=== PATIENT | female | born 1960 | race Caucasian/White ===

== ENCOUNTER 2022-10-11 15:02 | Outpatient (OUT) | payer MEDICARE, MEDICAID, SELFPAY | END 2022-10-11 15:03 | LOC: WC 15:02 | PROVIDERS: PCP Physician Assistant; Visit Provider Physician Assistant | DX: L97.812 Non-pressure chronic ulcer of other part of right lower leg with fat layer exposed (principal); L97.822 Non-pressure chronic ulcer of other part of left lower leg with fat layer exposed | CPT/HCPCS: 99213; A6213; G0463 ==

== ENCOUNTER 2022-11-08 14:41 | Outpatient (OUT) | payer MEDICARE, MEDICAID, SELFPAY | END 2022-11-08 14:42 | disposition home or self-care (01) | LOC: WC 14:41 | PROVIDERS: PCP Physician Assistant; Visit Provider Physician Assistant | DX: L97.822 Non-pressure chronic ulcer of other part of left lower leg with fat layer exposed (principal) | CPT/HCPCS: A6213; G0463 ==

== ENCOUNTER 2022-11-30 15:06 | Outpatient (OUT) | payer MEDICARE, MEDICAID, SELFPAY | END 2022-11-30 15:07 | disposition home or self-care (01) | LOC: WC 15:06 | PROVIDERS: PCP Physician Assistant; Visit Provider Podiatrist Foot & Ankle Surgery | DX: R60.0 Localized edema (principal); L97.822 Non-pressure chronic ulcer of other part of left lower leg with fat layer exposed | CPT/HCPCS: A6213; G0463 ==

== ENCOUNTER 2023-01-17 14:56 | Outpatient (OUT) | payer MEDICARE, MEDICAID, SELFPAY | END 2023-01-17 14:57 | disposition home or self-care (01) | LOC: WC 14:56 | PROVIDERS: PCP Physician Assistant; Visit Provider Physician Assistant | DX: R60.0 Localized edema (principal) | CPT/HCPCS: G0463 ==

== ENCOUNTER 2023-02-24 15:21 | Outpatient (OUT) | payer MEDICARE, MEDICAID, SELFPAY | END 2023-02-24 15:22 | disposition home or self-care (01) | LOC: WC 15:21 | PROVIDERS: PCP Physician Assistant; Visit Provider Physician Assistant | DX: E11.621 Type 2 diabetes mellitus with foot ulcer (principal); L97.522 Non-pressure chronic ulcer of other part of left foot with fat layer exposed | CPT/HCPCS: G0463 ==

== ENCOUNTER 2023-03-04 13:34 | Outpatient (REF) | payer MEDICARE, MEDICAID, SELFPAY ==
[2023-03-04 14:03] LABS: Bilirubin Urine NEGATIVE (NEGATIVE); Blood Urine TRACE-I (NEGATIVE); Clarity Urine SLIGHTLY CLOUDY (CLEAR); Color Urine LT. YELLOW (YELLOW); Glucose Urine UA 500 mg/dL (NEGATIVE); Ketones Urine NEGATIVE (NEGATIVE); Leukocyte Esterase Urine MODERATE (NEGATIVE); Nitrite Urine NEGATIVE (NEGATIVE); Protein Urine 30 mg/dL (NEG/TRACE); Urobilinogen Urine 0.2 EU/dL (0.2-1.0)
[2023-03-04 14:04] LABS: Urine Microscopic Indicated YES
[2023-03-04 14:12] LABS: Bacteria Urine SMALL #/HPF (NONE SEEN); Cast Seen? NONE SEEN #/LPF (NONE SEEN); Crystals Seen? None Seen #/HPF (None Seen); Mucus Urine NONE SEEN (NONE SEEN); RBC Urine 0-2 #/HPF (0-2); Squamous Epithelial Cell Urine RARE #/LPF (NONE/RARE); Urine Culture Indicated YES
== END 2023-03-04 13:35 | disposition home or self-care (01) ==
LOC: LAB 13:34
PROVIDERS: PCP Physician Assistant
DX: R82.998 Other abnormal findings in urine (principal)
CPT/HCPCS: 81001; 87086

== ENCOUNTER 2023-04-04 15:04 | Outpatient (OUT) | payer MEDICARE, MEDICAID, SELFPAY | END 2023-04-04 15:05 | disposition home or self-care (01) | LOC: WC 15:05 | PROVIDERS: PCP Physician Assistant; Visit Provider Physician Assistant | DX: R60.0 Localized edema (principal) | CPT/HCPCS: G0463 ==

== ENCOUNTER 2023-06-28 13:50 | Outpatient (OUT) | payer MEDICARE, MEDICAID, SELFPAY ==
[2023-06-30 14:09] LABS: QuantiFERON-TB Gold Plus Negative (Negative)
== END 2023-06-28 13:51 | disposition home or self-care (01) ==
LOC: LAB 13:50
DX: Z79.899 Other long term (current) drug therapy (principal)
CPT/HCPCS: 36415; 86480

== ENCOUNTER 2023-06-28 13:56 | Outpatient (OUT) | payer MEDICARE, MEDICAID, SELFPAY ==
[2023-06-28 14:25] LABS: Hematocrit 48.2 % (36.0-48.0); Hemoglobin 15.1 g/dL (12.0-16.0); Mean Corpuscular HGB Conc 31.3 g/dL (29.9-35.2); Mean Corpuscular Hemoglobin 32.2 pg (26.7-34.0); Mean Corpuscular Volume 102.8 fL (81.0-99.0); Mean Platelet Volume 8.4 fL (9.5-13.5); Platelet Count 202 10^3/uL (150-450); Red Blood Count 4.69 10^6/uL (4.20-5.40); Red Cell Distribution Width 13.5 % (11.0-15.0); White Blood Count 7.2 10^3/uL (4.0-11.0)
[2023-06-28 14:26] LABS: Bilirubin Urine NEGATIVE (NEGATIVE); Blood Urine NEGATIVE (NEGATIVE); Clarity Urine SL CLOUDY (CLEAR); Color Urine YELLOW (YELLOW); Glucose Urine UA 250 mg/dL (NEGATIVE); Ketones Urine NEGATIVE (NEGATIVE); Leukocyte Esterase Urine TRACE (NEGATIVE); Nitrite Urine NEGATIVE (NEGATIVE); Protein Urine 30 mg/dL (NEG/TRACE); Specific Gravity Urine >=1.030 (1.005-1.025); Urobilinogen Urine 0.2 EU/dL (0.2-1.0); pH Urine 5.5 (5.0-9.0)
[2023-06-28 14:33] LABS: Creatinine Urine Random 166.12 mg/dL (20.00-300.00); Protein Creatinine Ratio Urine 0.36
[2023-06-28 14:37] LABS: Bacteria Urine MODERATE #/HPF (NONE SEEN); Calcium Oxalate Crystals Urine RARE; Crystals Seen? Seen #/HPF (None Seen); Mucus Urine NONE SEEN (NONE SEEN); RBC Urine 0-2 #/HPF (0-2); Squamous Epithelial Cell Urine FEW #/LPF (NONE/RARE)
[2023-06-28 14:38] LABS: Cast Seen? NONE SEEN #/LPF (NONE SEEN)
[2023-06-28 14:51] LABS: Albumin Level 3.1 g/dL (3.4-5.0); Anion Gap 11.5; Calcium 8.8 mg/dL (8.5-10.1); Carbon Dioxide 30.2 mmol/L (21.0-32.0); Chloride 103 mmol/L (98-107); Estimated GFR (African America 59 (>=60); Estimated GFR (Non-African Ame 49 (>=60); Glucose 173 mg/dL (74-106); Magnesium 1.8 mg/dL (1.8-2.4); Phosphorus 4.4 mg/dL (2.6-4.7); Potassium 3.7 mmol/L (3.5-5.1); Sodium 141 mmol/L (136-145); Uric Acid 5.3 mg/dL (2.6-6.0)
[2023-06-29 12:10] LABS: PTH, Intact 31 pg/mL (15-65)
== END 2023-06-28 13:57 | disposition home or self-care (01) ==
LOC: LAB 13:57
PROVIDERS: Visit Provider Internal Medicine
DX: Z79.899 Other long term (current) drug therapy (principal); N18.30 Chronic kidney disease, stage 3 unspecified; E11.22 Type 2 diabetes mellitus with diabetic chronic kidney disease; I12.9 Hypertensive chronic kidney disease with stage 1 through stage 4 chronic kidney disease, or unspecified chronic kidney disease; N25.81 Secondary hyperparathyroidism of renal origin; E78.5 Hyperlipidemia, unspecified; R80.9 Proteinuria, unspecified
CPT/HCPCS: 36415; 80069; 81001; 82306; 82570; 83735; 83970; 84156; 84550; 85027; 86480

== ENCOUNTER 2023-10-27 05:37 | Emergency (ER) | payer MEDICARE, MEDICAID, SELFPAY ==
[2023-10-27] VITALS (45 sets, daily range): BP systolic 71–116; BP diastolic 45–97; PULSE 83–114; TEMP 37.2–37.4; O2SAT 76–94; BMI 53.7
--- NOTE | 2023-10-27 05:46 | ECG_ITS ---
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
--- NOTE | 2023-10-27 06:32 | US_ITS ---
[place] [id number] Patient Name: FELISHA DIALLO MRN: [id number] date: 1960 Sex: F Assigned Patient Location: ED.MAIN Current Patient Location: ER Accession/Order Number: [id number] Exam Date: 10/27/2023 07:00 Report Date: 10/27/2023 08:23 At the request of: KUNAL MOSLEY Procedure: US venous doppler LE RT EXAM: US venous doppler LE RT HISTORY: RLE swelling, pain COMPARISON: None. TECHNIQUE: Grayscale, color and Doppler FINDINGS: Region: Right leg Thrombus: None Flow: Normal Compressibility: Normal Augmentation: Normal Other: Extensive subcutaneous edema US/US venous doppler LE RT IMPRESSION: No deep or superficial vein thrombus in the right leg Electronically authenticated by: ALTAGRACIA ANN Date: 10/27/2023 08:23
--- NOTE | 2023-10-27 06:32 | US_ITS ---
The [place] [id number] Patient Name: FELISHA DIALLO MRN: [id number] date: 1960 Sex: F Assigned Patient Location: ED.MAIN Current Patient Location: ER Accession/Order Number: [id number] Exam Date: 10/27/2023 07:00 Report Date: 10/27/2023 08:24 At the request of: KUNAL MOSLEY Procedure: US arterial duplex LE LT EXAMINATION: US arterial duplex LE LT HISTORY: LLE pain, decreased pulse COMPARISON: No relevant comparison available. TECHNIQUE: Color duplex Doppler ultrasound evaluation analysis was performed in the usual manner. FINDINGS: Limited by patient body habitus Normal triphasic waveform throughout the right leg with no delayed systolic upstroke and no spectral broadening. Flow velocities range from 129 cm/s peak systolic in the common femoral artery to 31 cm/s in the distal posterior tibial artery No flow significant stenosis occlusion or aneurysm US/US arterial duplex LE LT IMPRESSION: No arterial abnormality observed Electronically authenticated by: ALTAGRACIA ANN Date: 10/27/2023 08:24
--- NOTE | 2023-10-27 06:33 | ED.FALL1 ---
HPI HPI - Fall General Chief Complaint: Fall Stated Complaint: fall Time Seen by Provider: 10/27/23 05:40 Source: patient Mode of arrival: ambulance Limitations: physical limitation History of Present Illness HPI Narrative: This 63-year-old female who is morbidly obese and a diabetic and lives alone who gets help from her neighbors is brought to the emergency department by EMS from home. The patient had 3 falls over the course of the evening. She states that the first time she fell she called EMS and they were able to get her back into her chair and she declined coming to the emergency department. The second time she fell she was able to get herself back up and the third time she fell she was again unable to get herself up and EMS was called again and she was brought to the emergency department. She states that she slid out of her chair because it was positioned wrong in the living room and it was unable to recline. She slipped down onto the stool of the chair and then fell off of the chair striking her head. She states that she gets around her house with a motorized wheelchair. She has recently been incontinent of urine. She is diabetic. Her neighbor comes and wraps her legs because she helps her at home and is a nurse. The patient states that during the course of the night she was having shaking chills and unable to get warm. She was trying to get to a thermometer when she fell. She denies any headache or neck pain. She is thirsty. She has had extensive abdominal surgery in the past with an abdominoplasty with complication and additional surgery. She has no nausea or vomiting at this time but occasionally has diarrhea. The patient's right lower extremity is markedly warm to the touch, erythematous and much larger than the left lower extremity. She states that she does have hidradenitis of the inguinal area and is on antibiotics for that. She also has neuropathy and has difficult time feeling her feet. She has a callus with an open area on the base of the right fifth metatarsal, plantar aspect. Her left lower extremity is markedly smaller than the right lower extremity and the foot is poorly sensate and cool to the touch. The patient also had vulvar cancer and has had radiation therapy to this area. Related Data Home Medications ?Medication ?Instructions ?Recorded ?Confirmed adalimumab 40 mg/0.4 mL 80 mg subcut Q12D 10/27/23 10/27/23 subcutaneous pen kit (Humira(CF) Pen) albuterol sulfate 90 mcg/actuation inhalation 10/27/23 aerosol inhaler alprazolam 0.5 mg tablet 0.5 mg PO BID 10/27/23 10/27/23 dapagliflozin propanediol 5 mg 5 mg PO .once daily 10/27/23 10/27/23 tablet (Farxiga) famotidine 20 mg tablet 20 mg PO Q12H 10/27/23 10/27/23 fluconazole 150 mg tablet 150 mg PO 10/27/23 fluticasone 500 mcg-salmeterol 50 1 inh inhalation Q12H 10/27/23 10/27/23 mcg/dose blistr powdr for inhalation fluticasone propionate 50 1 spray intranasal Q12H 10/27/23 10/27/23 mcg/actuation nasal spray,suspension gabapentin 300 mg capsule 300 mg PO TID 10/27/23 10/27/23 glipizide 10 mg tablet, extended 10 mg PO BID 10/27/23 10/27/23 release 24 hr insulin glargine 100 unit/mL (3 65 unit subcut 10/27/23 mL) subcutaneous pen (Lantus Solostar U-100 Insulin) lamotrigine 100 mg tablet 100 mg PO Q12H 10/27/23 10/27/23 montelukast 10 mg tablet 10 mg PO .once a day 10/27/23 10/27/23 rosuvastatin 10 mg tablet 10 mg PO .once daily 10/27/23 10/27/23 sulfamethoxazole 400 1 tab PO BID 10/27/23 10/27/23 mg-trimethoprim 80 mg tablet tirzepatide 10 mg/0.5 mL 10 mg subcut 10/27/23 subcutaneous pen injector (Senthil) tolterodine 4 mg capsule,extended 4 mg PO .once dailly 10/27/23 10/27/23 release 24 hr topiramate 200 mg tablet 100 mg PO BID 10/27/23 10/27/23 triamcinolone acetonide 0.1 % applic topical 10/27/23 topical cream venlafaxine 150 mg 150 mg PO BID 10/27/23 10/27/23 capsule,extended release 24 hr Allergies Allergy/AdvReac Type Severity Reaction Status Date / Time erythromycin base Allergy Intermediate swelling Verified 10/27/23 05:43 Opioid HPI Opioid Management Most Recent Pain and Opioid Data: No Data to Display Review of Systems ROS Status of ROS 10 or more systems reviewed and unremarkable except as noted in history and below Exam Narrative Exam Narrative: Vital signs and Nursing Notes reviewed: She is febrile, tachycardic, blood pressure is normal with a high diastolic blood pressure of 97 and pulse ox is moderately low at 92% on room air General: Awake, alert, oriented, morbidly obese female, GCS 15, no respiratory distress HEENT: Normocephalic atraumatic, mucous membranes are moist and dry, posterior pharynx is normal in appearance. Neck: Supple, no meningeal signs, no anterior or posterior cervical lymphadenopathy Chest: Lungs are clear to auscultation with good air entry, there is no wheezing rhonchi or rales appreciated no accessory muscle use, patient is speaking in complete sentences-no chest wall tenderness to palpation CVS: Regular rate and rhythm, tachycardic at 111 upon arrival, pulses are brisk and equal in the upper extremities ABD: Obese, soft, nondistended, there is a large pendulous pannus in the perineal area which is warm but nontender. I do not appreciate any necrotizing fasciitis in this area or in the labia or surrounding urethra- houser catheter was placed by the nursing staff with my assistance Extremities: The right lower extremity is tender from the thigh to the lower leg with marked erythema, no crepitus appreciated, there is swelling of the foot which is red, the toes are red and nontender. There is a callus on the plantar aspect of the right foot at the base of the fifth metatarsal that is open but not draining. The left lower extremity has diminished sensation and is cool to the touch. Patient is able to wiggle her toes. Posterior tibialis pulses were able to be doppled. Skin: Redness of the right lower extremity as described above, no petechia or purpura noted Neuro: No focal deficits Constitutional Vital Signs, click to edit/add: Last Vital Signs Temp 99.3 F 10/27/23 05:39 Pulse 111 H 10/27/23 05:39 Resp 20 10/27/23 05:39 BP 114/97 H 10/27/23 05:39 Pulse Ox 92 L 10/27/23 05:39 O2 Del Method Room Air 10/27/23 05:39 Course Vital Signs Vital signs: Vital Signs Temperature 99.3 F 10/27/23 05:39 Pulse Rate 111 H 10/27/23 05:39 Respiratory Rate 20 10/27/23 05:39 Blood Pressure 114/97 H 10/27/23 05:39 Pulse Oximetry 92 L 10/27/23 05:39 Oxygen Delivery Method Room Air 10/27/23 05:39 Temperature 99.3 F 10/27/23 05:39 Pulse Rate 111 H 10/27/23 05:39 Respiratory Rate 20 10/27/23 05:39 Blood Pressure 114/97 H 10/27/23 05:39 Pulse Oximetry 92 L 10/27/23 05:39 Oxygen Delivery Method Room Air 10/27/23 05:39 MDM - Fall ECG Data Attestation: I personally reviewed and interpreted this ECG as follows: (Atrial rhythm at 107 bpm, left axis deviation, nonspecific ST changes, no acute ST segment elevation or T wave inversion) Discharge Plan Discharge Chief Complaint: Fall Clinical Impression: Accidental fall from chair, Cellulitis of left leg Patient Disposition: Still a Patient Prescriptions / Home Meds: No Action dapagliflozin propanediol [Farxiga] 5 mg tablet 5 mg PO .once daily famotidine 20 mg tablet 20 mg PO Q12H fluconazole 150 mg tablet 150 mg PO fluticasone propion-salmeterol 500-50 mcg/dose blister with device 1 inh INHALATION Q12H fluticasone propionate 50 mcg/actuation spray,suspension 1 spray INTRANASAL Q12H gabapentin 300 mg capsule 300 mg PO TID glipizide 10 mg tablet extended release 24hr 10 mg PO BID insulin glargine [Lantus Solostar U-100 Insulin] 100 unit/mL (3 mL) insulin pen 65 unit SUBCUT lamotrigine 100 mg tablet 100 mg PO Q12H montelukast 10 mg tablet 10 mg PO .once a day rosuvastatin 10 mg tablet 10 mg PO .once daily sulfamethoxazole-trimethoprim 400-80 mg tablet 1 tab PO BID Mounjaro 10 mg/0.5 mL pen injector 10 mg SUBCUT tolterodine 4 mg capsule,extended release 24hr 4 mg PO .once dailly topiramate 200 mg tablet 100 mg PO BID venlafaxine 150 mg capsule,extended release 24hr 150 mg PO BID triamcinolone acetonide 0.1 % cream TOPICAL Humira(CF) Pen 40 mg/0.4 mL pen injector kit 80 mg SUBCUT Q12D alprazolam 0.5 mg tablet 0.5 mg PO BID albuterol sulfate 90 mcg/actuation HFA aerosol inhaler INHALATION Print Language: Bol[place]ian Referrals: SARA VALENTINO [Primary Care Provider] - 1 week
--- OUTSIDE RECORDS SUMMARY | 2023-10-27 06:34 | XMS_ITS | CCD ---
Author Organization [facility] Care Team Providers Care Fishing Tool Operator Name Role Phone LAURO BRODIE Sonu Unavailable Unavailable ELI HUNTER Unavailable Unavailable KAMIREDDY, ADIREDDY Unavailable Unavailable AHMAIndu SHOWKAT Unavailable Unavailable LISA TRAN K Unavailable Unavailable KAMIREDDY, ADIREDDY Unavailable Unavailable AVASTHI DESTINEE Unavailable Unavailable DABOUL, ISAM Unavailable Unavailable Sarah Valentino Primary Care Provider Jarret Peterson Admit Provider Jarret Peterson Attending Provider [phone] Nellie Gilbert Unavailable Elissa, Hetal Unavailable MD Sarah Valentino Primary Care Provider [phone] MD Julián Ortiz Attending Provider Unavailable Primary Care Provider UnavailSarah Adair MD Primary Care Provider Baldemar Lu III Unavailable [phone] Elissa, Hetal Unavailable George CASTRO, Tamie A Unavailable Sarah Valentino MD Primary Care Provider [phone] Baldemar Lu III Unavailable Elissa, Hetal Unavailable George CASTRO, Tamie A Unavailable Unavailable Primary Care Provider UnavailGracia METCALF, Lesia Unavailable Unavailable PROVIDER, UNKNOWN Attending Unavailable PROVIDER, UNKNOWN Admitting Unavailable Sarah Valentino Primary Care Unavailable Julián Ortiz Admitting Unavailable Julián Ortiz Attending Unavailable Julián Ortiz Attending Unavailable Ortiz, Julián Admitting Unavailable Valentino, Sarah Primary Care Unavailable Julián Ortiz Attending Unavailable Ortiz, Julián Admitting Unavailable Valentino, Sarah Primary Care Unavailable GRETCHEN CURRY Attending Unavailable ANTOINETTE, GRETCHEN Admitting Unavailable VALENTINO, SARAH Primary Care Unavailable HIGHLANDER, PETER D Attending Unavailable HIGHLANDER, PETER D Admitting Unavailable VALENTINO, SARAH Primary Care Unavailable VALENTINO, SARAH Primary Care Unavailable VALENTINO, SARAH Consulting Unavailable VALENTINO, SARAH Attending Unavailable VALENTINO, SARAH Admitting Unavailable ELISSA, HETAL Admitting Unavailable ELISSA, HETAL Consulting Unavailable ELISSA, HETAL Attending Unavailable VALENTINO, SARAH Primary Care Unavailable VALENTINO, SARAH Primary Care Unavailable ELISSA, HETAL Consulting Unavailable ELISSA, HETAL Attending Unavailable ELISSA, HETAL Admitting Unavailable HIGHLANDER, PETER D Attending Unavailable VALENTINO, SARAH Primary Care Unavailable HIGHLANDER, PETER D Admitting Unavailable VALENTINO, SARAH Primary Care Unavailable HIGHLANDER, PETER D Attending Unavailable HIGHLANDER, PETER D Admitting Unavailable VALENTINO, SARAH Primary Care Unavailable HIGHLANDER, PETER D Attending Unavailable HIGHLANDER, PETER D Admitting Unavailable HIGHLANDER, PETER D Attending Unavailable HIGHLANDER, PETER D Admitting Unavailable VALENTINO, SARAH Primary Care Unavailable HIGHLANDER, PETER D Attending Unavailable HIGHLANDER, PETER D Admitting Unavailable VALENTINO, SARAH Primary Care Unavailable VALENTINO, SARAH Primary Care Unavailable KIMBERLI CURRYLY Admitting Unavailable ANTOINETTE, GRETCHEN Attending Unavailable VALENTINO, SARAH Primary Care Unavailable HIGHLANDER, PETER D Attending Unavailable HIGHLANDER, PETER D Admitting Unavailable HIGHLANDER, PETER D Admitting Unavailable HIGHLANDER, PETER D Attending Unavailable VALENTINO, SARAH Primary Care Unavailable VALENTINO, SARAH Primary Care Unavailable LIAT Taveras, DR HIDALGO Consulting Unavailable LIAT ., DR HIDALGO Attending Unavailable LIAT ., DR HIDALGO Admitting Unavailable HEMANT MADRID Admitting Unavailable HEMANT MADRID Attending Unavailable VALENTINO, SARAH Primary Care Unavailable BEVERLEY, DR ERNIE Fontaine Consulting Unavailable PAM .HEMANT Consulting Unavailable VALENTINO, SARAH Primary Care Unavailable HIGHLANDER, PETER D Attending Unavailable HIGHLANDER, PETER D Admitting Unavailable PAM ., HEMANT Attending Unavailable VALENTINO, SARAH Primary Care Unavailable PAM ., HEMANT Admitting Unavailable ROYCE ROSENTHAL Consulting Unavailable VALENTINO, SARAH Primary Care Unavailable EVEN[place]ILLE, DR ALTAGRACIA Car Consulting Unavailable WEST, DR ALTAGRACIA Car Attending Unavailable WEST, DR ALTAGRACIA Car Admitting Unavailable DAVION MAURICE Consulting Unavailable MARIANA ZAMORA Attending Unavailab le MARIANA ZAMORA Referring Unavailab le VALENTINO, SARAH Primary Care Unavailable MARIANA ZAMORA Referring Unavailab le VALENTINO, [facility] Primary Care Unavailable MARIANA ZAMORA Attending Unavailab le MARIANA ZAMORA Attending Unavailab le MARIANA ZAMORA Referring Unavailab saloni VALENTINO, [facility] Primary Care Unavailable Chelsy CANALES, Sarah Primary Care Provider HETAL BOWERS Attending Unavailable HETAL BOWERS Admitting Unavailable ELI HUNTER Referring Unavailable Chelsy CANALES [facility] Provider [phone] Hetal Bowers MD Unavailable Sarah Valentino MD Unavailable Sarah Valentino MD Primary Care Provider SARAH VALENTINO Attending Unavailable SARAH VALENTINO Attending Unavailable MAURO BATES Attending Unavailable MAURO BATES Attending Unavailable SARAH VALENTINO Attending Unavailable Chelsy CANALES Sarah Primary [facility] Provider MARIANA ZAMORA Attending Unavailab saloni VALENTINO SARAH Primary Care Unavailable MARIANA ZAMORA Attending Unavailab saloni VALENTINO, SARAH Primary Care Unavailable BENNIE PAYNE Attending Unavailable CHELSY SARAH Primary Care Unavailable MARIANA ZAMORA Attending Unavailab saloni VALENTINO SARAH Primary Care Unavailable MARIANA ZAMORA Attending Unavailab saloni VALENTINO [facility] Primary Care Unavailable Allergies Allergy Classification Reported Allergen(s) Allergy Type Date of Onset Reaction(s) Facility Doxycycline (1 source) Doxycycline Drug Allergy 10-20-19 21 Unknown Reaction [facility] Unclassified (5 sources) erythromycin base; Translations: [erythromycin base] Allergy to substance 10-20-19 Unknown Reaction [facility] (7 sources) Corticosteroids Propensity to adverse reactions Hallucinations , heart race [facility] Other (20 sources) Doxycycline; Translations: [DOXYCYCLINE] Drug Allergy 10-20-19 Other: See Comments, Swelling [facility] (9 sources) Erythromycin; Translations: [erythromycin] Drug Allergy 05-13-19 18 Swelling [facility] Repository (20 sources) Azithromycin; Translations: [AZITHROMYCIN] Drug Allergy 07-19-19 21 Unknown [facility] (20 sources) Glucocorticoid preparation; Translations: [CORTICOSTEROIDS (GLUCOCORTICOIDS)] Drug Allergy 03-10-20 22 Unknown, Swelling [facility] (1 source) Doxycycline Drug Allergy 10-20-19 21 [facility] (1 source) Azithromycin Drug Allergy 07-19-19 [facility] (1 source) Corticosteroids Drug allergy (disorder) [facility] (1 source) Corticosteroids and derivatives Drug Intolerance 02-26-20 [facility] (1 source) House dust mite Allergy to substance 02-26-20 21 Unknown [facility] (1 source) Mold Extract Drug Allergy 02-26-20 Unknown [facility] (1 source) Prednisone Propensity to adverse reactions 09-22-19 23 [facility] (1 source) Erythorbic Acid Propensity to adverse reactions 05-27-19 15 Swelling [facility] Medications Current Medications Medication Drug Class(es) Dates Sig (Normalized) Sig (Original) acetaminophen 500 mg oral tablet (20 sources) Start: 02-02-2022 acetaminophen (TYLENOL) 500 mg tablet Acetaminophen Active 1500 MG PO Daily February 02, 2022 12:00am 0 02/02/2022 Active Start: 02-02-2022 take 1500 mg by mout h once daily Acetaminophen Active 1500 MG PO Daily February 02, 2022 12:00am acetaminophen (T ylenol) 325 MG tablet every 4 (four) hours. 0 Active take 3 tablets by mo uth twice daily as needed Acetaminophen 500 MG 3 tablet as needed Orally TWICE A DAY Active take 1 tablet by radha th every six hours as needed Acetaminophen 500 MG 1 tablet as needed Orally every 6 hrs Active Comment on above: Acetaminophen Active 1500 MG PO Daily February 02, 2022 12:00am acetaminophen 500 mg / diphenhydrAMINE hydrochloride 25 mg oral tablet (9 sources) Histamine-1 Receptor Antagonist Start: 2 take 2 tablets by mouth once daily at bedtime Diphenhydramine -Acetaminophen (Acetaminophen Pm) 25-500 mg Tablet Active 2 TAB PO Daily at bedtime February 02, 2022 12:00am Comment on above: 1 (one) time each da y at the same time. 0.4 ml adalimumab 100 mg/ml auto-injector (20 sources) Tumor Necrosis Factor Ezequiel Start: End: HUMIRA,CF, PEN 40 mg/0.4 mL pen kit Start: 10-19-2020 End: 02-02-2022 Adalimumab (Humira(Cf) Pen) 40 mg/0.4 mL pen injector kit Active 40 MG SUBCUT every week February 02, 2022 12:00am Takes on Tuesdays Humira Pen 40 MG /0.8ML as directed Subcutaneous ONCE A WEEK Active Humira Pen 40 MG /0.8ML as directed Subcutaneous Active Advair Diskus 100-50 MCG/DOSE (1 source) Advair Diskus 100-50 MCG/DOSE 1 Inhalation every 12 hrs Active Advair Diskus 500-50 MCG/DOSE (5 sources) take 1 puff(s) by inhalation twice daily Advair Diskus 500-50 MCG/DOSE 1 puff Inhalation Twice a day Active [id number] 200 actuat albuterol 0.09 mg/actuat metered dose inhaler (20 sources) beta2-Adrenergic Agonist Start: 02-02-2022 Albuterol Sulfate Active 1 INH INHALATION Q4H February 02, 2022 12:00am Start: 01-11-2022 albuterol HFA (PROVENTIL HFA, VENTOLIN HFA) 90 mcg/actuation inhaler albuterol (5 MG/ ML) 0.5% nebulizer solution as directed Inhalation 0 Active take 2 puff(s) by mo uth every four hours as needed albuterol HFA 90 mcg/act inhaler Inhale 2 puffs by mouth every 4 hours as needed. for 16 0 Active Ventolin HFA 108 (90 Base) MCG/ACT 1 puff Inhalation prn Active albuterol 0.833 mg/ml / ipratropium bromide 0.167 mg/ml inhalation solution (4 sources) Anticholinergic, beta2-Adrenergic Agonist Start: 05-17-2016 ipratropium-albuterol (DUONEB) 0.5 mg-3 mg(2.5 mg base)/3 mL nebu q 6 HR. 0 05/17/2016 Active Comment on above: q 6 HR. Albuterol 90 MCG/ACT (7 sources) take 1 puff(s) by inhalation every four hours Albuterol 90 MCG/ACT 1 puff Inhalation every 4 hrs Active ALPRAZolam 0.5 mg oral tablet (20 sources) Benzodiazepine Start: 01-09-2013 ALPRAZolam (XANAX) 0.5 mg tablet chlorhexidine gluconate 40 mg/ml medicated liquid soap (4 sources) Start: 12-07-2022 chlorhexidine (HIBICLENS) 4 % external liquid Lather onto affected areas on the body and rinse, avoid face, once a week in the shower 0 12/07/2022 Active Start: 12-07-2022 chlorhexidine (Hibiclens) 4 % external liquid Indications: Hidradenitis suppurativa Lather onto affected areas on the body and rinse, avoid face, once a week in the shower 473 mL 11 12/07/2022 Active Comment on above: Lather onto affected areas on the body and rinse, avoid face, once a week in the shower dapagliflozin 5 mg oral tablet (10 sources) Sodium-Glucose Cotransporter 2 Inhibitor Start: 04-29-20 End: 04-23-20 take 1 tablet by mouth in the morning dapagliflozin (Farxiga) 5 MG Indications: Type 2 diabetes mellitus with diabetic neuropathic arthropathy, with long-term current use of insulin (CMS/HCC) Take 1 tablet (5 mg) by mouth in the morning. 90 tablet 3 04/29/2023 04/23/2024 Active Start: 02-02-2022 End: 03-18-2022 FARXIGA 5 mg tablet docusate sodium 100 mg oral capsule (4 sources) Start: 09-22-2022 take 1 capsule by mouth once daily as needed docusate sodium (COLACE) 100 mg capsule Take 1 capsule by mouth once daily as needed. 0 09/22/2022 Active Comment on above: Take 1 capsule by mo uth once daily as needed. ergocalciferol 1.25 mg oral capsule (7 sources) Provitamin D2 Compound Start: 01-25-2022 take 1 capsule by mouth every week Ergocalciferol 1.25 MG (82004 UT) 1 capsule Orally Q week for 90 day(s) Dec, Active famotidine 20 mg oral tablet (20 sources) Histamine-2 Receptor Antagonist Start: 02-25-2022 famotidine (PEPCID) 20 mg tablet Start: 10-30-2020 take 20 mg by mouth twice fercho y Famotidine Active 20 MG PO Twice daily 60 October 30, 2020 12:00am take 1 tablet by radha th every twenty-four hours Famotidine 20 MG 1 tablet at bedtime as needed Orally Once a day Active fluconazole 150 mg oral tablet (20 sources) Azole Antifungal Start: 04-07-2023 End: 10-20-2023 take 1 tablet by mouth every week fluconazole (Diflucan) 150 MG tablet Indications: Hidradenitis suppurativa Take 1 tablet (150 mg) by mouth 1 (one) time per week 4 tablet 6 04/07/2023 10/20/2023 Active Start: 02-25-2022 fluconazole (D IFLUCAN) 100 mg tablet one time a week. 0 02/25/2022 Active Start: 02-02-2022 take 1 tablet by radha th twice daily Fluconazole (Diflucan) 100 mg tablet Active 100 MG PO 2 times daily February 02, 2022 11:46am takes on Sundays Start: 10-30-2020 End: 02-02-2022 Fluconazole (Diflucan) 100 m g Tablet Discontinued 100 MG PO As Directed October 30, 2020 1:21pm February 02, 2022 11:46am take once daily for two weeks then go back to once a week until your aerologist change it Start: 01-14-2017 End: 10-30-2020 take 1 tablet by mouth every week Fluconazole (Diflucan) 100 mg Tablet Discontinued 100 MG PO every week January 14, 2017 12:00am October 30, 2020 1:21pm take 1 tablet by radha th every week Diflucan 150 MG 1 tablet Orally ONCE A WEEK Active take 1 tablet by radha th once daily as needed Diflucan 150 MG 1 tablet Orally ONCE A DAY X 7 DAY NEEDED Active Comment on above: one time a week. fluticasone propionate 0.05 mg/actuat metered dose nasal spray (20 sources) Corticosteroid Start: 01-20-2023 take 2 spray(s) nasal route once daily fluticasone (Flonase) 50 MCG/ACT nasal spray Indications: Seasonal allergic rhinitis, unspecified trigger Instill 2 sprays in each nostril once daily. 15.8 mL 11 01/20/2023 Active Start: 02-16-2022 fluticasone (F LONASE) 50 mcg/actuation nasal spray Start: 12-01-2012 take 2 spray(s) nasa l route once daily Flonase 50 MCG/ACT 2 sprays Nasally Once a day for 30 day(s) Nov, Active 60 actuat fluticasone propionate 0.5 mg/actuat / salmeterol 0.05 mg/actuat dry powder inhaler (20 sources) Corticosteroid, beta2-Adrenergic Agonist Start: 06-02-2023 End: 07-02-2023 take 1 puff(s) by inhalation once Fluticasone-Salmeterol (Advair Diskus) 500-50 MCG/ACT aerosol powder Indications: Asthma Inhale 1 puff every 12 (twelve) hours 1 each 06/02/2023 07/02/2023 Active Start: 02-16-2022 fluticasone-sa lmeterol (ADVAIR) 500-50 mcg/dose dsdv Start: 02-02-2022 Fluticasone Pr opion-Salmeterol (Advair Diskus) 500-50 mcg/dose Blister With Device Active 1 INH INHALATION Twice daily February 02, 2022 12:00am take 1 puff(s) by in halation twice daily Advair Diskus 500-50 MCG/DOSE 1 puff Inhalation Twice a day Active 30 actuat fluticasone furoate 0.1 mg/actuat / vilanterol 0.025 mg/actuat dry powder inhaler (2 sources) Corticosteroid, beta2-Adrenergic Agonist take 1 puff(s) by inhalation once daily Breo Ellipta 100-25 MCG/INH 1 puff Inhalation Once a day Active gabapentin 300 mg oral capsule (14 sources) Anti-epileptic Agent Start: 06-14-19 24 gabapentin (NEURONTIN) 300 mg capsule Start: 12-21-2022 take 1 capsule by mo [facility] three times daily gabapentin (Neurontin) 300 MG capsule Indications: Type 2 diabetes mellitus with neurological manifestation (CMS/HCC) Take 1 capsule by mouth three times daily. 90 capsule 10 12/21/2022 Active Start: 01-14-2017 take 300 mg by mouth every eight hours Gabapentin Active 300 MG PO Q8H January 14, 2017 12:00am glipiZIDE er 10 mg 24 hr extended release oral tablet (20 sources) Sulfonylurea Start: 05-24-2023 take 2 tablets by mouth once daily at breakfast glipiZIDE XL (Glucotrol XL) 10 MG 24 hr tablet Indications: Type 2 diabetes mellitus with neurological manifestation (CMS/HCC) Take 2 tablets by mouth once daily with breakfast. 180 tablet 2 05/24/2023 Active Start: 02-25-2022 glipiZIDE (GLU COTROL XL) 10mg 24 hr tablet Start: 02-02-2022 take 10 mg by mouth once daily Glipizide Active 10 MG PO Daily February 02, 2022 12:00am take 1 tablet by radha th twice daily 30 minutes before breakfast glipiZIDE 10 MG 1 tablet 30 minutes before breakfast Orally TWICE A DAY Active take 1 tablet by radha th once daily 30 minutes before breakfast glipiZIDE 5 MG 1 tablet 30 minutes before breakfast Orally Once a day Active 3 ml insulin glargine 100 unt/ml pen injector (20 sources) Insulin Analog Start: 05-23-2023 End: 08-21-2023 insulin glargine (Lantus SoloStar) 100 UNIT/ML pen Indications: Type 2 Diabetes Mellitus Inject 65 Units under the skin at bedtime 58.5 mL 0 05/23/2023 08/21/2023 Active Start: 03-05-2022 LANTUS SOLOSTA R U-100 INSULIN 100 unit/mL (3 mL) 65 Units. 0 03/05/2022 Active Start: 03-05-2022 LANTUS SOLOSTA R U-100 INSULIN 100 unit/mL (3 mL) 25 Units. 0 03/05/2022 Active Start: 03-05-2022 LANTUS SOLOSTA R U-100 INSULIN 100 unit/mL (3 mL) Lantus SoloStar 100 UNIT/ML as directed Subcutaneous 65 UNITS ONCE A DAY Active Lantus SoloStar 100 UNIT/ML as directed Subcutaneous 55 UNITS ONCE A DAY Active Comment on above: 25 Units. 65 Units. ipratropium bromide 0.2 mg/ml inhalation solution (3 sources) Anticholinergic Ipratropium Brom gabriella 0.02 % as directed Inhalation prn Active lamoTRIgine 25 mg oral tablet (20 sources) Mood Stabilizer, Anti-epileptic Agent Start: 02-16-2022 lamoTRIgine (LAMICTAL) 25 mg tablet Start: 01-14-2017 take 50-200 mg by mo ut twice daily Lamotrigine (Lamictal) 100 mg Tablet Active 50 - 200 MG PO Twice daily January 14, 2017 12:00am LaMICtal 100 MG tablet every 12 (twelve) hours. 0 Active 3 ml liraglutide 6 mg/ml pen injector (20 sources) GLP-1 Receptor Agonist Start: 02-22-2023 inject 1.8 mg by subcutaneous injection at bedtime Victoza 18 MG/3ML injection Indications: Type 2 diabetes mellitus with diabetic neuropathic arthropathy, with long-term current use of insulin (CMS/HCC) Inject 1.8 mg under the skin at bedtime. 27 mL 2 02/22/2023 Active Start: 10-19-2020 End: 07-08-2023 VICTOZA 3-NINFA 0.6 mg/0.1 mL (18 mg/3 mL) Start: 10-19-2020 Liraglutide (V ictoza 3-Ninfa) 0.6 mg/0.1 mL (18 mg/3 mL) pen injector Active 0.8 MG SUBCUT Daily October 19, 2020 12:00am meloxicam 15 mg oral tablet (15 sources) Nonsteroidal Anti-inflammatory Drug Start: 01-14-2017 End: 03-18-2022 take 15 mg by mouth once daily Meloxicam Active 15 MG PO Daily February 02, 2022 12:00am Comment on above: Take 15 mg by mouth. montelukast 10 mg oral tablet (20 sources) Leukotriene Receptor Antagonist Start: 01-14-2017 End: 05-27-2024 montelukast (SINGULAIR) 10 mg tablet polyethylene glycol 3350 10680 mg powder for oral solution (20 sources) Osmotic Laxative Start: 05-12-2022 polyethylene glycol 3350 (MIRALAX) 17 gram/dose powder Take 17 g by mouth once daily. Dissolve dose in 4 - 8 ounces of liquid and take as directed. 235 g 2 05/12/2022 Active Comment on above: Take 17 g by mouth o nce daily. Dissolve dose in 4 - 8 ounces of liquid and take as directed. rosuvastatin calcium 10 mg oral tablet (20 sources) HMG-CoA Reductase Inhibitor Start: 01-14-2017 End: 05-27-2024 rosuvastatin (CRESTOR) 10 mg tablet sodium bicarbonate 650 mg oral tablet (1 source) Start: 12-18-2020 take 1 tablet by mouth every eight hours Sodium Bicarbonate 650 MG 1 tab(s) Orally tid for 90 day(s) Nov, Active 24 hr tolterodine tartrate 4 mg extended release oral capsule (20 sources) Cholinergic Muscarinic Antagonist Start: 02-22-2023 take 1 capsule by mouth once daily tolterodine LA (Detrol LA) 4 MG 24 hr capsule Indications: Overactive bladder Take 1 capsule by mouth once daily. 30 capsule 10 02/22/2023 Active Start: 02-25-2022 tolterodine ER (DETROL LA) 4 mg 24 hr capsule Start: 10-19-2020 End: 10-30-2020 take 4 mg by mouth once daily Tolterodine Discontinued 4 MG PO Daily October 19, 2020 12:00am October 30, 2020 1:04pm topiramate 200 mg oral table t (20 sources) Start: 02-25-2022 topiramate (TO PAMAX) 200 mg tablet Start: 02-02-2022 take 100 mg by mouth twice daily Topiramate Active 100 MG PO Twice daily February 02, 2022 12:00am Start: 10-30-2020 End: 02-02-2022 take 1 tablet by mouth once daily Topiramate (Topamax) 200 mg Tablet Discontinued 200 MG PO Daily 0 October 30, 2020 12:19pm February 02, 2022 11:55am Start: 01-14-2017 End: 10-30-2020 take 1 tablet by mouth twice daily Topiramate (Topamax) 200 mg Tablet Discontinued 200 MG PO Twice daily January 14, 2017 12:00am October 30, 2020 1:04pm take 2 tablets by mo uth twice daily Topamax 50 mg 2 tabs orally Twice a day Active take 4 tablets by mo uth twice daily Topamax 50 mg 4 tabs orally Twice a day Active Tylenol PM Extra Strength 500-25 MG (4 sources) take 2 tablets by mouth once daily at bedtime as needed Tylenol PM Extra Strength 500-25 MG 2 tablet at bedtime as needed Orally Once a day for 30 day(s) Active 7 actuat umeclidinium 0.0625 mg/actuat dry powder inhaler (11 sources) Anticholinergic Start: 05-24-2023 take 1 puff(s) by mouth once daily Umeclidinium [place] (Incruse Ellipta) 62.5 MCG/ACT aerosol powder Indications: Chronic obstructive pulmonary disease, unspecified COPD type (CMS/[facility]) Inhale 1 puff by mouth once daily. 30 each 3 05/24/2023 Active Start: 01-14-2017 take 62.5 ug by inha lation every twenty-four hours Umeclidinium (Incruse Ellipta) 62.5 mcg/actuation Blister With Device Active 1 INH INHALATION Q24H January 14, 2017 3:33pm Start: 01-14-2017 take 1 puff(s) by in halation once daily umeclidinium (INCRUSE ELLIPTA) 62.5 mcg/actuation inhaler Inhale 1 Puff as instructed once daily. 0 01/14/2017 Active Start: 01-14-2017 take 62.5 ug by inha lation every twenty-four hours Umeclidinium (Incruse Ellipta) 62.5 mcg/actuation Blister With Device Active 1 INH INHALATION Q24H January 14, 2017 12:00am take 1 puff(s) by in halation once daily Incruse Ellipta 62.5 MCG/ACT 1 puff Inhalation Once a day Active Comment on above: Inhale 1 Puff as ins tructed once daily. 24 hr venlafaxine 150 mg extended release oral capsule (20 sources) Serotonin and Norepinephrine Reuptake Inhibitor Start: 02-25-2022 venlafaxine ER (EFFEXOR XR) 150 mg 24 hr capsule Start: 10-30-2020 End: 02-02-2022 take 1 capsule by mouth once daily Venlafaxine (Effexor Xr) 75 mg capsule,extended release 24hr Discontinued 75 MG PO Daily October 30, 2020 12:00am February 02, 2022 11:39am Start: 01-14-2017 End: 10-30-2020 take 1 capsule by mouth once daily Venlafaxine (Effexor Xr) 150 mg Capsule,Extended Release 24hr Discontinued 150 MG PO Daily January 14, 2017 12:00am October 30, 2020 1:04pm Start: 11-07-2007 take 1 capsule by mo [facility] twice daily Venlafaxine (Effexor Xr) 150 mg Capsule,Extended Release 24hr Active 150 MG PO Twice daily February 02, 2022 12:00am Completed/Discontinued Medications Medication Drug Class(es) Dates Sig (Normalized) Sig (Original) cephalexin 500 mg oral capsule (13 sources) Cephalosporin Antibacterial Start: 08-31-2022 End: 07-08-2023 cephALEXin (KEFLEX) 500 mg capsule Start: 03-04-2022 End: 03-18-2022 cephALEXin (KEFLEX) 500 mg c apsule clotrimazole 10 mg/ml topical cream (10 sources) Azole Antifungal Start: 04-26-2023 End: 07-08-2023 clotrimazole (LOTRIMIN) 1 % cream Apply topically to affected area three times daily as needed. 45 g 3 04/26/2023 07/08/2023 Discontinued Start: 04-26-2023 clotrimazole ( Lotrimin) 1 % cream Apply topically to affected area three times daily as needed. 0 04/26/2023 Active Start: 03-21-2023 End: 07-01-2023 clotrimazole 1 % oint Indica tions: Vulvar candidiasis Apply to affected area three times a day as needed. 56.7 g 3 06/24/2023 07/01/2023 Discontinued Comment on above: Apply to affected ar ea three times a day as needed. Apply topically to a ffected area three times daily as needed. furosemide 40 mg oral tablet (20 sources) Loop Diuretic Start: 02-25-2022 End: 07-08-2023 furosemide (LASIX) 40 mg tablet take 1 tablet by [facility] once daily as needed Furosemide 20 MG 1 tablet Orally Once a day PRN for 90 days Not-Taking take 1 tablet by mouth once fercho y Furosemide 40 MG Take 1 tablet by mouth daily. for 90 Active lidocaine vaginal cream 5% (CPD) (20 sources) Start: 05-25-2022 End: 07-08-2023 lidocaine vaginal cream 5% ( CPD) Use vaginally as directed. 20 g 0 05/25/2022 07/08/2023 Discontinued Start: 05-25-2022 lidocaine vagi nal cream 5% (CPD) Use vaginally as directed. 20 g 0 05/25/2022 Active Start: 05-24-2022 End: 05-24-2022 lidocaine vaginal cream 5% ( CPD) Use vaginally as directed. 20 g 0 05/24/2022 05/24/2022 Discontinued Comment on above: Use vaginally as dir ected. lisinopril 10 mg oral tablet (3 sources) Angiotensin Converting Enzyme Inhibitor Start: 7 End: 1 take 2.5 mg by mouth once daily Lisinopril Discontinued 2.5 MG PO Daily January 14, 2017 12:00am October 30, 2020 1:04pm melatonin 5 mg oral tablet (20 sources) Start: 2 End: 4 melatonin 5 mg tablet Melatonin Active 5 MG PO Daily at bedtime February 02, 2022 12:00am 0 02/02/2022 07/08/2023 Discontinued take 1 tablet by [facility] every twenty-four hours Melatonin 3 MG 1 tablet at bedtime as needed Orally Once a day Active Comment on above: Melatonin Active 5 M G PO Daily at bedtime February 02, 2022 12:00am metFORMIN hydrochloride 1000 mg / SITagliptin 50 mg oral tablet (3 sources) Biguanide, Dipeptidyl Peptidase 4 Inhibitor Start: 7 End: 1 take 1 tablet by mouth twice daily Sitagliptin-Metformi n (Janumet) 50-1,000 mg Tablet Discontinued 1 TAB PO Twice daily January 14, 2017 12:00am October 30, 2020 1:04pm minocycline 50 mg oral capsule (4 sources) Tetracycline-class Drug Start: 4 End: 4 minocycline (MINOCIN, DYNACIN) 50 mg capsule Start: 06-01-2023 take 1 capsule by mo [facility] twice daily minocycline 50 MG capsule Indications: Hidradenitis suppurativa Take 1 capsule, by mouth, bid, 30 days 60 capsule 11 06/01/2023 Active nystatin 100 unt/mg topical powder (6 sources) Polyene Antifungal Start: 03-30-2023 End: 10-25-2023 nystatin (MYCOSTATIN) powder Start: 03-16-2023 nystatin (MYCO STATIN) powder Apply 1 application to affected area four times daily. 60 g 1 03/16/2023 Active Comment on above: Apply 1 application to affected area four times daily. silver sulfADIAZINE 10 mg/ml topical cream (20 sources) Sulfonamide Antibacterial Start: 05-24-19 End: 07-08-19 24 silver sulfADIAZINE (SILVADENE) 1 % cream Apply to area of skin breakdown twice daily and use moisturizer everywhere else. Test on small unaffected area first for reaction. 400 g 0 06/14/2022 07/08/2023 Discontinued Comment on above: Apply to area of ski n breakdown twice daily and use moisturizer everywhere else. Test on small unaffected area first for reaction. SITagliptin 25 mg oral tablet (3 sources) Dipeptidyl Peptidase 4 Inhibitor Start: 10-31-19 End: 02-03-20 take 25 mg by mouth once daily Sitagliptin Discontinued 25 MG PO Daily October 30, 2020 12:00am February 02, 2022 11:56am sulfamethoxazole 800 mg / trimethoprim 160 mg oral tablet (20 sources) Dihydrofolate Reductase Inhibitor Antibacterial, Sulfonamide Antimicrobial Start: 02-26-20 End: 07-08-19 24 sulfamethoxazole-tr imethoprim (BACTRIM DS,SEPTRA DS) 800-160 mg per tablet Start: 02-02-2022 take 1 tablet by radha once daily Sulfamethoxazole-Trimethoprim Active 160 TAB PO Twice daily February 02, 2022 11:59am administered after hemodialysis in dialysis days Start: 10-30-2020 End: 02-02-2022 take 1 tablet by mouth once Sulfamethoxazole-Trimethoprim Discontinu ed 160 TAB PO .PM 0 October 30, 2020 12:19pm February 02, 2022 11:59am administered after hemodialysis in dialysis days Start: 10-19-2020 End: 10-30-2020 take 1 tablet by mouth twice daily Sulfamethoxazole-Trimethoprim Discontinu ed 160 TAB PO Twice daily October 19, 2020 12:00am October 30, 2020 1:04pm tirzepatide (MOUNJARO) 7.5 mg/0.5 mL pen injector (3 sources) Start: 07-05-2023 End: 10-25-2023 tirzepatide (MOUNJARO) 7.5 m g/0.5 mL pen injector Inject 7.5 mg subcutaneously. 0 07/05/2023 10/25/2023 Discontinued Start: 07-05-2023 tirzepatide (M OUNJARO) 7.5 mg/0.5 mL pen injector Inject 7.5 mg subcutaneously. 0 07/05/2023 Active Comment on above: Inject 7.5 mg subcut aneously. traMADol hydrochloride 50 mg oral tablet (8 sources) Opioid Agonist Start: End: take 1 tablet by mouth every six hours as needed for pain traMADol (ULTRAM) 50 mg tablet Indications: Vulvar cancer (HCC) Take 1 tablet by mouth every 6 hours as needed for pain for up to 7 days. 30 tablet 0 06/14/2022 06/23/2022 Start: 05-24-2022 End: 06-01-2022 take 1 tablet by mouth every six hours as needed for pain traMADol (ULTRAM) 50 mg tablet Indications: Vulvar cancer (HCC) Take 1 tablet by mouth every 6 hours as needed for pain for up to 7 days. 30 tablet 0 05/24/2022 06/01/2022 Comment on above: Take 1 tablet by radha th every 6 hours as needed for pain for up to 7 days. Vitamin D (Cholecalciferol) 25 MCG (1000 UT) (3 sources) take 1 tablet by mouth once daily Vitamin D (Cholecalciferol) 25 MCG (1000 UT) 1 tablet Orally Once a day Not-Taking take 1 tablet by mouth once fercho y Vitamin D (Cholecalciferol) 25 MCG (1000 UT) 1 tablet Orally Once a day Active Problems Active Problems Problem Classification Problem Date Documented Date Episodic/Chronic Acquired foot deformities (1 source) Acquired hammer toe of left foot; Translations: [Other hammer toe(s) (acquired), left foot] Onset: 3 09-21-2022 Chronic Acquired foot deformities (1 source) Acquired hammer toe of right foot; Translations: [Other hammer toe(s) (acquired), right foot] Onset: 3 09-21-2022 Chronic Acute and unspecified renal failure (2 sources) Injury of kidney; Translations: [Acute kidney failure, unspecified] 10-20-2020 Episodic Administrative/social admission (2 sources) Other reduced mobility; Translations: [Impaired mobility and activities of daily living] 10-30-2020 Episodic Asthma (7 sources) Acute severe exacerbation of asthma; Translations: [Bronchial asthma with status asthmaticus] Chronic Cancer of other female genital organs (20 sources) Malignant tumor of vulva; Translations: [Malignant neoplasm of vulva, unspecified] Onset: 2 Chronic Cancer; other and unspecified primary (1 source) Personal history of malignant neoplasm of other organs and systems; Translations: [PERS HX MALIG NEOPLASM OTH ORGN AND SYS] Onset: 3 Episodic Chronic kidney disease (20 sources) Chronic kidney disease stage 1; Translations: [CKD Stage I (GFR>90)] Onset: 1 Resolved: 3 09-21-2022 Chronic Chronic obstructive pulmonary disease and bronchiectasis (9 sources) Chronic obstructive lung disease; Translations: [Chronic obstructive pulmonary disease, unspecified] Onset: 7 Chronic Chronic ulcer of skin (20 sources) Ulcer; Translations: [Ulcerative lesion] Onset: 2 01-17-2017 Chronic Deficiency and other anemia (7 sources) Anemia of renal disease; Translations: [Anemia in chronic kidney disease] Chronic Diabetes mellitus with complications (20 sources) Diabetic peripheral neuropathy; Translations: [Diabetic peripheral neuropathy] Onset: 5 Resolved: 2 Chronic Diabetes mellitus without complication (11 sources) Diabetes mellitus; Translations: [Type 2 diabetes mellitus without complications] Onset: 5 01-17-2017 Chronic Diseases of white blood cells (2 sources) Elevated white blood cell count, unspecified; Translations: [Leukocytosis] Onset: 8 11-05-2022 Chronic Disorders of lipid metabolism (15 sources) Hyperlipidemia; Translations: [Hyperlipidemia NOS] Onset: 3 Chronic Essential hypertension (6 sources) Essential (primary) hypertension; Translations: [Benign essential hypertension] Onset: 8 09-21-2022 Chronic Genitourinary symptoms and ill-defined conditions (1 source) Urge incontinence of urine; Translations: [Urge incontinence] Onset: 3 09-21-2022 Chronic Genitourinary symptoms and ill-defined conditions (2 sources) Dysuria; Translations: [Dysuria] Episodic Hemorrhoids (2 sources) Hemorrhoids; Translations: [Unspecified hemorrhoids] 10-30-2020 Episodic Hypertension with complications and secondary hypertension (16 sources) Chronic kidney disease due to hypertension; Translations: [Hypertensive chronic kidney disease with stage 1 through stage 4 chronic kidney disease, or unspecified chronic kidney disease] Onset: 2 Resolved: 2 Chronic Menopausal disorders (1 source) Menopausal symptom; Translations: [Menopausal and female climacteric states] Onset: 3 09-21-2022 Chronic Miscellaneous mental health disorders (4 sources) Primary insomnia; Translations: [Primary insomnia] Onset: 3 09-21-2022 Chronic Mood disorders (17 sources) Recurrent major depression; Translations: [Major depressive disorder, recurrent episode, unspecified] Onset: 8 09-21-2022 Chronic Mycoses (5 sources) Candidiasis of the esophagus; Translations: [Candidal esophagitis] 10-21-2020 Episodic Nutritional deficiencies (3 sources) Iron deficiency; Translations: [IRON DEFICIENCY] Onset: 2 Resolved: 2 Episodic Other aftercare (5 sources) History of malignant neoplasm of vulva; Translations: [Encounter for follow-up examination after completed treatment for malignant neoplasm] Episodic Other aftercare (1 source) Other halfway (current) drug therapy; Translations: [OTH CORD MAKER CURRENT DRUG THERAPY] Onset: 3 Episodic Other circulatory disease (2 sources) Low blood pressure; Translations: [Hypotension, unspecified] 10-20-2020 Episodic Other diseases of kidney and ureters (10 sources) Secondary hyperparathyroidism; Translations: [Secondary hyperparathyroidism of renal origin] Onset: 4 07-08-2023 Chronic Other diseases of kidney and ureters (6 sources) Secondary hyperparathyroidism of renal origin; Translations: [SEC HYPERPARATHYROIDISM RENAL ORIGN] Onset: 2 Resolved: 2 Chronic Other diseases of veins and lymphatics (4 sources) Chronic venous hypertension (idiopathic) with ulcer of right lower extremity; Translations: [CHRON VENOUS HTN W/ULCER RT LW EXT] Onset: 2 Chronic Other diseases of veins and lymphatics (5 sources) Chronic venous hypertension (idiopathic) with ulcer of bilateral lower extremity; Translations: [CHRON VENOUS HTN W/ULCER [place] LW EXT] Onset: 2 Chronic Other ear and sense organ disorders (1 source) Chronic eczema of external auditory canal; Translations: [Other otitis externa, bilateral] Onset: 3 09-21-2022 Chronic Other gastrointestinal disorders (1 source) Constipation; Translations: [Constipation, unspecified] Episodic Other injuries and conditions due to external causes (1 source) Open wound; Translations: [Other injury of unspecified body region, initial encounter] Episodic Other lower respiratory disease (1 source) Wheezing; Translations: [Wheezing] Episodic Other nervous system disorders (1 source) Disorder of the peripheral nervous system; Translations: [Hereditary and idiopathic neuropathy, unspecified] Onset: 3 09-21-2022 Chronic Other nervous system disorders (4 sources) Chronic pain syndrome; Translations: [Chronic pain syndrome] Onset: 3 09-21-2022 Chronic Other nervous system disorders (1 source) Chronic pain; Translations: [Other chronic pain] Onset: 3 09-21-2022 Chronic Other nervous system disorders (4 sources) Polyneuropathy; Translations: [Polyneuropathy, unspecified] Onset: 3 09-21-2022 Chronic Other non-traumatic joint disorders (1 source) Other specified arthritis, unspecified site; Translations: [OTHER SPECIFIED ARTHRITIS UNS SITE] Onset: 3 Chronic Other non-traumatic joint disorders (2 sources) Pain in unspecified knee; Translations: [Acute knee pain] 11-11-2020 Episodic Other nutritional; endocrine; and metabolic disorders (3 sources) Obesity; Translations: [Obesity, unspecified] 01-17-2017 Chronic Other nutritional; endocrine; and metabolic disorders (10 sources) Morbid obesity; Translations: [Morbid obesity] Onset: 8 07-08-2023 Chronic Other nutritional; endocrine; and metabolic disorders (2 sources) Severe obesity; Translations: [Morbid (severe) obesity due to excess calories] Chronic Other nutritional; endocrine; and metabolic disorders (1 source) Obesity caused by energy imbalance; Translations: [Morbid (severe) obesity due to excess calories] Onset: 3 09-21-2022 Chronic Other nutritional; endocrine; and metabolic disorders (1 source) Body mass index 40+ - severely obese; Translations: [Morbid (severe) obesity due to excess calories] Onset: 6 12-30-2022 Chronic Other nutritional; endocrine; and metabolic disorders (3 sources) Excess panniculus of abdomen; Translations: [Localized adiposity] 06-22-2023 Chronic Other upper respiratory disease (1 source) Seasonal allergic rhinitis; Translations: [Other seasonal allergic rhinitis] Onset: 3 09-21-2022 Chronic Residual codes; unclassified (10 sources) Sleep apnea; Translations: [Sleep apnea] Onset: 4 07-08-2023 Chronic Residual codes; unclassified (1 source) Dependence on enabling machine or device; Translations: [Dependence on other enabling machines and devices] Onset: 3 09-21-2022 Chronic Residual codes; unclassified (1 source) Hypersomnia; Translations: [Hypersomnia, unspecified] Onset: 3 09-21-2022 Chronic Residual codes; unclassified (1 source) Hypoxia; Translations: [Idiopathic sleep related nonobstructive alveolar hypoventilation] Onset: 3 09-21-2022 Chronic Residual codes; unclassified (1 source) Obstructive sleep apnea syndrome; Translations: [Obstructive sleep apnea (adult) (pediatric)] Onset: 3 09-21-2022 Chronic Residual codes; unclassified (1 source) Idiopathic sleep related non-obstructive alveolar hypoventilation; Translations: [Idiopathic sleep related nonobstructive alveolar hypoventilation] Onset: 1 11-05-2022 Chronic Residual codes; unclassified (1 source) Localized edema; Translations: [LOCALIZED EDEMA] Onset: Episodic Respiratory failure; insufficiency; arrest (adult) (1 source) Acute on chronic hypoxemic and hypercapnic respiratory failure; Translations: [Acute and chronic respiratory failure with hypoxia] Onset: 8 11-05-2022 Chronic Skin and subcutaneous tissue infections (3 sources) Cutaneous abscess of abdominal wall; Translations: [Cellulitis of abdominal wall] Onset: 2 Episodic Substance-related disorders (5 sources) Moderate smoker (20 or less per day) ; Translations: [Nicotine dependence, cigarettes, uncomplicated] Onset: 5 Chronic Unclassified (1 source) Unspecified intestinal obstruction, unspecified as to partial versus complete obstruction; Translations: [Unspecified intestinal obstruction, unspecified as to partial versus complete obstruction] Onset: 8 Unclassified (1 source) Encounter for preprocedural laboratory examination; Translations: [Encounter for preprocedural laboratory examination] Onset: 2 Unclassified (1 source) CHRN KIDNEY DISEASE STG 3 UNSP; Translations: [CHRN KIDNEY DISEASE STG 3 UNSP] Onset: 3 Urinary tract infections (4 sources) Urinary tract infection, site not specified; Translations: [Acute urinary tract infection] Onset: 8 05-12-2017 Episodic Past or Other Problems Problem Classification Problem Date Documented Da te Episodic/Chronic Abdominal hernia (1 source) Obstructed hernia of anterior abdominal wall; Translations: [Other and unspecified ventral hernia with obstruction, without gangrene] Onset: 8 11-05-2022 Episodic Abdominal pain (1 source) Vulval pain; Translations: [Pelvic and perineal pain] Onset: 4 11-05-2022 Episodic Calculus of urinary tract (4 sources) Calculus of kidney; Translations: [Kidney stone] Onset: 8 10-30-2020 Episodic Cancer of other female genital organs (2 sources) Personal history of malignant neoplasm of other female genital organs; Translations: [Encounter for follow-up surveillance of vulvar cancer] Onset: 3 Episodic Cardiac dysrhythmias (1 source) Tachycardia, unspecified; Translations: [Tachycardia, unspecified] Onset: 8 Episodic Chronic kidney disease (9 sources) Chronic kidney disease; Translations: [Chronic kidney disease, stage III (moderate)] Onset: 2 Resolved: 2 Complications of surgical procedures or medical care (4 sources) Postprocedural respiratory failure; Translations: [Acute postprocedural respiratory failure] Onset: 8 11-05-2022 Episodic E Codes: Fall (3 sources) Unspecified fall, initial encounter; Translations: [Accident due to mechanical fall without injury] Onset: 2 11-11-2020 Episodic Fluid and electrolyte disorders (10 sources) Acidosis; Translations: [Metabolic acidosis] Onset: 2 Resolved: 2 Episodic Gastrointestinal hemorrhage (13 sources) Acute gastrointestinal hemorrhage; Translations: [Gastrointestinal hemorrhage, unspecified] Onset: 8 Episodic Inflammatory diseases of female pelvic organs (7 sources) Abscess of vulva; Translations: [Abscess of vulva] Onset: 2 Episodic Intestinal obstruction without hernia (4 sources) Small bowel obstruction; Translations: [Unspecified intestinal obstruction, unspecified as to partial versus complete obstruction] Onset: 8 05-12-2017 Episodic Nausea and vomiting (1 source) Nausea; Translations: [Nausea] Onset: 8 Episodic Other aftercare (2 sources) Encounter for follow-up examination after completed treatment for malignant neoplasm; Translations: [Encounter for follow-up surveillance of vulvar cancer] Onset: 3 Episodic Other aftercare (1 source) terminal clerk (current) use of insulin; Translations: [Type 2 diabetes mellitus with diabetic dermatitis, with long-term current use of insulin (HCC)] Onset: 2 Episodic Other aftercare (4 sources) Long-term current use of insulin; Translations: [senior living (current) use of insulin] Onset: 1 11-05-2022 Episodic Other circulatory disease (1 source) Erythromelalgia; Translations: [Erythromelalgia] Onset: 3 Resolved: 3 01-21-2023 Chronic Other circulatory disease (1 source) Peripheral vascular complication; Translations: [Unspecified disorder of circulatory system] Onset: 3 09-21-2022 Episodic Other connective tissue disease (1 source) Recurrent falls ; Translations: [Repeated falls] Onset: 3 09-21-2022 Episodic Other diseases of veins and lymphatics (1 source) Peripheral venous insufficiency; Translations: [Venous insufficiency (chronic) (peripheral)] Onset: 3 09-21-2022 Episodic Other inflammatory condition of skin (1 source) Erythema; Translations: [Erythematous condition, unspecified] Onset: 3 09-21-2022 Episodic Other skin disorders (1 source) Acne keloid; Translations: [Other acne] Onset: 3 09-21-2022 Episodic Other skin disorders (4 sources) Hidradenitis suppurativa; Translations: [Hidradenitis suppurativa] Onset: 3 09-21-2022 Episodic Other skin disorders (1 source) Acne conglobata; Translations: [Acne conglobata] Onset: 8 11-05-2022 Episodic Irasema-; endo-; and myocarditis; cardiomyopathy (except that caused by tuberculosis or sexually transmitted disease) (5 sources) Pericardial effusion; Translations: [Pericardial effusion] Onset: 4 10-20-2020 Episodic Residual codes; unclassified (6 sources) Edema of lower extremity; Translations: [Localized edema] Onset: 3 01-17-2017 Episodic Spondylosis; intervertebral disc disorders; other back problems (1 source) Low back pain; Translations: [Low back pain] Onset: 3 09-21-2022 Episodic Superficial injury; contusion (5 sources) Abrasion of left elbow, initial encounter; Translations: [Abrasion, left lesser toe(s), initial encounter] Onset: 2 Episodic Unclassified (2 sources) Other specified abnormal findings of blood chemistry; Translations: [Increased lactic acid level] Onset: 8 11-05-2022 Episodic Varicose veins of lower extremity (4 sources) Varicose veins of bilateral lower extremities with pain; Translations: [VARICOSE VNS [place] LOW EXTREM W/PAIN] Onset: 2 Episodic Results Test Name Value Interpretation Reference Range Facility [facility] 10-19-2023 [facility] Visit (SP) Office (Abena KHANNA) -- FELISHA DIALLO ([id number]) 1960 F Date Time Provider Department 10/19/23 2:15 PM MARIANA ZAMORA GYNOSA During your visit today, we recorded the following information about you: Temperature Pulse Respiration Blood pressure 97.6 degrees 96/minute 18/minute 88/58 Mariana Zamora MD 10/25/2023 1:40 PM Signed DATE OF SERVICE: 10/19/2023 REASON FOR VISIT: Surveillance follow up DIAGNOSIS: Vulvar Cancer HPI: 1.Felisha Diallo is a 62 year old female with pmh significant for chronic migraine, COPD, poorly controlled Type 2 DM, hydradenitis, largely wheelchair dependent and a former smoker. Presents today for follow up for her recently diagnosed squamous cell carcinoma. Patient underwent a biopsy of a right vulvar mass on 02/11/22. Initially she presented to the ER with complaints of a right labial abscess or cyst that was present for months until it had opened when wiping and observed a large amount of blood from the area. She saw bacon skinner who referred her to general surgery for a biopsy. Biopsy confirmed invasive SCC. 2. 03/16/22 PET scan with no evidence of metastasis. 3. 04/02/20[address] consult with Dr. Garcia. 4. 05/03/2022: start of EBRT - COURSE: definitive AREA TREATED: vulva CURRENT DOSE: 5085 cGy in 29 fx PLANNED DOSE: 5085 cGy in 29 fx Date of last visit: 03/16/23 [facility] Outside path review : 02/12/2022 FINAL DIAGNOSIS Vaginal mass, right, biopsy ([id number], 02/11/2022, A1-A2): -Invasive squamous cell carcinoma, HPV-associated. OBSTETRIC/ GYNECOLOGY HISTORY: Last Pap: 06/2021 NILM and HPV negative Last HPV: 06/2021 PAST MEDICAL HISTORY Diagnosis Date Asthma Bipolar depression (HCC) Chronic kidney disease, stage III (moderate) (HCC) COPD (chronic obstructive pulmonary disease) (HCC) DM (diabetes mellitus), type 2 (HCC) High blood cholesterol Migraines Sleep disorder Recent blood sugars : 190-220 07/2020 - severe bacterial pneumonia resulting in sepsis hospitalized [facility] Renal failure following this admission PAST SURGICAL HISTORY Procedure Laterality Date BOWEL RESECTION HX 2017 Family History Problem Relation Age of Onset Diabetes Mother Heart Failure Mother Emphysema Father Obstructive Sleep Apnea Father Cancer Maternal Grandmother Parkinson?s Disease Paternal Grandmother Heart Attack Paternal Grandfather RECENT IMAGIN08/18/2021 Pelvic US Impression: Exam slightly limited by patient body habitus Mildly thickened endometrium for patient's age (7mm) 03/16/2022 PET IMPRESSION: 1. NECK: No FDG avid neoplastic process. No mass, adenopathy, or fluid collection. 2. CHEST: No FDG avid neoplastic process. No mass, adenopathy, or fluid collection. 3. ABDOMEN/PELVIS: No definite abnormal uptake is identified in the vulvar region, likely related to the configuration and size of the patient's known malignancy/lesion. No hypermetabolic lymphadenopathy. 4. EXTREMITIES/SKELETON: No FDG avid osseous process. No destructive/traumatic bony abnormality. 09/24/2022 PET IMPRESSION: 1. HEAD and NECK: No evidence of focal uptake to suggest FDG avid neoplastic process.. 2. CHEST: No evidence of focal uptake to suggest FDG avid neoplastic process.. 3. ABDOMEN/PELVIS: No evidence of focal uptake to suggest FDG avid neoplastic process.. 4. EXTREMITIES/SKELETON: No evidence of focal uptake to suggest FDG avid neoplastic process.. HEALTH MAINTENANCE: Last mammogram: not discussed at this visit Last colonoscopy: not discussed at this visit ECOG performance status ECOG PERFORMANCE STATUS: 4- Completely disabled. Cannot carry on any selfcare. Totally confined to bed/chair. SUBJECTIVE/INTERVAL HISTORY: Reports continued dermatologic problems of the vulva and groin, recently oral abx were decreased by her aerologist. Denies any bleeding. Patient states she has a boil near her tailbone. She is having urine incontinence. Bowel movements are getting better. No shortness of breath except when outside. Recently saw plastic surgery who would like to see her after some weight loss anticipated from starting mounjaro. Her ECOG performance status is 3 (capable of only limited selfcare, confined to bed or chair more than 50% of waking hours). OBJECTIVE: VITALS: BP 88/58 Pulse 96 Temp (Src) 97.6 (Temporal) Resp 18 SpO2 94% PELVIC: Very large pannus with lymphedema. Vulva normal appearing s/p external radiation. No new lesions identified. ASSESSMENT: 63 year old female with pmh significant for chronic migraine, COPD, poorly controlled Type 2 DM, hydradenitis, obesity, chronic venous stasis lower extremities, largely wheelchair dependent and a former smoker. Presents today for follow up if radiologic stage IB squamous cell carcinoma of the vulva. Due to location of (more content not included)... Normal [facility] 07[facility]08-2023 [facility] Office Visit ([facility] ) -- FELISHA DIALLO ([id number]) 1960 F Date Time Provider Department 07/08/23 4:00 PM BENNIE PAYNE PLASMN During your visit today, we recorded the following information about you: Pulse Blood pressure Weight Height 92/minute 119/76 160.6 kg 1.651 m Bennie Payne MD 07/13/2023 9:01 AM Signed CC: Consult for PANNICULECTOMY Referred by Mariana Zamora MD, Gynecology HPI: Felisha Diallo is a 63 year old female presenting today for surgical evaluation for removal of excess skin of the abdomen. Diagnosis with vulvar cancer Patient had biopsy of a right vulvar mass on 02/11/22, biopsy confirmed invasive SCC [facility] Outside path review : 02/12/2022 FINAL DIAGNOSIS Vaginal mass, right, biopsy ([id number], 02/11/2022, A1-A2): -Invasive squamous cell carcinoma, HPV-associated. Received external radiation 05/03/2022 06/16/2022: start of EBRT Dr. Garcia - COURSE: definitive AREA TREATED: vulva CURRENT DOSE: 5085 cGy in 29 fx Stopped after 5085Gy d/t skin toxicity Reports ledbetter from radiation that have not healed Patient is largely wheelchair dependent. States she can't walk because her abdominal skin catches on the sides and trips her She sees dermatology for management of hidradenitis Reports cellulitis on legs and also neuropathy She has received dialysis for kidney failure Hx of Bariatric Surgery: denies Abdominal surgeries: yes, panniculectomy in 1999 (reports 25 lbs off abdomen) Medical history includes: Chronic migraine, COPD, type 2 DM (recent A1C 6.3), hidradenitis, morbid obesity Patient was recently started on Ozempic Personal or family hx of DVT/PE or clotting disorder: denies DM: yes type 2, last A1C 6.3 per patient Hx of smoking: yes, stopped smoking 7 years ago Patient has COPD Problems related to skin excess: Takes fluconazole daily at baseline for vulvar candidiasis and is using nystatin powder Intertrigo: yes The excess skin interferes with: Bathing: yes, reports she has a hard time cleansing this area as she is unable to fully reach Dressing yes has to wear underwear and pants backwards Daily routines: yes, she cannot walk and is wheelchair dependent Reports excess skin of abdomen limits her daily function and quality of life TREATMENTS: Has tried the following without significant improvement in her symptoms: Skin ulceration/Intertrigo: yes Topical or oral antifungal agents: Type: nystatin Participation in medically supervised weight loss program: Yes: states she is beginning Ozempic PAIN: yes OB HISTORY: PARA:1 Lives in: [facility] RECENT IMAGIN08/18/2021 Pelvic US Impression: Exam slightly limited by patient body habitus Mildly thickened endometrium for patient's age (7mm) 03/16/2022 PET IMPRESSION: 1. NECK: No FDG avid neoplastic process. No mass, adenopathy, or fluid collection. 2. CHEST: No FDG avid neoplastic process. No mass, adenopathy, or fluid collection. 3. ABDOMEN/PELVIS: No definite abnormal uptake is identified in the vulvar region, likely related to the configuration and size of the patient's known malignancy/lesion. No hypermetabolic lymphadenopathy. 4. EXTREMITIES/SKELETON: No FDG avid osseous process. No destructive/traumatic bony abnormality. 09/24/2022 PET IMPRESSION: 1. HEAD and NECK: No evidence of focal uptake to suggest FDG avid neoplastic process.. 2. CHEST: No evidence of focal uptake to suggest FDG avid neoplastic process.. 3. ABDOMEN/PELVIS: No evidence of focal uptake to suggest FDG avid neoplastic process.. 4. EXTREMITIES/SKELETON: No evidence of focal uptake to suggest FDG avid neoplastic process. ALLERGIES Allergen Reactions Azithromycin Unknown Corticosteroids (Gl* Swelling Doxycycline Other: See Comments, Swelling PAST MEDICAL HISTORY Diagnosis Date Asthma Bipolar depression (HCC) Chronic kidney disease, stage III (moderate) (HCC) COPD (chronic obstructive pulmonary disease) (HCC) DM (diabetes mellitus), type 2 (HCC) High blood cholesterol Migraines Sleep disorder PAST SURGICAL HISTORY Procedure Laterality Date BOWEL RESECTION 2016 chlorhexidine (HIBICLENS) 4 % external liquid Lather onto affected areas on the body and rinse, avoid face, once a week in the shower docusate sodium (COLACE) 100 mg capsule Take 1 capsule by mouth once daily as needed. ipratropium-albuterol (DUONEB) 0.5 mg-3 mg(2.5 mg base)/3 mL nebu q 6 HR. nystatin (MYCOSTATIN) powder tirzepatide (MOUNJARO) 7.5 mg/0.5 mL pen injector Inject 7.5 mg subcutaneously. umeclidinium (INCRUSE ELLIPTA) 62.5 mcg/actuation inhaler Inhale 1 Puff as instructed once daily. polyethylene glycol 3350 (MIRALAX) 17 gram/dose powder Take 17 g by mouth once daily. Dissolve dose in 4 - 8 ounces of liquid and take as directed. LANTUS SOLOSTAR U-100 INSULIN 100 unit/mL (3 mL) 65 Units. (more content not included)... Normal [facility] CNOVSPon 06-22-2023 OVS Visit (SP) Office (Abena KHANNA) -- FELISHA DIALLO ([id number]) 1960 F Date Time Provider Department 06/22/23 2:15 PM MARIANA ZAMORA During your visit today, we recorded the following information about you: Temperature Pulse Respiration Blood pressure 97.8 degrees 91/minute 18/minute 110/72 Mariana Zamora MD 06/28/2023 12:05 PM Signed DATE OF SERVICE: 06/22/2023 REASON FOR VISIT: Surveillance follow up DIAGNOSIS: Vulvar Cancer HPI: 1Juliann Diallo is a 62 year old female with pmh significant for chronic migraine, COPD, poorly controlled Type 2 DM, hydradenitis, largely wheelchair dependent and a former smoker. Presents today for follow up for her recently diagnosed squamous cell carcinoma. Patient underwent a biopsy of a right vulvar mass on 02/11/22. Initially she presented to the ER with complaints of a right labial abscess or cyst that was present for months until it had opened when wiping and observed a large amount of blood from the area. She saw bacon skinner who referred her to general surgery for a biopsy. Biopsy confirmed invasive SCC. 2. 03/16/22 PET scan with no evidence of metastasis. 3. 04/02/[address] consult with Dr. Garcia. 4. 05/03/2022: start of EBRT - COURSE: definitive AREA TREATED: vulva CURRENT DOSE: 5085 cGy in 29 fx PLANNED DOSE: 5085 cGy in 29 fx Date of last visit: 03/16/23 [facility] Outside path review : 02/12/2022 FINAL DIAGNOSIS Vaginal mass, right, biopsy (S [id number], 02/11/2022, A1-A2): -Invasive squamous cell carcinoma, HPV-associated. OBSTETRIC/ GYNECOLOGY HISTORY: Last Pap: 06/2021 NILM and HPV negative Last HPV: 06/2021 PAST MEDICAL HISTORY Diagnosis Date Asthma Bipolar depression (HCC) Chronic kidney disease, stage III (moderate) (HCC) COPD (chronic obstructive pulmonary disease) (HCC) DM (diabetes mellitus), type 2 (HCC) High blood cholesterol Migraines Sleep disorder Recent blood sugars : 190-220 07/2020 - severe bacterial pneumonia resulting in sepsis hospitalized [facility] Renal failure following this admission PAST SURGICAL HISTORY Procedure Laterality Date BOWEL RESECTION HX 2017 Family History Problem Relation Age of Onset Diabetes Mother Heart Failure Mother Emphysema Father Obstructive Sleep Apnea Father Cancer Maternal Grandmother Parkinson?s Disease Paternal Grandmother Heart Attack Paternal Grandfather RECENT IMAGIN08/18/2021 Pelvic US Impression: Exam slightly limited by patient body habitus Mildly thickened endometrium for patient's age (7mm) 03/16/2022 PET IMPRESSION: 1. NECK: No FDG avid neoplastic process. No mass, adenopathy, or fluid collection. 2. CHEST: No FDG avid neoplastic process. No mass, adenopathy, or fluid collection. 3. ABDOMEN/PELVIS: No definite abnormal uptake is identified in the vulvar region, likely related to the configuration and size of the patient's known malignancy/lesion. No hypermetabolic lymphadenopathy. 4. EXTREMITIES/SKELETON: No FDG avid osseous process. No destructive/traumatic bony abnormality. 09/24/2022 PET IMPRESSION: 1. HEAD and NECK: No evidence of focal uptake to suggest FDG avid neoplastic process.. 2. CHEST: No evidence of focal uptake to suggest FDG avid neoplastic process.. 3. ABDOMEN/PELVIS: No evidence of focal uptake to suggest FDG avid neoplastic process.. 4. EXTREMITIES/SKELETON: No evidence of focal uptake to suggest FDG avid neoplastic process.. HEALTH MAINTENANCE: Last mammogram: not discussed at this visit Last colonoscopy: not discussed at this visit ECOG performance status ECOG PERFORMANCE STATUS: 4- Completely disabled. Cannot carry on any selfcare. Totally confined to bed/chair. SUBJECTIVE/INTERVAL HISTORY: Reports continued dermatologic problems of the vulva and groin, was recommended soap from aerologist that she was unable to obtain through insurance. Also has been unable to get an aid to help wash her vulvar area and groin as there are none available. States she was discharged from wound clinic and is having neighbor change dressings on her legs as she is unable to do so. Being followed for depression which she states she has been struggling with recently. States she had previous referral to Plastic Surgery to discuss panniculectomy but her insurance would not cover it. Will be starting Ozempic soon to help with glucose control. Her ECOG performance status is 3 (capable of only limited selfcare, confined to bed or chair more than 50% of waking hours). OBJECTIVE: VITALS: BP 110/72 Pulse 91 Temp (Src) 97.8 (Temporal) Resp 18 SpO2 99% PELVIC: Very large pannus with lymphedema. Vulva normal appearing s/p external radiation. No new lesions identified. ASSESSMENT: 63 year old female with pmh significant for chronic migraine, COPD, poorly controlled Type 2 DM, (more content not included)... Normal [facility] CNOVSPon 03-16-2023 CNOVSP Visit (SP) Office (Abena YDEEPASA) -- FELISHA DIALLO ([id number]) 1960 F Date Time Provider Department 03/16/23 2:15 PM MARIANA ZAMORA During your visit today, we recorded the following information about you: Temperature Pulse Respiration Blood pressure 97.4 degrees 104/minute 20/minute 90/64 Mariana Zamora MD 03/16/2023 4:39 PM Signed DATE OF SERVICE: 03/16/2023 REASON FOR VISIT: Surveillance follow up DIAGNOSIS: Vulvar Cancer HPI: 1.Felisha Diallo is a 62 year old female with pmh significant for chronic migraine, COPD, poorly controlled Type 2 DM, hydradenitis, largely wheelchair dependent and a former smoker. Presents today for follow up for her recently diagnosed squamous cell carcinoma. Patient underwent a biopsy of a right vulvar mass on 02/11/22. Initially she presented to the ER with complaints of a right labial abscess or cyst that was present for months until it had opened when wiping and observed a large amount of blood from the area. She saw bacon skinner who referred her to general surgery for a biopsy. Biopsy confirmed invasive SCC. 2. 03/16/22 PET scan with no evidence of metastasis. 3. 04/02/[address] onc[address] consult with Dr. Garcia. 4. 05/03/2022: start of EBRT - COURSE: definitive AREA TREATED: vulva CURRENT DOSE: 5085 cGy in 29 fx PLANNED DOSE: 5085 cGy in 29 fx Date of last visit: 12/15/22 [facility] Outside path review : 02/12/2022 FINAL DIAGNOSIS Vaginal mass, right, biopsy (S [id number], 02/11/2022, A1-A2): -Invasive squamous cell carcinoma, HPV-associated. OBSTETRIC/ GYNECOLOGY HISTORY: Last Pap: 06/2021 NILM and HPV negative Last HPV: 06/2021 PAST MEDICAL HISTORY Diagnosis Date Asthma Bipolar depression (HCC) Chronic kidney disease, stage III (moderate) (HCC) COPD (chronic obstructive pulmonary disease) (HCC) DM (diabetes mellitus), type 2 (HCC) High blood cholesterol Migraines Sleep disorder Recent blood sugars : 190-220 07/2020 - severe bacterial pneumonia resulting in sepsis hospitalized [facility] Renal failure following this admission PAST SURGICAL HISTORY Procedure Laterality Date BOWEL RESECTION HX 2017 Family History Problem Relation Age of Onset Diabetes Mother Heart Failure Mother Emphysema Father Obstructive Sleep Apnea Father Cancer Maternal Grandmother Parkinson?s Disease Paternal Grandmother Heart Attack Paternal Grandfather RECENT IMAGIN08/18/2021 Pelvic US Impression: Exam slightly limited by patient body habitus Mildly thickened endometrium for patient's age (7mm) 03/16/2022 PET IMPRESSION: 1. NECK: No FDG avid neoplastic process. No mass, adenopathy, or fluid collection. 2. CHEST: No FDG avid neoplastic process. No mass, adenopathy, or fluid collection. 3. ABDOMEN/PELVIS: No definite abnormal uptake is identified in the vulvar region, likely related to the configuration and size of the patient's known malignancy/lesion. No hypermetabolic lymphadenopathy. 4. EXTREMITIES/SKELETON: No FDG avid osseous process. No destructive/traumatic bony abnormality. 09/24/2022 PET IMPRESSION: 1. HEAD and NECK: No evidence of focal uptake to suggest FDG avid neoplastic process.. 2. CHEST: No evidence of focal uptake to suggest FDG avid neoplastic process.. 3. ABDOMEN/PELVIS: No evidence of focal uptake to suggest FDG avid neoplastic process.. 4. EXTREMITIES/SKELETON: No evidence of focal uptake to suggest FDG avid neoplastic process.. HEALTH MAINTENANCE: Last mammogram: not discussed at this visit Last colonoscopy: not discussed at this visit ECOG performance status ECOG PERFORMANCE STATUS: 4- Completely disabled. Cannot carry on any selfcare. Totally confined to bed/chair. SUBJECTIVE/INTERVAL HISTORY: Patient complains of itching on her vulva. Also stated that there is a foul odor. Sores are present. No bleeding but discharge. No problems with urination or bowel movements . Denies issues with appetite. Has found a new aerologist that she is happy with. Her ECOG performance status is 3 (capable of only limited selfcare, confined to bed or chair more than 50% of waking hours). OBJECTIVE: VITALS: BP 90/64 Pulse 104 Temp (Src) 97.4 (Temporal) Resp 20 SpO2 92% GENERAL: alert, oriented, pleasant, and cooperative. HEENT: Normocephalic, atraumatic, and no lesions. NECK: Supple, no adenopathy; ABDOMEN: Abdomen soft, non-tender, lympadematous panus PELVIC: External vulvar exam reveals erythematous satellite appearing lesions on the right inner thigh and right side of pannus. Vulvar is erythematous, no visible plaques or significant discharge. Vagina normal appearing with thin normal appearing vaginal discharge. LOWER EXTREMITIES: No pitting edema and no skin changes ASSESSMENT: 62 year old female with pmh significant for chronic migraine, COPD, poorly con (more content not included)... Normal [facility] Free K+L Lt Chains,Qn,Son Immunoglobulin light chains.kappa.free (S) [Mass/Vol] 58.1 mg/L High 3.3-19.4 [facility] Comment on above: Performed By: #### 2 119389, [id number], 81861884, 811389890, 32904804, 1841856, 08550933, 4782814 #### [facility] [address] [place] [address] Immunoglobulin light chains.kappa.free/Immu noglobulin light chains.lambda.free (S) [Mass ratio] 1.63 Invalid Interpretation Code 0.26-1.65 [facility] Comment on above: Result Comment: Perf ormed at: [facility] [address] [id number] PhD Arik Wright Performed By: #### 2 672343, 302123052, 43458309, 676602698, 56592863, 2522610, 78756602, 4782483 #### [facility] [address] [place] [address] Immunoglobulin light chains.lambda.free [Mass/Vol] 35.7 mg/L High 5.7-26.3 [facility] Comment on above: Performed By: #### 2 524294, 990851133, 11776219, 717118660, 25313142, 5750617, 53960704, 9371808 #### [facility] [address] [place] [address] DIPIKA & UPE, Ary Uron 29- 023 Albumin Elph (24H U) [Mass fraction] 32.1 % Invalid Interpretation Code [facility] Comment on above: Performed By: #### 2 714708, 170100976, 75955960, 454435615, 37413400, 0588432, 98249165, 7533955 #### [facility] [address] [place] [address] Alpha 1 globulin Elph (24H U) [Mass fraction] 4.6 % Invalid Interpretation Code [facility] Comment on above: Performed By: #### 2 942197, 240660103, 24043582, 410236885, 61046427, 2263576, 10502670, 2582777 #### [facility] [address] [place] [address] Alpha 2 globulin Elph (24H U) [Mass fraction] 13.6 % Invalid Interpretation Code [facility] Comment on above: Performed By: #### 2 576414, 923415973, 13779538, 234877310, 24865166, 8808460, 44196163, 5773166 #### [facility] [address] [place] [address] Beta globulin Elph (U) [Mass fraction] 27.7 % Invalid Interpretation Code [facility] Comment on above: Performed By: #### 2 126291, 254307474, 46837457, 355576386, 03030300, 7348731, 20063554, 2630680 #### [facility] [address] [place] [address] Gamma globulin Elph (24H U) [Mass fraction] 22.0 % Invalid Interpretation Code [facility] Comment on above: Performed By: #### 2 197979, 158155369, 63454588, 440462581, 81161955, 6017225, 71663359, 0939261 #### [facility] [address] [place] [address] Interpretation Immunofixation (U) [Interp] Comment: Invalid Interpretation Code [facility] Comment on above: Result Comment: Pres ence of monoclonal protein is unclear at this time. Suggest repeat in 3 to 6 months if clinically indicated. Performed By: #### 2 523726, 246243149, 43588405, 553763629, 74586577, 8884643, 35120805, 4930156 #### [facility] [address] [place] [address] Note Comment Invalid Interpretation Code [facility] Comment on above: Result Comment: Prot ein electrophoresis scan will follow via computer, mail, or tile edger delivery. Performed at: [address] [id number] PhD Arik Wright Performed By: #### 2 078629, 739705439, 53576242, 839780427, 61698212, 8870301, 75483068, 9734006 #### [facility] [address] [place] [address] Protein (U) [Mass/Vol] 23.2 mg/dL Invalid Interpretation Code Not Estab. [facility] Comment on above: Performed By: #### 2 059317, 771957300, 30036822, 715629377, 06733115, 4482756, 53475121, 2670755 #### [facility] [address] [place] [address] Protein.monoclonal Elph (24H U) [Mass fraction] Not Observed Invalid Interpretation Code Not Observed [facility] Comment on above: Performed By: #### 2 695268, 743569726, 68423511, 563793418, 28977160, 8730387, 80830790, 7965171 #### [facility] [address] [place] [address] DIPIKA and PE, Serumon 09-29-20 23 Albumin [Mass/Vol] 3.9 g/dL Invalid Interpretation Code 2.9-4.4 [facility] Comment on above: Performed By: #### 2 962192, 558868891, 11282554, 565317484, 17202230, 7233152, 80906731, 0680907 #### [facility] [address] [place] [address] Albumin/Globulin [Mass ratio] 1.1 {ratio} Invalid Interpretation Code 0.7-1.7 [facility] Comment on above: Performed By: #### 2 774479, 625976173, 97634468, 097051580, 51202751, 6600500, 73375832, 7371833 #### [facility] [address] [place] [address] Alpha 1 globulin Elph [Mass/Vol] 0.2 g/dL Invalid Interpretation Code 0.0-0.4 [facility] Comment on above: Performed By: #### 2 361373, 885301843, 29291156, 057153144, 94328904, 0078830, 67295996, 3804506 #### [facility] [address] [place] [address] Alpha 2 globulin Elph [Mass/Vol] 0.8 g/dL Invalid Interpretation Code 0.4-1.0 [facility] Comment on above: Performed By: #### 2 546550, 478909714, 81031704, 891215018, 60059324, 7070803, 93260987, 9564527 #### [facility] [address] [place] [address] Beta globulin Elph [Mass/Vol] 1.2 g/dL Invalid Interpretation Code 0.7-1.3 [facility] Comment on above: Performed By: #### 2 932231, 803876186, 57768787, 532889661, 17762931, 9026732, 87517541, 5720127 #### [facility] [address] [place] [address] Gamma globulin Elph [Mass/Vol] 1.6 g/dL Invalid Interpretation Code 0.4-1.8 [facility] Comment on above: Performed By: #### 2 268604, 263838972, 18607585, 109259407, 69447081, 5122697, 38929110, 7258427 #### [facility] [address] [place] [address] Globulin (S) [Mass/Vol] 3.8 g/dL Invalid Interpretation Code 2.2-3.9 [facility] Comment on above: Performed By: #### 2 326161, 562154226, 16656056, 596230301, 05148441, 6348085, 69396236, 1367018 #### [facility] [address] [place] [address] IgA [Mass/Vol] 327 mg/dL Invalid Interpretation Code 87-352 [facility] Comment on above: Performed By: #### 2 033630, 440843594, 39309582, 261740269, 34422592, 8921502, 40512391, 3279708 #### [facility] [address] [place] [address] IgG [Mass/Vol] 1588 mg/dL Invalid Interpretation Code [id number] [facility] Comment on above: Performed By: #### 2 881419, 693635984, 94637633, 841965523, 41572707, 0225458, 63670649, 4750091 #### [facility] [address] [place] [address] IgM [Mass/Vol] 179 mg/dL Invalid Interpretation Code 26-217 [facility] Comment on above: Performed By: #### 2 941349, 373746609, 75252522, 822454092, 16059022, 1747212, 19676389, 9784685 #### [facility] [address] [place] [address] Interpretation IEP [Interp] Comment Invalid Interpretation Code [facility] Comment on above: Result Comment: No m onoclonality detected. Performed By: #### 2 887789, 769245974, 27590725, 424474825, 44116756, 9577271, 39225444, 9023390 #### [facility] [address] [place] [address] Laboratory comment Andi (Report) Comment Invalid Interpretation Code [facility] Comment on above: Result Comment: Prot ein electrophoresis scan will follow via computer, mail, or tile edger delivery. Performed at: [facility] [address] [id number] PhD Arik Wright Performed By: #### 2 676560, 679451075, 82379110, 892057522, 46311191, 7065751, 13268946, 5241849 #### [facility] [address] [place] [address] Protein [Mass/Vol] 7.7 g/dL Invalid Interpretation Code 6.0-8.5 [facility] Comment on above: Performed By: #### 2 614226, 434661640, 40024464, 713333274, 75873313, 0825254, 56568750, 5346557 #### [facility] [address] [place] [address] Protein.monoclonal Elph [Mass/Vol] Not Observed Invalid Interpretation Code Not Observed [facility] Comment on above: Performed By: #### 2 761629, 382135639, 41477487, 469196592, 09095258, 1088554, 73973118, 7481831 #### [facility] [address] [place] [address] PTH [place] 01-27-2023 Parathyrin.intact [Mass/Vol] 18 pg/mL Invalid Interpretation Code [facility] Comment on above: Result Comment: [facility] at: [facility] [address] [place], [place] [id number] PhD Arik Wright Performed By: #### 2 247773, 274825260, 50193627, 377043734, 77965079, 5745168, 04012847, 6857661 #### [facility] [address] [place] [address] CBC w/Indiceson 01-26-2023 Erythrocyte distribution width (RBC) [Ratio] 15.4 % High 10.9-14.2 [facility] Comment on above: Performed By: #### 2 775041, 150290157, 31515448, 349532495, 21011124, 5411064, 89269840, 5522780 #### [facility] [address] [place] [address] Hematocrit (Bld) [Volume fraction] 45.2 % Normal 34.0-46.0 [facility] Comment on above: Performed By: #### 2 242046, 030755812, 57906540, 967142851, 60468556, 4451439, 33842809, 1637137 #### [facility] [address] [place] [address] Hemoglobin (Bld) [Mass/Vol] 14.8 g/dL Normal 12.0-16.0 [facility] Comment on above: Performed By: #### 2 739105, 594358480, 31026023, 143239300, 85903776, 6143084, 28399664, 2002175 #### [facility] [address] [place] [address] MCH (RBC) [Entitic mass] 33.0 pg Normal 27.0-34.0 [facility] Comment on above: Performed By: #### 2 309211, 845595848, 41244676, 646223745, 45218077, 7702320, 44048532, 0896641 #### [facility] [address] [place] [address] MCHC (RBC) [Mass/Vol] 32.8 g/dL Normal 31.4-36.0 [facility] Comment on above: Performed By: #### 2 626475, 499742776, 88169146, 910138266, 25768777, 3177954, 91109042, 1041006 #### [facility] [address] [place] [address] MCV (RBC) [Entitic vol] 100.4 fL High 80.0-100.0 [facility] Comment on above: Performed By: #### 2 850953, 693819384, 62799827, 968612340, 73300142, 7858830, 47630019, 1008244 #### [facility] [address] [place] [address] Platelet mean volume (Bld) [Entitic vol] 6.8 fL Normal 6.4-10.8 [facility] Comment on above: Performed By: #### 2 921293, 000755455, 79328481, 586662921, 85879488, 9399528, 61268353, 5895605 #### [facility] [address] [place] [address] Platelets (Bld) [#/Vol] 218.0 E9/L Normal 150.0-500. 0 [facility] Comment on above: Performed By: #### 2 931179, 519447521, 52769342, 444453404, 28224744, 5535490, 00152175, 5621465 #### [facility] [address] [place] [address] RBC (Bld) [#/Vol] 4.5 E12/L Normal 4.3-5.9 [facility] Comment on above: Performed By: #### 2 276036, 680511830, 40563738, 078292587, 25332455, 3751098, 50593810, 8561502 #### [facility] [address] [place] [address] WBC corrected for nucl RBC Auto (Bld) [#/Vol] 6.7 E9/L Normal 4.0-11.0 [facility] Comment on above: Performed By: #### 2 920409, 788079771, 31167372, 778793740, 23039535, 5577638, 63365707, 0249318 #### [facility] [address] [place] [address] Magnesiumon 01-26-2023 Magnesium [Mass/Vol] 1.8 mg/dL Normal 1.3-2.4 [facility] Comment on above: Performed By: #### 2 473153, 058170673, 83382139, 871478711, 72816253, 3400049, 50261257, 4937396 #### [facility] [address] [place] [address] Physician Orderon 01-26-2023 Physician Order [id number] Normal [facility] Renal Panelon 01-26-2023 Albumin [Mass/Vol] 4.0 g/dL Normal 3.3-5.0 [facility] Comment on above: Performed By: #### 2 390412, 854293368, 65229346, 033926765, 41819226, 0216433, 39837599, 0081538 #### [facility] [address] [place] [address] Anion gap [Moles/Vol] 11 mmol/L Normal 6-16 [facility] Comment on above: Performed By: #### 2 935397, 687734966, 85258437, 767422833, 44544936, 6578381, 68399555, 2033013 #### [facility] [address] [place] [address] Calcium [Mass/Vol] 9.5 mg/dL Normal 8.9-11.1 [facility] Comment on above: Performed By: #### 2 357573, 389753345, 66781574, 472475153, 10608393, 0994565, 50808887, 8996413 #### [facility] [address] [place] [address] Chloride [Moles/Vol] 108 mmol/L Normal 101-111 [facility] Comment on above: Performed By: #### 2 387120, 521493726, 66845386, 267511303, 38538134, 2808365, 85459910, 1571035 #### [facility] [address] [place] [address] CO2 [Moles/Vol] 25 mmol/L Normal 21-31 [facility] Comment on above: Performed By: #### 2 899030, 325801616, 86520166, 010809093, 94347897, 5510325, 85009345, 4256087 #### [facility] [address] [place] [address] Creatinine [Mass/Vol] 1.0 mg/dL Normal 0.5-1.3 [facility] Comment on above: Performed By: #### 2 739234, 315700828, 31553108, 874668546, 58477176, 5083000, 78859413, 0846019 #### [facility] [address] [place] [address] Glucose [Mass/Vol] 143 mg/dL Normal 55-199 [facility] Comment on above: Result Comment: If t his glucose result represents a fasting glucose, interpretation should refer to the following reference range: 55-99 mg/dL Performed By: #### 2 544799, 083380536, 21361488, 101698794, 42909762, 9012586, 99875819, 4660037 #### [facility] [address] [place] [address] Phosphate [Mass/Vol] 3.5 mg/dL Normal 1.9-4.6 [facility] Comment on above: Performed By: #### 2 206118, 268530852, 61534221, 786936092, 51617759, 6310349, 26372610, 8150812 #### [facility] [address] [place] [address] Potassium [Moles/Vol] 4.0 mmol/L Normal 3.5-5.3 [facility] Comment on above: Performed By: #### 2 412977, 990806361, 87623589, 055634890, 46953300, 1051668, 23555131, 9842912 #### [facility] [address] [place] [address] Sodium [Moles/Vol] 140 mmol/L Normal 135-145 [facility] Comment on above: Performed By: #### 2 681859, 629959473, 10513150, 512816380, 06114610, 9409722, 37626048, 0750409 #### [facility] [address] [place] [address] Urea nitrogen [Mass/Vol] 19 mg/dL Normal 5-21 [facility] Comment on above: Performed By: #### 2 342234, 142940355, 76973415, 141644354, 13036795, 9113018, 11096819, 2903546 #### [facility] [address] [place] [address] Urea nitrogen/Creatinine [Mass ratio] 19 No Units Normal 10-20 [facility] Comment on above: Performed By: #### 2 219067, 511354856, 88350196, 363053694, 11671755, 6955804, 91659977, 4419266 #### [facility] [address] [place] [address] U Protein/Creat Ratioon 01-01 Albumin Elph (U) [Mass fraction] 24.9 mg/dL Invalid Interpretation Code [facility] Comment on above: Result Comment: The reference range and other method performance specifications have not been established for this test; results should be integrated into the clinical context for interpretation. Performed By: #### 2 766491, 766053287, 00956079, 731980984, 85043773, 5923462, 55090818, 3191411 #### [facility] [address] [place] [address] Creatinine (U) [Mass/Vol] 118.9 mg/dL Invalid Interpretation Code [facility] Comment on above: Result Comment: The reference range and other method performance specifications have not been established for this test; results should be integrated into the clinical context for interpretation. Performed By: #### 2 161982, 139186356, 50369799, 266539476, 80665937, 4683425, 34395684, 1238088 #### [facility] [address] [place] [address] U Prot/Creat Ratio 209.40 mg/gm Cr High .00-200.00 [facility] Comment on above: Performed By: #### 2 364062, 860979400, 60227585, 754479195, 71990090, 9075699, 58346284, 4182635 #### [facility] [address] [place] [address] Uric Acidon 01-26-2023 Urate [Mass/Vol] 5.6 mg/dL Normal 2.2-7.4 [facility] Comment on above: Performed By: #### 2 693447, 845084550, 60125835, 303704042, 78992417, 6352724, 20050293, 2952660 #### [facility] [address] [place] [address] Urinalysison 01-26-2023 Bacteria LM Ql (Urine sed) 1+ /HPF Abnormal Trace [facility] Comment on above: Performed By: #### 1 2207761, 98855889, 9329802933 #### [facility] [address] [place] [address] Bilirubin Ql (U) Negative Normal Negative [facility] Comment on above: Performed By: #### 1 9561461, 07475080, 3188450707 #### [facility] [address] [place] [address] Clarity (U) CLEAR Normal Clear [facility] Comment on above: Performed By: #### 1 5482392, 99459758, 3381256319 #### [facility] [address] [place] [address] Color (U) YELLOW Normal Yellow [facility] Comment on above: Performed By: #### 1 6857646, 56951044, 2557035191 #### [facility] [address] [place] [address] Epithelial cells.squamous LM.HPF (Urine sed) [#/Area] 3-4 Normal 0-2 [facility] Comment on above: Performed By: #### 1 6541313, 03055080, 8088086368 #### [facility] [address] [place] [address] Glucose Test strip (U) [Mass/Vol] Negative Normal Negative [facility] Comment on above: Performed By: #### 1 6471777, 06310456, 0425535707 #### [facility] [address] [place] [address] Hemoglobin Ql (U) Negative Normal Negative [facility] Comment on above: Performed By: #### 1 4218705, 02257027, 1467467358 #### [facility] [address] [place] [address] Ketones (U) [Mass/Vol] Negative Normal Negative [facility] Comment on above: Performed By: #### 1 2198210, 73677288, 4385101312 #### [facility] [address] [place] [address] [place].plasma/[place] .RBC (Bld) [Mass ratio] 0-3 Normal 0-3 [facility] Comment on above: Performed By: #### 1 3323071, 84929406, 8302276042 #### [facility] [address] [place] [address] Nitrite Ql (U) Negative Normal Negative [facility] Comment on above: Performed By: #### 1 3227988, 66410795, [id number] #### [facility] [address] [place] [address] pH (U) 6.5 [pH] Invalid Interpretation Code 5.0-9.0 [facility] Comment on above: Performed By: #### 1 0170354, 95867899, 7934744190 #### [facility] [address] [place] [address] Protein (U) [Mass/Vol] Negative Normal Negative [facility] Comment on above: Performed By: #### 1 2561151, 01245262, 9539944830 #### [facility] [address] [place] [address] Specific gravity (U) [Rel density] 1.020 Invalid Interpretation Code 1.005-1.03 0 [facility] Comment on above: Performed By: #### 1 8561167, 11716561, 9934785757 #### [facility] [address] [place] [address] Type of Urine collection method Clean Catch Normal [facility] Comment on above: Performed By: #### 1 1934885, 10555760, 8352342546 #### [facility] [address] [place] [address] Urobilinogen Qn (U) 1.0 {Bob'U}/dL Normal 0.0-1.0 [facility] Comment on above: Performed By: #### 1 0938374, 75271136, 0959324754 #### [facility] [address] [place] [address] WBC Auto Ql (U) 2+ Abnormal Negative [facility] Comment on above: Performed By: #### 1 3703091, 66047323, 9046405475 #### [facility] [address] [place] [address] WBC LM.HPF (Urine sed) [#/Area] 16-25 Abnormal 0-5 [facility] Comment on above: Performed By: #### 1 0639587, 80373047, 9128737084 #### [facility] [address] [place] [address] Vitamin D 25 Hydroxyon 01-26 25-hydroxyvitamin D3 [Mass/Vol] 57.9 ng/mL Normal 30.0-100.0 [facility] Comment on above: Result Comment: Vit machuca D deficiency has been defined as a level of serum 25-OH vitamin D less than 20 ng/mL (1,2) by the Geff of Medicine and an Endocrine Society practice guideline. The Endocrine Society further defined vitamin D insufficiency as a level between 21 and 29 ng/mL (2). 1. IOM (Geff of Medicine). 2010. Dietary reference intakes for calcium and D. [place]: The National Academies Press. 2. Rafal MF, Jose David NC, Sue JAMA, et al. Evaluation, treatment, and prevention of vitamin D deficiency: an Endocrine Society clinical practice guideline. JCEM. 2010; 96 (7):1911-30. Performed By: #### 2 319395, 212202443, 95255150, 823291969, 98231079, 1145629, 66333076, 0119894 #### [facility] [address] [place] [address] eGFRon 01-26-2023 GFR/1.73 sq M.predicted among non-blacks MDRD (S/P/Bld) [Vol rate/Area] 64 mL/min/1.73 m2 Normal >=59 [facility] Comment on above: Order Comment: Order added by Discern Expert. Result Comment: Assembler Tester rocael kidney disease could be indicated at eGFR's of less than 60 mL/min/1.73m2. Kidney failure is indicated at less than 15 mL/min/1.73m2. Performed By: #### 2 472998, 644742924, 66770678, 510580701, 15876481, 1201887, 72830816, 4105561 #### [facility] [address] [place] [address] CNOVSPon 12-15-2022 CNOVSP Visit (SP) Office (Abena KHANNA) -- FELISHA DIALLO ([id number]) 1960 F Date Time Provider Department 12/15/22 2:15 PM MARIANA ZAMORA During your visit today, we recorded the following information about you: Temperature Pulse Respiration Blood pressure 97.7 degrees 93/minute 18/minute 110/74 Mariana Zamroa MD 12/15/2022 3:46 PM Signed DATE OF SERVICE: 12/15/2022 REASON FOR VISIT: Surveillance follow up DIAGNOSIS: Vulvar Cancer HPI: 1.Felisha Diallo is a 62 year old female with pmh significant for chronic migraine, COPD, poorly controlled Type 2 DM, hydradenitis, largely wheelchair dependent and a former smoker. Presents today for follow up for her recently diagnosed squamous cell carcinoma. Patient underwent a biopsy of a right vulvar mass on 02/11/22. Initially she presented to the ER with complaints of a right labial abscess or cyst that was present for months until it had opened when wiping and observed a large amount of blood from the area. She saw bacon skinner who referred her to general surgery for a biopsy. Biopsy confirmed invasive SCC. 2. 03/16/22 PET scan with no evidence of metastasis. 3. 04/02/20[address] consult with Dr. Garcia. 4. 05/03/2022: start of EBRT - COURSE: definitive AREA TREATED: vulva CURRENT DOSE: 5085 cGy in 29 fx PLANNED DOSE: 5085 cGy in 29 fx Date of last visit: 09/30/22 distance health visit [facility] Outside path review : 02/12/2022 FINAL DIAGNOSIS Vaginal mass, right, biopsy (S [id number], 02/11/2022, A1-A2): -Invasive squamous cell carcinoma, HPV-associated. OBSTETRIC/ GYNECOLOGY HISTORY: Last Pap: 06/2021 NILM and HPV negative Last HPV: 06/2021 PAST MEDICAL HISTORY Diagnosis Date Asthma Bipolar depression (HCC) Chronic kidney disease, stage III (moderate) (HCC) COPD (chronic obstructive pulmonary disease) (HCC) DM (diabetes mellitus), type 2 (HCC) High blood cholesterol Migraines Sleep disorder Recent blood sugars : 190-220 07/2020 - severe bacterial pneumonia resulting in sepsis hospitalized [facility] Renal failure following this admission PAST SURGICAL HISTORY Procedure Laterality Date BOWEL RESECTION HX 2017 Family History Problem Relation Age of Onset Diabetes Mother Heart Failure Mother Emphysema Father Obstructive Sleep Apnea Father Cancer Maternal Grandmother Parkinson?s Disease Paternal Grandmother Heart Attack Paternal Grandfather RECENT IMAGIN08/18/2021 Pelvic US Impression: Exam slightly limited by patient body habitus Mildly thickened endometrium for patient's age (7mm) 03/16/2022 PET IMPRESSION: 1. NECK: No FDG avid neoplastic process. No mass, adenopathy, or fluid collection. 2. CHEST: No FDG avid neoplastic process. No mass, adenopathy, or fluid collection. 3. ABDOMEN/PELVIS: No definite abnormal uptake is identified in the vulvar region, likely related to the configuration and size of the patient's known malignancy/lesion. No hypermetabolic lymphadenopathy. 4. EXTREMITIES/SKELETON: No FDG avid osseous process. No destructive/traumatic bony abnormality. 09/24/2022 PET IMPRESSION: 1. HEAD and NECK: No evidence of focal uptake to suggest FDG avid neoplastic process.. 2. CHEST: No evidence of focal uptake to suggest FDG avid neoplastic process.. 3. ABDOMEN/PELVIS: No evidence of focal uptake to suggest FDG avid neoplastic process.. 4. EXTREMITIES/SKELETON: No evidence of focal uptake to suggest FDG avid neoplastic process.. HEALTH MAINTENANCE: Last mammogram: not discussed at this visit Last colonoscopy: not discussed at this visit ECOG performance status ECOG PERFORMANCE STATUS: 4- Completely disabled. Cannot carry on any selfcare. Totally confined to bed/chair. SUBJECTIVE/INTERVAL HISTORY: Felisha Diallo has been doing well without complaints. Has seen a new aerologist and [facility]. Denies vulvar burning, irritation or bleeding. No new complaints today. OBJECTIVE: VITALS: BP 110/74 Pulse 93 Temp (Src) 97.7 (Temporal) Resp 18 SpO2 94% GENERAL: alert, oriented, pleasant, and cooperative. HEENT: Normocephalic, atraumatic, and no lesions. ABDOMEN: Abdomen soft, non-tender, PELVIC: no palpable inguinal adenopathy, External genitalia, anus and urethral meatus are normal in appearance and without lesions. Hydradenitis present. ASSESSMENT: 62 year old female with pmh significant for chronic migraine, COPD, poorly controlled Type 2 DM, hydradenitis, obesity, chronic venous stasis lower extremities, largely wheelchair dependent and a former smoker. 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 Due to location of lesion she agreed to pursue primary radiation therapy. Declined concurrent chemo. - S/p EBRT 06/16/[address] Garcia - stopped after 5085Gy due to sk (more content not included)... Normal [facility] CBC AUTO DIFFon 08-31-2022 BASO # 0.1 103/ul Normal 0.0-0.1 [facility] Comment on above: Performed By: #### B MP #### [facility] [address] [place] [address] Dr. Adrianne Johnson Basophils/100 WBC (Bld) 1.0 % Normal 0.2-2.0 [facility] Comment on above: Performed By: #### B MP #### [facility] [address] [place] [address] Dr. Adrianne Johnson EO # 0.3 103/ul Normal 0.0-0.7 [facility] Comment on above: Performed By: #### B MP #### [facility] [address] [place] [address] Dr. Adrianne Johnson Eosinophils/100 WBC (Bld) 3.5 % Normal 0.9-7.0 [facility] Comment on above: Performed By: #### B MP #### [facility] [address] [place] [address] [address] Adrianne Johnson Erythrocyte distribution width (RBC) [Ratio] 14.2 % Normal 11.0-15.0 [facility] Comment on above: Performed By: #### B MP #### [facility] [address] [place] [address] Dr. Adrianne Johnson Hematocrit (Bld) [Volume fraction] 41.6 % Normal 36.0-48.0 [facility] Comment on above: Performed By: #### B MP #### [facility] [address] [place] [address] Dr. Adrianne Johnson Hemoglobin (Bld) [Mass/Vol] 13.4 g/dL Normal 12.0-16.0 [facility] Comment on above: Performed By: #### B MP #### [facility] [address] [place] [address] Dr. Adrianne Johnson IG # 0.05 10e3/ul Critically high 0.00-0.03 [facility] Comment on above: Performed By: #### B MP #### [facility] [address] [place] [address] Dr. Adrianne Johnson IG % 0.5 % Normal 0.0-0.5 [facility] Comment on above: Performed By: #### B MP #### [facility] [address] [place] [address] Dr. Adrianne Johnson LYMPH # 3.3 103/ul Normal 1.2-3.8 [facility] Comment on above: Performed By: #### B MP #### [facility] [address] [place] [address] Dr. Adrianne Johnson Lymphocytes/100 WBC (Bld) 36.5 % Normal 20.5-60.0 [facility] Comment on above: Performed By: #### B MP #### [facility] [address] [place] [address] Dr. Adrianne Johnson MANUAL DIFF REQ NO Normal [facility] Comment on above: Performed By: #### B MP #### [facility] [address] [place] [address] Dr. Adrianne Johnson MCH (RBC) [Entitic mass] 33.0 pg Normal 26.7-34.0 [facility] Comment on above: Performed By: #### B MP #### [facility] [address] [place] [address] Dr. Adrianne Johnson MCHC (RBC) [Mass/Vol] 32.2 g/dL Normal 29.9-35.2 [facility] Comment on above: Performed By: #### B MP #### [facility] [address] [place] [address] Dr. Adrianne Johnson MCV (RBC) [Entitic vol] 102.5 fL Critically high 81.0-99.0 [facility] Comment on above: Performed By: #### B MP #### [facility] [address] [place] [address] Dr. Adrianne Johnson MONO # 0.8 103/ul Normal 0.3-0.8 [facility] Comment on above: Performed By: #### B MP #### [facility] [address] [place] [address] Dr. Adrianne Johnson Monocytes/100 WBC (Bld) 9.2 % Normal 1.7-12.0 [facility] Comment on above: Performed By: #### B MP #### [facility] [address] [place] [address] Dr. Adrianne Johnson NEUT # 4.5 103/ul Normal 1.4-6.5 [facility] Comment on above: Performed By: #### B MP #### [facility] [address] [place] [address] Dr. Adrianne Johnson Neutrophils/100 WBC (Bld) 49.3 % Normal 43.0-75.0 [facility] Comment on above: Performed By: #### B MP #### [facility] [address] [place] [address] Dr. Adrianne Johnson Platelet mean volume (Bld) [Entitic vol] 9.2 fL Critically low 9.5-13.5 [facility] Comment on above: Performed By: #### B MP #### [facility] [address] [place] [address] Dr. Adrianne Johnson PLT 228 103/ul Normal 150-450 [facility] Comment on above: Performed By: #### B MP #### [facility] [address] [place] [address] Dr. Adrianne Johnson RBC 4.06 106/ul Critically low 4.20-5.40 [facility] Comment on above: Performed By: #### B MP #### [facility] [address] [place] [address] Dr. Adrianne Johnson WBC 9.1 103/ul Normal 4.0-11.0 [facility] Comment on above: Performed By: #### B MP #### [facility] [address] [address] [address] Adrianne Johnson CULTURE ABSCESSon 08-31-2022 CULTURE ABSCESS Culture Observations : NORMAL SKIN GABE. Normal [facility] Comment on above: Performed By: #### F ERR, FETIBC #### [facility] [address] [address] [address] Adrianne Johnson PROF CHEM 8 (BAS METB)on Anion gap [Moles/Vol] 13.2 mmol/L Normal [facility] Comment on above: Performed By: #### B MP #### [facility] [address] [address] [address] Adrianne Johnson Calcium [Mass/Vol] 8.8 mg/dL Normal 8.5-10.[address] [facility] Comment on above: Performed By: #### B MP #### [facility] [address] [address] [address] Adrianne Johnson Chloride [Moles/Vol] 104 mmol/L Normal 98-107 [facility] Comment on above: Performed By: #### B MP #### [facility] [address] [address] [address] Adrianne Johnson CO2 [Moles/Vol] 24.6 mmol/L Normal 21.0-32.0 [facility] Comment on above: Performed By: #### B MP #### [facility] [address] [address] [address] Adrianne Johnson Creatinine [Mass/Vol] 1.22 mg/dL Critically high 0.55-1.02 [facility] Comment on above: Performed By: #### B MP #### [facility] [address] [address] [address] Adrianne Johnson EGFR-AF DJIBOUTIAN 54 mL/min/1.73m2 Critically low >=60 [facility] Comment on above: Performed By: #### B MP #### [facility] [address] [address] [address] Adrianne Johnson EGFR-NON AF DJIBOUTIAN 45 mL/min/1.73m2 Critically low >=60 [facility] Comment on above: Performed By: #### B MP #### [facility] [address] [address] [address] Adrianne Johnson Glucose [Mass/Vol] 215 mg/dL Critically high 74-106 [facility] Comment on above: Performed By: #### B MP #### [facility] [address] [address] [address] Adrianne Johnson Potassium [Moles/Vol] 3.8 mmol/L Normal 3.5-5.1 [facility] Comment on above: Performed By: #### B MP #### [facility] [address] [address] [address] Adrianne Johnson Sodium [Moles/Vol] 138 mmol/L Normal 136-[address] [facility] Comment on above: Performed By: #### B MP #### [facility] [address] [address] [address] Adrianne Johnson Urea nitrogen [Mass/Vol] 18.0 mg/dL Normal 7.0-18.0 [facility] Comment on above: Performed By: #### B MP #### [facility] [address] [place] [address] Dr. Adrianne Johnson Urea nitrogen/Creatinine [Mass ratio] 14.8 mg/mg Normal [facility] Comment on above: Performed By: #### B MP #### [facility] [address] [address] [address] Adrianne Johnson US SINGLE QUAD LT LOWERon US SINGLE QUAD LT LOWER EXAMINATION: US SINGLE QUAD LT LOWER HISTORY: Swelling COMPARISON: No relevant comparison available. TECHNIQUE: Transabdominal evaluation of the right upper quadrant. FINDINGS: No appreciable mass or fluid collection along the undersurface of patient's pannus in area of concern. IMPRESSION: No identifiable abscess or mass within the patient's pannus. Electronically authenticated by: ERNIE LOWERY Date: 2022-08-31 16:02 Normal [facility] PTH INTACTon 07-15-2022 PTH, Intact 25 pg/mL Normal 15-65 [facility] Comment on above: Performed By: #### B MP #### [facility] [address] [address] [address] Adiranne Johnson FERRITINon 07-14-2022 Ferritin [Mass/Vol] 76.0 ng/mL Normal 8.0-252.0 [facility] Comment on above: Performed By: #### F ETIBC, VITAD, FERR #### [facility] [address] [address] [address] Adrianne Johnson GLYCOHEMOGLOBIN A1Con 2022 ADA RECOMMENDATION SEE BELOW Normal [facility] Comment on above: Result Comment: ADA RECOMMENDED LIMIT 4.0 - 6.0 ADA THERAPEUTIC TARGET < 7.0 ACTION SUGGESTED > 7.0 Performed By: #### F ERR, FETIBC #### [facility] [address] [place] [address] Dr. Adrianne Johnson Glucose [Mass/Vol] 189 mg/dL Normal [facility] Comment on above: Performed By: #### F ERR, FETIBC #### [facility] [address] [place] [address] Dr. Adrianne Johnson HbA1c (Bld) [Mass fraction] 8.2 % Critically high 4.5-6.2 [facility] Comment on above: Performed By: #### F ERR, FETIBC #### [facility] [address] [place] [address] Dr. Adrianne Johnson HEMOGRAM AND PLATELon 2022 Hematocrit (Bld) [Volume fraction] 45.5 % Normal 36.0-48.0 [facility] Comment on above: Performed By: #### H H #### [facility] [address] [place] [address] Dr. Adrianne Johnson Hemoglobin (Bld) [Mass/Vol] 14.5 g/dL Normal 12.0-16.0 [facility] Comment on above: Performed By: #### H H #### [facility] [address] [place] [address] Dr. Adrianne Johnson MCH (RBC) [Entitic mass] 32.1 pg Normal 26.7-34.0 [facility] Comment on above: Performed By: #### H H #### [facility] [address] [address] [address] Adrianne Johnson MCHC (RBC) [Mass/Vol] 31.9 g/dL Normal 29.9-35.2 [facility] Comment on above: Performed By: #### H H #### [facility] [address] [address] [address] Adrianne Johnson MCV (RBC) [Entitic vol] 100.7 fL Critically high 81.0-99.0 [facility] Comment on above: Performed By: #### H H #### [facility] [address] [address] [address] Adrianne Johnson PLT 230 103/ul Normal 150-450 [facility] Comment on above: Performed By: #### H H #### [facility] [address] [place] [address] Dr. Adrianne Johnson RBC 4.52 106/ul Normal 4.20-5.40 [facility] Comment on above: Performed By: #### H H #### [facility] [address] [place] [address] Dr. Adrianne Johnson WBC 7.0 103/ul Normal 4.0-11.0 [facility] Comment on above: Performed By: #### H H #### [facility] [address] [place] [address] Dr. Adrianne Johnson IRON AND TIBCon 07-14-2022 % SATURATION 28.8 % Normal [facility] Comment on above: Performed By: #### F ETIBC, VITAD, FERR #### [facility] [address] [place] [address] Dr. Adrianne Johnson Iron [Mass/Vol] 96.0 ug/dL Normal 50.0-170.0 [facility] Comment on above: Performed By: #### F ETIBC, VITAD, FERR #### [facility] [address] [place] [address] Dr. Adrianne Johnson TIBC DIRECT 333.0 ug/dL Normal 250.0-450. 0 [facility] Comment on above: Performed By: #### F ETIBC, VITAD, FERR #### [facility] [address] [address] [address] Adrianne Johnson MAGNESIUMon 07-14-2022 Magnesium [Mass/Vol] 2.0 mg/dL Normal 1.8-2.4 [facility] Comment on above: Performed By: #### B MP #### [facility] [address] [address] [address] Adrianne Johnson RENAL FUNCTION PANELon 07-14 Albumin [Mass/Vol] 3.6 g/dL Normal 3.4-5.[address] [facility] Comment on above: Performed By: #### B MP #### [facility] [address] [address] [address] Adrianne Johnson Calcium [Mass/Vol] 9.3 mg/dL Normal 8.5-10.1 [facility] Comment on above: Performed By: #### B MP #### [facility] [address] [address] [address] Adrianne Johnson Chloride [Moles/Vol] 104 mmol/L Normal 98-107 [facility] Comment on above: Performed By: #### B MP #### [facility] [address] [address] [address] Adrianne Johnson CO2 [Moles/Vol] 24.3 mmol/L Normal 21.0-32.0 [facility] Comment on above: Performed By: #### B MP #### [facility] [address] [address] [address] Adrianne Johnson Creatinine [Mass/Vol] 1.06 mg/dL Critically high 0.55-1.02 [facility] Comment on above: Performed By: #### B MP #### [facility] [address] [place] [address] Dr. Adrianne Johnson EGFR-AF DJIBOUTIAN >60 Normal >=60 [facility] Comment on above: Performed By: #### B MP #### [facility] [address] [address] [address] Adrianne Johnson EGFR-NON AF DJIBOUTIAN 53 mL/min/1.73m2 Critically low >=60 [facility] Comment on above: Performed By: #### B MP #### [facility] [address] [address] [address] Adrianne Johnson Glucose [Mass/Vol] 276 mg/dL Critically high 74-106 [facility] Comment on above: Performed By: #### B MP #### [facility] [address] [address] [address] Adrianne Johnson Phosphate [Mass/Vol] 4.2 mg/dL Normal 2.6-4.7 [facility] Comment on above: Performed By: #### B MP #### [facility] [address] [address] [address] Adrianne Johnson Potassium [Moles/Vol] 3.8 mmol/L Normal 3.5-5.1 [facility] Comment on above: Performed By: #### B MP #### [facility] [address] [address] [address] Adrianne Johnson Sodium [Moles/Vol] 136 mmol/L Normal 136-[address] [facility] Comment on above: Performed By: #### B MP #### [facility] [address] [address] [address] Adrianne Johnson Urea nitrogen [Mass/Vol] 15.0 mg/dL Normal 7.0-18.0 [facility] Comment on above: Performed By: #### B MP #### [facility] [address] [address] [address] Adrianne Johnson UA RANDOM W/MICROSCOPICon BACTERIA TRACE Abnormal NONE SEEN [facility] Comment on above: Performed By: #### F ERR, FETIBC #### [facility] [address] [address] [address] Adrianne Johnson Bilirubin Ql (U) Negative Normal NEGATIVE [facility] Comment on above: Performed By: #### F ERR, FETIBC #### [facility] [address] [place] [address] Dr. Adrianne Johnson CA OX CRYSTALS RARE Normal [facility] Comment on above: Performed By: #### F ERR, FETIBC #### [facility] [address] [address] [address] Adrianne Johnson CAST NONE SEEN Normal NONE SEEN [facility] Comment on above: Performed By: #### F ERR, FETIBC #### [facility] [address] [address] [address] Adrianne Johnson Clarity (U) CLEAR Normal CLEAR [facility] Comment on above: Performed By: #### F ERR, FETIBC #### [facility] [address] [address] [address] Adrianne Johnson Color (U) YELLOW Normal YELLOW [facility] Comment on above: Performed By: #### F ERR, FETIBC #### [facility] [address] [address] [address] Adrianne Johnson Crystals LM Nom (Urine sed) SEEN Abnormal NONE SEEN [facility] Comment on above: Performed By: #### F ERR, FETIBC #### [facility] [address] [address] [address] Adrianne Johnson Epithelial cells LM Ql (Urine sed) FEW Abnormal NONE SEEN /RARE [facility] Comment on above: Performed By: #### F ERR, FETIBC #### [facility] [address] [address] [address] Adrianne Johnson Glucose Ql (U) 500 mg/dl Abnormal NEGATIVE [facility] Comment on above: Performed By: #### F ERR, FETIBC #### [facility] [address] [address] [address] Adrianne Johnson Hemoglobin Ql (U) SMALL Abnormal NEGATIVE [facility] Comment on above: Performed By: #### F ERR, FETIBC #### [facility] [address] [address] [address] Adrianne Johnson Ketones Ql (U) TRACE Abnormal NEGATIVE [facility] Comment on above: Performed By: #### F ERR, FETIBC #### [facility] [address] [place] [address] Dr. Adrianne Johnson LEUKOCYTES SMALL Abnormal NEGATIVE [facility] Comment on above: Performed By: #### F ERR, FETIBC #### [facility] [address] [address] [address] Adrianne Johnson MUCOUS NONE SEEN Normal NONE SEEN [facility] Comment on above: Performed By: #### F ERR, FETIBC #### [facility] [address] [address] [address] Adrianne Johnson Nitrite Ql (U) Negative Normal NEGATIVE [facility] Comment on above: Performed By: #### F ERR, FETIBC #### [facility] [address] [place] [address] Dr. Adrianne Johnson pH (U) 5.5 [pH] Normal 5-9 [facility] Comment on above: Performed By: #### F ERR, FETIBC #### [facility] [address] [place] [address] Dr. Adrianne Johnson RBC 5-10 Abnormal 0-2 [facility] Comment on above: Performed By: #### F ERR, FETIBC #### [facility] [address] [place] [address] Dr. Adrianne Johnson SPEC GRAVITY >=1.030 Abnormal 1.005-<=1. 025 [facility] Comment on above: Performed By: #### F ERR, FETIBC #### [facility] [address] [place] [address] Dr. Adrianne Johnson UA PROTEIN 30 mg/dl Abnormal NEGATIVE/ TRACE [facility] Comment on above: Performed By: #### F ERR, FETIBC #### [facility] [address] [address] [address] Adrianne Johnson Urobilinogen Qn (U) 0.2 {Bob'U}/dL Normal 0.2 - 1. 0 [facility] Comment on above: Performed By: #### F ERR, FETIBC #### [facility] [address] [place] [address] Dr. Adrianne Johnson WBC 20-50 Abnormal NONE SEEN [facility] Comment on above: Performed By: #### F ERR, FETIBC #### [facility] [address] [place] [address] Dr. Adrianne Johnson URIC ACID SERUMon 07-14-2022 Urate [Mass/Vol] 4.2 mg/dL Normal 2.6-6.0 [facility] Comment on above: Performed By: #### B MP #### [facility] [address] [place] [address] Dr. Adrianne Johnson URINE T PROTEIN CREAT RATIOo n 07-14-2022 Protein (U) [Mass/Vol] 112.3 mg/dL Critically high <=12.0 [facility] Comment on above: Performed By: #### U RTPCR #### [facility] [address] [place] [address] Dr. Adrianne Johnson UR PROT CREAT RAT 0.75 Normal [facility] Comment on above: Performed By: #### U RTPCR #### [facility] [address] [place] [address] Dr. Adrianne Johnson URINE CREAT 149.88 mg/dL Normal 20.00-300. 00 [facility] Comment on above: Performed By: #### U RTPCR #### [facility] [address] [place] [address] Dr. Adrianne Johnson VITAMIN D 25 OHon 07-14-2022 VIT D 25-OH 39.2 ng/mL Normal [facility] Comment on above: Performed By: #### F ETIBC, VITAD, FERR #### [facility] [address] [place] [address] Dr. Adrianne Johnson VIT D RANGES SEE BELOW Normal [facility] Comment on above: Result Comment: <20 ng/mL Vit D deficient 20 - <30 ng/mL Vit D insufficient 30 - 100 ng/mL Vit D sufficient >100 ng/mL Potential Toxicity Performed By: #### F ETIBC, VITAD, FERR #### [facility] [address] [place] [address] Dr. Adrianne Johnson Progress Noteson 03-31-2022 [employer] Authentication Interface Message Text EMERGENCY TRIAGE, TREAT AND TRANSPORT (ET3) DOCUMENTATION OF TELEHEALTH VISIT Date / Time: 03/31/2022 / 1345 Name: Felisha Diallo : 1960 SSN: [id number] EMS Agency: [facility] [x] Verbal consent obtained [] Implied consent - patient with potential emergency medical condition requiring assessment of capacity to refuse treatment and/or transport VITAL SIGNS: see flowsheet documentation Reason for Telehealth Visit: Chief Complaint Patient presents with Wheezing History of Present Ilness: 61 yo female PMH COPD, CHF and morbid obesity was at home when home health aid noted lung base crackles. Required EMS call or home health aid wouldn't wash the patients hair. Pt reports she has recently been off her diuretics as she was out of house and couldn't be close to bathroom to urinate frequently. Also reports she ahs recently had rhinorrhea and cough. Denies SOb, CP, abd pain, fever or chills. Pt is ambulatory at her baseline and able to complete ADL's she reports. EMS ok w/ transport refusal. Additional pertinent PMHx, SocHx, FamHx: PMH as above Social lives alone w/ home health aid services. Review of Systems: Denies the following: CP, abd pain, SOB Exam: General: Awake, no distress ENT: normocephalic, atraumatic Pulmonary: No respiratory distress, mild bilateral exp wheezing per EMS Cardiovascular: Well perfused Neurologic: Oriented to person, place, time and events. Moving all extremities equally. Psychiatric: Appropriate. Good insight and judgement. Medical Decision Makin yo female w/ change in ausculated lung sounds per home health aid. Pt without complaint. Notes she has been off her diuretics recently as she was out of house. Has restarted them. Not hypoxic and without respiratory distress. Ok for refusal. No indication for intervention or transport. Disposition Supported by Telehealth Assessment: ET3 transport decisions: Refused transport EMS Disposition Reported: Same ET3 Encounter Completed by: Robbie Gallardo DO Normal [facility] VC COMP CONSULTATIONon 03-17 VC COMP CONSULTATION Patient: Saran DIALLO Exam Date: 03/17/2022 : 1960 Gender:F Ordering : DR. DAVION SmithPVentura Admission #: [id number] Family : Order #: [id number] CLICK HERE TO VIEW EXAM RADIOLOGY REPORT PROCEDURE: VC VEIN CENTER CONSULTATION VEIN CENTER - OFFICE VISIT INITIAL COMPARISON: None. PROGRESS NOTES: 61-year-old female who presents with a 3 year history of lower extremity pain swelling and varicose veins with extensive subcutaneous edema. This culminated in an episode bilateral cellulitis with nonhealing venous stasis ulcerations in July of 2021 which have not healed despite being treated in the wound clinic. In July the patient started on dialysis culminated in marked increase in swelling. The patient has since discontinued successfully dialysis but the wounds have not healed. The patient's pain and swelling is significantly increased when her legs day angle, the patient is no longer able to walk due to large weight gain, imbalance from neurologic conditions and her wounds. The patient has gained 40 pounds in the last 6 months. The patient has been on a diuretic with no significant improvement. The patient recently started insulin for her type 2 diabetes. 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 The patient has had a PET scan and the result is pending. The patient sees [facility] skinner Onc at the [facility] tomorrow. She has not started treatments at this time. The patient denies any signs and symptoms to suggest arterial ischemia. The patient describes a family history significant for stomach cancer, hypertension, IBD and osteoporosis. . Extensive past medical history including dysfunctional uterine bleeding, COPD, asthma, type 2 diabetes, peripheral neuropathy, arthritis, bipolar disorder, hypercholesterolemia, IBD, kidney disease and cancer. Extensive medication list, see separate report. Past surgical history significant for bowel reconstruction in 2018 and is well as abdominal plasty in 1999. No history of deep venous thrombus or pulmonary embolus. The patient has a 65 pack year history of smoking discontinuing 7 years ago. The patient continues to have a. She was counseled on baby cessation. The patient does not drink alcohol. The patient does use marijuana. See separate history and physical for medication list. Prior treatment for varicose or spider veins. The patient has been uniboots for many months for compression. Nursing notes were reviewed After history and physical exam I discussed at length the pathophysiology of venous hypertension and possible treatments, therapies and strategies available. We discussed at length the importance of elevating the lower extremities above the level of the heart, increased physical activity and compression stocking use. I did discuss at length with the patient that her lower extremity swelling and neuropathy was likely multifactorial and related to her inactivity, these and kidney disease. While I think there will be some improvement from treatments I do not think she will have resolution of the swelling. Ultrasound venous reflux study performed the same day was discussed at length with the patient. The report demonstrates moderate bilateral great saphenous, small saphenous and anterior accessory saphenous vein venous insufficiency. Large incompetent market director veins corresponding to the patient's wounds. Bilateral incompetent branch saphenous tributaries and varicose veins. PHYSICAL EXAM: The right leg demonstrates moderate diffuse varicose and reticular veins. Severe pitting edema below the knee with a purple discolored thickened skin throughout the lower leg foot and ankle in a circumferential pattern. There is a large area of active ulceration along the mid anterior and medial lower leg measuring 20 cm in diameter through the skin surface. The left leg demonstrates moderate diffuse varicose and reticular veins. Severe pitting edema below the knee with purple discolored thickened skin throughout the lower leg, foot and ankle in a circumferential pattern. Multiple areas of active ulceration are identified along the anterior and lateral mid to distal lower leg the largest area measuring 10 x 3 cm Both thighs, legs and feet were symmetrically warm to the touch. Posterior tibial and dorsalis pedis pulses not be felt on palpation IMPRESSION: 1. Moderate bilateral great saphenous small saphenous and anterior accessory saphenous vein insufficiency associated dilatation. Bilateral incompetent market director veins with associated active ulcerations 2. Bilateral lower extremity varicose veins 3. Severe below knee bilateral lower extremity subcutaneous edema 4. Indeterminate flow significant arterial disease 5. CEAP: C6, Ep, Asp, Pr PLAN: 1. The patient is to follow-up with bacon skinner Onc for the treatment bere (more content not included)... Normal [facility] VC VENOUS REFLUX NEWTON LMTon 1 05-17-2021 VC VENOUS REFLUX NEWTON LMT Patient: FELISHA DIALLO Exam Date: 03/17/2022 : 1960 Gender:F Ordering : DR. DAVION MAURICE DDarcyPVentura Admission #: [id number] Family : DR ALTAGRACIA FLORES M.D. Order #: [id number] CLICK HERE TO VIEW EXAM RADIOLOGY REPORT PROCEDURE: VEIN CENTER ULTRASOUND VENOUS REFLUX BILATERAL LIMTED COMPARISON: None. INDICATIONS: Pain co-occurrent and due to varicose veins of bilateral legs I83.813 TECHNIQUE: Duplex imaging of the lower extremity to assess the deep and superficial venous system for the presence of deep or superficial venous incompetence and to document the location and severity of disease. The study includes evaluation of the great saphenous vein (GSV), anterior accessory saphenous vein (AASV) and small saphenous vein (SSV). Patient scanned in reverse Trendelenburg and standing. FINDINGS: RIGHT LOWER EXTREMITY: Saphenofemoral Junction Reflux: Yes 10.2mm 2.9 sec GSV: Diam (mm) Reflux/ Time (sec) Proximal Thigh 8.3 Yes 1.5 Mid Thigh 6.6 Yes 0.3 Distal Thigh 5.5 Yes 0.3 Prox Calf 5.4 Yes 3.8 Mid Calf 3.6 Yes 0.6 Saphenopopliteal Junction Reflux: 7.2mm Yes 1.5 SSV: Proximal Calf 7.8 Yes 1.1 Mid Calf 4.8 Yes 0.4 AASV: Proximal Thigh 8.1 Yes 3.8 Mid Thigh 7.5 Yes 0.4 Distal Thigh Thrombi: No acute or chronic thrombus. Compressibility: Normal. Flow: Normal. Preforator: Mid/med lower leg near wound 5.1 mm with 2.3s reflux. Prox med calf 3.6 mm, 2.0s reflux. Post/mid calf 3.9 mm, 1.7s reflux. Tech Note: Incompetent GSV, AASV, and SSV. Varicose vein mid medial calf measures 4.0 mm with 1.5s reflux. Prox/medial calf varicosity measures 4.2 mm with 2.3s reflux. Dist/medial thigh varicosity measures 4.1 mm with 1.1s reflux. LEFT LOWER EXTREMITY: Saphenofemoral Junction Reflux: Yes 13.7 mm 1.4 sec GSV: Diam (mm) Reflux/Time (sec) Proximal Thigh 9.6 Yes 0.8 Mid Thigh 6.2 Yes 1.2 Distal Thigh 5.7 No Prox Calf 7.0 Yes 1.7 Mid Calf 4.5 Yes 0.6 Saphenopopliteal Junction Relux: 5.5 mm Yes 1.8 SSV: Proximal Calf 6.1 Yes 2.8 Mid Calf 4.2 Yes 0.6 AASV: Proximal Thigh 6.1 Yes 0.6 Mid Thigh 4.2 Yes 1.2 Distal Thigh Yes Thrombi: No acute or chronic thrombus. Compressibility: Normal. Flow: Deep venous reflux. Pleating Supervisor: Med/dist calf near wound 2.6 mm, 0.8s reflux. Med/prox calf 5.1 mm, 1.7s reflux. Lat/mid calf 3.2 mm, 0.9s reflux. Dist/med calf 5.7 mm, 0.9s reflux. Tech Note: Incompetent GSV, SSV, and AASV. Varicose vein mid medial calf measures 4.8 mm with 0.5s reflux. Mid/medial calf varicosity measures 5.9 mm with 0.5s reflux. Dist/med thigh varicose vein measures 4.3 mm with 0.5s reflux. Medial knee varicose vein measures 5.0 mm with 0.5s reflux. CONCLUSION: 1. Moderate bilateral great saphenous, small saphenous and anterior accessory saphenous vein venous insufficiency with associated dilatation 2. Left leg deep vein reflux 3. Bilateral incompetent market director veins in the region of the patient's wounds 4. Bilateral incompetent branch saphenous tributaries/varicose veins Dictated by: Altagracia Flores MD on 03/17/2022 at 14:26 Approved by: Altagracia Flores MD on 03/17/2022 at 14:[address] [facility] -- FELISHA DIALLO ([id number]) 1960 F Date Time Provider Department 03/11/22 MARIANA ZAMORA [facility] During your visit today, we recorded the following information about you: Zee Vail 03/11/2022 10:40 AM Signed I called and spoke with the pt letting her know of the televisit with Dr. Zamora. Pt is aware. Allergies As of Date: 03/11/2022 Noted Allergy Reaction AZITHROMYCIN 07/18/2020 16 - Unknown CORTICOSTEROIDS (GLUCOCORTICOIDS) 03/10/2022 16 - Unknown DOXYCYCLINE 10/19/2020 14 - Other: See Comments 7 - Swelling Date Reviewed: 03/10/2022 Reviewed by: Gerda Ba - Fully Assessed Reason for Visit: Televisit [Other] Prescriptions as of 03/11/2022 - LANTUS SOLOSTAR U-100 INSULIN 100 unit/mL (3 mL) - VICTOZA 3-NINFA 0.6 mg/0.1 mL (18 mg/3 mL) - montelukast (SINGULAIR) 10 mg tablet - rosuvastatin (CRESTOR) 10 mg tablet - fluticasone-salmeterol (ADVAIR) 500-50 mcg/dose dsdv - ALPRAZolam (XANAX) 0.5 mg tablet - cephALEXin (KEFLEX) 500 mg capsule - FARXIGA 5 mg tablet - glipiZIDE (GLUCOTROL XL) 10mg 24 hr tablet - lamoTRIgine (LAMICTAL) 25 mg tablet - melatonin 5 mg tablet Melatonin Active 5 MG PO Daily at bedtime February 02, 2022 12:00am - venlafaxine ER (EFFEXOR XR) 150 mg 24 hr capsule - sulfamethoxazole-trimethop rim (BACTRIM DS,SEPTRA DS) 800-160 mg per tablet - meloxicam (MOBIC) 15 mg tablet Take 15 mg by mouth. - furosemide (LASIX) 40 mg tablet - fluticasone (FLONASE) 50 mcg/actuation nasal spray - fluconazole (DIFLUCAN) 100 mg tablet - albuterol HFA (PROVENTIL HFA, VENTOLIN HFA) 90 mcg/actuation inhaler - topiramate (TOPAMAX) 200 mg tablet - acetaminophen (TYLENOL) 500 mg tablet Acetaminophen Active 1500 MG PO Daily February 02, 2022 12:00am - HUMMAURA,CF, PEN 40 mg/0.4 mL pen kit - famotidine (PEPCID) 20 mg tablet - tolterodine ER (DETROL LA) 4 mg 24 hr capsule Problem List As Of Date: 03/11/2022 (None) Encounter Status:Closed by ZEE VAIL on 03/11/22 [facility] CBC W Auto Differential pane l (Bld)on 03-10-2022 Basophils (Bld) [#/Vol] 0.10 10*3/uL <0.11 k/uL [facility] Basophils/100 WBC (Bld) 1.1 % [facility] Differential cell count method Nom (Bld) Auto [facility] Eosinophils (Bld) [#/Vol] 0.33 10*3/uL <0.46 k/uL [facility] Eosinophils/100 WBC (Bld) 3.6 % [facility] Erythrocyte distribution width (RBC) [Ratio] 14.5 % 11.5 - 15.0 % [facility] Hematocrit (Bld) [Volume fraction] 43.5 % 36.0 - 46.0 % [facility] Hemoglobin (Bld) [Mass/Vol] 13.6 g/dL 11.5 - 15.5 g/dL [facility] Immature granulocytes (Bld) [#/Vol] 0.07 10*3/uL <0.10 k/uL [facility] Immature granulocytes/100 WBC (Bld) 0.8 % [facility] Lymphocytes (Bld) [#/Vol] 2.17 10*3/uL 1.00 - 4.00 k/uL [facility] Lymphocytes/100 WBC (Bld) 24.0 % [facility] MCH (RBC) [Entitic mass] 30.6 pg 26.0 - 34.0 pg [facility] MCHC (RBC) [Mass/Vol] 31.3 g/dL 30.5 - 36.0 g/dL [facility] MCV (RBC) [Entitic vol] 98.0 fL 80.0 - 100.0 fL [facility] Monocytes (Bld) [#/Vol] 0.89 10*3/uL High <0.87 k/uL [facility] Monocytes/100 WBC (Bld) 9.8 % [facility] Neutrophils (Bld) [#/Vol] 5.49 10*3/uL 1.45 - 7.50 k/uL [facility] Neutrophils/100 WBC (Bld) 60.7 % [facility] Nucleated RBC (Bld) [#/Vol] <0.01 k/uL [facility] Nucleated RBC/100 WBC (Bld) [Ratio] 0.0 /100 WBC [facility] Platelet mean volume (Bld) [Entitic vol] 8.7 fL Low 9.0 - 12.7 fL [facility] Platelets (Bld) [#/Vol] 232 10*3/uL 150 - 400 k/uL [facility] RBC (Bld) [#/Vol] 4.44 10*6/uL 3.90 - 5.20 m/uL [facility] WBC (Bld) [#/Vol] 9.05 10*3/uL 3.70 - 11.00 k/uL [facility] Comprehensive metabolic 2000 panelon 03-10-2022 Albumin [Mass/Vol] 4.1 g/dL 3.9 - 4.9 g/dL [facility] ALP [Catalytic activity/Vol] 107 U/L 34 - 123 U/L [facility] ALT [Catalytic activity/Vol] 21 U/L 7 - 38 U/L [facility] Anion gap [Moles/Vol] 8 mmol/L Low 9 - 18 mmol/L [facility] AST [Catalytic activity/Vol] 24 U/L 13 - 35 U/L [facility] Bilirubin [Mass/Vol] 0.3 mg/dL 0.2 - 1 .3 mg/dL [facility] Calcium [Mass/Vol] 9.4 mg/dL 8.5 - 10. 2 mg/dL [facility] Chloride [Moles/Vol] 101 mmol/L 97 - 10 5 mmol/L [facility] CO2 [Moles/Vol] 25 mmol/L 22 - 30 mmol/L [facility] Creatinine [Mass/Vol] 0.95 mg/dL 0.58 - 0.96 mg/dL [facility] Estimated Glomerular Filtration Rate 68 mL/min/1.73m >=60 mL/min/1.7 3m [facility] Glucose [Mass/Vol] 270 mg/dL High 74 - 99 mg/dL [facility] Potassium [Moles/Vol] 4.0 mmol/L 3.7 - 5.1 mmol/L [facility] Protein [Mass/Vol] 6.9 g/dL 6.3 - 8.0 g/dL [facility] Sodium [Moles/Vol] 134 mmol/L Low 136 - 144 mmol/L [facility] Urea nitrogen [Mass/Vol] 17 mg/dL 7 - 21 mg/dL [facility] Glucose Poct Glucometerson Commemt1 Glu2: Cleaned Meter Normal [facility] Comment on above: Result Comment: PERF ORMED BY: [facility] Dolly [place] [address] PATHOLOGIST AURICULAR THERAPIST NORM PARMAR M.D. Performed By: #### G LULS #### Point of Care testing , Glucose [Mass/Vol] 189 mg/dL Normal [facility] Comment on above: Result Comment: [place] Glucose Reference Range is dependent on time and content of last meal. Glucose of more than 200 mg/dL in a nonstressed, ambulatory subject supports the diagnosis of Diabetes Mellitus. Performed By: #### G THUAN #### Point of Care testing , Fady 02-11-2022 L ------ Specimen: [id number] Received: 02/12/22 Status: MAC Aguayo Num: [id number] Spec Type: Surgical Subm Dr: Julián Ortiz MD Tissues: A Soft Tissue/Surgical Margin-Other than Tumor,Mass,Lip or Marina (RT VAGINAL MAS Procedures: HE/2, Gross/Micro L4, IHC First AB, IHC Add AB/4 Age/ Patient Sex Location Account Attending Physician Felisha Diallo 61/F [place] [id number] Julián Ortiz MD SPEC NUM: [id number] RECD: 02/12/22 STATUS: MAC AGUAYO NUM: [id number] BECKY: 02/11/22 DR: Julián Ortiz MD ENTERED: 02/12/[address] [facility]: TIFFANI TYPE: Surgical DEPT: S ORDERED: HE/2, Gross/Micro L4, IHC First AB, IHC Add AB/4 ORDERED: HE/2, Gross/Micro L4, IHC First AB, IHC Add AB/4 Supplemental Report Addendum 1 Entered: 03/05/22 This case was sent to [facility] with their interpretation as follows FINAL DIAGNOSIS Vaginal mass, right, biopsy ([id number], 02/11/2022, A1-A2) -Invasive squamous cell carcinoma, HPV-associated. Please see [facility] report ([id number]) for further details Addendum Signed (signature on file) Marce Stallworth MD 03/05/22 1256 Pathological Diagnosis Vaginal mass, right, biopsy: Squamous cell carcinoma. Note: Poorly differentiated neoplasm is noted. The neoplastic cells are positive for P40 and P16 and negative for synaptophysin and chromogranin. Controls are satisfactory. Specimen: [id number] Received: 02/12/22 Status: MAC Aguayo Num: [id number] Spec Type: Surgical Subm Dr: Julián Ortiz MD Tissues: A Soft Tissue/Surgical Margin-Other than Tumor,Mass,Lip or Marina (RT VAGINAL MAS Procedures: HE/2, Gross/Micro L4, IHC First AB, IHC Add AB/4 Patient: Felisha Diallo [id number] (Continued) Specimen: [id number] Received: 02/12/22 (Continued) Signed (signature on file) Marce Stallworth MD 02/18/22 1326 Specimen: [id number] Received: 02/12/22 Status: MAC Aguayo Num: [id number] Spec Type: Surgical Subm Dr: Julián Ortiz MD Tissues: A Soft Tissue/Surgical Margin-Other than Tumor,Mass,Lip or Marina (RT VAGINAL MAS Procedures: HE/2, Gross/Micro L4, IHC First AB, IHC Add AB/4 Patient: Felisha Diallo [id number] (Continued) Specimen: [id number] Received: 02/12/22 (Continued) Clinical Information Vaginal mass Gross Description Received in formalin in a container with the patient's name and labeled as right vaginal mass. It consists of multiple fragments of pink-fagan tissue measuring in 2 x 2 x 1 cm. The specimen is entirely subcu submitted in two cassettes. CPT Codes 02653, 80387, 84389o0 Specimen: [id number] Received: 02/12/22 Status: MAC Aguayo Num: [id number] Spec Type: Surgical Subm Dr: Julián Ortiz MD Tissues: A Soft Tissue/Surgical Margin-Other than Tumor,Mass,Lip or Marina (RT VAGINAL MAS Procedures: HE/2, Gross/Micro L4, IHC First AB, IHC Add AB/4 Patient: Felisha Diallo [id number] (Continued) Signed (signature on file) Marce Stallworth MD 02/18/22 1326 Normal [facility] [place] SARS-CoV-2 (COVID-19) RNA YOVANA+probe Ql (Unsp spec) Negative Normal Negative [facility] Comment on above: Order Comment: Healt hcare Worker?: N Result Comment: Testing for SARS-CoV-2 by RT-PCR This test was developed and its performance characteristics determined by [employer] ([employer]) and validated at the [facility]. This test has not been FDA cleared or approved. This test has been authorized by FDA under an Emergency Use Authorization (EUA). This test has been validated in accordance with the FDA's Guidance Document (Policy for Diagnostics Testing in Laboratories Certified to Perform High Complexity Testing under CLIA prior to Emergency Use Authorization for Coronavirus Disease-2019 during the Public Health Emergency) issued on August 02, 2019. This test is only authorized for the duration of time the declaration that circumstances exist justifying the authorization of the emergency use of in vitro diagnostic tests for detection of SARS-CoV-2 virus and/or diagnosis of COVID-19 infection under section 564(b)(1) of the Act, 21 U.S.C. 360bbb-3(b)(1), unless the authorization is terminated or revoked sooner. PERFORMED BY: [place] [address] PATHOLOGIST AURICULAR THERAPIST NORM PARMAR M.D. Performed By: #### C OVID 19 [facility] #### [address] COVID-19 Positive/NegativeOr dered By: Julián Ortiz on 02-09-2022 SARS-CoV-2 (COVID-19) N gene YOVANA+probe Ql (Resp) Negative Negative [facility] Comment on above: Testing for SARS-CoV -2 by RT-PCRThis test was developed and its performance characteristics determined by [employer] ([employer]) and validated at the [facility]. This test has not been FDA cleared or approved. This test has been authorized by FDA under an Emergency Use Authorization (EUA). This test has been validated in accordance with the FDA's Guidance Document (Policy for Diagnostics Testing in Laboratories Certified to Perform High Complexity Testing under CLIA prior to Emergency Use Authorization for Coronavirus Disease-2019 during the Public Health Emergency) issued on August 02, 2019. This test is only authorized for the duration of time the declaration that circumstances exist justifying the authorization of the emergency use of in vitro diagnostic tests for detection of SARS-CoV-2 virus and/or diagnosis of COVID-19 infection under section 564(b)(1) of the Act, 21 U.S.C. 360bbb-3(b)(1), unless the authorization is terminated or revoked sooner. Basic Metabolic Panelon 10-0 Anion gap [Moles/Vol] 16.9 mmol/L High 6.0-15.0 [facility] Comment on above: Order Comment: Reaso n for Exam Chronic kidney disease, stage III (moderate);Diabetes mellit Reason for Exam Chronic kidney disease, stage III (moderate);Diabetes mellit Reason for Exam Chronic kidney disease, stage III (moderate);Diabetes mellit Reason for Exam Chronic kidney disease, stage III (moderate);Diabetes mellit Reason for Exam Chronic kidney disease, stage III (moderate);Diabetes mellit Reason for Exam Chronic kidney disease, stage III (moderate);Diabetes mellit Performed By: #### C BC, BMP #### [facility] [address] Calcium [Mass/Vol] 9.3 mg/dL Normal 8.2-10.2 [facility] Comment on above: Order Comment: Reaso n for Exam Chronic kidney disease, stage III (moderate);Diabetes mellit Reason for Exam Chronic kidney disease, stage III (moderate);Diabetes mellit Reason for Exam Chronic kidney disease, stage III (moderate);Diabetes mellit Reason for Exam Chronic kidney disease, stage III (moderate);Diabetes mellit Reason for Exam Chronic kidney disease, stage III (moderate);Diabetes mellit Reason for Exam Chronic kidney disease, stage III (moderate);Diabetes mellit Result Comment: PERF ORMED BY: [place] [address] PATHOLOGIST AURICULAR THERAPIST NORM PARMAR M.D. Performed By: #### C BC, BMP #### [facility] [address] [place] [address] [place] Chloride [Moles/Vol] 102 mmol/L Normal 95-114 [facility] Comment on above: Order Comment: Reaso n for Exam Chronic kidney disease, stage III (moderate);Diabetes mellit Reason for Exam Chronic kidney disease, stage III (moderate);Diabetes mellit Reason for Exam Chronic kidney disease, stage III (moderate);Diabetes mellit Reason for Exam Chronic kidney disease, stage III (moderate);Diabetes mellit Reason for Exam Chronic kidney disease, stage III (moderate);Diabetes mellit Reason for Exam Chronic kidney disease, stage III (moderate);Diabetes mellit Performed By: #### C BC, BMP #### [facility] [address] [place] [id number] [facility] CO2 [Moles/Vol] 21.1 mmol/L Low 22.0-30.0 [facility] Comment on above: Order Comment: Reaso n for Exam Chronic kidney disease, stage III (moderate);Diabetes mellit Reason for Exam Chronic kidney disease, stage III (moderate);Diabetes mellit Reason for Exam Chronic kidney disease, stage III (moderate);Diabetes mellit Reason for Exam Chronic kidney disease, stage III (moderate);Diabetes mellit Reason for Exam Chronic kidney disease, stage III (moderate);Diabetes mellit Reason for Exam Chronic kidney disease, stage III (moderate);Diabetes mellit Performed By: #### C BC, BMP #### [facility] [address] Creatinine [Mass/Vol] 1.08 mg/dL High 0.44-1.03 [facility] Comment on above: Order Comment: Reaso n for Exam Chronic kidney disease, stage III (moderate);Diabetes mellit Reason for Exam Chronic kidney disease, stage III (moderate);Diabetes mellit Reason for Exam Chronic kidney disease, stage III (moderate);Diabetes mellit Reason for Exam Chronic kidney disease, stage III (moderate);Diabetes mellit Reason for Exam Chronic kidney disease, stage III (moderate);Diabetes mellit Reason for Exam Chronic kidney disease, stage III (moderate);Diabetes mellit Performed By: #### C BC, BMP #### [facility] [address] [place] [address] [place] Estimated GFR ( Beth > 60 [facility] Comment on above: Order Comment: Reaso n for Exam Chronic kidney disease, stage III (moderate);Diabetes mellit Reason for Exam Chronic kidney disease, stage III (moderate);Diabetes mellit Reason for Exam Chronic kidney disease, stage III (moderate);Diabetes mellit Reason for Exam Chronic kidney disease, stage III (moderate);Diabetes mellit Reason for Exam Chronic kidney disease, stage III (moderate);Diabetes mellit Reason for Exam Chronic kidney disease, stage III (moderate);Diabetes mellit Result Comment: GFR estimated reference range: According to KDOQI guidelines, <60 ml/min/1.73m2 is sufficient to diagnose a patient with chronic kidney disease. Performed By: #### C BC, BMP #### [facility] [address] Estimated GFR (Non- Am 52 Normal [facility] Comment on above: Order Comment: Reaso n for Exam Chronic kidney disease, stage III (moderate);Diabetes mellit Reason for Exam Chronic kidney disease, stage III (moderate);Diabetes mellit Reason for Exam Chronic kidney disease, stage III (moderate);Diabetes mellit Reason for Exam Chronic kidney disease, stage III (moderate);Diabetes mellit Reason for Exam Chronic kidney disease, stage III (moderate);Diabetes mellit Reason for Exam Chronic kidney disease, stage III (moderate);Diabetes mellit Performed By: #### C BC, BMP #### [facility] [address] [place] [id number] [facility] Glucose [Mass/Vol] 315 mg/dL High 70-100 [facility] Comment on above: Order Comment: Reaso n for Exam Chronic kidney disease, stage III (moderate);Diabetes mellit Reason for Exam Chronic kidney disease, stage III (moderate);Diabetes mellit Reason for Exam Chronic kidney disease, stage III (moderate);Diabetes mellit Reason for Exam Chronic kidney disease, stage III (moderate);Diabetes mellit Reason for Exam Chronic kidney disease, stage III (moderate);Diabetes mellit Reason for Exam Chronic kidney disease, stage III (moderate);Diabetes mellit Result Comment: [facility] Glucose Reference Range is dependent on time and content of last meal. Glucose of more than 200 mg/dL in a nonstressed, ambulatory subject supports the diagnosis of Diabetes Mellitus. ADA recommended reference range Performed By: #### C BC, BMP #### [facility] [address] [place] [id number] [facility] Potassium [Moles/Vol] 4.0 mmol/L Normal 3.5-5.1 [facility] Comment on above: Order Comment: Reaso n for Exam Chronic kidney disease, stage III (moderate);Diabetes mellit Reason for Exam Chronic kidney disease, stage III (moderate);Diabetes mellit Reason for Exam Chronic kidney disease, stage III (moderate);Diabetes mellit Reason for Exam Chronic kidney disease, stage III (moderate);Diabetes mellit Reason for Exam Chronic kidney disease, stage III (moderate);Diabetes mellit Reason for Exam Chronic kidney disease, stage III (moderate);Diabetes mellit Performed By: #### C BC, BMP #### [address] Sodium [Moles/Vol] 136 mmol/L Normal 136-146 [facility] Comment on above: Order Comment: Reaso n for Exam Chronic kidney disease, stage III (moderate);Diabetes mellit Reason for Exam Chronic kidney disease, stage III (moderate);Diabetes mellit Reason for Exam Chronic kidney disease, stage III (moderate);Diabetes mellit Reason for Exam Chronic kidney disease, stage III (moderate);Diabetes mellit Reason for Exam Chronic kidney disease, stage III (moderate);Diabetes mellit Reason for Exam Chronic kidney disease, stage III (moderate);Diabetes mellit Performed By: #### C BC, BMP #### [address] Urea nitrogen [Mass/Vol] 15 mg/dL Normal 9-23 [facility] Comment on above: Order Comment: Reaso n for Exam Chronic kidney disease, stage III (moderate);Diabetes mellit Reason for Exam Chronic kidney disease, stage III (moderate);Diabetes mellit Reason for Exam Chronic kidney disease, stage III (moderate);Diabetes mellit Reason for Exam Chronic kidney disease, stage III (moderate);Diabetes mellit Reason for Exam Chronic kidney disease, stage III (moderate);Diabetes mellit Reason for Exam Chronic kidney disease, stage III (moderate);Diabetes mellit Performed By: #### C BC, BMP #### [facility] [address] [place] [address] Basophils Auto (Bld) [#/Vol] Ordered By: Julián Ortiz on 02-02-2022 Basophils (Bld) [#/Vol] 0.0 10*3/uL 0.0-0.2 [facility] Basophils/100 WBC Auto (Bld) Ordered By: Julián Ortiz on 02-02-2022 Basophils/100 WBC (Bld) 0.2 % . [facility] Blood hemoglobin measurement (mass/volume)Ordered By: Julián Ortiz on 02-02-2022 Hemoglobin (Bld) [Mass/Vol] 13.7 g/dL 11.8-15.4 [facility] Blood leukocytes automated c ount (number/volume)Ordered By: Julián Ortiz on 02-02-2022 WBC (Bld) [#/Vol] 7.4 10*3/uL 4.5-11.0 [facility] Complete Blood Count Auto Di ffon 02-02-2022 Basophils (Bld) [#/Vol] 0.0 10*3/uL Normal 0.0-0.2 [facility] Comment on above: Result Comment: PERF ORMED BY: [place] [address] PATHOLOGIST AURICULAR THERAPIST NORM PARMAR M.D. Performed By: #### C BC, BMP #### [address] Basophils/100 WBC (Bld) 0.2 % Normal . [facility] Comment on above: Performed By: #### C BC, BMP #### [address] Eosinophils (Bld) [#/Vol] 0.3 10*3/uL Normal 0.0-0.45 [facility] Comment on above: Performed By: #### C BC, BMP #### [address] Eosinophils/100 WBC (Bld) 4.7 % Normal . [facility] Comment on above: Performed By: #### C BC, BMP #### [address] Erythrocyte distribution width (RBC) [Ratio] 14.8 % Normal 11.9-15.3 [facility] Comment on above: Performed By: #### C BC, BMP #### [address] Hematocrit (Bld) [Volume fraction] 41.9 % Normal 34.0-46.4 [facility] Comment on above: Performed By: #### C BC, BMP #### [address] Hemoglobin (Bld) [Mass/Vol] 13.7 g/dL Normal 11.8-15.4 [facility] Comment on above: Performed By: #### C BC, BMP #### [facility] [address] Lymphocytes (Bld) [#/Vol] 2.0 10*3/uL Normal 1.00-4.8 [facility] Comment on above: Performed By: #### C BC, BMP #### [facility] [address] Lymphocytes/100 WBC (Bld) 27.0 % Normal . [facility] Comment on above: Performed By: #### C BC, BMP #### [address] MCH (RBC) [Entitic mass] 31.8 pg Normal 24.7-34.3 [facility] Comment on above: Performed By: #### C BC, BMP #### [address] MCV (RBC) [Entitic vol] 97.1 fL Normal 80-100 [facility] Comment on above: Performed By: #### C BC, BMP #### [address] Mean Corpuscular HGB Conc 32.7 g/dL Normal 32.0-35.0 [facility] Comment on above: Performed By: #### C BC, BMP #### [facility] [address] Monocytes (Bld) [#/Vol] 0.7 10*3/uL Normal 0.0-0.8 [facility] Comment on above: Performed By: #### C BC, BMP #### [facility] [address] [place] [address] [place] Monocytes/100 WBC (Bld) 9.4 % Normal . [facility] Comment on above: Performed By: #### C BC, BMP #### [place] [address] [place] Neutrophils (Bld) [#/Vol] 4.3 10*3/uL Normal 1.8-7.7 [facility] Comment on above: Performed By: #### C MAIRA, BMP #### [facility] [address] [place] [address] [place] Neutrophils/100 WBC (Bld) 58.7 % Normal . [facility] Comment on above: Performed By: #### C MAIRA, BMP #### [facility] [address] [place] [address] [place] Nucleated RBC/100 WBC (Bld) [Ratio] 0.1 % Normal 0-0.5 [facility] Comment on above: Performed By: #### C MAIRA, BMP #### [address] Platelet mean volume (Bld) [Entitic vol] 6.7 fL Normal 6.3-10.7 [facility] Comment on above: Performed By: #### C MAIRA, BMP #### [address] Platelets (Bld) [#/Vol] 290 10*3/uL Normal 150-450 [facility] Comment on above: Performed By: #### C MAIRA, BMP #### [address] RBC (Bld) [#/Vol] 4.32 10*6/uL Normal 3.60-5.00 [facility] Comment on above: Performed By: #### C MAIRA, BMP #### [place] [address] [place] WBC (Bld) [#/Vol] 7.4 10*3/uL Normal 4.5-11.0 [facility] Comment on above: Performed By: #### Saran RAO, BMP #### [place] [address] [place] Creatinine and Glomerular fi ltration rate.predicted panel (S/P/Bld)Ordered By: Julián Ortiz on 02-02-2022 Creatinine [Mass/Vol] 1.08 mg/dL 0.44-1.03 [facility] ECG 12 lead ECGon 02-02-2022 ECG 12 lead ECG [facility] [place] [address] Electrocardiograph Report Signed Patient: Felisha Diallo MR#: [id number] : 1960 Acct:[id number] Age/Sex: 61 / F ADM Date: 02/02/22 Loc: Room: Type: [facility] Attending Dr: Julián Ortiz MD Ordering Provider: Julián Ortiz MD Date of Service: 02/02/2208/22/1107 ECG/ECG 12 lead ECG: pst Copies to: Test Reason : Blood Pressure : / mmHG Vent. Rate : 096 BPM Atrial Rate : 096 BPM P-R Int : 174 ms QRS Dur : 078 ms QT Int : 356 ms P-R-T Axes : 029 -18 056 degrees QTc Int : 449 ms Normal sinus rhythm Normal ECG When compared with ECG of 20-OCT-2020 03:02, No significant change was found Confirmed by BRIAN CUNNINGHAM DO ([id number]) on 02/02/2022 12:53:57 PM Referred By: CHELSY ORTIZ Electronically Signed By:BRIAN CUNNINGHAM DO Transcribed By: MUS Signed By Brian Cunningham DO 02/02 1254 Normal [facility] Eosinophils Auto (Bld) [#/Vo l]Ordered By: Julián Ortiz on 02-02-2022 Eosinophils (Bld) [#/Vol] 0.3 10*3/uL 0.0-0.45 [facility] Eosinophils/100 WBC Auto (Bl d)Ordered By: Julián Ortiz on 02-02-2022 Eosinophils/100 WBC (Bld) 4.7 % . [facility] Erythrocyte distribution wid th Auto (RBC) [Ratio]Ordered By: Julián Ortiz on 02-02-2022 Erythrocyte distribution width (RBC) [Ratio] 14.8 % 11.9-15.3 [facility] Estimated glomerular filtrat ion rate (GFR) non- AmericanOrdered By: Julián Ortiz on 02-02-2022 GFR/1.73 sq M.predicted among non-blacks MDRD (S/P/Bld) [Vol rate/Area] 52 mL/Min [facility] Hematocrit Auto (Bld) [Volum e fraction]Ordered By: Julián Ortiz on 02-02-2022 Hematocrit (Bld) [Volume fraction] 41.9 % 34.0-46.4 [facility] - Hematology and Cell countsOrdered By: Julián Ortiz on 02-02-2022 Nucleated RBC/100 WBC (Bld) [Ratio] 0.1 % 0-0.5 [facility] Lymphocytes Auto (Bld) [#/Vo l]Ordered By: Julián Ortiz on 02-02-2022 Lymphocytes (Bld) [#/Vol] 2.0 10*3/uL 1.00-4.8 [facility] Lymphocytes/100 WBC Auto (Bl d)Ordered By: Julián Ortiz on 02-02-2022 Lymphocytes/100 WBC (Bld) 27.0 % . [facility] MCH Auto (RBC) [Entitic mass ]Ordered By: Julián Ortiz on 02-02-2022 MCH (RBC) [Entitic mass] 31.8 pg 24.7-34.3 [facility] MCHC Auto (RBC) [Mass/Vol]Or dered By: Julián Ortiz on 02-02-2022 MCHC (RBC) [Mass/Vol] 32.7 g/dL 32.0-35.0 [facility] MCV Auto (RBC) [Entitic vol] Ordered By: Julián Ortiz on 02-02-2022 MCV (RBC) [Entitic vol] 97.1 fL 80-100 [facility] Monocytes Auto (Bld) [#/Vol] Ordered By: Julián Ortiz on 02-02-2022 Monocytes (Bld) [#/Vol] 0.7 10*3/uL 0.0-0.8 [facility] Monocytes/100 WBC Auto (Bld) Ordered By: Julián Ortiz on 02-02-2022 Monocytes/100 WBC (Bld) 9.4 % . [facility] Neutrophils Auto (Bld) [#/Vo l]Ordered By: Julián Ortiz on 02-02-2022 Neutrophils (Bld) [#/Vol] 4.3 10*3/uL 1.8-7.7 [facility] Neutrophils/100 WBC Auto (Bl d)Ordered By: Julián Ortiz on 02-02-2022 Neutrophils/100 WBC (Bld) 58.7 % . [facility] No Panel InformationOrdered By: Julián Ortiz on 02-02-2022 Estimated GFR () > 60 mL/Min [facility] Comment on above: GFR estimated refere nce range: According to KDOQI guidelines, <60 ml/min/1.73m2 is sufficient to diagnose a patient with chronic kidney disease. Pharmacy Creatinine Clearance (Chem N/A [facility] Platelet mean volume Auto (B ld) [Entitic vol]Ordered By: Julián Ortiz on 02-02-2022 Platelet mean volume (Bld) [Entitic vol] 6.7 fL 6.3-10.7 [facility] Platelets Auto (Bld) [#/Vol] Ordered By: Julián Ortiz on 02-02-2022 Platelets (Bld) [#/Vol] 290 10*3/uL 150-450 [facility] RBC Auto (Bld) [#/Vol]Ordere d By: Julián Ortiz on 02-02-2022 RBC (Bld) [#/Vol] 4.32 10*6/uL 3.60-5.00 [facility] Serum or plasma anion gap de terminationOrdered By: Julián Ortiz on 02-02-2022 Anion gap [Moles/Vol] 16.9 mmol/L 6.0-15.0 [facility] Serum or plasma calcium abdi urement (mass/volume)Ordered By: Julián Ortiz on 02-02-2022 Calcium [Mass/Vol] 9.3 mg/dL 8.2-10.2 [facility] Serum or plasma chloride maryjane surement (moles/volume)Ordered By: Julián Ortiz on 02-02-2022 Chloride [Moles/Vol] 102 mmol/L 95-114 [facility] Serum or plasma glucose abdi urement (mass/volume)Ordered By: Julián Ortiz on 02-02-2022 Glucose [Mass/Vol] 315 mg/dL 70-100 [facility] Comment on above: ADA recommended refe rence rangeRandom Glucose Reference Range is dependent on time and content of last meal. Glucose of more than 200 mg/dL in a nonstressed, ambulatory subject supports the diagnosis of Diabetes Mellitus. Serum or plasma potassium me asurement (moles/volume)Ordered By: Julián Ortiz on 02-02-2022 Potassium [Moles/Vol] 4.0 mmol/L 3.5-5.1 [facility] Serum or plasma sodium measu rement (moles/volume)Ordered By: Julián Ortiz on 02-02-2022 Sodium [Moles/Vol] 136 mmol/L 136-146 [facility] Serum or plasma total carbon dioxide measurement (moles/volume)Ordered By: Julián Ortiz on 02-02-2022 CO2 [Moles/Vol] 21.1 mmol/L 22.0-30.0 [facility] Serum or plasma urea nitroge n measurement (mass/volume)Ordered By: Julián Ortiz on 02-02-2022 Urea nitrogen [Mass/Vol] 15 mg/dL 9-23 [facility] PTH INTACTon 01-14-2022 PTH, Intact 25 pg/mL Normal 15-65 [facility] Comment on above: Performed By: #### F ERR, FETIBC #### [facility] [address] [address] [address] Adrianne Johnson VIT D 25-OH LABCORPon 2021 Vitamin D, 25-Hydroxy 29.4 ng/mL Critically low 30.0-100.0 [facility] Comment on above: Result Comment: Ale min D deficiency has been defined by the Geff of Medicine and an Endocrine Society practice guideline as a level of serum 25-OH vitamin D less than 20 ng/mL (1,2). The Endocrine Society went on to further define vitamin D insufficiency as a level between 21 and 29 ng/mL (2). 1. IOM (Geff of Medicine). 2010. Dietary reference intakes for calcium and D. [place]: The National Academies Press. 2. Rafal ANTON, Jose David ROSENBAUM, Sue JAMA, et al. Evaluation, treatment, and prevention of vitamin D deficiency: an Endocrine Society clinical practice guideline. JCEM. 2010; 96(7):1911-30. Performed By: #### V ITADLC #### [facility] [address] [place] [address] Dr. Adrianne Johnson FERRITINon 01-13-2022 Ferritin [Mass/Vol] 40.0 ng/mL Normal 8.0-252.0 [facility] Comment on above: Performed By: #### F ERR, FETIBC #### [facility] [address] [place] [address] Dr. Adrianne Johnson HEMOGRAM AND PLATELon 2021 Hematocrit (Bld) [Volume fraction] 42.3 % Normal 36.0-48.0 [facility] Comment on above: Performed By: #### B MP #### [facility] [address] [place] [address] Dr. Adrianne Johnson Hemoglobin (Bld) [Mass/Vol] 13.5 g/dL Normal 12.0-16.0 [facility] Comment on above: Performed By: #### B MP #### [facility] [address] [place] [address] Dr. Adrianne Johnson MCH (RBC) [Entitic mass] 32.1 pg Normal 26.7-34.0 [facility] Comment on above: Performed By: #### B MP #### [facility] [address] [place] [address] Dr. Adrianne Johnson MCHC (RBC) [Mass/Vol] 31.9 g/dL Normal 29.9-35.2 [facility] Comment on above: Performed By: #### B MP #### [facility] [address] [place] [address] Dr. Adrianne Johnson MCV (RBC) [Entitic vol] 100.5 fL Critically high 81.0-99.0 [facility] Comment on above: Performed By: #### B MP #### [facility] [address] [place] [address] Dr. Adrianne Johnson PLT 244 103/ul Normal 150-450 [facility] Comment on above: Performed By: #### B MP #### [facility] [address] [place] [address] Dr. Adrianne Johnson RBC 4.21 106/ul Normal 4.20-5.40 [facility] Comment on above: Performed By: #### B MP #### [facility] [address] [place] [address] Dr. Adrianne Johnson WBC 10.4 103/ul Normal 4.0-11.0 [facility] Comment on above: Performed By: #### B MP #### [facility] [address] [place] [address] Dr. Adrianne Johnson IRON AND TIBCon 01-13-2022 % SATURATION 16.3 % Normal [facility] Comment on above: Performed By: #### F ERR, FETIBC #### [facility] [address] [place] [address] Dr. Adrianne Johnson Iron [Mass/Vol] 60.0 ug/dL Normal 50.0-170.0 [facility] Comment on above: Performed By: #### F ERR, FETIBC #### [facility] [address] [place] [address] Dr. Adrianne Johnson TIBC DIRECT 369.0 ug/dL Normal 250.0-450. 0 [facility] Comment on above: Performed By: #### F ERR, FETIBC #### [facility] [address] [place] [address] Dr. Adrianne Johnson MAGNESIUMon 01-13-2022 Magnesium [Mass/Vol] 2.0 mg/dL Normal 1.8-2.4 [facility] Comment on above: Performed By: #### B MP #### [facility] [address] [place] [address] Dr. Adrianne Johnson RENAL FUNCTION PANELon 01-13 Albumin [Mass/Vol] 3.7 g/dL Normal 3.4-5.[address] [facility] Comment on above: Performed By: #### B MP #### [facility] [address] [place] [address] Dr. Adrianne Johnson Calcium [Mass/Vol] 8.8 mg/dL Normal 8.5-10.[address] [facility] Comment on above: Performed By: #### B MP #### [facility] [address] [address] [address] Adrianne Johnson Chloride [Moles/Vol] 103 mmol/L Normal 98-107 [facility] Comment on above: Performed By: #### B MP #### [facility] [address] [address] [address] Adrianne Johnson CO2 [Moles/Vol] 23.6 mmol/L Normal 21.0-32.0 [facility] Comment on above: Performed By: #### B MP #### [facility] [address] [place] [address] Dr. Adrianne Johnson Creatinine [Mass/Vol] 1.29 mg/dL Critically high 0.55-1.02 [facility] Comment on above: Performed By: #### B MP #### [facility] [address] [place] [address] Dr. Adrianne Johnson EGFR-AF DJIBOUTIAN 51 mL/min/1.73m2 Critically low >=60 [facility] Comment on above: Performed By: #### B MP #### [facility] [address] [place] [address] Dr. Adrianne Johnson EGFR-NON AF DJIBOUTIAN 42 mL/min/1.73m2 Critically low >=60 [facility] Comment on above: Performed By: #### B MP #### [facility] [address] [place] [address] Dr. Adrianne Johnson Glucose [Mass/Vol] 326 mg/dL Critically high 74-106 [facility] Comment on above: Performed By: #### B MP #### [facility] [address] [address] [address] Adrianne Johnson Phosphate [Mass/Vol] 3.3 mg/dL Normal 2.6-4.7 [facility] Comment on above: Performed By: #### B MP #### [facility] [address] [place] [address] Dr. Adrianne Johnson Potassium [Moles/Vol] 3.8 mmol/L Normal 3.5-5.1 [facility] Comment on above: Performed By: #### B MP #### [facility] [address] [place] [address] Dr. Adrianne Johnson Sodium [Moles/Vol] 137 mmol/L Normal 136-[address] [facility] Comment on above: Performed By: #### B MP #### [facility] [address] [place] [address] Dr. Adrianne Johnson Urea nitrogen [Mass/Vol] 19.0 mg/dL Critically high 7.0-18.0 [facility] Comment on above: Performed By: #### B MP #### [facility] [address] [place] [address] Dr. Adrianne Johnson UA RANDOM W/MICROSCOPICon BACTERIA NONE SEEN Normal NONE SEEN [facility] Comment on above: Performed By: #### B MP #### [facility] [address] [place] [address] Dr. Adrianne Johnson Bilirubin Ql (U) Negative Normal NEGATIVE [facility] Comment on above: Performed By: #### B MP #### [facility] [address] [place] [address] Dr. Adrianne Johnson CAST NONE SEEN Normal NONE SEEN [facility] Comment on above: Performed By: #### B MP #### [facility] [address] [place] [address] Dr. Adrianne Johnson Clarity (U) CLEAR Normal CLEAR [facility] Comment on above: Performed By: #### B MP #### [facility] [address] [place] [address] Dr. Adrianne Johnson Color (U) LT. YELLOW Normal YELLOW [facility] Comment on above: Performed By: #### B MP #### [facility] [address] [place] [address] Dr. Adrianne Johnson Crystals LM Nom (Urine sed) NONE SEEN Normal NONE SEEN [facility] Comment on above: Performed By: #### B MP #### [facility] [address] [place] [address] Dr. Adrianne Johnson Epithelial cells LM Ql (Urine sed) FEW Abnormal NONE SEEN /RARE [facility] Comment on above: Performed By: #### B MP #### [facility] [address] [place] [address] Dr. Adrianne Johnson Glucose Ql (U) >1000 Abnormal NEGATIVE [facility] Comment on above: Performed By: #### B MP #### [facility] [address] [place] [address] Dr. Adrianne Johnson Hemoglobin Ql (U) TRACE-INTACT Abnormal NEGATIVE [facility] Comment on above: Performed By: #### B MP #### [facility] [address] [place] [address] Dr. Adrianne Johnson Ketones Ql (U) Negative Normal NEGATIVE [facility] Comment on above: Performed By: #### B MP #### [facility] [address] [place] [address] Dr. Adrianne Johnson LEUKOCYTES Negative Normal NEGATIVE [facility] Comment on above: Performed By: #### B MP #### [facility] [address] [place] [address] Dr. Adrianne Johnson MUCOUS NONE SEEN Normal NONE SEEN [facility] Comment on above: Performed By: #### B MP #### [facility] [address] [place] [address] Dr. Adrianne Johnson Nitrite Ql (U) Negative Normal NEGATIVE [facility] Comment on above: Performed By: #### B MP #### [facility] [address] [place] [address] Dr. Adrianne Johnson pH (U) 6.0 [pH] Normal 5-9 [facility] Comment on above: Performed By: #### B MP #### [facility] [address] [place] [address] Dr. Adrianne Johnson RBC 2-5 Abnormal 0-2 [facility] Comment on above: Performed By: #### B MP #### [facility] [address] [place] [address] Dr. Adrianne Johnson SPEC GRAVITY <=1.005 Abnormal 1.005-<=1. 025 [facility] Comment on above: Performed By: #### B MP #### [facility] [address] [address] [address] Adrianne Johnson UA PROTEIN Negative Normal NEGATIVE/ TRACE [facility] Comment on above: Performed By: #### B MP #### [facility] [address] [address] [address] Adrianne Johnson Urobilinogen Qn (U) 0.2 {Bob'U}/dL Normal 0.2 - 1. 0 [facility] Comment on above: Performed By: #### B MP #### [facility] [address] [place] [address] Dr. Adrianne Johnson WBC 5-10 Abnormal NONE SEEN [facility] Comment on above: Performed By: #### B MP #### [facility] [address] [place] [address] Dr. Adrianne Johnson URIC ACID SERUMon 01-13-2022 Urate [Mass/Vol] 4.6 mg/dL Normal 2.6-6.0 [facility] Comment on above: Performed By: #### R ENAL, URIC, MG #### [facility] [address] [place] [address] Dr. Adrianne Johnson URINE T PROTEIN CREAT RATIOo n 01-13-2022 Protein (U) [Mass/Vol] 19.9 mg/dL Critically high <=12.0 [facility] Comment on above: Performed By: #### F ERR, FETIBC #### [facility] [address] [place] [address] Dr. Adrianne Johnson UR PROT CREAT RAT 0.57 Normal [facility] Comment on above: Performed By: #### F ERR, FETIBC #### [facility] [address] [place] [address] Dr. Adrianne Johnson URINE CREAT 35.05 mg/dL Normal 20.00-300. 00 [facility] Comment on above: Performed By: #### F ERR, FETIBC #### [facility] [address] [place] [address] Dr. Adrianne Johnson Activated partial thrombopla stin time (aPTT) in platelet poor plasma by coagulation aon 10-19-2020 aPTT Coag (PPP) [Time] 28.5 s 25.1-36.5 [facility] Albumin [Mass/volume] in Ser um or Plasmaon 10-19-2020 Albumin [Mass/Vol] 3.1 g/dL 3.2-5.5 [facility] Basophils Auto (Bld) [#/Vol] on 10-19-2020 Basophils (Bld) [#/Vol] 0.1 10*3/uL 0.0-0.2 [facility] Basophils/100 WBC Auto (Bld) on 10-19-2020 Basophils/100 WBC (Bld) 1.1 % [facility] Blood hemoglobin measurement (mass/volume)on 10-19-2020 Hemoglobin (Bld) [Mass/Vol] 13.7 g/dL 11.8-15.4 [facility] Blood leukocytes automated c ount (number/volume)on 10-19-2020 WBC (Bld) [#/Vol] 8.2 10*3/uL 4.5-11.0 [facility] Creatinine and Glomerular fi ltration rate.predicted panel (S/P/Bld)on 10-19-2020 Creatinine [Mass/Vol] 0.91 mg/dL 0.44-1.03 [facility] Eosinophils Auto (Bld) [#/Vo l]on 10-19-2020 Eosinophils (Bld) [#/Vol] 0.0 10*3/uL 0.0-0.45 [facility] Eosinophils/100 WBC Auto (Bl d)on 10-19-2020 Eosinophils/100 WBC (Bld) 0.2 % [facility] Erythrocyte distribution wid th Auto (RBC) [Ratio]on 10-19-2020 Erythrocyte distribution width (RBC) [Ratio] 14.0 % 11.9-15.3 [facility] Estimated glomerular filtrat ion rate (GFR) non- Americanon 10-19-2020 GFR/1.73 sq M.predicted among non-blacks MDRD (S/P/Bld) [Vol rate/Area] > 60 mL/Min [facility] Globulin Calc (S) [Mass/Vol] on 10-19-2020 Globulin (S) [Mass/Vol] 2.8 g/dL [facility] Hematocrit Auto (Bld) [Volum e fraction]on 10-19-2020 Hematocrit (Bld) [Volume fraction] 41.1 % 34.0-46.4 [facility] - Coagulationon 0 10-19-2020 PT Coag (PPP) [Time] 12.6 s 9.0-12.9 [facility] - Hematology and Cell countson 10-19-2020 Nucleated RBC/100 WBC (Bld) [Ratio] 0.1 % 0-0.5 [facility] Lymphocytes Auto (Bld) [#/Vo l]on 10-19-2020 Lymphocytes (Bld) [#/Vol] 1.9 10*3/uL 1.00-4.8 [facility] Lymphocytes/100 WBC Auto (Bl d)on 10-19-2020 Lymphocytes/100 WBC (Bld) 23.2 % [facility] MCH Auto (RBC) [Entitic mass ]on 10-19-2020 MCH (RBC) [Entitic mass] 32.5 pg 24.7-34.3 [facility] MCHC Auto (RBC) [Mass/Vol]on 10-19-2020 MCHC (RBC) [Mass/Vol] 33.3 g/dL 32.0-35.0 [facility] MCV Auto (RBC) [Entitic vol] on 10-19-2020 MCV (RBC) [Entitic vol] 97.4 fL 80-100 [facility] Monocytes Auto (Bld) [#/Vol] on 10-19-2020 Monocytes (Bld) [#/Vol] 1.1 10*3/uL 0.0-0.8 [facility] Monocytes/100 WBC Auto (Bld) on 10-19-2020 Monocytes/100 WBC (Bld) 13.7 % [facility] Neutrophils Auto (Bld) [#/Vo l]on 10-19-2020 Neutrophils (Bld) [#/Vol] 5.0 10*3/uL 1.8-7.7 [facility] Neutrophils/100 WBC Auto (Bl d)on 10-19-2020 Neutrophils/100 WBC (Bld) 61.8 % [facility] No Panel Informationon 10-19 Estimated GFR () > 60 mL/Min [facility] Comment on above: GFR estimated refere nce range: According to KDOQI guidelines, <60 ml/min/1.73m2 is sufficient to diagnose a patient with chronic kidney disease. Pharmacy Creatinine Clearance (Chem N/A [facility] Platelet mean volume Auto (B ld) [Entitic vol]on 10-19-2020 Platelet mean volume (Bld) [Entitic vol] 6.5 fL 6.3-10.7 [facility] Platelet poor plasma interna tional normalized ratio (INR) by coagulation assay (relaton 10-19-2020 INR Coag (PPP) [Relative time] 1.1 {INR} [facility] Comment on above: INR Therapeutic Rang e A) Pre- and Peroperative OAT started two weeks before surgery. NOT HIP SURGERY: 1.5 - 2.5 HIP SURGERY: 2 - 3B) Primary and secondary prevention of venous THROMBOSIS: 2 - 3C) Active venous thrombosis, pulmonary embolismand prevention of recurrent venous thrombosis: 2 - 3D) Prevention of arterial thromboembolismincluding patients with mechanical heart valves: 3 - 4.5 Platelets Auto (Bld) [#/Vol] on 10-19-2020 Platelets (Bld) [#/Vol] 290 10*3/uL 150-450 [facility] Protein [Mass/volume] in Ser um or Plasmaon 10-19-2020 Protein [Mass/Vol] 5.9 g/dL 6.1-7.9 [facility] RBC Auto (Bld) [#/Vol]on RBC (Bld) [#/Vol] 4.22 10*6/uL 3.60-5.00 [facility] Serum or plasma alanine machuca otransferase measurement without P-5'-P (enzymatic activion 10-19-2020 ALT No additional P-5'-P [Catalytic activity/Vol] 22 U/L 10-60 [facility] Serum or plasma albumin/glob ulin mass ratioon 10-19-2020 Albumin/Globulin [Mass ratio] 1.1 {ratio} [facility] Serum or plasma alkaline garima sphatase measurement (enzymatic activity/volume)on 10-19-2020 ALP [Catalytic activity/Vol] 53 U/L 32-92 [facility] Serum or plasma aspartate am inotransferase measurement (enzymatic activity/volume)on 10-19-2020 AST [Catalytic activity/Vol] 38 U/L 10-42 [facility] Serum or plasma calcium abdi urement (mass/volume)on 10-19-2020 Calcium [Mass/Vol] 8.8 mg/dL 8.2-10.2 [facility] Serum or plasma chloride maryjane surement (moles/volume)on 10-19-2020 Chloride [Moles/Vol] 104 mmol/L 95-114 [facility] Serum or plasma glucose abdi urement (mass/volume)on 10-19-2020 Glucose [Mass/Vol] 226 mg/dL 70-100 [facility] Comment on above: ADA recommended refe rence rangeRandom Glucose Reference Range is dependent on time and content of last meal. Glucose of more than 200 mg/dL in a nonstressed, ambulatory subject supports the diagnosis of Diabetes Mellitus. Serum or plasma potassium me asurement (moles/volume)on 10-19-2020 Potassium [Moles/Vol] 4.2 mmol/L 3.5-5.1 [facility] Serum or plasma sodium measu rement (moles/volume)on 10-19-2020 Sodium [Moles/Vol] 137 mmol/L 136-146 [facility] Serum or plasma total biliru bin measurement (mass/volume)on 10-19-2020 Bilirubin [Mass/Vol] 0.7 mg/dL 0.3-1.2 [facility] Serum or plasma total carbon dioxide measurement (moles/volume)on 10-19-2020 CO2 [Moles/Vol] 20.1 mmol/L 22.0-30.0 [facility] Serum or plasma urea nitroge n measurement (mass/volume)on 10-19-2020 Urea nitrogen [Mass/Vol] 18 mg/dL 9-23 [facility] Progress Noteon 05-24-2017 HIM IP Note OR Dehairer Normal [facility] Cult,Bloodon 05-19-2017 Cult,Blood Specimen Description .BLOOD Special Requests LAC 10ML Culture NO GROWTH 6 DAYS Report Status FINAL 05/19/2017 Normal [facility] Comment on above: Performed By: #### B MP, CDP, LIVP, PT, PTT ####[id number] [place] [address] Discharge Summaryon 05-18-19 18 HIM IP Note OR Dehairer Normal [facility] Plan of Careon 05-18-2017 HIM IP Note OR Dehairer Normal [facility] Progress Noteon 05-18-2017 HIM IP Note OR Dehairer Normal [facility] HIM IP Note OR Dehairer Normal [facility] HIM IP Note OR Dehairer Normal [facility] HIM IP Note OR Dehairer Normal [facility] Hemoglobin A1Con 05-17-2017 Glucose mass conc 146 mg/dL Normal [facility] Comment on above: Result Comment: The ADA and AACC recommend providing the estimated average glucose result to permit better patient understanding of their HBA1c result.[id number] [place] [address] Performed By: #### C DP, GLYHGB ####[facility] [place] [address] Hemoglobin A1c/Hemoglobin.total mass fraction (Bld) 6.7 % High 4.0-6.0 [facility] Comment on above: Performed By: #### C DP, GLYHGB ####[facility] [id number] [place] [address] Plan of Careon 05-17-2017 HIM IP Note OR Dehairer Normal [facility] HIM IP Note OR Dehairer Normal [facility] HIM IP Note OR Dehairer Normal [facility] Progress Noteon 05-17-2017 HIM IP Note OR Dehairer Normal [facility] HIM IP Note OR Dehairer Normal [facility] HIM IP Note OR Dehairer Normal [facility] HIM IP Note OR Dehairer Normal [facility] HIM IP Note OR Dehairer Normal [facility] HIM IP Note OR Dehairer Normal [facility] HIM IP Note OR Dehairer Normal [facility] CBC with Diffon 05-16-2017 Abs. Basophil 0.07 k/uL Normal 0.00-0.20 [facility] Comment on above: Performed By: #### C DP, GLYHGB ####[address] [address] Abs.Neutrophil (Seg) 9.04 k/uL High 1.50-8.10 [facility] Comment on above: Performed By: #### C DP, GLYHGB ####[address] [address] Basophils/100 WBC Auto (Bld) 1 % Normal 0-2 [facility] Comment on above: Performed By: #### C DP, GLYHGB ####[address] [place] [address] Eosinophils 0.21 10*3/uL Normal 0.00-0.44 [facility] Comment on above: Performed By: #### C DP, GLYHGB ####[address] [place] [address] Eosinophils/100 leukocytes 2 % Normal 1-4 [facility] Comment on above: Performed By: #### C DP, GLYHGB ####[address] [place] [address] Erythrocyte distribution width Auto Ratio (RBC) 12.7 % Normal 11.8-14.4 [facility] Comment on above: Performed By: #### C DP, GLYHGB ####[facility] [place] [address] Erythrocytes (RBC) 4.23 10*6/uL Normal 3.95-5.11 [facility] Comment on above: Performed By: #### C DP, GLYHGB ####[address] [address] Granulocytes/100 WBC (Bld) 0.08 k/uL Normal 0.00-0.30 [facility] Comment on above: Result Comment: [id number] [place] [address] Performed By: #### C DP, GLYHGB ####[address] [address] Hematocrit (HCT) 41.6 % Normal 36.3-47.1 [facility] Comment on above: Performed By: #### C DP, GLYHGB ####[address] [address] Hemoglobin mass conc (Bld) 13.1 g/dL Normal 11.9-15.1 [facility] Comment on above: Performed By: #### C DP, GLYHGB ####[address] [address] Immature granulocytes #/vol (Bld) 1 % High 0 [facility] Comment on above: Performed By: #### C DP, GLYHGB ####[address] [address] Lymphocytes 2.31 10*3/uL Normal 1.10-3.70 [facility] Comment on above: Performed By: #### C DP, GLYHGB ####[address] [address] Lymphocytes/100 leukocytes 18 % Low 24-43 [facility] Comment on above: Performed By: #### C DP, GLYHGB ####[address] [address] MCH 31.0 pg Normal 25.2-33.5 [facility] Comment on above: Performed By: #### C DP, GLYHGB ####[address] [address] MCHC mass conc (RBC) 31.5 g/dL Normal 28.4-34.8 [facility] Comment on above: Performed By: #### C DP, GLYHGB ####[address] [address] MCV 98.3 fL Normal 82.6-102.9 [facility] Comment on above: Performed By: #### C DP, GLYHGB ####[address] [address] Monocytes 1.20 10*3/uL Normal 0.10-1.20 [facility] Comment on above: Performed By: #### C DP, GLYHGB ####[address] [address] Monocytes/100 leukocytes 9 % Normal 3-12 [facility] Comment on above: Performed By: #### C DP, GLYHGB ####[address] [address] Neutrophil (Seg) 69 % High 36-65 [facility] Comment on above: Performed By: #### C DP, GLYHGB ####[address] [address] Platelet mean volume (PMV) 9.3 fL Normal 8.1-13.5 [facility] Comment on above: Performed By: #### C DP, GLYHGB ####[address] [address] Platelets 276 10*3/uL Normal 138-453 [facility] Comment on above: Performed By: #### C DP, GLYHGB ####[address] [place] [address] WBC (Leukocytes) 12.9 10*3/uL High 3.5-11.3 [facility] Comment on above: Performed By: #### C DP, GLYHGB ####[address] [place] [address] Auto Diff Performed NOT REPORTED Normal [facility] Comment on above: Performed By: #### C DP, GLYHGB ####[facility] [address] [place] [address] Erythrocyte morphology NOT REPORTED Normal [facility] Comment on above: Performed By: #### C DP, GLYHGB ####[address] [address] Platelets NOT REPORTED Normal [facility] Comment on above: Performed By: #### C DP, GLYHGB ####[facility] [address] [place] [address] WBC Morphology NOT REPORTED Normal [facility] Comment on above: Performed By: #### C DP, GLYHGB ####[address] [address] Plan of Careon 05-16-2017 HIM IP Note OR Dehairer Normal [facility] HIM IP Note OR Dehairer Normal [facility] HIM IP Note OR Dehairer Normal [facility] HIM IP Note OR Dehairer Normal [facility] Progress Noteon 05-16-2017 HIM IP Note OR Dehairer Normal [facility] HIM IP Note OR Dehairer Normal [facility] HIM IP Note OR Dehairer Normal [facility] HIM IP Note OR Dehairer Normal [facility] HIM IP Note OR Dehairer Normal [facility] HIM IP Note OR Dehairer Normal [facility] Basic Metabolic Profon 05-15 (cont.) Normal [facility] Comment on above: Result Comment: Aver age GFR for 50-59 years old: 93 mL/min/1.73sq mChronic Kidney Disease: <60 mL/min/1.73sq mKidney failure: <15 mL/min/1.73sq meGFR calculated using average adult body mass. Additional eGFR calculator available at:[email or web address] [address] [place] [address] Performed By: #### L ACWB ####[facility] [address] [place] [address] Anion gap 14 mmol/L Normal 9-17 [facility] Comment on above: Performed By: #### L ACWB ####[address] [address] Calcium 8.3 mg/dL Low 8.6-10.4 [facility] Comment on above: Performed By: #### L ACWB ####[address] [address] Chloride 100 mmol/L Normal 98-107 [facility] Comment on above: Performed By: #### L ACWB ####[address] [address] CO2 25 mmol/L Normal 20-31 [facility] Comment on above: Performed By: #### L ACWB ####[facility] [address] [place] [address] Creatinine 0.39 mg/dL Low 0.50-0.90 [facility] Comment on above: Performed By: #### L ACWB ####[facility] [address] [place] [address] eGFR (non-black) mL/min/{1.73_m2} Normal >60 [facility] Comment on above: Performed By: #### L ACWB ####[facility] [place] [address] Glucose mass conc 165 mg/dL High 70-99 [facility] Comment on above: Performed By: #### L ACWB ####[address] [place] [address] Potassium molar conc 3.6 mmol/L Low 3.7-5.3 [facility] Comment on above: Performed By: #### L ACWB ####[address] [address] Sodium 139 mmol/L Normal 135-144 [facility] Comment on above: Performed By: #### L ACWB ####[address] [address] Urea nitrogen 15 mg/dL Normal 6-20 [facility] Comment on above: Performed By: #### L ACWB ####[address] [address] BUN/CRE Ratio NOT REPORTED Normal - [facility] Comment on above: Performed By: #### L ACWB ####[address] [address] Staging: NOT REPORTED Normal [facility] Comment on above: Performed By: #### L ACWB ####[address] [address] CBC with Diffon 05-15-2017 Abs. Basophil 0.07 k/uL Normal 0.00-0.20 [facility] Comment on above: Performed By: #### L ACWB ####[address] [address] Abs.Neutrophil (Seg) 9.54 k/uL High 1.50-8.10 [facility] Comment on above: Performed By: #### L ACWB ####[facility] [place] [address] Basophils/100 WBC Auto (Bld) 1 % Normal 0-2 [facility] Comment on above: Performed By: #### L ACWB ####[facility] [place] [address] Eosinophils 0.14 10*3/uL Normal 0.00-0.44 [facility] Comment on above: Performed By: #### L ACWB ####[address] [address] Eosinophils/100 leukocytes 1 % Normal 1-4 [facility] Comment on above: Performed By: #### L ACWB ####[address] [address] Erythrocyte distribution width Auto Ratio (RBC) 12.9 % Normal 11.8-14.4 [facility] Comment on above: Performed By: #### L ACWB ####[facility] [place] [address] Erythrocytes (RBC) 4.04 10*6/uL Normal 3.95-5.11 [facility] Comment on above: Performed By: #### L ACWB ####[address] [address] Granulocytes/100 WBC (Bld) 0.09 k/uL Normal 0.00-0.30 [facility] Comment on above: Result Comment: [facility] [address] [place] [address] Performed By: #### L ACWB ####[facility] [place] [address] Hematocrit (HCT) 39.4 % Normal 36.3-47.1 [facility] Comment on above: Performed By: #### L ACWB ####[facility] [place] [address] Hemoglobin mass conc (Bld) 12.4 g/dL Normal 11.9-15.1 [facility] Comment on above: Performed By: #### L ACWB ####[facility] [place] [address] Immature granulocytes #/vol (Bld) 1 % High 0 [facility] Comment on above: Performed By: #### L ACWB ####[address] [address] Lymphocytes 1.89 10*3/uL Normal 1.10-3.70 [facility] Comment on above: Performed By: #### L ACWB ####[address] [address] Lymphocytes/100 leukocytes 14 % Low 24-43 [facility] Comment on above: Performed By: #### L ACWB ####[address] [address] MCH 30.7 pg Normal 25.2-33.5 [facility] Comment on above: Performed By: #### L ACWB ####[address] [address] MCHC mass conc (RBC) 31.5 g/dL Normal 28.4-34.8 [facility] Comment on above: Performed By: #### L ACWB ####[address] [address] MCV 97.5 fL Normal 82.6-102.9 [facility] Comment on above: Performed By: #### L ACWB ####[facility] [place] [address] Monocytes 1.45 10*3/uL High 0.10-1.20 [facility] Comment on above: Performed By: #### L ACWB ####[address] [address] Monocytes/100 leukocytes 11 % Normal 3-12 [facility] Comment on above: Performed By: #### L ACWB ####[address] [address] Neutrophil (Seg) 72 % High 36-65 [facility] Comment on above: Performed By: #### L ACWB ####[address] [address] Platelet mean volume (PMV) 9.1 fL Normal 8.1-13.5 [facility] Comment on above: Performed By: #### L ACWB ####[address] [address] Platelets 218 10*3/uL Normal 138-453 [facility] Comment on above: Performed By: #### L ACWB ####[address] [address] WBC (Leukocytes) 13.2 10*3/uL High 3.5-11.3 [facility] Comment on above: Performed By: #### L ACWB ####[address] [address] Auto Diff Performed NOT REPORTED Normal [facility] Comment on above: Performed By: #### L ACWB ####[address] [address] Erythrocyte morphology NOT REPORTED Normal [facility] Comment on above: Performed By: #### L ACWB ####[facility] [place] [address] Platelets NOT REPORTED Normal [facility] Comment on above: Performed By: #### L ACWB ####[facility] [address] [place] [address] WBC Morphology NOT REPORTED Normal [facility] Comment on above: Performed By: #### L ACWB ####[facility] [address] [place] [address] CTA CHEST WITH CONTRASTon CTA CHEST WITH CONTRAST ADDENDUM:3 dimensional images were subsequently provided. No additional acutefindings are present on these images.Electronically Signed by: JAYDEN JARVIS on Sun May 15, 2017 9:37:30 AM ESTEXAMINATION:CTA OF THE CHEST 05/14/2017 10:43 amTECHNIQUE:CTA of the chest was performed after the administration of intravenouscontrast. Multiplanar reformatted images are provided for review. MIPimages are provided for review. Dose modulation, iterative reconstruction,and/or weight based adjustment of the mA/kV was utilized to reduce theradiation dose to as low as reasonably achievable.COMPARISON:None .HISTORY:ORDERING SYSTEM PROVIDED HISTORY: r/o aortic dissectionFINDINGS:Pulmona ry Arteries: Detail of the pulmonary arteries is limited due to timingof the bolus. Main pulmonary arteries are patent.Mediastinum: Vascular calcifications are noted. No abnormal density is notedin the aorta on the noncontrast portion of the examination. There is noaneurysm. There is no dissection of the aorta. ETT terminates at the aorticarch level. No pathologically enlarged lymph nodes are noted. Small pleuraleffusion on the right is noted. There is no pericardial effusion.Lungs/pleura: Dependent atelectasis is noted bilaterally. Findings aregreatest in the right posterior lung base adjacent pleural fluid.Upper Abdomen: Detail in the upper abdomen is significantly limited.Low-density throughout the visualized portions of the liver suggests fattyinfiltration. Left adrenal gland is larger than the right. Small renalcalcification on the left is noted. Tiny low-density right renal lesion isnoted. Multifocal linear and nodular densities are noted interposed betweenbowel loops in the anterior rightward aspect of the abdomen. This notentirely included. Dedicated imaging of the abdomen would be more helpfulwith oral and IV contrast.Soft Tissues/Bones: Degenerative changes are noted in the thoracic spine.Multiple vacuum discs are noted. No soft tissue mass or fluid collection isnotedIMPRESSION: There is no finding to suggest aortic dissection.Small pleural effusion on the right with associated atelectasisImaging findings in the abdomen as describedInterpreted by:SUMAN Velázquezigned by:Jayden Jarvis MD05/15/17Edited Result - FINAL Normal [facility] Consulton 05-15-2017 HIM IP Note OR Dehairer Normal [facility] Cult,Bloodon 05-15-2017 Cult,Blood Specimen Description .BLOOD Special Requests NOT REPORTED Culture NO SPECIMEN RECEIVED ERICK GALE NOTIFIED 05/14/16 [id number] Report Status FINAL 05/15/2017 Normal [facility] Comment on above: Performed By: #### L ACWB ####[facility] [place] [address] Hgb/Hcton 05-15-2017 Hematocrit (HCT) 40.5 % Normal 36.3-47.1 [facility] Comment on above: Result Comment: [facility] [address] [place] [address] Performed By: #### L ACWB ####[facility] [place] [address] Hemoglobin mass conc (Bld) 12.8 g/dL Normal 11.9-15.1 [facility] Comment on above: Performed By: #### L ACWB ####[facility] [place] [address] Plan of Careon 05-15-2017 HIM IP Note OR Dehairer Normal [facility] HIM IP Note OR Dehairer Normal [facility] HIM IP Note OR Dehairer Normal [facility] Progress Noteon 05-15-2017 HIM IP Note OR Dehairer Normal [facility] HIM IP Note OR Dehairer Normal [facility] HIM IP Note OR Dehairer Normal [facility] HIM IP Note OR Dehairer Normal [facility] Basic Metabolic Profon 05-14 Anion gap 14 mmol/L Normal 9-17 [facility] Comment on above: Performed By: #### B MP, CDP, LIVP, PT, PTT ####[address] [place] [address] Calcium 8.2 mg/dL Low 8.6-10.4 [facility] Comment on above: Performed By: #### B MP, CDP, LIVP, PT, PTT ####[address] [address] Chloride 100 mmol/L Normal 98-107 [facility] Comment on above: Performed By: #### B MP, CDP, LIVP, PT, PTT ####[address] [address] CO2 23 mmol/L Normal 20-31 [facility] Comment on above: Performed By: #### B MP, CDP, LIVP, PT, PTT ####[address] [place] [address] Creatinine 0.62 mg/dL Normal 0.50-0.90 [facility] Comment on above: Performed By: #### B MP, CDP, LIVP, PT, PTT ####[facility] [place] [address] eGFR (non-black) mL/min/{1.73_m2} Normal >60 [facility] Comment on above: Performed By: #### B MP, CDP, LIVP, PT, PTT ####[address] [place] [address] Glucose mass conc 189 mg/dL High 70-99 [facility] Comment on above: Performed By: #### B MP, CDP, LIVP, PT, PTT ####[address] [place] [address] Potassium molar conc 4.2 mmol/L Normal 3.7-5.3 [facility] Comment on above: Performed By: #### B MP, CDP, LIVP, PT, PTT ####[address] [address] Sodium 137 mmol/L Normal 135-144 [facility] Comment on above: Performed By: #### B MP, CDP, LIVP, PT, PTT ####[address] [address] Urea nitrogen 17 mg/dL Normal 6-20 [facility] Comment on above: Performed By: #### B MP, CDP, LIVP, PT, PTT ####[address] [address] (cont.) Normal [facility] Comment on above: Result Comment: Aver age GFR for 50-59 years old: 93 mL/min/1.73sq mChronic Kidney Disease: <60 mL/min/1.73sq mKidney failure: <15 mL/min/1.73sq meGFR calculated using average adult body mass. Additional eGFR calculator available at:[email or web address]_[email or web address].htm[address] [place] [address] Performed By: #### B MP, CDP, LIVP, PT, PTT ####[address] [address] BUN/CRE Ratio NOT REPORTED Normal 9-20 [facility] Comment on above: Performed By: #### B MP, CDP, LIVP, PT, PTT ####[address] [address] Staging: NOT REPORTED Normal [facility] Comment on above: Performed By: #### B MP, CDP, LIVP, PT, PTT ####[address] [address] Anion gap 15 mmol/L Normal 9-17 [facility] Comment on above: Performed By: #### B MP, CDP, LIVP, PT, PTT ####[facility] [place] [address] Calcium 8.1 mg/dL Low 8.6-10.4 [facility] Comment on above: Performed By: #### B MP, CDP, LIVP, PT, PTT ####[address] [address] Chloride 99 mmol/L Normal 98-107 [facility] Comment on above: Performed By: #### B MP, CDP, LIVP, PT, PTT ####[address] [address] CO2 22 mmol/L Normal 20-31 [facility] Comment on above: Performed By: #### B MP, CDP, LIVP, PT, PTT ####[address] [place] [address] Creatinine 0.67 mg/dL Normal 0.50-0.90 [facility] Comment on above: Performed By: #### B MP, CDP, LIVP, PT, PTT ####[facility] [place] [address] eGFR (non-black) mL/min/{1.73_m2} Normal >60 [facility] Comment on above: Performed By: #### B MP, CDP, LIVP, PT, PTT ####[facility] [place] [address] Glucose mass conc 202 mg/dL High 70-99 [facility] Comment on above: Performed By: #### B MP, CDP, LIVP, PT, PTT ####[address] [address] Potassium molar conc 4.6 mmol/L Normal 3.7-5.3 [facility] Comment on above: Performed By: #### B MP, CDP, LIVP, PT, PTT ####[address] [address] Sodium 136 mmol/L Normal 135-144 [facility] Comment on above: Performed By: #### B MP, CDP, LIVP, PT, PTT ####[address] [address] Urea nitrogen 17 mg/dL Normal 6-20 [facility] Comment on above: Performed By: #### B MP, CDP, LIVP, PT, PTT ####[address] [address] (cont.) Normal [facility] Comment on above: Result Comment: Aver age GFR for 50-59 years old: 93 mL/min/1.73sq mChronic Kidney Disease: <60 mL/min/1.73sq mKidney failure: <15 mL/min/1.73sq meGFR calculated using average adult body mass. Additional eGFR calculator available at:http://[email or web address]_[email or web address] [address] [place] [address] Performed By: #### B MP, CDP, LIVP, PT, PTT ####[address] [address] BUN/CRE Ratio NOT REPORTED Normal -20 [facility] Comment on above: Performed By: #### B MP, CDP, LIVP, PT, PTT ####[address] [address] Staging: NOT REPORTED Normal [facility] Comment on above: Performed By: #### B MP, CDP, LIVP, PT, PTT ####[address] [place] [address] CBC with Diffon 05-14-2017 Abs. Basophil 0.00 k/uL Normal 0.0-0.2 [facility] Comment on above: Performed By: #### B MP, CDP, LIVP, PT, PTT ####[address] [address] Abs.Neutrophil (Seg) 10.52 k/uL High 1.8-7.7 [facility] Comment on above: Performed By: #### B MP, CDP, LIVP, PT, PTT ####[address] [address] Basophils/100 WBC Auto (Bld) 0 % Normal 0-2 [facility] Comment on above: Performed By: #### B MP, CDP, LIVP, PT, PTT ####[address] [address] Blood morphology Normal Normal [facility] Comment on above: Result Comment: [address] [address] Performed By: #### B MP, CDP, LIVP, PT, PTT ####[address] [address] Eosinophils 0.27 10*3/uL Normal 0.0-0.4 [facility] Comment on above: Performed By: #### B MP, CDP, LIVP, PT, PTT ####[address] [address] Eosinophils/100 leukocytes 2 % Normal 1-4 [facility] Comment on above: Performed By: #### B MP, CDP, LIVP, PT, PTT ####[address] [address] Granulocytes/100 WBC (Bld) 0.00 k/uL Normal 0.00-0.30 [facility] Comment on above: Performed By: #### B MP, CDP, LIVP, PT, PTT ####[address] [address] Immature granulocytes #/vol (Bld) 0 % Normal 0 [facility] Comment on above: Performed By: #### B MP, CDP, LIVP, PT, PTT ####[address] [address] Lymphocytes 1.49 10*3/uL Normal 1.0-4.8 [facility] Comment on above: Performed By: #### B MP, CDP, LIVP, PT, PTT ####[address] [address] Lymphocytes/100 leukocytes 11 % Low 24-44 [facility] Comment on above: Performed By: #### B MP, CDP, LIVP, PT, PTT ####[address] [address] Monocytes 1.22 10*3/uL High 0.1-0.8 [facility] Comment on above: Performed By: #### B MP, CDP, LIVP, PT, PTT ####[address] [address] Monocytes/100 leukocytes 9 % High 1-7 [facility] Comment on above: Performed By: #### B MP, CDP, LIVP, PT, PTT ####[address] [address] Neutrophil (Seg) 78 % High 36-66 [facility] Comment on above: Performed By: #### B MP, CDP, LIVP, PT, PTT ####[address] [address] Erythrocyte distribution width Auto Ratio (RBC) 13.0 % Normal 11.8-14.4 [facility] Comment on above: Performed By: #### B MP, CDP, LIVP, PT, PTT ####[address] [address] Erythrocytes (RBC) 4.32 10*6/uL Normal 3.95-5.11 [facility] Comment on above: Performed By: #### B MP, CDP, LIVP, PT, PTT ####[address] [address] Hematocrit (HCT) 41.8 % Normal 36.3-47.1 [facility] Comment on above: Performed By: #### B MP, CDP, LIVP, PT, PTT ####[address] [address] Hemoglobin mass conc (Bld) 13.4 g/dL Normal 11.9-15.1 [facility] Comment on above: Performed By: #### B MP, CDP, LIVP, PT, PTT ####[address] [address] MCH 31.0 pg Normal 25.2-33.5 [facility] Comment on above: Performed By: #### B MP, CDP, LIVP, PT, PTT ####[address] [address] MCHC mass conc (RBC) 32.1 g/dL Normal 28.4-34.8 [facility] Comment on above: Performed By: #### B MP, CDP, LIVP, PT, PTT ####[address] [address] MCV 96.8 fL Normal 82.6-102.9 [facility] Comment on above: Performed By: #### B MP, CDP, LIVP, PT, PTT ####[address] [address] Platelet mean volume (PMV) 10.1 fL Normal 8.1-13.5 [facility] Comment on above: Performed By: #### B MP, CDP, LIVP, PT, PTT ####[address] [address] Platelets 194 10*3/uL Normal 138-453 [facility] Comment on above: Performed By: #### B MP, CDP, LIVP, PT, PTT ####[address] [address] WBC (Leukocytes) 13.5 10*3/uL High 3.5-11.3 [facility] Comment on above: Performed By: #### B MP, CDP, LIVP, PT, PTT ####[address] [address] Auto Diff Performed NOT REPORTED Normal [facility] Comment on above: Performed By: #### B MP, CDP, LIVP, PT, PTT ####[address] [address] Erythrocyte morphology NOT REPORTED Normal [facility] Comment on above: Performed By: #### B MP, CDP, LIVP, PT, PTT ####[address] [address] Platelets NOT REPORTED Normal [facility] Comment on above: Performed By: #### B MP, CDP, LIVP, PT, PTT ####[address] [address] WBC Morphology NOT REPORTED Normal [facility] Comment on above: Performed By: #### B MP, CDP, LIVP, PT, PTT ####[address] [address] Abs. Basophil 0.00 k/uL Normal 0.0-0.2 [facility] Comment on above: Performed By: #### B MP, CDP, LIVP, PT, PTT ####[address] [address] Abs.Neutrophil (Seg) 14.18 k/uL High 1.8-7.7 [facility] Comment on above: Performed By: #### B MP, CDP, LIVP, PT, PTT ####[address] [address] Basophils/100 WBC Auto (Bld) 0 % Normal 0-2 [facility] Comment on above: Performed By: #### B MP, CDP, LIVP, PT, PTT ####[address] [address] Blood morphology Normal Normal [facility] Comment on above: Result Comment: [address] [address] Performed By: #### B MP, CDP, LIVP, PT, PTT ####[address] [address] Eosinophils 0.00 10*3/uL Normal 0.0-0.4 [facility] Comment on above: Performed By: #### B MP, CDP, LIVP, PT, PTT ####[address] [address] Eosinophils/100 leukocytes 0 % Low 1-4 [facility] Comment on above: Performed By: #### B MP, CDP, LIVP, PT, PTT ####[address] [address] Granulocytes/100 WBC (Bld) 0.00 k/uL Normal 0.00-0.30 [facility] Comment on above: Performed By: #### B MP, CDP, LIVP, PT, PTT ####[address] [address] Immature granulocytes #/vol (Bld) 0 % Normal 0 [facility] Comment on above: Performed By: #### B MP, CDP, LIVP, PT, PTT ####[address] [address] Lymphocytes 0.98 10*3/uL Low 1.0-4.8 [facility] Comment on above: Performed By: #### B MP, CDP, LIVP, PT, PTT ####[address] [address] Lymphocytes/100 leukocytes 6 % Low 24-44 [facility] Comment on above: Performed By: #### B MP, CDP, LIVP, PT, PTT ####[address] [address] Monocytes 1.14 10*3/uL High 0.1-0.8 [facility] Comment on above: Performed By: #### B MP, CDP, LIVP, PT, PTT ####[address] [address] Monocytes/100 leukocytes 7 % Normal 1-7 [facility] Comment on above: Performed By: #### B MP, CDP, LIVP, PT, PTT ####[address] [address] Neutrophil (Seg) 87 % High 36-66 [facility] Comment on above: Performed By: #### B MP, CDP, LIVP, PT, PTT ####[address] [address] Erythrocyte distribution width Auto Ratio (RBC) 13.0 % Normal 11.8-14.4 [facility] Comment on above: Performed By: #### B MP, CDP, LIVP, PT, PTT ####[address] [address] Erythrocytes (RBC) 4.54 10*6/uL Normal 3.95-5.11 [facility] Comment on above: Performed By: #### B MP, CDP, LIVP, PT, PTT ####[address] [address] Hematocrit (HCT) 43.8 % Normal 36.3-47.1 [facility] Comment on above: Performed By: #### B MP, CDP, LIVP, PT, PTT ####[address] [address] Hemoglobin mass conc (Bld) 14.1 g/dL Normal 11.9-15.1 [facility] Comment on above: Performed By: #### B MP, CDP, LIVP, PT, PTT ####[address] [address] MCH 31.1 pg Normal 25.2-33.5 [facility] Comment on above: Performed By: #### B MP, CDP, LIVP, PT, PTT ####[address] [address] MCHC mass conc (RBC) 32.2 g/dL Normal 28.4-34.8 [facility] Comment on above: Performed By: #### B MP, CDP, LIVP, PT, PTT ####[address] [address] MCV 96.5 fL Normal 82.6-102.9 [facility] Comment on above: Performed By: #### B MP, CDP, LIVP, PT, PTT ####[address] [address] Platelet mean volume (PMV) 10.7 fL Normal 8.1-13.5 [facility] Comment on above: Performed By: #### B MP, CDP, LIVP, PT, PTT ####[address] [address] Platelets 192 10*3/uL Normal 138-453 [facility] Comment on above: Performed By: #### B MP, CDP, LIVP, PT, PTT ####[address] [address] WBC (Leukocytes) 16.3 10*3/uL High 3.5-11.3 [facility] Comment on above: Performed By: #### B MP, CDP, LIVP, PT, PTT ####[address] [address] Auto Diff Performed NOT REPORTED Normal [facility] Comment on above: Performed By: #### B MP, CDP, LIVP, PT, PTT ####[address] [address] Erythrocyte morphology NOT REPORTED Normal [facility] Comment on above: Performed By: #### B MP, CDP, LIVP, PT, PTT ####[address] [address] Platelets NOT REPORTED Normal [facility] Comment on above: Performed By: #### B MP, CDP, LIVP, PT, PTT ####[address] [address] WBC Morphology NOT REPORTED Normal [facility] Comment on above: Performed By: #### B MP, CDP, LIVP, PT, PTT ####[address] [address] Cult,Urineon 05-14-2017 Cult,Urine Specimen Description .CATHETERIZED URINE THOMSON SPECIMEN 1ST INSERTION Special Requests NOT REPORTED Culture NO GROWTH Report Status FINAL 05/14/2017 Normal [facility] Comment on above: Performed By: #### B MP, CDP, LIVP, PT, PTT ####[address] [address] Cult,Urine Specimen Description .BLADDER Special Requests NOT REPORTED Culture DUPLICATE ORDER Report Status FINAL 05/14/2017 Normal [facility] Comment on above: Performed By: #### B MP, CDP, LIVP, PT, PTT ####[address] [address] Lactic Acid,Whole Blon 05-14 Lactic Acid,Whole Bl 1.0 mmol/L Normal 0.7-2.1 [facility] Comment on above: Result Comment: [facility] [employer] [address] [place] [id number] Performed By: #### B MP, CDP, LIVP, PT, PTT ####[address] [address] MRSA, DNA, Nasalon 8 MRSA, DNA, Nasal NEGATIVE: MRSA DNA n ot detected by nucleic acid amplification. Normal NM[facility]AA [facility] Comment on above: Result Comment: Resu lts should be used as an adjunct to nosocomial control efforts to identify patients needing enhanced precautions.The test is not intended to identify patients with staphylococcal infections. Results should not be used to guide or monitor treatment for MRSA infections.[facility] [employer] [address] [place] [address] Performed By: #### B MP, CDP, LIVP, PT, PTT ####[address] [address] Magnesiumon 05-14-2017 Magnesium 2.1 mg/dL Normal 1.6-2.6 [facility] Comment on above: Result Comment: [facility] [employer] [address] [place] [address] Performed By: #### B MP, CDP, LIVP, PT, PTT ####[address] [address] Magnesium 1.6 mg/dL Normal 1.6-2.6 [facility] Comment on above: Result Comment: [employer] [address] [place] [address] Performed By: #### B MP, CDP, LIVP, PT, PTT ####[facility] [address] [place] [address] Phosphorus, Inorg.on 018 Phosphorus, Inorg. 3.7 mg/dL Normal 2.6-4.5 [facility] Comment on above: Result Comment: [employer] [address] [place] [address] Performed By: #### B MP, CDP, LIVP, PT, PTT ####[facility] [address] [place] [address] Plan of Careon 05-14-2017 HIM IP Note OR Dehairer Normal [facility] HIM IP Note OR Dehairer Normal [facility] HIM IP Note OR Dehairer Normal [facility] Progress Noteon 05-14-2017 HIM IP Note OR Dehairer Normal [facility] HIM IP Note OR Dehairer Normal [facility] HIM IP Note OR Dehairer Normal [facility] HIM IP Note OR Dehairer Normal [facility] HIM IP Note OR Dehairer Normal [facility] HIM IP Note OR Dehairer Normal [facility] HIM IP Note OR Dehairer Normal [facility] Troponinon 05-14-2017 Troponin I.cardiac mass conc Normal [facility] Comment on above: Result Comment: Refe rence Range: <0.03 Within reference range. 0.03-0.09 Possible myocardial damage.Repeat at appropriate intervals to rule out chronic elevation. >= 0.10 Indicative of myocardial damage.Patients with high levels of Biotin oral intake (i.e >5mg/day) may have falsely decreased Troponin T levels. Samples collected within 8 hours of biotin intake may require additional information for diagnosis.[employer] [address] [place] [address] Performed By: #### B MP, CDP, LIVP, PT, PTT ####[employer] [place] [address] Troponin T.cardiac mass conc ug/L Normal <0.03 [facility] Comment on above: Result Comment: Trop onin T results cannot be compared to Troponin-I results. Performed By: #### B MP, CDP, LIVP, PT, PTT ####[address] [address] Troponin I.cardiac mass conc Normal [facility] Comment on above: Result Comment: Refe rence Range: <0.03 Within reference range. 0.03-0.09 Possible myocardial damage.Repeat at appropriate intervals to rule out chronic elevation. >= 0.10 Indicative of myocardial damage.Patients with high levels of Biotin oral intake (i.e >5mg/day) may have falsely decreased Troponin T levels. Samples collected within 8 hours of biotin intake may require additional information for diagnosis.[id number] [place] [address] Performed By: #### B MP, CDP, LIVP, PT, PTT ####[address] [address] Troponin T.cardiac mass conc ug/L Normal <0.03 [facility] Comment on above: Result Comment: Trop onin T results cannot be compared to Troponin-I results. Performed By: #### B MP, CDP, LIVP, PT, PTT ####[address] [address] XR CHEST PORTABLEon 05-14-19 18 XR CHEST PORTABLE EXAMINATION:SINGLE V IEW OF THE CHEST05/14/2017 5:46 amCOMPARISON:05/13/2017HIS TORY:ORDERING SYSTEM PROVIDED HISTORY: intubated postopTECHNOLOGIST PROVIDED HISTORY:Reason for exam:->intubated postopFINDINGS:Endotrachea l tube is located 4.2 cm above the slick. Nasogastric tubetraverses the diaphragm.The lungs and pleural spaces are without acute focal process.The cardiomediastinal silhouette is without acute process.There is no evidence of pneumothorax.The osseous structures are without acute process.IMPRESSION: Endotracheal tube located 4.2 cm above the slick.Interpreted by:SUMAN Wickigned by:Arash Cheng MD05/14/18Final result Normal [facility] APTTon 05-13-2017 aPTT 24.7 s Normal 21.3-31.3 [facility] Comment on above: Result Comment: [address] [address] Performed By: #### B MP, CDP, LIVP, PT, PTT ####[address] [address] Basic Metabolic Profon 05-13 (cont.) Normal [facility] Comment on above: Result Comment: Aver age GFR for 50-59 years old: 93 mL/min/1.73sq mChronic Kidney Disease: <60 mL/min/1.73sq mKidney failure: <15 mL/min/1.73sq meGFR calculated using average adult body mass. Additional eGFR calculator available at:[email or web address]_crcl_2012.htm[address]ison [address] [place] [address] Performed By: #### B MP, CDP, LIVP, PT, PTT ####[address] [address] Anion gap 14 mmol/L Normal 9-17 [facility] Comment on above: Performed By: #### B MP, CDP, LIVP, PT, PTT ####[address] [address] Calcium 8.9 mg/dL Normal 8.6-10.4 [facility] Comment on above: Performed By: #### B MP, CDP, LIVP, PT, PTT ####[address] [address] Chloride 94 mmol/L Low 98-107 [facility] Comment on above: Performed By: #### B MP, CDP, LIVP, PT, PTT ####[facility] [address] [place] [address] CO2 22 mmol/L Normal 20-31 [facility] Comment on above: Performed By: #### B MP, CDP, LIVP, PT, PTT ####[facility] [place] [address] Creatinine 0.72 mg/dL Normal 0.50-0.90 [facility] Comment on above: Performed By: #### B MP, CDP, LIVP, PT, PTT ####[address] [place] [address] eGFR (non-black) mL/min/{1.73_m2} Normal >60 Me [facility] Comment on above: Performed By: #### B MP, CDP, LIVP, PT, PTT ####[facility] [address] [place] [address] Glucose mass conc 163 mg/dL High 70-99 [facility] Comment on above: Performed By: #### B MP, CDP, LIVP, PT, PTT ####[facility] [place] [address] Potassium molar conc 4.3 mmol/L Normal 3.7-5.3 [facility] Comment on above: Performed By: #### B MP, CDP, LIVP, PT, PTT ####[facility] [address] [place] [address] Sodium 130 mmol/L Low 135-144 [facility] Comment on above: Performed By: #### B MP, CDP, LIVP, PT, PTT ####[facility] [address] [place] [address] Urea nitrogen 18 mg/dL Normal 6-20 [facility] Comment on above: Performed By: #### B MP, CDP, LIVP, PT, PTT ####[address] [address] BUN/CRE Ratio NOT REPORTED Normal 01-19 [facility] Comment on above: Performed By: #### B MP, CDP, LIVP, PT, PTT ####[address] [address] Staging: NOT REPORTED Normal [facility] Comment on above: Performed By: #### B MP, CDP, LIVP, PT, PTT ####[address] [address] CBC with Diffon 05-13-2017 Abs. Basophil 0.00 k/uL Normal 0.0-0.2 [facility] Comment on above: Performed By: #### B MP, CDP, LIVP, PT, PTT ####[address] [address] Abs.Neutrophil (Seg) 12.71 k/uL High 1.8-7.7 [facility] Comment on above: Performed By: #### B MP, CDP, LIVP, PT, PTT ####[address] [address] Basophils/100 WBC Auto (Bld) 0 % Normal 0-2 [facility] Comment on above: Performed By: #### B MP, CDP, LIVP, PT, PTT ####[address] [address] Blood morphology Normal Normal [facility] Comment on above: Result Comment: [address] [address] Performed By: #### B MP, CDP, LIVP, PT, PTT ####[address] [address] Eosinophils 0.15 10*3/uL Normal 0.0-0.4 [facility] Comment on above: Performed By: #### B MP, CDP, LIVP, PT, PTT ####[address] [address] Eosinophils/100 leukocytes 1 % Normal 1-4 [facility] Comment on above: Performed By: #### B MP, CDP, LIVP, PT, PTT ####[address] [address] Granulocytes/100 WBC (Bld) 0.00 k/uL Normal 0.00-0.30 [facility] Comment on above: Performed By: #### B MP, CDP, LIVP, PT, PTT ####[address] [address] Immature granulocytes #/vol (Bld) 0 % Normal 0 [facility] Comment on above: Performed By: #### B MP, CDP, LIVP, PT, PTT ####[address] [address] Lymphocytes 1.22 10*3/uL Normal 1.0-4.8 [facility] Comment on above: Performed By: #### B MP, CDP, LIVP, PT, PTT ####[address] [address] Lymphocytes/100 leukocytes 8 % Low 24-44 [facility] Comment on above: Performed By: #### B MP, CDP, LIVP, PT, PTT ####[address] [address] Monocytes 1.22 10*3/uL High 0.1-0.8 [facility] Comment on above: Performed By: #### B MP, CDP, LIVP, PT, PTT ####[address] [address] Monocytes/100 leukocytes 8 % High 1-7 [facility] Comment on above: Performed By: #### B MP, CDP, LIVP, PT, PTT ####[address] [address] Neutrophil (Seg) 83 % High 36-66 [facility] Comment on above: Performed By: #### B MP, CDP, LIVP, PT, PTT ####[address] [address] Erythrocyte distribution width Auto Ratio (RBC) 13.2 % Normal 11.8-14.4 [facility] Comment on above: Performed By: #### B MP, CDP, LIVP, PT, PTT ####[address] [address] Erythrocytes (RBC) 4.61 10*6/uL Normal 3.95-5.11 [facility] Comment on above: Performed By: #### B MP, CDP, LIVP, PT, PTT ####[address] [address] Hematocrit (HCT) 44.4 % Normal 36.3-47.1 [facility] Comment on above: Performed By: #### B MP, CDP, LIVP, PT, PTT ####[address] [address] Hemoglobin mass conc (Bld) 14.3 g/dL Normal 11.9-15.1 [facility] Comment on above: Performed By: #### B MP, CDP, LIVP, PT, PTT ####[address] [address] MCH 31.0 pg Normal 25.2-33.5 [facility] Comment on above: Performed By: #### B MP, CDP, LIVP, PT, PTT ####[address] [address] MCHC mass conc (RBC) 32.2 g/dL Normal 28.4-34.8 [facility] Comment on above: Performed By: #### B MP, CDP, LIVP, PT, PTT ####[address] [address] MCV 96.3 fL Normal 82.6-102.9 [facility] Comment on above: Performed By: #### B MP, CDP, LIVP, PT, PTT ####[address] [address] Platelet mean volume (PMV) 10.1 fL Normal 8.1-13.5 [facility] Comment on above: Performed By: #### B MP, CDP, LIVP, PT, PTT ####[address] [address] Platelets 195 10*3/uL Normal 138-453 [facility] Comment on above: Performed By: #### B MP, CDP, LIVP, PT, PTT ####[address] [address] WBC (Leukocytes) 15.3 10*3/uL High 3.5-11.3 [facility] Comment on above: Performed By: #### B MP, CDP, LIVP, PT, PTT ####[address] [address] Auto Diff Performed NOT REPORTED Normal [facility] Comment on above: Performed By: #### B MP, CDP, LIVP, PT, PTT ####[address] [address] Erythrocyte morphology NOT REPORTED Normal [facility] Comment on above: Performed By: #### B MP, CDP, LIVP, PT, PTT ####[address] [address] Platelets NOT REPORTED Normal [facility] Comment on above: Performed By: #### B MP, CDP, LIVP, PT, PTT ####[facility] [address] [place] [id number] WBC Morphology NOT REPORTED Normal [facility] Comment on above: Performed By: #### B MP, CDP, LIVP, PT, PTT ####[facility] [address] [place] [address] [phone] Consulton 05-13-2017 HIM IP Note OR Dehairer Normal [facility] ED Noteon 05-13-2017 HIM IP Note OR Dehairer Normal [facility] HIM IP Note OR Dehairer Normal [facility] HIM IP Note OR Dehairer Normal [facility] HIM IP Note OR Dehairer Normal [facility] HIM IP Note OR Dehairer Normal [facility] HIM IP Note OR Dehairer Normal [facility] HIM IP Note OR Dehairer Normal [facility] HIM IP Note OR Dehairer Normal [facility] HIM IP Note OR Dehairer Normal [facility] HIM IP Note OR Dehairer Normal [facility] History and Physicalon 05-13 HIM IP Note OR Dehairer Normal [facility] HIM IP Note OR Dehairer Normal [facility] Lactic Acid,Whole Blon 05-13 Lactic Acid,Whole Bl 1.6 mmol/L Normal 0.7-2.1 [facility] Comment on above: Result Comment: [facility] [place], [place] [id number] ([phone] Performed By: #### L ACWB ####[address] [address] Liver Profileon 05-13-2017 Alanine aminotransferase (ALT) 20 U/L Normal 5-33 [facility] Comment on above: Performed By: #### B MP, CDP, LIVP, PT, PTT ####[facility] [address] [place] [address], [place] [address] Albumin 3.5 g/dL Normal 3.5-5.2 [facility] Comment on above: Performed By: #### B MP, CDP, LIVP, PT, PTT ####[address] [address] Albumin/Globulin Ratio 1.1 {ratio} Normal 1.0-2.[address] [facility] Comment on above: Result Comment: [address] [address] Performed By: #### B MP, CDP, LIVP, PT, PTT ####[address] [address] Alkaline Phos 80 U/L Normal 35-104 [facility] Comment on above: Performed By: #### B MP, CDP, LIVP, PT, PTT ####[address] [address] Aspartate aminotransferase (AST) 18 U/L Normal <32 [facility] Comment on above: Performed By: #### B MP, CDP, LIVP, PT, PTT ####[address] [address] Bilirubin (direct) 0.33 mg/dL High <0.31 [facility] Comment on above: Performed By: #### B MP, CDP, LIVP, PT, PTT ####[address] [address] Bilirubin Ql (U) 0.87 mg/dL Normal 0.3-1.2 [facility] Comment on above: Performed By: #### B MP, CDP, LIVP, PT, PTT ####[address] [address] Bilirubin, Indirect 0.54 mg/dL Normal 0.00-1.00 [facility] Comment on above: Performed By: #### B MP, CDP, LIVP, PT, PTT ####[facility] [address] [place] [address] Protein 6.7 g/dL Normal 6.4-8.3 [facility] Comment on above: Performed By: #### B MP, CDP, LIVP, PT, PTT ####[facility] [address] [place] [address] Globulin NOT REPORTED Normal 1.5-3.8 [facility] Comment on above: Performed By: #### B MP, CDP, LIVP, PT, PTT ####[facility] [address] [place] [address] MRSA, DNA, Nasalon 8 Specimen Description .NASAL SWAB Normal [facility] Comment on above: Performed By: #### B MP, CDP, LIVP, PT, PTT ####[facility] [address] [place] [address] OPERATIVE REPORTon 8 OPERATIVE REPORT [address] [address] OPERATIVE REPORTPATIENT NAME: FELISHA DIALLO : 1960MED REC NO: [id number] ROOM: [address] [place] [address] NO: [id number] ADMIT DATE: 05/13/2017PROVIDER: Kiara Jerez OF PROCEDURE: 05/13/2017PREOPERATIVE DIAGNOSIS: Incarcerated ventral hernia.POSTOPERATIVE DIAGNOSIS: Incarcerated ventral hernia with necrotic omentumand distal ileum 15 cm proximal to the TI, a 2 x 2 cm defect.PROCEDURE: Exploratory laparotomy, reduction of ventral hernia, excisionof necrotic omentum, placement of Ventrio ST hernia patch measuring 19.6 cmx 24.6 cm in underlay fashion intraperitoneally, and removal of umbilicalpedicle.ANESTHESI A: General.SURGEON: Brodie Restrepo, MDASSISTANTS: Kiara Walls, PGY-4, and Aimee Christopher, PGY-2EBL: 200 mL.IV FLUIDS: 2500 mL of crystalloid.URINE OUTPUT: 240 mL.COMPLICATIONS: None.SPECIMENS: Necrotic intra-hernia omentum and umbilicus including herniasac.DRAIN: Flat MILI drain.FINDINGS: A 2 x 2 cm defect periumbilically with incarcerated distal ileum15 cm proximal to the TI. Antimesenteric portion of the bowel was dusky atfirst, but color improved at the end of the case. The entire small bowelwas ran through that was dilated proximally. Color of distal bowel becamemore pink as well.INDICATIONS FOR PROCEDURE: This is a 57-year-old female who our serviceconsulted for CT abdomen and pelvis finding of incarcerated small bowelwith possible bowel obstruction. [facility]-day history of abdominal pain locatedperiumbilically. The patient stated not having bowel movements or passingflatus for three days. Due to continuation of periumbilical pain and theCT abdomen and pelvis finding, indication for exploratory laparotomy,possible bowel resection, and possible stoma created was explained. Thepatient agreed to have the procedure done. Consent was obtained. Pleasenote, attempt at reduction was done at bedside prior to OR; however, due toa BMI of 34.9 and large extraperitoneal fat, the ventral hernia was notable to be palpated well for a manual reduction.DESCRIPTION OF PROCEDURE: The patient was wheeled to the OR suite and waspositioned on the OR table in supine position. General anesthesia wasstarted per Anesthesia. A timeout was called. Ancef 3 gm was given perAnesthesia. EPC cuffs were applied. Abdomen was prepped and draped insterile fashion. An incision was made supraumbilically, at first using a#10 blade and then electrocautery was used to get all the way down to thefascial level. Once the fascial level was reached, the peritoneum wasentered in a safe manner without injuring any bowel. Once the peritoneumwas entered, the defect was palpable periumbilically. The defect measuredto be 2 x 2 cm and there was noted to be small bowel that was stuck, whichwas removed in a careful fashion. Once the small bowel was removed, thissmall bowel was removed out of the abdomen through the midline incision. There was antimesenteric portion of bowel that was incarcerated and lookedslightly dusky, but it did not look and there was a chance forviability, so at this time, the decision was made to leave it alone and seeif the color becomes better. The area was the antimesenteric borderportion of the bowel and 15 cm proximal to the TI. The entire small bowelwas ran through. The distal ileum was slightly dusky, but there was nodead bowel that was noted or any other abnormalities. Proximal toincarcerated portion of bowel was dilated, and NG tube was already placedby Anesthesia, which was on low intermittent suction.Once the ligament of Treitz was reached, the small bowel was left outsideof the peritoneum to proceed with ventral hernia repair. It was coveredwith warm surgical towel that was wet. The decision was made to proceedwith removal of umbilical pedicle as the patient had previousabdominoplasty and the defect was basically at the base of the umbilicalpedicle. Due to questionable survival of this umbilical pedicle, thedecision was made to remove the umbilical pedicle along with the herniasac. The hernia sac at the base was identified. This was cleaned at thebase of the fascia using electrocautery and LigaSure. The fascial levelwas cleaned around the area intra-abdominally and extra-abdominally, belowand above the fascia. There was about a 2 cm bridge in between the herniadefect in between the ventral defect that was just located inferiorly andabove midline incision.Decision was made to proceed with placement of Ventrio ST hernia patch. The size of the patch was 19.6 cm x 24.6 cm mesh. This was adjusted to24.6 cm x 10 cm by cutting it. Then, the mesh was positioned in underlayfashion beneath the peritoneum and then three interrupted sutures were doneat the superior edge of the mesh and it was tacked underneath theperitoneum. For sutures, 0 Prolene was used. Once this was done, the samething was done at the inferior edge of the mesh. The inferior edge of themesh was well beyond the inferior ventral hernia defect, at least a 4 cmoverlap was noted. Three sutures were thrown at the inferior portion using0 Prolene. Once this was done, the right and left sides of the mesh weretacked against the fascia and peritoneum, 0 Prolene was used, and when themesh was placed, fascia was incorporated with the suturing. Once this wasdone, 0 double-loop PDS was used to close the fascia over the mesh and thenet of the mesh was also incorporated in between as we were closing thefascia. Then, the subcutaneous tissue was irrigated using normal saline. Then, a flat MILI drain was placed above the fascial level. Then,subcutaneous tissue was approximated using 0 Vicryl, 2-0 Vicryl, and thendermal layers were approximated using 2-0 Vicryl as well. The MILI drain wassecured with 4-0 nylon and then naveed were used to close the superficialskin, followed by 4 x 4's, sponges, fluffs, ABD, and tape. ABD abdominalbinder was applied. The patient is to be extubated per Anesthesia in theOR prior to transfer to PACU. The patient tolerated the procedure wellwithout any complication. All sponge, needle, and instrument counts werecorrect prior to closure of the abdomen.Dr. Restrepo was present for the entire case.KIARA HINESKD: 05/13/2017 14:44:18 [id number]#: [id number] Doc#: [id number]: Normal [facility] Op Noteon 05-13-2017 HIM IP Note OR Dehairer Normal [facility] PTon 05-13-2017 INR Coag RelTime (PPP) 1.0 {INR} Normal [facility] Comment on above: Result Comment: Ther apeutic Range: Moderate Anticoagulant Intensity: INR = 2.0-3.0 High Anticoagulant Intensity: INR = 2.5-3.5[facility] [employer] [facility] [place], [place] [id number] [phone] Performed By: #### B MP, CDP, LIVP, PT, PTT ####[facility] [id number] [place] [address] [id number] Prothrombin time (PT) Coag time (PPP) 10.9 s Normal 9.4-12.6 [facility] Comment on above: Performed By: #### B MP, CDP, LIVP, PT, PTT ####[facility] [address] [place] [id number] Plan of Careon 05-13-2017 HIM IP Note OR Dehairer Normal [facility] HIM IP Note OR Dehairer Normal [facility] HIM IP Note OR Dehairer Normal [facility] Progress Noteon 05-13-2017 HIM IP Note OR Dehairer Normal [facility] HIM IP Note OR Dehairer Normal [facility] HIM IP Note OR Dehairer Normal [facility] HIM IP Note OR Dehairer Normal [facility] HIM IP Note OR Dehairer Normal [facility] HIM IP Note OR Dehairer Normal [facility] HIM IP Note OR Dehairer Normal [facility] HIM IP Note OR Dehairer Normal [facility] Surgical Pathologyon 018 Surgical Pathology (NOTE)[id number]. BERNARDINE MEDICAL CENTERCONSULTING PATHOLOGISTS [facility] [id number] [place], [place] [id number] Fax: SURGICAL PATHOLOGY CONSULTATIONPatient Name: Bridget DIALLO Rec: [id number] Number: [id number]: 05/13/2017Received: 05/13/2017Reported: 05/16/2017 12:55-- Diagnosis --1. OMENTUM (INTRAHERNIAL), EXCISION:- HEMO-CONGESTION WITH EARLY ISCHEMIC NECROSIS.- FIBROUS ADHESIONS.2. UMBILICUS AND HERNIA SAC, EXCISION:- BENIGN SKIN WITH DERMAL FIBROSIS AND MILD CHRONIC INFLAMMATION.- SUBCUTANEOUS FIBROADIPOSE TISSUE WITH HERNIA SAC DEMONSTRATINGSEVERE ACUTE INFLAMMATION/EXUDATE AND FOCAL EROSION.Fran Trammell,Electronically Signed [facility]05/16/2017Clinical InformationOperative Findings: NECROTIC INTRAHERNIA OMENTUM; UMBILICUS ANDHERNIA SACOperation Performed: LAPAROTOMY EXPLORATORY REDUCTION OF VENTRALHERNIA, EXCISION OF NECROTIC OMENTUM, PLACEMENT OF VENTRIO ST HERNIAPATCH, REMOVAL OF UMBILICAL PEDICLESource of Specimen1: NECROTIC INTRAHERNIA OMENTUM2: UMBILICUS AND HERNIA SACGross Description1. FELISHA DIALLO, NECROTIC INTRAHERNIA OMENTUM Fragments of duskypink-fagan omentum with fibrous adhesions, 14.5 x 12.0 x 5.0 cm inaggregate. No discrete masses are seen. Latin Teacher sections 1cs. 2. FELISHA DIALLO, UMBILICUS AND HERNIA SAC 6.5 x 3.5 cm umbilicatedtan skin ellipse excised to a depth of 7.0 cm. At the deep marginthere is fibromembranous tissue consistent with hernia sac. Sectioning reveals fibrofatty cut surfaces with no discrete masses. Latin Teacher sections 1cs. tmMicroscopic Description1, 2. Microscopic examination performed. Normal [facility] XR CHEST LIMITEDon 8 XR CHEST LIMITED EXAMINATION:SINGLE V IEW OF THE CHEST05/13/2017 5:19 pmCOMPARISON:None.HISTORY: ORDERING SYSTEM PROVIDED HISTORY: intubated postopTECHNOLOGIST PROVIDED HISTORY:Reason for exam:->intubated postopAcute symptoms. Initial exam. Respiratory failure.FINDINGS:Endotrach eal tube tip 3 cm above the slick. Nasogastric tube tip is notwell visualized. Low lung volumes with mild bibasilar atelectasis. Nopleural effusion or pneumothorax. Heart size is accentuated by portabletechnique.IMPRESSI ON: Endotracheal tube tip 3 cm above the slick.Low lung volumes with mild bibasilar atelectasis.Interpreted by:SUMAN Tuckerigned by:Jl Diaz MD05/13/17inal result Normal [facility] Vital Signs Date Time Vital Sign Value Performing Clinician Facility 10-19-2023 14:26-0400 Body temperature 97.59 [degF] Mariana Zamora MD Work Phone: [facility] 10-19-2023 14:26-0400 Diastolic blood pressure 58 mm[Hg] Mariana Zamora MD Work Phone: [facility] 10-19-2023 14:26-0400 Heart rate 96 /min Mariana Zamora MD Work Phone: [facility] 10-19-2023 14:26-0400 Respiratory rate 18 /min Mariana Zamora MD Work Phone: [facility] 10-19-2023 14:26-0400 SaO2% (BldA) [Mass fraction] 94 % Mariana Zamora MD Work Phone: [facility] 10-19-2023 14:26-0400 Systolic blood pressure 88 mm[Hg] Mariana Zamora MD Work Phone: [facility] 07-08-2023 15:55-0500 Body height 165.1 cm Bennie Payne MD Work Phone: [facility] 07-08-2023 15:55-0500 Body weight 160.57 kg Bennie Payne MD Work Phone: [facility] 07-08-2023 15:55-0500 Diastolic blood pressure 76 mm[Hg] Bennie Payne MD Work Phone: [facility] 07-08-2023 15:55-0500 Heart rate 92 /min Bennie Payne MD Work Phone: [facility] 07-08-2023 15:55-0500 Systolic blood pressure 119 mm[Hg] Bennie Payne MD Work Phone: [facility] 06-22-2023 14:32-0500 Body temperature 97.81 [degF] Mariana Zamora MD Work Phone: [facility] 06-22-2023 14:32-0500 Diastolic blood pressure 72 mm[Hg] Mariana Zamora MD Work Phone: [facility] 06-22-2023 14:32-0500 Heart rate 91 /min Mariana Zamora MD Work Phone: [facility] 06-22-2023 14:32-0500 Respiratory rate 18 /min Mariana Zamora MD Work Phone: [facility] 06-22-2023 14:32-0500 SaO2% (BldA) [Mass fraction] 99 % Mariana Zamora MD Work Phone: [facility] 06-22-2023 14:32-0500 Systolic blood pressure 110 mm[Hg] Mariana Zamora MD Work Phone: [facility] 03-16-2023 14:07-0500 Body temperature 97.39 [degF] Mariana Zamora MD Work Phone: [facility] 03-16-2023 14:07-0500 Diastolic blood pressure 64 mm[Hg] Mariana Zamora MD Work Phone: [facility] 03-16-2023 14:07-0500 Heart rate 104 /min Mariana Zamora MD Work Phone: [facility] 03-16-2023 14:07-0500 Respiratory rate 20 /min Mariana Zamora MD Work Phone: [facility] 03-16-2023 14:07-0500 SaO2% (BldA) [Mass fraction] 92 % Mariana Zamora MD Work Phone: [facility] 03-16-2023 14:07-0500 Systolic blood pressure 90 mm[Hg] Mariana Zamora MD Work Phone: [facility] 01-20-2023 15:00-0400 Body height 172.72 cm Hetal Elissa Other [employer] Other 01-20-2023 15:00-0400 Body temperature 98.7 [degF] Hetal Elissa Other [employer] Other 01-20-2023 15:00-0400 Diastolic blood pressure 70 mm[Hg] Hetal Elissa Other [employer] Other 01-20-2023 15:00-0400 Respiratory rate 20 /min Hetal Elissa Other [employer] Other 01-20-2023 15:00-0400 SaO2% (BldA) [Mass fraction] 92 % Hetal Elissa Other [employer] Other 01-20-2023 15:00-0400 Systolic blood pressure 125 mm[Hg] Hetal Bowers Other [facility] [employer] Other 12-15-2022 14:27-0400 Body temperature 97.7 [degF] Mariana Zamora MD Work Phone: [facility] 12-15-2022 14:27-0400 Diastolic blood pressure 74 mm[Hg] Mariana Zamora MD Work Phone: [facility] 12-15-2022 14:27-0400 Heart rate 93 /min Mariana Zamora MD Work Phone: [facility] 12-15-2022 14:27-0400 Respiratory rate 18 /min Mariana Zamora MD Work Phone: [facility] 12-15-2022 14:27-0400 SaO2% (BldA) [Mass fraction] 94 % Mariana Zamora MD Work Phone: [facility] 12-15-2022 14:27-0400 Systolic blood pressure 110 mm[Hg] Mariana Zamora MD Work Phone: [facility] 09-08-2022 14:54-0400 Body height 165.6 cm Mariana Zamora MD Work Phone: [facility] 09-08-2022 14:54-0400 Body temperature 97.9 [degF] Mariana Zamora MD Work Phone: [facility] 09-08-2022 14:54-0400 Body weight 154.22 kg Mariana Zamora MD Work Phone: [facility] 09-08-2022 14:54-0400 Diastolic blood pressure 54 mm[Hg] Mariana Zamora MD Work Phone: [facility] 09-08-2022 14:54-0400 Heart rate 100 /min Mariana Zamora MD Work Phone: [facility] 09-08-2022 14:54-0400 Respiratory rate 20 /min Mariana Zamora MD Work Phone: [facility] 09-08-2022 14:54-0400 SaO2% (BldA) [Mass fraction] 96 % Mariana Zamora MD Work Phone: [facility] 09-08-2022 14:54-0400 Systolic blood pressure 110 mm[Hg] Mariana Zamora MD Work Phone: [facility] 07-20-2022 16:00-0400 Body height 172.72 cm Hetal Elissa Other [employer] Other 07-20-2022 16:00-0400 Body temperature 98.6 [degF] Hetal Elissa Other [employer] Other 07-20-2022 16:00-0400 Diastolic blood pressure 87 mm[Hg] Hetal Elissa Other [employer] Other 07-20-2022 16:00-0400 Respiratory rate 20 /min Hetal Elissa Other [employer] Other 07-20-2022 16:00-0400 SaO2% (BldA) [Mass fraction] 93 % Hetal Elissa Other [employer] Other 07-20-2022 16:00-0400 Systolic blood pressure 129 mm[Hg] Hetal Elissa Other [employer] Other 07-07-2022 13:17-0500 Body height 165.6 cm Mariana Zamora MD Work Phone: [facility] 07-07-2022 13:17-0500 Body temperature 97.11 [degF] Mariana Zamora MD Work Phone: [facility] 07-07-2022 13:17-0500 Body weight 159.76 kg Mariana Zamora MD Work Phone: [facility] 07-07-2022 13:17-0500 Diastolic blood pressure 67 mm[Hg] Mariana Zamora MD Work Phone: [facility] 07-07-2022 13:17-0500 Heart rate 103 /min Mariana Zamora MD Work Phone: [facility] 07-07-2022 13:17-0500 Respiratory rate 18 /min Mariana Zamora MD Work Phone: [facility] 07-07-2022 13:17-0500 SaO2% (BldA) [Mass fraction] 93 % Mariana Zamora MD Work Phone: [facility] 07-07-2022 13:17-0500 Systolic blood pressure 132 mm[Hg] Mariana Zamora MD Work Phone: [facility] 06-16-2022 12:32-0500 Body temperature 97.3 [degF] Kennedy Garcia MD Work Phone: [facility] 06-16-2022 12:32-0500 Diastolic blood pressure 78 mm[Hg] Kennedy Garcia MD Work Phone: [facility] 06-16-2022 12:32-0500 Heart rate 97 /min Kennedy Garcia MD Work Phone: [facility] 06-16-2022 12:32-0500 Respiratory rate 16 /min Kennedy Garcia MD Work Phone: [facility] 06-16-2022 12:32-0500 SaO2% (BldA) [Mass fraction] 96 % Kennedy Garcia MD Work Phone: [facility] 06-16-2022 12:32-0500 Systolic blood pressure 135 mm[Hg] Kennedy Garcia MD Work Phone: [facility] 06-09-2022 12:28-0500 Body temperature 97.39 [degF] Kennedy Garcia MD Work Phone: [facility] 06-09-2022 12:28-0500 Diastolic blood pressure 69 mm[Hg] Kennedy Garcia MD Work Phone: [facility] 06-09-2022 12:28-0500 Heart rate 113 /min Kennedy Garcia MD Work Phone: [facility] 06-09-2022 12:28-0500 Respiratory rate 16 /min Kennedy Garcia MD Work Phone: [facility] 06-09-2022 12:28-0500 SaO2% (BldA) [Mass fraction] 95 % Kennedy Garcia MD Work Phone: [facility] 06-09-2022 12:28-0500 Systolic blood pressure 150 mm[Hg] Kennedy Garcia MD Work Phone: [facility] 05-31-2022 13:02-0500 Body temperature 97.39 [degF] Kennedy Garcia MD Work Phone: [facility] 05-31-2022 13:02-0500 Diastolic blood pressure 72 mm[Hg] Kennedy Garcia MD Work Phone: [facility] 05-31-2022 13:02-0500 Heart rate 93 /min Kennedy Garcia MD Work Phone: [facility] 05-31-2022 13:02-0500 Respiratory rate 16 /min Kennedy Garcia MD Work Phone: [facility] 05-31-2022 13:02-0500 SaO2% (BldA) [Mass fraction] 94 % Kennedy Garcia MD Work Phone: [facility] 05-31-2022 13:02-0500 Systolic blood pressure 148 mm[Hg] Kennedy Garcia MD Work Phone: [facility] 05-18-2022 12:28-0500 Body temperature 97.39 [degF] Kennedy Garcia MD Work Phone: [facility] 05-18-2022 12:28-0500 Diastolic blood pressure 77 mm[Hg] Kennedy Garcia MD Work Phone: [facility] 05-18-2022 12:28-0500 Heart rate 96 /min Kennedy Garcia MD Work Phone: [facility] 05-18-2022 12:28-0500 Respiratory rate 18 /min Kennedy Garcia MD Work Phone: [facility] 05-18-2022 12:28-0500 SaO2% (BldA) [Mass fraction] 95 % Kennedy Garcia MD Work Phone: [facility] 05-18-2022 12:28-0500 Systolic blood pressure 129 mm[Hg] Kennedy Garcia MD Work Phone: [facility] 05-12-2022 13:52-0500 Body height 165.6 cm Mariana Zamora MD Work Phone: [facility] 05-12-2022 13:52-0500 Body temperature 97.5 [degF] Mariana Zamora MD Work Phone: [facility] 05-12-2022 13:52-0500 Body weight 162.84 kg Mariana Zamora MD Work Phone: [facility] 05-12-2022 13:52-0500 Diastolic blood pressure 83 mm[Hg] Mariana Zamora MD Work Phone: [facility] 05-12-2022 13:52-0500 Heart rate 114 /min Mariana Zamora MD Work Phone: [facility] 05-12-2022 13:52-0500 Respiratory rate 18 /min Mariana Zamora MD Work Phone: [facility] 05-12-2022 13:52-0500 SaO2% (BldA) [Mass fraction] 91 % Mariana Zamora MD Work Phone: [facility] 05-12-2022 13:52-0500 Systolic blood pressure 150 mm[Hg] Mariana Zamora MD Work Phone: [facility] 05-06-2022 13:26-0500 Body temperature 97.39 [degF] Kennedy Garcia MD Work Phone: [facility] 05-06-2022 13:26-0500 Diastolic blood pressure 73 mm[Hg] Kennedy Garcia MD Work Phone: [facility] 05-06-2022 13:26-0500 Heart rate 97 /min Kennedy Garcia MD Work Phone: [facility] 05-06-2022 13:26-0500 Respiratory rate 18 /min Kennedy Garcia MD Work Phone: [facility] 05-06-2022 13:26-0500 SaO2% (BldA) [Mass fraction] 96 % Kennedy Garcia MD Work Phone: [facility] 05-06-2022 13:26-0500 Systolic blood pressure 163 mm[Hg] Kennedy Garcia MD Work Phone: [facility] 04-02-2022 09:17-0500 Body temperature 97.39 [degF] Kennedy Garcia MD Work Phone: [facility] 04-02-2022 09:17-0500 Body weight 164.66 kg Kennedy Garcia MD Work Phone: [facility] 04-02-2022 09:17-0500 Diastolic blood pressure 83 mm[Hg] Kennedy Garcia MD Work Phone: [facility] 04-02-2022 09:17-0500 Heart rate 95 /min Kennedy Garcia MD Work Phone: [facility] 04-02-2022 09:17-0500 Respiratory rate 18 /min Kennedy Garcia MD Work Phone: [facility] 04-02-2022 09:17-0500 SaO2% (BldA) [Mass fraction] 89 % Kennedy Garcia MD Work Phone: [facility] 04-02-2022 09:17-0500 Systolic blood pressure 143 mm[Hg] Kennedy Garcia MD Work Phone: [facility] 03-31-2022 13:51-0500 Diastolic blood pressure 81 mm[Hg] [facility] 03-31-2022 13:51-0500 Heart rate 98 /min [facility] 03-31-2022 13:51-0500 Respiratory rate 18 /min [facility] 03-31-2022 13:51-0500 SaO2% (BldA) [Mass fraction] 96 % [facility] Comment on above: 03-31-2022 13:51-0500 Systolic blood pressure 138 mm[Hg] [facility] 03-10-2022 12:46-0500 Body temperature 97.9 [degF] Mariana Zamora MD Work Phone: [facility] 03-10-2022 12:46-0500 Body weight 163.29 kg Mariana Zamora MD Work Phone: [facility] 03-10-2022 12:46-0500 Diastolic blood pressure 64 mm[Hg] Mariana Zamora MD Work Phone: [facility] 03-10-2022 12:46-0500 Heart rate 98 /min Mariana Zamora MD Work Phone: [facility] 03-10-2022 12:46-0500 Respiratory rate 20 /min Mariana Zamora MD Work Phone: [facility] 03-10-2022 12:46-0500 SaO2% (BldA) [Mass fraction] 96 % Mariana Zamora MD Work Phone: [facility] 03-10-2022 12:46-0500 Systolic blood pressure 130 mm[Hg] Mariana Zamora MD Work Phone: [facility] 09-26-2022 16:00-0400 Body height 172.72 cm Hetal Elissa Other [employer] Other 01-25-2022 16:00-0400 Body temperature 96.6 [degF] Hetal Elissa Other [employer] Other 01-25-2022 16:00-0400 Diastolic blood pressure 70 mm[Hg] Hetal Elissa Other [employer] Other 01-25-2022 16:00-0400 Respiratory rate 18 /min Hetal Elissa Other [employer] Other 01-25-2022 16:00-0400 SaO2% (BldA) [Mass fraction] 94 % Hetal Elissa Other [employer] Other 01-25-2022 16:00-0400 Systolic blood pressure 124 mm[Hg] Hetal Elissa Other [employer] Other 07-08-2021 14:40-0500 Body height 172.72 cm Hetal Elissa Other [employer] Other 07-08-2021 14:40-0500 Body temperature 98 [degF] Hetal Elissa Other [employer] Other 07-08-2021 14:40-0500 Diastolic blood pressure 65 mm[Hg] Hetal Elissa Other [employer] Other 07-08-2021 14:40-0500 Respiratory rate 20 /min Hetal Elissa Other [employer] Other 07-08-2021 14:40-0500 SaO2% (BldA) [Mass fraction] 94 % Hetal Elissa Other [employer] Other 07-08-2021 14:40-0500 Systolic blood pressure 122 mm[Hg] Hetal Elissa Other [employer] Other 10-19-2020 18:12-0400 Body height 175.26 cm Sarah Valentino Work Phone: [facility] 10-19-2020 18:12-0400 Body mass index (BMI) [Ratio] 47.2 kg/m2 Sarah Valentino Work Phone: [facility] 10-19-2020 18:12-0400 Body temperature 98.1 [degF] Sarah Valentino Work Phone: [facility] 10-19-2020 18:12-0400 Body weight 145.14 kg Sarah Valentino Work Phone: [facility] 10-19-2020 18:12-0400 Diastolic blood pressure 55 mm[Hg] Sarah Valentino Work Phone: [facility] 10-19-2020 18:12-0400 Heart rate 114 /min Sarah Valentino Work Phone: [facility] 10-19-2020 18:12-0400 Respiratory rate 16 /min Sarah Valentino Work Phone: [facility] 10-19-2020 18:12-0400 SaO2% (BldA) [Mass fraction] 94 % Sarah Valentino Work Phone: [facility] 10-19-2020 18:12-0400 Systolic blood pressure 109 mm[Hg] Sarah Valentino Work Phone: [facility] Encounters Encounter Date Encounter Type Care Provider Facility Start: 10-19-2023 End: 10-19-2023 ambulatory MARIANA ZAMORA Facility:[facility] Start: 10-19-2023 End: 10-19-2023 Follow-up encounter Mariana Zamora MD Work Phone: Gynecology Oncology Comment on above: Abdominal pannus (Pr imary Dx); Encounter for follow-up surveillance of vulvar cancer [Z08, Z85.44] Start: 10-19-2023 End: 10-19-2023 Patient encounter procedure Mariana Zamora MD Work Phone: Gynecology Oncology Start: 09-27-2023 End: 09-27-2023 ambulatory SARAH VALENTINO Not Available Start: 09-20-2023 End: 09-20-2023 ambulatory MAURO A PETITTI Not Available Start: 07-19-2023 End: 07-19-2023 ambulatory MAURO A PETITTI Not Available Start: 07-08-2023 End: 07-08-2023 ambulatory BENNIE PAYNE Facility:[facility] Start: 07-08-2023 End: 07-08-2023 Office outpatient new 20 minutes Bennie Payne MD Work Phone: Plastic Surgery Comment on above: Abdominal panniculus (Primary Dx) Start: 07-08-2023 Chart abstracting Bennie hadley MD Work Phone: Plastic Surgery Comment on above: PHOTOS TAKEN Start: 07-05-2023 End: 07-05-2023 ambulatory SARAH VALENTINO Not Available Start: 07-01-2023 ambulatory Rebecca Vivien Venesile TIRE INSTALLER.INTERNET MANAGER Work Phone: Gynecology Oncology Start: 06-24-2023 Orders Only Rebecca Vivien Venesile TIRE INSTALLER.INTERNET MANAGER Work Phone: Gynecology Oncology Comment on above: Vulvar candidiasis ( Primary Dx) Start: 06-22-2023 End: 06-22-2023 ambulatory MARIANA ZAMORA Facility:[facility] Start: 06-22-2023 End: 06-22-2023 Follow-up encounter Mariana Zamora MD Work Phone: Gynecology Oncology Comment on above: Encounter for follow -up surveillance of vulvar cancer (Primary Dx); Abdominal pannus Start: 06-22-2023 End: 06-22-2023 Patient encounter procedure Mariana Zamora MD Work Phone: [facility] Start: 06-03-2023 End: 06-03-2023 ambulatory SARAH VALENTINO Not Available Start: 06-03-2023 Chart abstracting Sarah ramachandran MD Work Phone: [facility] Start: 03-21-2023 Orders Only Elidia Kebedemathew TIRE INSTALLER.INTERNET MANAGER Work Phone: Gynecology Oncology Start: 03-19-2023 ambulatory Mariana patel MD Work Phone: Gynecology Oncology Comment on above: The antifungal hieu r Start: 03-16-2023 End: 03-16-2023 ambulatory MARIANA ZAMORA Facility:[facility] Start: 03-16-2023 End: 03-16-2023 Follow-up encounter Mariana Zamora MD Work Phone: Gynecology Oncology Comment on above: Encounter for follow -up surveillance of vulvar cancer [Z08, Z85.44 (ICD-10-CM)] (Primary Dx); Vulvar candidiasis [B37.31] Start: 03-16-2023 End: 03-16-2023 Patient encounter procedure Mariana Zamora MD Work Phone: [facility] Start: 02-04-2023 End: 02-04-2023 ambulatory Hetal Elissa Other [employer] Other Start: 02-04-2023 Telephone encounter Hetal Elissa [facility] Start: 01-26-2023 End: 01-27-2023 ambulatory HETAL ELISSA Facility:[facility] Start: 01-20-2023 End: 01-20-2023 ambulatory Hetal Elissa Other [employer] Other Start: 01-20-2023 Office outpatient vi sit 15 minutes Hetal Elissa [facility] Start: 12-15-2022 End: 12-15-2022 ambulatory MARIANA ZAMORA Facility:[facility] Start: 12-15-2022 End: 12-15-2022 Follow-up encounter Mariana Zamora MD Work Phone: Gynecology Oncology Comment on above: Encounter for follow -up surveillance of vulvar cancer [Z08, Z85.44 (ICD-10-CM)] (Primary Dx) Start: 12-15-2022 End: 12-15-2022 Patient encounter procedure Mariana Zamora MD Work Phone: [facility] Start: 12-02-2022 End: 12-02-2022 ambulatory Hetal Elissa Other [employer] Other Start: 12-02-2022 Telephone encounter Hetal Elissa [facility] Start: 09-30-2022 End: 10-01-2022 ambulatory MARIANA ZAMORA Facility:[facility] Start: 09-30-2022 End: 09-30-2022 Follow-up encounter Mariana Zamora MD Work Phone: Gynecology Comment on above: Encounter for follow -up surveillance of vulvar cancer [Z08, Z85.44 (ICD-10-CM)] (Primary Dx) Start: 09-30-2022 End: 09-30-2022 Telemedicine consultation with patient Mariana Zamora MD Work Phone: [facility] Start: 09-20-2022 End: 09-21-2022 ambulatory SARAH RAMIREZMAN Facility: Start: 09-08-2022 End: 09-09-2022 ambulatory Mariana Zamora MD Work Phone: Gynecology Oncology Comment on above: Vulvar cancer (HCC) (Primary Dx); Open wound [T14.8XXA (ICD-10-CM)] Start: 09-08-2022 End: 09-09-2022 Patient encounter procedure Mariana Zamora MD Work Phone: [facility] Start: 08-31-2022 End: 08-31-2022 ambulatory HEMANT OROZCO Darcy Facility:[facility] Start: 08-26-2022 End: 08-27-2022 ambulatory DAVION MAURICE Facility:[facility] Start: 07-26-2022 End: 07-27-2022 ambulatory GRETCHEN CURRY Facility:[facility] Start: 07-20-2022 End: 07-20-2022 ambulatory Hetal Elissa Other [employer] Other Start: 07-20-2022 Office outpatient vi sit 25 minutes Hetal Elissa [facility] Start: 07-14-2022 End: 07-15-2022 ambulatory HETAL ELISSA Facility:[facility] Start: 07-07-2022 End: 07-07-2022 ambulatory Mariana Zamora MD Work Phone: Gynecology Oncology Comment on above: Vulvar cancer (HCC) [C51.9 (ICD-10-CM)] (Primary Dx); Moderate smoker (20 or less per day) [F17.210 (ICD-10-CM)]; Class 3 severe obesity due to excess calories with serious comorbidity and body mass index (BMI) of 50.0 to 59.9 in adult (HCC) [E66.01, Z68.43 (ICD-10-CM)]; Chronic obstructive pulmonary disease, unspecified COPD type (HCC) [J44.9 (ICD-10-CM)]; Type 2 diabetes mellitus with diabetic chronic kidney disease, unspecified CKD stage, unspecified whether medical terminologist insulin use (HCC) [E11.22 (ICD-10-CM)] Start: 07-07-2022 End: 07-07-2022 Patient encounter procedure Mariana Zamora MD Work Phone: [facility] Start: 07-06-2022 End: 07-07-2022 ambulatory SARAH CHELSY Facility:[facility] Start: 06-25-2022 Telephone encounter Kennedy Garcia MD Work Phone: Radiation Oncology Comment on above: Patient Update (Nurs e call post radiaiton) Start: 06-16-2022 End: 06-16-2022 Patient encounter procedure Kennedy Garcia MD Work Phone: Radiation Oncology Comment on above: Vulvar cancer (HCC) (Primary Dx) Start: 06-16-2022 Radiation Oncology Note Kennedy martinez MD Work Phone: Radiation Oncology Comment on above: Completion Note Start: 06-14-2022 Refill Kennedy Garcia MD Work Phone: Radiation Oncology Comment on above: Refill Request Start: 06-09-2022 Telephone encounter Lesia METCALF H ematology/Oncology Comment on above: Social Work Services (Transportation. Cancel all scheduled rides after 06/16/22.) home health Start: 06-09-2022 End: 06-09-2022 Patient encounter procedure Kennedy Garcia MD Work Phone: Radiation Oncology Comment on above: Vulvar cancer (HCC) (Primary Dx) Start: 06-04-2022 Telephone encounter Lesia METCALF H ematology/Oncology Comment on above: Social Work Services (Transportation) Start: 06-01-2022 End: 06-02-2022 ambulatory SARAH VALENTINO Facility: Start: 05-31-2022 End: 05-31-2022 Social Work Lesia METCALF Hematology/Oncology Comment on above: Vulvar cancer (HCC) (Primary Dx) Start: 05-27-2022 End: 05-28-2022 ambulatory MARIANA NATALIIA [facility] Facility:[facility] Start: 05-26-2022 Telephone encounter Kennedy Garcia MD Work Phone: Radiation Oncology Comment on above: Appointment Cancelle d Start: 05-25-2022 Telephone encounter Lesia METCALF H ematology/Oncology Comment on above: Social Work Services (Transportation for 06/17, 06/22 and 06/23.) Start: 05-24-2022 Refill Lilly green [facility] Work Phone: [facility] Comment on above: Refill Request Start: 05-18-2022 End: 05-18-2022 Patient encounter procedure Kennedy Garcia MD Work Phone: Radiation Oncology Comment on above: Vulvar cancer (HCC) (Primary Dx) Start: 05-12-2022 End: 05-12-2022 ambulatory Mariana Zamora MD Work Phone: Gynecology Oncology Comment on above: Vulvar cancer (HCC) [C51.9 (ICD-10-CM)] (Primary Dx); Constipation, unspecified constipation type [K59.00 (ICD-10-CM)] Start: 05-12-2022 End: 05-12-2022 Patient encounter procedure Mariana Zamora MD Work Phone: [place] Comment on above: Vulvar cancer (HCC) (Primary Dx) Start: 05-07-2022 Telephone encounter Lesia Jett CLIENT EXPERIENCE MANAGER H ematology/Oncology Comment on above: Social Work Services Start: 05-06-2022 End: 05-06-2022 Patient encounter procedure Kennedy Garcia MD Work Phone: Radiation Oncology Comment on above: Vulvar cancer (HCC) (Primary Dx) Start: 04-29-2022 Telephone encounter Lesia Jett CLIENT EXPERIENCE MANAGER H ematology/Oncology Comment on above: Social Work Services Start: 04-22-2022 Telephone encounter Lesia Jett CLIENT EXPERIENCE MANAGER H ematology/Oncology Comment on above: Returning Patient's Call Start: 04-21-2022 Telephone encounter Lesia Jett CLIENT EXPERIENCE MANAGER H ematology/Oncology Comment on above: Social Work Services (transportation) Start: 04-20-2022 Telephone encounter Lesia Jett CLIENT EXPERIENCE MANAGER H ematology/Oncology Comment on above: Social Work Services Start: 04-19-2022 ambulatory [facility] Facility: Start: 04-19-2022 Telephone encounter Lesia Jett CLIENT EXPERIENCE MANAGER H ematology/Oncology Comment on above: Social Work Services Start: 04-16-2022 Telephone encounter Lesia Jett CLIENT EXPERIENCE MANAGER H ematology/Oncology Comment on above: Social Work Services (Transportation) Start: 04-15-2022 Telephone encounter Lesia Jett CLIENT EXPERIENCE MANAGER H ematology/Oncology Comment on above: Social Work Services (Transportation) Start: 04-14-2022 Patient encounter procedure Kennedy Garcia MD Work Phone: [facility] Start: 04-14-2022 Radiation Oncology Note Kennedy martinez MD Work Phone: Radiation Oncology Comment on above: Treatment Planning Start: 04-14-2022 End: 04-14-2022 Social Work Lesia METCALF Hematology/Oncology Comment on above: Vulvar cancer (HCC) (Primary Dx) Start: 04-09-2022 Telephone encounter Lesia METCALF H ematology/Oncology Comment on above: Social Work Services Start: 04-02-2022 ambulatory Sanjana Graves DATA BASE DESIGN ANALYST Radia tion Oncology Comment on above: Patient Education Start: 04-02-2022 End: 04-02-2022 Patient encounter procedure Kennedy Garcia MD Work Phone: Radiation Oncology Comment on above: Vulvar cancer (HCC) Start: 03-31-2022 End: 04-18-2022 ambulatory UNKNOWN PROVIDER Facility:[facility] Start: 03-31-2022 End: 03-31-2022 ambulatory [facility] Emergenc y Triage, Treat and Transport Start: 03-31-2022 End: 03-31-2022 Emergency department patient visit [facility] Emergency Triage, Treat and Transport Comment on above: Arrived Start: 03-29-2022 End: 03-30-2022 ambulatory SARAH CHESTER Facility: Start: 03-29-2022 Telephone encounter Lesia METCALF H ematology/Oncology Comment on above: Social Work Services Start: 03-26-2022 Telephone encounter Lesia METCALF H ematology/Oncology Comment on above: Social Work Services (Transportation for appt with Dr. Garcia on 04/02/22) Start: 03-18-2022 End: 03-18-2022 ambulatory Mariana Zamora MD Work Phone: Gynecology Comment on above: Vulvar cancer (HCC) (Primary Dx); Type 2 diabetes mellitus with diabetic dermatitis, with long-term current use of insulin (HCC) [E11.620, Z79.4 (ICD-10-CM)] Start: 03-18-2022 End: 03-18-2022 Telemedicine consultation with patient Mariana Zamora MD Work Phone: [facility] Start: 03-18-2022 End: 03-19-2022 ambulatory MARIANA ZAMORA Facility:[facility] Start: 03-17-2022 End: 03-18-2022 ambulatory SARAH VALENTINO Facility:[facility] Start: 03-11-2022 End: 03-12-2022 ambulatory DAVION SALINASBANNER Facility:[facility] Start: 03-11-2022 Telephone encounter Mariana Zamora MD Work Phone: Gynecology Comment on above: Televisit Start: 03-10-2022 End: 03-10-2022 ambulatory Mariana Zamora MD Work Phone: Gynecology Oncology Comment on above: Vulvar cancer (HCC) (Primary Dx); Class 3 severe obesity due to excess calories with serious comorbidity in adult, unspecified BMI (HCC) [E66.01 (ICD-10-CM)]; Chronic obstructive pulmonary disease, unspecified COPD type (HCC) [J44.9 (ICD-10-CM)]; Type 2 diabetes mellitus with hyperglycemia, without long-term current use of insulin (HCC) [E11.65 (ICD-10-CM)] Start: 03-10-2022 End: 03-10-2022 Patient encounter procedure Mariana Zamora MD Work Phone: [facility] Start: 03-02-2022 Orders Only Jada lyons APRN.CNP Work Phone: Gynecology Comment on above: Vulvar cancer (HCC) (Primary Dx) Start: 02-25-2022 Orders Only Mariana patel MD Work Phone: Gynecology Comment on above: Vulvar cancer (HCC) (Primary Dx) Start: 02-15-2022 End: 02-16-2022 ambulatory DAVION MAURICE Facility:[facility] Start: 02-11-2022 End: 02-11-2022 ambulatory Sarah Valentino Facility:[facility] Start: 02-09-2022 End: 02-09-2022 ambulatory Julián Ortiz Facility:[facility] Start: 02-09-2022 End: 02-09-2022 ambulatory MD Sarah Valentino Work Phone: [facility] Work Phone: Start: 02-09-2022 End: 02-09-2022 Patient encounter procedure MD Sarah Valentino Work Phone: [id number] Testing Start: 02-08-2022 ambulatory DAVION MAURICE Faci lity:[facility] Start: 02-02-2022 End: 02-02-2022 ambulatory Julián Ortiz Facility:[facility] Start: 02-02-2022 End: 02-02-2022 ambulatory MD Sarah Valentino Work Phone: [facility] Work Phone: Start: 02-02-2022 End: 02-02-2022 Patient encounter procedure MD Sarah Valentino Work Phone: [facility] Testing Start: 01-25-2022 End: 01-25-2022 ambulatory Hetal Elissa Other [employer] Other Start: 01-25-2022 Office outpatient vi sit 15 minutes Hetal Elissa [facility] Start: 01-22-2022 End: 01-23-2022 ambulatory DAVION MAURICE Facility:[facility] Start: 01-13-2022 End: 01-14-2022 ambulatory SARAH VALENTINO Facility:[facility] Start: 01-13-2022 End: 01-13-2022 ambulatory SARAH VALENTINO Facility:[facility] Start: 12-22-2021 End: 12-22-2021 ambulatory HEMANT OROZCO . Facility:[facility] Start: 07-08-2021 End: 07-08-2021 ambulatory Hetal Elissa Other [employer] Other Start: 07-08-2021 Office outpatient vi sit 25 minutes Hetal Elissa [facility] Start: 04-29-2021 End: 04-29-2021 ambulatory Nellie Gilbert Other [employer] Other Start: 04-29-2021 Telephone encounter Nellie Gilbert [facility] Start: 10-19-2020 Evaluation and management of inpatient Sarah Chelsy Work Phone: [phone] Start: 05-13-2017 End: 05-18-2017 Evaluation and management of inpatient BRODIE Ascencio IRAIDASTEPHANIE [facility] Procedures Date Procedure Procedure Detail Performing Clinician Start: 10-19-2020 Diagnostic radiograp hy of abdomen Sarah Valentino Work Phone: Start: 06-16-2017 Mammography Sarah ramachandran MD Work Phone: Start: 05-18-2017 POCT GLUCOSE BRODIE NOV KWAKU Start: 05-18-2017 BIPAP BRODIE NOV AKOVIC Start: 05-18-2017 PULSE OXIMETRY, CONTINUOUS BRODIE NOVAKOVIC Start: 05-18-2017 POC GLUCOSE FINGERSTICK BRODIE NOVMIRNAVIC Start: 05-18-2017 IP CONSULT TO HOME C ARE NEEDS BRODIE NOVAKOSTEPHANIE Start: 05-18-2017 DISCHARGE PATIENT RACHE L NOVAKOVIC Start: 05-18-2017 POCT GLUCOSE BRODIE NOV AKOVIC Start: 05-18-2017 BIPAP BRODIE NOV AKOVIC Start: 05-18-2017 MDI TREATMENT BRODIE MARTINEZ Start: 05-18-2017 NEBULIZER TX INTERMITTENT BRODIE NOVAKOVIC Start: 05-18-2017 PULSE OXIMETRY, CONTINUOUS BRODIE NOVAKOVIC Start: 05-18-2017 POC GLUCOSE FINGERSTICK BRODIE NOVMIRNAVIC Start: 05-18-2017 POCT GLUCOSE BRODIE NOV AKMICHEAL Start: 05-18-2017 BIPAP BRODIE NOV AKOVIC Start: 05-18-2017 PULSE OXIMETRY, CONTINUOUS BRODIE NOVAKOVIC Start: 05-18-2017 NEBULIZER TX INTERMITTENT BRODIE NOVAKOVIC Start: 05-18-2017 INTAKE AND OUTPUT RACHE L NOVAKOVIC Start: 05-18-2017 BIPAP BRODIE NOV AKOVIC Start: 05-18-2017 PULSE OXIMETRY, CONTINUOUS BRODIE NOVAKOVIC Start: 05-17-2017 POC GLUCOSE FINGERSTICK BRODIE NOVKWAKU Start: 05-17-2017 POCT GLUCOSE BRODIE NOV KWAKU Start: 05-17-2017 BIPAP BRODIE NOV AKOVIC Start: 05-17-2017 MDI TREATMENT BRODIE NO AYDEIC Start: 05-17-2017 NEBULIZER TX INTERMITTENT BRODIE NOVAKOVIC Start: 05-17-2017 PULSE OXIMETRY, CONTINUOUS BRODIE NOVAKOVIC Start: 05-17-2017 POC GLUCOSE FINGERSTICK BRODIE NOVAKOVIC Start: 05-17-2017 BIPAP BRODIE NOV AKOVIC Start: 05-17-2017 PULSE OXIMETRY, CONTINUOUS BRODIE NOVAKOVIC Start: 05-17-2017 NEBULIZER TX INTERMITTENT BRODIE NOVAKOVIC Start: 05-17-2017 POCT GLUCOSE BRODIE NOV AKOVIC Start: 05-17-2017 BIPAP BRODIE NOV AKOVIC Start: 05-17-2017 PULSE OXIMETRY, CONTINUOUS BRODIE NOVAKOVIC Start: 05-17-2017 POC GLUCOSE FINGERSTICK BRODIE NOVAKOVIC Start: 05-17-2017 TRANSFER PATIENT BRODIE NOVAKOVIC Start: 05-17-2017 POCT GLUCOSE BRODEI NOV AKOVIC Start: 05-17-2017 BIPAP BRODIE NOV AKOVIC Start: 05-17-2017 MDI TREATMENT BRODIE NO LINNEAKOVIC Start: 05-17-2017 NEBULIZER TX INTERMITTENT BRODIE NOVAKOVIC Start: 05-17-2017 PULSE OXIMETRY, CONTINUOUS BRODIE NOVAKOVIC Start: 05-17-2017 POC GLUCOSE FINGERSTICK BRODIE NOVAKOVIC Start: 05-17-2017 POCT GLUCOSE BRODIE NOV AKOVIC Start: 05-17-2017 BIPAP BRODIE NOV AKOVIC Start: 05-17-2017 PULSE OXIMETRY, CONTINUOUS BRODIE NOVAKOVIC Start: 05-17-2017 NEBULIZER TX INTERMITTENT BRODIE NOVAKOVIC Start: 05-17-2017 INTAKE AND OUTPUT RACHE L NOVAKOVIC Start: 05-17-2017 BIPAP BRODIE NOV AKOVIC Start: 05-17-2017 PULSE OXIMETRY, CONTINUOUS BRODIE NOVAKOVIC Start: 05-16-2017 POC GLUCOSE FINGERSTICK BRODIE NOVAKOVIC Start: 05-16-2017 POCT GLUCOSE BRODIE NOV AKOVIC Start: 05-16-2017 BIPAP BRODIE NOV AKOVIC Start: 05-16-2017 MDI TREATMENT BRODIE NO AYDEIC Start: 05-16-2017 NEBULIZER TX INTERMITTENT BRODIE NOVAKOVIC Start: 05-16-2017 PULSE OXIMETRY, CONTINUOUS BRODIE NOVAKOVIC Start: 05-16-2017 POC GLUCOSE FINGERSTICK BRODIE NOVAKOVIC Start: 05-16-2017 BIPAP BRODIE JANETT AMES Start: 05-16-2017 PULSE OXIMETRY, CONTINUOUS BRODIEAYDE KHOURYVIC Start: 05-16-2017 NEBULIZER TX INTERMITTENT BRODIE NOVMIRNAVIC Start: 05-16-2017 TRANSFER PATIENT BRODIE KHOURYSTEPHANIE Start: 05-16-2017 POCT GLUCOSE BRODIE JANETT AMES Start: 05-16-2017 BIPAP BRODIE JANETT AMES Start: 05-16-2017 PULSE OXIMETRY, CONTINUOUS BRODIE KHOURYSTEPHANIE Start: 05-16-2017 POC GLUCOSE FINGERSTICK BRODIE KHOURYSTEPHANIE Start: 05-16-2017 NASOGASTRIC TUBE MAINTENANCE BRODIE KHOURYVIC Start: 05-16-2017 MISCELLANEOUS NURSIN G CARE ORDER (SPECIFY) BRODIE LAURO Start: 05-16-2017 DIET CARB CONTROL RACHE L IRAIDAVIC Start: 05-16-2017 POC GLUCOSE FINGERSTICK BRODIE LAURO Start: 05-16-2017 POCT GLUCOSE BRODIE JANETT AMES Start: 05-16-2017 BIPAP BRODIEAYDE AMES Start: 05-16-2017 MDI TREATMENT BRODIE NO JUAN Start: 05-16-2017 NEBULIZER TX INTERMITTENT BRODIE ROWLANDKWAKU Start: 05-16-2017 PULSE OXIMETRY, CONTINUOUS BRODIE KHOURYSTEPHANIE Start: 05-16-2017 CBC WITH AUTO DIFFERENTIAL BRODIE LAURO Start: 05-16-2017 HEMOGLOBIN A1C BRODIE Radhames DO Start: 05-16-2017 POCT GLUCOSE BRODIE JANETT AMES Start: 05-16-2017 BIPAP BRODIE JANETT AMES Start: 05-16-2017 PULSE OXIMETRY, CONTINUOUS BRODIE KHOURYSTEPHANIE Start: 05-16-2017 NEBULIZER TX INTERMITTENT BRODIE JANETTMIRNAVIC Start: 05-16-2017 INTAKE AND OUTPUT RACHE L JANETTMIRNAVIC Start: 05-16-2017 BIPAP BRODIE JANETT AMES Start: 05-16-2017 PULSE OXIMETRY, CONTINUOUS BRODIE NOVMIRNAVIC Start: 05-15-2017 POC GLUCOSE FINGERSTICK BRODIE LAURO Start: 05-15-2017 POCT GLUCOSE BRODIE JANETT AMES Start: 05-15-2017 BIPAP BRODIE JANETT AMES Start: 05-15-2017 MDI TREATMENT BRODIE NO LINNEAROSAIC Start: 05-15-2017 NEBULIZER TX INTERMITTENT BRODIE JANETTAKOVIC Start: 05-15-2017 PULSE OXIMETRY, CONTINUOUS BRODIE NOVAKOSTEPHANIE Start: 05-15-2017 PT EVAL AND TREAT RACHE L LAURO Start: 05-15-2017 POC GLUCOSE FINGERSTICK BRODIE JANETTMIRNASTEPHANIE Start: 05-15-2017 MISCELLANEOUS NURSIN G CARE ORDER (SPECIFY) BRODIE LAURO Start: 05-15-2017 BIPAP BRODIE JANETT AMES Start: 05-15-2017 PULSE OXIMETRY, CONTINUOUS BRODIE LAURO Start: 05-15-2017 MDI TREATMENT BRODIE ARENAS JUAN Start: 05-15-2017 BASIC METABOLIC PANEL R ACHEL LAURO Start: 05-15-2017 HEMOGLOBIN AND HEMAT OCRIT, BLOOD BRODIE LAURO Start: 05-15-2017 NEBULIZER TX INTERMITTENT BRODIE LAURO Start: 05-15-2017 POC GLUCOSE FINGERSTICK BRODIE LAURO Start: 05-15-2017 POCT GLUCOSE BRODIE JANETT AMES Start: 05-15-2017 BIPAP BRODEIAYDE AMES Start: 05-15-2017 PULSE OXIMETRY, CONTINUOUS BRODIE LAURO Start: 05-15-2017 NEBULIZER TX INTERMITTENT BRODIE JANETTMIRNASTEPHANIE Start: 05-15-2017 IP CONSULT TO GI BRODIE LAURO Start: 05-15-2017 POC GLUCOSE FINGERSTICK BRODIE LAURO Start: 05-15-2017 POCT GLUCOSE BRODIE JANETT AMES Start: 05-15-2017 BIPAP BRODIE JANETT AMES Start: 05-15-2017 PULSE OXIMETRY, CONTINUOUS BRODIE JANETTMIRNASTEPHANIE Start: 05-15-2017 CBC WITH AUTO DIFFERENTIAL BRODIE LAURO Start: 05-15-2017 POCT GLUCOSE BRODIEAYDE AMES Start: 05-15-2017 BIPAP BRODIE JANETT AMES Start: 05-15-2017 PULSE OXIMETRY, CONTINUOUS BRODIE NOVMIRNASTEPHANIE Start: 05-15-2017 INTAKE AND OUTPUT RACHE L LAURO Start: 05-15-2017 BIPAP BRODIE NOV KWAKU Start: 05-15-2017 PULSE OXIMETRY, CONTINUOUS BRODIE NOVAKOVIC Start: 05-14-2017 POCT GLUCOSE BRODIE JANETT AMES Start: 05-14-2017 BIPAP BRODIE JANETT AMES Start: 05-14-2017 PULSE OXIMETRY, CONTINUOUS BRODIE LAURO Start: 05-14-2017 POC GLUCOSE FINGERSTICK BRODIE JANETTMIRNASTEPHANIE Start: 05-14-2017 BIPAP BRODIE AMES Start: 05-14-2017 PULSE OXIMETRY, CONTINUOUS BRODIE NOVAKOVIC Start: 05-14-2017 WOUND OSTOMY EVAL AND TREAT BRODIE JANETTMIRNAVIC Start: 05-14-2017 POC GLUCOSE FINGERSTICK BRODIE NOVMIRNAVIC Start: 05-14-2017 POCT GLUCOSE BRODIE MARROQUINOVIC Start: 05-14-2017 EXTUBATION BRODIE AMES Start: 05-14-2017 PULSE OXIMETRY, CONTINUOUS BRODIE NOVAKOVIC Start: 05-14-2017 BIPAP BRODIE AMES Start: 05-14-2017 Ct angiography chest w/contrast/noncontrast BRODIE KHOURYVIC Start: 05-14-2017 POC GLUCOSE FINGERSTICK BRODIE NOVMIRNAVIC Start: 05-14-2017 POCT GLUCOSE BRODIE AMES Start: 05-14-2017 PULSE OXIMETRY, CONTINUOUS BRODIE NOVAKOVIC Start: 05-14-2017 BASIC METABOLIC PANEL R EVI RESTREPO Start: 05-14-2017 CBC WITH AUTO DIFFERENTIAL BRODIE IRAIDAVIC Start: 05-14-2017 LACTIC ACID, WHOLE BLOOD BRODIE JANETTMIRNAVIC Start: 05-14-2017 MAGNESIUM BRODIE MARROQUINOVIC Start: 05-14-2017 TROPONIN BRODEI AMES Start: 05-14-2017 Radiologic exam ches t single view BRODIE JANETTMIRNAVIC Start: 05-14-2017 ARTERIAL BLOOD GAS, POC BRODIE NOVAKOVIC Start: 05-14-2017 POCT GLUCOSE BRODIE AMES Start: 05-14-2017 PULSE OXIMETRY, CONTINUOUS BORDIE NOVAKOVIC Start: 05-14-2017 DAILY WEIGHTS BRODIE DEEPA MARTINEZ Start: 05-14-2017 INTAKE AND OUTPUT RACHE L JANETTMIRNAVIC Start: 05-14-2017 PULSE OXIMETRY, CONTINUOUS BRODIE NOVMIRNAVIC Start: 05-14-2017 ARTERIAL BLOOD GAS, POC BRODIE NOVAKOVIC Start: 05-14-2017 HEAD OF BED 60 DEGRE ES OR LESS BRODIE IRAIDAVIC Start: 05-14-2017 NURSING COMMUNICATION R EVI RESTREPO Start: 05-14-2017 ELEVATE HEELS OFF OF BED BRODIE ROWLANDAKOVIC Start: 05-14-2017 TURN PATIENT BRODIE MARROQUINMICHEAL Start: 05-13-2017 BASIC METABOLIC PANEL R NAFISAL LAURO Start: 05-13-2017 CBC WITH AUTO DIFFERENTIAL BRODIE NOVAKOVIC Start: 05-13-2017 MAGNESIUM BRODIE AMES Start: 05-13-2017 PHOSPHORUS BRODIE AMES Start: 05-13-2017 TROPONIN BRODIE AMES Start: 05-13-2017 BLOOD GAS, ARTERIAL BENEDICT RESTREPO Start: 05-13-2017 PULSE OXIMETRY, CONTINUOUS BRODIE RESTREPO Start: 05-13-2017 POCT GLUCOSE BRODIE AMES Start: 05-13-2017 POC GLUCOSE FINGERSTICK BRODIE RESTREPO Start: 05-13-2017 EKG 12-LEAD BRODIE AMES Start: 05-13-2017 ARTERIAL BLOOD GAS, POC BRODIE RESTREPO Start: 05-13-2017 THOMSON/UROLOGY CARE INDIRA EL IRAIDASTEPHANIE Start: 05-13-2017 INTAKE AND OUTPUT BRAXTON RESTREPO Start: 05-13-2017 IP CONSULT TO GENERA L SURGERY BRODIE KHOURYSTEPHANIE Start: 05-13-2017 MISCELLANEOUS NURSIN G CARE ORDER (SPECIFY) BRODIE KHOURYSTEPHANIE Start: 05-13-2017 NOTIFY PHYSICIAN (SPECIFY) BRODIE KHOURYSTEPHANIE Start: 05-13-2017 PLACE INTERMITTENT PNEUMATIC COMPRESSION DEVICE BRODIE RESTREPO Start: 05-13-2017 TELEMETRY MONITORING RA LIBIA RESTREPO Start: 05-13-2017 TOBACCO CESSATION EDUCATION BRODIE RESTREPO Start: 05-13-2017 FULL CODE BRODIE AMES Start: 05-13-2017 VITAL SIGNS BRODIE AMES Start: 05-13-2017 Radiologic exam ches t single view BRODIE RESTREPO Start: 05-13-2017 ABDOMINAL BINDER BRODIE KHUORYSTEPHANIE Start: 05-13-2017 IP CONSULT TO CRITICAL CARE BRODIE RESTREPO Start: 05-13-2017 RESTRAINTS NON-VIOLE NT OR [id number] BRODIE KHOURYSTEPHANIE Start: 05-13-2017 SURGICAL PATHOLOGY INDIRA EL IRAIDASTEPHANIE Start: 05-13-2017 POC GLUCOSE FINGERSTICK BRODIE KHOURYSTEPHANIE Start: 05-13-2017 TRANSFER PATIENT BRODIE RESTREPO Start: 05-13-2017 TRANSFER PATIENT BRODIE KHOURYSTEPHANIE Start: 05-13-2017 SURGICAL PATHOLOGY INDIRA EL JANETTKWAKU Start: 05-13-2017 URINE CULTURE BRODIE NO JUAN Start: 05-13-2017 POC GLUCOSE FINGERSTICK BRODIE KHOURYSTEPHANIE Start: 05-13-2017 URINE CULTURE BRODIE MARTINEZ Start: 05-13-2017 CULTURE BLOOD #1 BRODIE RESTREPO Start: 05-13-2017 BIPAP BRODIE AMES Start: 05-13-2017 PATIENT STATUS (FROM ED OR OR/PROCEDURAL) BRODIE RESTREPO Start: 05-13-2017 LACTIC ACID, WHOLE BLOOD BRODIE RESTREPO Start: 05-13-2017 APTT BRODIE AMES Start: 05-13-2017 BASIC METABOLIC PANEL R NAFISAL LAURO Start: 05-13-2017 CBC WITH AUTO DIFFERENTIAL BRODIE RESTREPO Start: 05-13-2017 HEPATIC FUNCTION PANEL BRODIE RESTREPO Start: 05-13-2017 PROTIME-INR BRODIE AMES Start: 05-13-2017 IP CONSULT TO HOSPITALIST BRODIE JANETTMIRNASTEPHANIE Start: 05-13-2017 IP CONSULT TO [facility] L SURGERY BRODIE RESTREPO Start: 05-13-2017 MRSA DNA PROBE, NASAL R EVI LAURO Plan of Treatment Date Care Activity Detail Author Start: 06-03-2026 [facility]26 [facility] Start: 10-19-2025 DIABETES SCREEN DIABETES SCREEN [facility] Start: 08-26-2025 Cholesterol [Mass/volume] in Serum or Plasma Cholesterol [facility] Start: 07-14-2025 DIABET[facility]CREEN [facility] [facility] Start: 03-10-2025 DIABETES SCREEN DIABETES SCREEN [facility] Start: 10-18-2024 BP Controlled (<130/80) BP Controlle d (<130/80) [facility] Start: 07-07-2024 BP Controlled (<130/80) BP Controlle d (<130/80) [facility] Start: 03-29-2024 Hemoglobin A1c measurement HbA1C [facility] Start: 02-22-2024 End: 02-22-2024 Follow-up encounter 02/22/2024 2:15 PM EDT Visit (SP) Office Gynecology Oncology [address] [place] [address] [place] [address] Mariana Zamora MD [address] [place] [address] 4 MONTH FOLLOW UP Gynecology Oncology Comment on above: 4 MONTH FOLLOW UP Start: 01-13-2024 End: 01-13-2024 Patient encounter procedure 01/13/2024 2:30 PM EDT Office Visit Plastic Surgery [address] [address] Bennie Payne MD [address] [place] [address] 6 month follow up Plastic Surgery Comment on above: 6 month follow up Start: 01-01-2024 Influenza vaccination Influenz a Vaccine (Season Ended) [facility] Start: 12-08-2023 End: 12-08-2023 Patient encounter procedure 12/08/2023 3:30 PM EDT Office Visit [facility] [address] [place] [address] Mauro Bates MD [address] [place] [address] [facility] Start: 12-02-2023 Hemoglobin A1c measurement HbA1C [facility] Start: 10-30-2023 Influenza vaccination Influenza Vacc ine (#1) [facility] Comment on above: Postponed from 12/31 (Insurance / Financial) Start: 09-16-2023 Medicare Annual Wellness (AWV) Medicare Annual Wellness (AWV) [facility] Start: 08-02-2023 End: 08-02-2023 Patient encounter procedure 08/02/2023 3:45 PM EDT Office Visit [facility] [address] [place] [address] Mauro Bates MD [address] [place] [address] [facility] Start: 06-03-2023 End: 06-03-2023 Patient encounter procedure 06/03/2023 2:20 PM EST Office Visit [facility] [address] [place] [id number] Sarah Valentino MD [address] [place] [address] [facility] Start: 05-02-2023 Behavioral Health Screening Behavioral Health Screening [facility] Start: 05-02-2023 Depression Assessment [facility] Start: 04-22-2023 Hemoglobin A1c measurement Diabetes: Hemoglobin A1C [facility] Start: 03-10-2023 Creatinine measurement Serum Creatin ine [facility] Start: 12-31-2022 Covid-19 Vaccine () Covid-19 Vaccine () [facility] Start: 12-31-2022 Influenza vaccination [facility] Start: 05-02-2022 [facility] Start: 03-10-2022 End: 2022 PT panel - Platelet poor plasma by Coagulation assay [facility] Work Phone: Comment on above: Expected: 03/10/2022 , Expires: 2022 Start: 03-10-2022 End: 2022 TYPE + SCREEN [facility] Work Phone: Comment on above: Expected: 03/10/2022 , Expires: 2022 Start: 01-30-2022 Influenza vaccination Influenza Vacc ine (#1) [facility] Start: 12-31-2021 Influenza vaccination INFLUENZA (#1) [facility] Start: 08-27-2021 COVID-19 VACCINE (4 - Booster for Pfizer series) COVID-19 VACCINE (4 - Booster for Pfizer series) [facility] Start: 08-27-2021 COVID-19 VACCINE (4 - Pfizer risk series) COVID-19 VACCINE (4 - Pfizer risk series) [facility] Start: 05-02-2021 DEPRESSION ASSESSMENT [facility] Start: 2020 RSV Vaccine (1 - 1-d ose 60+ series) RSV Vaccine (1 - 1-dose 60+ series) [facility] Start: 05-03-2020 Glaucoma screening Diabetes: R etinopathy Screening [facility] Start: 06-16-2018 Screening for malign ant neoplasm of breast [facility] Start: 11-03-2015 Shingles (RZV) Vacci ne (2 of 3) Shingles (RZV) Vaccine (2 of 3) [facility] Start: 11-03-2015 SHINGRIX VACCINE (1 of 2) SHINGRIX VACCINE (1 of 2) [facility] Start: 01-09-2014 PNEUMOCOCCAL (2 - PCV) PNEUMOCOCCAL (2 - PCV) [facility] Start: 01-09-2014 Pneumococcal vaccination [facility] Start: 2010 Influenza vaccination LUNG CANCER SC REENING [facility] Start: 2010 Measurement of occul t blood in single stool specimen FIT [facility] Start: 2010 Screening for malign ant neoplasm of colon CRC Screening [facility] Start: 2010 Screening for malign ant neoplasm of lung Lung Cancer Screening [facility] Start: 2010 SHINGRIX VACCINE (1 of 2) SHINGRIX VACCINE (1 of 2) [facility] Start: 2005 COLOGUARD (FIT-DNA) COLOGUARD (FIT-D NA) [facility] Start: 2005 Colonoscopy COLONOSCOPY [facility] Start: 2005 COLORECTAL CANCER SCREENING COLORECTAL CANCER SCREENING [facility] Start: [address] COLONOGRAPHY [facility] Start: 2005 DIABETES SCREEN DIABETES SCREEN [facility] Start: 2005 FECAL OCCULT BLOOD FECAL OCCULT BLOO D [facility] Start: 2005 Lipid 1996 panel - Serum or Plasma Lipid Screening [facility] Start: 2005 Lipid panel Lipid Screening [facility] Start: 2005 LIPID SCREEN LIPID SCREEN [facility] Start: 2005 Screening for malign ant neoplasm of colon [facility] Start: 2005 SIGMOIDOSCOPY SIGMOIDOSCOPY [facility] Start: 2000 Mammography [facility] Start: 2000 Screening for malign ant neoplasm of breast Mammography [facility] Start: 02-12-1998 Urine microalbumin profile [facility] Start: 1990 HPV TESTING HPV TESTING [facility] Start: 1990 Screening for malign ant neoplasm of cervix [facility] Start: 1990 Zoledronic acid therapy Alpha- 1 Antitrypsin Deficiency Screening [facility] Start: 1981 PAP TESTING PAP TESTING [facility] Start: 1981 Screening for malign ant neoplasm of cervix [facility] Start: 1979 SHINGRIX VACCINE (1 of 2) SHINGRIX VACCINE (1 of 2) [facility] Start: 1979 Urine microalbumin profile DTAP,TDAP,TD (1 - Tdap) [facility] Start: 1978 Annual PCP Team Assembler Tester rocael Disease Visit Annual PCP Team Chronic Disease Visit [facility] Start: 1978 Hepatitis B surface antibody level LDL Cholesterol [facility] Start: 1978 HEPATITIS C SCREENING HEPATITIS C SC REENING [facility] Start: 1978 [facility]: 1978 HIV SCREENING HIV SCREENING [facility] Start: 1978 HIV screening HIV Screening [facility] Start: 1978 Spirometry Spirometry [facility] Start: 1978 Tetanus + diphtheria + acellular pertussis vaccine (product) Tdap Booster [facility] Start: 1975 HIV screening HIV Test [facility] Start: 1971 Screening for malign ant neoplasm of cervix Cervical Cancer Screening [facility] Start: 1970 Diabetic foot examination Diabetic Foot Exam [facility] Start: 1970 Glaucoma screening Dilated Retinal E xam [facility] Start: 1970 Hepatitis B screening Urine Albumin:Creatinine Ratio [facility] Start: 1966 PNEUMOCOCCAL (1 - PCV) PNEUMOCOCCAL (1 - PCV) [facility] Start: 1960 COVID-19 VACCINE (#1) COVID-19 VACCI NE (#1) [facility] Start: 1960 Screening for malign ant neoplasm of colon Colonoscopy [facility] Bacteria identified in Urine by Culture URINE CULTURE Microbiology Routine Dysuria Ordered: 06/25/2022 [facility] Work Phone: Comment on above: Ordered: 06/25/2022 CT SIM PLANNING RADIATION ONCOLOGY CT SIM PLANNING RADIATION ONCOLOGY Radiology Routine Vulvar cancer (HCC) Ordered: 04/14/2022 [facility] Work Phone: Comment on above: Ordered: 04/14/2022 End: 09-30-2023 NM PET/CT SKULL-THIGH SUBSEQUENT NM PET/CT SKULL-THIGH SUBSEQUENT Radiology Routine Vulvar cancer (HCC) 1 Occurrences starting 09/08/2022 until 09/30/2023 [facility] Work Phone: Comment on above: 1 Occurrences starti ng 09/08/2022 until 09/30/2023 OUTSIDE SURG PATH SL GABRIELLA REVIEW OUTSIDE SURG PATH SLIDE REVIEW Lab Routine Vulvar cancer (HCC) Ordered: 03/02/2022 [facility] Work Phone: Comment on above: Ordered: 03/02/2022 End: 03-27-[address] attenuation skull base mid-thigh NM PET/CT SKULL-THIGH INITIAL Radiology Routine Vulvar cancer (HCC) 1 Occurrences starting 02/25/2022 until 03/27/2023 [facility] Work Phone: Comment on above: 1 Occurrences starti ng 02/25/2022 until 03/27/2023 End: 04-09-[address] attenuation skull base mid-thigh NM PET/CT SKULL-THIGH INITIAL Radiology Routine Vulvar cancer (HCC) 1 Occurrences starting 03/10/2022 until 04/09/2023 [facility] Work Phone: Comment on above: 1 Occurrences starti ng 03/10/2022 until 04/09/2023 Urinalysis complete panel - Urine URINALYSIS, WITH MICROSCOPIC Lab Routine Dysuria Ordered: 06/25/2022 [facility] Work Phone: Comment on above: Ordered: 06/25/2022 [facility] Immunizations Immunization Date Immunization Notes Care Provider [facility] 03-16-2022 seasonal influenza, intradermal, preservative free Kennedy Garcia MD Work Phone: [facility] 03-16-2022 influenza virus vacc ine, unspecified formulation Mariana Zamora MD Work Phone: [facility] 07-02-2021 COVID-19 mRNA, Susi head (Pfizer) MD Sarah Valentino Work Phone: [facility] 08-12-2020 COVID-19 mRNA,[id number] (Pfizer) Sarah Valentino Work Phone: [facility] 08-11-2020 Pfizer Purple Cap SARS-CoV-2 Vaccination Sarah Valentino MD Work Phone: [facility] 07-21-2020 COVID-19 mRNA,[id number] (Pfizer) Sarah Valentino Work Phone: [facility] 07-20-2020 Pfizer Purple Cap SARS-CoV-2 Vaccination Sarah Valentino MD Work Phone: [facility] 01-11-2020 influenza, high dose seasonal, preservative-free Et3 [facility] 01-11-2020 Influenza, High-dose Seasonal, Quadrivalent, Preservative Free Sarah Valentino MD Work Phone: [facility] 01-11-2020 influenza virus vacc ine, unspecified formulation [facility] 05-03-2018 seasonal influenza, intradermal, preservative free [facility]3 [facility] 03-18-2017 influenza nasal, unspecified formulation Kennedy Garcia MD Work Phone: [facility] 03-18-2017 influenza virus vacc ine, unspecified formulation [facility] 03-18-2017 influenza, seasonal, injectable Sarah Valentino MD Work Phone: [facility] 03-10-2017 seasonal influenza, intradermal, preservative free [facility] 03-18-2016 influenza, injectabl e, quadrivalent, preservative free Kennedy Garcia MD Work Phone: [facility] 09-08-2015 zoster vaccine, live Et3 [facility] 02-06-2015 influenza, seasonal, injectable, preservative free Kennedy Garcia MD Work Phone: [facility] 01-16-2014 influenza, injectabl e, quadrivalent, preservative free Kennedy Garcia MD Work Phone: [facility] 01-09-2013 pneumococcal polysaccharide vaccine, 23 valent Kennedy Garcia MD Work Phone: [facility] 07-04-2008 influenza, seasonal, injectable, preservative free Kennedy Garcia MD Work Phone: [facility] 07-04-2008 seasonal influenza, intradermal, preservative free Sarah Valentino MD Work Phone: [facility] 02-11-1998 poliovirus vaccine, inactivated Et3 [facility] 02-11-1998 TD(adult) unspecifie d formulation Et3 [facility] 02-10-1998 poliovirus vaccine, inactivated Sarah Valentino MD Work Phone: [facility] 02-10-1998 TD(adult) unspecifie d formulation Sarah Valentino MD Work Phone: [facility] 02-16-1996 hepatitis B vaccine, adult dosage Et3 [facility] 02-15-1996 hepatitis B vaccine, adult dosage Sarah Valentino MD Work Phone: [facility] Payers Date Payer Category Payer Self-pay [id number] 2020 Medicaid [id number] 2020 Medicare [id number] 2014 Medicare [id number] 2009 Private Health Insurance [id number] [id number] 1960 Unknown [id number] 2.16. [id number] 1960 Unknown [id number] 2.16.84 0.1.830848.3.579.2.593 1960 Unknown [id number] 2.16.84 0.1.368894.3.579.2.593 1960 Unknown [id number] 2.16.84 0.1.347770.3.579.2.593 1960 Unknown [id number] 2.16.84 0.1.130501.3.579.2.593 1960 Unknown [id number] 2.16.84 0.1.780288.3.579.2.593 1960 Unknown [id number] 2.16.84 0.1.518403.3.579.2.593 1960 Unknown [id number] 2.16.84 0.1.634977.3.579.2.593 1960 Unknown [id number] 2.16.84 0.1.784035.3.579.2.593 1960 Unknown [id number] 2.16.84 0.1.215953.3.579.2.593 1960 Unknown [id number] 2.16.84 0.1.092023.3.579.2.593 1960 Unknown [id number] 2.16.84 0.1.272645.3.579.2.593 1960 Unknown [id number] 2.16.84 0.1.923907.3.579.2.593 1960 Unknown [id number] 2.16.84 0.1.432164.3.579.2.593 1960 Unknown [id number] 2.16.84 0.1.387013.3.579.2.593 1960 Unknown [id number] 2.16.84 0.1.150378.3.579.2.593 1960 Unknown [id number] 2.16.84 0.1.264775.3.579.2.593 1960 Unknown [id number] 2.16.84 0.1.581632.3.579.2.593 1960 Unknown [id number] 2.16.84 0.1.412111.3.579.2.593 1960 Unknown [id number] 2.16.8 40.1.386894.3.579.2.727 1960 Unknown [id number] 2.16.84 0.1.857626.3.579.2.1259 1960 Unknown [id number] 2.16.84 0.1.767702.3.579.2.1259 1960 Unknown [id number] 2.16.84 0.1.509547.3.579.2.1259 1960 Unknown [id number] 2.16.84 0.1.276303.3.579.2.1259 1960 Unknown [id number] 2.16.84 0.1.384433.3.579.2.1259 1959 Medicaid [id number] 1959 Medicare [id number] 2.16. 840.1.284075.19 Unknown [id number] 2.16.8 40.1.026586.3.579.2.531 Unknown [id number] 2.16.8 40.1.785364.3.579.2.531 Unknown [id number] 2.16.8 40.1.013745.3.579.2.531 Social History Date Type Detail Facility Start: 10-19-2020 End: 04-02-2022 Tobacco smoking status MSIS Ex-smoker (finding) [facility] Start: 1960 Sex Assigned At [facility] Start: 09-08-2022 End: 12-15-2022 Sex Assigned At [facility] [employer] Other Start: 02-02-2022 End: 05-12-2016 Tobacco smoking status NHIS Smoker (finding) [facility] Tobacco smoking stat us [facility] Tobacco smoking consumption unknown [facility] Work Phone: Start: 1960 Sex Assigned At Not on file [facility] End: 05-12-2016 History of tobacco use Cigarette Smoker [facility] Start: 03-10-2022 End: 09-08-2022 Cigarettes smoked current (pack per day) - Reported 2 [facility] Start: 03-10-2022 End: 04-02-2022 Tobacco use and exposure Smokeless tobacco non-user [facility] Start: 03-10-2022 End: 10-19-2023 Alcohol intake Ex-drinker (finding) [facility] Start: 02-28-2022 End: 04-02-2022 Exposure to SARS-CoV-2 (event) Not sure [facility] National Score (1-100), lower number is lower risk 79 [facility] Start: 02-24-2022 Gender identity Identifies as female gender (finding) [facility] Start: 10-28-2022 Tobacco smoking status MSIS Occasional tobacco smoker [facility] Start: 10-28-2022 Alcohol Comment Caffeine intake: coffee, soda/pop [facility] Medical Equipment Procedure Code Equipment Code Equipment Origin al Text Equipment Identifier Dates Insertion, catheter, dialysis, tunneled, with imaging guidance [id number] FDA Start: 10-29-2020 Insertion, catheter, dialysis, tunneled, with imaging guidance [id number] [facility] Start: 10-29-2020 [id number] Start: 05-07-2023 End: 08-31-2023 True Metrix Bloo d Glucose Test test strip [id number] Start: 12-16-2022 EASY TOUCH 32 gauge x 3/16 ndle [id number] Start: 05-07-2023 Functional Status Date Assessment Result Facility 10-19-2020 Functional status Patient Not at Baseline [facility] Mental Status Date Assessment Result Facility 10-19-2020 Cognitive function Cognitive Sta tus Patient Not at Baseline [facility] Clinical Notes 07-08-2021 to 10-19-2023 Mariana Zamora MD - 10/19/2023 2:[address] - 07/08/2023 5:00 PM Bennie Rodriguez MD - 07/08/2023 7:29 AM Mariana Adams MD - 06/22/2023 2:15 PM EST Note Date & Type Note Facility 10-19-2023 History of Presen t illness Narrative DATE OF SERVICE: 10/19/2023 REASON FOR VISIT: Surveillance follow up DIAGNOSIS: Vulvar Cancer HPI: 1Juliann Diallo is a 62 year old female with pmh significant for chronic migraine, COPD, poorly controlled Type 2 DM, hydradenitis, largely wheelchair dependent and a former smoker. Presents today for follow up for her recently diagnosed squamous cell carcinoma. Patient underwent a biopsy of a right vulvar mass on 02/11/22. Initially she presented to the ER with complaints of a right labial abscess or cyst that was present for months until it had opened when wiping and observed a large amount of blood from the area. She saw bacon skinner who referred her to general surgery for a biopsy. Biopsy confirmed invasive SCC. 2. 03/16/22 PET scan with no evidence of metastasis. 3. 04/02/[address] consult with Dr. Garcia. 4. 05/03/2022: start of EBRT - COURSE: definitive AREA TREATED: vulva CURRENT DOSE: 5085 cGy in 29 fx PLANNED DOSE: 5085 cGy in 29 fx Date of last visit: 03/16/23 [facility] Outside path review : 02/12/2022 FINAL DIAGNOSIS Vaginal mass, right, biopsy (S [id number], 02/11/2022, A1-A2): -Invasive squamous cell carcinoma, HPV-associated. OBSTETRIC/ GYNECOLOGY HISTORY: Last Pap: 06/2021 NILM and HPV negative Last HPV: 06/2021 PAST MEDICAL HISTORY Diagnosis Date Asthma Bipolar depression (HCC) Chronic kidney disease, stage III (moderate) (HCC) COPD (chronic obstructive pulmonary disease) (HCC) DM (diabetes mellitus), type 2 (HCC) High blood cholesterol Migraines Sleep disorder Recent blood sugars : 190-220 07/2020 - severe bacterial pneumonia resulting in sepsis hospitalized [facility] Renal failure following this admission PAST SURGICAL HISTORY Procedure Laterality Date BOWEL RESECTION HX 2017 Family History Problem Relation Age of Onset Diabetes Mother Heart Failure Mother Emphysema Father Obstructive Sleep Apnea Father Cancer Maternal Grandmother Parkinson s Disease Paternal Grandmother Heart Attack Paternal Grandfather RECENT IMAGIN08/18/2021 Pelvic US Impression: Exam slightly limited by patient body habitus Mildly thickened endometrium for patient's age (7mm) 03/16/2022 PET IMPRESSION: 1. NECK: No FDG avid neoplastic process. No mass, adenopathy, or fluid collection. 2. CHEST: No FDG avid neoplastic process. No mass, adenopathy, or fluid collection. 3. ABDOMEN/PELVIS: No definite abnormal uptake is identified in the vulvar region, likely related to the configuration and size of the patient's known malignancy/lesion. No hypermetabolic lymphadenopathy. 4. EXTREMITIES/SKELETON: No FDG avid osseous process. No destructive/traumatic bony abnormality. 09/24/2022 PET IMPRESSION: 1. HEAD and NECK: No evidence of focal uptake to suggest FDG avid neoplastic process.. 2. CHEST: No evidence of focal uptake to suggest FDG avid neoplastic process.. 3. ABDOMEN/PELVIS: No evidence of focal uptake to suggest FDG avid neoplastic process.. 4. EXTREMITIES/SKELETON: No evidence of focal uptake to suggest FDG avid neoplastic process.. HEALTH MAINTENANCE: Last mammogram: not discussed at this visit Last colonoscopy: not discussed at this visit ECOG performance status ECOG PERFORMANCE STATUS: 4- Completely disabled. Cannot carry on any selfcare. Totally confined to bed/chair. SUBJECTIVE/INTERVAL HISTORY: Reports continued dermatologic problems of the vulva and groin, recently oral abx were decreased by her aerologist. Denies any bleeding. Patient states she has a boil near her tailbone. She is having urine incontinence. Bowel movements are getting better. No shortness of breath except when outside. Recently saw plastic surgery who would like to see her after some weight loss anticipated from starting mounjaro. Her ECOG performance status is 3 (capable of only limited selfcare, confined to bed or chair more than 50% of waking hours). OBJECTIVE: VITALS: BP 88/58 Pulse 96 Temp (Src) 97.6 (Temporal) Resp 18 SpO2 94% PELVIC: Very large pannus with lymphedema. Vulva normal appearing s/p external radiation. No new lesions identified. ASSESSMENT: 63 year old female with pmh significant for chronic migraine, COPD, poorly controlled Type 2 DM, hydradenitis, obesity, chronic venous stasis lower extremities, largely wheelchair dependent and a former smoker. Presents today for follow up if radiologic stage IB squamous cell carcinoma of the vulva. Due to location of lesion she agreed to pursue primary radiation therapy. Presents for surveillance visit. Hx vulvar cancer: - S/p EBRT 06/16/[address] Garcia - stopped after 5085Gy due to skin toxicity. - DIANE on exam today 2. Vulvar candidasis: - Patient takes fluconazole daily at baseline and is using nystatin powder to assist. Recommend continued follow up with dermatology for HS follow up. 3. Abdominal pannus - Significantly limits daily function and quality of life. S/p plastic surgery consultation and awaiting weight loss. - Recent A1c 6.3 - Recently started on mounjaro PLAN: Follow up in 3-4 months for surveillance visit or sooner with new or worsening symptoms Mariana Zamora MD The previous note from myself on 03/16/2023 was copied forward and the necessary changes were made above. Medical Decision Making: Problems: Moderate: 2+ stable chronic illnesses Risk: Low: Low risk from testing/treatment Medical Decision Making Level: 3 - Low documented in this encounter [facility] 10-19-2023 Note HNO ID: [id number] Author: MARIANA ZAMORA MD Service: ? Author Type: Physician Type: Progress Notes Filed: 10/25/2023 13:40 Note Text: DATE OF SERVICE: 10/19/2023 REASON FOR VISIT: Surveillance follow up DIAGNOSIS: Vulvar Cancer HPI: 1Juliann Diallo is a 62 year old female with pmh significant for chronic migraine, COPD, poorly controlled Type 2 DM, hydradenitis, largely wheelchair dependent and a former smoker. Presents today for follow up for her recently diagnosed squamous cell carcinoma. Patient underwent a biopsy of a right vulvar mass on 02/11/22. Initially she presented to the ER with complaints of a right labial abscess or cyst that was present for months until it had opened when wiping and observed a large amount of blood from the area. She saw bacon skinner who referred her to general surgery for a biopsy. Biopsy confirmed invasive SCC. 2. 03/16/22 PET scan with no evidence of metastasis. 3. 04/02/[address] consult with Dr. Garcia. 4. 05/03/2022: start of EBRT - COURSE: definitive AREA TREATED: vulva CURRENT DOSE: 5085 cGy in 29 fx PLANNED DOSE: 5085 cGy in 29 fx Date of last visit: 03/16/23 [facility] Outside path review : 02/12/2022 FINAL DIAGNOSIS Vaginal mass, right, biopsy ([id number], 02/11/2022, A1-A2): -Invasive squamous cell carcinoma, HPV-associated. OBSTETRIC/ GYNECOLOGY HISTORY: Last Pap: 06/2021 NILM and HPV negative Last HPV: 06/2021 PAST MEDICAL HISTORY Diagnosis Date Asthma Bipolar depression (HCC) Chronic kidney disease, stage III (moderate) (HCC) COPD (chronic obstructive pulmonary disease) (HCC) DM (diabetes mellitus), type 2 (HCC) High blood cholesterol Migraines Sleep disorder Recent blood sugars : 190-220 07/2020 - severe bacterial pneumonia resulting in sepsis hospitalized [facility] Renal failure following this admission PAST SURGICAL HISTORY Procedure Laterality Date BOWEL RESECTION HX 2017 Family History Problem Relation Age of Onset Diabetes Mother Heart Failure Mother Emphysema Father Obstructive Sleep Apnea Father Cancer Maternal Grandmother Parkinson?s Disease Paternal Grandmother Heart Attack Paternal Grandfather RECENT IMAGIN08/18/2021 Pelvic US Impression: Exam slightly limited by patient body habitus Mildly thickened endometrium for patient's age (7mm) 03/16/2022 PET IMPRESSION: 1. NECK: No FDG avid neoplastic process. No mass, adenopathy, or fluid collection. 2. CHEST: No FDG avid neoplastic process. No mass, adenopathy, or fluid collection. 3. ABDOMEN/PELVIS: No definite abnormal uptake is identified in the vulvar region, likely related to the configuration and size of the patient's known malignancy/lesion. No hypermetabolic lymphadenopathy. 4. EXTREMITIES/SKELETON: No FDG avid osseous process. No destructive/traumatic bony abnormality. 09/24/2022 PET IMPRESSION: 1. HEAD and NECK: No evidence of focal uptake to suggest FDG avid neoplastic process.. 2. CHEST: No evidence of focal uptake to suggest FDG avid neoplastic process.. 3. ABDOMEN/PELVIS: No evidence of focal uptake to suggest FDG avid neoplastic process.. 4. EXTREMITIES/SKELETON: No evidence of focal uptake to suggest FDG avid neoplastic process.. HEALTH MAINTENANCE: Last mammogram: not discussed at this visit Last colonoscopy: not discussed at this visit ECOG performance status ECOG PERFORMANCE STATUS: 4- Completely disabled. Cannot carry on any selfcare. Totally confined to bed/chair. SUBJECTIVE/INTERVAL HISTORY: Reports continued dermatologic problems of the vulva and groin, recently oral abx were decreased by her aerologist. Denies any bleeding. Patient states she has a boil near her tailbone. She is having urine incontinence. Bowel movements are getting better. No shortness of breath except when outside. Recently saw plastic surgery who would like to see her after some weight loss anticipated from starting mounjaro. Her ECOG performance status is 3 (capable of only limited selfcare, confined to bed or chair more than 50% of waking hours). OBJECTIVE: VITALS: BP 88/58 Pulse 96 Temp (Src) 97.6 (Temporal) Resp 18 SpO2 94% PELVIC: Very large pannus with lymphedema. Vulva normal appearing s/p external radiation. No new lesions identified. ASSESSMENT: 63 year old female with pmh significant for chronic migraine, COPD, poorly controlled Type 2 DM, hydradenitis, obesity, chronic venous stasis lower extremities, largely wheelchair dependent and a former smoker. Presents today for follow up if radiologic stage IB squamous cell carcinoma of the vulva. Due to location of lesion she agreed to pursue primary radiation therapy. Presents for surveillance visit. Hx vulvar cancer: - S/p EBRT 06/16/[address] Garcia - stopped after 5085Gy due to skin toxicity. - DIANE on exam today 2. Vulvar candidasis: - Patient takes fluconazole daily at baseline and is us (more content not included)... [facility] 07-08-2023 Note HNO ID: [id number] Author: BEN BALDWIN ST Service: ? Author Type: Milk Deliverer Type: Progress Notes Filed: 07/08/2023 17:00 Note Text: DATE OF PHOTOS: 07/08/2023 Body Part: Abdomen ST Efra July 08, 2023 5:00 PM [facility] 07-08-2023 History of Presen t illness Narrative DATE OF PHOTOS: 07/08/2023 Body Part: Abdomen ST Efra July 08, 2023 5:00 PM documented in this encounter [facility] 07-08-2023 Note HNO ID: [id number] Author: BENNIE PAYNE MD Service: ? Author Type: Physician Type: Progress Notes Filed: 07/13/2023 09:01 Note Text: CC: Consult for PANNICULECTOMY Referred by Mariana Zamora MD, Gynecology HPI: Felisha Diallo is a 63 year old female presenting today for surgical evaluation for removal of excess skin of the abdomen. Diagnosis with vulvar cancer Patient had biopsy of a right vulvar mass on 02/11/22, biopsy confirmed invasive SCC [facility] Outside path review : 02/12/2022 FINAL DIAGNOSIS Vaginal mass, right, biopsy ([id number], 02/11/2022, A1-A2): -Invasive squamous cell carcinoma, HPV-associated. Received external radiation 05/03/2022 06/16/2022: start of EBRT Dr. Garcia - COURSE: definitive AREA TREATED: vulva CURRENT DOSE: 5085 cGy in 29 fx Stopped after 5085Gy d/t skin toxicity Reports ledbetter from radiation that have not healed Patient is largely wheelchair dependent. States she can't walk because her abdominal skin catches on the sides and trips her She sees dermatology for management of hidradenitis Reports cellulitis on legs and also neuropathy She has received dialysis for kidney failure Hx of Bariatric Surgery: denies Abdominal surgeries: yes, panniculectomy in 1999 (reports 25 lbs off abdomen) Medical history includes: Chronic migraine, COPD, type 2 DM (recent A1C 6.3), hidradenitis, morbid obesity Patient was recently started on Ozempic Personal or family hx of DVT/PE or clotting disorder: denies DM: yes type 2, last A1C 6.3 per patient Hx of smoking: yes, stopped smoking 7 years ago Patient has COPD Problems related to skin excess: Takes fluconazole daily at baseline for vulvar candidiasis and is using nystatin powder Intertrigo: yes The excess skin interferes with: Bathing: yes, reports she has a hard time cleansing this area as she is unable to fully reach Dressing yes has to wear underwear and pants backwards Daily routines: yes, she cannot walk and is wheelchair dependent Reports excess skin of abdomen limits her daily function and quality of life TREATMENTS: Has tried the following without significant improvement in her symptoms: Skin ulceration/Intertrigo: yes Topical or oral antifungal agents: Type: nystatin Participation in medically supervised weight loss program: Yes: states she is beginning Ozempic PAIN: yes OB HISTORY: PARA:1 Lives in: [facility] RECENT IMAGIN08/18/2021 Pelvic US Impression: Exam slightly limited by patient body habitus Mildly thickened endometrium for patient's age (7mm) 03/16/2022 PET IMPRESSION: 1. NECK: No FDG avid neoplastic process. No mass, adenopathy, or fluid collection. 2. CHEST: No FDG avid neoplastic process. No mass, adenopathy, or fluid collection. 3. ABDOMEN/PELVIS: No definite abnormal uptake is identified in the vulvar region, likely related to the configuration and size of the patient's known malignancy/lesion. No hypermetabolic lymphadenopathy. 4. EXTREMITIES/SKELETON: No FDG avid osseous process. No destructive/traumatic bony abnormality. 09/24/2022 PET IMPRESSION: 1. HEAD and NECK: No evidence of focal uptake to suggest FDG avid neoplastic process.. 2. CHEST: No evidence of focal uptake to suggest FDG avid neoplastic process.. 3. ABDOMEN/PELVIS: No evidence of focal uptake to suggest FDG avid neoplastic process.. 4. EXTREMITIES/SKELETON: No evidence of focal uptake to suggest FDG avid neoplastic process. ALLERGIES Allergen Reactions Azithromycin Unknown Corticosteroids (Gl* Swelling Doxycycline Other: See Comments, Swelling PAST MEDICAL HISTORY Diagnosis Date Asthma Bipolar depression (HCC) Chronic kidney disease, stage III (moderate) (HCC) COPD (chronic obstructive pulmonary disease) (HCC) DM (diabetes mellitus), type 2 (HCC) High blood cholesterol Migraines Sleep disorder PAST SURGICAL HISTORY Procedure Laterality Date BOWEL RESECTION HX 2016 chlorhexidine (HIBICLENS) 4 % external liquid Lather onto affected areas on the body and rinse, avoid face, once a week in the shower docusate sodium (COLACE) 100 mg capsule Take 1 capsule by mouth once daily as needed. ipratropium-albuterol (DUONEB) 0.5 mg-3 mg(2.5 mg base)/3 mL nebu q 6 HR. nystatin (MYCOSTATIN) powder tirzepatide (MOUNJARO) 7.5 mg/0.5 mL pen injector Inject 7.5 mg subcutaneously. umeclidinium (INCRUSE ELLIPTA) 62.5 mcg/actuation inhaler Inhale 1 Puff as instructed once daily. polyethylene glycol 3350 (MIRALAX) 17 gram/dose powder Take 17 g by mouth once daily. Dissolve dose in 4 - 8 ounces of liquid and take as directed. LANTUS SOLOSTAR U-100 INSULIN 100 unit/mL (3 mL) 65 Units. montelukast (SINGULAIR) 10 mg tablet rosuvastatin (CRESTOR) 10 mg tablet fluticasone-salmeterol (ADVAIR) 500-50 mcg/dose dsdv ALPRAZolam (XANAX) 0.5 mg tablet glipiZIDE (GLUCOTROL XL) 10mg 24 hr tablet lamoTRIgine (LAMICTAL) 25 mg tablet venlafaxine ER (EFFEX (more content not included)... [facility] 07-08-2023 History of Presen t illness Narrative Images from the original note were not included. CC: Consult for PANNICULECTOMY Referred by Mariana Zamora MD, Gynecology HPI: Felisha Diallo is a 63 year old female presenting today for surgical evaluation for removal of excess skin of the abdomen. Diagnosis with vulvar cancer Patient had biopsy of a right vulvar mass on 02/11/22, biopsy confirmed invasive SCC [facility] Outside path review : 02/12/2022 FINAL DIAGNOSIS Vaginal mass, right, biopsy ([id number], 02/11/2022, A1-A2): -Invasive squamous cell carcinoma, HPV-associated. Received external radiation 05/03/2022 06/16/2022: start of EBRT Dr. Garcia - COURSE: definitive AREA TREATED: vulva CURRENT DOSE: 5085 cGy in 29 fx Stopped after 5085Gy d/t skin toxicity Reports ledbetter from radiation that have not healed Patient is largely wheelchair dependent. States she can't walk because her abdominal skin catches on the sides and trips her She sees dermatology for management of hidradenitis Reports cellulitis on legs and also neuropathy She has received dialysis for kidney failure Hx of Bariatric Surgery: denies Abdominal surgeries: yes, panniculectomy in 1999 (reports 25 lbs off abdomen) Medical history includes: Chronic migraine, COPD, type 2 DM (recent A1C 6.3), hidradenitis, morbid obesity Patient was recently started on Ozempic Personal or family hx of DVT/PE or clotting disorder: denies DM: yes type 2, last A1C 6.3 per patient Hx of smoking: yes, stopped smoking 7 years ago Patient has COPD Problems related to skin excess: Takes fluconazole daily at baseline for vulvar candidiasis and is using nystatin powder Intertrigo: yes The excess skin interferes with: Bathing: yes, reports she has a hard time cleansing this area as she is unable to fully reach Dressing yes has to wear underwear and pants backwards Daily routines: yes, she cannot walk and is wheelchair dependent Reports excess skin of abdomen limits her daily function and quality of life TREATMENTS: Has tried the following without significant improvement in her symptoms: Skin ulceration/Intertrigo: yes Topical or oral antifungal agents: Type: nystatin Participation in medically supervised weight loss program: Yes: states she is beginning Ozempic PAIN: yes OB HISTORY: PARA:1 Lives in: [facility] RECENT IMAGIN08/18/2021 Pelvic US Impression: Exam slightly limited by patient body habitus Mildly thickened endometrium for patient's age (7mm) 03/16/2022 PET IMPRESSION: 1. NECK: No FDG avid neoplastic process. No mass, adenopathy, or fluid collection. 2. CHEST: No FDG avid neoplastic process. No mass, adenopathy, or fluid collection. 3. ABDOMEN/PELVIS: No definite abnormal uptake is identified in the vulvar region, likely related to the configuration and size of the patient's known malignancy/lesion. No hypermetabolic lymphadenopathy. 4. EXTREMITIES/SKELETON: No FDG avid osseous process. No destructive/traumatic bony abnormality. 09/24/2022 PET IMPRESSION: 1. HEAD and NECK: No evidence of focal uptake to suggest FDG avid neoplastic process.. 2. CHEST: No evidence of focal uptake to suggest FDG avid neoplastic process.. 3. ABDOMEN/PELVIS: No evidence of focal uptake to suggest FDG avid neoplastic process.. 4. EXTREMITIES/SKELETON: No evidence of focal uptake to suggest FDG avid neoplastic process. ALLERGIES Allergen Reactions Azithromycin Unknown Corticosteroids (Gl* Swelling Doxycycline Other: See Comments, Swelling PAST MEDICAL HISTORY Diagnosis Date Asthma Bipolar depression (HCC) Chronic kidney disease, stage III (moderate) (HCC) COPD (chronic obstructive pulmonary disease) (HCC) DM (diabetes mellitus), type 2 (HCC) High blood cholesterol Migraines Sleep disorder PAST SURGICAL HISTORY Procedure Laterality Date BOWEL RESECTION HX 2016 chlorhexidine (HIBICLENS) 4 % external liquid Lather onto affected areas on the body and rinse, avoid face, once a week in the shower docusate sodium (COLACE) 100 mg capsule Take 1 capsule by mouth once daily as needed. ipratropium-albuterol (DUONEB) 0.5 mg-3 mg(2.5 mg base)/3 mL nebu q 6 HR. nystatin (MYCOSTATIN) powder tirzepatide (MOUNJARO) 7.5 mg/0.5 mL pen injector Inject 7.5 mg subcutaneously. umeclidinium (INCRUSE ELLIPTA) 62.5 mcg/actuation inhaler Inhale 1 Puff as instructed once daily. polyethylene glycol 3350 (MIRALAX) 17 gram/dose powder Take 17 g by mouth once daily. Dissolve dose in 4 - 8 ounces of liquid and take as directed. LANTUS SOLOSTAR U-100 INSULIN 100 unit/mL (3 mL) 65 Units. montelukast (SINGULAIR) 10 mg tablet rosuvastatin (CRESTOR) 10 mg tablet fluticasone-salmeterol (ADVAIR) 500-50 mcg/dose dsdv ALPRAZolam (XANAX) 0.5 mg tablet glipiZIDE (GLUCOTROL XL) 10mg 24 hr tablet lamoTRIgine (LAMICTAL) 25 mg tablet venlafaxine ER (EFFEXOR XR) 150 mg 24 hr capsule fluticasone (FLONASE) 50 mcg/actuation nasal spray fluconazole (DIFLUCAN) 100 mg tablet one time a week. albuterol HFA (PROVENTIL HFA, VENTOLIN HFA) 90 mcg/actuation inhaler topiramate (TOPAMAX) 200 mg tablet acetaminophen (TYLENOL) 500 mg tablet Acetaminophen Active 1500 MG PO Daily February 02, 2022 12:00am HUMIRA,CF, PEN 40 mg/0.4 mL pen kit famotidine (PEPCID) 20 mg tablet tolterodine ER (DETROL LA) 4 mg 24 hr capsule diphenhydrAMINE-Acetaminophen (TYLENOL PM EXTRA STRENGTH) 25-500 mg tab 1 (one) time each day at the same time. gabapentin (NEURONTIN) 300 mg capsule minocycline (MINOCIN, DYNACIN) 50 mg capsule EASY TOUCH 32 gauge x 3/16 ndle Social History Tobacco Use Smoking status: Former Packs/day: 2.00 Years: 45.00 Additional pack years: 0.00 Total pack years: 90.00 Types: Cigarettes Quit date: 05/12/2016 Years since quittin.1 Smokeless tobacco: Never Vaping Use Vaping Use: current everyday user Substances: Nicotine, Flavoring Devices: Block[employer]venueble tank Substance Use Topics Alcohol use: Not Currently Drug use: Not Currently OBJECTIVE: Last 6 Encounter Wt Readings: Date: Wt: 09/08/2022 154.2 kg (340 lb) 07/07/2022 159.8 kg (352 lb 3.2 oz) 05/12/2022 162.8 kg (359 lb) 04/02/2022 164.7 kg (363 lb) 03/10/2022 163.3 kg (360 lb) EXAM: NAD; A&O x 3 BP 119/76 Pulse 92 Ht 5' 5 (1.65m) Wt 354 lb (160.6kg) BMI 58.91 kg/(m^2). Body surface area is 2.71 meters squared. Healed midline and transverse scars Surgical lack of umbilicus Hanging panniculus with significant lymphedema and puruple discoloration hanging approx 25cm No open wounds ASSESSMENT/PLAN: 47 year old female with symptomatic abdominal panniculus Advised weight loss prior to surgery to achieve best surgical outcome and safety. Continue taking Mounjaro, follow with Dr. Valentino (PCP). Continue management of diabetes. Continue wound care. Procedure, risks and benefits discussed including but not limited to risks for infection, blood clots bleeding, pain, bad scars, asymmetries, potential use of drains, need for re-operation, poor aesthetic results, skin necrosis and anesthetic/perioperative complications. Patient verbalizes understanding. Patient is not an optimal surgical candidate at this time. Photos today. Follow up in 6 months The patient is seen and examined by Dr. Payne and the following reflects his service. Scribed by Estefani Mark RN documented in this encounter [facility] 07-01-2023 Miscellaneous Notes Formattin g of this note might be different from the original. Received call from pharmacy, stated ointment was prescribed, however cream is generic, but ointment is brand name. Advised switch to cream would be acceptable. MAR updated. Rebecca Jeffers APRN.INTERNET MANAGER documented in this encounter [facility] 06-22-2023 History of Presen t illness Narrative DATE OF SERVICE: 06/22/2023 REASON FOR VISIT: Surveillance follow up DIAGNOSIS: Vulvar Cancer HPI: 1Juliann Diallo is a 62 year old female with pmh significant for chronic migraine, COPD, poorly controlled Type 2 DM, hydradenitis, largely wheelchair dependent and a former smoker. Presents today for follow up for her recently diagnosed squamous cell carcinoma. Patient underwent a biopsy of a right vulvar mass on 02/11/22. Initially she presented to the ER with complaints of a right labial abscess or cyst that was present for months until it had opened when wiping and observed a large amount of blood from the area. She saw bacon skinner who referred her to general surgery for a biopsy. Biopsy confirmed invasive SCC. 2. 03/16/22 PET scan with no evidence of metastasis. 3. 04/02/20[address] consult with Dr. Garcia. 4. 05/03/2022: start of EBRT - COURSE: definitive AREA TREATED: vulva CURRENT DOSE: 5085 cGy in 29 fx PLANNED DOSE: 5085 cGy in 29 fx Date of last visit: 03/16/23 [facility] Outside path review : 02/12/2022 FINAL DIAGNOSIS Vaginal mass, right, biopsy ([id number], 02/11/2022, A1-A2): -Invasive squamous cell carcinoma, HPV-associated. OBSTETRIC/ GYNECOLOGY HISTORY: Last Pap: 06/2021 NILM and HPV negative Last HPV: 06/2021 PAST MEDICAL HISTORY Diagnosis Date Asthma Bipolar depression (HCC) Chronic kidney disease, stage III (moderate) (HCC) COPD (chronic obstructive pulmonary disease) (HCC) DM (diabetes mellitus), type 2 (HCC) High blood cholesterol Migraines Sleep disorder Recent blood sugars : 190-220 07/2020 - severe bacterial pneumonia resulting in sepsis hospitalized [facility] Renal failure following this admission PAST SURGICAL HISTORY Procedure Laterality Date BOWEL RESECTION HX 2017 Family History Problem Relation Age of Onset Diabetes Mother Heart Failure Mother Emphysema Father Obstructive Sleep Apnea Father Cancer Maternal Grandmother Parkinson s Disease Paternal Grandmother Heart Attack Paternal Grandfather RECENT IMAGIN08/18/2021 Pelvic US Impression: Exam slightly limited by patient body habitus Mildly thickened endometrium for patient's age (7mm) 03/16/2022 PET IMPRESSION: 1. NECK: No FDG avid neoplastic process. No mass, adenopathy, or fluid collection. 2. CHEST: No FDG avid neoplastic process. No mass, adenopathy, or fluid collection. 3. ABDOMEN/PELVIS: No definite abnormal uptake is identified in the vulvar region, likely related to the configuration and size of the patient's known malignancy/lesion. No hypermetabolic lymphadenopathy. 4. EXTREMITIES/SKELETON: No FDG avid osseous process. No destructive/traumatic bony abnormality. 09/24/2022 PET IMPRESSION: 1. HEAD and NECK: No evidence of focal uptake to suggest FDG avid neoplastic process.. 2. CHEST: No evidence of focal uptake to suggest FDG avid neoplastic process.. 3. ABDOMEN/PELVIS: No evidence of focal uptake to suggest FDG avid neoplastic process.. 4. EXTREMITIES/SKELETON: No evidence of focal uptake to suggest FDG avid neoplastic process.. HEALTH MAINTENANCE: Last mammogram: not discussed at this visit Last colonoscopy: not discussed at this visit ECOG performance status ECOG PERFORMANCE STATUS: 4- Completely disabled. Cannot carry on any selfcare. Totally confined to bed/chair. SUBJECTIVE/INTERVAL HISTORY: Reports continued dermatologic problems of the vulva and groin, was recommended soap from aerologist that she was unable to obtain through insurance. Also has been unable to get an aid to help wash her vulvar area and groin as there are none available. States she was discharged from wound clinic and is having neighbor change dressings on her legs as she is unable to do so. Being followed for depression which she states she has been struggling with recently. States she had previous referral to Plastic Surgery to discuss panniculectomy but her insurance would not cover it. Will be starting Ozempic soon to help with glucose control. Her ECOG performance status is 3 (capable of only limited selfcare, confined to bed or chair more than 50% of waking hours). OBJECTIVE: VITALS: BP 110/72 Pulse 91 Temp (Src) 97.8 (Temporal) Resp 18 SpO2 99% PELVIC: Very large pannus with lymphedema. Vulva normal appearing s/p external radiation. No new lesions identified. ASSESSMENT: 63 year old female with pmh significant for chronic migraine, COPD, poorly controlled Type 2 DM, hydradenitis, obesity, chronic venous stasis lower extremities, largely wheelchair dependent and a former smoker. Presents today for follow up if radiologic stage IB squamous cell carcinoma of the vulva. Due to location of lesion she agreed to pursue primary radiation therapy. Presents for surveillance visit. Hx vulvar cancer: - S/p EBRT 06/16/[address] Garcia - stopped after 5085Gy due to skin toxicity. - DIANE on exam today 2. Vulvar candidasis: - Patient takes fluconazole daily at baseline and is using nystatin powder to assist. Recommend continued follow up with dermatology for HS follow up. 3. Abdominal pannus - Significantly limits daily function and quality of life. Requested plastic surgery consultation to discuss surgical excision. - Recent A1c 6.3 - Recently started on Ozempic PLAN: Follow up in 4 months for surveillance visit or sooner with new or worsening symptoms Consult to Plastic Surgery Mariana Zamora MD The previous note from myself on 03/16/2023 was copied forward and the necessary changes were made above. Scribe Attestation: By signing my name below, IMariana Scribe, attest that this documentation has been prepared under the direction and in the presence of Mariana Zamora MD. Electronically Signed: Urbano Patricia. June 22, 2023 3:12 PM. Medical Decision Making: Problems: Moderate: 2+ stable chronic illnesses Risk: Low: Low risk from testing/treatment Medical Decision Making Level: 3 - Low documented in this encounter [facility] 06-22-2023 Note HNO ID: [id number] Author: MARIANA ZAMORA MD Service: ? Author Type: Physician Type: Progress Notes Filed: 06/28/2023 12:05 Note Text: DATE OF SERVICE: 06/22/2023 REASON FOR VISIT: Surveillance follow up DIAGNOSIS: Vulvar Cancer HPI: 1Juliann Diallo is a 62 year old female with pmh significant for chronic migraine, COPD, poorly controlled Type 2 DM, hydradenitis, largely wheelchair dependent and a former smoker. Presents today for follow up for her recently diagnosed squamous cell carcinoma. Patient underwent a biopsy of a right vulvar mass on 02/11/22. Initially she presented to the ER with complaints of a right labial abscess or cyst that was present for months until it had opened when wiping and observed a large amount of blood from the area. She saw bacon skinner who referred her to general surgery for a biopsy. Biopsy confirmed invasive SCC. 2. 03/16/22 PET scan with no evidence of metastasis. 3. 04/02/20[address] consult with Dr. Garcia. 4. 05/03/2022: start of EBRT - COURSE: definitive AREA TREATED: vulva CURRENT DOSE: 5085 cGy in 29 fx PLANNED DOSE: 5085 cGy in 29 fx Date of last visit: 03/16/23 [facility] Outside path review : 02/12/2022 FINAL DIAGNOSIS Vaginal mass, right, biopsy ([id number], 02/11/2022, A1-A2): -Invasive squamous cell carcinoma, HPV-associated. OBSTETRIC/ GYNECOLOGY HISTORY: Last Pap: 06/2021 NILM and HPV negative Last HPV: 06/2021 PAST MEDICAL HISTORY Diagnosis Date Asthma Bipolar depression (HCC) Chronic kidney disease, stage III (moderate) (HCC) COPD (chronic obstructive pulmonary disease) (HCC) DM (diabetes mellitus), type 2 (HCC) High blood cholesterol Migraines Sleep disorder Recent blood sugars : 190-220 07/2020 - severe bacterial pneumonia resulting in sepsis hospitalized [facility] Renal failure following this admission PAST SURGICAL HISTORY Procedure Laterality Date BOWEL RESECTION HX 2017 Family History Problem Relation Age of Onset Diabetes Mother Heart Failure Mother Emphysema Father Obstructive Sleep Apnea Father Cancer Maternal Grandmother Parkinson?s Disease Paternal Grandmother Heart Attack Paternal Grandfather RECENT IMAGIN08/18/2021 Pelvic US Impression: Exam slightly limited by patient body habitus Mildly thickened endometrium for patient's age (7mm) 03/16/2022 PET IMPRESSION: 1. NECK: No FDG avid neoplastic process. No mass, adenopathy, or fluid collection. 2. CHEST: No FDG avid neoplastic process. No mass, adenopathy, or fluid collection. 3. ABDOMEN/PELVIS: No definite abnormal uptake is identified in the vulvar region, likely related to the configuration and size of the patient's known malignancy/lesion. No hypermetabolic lymphadenopathy. 4. EXTREMITIES/SKELETON: No FDG avid osseous process. No destructive/traumatic bony abnormality. 09/24/2022 PET IMPRESSION: 1. HEAD and NECK: No evidence of focal uptake to suggest FDG avid neoplastic process.. 2. CHEST: No evidence of focal uptake to suggest FDG avid neoplastic process.. 3. ABDOMEN/PELVIS: No evidence of focal uptake to suggest FDG avid neoplastic process.. 4. EXTREMITIES/SKELETON: No evidence of focal uptake to suggest FDG avid neoplastic process.. HEALTH MAINTENANCE: Last mammogram: not discussed at this visit Last colonoscopy: not discussed at this visit ECOG performance status ECOG PERFORMANCE STATUS: 4- Completely disabled. Cannot carry on any selfcare. Totally confined to bed/chair. SUBJECTIVE/INTERVAL HISTORY: Reports continued dermatologic problems of the vulva and groin, was recommended soap from aerologist that she was unable to obtain through insurance. Also has been unable to get an aid to help wash her vulvar area and groin as there are none available. States she was discharged from wound clinic and is having neighbor change dressings on her legs as she is unable to do so. Being followed for depression which she states she has been struggling with recently. States she had previous referral to Plastic Surgery to discuss panniculectomy but her insurance would not cover it. Will be starting Ozempic soon to help with glucose control. Her ECOG performance status is 3 (capable of only limited selfcare, confined to bed or chair more than 50% of waking hours). OBJECTIVE: VITALS: BP 110/72 Pulse 91 Temp (Src) 97.8 (Temporal) Resp 18 SpO2 99% PELVIC: Very large pannus with lymphedema. Vulva normal appearing s/p external radiation. No new lesions identified. ASSESSMENT: 63 year old female with pmh significant for chronic migraine, COPD, poorly controlled Type 2 DM, hydradenitis, obesity, chronic venous stasis lower extremities, largely wheelchair dependent and a former smoker. Presents today for follow up if radiologic stage IB squamous cell carcinoma of the vulva. Due to location of lesion she agreed to pursue primary radiation therapy. Presents f (more content not included)... [facility] 03-16-2023 History of Presen t illness Narrative DATE OF SERVICE: 03/16/2023 REASON FOR VISIT: Surveillance follow up DIAGNOSIS: Vulvar Cancer HPI: 1.Felisha Diallo is a 62 year old female with pmh significant for chronic migraine, COPD, poorly controlled Type 2 DM, hydradenitis, largely wheelchair dependent and a former smoker. Presents today for follow up for her recently diagnosed squamous cell carcinoma. Patient underwent a biopsy of a right vulvar mass on 02/11/22. Initially she presented to the ER with complaints of a right labial abscess or cyst that was present for months until it had opened when wiping and observed a large amount of blood from the area. She saw bacon skinner who referred her to general surgery for a biopsy. Biopsy confirmed invasive SCC. 2. 03/16/22 PET scan with no evidence of metastasis. 3. 04/02/20[address] Rad[address] onc[address] consult with Dr. Garcia. 4. 05/03/2022: start of EBRT - COURSE: definitive AREA TREATED: vulva CURRENT DOSE: 5085 cGy in 29 fx PLANNED DOSE: 5085 cGy in 29 fx Date of last visit: 12/15/22 [facility] Outside path review : 02/12/2022 FINAL DIAGNOSIS Vaginal mass, right, biopsy ([id number], 02/11/2022, A1-A2): -Invasive squamous cell carcinoma, HPV-associated. OBSTETRIC/ GYNECOLOGY HISTORY: Last Pap: 06/2021 NILM and HPV negative Last HPV: 06/2021 PAST MEDICAL HISTORY Diagnosis Date Asthma Bipolar depression (HCC) Chronic kidney disease, stage III (moderate) (HCC) COPD (chronic obstructive pulmonary disease) (HCC) DM (diabetes mellitus), type 2 (HCC) High blood cholesterol Migraines Sleep disorder Recent blood sugars : 190-220 07/2020 - severe bacterial pneumonia resulting in sepsis hospitalized [facility] Renal failure following this admission PAST SURGICAL HISTORY Procedure Laterality Date BOWEL RESECTION HX 2017 Family History Problem Relation Age of Onset Diabetes Mother Heart Failure Mother Emphysema Father Obstructive Sleep Apnea Father Cancer Maternal Grandmother Parkinson s Disease Paternal Grandmother Heart Attack Paternal Grandfather RECENT IMAGIN08/18/2021 Pelvic US Impression: Exam slightly limited by patient body habitus Mildly thickened endometrium for patient's age (7mm) 03/16/2022 PET IMPRESSION: 1. NECK: No FDG avid neoplastic process. No mass, adenopathy, or fluid collection. 2. CHEST: No FDG avid neoplastic process. No mass, adenopathy, or fluid collection. 3. ABDOMEN/PELVIS: No definite abnormal uptake is identified in the vulvar region, likely related to the configuration and size of the patient's known malignancy/lesion. No hypermetabolic lymphadenopathy. 4. EXTREMITIES/SKELETON: No FDG avid osseous process. No destructive/traumatic bony abnormality. 09/24/2022 PET IMPRESSION: 1. HEAD and NECK: No evidence of focal uptake to suggest FDG avid neoplastic process.. 2. CHEST: No evidence of focal uptake to suggest FDG avid neoplastic process.. 3. ABDOMEN/PELVIS: No evidence of focal uptake to suggest FDG avid neoplastic process.. 4. EXTREMITIES/SKELETON: No evidence of focal uptake to suggest FDG avid neoplastic process.. HEALTH MAINTENANCE: Last mammogram: not discussed at this visit Last colonoscopy: not discussed at this visit ECOG performance status ECOG PERFORMANCE STATUS: 4- Completely disabled. Cannot carry on any selfcare. Totally confined to bed/chair. SUBJECTIVE/INTERVAL HISTORY: Patient complains of itching on her vulva. Also stated that there is a foul odor. Sores are present. No bleeding but discharge. No problems with urination or bowel movements . Denies issues with appetite. Has found a new aerologist that she is happy with. Her ECOG performance status is 3 (capable of only limited selfcare, confined to bed or chair more than 50% of waking hours). OBJECTIVE: VITALS: BP 90/64 Pulse 104 Temp (Src) 97.4 (Temporal) Resp 20 SpO2 92% GENERAL: alert, oriented, pleasant, and cooperative. HEENT: Normocephalic, atraumatic, and no lesions. NECK: Supple, no adenopathy; ABDOMEN: Abdomen soft, non-tender, lympadematous panus PELVIC: External vulvar exam reveals erythematous satellite appearing lesions on the right inner thigh and right side of pannus. Vulvar is erythematous, no visible plaques or significant discharge. Vagina normal appearing with thin normal appearing vaginal discharge. LOWER EXTREMITIES: No pitting edema and no skin changes ASSESSMENT: 62 year old female with pmh significant for chronic migraine, COPD, poorly controlled Type 2 DM, hydradenitis, obesity, chronic venous stasis lower extremities, largely wheelchair dependent and a former smoker. 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 Due to location of lesion she agreed to pursue primary radiation therapy. Declined concurrent chemo. Hx vulvar cancer: - S/p EBRT 06/16/[address] Garcia - stopped after 5085Gy due to skin toxicity. - DIANE on exam today 2. Vulvar candidasis: - patient takes fluconazole daily at baseline, I recommended using nystatin powder to assist and if no improvement consider follow up with dermatology as this is mostly involving the skin of her right thigh and pannus. PLAN: follow up in 3 months for surveillance visit or sooner with new or worsening symptoms Mariana Zamora MD Medical Decision Making: Problems: Low: Acute, uncomplicated illness or injury and Stable chronic illness Risk: Moderate: Drug management Medical Decision Making Level: 3 - Low documented in this encounter [facility] 03-16-2023 Note HNO ID: [id number] Author: Mariana Zamora MD Service: ? Author Type: Physician Type: Progress Notes Filed: 03/16/2023 4:39 PM Note Text: DATE OF SERVICE: 03/16/2023 REASON FOR VISIT: Surveillance follow up DIAGNOSIS: Vulvar Cancer HPI: 1Juliann Diallo is a 62 year old female with pmh significant for chronic migraine, COPD, poorly controlled Type 2 DM, hydradenitis, largely wheelchair dependent and a former smoker. Presents today for follow up for her recently diagnosed squamous cell carcinoma. Patient underwent a biopsy of a right vulvar mass on 02/11/22. Initially she presented to the ER with complaints of a right labial abscess or cyst that was present for months until it had opened when wiping and observed a large amount of blood from the area. She saw bacon skinner who referred her to general surgery for a biopsy. Biopsy confirmed invasive SCC. 2. 03/16/22 PET scan with no evidence of metastasis. 3. 04/02/20[address] onc[address] consult with Dr. Garcia. 4. 05/03/2022: start of EBRT - COURSE: definitive AREA TREATED: vulva CURRENT DOSE: 5085 cGy in 29 fx PLANNED DOSE: 5085 cGy in 29 fx Date of last visit: 12/15/22 [facility] Outside path review : 02/12/2022 FINAL DIAGNOSIS Vaginal mass, right, biopsy ([id number], 02/11/2022, A1-A2): -Invasive squamous cell carcinoma, HPV-associated. OBSTETRIC/ GYNECOLOGY HISTORY: Last Pap: 06/2021 NILM and HPV negative Last HPV: 06/2021 PAST MEDICAL HISTORY Diagnosis Date Asthma Bipolar depression (HCC) Chronic kidney disease, stage III (moderate) (HCC) COPD (chronic obstructive pulmonary disease) (HCC) DM (diabetes mellitus), type 2 (HCC) High blood cholesterol Migraines Sleep disorder Recent blood sugars : 190-220 07/2020 - severe bacterial pneumonia resulting in sepsis hospitalized [facility] Renal failure following this admission PAST SURGICAL HISTORY Procedure Laterality Date BOWEL RESECTION HX 2017 Family History Problem Relation Age of Onset Diabetes Mother Heart Failure Mother Emphysema Father Obstructive Sleep Apnea Father Cancer Maternal Grandmother Parkinson?s Disease Paternal Grandmother Heart Attack Paternal Grandfather RECENT IMAGIN08/18/2021 Pelvic US Impression: Exam slightly limited by patient body habitus Mildly thickened endometrium for patient's age (7mm) 03/16/2022 PET IMPRESSION: 1. NECK: No FDG avid neoplastic process. No mass, adenopathy, or fluid collection. 2. CHEST: No FDG avid neoplastic process. No mass, adenopathy, or fluid collection. 3. ABDOMEN/PELVIS: No definite abnormal uptake is identified in the vulvar region, likely related to the configuration and size of the patient's known malignancy/lesion. No hypermetabolic lymphadenopathy. 4. EXTREMITIES/SKELETON: No FDG avid osseous process. No destructive/traumatic bony abnormality. 09/24/2022 PET IMPRESSION: 1. HEAD and NECK: No evidence of focal uptake to suggest FDG avid neoplastic process.. 2. CHEST: No evidence of focal uptake to suggest FDG avid neoplastic process.. 3. ABDOMEN/PELVIS: No evidence of focal uptake to suggest FDG avid neoplastic process.. 4. EXTREMITIES/SKELETON: No evidence of focal uptake to suggest FDG avid neoplastic process.. HEALTH MAINTENANCE: Last mammogram: not discussed at this visit Last colonoscopy: not discussed at this visit ECOG performance status ECOG PERFORMANCE STATUS: 4- Completely disabled. Cannot carry on any selfcare. Totally confined to bed/chair. SUBJECTIVE/INTERVAL HISTORY: Patient complains of itching on her vulva. Also stated that there is a foul odor. Sores are present. No bleeding but discharge. No problems with urination or bowel movements . Denies issues with appetite. Has found a new aerologist that she is happy with. Her ECOG performance status is 3 (capable of only limited selfcare, confined to bed or chair more than 50% of waking hours). OBJECTIVE: VITALS: BP 90/64 Pulse 104 Temp (Src) 97.4 (Temporal) Resp 20 SpO2 92% GENERAL: alert, oriented, pleasant, and cooperative. HEENT: Normocephalic, atraumatic, and no lesions. NECK: Supple, no adenopathy; ABDOMEN: Abdomen soft, non-tender, lympadematous panus PELVIC: External vulvar exam reveals erythematous satellite appearing lesions on the right inner thigh and right side of pannus. Vulvar is erythematous, no visible plaques or significant discharge. Vagina normal appearing with thin normal appearing vaginal discharge. LOWER EXTREMITIES: No pitting edema and no skin changes ASSESSMENT: 62 year old female with pmh significant for chronic migraine, COPD, poorly controlled Type 2 DM, hydradenitis, obesity, chronic venous stasis lower extremities, largely wheelchair dependent and a former smoker. 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 Due to location of lesion she agreed to pursue primary rad (more content not included)... [facility] 01-20-2023 Evaluation note Encounter Date Diagnosis Assessment Notes Dec, Chronic kidney disease, stage III (moderate) (ICD-10 - N18.30) She has CKD due to the longstanding DM and HTN. Her baseline serum creatinine is 1.1-1.3 mg/dL. I discussed with the importance of good DM and HTN control to slow down the progression of CKD. I have advised her to avoid NSAIDs. Her CT scan in September 2020 showed Left nephrolithia sis. No ureteral calculus or obstructive uropathy. Dec, Diabetes mellitus with chronic kidney disease (ICD-10 - E11.22) Blood sugars are above the goal. Continue DM management as per PCP. I explained to her due to the high-dose Bactrim I will not prescribe her SHREYA inhibitor, ARB or Kerendia. 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 She has a lymphedema likely due to the venous stasis. I have advised her to comply with the Lasix due to the risk of recurrent cellulitis due to the blisters. Dec, Secondary hyperparathyroidism (ICD-10 - N25.81) Continue oral ergocalciferol 50,000 unit weekly.Will check PTH, vitamin D calcium and phosphorus. Dec, Dyslipidemia (ICD-10 - E78.5) Continue statins. Monitor lipid profile and LFTs. Dec, Proteinuria (ICD-10 - R80.9) She has a proteinuria likely due to diabetic kidney disease. Identifiable diagnosis is paraproteinemia . I have ordered the work-up to rule it out. [facility] Other 08-16-2023 History of Present illness Narrative* Mariana Zamora MD - 12/15/2022 2:15 PM EDT DATE OF SERVICE: 12/15/2022 REASON FOR VISIT: Surveillance follow up DIAGNOSIS: Vulvar Cancer HPI: 1.Felisha Diallo is a 62 year old female with pmh significant for chronic migraine, COPD, poorly controlled Type 2 DM, hydradenitis, largely wheelchair dependent and a former smoker. Presents today for follow up for her recently diagnosed squamous cell carcinoma. Patient underwent a biopsy of a right vulvar mass on 02/11/22. Initially she presented to the ER with complaints of a right labial abscess or cyst that was present for months until it had opened when wiping and observed a large amount of blood from the area. She saw bacon skinner who referred her to general surgery for a biopsy. Biopsy confirmed invasive SCC. 2. 03/16/22 PET scan with no evidence of metastasis. 3. 04/02/[address] consult with Dr. Garcia. 4. 05/03/2022: start of EBRT - COURSE: definitive AREA TREATED: vulva CURRENT DOSE: 5085 cGy in 29 fx PLANNED DOSE: 5085 cGy in 29 fx Date of last visit: 09/30/22 distance health visit [facility] Outside path review : 02/12/2022 FINAL DIAGNOSIS Vaginal mass, right, biopsy ([id number], 02/11/2022, A1-A2): -Invasive squamous cell carcinoma, HPV-associated. OBSTETRIC/ GYNECOLOGY HISTORY: Last Pap: 06/2021 NILM and HPV negative Last HPV: 06/2021 PAST MEDICAL HISTORY Diagnosis Date Asthma Bipolar depression (HCC) Chronic kidney disease, stage III (moderate) (HCC) COPD (chronic obstructive pulmonary disease) (HCC) DM (diabetes mellitus), type 2 (HCC) High blood cholesterol Migraines Sleep disorder Recent blood sugars : 190-220 07/2020 - severe bacterial pneumonia resulting in sepsis hospitalized [facility] Renal failure following this admission PAST SURGICAL HISTORY Procedure Laterality Date BOWEL RESECTION HX 2016 Family History Problem Relation Age of Onset Diabetes Mother Heart Failure Mother Emphysema Father Obstructive Sleep Apnea Father Cancer Maternal Grandmother Parkinson s Disease Paternal Grandmother Heart Attack Paternal Grandfather RECENT IMAGIN08/18/2021 Pelvic US Impression: Exam slightly limited by patient body habitus Mildly thickened endometrium for patient's age (7mm) 03/16/2022 PET IMPRESSION: 1. NECK: No FDG avid neoplastic process. No mass, adenopathy, or fluid collection. 2. CHEST: No FDG avid neoplastic process. No mass, adenopathy, or fluid collection. 3. ABDOMEN/PELVIS: No definite abnormal uptake is identified in the vulvar region, likely related to the configuration and size of the patient's known malignancy/lesion. No hypermetabolic lymphadenopathy. 4. EXTREMITIES/SKELETON: No FDG avid osseous process. No destructive/traumatic bony abnormality. 09/24/2022 PET IMPRESSION: 1. HEAD and NECK: No evidence of focal uptake to suggest FDG avid neoplastic process.. 2. CHEST: No evidence of focal uptake to suggest FDG avid neoplastic process.. 3. ABDOMEN/PELVIS: No evidence of focal uptake to suggest FDG avid neoplastic process.. 4. EXTREMITIES/SKELETON: No evidence of focal uptake to suggest FDG avid neoplastic process.. HEALTH MAINTENANCE: Last mammogram: not discussed at this visit Last colonoscopy: not discussed at this visit ECOG performance status ECOG PERFORMANCE STATUS: 4- Completely disabled. Cannot carry on any selfcare. Totally confined to bed/chair. SUBJECTIVE/INTERVAL HISTORY: Felisha Diallo has been doing well without complaints. Has seen a new aerologist and coming off of bactrim for HS treatment. Denies vulvar burning, irritation or bleeding. No new complaints today. OBJECTIVE: VITALS: BP 110/74 Pulse 93 Temp (Src) 97.7 (Temporal) Resp 18 SpO2 94% GENERAL: alert, oriented, pleasant, and cooperative. HEENT: Normocephalic, atraumatic, and no lesions. ABDOMEN: Abdomen soft, non-tender, PELVIC: no palpable inguinal adenopathy, External genitalia, anus and urethral meatus are normal inappearance and without lesions. Hydradenitis present. ASSESSMENT: 62 year old female with pmh significant for chronic migraine, COPD, poorly controlled Type 2 DM, hydradenitis, obesity, chronic venous stasis lower extremities, largely wheelchair dependent and a former smoker. Presents today for follow up if suspected stage IB squamous cell carcinoma of the vulva.Due to location of lesion she agreed to pursue primary radiation therapy. Declined concurrent chemo. - S/p EBRT 06/16/[address] Garcia - stopped after 5085Gy due to skin toxicity. Patient DIANE on exam today. No evidence of radiation toxicity. PLAN: DIANE today - follow up in 3 months for surveillance visit Mariana Zamora MD Medical Decision Making: Problems: Low: Stable chronic illness Risk: Minimal: Minimal risk from testing/treatment Medical Decision Making Level: 2 - Straightforward [facility] NoteHNO ID: [id number] Author: Mariana Zamora MD Service: ? Author Type: Physician Type: Progress Notes Filed: 12/15/2022 3:46 PM Note Text: DATE OF SERVICE: 12/15/2022 REASON FOR VISIT: Surveillance follow up DIAGNOSIS: Vulvar Cancer HPI: 1.Felisha Diallo is a 62 year old female with pmh significant for chronic migraine, COPD, poorly controlled Type 2 DM, hydradenitis, largely wheelchair dependent and a former smoker. Presents today for follow up for her recently diagnosed squamous cell carcinoma. Patient underwent a biopsy of a right vulvar mass on 02/11/22. Initially she presented to the ER with complaints of a right labial abscess or cyst that was present for months until it had opened when wiping and observed a large amount of blood from the area. She saw bacon skinner who referred her to general surgery for a biopsy. Biopsy confirmed invasive SCC. 2. 03/16/22 PET scan with no evidence of metastasis. 3. 04/02/2022 Radiation onc[address] consult with Dr. Garcia. 4. 05/03/2022: start of EBRT - COURSE: definitive AREA TREATED: vulva CURRENT DOSE: 5085 cGy in 29 fx PLANNED DOSE: 5085 cGy in 29 fx Date of last visit: 09/30/22 distance health visit [facility] Outside path review : 02/12/2022 FINAL DIAGNOSIS Vaginal mass, right, biopsy ([id number], 02/11/2022, A1-A2): -Invasive squamous cell carcinoma, HPV-associated. OBSTETRIC/ GYNECOLOGY HISTORY: Last Pap: 06/2021 NILM and HPV negative Last HPV: 06/2021 PAST MEDICAL HISTORY Diagnosis Date Asthma Bipolar depression (HCC) Chronic kidney disease, stage III (moderate) (HCC) COPD (chronic obstructive pulmonary disease) (HCC) DM (diabetes mellitus), type 2 (HCC) High blood cholesterol Migraines Sleep disorder Recent blood sugars : 190-220 07/2020 - severe bacterial pneumonia resulting in sepsis hospitalized [facility] Renal failure following this admission PAST SURGICAL HISTORY Procedure Laterality Date BOWEL RESECTION HX 2017 Family History Problem Relation Age of Onset Diabetes Mother Heart Failure Mother Emphysema Father Obstructive Sleep Apnea Father Cancer Maternal Grandmother Parkinson?s Disease Paternal Grandmother Heart Attack Paternal Grandfather RECENT IMAGIN08/18/2021 Pelvic US Impression: Exam slightly limited by patient body habitus Mildly thickened endometrium for patient's age (7mm) 03/16/2022 PET IMPRESSION: 1. NECK: No FDG avid neoplastic process. No mass, adenopathy, or fluid collection. 2. CHEST: No FDG avid neoplastic process. No mass, adenopathy, or fluid collection. 3. ABDOMEN/PELVIS: No definite abnormal uptake is identified in the vulvar region, likely related to the configuration and size of the patient's known malignancy/lesion. No hypermetabolic lymphadenopathy. 4. EXTREMITIES/SKELETON: No FDG avid osseous process. No destructive/traumatic bony abnormality. 09/24/2022 PET IMPRESSION: 1. HEAD and NECK: No evidence of focal uptake to suggest FDG avid neoplastic process.. 2. CHEST: No evidence of focal uptake to suggest FDG avid neoplastic process.. 3. ABDOMEN/PELVIS: No evidence of focal uptake to suggest FDG avid neoplastic process.. 4. EXTREMITIES/SKELETON: No evidence of focal uptake to suggest FDG avid neoplastic process.. HEALTH MAINTENANCE: Last mammogram: not discussed at this visit Last colonoscopy: not discussed at this visit ECOG performance status ECOG PERFORMANCE STATUS: 4- Completely disabled. Cannot carry on any selfcare. Totally confined to bed/chair. SUBJECTIVE/INTERVAL HISTORY: Felisha Diallo has been doing well without complaints. Has seen a new aerologist [facility]. Denies vulvar burning, irritation or bleeding. No new complaints today. OBJECTIVE: VITALS: BP 110/74 Pulse 93 Temp (Src) 97.7 (Temporal) Resp 18 SpO2 94% GENERAL: alert, oriented, pleasant, and cooperative. HEENT: Normocephalic, atraumatic, and no lesions. ABDOMEN: Abdomen soft, non-tender, PELVIC: no palpable inguinal adenopathy, External genitalia, anus and urethral meatus are normal in appearance and without lesions. Hydradenitis present. ASSESSMENT: 62 year old female with pmh significant for chronic migraine, COPD, poorly controlled Type 2 DM, hydradenitis, obesity, chronic venous stasis lower extremities, largely wheelchair dependent and a former smoker. 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 Due to location of lesion she agreed to pursue primary radiation therapy. Declined concurrent chemo. - S/p EBRT 06/16/[address] Garcia - stopped after 5085Gy due to skin toxicity. Patient DIANE on exam today. No evidence of radiation toxicity. PLAN: DIANE today - follow up in 3 months for surveillance visit Mariana Zamora MD Medical Decision Making: Problems: Low: Stable chronic illness Risk: Minimal: Minimal risk from testing/t (more content not included)...[facility]08-03-2023 Evaluation note* Encounter Date Diagnosis Assessment Notes Treatment Notes Treatment Clinical Notes Nov, Secondary hyperparathyroidism (ICD-10 - N25.81) [facility] Other 05-30-2023 NoteHNO ID: [id number] Author: Mariana Zamora MD Service: ? Author Type: Physician Type: Progress Notes Filed: 09/30/2022 8:21 AM Note Text: TELEVISIT PROGRESS NOTE I have communicated my name and active licensure. The patient's identity and physical location were verified at the time of this visit. Either the patient or their legal sales representative aircraft has been informed of the risks and benefits of -- and alternatives to -- treatment through a remote evaluation and consents to proceed with the evaluation remotely. This is a telephone encounter initiated for an established patient, parent or guardian not originating from a related Evaluation AND Management service provided within the previous 7 days nor leading to an Evaluation AND Management service or procedure within the next 24 hours or soonest available appointment. Patient name and birthday verified: Yes Location of patient: Home Duration: 5 min Persons Present: patient DATE OF SERVICE: 09/30/2022 REASON FOR VISIT: Follow up, review PET scan DIAGNOSIS: Vulvar Cancer HPI: 1Juliann Diallo is a 62 year old female with pmh significant for chronic migraine, COPD, poorly controlled Type 2 DM, hydradenitis, largely wheelchair dependent and a former smoker. Presents today for follow up for her recently diagnosed squamous cell carcinoma. Patient underwent a biopsy of a right vulvar mass on 02/11/22. Initially she presented to the ER with complaints of a right labial abscess or cyst that was present for months until it had opened when wiping and observed a large amount of blood from the area. She saw bacon skinner who referred her to general surgery for a biopsy. Biopsy confirmed invasive SCC. 2. 03/16/22 PET scan with no evidence of metastasis. 3. 04/02/20[address] Rad[address] consult with Dr. Garcia. 4. 05/03/2022: start of EBRT - COURSE: definitive AREA TREATED: vulva CURRENT DOSE: 5085 cGy in 29 fx PLANNED DOSE: 5085 cGy in 29 fx Date of last visit: 09/08/2022 [facility] Outside path review : 02/12/2022 FINAL DIAGNOSIS Vaginal mass, right, biopsy ([id number], 02/11/2022, A1-A2): -Invasive squamous cell carcinoma, HPV-associated. OBSTETRIC/ GYNECOLOGY HISTORY: Last Pap: 06/2021 NILM and HPV negative Last HPV: 06/2021 PAST MEDICAL HISTORY Diagnosis Date Asthma Bipolar depression (HCC) Chronic kidney disease, stage III (moderate) (HCC) COPD (chronic obstructive pulmonary disease) (HCC) DM (diabetes mellitus), type 2 (HCC) High blood cholesterol Migraines Sleep disorder Recent blood sugars : 190-220 07/2020 - severe bacterial pneumonia resulting in sepsis hospitalized [facility] Renal failure following this admission PAST SURGICAL HISTORY Procedure Laterality Date BOWEL RESECTION HX 2017 Family History Problem Relation Age of Onset Diabetes Mother Heart Failure Mother Emphysema Father Obstructive Sleep Apnea Father Cancer Maternal Grandmother Parkinson?s Disease Paternal Grandmother Heart Attack Paternal Grandfather RECENT IMAGIN08/18/2021 Pelvic US Impression: Exam slightly limited by patient body habitus Mildly thickened endometrium for patient's age (7mm) 03/16/2022 PET IMPRESSION: 1. NECK: No FDG avid neoplastic process. No mass, adenopathy, or fluid collection. 2. CHEST: No FDG avid neoplastic process. No mass, adenopathy, or fluid collection. 3. ABDOMEN/PELVIS: No definite abnormal uptake is identified in the vulvar region, likely related to the configuration and size of the patient's known malignancy/lesion. No hypermetabolic lymphadenopathy. 4. EXTREMITIES/SKELETON: No FDG avid osseous process. No destructive/traumatic bony abnormality. 09/24/2022 PET IMPRESSION: 1. HEAD and NECK: No evidence of focal uptake to suggest FDG avid neoplastic process.. 2. CHEST: No evidence of focal uptake to suggest FDG avid neoplastic process.. 3. ABDOMEN/PELVIS: No evidence of focal uptake to suggest FDG avid neoplastic process.. 4. EXTREMITIES/SKELETON: No evidence of focal uptake to suggest FDG avid neoplastic process.. HEALTH MAINTENANCE: Last mammogram: not discussed at this visit Last colonoscopy: not discussed at this visit ECOG performance status ECOG PERFORMANCE STATUS: 4- Completely disabled. Cannot carry on any selfcare. Totally confined to bed/chair. SUBJECTIVE HISTORY: Felisha Diallo reports that she feels well. No acute complaints presents today to discuss PET results. OBJECTIVE: Deferred 06/03 telemedicine visit ASSESSMENT: 62 year old female with pmh significant for chronic migraine, COPD, poorly controlled Type 2 DM, hydradenitis, obesity, chronic venous stasis lower extremities, largely wheelchair dependent and a former smoker. 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 Due to location of lesion she agreed to pursue primary radiation therapy in order to avoid clitorectomy. Decline (more content not included)...[id number] History of Present illness Narrative* Mariana Zamora MD - 09/28/2022 3:47 PM EDT TELEVISIT PROGRESS NOTE I have communicated my name and active licensure. The patient's identity and physical location wereverified at the time of this visit. Either the patient or their legal sales representative aircraft has been informed of the risks and benefits of -- and alternatives to -- treatment through a remote evaluation andconsents to proceed with the evaluation remotely. This is a telephone encounter initiated for an established patient, parent or guardian not originating from a related Evaluation & Management service provided within the previous 7 days nor leading to an Evaluation & Management service or procedure within the next 24 hours or soonest available appointment. Patient name and birthday verified: Yes Location of patient: Home Duration: 5 min Persons Present: patient DATE OF SERVICE: 09/30/2022 REASON FOR VISIT: Follow up, review PET scan DIAGNOSIS: Vulvar Cancer HPI: 1Juliann Diallo is a 62 year old female with pmh significant for chronic migraine, COPD, poorly controlled Type 2 DM, hydradenitis, largely wheelchair dependent and a former smoker. Presents today for follow up for her recently diagnosed squamous cell carcinoma. Patient underwent a biopsy of a right vulvar mass on 02/11/22. Initially she presented to the ER with complaints of a right labial abscess or cyst that was present for months until it had opened when wiping and observed a large amount of blood from the area. She saw bacon skinner who referred her to general surgery for a biopsy. Biopsy confirmed invasive SCC. 2. 03/16/22 PET scan with no evidence of metastasis. 3. 04/02/2022 Rad[address] consult with Dr. Garcia. 4. 05/03/2022: start of EBRT - COURSE: definitive AREA TREATED: vulva CURRENT DOSE: 5085 cGy in 29 fx PLANNED DOSE: 5085 cGy in 29 fx Date of last visit: 09/08/2022 [facility] Outside path review : 02/12/2022 FINAL DIAGNOSIS Vaginal mass, right, biopsy ([id number], 02/11/2022, A1-A2): -Invasive squamous cell carcinoma, HPV-associated. OBSTETRIC/ GYNECOLOGY HISTORY: Last Pap: 06/2021 NILM and HPV negative Last HPV: 06/2021 PAST MEDICAL HISTORY Diagnosis Date Asthma Bipolar depression (HCC) Chronic kidney disease, stage III (moderate) (HCC) COPD (chronic obstructive pulmonary disease) (HCC) DM (diabetes mellitus), type 2 (HCC) High blood cholesterol Migraines Sleep disorder Recent blood sugars : 190-220 07/2020 - severe bacterial pneumonia resulting in sepsis hospitalized [facility] Renal failure following this admission PAST SURGICAL HISTORY Procedure Laterality Date BOWEL RESECTION HX 2017 Family History Problem Relation Age of Onset Diabetes Mother Heart Failure Mother Emphysema Father Obstructive Sleep Apnea Father Cancer Maternal Grandmother Parkinson s Disease Paternal Grandmother Heart Attack Paternal Grandfather RECENT IMAGIN08/18/2021 Pelvic US Impression: Exam slightly limited by patient body habitus Mildly thickened endometrium for patient's age (7mm) 03/16/2022 PET IMPRESSION: 1. NECK: No FDG avid neoplastic process. No mass, adenopathy, or fluid collection. 2. CHEST: No FDG avid neoplastic process. No mass, adenopathy, or fluid collection. 3. ABDOMEN/PELVIS: No definite abnormal uptake is identified in the vulvar region, likely related to the configuration and size of the patient's known malignancy/lesion. No hypermetabolic lymphadenopathy. 4. EXTREMITIES/SKELETON: No FDG avid osseous process. No destructive/traumatic bony abnormality. 09/24/2022 PET IMPRESSION: 1. HEAD and NECK: No evidence of focal uptake to suggest FDG avid neoplastic process.. 2. CHEST: No evidence of focal uptake to suggest FDG avid neoplastic process.. 3. ABDOMEN/PELVIS: No evidence of focal uptake to suggest FDG avid neoplastic process.. 4. EXTREMITIES/SKELETON: No evidence of focal uptake to suggest FDG avid neoplastic process.. HEALTH MAINTENANCE: Last mammogram: not discussed at this visit Last colonoscopy: not discussed at this visit ECOG performance status ECOG PERFORMANCE STATUS: 4- Completely disabled. Cannot carry on any selfcare. Totally confined to bed/chair. SUBJECTIVE HISTORY: Felisha Diallo reports that she feels well. No acute complaints presents today to discuss PET results. OBJECTIVE: Deferred 06/03 telemedicine visit ASSESSMENT: 62 year old female with pmh significant for chronic migraine, COPD, poorly controlled Type 2 DM, hydradenitis, obesity, chronic venous stasis lower extremities, largely wheelchair dependent and a former smoker. Presents today for follow up if suspected stage IB squamous cell carcinoma of the vulva.Due to location of lesion she agreed to pursue primary radiation therapy in order to avoid clitorectomy. Declined concurrent chemo. Now S/p EBRT 06/16/[address] Garcia - stopped after 5085Gy due to skin toxicity. At last visit Patient DIANE on exam today with apparent complete response to radiation. PET reviewed today with no evidence of disease. Discussed plan to continue with q3m surveillance visits. PLAN: Follow up as scheduled for surveillance visit Mariana Zamora MD documented [facility] encounterOhio[facility] History of Present illness Narrative* Mariana Zamora MD - 09/08/2022 3:00 PM EDT DATE OF SERVICE: 09/08/2022 REASON FOR VISIT: Vulvar Cancer 2 month follow up, follow up RT DIAGNOSIS: Vulvar Cancer HPI: 1.Felisha Diallo is a 61 year old female with pmh significant for chronic migraine, COPD, poorly controlled Type 2 DM, hydradenitis, largely wheelchair dependent and a former smoker. Presents today for follow up for her recently diagnosed squamous cell carcinoma. Patient underwent a biopsy of a right vulvar mass on 02/11/22. Initially she presented to the ER with complaints of a right labial abscess or cyst that was present for months until it had opened when wiping and observed a large amount of blood from the area. She saw bacon skinner who referred her to general surgery for a biopsy. Biopsy confirmed invasive SCC. 2. 03/16/22 PET scan with no evidence of metastasis. 3. 04/02/2022 Rad[address] onc[address] consult with Dr. Garcia. 4. 05/03/2022: start of EBRT - COURSE: definitive AREA TREATED: vulva CURRENT DOSE: 5085 cGy in 29 fx PLANNED DOSE: 5085 cGy in 29 fx Date of last visit: 05/12/2022- - return to care following RT to evaluate need for salvage resectionof residual disease in the early post-RT period. [facility] Outside path review : 02/12/2022 FINAL DIAGNOSIS Vaginal mass, right, biopsy ([id number], 02/11/2022, A1-A2): -Invasive squamous cell carcinoma, HPV-associated. OBSTETRIC/ GYNECOLOGY HISTORY: Last Pap: 06/2021 NILM and HPV negative Last HPV: 06/2021 PAST MEDICAL HISTORY Diagnosis Date Asthma Bipolar depression (HCC) Chronic kidney disease, stage III (moderate) (HCC) COPD (chronic obstructive pulmonary disease) (HCC) DM (diabetes mellitus), type 2 (HCC) High blood cholesterol Migraines Sleep disorder Recent blood sugars : 190-220 07/2020 - severe bacterial pneumonia resulting in sepsis hospitalized [facility] Renal failure following this admission PAST SURGICAL HISTORY Procedure Laterality Date BOWEL RESECTION HX 2016 Family History Problem Relation Age of Onset Diabetes Mother Heart Failure Mother Emphysema Father Obstructive Sleep Apnea Father Cancer Maternal Grandmother Parkinson s Disease Paternal Grandmother Heart Attack Paternal Grandfather RECENT IMAGIN08/18/2021 Pelvic US Impression: Exam slightly limited by patient body habitus Mildly thickened endometrium for patient's age (7mm) 03/16/2022 PET IMPRESSION: 1. NECK: No FDG avid neoplastic process. No mass, adenopathy, or fluid collection. 2. CHEST: No FDG avid neoplastic process. No mass, adenopathy, or fluid collection. 3. ABDOMEN/PELVIS: No definite abnormal uptake is identified in the vulvar region, likely related to the configuration and size of the patient's known malignancy/lesion. No hypermetabolic lymphadenopathy. 4. EXTREMITIES/SKELETON: No FDG avid osseous process. No destructive/traumatic bony abnormality. HEALTH MAINTENANCE: Last mammogram: not discussed at this visit Last colonoscopy: not discussed at this visit ECOG performance status ECOG PERFORMANCE STATUS: 4- Completely disabled. Cannot carry on any selfcare. Totally confined to bed/chair. SUBJECTIVE/INTERVAL HISTORY: Felisha Diallo reports that she has been having issues with vulvar boils related to her hydradenitis. She is having pain in this area and is currently on antibiotics from recent ED visit where this boil opened up. She denies fevers. OBJECTIVE: VITALS: BP 110/54 Pulse 100 Temp (Src) 97.9 (Temporal) Resp 20 Ht 5' 5.197 (1.66m) Wt 340 lb (154.2kg) SpO2 96% BMI 56.24 kg/(m^2). GENERAL: alert, oriented, pleasant, and cooperative. HEENT: Normocephalic, atraumatic, and no lesions. ABDOMEN: Abdomen soft, non-tender, obese PELVIC: Mons with significant lymphedema similar to baseline however more erythemic. A ~2cm area superficially open but no longer draining at site where patient reports her boil opened. Right vulvar area at site of prior tumor is smooth and normal appearing without signs if persistent cancer. Skin is otherwise without evidence of sloughing or residual short term radiation toxicity. LOWER EXTREMITIES: No pitting edema and no skin changes ASSESSMENT: 62 year old female with pmh significant for chronic migraine, COPD, poorly controlled Type 2 DM, hydradenitis, Body mass index is 56.24 kg/m .,chronic venous stasis lower extremities, largely wheelchair dependent and a former smoker. Presents today for follow up if suspected stage IB squamous cell c arcinoma of the vulva. Due to location of lesion she agreed to pursue primary radiation therapy in order to avoid clitorectomy. Declined concurrent chemo. Now S/p EBRT 06/16/[address] Garcia - stopped after 5085Gy due to skin toxicity. Patient DIANE on exam today with apparent complete response to radiation. Discussed recommendation for repeat PET scan given groins were negative on pre treatment PET and left untreated w/RT melissa. She has what appears to be cellulitis related to hydradenitis and is currently on oral antibiotic regimen. I encouraged follow up with her PCP and dermatology who she follows for management of hydradenitis. I also instructed her to return to the ED for worsening symptoms or increased pain in this area - no signs of deep or soft tissue infection on exam today. PLAN: PET ordered Follow up after PET to review results Continue 3 month surveillance visits Mariana Zamora MD Medical Decision Making: Problems: Moderate: 1+ chronic illnesses with change Data: Unique test(s) ordered: 1 Risk: Low: Low risk from testing/treatment Medical Decision Making Level: 3 - Low documented in this encounterOhiohealth [facility]03-21-2023 Evaluation note* Encounter Date Diagnosis Assessment Notes Treatment Notes Treatment Clinical Notes Jun, Chronic kidney disea se, stage III (moderate) (ICD-10 - N18.30) She has CKD due to the longstanding DM and HTN. Her baseline serum creatinine is 1.1-1.3 mg/dL. I discussed with the importance of good DM and HTN control to slow down the progression of CKD. I have advised her to avoid NSAIDs. Jun, Diabetes mellitus wi th chronic kidney disease (ICD-10 - E11.22) Blood sugars are above the goal. Continue DM management as per PCP. I explained to her due to the high-dose Bactrim I will not prescribe her SHREYA inhibitor, ARB or Kerendia. 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 She has a lymphedema likely due to the venous stasis. I have advised her to comply with the Lasix due to the risk of recurrent cellulitis due to the blisters. Jun, Secondary hyperparathyroidism (ICD-10 - N25.81) She has a low vitamin D but her calcium phosphorus PTH are within the goal. Continue oral ergocalciferol 50,000 unit weekly. [facility] Other [id number] History of Present illness Narrative* Mariana Zamora MD - 07/07/2022 1:00 PM EST DATE OF SERVICE: 07/07/2022 REASON FOR VISIT: Vulvar Cancer follow up, follow up RT DIAGNOSIS: Vulvar Cancer HPI: 1.Felisha Diallo is a 61 year old female with pmh significant for chronic migraine, COPD, poorly controlled Type 2 DM, hydradenitis, largely wheelchair dependent and a former smoker. Presents today for follow up for her recently diagnosed squamous cell carcinoma. Patient underwent a biopsy of a right vulvar mass on 02/11/22. Initially she presented to the ER with complaints of a right labial abscess or cyst that was present for months until it had opened when wiping and observed a large amount of blood from the area. She saw bacon skinner who referred her to general surgery for a biopsy. Biopsy confirmed invasive SCC. 2. 03/16/22 PET scan with no evidence of metastasis. 3. 04/02/[address] consult with Dr. Garcia. 4. 05/03/2022: start of EBRT - COURSE: definitive AREA TREATED: vulva CURRENT DOSE: 5085 cGy in 29 fx PLANNED DOSE: 5085 cGy in 29 fx Date of last visit: 05/12/2022- - return to care following RT to evaluate need for salvage resectionof residual disease in the early post-RT period. [facility] Outside path review : 02/12/2022 FINAL DIAGNOSIS Vaginal mass, right, biopsy (S [id number], 02/11/2022, A1-A2): -Invasive squamous cell carcinoma, HPV-associated. OBSTETRIC/ GYNECOLOGY HISTORY: Last Pap: 06/2021 NILM and HPV negative Last HPV: 06/2021 PAST MEDICAL HISTORY Diagnosis Date Asthma Bipolar depression (HCC) Chronic kidney disease, stage III (moderate) (HCC) COPD (chronic obstructive pulmonary disease) (HCC) DM (diabetes mellitus), type 2 (HCC) High blood cholesterol Migraines Sleep disorder Recent blood sugars : 190-220 07/2020 - severe bacterial pneumonia resulting in sepsis hospitalized [facility] Renal failure following this admission PAST SURGICAL HISTORY Procedure Laterality Date BOWEL RESECTION HX 2017 Family History Problem Relation Age of Onset Diabetes Mother Heart Failure Mother Emphysema Father Obstructive Sleep Apnea Father Cancer Maternal Grandmother Parkinson s Disease Paternal Grandmother Heart Attack Paternal Grandfather RECENT IMAGIN08/18/2021 Pelvic US Impression: Exam slightly limited by patient body habitus Mildly thickened endometrium for patient's age (7mm) 03/16/2022 PET IMPRESSION: 1. NECK: No FDG avid neoplastic process. No mass, adenopathy, or fluid collection. 2. CHEST: No FDG avid neoplastic process. No mass, adenopathy, or fluid collection. 3. ABDOMEN/PELVIS: No definite abnormal uptake is identified in the vulvar region, likely related to the configuration and size of the patient's known malignancy/lesion. No hypermetabolic lymphadenopathy. 4. EXTREMITIES/SKELETON: No FDG avid osseous process. No destructive/traumatic bony abnormality. HEALTH MAINTENANCE: Last mammogram: not discussed at this visit Last colonoscopy: not discussed at this visit ECOG performance status ECOG PERFORMANCE STATUS: 4- Completely disabled. Cannot carry on any selfcare. Totally confined to bed/chair. SUBJECTIVE/INTERVAL HISTORY: Felisha Diallo has been doing well since completion of radiation on 06/16. She states that she had a lot of skin breakdown after radiation but this is impoving a lot over the past two weeks. Pain is well controlled, notes some intermittent bleeding of the area that was treated. Using lidocaine spray and antifungal cream to manage symptoms. Overall doing well. OBJECTIVE: VITALS: BP 132/67 Pulse 103 Temp (Src) 97.1 (Temporal) Resp 18 Ht 5' 5.197 (1.66m) Wt 352 lb 3.2 oz (159.8kg) SpO2 93% BMI 58.26 kg/(m^2). PELVIC: Prior tumor area on right medial vulva has had a good treatment response s/p RT, small firmarea at the center of the treated leasion ~1cm in size. LOWER EXTREMITIES: + edema, leg wraps in place ASSESSMENT: 62 year old female with pmh significant for chronic migraine, COPD, poorly controlled Type 2 DM, hydradenitis, Body mass index is 58.26 kg/m .,chronic venous stasis lower extremities, largely wheelchair dependent and a former smoker. Presents today for follow up if suspected stage IB squamous cell c arcinoma of the vulva. Due to location of lesion she agreed to pursue primary radiation therapy in order to avoid clitorectomy. Declined concurrent chemo. Now S/p EBRT 06/16/[address] Garcia - stopped after 5085Gy due to skin toxicity. Presents today for post treatment visit. Examined and discussed patient today with Dr. Garcia. Exam today showing great treatment response, will await for full treatment effects from RT to determine if there is any additional salvage surgical resection needed. PLAN: Follow up 2 months for exam to confirm complete response to treatment Discuss PET scan at next visit which will be planned 3 months from completion of RT Mariana Zamora MD Medical Decision Making: Problems: High: Illness/injury w/ threat to life/body function Data: Discussed management or test w/ external physician/QHCP/source Risk: Minimal: Minimal risk from testing/treatment Medical Decision Making Level: 4 - Moderate documented in this encounterOhiohealth [facility]02-24-2023 Miscellaneous Notes* Telephone Encounter - Sanjana Olivas LPN - 06/25/2022 12:11 PM EST Orders faxed to [facility] at [phone]. Sanjana Olivas LPN * Telephone Encounter - Sanjana Olivas LPN - 06/25/2022 12:02 PM EST I notified Felisha that Dr. Garcia is ordering a UA, C+S. She doesn't want to give a sample at this time stating she's pretty sure it's not a UTI. I will fax the order to [facility] so they have the order should she change her mind and/or symptoms worsen or don't improve. Sanjana Olivas LPN * Telephone Encounter - Sanjana Olivas LPN - 06/25/2022 11:38 AM EST I called to get an update regarding radiation therapy related symptoms since completing treatment. She denies diarrhea. She states her skin irritation/reaction in the vaginal is improving. She continues to use witch pillo and silvadene cream in the vaginal area. Her home health nurse was there and said the vaginal area is healing well. Felisha states she has occasional burning with urination but feels that it is urine hitting the irritated vaginal skin. She said the burning sensation is intermittent. She states her urine is cloudy at times but is wondering if it due to the Silvadene cream. She said she drinks about 2-16 oz bottles of water daily and then will drink 1-2-16 oz bottles of juice.We discussed increasing her fluids and she was in agreement. She states I'm better everyday . She denies questions or concerns at this time. I reminded her of the appt with Dr. Zamora on 07/07/22 at1:00. She will call the office with questions or concerns. Dr. Garcia do you want to order a UA, C+S at this time? Sanjana Olivas LPN documented in this encounterOhiohealth [facility]02-15-2023 History of Present illness Narrative* Kennedy Garcia MD - 06/16/2022 11:20 PM EST Radiation Oncology - On Treatment Review (OTR) Note PATIENT NAME: Felisha Diallo PATIENT Kennedy Garcia MD documented in this encounterOhiohealth Pickering[facility]02-15-2023 Nurse Note* Sanjana Olivas LPN - 06/16/2022 12:33 PM EST Status: Post-menopausal. documented in this encounterOhiohealth Pickering[facility]02-15-2023 History of Present illness Narrative* Kennedy Garcia MD - 06/16/2022 12:00 AM EST [facility] Radiation Oncology Department RADIATION ONCOLOGY - COMPLETION NOTE PATIENT: ILDEFONSO DIALLO: 1960 DATES OF TREATMENT: 05/04/22 - 06/16/22 DIAGNOSIS: Ms. 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 Ortiz and staging work-up with PET/CT on 03/16/[address] Zamora showing no evidence of regional or distant metastatic disease. Lesion was described by Dr. Zamora as '4 cm raised lesion on right labia majora within 2cm ofmidline. No involvement of vagina, urethra or anus'. Based on her medical comorbidities and body habitus, she is considered moderate/high risk for surgical resection and referred for radiation therapy. AREA TREATED: Vulva DELIVERED DOSE: Area: Vulva 5085 cGy in 29 fractions, 4 Arcs/VMAT, 10MV with daily CBCT guidance TOTAL: 5,085 cGy in 29 fractions of a planned 6,480 cGy in 36 fractions ELAPSED TIME: 43 days. CLINICAL SUMMARY: The patient began experiencing dermatitis in the radiated area early in the course of treatment with subsequent moist desquamation and pain managed with topical agents including barrier creams and silvadene as well as tramadol. Skin toxicity was further compounded by limited ability to care for herself in the affected area. Reviewed the treatment course with Dr. Zamora and agreed to hold treatment after 5,085 cGy with consideration of local excision afterwards given the response to therapy. Treatment response will be further assessed by Sera in clinic in approximately 2-3 weeks and will evaluated for post-radiation follow-up in approximately 1-2 weeks. Staff Physician Kennedy Garcia M.D. / KISHA 34:06 AM Electronically Signed cc: Mariana Zamora MD ([facility]) Sarah Valentino MD [address] [place] [address] Via documented in this encounterOhiohealth Pickering[facility]02-09-2023 Miscellaneous Notes* Telephone Encounter - Inga Dalton RN - 06/10/2022 8:53 AM EST Call placed to Riya at [facility]. Orders given for vaginal wound care as directed per order. Inga Dalton RN * Telephone Encounter - Inga Dalton RN - 06/09/2022 1:[address] Garcia- please sign pended orders and we will contact [facility] to arrange for them toadd this to her wound care once she completes radiation. Thank you Inga Dalton RN documented in this encounterOhiohealth Pickering[facility]02-08-2023 History of Present illness Narrative* Kennedy Garcia MD - 06/09/2022 11:31 PM EST Radiation Oncology - On Treatment Review (OTR) Note PATIENT NAME: Felisha Diallo PATIENT Kennedy Garcia MD documented in this encounterOhiohealth [facility]ering[facility]02-08-2023 Miscellaneous Notes* Telephone Encounter - TEA Barrett - 06/09/2022 2:32 PM EST [facility] Date of service:06/09/22 TOPICS ADDRESSED: transportation. PLAN: Continue follow up as needed Assigned SW listed in Care Team tab: Yes SW received a call from [facility] stating that this Patient will be ending her radiation treatments on 06/16/22 barring that she does not miss any appointment in between and the , ONEIDA called Amirah at [facility] regarding the above Amirah will contact [employer] to cancel all rides after 06/26/22. SW also notified [facility] that there services are no longer needed. SW will remain available and will follow up as appropriate. CADY Barrett documented in this encounterOhiohealth Pickering[facility]02-08-2023 Nurse Note* Inga Dalton RN - 06/09/2022 12:28 PM EST Status: Post-menopausal. Inga Dalton RN documented in this encounterOhiohealth [facility]02-03-2023 Miscellaneous Notes* Telephone Encounter - TEA Barrett - 06/04/2022 1:10 PM EST [facility] Date of service:06/04/22 Felisha Diallo is being seen for a follow up social work visit. Today's visit includes: patient TOPICS ADDRESSED: community resources and transportation PLAN: Continue follow up as needed Assigned SW listed in Care Team tab: Yes SW received a call from Amirah at [facility] stating that they will pay for the Patient's transportation on 06/17/22 since there was date in May that the Patient did not take a ride. SW called Patient to review her updated radiation treatment schedule. Patient's last day of treatment is 06/28/22. Patient is not having treatments on 06/04 and 06/11 in effort to allow her body/skin to heal. [facility] will not cover the rides on 06/22, 06/23 and 06/24. Patient will have her son bringher in on her Tuesday treatments and Patient will call her insurance provider to cover the Tuesday treatment days. Patient is agreeable to this plan. SW will remain available and will follow up as appropriate. CADY Barrett documented in this encounterOhiohealth [facility]01-30-2023 History of Present illness Narrative* Kennedy Garcia MD - 05/31/2022 11:44 PM EST Radiation Oncology - On Treatment Review (OTR) Note PATIENT NAME: Felisha Diallo PATIENT Kennedy Garcia MD documented in this encounterOhiohealth [facility]ering[facility]01-30-2023 Nurse Note* Inga Dalton RN - 05/31/2022 1:04 PM EST Status: Post-menopausal. Inga Dalton RN documented in this encounterOhiohealth [facility]ering[facility]01-30-2023 History of Present illness Narrative* TEA Barrett - 05/31/2022 10:47 AM EST SOCIAL WORK FOLLOW UP NOTE: [facility] Date of service:05/31/22 TOPICS ADDRESSED: finances, community resources, and transportation PLAN: Assist with financial support applications, Continue follow up as needed , and Referral to community resource Assigned SW listed in Care Team tab: Yes [facility] agreed to cover the cost of the 4 remaining rides to complete the Patient's radiation treatments (06/17, 06/22, 06/23 and 2/23). SW emailed [employer] who has providing rides for this Patient on Tuesdays, Wednesdays and and they will book the above listed dates for rides. [employer] is charging $90 round trip. [facility] is aware and agreeable. [employer] willbill [facility] directly at the end of the month. SW submitted a letter to [facility] with the above request. SW will remain available and will follow up as appropriate. CADY Barrett documented in this encounterOhiohealth [facility]01-25-2023 Miscellaneous Notes* Telephone Encounter - Inga Dalton RN - 05/26/2022 9:20 AM EST Patient called and cancelled XRT today. She states she is just in too much pain and wants to take atramadol and rest today. She is unable to take the tramadol and also come in as she feels it makes her more unsteady. She is using tylenol as well as silver sulfadene and waiting on the lidocaine cream from [facility]. She will plan to be in for treatment tomorrow. Inga Dalton RN documented in this encounterOhiohealth [facility]01-24-2023 Miscellaneous Notes* Telephone Encounter - TEA Barrett - 05/25/2022 10:43 AM EST SOCIAL WORK FOLLOW UP NOTE: [facility] Date of service:05/25/22 TOPICS ADDRESSED: community resources and transportation PLAN: Continue follow up as needed and Referral to community resource Assigned SW listed in Care Team tab: Yes SW called [employer] and left a VM. Patient has 3 upcoming radiation treatments that a ride is not secured nor paid for (06/17, 06/22 and 06/23). SW called [employer] who is currently providing this Patient with rides on Tuesdays, Wednesdays and . ONEIDA is going to see ifD & D can cover the 3 dates listed above and will ask for an estimated charge. SW will talk with [facility] about financial assistance once the amount for the 3 rides is known. Awaiting acall back from [employer]. CADY Barrett documented in this encounterOhiohealth [facility]01-23-2023 Miscellaneous Notes* Telephone Encounter - Lilly Warner RPh - 05/24/2022 12:51 PM EST Have to send to a compounding pharmacy.m Spoke to Felisha already about sending to [facility]. Neil Warner rPh documented in this encounterOhiohealth [facility]01-17-2023 History of Present illness Narrative* Kennedy Garcia MD - 05/18/2022 11:57 PM EST Radiation Oncology - On Treatment Review (OTR) Note PATIENT NAME: Felisha Diallo PATIENT DIAGNOSIS: Ms. 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 Ortiz and staging work-up with PET/CT on 03/16/[address] Zamora showing no evidence of regional or distant metastatic disease. Lesion was described by Dr. Zamora as '4cm raised lesion on right labia majora within 2cm of midline. No involvement of vagina, urethra or anus'. Based on her medical comorbidities and body habitus, she is considered high risk for surgical resection and poor recovery/wound healing and proceeds to radiation therapy. COURSE: definitive AREA TREATED: vulva CURRENT DOSE: 1980 cGy in 11 fx PLANNED DOSE: 6480 cGy in 36 fx SUBJECTIVE: Notes continuing irritation in the vulvar area. She denies nausea or issues with urination and reports improvement in her constipation with stool softeners. She notes difficulty with regular skin care due to inability to access the area well. PHYSICAL EXAM: KPS: 70 General Appearance: Alert and oriented. No acute distress. Radiation dermatitis: Mild Abdomen: Soft. Pelvic exam: Erythema and skin breakdown in the vulva. IMAGING/LAB RESULTS: None TOXICITY ASSESSMENT (CTC v4.0): Fatigue: grade 1 - Fatigue relieved by rest Nausea: Grade 0 - No Symptoms Diarrhea: grade 0 - No symptoms Urinary frequency: grade 0 - No symptoms Dysuria: grade 0 - No symptoms Radiation Dermatitis: grade 1 - Faint erythema or dry desquamation Treatment chart checked: Yes Patient treatment site reviewed and verified:Yes Port films reviewed and current:Yes Medications started: None ASSESSMENT/PLAN: Clinically stable. Toxicity within expected parameters. Continue radiation treatment as planned. Kennedy Garcia MD documented in this encounterOhiohealth [facility]01-17-2023 Nurse Note* Sanjana Olivas LPN - 05/18/2022 12:29 PM EST Status: Post-menopausal. documented in this encounterOhiohealth [facility]01-11-2023 History of Present illness Narrative* Kennedy Garcia MD - 05/12/2022 11:21 PM EST Radiation Oncology - On Treatment Review (OTR) Note PATIENT NAME: Felisha Diallo PATIENT DIAGNOSIS: Ms. 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 Ortiz and staging work-up with PET/CT on 03/16/[address] Zamora showing no evidence of regional or distant metastatic disease. Lesion was described by Dr. Zamora as '4cm raised lesion on right labia majora within 2cm of midline. No involvement of vagina, urethra or anus'. Based on her medical comorbidities and body habitus, she is considered high risk for surgical resection and poor recovery/wound healing and proceeds to radiation therapy. COURSE: definitive AREA TREATED: vulva CURRENT DOSE: 1260 cGy in 7 fx PLANNED DOSE: 6480 cGy in 36 fx SUBJECTIVE: Tolerating XRT well but does note pain/discomfort in the vulvar and perianal area with irritation of her hemorrhoids aggravated by constipation. She is applying moisturizer as well as witch pillo to the area and notes mild bleeding. She denies any issues with urination and does note fatigue. PHYSICAL EXAM: KPS: 70 General Appearance: Alert and oriented. No acute distress. Radiation dermatitis: Mild Abdomen: Soft. Pelvic exam: Erythema and skin irritation in the bilateral vulva. IMAGING/LAB RESULTS: None TOXICITY ASSESSMENT (CTC v4.0): Fatigue: grade 1 - Fatigue relieved by rest Nausea: Grade 0 - No Symptoms Diarrhea: grade 0 - No symptoms Urinary frequency: grade 0 - No symptoms Dysuria: grade 0 - No symptoms Radiation Dermatitis: grade 1 - Faint erythema or dry desquamation Treatment chart checked: Yes Patient treatment site reviewed and verified:Yes Port films reviewed and current:Yes Medications started: None ASSESSMENT/PLAN: Clinically stable. Toxicity within expected parameters. Continue radiation treatment as planned. Kennedy Garcia MD documented in this encounterOhiohealth [facility]ering[facility]01-11-2023 History of Present illness Narrative* Mariana Zamora MD - 05/12/2022 2:00 PM EST DATE OF SERVICE: 05/12/2022 REASON FOR VISIT: Vulvar Cancer follow up DIAGNOSIS: Vulvar Cancer HPI: 1.Felisha Diallo is a 61 year old female with pmh significant for chronic migraine, COPD, poorly controlled Type 2 DM, hydradenitis, largely wheelchair dependent and a former smoker. Presents today for follow up for her recently diagnosed squamous cell carcinoma. Patient underwent a biopsy of a right vulvar mass on 02/11/22. Initially she presented to the ER with complaints of a right labial abscess or cyst that was present for months until it had opened when wiping and observed a large amount of blood from the area. She saw [facility] skin[facility] who referred her to general surgery for a biopsy. Biopsy confirmed invasive SCC. 2. 03/16/22 PET scan with no evidence of metastasis. 3. 04/02/[address] Dr. Garcia. 4. 05/03/2022 : start of EBRT - Date of last visit: 04/14/2022 [facility] Outside path review : 02/12/2022 FINAL DIAGNOSIS Vaginal mass, right, biopsy ([id number], 02/11/2022, A1-A2): -Invasive squamous cell carcinoma, HPV-associated. OBSTETRIC/ GYNECOLOGY HISTORY: Last Pap: 06/2021 NILM and HPV negative Last HPV: 06/2021 PAST MEDICAL HISTORY Diagnosis Date Asthma Bipolar depression (HCC) Chronic kidney disease, stage III (moderate) (HCC) COPD (chronic obstructive pulmonary disease) (HCC) DM (diabetes mellitus), type 2 (HCC) High blood cholesterol Migraines Sleep disorder Recent blood sugars : 190-220 07/2020 - severe bacterial pneumonia resulting in sepsis hospitalized [facility] Renal failure following this admission PAST SURGICAL HISTORY Procedure Laterality Date BOWEL RESECTION HX 2017 Family History Problem Relation Age of Onset Diabetes Mother Heart Failure Mother Emphysema Father Obstructive Sleep Apnea Father Cancer Maternal Grandmother Parkinson s Disease Paternal Grandmother Heart Attack Paternal Grandfather RECENT IMAGIN08/18/2021 Pelvic US Impression: Exam slightly limited by patient body habitus Mildly thickened endometrium for patient's age (7mm) 03/16/2022 PET IMPRESSION: 1. NECK: No FDG avid neoplastic process. No mass, adenopathy, or fluid collection. 2. CHEST: No FDG avid neoplastic process. No mass, adenopathy, or fluid collection. 3. ABDOMEN/PELVIS: No definite abnormal uptake is identified in the vulvar region, likely related to the configuration and size of the patient's known malignancy/lesion. No hypermetabolic lymphadenopathy. 4. EXTREMITIES/SKELETON: No FDG avid osseous process. No destructive/traumatic bony abnormality. HEALTH MAINTENANCE: Last mammogram: not discussed at this visit Last colonoscopy: not discussed at this visit ECOG performance status ECOG PERFORMANCE STATUS: 4- Completely disabled. Cannot carry on any selfcare. Totally confined to bed/chair. SUBJECTIVE/INTERVAL HISTORY: Felisha Diallo is about 1.5 weeks into radiation and doing well. Reports using aquaphor to prevent skin changes. States she has been constipated. Has worked out transportation to visits between assistance and family. Her ECOG performance status is 3 (capable of only limited selfcare, confined to bed or chair more than 50% of waking hours). OBJECTIVE: VITALS: BP 150/83 Pulse 114 Temp (Src) 97.5 (Temporal) Resp 18 Ht 5' 5.197 (1.66m) Wt 359 lb (162.8kg) SpO2 91% BMI 59.38 kg/(m^2). GENERAL: alert, oriented, pleasant, and cooperative. HEENT: Normocephalic, atraumatic, and no lesions. ASSESSMENT: 61 year old female with pmh significant for chronic migraine, COPD, poorly controlled Type 2 DM, hydradenitis, chronic venous stasis lower extremities, largely wheelchair dependent and a former smoker. 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 Due to location of lesion she agreed to pursue primary radiation therapy in order to avoid clitorectomy. PETwas negative for justice spread. After discussion of risks and benefits - given her multiple comorbidities, poor functional status and poorly controlled diabetes we elected to forgo inguinal lymph nodesampling. Dr. Garcia is managing EBRT. We discussed concurrent cisplatin and patient declined. Presents today for follow up while undergoing EBRT. Tolerating well without issues at this time. Wediscussed some social issues that she is dealing with but overall she is doing well. She has obtained reliable transportation to her RT visits. Miralax sent to pharmacy for constipation. PLAN: - return to care following completion of RT to evaluate need for salvage resection of residual disease in the early post-RT period. Mariana Zamora MD Medical Decision Making: Problems: High: Illness/injury w/ threat to life/body function Risk: Moderate: Drug management Medical Decision Making Level: 4 - Moderate documented in this encounterOhiohealth [facility]ering[facility]01-06-2023 Miscellaneous Notes* Telephone Encounter - TEA Barrett - 05/07/2022 10:23 AM EST SOCIAL WORK FOLLOW UP NOTE: [facility] Date of service:05/07/22 Felisha Diallo is being seen for a follow up social work visit. Today's visit includes: patient TOPICS ADDRESSED: community resources and transportation PLAN: Continue follow up as needed Assigned ONEIDA listed in Care Team tab: Yes ONEIDA heard back from Amirah at [facility]. [employer] will extend their wait time for this Patient to 60 minutes and they will accommodate the new arrival time 05/12/22 of 2pm. SW will contact Patient confirm that she is aware of the above. ONEIDA called and confirmed with this Patient that she is aware of her appointment time on 05/12/22. Patient was appreciative of the call. SW will remain available and will follow up as appropriate. CADY Barrett documented in this encounterOhiohealth Pickering[facility]01-05-2023 History of Present illness Narrative* Kennedy Garcia MD - 05/06/2022 6:40 PM EST Radiation Oncology - On Treatment Review (OTR) Note PATIENT NAME: Felisha Diallo PATIENT DIAGNOSIS: Ms. 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 Ortiz and staging work-up with PET/CT on 03/16/[address] Zamora showing no evidence of regional or distant metastatic disease. Lesion was described by Dr. Zamora as '4cm raised lesion on right labia majora within 2cm of midline. No involvement of vagina, urethra or anus'. Based on her medical comorbidities and body habitus, she is considered high risk for surgical resection and poor recovery/wound healing and proceeds to radiation therapy. COURSE: definitive AREA TREATED: vulva CURRENT DOSE: 540 cGy in 3 fx PLANNED DOSE: 6480 cGy in 36 fx SUBJECTIVE: Tolerating first week of XRT well and notes some stinging in the treatment area but denies any vaginal bleeding or discharge. She does note constipation and irritation of her hemorrhoids. EXAM: KPS: 70 General Appearance: Alert and oriented. No acute distress. Radiation dermatitis: No IMAGING/LAB RESULTS: None Treatment chart checked: Yes Patient treatment site reviewed and verified:Yes Port films reviewed and current:Yes Medications started: None ASSESSMENT/PLAN: Clinically stable. No signs of toxicity. Continue radiation treatment as planned. Kennedy Garcia MD documented in this encounterOhiohealth Pickering[facility]12-29-2022 Miscellaneous Notes* Telephone Encounter - TEA Barertt - 04/29/2022 4:21 PM EST SOCIAL WORK FOLLOW UP NOTE: [facility] Date of service:04/29/22 Felisha Diallo is being seen for a follow up social work visit. Today's visit includes: patient TOPICS ADDRESSED: transportation PLAN: Continue follow up as needed Assigned ONEIDA listed in Care Team tab: Yes Patient called in to review her upcoming appointment dates/times and to confirm her transportation arrangements. SW will email this Patient her radiation schedule. SW will remain available and will follow up as appropriate. CADY Barrett documented in this encounterOhiohealth Pickering[facility]12-22-2022 Miscellaneous Notes* Telephone Encounter - TEA Barrett - 04/22/2022 4:01 PM EST [facility] Date of service:04/22/22 Felisha Diallo is being seen for a follow up social work visit. Today's visit includes: patient TOPICS ADDRESSED: community resources and transportation PLAN: Continue follow up as needed Assigned ONEIDA listed in Care Team tab: Yes Patient called to review her upcoming transportation schedule.Please refer to ONEIDA note from 04/21/22for the transportation plan for when radiation treatments start on 05/04/22. Patient was appreciativeof the call. SW will remain available and will follow up as appropriate. CADY Barrett documented in this encounterOhiohealth Pickering[facility]12-21-2022 Miscellaneous Notes* Telephone Encounter - TEA Barrett - 04/21/2022 9:52 AM EST [facility] Date of service:04/21/22 Felisha Diallo is being seen for a follow up social work visit. Today's visit includes: patient TOPICS ADDRESSED: community resources and transportation PLAN: Communicate pertinent medical/psychosocial information to Cancer Center team and Continue follow up as needed Assigned ONEIDA listed in Care Team tab: Yes ONEIDA called Patient and discussed her transportation plan for her upcoming radiation treatments. [facility] has agreed to pay for 20 round trip rides through [employer] . Patient will contact her health insurance provider and schedule a ride through them for every Tuesday. Diaan have her son provide her with a ride every Tuesday. [employer] will transport the Patient , Wednesdays and . There are 2 days (06/17/22 and 06/22/22) [facility]. ONEIDA will continue to work with the Patient on possible solutions for those 2 dates. SW will remain available and will follow up as appropriate. CADY Barrett documented in this encounterOhiohealth Pickering[facility]12-20-2022 Miscellaneous Notes* Telephone Encounter - TEA Barrett - 04/20/2022 4:13 PM EST [facility]IAL [facility]LLOW [facility] Date of service:04/20/22 TOPICS ADDRESSED: community resources and transportation PLAN: Continue follow up as needed Assigned SW listed in Care Team tab: Yes ONEIDA spoke with Kevin at [facility]. They are able to pay for 20 round trip rides through D&D Rides. SW called Patient x 2 to provide an update and was unable to reach her. ONEIDA will try again tomorrow. CADY Barrett documented in this encounterOhiohealth [facility]ering[facility]12-19-2022 Miscellaneous Notes* Telephone Encounter - TEA Barrett - 04/19/2022 3:11 PM EST [facility] Date of service:04/19/22 TOPICS ADDRESSED: transportation PLAN: Continue follow up as needed Assigned SW listed in Care Team tab: Yes SW received a call from ONEIDA Menezes at [facility] ext [phone]. Riri reports that the Patient called her regarding transportation for her upcoming radiation treatments. Riri learned that this SW was involved and and wanted to make sure that there was not a duplication of SW services. ONEIDA updatedLaura that this SW is waiting to hear from [facility] regarding transportation before other lisa ls will be made. Riri mentioned that this Patient has a [employer] Member Chasity and she may need to call if to see what transportation options [facility] offer this Patient. SW will remain available and will follow up as appropriate. CADY Barrett documented in this encounterOhiohealth Pickerington [facility]12-16-2022 Miscellaneous Notes* Telephone Encounter - TEA Barrett - 04/16/2022 2:41 PM EST [facility] Date of service:04/16/22 Felisha Diallo is being seen for a follow up social work visit. Today's visit includes: patient TOPICS ADDRESSED: community resources and transportation PLAN: Continue follow up as needed Assigned SW listed in Care Team tab: Yes Patient called in to ask for an update on her request for transportation. SW shared that a call wasplaced to [facility]. Once this SW hears back from [facility] then the Patient will be updated. Patient called the [employer] for transportation assistance was given 3 resources ([employer], [employer], and [employer]). SW visited all 3 websites and learned that there are no transportation resources for the area where this Patient lives. Jean-Paulll remain available and will follow up as appropriate. CADY Barrett documented in this encounterOhiohealth Pickerington [facility]12-15-2022 Miscellaneous Notes* Telephone Encounter - TEA Barrett - 04/15/2022 9:32 AM EST [facility] Date of service:04/15/22 TOPICS ADDRESSED: community resources and transportation PLAN: Continue follow up as needed and Referral to community resource F/U APPOINTMENT: 05/04/22 12:15pm (1st radiation treatment) Assigned SW listed in Care Team tab: Yes SW called Nora at [facility] to share an update on the Patient's transportation needs. Patient is starting her radiation treatments (36 in total) on 05/04/22. Patient needs a wheelchair van ridefor every treatment. [facility] Services is going to see what they are able to do to help with this meza sportation need. [facility] does not feel that they can cover the entire cost of 36 round tripwheelchair van rides. Nora suggested that [employer] may need to be approached and the Patient may need to use some of the rides allowed per year under her insurance. Nora will call this SW back. CADY Barrett documented in this encounterOhiohealth Pickerington [facility]12-14-2022 History of Present illness Narrative* Kennedy Garcia MD - 04/14/2022 11:32 PM EST Radiation Oncology - Follow Up Note PATIENT NAME: Felisha Diallo PATIENT DIAGNOSIS/PATIENT IDENTIFICATION: Ms. 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 Ortiz and staging work-up with PET/CT on 03/16/[address] Zamora showing no evidence of regional or distant metastatic disease. Lesion was described by Dr. Zamora as '4cm raised lesion on right labia majora within 2cm of midline. No involvement of vagina, urethra or anus'. Based on her medical comorbidities and body habitus, she is considered high risk for surgical resection and poor recovery/wound healing and was referred to the radiation medicine clinic to have a discussion regarding the role of radiation therapy in the definitive/nonoperative management of her vulvar cancer.. Ms. Diallo returns to clinic today for simulation as previously discussed during consultation on 04/02/2022. We again briefly reviewed the rationale, logistics, and toxicity of radiation therapy in this definitive setting. After all of her questions were answered, informed consent was obtained. She will proceed to CT simulation following this visit to begin treatment planning and I anticipate starting radiation shortly. Thank you for allowing us to participate in the care of this patient. Signed by: Kennedy Garcia MD I spent a total of 10 minutes on the date of the service which included preparing to see the patient, [id number] patient care, and counseling and educating the patient/family/caregiver. This document has been created with the use of voice recognition technology. It may contain inaccuracies, misspellings, inaccurate syntax or inappropriate word context that are a result of the inadequacies/shortcomings of said technology/software. documented in this encounterOhiohealth Pickerington [facility]12-14-2022 History of Present illness Narrative* TEA Barrett - 04/14/2022 4:35 PM EST SOCIAL WORK FOLLOW UP NOTE: [facility] Date of service:04/14/22 TOPICS ADDRESSED: community resources and transportation PLAN: Continue follow up as needed and Referral to community resource Assigned SW listed in Care Team tab: Yes SW received an email from [facility] Therap[facility] that the Patient has a sim today and will start daily radiation treatments on 05/04/22 12:15pm. Patient will be set up for 36 treatments. SW will coordinate specific dates/times with the Radiation Therapists then will reach out to [facility] for to help secure transportation for this Patient. CADY Barrett documented in this encounterOhiohealth Pickerington [facility]12-14-2022 History of Present illness Narrative* Kennedy Garcia MD - 04/14/2022 12:00 AM EST FELISHA DIALLO [id number] 04/14/2022 [facility] Department of Radiation Oncology Treatment Planning Note For reasons stated in the consult note, Felisha Diallo is a candidate for radiation therapy. Based on review and interpretation of the relevant diagnostic studies together with the exam findings, Felisha Diallo was simulated on 04/14/2022 at which time the target volume and/or requisite melissa were de lineated, as indicated in the simulation note, to be treated according to the prescription. The treatment target and organs at risk were contoured on the simulation scan /. Special consideration to these and other structures was given in light of the potential for increased toxicities. After reviewing multiple treatment plans with dosimetry, the best plan was approved to deliver the prescribed course of radiation to the target area using inverse planning to allow for the best isodose distribution, treating to the 97.9% isodose line with 10MV and 2 melissa. Custom MLC asym jaws forIMRT were the treatment devices used to shape/modify the beams. Limiting dose to normal tissue was confirmed upon review of the calculated dose volume histogram. IMRT planning was used because it best met the dose/volume constraints for the organs at risk for this patient, better than what could be achieved using conventional or 3D planning. The specific doserequirements for the PTV, organs at risk and dose-volume histograms are contained in this treatmentplan and/or elsewhere in the medical record. A completed summary of this plan dated 04/30/22 incorporated herein by reference includes dose, beam arrangements, energy, blocking, isodose distribution, and/or ports and DVH. Electronically Signed Kennedy Garcia M.D. 35:40 AM documented in this encounterOhiohealth Pickering[facility]12-09-2022 Miscellaneous Notes* Telephone Encounter - TEA Barrett - 04/09/2022 4:19 PM EST SOCIAL WORK FOLLOW UP NOTE: [facility] Date of service:04/09/22 Felisha Diallo is being seen for a follow up social work visit. Today's visit includes: patient TOPICS ADDRESSED: community resources and transportation PLAN: Continue follow up as needed Assigned SW listed in Care Team tab: Yes Patient called in to ask about transportation options. SW updated her that [facility] Services is willing to work with D&D rides for her transportation needs. D&D does have wheelchair vans, but on a first come, first serve basis. SW explained that once there is a start date for her radiation treatments then a call can be made to D&D rides. Patient mentioned that after 04/14/22 she has exhausted her transportation benefit through her insurance provider. Patient called to ask for more ride and was denied additional rides. SW will remain available and will follow up as appropriate. CADY Barrett documented in this encounterOhiohealth Pickering[facility]12-02-2022 History of Present illness Narrative* Kennedy Garcia MD - 04/02/2022 11:35 PM EST Images from the original note were not included. Radiation Oncology - New Patient/Consult Note PATIENT NAME: Felisha Diallo PATIENT Signed: Kennedy Garcia MD I spent a total of 60 minutes on the date of the service which included preparing to see the patient, [id number] patient care, and counseling and educating the patient/family/caregiver. This document has been created with the use of voice recognition technology. It may contain inaccuracies, misspellings, inaccurate syntax or inappropriate word context that are a result of the inadequacies/shortcomings of said technology/software. documented in this encounterOhiohealth Pickering[facility]12-02-2022 History of Present illness Narrative* TEA Barrett - 04/02/2022 12:20 PM EST SOCIAL WORK FOLLOW UP NOTE: [facility] Date of service:04/22/22 Felisha Diallo is being seen for a follow up social work visit. Today's visit includes: patient TOPICS ADDRESSED: coping/support and community resources PLAN: Continue follow up as needed Assigned SW listed in Care Team tab: Yes Patient requested to meet this SW in person. Patient is in today for a New Patient Consult appointment Dr. Garcia. Patient was able to secure transportation for today's appointment and she will work on a ride for her next appointment on 04/14. Patient asked for any updates from [facility] Services involvement. SW called [facility] Services and Amirah who handles transportation is out of the office and will return on Tuesday. SW will follow up next with [facility]. CADY Barrett documented in this encounterOhiohealth Pickering[facility]12-02-2022 Nurse Note* Sanjana Olivas LPN - 04/02/2022 11:34 AM EST Radiation Therapy - Patient Education Note PATIENT NAME: Felisha Diallo PATIENT April 02, 2022 [facility] FACILITY/LOCATION: [facility] READINESS TO LEARN Cognitive Ability: Alert and oriented Motivation to learn: Interested Family Support: Unable to assess - Family not present Instruction provide to: Patient Patient learns best by: Multiple Methods Factors effecting learning: None Physical limitations effecting learning: None LEARNING RESPONSE Diagnosis: Pt simulated today for radiation therapy to pelvis. Education Topic/Teaching Points: Radiation therapy, Side effects, OTV, and Transportation: Method of instruction: Written instruction - handouts Verbal instruction Patient /Family response: Patient verbalized understanding of radiation treatments, side effects, OTV, and transportation. Follow-up plan: Recommend - Recommend continued instruction and follow up as directed Supplemental material: Informational handouts on Bladder function, Diarrhea, Fatigue, Hair loss, Skin changes, and patient education binder. Referral (recommendation): Social Work Was approved? No Signed by: Sanjana Olivas LPN documented in this encounterOhiohealth Pickering[facility]11-30-2022 History of Present illness Narrative* Robbie Gallardo DO - 03/31/2022 1:51 PM EST Images from the original note were not included. EMERGENCY TRIAGE, TREAT AND TRANSPORT (ET3) DOCUMENTATION OF TELEHEALTH VISIT Date / Time: 03/31/2022 / 1345 Name: Felisha Diallo : 1960 SSN: [id number] EMS Agency: [facility] [x] Verbal consent obtained [] Implied consent - patient with potential emergency medical condition requiring assessment of capacity to refuse treatment and/or transport VITAL SIGNS: see flowsheet documentation Reason for Telehealth Visit: Chief Complaint Patient presents with Wheezing History of Present Ilness: 61 yo female PMH COPD, CHF and morbid obesity was at home when home health aid noted lung base crackles. Required EMS call or home health aid wouldn't wash the patients hair. Pt reports she has recently been off her diuretics as she was out of house and couldn't be close tobathroom to urinate frequently. Also reports she ahs recently had rhinorrhea and cough. Denies SOb, CP, abd pain, fever or chills. Pt is ambulatory at her baseline and able to complete ADL's she reports. EMS ok w/ transport refusal. Additional pertinent PMHx, SocHx, FamHx: PMH as above Social lives alone w/ home health aid services. Review of Systems: Denies the following: CP, abd pain, SOB Exam: General: Awake, no distress ENT: normocephalic, atraumatic Pulmonary: No respiratory distress, mild bilateral exp wheezing per EMS Cardiovascular: Well perfused Neurologic: Oriented to person, place, time and events. Moving all extremities equally. Psychiatric: Appropriate. Good insight and judgement. Medical Decision Makin yo female w/ change in ausculated lung sounds per home health aid. Pt without complaint. Notes she has been off her diuretics recently as she was out of house. Has restarted them. Not hypoxic and without respiratory distress. Ok for refusal. No indication for intervention or transport. Disposition Supported by Telehealth Assessment: ET3 transport decisions: Refused transport EMS Disposition Reported: Same ET3 Encounter Completed by: Robbie Gallardo DO documented in this [id number] Miscellaneous Notes* Telephone Encounter - TEA Barrett - 03/29/2022 4:19 PM EST [facility] Date of service:03/29/22 Felisha Diallo is being seen for a follow up social work visit. Today's visit includes: patient TOPICS ADDRESSED: community resources and transportation PLAN: Continue follow up as needed and Referral to community resource Assigned SW listed in Care Team tab: Yes SW received an email from Amirah at [facility] that this Patient called her for transportation assistance. SW called and spoke with Patient about transportation. Patient states that she has 5 round trip rides remaining for 2021 through [employer]. SW encouraged Patient to secure a ride for her upcoming appointments on 04/02 and 04/14 through [employer]. Patient was agreeable. ONEIDA faxed Cancer Services an Intake Form for this Patient so they can begin to explore if there is transportation available for this Patient. SW will remain available and will follow up as appropriate. CADY Barrett documented in this encounterOhiohealth [facility]ering[facility]11-25-2022 Miscellaneous Notes* Telephone Encounter - TEA Barrett - 03/26/2022 10:15 AM EST [facility]IAL WORK [facility] Date of service:03/26/22 Felisha Diallo is being seen for a follow up social work visit. Today's visit includes: patient TOPICS ADDRESSED: transportation PLAN: Continue follow up as needed Assigned SW listed in Care Team tab: Yes SW called Patient to check in and follow up on her transportation needs. Patient has a appointment on 04/02/[address] Garcia. Patient reports that she was sleeping when this SW called. Patient sharedthat she has been working on securing transportation for her appt. Patient states that she would prefer to have this conversation another time because she is quite tired and had a fall last evening that required a call to the EMS for assistance. Patient requested that this SW call back on 03/29/22 after 3pm because she has an appt with [facility] earlier in the day. SW set a reminder notice to call this Patient back. CADY Barrett documented in this encounterOhiohealth Pickering[facility]11-14-2022 NoteHNO ID: [id number] Author: Mariana Zamora MD Service: ? Author Type: Physician Type: Progress Notes Filed: 03/18/2022 5:45 PM Note Text: [id number] PROGRESS NOTE This is a telephone encounter initiated for an established patient, parent or guardian not originating from a related Evaluation AND Management service provided within the previous 7 days nor leading to an Evaluation AND Management service or procedure within the next 24 hours or soonest available appointment. Patient name and birthday verified: Yes Location of patient: Home Persons Present: patient DATE OF SERVICE: 03/18/2022 REASON FOR VISIT: Vulvar Cancer Consultation requested by Dr. Ortiz. My final recommendations will be communicated back to the requesting physician by way of shared Medical record or letter to requesting physician via [place] mail. DIAGNOSIS: Vulvar Cancer HPI: Felisha Diallo is a 61 year old female with pmh significant for chronic migraine, COPD, poorly controlled Type 2 DM, hydradenitis, largely wheelchair dependent and a former smoker. Presents today for follow up for her recently diagnosed squamous cell carcinoma. Patient underwent a biopsy of a right vulvar mass on 02/11/22. Initially she presented to the ER with complaints of a right labial abscess or cyst that was present for months until it had opened when wiping and observed a large amount of blood from the area. She saw bacon skinner who referred her to general surgery for a biopsy. Biopsy confirmed invasive SCC. Patient now presents for further evaluation. She states that she continues to have intermittent bleeding from this area. Denies any additional symptoms. [facility] Outside path review : 02/12/2022 FINAL DIAGNOSIS Vaginal mass, right, biopsy ([id number], 02/11/2022, A1-A2): -Invasive squamous cell carcinoma, HPV-associated. OBSTETRIC/ GYNECOLOGY HISTORY: Last Pap: 06/2021 NILM and HPV negative Last HPV: 06/2021 PAST MEDICAL HISTORY Diagnosis Date Asthma Bipolar depression (HCC) Chronic kidney disease, stage III (moderate) (HCC) COPD (chronic obstructive pulmonary disease) (HCC) DM (diabetes mellitus), type 2 (HCC) High blood cholesterol Migraines Sleep disorder Recent blood sugars : 190-220 07/2020 - severe bacterial pneumonia resulting in sepsis hospitalized [facility] Renal failure following this admission PAST SURGICAL HISTORY Procedure Laterality Date BOWEL RESECTION HX 2017 Family History Problem Relation Age of Onset Diabetes Mother Heart Failure Mother Emphysema Father Obstructive Sleep Apnea Father Cancer Maternal Grandmother Parkinson?s Disease Paternal Grandmother Heart Attack Paternal Grandfather RECENT IMAGIN08/18/2021 Pelvic US Impression: Exam slightly limited by patient body habitus Mildly thickened endometrium for patient's age (7mm) 03/16/2022 PET IMPRESSION: 1. NECK: No FDG avid neoplastic process. No mass, adenopathy, or fluid collection. 2. CHEST: No FDG avid neoplastic process. No mass, adenopathy, or fluid collection. 3. ABDOMEN/PELVIS: No definite abnormal uptake is identified in the vulvar region, likely related to the configuration and size of the patient's known malignancy/lesion. No hypermetabolic lymphadenopathy. 4. EXTREMITIES/SKELETON: No FDG avid osseous process. No destructive/traumatic bony abnormality. HEALTH MAINTENANCE: Last mammogram: not discussed at this visit Last colonoscopy: not discussed at this visit ECOG performance status ECOG PERFORMANCE STATUS: 4- Completely disabled. Cannot carry on any selfcare. Totally confined to bed/chair. SUBJECTIVE/INTERVAL HISTORY: Felisha Diallo has had worsening problems with her lower extremities with chronic venous issues. Had an ultrasound yesterday on her lower leg and she states there was a lot of pressure in her vulvar area when the relays draftsperson was checking her groin vasculature and she notes increased bleeding today. Regarding her blood sugar she states that her PCP recently increased her insulin so they are monitoring closely. Otherwise no new complaints today. OBJECTIVE: Deferred due to televisit ASSESSMENT: 61 year old female with pmh significant for chronic migraine, COPD, poorly controlled Type 2 DM, hydradenitis, chronic venous stasis lower extremities, largely wheelchair dependent and a former smoker. 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 On prior exam 4cm slightly raised lesion on the right labia majora within 2cm of midline. PET scan reviewed today with no evidence of metastasis. I discussed with patient risks and benefits of surgery vs primary radiation. I have concerns regarding her surgical candidacy particularly with her obesity, limited mobility and poor glucose control. She is at high risk for wound breakdown and infection both in the vulvar and inguinal areas. Additionally this lesion (more content not included)...[facility] 03-15-2022 History of Present illness Narrative* Mariana Zamora MD - 03/15/2022 2:38 PM EST [id number] PROGRESS NOTE This is a telephone encounter initiated for an established patient, parent or guardian not originating from a related Evaluation & Management service provided within the previous 7 days nor leading to an Evaluation & Management service or procedure within the next 24 hours or soonest available appointment. Patient name and birthday verified: Yes Location of patient: Home Persons Present: patient DATE OF SERVICE: 03/18/2022 REASON FOR VISIT: Vulvar Cancer Consultation requested by Dr. Ortiz. My final recommendations will be communicated back to the requesting physician by way of shared Medical record or letter to requesting physician via [place] mail. DIAGNOSIS: Vulvar Cancer HPI: Felisha Diallo is a 61 year old female with pmh significant for chronic migraine, COPD, poorly controlled Type 2 DM, hydradenitis, largely wheelchair dependent and a former smoker. Presents todayfor follow up for her recently diagnosed squamous cell carcinoma. Patient underwent a biopsy of a right vulvar mass on 02/11/22. Initially she presented to the ER with complaints of a right labial abscess or cyst that was present for months until it had opened when wiping and observed a large amount of blood from the area. She saw bacon skinner who referred her to general surgery for a biopsy. Biopsy confirmed invasive SCC. Patient now presents for further evaluation. She states that she continues to have intermittent bleeding from this area. Denies any additional symptoms. [facility] Outside path review : 02/12/2022 FINAL DIAGNOSIS Vaginal mass, right, biopsy ([id number], 02/11/2022, A1-A2): -Invasive squamous cell carcinoma, HPV-associated. OBSTETRIC/ GYNECOLOGY HISTORY: Last Pap: 06/2021 NILM and HPV negative Last HPV: 06/2021 PAST MEDICAL HISTORY Diagnosis Date Asthma Bipolar depression (HCC) Chronic kidney disease, stage III (moderate) (HCC) COPD (chronic obstructive pulmonary disease) (HCC) DM (diabetes mellitus), type 2 (HCC) High blood cholesterol Migraines Sleep disorder Recent blood sugars : 190-220 07/2020 - severe bacterial pneumonia resulting in sepsis hospitalized [facility] Renal failure following this admission PAST SURGICAL HISTORY Procedure Laterality Date BOWEL RESECTION HX 2017 Family History Problem Relation Age of Onset Diabetes Mother Heart Failure Mother Emphysema Father Obstructive Sleep Apnea Father Cancer Maternal Grandmother Parkinson s Disease Paternal Grandmother Heart Attack Paternal Grandfather RECENT IMAGIN08/18/2021 Pelvic US Impression: Exam slightly limited by patient body habitus Mildly thickened endometrium for patient's age (7mm) 03/16/2022 PET IMPRESSION: 1. NECK: No FDG avid neoplastic process. No mass, adenopathy, or fluid collection. 2. CHEST: No FDG avid neoplastic process. No mass, adenopathy, or fluid collection. 3. ABDOMEN/PELVIS: No definite abnormal uptake is identified in the vulvar region, likely related to the configuration and size of the patient's known malignancy/lesion. No hypermetabolic lymphadenopathy. 4. EXTREMITIES/SKELETON: No FDG avid osseous process. No destructive/traumatic bony abnormality. HEALTH MAINTENANCE: Last mammogram: not discussed at this visit Last colonoscopy: not discussed at this visit ECOG performance status ECOG PERFORMANCE STATUS: 4- Completely disabled. Cannot carry on any selfcare. Totally confined to bed/chair. SUBJECTIVE/INTERVAL HISTORY: Felisha Diallo has had worsening problems with her lower extremities with chronic venous issues. Had an ultrasound yesterday on her lower leg and she states there was a lot of pressure in her vulvar area when the relays draftsperson was checking her groin vasculature and she notes increased bleeding today. Regarding her blood sugar she states that her PCP recently increased her insulin so they are monitoring closely. Otherwise no new complaints today. OBJECTIVE: Deferred due to televisit ASSESSMENT: 61 year old female with pmh significant for chronic migraine, COPD, poorly controlled Type 2 DM, hydradenitis, chronic venous stasis lower extremities, largely wheelchair dependent and a former smoker. 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 On prior exam 4cm slightly raised lesion on the right labia majora within 2cm of midline. PET scan reviewed today with no evidence of metastasis. I discussed with patient risks and benefitsof surgery vs primary radiation. I have concerns regarding her surgical candidacy particularly withher obesity, limited mobility and poor glucose control. She is at high risk for wound breakdown andinfection both in the vulvar and inguinal areas. Additionally this lesion is within 2cm of clitoralregion and surgical resection may involve clitorectomy which patient is adamantly against. For these reasons I am recommending primary radiation to the vulva. Given the relatively small primary lesion and negative PET it would be reasonable to omit groin radiation to reduce toxicity and can monitorclosely post treatment. If patient has a complete local response then we may be able to avoid surgery all together vs smaller salvage resection.Will place radiation oncology consultation for further review and recommendations. Patient reports transportation may be a barrier to completing radiation therapy. I explained radiation oncology team will have more information as to whether transportation assistance in [place] is available. If patient completely unable to attend daily RT appointments then may have to re-considerrisks/benefits of surgery. We reviewed the importance of better glucose control while undergoing treatment - patient is following with PCP and recently had increase in insulin regimen. PLAN: Vulvar cancer - radiation oncology referral placed, follow up with me 04/14 to review plan of care Poorly controlled diabetes- continue management with PCP Mariana Zamora MD TIME INCREMENT: 15 minutes spent discussing results and plan of care on the phone today. [facility] Miscellaneous Notes* Telephone Encounter - Zee Vail - 03/11/2022 10:38 AM EST I called and spoke with the pt letting her know of the televisit with Dr. Zamora. Pt is aware. documented in this encounter[facility] History of Present illness Narrative* Mariana Zamora MD - 03/10/2022 1:30 PM EST DATE OF SERVICE: 03/10/2022 REASON FOR VISIT: Vulvar Cancer Consultation requested by Dr. Ortiz. My final recommendations will be communicated back to the requesting physician by way of shared Medical record or letter to requesting physician via US mail. DIAGNOSIS: Vulvar Cancer HPI: Felisha Diallo is a 61 year old female with pmh significant for chronic migraine, COPD, poorly controlled Type 2 DM, hydradenitis, largely wheelchair dependent and a former smoker. Presents todayfor follow up for her recently diagnosed squamous cell carcinoma. Patient underwent a biopsy of a right vulvar mass on 02/11/22. Initially she presented to the ER with complaints of a right labial abscess or cyst that was present for months until it had opened when wiping and observed a large amount of blood from the area. She saw bacon skinner who referred her to general surgery for a biopsy. Biopsy confirmed invasive SCC. Patient now presents for further evaluation. She states that she continues to have intermittent bleeding from this area. Denies any additional symptoms. [facility] Outside path review : 02/12/2022 FINAL DIAGNOSIS Vaginal mass, right, biopsy ([id number], 02/11/2022, A1-A2): -Invasive squamous cell carcinoma, HPV-associated. OBSTETRIC/ GYNECOLOGY HISTORY: Last Pap: 06/2021 NILM and HPV negative Last HPV: 06/2021 PAST MEDICAL HISTORY Diagnosis Date Asthma Bipolar depression (HCC) Chronic kidney disease, stage III (moderate) (HCC) COPD (chronic obstructive pulmonary disease) (HCC) DM (diabetes mellitus), type 2 (HCC) High blood cholesterol Migraines Sleep disorder Recent blood sugars : 190-220 07/2020 - severe bacterial pneumonia resulting in sepsis hospitalized [facility] Renal failure following this admission PAST SURGICAL HISTORY Procedure Laterality Date BOWEL RESECTION HX 2017 Family History Problem Relation Age of Onset Diabetes Mother Heart Failure Mother Emphysema Father Obstructive Sleep Apnea Father Cancer Maternal Grandmother Parkinson s Disease Paternal Grandmother Heart Attack Paternal Grandfather RECENT IMAGING: Ultrasound pelvis Date:08/18/2021 Impression: Exam slightly limited by patient body habitus Mildly thickened endometrium for patient's age (7mm) HEALTH MAINTENANCE: Last mammogram: not discussed at this visit Last colonoscopy: not discussed at this visit ECOG performance status ECOG PERFORMANCE STATUS: 4- Completely disabled. Cannot carry on any selfcare. Totally confined to bed/chair. OBJECTIVE: VITALS: BP 130/64 Pulse 98 Temp 97.9 Resp 20 Wt 360 lb (163.3kg) SpO2 96% GENERAL: oriented, pleasant, cooperative, and Alert. HEENT: Normocephalic, atraumatic, and no lesions. NECK: Supple, no adenopathy HEART: Regular rate LUNGS: normal work of breathing ABDOMEN: Abdomen soft, non-tender, no palpable adenopathy PELVIC: 4cm raised lesion on right labia majora within 2cm of midline. No involvement of vagina, urethra or anus. LOWER EXTREMITIES: No pitting edema and no skin changes ASSESSMENT: 61 year old female with pmh significant for chronic migraine, COPD, poorly controlled Type 2 DM, hydradenitis, largely wheelchair dependent and a former smoker. Presents today for follow up for her recently diagnosed squamous cell carcinoma. On exam today there is a 4cm slightly raised lesion on the right labia majora within 2cm of midline. Discussed management of SCC vulvar with primary surgery with radical vulvectomy and sentinel inguinal lymph node biopsy vs radiation therapy. Patient prefers a surgical approach if possible. Anatomically her tumor is amenable to surgical resection with primary closure however given patient's medical comorbidities, she is at risk for poor wound healing which we discussed in detail. Plan for PET scan to further assist with treatment planning. Will follow up with televisit thereafter to discuss plan of care. Risks of surgery discussed in detail including infection, bleeding, post operative pain, wound infection or separation, anesthesia complications including respiratory complications. Patient expressedunderstanding and informed consent was obtained. PLAN: - PET/CT - pre op labs ordered and drawn today - televisit to further discuss surgery vs RT Mariana Zamora MD Medical Decision Making: Problems: High: Illness/injury w/ threat to life/body function Data: Unique test result(s) reviewed: 1 Unique test(s) ordered: 3+ Risk: Moderate: Decision on minor surgery w/ risk factors Medical Decision Making Level: 4 - Moderate documented in this encounterOhio[facility]26-[facility] Evaluation note* Encounter Date Diagnosis Assessment Notes Treatment Notes Treatment Clinical Notes Dec, Chronic kidney disea se, stage III (moderate) (ICD-10 - N18.30) She has CKD due to the longstanding DM and HTN. Her baseline serum creatinine 1.3 mg/dL. I discussed with the importance of good DM and HTN control to slow down the progression of CKD. I have advised her to avoid NSAIDs. Dec, Diabetes mellitus wi th chronic kidney disease (ICD-10 - E11.22) Blood sugars are above the goal. Continue DM management as per PCP. She is not on SHREYA or ARB due to the recent SOPHIA. 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 She has a lymphedema likely due to the venous stasis. I have advised her to comply with the Lasix due to the risk of recurrent cellulitis due to the blisters. Dec, Secondary hyperparathyroidism (ICD-10 - N25.81) She has a low vitamin D but her calcium phosphorus PTH are within the goal. I have prescribed oral ergocalciferol 50,000 unit weekly. Dec, Iron deficiency (ICD -10 - E61.1) Hemoglobin is within the goal and low iron. She didnot tolerate oral Iron [facility] Other 03-09-2022 Evaluation note* Encounter Date Diagnosis Assessment Notes Treatment Notes Treatment Clinical Notes Jun, Chronic kidney disea se, stage III (moderate) (ICD-10 - N18.30) She has CKD due to the longstanding DM and HTN. Her baseline serum creatinine 1.3 mg/dL. I discussed with the importance of good DM and HTN control to slow down the progression of CKD. I have advised her to avoid NSAIDs. Jun, Diabetes mellitus wi th chronic kidney disease (ICD-10 - E11.22) Blood sugars are within the acceptable range. Continue DM management as per PCP. She is not on SHREYA or ARB due to the recent SOPHIA. 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 She has a lymphedema likely due to the venous stasis. Will monitor without diuretics. Jun, Secondary hyperparathyroidism (ICD-10 - N25.81) MBD parameters calcium, PTH and vitamin D are within the goal. She has a low phosphorus so I have stopped the sevelamer. Continue Vit D 2000 units daily Jun, Metabolic acidosis (ICD-10 - E87.2) Her serum bicarbonate is above the goal. Stop sodium bicarbonate. Jun, Iron deficiency (ICD -10 - E61.1) Hemoglobin is within the goal and low iron. She didnot tolerate oral Iron [facility] Other Evaluation note* Diagnosis Onset Date Resolution Status Acute GI bleeding acute [facility] noteNo InformationNortL[facility] Other Evaluation noteNo assessment information available [facility] Work Phone: Evaluation note* Diagnosis Vulvar cancer (HCC)- Primary Malignant neoplasm of vulva, unspecified site documented [facility] encounter [facility]* Diagnosis Vulvar cancer (HCC)- Primary Malignant neoplasm of vulva, unspecified site [facility]* Diagnosis Vulvar cancer (HCC)- Primary Malignant neoplasm of vulva, unspecified site Class 3 severe obesity due to excess calories with serious comorbidity in adult, unspecified BMI (HCC) [E66.01 (ICD-10-CM)] Chronic obstructive pulmonary disease, unspecified COPD type (HCC) [J44.9 (ICD-10-CM)] Type 2 diabetes mellitus with hyperglycemia, without long-term current use of insulin (HCC) [E11.65 (ICD-10-CM)] documented [facility] this encounter [facility]* Diagnosis Vulvar cancer (HCC)- Primary Malignant neoplasm of vulva, unspecified site Type 2 diabetes mellitus with diabetic dermatitis, with long-term current use of insulin (HCC) [E11.620, Z79.4 (ICD-10-CM)] documented in this encounter [facility]* Diagnosis [facility]ezing- Primary [facility] Diagnosis Vulvar cancer (HCC) Malignant neoplasm of vulva, unspecified site [facility] encounter [facility]* Diagnosis Vulvar cancer (HCC)- Primary Malignant neoplasm of vulva, unspecified site documented in this encounter [facility] note* Diagnosis Vulvar cancer (HCC) [C51.9 (ICD-10-CM)]- Primary Malignant neoplasm of vulva, unspecified site Constipation, unspecified constipation type [K59.00 (ICD-10-CM)] documented in this encounter [facility] note* Diagnosis Vulvar cancer (HCC)- Primary Malignant neoplasm of vulva, unspecified site documented in this encounter [facility] note* Diagnosis Vulvar cancer (HCC)- Primary Malignant neoplasm of vulva, unspecified site documented in this encounter [facility] note* Diagnosis Vulvar cancer (HCC)- Primary Malignant neoplasm of vulva, unspecified site documented in this encounter [facility] note* Diagnosis Vulvar cancer (HCC)- Primary Malignant neoplasm of vulva, unspecified site documented in this encounter [facility] note* Diagnosis Vulvar cancer (HCC) Malignant neoplasm of vulva, unspecified site documented in this encounter [facility] note* Diagnosis Vulvar cancer (HCC)- Primary Malignant neoplasm of vulva, unspecified site documented in this encounter [facility] note* Diagnosis Dysuria- Primary documented in this encounter [facility] note* Diagnosis Vulvar cancer (HCC)- Primary Malignant neoplasm of vulva, unspecified site documented in this encounter [facility] note* Diagnosis Vulvar cancer (HCC) [C51.9 (ICD-10-CM)]- Primary Malignant neoplasm of vulva, unspecified site Moderate smoker (20 or less per day) [F17.210 (ICD-10-CM)] Tobacco use disorder Class 3 severe obesity due to excess calories with serious comorbidity and body mass index (BMI) of 50.0 to 59.9 in adult (HCC) [E66.01, Z68.43 (ICD-10-CM)] Chronic obstructive pulmonary disease, unspecified COPD type (HCC) [J44.9 (ICD-10-CM)] Type 2 diabetes mellitus with diabetic chronic kidney disease, unspecified CKD stage, unspecified whether halfway insulin use (HCC) [E11.22 (ICD-10-CM)] documented in this encounter [facility] note* Diagnosis Vulvar cancer (HCC)- Primary Malignant neoplasm of vulva, unspecified site Open wound [T14.8XXA (ICD-10-CM)] Open wound(s) (multiple) of unspecified site(s), without mention of complication documented in this encounter [facility] note* Diagnosis Encounter for follow-up surveillance of vulvar cancer [Z08, Z85.44 (ICD-10-CM)]- Primary documented in this encounter [facility] note* Diagnosis Encounter for follow-up surveillance of vulvar cancer [Z08, Z85.44 (ICD-10-CM)]- Primary documented in this encounter [facility] note* Diagnosis Encounter for follow-up surveillance of vulvar cancer [Z08, Z85.44 (ICD-10-CM)]- Primary Vulvar candidiasis [B37.31] Candidiasis of vulva and vagina documented in this encounter [facility] note* Diagnosis Vulvar candidiasis- Primary Candidiasis of vulva and vagina documented in this encounter [facility] note* Diagnosis Encounter for follow-up surveillance of vulvar cancer- Primary Abdominal pannus Localized adiposity documented in this encounter [facility] note* Diagnosis Vulvar candidiasis [B37.31]- Primary Candidiasis of vulva and vagina documented in this encounter [facility] note* Diagnosis Vulvar cancer (HCC)- Primary Malignant neoplasm of vulva, unspecified site documented in this encounter [facility] note* Diagnosis Abdominal panniculus- Primary Localized adiposity documented in this encounter [facility] note* Diagnosis Abdominal pannus- Primary Localized adiposity Encounter for follow-up surveillance of vulvar cancer [Z08, Z85.44] documented in this encounter [facility] general Narrative - Reported* Type Description Date Medical History COPD Medical History Bipolar Medical History major depression Medical History kidney disease Medical History peripheral neuropathy Medical History osteoarthritis Medical History sleep apnea Medical History chronic yeast infection Medical History DM Medical History HTN Medical History Obesity Medical History Chronic skin infections Medical History Endometrial hyperplasia w/ out a typia Medical History DIALYSIS UNTIL 12/19/2020 Medical History VAGINAL BLEEDING 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 R 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 Medical History INCONTINENCE Surgical History abdominal plasty Surgical History ureter stent Surgical History HD Catheter Surgical History BOWEL SURGERY 2017 Hospitalization History see surgical hx [facility] Other History general Narrative - Reported* Type Description Date Medical History COPD Medical History Bipolar Medical History major depression Medical History kidney disease Medical History peripheral neuropathy Medical History osteoarthritis Medical History sleep apnea Medical History chronic yeast infection Medical History DM Medical History HTN Medical History Obesity Medical History Chronic skin infections Medical History Endometrial hyperplasia w/ out a typia Medical History DIALYSIS UNTIL 12/19/2020 Medical History VAGINAL BLEEDING 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 LATE R THIS WEEK Medical History INCONTINENCE Medical History SQUAMOUS CELL CANCER OF VULVA RADIATION TREATMENT 6 WEEKS Surgical History abdominal plasty Surgical History ureter stent Surgical History HD Catheter Surgical History BOWEL SURGERY 2017 Hospitalization History see surgical hx [facility] Other Reason for referral (narrative)* Diagnostic Procedure Only (Routine) - Pending Review Specialty Diagnoses / Procedures Referred By Keya cazares Referred To Contact MOLECULAR & FUNCTIONAL IMAGING Diagnoses Vulvar cancer (HCC) Procedures NM PET/CT SKULL-THIGH INITIAL PET IMAGING CT ATTENUATION SKULL BASE MID-THIGH Mariana Zamora MD [address] [place] [address] Molecular & Functional Imaging [address] [place] [address] Referral ID Status Reason Start Date Expiration Date Visits Requested Visits Authorized [id number] Pending Review Auto-Generat ed Referral 03/27/2023 1 1 [facility] for referral (narrative)* Diagnostic Procedure Only (Routine) - Pending Review Specialty Diagnoses / Procedures Referred By Keya cazares Referred To Contact MOLECULAR & FUNCTIONAL IMAGING Diagnoses Vulvar cancer (HCC) Procedures NM PET/CT SKULL-THIGH INITIAL PET IMAGING CT ATTENUATION SKULL BASE MID-THIGH Mariana Zamora MD [address] [place] [address] Molecular & Functional Imaging [address] [place] [id number] Referral ID Status Reason Start Date Expiration Date Visits Requested Visits Authorized [id number] Pending Review Auto-Generat ed Referral 03/10/2022 04/09/2023 1 1 [facility] Diagnostic Procedure Only (Routine) - Pending Review Specialty Diagnoses / Procedures Referred By Keya cazares Referred To Contact MOLECULAR & FUNCTIONAL IMAGING Diagnoses Vulvar cancer (HCC) Procedures NM PET/CT SKULL-THIGH SUBSEQUENT PET IMAGING CT ATTENUATION SKULL BASE MID-THIGH Mariana Zamora MD [address] [place] [address] Molecular & Functional Imaging [address] [place] [address] Referral ID Status Reason Start Date Expiration Date Visits Requested Visits Authorized [id number] Pending Review Auto-Generat ed Referral 09/08/2022 09/30/2023 1 1 [facility] Summary Purpose Family History No Family History Records Found Relationship Condition Age at Onset Recorded Date/T mary grace Not Specified Congestive heart failure Unknown Advance Directives No Advanced Directives Records Found Advance Directive Response Recorded Date/ Time Advance Directives Yes June 07, 2017 3:50pm Chief Complaint and Reason for Visit Chief Complaint gi bleed Reason for Visit Acute GI bleeding Chief Complaint Vaginal Mass Chief Complaint Vaginal Mass Vaginal Mass Reason for Referral Specialty Diagnoses / Procedures Referred By Keya cazares Referred To Contact Plastic Surgery Diagnoses Abdominal pannus Procedures CONSULT TO PLASTIC SURGERY OFFICE/OUTPATIENT [facility] 60 MINUTES Mariana Zamora MD [address] [place] [address] Referral ID Status Reason Start Date Expiration Date Visits Requested Visits Authorized [id number] Authorized PCP Requested Referral 06/22/2023 06/21/2024 1 1 Specialty Diagnoses / Procedures Referred By Keya cazares Referred To Contact Diagnoses Vulvar cancer (HCC) Procedures CT SIM PLANNING RADIATION ONCOLOGY THER RAD SIMULAJ-AIDED FIELD SETTING COMPLEX Kennedy Garcia MD [address] [place] [address] [place] [address] [facility] Radiation Oncology Referral ID Status Reason Start Date Expiration Date V isits Requested Visits Authorized [id number] Closed PCP Requested Referral 04/14/2022 07/13/2022 1 1 Specialty Diagnoses / Procedures Referred By Contac t Referred To Contact Radiation Oncology Diagnoses Vulvar cancer (HCC) Procedures RAD/ONC CONSULT OFFICE/OUTPATIENT [facility] 60-74 MINUTES Mariana Zamora MD [address] [id number] Referral ID Status Reason Start Date Expiration Date Visits Requested Visits Authorized [id number] Authorized PCP Requested Referral 2 03/18/2023 1 1 Additional Source Comments INFORMATION SOURCE (unrecogn ized section and content) DATE CREATED AUTHOR 10/21/2017 [facility] DATE CREATED AUTHOR AUTHOR'S ORGANIZ ATION 05/12/2022 [facility] DATE CREATED AUTHOR AUTHOR'S ORGANIZ ATION 06/05/2022 [facility] DATE CREATED AUTHOR AUTHOR'S ORGANIZ ATION 10/09/2022 [facility] DATE CREATED AUTHOR AUTHOR'S ORGANIZ ATION 10/09/2022 [facility] DATE CREATED AUTHOR AUTHOR'S ORGANIZ ATION 02/03/2023 [facility] DATE CREATED AUTHOR AUTHOR'S ORGANIZ ATION 09/28/2023 [facility] DATE CREATED AUTHOR AUTHOR'S ORGANIZ ATION 10/27/2023 [facility] Goals (unrecognized section and content) Goals may be documented in a n alternate sectionNo InformationNo InformationNo InformationGoals may be documented in an alternate sectionGoals may be documented in an alternate sectionNo InformationNo InformationNo InformationNo Information REASON FOR VISIT (unrecogniz ed section and content) Reason Comments Consult Reason Comments Televisit Reason Comments Results Reason Comments Social Work Services Transportation for appt with Dr. Garcia on 04/02/22 Reason Comments Social Work Services Reason Comments Wheezing Reason Comments Patient Education Reason Comments Consult Specialty Diagnoses / Procedures Referred By Contac t Referred To Contact Radiation Oncology Diagnoses Vulvar cancer (HCC) Procedures RAD/ONC CONSULT OFFICE/OUTPATIENT [facility] 60-74 MINUTES Mariana Zamora MD [address] [place] [address] Referral ID Status Reason Start Date Expiration Date V isits Requested Visits Authorized [id number] Closed PCP Requested Referral 03/18/2022 03/18/2023 1 1 Reason Comments Social Work Services Transportation Reason Comments Social Work Services transportation Reason Comments Returning Patient's Call Reason Onset Date Comments Simulation Request Form 04/14/2022 Reason Comments Vulvar cancer (HCC) Reason Comments vulvar cancer Weekly check Reason Comments Radiotherapy On-treatment Visit Reason Comments Social Work Services Transportation for 06/17, 06/22 and 06/23. Reason Onset Date Comments Refill Request 05/24/2022 Reason Comments Appointment Cancelled Reason Comments Social Work Services Transportation. Can robin all scheduled rides after 06/16/22. Reason Comments home health Reason Onset Date Comments Refill Request 06/14/2022 Reason Comments Patient Update Nurse call post radi aiton Reason Comments vulvar cancer Reason Comments Vulvar cancer Reason Comments Results Reason Comments Encounter for follow-up surveillance of vulvar cancer Reason Comments Encounter for follow-up surveillance of vulvar cancer Reason Comments PHOTOS TAKEN Care Teams (unrecognized sec tion and content) Team Status: Inactive Member Role Status Dates Sarah Valentino MD Primary Care Provider Active Julián Ortiz MD Attending Provider Active Team Status: Active Member Role Status Dates Sarah Valentino MD Primary Care Provider Active Fishing Tool Operator Relationship Specialty Start Date End Date Sarah Valentino MD [address] [place] [address] PCP - General Family Medicine 03/10/22 Baldemar Lu III [address] [place] [address] Psychiatry 03/10/22 Hetal Bowers [address] [place] [address] Nephrology 03/10/22 Tamie Vazquez, INTERNET MANAGER [address] [address] Dermatology 03/10/22 Fishing Tool Operator Relationship Specialty Start Date End Date Sarah Valentino MD [address] [place] [address] PCP - General Family Medicine 03/10/22 [facility] III [address] [place] [address] Psychiatry 03/10/22 Elissa, Hetal [address] [address] Nephrology 03/10/22 Tamie Vazquez, INTERNET MANAGER [address] [place] [address] Dermatology 03/10/22 Fishing Tool Operator Relationship Specialty Start Date End Date Sarah Valentino MD [address] [place] [address] PCP - General Family Medicine 03/10/22 [facility] III [address] [place] [address] Psychiatry 03/10/22 Elissa, Hetal [address] [facility] [place] [address] Nephrology 03/10/22 Tamie Vazquez, INTERNET MANAGER [address] [place] [address] Dermatology 03/10/22 Fishing Tool Operator Relationship Specialty Start Date End Date Sarah Valentino MD [address] [place] [address] PCP - General Family Medicine 03/10/22 [facility] III [address] [place] [address] Psychiatry 03/10/22 Elissa, Hetal [address] [place] [address] Nephrology 03/10/22 Tamie Vazquez, INTERNET MANAGER [address] [place] [address] Dermatology 03/10/22 Fishing Tool Operator Relationship Specialty Start Date End Date Sarah Valentino MD [address] [place] [address] PCP - General Family Medicine 03/10/22 [facility] [address] [facility] [place] [address] Psychiatry 03/10/22 Elissa, Hteal [address] [facility] [address] Nephrology 03/10/22 Tamie Vazquez, INTERNET MANAGER [address] [place] [address] Dermatology 03/10/22 Fishing Tool Operator Relationship Specialty Start Date End Date Sarah Valentino MD [address] [place] [address] PCP - General Family Medicine 03/10/22 [place] III [address] [facility] [place] [address] Psychiatry 03/10/22 Elissa, Hetal [address] [facility] [place] [address] Nephrology 03/10/22 Tamie Vazquez, INTERNET MANAGER [address] [place] [address] Dermatology 03/10/22 Lesia Frausto LSW Real Estate Firm Manager 04/09/22 Fishing Tool Operator Relationship Specialty Start Date End Date Sarah Valentino MD [address] [place] [address] PCP - General Family Medicine 03/10/22 [facility] III [address] [place] [address] Psychiatry 03/10/22 Elissa, Hetal [address] [place] [address] Nephrology 03/10/22 Tamie Vazquez, INTERNET MANAGER [address] [place] [address] Dermatology 03/10/22 Fishing Tool Operator Relationship Specialty Start Date End Date Sarah Valentino MD [address] [place] [address] PCP - General Family Medicine 03/10/22 [facility] III [address] [place] [address] Psychiatry 03/10/22 Elissa, Hetal [address] [facility] [place] [address] Nephrology 03/10/22 Tamie Vazquez, INTERNET MANAGER [address] [place] [address] Dermatology 03/10/22 Lesia Frausto LSW Real Estate Firm Manager 04/09/22 Fishing Tool Operator Relationship Specialty Start Date End Date Sarah Valentino MD [address] [place] [address] PCP - General Family Medicine 03/10/22 [facility] III [address] [place] [address] Psychiatry 03/10/22 Elissa, Hetal [address] [place] [address] Nephrology 03/10/22 Tamie Vazquez, INTERNET MANAGER [address] [place] [address] Dermatology 03/10/22 Lesia Frausto LSW Real Estate Firm Manager 04/09/22 Fishing Tool Operator Relationship Specialty Start Date End Date Sarah Valentino MD [address] [place] [address] PCP - General Family Medicine 03/10/22 [facility] [address] [facility] [place] [address] Psychiatry 03/10/22 Elissa, Hetal [address] [facility] [place] [address] Nephrology 03/10/22 Tamie Vazquez INTERNET MANAGER [address] [place] [address] Dermatology 03/10/22 Lesia Frausto LSW Real Estate Firm Manager 04/09/22 Fishing Tool Operator Relationship Specialty Start Date End Date Sarah Valentino MD [address] [place] [address] PCP - General [facility] Medicine 03/10/22 [facility] [address] [facility] [place] [address] Psychiatry 03/10/22 Elissa, Hetal [address] [facility] [place] [address] Nephrology 03/10/22 Tamie Vazquez INTERNET MANAGER [address] [place] [address] Dermatology 03/10/22 Lesia Frausto LSW Real Estate Firm Manager 04/09/22 Fishing Tool Operator Relationship Specialty Start Date End Date Sarah Valentino MD [address] [place] [address] PCP - General Family Medicine 03/10/22 [facility] [address] [place] [address] Psychiatry 03/10/22 Elissa, Hetal [address] [place] [address] Nephrology 03/10/22 Tamie Vazquez, INTERNET MANAGER [address] [place] [address] Dermatology 03/10/22 Lesia Frausto LSW Real Estate Firm Manager 04/09/22 Fishing Tool Operator Relationship Specialty Start Date End Date Sarah Valentino MD [address] [place] [address] PCP - General Family Medicine 03/10/22 [facility] [address] [place] [address] Psychiatry 03/10/22 Elissa, Hetal [address] [place] [address] Nephrology 03/10/22 Tamie Vazquez, INTERNET MANAGER [address] [place] [address] Dermatology 03/10/22 Lesia Frausto LSW Real Estate Firm Manager 04/09/22 Fishing Tool Operator Relationship Specialty Start Date End Date Sarah Valentino MD [address] [place] [address] PCP - General Family Medicine 03/10/22 [facility] III [address] [place] [address] Psychiatry 03/10/22 Elissa, Hetal [address] [place] [address] Nephrology 03/10/22 Tamie Vazquez, INTERNET MANAGER [address] [place] [address] Dermatology 03/10/22 Lesia Frausto LSW Real Estate Firm Manager 04/09/22 Fishing Tool Operator Relationship Specialty Start Date End Date Sarah Valentino MD [address] [place] [address] PCP - General Family Medicine 03/10/22 [facility] III [address] [facility] [place] [address] Psychiatry 03/10/22 Elissa, Hetal [address] [facility] [place] [address] Nephrology 03/10/22 Tamie Vazquez, INTERNET MANAGER [address] [place] [address] Dermatology 03/10/22 Lseia Frausto LSW Real Estate Firm Manager 04/09/22 Fishing Tool Operator Relationship Specialty Start Date End Date Sarah Valentino MD [address] [place] [address] PCP - General Family Medicine 03/10/22 [facility] III [address] [place] [address] Psychiatry 03/10/22 Elissa, Hetal [address] [facility] [place] [address] Nephrology 03/10/22 Tamie Vazquez, INTERNET MANAGER [address] [place] [address] Dermatology 03/10/22 Lesia Frausto LSW Real Estate Firm Manager 04/09/22 Fishing Tool Operator Relationship Specialty Start Date End Date Sarah Valentino MD [address] [place] [address] PCP - General Family Medicine 03/10/22 [facility] III [address] [facility] [place] [address] Psychiatry 03/10/22 Elissa, Hetal [address] [facility] [place] [address] Nephrology 03/10/22 Tamie Vazquez, INTERNET MANAGER [address] [place] [address] Dermatology 03/10/22 Lesia Frausto LSW Real Estate Firm Manager 04/09/22 Fishing Tool Operator Relationship Specialty Start Date End Date Sarah Valentino MD [address] [place] [address] PCP - General Family Medicine 03/10/22 [facility] III [address] [facility] [place] [address] Psychiatry 03/10/22 Elissa, Hetal [address] [facility] [place] [address] Nephrology 03/10/22 Tamie Vazquez, INTERNET MANAGER [address] [place] [address] Dermatology 03/10/22 Lesia Frausto LSW Real Estate Firm Manager 04/09/22 Fishing Tool Operator Relationship Specialty Start Date End Date Sarah Valentino MD [address] [place] [address] PCP - General Family Medicine 03/10/22 [facility] III [address] [facility] [place] [address] Psychiatry 03/10/22 Elissa, Hetal [address] [place] [address] Nephrology 03/10/22 Tamie Vazquez, INTERNET MANAGER [address] [place] [address] Dermatology 03/10/22 Lesia Frausto [facility] Real Estate Firm Manager 04/09/22 Fishing Tool Operator Relationship Specialty Start Date End Date Sarah Valentino MD [address] [place] [address] PCP - General Family Medicine 03/10/22 [facility] III [address] [place] [address] Psychiatry 03/10/22 Elissa, Hetal [address] [place] [address] Nephrology 03/10/22 Tamie Vazquez INTERNET MANAGER [address] [place] [address] Dermatology 03/10/22 Lesia Frausto [facility] Real Estate Firm Manager 04/09/22 Fishing Tool Operator Relationship Specialty Start Date End Date Sarah Valentino MD [address] [place] [address] PCP - General Family Medicine 03/10/22 [facility] III [address] [place] [address] Psychiatry 03/10/22 Elissa, Hetal [address] [place] [address] Nephrology 03/10/22 Tamie Vazquez, INTERNET MANAGER [address] [place] [address] Dermatology 03/10/22 Lesia Frausto LSW Real Estate Firm Manager 04/09/22 Fishing Tool Operator Relationship Specialty Start Date End Date Sarah Valentino MD [address] [place] [address] PCP - General Family Medicine 03/10/22 [facility] [address] [facility] [place] [address] Psychiatry 03/10/22 Elissa, Hetal [address] [place] [address] Nephrology 03/10/22 Tamie Vazquez, INTERNET MANAGER [address] [place] [address] Dermatology 03/10/22 Lesia Frausto LSW Real Estate Firm Manager 04/09/22 Fishing Tool Operator Relationship Specialty Start Date End Date Sarah Valentino MD [address] [place] [address] PCP - General [facility] Medicine 03/10/22 [facility] [address] [facility] [place] [address] Psychiatry 03/10/22 Elissa, Hetal [address] [facility] [place] [address] Nephrology 03/10/22 Tamie Vazquez, INTERNET MANAGER [address] [place] [address] Dermatology 03/10/22 Lesia Frausto LSW Real Estate Firm Manager 04/09/22 Fishing Tool Operator Relationship Specialty Start Date End Date Sarah Valentino MD [address] [place] [address] PCP - General Family Medicine 03/10/22 [place] [facility] [address] [place] [address] Psychiatry 03/10/22 Elissa, Hetal [address] [place] [address] Nephrology 03/10/22 Tamie Vazquez, INTERNET MANAGER [address] [place] [address] Dermatology 03/10/22 Lesia Frausto LSW Real Estate Firm Manager 04/09/22 Fishing Tool Operator Relationship Specialty Start Date End Date Sarah Valentino MD [address] [place] [address] PCP - General Family Medicine 03/10/22 [facility] Baldemar Last III [address] [place] [address] Psychiatry 03/10/22 Elissa, Hetal [address] [place] [address] Nephrology 03/10/22 Tamie Vazquez, INTERNET MANAGER [address] [place] [address] Dermatology 03/10/22 Lesia Frausto LSW Real Estate Firm Manager 04/09/22 Fishing Tool Operator Relationship Specialty Start Date End Date Sarah Valentino MD [address] [place] [address] PCP - General Family Medicine 03/10/22 [place] Baldemar Last III [address] [place] [address] Psychiatry 03/10/22 Elissa, Hetal [address] [place] [address] Nephrology 03/10/22 Tamie Vazquez INTERNET MANAGER [address] [place] [address] Dermatology 03/10/22 Lesia Frausto, CLIENT EXPERIENCE MANAGER Real Estate Firm Manager 04/09/22 Fishing Tool Operator Relationship Specialty Start Date End Date Sarah Valentino MD [address] [place] [address] PCP - General Family Medicine 03/10/22 Baldemar Lu III [address] [place] [address] Psychiatry 03/10/22 Hetal Bowers [address] [facility] [place] [address] Nephrology 03/10/22 Tamie Vazquez INTERNET MANAGER [address] [place] [address] Dermatology 03/10/22 Lesia Frausto, CLIENT EXPERIENCE MANAGER Real Estate Firm Manager 04/09/22 Fishing Tool Operator Relationship Specialty Start Date End Date Sarah Valentino MD [address] [place] [address] PCP - General Family Medicine 03/10/22 Baldemar Lu III [address] [place] [address] Psychiatry 03/10/22 Hetal Bowers MD [address] [facility] [place] [address] Nephrology 03/10/22 Tamie Vazquez CNP [address] [place] [address] Dermatology 03/10/22 Lesia Frausto LSW Real Estate Firm Manager 04/09/22 Fishing Tool Operator Relationship Specialty Start Date End Date Sarah Valentino MD [address] [facility] [place] [address] PCP - General Family Medicine 03/10/22 Baldemar Lu III [address] [place] [address] Psychiatry 03/10/22 Hetal Bowers MD [address] [place] [address] Nephrology 03/10/22 Tamie Vazquez CNP [address] [place] [address] Dermatology 03/10/22 Lesia Frausto LSW Real Estate Firm Manager 04/09/22 Fishing Tool Operator Relationship Specialty Start Date End Date Sarah Valentino MD [address] [place] [address] PCP - [employer] 05/02/20 Sarah Valentino MD [address] [place] [address] PCP - General Family Medicine 09/29/22 Fishing Tool Operator Relationship Specialty Start Date End Date Sarah Valentino MD [address] [place] [address] PCP - General Family Medicine 03/10/22 [facility] Lu III [address] [place] [address] Psychiatry 03/10/22 Hetal Bowers MD [address] [facility] [place] [address] Nephrology 03/10/22 Tamie Vazquez INTERNET MANAGER [address] [place] [address] Dermatology 03/10/22 Lesia Frausto LSW Real Estate Firm Manager 04/09/22 Fishing Tool Operator Relationship Specialty Start Date End Date Sarah Valentino MD [address] [place] [address] PCP - General Family Medicine 03/10/22 [facility]em[facility] Lu III [address] [place] [address] Psychiatry 03/10/22 Hetal Bowers MD [address] [facility] [place] [address] Nephrology 03/10/22 Tamie Vazquez CNP [address] [place] [address] Dermatology 03/10/22 Lesia Frausto LSW Real Estate Firm Manager 04/09/22 Fishing Tool Operator Relationship Specialty Start Date End Date Sarah Valentino MD [address] [place] [address] PCP - General Family Medicine 03/10/22 Baldem[facility] Lu III [address] [facility] [address] Psychiatry 03/10/22 Hetal Bowers MD [address] [facility] [place] [address] Nephrology 03/10/22 Tamie Vazquez INTERNET MANAGER [address] [place] [address] Dermatology 03/10/22 Lesia Frausto, CLIENT EXPERIENCE MANAGER Real Estate Firm Manager 04/09/22 Fishing Tool Operator Relationship Specialty Start Date End Date Sarah Valentino MD [address] [place] [address] PCP - General Family Medicine 03/10/22 Baldemar Lu III [address] [place] [address] Psychiatry 03/10/22 Hetal Bowers MD [address] [facility] [place] [address] Nephrology 03/10/22 Tamie Vazquez, INTERNET MANAGER [address] [facility] [address] [place] [address] Dermatology 03/10/22 Lesia Frausto, CLIENT EXPERIENCE MANAGER Real Estate Firm Manager 04/09/22 Fishing Tool Operator Relationship Specialty Start Date End Date Sarah Valentino MD [address] [place] [address] PCP - General Family Medicine 03/10/22 Baldemar Lu III [address] [place] [address] Psychiatry 03/10/22 Hetal Bowers MD [address] [place] [facility] [address] Nephrology 03/10/22 Tamie Vazquez CNP [address] [place] [address] Dermatology 03/10/22 Lesia Frausto LSW Real Estate Firm Manager 04/09/22 Fishing Tool Operator Relationship Specialty Start Date End Date Sarah Valentino MD [address] [place] [address] PCP - General Family Medicine 03/10/22 Baldemar Lu III [address] [place] [address] Psychiatry 03/10/22 Hetal Bowers MD [address] [place] [facility] [place] [address] Nephrology 03/10/22 Tamie Vazquez CNP [address] [place] [address] Dermatology 03/10/22 Lesia Frausto LSW Real Estate Firm Manager 04/09/22 Fishing Tool Operator Relationship Specialty Start Date End Date Sarah Valentino MD [address] [place] [address] PCP - General Family Medicine 03/10/22 Baldemar Lu III [address] [place] [facility] [address] Psychiatry 03/10/22 Hetal Bowers MD [address] [facility] [place] [address] Nephrology 03/10/22 Tamie Vazquez CNP [address] [place] [address] Dermatology 03/10/22 Lesia Frausto LSW Real Estate Firm Manager 04/09/22 Source Comments (unrecognize d section and content) In the event this informatio n is protected by the Federal Confidentiality of Alcohol and Drug Abuse Patient Records regulations: The Federal rules restrict any use of the information to criminally investigate or prosecute any alcohol or drug abuse patient.[facility] the event this information is protected by the Federal Confidentiality of Alcohol and Drug Abuse Patient Records regulations: The Federal rules restrict any use of the information to criminally investigate or prosecute any alcohol or drug abuse patient.[facility] the event this information is protected by the Federal Confidentiality of Alcohol and Drug Abuse Patient Records regulations: The Federal rules restrict any use of the information to criminally investigate or prosecute any alcohol or drug abuse patient.[facility] the event this information is protected by the Federal Confidentiality of Alcohol and Drug Abuse Patient Records regulations: The Federal rules restrict any use of the information to criminally investigate or prosecute any alcohol or drug abuse patient.[facility] the event this information is protected by the Federal Confidentiality of Alcohol and Drug Abuse Patient Records regulations: The Federal rules restrict any use of the information to criminally investigate or prosecute any alcohol or drug abuse patient.[facility] HospitalIn the event this information is protected by the Federal Confidentiality of Alcohol and Drug Abuse Patient Records regulations: The Federal rules restrict any use of the information to criminally investigate or prosecute any alcohol or drug abuse patient.[facility] the event this information is protected by the Federal Confidentiality of Alcohol and Drug Abuse Patient Records regulations: The Federal rules restrict any use of the information to criminally investigate or prosecute any alcohol or drug abuse patient.[facility] the event this information is protected by the Federal Confidentiality of Alcohol and Drug Abuse Patient Records regulations: The Federal rules restrict any use of the information to criminally investigate or prosecute any alcohol or drug abuse patient.[facility] the event this information is protected by the Federal Confidentiality of Alcohol and Drug Abuse Patient Records regulations: The Federal rules restrict any use of the information to criminally investigate or prosecute any alcohol or drug abuse patient.[facility] HospitalIn the event this information is protected by the Federal Confidentiality of Alcohol and Drug Abuse Patient Records regulations: The Federal rules restrict any use of the information to criminally investigate or prosecute any alcohol or drug abuse patient.[facility] HospitalIn the event this information is protected by the Federal Confidentiality of Alcohol and Drug Abuse Patient Records regulations: The Federal rules restrict any use of the information to criminally investigate or prosecute any alcohol or drug abuse patient.[facility] HospitalIn the event this information is protected by the Federal Confidentiality of Alcohol and Drug Abuse Patient Records regulations: The Federal rules restrict any use of the information to criminally investigate or prosecute any alcohol or drug abuse patient.[facility] HospitalIn the event this information is protected by the Federal Confidentiality of Alcohol and Drug Abuse Patient Records regulations: The Federal rules restrict any use of the information to criminally investigate or prosecute any alcohol or drug abuse patient.[facility] HospitalIn the event this information is protected by the Federal Confidentiality of Alcohol and Drug Abuse Patient Records regulations: The Federal rules restrict any use of the information to criminally investigate or prosecute any alcohol or drug abuse patient.[facility] HospitalIn the event this information is protected by the Federal Confidentiality of Alcohol and Drug Abuse Patient Records regulations: The Federal rules restrict any use of the information to criminally investigate or prosecute any alcohol or drug abuse patient.[facility] HospitalIn the event this information is protected by the Federal Confidentiality of Alcohol and Drug Abuse Patient Records regulations: The Federal rules restrict any use of the information to criminally investigate or prosecute any alcohol or drug abuse patient.[facility] HospitalIn the event this information is protected by the Federal Confidentiality of Alcohol and Drug Abuse Patient Records regulations: The Federal rules restrict any use of the information to criminally investigate or prosecute any alcohol or drug abuse patient.[facility] HospitalIn the event this information is protected by the Federal Confidentiality of Alcohol and Drug Abuse Patient Records regulations: The Federal rules restrict any use of the information to criminally investigate or prosecute any alcohol or drug abuse patient.[facility] HospitalIn the event this information is protected by the Federal Confidentiality of Alcohol and Drug Abuse Patient Records regulations: The Federal rules restrict any use of the information to criminally investigate or prosecute any alcohol or drug abuse patient.[facility] HospitalIn the event this information is protected by the Federal Confidentiality of Alcohol and Drug Abuse Patient Records regulations: The Federal rules restrict any use of the information to criminally investigate or prosecute any alcohol or drug abuse patient.[facility] HospitalIn the event this information is protected by the Federal Confidentiality of Alcohol and Drug Abuse Patient Records regulations: The Federal rules restrict any use of the information to criminally investigate or prosecute any alcohol or drug abuse patient.[facility] HospitalIn the event this information is protected by the Federal Confidentiality of Alcohol and Drug Abuse Patient Records regulations: The Federal rules restrict any use of the information to criminally investigate or prosecute any alcohol or drug abuse patient.[facility] HospitalIn the event this information is protected by the Federal Confidentiality of Alcohol and Drug Abuse Patient Records regulations: The Federal rules restrict any use of the information to criminally investigate or prosecute any alcohol or drug abuse patient.[facility] HospitalIn the event this information is protected by the Federal Confidentiality of Alcohol and Drug Abuse Patient Records regulations: The Federal rules restrict any use of the information to criminally investigate or prosecute any alcohol or drug abuse patient.[facility] HospitalIn the event this information is protected by the Federal Confidentiality of Alcohol and Drug Abuse Patient Records regulations: The Federal rules restrict any use of the information to criminally investigate or prosecute any alcohol or drug abuse patient.[facility] HospitalIn the event this information is protected by the Federal Confidentiality of Alcohol and Drug Abuse Patient Records regulations: The Federal rules restrict any use of the information to criminally investigate or prosecute any alcohol or drug abuse patient.[facility] HospitalIn the event this information is protected by the Federal Confidentiality of Alcohol and Drug Abuse Patient Records regulations: The Federal rules restrict any use of the information to criminally investigate or prosecute any alcohol or drug abuse patient.[facility] HospitalIn the event this information is protected by the Federal Confidentiality of Alcohol and Drug Abuse Patient Records regulations: The Federal rules restrict any use of the information to criminally investigate or prosecute any alcohol or drug abuse patient.[facility] HospitalIn the event this information is protected by the Federal Confidentiality of Alcohol and Drug Abuse Patient Records regulations: The Federal rules restrict any use of the information to criminally investigate or prosecute any alcohol or drug abuse patient.[facility] HospitalIn the event this information is protected by the Federal Confidentiality of Alcohol and Drug Abuse Patient Records regulations: The Federal rules restrict any use of the information to criminally investigate or prosecute any alcohol or drug abuse patient.[facility] HospitalIn the event this information is protected by the Federal Confidentiality of Alcohol and Drug Abuse Patient Records regulations: The Federal rules restrict any use of the information to criminally investigate or prosecute any alcohol or drug abuse patient.[facility] HospitalIn the event this information is protected by the Federal Confidentiality of Alcohol and Drug Abuse Patient Records regulations: The Federal rules restrict any use of the information to criminally investigate or prosecute any alcohol or drug abuse patient.[facility] HospitalIn the event this information is protected by the Federal Confidentiality of Alcohol and Drug Abuse Patient Records regulations: The Federal rules restrict any use of the information to criminally investigate or prosecute any alcohol or drug abuse patient.[facility] HospitalIn the event this information is protected by the Federal Confidentiality of Alcohol and Drug Abuse Patient Records regulations: The Federal rules restrict any use of the information to criminally investigate or prosecute any alcohol or drug abuse patient.[facility] HospitalIn the event this information is protected by the Federal Confidentiality of Alcohol and Drug Abuse Patient Records regulations: The Federal rules restrict any use of the information to criminally investigate or prosecute any alcohol or drug abuse patient.[facility] HospitalIn the event this information is protected by the Federal Confidentiality of Alcohol and Drug Abuse Patient Records regulations: The Federal rules restrict any use of the information to criminally investigate or prosecute any alcohol or drug abuse patient.[facility] HospitalIn the event this information is protected by the Federal Confidentiality of Alcohol and Drug Abuse Patient Records regulations: The Federal rules restrict any use of the information to criminally investigate or prosecute any alcohol or drug abuse patient.[facility] HospitalIn the event this information is protected by the Federal Confidentiality of Alcohol and Drug Abuse Patient Records regulations: The Federal rules restrict any use of the information to criminally investigate or prosecute any alcohol or drug abuse patient.[facility] HospitalIn the event this information is protected by the Federal Confidentiality of Alcohol and Drug Abuse Patient Records regulations: The Federal rules restrict any use of the information to criminally investigate or prosecute any alcohol or drug abuse patient.[facility] HospitalIn the event this information is protected by the Federal Confidentiality of Alcohol and Drug Abuse Patient Records regulations: The Federal rules restrict any use of the information to criminally investigate or prosecute any alcohol or drug abuse patient.[facility] HospitalIn the event this information is protected by the Federal Confidentiality of Alcohol and Drug Abuse Patient Records regulations: The Federal rules restrict any use of the information to criminally investigate or prosecute any alcohol or drug abuse patient.[facility] HospitalIn the event this information is protected by the Federal Confidentiality of Alcohol and Drug Abuse Patient Records regulations: The Federal rules restrict any use of the information to criminally investigate or prosecute any alcohol or drug abuse patient.[facility] HospitalIn the event this information is protected by the Federal Confidentiality of Alcohol and Drug Abuse Patient Records regulations: The Federal rules restrict any use of the information to criminally investigate or prosecute any alcohol or drug abuse patient.[facility] HospitalIn the event this information is protected by the Federal Confidentiality of Alcohol and Drug Abuse Patient Records regulations: The Federal rules restrict any use of the information to criminally investigate or prosecute any alcohol or drug abuse patient.[facility] HospitalIn the event this information is protected by the Federal Confidentiality of Alcohol and Drug Abuse Patient Records regulations: The Federal rules restrict any use of the information to criminally investigate or prosecute any alcohol or drug abuse patient.[facility] HospitalIn the event this information is protected by the Federal Confidentiality of Alcohol and Drug Abuse Patient Records regulations: The Federal rules restrict any use of the information to criminally investigate or prosecute any alcohol or drug abuse patient.[facility] HospitalIn the event this information is protected by the Federal Confidentiality of Alcohol and Drug Abuse Patient Records regulations: The Federal rules restrict any use of the information to criminally investigate or prosecute any alcohol or drug abuse patient.[facility] HospitalIn the event this information is protected by the Federal Confidentiality of Alcohol and Drug Abuse Patient Records regulations: The Federal rules restrict any use of the information to criminally investigate or prosecute any alcohol or drug abuse patient.[facility] HospitalIn the event this information is protected by the Federal Confidentiality of Alcohol and Drug Abuse Patient Records regulations: The Federal rules restrict any use of the information to criminally investigate or prosecute any alcohol or drug abuse patient.[facility] HospitalIn the event this information is protected by the Federal Confidentiality of Alcohol and Drug Abuse Patient Records regulations: The Federal rules restrict any use of the information to criminally investigate or prosecute any alcohol or drug abuse patient.[facility] HospitalIn the event this information is protected by the Federal Confidentiality of Alcohol and Drug Abuse Patient Records regulations: The Federal rules restrict any use of the information to criminally investigate or prosecute any alcohol or drug abuse patient.[facility] HospitalIn the event this information is protected by the Federal Confidentiality of Alcohol and Drug Abuse Patient Records regulations: The Federal rules restrict any use of the information to criminally investigate or prosecute any alcohol or drug abuse patient.[facility] FOR RECORDS PERTAINING TO PATIENTS WHO ARE OR HAVE BEEN ENROLLED IN A CHEMICAL DEPENDENCY/SUBSTANCEABUSE PROGRAM, SOME INFORMATION MAY BE OMITTED. This clinical summary was aggregated from multiple sources. Caution should be exercised in using it in the provision of clinical care. This summary normalizes information from multiple sources, and as a consequence, information in this document may materially change the coding, format and clinical context of patient data. In addition, data may be omitted in some cases. CLINICAL DECISIONS SHOULD BE BASED ON THE PRIMARY CLINICAL RECORDS. [employer] [facility]. provides no warranty or guarantee of the accuracy or completeness of information in this document.
[2023-10-27 06:51] LABS: Basophils Absolute Auto 0.1 10^3/uL (0.0-0.1); Basophils Percent Auto 0.5 % (0.2-2.0); Hematocrit 41.6 % (36.0-48.0); Hemoglobin 13.4 g/dL (12.0-16.0); Immature Granulocytes Abs Auto 0.12 10^3/uL (0.00-0.03); Immature Granulocytes Pct Auto 0.7 % (0.0-0.5); Lymphocytes Absolute Auto 1.5 10^3/uL (1.2-3.8); Lymphocytes Percent Auto 8.6 % (20.5-60.0); Mean Corpuscular HGB Conc 32.2 g/dL (29.9-35.2); Mean Corpuscular Hemoglobin 32.7 pg (26.7-34.0); Mean Corpuscular Volume 101.5 fL (81.0-99.0); Mean Platelet Volume 8.8 fL (9.5-13.5); Monocytes Absolute Auto 1.2 10^3/uL (0.3-0.8); Monocytes Percent Auto 6.8 % (1.7-12.0); Neutrophils Absolute Auto 14.8 10^3/uL (1.4-6.5); Neutrophils Percent Auto 83.4 % (43.0-75.0); Platelet Count 211 10^3/uL (150-450); Red Cell Distribution Width 13.8 % (11.0-15.0); White Blood Count 17.8 10^3/uL (4.0-11.0)
[2023-10-27 07:07] LABS: INR 1.14; Partial Thromboplastin Time 32.6 sec (22.3-36.2); Prothrombin Time 11.9 sec (9.0-11.6)
--- NOTE | 2023-10-27 07:08 | XR_ITS ---
The [address] [address] Patient Name: FELISAH DIALLO MRN: [id number] date: 1960 Sex: F Assigned Patient Location: ER Current Patient Location: ER Accession/Order Number: [id number] Exam Date: 10/27/2023 06:57 Report Date: 10/27/2023 07:26 At the request of: UKNAL MARKER Procedure: XR chest 1V EXAMINATION: XR chest 1V HISTORY: fever, cough COMPARISON: No relevant comparison available. TECHNIQUE: AP portable FINDINGS: LUNGS: Very low lung volumes. The lungs are grossly clear. VASCULATURE: No increased pulmonary vasculature. PLEURA: No pneumothorax, effusion, or pleural thickening. CARDIAC: Moderate cardiomegaly likely exacerbated by low lung volumes and rotation MEDIASTINUM: No visible mass or adenopathy. BONES: No fracture or visible bone lesion. OTHER: Negative. XR/XR chest 1V IMPRESSION: Low volume exam, grossly clear lungs Electronically authenticated by: ALTAGRACIA ANN Date: 10/27/2023 07:26
--- NOTE | 2023-10-27 07:08 | CT_ITS ---
The [address] [address] Patient Name: FELISHA DIALLO MRN: [id number] date: 1960 Sex: F Assigned Patient Location: ER Current Patient Location: ER Accession/Order Number: [id number] Exam Date: 10/27/2023 06:57 Report Date: 10/27/2023 07:30 At the request of: KUNAL MARKER Procedure: CT cervical spine wo con PROCEDURE: CT cervical spine wo con COMPARISON: None. HISTORY: fall, head inju TECHNIQUE: Axial, Coronal, and Sagittal CT images obtained without IV contrast. Dose reduction techniques were achieved by using automated exposure control and/or adjustment of mA and/or kV according to patient size and/or use of iterative reconstruction technique. FINDINGS: PARASPINAL AREA: Normal with no visible mass. DISCS: Upper to severe multilevel disc space narrowing most significant C5-C6 and C6-C7 BONES: Reversal of normal cervical lordosis. 4 mm anterolisthesis of C3 in relation to C4 related to facet osteoarthropathy. Moderate to severe degenerative spondylosis and facet osteoarthropathy throughout. OTHER: Negative. CT/CT cervical spine wo con IMPRESSION: Moderate to severe degenerative changes with reversal of cervical lordosis Electronically authenticated by: ALTAGRACIA ANN Date: 10/27/2023 07:30
--- NOTE | 2023-10-27 07:08 | CT_ITS ---
The [address] [address] Patient Name: FELISHA DIALLO MRN: [id number] date: 1960 Sex: F Assigned Patient Location: ER Current Patient Location: ER Accession/Order Number: [id number] Exam Date: 10/27/2023 06:57 Report Date: 10/27/2023 07:34 At the request of: KUNAL MARKER Procedure: CT head/brain wo con EXAMINATION: CT head/brain wo con, 10/27/2023 6:57 AM EDT HISTORY: fall, head injury COMPARISON: None. TECHNIQUE: CT scan of the head was performed without IV contrast. CT dose reduction technique was used, including Automated Exposure Control. FINDINGS: BRAIN: No acute hemorrhage or mass. Mild to moderate white matter hypoattenuation, chronic small vessel ischemic changes are favored CSF SPACES: No hydrocephalus, subarachnoid hemorrhage, or mass. Appropriate for age. SKULL: No fracture, mass, or other significant visible lesion. SINUSES: No significant mucosal thickening or fluid on the limited views. ORBITS: No appreciable abnormality on the limited views. OTHER: Negative CT/CT head/brain wo con IMPRESSION: Mild to moderate chronic white matter disease No acute abnormality Electronically authenticated by: ALTAGRACIA ANN Date: 10/27/2023 07:34
[2023-10-27 07:09] LABS: Alanine Aminotransferase 15 U/L (14-59); Albumin Globulin Ratio 0.8; Albumin Level 3.2 g/dL (3.4-5.0); Alkaline Phosphatase 74 U/L (46-116); Anion Gap 15.8; Aspartate Amino Transferase 16 U/L (15-37); BUN Creatinine Ratio 13.3; Bilirubin Total 1.5 mg/dL (0.2-1.0); Calcium 8.8 mg/dL (8.5-10.1); Chloride 102 mmol/L (98-107); Estimated GFR (African America 48 (>=60); Estimated GFR (Non-African Ame 40 (>=60); Globulin 3.8 g/dL; Glucose 156 mg/dL (74-106); Potassium 3.8 mmol/L (3.5-5.1); Sodium 138 mmol/L (136-145)
[2023-10-27 07:14] LABS: Lactate/Lactic Acid 2.5 mmol/L (0.4-2.0)
[2023-10-27] MEDS: ACETAMINOPHEN 325 MG TABLET 650 MG PO (07:15)
[2023-10-27] MEDS: 0.9 % SODIUM CHLORIDE 1,000 ML 999 ML IV (07:15)
[2023-10-27] MEDS: PIPERACILLIN SODIUM/TAZOBACTAM 3.375 GM in 0.9 % SODIUM CHLORIDE 50 ML IV (07:15)
[2023-10-27 07:21] LABS: Bilirubin Urine NEGATIVE (NEGATIVE); Blood Urine NEGATIVE (NEGATIVE); Clarity Urine CLEAR (CLEAR); Color Urine YELLOW (YELLOW); Glucose Urine UA >=1000 mg/dL (NEGATIVE); Ketones Urine TRACE mg/dL (NEGATIVE); Leukocyte Esterase Urine NEGATIVE (NEGATIVE); Nitrite Urine NEGATIVE (NEGATIVE); Protein Urine 100 mg/dL (NEG/TRACE); pH Urine 6.5 (5.0-9.0)
[2023-10-27 07:26] LABS: Urine Microscopic Indicated YES
[2023-10-27 07:28] LABS: Bacteria Urine MODERATE #/HPF (NONE SEEN); Crystals Seen? None Seen #/HPF (None Seen); Mucus Urine SMALL (NONE SEEN); RBC Urine NONE SEEN #/HPF (0-2); Squamous Epithelial Cell Urine FEW #/LPF (NONE/RARE); WBC Urine 0-2 #/HPF (NONE SEEN)
[2023-10-27 07:29] LABS: Cast Seen? SEEN #/LPF (NONE SEEN); Hyaline Casts Urine FEW; Urine Culture Indicated YES
[2023-10-27 08:08] LABS: PROCALCITONIN 4.23 ng/mL (0.00-0.50)
[2023-10-27] MEDS: VANCOMYCIN HCL 2,000 MG in 0.9 % SODIUM CHLORIDE 500 ML 250 MG IV (08:34)
[2023-10-27] MEDS: 0.9 % SODIUM CHLORIDE 1,000 ML 1000 ML IV (09:06)
--- NOTE | 2023-10-27 10:09 | CT_ITS ---
[address] [address] Patient Name: FELISHA DIALLO MRN: [id number] date: 1960 Sex: F Assigned Patient Location: ER Current Patient Location: ER Accession/Order Number: [id number] Exam Date: 10/27/2023 10:00 Report Date: 10/27/2023 10:34 At the request of: RAFAL TORRES Procedure: CT angio chest EXAMINATION: CT angio chest HISTORY: Shortness of breath COMPARISON: No relevant comparison available. TECHNIQUE: Multi-planar CT images were created with IV contrast. Axial, Coronal, and Sagittal images. Dose reduction techniques were achieved by using automated exposure control and/or adjustment of mA and/or kV according to patient size and/or use of iterative reconstruction technique. FINDINGS: LUNGS: Basilar opacities, atelectasis is favored PLEURA: No mass, effusion, or pneumothorax. VASCULATURE: Suboptimal opacification of the central pulmonary arterial tree. No filling defect to suggest a pulmonary embolus JULITO: No mass or adenopathy. MEDIASTINUM: No mass or adenopathy. CARDIAC: Global cardiomegaly. Pericardial effusion Coronary arteries: Moderate calcifications AORTA: Aneurysm of the ascending thoracic aorta measuring 7.2 x 8.3 cm at the aortic root, posterior contour deformity with contained contrast. Dissection of the aorta involving the entire ascending aorta, aortic arch, thoracic aorta and visualized abdominal aorta CHEST WALL: No mass or axillary adenopathy. BONES: No bone lesion or fracture. LIMITED ABDOMEN: Diffuse hypoattenuation the liver, hepatic steatosis OTHER: Findings discussed with emergency room physician Dr. Torres by telephone 10:[address]/CT angio chest IMPRESSION: 7.2 x 8.3 cm aneurysm of the ascending thoracic aorta Aortic dissection involving the entire visualized aorta, [place] A, [place] 1 Electronically authenticated by: ALTAGRACIA ANN Date: 10/27/2023 10:34
[2023-10-27] MEDS: 0.9 % SODIUM CHLORIDE 500 ML IV ×2 (10:20→11:00)
[2023-10-27] MEDS: METOPROLOL TARTRATE 5 MG/5 ML VIAL IVP ×3 (11:15→11:25)
== END 2023-10-27 11:35 | disposition short-term general hospital (02) ==
PROVIDERS: Emergency Medicine; Emergency Provider Emergency Medicine Emergency Medical Services
DX: L03.116 Cellulitis of left lower limb (principal); E66.01 Morbid (severe) obesity due to excess calories; Z85.89 Personal history of malignant neoplasm of other organs and systems; E11.40 Type 2 diabetes mellitus with diabetic neuropathy, unspecified; R29.6 Repeated falls; Z68.43 Body mass index [BMI] 50.0-59.9, adult; R82.90 Unspecified abnormal findings in urine; M79.605 Pain in left leg; M79.89 Other specified soft tissue disorders; R09.89 Other specified symptoms and signs involving the circulatory and respiratory systems; Z79.4 Long term (current) use of insulin
CPT/HCPCS: 36415; 51702; 70450; 71045; 71275; 72125; 80053; 81001; 83605; 84145; 85025; 85610; 85730; 87040; 87086; 93005; 93926; 93971; 96365; 96366; 96367; 96375; 99285; J2543; J3370; Q9967

== ENCOUNTER 2023-12-22 05:26 | Inpatient (IN) | payer MEDICARE, MEDICAID, SELFPAY ==
[2023-12-22] VITALS (37 sets, daily range): BP systolic 130–157; BP diastolic 58–88; PULSE 75–103; TEMP 36.4–36.9; O2SAT 91–100; BMI 50.1
--- NOTE | 2023-12-22 06:37 | ED_ITS ---
HPI HPI - Fall General Chief Complaint: Fall Stated Complaint: other Time Seen by Provider: 12/22/23 05:59 Source: patient and EMR Mode of arrival: ambulance Limitations: physical limitation History of Present Illness HPI Narrative: patient resides at home alone. Wheelchair dependent. Performs ADLs and sleeps in the wheel chair. Fell out of the chair this AM and not able to get up. Brought to the ER via Squad. On stretcher is difficult to arouse and belly breathing. Once she wakes up she is able to verbally communicate but is unaware of where she is and denies she is having any problems. Reportedly on the floor for a couple of hours Related Data Home Medications ?Medication ?Instructions ?Recorded ?Confirmed adalimumab 40 mg/0.4 mL 80 mg subcut Q14D 10/27/23 10/27/23 subcutaneous pen kit (Humira(CF) Pen) albuterol sulfate 90 mcg/actuation 2 puff inhalation Q4H PRN 10/27/23 10/27/23 aerosol inhaler shortness of breath or wheezing alprazolam 0.5 mg tablet 0.5 mg PO BID 10/27/23 10/27/23 dapagliflozin propanediol 5 mg 5 mg PO .once daily 10/27/23 10/27/23 tablet (Farxiga) famotidine 20 mg tablet 20 mg PO Q12H 10/27/23 10/27/23 fluconazole 150 mg tablet 150 mg PO 10/27/23 fluticasone 500 mcg-salmeterol 50 1 inh inhalation Q12H 10/27/23 10/27/23 mcg/dose blistr powdr for inhalation fluticasone propionate 50 1 spray intranasal Q12H 10/27/23 10/27/23 mcg/actuation nasal spray,suspension gabapentin 300 mg capsule 300 mg PO TID 10/27/23 10/27/23 glipizide 10 mg tablet, extended 10 mg PO BID 10/27/23 10/27/23 release 24 hr insulin glargine 100 unit/mL (3 65 unit subcut 10/27/23 mL) subcutaneous pen (Lantus Solostar U-100 Insulin) lamotrigine 100 mg tablet 100 mg PO Q12H 10/27/23 10/27/23 montelukast 10 mg tablet 10 mg PO .once a day 10/27/23 10/27/23 rosuvastatin 10 mg tablet 10 mg PO .once daily 10/27/23 10/27/23 sulfamethoxazole 400 1 tab PO BID 10/27/23 10/27/23 mg-trimethoprim 80 mg tablet tirzepatide 10 mg/0.5 mL 10 mg subcut 10/27/23 subcutaneous pen injector (Senthil) tolterodine 4 mg capsule,extended 4 mg PO .once dailly 10/27/23 10/27/23 release 24 hr topiramate 200 mg tablet 100 mg PO BID 10/27/23 umeclidinium 62.5 mcg/actuation 1 inh inhalation Q24H 10/27/23 10/27/23 blister powder for inhalation (Incruse Ellipta) venlafaxine 150 mg 150 mg PO BID 10/27/23 10/27/23 capsule,extended release 24 hr Allergies Allergy/AdvReac Type Severity Reaction Status Date / Time erythromycin base Allergy Intermediate swelling Verified 12/22/23 06:11 Opioid HPI Opioid Management Most Recent Pain and Opioid Data: 2 Last Pain Scale 5 10/27/23 08:15 Review of Systems 2 ROS0 Status of ROS unobtainable due to mental status [facility] Medical History (Updated 12/22/23 @ 06:53 by Sergio Sotelo MD) Diabetes ?E11.9 - Type 2 diabetes mellitus without complications (ICD-10) High cholesterol ?E78.00 - Pure hypercholesterolemia, unspecified (ICD-10) Urinary incontinence ?R32 - Unspecified urinary incontinence (ICD-10) Hidradenitis suppurativa ?L73.2 - Hidradenitis suppurativa (ICD-10) Bipolar 1 disorder, depressed, severe ?F31.4 - Bipolar disorder, current episode depressed, severe, without psychotic features (ICD-10) Asthma ?J45.909 - Unspecified asthma, uncomplicated (ICD-10) Sleep apnea ?G47.30 - Sleep apnea, unspecified (ICD-10) COPD (chronic obstructive pulmonary disease) ?J44.9 - Chronic obstructive pulmonary disease, unspecified (ICD-10) Kidney disease ?N28.9 - Disorder of kidney and ureter, unspecified (ICD-10) Exam Constitutional Vital Signs, click to edit/add: Last Vital Signs Temp 97.5 F L 12/22/23 06:00 Pulse 80 12/22/23 06:00 Resp 22 H 12/22/23 06:00 BP 143/65 H 12/22/23 06:00 Pulse Ox 98 12/22/23 06:30 O2 Del Method Nasal Cannula 12/22/23 06:30 O2 Flow Rate 3 12/22/23 06:30 Other: semi lethargic HENMT Common normals: normocephalic and head/scalp atraumatic Eye Common normals: EOMs intact bilaterally and conjunctivae normal Respiratory Effort & inspection: tachypneic Cardio Common normals: regular rate, regular rhythm, S1 normal heart sound and S2 normal heart sound GI Common normals: soft to palpation Other: old ecchymosis on her abdominal wall. gen. nonspecific tenderness Extremity Extremity image (front): 2 1. large paper tear 2. old lac with stitches in place Neuro Common normals: moves all extremities Sensorium/orientation: other (semi lethargic but will wake up with loud calling of her name) Course Vital Signs Vital signs: Vital Signs Temperature 97.5 F L 12/22/23 06:00 Pulse Rate 80 12/22/23 06:00 Respiratory Rate 22 H 12/22/23 06:00 Blood Pressure 143/65 H 12/22/23 06:00 Pulse Oximetry 98 12/22/23 06:00 Oxygen Delivery Method Nasal Cannula 12/22/23 06:00 Oxygen Delivery Flow Rate 4 12/22/23 06:00 Temperature 97.5 F L 12/22/23 06:00 Pulse Rate 80 12/22/23 06:00 Respiratory Rate 22 H 12/22/23 06:00 Blood Pressure 143/65 H 12/22/23 06:00 Pulse Oximetry 98 12/22/23 06:30 Oxygen Delivery Method Nasal Cannula 12/22/23 06:30 Oxygen Delivery Flow Rate 3 12/22/23 06:30 MDM - Fall MDM Narrative Medical decision making narrative: patient arrives from home after falling out of the wheelchair. She is wheelchair dependent. Reportedly on the floor for a couple of hours before Squad arrived. Has large paper cut left lala and blood in her hair but no obvious scalp lac. She has nonspecific tenderness of T-L spine and complains of lower back spasm(states this is not new). She is semi lethargic and hard to arouse but will wake up when her name is called with loud voice. POC BS 30. D50 and D10 ordered along with labs and Serra Scan CTs . will transfer care to [facility] physician Lab Data Labs: Lab Results 12/22/23 12/22/23 Range/Units 06:00 06:40 WBC 8.6 (4.0-11.0) 10^3/uL RBC 3.29 L (4.20-5.40) 10^6/uL Hgb 10.3 L (12.0-16.0) g/dL Hct 33.7 L (36.0-48.0) % MCV 102.4 H (81.0-99.0) fL MCH 31.3 (26.7-34.0) pg MCHC 30.6 (29.9-35.2) g/dL RDW 14.6 (11.0-15.0) % Plt Count 303 (150-450) 10^3/uL MPV 8.1 L (9.5-13.5) fL Neut % (Auto) 76.2 H (43.0-75.0) % Lymph % (Auto) 12.8 L (20.5-60.0) % [place] % (Auto) 9.0 (1.7-12.0) % Eos % (Auto) 0.2 L (0.9-7.0) % Baso % (Auto) 1.0 (0.2-2.0) % Neut # (Auto) 6.5 (1.4-6.5) 10^3/uL Lymph # (Auto) 1.1 L (1.2-3.8) 10^3/uL [place] # (Auto) 0.8 (0.3-0.8) 10^3/uL Eos # (Auto) 0.0 (0.0-0.7) 10^3/uL Baso # (Auto) 0.1 (0.0-0.1) 10^3/uL Abs Immat Gran (auto) 0.07 H (0.00-0.03) 10^3/uL Imm/Tot Granulo (auto) 0.8 H (0.0-0.5) % POC Glucose 30 L* (74-106) mg/dL Discharge Plan Discharge Chief Complaint: Fall Clinical Impression: Altered consciousness, Laceration of left leg, Accidental fall from chair Patient Disposition: Still a Patient Prescriptions / Home Meds: No Action dapagliflozin propanediol [Farxiga] 5 mg tablet 5 mg PO .once daily famotidine 20 mg tablet 20 mg PO Q12H fluconazole 150 mg tablet 150 mg PO fluticasone propion-salmeterol 500-50 mcg/dose blister with device 1 inh INHALATION Q12H fluticasone propionate 50 mcg/actuation spray,suspension 1 spray INTRANASAL Q12H gabapentin 300 mg capsule 300 mg PO TID glipizide 10 mg tablet extended release 24hr 10 mg PO BID insulin glargine [Lantus Solostar U-100 Insulin] 100 unit/mL (3 mL) insulin pen 65 unit SUBCUT lamotrigine 100 mg tablet 100 mg PO Q12H montelukast 10 mg tablet 10 mg PO .once a day rosuvastatin 10 mg tablet 10 mg PO .once daily sulfamethoxazole-trimethoprim 400-80 mg tablet 1 tab PO BID Mounjaro 10 mg/0.5 mL pen injector 10 mg SUBCUT tolterodine 4 mg capsule,extended release 24hr 4 mg PO .once dailly topiramate 200 mg tablet 100 mg PO BID venlafaxine 150 mg capsule,extended release 24hr 150 mg PO BID Humira(CF) Pen 40 mg/0.4 mL pen injector kit 80 mg SUBCUT Q14D alprazolam 0.5 mg tablet 0.5 mg PO BID albuterol sulfate 90 mcg/actuation HFA aerosol inhaler 2 puff INHALATION Q4H PRN (Reason: shortness of breath or wheezing) Incruse Ellipta 62.5 mcg/actuation blister with device 1 inh INHALATION Q24H Print Language: Samoan Referrals: SARA VALENTINO [Primary Care Provider] - 1 week
[2023-12-22 06:40] LABS: Basophils Absolute Auto 0.1 10^3/uL (0.0-0.1); Eosinophils Percent Auto 0.2 % (0.9-7.0); Hematocrit 33.7 % (36.0-48.0); Hemoglobin 10.3 g/dL (12.0-16.0); Immature Granulocytes Abs Auto 0.07 10^3/uL (0.00-0.03); Immature Granulocytes Pct Auto 0.8 % (0.0-0.5); Lymphocytes Absolute Auto 1.1 10^3/uL (1.2-3.8); Lymphocytes Percent Auto 12.8 % (20.5-60.0); Mean Corpuscular HGB Conc 30.6 g/dL (29.9-35.2); Mean Corpuscular Hemoglobin 31.3 pg (26.7-34.0); Mean Corpuscular Volume 102.4 fL (81.0-99.0); Mean Platelet Volume 8.1 fL (9.5-13.5); Monocytes Absolute Auto 0.8 10^3/uL (0.3-0.8); Neutrophils Absolute Auto 6.5 10^3/uL (1.4-6.5); Neutrophils Percent Auto 76.2 % (43.0-75.0); Platelet Count 303 10^3/uL (150-450); Red Blood Count 3.29 10^6/uL (4.20-5.40); Red Cell Distribution Width 14.6 % (11.0-15.0); White Blood Count 8.6 10^3/uL (4.0-11.0)
[2023-12-22 06:42] LABS: Glucometer 30 mg/dL (74-106)
--- OUTSIDE RECORDS SUMMARY | 2023-12-22 06:44 | XMS_ITS | CCD ---
Author Organization [facility] Care Team Providers Care Stockkeeper Name Role Phone BRODIE RESTREPO Sonu Unavailable Unavailable ELI HUNTER Unavailable Unavailable KAMIREDDY, ADIREDDY Unavailable Unavailable AHMAIndu SHOWKAT Unavailable Unavailable LISA TRAN K Unavailable Unavailable KAMIREDDY, ADIREDDY Unavailable Unavailable AVASTHI, DESTINEE Unavailable Unavailable DABOUL, ISAM Unavailable Unavailable Sarah Valentino Primary Care Provider [phone] Jarret Peterson Admit Provider Jarret Peterson Attending Provider [phone] Nellie Gilbert Unavailable Elissa, Hetal Unavailable MD Sarah Valentino Primary Care Provider MD Julián Ortiz Attending Provider Unavailable Primary Care Provider UnavailSarah Adair MD Primary Care Provider [phone] Baldemar Lu III Unavailable [phone] Elissa, Hetal Unavailable George CASTRO, Tamie A Unavailable Sarah Valentino MD Primary Care Provider [phone] Baldemar Lu III Unavailable Elissa, Hetal Unavailable George CASTRO, Tamie A Unavailable Unavailable Primary Care Provider UnavailLesia Hernandez Unavailable Unavailable PROVIDER, UNKNOWN Attending Unavailable PROVIDER, UNKNOWN Admitting Unavailable GRETCHEN CURRY Attending Unavailable GRETCHEN CURRY Admitting Unavailable VALENTINO, SARAH Primary Care Unavailable [...] Unavailable VALENTINO, SARAH Primary Care Unavailable HIGHLANDER, DAVION D Attending Unavailable HIGHLANDER, PETER D Admitting Unavailable VALENTINO, SARAH Primary Care Unavailable HIGHLANDER, PETER D Attending Unavailable HIGHLANDER, PETER D Admitting Unavailable HIGHLANDER, PETER D Attending Unavailable HIGHLANDER, PETER D Admitting Unavailable VALENTINO, SARAH Primary Care Unavailable HIGHLANDER, PETER D Attending Unavailable HIGHLANDER, PETER D Admitting Unavailable VALENTINO, SARAH Primary Care Unavailable VALENTINO, SARAH Primary Care Unavailable ANTOINETTE GRETCHEN Admitting Unavailable ANTOINETTE GRETCHEN Attending Unavailable VALENTINO, SARAH Primary Care Unavailable HIGHLANDER, PETER D Attending Unavailable HIGHLANDER, PETER D Admitting Unavailable HIGHLANDER, PETER D Admitting Unavailable HIGHLANDER, PETER D Attending Unavailable VALENTINO, SARAH Primary Care Unavailable VALENTINO, SARAH Primary Care Unavailable LIAT Taveras, DR HIDALGO Consulting Unavailable HAY ., DR HIDALGO Attending Unavailable LIAT Taveras, DR HIDALGO Admitting Unavailable PAM ., HEMANT Admitting Unavailable PAM Taveras, HEMANT Attending Unavailable VALENTINO, SARAH Primary Care Unavailable BEVERLEY, DR ERNIE Fontaine Consulting Unavailable PAM ., HEMANT Consulting Unavailable VALENTINO, SARAH Primary Care Unavailable HIGHLANDER, PETER D Attending Unavailable HIGHLANDER, PETER D Admitting Unavailable PAM HEMANT Taveras Attending Unavailable VALENTINO, SARAH Primary Care Unavailable PAM ., HEMANT Admitting Unavailable ROYCE ROSENTHAL Consulting Unavailable VALENTINO, SARAH Primary Care Unavailable WEST, DR ALTAGRACIA Car Consulting Unavailable WEST, DR ALTAGRACIA Car Attending Unavailable WEST, DR ALTAGRACIA Car Admitting Unavailable HIGHLANDER, PETER Indu Consulting Unavailable MARIANA ZAMORA Attending Unavailab le MARIANA ZAMORA Referring Unavailab le VALENTINO, SARAH Primary Care Unavailable MARIANA ZAMORA Referring Unavailab le VALENTINO, SARAH Primary Care Unavailable MARIANA ZAMORA Attending Unavailab MARIANA Potts Attending Unavailab le MARIANA ZAMORA Referring Unavailab le VALENTINO, SARAH Primary Care Unavailable Sarah Valentino MD Primary Care Provider HETAL BOWERS Attending Unavailable HETAL BOWERS Admitting Unavailable ELI HUNTER Referring Unavailable Sarah Valentino MD Primary Care Provider Hetal Bowers MD Unavailable Sarah Valentino MD Unavailable [phone] Sarah Valentino MD Primary Care Provider SARAH VALENTINO Attending Unavailable SARAH VALENTINO Attending Unavailable MAURO BATES Attending Unavailable MAURO BATES Attending Unavailable SARAH VALENTINO Attending Unavailable Chelsy CANALES Sarah Primary Care Provider [phone] DO Amrit Isaac Emergency Provider [phone] MD Chelsy Sarah Primary Care Provider Chelsy Sarah Primary Care Unavailable Amrit Isaac Attending Unavailable Amrit Isaac Admitting Unavailable PHYLLIS, XIAOYING Referring Unavailable BATH, SARAH Primary Care Unavailable SAMAME, SHIV Referring Unavailable VALENTINO, SARAH Primary Care Unavailable SHAREE SHIV Referring Unavailable AMIRAH LIPSCOMB Attending Unavailable VALENTINO, SARAH Primary Care Unavailable BATH, SARAH Primary Care Unavailable MARIANA ZAMORA Attending Unavailab le VALENTINO, SARAH Primary Care Unavailable MARIANA ZAMORA Attending Unavailab le VALENTINO, SARAH Primary Care Unavailable BENNIE PAYNE Attending Unavailable PHYLLIS, XIAOYING Referring Unavailable VALENTINO, SARAH Primary Care Unavailable MARIANA ZAMORA Attending Unavailab le VALENTINO, SARAH Primary Care Unavailable VALENTINO, SARAH Primary Care Unavailable PHYLLIS, XIAOYING Referring Unavailable PHYLLIS, XIAOYING Referring Unavailable VALENTINO, SARAH Primary Care Unavailable PHYLLIS, XIAOYING Attending Unavailable PHYLLIS, XIAOYING Admitting Unavailable VALENTINO, SARAH Primary Care Unavailable FRAN ESTEVES Referring Unavail able Allergies Allergy Classification Reported Allergen(s) Allergy Type Date of Onset Reaction(s) Facility Doxycycline (2 sources) Doxycycline Drug Allergy 10-20-19 Other: See Comments, [facility] Macrolides (antibiotic) (1 source) Azithromycin Drug Allergy 07-19-19 21 [facility] Unclassified (5 sources) erythromycin base Allergy to substance 10-20-19 Unknown Reaction, Unknown Reaction, Blurred vision [facility] (8 sources) Corticosteroids Propensity to adverse reactions 02-12-20 22 [facility] (20 sources) Doxycycline; Translations: [DOXYCYCLINE] Drug Allergy 10-20-19 Other: See Comments, [facility] (9 sources) Erythromycin; Translations: [erythromycin] Drug Allergy 05-13-19 18 [facility] Repository (20 sources) Azithromycin; Translations: [AZITHROMYCIN] Drug Allergy 07-19-19 21 [facility] (20 sources) Glucocorticoid preparation; Translations: [CORTICOSTEROIDS (GLUCOCORTICOIDS)] Drug Allergy 03-10-20 Unknown, [facility] (1 source) Azithromycin Drug Allergy 07-19-19 [facility] Repository (1 source) Corticosteroids Drug allergy (disorder) [facility] Repository (1 source) Corticosteroids and derivatives Drug Intolerance 02-26-[address] [facility] (1 source) House dust mite Allergy to substance 02-26-[address] [facility] (1 source) Mold Extract Drug Allergy 02-26-[address] [facility] (1 source) Prednisone Propensity to adverse reactions 09-22-[address] [facility] (1 source) Erythorbic Acid Propensity to adverse reactions 05-27-19 15 [facility] Medications Current Medications Medication Drug Class(es) Dates Sig (Normalized) Sig (Original) acetaminophen 325 mg oral tablet (20 sources) Start: 11-22-2023 take 2 tablets by mouth every six hours as needed acetaminophen (TYLENOL) 325 mg tablet Take 2 tablets by mouth every 6 hours as needed for pain. 11/22/2023 Active Start: 02-02-2022 End: 11-22-2023 acetaminophen (TYLENOL) 500 mg tablet Acetaminophen Active 1500 MG PO Daily February 02, 2022 12:00am 0 02/02/2022 11/22/2023 Discontinued Start: 02-02-2022 take 1500 mg by mout [...] / diphenhydrAMINE hydrochloride 25 mg oral tablet (13 sources) Histamine-1 Receptor Antagonist Start: End: take 2 tablets by mouth once daily at bedtime Diphenhydramine-Acet aminophen (Acetaminophen Pm) 25-500 mg Tablet Active 2 TAB PO Daily at bedtime February 02, 2022 12:00am Comment on above: 1 (one) time each da y at the same time. acetylcysteine 200 mg/ml inhalation solution (7 sources) Antidote, Mucolytic, Antidote for Acetaminophen Overdose Start: take 2 mL by inhalation twice daily acetylcysteine (MUCOMYST) 200 mg/mL (20 %) solution Inhale 2 mL as instructed two times a day. 11/22/2023 Active 0.4 ml adalimumab 100 mg/ml auto-injector (20 sources) Tumor Necrosis Factor Ezequiel Start: End: HUMIRA,CF, PEN 40 mg/0.4 mL pen kit 02/20/2022 Active Humira Pen 40 MG /0.8ML as directed Subcutaneous ONCE A WEEK Active Humira Pen 40 MG /0.8ML as directed Subcutaneous Active Advair Diskus 100-50 MCG/DOSE (1 source) Advair Diskus 100-50 MCG/DOSE 1 Inhalation every 12 hrs Active Advair Diskus 500-50 MCG/DOSE (5 sources) take 1 puff(s) by inhalation twice daily Advair Diskus 500-50 MCG/DOSE 1 puff Inhalation Twice a day Active [id number] 200 actuat albuterol 0.09 mg/actuat metered dose inhaler (20 sources) beta2-Adrenergic Agonist Start: 02-02-2022 Albuterol Sulfate Active 1 INH INHALATION Q4H February 02, 2022 12:00am Start: 01-11-2022 albuterol HFA (PROVENTIL HFA, VENTOLIN HFA) 90 mcg/actuation inhaler 01/11/2022 Active albuterol (5 MG/ ML) 0.5% nebulizer solution as directed Inhalation 0 Active take 2 puff(s) by mo uth every four hours as needed albuterol HFA 90 mcg/act inhaler Inhale 2 puffs by mouth every 4 hours as needed. for 16 0 Active Ventolin HFA 108 (90 Base) MCG/ACT 1 puff Inhalation prn Active albuterol 0.833 mg/ml / ipratropium bromide 0.167 mg/ml inhalation solution (14 sources) Anticholinergic, beta2-Adrenergic Agonist Start: 05-17-2016 ipratropium-albuterol (DUONEB) 0.5 mg-3 mg(2.5 mg base)/3 mL nebu q 6 HR. 05/17/2016 Active Comment on above: q 6 HR. Albuterol 90 MCG/ACT (7 sources) take 1 puff(s) by inhalation every four hours Albuterol 90 MCG/ACT 1 puff Inhalation every 4 hrs Active ALPRAZolam 0.25 mg oral tablet (20 sources) Benzodiazepine Start: 11-22-2023 End: 12-22-2023 take 0.5 tablet by mouth once daily as needed for anxiety ALPRAZolam (XANAX) 0.25 mg tablet Take 0.5 tablets by mouth once daily as needed for anxiety for up to 30 days. 11/22/2023 12/22/2023 Active Start: 01-09-2013 End: 11-22-2023 take 1 tablet by mouth twice daily Alprazolam (Xanax) 0.5 mg Tablet Active 0.5 MG PO Twice daily January 14, 2017 12:00am take 0.25 mg by mout h every twelve hours as needed ALPRAZolam (XANAX) 0.5 mg tablet Take 0.25 mg by mouth two times a day as needed. Active aluminum hydroxide 40 mg/ml / magnesium hydroxide 40 mg/ml / simethicone 4 mg/ml oral suspension (7 sources) Start: 11-22-2023 take 30 mL by mouth every four hours as needed aluminum-magnesium hydroxide-simethicone 200-200-20 mg/5 mL suspension Take 30 mL by mouth every 4 hours as needed (Second Line Therapy). 11/22/2023 Active aspirin 81 mg chewable tablet (7 sources) Platelet Aggregation Inhibitor, Nonsteroidal Anti-inflammatory Drug Start: 11-22-2023 take 1 tablet by mouth once daily aspirin 81 mg chewable tablet 1 tablet by ORAL/FEEDING TUBE route once daily. 11/22/2023 Active budesonide 0.25 mg/ml inhalation suspension (7 sources) Corticosteroid Start: 11-22-2023 budesonide (PULMICORT) 0.5 mg/2 mL nebulizer solution Use 4 mL via nebulizer two times a day. 11/22/2023 Active calcium carbonate 500 mg chewable tablet (7 sources) Start: 11-22-2023 take 500-1000 mg by mouth every eight hours as needed calcium carbonate (TUMS) 500 mg chew Take 1-2 tablets by mouth three times a day as needed (First Line Therapy). 11/22/2023 Active cephalexin 500 mg oral capsule (14 sources) Cephalosporin Antibacterial Start: 12-16-2023 take 500 mg by mouth twice daily Cephalexin Active 500 MG PO Twice daily 02 03December 16, 2023 12:00am Start: 08-31-2022 End: 07-08-2023 cephALEXin (KEFLEX) 500 mg c apsule Start: 03-04-2022 End: 03-18-2022 cephALEXin (KEFLEX) 500 mg c apsule chlorhexidine gluconate 40 m g/ml medicated liquid soap (14 sources) Start: 12-07-2022 chlorhexidine (HIBICLENS) 4 % external liquid Lather onto affected areas on the body and rinse, avoid face, once a week in the shower 12/07/2022 Active Start: 12-07-2022 chlorhexidine (Hibiclens) 4 % external liquid Indications: Hidradenitis suppurativa Lather onto affected areas on the body and rinse, avoid face, once a week in the shower 473 mL 11 12/07/2022 Active Comment on above: Lather onto affected areas on the body and rinse, avoid face, once a week in the shower cloNIDine hydrochloride 0.3 mg oral tablet (7 sources) Central alpha-2 Adrenergic Agonist Start: take 1 tablet by mouth every eight hours cloNIDine HCl (CATAPRES) 0.3 mg tablet Take 1 tablet by mouth every 8 hours. 11/22/2023 Active dapagliflozin 5 mg oral tablet (18 sources) Sodium-Glucose Cotransporter 2 Inhibitor Start: End: take 1 tablet by mouth once daily at breakfast dapagliflozin propanediol (FARXIGA) 5 mg tablet Take 1 tablet by mouth daily with breakfast. 11/22/2023 Active docusate sodium 100 mg oral capsule (14 sources) Start: take 1 capsule by mouth once daily as needed docusate sodium (COLACE) 100 mg capsule Take 1 capsule by mouth once daily as needed. 09/22/2022 Active Comment on above: Take 1 capsule by mo [facility] once daily as needed. docusate sodium 50 mg / sennosides, [facility] 8.6 mg oral tablet (7 sources) Start: take 2 tablets by mouth twice daily senna-docusate (SENNA-S) 8.6-50 mg per tablet Take 2 tablets by mouth two times a day. 11/22/2023 Active ergocalciferol 1.25 mg oral capsule (7 sources) Provitamin D2 Compound Start: take 1 capsule by mouth every week Ergocalciferol 1.25 MG (98954 UT) 1 capsule Orally Q week for 90 day(s) Dec, Active famotidine 20 mg oral tablet (20 sources) Histamine-2 Receptor Antagonist Start: famotidine (PEPCID) 20 mg tablet 02/25/2022 Active [facility]four [facility] Famotidine 20 MG 1 tablet at bedtime as needed Orally Once a day Active fluconazole 100 mg oral tablet (20 sources) Azole Antifungal Start: 04-07-2023 End: 10-20-2023 take 1 tablet by mouth every week fluconazole (Diflucan) 150 MG tablet Indications: Hidradenitis suppurativa Take 1 tablet (150 mg) by mouth 1 (one) time per week 4 tablet 6 04/07/2023 10/20/2023 Active Start: 02-25-2022 fluconazole (D IFLUCAN) 100 mg tablet one time a week. 02/25/2022 Active Start: 02-02-2022 End: 09-14-2023 take 1 tablet by mouth twice daily Fluconazole (Diflucan) 100 mg tablet Discontinued 100 MG PO 2 times daily February 02, 2022 11:46am September 14, 2023 3:47pm takes on Sundays Start: 10-30-2020 End: 02-02-2022 Fluconazole (Diflucan) 100 m g Tablet Discontinued 100 MG PO As Directed October 30, 2020 1:21pm February 02, 2022 11:46am take once daily for two weeks then go back to once a week until your circuit designer change it Start: 01-14-2017 End: 10-30-2020 take [...] fluticasone (F LONASE) 50 mcg/actuation nasal spray 02/16/2022 Active Start: 12-01-2012 take 2 spray(s) nasa l [...] puff every 12 (twelve) hours 1 each 11 06/02/2023 07/02/2023 Active Start: 02-16-2022 fluticasone-sa lmeterol (ADVAIR) 500-50 mcg/dose dsdv 02/16/2022 Active Start: 02-16-2022 fluticasone-sa lmeterol (ADVAIR) 500-50 [...] 1 puff Inhalation Once a day Active glipiZIDE 10 mg oral tablet (20 sources) Sulfonylurea Start: 11-22-19 take 2 tablets by mouth once daily before breakfast glipiZIDE (GLUCOTROL) 10 mg tablet Take 2 tablets (20 mg) by mouth daily before breakfast. 11/22/2023 Active Start: 05-24-2023 take 2 tablets by mo [facility] once daily at breakfast glipiZIDE XL (Glucotrol XL) 10 MG 24 hr tablet Indications: Type 2 diabetes mellitus with neurological manifestation (CMS/HCC) Take 2 tablets by mouth once daily with breakfast. 180 tablet 2 05/24/2023 Active Start: 02-25-2022 End: 11-22-2023 glipiZIDE (GLUCOTROL XL) 10m g 24 hr tablet Start: 02-02-2022 take 10 mg by mouth once daily Glipizide Active 10 MG PO Daily February 02, 2022 12:00am take 1 tablet by radha twice daily 30 minutes before breakfast glipiZIDE 10 MG 1 tablet 30 minutes before breakfast Orally TWICE A DAY Active take 1 tablet by radha once daily 30 minutes before breakfast glipiZIDE 5 MG 1 tablet 30 minutes before breakfast Orally Once a day Active 3 ml insulin glargine 100 unt/ml pen injector (20 sources) Insulin Analog Start: 09-14-2023 Insulin Glargi ne (Lantus Solostar U-100 Insulin) 100 unit/mL (3 mL) insulin pen Active UNIT SUBCUT September 14, 2023 12:00am FreeTextSig: as directed Subcutaneous 65 UNITS ONCE A DAY; Note: Source Status: Taking; Provider: Elissa Fong ( ) Start: 05-23-2023 End: 08-21-2023 insulin glargine (Lantus Merna oStar) 100 UNIT/ML pen Indications: Type 2 Diabetes Mellitus Inject 65 Units under the skin at bedtime 58.5 mL 0 05/23/2023 08/21/2023 Active Start: 03-05-2022 LANTUS SOLOSTA R U-100 INSULIN 100 unit/mL (3 mL) 65 Units. 03/05/2022 Active Start: 03-05-2022 LANTUS SOLOSTA R [...] % as directed Inhalation prn Active lamoTRIgine 100 mg oral tablet (20 sources) Mood Stabilizer, Anti-epileptic Agent Start: 02-16-2022 End: 11-22-2023 lamoTRIgine (LAMICTAL) 25 mg tablet Start: 01-14-2017 take 1 tablet by radha th twice daily lamoTRIgine (LAMICTAL) 100 mg tablet Take 1 tablet by mouth two times a day. 11/22/2023 Active LaMICtal 100 MG tablet every 12 (twelve) hours. 0 Active 3 ml liraglutide 6 mg/ml pen injector (20 sources) GLP-1 Receptor Agonist Start: 02-22-2023 inject 1.8 mg by subcutaneous injection at bedtime Victoza 18 MG/3ML injection Indications: Type 2 diabetes mellitus with diabetic neuropathic arthropathy, with long-term current use of insulin ([facility]) Inject 1.8 mg under the skin at bedtime. 27 mL 2 02/22/2023 Active Start: 10-19-2020 End: 07-08-2023 VICTOZA 3-NINFA 0.6 mg/0.1 mL (18 mg/3 mL) Start: 10-19-2020 End: 09-14-2023 Liraglutide (Victoza 3-Ninfa) 0.6 mg/0.1 mL (18 mg/3 mL) pen injector Discontinued 0.8 MG SUBCUT Daily October 19, 2020 12:00am September 14, 2023 3:43pm magnesium hydroxide 80 mg/ml oral suspension (5 sources) Start: 12-13-2023 take 30 mL by mouth once daily magnesium hydroxide (MOM) 400 mg/5 mL suspension Take 30 mL by mouth once daily. 12/13/2023 Active meloxicam 15 mg oral tablet (18 sources) Nonsteroidal Anti-inflammatory Drug Start: 01-14-2017 End: 09-14-2023 take 15 mg by mouth once daily Meloxicam Active 15 MG PO Daily September 14, 2023 12:00am Comment on above: Take 15 mg by mouth. miconazole nitrate 0.02 mg/mg topical powder (7 sources) Azole Antifungal Start: 11-22-2023 miconazole 2 % powder Apply 1 application to affected area two times a day. 11/22/2023 Active montelukast 10 mg oral tablet (20 sources) Leukotriene Receptor Antagonist Start: 01-14-2017 End: 05-27-2024 take 1 tablet by mouth once daily at bedtime montelukast (SINGULAIR) 10 mg tablet Take 1 tablet by mouth daily at bedtime. 11/22/2023 Active MULTIVITAMIN-ANTON US FUMARATE-FOLIC ACID 18 MG-400 MCG TABLET (7 sources) Start: 11-22-2023 take 1 tablet by mouth once daily at breakfast MULTIVITAMIN-FERR OUS FUMARATE-FOLIC ACID 18 MG-400 MCG TABLET Take 1 tablet by mouth daily with breakfast. 11/22/2023 Active Start: 11-22-2023 take 1 tablet by radha th once daily at breakfast MULTIVITAMIN-FERROUS FUMARATE-FOLIC ACID 18 MG-400 MCG TABLET Take 1 tablet by mouth daily with breakfast. 0 11/22/2023 Active pantoprazole 20 mg delayed release oral tablet (7 sources) Proton Pump Inhibitor Start: 11-22-2023 take 1 tablet by mouth once daily in the morning pantoprazole DR (PROTONIX) 20 mg tablet Take 1 tablet by mouth daily at 6 am. 11/22/2023 Active polyethylene glycol 3350 11442 mg powder for oral solution (20 sources) Osmotic Laxative Start: 11-22-2023 polyethylene glycol 3350 17 gram packet 1 Packet by ORAL/FEEDING TUBE route two times a day. Dissolve dose in 4 - 8 ounces of liquid and take as directed. 11/22/2023 Active Start: 05-12-2022 End: 11-22-2023 polyethylene glycol 3350 (ID RALAX) 17 gram/dose powder Take 17 g by mouth once daily. Dissolve dose in 4 - 8 ounces of liquid and take as directed. 235 g 2 05/12/2022 11/22/2023 Discontinued Comment on above: Take 17 g by mouth o nce daily. Dissolve dose in 4 - 8 ounces of liquid and take as directed. potassium chloride 20 meq powder for oral solution (5 sources) Start: 12-15-2023 End: 12-17-2023 take 40 mEq by mouth twice daily potassium chloride (KLOR-CON) 20 mEq packet Take 40 mEq by mouth two times a day for 2 days. 8 Packet 12/15/2023 12/17/2023 Active Start: 11-22-2023 End: 12-13-2023 take 1 tablet by mouth twice daily potassium chloride ER (KLOR-CON) 20 mEq tablet Take 1 tablet by mouth two times a day. 0 11/22/2023 12/13/2023 Discontinued (Course of therapy completed) rosuvastatin calcium 10 mg oral tablet (20 sources) HMG-CoA Reductase Inhibitor Start: 01-14-2017 End: 05-27-2024 rosuvastatin (CRESTOR) 10 mg tablet 02/25/2022 Active sodium bicarbonate 650 mg oral tablet (1 source) Start: 12-18-2020 take 1 tablet by mouth every eight hours Sodium Bicarbonate 650 MG 1 tab(s) Orally tid for 90 day(s) Nov, Active sulfamethoxazole 400 mg / trimethoprim 80 mg oral tablet (20 sources) Dihydrofolate Reductase Inhibitor Antibacterial, Sulfonamide Antimicrobial Start: 11-22-2023 take 1 tablet by mouth every twelve hours sulfamethoxazole- trimethoprim (BACTRIM) 400-80 mg per tablet Take 1 tablet by mouth every 12 hours. 11/22/2023 Active Start: 02-25-2022 End: 07-08-2023 sulfamethoxazole-trimethopri m (BACTRIM DS,SEPTRA DS) 800-160 mg per tablet Start: 02-02-2022 take 1 tablet by radha th once daily Sulfamethoxazole-Trimethoprim Active 160 TAB PO [...] 19, 2020 12:00am October 30, 2020 1:04pm Tirzepatide (2 sources) Start: 09-14-2023 Tirzepatide (M ounjaro) 7.5 mg/0.5 mL pen injector Active 7.5 MG SUBCUT every week September 14, 2023 12:00am tirzepatide (MOUNJARO) 10 mg/0.5 mL pen injector (7 sources) Start: 11-22-2023 inject 10 mg by subcutaneous injection every week tirzepatide (MOUNJARO) 10 mg/0.5 mL pen injector Inject 10 mg subcutaneously one time a week. 11/22/2023 Active Start: 11-22-2023 inject 10 mg by subc utaneous injection every week tirzepatide (MOUNJARO) 10 mg/0.5 mL pen injector Inject 10 mg subcutaneously one time a week. 0 11/22/2023 Active 24 hr tolterodine tartrate 4 mg extended release oral capsule (20 sources) Cholinergic Muscarinic Antagonist Start: 02-22-2023 take 1 capsule by mouth once daily tolterodine LA (Detrol LA) 4 MG 24 hr capsule Indications: Overactive bladder Take 1 capsule by mouth once daily. 30 capsule 10 02/22/2023 Active Start: 02-25-2022 tolterodine ER (DETROL LA) 4 mg 24 hr capsule 02/25/2022 Active Start: 10-19-2020 End: 10-30-2020 take 4 mg by mouth once daily Tolterodine Discontinued 4 MG PO Daily October 19, 2020 12:00am October 30, 2020 1:04pm topiramate 200 mg oral tablet (20 sources) Start: 02-25-2022 End: 11-22-2023 take 1 tablet by mouth twice daily topiramate (TOPAMAX) 200 mg tablet Take 1 tablet by mouth two times a day. 11/22/2023 Active Start: 02-02-2022 take 100 mg by mouth [...] 2020 1:04pm take 2 tablets by mo ut twice daily Topamax 50 mg 2 tabs orally Twice a day Active take 4 tablets by mo uth twice daily Topamax 50 mg 4 tabs orally Twice a day Active torsemide 20 mg oral tablet (7 sources) Loop Diuretic Start: 11-22-2023 take 2 tablets by mouth once daily torsemide (DEMADEX) 20 mg tablet Take 2 tablets by mouth once daily. 11/22/2023 Active Tylenol PM Extra Strength 500-25 MG (4 sources) take 2 tablets by mouth once daily at bedtime as needed Tylenol PM Extra Strength 500-25 MG 2 tablet at bedtime as needed Orally Once a day for 30 day(s) Active 7 actuat umeclidinium 0.0625 mg/actuat dry powder inhaler (20 sources) Anticholinergic Start: 05-24-2023 take 1 puff(s) by mouth once daily Umeclidinium [place] (Incruse Ellipta) 62.5 MCG/ACT aerosol powder Indications: Chronic obstructive pulmonary disease, unspecified COPD type (CMS/HCC) Inhale 1 puff by mouth once daily. 30 each 3 05/24/2023 Active Start: 01-14-2017 take 62.5 ug by inha lation every twenty-four hours Umeclidinium (Incruse Ellipta) 62.5 mcg/actuation Blister With Device Active 1 INH INHALATION Q24H January 14, 2017 3:33pm Start: 01-14-2017 take 1 puff(s) by in halation once daily umeclidinium (INCRUSE ELLIPTA) 62.5 mcg/actuation inhaler Inhale 1 Puff as instructed once daily. 01/14/2017 Active Start: 01-14-2017 take 62.5 ug [...] (EFFEXOR XR) 150 mg 24 hr capsule 02/25/2022 Active Start: 10-30-2020 End: 02-02-2022 take 1 capsule [...] Start: 11-07-2007 take 1 capsule by mo uth twice daily Venlafaxine (Effexor Xr) 150 mg Capsule,Extended Release 24hr Active 150 MG PO Twice daily February 02, 2022 12:00am Completed/Discontinued Medications Medication Drug Class(es) Dates Sig (Normalized) Sig (Original) amiodarone hydrochloride 200 mg oral tablet (3 sources) Antiarrhythmic Start: 11-23-2023 End: 12-13-2023 take 1 tablet by mouth once daily amiodarone (PACERONE) 200 mg tablet Take 1 tablet by mouth once daily for 13 doses. 13 tablet 0 11/23/2023 12/13/2023 Discontinued (Course of therapy completed) benzocaine 6 mg / menthol 10 mg oral lozenge (3 sources) Standardized Chemical Allergen Start: 11-22-2023 End: 12-13-2023 benzocaine-mentho l (CHLORASEPTIC) 6-10 mg lozenges Take 1 Lozenge by mouth every 2 hours as needed. 0 11/22/2023 12/13/2023 Discontinued (Course of therapy completed) bisacodyl 10 mg rectal suppository (8 sources) Stimulant Laxative Start: 11-22-2023 End: 12-13-2023 bisacodyl (DULCOLAX) 10 mg supp 1 Suppository by RECTAL route once daily as needed. 0 11/22/2023 12/13/2023 Discontinued (Course of therapy completed) Bisacodyl (DULCO LAX) 5 mg tab Take 5 mg by mouth as needed for constipation. Active carboxymethylcellulose 0.01 mg/mg ophthalmic gel (3 sources) Start: 11-22-2023 End: 12-13-2023 carboxymethylcellulose sodium (CELLUVISC) 1 % dlgl Use 1-2 Drops in both eyes as needed. 0 11/22/2023 12/13/2023 Discontinued (Course of therapy completed) clotrimazole 10 mg/ml topical cream (10 sources) [...] 40 mg tablet take 1 tablet by radha once daily as needed Furosemide 20 MG 1 tablet Orally Once a day PRN for 90 days Not-Taking take 1 tablet by mouth once fercho y Furosemide 40 MG Take 1 tablet by mouth daily. for 90 Active gabapentin 300 mg oral capsule (18 sources) Anti-epileptic Agent Start: 06-14-2023 End: 11-22-2023 gabapentin (NEURONTIN) 300 mg capsule Start: 12-21-2022 take 1 capsule by mo [facility] three times daily gabapentin (Neurontin) 300 MG capsule Indications: Type 2 diabetes mellitus with neurological manifestation (CMS/HCC) Take 1 capsule by mouth three times daily. 90 capsule 10 12/21/2022 Active Start: 01-14-2017 take 300 mg by mouth every eight hours Gabapentin Active 300 MG PO Q8H January 14, 2017 12:00am 12 hr guaiFENesin 600 mg extended release oral tablet (3 sources) Start: 11-22-2023 End: 12-13-2023 take 1 tablet by mouth every twelve hours as needed for cough guaiFENesin (MUCINEX) 600 mg 12 hr tablet Take 1 tablet by mouth every 12 hours as needed (cough). 0 11/22/2023 12/13/2023 Discontinued (Course of therapy completed) 1 ml heparin sodium, porcine 5000 unt/ml injection (3 sources) Unfractionated Heparin, Anti-coagulant Start: 11-22-2023 End: 12-13-2023 inject 1.5 mL by subcutaneous injection every eight hours heparin 5,000 unit/mL injection Inject 1.5 mL subcutaneously every 8 hours. 0 11/22/2023 12/13/2023 Discontinued (Course of therapy completed) lidocaine vaginal cream 5% (CPD) (20 sources) Start: 05-25-2022 End: 07-08-2023 lidocaine vaginal cream 5% (CPD) Use vaginally as directed. 20 g 0 05/25/2022 07/08/2023 Discontinued Start: 05-25-2022 lidocaine vagi nal cream 5% (CPD) Use vaginally as directed. 20 g 0 05/25/2022 Active Start: 05-24-2022 End: 05-24-2022 lidocaine vaginal cream 5% ( CPD) Use vaginally as directed. 20 g 0 05/24/2022 05/24/2022 Discontinued Comment on above: Use vaginally as dir ected. lisinopril 10 mg oral tablet (4 sources) Angiotensin Converting Enzyme Inhibitor Start: 7 End: 1 take 2.5 mg by mouth once daily Lisinopril Discontinued 2.5 MG PO Daily January 14, 2017 12:00am October 30, 2020 1:04pm melatonin 3 mg oral tablet (20 sources) Start: 4 End: 4 take 2 tablets by mouth once daily at bedtime melatonin 3 mg tablet Take 2 tablets by mouth daily at bedtime. 0 11/22/2023 12/13/2023 Discontinued (Course of therapy completed) Start: 02-02-2022 End: 09-14-2023 take 5 mg by mouth once daily at bedtime Melatonin Discontinued 5 MG PO Daily at bedtime February 02, 2022 12:00am September 14, 2023 3:43pm take 1 tablet by radha every twenty-four hours Melatonin 3 MG 1 tablet at bedtime as needed Orally Once a day Active Comment on above: Melatonin Active 5 M G PO Daily at bedtime February 02, 2022 12:00am metFORMIN hydrochloride 1000 mg / SITagliptin 50 mg oral tablet (4 sources) Biguanide, Dipeptidyl Peptidase 4 Inhibitor Start: 7 End: 1 take 1 tablet by mouth twice daily Sitagliptin Phos-Metformin (Janumet) 50-1,000 mg Tablet Discontinued 1 TAB PO Twice daily January 14, 2017 12:00am October 30, 2020 1:04pm minocycline 50 mg oral capsule (4 sources) Tetracycline-class Drug Start: 4 End: 4 minocycline (MINOCIN, DYNACIN) 50 mg capsule Start: 06-01-2023 take 1 capsule by [facility] twice daily minocycline 50 MG capsule Indications: [...] topical cream (20 sources) Sulfonamide Antibacterial Start: 3 End: silver sulfADIAZINE (SILVADENE) 1 % cream Apply to area of skin breakdown twice daily and use moisturizer everywhere else. Test on small unaffected area first for reaction. 400 g 0 06/14/2022 07/08/2023 Discontinued Comment on above: Apply to area of ski n breakdown twice daily and use moisturizer everywhere else. Test on small unaffected area first for reaction. SITagliptin 25 mg oral tablet (4 sources) Dipeptidyl Peptidase 4 Inhibitor Start: 1 End: 2 take 25 mg by mouth once daily Sitagliptin Phosphate Discontinued 25 MG PO Daily October 30, 2020 12:00am February 02, 2022 11:56am tirzepatide (MOUNJARO) 7.5 mg/0.5 mL pen injector (3 sources) Start: 4 End: 4 tirzepatide (MOUNJARO) 7.5 mg/0.5 mL pen injector Inject 7.5 mg subcutaneously. 0 07/05/2023 10/25/2023 Discontinued Start: 07-05-2023 tirzepatide (M OUNJARO) 7.5 mg/0.5 mL pen injector Inject 7.5 mg subcutaneously. 0 07/05/2023 Active Comment on above: Inject 7.5 mg subcut aneously. traMADol hydrochloride 50 mg oral tablet (8 sources) Opioid Agonist Start: 3 End: 3 take 1 tablet by mouth every six [...] 09-21-2022 Chronic Acute and unspecified renal failure (14 sources) Injury of kidney; Translations: [Acute kidney failure, unspecified] Onset: 4 10-20-2020 Episodic Acute posthemorrhagic anemia (9 sources) Acute posthemorrhagic anemia; Translations: [Acute posthemorrhagic anemia] Onset: 4 10-27-2023 Episodic Administrative/social admission (12 sources) Other reduced mobility; Translations: [Impaired mobility and activities of daily living] Onset: 4 10-30-2020 Episodic Aortic; peripheral; and visceral artery aneurysms (20 sources) Type I dissection of thoracic aorta; Translations: [Type 1 dissection of ascending aorta] Onset: 4 10-27-2023 Chronic Asthma (17 sources) Acute severe exacerbation of asthma; Translations: [Bronchial asthma with status asthmaticus] Onset: 4 10-27-2023 Chronic Calculus of urinary tract (5 sources) Calculus of kidney; Translations: [Kidney stone] Onset: 8 10-30-2020 Episodic Cancer of other female genital organs (20 sources) Malignant tumor of vulva; Translations: [Malignant neoplasm of vulva, unspecified] Onset: 2 Chronic Cancer; other and unspecified primary (1 source) Personal history of malignant neoplasm of other organs and systems; Translations: [PERS HX MALIG NEOPLASM OTH ORGN AND SYS] Onset: 3 Episodic Cardiac dysrhythmias (11 sources) Atrial fibrillation; Translations: [Unspecified atrial fibrillation] Onset: 4 11-03-2023 Chronic Chronic kidney disease (20 sources) Chronic kidney disease stage 1; Translations: [CKD Stage I (GFR>90)] Onset: 1 Resolved: 3 09-21-2022 Chronic Chronic kidney disease (10 sources) Chronic kidney disease; Translations: [Chronic kidney disease, stage III (moderate)] Onset: 2 Resolved: 2 Chronic obstructive pulmonary disease and bronchiectasis (20 sources) Chronic obstructive lung disease; Translations: [Chronic obstructive pulmonary disease, unspecified] Onset: 7 Chronic Chronic obstructive pulmonary disease and bronchiectasis (1 source) Chronic obstructive pulmonary disease and bronchiectasis; Translations: [COPD with asthma (HCC)] Onset: 4 Chronic ulcer of skin (20 sources) Ulcer; Translations: [Ulcerative lesion] Onset: 2 01-17-2017 Chronic Coagulation and hemorrhagic disorders (18 sources) Blood coagulation disorder; Translations: [Coagulation defect, unspecified] Onset: 4 10-27-2023 Chronic Complications of surgical procedures or medical care (16 sources) Postprocedural respiratory failure; Translations: [Acute postprocedural respiratory failure] Onset: 8 11-05-2022 Episodic Deficiency and other anemia (7 sources) Anemia of renal disease; Translations: [Anemia in chronic kidney disease] Chronic Diabetes mellitus with complications (20 sources) Diabetic peripheral neuropathy; Translations: [Diabetic peripheral neuropathy] Onset: 5 Resolved: 2 Chronic Diabetes mellitus without complication (13 sources) Diabetes mellitus; Translations: [Type 2 diabetes mellitus without complications] Onset: 5 01-17-2017 Chronic Disorders of lipid metabolism (20 sources) Hyperlipidemia; Translations: [Hyperlipidemia NOS] Onset: 3 Chronic E Codes: Fall (4 sources) Unspecified fall, initial encounter; Translations: [Accident due to mechanical fall without injury] Onset: 2 11-11-2020 Episodic Essential hypertension (16 sources) Essential (primary) hypertension; Translations: [Benign essential hypertension] Onset: 8 09-21-2022 Chronic Fluid and electrolyte disorders (20 sources) Acidosis; Translations: [Metabolic acidosis] Onset: 2 Resolved: 2 Episodic Gastrointestinal hemorrhage (14 sources) Acute gastrointestinal hemorrhage; Translations: [Gastrointestinal hemorrhage, unspecified] Onset: 8 Episodic Genitourinary symptoms and ill-defined conditions (1 source) Urge incontinence of urine; Translations: [Urge incontinence] Onset: 3 09-21-2022 Chronic Genitourinary symptoms and ill-defined conditions (3 sources) Dysuria; Translations: [Dysuria] Episodic Headache; including migraine (10 sources) Migraine; Translations: [Migraine, unspecified, not intractable, without status migrainosus] Onset: 4 10-27-2023 Chronic Hemorrhoids (3 sources) Hemorrhoids; Translations: [Unspecified hemorrhoids] 10-30-2020 Episodic Hypertension with complications and secondary hypertension (17 sources) Chronic kidney disease due to hypertension; Translations: [Hypertensive chronic kidney disease with stage 1 through stage 4 chronic kidney disease, or unspecified chronic kidney disease] Onset: 2 Resolved: 2 Chronic Intestinal obstruction without hernia (5 sources) Small bowel obstruction; Translations: [Unspecified intestinal obstruction, unspecified as to partial versus complete obstruction] Onset: 8 05-12-2017 Episodic Menopausal disorders (1 source) Menopausal symptom; Translations: [Menopausal and female climacteric states] Onset: 3 09-21-2022 Chronic Miscellaneous mental health disorders (14 sources) Primary insomnia; Translations: [Primary insomnia] Onset: 3 09-21-2022 Chronic Mood disorders (20 sources) Recurrent major depression; Translations: [Major depressive disorder, recurrent episode, unspecified] Onset: 8 09-21-2022 Chronic Mycoses (6 sources) Candidiasis of the esophagus; Translations: [Candidal esophagitis] 10-21-2020 Episodic Nutritional deficiencies (9 sources) Undernutrition; Translations: [Mild protein-calorie malnutrition] Onset: 4 11-02-2023 Chronic Nutritional deficiencies (3 sources) Iron deficiency; Translations: [IRON DEFICIENCY] Onset: 2 Resolved: 2 Episodic Open wounds of extremities (1 source) Laceration of lower limb; Translations: [Laceration without foreign body, left lower leg, initial encounter] 12-16-2023 Episodic Other aftercare (5 sources) History of malignant neoplasm of vulva; Translations: [Encounter for follow-up examination after completed treatment for malignant neoplasm] Episodic Other aftercare (1 source) Other long-term (current) drug therapy; Translations: [OTH SNF CURRENT DRUG THERAPY] Onset: 3 Episodic Other aftercare (1 source) Surgical follow-up; Translations: [Encounter for follow-up examination after completed treatment for conditions other than malignant neoplasm] 12-13-2023 Episodic Other aftercare (1 source) Encounter for follow-up examination after completed treatment for conditions other than malignant neoplasm; Translations: [Surgery follow-up] Onset: 4 Episodic Other and ill-defined heart disease (1 source) Heart disease, unspecified; Translations: [Heart disease] Onset: 4 Chronic Other circulatory disease (1 source) Disorder of arteries and arterioles, unspecified; Translations: [Disorder of artery or arteriole (HCC)] Onset: 4 Chronic Other circulatory disease (12 sources) Low blood pressure; Translations: [Hypotension, unspecified] Onset: 4 10-20-2020 Episodic Other diseases of kidney and ureters (20 sources) Secondary hyperparathyroidism; Translations: [Secondary hyperparathyroidism of [...] lower extremity; Translations: [CHRON VENOUS HTN W/ULCER JACK LW EXT] Onset: 2 Chronic Other diseases of veins and lymphatics (9 sources) Venous insufficiency of leg; Translations: [Other specified disorders of veins] Onset: 4 10-27-2023 Episodic Other ear and sense organ disorders (1 [...] 3 09-21-2022 Chronic Other nervous system disorders (14 sources) Chronic pain syndrome; Translations: [Chronic pain syndrome] Onset: 3 09-21-2022 Chronic Other nervous system disorders (1 source) Chronic pain; Translations: [Other chronic pain] Onset: 3 09-21-2022 Chronic Other nervous system disorders (14 sources) Polyneuropathy; Translations: [Polyneuropathy, unspecified] Onset: 3 09-21-2022 Chronic Other nervous system disorders (9 sources) Postoperative pain ; Translations: [Other acute postprocedural pain] Onset: 4 10-27-2023 Episodic Other nervous system disorders (1 source) Other acute postprocedural pain; Translations: [Postoperative pain] Onset: 4 Episodic Other non-traumatic joint disorders (1 source) Other specified arthritis, unspecified site; Translations: [OTHER SPECIFIED ARTHRITIS UNS SITE] Onset: 3 Chronic Other non-traumatic joint disorders (3 sources) Pain in unspecified knee; Translations: [Acute knee pain] 11-11-2020 Episodic Other nutritional; endocrine; and metabolic disorders (4 sources) Obesity; Translations: [Obesity, unspecified] 01-17-2017 Chronic Other nutritional; endocrine; and metabolic disorders (11 sources) Morbid obesity; Translations: [Morbid obesity] Onset: 8 07-08-2023 Chronic Other nutritional; endocrine; and metabolic disorders (2 sources) Severe obesity; Translations: [Morbid (severe) obesity due to excess calories] Chronic Other nutritional; endocrine; and metabolic disorders (1 source) Obesity caused by energy imbalance; Translations: [Morbid (severe) obesity due to excess calories] Onset: 3 09-21-2022 Chronic Other nutritional; endocrine; and metabolic disorders (10 sources) Body mass index 40+ - severely obese; Translations: [Morbid (severe) obesity due to excess calories] Onset: 6 12-30-2022 Chronic Other nutritional; endocrine; and metabolic disorders (3 sources) Excess panniculus of abdomen; Translations: [Localized adiposity] 06-22-2023 Chronic Other skin disorders (10 sources) Hidradenitis; Translations: [Hidradenitis suppurativa] Onset: 4 10-27-2023 Episodic Other upper respiratory disease (1 source) Seasonal allergic rhinitis; Translations: [Other seasonal allergic rhinitis] Onset: 3 09-21-2022 Chronic Pleurisy; pneumothorax; pulmonary collapse (10 sources) Atelectasis; Translations: [Atelectasis] Onset: 4 10-27-2023 Episodic Residual codes; unclassified (20 sources) Sleep apnea; Translations: [Sleep apnea] Onset: [...] Onset: 1 11-05-2022 Chronic Residual codes; unclassified (2 sources) Localized edema; Translations: [LOCALIZED EDEMA] Onset: 3 Episodic Residual codes; unclassified (10 sources) Sleep disorder; Translations: [Sleep disorder, unspecified] Onset: 4 10-27-2023 Episodic Residual codes; unclassified (9 sources) Difficult venous access; Translations: [Other specified health status] Onset: 4 11-03-2023 Episodic Residual codes; unclassified (1 source) Other specified health status; Translations: [Difficult intravenous access] Onset: 4 Episodic Respiratory failure; insufficiency; arrest (adult) (20 sources) Acute on chronic hypoxemic and hypercapnic respiratory failure; Translations: [Acute and chronic respiratory failure with hypoxia] Onset: 8 Resolved: 4 11-05-2022 Chronic Screening and history of mental health and substance abuse codes (11 sources) Ex-smoker; Translations: [Personal history of nicotine dependence] Onset: 4 10-27-2023 Episodic Skin and subcutaneous tissue infections (3 sources) Cutaneous abscess of abdominal wall; Translations: [Cellulitis of abdominal wall] Onset: 2 Episodic Substance-related disorders (13 sources) Moderate smoker (20 or less per day) ; Translations: [Nicotine dependence, cigarettes, uncomplicated] Onset: 5 Chronic Unclassified (1 source) Unspecified intestinal obstruction, unspecified as to partial versus complete obstruction; Translations: [Unspecified intestinal obstruction, unspecified as to partial versus complete obstruction] Onset: 8 Unclassified (1 source) CHRN KIDNEY DISEASE STG 3 UNSP; Translations: [CHRN KIDNEY DISEASE STG 3 UNSP] Onset: 3 Unclassified (1 source) Dissection of ascending aorta (HCC); Translations: [Dissection of ascending aorta (HCC)] Onset: 4 Unclassified (1 source) 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); Translations: [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)] Onset: 4 Unclassified (1 source) Dissection of thoracic aorta, unspecified part (HCC); Translations: [Dissection of thoracic aorta, unspecified part (HCC)] Onset: 4 Urinary tract infections (5 sources) Urinary tract infection, site not specified; Translations: [Acute urinary tract infection] Onset: 8 05-12-2017 Episodic Past or Other Problems Problem Classification Problem Date Documented Date Episodic/Chronic Abdominal hernia (1 source) Obstructed hernia of anterior abdominal wall; Translations: [Other and unspecified ventral hernia with obstruction, without gangrene] Onset: 05-13-2017 11-05-2022 Episodic Abdominal pain (1 source) Vulval pain; Translations: [Pelvic and perineal pain] Onset: 12-28-2013 11-05-2022 Episodic Cancer of other female genital organs (2 sources) Personal history of malignant neoplasm of other female genital organs; Translations: [Encounter for follow-up surveillance of vulvar cancer] Onset: 09-30-2022 Episodic Cardiac dysrhythmias (1 source) Tachycardia, unspecified; Translations: [Tachycardia, unspecified] Onset: 05-13-2017 Episodic Complications of surgical procedures or medical care (9 sources) Cardiac insufficiency following cardiac surgery; Translations: [Postprocedural cardiac insufficiency following cardiac surgery] Onset: 10-27-2023 Resolved: 10-30-2023 10-30-2023 Chronic Diseases of white blood cells (11 sources) Elevated white blood cell count, unspecified; Translations: [Leukocytosis] Onset: 05-16-2017 Resolved: 10-31-2023 11-05-2022 Chronic Inflammatory diseases of female pelvic organs (17 sources) Abscess of vulva; Translations: [Abscess of vulva] Onset: 12-23-2021 Episodic Nausea and vomiting (1 source) Nausea; Translations: [Nausea] Onset: 05-13-2017 Episodic Other aftercare (2 sources) Encounter for follow-up examination after completed treatment for malignant neoplasm; Translations: [Encounter for follow-up surveillance of vulvar cancer] Onset: 09-30-2022 Episodic Other aftercare (1 source) care home (current) use of insulin; Translations: [Type 2 diabetes mellitus with diabetic dermatitis, with long-term current use of insulin (HCC)] Onset: 03-18-2022 Episodic Other aftercare (14 sources) Long-term current use of insulin; 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] Onset: 01-14-2021 11-05-2022 Episodic Other circulatory disease (1 source) Erythromelalgia; Translations: [Erythromelalgia] Onset: 09-21-2022 Resolved: 01-21-2023 01-21-2023 Chronic Other circulatory disease (1 source) Peripheral vascular complication; Translations: [Unspecified disorder of circulatory system] Onset: 09-21-2022 09-21-2022 Episodic Other connective tissue disease (1 source) Recurrent falls ; Translations: [Repeated falls] Onset: 09-21-2022 09-21-2022 Episodic Other diseases of veins and lymphatics (1 source) Peripheral venous insufficiency; Translations: [Venous insufficiency (chronic) (peripheral)] Onset: 09-21-2022 09-21-2022 Episodic Other inflammatory condition of skin (1 source) Erythema; Translations: [Erythematous condition, unspecified] Onset: 09-21-2022 09-21-2022 Episodic Other skin disorders (1 source) Acne keloid; Translations: [Other acne] Onset: 09-21-2022 09-21-2022 Episodic Other skin disorders (14 sources) Hidradenitis suppurativa; Translations: [Hidradenitis suppurativa] Onset: 09-21-2022 09-21-2022 Episodic Other skin disorders (1 source) Acne conglobata; Translations: [Acne conglobata] Onset: 05-17-2017 11-05-2022 Episodic Irasema-; endo-; and myocarditis; cardiomyopathy (except that caused by tuberculosis or sexually transmitted disease) (16 sources) Pericardial effusion; Translations: [Pericardial effusion] Onset: 07-08-2023 10-20-2020 Episodic Residual codes; unclassified (17 sources) Edema of lower extremity; Translations: [Localized edema] Onset: 09-02-2022 01-17-2017 Episodic Spondylosis; intervertebral disc disorders; other back problems (1 source) Low back pain; Translations: [Low back pain] Onset: 09-21-2022 09-21-2022 Episodic Superficial injury; contusion (5 sources) Abrasion of left elbow, initial encounter; Translations: [Abrasion, left lesser toe(s), initial encounter] Onset: 01-13-2022 Episodic Unclassified (2 sources) Other specified abnormal findings of blood chemistry; Translations: [Increased lactic acid level] Onset: 05-16-2017 11-05-2022 Episodic Varicose veins of lower extremity (4 sources) Varicose veins of bilateral lower extremities with pain; Translations: [VARICOSE VNS JACK LOW EXTREM W/PAIN] Onset: 03-17-2022 Episodic Results Test Name Value Interpretation Reference Range Facility [facility] 12-19-2023 CNPN Normal [facility] 12-17-2023 CNPN Normal [facility] Bacteria Wnd Culton 12-13-19 24 Bacteria identified Cx Nom (Wound) Abnormal [facility] Comment on above: Performed By: #### 6 462-6 ####[facility] [id number] [place] [address] [place] CBC panel Auto (Bld)on 12-12 Erythrocyte distribution width (RBC) [Ratio] 14.6 % Normal 11.5-15.0 [facility] Comment on above: Order Comment: Speci men Type: BLOOD SPECIMENOrdering Facility: [facility] Address: [address] [place] [address] Performed By: #### 5 8410-2 ####[facility] LABIA [id number] [place] [address] [place] Hematocrit (Bld) [Volume fraction] 35.6 % Low 36.0-46.0 [facility] Comment on above: Order Comment: Speci men Type: BLOOD SPECIMENOrdering Facility: [facility] Address: [address] [place] [address] Performed By: #### 5 8410-2 ####[facility] LABIA [id number] [place] [address] [place] Hemoglobin (Bld) [Mass/Vol] 11.1 g/dL Low 11.5-15.5 [facility] Comment on above: Order Comment: Speci men Type: BLOOD SPECIMENOrdering Facility: [facility] Address: [address] [place] [address] Performed By: #### 5 8410-2 ####[facility] [id number] [place] [address] [place] MCH (RBC) [Entitic mass] 31.5 pg Normal 26.0-34.0 [facility] Comment on above: Order Comment: Speci men Type: BLOOD SPECIMENOrdering Facility: [facility] Address: [address] [place] [address] Performed By: #### 5 8410-2 ####[facility] [id number] [place] [address] [place] MCHC (RBC) [Mass/Vol] 31.2 g/dL Normal 30.5-36.[address] [facility] Comment on above: Order Comment: Speci men Type: BLOOD SPECIMENOrdering Facility: [facility] Address: [address] [place] [address] Performed By: #### 5 8410-2 ####[facility]BR[facility] [id number] [address] [id number], [place] [address] [place] MCV (RBC) [Entitic vol] 101.1 fL High 80.0-100.0 [facility] Comment on above: Order Comment: Speci men Type: BLOOD SPECIMENOrdering Facility: [facility] Address: [address] [place] [address] Performed By: #### 5 8410-2 ####[facility] LABCLIA [id number] [place] [address] [place] Nucleated RBC (Bld) [#/Vol] 10*3/uL Normal <0.01 [facility] Comment on above: Order Comment: Speci men Type: BLOOD SPECIMENOrdering Facility: [facility] Address: [address] [place] [address] Performed By: #### 5 8410-2 ####[facility] LABCLIA [id number] [place] [address] [place] Platelet mean volume (Bld) [Entitic vol] 8.6 fL Low 9.0-12.7 [facility] Comment on above: Order Comment: Speci men Type: BLOOD SPECIMENOrdering Facility: [facility] Address: [address] [place] [address] Performed By: #### 5 8410-2 ####[facility] LABIA [id number] [place] [address] [place] Platelets (Bld) [#/Vol] 347 10*3/uL Normal 150-400 [facility] Comment on above: Order Comment: Speci men Type: BLOOD SPECIMENOrdering Facility: [facility] Address: [address] [place] [address] Performed By: #### 5 8410-2 ####[facility] LABCLIA [id number] [place] [address] [place] RBC (Bld) [#/Vol] 3.52 10*6/uL Low 3.90-5.20 [facility] Comment on above: Order Comment: Speci men Type: BLOOD SPECIMENOrdering Facility: [facility] Address: [address] [place] [address] Performed By: #### 5 8410-2 ####[facility] LABIA [id number] [place] [address] [place] WBC (Bld) [#/Vol] 9.27 10*3/uL Normal 3.70-11.00 [facility] Comment on above: Order Comment: Speci men Type: BLOOD SPECIMENOrdering Facility: [facility] Address: [address] [place] [address] Performed By: #### 5 8410-2 ####[facility] LABIA [id number] [place] [address] [place] CNOVon 12-13-2023 CNOV Normal [facility] metabolic 2000 panelon 12-13-2023 Albumin [Mass/Vol] 3.8 g/dL Low 3.9-4.9 [facility] Comment on above: Order Comment: Speci men Type: BLOOD SPECIMENOrdering Facility: [facility] Address: [address] [place] [address] Performed By: #### 2 4323-8 ####[facility] LABIA [id number] [place] [address] [place] ALP [Catalytic activity/Vol] 220 U/L High 34-123 [facility] Comment on above: Order Comment: Speci men Type: BLOOD SPECIMENOrdering Facility: [facility] Address: [address] [place] [address] Performed By: #### 2 4323-8 ####[facility] LABIA [id number] [place] [address] [place] ALT [Catalytic activity/Vol] 29 U/L Normal 7-38 [facility] Comment on above: Order Comment: Speci men Type: BLOOD SPECIMENOrdering Facility: [facility] Address: [address] [place] [address] Performed By: #### 2 4323-8 ####[facility] LABCLIA [id number] [place] [address] [place] Anion gap [Moles/Vol] 15 mmol/L Normal 8-[address] [facility] Comment on above: Order Comment: Speci men Type: BLOOD SPECIMENOrdering Facility: [facility] Address: [address] [place] [address] Performed By: #### 2 4323-8 ####[facility] LABCLIA [id number] [place] [address] [place] AST [Catalytic activity/Vol] 33 U/L Normal 13-35 [facility] Comment on above: Order Comment: Speci men Type: BLOOD SPECIMENOrdering Facility: [facility] Address: [address] [place] [address] Performed By: #### 2 4323-8 ####[facility] LABCLIA [id number] [place] [address] [place] Bilirubin [Mass/Vol] 0.5 mg/dL Normal 0.2-1.3 [facility] Comment on above: Order Comment: Speci men Type: BLOOD SPECIMENOrdering Facility: [facility] Address: [address] [place] [address] Performed By: #### 2 4323-8 ####[facility] LABCLIA [id number] [place] [address] [place] Calcium [Mass/Vol] 9.6 mg/dL Normal 8.5-10.2 [facility] Comment on above: Order Comment: Speci men Type: BLOOD SPECIMENOrdering Facility: [facility] Address: [address] [place] [address] Performed By: #### 2 4323-8 ####[facility] LABCLIA [id number] [place] [address] [place] Chloride [Moles/Vol] 94 mmol/L Low 98-107 [facility] Comment on above: Order Comment: Speci men Type: BLOOD SPECIMENOrdering Facility: [facility] Address: [address] [place] [address] Performed By: #### 2 4323-8 ####[facility] LABCLIA [id number] [place] [address] [place] CO2 [Moles/Vol] 26 mmol/L Normal 22-30 [facility] Comment on above: Order Comment: Speci men Type: BLOOD SPECIMENOrdering Facility: [facility] Address: [address] [place] [address] Performed By: #### 2 4323-8 ####[facility] LABCLIA [id number] [address] [place] Creatinine [Mass/Vol] 1.53 mg/dL High 0.58-0.[address] [facility] Comment on above: Order Comment: Speci men Type: BLOOD SPECIMENOrdering Facility: [facility] Address: [address] [place] [address] Performed By: #### 2 4323-8 ####[facility] LABCLIA [id number] [address] OF [facility] Creatinine and Glomerular filtration rate.predicted panel (S/P/Bld) 38 mL/min/1.73m??? Low >=60 [facility] Comment on above: Order Comment: Speci men Type: BLOOD SPECIMENOrdering Facility: [facility] Address: [address] [place] [address] Result Comment: Malorie mated Glomerular Filtration Rate (eGFR) is calculated using the 2020 CKD-EPI creatinine equation. This equation utilizes serum creatinine, sex, and age as parameters. The creatinine assay has traceable calibration to isotope dilution-mass spectrometry. Refer to KDIGO guidelines for clinical interpretation. In patients with unstable renal function, e.g. those with acute kidney injury, the eGFR may not accurately reflect actual GFR. Performed By: #### 2 4323-8 ####[facility] LABCLIA [id number] [place] [address] [place] Glucose [Mass/Vol] 167 mg/dL High 74-99 [facility] Comment on above: Order Comment: Speci men Type: BLOOD SPECIMENOrdering Facility: [facility] Address: [address] [place] [address] Result Comment: The [place] [employer] (ADA) provides guidance for cutoff values for fasting glucose and random glucose. The ADA defines fasting as no caloric intake for at least 8 hours. Fasting plasma glucose results between 100 to 125 mg/dL indicate increased risk for diabetes (prediabetes).Fasting plasma glucose results greater than or equal to 126 mg/dL meet the criteria for diagnosis of diabetes. In the absence of unequivocal hyperglycemia, results should be confirmed by repeat testing. In a patient with classic symptoms of hyperglycemia or hyperglycemic crisis, random plasma glucose results greater than or equal to 200 mg/dL meet the criteria for diagnosis of diabetes.Reference: Standards of Medical Care in Diabetes 2016, [place] [employer]. Diabetes Care. 2016.39(Suppl 1). Performed By: #### 2 4323-8 ####[facility] LABCLIA [id number] [place] [address] [place] Potassium [Moles/Vol] 3.1 mmol/L Low 3.7-5.[address] [facility] Comment on above: Order Comment: Speci men Type: BLOOD SPECIMENOrdering Facility: [facility] Address: [address] [place] [address] Performed By: #### 2 4323-8 ####[facility] LABCLIA [id number] [place] [address] [place] Protein [Mass/Vol] 7.2 g/dL Normal 6.3-8.0 [facility] Comment on above: Order Comment: Speci men Type: BLOOD SPECIMENOrdering Facility: [facility] Address: [address] [place] [address] Performed By: #### 2 4323-8 ####[facility] LABCLIA [id number] [place] [id number] [place] Sodium [Moles/Vol] 135 mmol/L Low 136-144 [facility] Comment on above: Order Comment: Speci men Type: BLOOD SPECIMENOrdering Facility: [facility] Address: [address] [place] [address] Performed By: #### 2 4323-8 ####[facility] LABCLIA [id number] [place] [address] [place] Urea nitrogen [Mass/Vol] 23 mg/dL High 7-21 [facility] Comment on above: Order Comment: Speci men Type: BLOOD SPECIMENOrdering Facility: [facility] Address: [address] [place] [address] Performed By: #### 2 4323-8 ####[facility] LABCLIA [id number] [place] [address] [place] XR CHEST 2V FRONTAL/LATon XR CHEST 2V FRONTAL/LAT Normal [facility] XR Chest PA and Lateralon IMPRESSION: See result. Inspector Insulation: PSCB Transcribe Date/Time: Dec 13 2023 7:06P Dictated by : KG BUSCH MD This examination was interpreted and the report reviewed and electronically signed by: KG BUSCH MD on Dec 13 2023 7:06PM [facility] DIVISION OF RADIOLOGY * * *Final Report* * * DATE OF EXAM: Dec 13 2023 1:17PM JIX [id number] - XR CHEST 2V FRONTAL/LAT / PROCEDURE REASON: Surgery follow-up * * * * Physician Interpretation * * * * EXAMINATION: CHEST RADIOGRAPH (2 VIEW FRONTAL & LATERAL) CLINICAL HISTORY: Surgery follow-up MQ: XC2_6 EXAM DATE/TIME: 12/13/2023 1:17 PM COMPARISON: 11/18/2023 RESULT: Lines, tubes, and devices: None. Lungs and pleura: Evaluation is compromised due to patient's body habitus. No consolidation. Stable elevation of the left hemidiaphragm with subsegmental atelectasis in the adjacent left lung base. The left costophrenic angle is minimally blunted, which could be due to smooth pleural thickening or trace effusion. No right pleural effusion. No pneumothorax. Cardiomediastinal silhouette: Normal cardiomediastinal silhouette. Bones and soft tissues: Status post median sternotomy with normally aligned sternal wires. Degenerative changes in the thoracic spine. DIVISION OF RADIOLOGY Provider, Ivette Nielsen - 12/13/2023 * * *Final Report* * * DATE OF EXAM: Dec 13 2023 1:17PM JIX [id number] - XR CHEST 2V FRONTAL/LAT / PROCEDURE REASON: Surgery follow-up * * * * Physician Interpretation * * * * EXAMINATION: CHEST RADIOGRAPH (2 VIEW FRONTAL & LATERAL) CLINICAL HISTORY: Surgery follow-up MQ: XC2_6 EXAM DATE/TIME: 12/13/2023 1:17 PM COMPARISON: 11/18/2023 RESULT: Lines, tubes, and devices: None. Lungs and pleura: Evaluation is compromised due to patient's body habitus. No consolidation. Stable elevation of the left hemidiaphragm with subsegmental atelectasis in the adjacent left lung base. The left costophrenic angle is minimally blunted, which could be due to smooth pleural thickening or trace effusion. No right pleural effusion. No pneumothorax. Cardiomediastinal silhouette: Normal cardiomediastinal silhouette. Bones and soft tissues: Status post median sternotomy with normally aligned sternal wires. Degenerative changes in the thoracic spine. IMPRESSION IMPRESSION: See result. Inspector Insulation: PSCB Transcribe Date/Time: Dec 13 2023 7:06P Dictated by : KG BUSCH MD This examination was interpreted and the report reviewed and electronically signed by: KG BUSCH MD on Dec 13 2023 7:06PM EST [facility] Radiology Study observation (narrative) [facility] XR Chest PA and LateralOrder ed By: Ccf Provider on 12-13-2023 [facility] CNPNon 11-23-2023 CNPN Normal [facility] CASE MANAGEMon 11-22-2023 CASE MANAGEM Normal [facility] CONSULT PROGon 11-22-2023 CONSULT PROG Normal [facility] CASE MANAGEMon 11-21-2023 CASE MANAGEM Normal [facility] CASE MANAGEM Normal [facility] CBC panel Auto (Bld)on 11-20 Erythrocyte distribution width (RBC) [Ratio] 14.7 % Normal 11.5-15.0 [facility] Comment on above: Order Comment: Speci men Type: BLOOD SPECIMENOrdering Facility: [facility] Address: [address] [place] [address] Performed By: #### 5 8410-2 ####[facility] LABCLIA [id number] [place] [address] [place] Hematocrit (Bld) [Volume fraction] 36.4 % Normal 36.0-46.0 [facility] Comment on above: Order Comment: Speci men Type: BLOOD SPECIMENOrdering Facility: [facility] Address: [address] [place] [address] Performed By: #### 5 8410-2 ####[facility] LABCLIA [id number] [place] [address] [place] Hemoglobin (Bld) [Mass/Vol] 11.2 g/dL Low 11.5-15.5 [facility] Comment on above: Order Comment: Speci men Type: BLOOD SPECIMENOrdering Facility: [facility] Address: [address] [place] [address] Performed By: #### 5 8410-2 ####[facility] LABCLIA [id number] [place] [address] [place] MCH (RBC) [Entitic mass] 31.2 pg Normal 26.0-34.0 [facility] Comment on above: Order Comment: Speci men Type: BLOOD SPECIMENOrdering Facility: [facility] Address: [address] [place] [address] Performed By: #### 5 8410-2 ####[facility] LABCLIA [id number] [place] [address] [place] MCHC (RBC) [Mass/Vol] 30.8 g/dL Normal 30.5-36.[address] [facility] Comment on above: Order Comment: Speci men Type: BLOOD SPECIMENOrdering Facility: [facility] Address: [address] [place] [address] Performed By: #### 5 8410-2 ####[facility] LABIA [id number] [place] [address] [place] MCV (RBC) [Entitic vol] 101.4 fL High 80.0-100.0 [facility] Comment on above: Order Comment: Speci men Type: BLOOD SPECIMENOrdering Facility: [facility] Address: [address] [place] [address] Performed By: #### 5 8410-2 ####[facility] [id number] [place] [address] [place] Nucleated RBC (Bld) [#/Vol] 10*3/uL Normal <0.01 [facility] Comment on above: Order Comment: Speci men Type: BLOOD SPECIMENOrdering Facility: [facility] Address: [address] [place] [address] Performed By: #### 5 8410-2 ####[facility] [id number] [place] [address] [place] Platelet mean volume (Bld) [Entitic vol] 8.4 fL Low 9.0-12.7 [facility] Comment on above: Order Comment: Speci men Type: BLOOD SPECIMENOrdering Facility: [facility] Address: [address] [place] [address] Performed By: #### 5 8410-2 ####[facility] LABIA [id number] [place] [address] [place] Platelets (Bld) [#/Vol] 278 10*3/uL Normal 150-400 [facility] Comment on above: Order Comment: Speci men Type: BLOOD SPECIMENOrdering Facility: [facility] Address: [address] [place] [address] Performed By: #### 5 8410-2 ####[facility] LABCLIA [id number] [address] [address] [place] RBC (Bld) [#/Vol] 3.59 10*6/uL Low 3.90-5.20 [facility] Comment on above: Order Comment: Speci men Type: BLOOD SPECIMENOrdering Facility: [facility] Address: [address] [place] [address] Performed By: #### 5 8410-2 ####[facility] LABIA [id number] [place] [address] [place] WBC (Bld) [#/Vol] 6.11 10*3/uL Normal 3.70-11.00 [facility] Comment on above: Order Comment: Speci men Type: BLOOD SPECIMENOrdering Facility: [facility] Address: [address] [place] [address] Performed By: #### 5 8410-2 ####[facility] LABIA [id number] [place] [address] [place] CONSULT PROGon 11-21-2023 CONSULT PROG Normal [facility] Comprehensive metabolic 2000 panelon 11-21-2023 Albumin [Mass/Vol] 3.7 g/dL Low 3.9-4.9 [facility] Comment on above: Order Comment: Speci men Type: BLOOD SPECIMENOrdering Facility: [facility] Address: [address] [place] [address] Performed By: #### 2 4323-8 ####[facility] LABIA [id number] [place] [address] [place] ALP [Catalytic activity/Vol] 135 U/L High 34-123 [facility] Comment on above: Order Comment: Speci men Type: BLOOD SPECIMENOrdering Facility: [facility] Address: [address] [place] [address] Performed By: #### 2 4323-8 ####[facility] LABCLIA [id number] [address] [address] [place] ALT [Catalytic activity/Vol] 12 U/L Normal 7-38 [facility] Comment on above: Order Comment: Speci men Type: BLOOD SPECIMENOrdering Facility: [facility] Address: [address] [place] [address] Performed By: #### 2 4323-8 ####[facility] LABCLIA [id number] [place] [id number] [place] Anion gap [Moles/Vol] 11 mmol/L Normal 8-[address] [facility] Comment on above: Order Comment: Speci men Type: BLOOD SPECIMENOrdering Facility: [facility] Address: [address] [place] [address] Performed By: #### 2 4323-8 ####[facility] LABCLIA [id number] [place] [address] [place] AST [Catalytic activity/Vol] 19 U/L Normal 13-35 [facility] Comment on above: Order Comment: Speci men Type: BLOOD SPECIMENOrdering Facility: [facility] Address: [address] [place], [place] [address] Performed By: #### 2 4323-8 ####[facility] LABCLIA [id number] [place] [address] [place] Bilirubin [Mass/Vol] 0.8 mg/dL Normal 0.2-1.3 [facility] Comment on above: Order Comment: Speci men Type: BLOOD SPECIMENOrdering Facility: [facility] Address: [address] [place], [place] [address] Performed By: #### 2 4323-8 ####[facility] LABCLIA [id number] [place] [id number] [place] Calcium [Mass/Vol] 9.1 mg/dL Normal 8.5-10.2 [facility] Comment on above: Order Comment: Speci men Type: BLOOD SPECIMENOrdering Facility: [facility] Address: [address] [place] [address] Performed By: #### 2 4323-8 ####[facility] LABCLIA [id number] [place] [address] [place] Chloride [Moles/Vol] 95 mmol/L Low 98-107 [facility] Comment on above: Order Comment: Speci men Type: BLOOD SPECIMENOrdering Facility: [facility] Address: [address] [place] [address] Performed By: #### 2 4323-8 ####[facility] LABCLIA [id number] [place] [address] [place] CO2 [Moles/Vol] 29 mmol/L Normal 22-30 [facility] Comment on above: Order Comment: Speci men Type: BLOOD SPECIMENOrdering Facility: [facility] Address: [address] [place] [address] Performed By: #### 2 4323-8 ####[facility] LABCLIA [id number] [place] [address] [place] Creatinine [Mass/Vol] 1.34 mg/dL High 0.58-0.[address] [facility] Comment on above: Order Comment: Speci men Type: BLOOD SPECIMENOrdering Facility: [facility] Address: [address] [place] [address] Performed By: #### 2 4323-8 ####[facility] LABCLIA [id number] [place] [address] [place] Creatinine and Glomerular filtration rate.predicted panel (S/P/Bld) 45 mL/min/1.73m??? Low >=60 [facility] Comment on above: Order Comment: Speci men Type: BLOOD SPECIMENOrdering Facility: [facility] Address: [address] [place] [address] Result Comment: Malorie mated Glomerular Filtration Rate (eGFR) is calculated using the 2020 CKD-EPI creatinine equation. This equation utilizes serum creatinine, sex, and age as parameters. The creatinine assay has traceable calibration to isotope dilution-mass spectrometry. Refer to KDIGO guidelines for clinical interpretation. In patients with unstable renal function, e.g. those with acute kidney injury, the eGFR may not accurately reflect actual GFR. Performed By: #### 2 4323-8 ####[facility] LABIA [id number] [place] [address] [place] Glucose [Mass/Vol] 186 mg/dL High 74-99 [facility] Comment on above: Order Comment: Ernie billy Type: BLOOD SPECIMENOrdering Facility: [facility] Address: [address] [place] [address] Result Comment: The [place] [employer] (ADA) provides guidance for cutoff values for fasting glucose and random glucose. The ADA defines fasting as no caloric intake for at least 8 hours. Fasting plasma glucose results between 100 to 125 mg/dL indicate increased risk for diabetes (prediabetes).Fasting plasma glucose results greater than or equal to 126 mg/dL meet the criteria for diagnosis of diabetes. In the absence of unequivocal hyperglycemia, results should be confirmed by repeat testing. In a patient with classic symptoms of hyperglycemia or hyperglycemic crisis, random plasma glucose results greater than or equal to 200 mg/dL meet the criteria for diagnosis of diabetes.Reference: Standards of Medical Care in Diabetes 2016, [place] [employer]. Diabetes Care. 2016.39(Suppl 1). Performed By: #### 2 4323-8 ####[facility] LABIA [id number] [place] [id number] [place] Potassium [Moles/Vol] 4.0 mmol/L Normal 3.7-5.[address] [facility] Comment on above: Order Comment: Ernie billy Type: BLOOD SPECIMENOrdering Facility: [facility] Address: [address] [place] [address] Performed By: #### 2 4323-8 ####[facility] LABIA [id number] [address] [address] [place] Protein [Mass/Vol] 6.7 g/dL Normal 6.3-8.0 [facility] Comment on above: Order Comment: Speci men Type: BLOOD SPECIMENOrdering Facility: [facility] Address: [address] [place] [address] Performed By: #### 2 4323-8 ####[facility] LABCLIA [id number] [place] [address] [place] Sodium [Moles/Vol] 135 mmol/L Low 136-144 [facility] Comment on above: Order Comment: Speci men Type: BLOOD SPECIMENOrdering Facility: [facility] Address: [address] [place] [address] Performed By: #### 2 4323-8 ####[facility] LABCLIA [id number] [place] [address] [place] Urea nitrogen [Mass/Vol] 17 mg/dL Normal 11-19 [facility] Comment on above: Order Comment: Speci men Type: BLOOD SPECIMENOrdering Facility: [facility] Address: [address] [place] [address] Performed By: #### 2 4323-8 ####[facility] LABCLIA [id number] [place] [address] [place] ECG COMPLETEon 11-21-2023 ECG COMPLETE Normal [facility] THERAPY NTon 11-21-2023 THERAPY NT Normal [facility] CBC panel Auto (Bld)on 11-19 Erythrocyte distribution width (RBC) [Ratio] 15.0 % Normal 11.5-15.0 [facility] Comment on above: Order Comment: Speci men Type: BLOOD SPECIMENOrdering Facility: [facility] Address: [address] [place] [address] Performed By: #### 5 8410-2 ####[facility] LABCLIA [id number] [place] [address] [place] Hematocrit (Bld) [Volume fraction] 35.1 % Low 36.0-46.0 [facility] Comment on above: Order Comment: Speci men Type: BLOOD SPECIMENOrdering Facility: [facility] Address: [address] [place] [address] Performed By: #### 5 8410-2 ####[facility] [id number] [place] [address] [place] Hemoglobin (Bld) [Mass/Vol] 10.8 g/dL Low 11.5-15.5 [facility] Comment on above: Order Comment: Speci men Type: BLOOD SPECIMENOrdering Facility: [facility] Address: [address] [place] [address] Performed By: #### 5 8410-2 ####[facility] [id number] [place] [address] [place] MCH (RBC) [Entitic mass] 31.3 pg Normal 26.0-34.0 [facility] Comment on above: Order Comment: Speci men Type: BLOOD SPECIMENOrdering Facility: [facility] Address: [address] [place] [address] Performed By: #### 5 8410-2 ####[facility] [id number] [place] [address] [place] MCHC (RBC) [Mass/Vol] 30.8 g/dL Normal 30.5-36.[address] [facility] Comment on above: Order Comment: Speci men Type: BLOOD SPECIMENOrdering Facility: [facility] Address: [address] [place] [address] Performed By: #### 5 8410-2 ####[facility] [id number] [place] [address] [place] MCV (RBC) [Entitic vol] 101.7 fL High 80.0-100.0 [facility] Comment on above: Order Comment: Speci men Type: BLOOD SPECIMENOrdering Facility: [facility] Address: [address] [place] [address] Performed By: #### 5 8410-2 ####[facility] LABCLIA [id number] [place] [address] [place] Nucleated RBC (Bld) [#/Vol] 10*3/uL Normal <0.01 [facility] Comment on above: Order Comment: Speci men Type: BLOOD SPECIMENOrdering Facility: [facility] Address: [address] [place] [address] Performed By: #### 5 8410-2 ####[facility] LABIA [id number] [place] [address] [place] Platelet mean volume (Bld) [Entitic vol] 8.7 fL Low 9.0-12.7 [facility] Comment on above: Order Comment: Speci men Type: BLOOD SPECIMENOrdering Facility: [facility] Address: [address] [place] [address] Performed By: #### 5 8410-2 ####[facility] LABIA [id number] [place] [address] [place] Platelets (Bld) [#/Vol] 298 10*3/uL Normal 150-400 [facility] Comment on above: Order Comment: Speci men Type: BLOOD SPECIMENOrdering Facility: [facility] Address: [address] [place] [address] Performed By: #### 5 8410-2 ####[facility] LABCLIA [id number] [place] [address] [place] RBC (Bld) [#/Vol] 3.45 10*6/uL Low 3.90-5.20 [facility] Comment on above: Order Comment: Speci men Type: BLOOD SPECIMENOrdering Facility: [facility] Address: [address] [place] [address] Performed By: #### 5 8410-2 ####[facility] LABCLIA [id number] [place] [address] [place] WBC (Bld) [#/Vol] 5.94 10*3/uL Normal 3.70-11.00 [facility] Comment on above: Order Comment: Speci men Type: BLOOD SPECIMENOrdering Facility: [facility] Address: [address] [place] [address] Performed By: #### 5 8410-2 ####[facility] LABCLIA [id number] [place] [address] [place] Comprehensive metabolic 2000 panelon 11-20-2023 Albumin [Mass/Vol] 3.6 g/dL Low 3.9-4.9 [facility] Comment on above: Order Comment: Speci men Type: BLOOD SPECIMENOrdering Facility: [facility] Address: [address] [place] [address] Performed By: #### 2 4323-8 ####[facility] LABCLIA [id number] [place] [address] [place] ALP [Catalytic activity/Vol] 124 U/L High 34-123 [facility] Comment on above: Order Comment: Speci men Type: BLOOD SPECIMENOrdering Facility: [facility] Address: [address] [place] [address] Performed By: #### 2 4323-8 ####[facility] LABCLIA [id number] [place] [address] [place] ALT [Catalytic activity/Vol] 9 U/L Normal 7-38 [facility] Comment on above: Order Comment: Speci men Type: BLOOD SPECIMENOrdering Facility: [facility] Address: [address] [place] [address] Performed By: #### 2 4323-8 ####[facility] LABCLIA [id number] [place] [address] [place] Anion gap [Moles/Vol] 13 mmol/L Normal 8-[address] [facility] Comment on above: Order Comment: Speci men Type: BLOOD SPECIMENOrdering Facility: [facility] Address: [address] [place], [place] [address] Performed By: #### 2 4323-8 ####[facility] LABCLIA [id number] [place] [id number] [place] AST [Catalytic activity/Vol] 16 U/L Normal 13-35 [facility] Comment on above: Order Comment: Speci men Type: BLOOD SPECIMENOrdering Facility: [facility] Address: [address] [place] [address] Performed By: #### 2 4323-8 ####[facility] LABCLIA [id number] [place] [address] [place] Bilirubin [Mass/Vol] 0.7 mg/dL Normal 0.2-1.3 [facility] Comment on above: Order Comment: Speci men Type: BLOOD SPECIMENOrdering Facility: [facility] Address: [address] [place] [address] Performed By: #### 2 4323-8 ####[facility] LABCLIA [id number] [place] [address] [place] Calcium [Mass/Vol] 9.0 mg/dL Normal 8.5-10.2 [facility] Comment on above: Order Comment: Speci men Type: BLOOD SPECIMENOrdering Facility: [facility] Address: [address] [place] [address] Performed By: #### 2 4323-8 ####[facility] LABCLIA [id number] [place] [id number] [place] Chloride [Moles/Vol] 93 mmol/L Low 98-107 [facility] Comment on above: Order Comment: Speci men Type: BLOOD SPECIMENOrdering Facility: [facility] Address: [address] [place], [place] [address] Performed By: #### 2 4323-8 ####[facility] LABCLIA [id number] [place] [address] [place] CO2 [Moles/Vol] 30 mmol/L Normal 22-30 [facility] Comment on above: Order Comment: Speci men Type: BLOOD SPECIMENOrdering Facility: [facility] Address: [address] [place] [address] Performed By: #### 2 4323-8 ####[facility] LABIA [id number] [place] [address] [place] Creatinine [Mass/Vol] 1.33 mg/dL High 0.58-0.[address] [facility] Comment on above: Order Comment: Speci men Type: BLOOD SPECIMENOrdering Facility: [facility] Address: [address] [place] [address] Performed By: #### 2 4323-8 ####[facility] LABIA [id number] [place] [address] [place] Creatinine and Glomerular filtration rate.predicted panel (S/P/Bld) 45 mL/min/1.73m??? Low >=60 [facility] Comment on above: Order Comment: Speci men Type: BLOOD SPECIMENOrdering Facility: [facility] Address: [address] [place] [address] Result Comment: Malorie mated Glomerular Filtration Rate (eGFR) is calculated using the 2020 CKD-EPI creatinine equation. This equation utilizes serum creatinine, sex, and age as parameters. The creatinine assay has traceable calibration to isotope dilution-mass spectrometry. Refer to KDIGO guidelines for clinical interpretation. In patients with unstable renal function, e.g. those with acute kidney injury, the eGFR may not accurately reflect actual GFR. Performed By: #### 2 4323-8 ####[facility] LABIA [id number] [place] [address] [place] Glucose [Mass/Vol] 166 mg/dL High 74-99 [facility] Comment on above: Order Comment: Speci men Type: BLOOD SPECIMENOrdering Facility: [facility] Address: [address] [place] [address] Result Comment: The [place] [employer] (ADA) provides guidance for cutoff values for fasting glucose and random glucose. The ADA defines fasting as no caloric intake for at least 8 hours. Fasting plasma glucose results between 100 to 125 mg/dL indicate increased risk for diabetes (prediabetes).Fasting plasma glucose results greater than or equal to 126 mg/dL meet the criteria for diagnosis of diabetes. In the absence of unequivocal hyperglycemia, results should be confirmed by repeat testing. In a patient with classic symptoms of hyperglycemia or hyperglycemic crisis, random plasma glucose results greater than or equal to 200 mg/dL meet the criteria for diagnosis of diabetes.Reference: Standards of Medical Care in Diabetes 2016, [place] [employer]. Diabetes Care. 2016.39(Suppl 1). Performed By: #### 2 4323-8 ####[facility] LABCLIA [id number] [place] [address] [place] Potassium [Moles/Vol] 3.6 mmol/L Low 3.7-5.[address] [facility] Comment on above: Order Comment: Speci men Type: BLOOD SPECIMENOrdering Facility: [facility] Address: [address] [place] [address] Performed By: #### 2 4323-8 ####[facility] LABIA [id number] [place] [address] [place] Protein [Mass/Vol] 6.8 g/dL Normal 6.3-8.0 [facility] Comment on above: Order Comment: Speci men Type: BLOOD SPECIMENOrdering Facility: [facility] Address: [address] [place] [address] Performed By: #### 2 4323-8 ####[facility] LABIA [id number] [place] [address] [place] Sodium [Moles/Vol] 136 mmol/L Normal 136-144 [facility] Comment on above: Order Comment: Speci men Type: BLOOD SPECIMENOrdering Facility: [facility] Address: [address] [place] [address] Performed By: #### 2 4323-8 ####[facility] LABCLIA [id number] [place] [address] [place] Urea nitrogen [Mass/Vol] 17 mg/dL Normal 7-21 [facility] Comment on above: Order Comment: Speci men Type: BLOOD SPECIMENOrdering Facility: [facility] Address: [address] [place] [address] Performed By: #### 2 4323-8 ####[facility] LABCLIA [id number] [place] [address] [place] POTASSIUMon 11-20-2023 Potassium [Moles/Vol] 4.2 mmol/L Normal 3.7-5.[address] [facility] Comment on above: Order Comment: Speci men Type: BLOOD SPECIMENOrdering Facility: [facility] Address: [address] [place] [address] Performed By: #### K 1 ####[facility] LABCLIA [id number] [place] [address] [place] CBC panel Auto (Bld)on 11-18 Erythrocyte distribution width (RBC) [Ratio] 15.3 % High 11.5-15.0 [facility] Comment on above: Order Comment: Speci men Type: BLOOD SPECIMENOrdering Facility: [facility] Address: [address] [place] [address] Performed By: #### 5 8410-2 ####[facility] LABCLIA [id number] [place] [address] [place] Hematocrit (Bld) [Volume fraction] 34.2 % Low 36.0-46.0 [facility] Comment on above: Order Comment: Speci men Type: BLOOD SPECIMENOrdering Facility: [facility] Address: [address] [place] [address] Performed By: #### 5 8410-2 ####[facility] LABCLIA [id number] [place] [address] [place] Hemoglobin (Bld) [Mass/Vol] 10.6 g/dL Low 11.5-15.5 [facility] Comment on above: Order Comment: Speci men Type: BLOOD SPECIMENOrdering Facility: [facility] Address: [address] [place] [address] Performed By: #### 5 8410-2 ####[facility] LABIA [id number] [place] [address] [place] MCH (RBC) [Entitic mass] 31.3 pg Normal 26.0-34.0 [facility] Comment on above: Order Comment: Speci men Type: BLOOD SPECIMENOrdering Facility: [facility] Address: [address] [place] [address] Performed By: #### 5 8410-2 ####[facility] LABIA [id number] [place] [address] [place] MCHC (RBC) [Mass/Vol] 31.0 g/dL Normal 30.5-36.[address] [facility] Comment on above: Order Comment: Speci men Type: BLOOD SPECIMENOrdering Facility: [facility] Address: [address] [place] [address] Performed By: #### 5 8410-2 ####[facility] LABIA [id number] [place] [address] [place] MCV (RBC) [Entitic vol] 100.9 fL High 80.0-100.0 [facility] Comment on above: Order Comment: Speci men Type: BLOOD SPECIMENOrdering Facility: [facility] Address: [address] [place] [address] Performed By: #### 5 8410-2 ####[facility] LABIA [id number] [place] [address] [place] Nucleated RBC (Bld) [#/Vol] 10*3/uL Normal <0.01 [facility] Comment on above: Order Comment: Speci men Type: BLOOD SPECIMENOrdering Facility: [facility] Address: [address] [place] [address] Performed By: #### 5 8410-2 ####[facility] LABCLIA [id number] [place] [address] [place] Platelet mean volume (Bld) [Entitic vol] 8.7 fL Low 9.0-12.7 [facility] Comment on above: Order Comment: Speci men Type: BLOOD SPECIMENOrdering Facility: [facility] Address: [address] [place] [address] Performed By: #### 5 8410-2 ####[facility] LABIA [id number] [place] [address] [place] Platelets (Bld) [#/Vol] 309 10*3/uL Normal 150-400 [facility] Comment on above: Order Comment: Speci men Type: BLOOD SPECIMENOrdering Facility: [facility] Address: [address] [place] [address] Performed By: #### 5 8410-2 ####[facility] LABIA [id number] [place] [address] [place] RBC (Bld) [#/Vol] 3.39 10*6/uL Low 3.90-5.20 [facility] Comment on above: Order Comment: Speci men Type: BLOOD SPECIMENOrdering Facility: [facility] Address: [address] [place] [address] Performed By: #### 5 8410-2 ####[facility] LABIA [id number] [place] [address] [place] WBC (Bld) [#/Vol] 6.40 10*3/uL Normal 3.70-11.00 [facility] Comment on above: Order Comment: Speci men Type: BLOOD SPECIMENOrdering Facility: [facility] Address: [address] [place] [id number] Performed By: #### 5 8410-2 ####[facility] LABCLIA [id number] [address] [address] [place] Comprehensive metabolic 2000 panelon 11-19-2023 Albumin [Mass/Vol] 3.7 g/dL Low 3.9-4.9 [facility] Comment on above: Order Comment: Speci men Type: BLOOD SPECIMENOrdering Facility: [facility] Address: [address] [place] [address] Performed By: #### 2 4323-8 ####[facility] LABCLIA [id number] [place] [address] [place] ALP [Catalytic activity/Vol] 126 U/L High 34-123 [facility] Comment on above: Order Comment: Speci men Type: BLOOD SPECIMENOrdering Facility: [facility] Address: [address] [place] [address] Performed By: #### 2 4323-8 ####[facility] LABCLIA [id number] [place] [address] [place] ALT [Catalytic activity/Vol] 12 U/L Normal 7-38 [facility] Comment on above: Order Comment: Speci men Type: BLOOD SPECIMENOrdering Facility: [facility] Address: [address] [place] [address] Performed By: #### 2 4323-8 ####[facility] LABCLIA [id number] [place] [id number] [place] Anion gap [Moles/Vol] 15 mmol/L Normal 8-[address] [facility] Comment on above: Order Comment: Speci men Type: BLOOD SPECIMENOrdering Facility: [facility] Address: [address] [place] [id number] Performed By: #### 2 4323-8 ####[facility] LABCLIA [id number] [place] [id number] [place] AST [Catalytic activity/Vol] 18 U/L Normal 13-35 [facility] Comment on above: Order Comment: Speci men Type: BLOOD SPECIMENOrdering Facility: [facility] Address: [address] [place] [address] Performed By: #### 2 4323-8 ####[facility] LABCLIA [id number] [place] [address] [place] Bilirubin [Mass/Vol] 0.7 mg/dL Normal 0.2-1.3 [facility] Comment on above: Order Comment: Speci men Type: BLOOD SPECIMENOrdering Facility: [facility] Address: [address] [place] [address] Performed By: #### 2 4323-8 ####[facility] LABCLIA [id number] [place] [address] [place] Calcium [Mass/Vol] 9.2 mg/dL Normal 8.5-10.2 [facility] Comment on above: Order Comment: Speci men Type: BLOOD SPECIMENOrdering Facility: [facility] Address: [address] [place] [address] Performed By: #### 2 4323-8 ####[facility] LABCLIA [id number] [place] [address] [place] Chloride [Moles/Vol] 93 mmol/L Low 98-107 [facility] Comment on above: Order Comment: Speci men Type: BLOOD SPECIMENOrdering Facility: [facility] Address: [address] [place] [address] Performed By: #### 2 4323-8 ####[facility] LABCLIA [id number] [place] [address] [place] CO2 [Moles/Vol] 28 mmol/L Normal 22-30 [facility] Comment on above: Order Comment: Speci men Type: BLOOD SPECIMENOrdering Facility: [facility] Address: [address] [place], [place] [address] Performed By: #### 2 4323-8 ####[facility] LABCLIA [id number] [place] [address] [place] Creatinine [Mass/Vol] 1.34 mg/dL High 0.58-0.[address] [facility] Comment on above: Order Comment: Speci men Type: BLOOD SPECIMENOrdering Facility: [facility] Address: [address] [place] [address] Performed By: #### 2 4323-8 ####[facility] LABIA [id number] [place] [address] [place] Creatinine and Glomerular filtration rate.predicted panel (S/P/Bld) 45 mL/min/1.73m??? Low >=60 [facility] Comment on above: Order Comment: Speci men Type: BLOOD SPECIMENOrdering Facility: [facility] Address: [address] [place] [address] Result Comment: Malorie mated Glomerular Filtration Rate (eGFR) is calculated using the 2020 CKD-EPI creatinine equation. This equation utilizes serum creatinine, sex, and age as parameters. The creatinine assay has traceable calibration to isotope dilution-mass spectrometry. Refer to KDIGO guidelines for clinical interpretation. In patients with unstable renal function, e.g. those with acute kidney injury, the eGFR may not accurately reflect actual GFR. Performed By: #### 2 4323-8 ####[facility] LABIA [id number] [place] [address] [place] Glucose [Mass/Vol] 184 mg/dL High 74-99 [facility] Comment on above: Order Comment: Speci men Type: BLOOD SPECIMENOrdering Facility: [facility] Address: [address] [place] [address] Result Comment: The [place] [employer] (ADA) provides guidance for cutoff values for fasting glucose and random glucose. The ADA defines fasting as no caloric intake for at least 8 hours. Fasting plasma glucose results between 100 to 125 mg/dL indicate increased risk for diabetes (prediabetes).Fasting plasma glucose results greater than or equal to 126 mg/dL meet the criteria for diagnosis of diabetes. In the absence of unequivocal hyperglycemia, results should be confirmed by repeat testing. In a patient with classic symptoms of hyperglycemia or hyperglycemic crisis, random plasma glucose results greater than or equal to 200 mg/dL meet the criteria for diagnosis of diabetes.Reference: Standards of Medical Care in Diabetes 2016, [place] [employer]. Diabetes Care. 2016.39(Suppl 1). Performed By: #### 2 4323-8 ####[facility] LABCLIA [id number] [place] [address] [place] Potassium [Moles/Vol] 3.7 mmol/L Normal 3.7-5.[address] [facility] Comment on above: Order Comment: Speci men Type: BLOOD SPECIMENOrdering Facility: [facility] Address: [address] [place] [address] Performed By: #### 2 4323-8 ####[facility] LABCLIA [id number] [place] [address] [place] Protein [Mass/Vol] 6.9 g/dL Normal 6.3-8.0 [facility] Comment on above: Order Comment: Speci men Type: BLOOD SPECIMENOrdering Facility: [facility] Address: [address] [place] [address] Performed By: #### 2 4323-8 ####[facility] LABCLIA [id number] [place] [address] [place] Sodium [Moles/Vol] 136 mmol/L Normal 136-144 [facility] Comment on above: Order Comment: Speci men Type: BLOOD SPECIMENOrdering Facility: [facility] Address: [address] [place] [address] Performed By: #### 2 4323-8 ####[facility] LABCLIA [id number] [place] [address] [place] Urea nitrogen [Mass/Vol] 16 mg/dL Normal 7-21 [facility] Comment on above: Order Comment: Speci men Type: BLOOD SPECIMENOrdering Facility: [facility] Address: [address] [place] [address] Performed By: #### 2 4323-8 ####[facility] LABCLIA [id number] [place] [address] [place] THERAPY NTon 11-19-2023 THERAPY NT Normal [facility] CASE MANAGEMon 11-18-2023 CASE MANAGEM Normal [facility] CBC panel Auto (Bld)on 11-17 Erythrocyte distribution width (RBC) [Ratio] 15.1 % High 11.5-15.0 [facility] Comment on above: Order Comment: Speci men Type: BLOOD SPECIMENOrdering Facility: [facility] Address: [address] [place] [address] Performed By: #### 5 8410-2 ####[facility] LABCLIA [id number] [place] [address] [place] Hematocrit (Bld) [Volume fraction] 34.4 % Low 36.0-46.0 [facility] Comment on above: Order Comment: Speci men Type: BLOOD SPECIMENOrdering Facility: [facility] Address: [address] [place] [address] Performed By: #### 5 8410-2 ####[facility] LABCLIA [id number] [place] [address] [place] Hemoglobin (Bld) [Mass/Vol] 10.6 g/dL Low 11.5-15.5 [facility] Comment on above: Order Comment: Speci men Type: BLOOD SPECIMENOrdering Facility: [facility] Address: [address] [place] [address] Performed By: #### 5 8410-2 ####[facility] LABCLIA [id number] [place] [address] [place] MCH (RBC) [Entitic mass] 31.8 pg Normal 26.0-34.0 [facility] Comment on above: Order Comment: Speci men Type: BLOOD SPECIMENOrdering Facility: [facility] Address: [address] [place] [address] Performed By: #### 5 8410-2 ####[facility] LABIA [id number] [place] [address] [place] MCHC (RBC) [Mass/Vol] 30.8 g/dL Normal 30.5-36.[address] [facility] Comment on above: Order Comment: Speci men Type: BLOOD SPECIMENOrdering Facility: [facility] Address: [address] [place] [address] Performed By: #### 5 8410-2 ####[facility] LABIA [id number] [place] [address] [place] MCV (RBC) [Entitic vol] 103.3 fL High 80.0-100.0 [facility] Comment on above: Order Comment: Speci men Type: BLOOD SPECIMENOrdering Facility: [facility] Address: [address] [place] [address] Performed By: #### 5 8410-2 ####[facility] LABIA [id number] [place] [address] [place] Nucleated RBC (Bld) [#/Vol] 10*3/uL Normal <0.01 [facility] Comment on above: Order Comment: Speci men Type: BLOOD SPECIMENOrdering Facility: [facility] Address: [address] [place] [address] Performed By: #### 5 8410-2 ####[facility] LABIA [id number] [place] [address] [place] Platelet mean volume (Bld) [Entitic vol] 8.5 fL Low 9.0-12.7 [facility] Comment on above: Order Comment: Speci men Type: BLOOD SPECIMENOrdering Facility: [facility] Address: [address] [place] [address] Performed By: #### 5 8410-2 ####[facility] LABIA [id number] [place] [address] [place] Platelets (Bld) [#/Vol] 315 10*3/uL Normal 150-400 [facility] Comment on above: Order Comment: Speci men Type: BLOOD SPECIMENOrdering Facility: [facility] Address: [address] [place] [address] Performed By: #### 5 8410-2 ####[facility] LABIA [id number] [place] [address] [place] RBC (Bld) [#/Vol] 3.33 10*6/uL Low 3.90-5.20 [facility] Comment on above: Order Comment: Speci men Type: BLOOD SPECIMENOrdering Facility: [facility] Address: [address] [place] [address] Performed By: #### 5 8410-2 ####[facility] [id number] [place] [address] [place] WBC (Bld) [#/Vol] 5.57 10*3/uL Normal 3.70-11.00 [facility] Comment on above: Order Comment: Speci men Type: BLOOD SPECIMENOrdering Facility: [facility] Address: [address] [place] [address] Performed By: #### 5 8410-2 ####[facility] [id number] [place] [id number] [place] CONSULT PROGon 11-18-2023 CONSULT PROG Normal [facility] Comprehensive metabolic 2000 panelon 11-18-2023 Albumin [Mass/Vol] 3.4 g/dL Low 3.9-4.9 [facility] Comment on above: Order Comment: Speci men Type: BLOOD SPECIMENOrdering Facility: [facility] Address: [address] [place] [address] Performed By: #### 2 4323-8 ####[facility] LABCLIA [id number] [place] [id number] [place] ALP [Catalytic activity/Vol] 124 U/L High 34-123 [facility] Comment on above: Order Comment: Speci men Type: BLOOD SPECIMENOrdering Facility: [facility] Address: [address] [place] [address] Performed By: #### 2 4323-8 ####[facility] LABCLIA [id number] [place] [address] [place] ALT [Catalytic activity/Vol] 11 U/L Normal 7-38 [facility] Comment on above: Order Comment: Speci men Type: BLOOD SPECIMENOrdering Facility: [facility] Address: [address] [place] [address] Performed By: #### 2 4323-8 ####[facility] LABCLIA [id number] [place] [address] [place] Anion gap [Moles/Vol] 12 mmol/L Normal 8-[address] [facility] Comment on above: Order Comment: Speci men Type: BLOOD SPECIMENOrdering Facility: [facility] Address: [address] [place] [address] Performed By: #### 2 4323-8 ####[facility] LABCLIA [id number] [place] [address] [place] AST [Catalytic activity/Vol] 16 U/L Normal 13-35 [facility] Comment on above: Order Comment: Speci men Type: BLOOD SPECIMENOrdering Facility: [facility] Address: [address] [place], [place] [address] Performed By: #### 2 4323-8 ####[facility] LABCLIA [id number] [place] [id number] [place] Bilirubin [Mass/Vol] 0.7 mg/dL Normal 0.2-1.3 [facility] Comment on above: Order Comment: Speci men Type: BLOOD SPECIMENOrdering Facility: [facility] Address: [address] [place], [place] [address] Performed By: #### 2 4323-8 ####[facility] LABCLIA [id number] [address] [address] [place] Calcium [Mass/Vol] 9.2 mg/dL Normal 8.5-10.2 [facility] Comment on above: Order Comment: Speci men Type: BLOOD SPECIMENOrdering Facility: [facility] Address: [address] [place] [address] Performed By: #### 2 4323-8 ####[facility] LABCLIA [id number] [place] [address] [place] Chloride [Moles/Vol] 94 mmol/L Low 98-107 [facility] Comment on above: Order Comment: Speci men Type: BLOOD SPECIMENOrdering Facility: [facility] Address: [address] [place] [address] Performed By: #### 2 4323-8 ####[facility] LABCLIA [id number] [place] [address] [place] CO2 [Moles/Vol] 31 mmol/L High 22-30 [facility] Comment on above: Order Comment: Speci men Type: BLOOD SPECIMENOrdering Facility: [facility] Address: [address] [place], [place] [address] Performed By: #### 2 4323-8 ####[facility] LABCLIA [id number] [place] [id number] [place] Creatinine [Mass/Vol] 1.34 mg/dL High 0.58-0.[address] [facility] Comment on above: Order Comment: Speci men Type: BLOOD SPECIMENOrdering Facility: [facility] Address: [address] [place], [place] [address] Performed By: #### 2 4323-8 ####[facility] LABCLIA [id number] [place] [address] [place] Creatinine and Glomerular filtration rate.predicted panel (S/P/Bld) 45 mL/min/1.73m??? Low >=60 [facility] Comment on above: Order Comment: Ernie billy Type: BLOOD SPECIMENOrdering Facility: [facility] Address: [address] [place] [address] Result Comment: Malorie mated Glomerular Filtration Rate (eGFR) is calculated using the 2020 CKD-EPI creatinine equation. This equation utilizes serum creatinine, sex, and age as parameters. The creatinine assay has traceable calibration to isotope dilution-mass spectrometry. Refer to KDIGO guidelines for clinical interpretation. In patients with unstable renal function, e.g. those with acute kidney injury, the eGFR may not accurately reflect actual GFR. Performed By: #### 2 4323-8 ####[facility] LABIA [id number] [place] [address] [place] Glucose [Mass/Vol] 178 mg/dL High 74-99 [facility] Comment on above: Order Comment: Ernie billy Type: BLOOD SPECIMENOrdering Facility: [facility] Address: [address] [place] [address] Result Comment: The [place] [employer] (ADA) provides guidance for cutoff values for fasting glucose and random glucose. The ADA defines fasting as no caloric intake for at least 8 hours. Fasting plasma glucose results between 100 to 125 mg/dL indicate increased risk for diabetes (prediabetes).Fasting plasma glucose results greater than or equal to 126 mg/dL meet the criteria for diagnosis of diabetes. In the absence of unequivocal hyperglycemia, results should be confirmed by repeat testing. In a patient with classic symptoms of hyperglycemia or hyperglycemic crisis, random plasma glucose results greater than or equal to 200 mg/dL meet the criteria for diagnosis of diabetes.Reference: Standards of Medical Care in Diabetes 2016, [place] [employer]. Diabetes Care. 2016.39(Suppl 1). Performed By: #### 2 4323-8 ####[facility] LABIA [id number] [place] [address] [place] Potassium [Moles/Vol] 3.8 mmol/L Normal 3.7-5.[address] [facility] Comment on above: Order Comment: Speci men Type: BLOOD SPECIMENOrdering Facility: [facility] Address: [address] [place] [address] Performed By: #### 2 4323-8 ####[facility] LABCLIA [id number] [place] [address] [place] Protein [Mass/Vol] 6.7 g/dL Normal 6.3-8.0 [facility] Comment on above: Order Comment: Speci men Type: BLOOD SPECIMENOrdering Facility: [facility] Address: [address] [place] [address] Performed By: #### 2 4323-8 ####[facility] LABCLIA [id number] [place] [address] [place] Sodium [Moles/Vol] 137 mmol/L Normal 136-144 [facility] Comment on above: Order Comment: Speci men Type: BLOOD SPECIMENOrdering Facility: [facility] Address: [address] [place] [address] Performed By: #### 2 4323-8 ####[facility] LABCLIA [id number] [place] [address] [place] Urea nitrogen [Mass/Vol] 16 mg/dL Normal 7-21 [facility] Comment on above: Order Comment: Speci men Type: BLOOD SPECIMENOrdering Facility: [facility] Address: [address] [place] [address] Performed By: #### 2 4323-8 ####[facility] LABCLIA [id number] [place] [id number] [place] ECG COMPLETEon 11-18-2023 ECG COMPLETE Normal [facility] XR CHEST 1V FRONTAL PORTon 0 11-18-2023 XR CHEST 1V FRONTAL PORT Normal [facility] CASE MANAGEMon 11-17-2023 CASE MANAGEM Normal [facility] CBC panel Auto (Bld)on 11-16 Erythrocyte distribution width (RBC) [Ratio] 14.9 % Normal 11.5-15.0 [facility] Comment on above: Order Comment: Speci men Type: BLOOD SPECIMENOrdering Facility: [facility] Address: [address] [place] [address] Performed By: #### 5 8410-2 ####[facility] LABCLIA [id number] [place] [address] [place] Hematocrit (Bld) [Volume fraction] 32.5 % Low 36.0-46.0 [facility] Comment on above: Order Comment: Speci men Type: BLOOD SPECIMENOrdering Facility: [facility] Address: [address] [place] [address] Performed By: #### 5 8410-2 ####[facility] LABIA [id number] [place] [address] [place] Hemoglobin (Bld) [Mass/Vol] 10.3 g/dL Low 11.5-15.5 [facility] Comment on above: Order Comment: Speci men Type: BLOOD SPECIMENOrdering Facility: [facility] Address: [address] [place] [address] Performed By: #### 5 8410-2 ####[facility] LABIA [id number] [place] [address] [place] MCH (RBC) [Entitic mass] 32.0 pg Normal 26.0-34.0 [facility] Comment on above: Order Comment: Speci men Type: BLOOD SPECIMENOrdering Facility: [facility] Address: [address] [place] [address] Performed By: #### 5 8410-2 ####[facility] LABCLIA [id number] [place] [address] [place] MCHC (RBC) [Mass/Vol] 31.7 g/dL Normal 30.5-36.[address] [facility] Comment on above: Order Comment: Speci men Type: BLOOD SPECIMENOrdering Facility: [facility] Address: [address] [place] [address] Performed By: #### 5 8410-2 ####[facility] [id number] [place] [address] [place] MCV (RBC) [Entitic vol] 100.9 fL High 80.0-100.0 [facility] Comment on above: Order Comment: Speci men Type: BLOOD SPECIMENOrdering Facility: [facility] Address: [address] [place] [address] Performed By: #### 5 8410-2 ####[facility] [id number] [place] [address] [place] Nucleated RBC (Bld) [#/Vol] 10*3/uL Normal <0.01 [facility] Comment on above: Order Comment: Speci men Type: BLOOD SPECIMENOrdering Facility: [facility] Address: [address] [place] [address] Performed By: #### 5 8410-2 ####[facility] [id number] [place] [address] [place] Platelet mean volume (Bld) [Entitic vol] 8.3 fL Low 9.0-12.7 [facility] Comment on above: Order Comment: Speci men Type: BLOOD SPECIMENOrdering Facility: [facility] Address: [address] [place] [address] Performed By: #### 5 8410-2 ####[facility] LABIA [id number] [place] [address] [place] Platelets (Bld) [#/Vol] 334 10*3/uL Normal 150-400 [facility] Comment on above: Order Comment: Speci men Type: BLOOD SPECIMENOrdering Facility: [facility] Address: [address] [place] [address] Performed By: #### 5 8410-2 ####[facility] LABCLIA [id number] [address] [address] [place] RBC (Bld) [#/Vol] 3.22 10*6/uL Low 3.90-5.20 [facility] Comment on above: Order Comment: Speci men Type: BLOOD SPECIMENOrdering Facility: [facility] Address: [address] [place] [address] Performed By: #### 5 8410-2 ####[facility] LABIA [id number] [place] [address] [place] WBC (Bld) [#/Vol] 6.26 10*3/uL Normal 3.70-11.00 [facility] Comment on above: Order Comment: Speci men Type: BLOOD SPECIMENOrdering Facility: [facility] Address: [address] [place] [address] Performed By: #### 5 8410-2 ####[facility] LABIA [id number] [place] [address] [place] CONSULT PROGon 11-17-2023 CONSULT PROG Normal [facility] Comprehensive metabolic 2000 panelon 11-17-2023 Albumin [Mass/Vol] 3.5 g/dL Low 3.9-4.9 [facility] Comment on above: Order Comment: Speci men Type: BLOOD SPECIMENOrdering Facility: [facility] Address: [address] [place] [address] Performed By: #### 2 4323-8 ####[facility] LABIA [id number] [place] [address] [place] ALP [Catalytic activity/Vol] 118 U/L Normal 34-123 [facility] Comment on above: Order Comment: Speci men Type: BLOOD SPECIMENOrdering Facility: [facility] Address: [address] [place] [address] Performed By: #### 2 4323-8 ####[facility] LABCLIA [id number] [place] [address] [place] ALT [Catalytic activity/Vol] 11 U/L Normal 7-38 [facility] Comment on above: Order Comment: Speci men Type: BLOOD SPECIMENOrdering Facility: [facility] Address: [address] [place] [address] Performed By: #### 2 4323-8 ####[facility] LABCLIA [id number] [place] [address] [place] Anion gap [Moles/Vol] 11 mmol/L Normal 8-[address] [facility] Comment on above: Order Comment: Speci men Type: BLOOD SPECIMENOrdering Facility: [facility] Address: [address] [place] [address] Performed By: #### 2 4323-8 ####[facility] LABCLIA [id number] [place] [address] [place] AST [Catalytic activity/Vol] 16 U/L Normal 13-35 [facility] Comment on above: Order Comment: Speci men Type: BLOOD SPECIMENOrdering Facility: [facility] Address: [address] [place] [address] Performed By: #### 2 4323-8 ####[facility] LABCLIA [id number] [place] [address] [place] Bilirubin [Mass/Vol] 0.6 mg/dL Normal 0.2-1.3 [facility] Comment on above: Order Comment: Speci men Type: BLOOD SPECIMENOrdering Facility: [facility] Address: [address] [place], [place] [address] Performed By: #### 2 4323-8 ####[facility] LABCLIA [id number] [place] [address] [place] Calcium [Mass/Vol] 9.6 mg/dL Normal 8.5-10.2 [facility] Comment on above: Order Comment: Speci men Type: BLOOD SPECIMENOrdering Facility: [facility] Address: [address] [place] [address] Performed By: #### 2 4323-8 ####[facility] LABCLIA [id number] [place] [address] [place] Chloride [Moles/Vol] 93 mmol/L Low 98-107 [facility] Comment on above: Order Comment: Speci men Type: BLOOD SPECIMENOrdering Facility: [facility] Address: [address] [place] [address] Performed By: #### 2 4323-8 ####[facility] LABCLIA [id number] [place] [address] [place] CO2 [Moles/Vol] 31 mmol/L High 22-30 [facility] Comment on above: Order Comment: Speci men Type: BLOOD SPECIMENOrdering Facility: [facility] Address: [address] [place] [address] Performed By: #### 2 4323-8 ####[facility] LABCLIA [id number] [place] [address] [place] Creatinine [Mass/Vol] 1.39 mg/dL High 0.58-0.[address] [facility] Comment on above: Order Comment: Speci men Type: BLOOD SPECIMENOrdering Facility: [facility] Address: [address] [place] [address] Performed By: #### 2 4323-8 ####[facility] LABCLIA [id number] [place] [address] [place] Creatinine and Glomerular filtration rate.predicted panel (S/P/Bld) 43 mL/min/1.73m??? Low >=60 [facility] Comment on above: Order Comment: Speci men Type: BLOOD SPECIMENOrdering Facility: [facility] Address: [address] [place] [address] Result Comment: Malorie mated Glomerular Filtration Rate (eGFR) is calculated using the 2020 CKD-EPI creatinine equation. This equation utilizes serum creatinine, sex, and age as parameters. The creatinine assay has traceable calibration to isotope dilution-mass spectrometry. Refer to KDIGO guidelines for clinical interpretation. In patients with unstable renal function, e.g. those with acute kidney injury, the eGFR may not accurately reflect actual GFR. Performed By: #### 2 4323-8 ####[facility] LABCLIA [id number] [place] [address] [place] Glucose [Mass/Vol] 167 mg/dL High 74-99 [facility] Comment on above: Order Comment: Ernie billy Type: BLOOD SPECIMENOrdering Facility: [facility] Address: [address] [place] [address] Result Comment: The [place] Diabetes [employer] (ADA) provides guidance for cutoff values for fasting glucose and random glucose. The ADA defines fasting as no caloric intake for at least 8 hours. Fasting plasma glucose results between 100 to 125 mg/dL indicate increased risk for diabetes (prediabetes).Fasting plasma glucose results greater than or equal to 126 mg/dL meet the criteria for diagnosis of diabetes. In the absence of unequivocal hyperglycemia, results should be confirmed by repeat testing. In a patient with classic symptoms of hyperglycemia or hyperglycemic crisis, random plasma glucose results greater than or equal to 200 mg/dL meet the criteria for diagnosis of diabetes.Reference: Standards of Medical Care in Diabetes 2016, [place] [employer]. Diabetes Care. 2016.39(Suppl 1). Performed By: #### 2 4323-8 ####[facility] LABCLIA [id number] [place] [id number] [place] Potassium [Moles/Vol] 3.8 mmol/L Normal 3.7-5.[address] [facility] Comment on above: Order Comment: Ernie billy Type: BLOOD SPECIMENOrdering Facility: [facility] Address: [address] [place] [address] Performed By: #### 2 4323-8 ####[facility] LABCLIA [id number] [address] [address] [place] Protein [Mass/Vol] 6.6 g/dL Normal 6.3-8.0 [facility] Comment on above: Order Comment: Speci men Type: BLOOD SPECIMENOrdering Facility: [facility] Address: [address] [place] [address] Performed By: #### 2 4323-8 ####[facility] LABCLIA [id number] [place] [address] [place] Sodium [Moles/Vol] 135 mmol/L Low 136-144 [facility] Comment on above: Order Comment: Speci men Type: BLOOD SPECIMENOrdering Facility: [facility] Address: [address] [place] [address] Performed By: #### 2 4323-8 ####[facility] LABCLIA [id number] [place] [address] [place] Urea nitrogen [Mass/Vol] 15 mg/dL Normal 7-21 [facility] Comment on above: Order Comment: Speci men Type: BLOOD SPECIMENOrdering Facility: [facility] Address: [address] [place] [address] Performed By: #### 2 4323-8 ####[facility] LABCLIA [id number] [place] [address] [place] NUTRITIONon 11-17-2023 NUTRITION Normal [facility] THERAPY NTon 11-17-2023 THERAPY NT Normal [facility] CBC panel Auto (Bld)on 11-15 Erythrocyte distribution width (RBC) [Ratio] 15.1 % High 11.5-15.0 [facility] Comment on above: Order Comment: Speci men Type: BLOOD SPECIMENOrdering Facility: [facility] Address: [address] [place] [address] Performed By: #### 5 8410-2 ####[facility] LABCLIA [id number] [place] [address] [place] Hematocrit (Bld) [Volume fraction] 33.9 % Low 36.0-46.0 [facility] Comment on above: Order Comment: Speci men Type: BLOOD SPECIMENOrdering Facility: [facility] Address: [address] [place] [address] Performed By: #### 5 8410-2 ####[facility] LABIA [id number] [place] [address] [place] Hemoglobin (Bld) [Mass/Vol] 10.4 g/dL Low 11.5-15.5 [facility] Comment on above: Order Comment: Speci men Type: BLOOD SPECIMENOrdering Facility: [facility] Address: [address] [place] [address] Performed By: #### 5 8410-2 ####[facility] LABIA [id number] [place] [address] [place] MCH (RBC) [Entitic mass] 31.9 pg Normal 26.0-34.0 [facility] Comment on above: Order Comment: Speci men Type: BLOOD SPECIMENOrdering Facility: [facility] Address: [address] [place] [address] Performed By: #### 5 8410-2 ####[facility] LABIA [id number] [place] [address] [place] MCHC (RBC) [Mass/Vol] 30.7 g/dL Normal 30.5-36.[address] [facility] Comment on above: Order Comment: Speci men Type: BLOOD SPECIMENOrdering Facility: [facility] Address: [address] [place] [address] Performed By: #### 5 8410-2 ####[facility] [id number] [place] [address] [place] MCV (RBC) [Entitic vol] 104.0 fL High 80.0-100.0 [facility] Comment on above: Order Comment: Speci men Type: BLOOD SPECIMENOrdering Facility: [facility] Address: [address] [place] [address] Performed By: #### 5 8410-2 ####[facility] LABCLIA [id number] [place] [address] [place] Nucleated RBC (Bld) [#/Vol] 10*3/uL Normal <0.01 [facility] Comment on above: Order Comment: Speci men Type: BLOOD SPECIMENOrdering Facility: [facility] Address: [address] [place] [address] Performed By: #### 5 8410-2 ####[facility] LABIA [id number] [place] [address] [place] Platelet mean volume (Bld) [Entitic vol] 8.5 fL Low 9.0-12.7 [facility] Comment on above: Order Comment: Speci men Type: BLOOD SPECIMENOrdering Facility: [facility] Address: [address] [place] [address] Performed By: #### 5 8410-2 ####[facility] LABIA [id number] [place] [address] [place] Platelets (Bld) [#/Vol] 341 10*3/uL Normal 150-400 [facility] Comment on above: Order Comment: Speci men Type: BLOOD SPECIMENOrdering Facility: [facility] Address: [address] [place] [address] Performed By: #### 5 8410-2 ####[facility] LABIA [id number] [place] [address] [place] RBC (Bld) [#/Vol] 3.26 10*6/uL Low 3.90-5.20 [facility] Comment on above: Order Comment: Speci men Type: BLOOD SPECIMENOrdering Facility: [facility] Address: [address] [place] [address] Performed By: #### 5 8410-2 ####[facility] LABIA [id number] [place] [address] [place] WBC (Bld) [#/Vol] 6.99 10*3/uL Normal 3.70-11.00 [facility] Comment on above: Order Comment: Speci men Type: BLOOD SPECIMENOrdering Facility: [facility] Address: [address] [place] [address] Performed By: #### 5 8410-2 ####[facility] LABCLIA [id number] [place] [address] [place] CNDSon 11-16-2023 CNDS Normal [facility] CONSULT PROGon 11-16-2023 CONSULT PROG Normal [facility] Comprehensive metabolic 2000 panelon 11-16-2023 Albumin [Mass/Vol] 3.4 g/dL Low 3.9-4.9 [facility] Comment on above: Order Comment: Speci men Type: BLOOD SPECIMENOrdering Facility: [facility] Address: [address] [place] [address] Performed By: #### 2 4323-8 ####[facility] LABCLIA [id number] [place] [address] [place] ALP [Catalytic activity/Vol] 120 U/L Normal 34-123 [facility] Comment on above: Order Comment: Speci men Type: BLOOD SPECIMENOrdering Facility: [facility] Address: [address] [place] [address] Performed By: #### 2 4323-8 ####[facility] LABCLIA [id number] [place] [address] [place] ALT [Catalytic activity/Vol] 11 U/L Normal 7-38 [facility] Comment on above: Order Comment: Speci men Type: BLOOD SPECIMENOrdering Facility: [facility] Address: [address] [place] [address] Performed By: #### 2 4323-8 ####[facility] LABCLIA [id number] [place] [address] [place] Anion gap [Moles/Vol] 11 mmol/L Normal 8-[address] [facility] Comment on above: Order Comment: Speci men Type: BLOOD SPECIMENOrdering Facility: [facility] Address: [address] [place] [address] Performed By: #### 2 4323-8 ####[facility] LABCLIA [id number] [place] [address] [place] AST [Catalytic activity/Vol] 17 U/L Normal 13-35 [facility] Comment on above: Order Comment: Speci men Type: BLOOD SPECIMENOrdering Facility: [facility] Address: [address] [place] [address] Performed By: #### 2 4323-8 ####[facility] LABCLIA [id number] [place] [address] [place] Bilirubin [Mass/Vol] 0.6 mg/dL Normal 0.2-1.3 [facility] Comment on above: Order Comment: Speci men Type: BLOOD SPECIMENOrdering Facility: [facility] Address: [address] [place] [address] Performed By: #### 2 4323-8 ####[facility] LABCLIA [id number] [place] [address] [place] Calcium [Mass/Vol] 9.3 mg/dL Normal 8.5-10.2 [facility] Comment on above: Order Comment: Speci men Type: BLOOD SPECIMENOrdering Facility: [facility] Address: [address] [place] [id number] Performed By: #### 2 4323-8 ####[facility] LABCLIA [id number] [place] [address] [place] Chloride [Moles/Vol] 94 mmol/L Low 98-107 [facility] Comment on above: Order Comment: Speci men Type: BLOOD SPECIMENOrdering Facility: [facility] Address: [address] [place] [address] Performed By: #### 2 4323-8 ####[facility] LABCLIA [id number] [place] [address] [place] CO2 [Moles/Vol] 31 mmol/L High 22-30 [facility] Comment on above: Order Comment: Speci men Type: BLOOD SPECIMENOrdering Facility: [facility] Address: [address] [place] [address] Performed By: #### 2 4323-8 ####[facility] LABCLIA [id number] [place] [address] [place] Creatinine [Mass/Vol] 1.25 mg/dL High 0.58-0.[address] [facility] Comment on above: Order Comment: Speci men Type: BLOOD SPECIMENOrdering Facility: [facility] Address: [address] [place] [address] Performed By: #### 2 4323-8 ####[facility] LABIA [id number] [place] [address] [place] Creatinine and Glomerular filtration rate.predicted panel (S/P/Bld) 49 mL/min/1.73m??? Low >=60 [facility] Comment on above: Order Comment: Speci men Type: BLOOD SPECIMENOrdering Facility: [facility] Address: [address] [place] [address] Result Comment: Malorie mated Glomerular Filtration Rate (eGFR) is calculated using the 2020 CKD-EPI creatinine equation. This equation utilizes serum creatinine, sex, and age as parameters. The creatinine assay has traceable calibration to isotope dilution-mass spectrometry. Refer to KDIGO guidelines for clinical interpretation. In patients with unstable renal function, e.g. those with acute kidney injury, the eGFR may not accurately reflect actual GFR. Performed By: #### 2 4323-8 ####[facility] LABCLIA [id number] [place] [id number] [place] Glucose [Mass/Vol] 165 mg/dL High 74-99 [facility] Comment on above: Order Comment: Speci men Type: BLOOD SPECIMENOrdering Facility: [facility] Address: [address] [place], [place] [id number] Result Comment: The [place] [employer] (ADA) provides guidance for cutoff values for fasting glucose and random glucose. The ADA defines fasting as no caloric intake for at least 8 hours. Fasting plasma glucose results between 100 to 125 mg/dL indicate increased risk for diabetes (prediabetes).Fasting plasma glucose results greater than or equal to 126 mg/dL meet the criteria for diagnosis of diabetes. In the absence of unequivocal hyperglycemia, results should be confirmed by repeat testing. In a patient with classic symptoms of hyperglycemia or hyperglycemic crisis, random plasma glucose results greater than or equal to 200 mg/dL meet the criteria for diagnosis of diabetes.Reference: Standards of Medical Care in Diabetes 2016, [place] [employer]. Diabetes Care. 2016.39(Suppl 1). Performed By: #### 2 4323-8 ####[facility] LABCLIA [id number] [place] [address] [place] Potassium [Moles/Vol] 3.7 mmol/L Normal 3.7-5.[address] [facility] Comment on above: Order Comment: Speci men Type: BLOOD SPECIMENOrdering Facility: [facility] Address: [address] [place] [address] Performed By: #### 2 4323-8 ####[facility] LABCLIA [id number] [place] [address] [place] Protein [Mass/Vol] 6.6 g/dL Normal 6.3-8.0 [facility] Comment on above: Order Comment: Speci men Type: BLOOD SPECIMENOrdering Facility: [facility] Address: [address] [place], [place] [address] Performed By: #### 2 4323-8 ####[facility] LABCLIA [id number] [place] [address] [place] Sodium [Moles/Vol] 136 mmol/L Normal 136-144 [facility] Comment on above: Order Comment: Speci men Type: BLOOD SPECIMENOrdering Facility: [facility] Address: [address] [place] [address] Performed By: #### 2 4323-8 ####[facility] LABCLIA [id number] [place] [address] [place] Urea nitrogen [Mass/Vol] 13 mg/dL Normal 7-21 [facility] Comment on above: Order Comment: Speci men Type: BLOOD SPECIMENOrdering Facility: [facility] Address: [address] [place] [address] Performed By: #### 2 4323-8 ####[facility] LABCLIA [id number] [place] [address] [place] XR CHEST 1V FRONTAL PORTon 0 11-16-2023 XR CHEST 1V FRONTAL PORT Normal [facility] CASE MANAGEMon 11-15-2023 CASE MANAGEM Normal [facility] CBC panel Auto (Bld)on 11-14 Erythrocyte distribution width (RBC) [Ratio] 15.1 % High 11.5-15.0 [facility] Comment on above: Order Comment: Speci men Type: BLOOD SPECIMENOrdering Facility: [facility] Address: [address] [place] [address] Performed By: #### 5 8410-2 ####[facility] LABCLIA [id number] [place] [address] [place] Hematocrit (Bld) [Volume fraction] 32.2 % Low 36.0-46.0 [facility] Comment on above: Order Comment: Speci men Type: BLOOD SPECIMENOrdering Facility: [facility] Address: [address] [place] [address] Performed By: #### 5 8410-2 ####[facility] LABCLIA [id number] [place] [address] [place] Hemoglobin (Bld) [Mass/Vol] 9.8 g/dL Low 11.5-15.5 [facility] Comment on above: Order Comment: Speci men Type: BLOOD SPECIMENOrdering Facility: [facility] Address: [address] [place] [address] Performed By: #### 5 8410-2 ####[facility] [id number] [place] [address] [place] MCH (RBC) [Entitic mass] 31.2 pg Normal 26.0-34.0 [facility] Comment on above: Order Comment: Speci men Type: BLOOD SPECIMENOrdering Facility: [facility] Address: [address] [place] [address] Performed By: #### 5 8410-2 ####[facility] LABIA [id number] [place] [address] [place] MCHC (RBC) [Mass/Vol] 30.4 g/dL Low 30.5-36.[address] [facility] Comment on above: Order Comment: Speci men Type: BLOOD SPECIMENOrdering Facility: [facility] Address: [address] [place] [address] Performed By: #### 5 8410-2 ####[facility] [id number] [place] [address] [place] MCV (RBC) [Entitic vol] 102.5 fL High 80.0-100.0 [facility] Comment on above: Order Comment: Speci men Type: BLOOD SPECIMENOrdering Facility: [facility] Address: [address] [place] [address] Performed By: #### 5 8410-2 ####[facility] LABIA [id number] [place] [address] [place] Nucleated RBC (Bld) [#/Vol] 10*3/uL Normal <0.01 [facility] Comment on above: Order Comment: Speci men Type: BLOOD SPECIMENOrdering Facility: [facility] Address: [address] [place] [address] Performed By: #### 5 8410-2 ####[facility] LABCLIA [id number] [address] [address] [place] Platelet mean volume (Bld) [Entitic vol] 8.5 fL Low 9.0-12.7 [facility] Comment on above: Order Comment: Speci men Type: BLOOD SPECIMENOrdering Facility: [facility] Address: [address] [place] [address] Performed By: #### 5 8410-2 ####[facility] LABCLIA [id number] [place] [address] [place] Platelets (Bld) [#/Vol] 369 10*3/uL Normal 150-400 [facility] Comment on above: Order Comment: Speci men Type: BLOOD SPECIMENOrdering Facility: [facility] Address: [address] [place] [address] Performed By: #### 5 8410-2 ####[facility] LABIA [id number] [place] [address] [place] RBC (Bld) [#/Vol] 3.14 10*6/uL Low 3.90-5.20 [facility] Comment on above: Order Comment: Speci men Type: BLOOD SPECIMENOrdering Facility: [facility] Address: [address] [place] [address] Performed By: #### 5 8410-2 ####[facility] LABIA [id number] [place] [address] [place] WBC (Bld) [#/Vol] 6.27 10*3/uL Normal 3.70-11.00 [facility] Comment on above: Order Comment: Speci men Type: BLOOD SPECIMENOrdering Facility: [facility] Address: [address] [place] [address] Performed By: #### 5 8410-2 ####[facility] LABIA [id number] [place] [address] [place] CONSULT PROGon 11-15-2023 CONSULT PROG Normal [facility] Comprehensive metabolic 2000 panelon 11-15-2023 Albumin [Mass/Vol] 3.3 g/dL Low 3.9-4.9 [facility] Comment on above: Order Comment: Speci men Type: BLOOD SPECIMENOrdering Facility: [facility] Address: [address] [place] [address] Result Comment: Abdullahi ected result: Previously reported as 4.0 g/dL on 11/15/2023 at 7:04 AM EDT. Performed By: #### 2 4323-8 ####[facility] LABCLIA [id number] [place] [address] [place] ALP [Catalytic activity/Vol] 109 U/L Normal 34-123 [facility] Comment on above: Order Comment: Speci men Type: BLOOD SPECIMENOrdering Facility: [facility] Address: [address] [place] [address] Performed By: #### 2 4323-8 ####[facility] LABCLIA [id number] [place] [address] [place] ALT [Catalytic activity/Vol] 12 U/L Normal 7-38 [facility] Comment on above: Order Comment: Speci men Type: BLOOD SPECIMENOrdering Facility: [facility] Address: [address] [place] [address] Performed By: #### 2 4323-8 ####[facility] LABCLIA [id number] [place] [address] [place] Anion gap [Moles/Vol] 13 mmol/L Normal 8-[address] [facility] Comment on above: Order Comment: Speci men Type: BLOOD SPECIMENOrdering Facility: [facility] Address: [address] [place] [address] Performed By: #### 2 4323-8 ####[facility] LABCLIA [id number] [address] [id number] [address] [place] AST [Catalytic activity/Vol] 19 U/L Normal 13-35 [facility] Comment on above: Order Comment: Speci men Type: BLOOD SPECIMENOrdering Facility: [facility] Address: [address] [place] [address] Performed By: #### 2 4323-8 ####[facility] LABCLIA [id number] [place] [address] [place] Bilirubin [Mass/Vol] 0.6 mg/dL Normal 0.2-1.3 [facility] Comment on above: Order Comment: Speci men Type: BLOOD SPECIMENOrdering Facility: [facility] Address: [address] [place] [address] Performed By: #### 2 4323-8 ####[facility] LABCLIA [id number] [place] [address] [place] Calcium [Mass/Vol] 9.5 mg/dL Normal 8.5-10.2 [facility] Comment on above: Order Comment: Speci men Type: BLOOD SPECIMENOrdering Facility: [facility] Address: [address] [place] [address] Performed By: #### 2 4323-8 ####[facility] LABCLIA [id number] [place] [address] [place] Chloride [Moles/Vol] 97 mmol/L Low 98-107 [facility] Comment on above: Order Comment: Speci men Type: BLOOD SPECIMENOrdering Facility: [facility] Address: [address] [place] [address] Performed By: #### 2 4323-8 ####[facility] LABCLIA [id number] [place] [address] [place] CO2 [Moles/Vol] 28 mmol/L Normal 22-30 [facility] Comment on above: Order Comment: Speci men Type: BLOOD SPECIMENOrdering Facility: [facility] Address: [address] [place] [address] Performed By: #### 2 4323-8 ####[facility] LABCLIA [id number] [place] [address] [place] Creatinine [Mass/Vol] 1.34 mg/dL High 0.58-0.[address] [facility] Comment on above: Order Comment: Speci men Type: BLOOD SPECIMENOrdering Facility: [facility] Address: [address] [place] [address] Performed By: #### 2 4323-8 ####[facility] LABCLIA [id number] [place] [address] [place] Creatinine and Glomerular filtration rate.predicted panel (S/P/Bld) 45 mL/min/1.73m??? Low >=60 [facility] Comment on above: Order Comment: Speci men Type: BLOOD SPECIMENOrdering Facility: [facility] Address: [address] [place] [address] Result Comment: Malorie mated Glomerular Filtration Rate (eGFR) is calculated using the 2020 CKD-EPI creatinine equation. This equation utilizes serum creatinine, sex, and age as parameters. The creatinine assay has traceable calibration to isotope dilution-mass spectrometry. Refer to KDIGO guidelines for clinical interpretation. In patients with unstable renal function, e.g. those with acute kidney injury, the eGFR may not accurately reflect actual GFR. Performed By: #### 2 4323-8 ####[facility] LABIA [id number] [place] [address] [place] Glucose [Mass/Vol] 169 mg/dL High 74-99 [facility] Comment on above: Order Comment: Speci men Type: BLOOD SPECIMENOrdering Facility: [facility] Address: [address] [place] [address] Result Comment: The [place] Diabetes [employer] (ADA) provides guidance for cutoff values for fasting glucose and random glucose. The ADA defines fasting as no caloric intake for at least 8 hours. Fasting plasma glucose results between 100 to 125 mg/dL indicate increased risk for diabetes (prediabetes).Fasting plasma glucose results greater than or equal to 126 mg/dL meet the criteria for diagnosis of diabetes. In the absence of unequivocal hyperglycemia, results should be confirmed by repeat testing. In a patient with classic symptoms of hyperglycemia or hyperglycemic crisis, random plasma glucose results greater than or equal to 200 mg/dL meet the criteria for diagnosis of diabetes.Reference: Standards of Medical Care in Diabetes 2016, [place] [employer]. Diabetes Care. 2016.39(Suppl 1). Performed By: #### 2 4323-8 ####[facility] LABCLIA [id number] [place] [address] [place] Potassium [Moles/Vol] 3.7 mmol/L Normal 3.7-5.[address] [facility] Comment on above: Order Comment: Speci men Type: BLOOD SPECIMENOrdering Facility: [facility] Address: [address] [place] [address] Performed By: #### 2 4323-8 ####[facility] LABCLIA [id number] [place] [address] [place] Protein [Mass/Vol] 6.5 g/dL Normal 6.3-8.0 [facility] Comment on above: Order Comment: Speci men Type: BLOOD SPECIMENOrdering Facility: [facility] Address: [address] [place] [address] Performed By: #### 2 4323-8 ####[facility] LABCLIA [id number] [place] [address] [place] Sodium [Moles/Vol] 138 mmol/L Normal 136-144 [facility] Comment on above: Order Comment: Speci men Type: BLOOD SPECIMENOrdering Facility: [facility] Address: [address] [place] [address] Performed By: #### 2 4323-8 ####[facility] LABCLIA [id number] [place] [address] [place] Urea nitrogen [Mass/Vol] 12 mg/dL Normal 7-21 [facility] Comment on above: Order Comment: Speci men Type: BLOOD SPECIMENOrdering Facility: [facility] Address: [address] [place] [address] Performed By: #### 2 4323-8 ####[facility] [id number] [place] [address] [place] THERAPY NTon 11-15-2023 THERAPY NT Normal [facility] CBC panel Auto (Bld)on 11-13 Erythrocyte distribution width (RBC) [Ratio] 15.5 % High 11.5-15.0 [facility] Comment on above: Order Comment: Speci men Type: BLOOD SPECIMENOrdering Facility: [facility] Address: [address] [place] [address] Performed By: #### 5 8410-2 ####[facility] [id number] [place] [address] [place] Hematocrit (Bld) [Volume fraction] 31.9 % Low 36.0-46.0 [facility] Comment on above: Order Comment: Speci men Type: BLOOD SPECIMENOrdering Facility: [facility] Address: [address] [place] [address] Performed By: #### 5 8410-2 ####[facility] LABIA [id number] [address] [place] Hemoglobin (Bld) [Mass/Vol] 9.7 g/dL Low 11.5-15.5 [facility] Comment on above: Order Comment: Speci men Type: BLOOD SPECIMENOrdering Facility: [facility] Address: [address] [place] [address] Performed By: #### 5 8410-2 ####[facility] LABIA [id number] [place] [address] [place] MCH (RBC) [Entitic mass] 31.2 pg Normal 26.0-34.0 [facility] Comment on above: Order Comment: Speci men Type: BLOOD SPECIMENOrdering Facility: [facility] Address: [address] [place] [address] Performed By: #### 5 8410-2 ####[facility] LABIA [id number] [place] [address] [place] MCHC (RBC) [Mass/Vol] 30.4 g/dL Low 30.5-36.[address] [facility] Comment on above: Order Comment: Speci men Type: BLOOD SPECIMENOrdering Facility: [facility] Address: [address] [place] [address] Performed By: #### 5 8410-2 ####[facility] LABIA [id number] [place] [address] [place] MCV (RBC) [Entitic vol] 102.6 fL High 80.0-100.0 [facility] Comment on above: Order Comment: Speci men Type: BLOOD SPECIMENOrdering Facility: [facility] Address: [address] [place] [address] Performed By: #### 5 8410-2 ####[facility] LABIA [id number] [place] [address] [place] Nucleated RBC (Bld) [#/Vol] 10*3/uL Normal <0.01 [facility] Comment on above: Order Comment: Speci men Type: BLOOD SPECIMENOrdering Facility: [facility] Address: [address] [place] [address] Performed By: #### 5 8410-2 ####[facility] LABCLIA [id number] [place] [address] [place] Platelet mean volume (Bld) [Entitic vol] 8.3 fL Low 9.0-12.7 [facility] Comment on above: Order Comment: Speci men Type: BLOOD SPECIMENOrdering Facility: [facility] Address: [address] [place] [address] Performed By: #### 5 8410-2 ####[facility] LABCLIA [id number] [place] [address] [place] Platelets (Bld) [#/Vol] 370 10*3/uL Normal 150-400 [facility] Comment on above: Order Comment: Speci men Type: BLOOD SPECIMENOrdering Facility: [facility] Address: [address] [place] [address] Performed By: #### 5 8410-2 ####[facility] LABCLIA [id number] [place] [address] [place] RBC (Bld) [#/Vol] 3.11 10*6/uL Low 3.90-5.20 [facility] Comment on above: Order Comment: Speci men Type: BLOOD SPECIMENOrdering Facility: [facility] Address: [address] [place] [address] Performed By: #### 5 8410-2 ####[facility] LABIA [id number] [place] [address] [place] WBC (Bld) [#/Vol] 6.68 10*3/uL Normal 3.70-11.00 [facility] Comment on above: Order Comment: Speci men Type: BLOOD SPECIMENOrdering Facility: [facility] Address: [address] [place] [address] Performed By: #### 5 8410-2 ####[facility] LABIA [id number] [place] [address] [place] CONSULT PROGon 11-14-2023 CONSULT PROG Normal [facility] Comprehensive metabolic 2000 panelon 11-14-2023 Albumin [Mass/Vol] 3.2 g/dL Low 3.9-4.9 [facility] Comment on above: Order Comment: Speci men Type: BLOOD SPECIMENOrdering Facility: [facility] Address: [address] [place] [address] Performed By: #### 2 4323-8 ####[facility] LABCLIA [id number] [place] [id number] [place] ALP [Catalytic activity/Vol] 112 U/L Normal 34-123 [facility] Comment on above: Order Comment: Speci men Type: BLOOD SPECIMENOrdering Facility: [facility] Address: [address] [place] [address] Performed By: #### 2 4323-8 ####[facility] LABCLIA [id number] [place] [address] [place] ALT [Catalytic activity/Vol] 12 U/L Normal 7-38 [facility] Comment on above: Order Comment: Speci men Type: BLOOD SPECIMENOrdering Facility: [facility] Address: [address] [place] [address] Performed By: #### 2 4323-8 ####[facility] LABCLIA [id number] [place] [address] [place] Anion gap [Moles/Vol] 13 mmol/L Normal 8-[address] [facility] Comment on above: Order Comment: Speci men Type: BLOOD SPECIMENOrdering Facility: [facility] Address: [address] [place] [address] Performed By: #### 2 4323-8 ####[facility] LABCLIA [id number] [place] [address] [place] AST [Catalytic activity/Vol] 17 U/L Normal 13-35 [facility] Comment on above: Order Comment: Speci men Type: BLOOD SPECIMENOrdering Facility: [facility] Address: [address] [place] [address] Performed By: #### 2 4323-8 ####[facility] LABCLIA [id number] [place] [address] [place] Bilirubin [Mass/Vol] 0.5 mg/dL Normal 0.2-1.3 [facility] Comment on above: Order Comment: Speci men Type: BLOOD SPECIMENOrdering Facility: [facility] Address: [address] [place] [address] Performed By: #### 2 4323-8 ####[facility] LABCLIA [id number] [place] [address] [place] Calcium [Mass/Vol] 9.0 mg/dL Normal 8.5-10.2 [facility] Comment on above: Order Comment: Speci men Type: BLOOD SPECIMENOrdering Facility: [facility] Address: [address] [place] [address] Performed By: #### 2 4323-8 ####[facility] LABCLIA [id number] [place] [address] [place] Chloride [Moles/Vol] 97 mmol/L Low 98-107 [facility] Comment on above: Order Comment: Speci men Type: BLOOD SPECIMENOrdering Facility: [facility] Address: [address] [place] [address] Performed By: #### 2 4323-8 ####[facility] LABCLIA [id number] [place] [address] [place] CO2 [Moles/Vol] 27 mmol/L Normal 22-30 [facility] Comment on above: Order Comment: Speci men Type: BLOOD SPECIMENOrdering Facility: [facility] Address: [address] [place] [address] Performed By: #### 2 4323-8 ####[facility] LABCLIA [id number] [place] [address] [place] Creatinine [Mass/Vol] 1.29 mg/dL High 0.58-0.[address] [facility] Comment on above: Order Comment: Speci men Type: BLOOD SPECIMENOrdering Facility: [facility] Address: [address] [place], [place] [address] Performed By: #### 2 4323-8 ####[facility] LABCLIA [id number] [place] [address] [place] Creatinine and Glomerular filtration rate.predicted panel (S/P/Bld) 47 mL/min/1.73m??? Low >=60 [facility] Comment on above: Order Comment: Ernie billy Type: BLOOD SPECIMENOrdering Facility: [facility] Address: [address] [place] [address] Result Comment: Malorie mated Glomerular Filtration Rate (eGFR) is calculated using the 2020 CKD-EPI creatinine equation. This equation utilizes serum creatinine, sex, and age as parameters. The creatinine assay has traceable calibration to isotope dilution-mass spectrometry. Refer to KDIGO guidelines for clinical interpretation. In patients with unstable renal function, e.g. those with acute kidney injury, the eGFR may not accurately reflect actual GFR. Performed By: #### 2 4323-8 ####[facility] LABCLIA [id number] [place] [address] [place] Glucose [Mass/Vol] 200 mg/dL High 74-99 [facility] Comment on above: Order Comment: Ernie billy Type: BLOOD SPECIMENOrdering Facility: [facility] Address: [address] [place] [address] Result Comment: The [place] [employer] (ADA) provides guidance for cutoff values for fasting glucose and random glucose. The ADA defines fasting as no caloric intake for at least 8 hours. Fasting plasma glucose results between 100 to 125 mg/dL indicate increased risk for diabetes (prediabetes).Fasting plasma glucose results greater than or equal to 126 mg/dL meet the criteria for diagnosis of diabetes. In the absence of unequivocal hyperglycemia, results should be confirmed by repeat testing. In a patient with classic symptoms of hyperglycemia or hyperglycemic crisis, random plasma glucose results greater than or equal to 200 mg/dL meet the criteria for diagnosis of diabetes.Reference: Standards of Medical Care in Diabetes 2016, [place] [employer]. Diabetes Care. 2016.39(Suppl 1). Performed By: #### 2 4323-8 ####[facility] LABCLIA [id number] [place] [address] [place] Potassium [Moles/Vol] 3.8 mmol/L Normal 3.7-5.[address] [facility] Comment on above: Order Comment: Speci men Type: BLOOD SPECIMENOrdering Facility: [facility] Address: [address] [place] [id number] Performed By: #### 2 4323-8 ####[facility] LABCLIA [id number] [address] [address] [place] Protein [Mass/Vol] 6.3 g/dL Normal 6.3-8.0 [facility] Comment on above: Order Comment: Speci men Type: BLOOD SPECIMENOrdering Facility: [facility] Address: [address] [place] [address] Performed By: #### 2 4323-8 ####[facility] LABCLIA [id number] [place] [address] [place] Sodium [Moles/Vol] 137 mmol/L Normal 136-144 [facility] Comment on above: Order Comment: Speci men Type: BLOOD SPECIMENOrdering Facility: [facility] Address: [address] [place] [address] Performed By: #### 2 4323-8 ####[facility] LABCLIA [id number] [place] [address] [place] Urea nitrogen [Mass/Vol] 12 mg/dL Normal 7-21 [facility] Comment on above: Order Comment: Speci men Type: BLOOD SPECIMENOrdering Facility: [facility] Address: [address] [place] [address] Performed By: #### 2 4323-8 ####[facility] LABCLIA [id number] [place] [id number] [place] CBC panel Auto (Bld)on 11-12 Erythrocyte distribution width (RBC) [Ratio] 15.5 % High 11.5-15.0 [facility] Comment on above: Order Comment: Speci men Type: BLOOD SPECIMENOrdering Facility: [facility] Address: [address] [place] [address] Performed By: #### 5 8410-2 ####[facility] LABIA [id number] [place] [address] [place] Hematocrit (Bld) [Volume fraction] 32.5 % Low 36.0-46.0 [facility] Comment on above: Order Comment: Speci men Type: BLOOD SPECIMENOrdering Facility: [facility] Address: [address] [place] [address] Performed By: #### 5 8410-2 ####[facility] LABIA [id number] [place] [address] [place] Hemoglobin (Bld) [Mass/Vol] 10.0 g/dL Low 11.5-15.5 [facility] Comment on above: Order Comment: Speci men Type: BLOOD SPECIMENOrdering Facility: [facility] Address: [address] [place] [address] Performed By: #### 5 8410-2 ####[facility] LABIA [id number] [place] [address] [place] MCH (RBC) [Entitic mass] 31.4 pg Normal 26.0-34.0 [facility] Comment on above: Order Comment: Speci men Type: BLOOD SPECIMENOrdering Facility: [facility] Address: [address] [place] [address] Performed By: #### 5 8410-2 ####[facility] LABIA [id number] [place] [address] [place] MCHC (RBC) [Mass/Vol] 30.8 g/dL Normal 30.5-36.[address] [facility] Comment on above: Order Comment: Speci men Type: BLOOD SPECIMENOrdering Facility: [facility] Address: [address] [place] [address] Performed By: #### 5 8410-2 ####[facility] LABIA [id number] [place] [address] [place] MCV (RBC) [Entitic vol] 102.2 fL High 80.0-100.0 [facility] Comment on above: Order Comment: Speci men Type: BLOOD SPECIMENOrdering Facility: [facility] Address: [address] [place] [address] Performed By: #### 5 8410-2 ####[facility] LABCLIA [id number] [place] [address] [place] Nucleated RBC (Bld) [#/Vol] 10*3/uL Normal <0.01 [facility] Comment on above: Order Comment: Speci men Type: BLOOD SPECIMENOrdering Facility: [facility] Address: [address] [place] [address] Performed By: #### 5 8410-2 ####[facility] LABCLIA [id number] [place] [address] [place] Platelet mean volume (Bld) [Entitic vol] 8.4 fL Low 9.0-12.7 [facility] Comment on above: Order Comment: Speci men Type: BLOOD SPECIMENOrdering Facility: [facility] Address: [address] [place] [address] Performed By: #### 5 8410-2 ####[facility] LABIA [id number] [place] [address] [place] Platelets (Bld) [#/Vol] 424 10*3/uL High 150-400 [facility] Comment on above: Order Comment: Speci men Type: BLOOD SPECIMENOrdering Facility: [facility] Address: [address] [place] [address] Performed By: #### 5 8410-2 ####[facility] LABCLIA [id number] [place] [address] [place] RBC (Bld) [#/Vol] 3.18 10*6/uL Low 3.90-5.20 [facility] Comment on above: Order Comment: Speci men Type: BLOOD SPECIMENOrdering Facility: [facility] Address: [address] [place] [address] Performed By: #### 5 8410-2 ####[facility] LABCLIA [id number] [place] [address] [place] WBC (Bld) [#/Vol] 7.34 10*3/uL Normal 3.70-11.00 [facility] Comment on above: Order Comment: Speci men Type: BLOOD SPECIMENOrdering Facility: [facility] Address: [address] [place] [address] Performed By: #### 5 8410-2 ####[facility] LABCLIA [id number] [place] [address] [place] CONSULT PROGon 11-13-2023 CONSULT PROG Normal [facility] Comprehensive metabolic 2000 panelon 11-13-2023 Albumin [Mass/Vol] 3.4 g/dL Low 3.9-4.9 [facility] Comment on above: Order Comment: Speci men Type: BLOOD SPECIMENOrdering Facility: [facility] Address: [address] [place] [address] Performed By: #### 2 4323-8 ####[facility] LABCLIA [id number] [place] [address] [place] ALP [Catalytic activity/Vol] 116 U/L Normal 34-123 [facility] Comment on above: Order Comment: Speci men Type: BLOOD SPECIMENOrdering Facility: [facility] Address: [address] [place] [address] Performed By: #### 2 4323-8 ####[facility] LABIA [id number] [place] [address] [place] ALT [Catalytic activity/Vol] 13 U/L Normal 7-38 [facility] Comment on above: Order Comment: Speci men Type: BLOOD SPECIMENOrdering Facility: [facility] Address: [address] [place] [address] Performed By: #### 2 4323-8 ####[facility] LABCLIA [id number] [place] [address] [place] Anion gap [Moles/Vol] 13 mmol/L Normal 8-[address] [facility] Comment on above: Order Comment: Speci men Type: BLOOD SPECIMENOrdering Facility: [facility] Address: [address] [place] [address] Performed By: #### 2 4323-8 ####[facility] LABCLIA [id number] [place] [address] [place] AST [Catalytic activity/Vol] 17 U/L Normal 13-35 [facility] Comment on above: Order Comment: Speci men Type: BLOOD SPECIMENOrdering Facility: [facility] Address: [address] [place] [address] Performed By: #### 2 4323-8 ####[facility] LABCLIA [id number] [place] [address] [place] Bilirubin [Mass/Vol] 0.7 mg/dL Normal 0.2-1.3 [facility] Comment on above: Order Comment: Speci men Type: BLOOD SPECIMENOrdering Facility: [facility] Address: [address] [place] [address] Performed By: #### 2 4323-8 ####[facility] LABCLIA [id number] [place] [address] [place] Calcium [Mass/Vol] 9.1 mg/dL Normal 8.5-10.2 [facility] Comment on above: Order Comment: Speci men Type: BLOOD SPECIMENOrdering Facility: [facility] Address: [address] [place] [address] Performed By: #### 2 4323-8 ####[facility] LABCLIA [id number] [place] [address] [place] Chloride [Moles/Vol] 97 mmol/L Low 98-107 [facility] Comment on above: Order Comment: Speci men Type: BLOOD SPECIMENOrdering Facility: [facility] Address: [address] [place] [address] Performed By: #### 2 4323-8 ####[facility] LABCLIA [id number] [place] [address] [place] CO2 [Moles/Vol] 26 mmol/L Normal 22-30 [facility] Comment on above: Order Comment: Speci men Type: BLOOD SPECIMENOrdering Facility: [facility] Address: [address] [place] [address] Performed By: #### 2 4323-8 ####[facility] LABCLIA [id number] [address] [place] Creatinine [Mass/Vol] 1.32 mg/dL High 0.58-0.[address] [facility] Comment on above: Order Comment: Speci men Type: BLOOD SPECIMENOrdering Facility: [facility] Address: [address] [place] [address] Performed By: #### 2 4323-8 ####[facility] LABCLIA [id number] [address] [facility] Creatinine and Glomerular filtration rate.predicted panel (S/P/Bld) 45 mL/min/1.73m??? Low >=60 [facility] Comment on above: Order Comment: Speci men Type: BLOOD SPECIMENOrdering Facility: [facility] Address: [address] [place] [address] Result Comment: Malorie mated Glomerular Filtration Rate (eGFR) is calculated using the 2020 CKD-EPI creatinine equation. This equation utilizes serum creatinine, sex, and age as parameters. The creatinine assay has traceable calibration to isotope dilution-mass spectrometry. Refer to KDIGO guidelines for clinical interpretation. In patients with unstable renal function, e.g. those with acute kidney injury, the eGFR may not accurately reflect actual GFR. Performed By: #### 2 4323-8 ####[facility] LABCLIA [id number] [place] [address] [place] Glucose [Mass/Vol] 197 mg/dL High 74-99 [facility] Comment on above: Order Comment: Speci men Type: BLOOD SPECIMENOrdering Facility: [facility] Address: [address] [place] [address] Result Comment: The [place] Diabetes [employer] (ADA) provides guidance for cutoff values for fasting glucose and random glucose. The ADA defines fasting as no caloric intake for at least 8 hours. Fasting plasma glucose results between 100 to 125 mg/dL indicate increased risk for diabetes (prediabetes).Fasting plasma glucose results greater than or equal to 126 mg/dL meet the criteria for diagnosis of diabetes. In the absence of unequivocal hyperglycemia, results should be confirmed by repeat testing. In a patient with classic symptoms of hyperglycemia or hyperglycemic crisis, random plasma glucose results greater than or equal to 200 mg/dL meet the criteria for diagnosis of diabetes.Reference: Standards of Medical Care in Diabetes 2016, [place] [employer]. Diabetes Care. 2016.39(Suppl 1). Performed By: #### 2 4323-8 ####[facility] LABCLIA [id number] [place] [address] [place] Potassium [Moles/Vol] 4.1 mmol/L Normal 3.7-5.[address] [facility] Comment on above: Order Comment: Speci men Type: BLOOD SPECIMENOrdering Facility: [facility] Address: [address] [place] [address] Performed By: #### 2 4323-8 ####[facility] LABCLIA [id number] [place] [id number] [place] Protein [Mass/Vol] 6.7 g/dL Normal 6.3-8.0 [facility] Comment on above: Order Comment: Speci men Type: BLOOD SPECIMENOrdering Facility: [facility] Address: [address] [place] [address] Performed By: #### 2 4323-8 ####[facility] LABCLIA [id number] [place] [address] [place] Sodium [Moles/Vol] 136 mmol/L Normal 136-144 [facility] Comment on above: Order Comment: Speci men Type: BLOOD SPECIMENOrdering Facility: [facility] Address: [address] [place] [address] Performed By: #### 2 4323-8 ####[facility] LABCLIA [id number] [place] [address] [place] Urea nitrogen [Mass/Vol] 12 mg/dL Normal 7-21 [facility] Comment on above: Order Comment: Speci men Type: BLOOD SPECIMENOrdering Facility: [facility] Address: [address] [place] [address] Performed By: #### 2 4323-8 ####[facility] LABCLIA [id number] [place] [address] [place] CBC panel Auto (Bld)on 11-11 Erythrocyte distribution width (RBC) [Ratio] 15.2 % High 11.5-15.0 [facility] Comment on above: Order Comment: Speci men Type: BLOOD SPECIMENOrdering Facility: [facility] Address: [address] [place] [address] Performed By: #### 5 8410-2 ####[facility] LABCLIA [id number] [place] [address] [place] Hematocrit (Bld) [Volume fraction] 33.0 % Low 36.0-46.0 [facility] Comment on above: Order Comment: Speci men Type: BLOOD SPECIMENOrdering Facility: [facility] Address: [address] [place] [address] Performed By: #### 5 8410-2 ####[facility] LABCLIA [id number] [place] [address] [place] Hemoglobin (Bld) [Mass/Vol] 10.2 g/dL Low 11.5-15.5 [facility] Comment on above: Order Comment: Speci men Type: BLOOD SPECIMENOrdering Facility: [facility] Address: [address] [place] [address] Performed By: #### 5 8410-2 ####[facility] LABIA [id number] [place] [address] [place] MCH (RBC) [Entitic mass] 32.3 pg Normal 26.0-34.0 [facility] Comment on above: Order Comment: Speci men Type: BLOOD SPECIMENOrdering Facility: [facility] Address: [address] [place] [address] Performed By: #### 5 8410-2 ####[facility] [id number] [place] [address] [place] MCHC (RBC) [Mass/Vol] 30.9 g/dL Normal 30.5-36.[address] [facility] Comment on above: Order Comment: Speci men Type: BLOOD SPECIMENOrdering Facility: [facility] Address: [address] [place] [address] Performed By: #### 5 8410-2 ####[facility] [id number] [place] [address] [place] MCV (RBC) [Entitic vol] 104.4 fL High 80.0-100.0 [facility] Comment on above: Order Comment: Speci men Type: BLOOD SPECIMENOrdering Facility: [facility] Address: [address] [place] [address] Performed By: #### 5 8410-2 ####[facility] [id number] [place] [address] [place] Nucleated RBC (Bld) [#/Vol] 10*3/uL Normal <0.01 [facility] Comment on above: Order Comment: Speci men Type: BLOOD SPECIMENOrdering Facility: [facility] Address: [address] [place] [address] Performed By: #### 5 8410-2 ####[facility] LABCLIA [id number] [place] [address] [place] Platelet mean volume (Bld) [Entitic vol] 9.0 fL Normal 9.0-12.7 [facility] Comment on above: Order Comment: Speci men Type: BLOOD SPECIMENOrdering Facility: [facility] Address: [address] [place] [address] Performed By: #### 5 8410-2 ####[facility] LABIA [id number] [place] [address] [place] Platelets (Bld) [#/Vol] 390 10*3/uL Normal 150-400 [facility] Comment on above: Order Comment: Speci men Type: BLOOD SPECIMENOrdering Facility: [facility] Address: [address] [place] [address] Performed By: #### 5 8410-2 ####[facility] LABIA [id number] [place] [address] [place] RBC (Bld) [#/Vol] 3.16 10*6/uL Low 3.90-5.20 [facility] Comment on above: Order Comment: Speci men Type: BLOOD SPECIMENOrdering Facility: [facility] Address: [address] [place] [address] Performed By: #### 5 8410-2 ####[facility] LABIA [id number] [place] [address] [place] WBC (Bld) [#/Vol] 8.38 10*3/uL Normal 3.70-11.00 [facility] Comment on above: Order Comment: Speci men Type: BLOOD SPECIMENOrdering Facility: [facility] Address: [address] [place] [address] Performed By: #### 5 8410-2 ####[facility] LABIA [id number] [place] [address] [place] CONSULT PROGon 11-12-2023 CONSULT PROG Normal [facility] Comprehensive metabolic 2000 panelon 11-12-2023 Albumin [Mass/Vol] 3.3 g/dL Low 3.9-4.9 [facility] Comment on above: Order Comment: Speci men Type: BLOOD SPECIMENOrdering Facility: [facility] Address: [address] [place] [address] Performed By: #### 2 4323-8 ####[facility] LABCLIA [id number] [place] [address] [place] ALP [Catalytic activity/Vol] 118 U/L Normal 34-123 [facility] Comment on above: Order Comment: Speci men Type: BLOOD SPECIMENOrdering Facility: [facility] Address: [address] [place] [address] Performed By: #### 2 4323-8 ####[facility] LABCLIA [id number] [place] [address] [place] ALT [Catalytic activity/Vol] 15 U/L Normal 7-38 [facility] Comment on above: Order Comment: Speci men Type: BLOOD SPECIMENOrdering Facility: [facility] Address: [address] [place] [address] Performed By: #### 2 4323-8 ####[facility] LABCLIA [id number] [place] [address] [place] Anion gap [Moles/Vol] 12 mmol/L Normal 8-[address] [facility] Comment on above: Order Comment: Speci men Type: BLOOD SPECIMENOrdering Facility: [facility] Address: [address] [place] [address] Performed By: #### 2 4323-8 ####[facility] LABCLIA [id number] [place] [id number] [place] AST [Catalytic activity/Vol] 25 U/L Normal 13-35 [facility] Comment on above: Order Comment: Speci men Type: BLOOD SPECIMENOrdering Facility: [facility] Address: [address] [place] [address] Result Comment: Resu lts may be falsely increased due to interference from hemolysis. Suggest reorder as clinically indicated. Performed By: #### 2 4323-8 ####[facility] LABCLIA [id number] [place] [address] [place] Bilirubin [Mass/Vol] 0.7 mg/dL Normal 0.2-1.3 [facility] Comment on above: Order Comment: Speci men Type: BLOOD SPECIMENOrdering Facility: [facility] Address: [address] [place] [address] Performed By: #### 2 4323-8 ####[facility] LABCLIA [id number] [place] [address] [place] Calcium [Mass/Vol] 9.1 mg/dL Normal 8.5-10.2 [facility] Comment on above: Order Comment: Speci men Type: BLOOD SPECIMENOrdering Facility: [facility] Address: [address] [place] [address] Performed By: #### 2 4323-8 ####[facility] LABCLIA [id number] [place] [address] [place] Chloride [Moles/Vol] 97 mmol/L Low 98-107 [facility] Comment on above: Order Comment: Speci men Type: BLOOD SPECIMENOrdering Facility: [facility] Address: [address] [place] [address] Performed By: #### 2 4323-8 ####[facility] LABCLIA [id number] [place] [address] [place] CO2 [Moles/Vol] 27 mmol/L Normal 22-30 [facility] Comment on above: Order Comment: Speci men Type: BLOOD SPECIMENOrdering Facility: [facility] Address: [address] [place] [address] Performed By: #### 2 4323-8 ####[facility] LABCLIA [id number] [place] [address] [place] Creatinine [Mass/Vol] 1.13 mg/dL High 0.58-0.[address] [facility] Comment on above: Order Comment: Speci men Type: BLOOD SPECIMENOrdering Facility: [facility] Address: [address] [place] [address] Performed By: #### 2 4323-8 ####[facility] LABCLIA [id number] [place] [address] [place] Creatinine and Glomerular filtration rate.predicted panel (S/P/Bld) 55 mL/min/1.73m??? Low >=60 [facility] Comment on above: Order Comment: Speci men Type: BLOOD SPECIMENOrdering Facility: [facility] Address: [address] [place] [address] Result Comment: Malorie mated Glomerular Filtration Rate (eGFR) is calculated using the 2020 CKD-EPI creatinine equation. This equation utilizes serum creatinine, sex, and age as parameters. The creatinine assay has traceable calibration to isotope dilution-mass spectrometry. Refer to KDIGO guidelines for clinical interpretation. In patients with unstable renal function, e.g. those with acute kidney injury, the eGFR may not accurately reflect actual GFR. Performed By: #### 2 4323-8 ####[facility] LABIA [id number] [place] [address] [place] Glucose [Mass/Vol] 191 mg/dL High 74-99 [facility] Comment on above: Order Comment: Speci men Type: BLOOD SPECIMENOrdering Facility: [facility] Address: [address] [place] [address] Result Comment: The [place] [employer] (ADA) provides guidance for cutoff values for fasting glucose and random glucose. The ADA defines fasting as no caloric intake for at least 8 hours. Fasting plasma glucose results between 100 to 125 mg/dL indicate increased risk for diabetes (prediabetes).Fasting plasma glucose results greater than or equal to 126 mg/dL meet the criteria for diagnosis of diabetes. In the absence of unequivocal hyperglycemia, results should be confirmed by repeat testing. In a patient with classic symptoms of hyperglycemia or hyperglycemic crisis, random plasma glucose results greater than or equal to 200 mg/dL meet the criteria for diagnosis of diabetes.Reference: Standards of Medical Care in Diabetes 2016, [place] [employer]. Diabetes Care. 2016.39(Suppl 1). Performed By: #### 2 4323-8 ####[facility] LABCLIA [id number] [place] [address] [place] Potassium [Moles/Vol] 4.4 mmol/L Normal 3.7-5.[address] [facility] Comment on above: Order Comment: Speci men Type: BLOOD SPECIMENOrdering Facility: [facility] Address: [address] [place] [address] Performed By: #### 2 4323-8 ####[facility] LABCLIA [id number] [place] [address] [place] Protein [Mass/Vol] 6.7 g/dL Normal 6.3-8.0 [facility] Comment on above: Order Comment: Speci men Type: BLOOD SPECIMENOrdering Facility: [facility] Address: [address] [place] [address] Performed By: #### 2 4323-8 ####[facility] LABCLIA [id number] [place] [address] [place] Sodium [Moles/Vol] 136 mmol/L Normal 136-144 [facility] Comment on above: Order Comment: Speci men Type: BLOOD SPECIMENOrdering Facility: [facility] Address: [address] [place] [address] Performed By: #### 2 4323-8 ####[facility] LABCLIA [id number] [place] [address] [place] Urea nitrogen [Mass/Vol] 10 mg/dL Normal 7-21 [facility] Comment on above: Order Comment: Speci men Type: BLOOD SPECIMENOrdering Facility: [facility] Address: [address] [place] [address] Performed By: #### 2 4323-8 ####[facility] LABCLIA [id number] [place] [address] [place] ECG COMPLETEon 11-12-2023 ECG COMPLETE Normal [facility] XR CHEST 1V FRONTALon 2023 XR CHEST 1V FRONTAL Normal [facility] CASE MANAGEMon 11-11-2023 CASE MANAGEM Normal [facility] CASE MANAGEM Normal [facility] CBC panel Auto (Bld)on 11-10 Erythrocyte distribution width (RBC) [Ratio] 15.1 % High 11.5-15.0 [facility] Comment on above: Order Comment: Speci men Type: BLOOD SPECIMENOrdering Facility: [facility] Address: [address] [place] [address] Performed By: #### 5 8410-2 ####[facility] LABCLIA [id number] [place] [address] [place] Hematocrit (Bld) [Volume fraction] 30.4 % Low 36.0-46.0 [facility] Comment on above: Order Comment: Speci men Type: BLOOD SPECIMENOrdering Facility: [facility] Address: [address] [place] [address] Performed By: #### 5 8410-2 ####[facility] LABCLIA [id number] [place] [address] [place] Hemoglobin (Bld) [Mass/Vol] 9.3 g/dL Low 11.5-15.5 [facility] Comment on above: Order Comment: Speci men Type: BLOOD SPECIMENOrdering Facility: [facility] Address: [address] [place] [address] Performed By: #### 5 8410-2 ####[facility] LABCLIA [id number] [place] [address] [place] MCH (RBC) [Entitic mass] 32.1 pg Normal 26.0-34.0 [facility] Comment on above: Order Comment: Speci men Type: BLOOD SPECIMENOrdering Facility: [facility] Address: [address] [place] [address] Performed By: #### 5 8410-2 ####[facility] LABCLIA [id number] [place] [address] [place] MCHC (RBC) [Mass/Vol] 30.6 g/dL Normal 30.5-36.[address] [facility] Comment on above: Order Comment: Speci men Type: BLOOD SPECIMENOrdering Facility: [facility] Address: [address] [place] [address] Performed By: #### 5 8410-2 ####[facility] LABIA [id number] [place] [address] [place] MCV (RBC) [Entitic vol] 104.8 fL High 80.0-100.0 [facility] Comment on above: Order Comment: Speci men Type: BLOOD SPECIMENOrdering Facility: [facility] Address: [address] [place] [address] Performed By: #### 5 8410-2 ####[facility] LABIA [id number] [place] [address] [place] Nucleated RBC (Bld) [#/Vol] 10*3/uL Normal <0.01 [facility] Comment on above: Order Comment: Speci men Type: BLOOD SPECIMENOrdering Facility: [facility] Address: [address] [place] [address] Performed By: #### 5 8410-2 ####[facility] LABCLIA [id number] [place] [address] [place] Platelet mean volume (Bld) [Entitic vol] 8.9 fL Low 9.0-12.7 [facility] Comment on above: Order Comment: Speci men Type: BLOOD SPECIMENOrdering Facility: [facility] Address: [address] [place] [address] Performed By: #### 5 8410-2 ####[facility] LABCLIA [id number] [place] [address] [place] Platelets (Bld) [#/Vol] 445 10*3/uL High 150-400 [facility] Comment on above: Order Comment: Speci men Type: BLOOD SPECIMENOrdering Facility: [facility] Address: [address] [place] [address] Performed By: #### 5 8410-2 ####[facility] LABIA [id number] [place] [address] [place] RBC (Bld) [#/Vol] 2.90 10*6/uL Low 3.90-5.20 [facility] Comment on above: Order Comment: Speci men Type: BLOOD SPECIMENOrdering Facility: [facility] Address: [address] [place] [address] Performed By: #### 5 8410-2 ####[facility] LABIA [id number] [place] [address] [place] WBC (Bld) [#/Vol] 8.65 10*3/uL Normal 3.70-11.00 [facility] Comment on above: Order Comment: Speci men Type: BLOOD SPECIMENOrdering Facility: [facility] Address: [address] [place] [address] Performed By: #### 5 8410-2 ####[facility] LABIA [id number] [place] [address] [place] CONSULT PROGon 11-11-2023 CONSULT PROG Normal [facility] Comprehensive metabolic 2000 panelon 11-11-2023 Albumin [Mass/Vol] 3.2 g/dL Low 3.9-4.9 [facility] Comment on above: Order Comment: Speci men Type: BLOOD SPECIMENOrdering Facility: [facility] Address: [address] [place] [address] Performed By: #### 2 4323-8 ####[facility] LABCLIA [id number] [place] [address] [place] ALP [Catalytic activity/Vol] 104 U/L Normal 34-123 [facility] Comment on above: Order Comment: Speci men Type: BLOOD SPECIMENOrdering Facility: [facility] Address: [address] [place] [address] Performed By: #### 2 4323-8 ####[facility] LABCLIA [id number] [place] [address] [place] ALT [Catalytic activity/Vol] 14 U/L Normal 7-38 [facility] Comment on above: Order Comment: Speci men Type: BLOOD SPECIMENOrdering Facility: [facility] Address: [address] [place] [address] Performed By: #### 2 4323-8 ####[facility] LABCLIA [id number] [place] [address] [place] Anion gap [Moles/Vol] 11 mmol/L Normal 8-[address] [facility] Comment on above: Order Comment: Speci men Type: BLOOD SPECIMENOrdering Facility: [facility] Address: [address] [place] [address] Performed By: #### 2 4323-8 ####[facility] LABCLIA [id number] [place] [address] [place] AST [Catalytic activity/Vol] 18 U/L Normal 13-35 [facility] Comment on above: Order Comment: Speci men Type: BLOOD SPECIMENOrdering Facility: [facility] Address: [address] [place] [address] Performed By: #### 2 4323-8 ####[facility] LABCLIA [id number] [place] [address] [place] Bilirubin [Mass/Vol] 0.7 mg/dL Normal 0.2-1.3 [facility] Comment on above: Order Comment: Speci men Type: BLOOD SPECIMENOrdering Facility: [facility] Address: [address] [place], [place] [address] Performed By: #### 2 4323-8 ####[facility] LABCLIA [id number] [facility] [place] [address] [place] Calcium [Mass/Vol] 9.0 mg/dL Normal 8.5-10.2 [facility] Comment on above: Order Comment: Speci men Type: BLOOD SPECIMENOrdering Facility: [facility] Address: [address] [place] [address] Performed By: #### 2 4323-8 ####[facility] LABCLIA [id number] [place] [address] [place] Chloride [Moles/Vol] 100 mmol/L Normal 98-107 [facility] Comment on above: Order Comment: Speci men Type: BLOOD SPECIMENOrdering Facility: [facility] Address: [address] [place], [place] [address] Performed By: #### 2 4323-8 ####[facility] LABCLIA [id number] [place] [address] [place] CO2 [Moles/Vol] 27 mmol/L Normal 22-30 [facility] Comment on above: Order Comment: Speci men Type: BLOOD SPECIMENOrdering Facility: [facility] Address: [address] [place] [address] Performed By: #### 2 4323-8 ####[facility] LABCLIA [id number] [place] [id number] [place] Creatinine [Mass/Vol] 1.17 mg/dL High 0.58-0.[address] [facility] Comment on above: Order Comment: Speci men Type: BLOOD SPECIMENOrdering Facility: [facility] Address: [address] [place] [address] Performed By: #### 2 4323-8 ####[facility] LABCLIA [id number] [place] [address] [place] Creatinine and Glomerular filtration rate.predicted panel (S/P/Bld) 53 mL/min/1.73m??? Low >=60 [facility] Comment on above: Order Comment: Ernie billy Type: BLOOD SPECIMENOrdering Facility: [facility] Address: [address] [place] [address] Result Comment: Malorie mated Glomerular Filtration Rate (eGFR) is calculated using the 2020 CKD-EPI creatinine equation. This equation utilizes serum creatinine, sex, and age as parameters. The creatinine assay has traceable calibration to isotope dilution-mass spectrometry. Refer to KDIGO guidelines for clinical interpretation. In patients with unstable renal function, e.g. those with acute kidney injury, the eGFR may not accurately reflect actual GFR. Performed By: #### 2 4323-8 ####[facility] LABCLIA [id number] [place] [address] [place] Glucose [Mass/Vol] 193 mg/dL High 74-99 [facility] Comment on above: Order Comment: Ernie billy Type: BLOOD SPECIMENOrdering Facility: [facility] Address: [address] [place] [address] Result Comment: The [place] Diabetes Association (ADA) provides guidance for cutoff values for fasting glucose and random glucose. The ADA defines fasting as no caloric intake for at least 8 hours. Fasting plasma glucose results between 100 to 125 mg/dL indicate increased risk for diabetes (prediabetes).Fasting plasma glucose results greater than or equal to 126 mg/dL meet the criteria for diagnosis of diabetes. In the absence of unequivocal hyperglycemia, results should be confirmed by repeat testing. In a patient with classic symptoms of hyperglycemia or hyperglycemic crisis, random plasma glucose results greater than or equal to 200 mg/dL meet the criteria for diagnosis of diabetes.Reference: Standards of Medical Care in Diabetes 2016, [place] [employer]. Diabetes Care. 2016.39(Suppl 1). Performed By: #### 2 4323-8 ####[facility] LABCLIA [id number] [place] [address] [place] Potassium [Moles/Vol] 4.4 mmol/L Normal 3.7-5.[address] [facility] Comment on above: Order Comment: Speci men Type: BLOOD SPECIMENOrdering Facility: [facility] Address: [address] [place] [address] Performed By: #### 2 4323-8 ####[facility] LABCLIA [id number] [place] [address] [place] Protein [Mass/Vol] 6.3 g/dL Normal 6.3-8.0 [facility] Comment on above: Order Comment: Speci men Type: BLOOD SPECIMENOrdering Facility: [facility] Address: [address] [place] [address] Performed By: #### 2 4323-8 ####[facility] LABIA [id number] [place] [address] [place] Sodium [Moles/Vol] 138 mmol/L Normal 136-144 [facility] Comment on above: Order Comment: Speci men Type: BLOOD SPECIMENOrdering Facility: [facility] Address: [address] [place] [address] Performed By: #### 2 4323-8 ####[facility] LABIA [id number] [place] [address] [place] Urea nitrogen [Mass/Vol] 10 mg/dL Normal 7-21 [facility] Comment on above: Order Comment: Speci men Type: BLOOD SPECIMENOrdering Facility: [facility] Address: [address] [place], [place] [address] Performed By: #### 2 4323-8 ####[facility] LABIA [id number] [place] [id number] [place] ECG COMPLETEon 11-11-2023 ECG COMPLETE Normal [facility] THERAPY NTon 11-11-2023 THERAPY NT Normal [facility] CBC panel Auto (Bld)on 11-09 Erythrocyte distribution width (RBC) [Ratio] 15.0 % Normal 11.5-15.0 [facility] Comment on above: Order Comment: Speci men Type: BLOOD SPECIMENOrdering Facility: [facility] Address: [address] [place] [address] Performed By: #### 5 8410-2 ####[facility] LABCLIA [id number] [place] [address] [place] Hematocrit (Bld) [Volume fraction] 32.7 % Low 36.0-46.0 [facility] Comment on above: Order Comment: Speci men Type: BLOOD SPECIMENOrdering Facility: [facility] Address: [address] [place] [address] Performed By: #### 5 8410-2 ####[facility] LABCLIA [id number] [place] [address] [place] Hemoglobin (Bld) [Mass/Vol] 9.9 g/dL Low 11.5-15.5 [facility] Comment on above: Order Comment: Speci men Type: BLOOD SPECIMENOrdering Facility: [facility] Address: [address] [place] [address] Performed By: #### 5 8410-2 ####[facility] LABIA [id number] [place] [address] [place] MCH (RBC) [Entitic mass] 31.9 pg Normal 26.0-34.0 [facility] Comment on above: Order Comment: Speci men Type: BLOOD SPECIMENOrdering Facility: [facility] Address: [address] [place] [address] Performed By: #### 5 8410-2 ####[facility] LABCLIA [id number] [place] [address] [place] MCHC (RBC) [Mass/Vol] 30.3 g/dL Low 30.5-36.[address] [facility] Comment on above: Order Comment: Speci men Type: BLOOD SPECIMENOrdering Facility: [facility] Address: [address] [place] [address] Performed By: #### 5 8410-2 ####[facility] LABIA [id number] [place] [address] [place] MCV (RBC) [Entitic vol] 105.5 fL High 80.0-100.0 [facility] Comment on above: Order Comment: Speci men Type: BLOOD SPECIMENOrdering Facility: [facility] Address: [address] [place] [address] Performed By: #### 5 8410-2 ####[facility] [id number] [place] [address] [place] Nucleated RBC (Bld) [#/Vol] 0.02 10*3/uL High <0.01 [facility] Comment on above: Order Comment: Speci men Type: BLOOD SPECIMENOrdering Facility: [facility] Address: [address] [place] [address] Performed By: #### 5 8410-2 ####[facility] [id number] [place] [address] [place] Platelet mean volume (Bld) [Entitic vol] 8.7 fL Low 9.0-12.7 [facility] Comment on above: Order Comment: Speci men Type: BLOOD SPECIMENOrdering Facility: [facility] Address: [address] [place] [address] Performed By: #### 5 8410-2 ####[facility] LABIA [id number] [place] [address] [place] Platelets (Bld) [#/Vol] 484 10*3/uL High 150-400 [facility] Comment on above: Order Comment: Speci men Type: BLOOD SPECIMENOrdering Facility: [facility] Address: [address] [place] [address] Performed By: #### 5 8410-2 ####[facility] LABIA [id number] [address] [address] [place] RBC (Bld) [#/Vol] 3.10 10*6/uL Low 3.90-5.20 [facility] Comment on above: Order Comment: Speci men Type: BLOOD SPECIMENOrdering Facility: [facility] Address: [address] [place] [address] Performed By: #### 5 8410-2 ####[facility] [id number] [place] [address] [place] WBC (Bld) [#/Vol] 11.01 10*3/uL High 3.70-11.00 [facility] Comment on above: Order Comment: Speci men Type: BLOOD SPECIMENOrdering Facility: [facility] Address: [address] [place] [address] Performed By: #### 5 8410-2 ####[facility] LABIA [id number] [place] [address] [place] CONSULT PROGon 11-10-2023 CONSULT PROG Normal [facility] CTA ABD/PELV W IVCONon 11-09 CTA ABD/PELV W IVCON Normal [facility] Comprehensive metabolic 2000 panelon 11-10-2023 Albumin [Mass/Vol] 3.6 g/dL Low 3.9-4.9 [facility] Comment on above: Order Comment: Speci men Type: BLOOD SPECIMENOrdering Facility: [facility] Address: [address] [place] [address] Performed By: #### 2 4323-8 ####[facility] [id number] [place] [address] [place] ALP [Catalytic activity/Vol] 105 U/L Normal 34-123 [facility] Comment on above: Order Comment: Speci men Type: BLOOD SPECIMENOrdering Facility: [facility] Address: [address] [place] [id number] Performed By: #### 2 4323-8 ####[facility] LABCLIA [id number] [place] [id number] [place] ALT [Catalytic activity/Vol] 16 U/L Normal 7-38 [facility] Comment on above: Order Comment: Speci men Type: BLOOD SPECIMENOrdering Facility: [facility] Address: [address] [place], [place] [id number] Performed By: #### 2 4323-8 ####[facility] LABCLIA [id number] [place] [address] [place] Anion gap [Moles/Vol] 12 mmol/L Normal 8-[address] [facility] Comment on above: Order Comment: Speci men Type: BLOOD SPECIMENOrdering Facility: [facility] Address: [address] [place] [address] Performed By: #### 2 4323-8 ####[facility] LABCLIA [id number] [place] [address] [place] AST [Catalytic activity/Vol] 21 U/L Normal 13-35 [facility] Comment on above: Order Comment: Speci men Type: BLOOD SPECIMENOrdering Facility: [facility] Address: [address] [place], [place] [address] Performed By: #### 2 4323-8 ####[facility] LABCLIA [id number] [place] [address] [place] Bilirubin [Mass/Vol] 0.7 mg/dL Normal 0.2-1.3 [facility] Comment on above: Order Comment: Speci men Type: BLOOD SPECIMENOrdering Facility: [facility] Address: [address] [place], [place] [address] Performed By: #### 2 4323-8 ####[facility] LABCLIA [id number] [place] [address] [place] Calcium [Mass/Vol] 9.4 mg/dL Normal 8.5-10.2 [facility] Comment on above: Order Comment: Speci men Type: BLOOD SPECIMENOrdering Facility: [facility] Address: [address] [place] [address] Performed By: #### 2 4323-8 ####[facility] LABCLIA [id number] [place] [address] [place] Chloride [Moles/Vol] 100 mmol/L Normal 98-107 [facility] Comment on above: Order Comment: Speci men Type: BLOOD SPECIMENOrdering Facility: [facility] Address: [address] [place] [address] Performed By: #### 2 4323-8 ####[facility] LABCLIA [id number] [place] [address] [place] CO2 [Moles/Vol] 27 mmol/L Normal 22-30 [facility] Comment on above: Order Comment: Speci men Type: BLOOD SPECIMENOrdering Facility: [facility] Address: [address] [place] [address] Performed By: #### 2 4323-8 ####[facility] LABCLIA [id number] [place] [address] [place] Creatinine [Mass/Vol] 1.24 mg/dL High 0.58-0.[address] [facility] Comment on above: Order Comment: Speci men Type: BLOOD SPECIMENOrdering Facility: [facility] Address: [address] [place] [address] Performed By: #### 2 4323-8 ####[facility] LABCLIA [id number] [place] [address] [place] Creatinine and Glomerular filtration rate.predicted panel (S/P/Bld) 49 mL/min/1.73m??? Low >=60 [facility] Comment on above: Order Comment: Speci men Type: BLOOD SPECIMENOrdering Facility: [facility] Address: [address] [place] [address] Result Comment: Malorie mated Glomerular Filtration Rate (eGFR) is calculated using the 2020 CKD-EPI creatinine equation. This equation utilizes serum creatinine, sex, and age as parameters. The creatinine assay has traceable calibration to isotope dilution-mass spectrometry. Refer to KDIGO guidelines for clinical interpretation. In patients with unstable renal function, e.g. those with acute kidney injury, the eGFR may not accurately reflect actual GFR. Performed By: #### 2 4323-8 ####[facility] LABCLIA [id number] [place] [address] [place] Glucose [Mass/Vol] 190 mg/dL High 74-99 [facility] Comment on above: Order Comment: Specjayda billy Type: BLOOD SPECIMENOrdering Facility: [facility] Address: [address] [place] [address] Result Comment: The [place] [employer] (ADA) provides guidance for cutoff values for fasting glucose and random glucose. The ADA defines fasting as no caloric intake for at least 8 hours. Fasting plasma glucose results between 100 to 125 mg/dL indicate increased risk for diabetes (prediabetes).Fasting plasma glucose results greater than or equal to 126 mg/dL meet the criteria for diagnosis of diabetes. In the absence of unequivocal hyperglycemia, results should be confirmed by repeat testing. In a patient with classic symptoms of hyperglycemia or hyperglycemic crisis, random plasma glucose results greater than or equal to 200 mg/dL meet the criteria for diagnosis of diabetes.Reference: Standards of Medical Care in Diabetes 2016, [place] [employer]. Diabetes Care. 2016.39(Suppl 1). Performed By: #### 2 4323-8 ####[facility] LABCLIA [id number] [place] [address] [place] Potassium [Moles/Vol] 4.4 mmol/L Normal 3.7-5.[address] [facility] Comment on above: Order Comment: Ernie billy Type: BLOOD SPECIMENOrdering Facility: [facility] Address: [address] [place] [address] Performed By: #### 2 4323-8 ####[facility] LABCLIA [id number] [place] [address] [place] Protein [Mass/Vol] 6.5 g/dL Normal 6.3-8.0 [facility] Comment on above: Order Comment: Speci men Type: BLOOD SPECIMENOrdering Facility: [facility] Address: [address] [place] [address] Performed By: #### 2 4323-8 ####[facility] LABCLIA [id number] [place] [address] [place] Sodium [Moles/Vol] 139 mmol/L Normal 136-144 [facility] Comment on above: Order Comment: Speci men Type: BLOOD SPECIMENOrdering Facility: [facility] Address: [address] [place] [address] Performed By: #### 2 4323-8 ####[facility] LABCLIA [id number] [place] [address] [place] Urea nitrogen [Mass/Vol] 10 mg/dL Normal 7-21 [facility] Comment on above: Order Comment: Speci men Type: BLOOD SPECIMENOrdering Facility: [facility] Address: [address] [place] [address] Performed By: #### 2 4323-8 ####[facility] LABIA [id number] [place] [address] [place] NUTRITIONon 11-10-2023 NUTRITION Normal [facility] THERAPY NTon 11-10-2023 THERAPY NT Normal [facility] CASE MANAGEMon 11-09-2023 CASE MANAGEM Normal [facility] CBC panel Auto (Bld)on 11-08 Erythrocyte distribution width (RBC) [Ratio] 14.8 % Normal 11.5-15.0 [facility] Comment on above: Order Comment: Speci men Type: BLOOD SPECIMENOrdering Facility: [facility] Address: [address] [place] [address] Performed By: #### 5 8410-2 ####[facility] LABCLIA [id number] [place] [address] [place] Hematocrit (Bld) [Volume fraction] 36.0 % Normal 36.0-46.0 [facility] Comment on above: Order Comment: Speci men Type: BLOOD SPECIMENOrdering Facility: [facility] Address: [address] [place] [address] Performed By: #### 5 8410-2 ####[facility] LABIA [id number] [place] [address] [place] Hemoglobin (Bld) [Mass/Vol] 10.8 g/dL Low 11.5-15.5 [facility] Comment on above: Order Comment: Speci men Type: BLOOD SPECIMENOrdering Facility: [facility] Address: [address] [place] [address] Performed By: #### 5 8410-2 ####[facility] [id number] [place] [address] [place] MCH (RBC) [Entitic mass] 31.2 pg Normal 26.0-34.0 [facility] Comment on above: Order Comment: Speci men Type: BLOOD SPECIMENOrdering Facility: [facility] Address: [address] [place] [address] Performed By: #### 5 8410-2 ####[facility] [id number] [place] [address] [place] MCHC (RBC) [Mass/Vol] 30.0 g/dL Low 30.5-36.[address] [facility] Comment on above: Order Comment: Speci men Type: BLOOD SPECIMENOrdering Facility: [facility] Address: [address] [place] [address] Performed By: #### 5 8410-2 ####[facility] [id number] [place] [address] [place] MCV (RBC) [Entitic vol] 104.0 fL High 80.0-100.0 [facility] Comment on above: Order Comment: Speci men Type: BLOOD SPECIMENOrdering Facility: [facility] Address: [address] [place] [address] Performed By: #### 5 8410-2 ####[facility] LABCLIA [id number] [place] [address] [place] Nucleated RBC (Bld) [#/Vol] 10*3/uL Normal <0.01 [facility] Comment on above: Order Comment: Speci men Type: BLOOD SPECIMENOrdering Facility: [facility] Address: [address] [place] [address] Performed By: #### 5 8410-2 ####[facility] LABIA [id number] [place] [address] [place] Platelet mean volume (Bld) [Entitic vol] 9.2 fL Normal 9.0-12.7 [facility] Comment on above: Order Comment: Speci men Type: BLOOD SPECIMENOrdering Facility: [facility] Address: [address] [place] [address] Performed By: #### 5 8410-2 ####[facility] LABIA [id number] [place] [address] [place] Platelets (Bld) [#/Vol] 474 10*3/uL High 150-400 [facility] Comment on above: Order Comment: Speci men Type: BLOOD SPECIMENOrdering Facility: [facility] Address: [address] [place] [address] Performed By: #### 5 8410-2 ####[facility] LABIA [id number] [place] [address] [place] RBC (Bld) [#/Vol] 3.46 10*6/uL Low 3.90-5.20 [facility] Comment on above: Order Comment: Speci men Type: BLOOD SPECIMENOrdering Facility: [facility] Address: [address] [place] [address] Performed By: #### 5 8410-2 ####[facility] LABCLIA [id number] [place] [address] [place] WBC (Bld) [#/Vol] 10.44 10*3/uL Normal 3.70-11.00 [facility] Comment on above: Order Comment: Speci men Type: BLOOD SPECIMENOrdering Facility: [facility] Address: [address] [place] [address] Performed By: #### 5 8410-2 ####[facility] LABCLIA [id number] [place] [address] [place] CONSULT PROGon 11-09-2023 CONSULT PROG Normal [facility] CTA CHEST (GATED) W IVCONon 11-09-2023 CTA CHEST (GATED) W IVCON Normal [facility] Comprehensive metabolic 2000 panelon 11-09-2023 Albumin [Mass/Vol] 3.6 g/dL Low 3.9-4.9 [facility] Comment on above: Order Comment: Speci men Type: BLOOD SPECIMENOrdering Facility: [facility] Address: [address] [place] [address] Performed By: #### 2 4323-8 ####[facility] LABIA [id number] [place] [address] [place] ALP [Catalytic activity/Vol] 100 U/L Normal 34-123 [facility] Comment on above: Order Comment: Speci men Type: BLOOD SPECIMENOrdering Facility: [facility] Address: [address] [place] [address] Performed By: #### 2 4323-8 ####[facility] LABIA [id number] [place] [address] [place] ALT [Catalytic activity/Vol] 16 U/L Normal 7-38 [facility] Comment on above: Order Comment: Speci men Type: BLOOD SPECIMENOrdering Facility: [facility] Address: [address] [place] [address] Performed By: #### 2 4323-8 ####[facility] LABCLIA [id number] [place] [address] [place] Anion gap [Moles/Vol] 13 mmol/L Normal 8-[address] [facility] Comment on above: Order Comment: Speci men Type: BLOOD SPECIMENOrdering Facility: [facility] Address: [address] [place] [address] Performed By: #### 2 4323-8 ####[facility] LABCLIA [id number] [place] [address] [place] AST [Catalytic activity/Vol] 19 U/L Normal 13-35 [facility] Comment on above: Order Comment: Speci men Type: BLOOD SPECIMENOrdering Facility: [facility] Address: [address] [place] [address] Performed By: #### 2 4323-8 ####[facility] LABCLIA [id number] [place] [address] [place] Bilirubin [Mass/Vol] 0.8 mg/dL Normal 0.2-1.3 [facility] Comment on above: Order Comment: Speci men Type: BLOOD SPECIMENOrdering Facility: [facility] Address: [address] [place] [address] Performed By: #### 2 4323-8 ####[facility] LABCLIA [id number] [place] [address] [place] Calcium [Mass/Vol] 9.4 mg/dL Normal 8.5-10.2 [facility] Comment on above: Order Comment: Speci men Type: BLOOD SPECIMENOrdering Facility: [facility] Address: [address] [place] [address] Performed By: #### 2 4323-8 ####[facility] LABCLIA [id number] [place] [address] [place] Chloride [Moles/Vol] 99 mmol/L Normal 98-107 [facility] Comment on above: Order Comment: Speci men Type: BLOOD SPECIMENOrdering Facility: [facility] Address: [address] [place] [address] Performed By: #### 2 4323-8 ####[facility] LABCLIA [id number] [place] [address] [place] CO2 [Moles/Vol] 29 mmol/L Normal 22-30 [facility] Comment on above: Order Comment: Speci men Type: BLOOD SPECIMENOrdering Facility: [facility] Address: [address] [place] [address] Performed By: #### 2 4323-8 ####[facility] LABCLIA [id number] [place] [address] [place] Creatinine [Mass/Vol] 1.19 mg/dL High 0.58-0.[address] [facility] Comment on above: Order Comment: Speci men Type: BLOOD SPECIMENOrdering Facility: [facility] Address: [address] [place] [address] Performed By: #### 2 4323-8 ####[facility] LABCLIA [id number] [address] [place] Creatinine and Glomerular filtration rate.predicted panel (S/P/Bld) 51 mL/min/1.73m??? Low >=60 [facility] Comment on above: Order Comment: Speci men Type: BLOOD SPECIMENOrdering Facility: [facility] Address: [address] [place] [address] Result Comment: Malorie mated Glomerular Filtration Rate (eGFR) is calculated using the 2020 CKD-EPI creatinine equation. This equation utilizes serum creatinine, sex, and age as parameters. The creatinine assay has traceable calibration to isotope dilution-mass spectrometry. Refer to KDIGO guidelines for clinical interpretation. In patients with unstable renal function, e.g. those with acute kidney injury, the eGFR may not accurately reflect actual GFR. Performed By: #### 2 4323-8 ####[facility] LABIA [id number] [place] [address] [place] Glucose [Mass/Vol] 121 mg/dL High 74-99 [facility] Comment on above: Order Comment: Speci men Type: BLOOD SPECIMENOrdering Facility: [facility] Address: [address] [place] [address] Result Comment: The [place] Diabetes [employer] (ADA) provides guidance for cutoff values for fasting glucose and random glucose. The ADA defines fasting as no caloric intake for at least 8 hours. Fasting plasma glucose results between 100 to 125 mg/dL indicate increased risk for diabetes (prediabetes).Fasting plasma glucose results greater than or equal to 126 mg/dL meet the criteria for diagnosis of diabetes. In the absence of unequivocal hyperglycemia, results should be confirmed by repeat testing. In a patient with classic symptoms of hyperglycemia or hyperglycemic crisis, random plasma glucose results greater than or equal to 200 mg/dL meet the criteria for diagnosis of diabetes.Reference: Standards of Medical Care in Diabetes 2016, [place] [employer]. Diabetes Care. 2016.39(Suppl 1). Performed By: #### 2 4323-8 ####[facility] LABIA [id number] [place] [address] [place] Potassium [Moles/Vol] 3.8 mmol/L Normal 3.7-5.[address] [facility] Comment on above: Order Comment: Speci men Type: BLOOD SPECIMENOrdering Facility: [facility] Address: [address] [place] [address] Performed By: #### 2 4323-8 ####[facility] LABIA [id number] [place] [address] [place] Protein [Mass/Vol] 6.8 g/dL Normal 6.3-8.0 [facility] Comment on above: Order Comment: Speci men Type: BLOOD SPECIMENOrdering Facility: [facility] Address: [address] [place] [address] Performed By: #### 2 4323-8 ####[facility] LABCLIA [id number] [place] [address] [place] Sodium [Moles/Vol] 141 mmol/L Normal 136-144 [facility] Comment on above: Order Comment: Speci men Type: BLOOD SPECIMENOrdering Facility: [facility] Address: [address] [place] [address] Performed By: #### 2 4323-8 ####[facility] LABCLIA [id number] [place] [address] [place] Urea nitrogen [Mass/Vol] 10 mg/dL Normal 7-21 [facility] Comment on above: Order Comment: Speci men Type: BLOOD SPECIMENOrdering Facility: [facility] Address: [address] [place] [address] Performed By: #### 2 4323-8 ####[facility] LABIA [id number] [place] [address] [place] ECG COMPLETEon 11-09-2023 ECG COMPLETE Normal [facility] NURSING PROGon 11-09-2023 NURSING PROG Normal [facility] ALLIED HEALTHon 11-08-2023 ALLIED HEALTH Normal [facility] CASE MANAGEMon 11-08-2023 CASE MANAGEM Normal [facility] CBC panel Auto (Bld)on 11-07 Erythrocyte distribution width (RBC) [Ratio] 14.7 % Normal 11.5-15.0 [facility] Comment on above: Order Comment: Speci men Type: BLOOD SPECIMENOrdering Facility: [facility] Address: [address] [place] [address] Performed By: #### 5 8410-2 ####[facility] LABIA [id number] [place] [address] [place] Hematocrit (Bld) [Volume fraction] 30.4 % Low 36.0-46.0 [facility] Comment on above: Order Comment: Speci men Type: BLOOD SPECIMENOrdering Facility: [facility] Address: [address] [place] [address] Performed By: #### 5 8410-2 ####[facility] LABCLIA [id number] [place] [address] [place] Hemoglobin (Bld) [Mass/Vol] 9.3 g/dL Low 11.5-15.5 [facility] Comment on above: Order Comment: Speci men Type: BLOOD SPECIMENOrdering Facility: [facility] Address: [address] [place] [address] Performed By: #### 5 8410-2 ####[facility] LABCLIA [id number] [place] [address] [place] MCH (RBC) [Entitic mass] 31.6 pg Normal 26.0-34.0 [facility] Comment on above: Order Comment: Speci men Type: BLOOD SPECIMENOrdering Facility: [facility] Address: [address] [place] [address] Performed By: #### 5 8410-2 ####[facility] LABIA [id number] [place] [address] [place] MCHC (RBC) [Mass/Vol] 30.6 g/dL Normal 30.5-36.[address] [facility] Comment on above: Order Comment: Speci men Type: BLOOD SPECIMENOrdering Facility: [facility] Address: [address] [place] [address] Performed By: #### 5 8410-2 ####[facility] LABCLIA [id number] [place] [address] [place] MCV (RBC) [Entitic vol] 103.4 fL High 80.0-100.0 [facility] Comment on above: Order Comment: Speci men Type: BLOOD SPECIMENOrdering Facility: [facility] Address: [address] [place] [address] Performed By: #### 5 8410-2 ####[facility] LABCLIA [id number] [place] [address] [place] Nucleated RBC (Bld) [#/Vol] 10*3/uL Normal <0.01 [facility] Comment on above: Order Comment: Speci men Type: BLOOD SPECIMENOrdering Facility: [facility] Address: [address] [place] [address] Performed By: #### 5 8410-2 ####[facility] LABIA [id number] [place] [address] [place] Platelet mean volume (Bld) [Entitic vol] 9.2 fL Normal 9.0-12.7 [facility] Comment on above: Order Comment: Speci men Type: BLOOD SPECIMENOrdering Facility: [facility] Address: [address] [place] [address] Performed By: #### 5 8410-2 ####[facility] LABIA [id number] [place] [address] [place] Platelets (Bld) [#/Vol] 377 10*3/uL Normal 150-400 [facility] Comment on above: Order Comment: Speci men Type: BLOOD SPECIMENOrdering Facility: [facility] Address: [address] [place] [address] Performed By: #### 5 8410-2 ####[facility] LABIA [id number] [place] [address] [place] RBC (Bld) [#/Vol] 2.94 10*6/uL Low 3.90-5.20 [facility] Comment on above: Order Comment: Speci men Type: BLOOD SPECIMENOrdering Facility: [facility] Address: [address] [place] [address] Performed By: #### 5 8410-2 ####[facility] LABCLIA [id number] [place] [address] [place] WBC (Bld) [#/Vol] 10.42 10*3/uL Normal 3.70-11.00 [facility] Comment on above: Order Comment: Speci men Type: BLOOD SPECIMENOrdering Facility: [facility] Address: [address] [place] [address] Performed By: #### 5 8410-2 ####[facility] LABCLIA [id number] [place] [address] [place] CONSULT PROGon 11-08-2023 CONSULT PROG Normal [facility] Comprehensive metabolic 2000 panelon 11-08-2023 Albumin [Mass/Vol] 3.0 g/dL Low 3.9-4.9 [facility] Comment on above: Order Comment: Speci men Type: BLOOD SPECIMENOrdering Facility: [facility] Address: [address] [place] [address] Performed By: #### 2 4323-8, 89289-9 ####[facility] LABCLIA [id number] [place] [address] [place] ALP [Catalytic activity/Vol] 75 U/L Normal 34-123 [facility] Comment on above: Order Comment: Speci men Type: BLOOD SPECIMENOrdering Facility: [facility] Address: [address] [place] [address] Performed By: #### 2 4323-8, 44062-7 ####[facility] LABCLIA [id number] [place] [address] [place] ALT [Catalytic activity/Vol] 16 U/L Normal 7-38 [facility] Comment on above: Order Comment: Speci men Type: BLOOD SPECIMENOrdering Facility: [facility] Address: [address] [place] [address] Performed By: #### 2 4323-8, 96818-3 ####[facility] LABCLIA [id number] [place] [address] [place] Anion gap [Moles/Vol] 10 mmol/L Normal 8-[address] [facility] Comment on above: Order Comment: Speci men Type: BLOOD SPECIMENOrdering Facility: [facility] Address: [address] [place] [place] [id number] Performed By: #### 2 4323-8, 77496-9 ####[facility] LABCLIA [id number] [place] [id number] [place] AST [Catalytic activity/Vol] 20 U/L Normal 13-35 [facility] Comment on above: Order Comment: Speci men Type: BLOOD SPECIMENOrdering Facility: [facility] Address: [address] [place] [address] Performed By: #### 2 4323-8, 22443-1 ####[facility] LABIA [id number] [place] [address] [place] Bilirubin [Mass/Vol] 0.7 mg/dL Normal 0.2-1.3 [facility] Comment on above: Order Comment: Speci men Type: BLOOD SPECIMENOrdering Facility: [facility] Address: [address] [place] [address] Performed By: #### 2 4323-8, 54457-3 ####[facility] LABIA [id number] [place] [address] [place] Calcium [Mass/Vol] 9.0 mg/dL Normal 8.5-10.2 [facility] Comment on above: Order Comment: Speci men Type: BLOOD SPECIMENOrdering Facility: [facility] Address: [address] [place], [place] [id number] Performed By: #### 2 4323-8, 69548-7 ####[facility] LABIA [id number] [place] [address] [place] Chloride [Moles/Vol] 99 mmol/L Normal 98-107 [facility] Comment on above: Order Comment: Speci men Type: BLOOD SPECIMENOrdering Facility: [facility] Address: [address] [place] [address] Performed By: #### 2 4323-8, 38718-7 ####[facility] LABIA [id number] [place] [address] [place] CO2 [Moles/Vol] 28 mmol/L Normal 22-30 [facility] Comment on above: Order Comment: Speci men Type: BLOOD SPECIMENOrdering Facility: [facility] Address: [address] [place] [address] Performed By: #### 2 4323-8, ####[facility] LABIA [id number] [place] [address] [place] Creatinine [Mass/Vol] 1.23 mg/dL High 0.58-0.[address] [facility] Comment on above: Order Comment: Speci men Type: BLOOD SPECIMENOrdering Facility: [facility] Address: [address] [place] [address] Performed By: #### 2 4323-8, ####[facility] LABIA [id number] [place] [address] [place] Creatinine and Glomerular filtration rate.predicted panel (S/P/Bld) 49 mL/min/1.73m??? Low >=60 [facility] Comment on above: Order Comment: Speci men Type: BLOOD SPECIMENOrdering Facility: [facility] Address: [address] [place] [address] Result Comment: Malorie mated Glomerular Filtration Rate (eGFR) is calculated using the 2020 CKD-EPI creatinine equation. This equation utilizes serum creatinine, sex, and age as parameters. The creatinine assay has traceable calibration to isotope dilution-mass spectrometry. Refer to KDIGO guidelines for clinical interpretation. In patients with unstable renal function, e.g. those with acute kidney injury, the eGFR may not accurately reflect actual GFR. Performed By: #### 2 4323-8, 09159-6 ####[facility] LABIA [id number] [place] [address] [place] Glucose [Mass/Vol] 184 mg/dL High 74-99 [facility] Comment on above: Order Comment: Speci men Type: BLOOD SPECIMENOrdering Facility: [facility] Address: [address] [place] [address] Result Comment: The [place] Diabetes Association (ADA) provides guidance for cutoff values for fasting glucose and random glucose. The ADA defines fasting as no caloric intake for at least 8 hours. Fasting plasma glucose results between 100 to 125 mg/dL indicate increased risk for diabetes (prediabetes).Fasting plasma glucose results greater than or equal to 126 mg/dL meet the criteria for diagnosis of diabetes. In the absence of unequivocal hyperglycemia, results should be confirmed by repeat testing. In a patient with classic symptoms of hyperglycemia or hyperglycemic crisis, random plasma glucose results greater than or equal to 200 mg/dL meet the criteria for diagnosis of diabetes.Reference: Standards of Medical Care in Diabetes 2016, [place] Diabetes Association. Diabetes Care. 2016.39(Suppl 1). Performed By: #### 2 4323-8, 46374-2 ####[facility] LABCLIA [id number] [place] [address] [place] Potassium [Moles/Vol] 3.8 mmol/L Normal 3.7-5.[address] [facility] Comment on above: Order Comment: Ernie billy Type: BLOOD SPECIMENOrdering Facility: [facility] Address: [address] [place] [address] Performed By: #### 2 4323-8, 10291-4 ####[facility] LABCLIA [id number] [place] [address] [place] Protein [Mass/Vol] 6.1 g/dL Low 6.3-8.0 [facility] Comment on above: Order Comment: Kennethi men Type: BLOOD SPECIMENOrdering Facility: [facility] Address: [address] [place] [address] Performed By: #### 2 4323-8, 41207-2 ####[facility] LABCLIA [id number] [place] [address] [place] Sodium [Moles/Vol] 137 mmol/L Normal 136-144 [facility] Comment on above: Order Comment: Speci men Type: BLOOD SPECIMENOrdering Facility: [facility] Address: [address] [place] [address] Performed By: #### 2 4323-8, 02951-4 ####[facility] LABCLIA [id number] [place] [address] [place] Urea nitrogen [Mass/Vol] 13 mg/dL Normal 7-21 [facility] Comment on above: Order Comment: Speci men Type: BLOOD SPECIMENOrdering Facility: [facility] Address: [address] [place] [address] Performed By: #### 2 4323-8, 49643-7 ####[facility] LABCLIA [id number] [place] [address] [place] ECG COMPLETEon 11-08-2023 ECG COMPLETE Normal [facility] Lipid 1996 panelon Cholesterol [Mass/Vol] 167 mg/dL Normal <200 [facility] Comment on above: Order Comment: Speci men Type: BLOOD SPECIMENOrdering Facility: [facility] Address: [address] [place] [address] Result Comment: <200 mg/dL, Desirable 200-239 mg/dL, Borderline high>239 mg/dL, High Performed By: #### 2 4323-8, 98925-0 ####[facility] LABCLIA [id number] [place] [address] [place] Cholesterol in HDL [Mass/Vol] 43 mg/dL Normal >39 [facility] Comment on above: Order Comment: Speci men Type: BLOOD SPECIMENOrdering Facility: [facility] Address: [address] [place] [address] Result Comment: 40-5 9 mg/dL, Acceptable>59 mg/dL, High: Negative risk factor for coronary heart disease<40 mg/dL, Low: Positive risk factor for coronary heart disease Performed By: #### 2 43207-07, 09876-7 ####[facility] LABCLIA [id number] [place] [address] [place] Cholesterol in LDL [Mass/Vol] 80 mg/dL Normal <100 [facility] Comment on above: Order Comment: Speci men Type: BLOOD SPECIMENOrdering Facility: [facility] Address: [address] [place] [address] Result Comment: <100 mg/dL, Optimal 100-129 mg/dL, Near optimal/above optimal 130-159 mg/dL, Borderline high 160-189 mg/dL, High>189 mg/dL, Very highSecondary prevention optimal LDL Cholesterol levels are recommended to be < 70 mg/dL Performed By: #### 2 4322-11, ####[facility] LABIA [id number] [place] [address] [place] Cholesterol in LDL/Cholesterol in HDL [Mass ratio] 1.86 {ratio} Normal <2.54 [facility] Comment on above: Order Comment: Speci men Type: BLOOD SPECIMENOrdering Facility: [facility] Address: [address] [place] [address] Result Comment: Lobito gunter:1. National Cholesterol Education Program ATP III Guideline At-A-Glance Quick Desk Reference: National Heart, Lung, and Blood Hixson. National Institutes of Health. 2001: NIH Publication No. 01-3305.2. An International Atherosclerosis Society position paper: global recommendations for the management of dyslipidemia: executive summary, Atherosclerosis. 2014: 232(2):410-413. Performed By: #### 2 4322-11, ####[facility] LABIA [id number] [place] [address] [place] Cholesterol in VLDL [Mass/Vol] 44 mg/dL High <30 [facility] Comment on above: Order Comment: Speci men Type: BLOOD SPECIMENOrdering Facility: [facility] Address: [address] [place] [address] Performed By: #### 2 4322-11, ####[facility] LABCLIA [id number] [place] [id number] [place] Cholesterol non HDL [Mass/Vol] 124 mg/dL Normal <130 [facility] Comment on above: Order Comment: Speci men Type: BLOOD SPECIMENOrdering Facility: [facility] Address: [address] [place] [address] Result Comment: <130 mg/dL, Optimal 130-159 mg/dL, Near optimal/above optimal 160-189 mg/dL, Borderline high 190-219 mg/dL, High>219 mg/dL, Very highSecondary prevention optimal non HDL Cholesterol levels are recommended to be <100 mg/dL Performed By: #### 2 4323-8, 28428-1 ####[facility] LABCLIA [id number] [place] [address] [place] Cholesterol.total/Chol esterol in HDL [Mass ratio] 3.88 {ratio} Normal <5.10 [facility] Comment on above: Order Comment: Speci men Type: BLOOD SPECIMENOrdering Facility: [facility] Address: [address] [place] [address] Performed By: #### 2 4323-8, 72980-1 ####[facility] LABCLIA [id number] [place] [address] [place] FASTING TIME Normal [facility] Comment on above: Order Comment: Speci men Type: BLOOD SPECIMENOrdering Facility: [facility] Address: [address] [place] [address] Result Comment: Unkn own Performed By: #### 2 4323-8, 29538-0 ####[facility] LABIA [id number] [place] [address] [place] Triglyceride [Mass/Vol] 220 mg/dL High <150 [facility] Comment on above: Order Comment: Speci men Type: BLOOD SPECIMENOrdering Facility: [facility] Address: [address], [place] [address] Result Comment: <150 mg/dL, Normal 150-199 mg/dL, Borderline high 200-499 mg/dL, High>499 mg/dL, Very high Performed By: #### 2 4323-8, 82443-6 ####[facility] LABCLIA [id number] [facility] THERAPY NTon 11-08-2023 THERAPY NT Normal [facility] THERAPY NT Normal [facility] XR CHEST 1V FRONTAL PORTon 0 11-08-2023 XR CHEST 1V FRONTAL PORT Normal [facility] CBC panel Auto (Bld)on 11-06 Erythrocyte distribution width (RBC) [Ratio] 14.8 % Normal 11.5-15.0 [facility] Comment on above: Order Comment: Speci men Type: BLOOD SPECIMENOrdering Facility: [facility] Address: [address] [place] [address] Performed By: #### 5 8410-2 ####[facility] LABCLIA [id number] [address] [place] Hematocrit (Bld) [Volume fraction] 30.9 % Low 36.0-46.0 [facility] Comment on above: Order Comment: Speci men Type: BLOOD SPECIMENOrdering Facility: [facility] Address: [address] [place] [address] Performed By: #### 5 8410-2 ####[facility] LABCLIA [id number] [place] [address] [place] Hemoglobin (Bld) [Mass/Vol] 9.4 g/dL Low 11.5-15.5 [facility] Comment on above: Order Comment: Speci men Type: BLOOD SPECIMENOrdering Facility: [facility] Address: [address] [place] [address] Performed By: #### 5 8410-2 ####[facility] LABCLIA [id number] [place] [address] [place] MCH (RBC) [Entitic mass] 30.9 pg Normal 26.0-34.0 [facility] Comment on above: Order Comment: Speci men Type: BLOOD SPECIMENOrdering Facility: [facility] Address: [address] [place] [address] Performed By: #### 5 8410-2 ####[facility] LABIA [id number] [place] [address] [place] MCHC (RBC) [Mass/Vol] 30.4 g/dL Low 30.5-36.[address] [facility] Comment on above: Order Comment: Speci men Type: BLOOD SPECIMENOrdering Facility: [facility] Address: [address] [place] [address] Performed By: #### 5 8410-2 ####[facility] LABIA [id number] [place] [address] [place] MCV (RBC) [Entitic vol] 101.6 fL High 80.0-100.0 [facility] Comment on above: Order Comment: Speci men Type: BLOOD SPECIMENOrdering Facility: [facility] Address: [address] [place] [address] Performed By: #### 5 8410-2 ####[facility] LABIA [id number] [place] [address] [place] Nucleated RBC (Bld) [#/Vol] 0.02 10*3/uL High <0.01 [facility] Comment on above: Order Comment: Speci men Type: BLOOD SPECIMENOrdering Facility: [facility] Address: [address] [place] [address] Performed By: #### 5 8410-2 ####[facility] LABIA [id number] [place] [address] [place] Platelet mean volume (Bld) [Entitic vol] 9.3 fL Normal 9.0-12.7 [facility] Comment on above: Order Comment: Speci men Type: BLOOD SPECIMENOrdering Facility: [facility] Address: [address] [place] [address] Performed By: #### 5 8410-2 ####[facility] LABIA [id number] [place] [address] [place] Platelets (Bld) [#/Vol] 375 10*3/uL Normal 150-400 [facility] Comment on above: Order Comment: Speci men Type: BLOOD SPECIMENOrdering Facility: [facility] Address: [address] [place] [address] Performed By: #### 5 8410-2 ####[facility] LABIA [id number] [place] [address] [place] RBC (Bld) [#/Vol] 3.04 10*6/uL Low 3.90-5.20 [facility] Comment on above: Order Comment: Speci men Type: BLOOD SPECIMENOrdering Facility: [facility] Address: [address] [place] [address] Performed By: #### 5 8410-2 ####[facility] LABIA [id number] [place] [address] [place] WBC (Bld) [#/Vol] 9.69 10*3/uL Normal 3.70-11.00 [facility] Comment on above: Order Comment: Speci men Type: BLOOD SPECIMENOrdering Facility: [facility] Address: [address] [place] [address] Performed By: #### 5 8410-2 ####[facility] LABIA [id number] [place] [address] [place] CONSULT PROGon 11-07-2023 CONSULT PROG Normal [facility] Comprehensive metabolic 2000 panelon 11-07-2023 Albumin [Mass/Vol] 3.3 g/dL Low 3.9-4.9 [facility] Comment on above: Order Comment: Speci men Type: BLOOD SPECIMENOrdering Facility: [facility] Address: [address] [place] [address] Performed By: #### 2 4323-8 ####[facility] LABCLIA [id number] [place] [address] [place] ALP [Catalytic activity/Vol] 72 U/L Normal 34-123 [facility] Comment on above: Order Comment: Speci men Type: BLOOD SPECIMENOrdering Facility: [facility] Address: [address] [place] [address] Performed By: #### 2 4323-8 ####[facility] LABCLIA [id number] [place] [address] [place] ALT [Catalytic activity/Vol] 16 U/L Normal 7-38 [facility] Comment on above: Order Comment: Speci men Type: BLOOD SPECIMENOrdering Facility: [facility] Address: [address] [place] [address] Performed By: #### 2 4323-8 ####[facility] LABCLIA [id number] [place] [address] [place] Anion gap [Moles/Vol] 11 mmol/L Normal 8-[address] [facility] Comment on above: Order Comment: Speci men Type: BLOOD SPECIMENOrdering Facility: [facility] Address: [address] [place] [address] Performed By: #### 2 4323-8 ####[facility] LABCLIA [id number] [place] [address] [place] AST [Catalytic activity/Vol] 16 U/L Normal 13-35 [facility] Comment on above: Order Comment: Speci men Type: BLOOD SPECIMENOrdering Facility: [facility] Address: [address] [place] [address] Performed By: #### 2 4323-8 ####[facility] LABCLIA [id number] [place] [address] [place] Bilirubin [Mass/Vol] 0.7 mg/dL Normal 0.2-1.3 [facility] Comment on above: Order Comment: Speci men Type: BLOOD SPECIMENOrdering Facility: [facility] Address: [address] [place] [address] Performed By: #### 2 4323-8 ####[facility] LABCLIA [id number] [place] [address] [place] Calcium [Mass/Vol] 9.0 mg/dL Normal 8.5-10.2 [facility] Comment on above: Order Comment: Speci men Type: BLOOD SPECIMENOrdering Facility: [facility] Address: [address] [place] [address] Performed By: #### 2 4323-8 ####[facility] LABCLIA [id number] [place] [address] [place] Chloride [Moles/Vol] 99 mmol/L Normal 98-107 [facility] Comment on above: Order Comment: Speci men Type: BLOOD SPECIMENOrdering Facility: [facility] Address: [address] [place] [address] Performed By: #### 2 4323-8 ####[facility] LABCLIA [id number] [place] [address] [place] CO2 [Moles/Vol] 29 mmol/L Normal 22-30 [facility] Comment on above: Order Comment: Speci men Type: BLOOD SPECIMENOrdering Facility: [facility] Address: [address] [place] [address] Performed By: #### 2 4323-8 ####[facility] LABCLIA [id number] [place] [address] [place] Creatinine [Mass/Vol] 1.21 mg/dL High 0.58-0.[address] [facility] Comment on above: Order Comment: Speci men Type: BLOOD SPECIMENOrdering Facility: [facility] Address: [address] [place] [address] Performed By: #### 2 4323-8 ####[facility] LABCLIA [id number] [place] [address] [place] Creatinine and Glomerular filtration rate.predicted panel (S/P/Bld) 50 mL/min/1.73m??? Low >=60 [facility] Comment on above: Order Comment: Ernie billy Type: BLOOD SPECIMENOrdering Facility: [facility] Address: [address] [place] [address] Result Comment: Malorie mated Glomerular Filtration Rate (eGFR) is calculated using the 2020 CKD-EPI creatinine equation. This equation utilizes serum creatinine, sex, and age as parameters. The creatinine assay has traceable calibration to isotope dilution-mass spectrometry. Refer to KDIGO guidelines for clinical interpretation. In patients with unstable renal function, e.g. those with acute kidney injury, the eGFR may not accurately reflect actual GFR. Performed By: #### 2 4323-8 ####[facility] LABCLIA [id number] [place] [address] [place] Glucose [Mass/Vol] 199 mg/dL High 74-99 [facility] Comment on above: Order Comment: Ernie billy Type: BLOOD SPECIMENOrdering Facility: [facility] Address: [address] [place] [address] Result Comment: The [place] Diabetes Association (ADA) provides guidance for cutoff values for fasting glucose and random glucose. The ADA defines fasting as no caloric intake for at least 8 hours. Fasting plasma glucose results between 100 to 125 mg/dL indicate increased risk for diabetes (prediabetes).Fasting plasma glucose results greater than or equal to 126 mg/dL meet the criteria for diagnosis of diabetes. In the absence of unequivocal hyperglycemia, results should be confirmed by repeat testing. In a patient with classic symptoms of hyperglycemia or hyperglycemic crisis, random plasma glucose results greater than or equal to 200 mg/dL meet the criteria for diagnosis of diabetes.Reference: Standards of Medical Care in Diabetes 2016, [place] [employer]. Diabetes Care. 2016.39(Suppl 1). Performed By: #### 2 4323-8 ####[facility] LABCLIA [id number] [place] [address] [place] Potassium [Moles/Vol] 3.9 mmol/L Normal 3.7-5.[address] [facility] Comment on above: Order Comment: Speci men Type: BLOOD SPECIMENOrdering Facility: [facility] Address: [address] [place] [address] Performed By: #### 2 4323-8 ####[facility] LABCLIA [id number] [place] [address] [place] Protein [Mass/Vol] 6.1 g/dL Low 6.3-8.0 [facility] Comment on above: Order Comment: Speci men Type: BLOOD SPECIMENOrdering Facility: [facility] Address: [address] [place] [address] Performed By: #### 2 4323-8 ####[facility] LABCLIA [id number] [place] [address] [place] Sodium [Moles/Vol] 139 mmol/L Normal 136-144 [facility] Comment on above: Order Comment: Speci men Type: BLOOD SPECIMENOrdering Facility: [facility] Address: [address] [place] [address] Performed By: #### 2 4323-8 ####[facility] LABCLIA [id number] [place] [address] [place] Urea nitrogen [Mass/Vol] 16 mg/dL Normal 7-21 [facility] Comment on above: Order Comment: Speci men Type: BLOOD SPECIMENOrdering Facility: [facility] Address: [address] [place] [address] Performed By: #### 2 4323-8 ####[facility] LABCLIA [id number] [place] [id number] [place] POTASSIUMon 11-07-2023 Potassium [Moles/Vol] 3.9 mmol/L Normal 3.7-5.[address] [facility] Comment on above: Order Comment: Speci men Type: BLOOD SPECIMENOrdering Facility: [facility] Address: [address] [place] [address] Performed By: #### K 1 ####[facility] LABCLIA [id number] [place] [address] [place] THERAPY NTon 11-07-2023 THERAPY NT Normal [facility] XR CHEST 1V FRONTAL PORTon 0 11-07-2023 XR CHEST 1V FRONTAL PORT Normal [facility] CBC panel Auto (Bld)on 11-05 Erythrocyte distribution width (RBC) [Ratio] 14.9 % Normal 11.5-15.0 [facility] Comment on above: Order Comment: Speci men Type: BLOOD SPECIMENOrdering Facility: [facility] Address: [address] [place] [address] Performed By: #### 5 8410-2 ####[facility] LABCLIA [id number] [place] [address] [place] Hematocrit (Bld) [Volume fraction] 29.7 % Low 36.0-46.0 [facility] Comment on above: Order Comment: Speci men Type: BLOOD SPECIMENOrdering Facility: [facility] Address: [address] [place] [address] Performed By: #### 5 8410-2 ####[facility] LABCLIA [id number] [place] [address] [place] Hemoglobin (Bld) [Mass/Vol] 9.0 g/dL Low 11.5-15.5 [facility] Comment on above: Order Comment: Speci men Type: BLOOD SPECIMENOrdering Facility: [facility] Address: [address] [place] [address] Performed By: #### 5 8410-2 ####[facility] LABCLIA [id number] [place] [address] [place] MCH (RBC) [Entitic mass] 31.1 pg Normal 26.0-34.0 [facility] Comment on above: Order Comment: Speci men Type: BLOOD SPECIMENOrdering Facility: [facility] Address: [address] [place] [address] Performed By: #### 5 8410-2 ####[facility] LABIA [id number] [place] [address] [place] MCHC (RBC) [Mass/Vol] 30.3 g/dL Low 30.5-36.[address] [facility] Comment on above: Order Comment: Speci men Type: BLOOD SPECIMENOrdering Facility: [facility] Address: [address] [place] [address] Performed By: #### 5 8410-2 ####[facility] LABIA [id number] [place] [address] [place] MCV (RBC) [Entitic vol] 102.8 fL High 80.0-100.0 [facility] Comment on above: Order Comment: Speci men Type: BLOOD SPECIMENOrdering Facility: [facility] Address: [address] [place] [address] Performed By: #### 5 8410-2 ####[facility] LABIA [id number] [place] [address] [place] Nucleated RBC (Bld) [#/Vol] 10*3/uL Normal <0.01 [facility] Comment on above: Order Comment: Speci men Type: BLOOD SPECIMENOrdering Facility: [facility] Address: [address] [place] [address] Performed By: #### 5 8410-2 ####[facility] LABIA [id number] [place] [address] [place] Platelet mean volume (Bld) [Entitic vol] 10.2 fL Normal 9.0-12.7 [facility] Comment on above: Order Comment: Speci men Type: BLOOD SPECIMENOrdering Facility: [facility] Address: [address] [place] [address] Performed By: #### 5 8410-2 ####[facility] LABIA [id number] [address] [address] [place] Platelets (Bld) [#/Vol] 253 10*3/uL Normal 150-400 [facility] Comment on above: Order Comment: Speci men Type: BLOOD SPECIMENOrdering Facility: [facility] Address: [address] [place] [address] Performed By: #### 5 8410-2 ####[facility] LABIA [id number] [place] [address] [place] RBC (Bld) [#/Vol] 2.89 10*6/uL Low 3.90-5.20 [facility] Comment on above: Order Comment: Speci men Type: BLOOD SPECIMENOrdering Facility: [facility] Address: [address] [place] [address] Performed By: #### 5 8410-2 ####[facility] [id number] [place] [address] [place] WBC (Bld) [#/Vol] 7.50 10*3/uL Normal 3.70-11.00 [facility] Comment on above: Order Comment: Speci men Type: BLOOD SPECIMENOrdering Facility: [facility] Address: [address] [place] [address] Performed By: #### 5 8410-2 ####[facility] [id number] [place] [id number] [place] CONSULT PROGon 11-06-2023 CONSULT PROG Normal [facility] Comprehensive metabolic 2000 panelon 11-06-2023 Albumin [Mass/Vol] 3.3 g/dL Low 3.9-4.9 [facility] Comment on above: Order Comment: Speci men Type: BLOOD SPECIMENOrdering Facility: [facility] Address: [address] [place] [address] Performed By: #### 2 4323-8 ####[facility] LABCLIA [id number] [place] [id number] [place] ALP [Catalytic activity/Vol] 60 U/L Normal 34-123 [facility] Comment on above: Order Comment: Speci men Type: BLOOD SPECIMENOrdering Facility: [facility] Address: [address] [place] [address] Performed By: #### 2 4323-8 ####[facility] LABCLIA [id number] [place] [address] [place] ALT [Catalytic activity/Vol] 18 U/L Normal 7-38 [facility] Comment on above: Order Comment: Speci men Type: BLOOD SPECIMENOrdering Facility: [facility] Address: [address] [place] [address] Performed By: #### 2 4323-8 ####[facility] LABCLIA [id number] [place] [address] [place] Anion gap [Moles/Vol] 14 mmol/L Normal 8-[address] [facility] Comment on above: Order Comment: Speci men Type: BLOOD SPECIMENOrdering Facility: [facility] Address: [address] [place] [address] Performed By: #### 2 4323-8 ####[facility] LABCLIA [id number] [place] [address] [place] AST [Catalytic activity/Vol] 15 U/L Normal 13-35 [facility] Comment on above: Order Comment: Speci men Type: BLOOD SPECIMENOrdering Facility: [facility] Address: [address] [place] [address] Performed By: #### 2 4323-8 ####[facility] LABCLIA [id number] [place] [address] [place] Bilirubin [Mass/Vol] 0.6 mg/dL Normal 0.2-1.3 [facility] Comment on above: Order Comment: Speci men Type: BLOOD SPECIMENOrdering Facility: [facility] Address: [address] [place] [address] Performed By: #### 2 4323-8 ####[facility] LABCLIA [id number] [address] [address] [place] Calcium [Mass/Vol] 9.0 mg/dL Normal 8.5-10.2 [facility] Comment on above: Order Comment: Speci men Type: BLOOD SPECIMENOrdering Facility: [facility] Address: [address] [place], [place] [address] Performed By: #### 2 4323-8 ####[facility] LABCLIA [id number] [address] [address] [place] Chloride [Moles/Vol] 102 mmol/L Normal 98-107 [facility] Comment on above: Order Comment: Speci men Type: BLOOD SPECIMENOrdering Facility: [facility] Address: [address] [place], [place] [address] Performed By: #### 2 4323-8 ####[facility] LABCLIA [id number] [place] [address] [place] CO2 [Moles/Vol] 28 mmol/L Normal 22-30 [facility] Comment on above: Order Comment: Speci men Type: BLOOD SPECIMENOrdering Facility: [facility] Address: [address] [place] [address] Performed By: #### 2 4323-8 ####[facility] LABCLIA [id number] [address] [address] [place] Creatinine [Mass/Vol] 1.22 mg/dL High 0.58-0.[address] [facility] Comment on above: Order Comment: Speci men Type: BLOOD SPECIMENOrdering Facility: [facility] Address: [address] [place] [address] Performed By: #### 2 4323-8 ####[facility] LABCLIA [id number] [place] [address] [place] Creatinine and Glomerular filtration rate.predicted panel (S/P/Bld) 50 mL/min/1.73m??? Low >=60 [facility] Comment on above: Order Comment: Ernie billy Type: BLOOD SPECIMENOrdering Facility: [facility] Address: [address] [place] [address] Result Comment: Malorie mated Glomerular Filtration Rate (eGFR) is calculated using the 2020 CKD-EPI creatinine equation. This equation utilizes serum creatinine, sex, and age as parameters. The creatinine assay has traceable calibration to isotope dilution-mass spectrometry. Refer to KDIGO guidelines for clinical interpretation. In patients with unstable renal function, e.g. those with acute kidney injury, the eGFR may not accurately reflect actual GFR. Performed By: #### 2 4323-8 ####[facility] LABIA [id number] [place] [address] [place] Glucose [Mass/Vol] 168 mg/dL High 74-99 [facility] Comment on above: Order Comment: Ernie billy Type: BLOOD SPECIMENOrdering Facility: [facility] Address: [address] [place] [address] Result Comment: The [place] [employer] (ADA) provides guidance for cutoff values for fasting glucose and random glucose. The ADA defines fasting as no caloric intake for at least 8 hours. Fasting plasma glucose results between 100 to 125 mg/dL indicate increased risk for diabetes (prediabetes).Fasting plasma glucose results greater than or equal to 126 mg/dL meet the criteria for diagnosis of diabetes. In the absence of unequivocal hyperglycemia, results should be confirmed by repeat testing. In a patient with classic symptoms of hyperglycemia or hyperglycemic crisis, random plasma glucose results greater than or equal to 200 mg/dL meet the criteria for diagnosis of diabetes.Reference: Standards of Medical Care in Diabetes 2016, [place] [employer]. Diabetes Care. 2016.39(Suppl 1). Performed By: #### 2 4323-8 ####[facility] LABCLIA [id number] [place] [address] [place] Potassium [Moles/Vol] 3.4 mmol/L Low 3.7-5.[address] [facility] Comment on above: Order Comment: Speci men Type: BLOOD SPECIMENOrdering Facility: [facility] Address: [address] [place] [address] Performed By: #### 2 4323-8 ####[facility] LABCLIA [id number] [place] [address] [place] Protein [Mass/Vol] 6.1 g/dL Low 6.3-8.0 [facility] Comment on above: Order Comment: Speci men Type: BLOOD SPECIMENOrdering Facility: [facility] Address: [address] [place] [address] Performed By: #### 2 4323-8 ####[facility] LABCLIA [id number] [place] [address] [place] Sodium [Moles/Vol] 144 mmol/L Normal 136-144 [facility] Comment on above: Order Comment: Speci men Type: BLOOD SPECIMENOrdering Facility: [facility] Address: [address] [place] [address] Performed By: #### 2 4323-8 ####[facility] LABCLIA [id number] [place] [address] [place] Urea nitrogen [Mass/Vol] 19 mg/dL Normal 7-21 [facility] Comment on above: Order Comment: Speci men Type: BLOOD SPECIMENOrdering Facility: [facility] Address: [address] [place] [address] Performed By: #### 2 4323-8 ####[facility] LABCLIA [id number] [place] [id number] [place] POTASSIUMon 11-06-2023 Potassium [Moles/Vol] 3.8 mmol/L Normal 3.7-5.[address] [facility] Comment on above: Order Comment: Speci men Type: BLOOD SPECIMENOrdering Facility: [facility] Address: [address] [place] [address] Performed By: #### K 1 ####[facility] LABCLIA [id number] [place] [address] [place] TYPE + SCREENon 11-06-2023 ABO O Normal [facility] Comment on above: Order Comment: Speci men Type: BLOOD SPECIMENOrdering Facility: [facility] Address: [address] [place] [address] Performed By: #### T SCR ####[facility] BLO[facility] BANKCLIA [id number] [place] [address] [place] HISTORICAL AB SCR STATUS Negative Normal [facility] Comment on above: Order Comment: Speci men Type: BLOOD SPECIMENOrdering Facility: [facility] Address: [address] [place] [address] Performed By: #### T SCR ####[facility] BLOOD BANKCLIA [id number] [place] [address] [place] Rh Nom (Bld) Positive Normal [facility] Comment on above: Order Comment: Speci men Type: BLOOD SPECIMENOrdering Facility: [facility] Address: [address] [place] [address] Performed By: #### T SCR ####[facility] BLOOD BANKCLIA [id number] [place] [address] [place] TYPE AND SCREEN EXPIRATION 11/09/2023 23:59 Normal [facility] Comment on above: Order Comment: Speci men Type: BLOOD SPECIMENOrdering Facility: [facility] Address: [address] [place], [place] [address] Performed By: #### T SCR ####[facility] B[facility] BANKCLIA [id number] [place] [id number] [place] US CHEST EFFUSION SURVEYon 0 11-06-2023 US CHEST EFFUSION SURVEY Normal [facility] XR CHEST 1V FRONTALon 2023 XR CHEST 1V FRONTAL Normal [facility] CBC panel Auto (Bld)on 11-04 Erythrocyte distribution width (RBC) [Ratio] 14.6 % Normal 11.5-15.0 [facility] Comment on above: Order Comment: Speci men Type: BLOOD SPECIMENOrdering Facility: [facility] Address: [address] [place] [address] Performed By: #### 5 8410-2 ####[facility] LABIA [id number] [place] [address] [place] Hematocrit (Bld) [Volume fraction] 28.6 % Low 36.0-46.0 [facility] Comment on above: Order Comment: Speci men Type: BLOOD SPECIMENOrdering Facility: [facility] Address: [address] [place] [address] Performed By: #### 5 8410-2 ####[facility] LABCLIA [id number] [place] [address] [place] Hemoglobin (Bld) [Mass/Vol] 8.7 g/dL Low 11.5-15.5 [facility] Comment on above: Order Comment: Speci men Type: BLOOD SPECIMENOrdering Facility: [facility] Address: [address] [place] [address] Performed By: #### 5 8410-2 ####[facility] LABIA [id number] [place] [address] [place] MCH (RBC) [Entitic mass] 31.6 pg Normal 26.0-34.0 [facility] Comment on above: Order Comment: Speci men Type: BLOOD SPECIMENOrdering Facility: [facility] Address: [address] [place] [address] Performed By: #### 5 8410-2 ####[facility] LABCLIA [id number] [place] [address] [place] MCHC (RBC) [Mass/Vol] 30.4 g/dL Low 30.5-36.[address] [facility] Comment on above: Order Comment: Speci men Type: BLOOD SPECIMENOrdering Facility: [facility] Address: [address] [place] [address] Performed By: #### 5 8410-2 ####[facility] [id number] [place] [address] [place] MCV (RBC) [Entitic vol] 104.0 fL High 80.0-100.0 [facility] Comment on above: Order Comment: Speci men Type: BLOOD SPECIMENOrdering Facility: [facility] Address: [address] [place] [address] Performed By: #### 5 8410-2 ####[facility] [id number] [place] [address] [place] Nucleated RBC (Bld) [#/Vol] 10*3/uL Normal <0.01 [facility] Comment on above: Order Comment: Speci men Type: BLOOD SPECIMENOrdering Facility: [facility] Address: [address] [place] [address] Performed By: #### 5 8410-2 ####[facility] [id number] [place] [address] [place] Platelet mean volume (Bld) [Entitic vol] 9.7 fL Normal 9.0-12.7 [facility] Comment on above: Order Comment: Speci men Type: BLOOD SPECIMENOrdering Facility: [facility] Address: [address] [place] [address] Performed By: #### 5 8410-2 ####[facility] [id number] [place] [address] [place] Platelets (Bld) [#/Vol] 295 10*3/uL Normal 150-400 [facility] Comment on above: Order Comment: Speci men Type: BLOOD SPECIMENOrdering Facility: [facility] Address: [address] [place] [address] Performed By: #### 5 8410-2 ####[facility] LABCLIA [id number] [address] [address] [place] RBC (Bld) [#/Vol] 2.75 10*6/uL Low 3.90-5.20 [facility] Comment on above: Order Comment: Speci men Type: BLOOD SPECIMENOrdering Facility: [facility] Address: [address] [place] [address] Performed By: #### 5 8410-2 ####[facility] LABCLIA [id number] [address] [address] [place] WBC (Bld) [#/Vol] 8.05 10*3/uL Normal 3.70-11.00 [facility] Comment on above: Order Comment: Speci men Type: BLOOD SPECIMENOrdering Facility: [facility] Address: [address] [place] [address] Performed By: #### 5 8410-2 ####[facility] LABCLIA [id number] [place] [address] [place] Comprehensive metabolic 2000 panelon 11-05-2023 Albumin [Mass/Vol] 3.2 g/dL Low 3.9-4.9 [facility] Comment on above: Order Comment: Speci men Type: BLOOD SPECIMENOrdering Facility: [facility] Address: [address] [place] [address] Performed By: #### 2 4323-8, 24751-0 ####[facility] LABCLIA [id number] [place] [id number] [place] ALP [Catalytic activity/Vol] 59 U/L Normal 34-123 [facility] Comment on above: Order Comment: Speci men Type: BLOOD SPECIMENOrdering Facility: [facility] Address: [address] [place] [address] Performed By: #### 2 4323-8, ####[facility] LABCLIA [id number] [place] [id number] [place] ALT [Catalytic activity/Vol] 20 U/L Normal 7-38 [facility] Comment on above: Order Comment: Speci men Type: BLOOD SPECIMENOrdering Facility: [facility] Address: [address] [place] [address] Performed By: #### 2 4323-8, ####[facility] LABCLIA [id number] [place] [address] [place] Anion gap [Moles/Vol] 15 mmol/L Normal 8-[address] [facility] Comment on above: Order Comment: Speci men Type: BLOOD SPECIMENOrdering Facility: [facility] Address: [address] [place] [address] Performed By: #### 2 4323-8, ####[facility] LABCLIA [id number] [place] [address] [place] AST [Catalytic activity/Vol] 16 U/L Normal 13-35 [facility] Comment on above: Order Comment: Speci men Type: BLOOD SPECIMENOrdering Facility: [facility] Address: [address] [place] [address] Performed By: #### 2 4323-8, ####[facility] LABCLIA [id number] [place] [address] [place] Bilirubin [Mass/Vol] 0.6 mg/dL Normal 0.2-1.3 [facility] Comment on above: Order Comment: Speci men Type: BLOOD SPECIMENOrdering Facility: [facility] Address: [address] [place], [place] [address] Performed By: #### 2 4323-8, ####[facility] LABCLIA [id number] [place] [id number] [place] Calcium [Mass/Vol] 8.9 mg/dL Normal 8.5-10.2 [facility] Comment on above: Order Comment: Speci men Type: BLOOD SPECIMENOrdering Facility: [facility] Address: [address] [place] [address] Performed By: #### 2 4323-8, ####[facility] LABCLIA [id number] [address] [address] [place] Chloride [Moles/Vol] 101 mmol/L Normal 98-107 [facility] Comment on above: Order Comment: Speci men Type: BLOOD SPECIMENOrdering Facility: [facility] Address: [address] [place] [address] Performed By: #### 2 4323-8, ####[facility] LABCLIA [id number] [place] [address] [place] CO2 [Moles/Vol] 26 mmol/L Normal 22-30 [facility] Comment on above: Order Comment: Speci men Type: BLOOD SPECIMENOrdering Facility: [facility] Address: [address] [place] [address] Performed By: #### 2 4323-8, ####[facility] LABCLIA [id number] [place] [address] [place] Creatinine [Mass/Vol] 1.23 mg/dL High 0.58-0.[address] [facility] Comment on above: Order Comment: Speci men Type: BLOOD SPECIMENOrdering Facility: [facility] Address: [address] [place] [address] Performed By: #### 2 4323-8, ####[facility] LABCLIA [id number] [place] [address] [place] Creatinine and Glomerular filtration rate.predicted panel (S/P/Bld) 49 mL/min/1.73m??? Low >=60 [facility] Comment on above: Order Comment: Speci men Type: BLOOD SPECIMENOrdering Facility: [facility] Address: [address] [place] [address] Result Comment: Malorie mated Glomerular Filtration Rate (eGFR) is calculated using the 2020 CKD-EPI creatinine equation. This equation utilizes serum creatinine, sex, and age as parameters. The creatinine assay has traceable calibration to isotope dilution-mass spectrometry. Refer to KDIGO guidelines for clinical interpretation. In patients with unstable renal function, e.g. those with acute kidney injury, the eGFR may not accurately reflect actual GFR. Performed By: #### 2 4322-8, ####[facility] [id number] [place] [address] [place] Glucose [Mass/Vol] 254 mg/dL High 74-99 [facility] Comment on above: Order Comment: Ernie billy Type: BLOOD SPECIMENOrdering Facility: [facility] Address: [address] [place] [address] Result Comment: The [place] [employer] (ADA) provides guidance for cutoff values for fasting glucose and random glucose. The ADA defines fasting as no caloric intake for at least 8 hours. Fasting plasma glucose results between 100 to 125 mg/dL indicate increased risk for diabetes (prediabetes).Fasting plasma glucose results greater than or equal to 126 mg/dL meet the criteria for diagnosis of diabetes. In the absence of unequivocal hyperglycemia, results should be confirmed by repeat testing. In a patient with classic symptoms of hyperglycemia or hyperglycemic crisis, random plasma glucose results greater than or equal to 200 mg/dL meet the criteria for diagnosis of diabetes.Reference: Standards of Medical Care in Diabetes 2016, [place] [employer]. Diabetes Care. 2016.39(Suppl 1). Performed By: #### 2 4322-11, ####[facility] [id number] [place] [id number] [place] Potassium [Moles/Vol] 3.5 mmol/L Low 3.7-5.[address] [facility] Comment on above: Order Comment: Ernie men Type: BLOOD SPECIMENOrdering Facility: [facility] Address: [address] [place] [address] Performed By: #### 2 4322, ####[facility] LABCLIA [id number] [place] [address] [place] Protein [Mass/Vol] 5.9 g/dL Low 6.3-8.0 [facility] Comment on above: Order Comment: Speci men Type: BLOOD SPECIMENOrdering Facility: [facility] Address: [address] [place] [address] Performed By: #### 2 4323-8, ####[facility] LABCLIA [id number] [place] [address] [place] Sodium [Moles/Vol] 142 mmol/L Normal 136-144 [facility] Comment on above: Order Comment: Speci men Type: BLOOD SPECIMENOrdering Facility: [facility] Address: [address] [place] [address] Performed By: #### 2 4328, ####[facility] LABIA [id number] [place] [address] [place] Urea nitrogen [Mass/Vol] 25 mg/dL High 7-21 [facility] Comment on above: Order Comment: Speci men Type: BLOOD SPECIMENOrdering Facility: [facility] Address: [address] [place] [address] Performed By: #### 2 4323-8, ####[facility] LABCLIA [id number] [place] [address] [place] Gas and Carbon monoxide pane l (BldV)on 11-05-2023 Base excess Calc (BldV) [Moles/Vol] 5 mmol/L High 0-2 [facility] Comment on above: Order Comment: Speci men Type: VENOUS BLOOD SPECIMENOrdering Facility: [facility] Address: [address] [place] [address] Performed By: #### 2 4344-4 ####[facility] LABCLIA [id number] [place] [address] [place] Body temperature 98.6 [degF] Normal [facility] Comment on above: Order Comment: Speci men Type: VENOUS BLOOD SPECIMENOrdering Facility: [facility] Address: [address] [place] [address] Performed By: #### 2 4344-4 ####[facility] LABCLIA [id number] [place] [address] [place] Calcium.ionized (Bld) [Mass/Vol] 1.18 mmol/L Normal 1.08-1.30 [facility] Comment on above: Order Comment: Speci men Type: VENOUS BLOOD SPECIMENOrdering Facility: [facility] Address: [address] [place] [address] Performed By: #### 2 4344-4 ####[facility] LABCLIA [id number] [place] [address] [place] Calcium.ionized adjusted to pH 7.4 (BldA) [Moles/Vol] 1.20 mmol/L Normal 1.08-1.30 [facility] [facility] Comment on above: Order Comment: Speci men Type: VENOUS BLOOD SPECIMENOrdering Facility: [facility] Address: [address] [place] [address] Performed By: #### 2 4344-4 ####[facility] LABCLIA [id number] [place] [address] [place] Carboxyhemoglobin (BldV) [Mass fraction] 1.2 % Normal 0.0-2.0 [facility] Comment on above: Order Comment: Speci men Type: VENOUS BLOOD SPECIMENOrdering Facility: [facility] Address: [address] [place] [address] Result Comment: Carb oxyhemoglobin Reference Range for Smokers: 2.0-8.0% Performed By: #### 2 4344-4 ####[facility] LABCLIA [id number] [id number], [place] [address] [place] CO2 (BldV) [Partial pressure] 45 mm[Hg] Normal 42-55 [facility] Comment on above: Order Comment: Speci men Type: VENOUS BLOOD SPECIMENOrdering Facility: [facility] Address: [address] [place] [address] Performed By: #### 2 4344-4 ####[facility] LABCLIA [id number] [place] [address] [place] Glucose [Mass/Vol] 110 mg/dL High 60-105 [facility] Comment on above: Order Comment: Speci men Type: VENOUS BLOOD SPECIMENOrdering Facility: [facility] Address: [address] [place] [address] Performed By: #### 2 4344-4 ####[facility] LABIA [id number] [place] [address] [place] HCO3 (Bld) [Moles/Vol] 30 mmol/L High 24-28 [facility] Comment on above: Order Comment: Speci men Type: VENOUS BLOOD SPECIMENOrdering Facility: [facility] Address: [address] [place] [address] Performed By: #### 2 4344-4 ####[facility] LABIA [id number] [place] [address] [place] Hematocrit (Bld) [Volume fraction] 30.5 % Low 36.0-46.0 [facility] Comment on above: Order Comment: Speci men Type: VENOUS BLOOD SPECIMENOrdering Facility: [facility] Address: [address] [place] [address] Performed By: #### 2 4344-4 ####[facility] LABCLIA [id number] [place] [address] [place] Hemoglobin (Bld) [Mass/Vol] 9.8 g/dL Low 11.5-15.5 [facility] Comment on above: Order Comment: Speci men Type: VENOUS BLOOD SPECIMENOrdering Facility: [facility] Address: [address] [place] [address] Performed By: #### 2 4344-4 ####[facility] LABIA [id number] [place] [address] [place] Lactate [Moles/Vol] 0.9 mmol/L Normal 0.5-2.2 [facility] Comment on above: Order Comment: Speci men Type: VENOUS BLOOD SPECIMENOrdering Facility: [facility] Address: [address] [place] [address] Performed By: #### 2 4344-4 ####[facility] LABIA [id number] [place] [address] [place] Methemoglobin (Bld) [Mass fraction] 0.5 % Normal 0.0-1.5 [facility] Comment on above: Order Comment: Speci men Type: VENOUS BLOOD SPECIMENOrdering Facility: [facility] Address: [address] [place] [address] Performed By: #### 2 4344-4 ####[facility] LABIA [id number] [place] [address] [place] O2 THERAPY RA=Room Air Normal [facility] Comment on above: Order Comment: Speci men Type: VENOUS BLOOD SPECIMENOrdering Facility: [facility] Address: [address] [place] [address] Performed By: #### 2 4344-4 ####[facility] LABIA [id number] [place] [address] [place] Oxygen (BldV) [Partial pressure] 31 mm[Hg] Low 35-45 [facility] Comment on above: Order Comment: Speci men Type: VENOUS BLOOD SPECIMENOrdering Facility: [facility] Address: [address] [place] [address] Performed By: #### 2 4344-4 ####[facility] LABIA [id number] [address] [id number], [place] [address] [place] Oxygen saturation in Venous blood 56 % Low 60-85 [facility] Comment on above: Order Comment: Speci men Type: VENOUS BLOOD SPECIMENOrdering Facility: [facility] Address: [address] [place] [address] Performed By: #### 2 4344-4 ####[facility] LABCLIA [id number] [address] [address] [place] Oxyhemoglobin (BldV) [Mass fraction] 55 % Low 60-85 [facility] Comment on above: Order Comment: Speci men Type: VENOUS BLOOD SPECIMENOrdering Facility: [facility] Address: [address] [place], [place] [address] Performed By: #### 2 4344-4 ####[facility] LABCLIA [id number] [address] [address] [place] pH (BldV) 7.43 [pH] High 7.32-7.42 [facility] Comment on above: Order Comment: Speci men Type: VENOUS BLOOD SPECIMENOrdering Facility: [facility] Address: [address] [place], [place] [address] Performed By: #### 2 4344-4 ####[facility] LABCLIA [id number] [place] [address] [place] Potassium [Moles/Vol] 5.1 mmol/L High 3.5-5.[address] [facility] Comment on above: Order Comment: Speci men Type: VENOUS BLOOD SPECIMENOrdering Facility: [facility] Address: [address] [place] [address] Performed By: #### 2 4344-4 ####[facility] LABCLIA [id number] [place] [id number] [place] Sodium [Moles/Vol] 136 mmol/L Normal 136-144 [facility] Comment on above: Order Comment: Speci men Type: VENOUS BLOOD SPECIMENOrdering Facility: [facility] Address: [address] [place], [place] [address] Performed By: #### 2 4344-4 ####[facility] LABCLIA [id number] [place] [address] [place] Base excess Calc (BldV) [Moles/Vol] 6 mmol/L High 0-2 [facility] Comment on above: Order Comment: Speci men Type: VENOUS BLOOD SPECIMENOrdering Facility: [facility] Address: [address] [place] [address] Performed By: #### 2 4344-4 ####[facility] LABIA [id number] [place] [address] [place] Body temperature 97.88 [degF] Normal [facility] Comment on above: Order Comment: Speci men Type: VENOUS BLOOD SPECIMENOrdering Facility: [facility] Address: [address] [place] [address] Performed By: #### 2 4344-4 ####[facility] LABIA [id number] [place] [address] [place] Calcium.ionized (Bld) [Mass/Vol] 1.18 mmol/L Normal 1.08-1.30 [facility] Comment on above: Order Comment: Speci men Type: VENOUS BLOOD SPECIMENOrdering Facility: [facility] Address: [address] [place] [address] Performed By: #### 2 4344-4 ####[facility] LABIA [id number] [place] [address] [place] Calcium.ionized adjusted to pH 7.4 (BldA) [Moles/Vol] 1.17 mmol/L Normal 1.08-1.30 [facility] Comment on above: Order Comment: Speci men Type: VENOUS BLOOD SPECIMENOrdering Facility: [facility] Address: [address] [place] [address] Performed By: #### 2 4344-4 ####[facility] LABCLIA [id number] [place] [address] [place] Carboxyhemoglobin (BldV) [Mass fraction] 1.6 % Normal 0.0-2.0 [facility] Comment on above: Order Comment: Speci men Type: VENOUS BLOOD SPECIMENOrdering Facility: [facility] Address: [address] [place] [address] Result Comment: Carb oxyhemoglobin Reference Range for Smokers: 2.0-8.0% Performed By: #### 2 4344-4 ####[facility] LABCLIA [id number] [place] [address] [place] CO2 (BldV) [Partial pressure] 54 mm[Hg] Normal 42-55 [facility] Comment on above: Order Comment: Speci men Type: VENOUS BLOOD SPECIMENOrdering Facility: [facility] Address: [address] [place] [address] Performed By: #### 2 4344-4 ####[facility] LABCLIA [id number] [place] [address] [place] CO2 adjusted to patient's actual temperature (BldV) [Partial pressure] 53 mmHg Normal 42-55 [facility] Comment on above: Order Comment: Speci men Type: VENOUS BLOOD SPECIMENOrdering Facility: [facility] Address: [address] [place] [address] Performed By: #### 2 4344-4 ####[facility] LABCLIA [id number] [place] [address] [place] Glucose [Mass/Vol] 215 mg/dL High 60-105 [facility] Comment on above: Order Comment: Speci men Type: VENOUS BLOOD SPECIMENOrdering Facility: [facility] Address: [address] [place] [address] Performed By: #### 2 4344-4 ####[facility] LABCLIA [id number] [place] [address] [place] HCO3 (Bld) [Moles/Vol] 32 mmol/L High 24-28 [facility] Comment on above: Order Comment: Speci men Type: VENOUS BLOOD SPECIMENOrdering Facility: [facility] Address: [address] [place] [address] Performed By: #### 2 4344-4 ####[facility] LABCLIA [id number] [place] [address] [place] Hematocrit (Bld) [Volume fraction] 28.6 % Low 36.0-46.0 [facility] Comment on above: Order Comment: Speci men Type: VENOUS BLOOD SPECIMENOrdering Facility: [facility] Address: [address] [place] [address] Performed By: #### 2 4344-4 ####[facility] LABCLIA [id number] [place] [address] [place] Hemoglobin (Bld) [Mass/Vol] 9.2 g/dL Low 11.5-15.5 [facility] Comment on above: Order Comment: Speci men Type: VENOUS BLOOD SPECIMENOrdering Facility: [facility] Address: [address] [place] [address] Performed By: #### 2 4344-4 ####[facility] LABCLIA [id number] [place] [address] [place] Lactate [Moles/Vol] 1.8 mmol/L Normal 0.5-2.2 [facility] Comment on above: Order Comment: Speci men Type: VENOUS BLOOD SPECIMENOrdering Facility: [facility] Address: [address] [place] [address] Performed By: #### 2 4344-4 ####[facility] LABCLIA [id number] [place] [address] [place] LITERS 3 Liters/min Normal [facility] Comment on above: Order Comment: Speci men Type: VENOUS BLOOD SPECIMENOrdering Facility: [facility] Address: [address] [place] [address] Performed By: #### 2 4344-4 ####[facility] LABCLIA [id number] [address] [address] [place] Methemoglobin (Bld) [Mass fraction] 1.5 % Normal 0.0-1.5 [facility] Comment on above: Order Comment: Speci men Type: VENOUS BLOOD SPECIMENOrdering Facility: [facility] Address: [address] [place], [place] [address] Performed By: #### 2 4344-4 ####[facility] LABCLIA [id number] [place] [address] [place] O2 THERAPY NC = Nasal Cannula Normal [facility] Comment on above: Order Comment: Speci men Type: VENOUS BLOOD SPECIMENOrdering Facility: [facility] Address: [address] [place], [place] [address] Performed By: #### 2 4344-4 ####[facility] LABCLIA [id number] [place] [address] [place] Oxygen (BldV) [Partial pressure] 38 mm[Hg] Normal 35-45 [facility] Comment on above: Order Comment: Speci men Type: VENOUS BLOOD SPECIMENOrdering Facility: [facility] Address: [address] [place], [place] [address] Performed By: #### 2 4344-4 ####[facility] LABCLIA [id number] [place] [address] [place] Oxygen adjusted to patient's actual temperature (BldV) [Partial pressure] 37 mmHg Normal 35-45 [facility] Comment on above: Order Comment: Speci men Type: VENOUS BLOOD SPECIMENOrdering Facility: [facility] Address: [address] [place], [place] [address] Performed By: #### 2 4344-4 ####[facility] LABCLIA [id number] [place] [id number] [place] Oxygen saturation in Venous blood 69 % Normal 60-85 [facility] Comment on above: Order Comment: Speci men Type: VENOUS BLOOD SPECIMENOrdering Facility: [facility] Address: [address] [place] [address] Performed By: #### 2 4344-4 ####[facility] LABCLIA [id number] [address] [address] [place] Oxyhemoglobin (BldV) [Mass fraction] 67 % Normal 60-85 [facility] Comment on above: Order Comment: Speci men Type: VENOUS BLOOD SPECIMENOrdering Facility: [facility] Address: [address] [place], [place] [address] Performed By: #### 2 4344-4 ####[facility] LABCLIA [id number] [address] [address] [place] pH (BldV) 7.38 [pH] Normal 7.32-7.42 [facility] Comment on above: Order Comment: Speci men Type: VENOUS BLOOD SPECIMENOrdering Facility: [facility] Address: [address] [place] [address] Performed By: #### 2 4344-4 ####[facility] LABCLIA [id number] [place] [address] [place] pH adjusted to patient's actual temperature (BldV) 7.39 Normal 7.32-7.42 [facility] Comment on above: Order Comment: Speci men Type: VENOUS BLOOD SPECIMENOrdering Facility: [facility] Address: [address] [place] [address] Performed By: #### 2 4344-4 ####[facility] LABCLIA [id number] [place] [address] [place] Potassium [Moles/Vol] 3.8 mmol/L Normal 3.5-5.[address] [facility] Comment on above: Order Comment: Speci men Type: VENOUS BLOOD SPECIMENOrdering Facility: [facility] Address: [address] [place] [address] Performed By: #### 2 4344-4 ####[facility] LABCLIA [id number] [place] [address] [place] Sodium [Moles/Vol] 142 mmol/L Normal 136-144 [facility] Comment on above: Order Comment: Speci men Type: VENOUS BLOOD SPECIMENOrdering Facility: [facility] Address: [address] [place] [address] Performed By: #### 2 4344-4 ####[facility] LABCLIA [id number] [place] [address] [place] Base excess Calc (BldV) [Moles/Vol] 6 mmol/L High 0-2 [facility] Comment on above: Order Comment: Speci men Type: VENOUS BLOOD SPECIMENOrdering Facility: [facility] Address: [address] [place] [address] Performed By: #### 2 4344-4 ####[facility] LABIA [id number] [place] [address] [place] Body temperature 98.24 [degF] Normal [facility] Comment on above: Order Comment: Speci men Type: VENOUS BLOOD SPECIMENOrdering Facility: [facility] Address: [address] [place] [address] Performed By: #### 2 4344-4 ####[facility] LABIA [id number] [place] [address] [place] Calcium.ionized (Bld) [Mass/Vol] 1.20 mmol/L Normal 1.08-1.30 [facility] Comment on above: Order Comment: Speci men Type: VENOUS BLOOD SPECIMENOrdering Facility: [facility] Address: [address] [place] [address] Performed By: #### 2 4344-4 ####[facility] LABIA [id number] [place] [address] [place] Calcium.ionized adjusted to pH 7.4 (BldA) [Moles/Vol] 1.21 mmol/L Normal 1.08-1.30 [facility] Comment on above: Order Comment: Speci men Type: VENOUS BLOOD SPECIMENOrdering Facility: [facility] Address: [address] [place] [address] Performed By: #### 2 4344-4 ####[facility] LABCLIA [id number] [place] [address] [place] Carboxyhemoglobin (BldV) [Mass fraction] 1.5 % Normal 0.0-2.0 [facility] Comment on above: Order Comment: Speci men Type: VENOUS BLOOD SPECIMENOrdering Facility: [facility] Address: [address] [place] [address] Result Comment: Carb oxyhemoglobin Reference Range for Smokers: 2.0-8.0% Performed By: #### 2 4344-4 ####[facility] LABCLIA [id number] [place] [address] [place] CO2 (BldV) [Partial pressure] 48 mm[Hg] Normal 42-55 [facility] Comment on above: Order Comment: Speci men Type: VENOUS BLOOD SPECIMENOrdering Facility: [facility] Address: [address] [place] [address] Performed By: #### 2 4344-4 ####[facility] LABCLIA [id number] [place] [address] [place] CO2 adjusted to patient's actual temperature (BldV) [Partial pressure] 47 mmHg Normal 42-55 [facility] Comment on above: Order Comment: Speci men Type: VENOUS BLOOD SPECIMENOrdering Facility: [facility] Address: [address] [place] [address] Performed By: #### 2 4344-4 ####[facility] LABCLIA [id number] [place] [address] [place] Glucose [Mass/Vol] 198 mg/dL High 60-105 [facility] Comment on above: Order Comment: Speci men Type: VENOUS BLOOD SPECIMENOrdering Facility: [facility] Address: [address] [place] [address] Performed By: #### 2 4344-4 ####[facility] LABCLIA [id number] [place] [address] [place] HCO3 (Bld) [Moles/Vol] 30 mmol/L High 24-28 [facility] Comment on above: Order Comment: Speci men Type: VENOUS BLOOD SPECIMENOrdering Facility: [facility] Address: [address] [place] [address] Performed By: #### 2 4344-4 ####[facility] LABCLIA [id number] [place] [address] [place] Hematocrit (Bld) [Volume fraction] 30.4 % Low 36.0-46.0 [facility] Comment on above: Order Comment: Speci men Type: VENOUS BLOOD SPECIMENOrdering Facility: [facility] Address: [address] [place] [address] Performed By: #### 2 4344-4 ####[facility] LABIA [id number] [place] [address] [place] Hemoglobin (Bld) [Mass/Vol] 9.8 g/dL Low 11.5-15.5 [facility] Comment on above: Order Comment: Speci men Type: VENOUS BLOOD SPECIMENOrdering Facility: [facility] Address: [address] [place] [address] Performed By: #### 2 4344-4 ####[facility] LABIA [id number] [place] [address] [place] Lactate [Moles/Vol] 1.9 mmol/L Normal 0.5-2.2 [facility] Comment on above: Order Comment: Speci men Type: VENOUS BLOOD SPECIMENOrdering Facility: [facility] Address: [address] [place] [address] Performed By: #### 2 4344-4 ####[facility] LABCLIA [id number] [address] [address] [place] LITERS 3 Liters/min Normal [facility] Comment on above: Order Comment: Speci men Type: VENOUS BLOOD SPECIMENOrdering Facility: [facility] Address: [address] [place] [address] Performed By: #### 2 4344-4 ####[facility] LABCLIA [id number] [address] [address] [place] Methemoglobin (Bld) [Mass fraction] 1.6 % High 0.0-1.5 [facility] Comment on above: Order Comment: Speci men Type: VENOUS BLOOD SPECIMENOrdering Facility: [facility] Address: [address] [place], [place] [address] Performed By: #### 2 4344-4 ####[facility] LABCLIA [id number] [address] [address] [place] O2 THERAPY NC = Nasal Cannula Normal [facility] Comment on above: Order Comment: Speci men Type: VENOUS BLOOD SPECIMENOrdering Facility: [facility] Address: [address] [place] [address] Performed By: #### 2 4344-4 ####[facility] LABCLIA [id number] [address] [address] [place] Oxygen (BldV) [Partial pressure] 49 mm[Hg] High 35-45 [facility] Comment on above: Order Comment: Speci men Type: VENOUS BLOOD SPECIMENOrdering Facility: [facility] Address: [address] [place] [address] Performed By: #### 2 4344-4 ####[facility] LABCLIA [id number] [address] [address] [place] Oxygen adjusted to patient's actual temperature (BldV) [Partial pressure] 48 mmHg High 35-45 [facility] Comment on above: Order Comment: Speci men Type: VENOUS BLOOD SPECIMENOrdering Facility: [facility] Address: [address] [place], [place] [address] Performed By: #### 2 4344-4 ####[facility] LABCLIA [id number] [address] [address] [place] Oxygen saturation in Venous blood 82 % Normal 60-85 [facility] Comment on above: Order Comment: Speci men Type: VENOUS BLOOD SPECIMENOrdering Facility: [facility] Address: [address] [place], [place] [address] Performed By: #### 2 4344-4 ####[facility] LABCLIA [id number] [place] [address] [place] Oxyhemoglobin (BldV) [Mass fraction] 80 % Normal 60-85 [facility] Comment on above: Order Comment: Speci men Type: VENOUS BLOOD SPECIMENOrdering Facility: [facility] Address: [address] [place] [address] Performed By: #### 2 4344-4 ####[facility] LABCLIA [id number] [place] [address] [place] pH (BldV) 7.42 [pH] Normal 7.32-7.42 [facility] Comment on above: Order Comment: Speci men Type: VENOUS BLOOD SPECIMENOrdering Facility: [facility] Address: [address] [place], [place] [address] Performed By: #### 2 4344-4 ####[facility] LABCLIA [id number] [place] [id number] [place] pH adjusted to patient's actual temperature (BldV) 7.42 Normal 7.32-7.42 [facility] Comment on above: Order Comment: Speci men Type: VENOUS BLOOD SPECIMENOrdering Facility: [facility] Address: [address] [place], [place] [address] Performed By: #### 2 4344-4 ####[facility] LABCLIA [id number] [place] [address] [place] Potassium [Moles/Vol] 3.5 mmol/L Normal 3.5-5.[address] [facility] Comment on above: Order Comment: Speci men Type: VENOUS BLOOD SPECIMENOrdering Facility: [facility] Address: [address] [place] [address] Performed By: #### 2 4344-4 ####[facility] LABIA [id number] [place] [address] [place] Sodium [Moles/Vol] 142 mmol/L Normal 136-144 [facility] Comment on above: Order Comment: Speci men Type: VENOUS BLOOD SPECIMENOrdering Facility: [facility] Address: [address] [place] [address] Performed By: #### 2 4344-4 ####[facility] [id number] [place] [address] [place] Base excess Calc (BldV) [Moles/Vol] 4 mmol/L High 0-2 [facility] Comment on above: Order Comment: Speci men Type: VENOUS BLOOD SPECIMENOrdering Facility: [facility] Address: [address] [place] [address] Performed By: #### 2 4344-4 ####[facility] [id number] [place] [address] [place] Body temperature 99.5 [degF] Normal [facility] Comment on above: Order Comment: Speci men Type: VENOUS BLOOD SPECIMENOrdering Facility: [facility] Address: [address] [place] [address] Performed By: #### 2 4344-4 ####[facility] LABIA [id number] [place] [address] [place] Calcium.ionized (Bld) [Mass/Vol] 1.10 mmol/L Normal 1.08-1.30 [facility] Comment on above: Order Comment: Speci men Type: VENOUS BLOOD SPECIMENOrdering Facility: [facility] Address: [address] [place] [address] Performed By: #### 2 4344-4 ####[facility] LABCLIA [id number] [place] [address] [place] Calcium.ionized adjusted to pH 7.4 (BldA) [Moles/Vol] 1.05 mmol/L Low 1.08-1.30 [facility] Comment on above: Order Comment: Speci men Type: VENOUS BLOOD SPECIMENOrdering Facility: [facility] Address: [address] [place] [address] Performed By: #### 2 4344-4 ####[facility] LABCLIA [id number] [place] [address] [place] Carboxyhemoglobin (BldV) [Mass fraction] 1.3 % Normal 0.0-2.0 [facility] Comment on above: Order Comment: Speci men Type: VENOUS BLOOD SPECIMENOrdering Facility: [facility] Address: [address] [place] [address] Result Comment: Carb oxyhemoglobin Reference Range for Smokers: 2.0-8.0% Performed By: #### 2 4344-4 ####[facility] LABCLIA [id number] [place] [address] [place] CO2 (BldV) [Partial pressure] 60 mm[Hg] High 42-55 [facility] Comment on above: Order Comment: Speci men Type: VENOUS BLOOD SPECIMENOrdering Facility: [facility] Address: [address] [place] [address] Performed By: #### 2 4344-4 ####[facility] LABCLIA [id number] [place] [address] [place] CO2 adjusted to patient's actual temperature (BldV) [Partial pressure] 61 mmHg High 42-55 [facility] Comment on above: Order Comment: Speci men Type: VENOUS BLOOD SPECIMENOrdering Facility: [facility] Address: [address] [place] [address] Performed By: #### 2 4344-4 ####[facility] LABCLIA [id number] [place] [address] [place] Glucose [Mass/Vol] 386 mg/dL High 60-105 [facility] Comment on above: Order Comment: Speci men Type: VENOUS BLOOD SPECIMENOrdering Facility: [facility] Address: [address] [place] [address] Performed By: #### 2 4344-4 ####[facility] LABCLIA [id number] [place] [address] [place] HCO3 (Bld) [Moles/Vol] 30 mmol/L High 24-28 [facility] Comment on above: Order Comment: Speci men Type: VENOUS BLOOD SPECIMENOrdering Facility: [facility] Address: [address] [place] [address] Performed By: #### 2 4344-4 ####[facility] LABCLIA [id number] [place] [address] [place] Hematocrit (Bld) [Volume fraction] 26.7 % Low 36.0-46.0 [facility] Comment on above: Order Comment: Speci men Type: VENOUS BLOOD SPECIMENOrdering Facility: [facility] Address: [address] [place] [address] Performed By: #### 2 4344-4 ####[facility] LABCLIA [id number] [place] [id number] [place] Hemoglobin (Bld) [Mass/Vol] 8.6 g/dL Low 11.5-15.5 [facility] Comment on above: Order Comment: Speci men Type: VENOUS BLOOD SPECIMENOrdering Facility: [facility] Address: [address] [place] [address] Performed By: #### 2 4344-4 ####[facility] LABCLIA [id number] [address] [address] [place] Lactate [Moles/Vol] 1.1 mmol/L Normal 0.5-2.2 [facility] Comment on above: Order Comment: Speci men Type: VENOUS BLOOD SPECIMENOrdering Facility: [facility] Address: [address] [place] [address] Performed By: #### 2 4344-4 ####[facility] LABCLIA [id number] [place] [address] [place] LITERS 4 Liters/min Normal [facility] Comment on above: Order Comment: Speci men Type: VENOUS BLOOD SPECIMENOrdering Facility: [facility] Address: [address] [place] [address] Performed By: #### 2 4344-4 ####[facility] LABCLIA [id number] [place] [address] [place] Methemoglobin (Bld) [Mass fraction] 1.8 % High 0.0-1.5 [facility] Comment on above: Order Comment: Speci men Type: VENOUS BLOOD SPECIMENOrdering Facility: [facility] Address: [address] [place], [place] [address] Performed By: #### 2 4344-4 ####[facility] LABIA [id number] [place] [address] [place] O2 THERAPY NC = Nasal Cannula Normal [facility] Comment on above: Order Comment: Speci men Type: VENOUS BLOOD SPECIMENOrdering Facility: [facility] Address: [address] [place], [place] [address] Performed By: #### 2 4344-4 ####[facility] LABCLIA [id number] [place] [address] [place] Oxygen (BldV) [Partial pressure] 40 mm[Hg] Normal 35-45 [facility] Comment on above: Order Comment: Speci men Type: VENOUS BLOOD SPECIMENOrdering Facility: [facility] Address: [address] [place] [id number] Performed By: #### 2 4344-4 ####[facility] LABCLIA [id number] [address] [address] [place] Oxygen adjusted to patient's actual temperature (BldV) [Partial pressure] 41 mmHg Normal 35-45 [facility] Comment on above: Order Comment: Speci men Type: VENOUS BLOOD SPECIMENOrdering Facility: [facility] Address: [address] [place], [place] [address] Performed By: #### 2 4344-4 ####[facility] LABCLIA [id number] [place] [address] [place] Oxygen saturation in Venous blood 69 % Normal 60-85 [facility] Comment on above: Order Comment: Speci men Type: VENOUS BLOOD SPECIMENOrdering Facility: [facility] Address: [address] [place] [address] Performed By: #### 2 4344-4 ####[facility] LABCLIA [id number] [place] [address] [place] Oxyhemoglobin (BldV) [Mass fraction] 67 % Normal 60-85 [facility] Comment on above: Order Comment: Speci men Type: VENOUS BLOOD SPECIMENOrdering Facility: [facility] Address: [address] [place] [id number] Performed By: #### 2 4344-4 ####[facility] LABCLIA [id number] [address] [address] [place] pH (BldV) 7.32 [pH] Normal 7.32-7.42 [facility] Comment on above: Order Comment: Speci men Type: VENOUS BLOOD SPECIMENOrdering Facility: [facility] Address: [address] [place], [place] [address] Performed By: #### 2 4344-4 ####[facility] LABCLIA [id number] [place] [address] [place] pH adjusted to patient's actual temperature (BldV) 7.31 Low 7.32-7.42 [facility] Comment on above: Order Comment: Speci men Type: VENOUS BLOOD SPECIMENOrdering Facility: [facility] Address: [address] [place] [address] Performed By: #### 2 4344-4 ####[facility] LABCLIA [id number] [place] [address] [place] Potassium [Moles/Vol] 3.4 mmol/L Low 3.5-5.[address] [facility] Comment on above: Order Comment: Speci men Type: VENOUS BLOOD SPECIMENOrdering Facility: [facility] Address: [address] [place] [address] Performed By: #### 2 4344-4 ####[facility] LABIA [id number] [place] [address] [place] Sodium [Moles/Vol] 139 mmol/L Normal 136-144 [facility] Comment on above: Order Comment: Speci men Type: VENOUS BLOOD SPECIMENOrdering Facility: [facility] Address: [address] [place] [address] Performed By: #### 2 4344-4 ####[facility] LABCLIA [id number] [place] [address] [place] Magnesium SerPl-mCncon 11-04 Magnesium [Mass/Vol] 2.2 mg/dL Normal 1.7-2.3 [facility] Comment on above: Order Comment: Speci men Type: BLOOD SPECIMENOrdering Facility: [facility] Address: [address] [place] [address] Performed By: #### 2 4323-8, 93177-9 ####[facility] LABCLIA [id number] [place] [address] [place] NUTRITIONon 11-05-2023 NUTRITION Normal [facility] XR CHEST 1V FRONTALon 2023 XR CHEST 1V FRONTAL Normal [facility] ARTERIAL BLOOD GASESon 11-03 Base excess Calc (Bld) [Moles/Vol] 4 mmol/L High 0-2 [facility] Comment on above: Order Comment: Speci men Type: ARTERIAL BLOOD SPECIMENOrdering Facility: [facility] Address: [address] [place] [address] Performed By: #### A LLBG ####[facility] LABIA [id number] [place] [address] [place] Body temperature 98.6 [degF] Normal [facility] Comment on above: Order Comment: Speci men Type: ARTERIAL BLOOD SPECIMENOrdering Facility: [facility] Address: [address] [place] [address] Performed By: #### A LLBG ####[facility] LABIA [id number] [place] [address] [place] Calcium.ionized (Bld) [Mass/Vol] 1.23 mmol/L Normal 1.08-1.30 [facility] Comment on above: Order Comment: Speci men Type: ARTERIAL BLOOD SPECIMENOrdering Facility: [facility] Address: [address] [place] [address] Performed By: #### A LLBG ####[facility] LABIA [id number] [place] [address] [place] Calcium.ionized adjusted to pH 7.4 (BldA) [Moles/Vol] 1.23 mmol/L Normal 1.08-1.30 [facility] Comment on above: Order Comment: Speci men Type: ARTERIAL BLOOD SPECIMENOrdering Facility: [facility] Address: [address] [place] [address] Performed By: #### A LLBG ####[facility] LABIA [id number] [place] [address] [place] Carboxyhemoglobin (BldA) [Mass fraction] 1.4 % Normal 0.0-2.0 [facility] Comment on above: Order Comment: Speci men Type: ARTERIAL BLOOD SPECIMENOrdering Facility: [facility] Address: [address] [place] [address] Result Comment: Carb oxyhemoglobin Reference Range for Smokers: 2.0-8.0% Performed By: #### A LLBG ####[facility] LABCLIA [id number] [place] [address] [place] CO2 (Bld) [Partial pressure] 48 mm Hg High 36-46 [facility] Comment on above: Order Comment: Speci men Type: ARTERIAL BLOOD SPECIMENOrdering Facility: [facility] Address: [address] [place] [address] Performed By: #### A LLBG ####[facility] LABCLIA [id number] [place] [address] [place] Glucose [Mass/Vol] 183 mg/dL High 60-105 [facility] Comment on above: Order Comment: Speci men Type: ARTERIAL BLOOD SPECIMENOrdering Facility: [facility] Address: [address] [place] [address] Performed By: #### A LLBG ####[facility] LABCLIA [id number] [place] [address] [place] HCO3 (Bld) [Moles/Vol] 28 mmol/L High 22-26 [facility] Comment on above: Order Comment: Speci men Type: ARTERIAL BLOOD SPECIMENOrdering Facility: [facility] Address: [address] [place] [address] Performed By: #### A LLBG ####[facility] LABCLIA [id number] [place] [address] [place] Hematocrit (Bld) [Volume fraction] 28.1 % Low 36.0-46.0 [facility] Comment on above: Order Comment: Speci men Type: ARTERIAL BLOOD SPECIMENOrdering Facility: [facility] Address: [address] [place] [address] Performed By: #### A LLBG ####[facility] LABCLIA [id number] [place] [address] [place] Hemoglobin (Bld) [Mass/Vol] 9.0 g/dL Low 11.5-15.5 [facility] Comment on above: Order Comment: Speci men Type: ARTERIAL BLOOD SPECIMENOrdering Facility: [facility] Address: [address] [place] [address] Performed By: #### A LLBG ####[facility] LABCLIA [id number] [place] [address] [place] Lactate [Moles/Vol] 1.1 mmol/L Normal 0.5-2.2 [facility] Comment on above: Order Comment: Speci men Type: ARTERIAL BLOOD SPECIMENOrdering Facility: [facility] Address: [address] [place] [address] Performed By: #### A LLBG ####[facility] LABCLIA [id number] [place] [address] [place] LITERS 5 Liters/min Normal [facility] Comment on above: Order Comment: Speci men Type: ARTERIAL BLOOD SPECIMENOrdering Facility: [facility] Address: [address] [place] [address] Performed By: #### A LLBG ####[facility] LABCLIA [id number] [place] [address] [place] Methemoglobin (Bld) [Mass fraction] 1.6 % High 0.0-1.5 [facility] Comment on above: Order Comment: Speci men Type: ARTERIAL BLOOD SPECIMENOrdering Facility: [facility] Address: [address] [place] [address] Performed By: #### A LLBG ####[facility] LABCLIA [id number] [place] [id number] [place] O2 THERAPY NC = Nasal Cannula Normal [facility] Comment on above: Order Comment: Speci men Type: ARTERIAL BLOOD SPECIMENOrdering Facility: [facility] Address: [address] [place] [address] Performed By: #### A LLBG ####[facility] LABCLIA [id number] [place] [address] [place] Oxygen (Bld) [Partial pressure] 114 mm Hg High 85-95 [facility] Comment on above: Order Comment: Speci men Type: ARTERIAL BLOOD SPECIMENOrdering Facility: [facility] Address: [address] [place] [address] Performed By: #### A LLBG ####[facility] LABCLIA [id number] [place] [address] [place] Oxyhemoglobin (BldA) [Mass fraction] 95 % Normal 95-98 [facility] Comment on above: Order Comment: Speci men Type: ARTERIAL BLOOD SPECIMENOrdering Facility: [facility] Address: [address] [place] [address] Performed By: #### A LLBG ####[facility] LABCLIA [id number] [place] [address] [place] pH (Bld) 7.39 [pH] Normal 7.35-7.45 [facility] Comment on above: Order Comment: Speci men Type: ARTERIAL BLOOD SPECIMENOrdering Facility: [facility] Address: [address] [place] [address] Performed By: #### A LLBG ####[facility] LABIA [id number] [place] [address] [place] Potassium [Moles/Vol] 3.8 mmol/L Normal 3.5-5.[address] [facility] Comment on above: Order Comment: Speci men Type: ARTERIAL BLOOD SPECIMENOrdering Facility: [facility] Address: [address] [place] [address] Performed By: #### A LLBG ####[facility] LABCLIA [id number] [place] [address] [place] Sodium [Moles/Vol] 143 mmol/L Normal 136-144 [facility] Comment on above: Order Comment: Speci men Type: ARTERIAL BLOOD SPECIMENOrdering Facility: [facility] Address: [address] [place] [address] Performed By: #### A LLBG ####[facility] LABCLIA [id number] [place] [address] [place] Base excess Calc (Bld) [Moles/Vol] 3 mmol/L High 0-2 [facility] Comment on above: Order Comment: Speci men Type: ARTERIAL BLOOD SPECIMENOrdering Facility: [facility] Address: [address] [place] [address] Performed By: #### A LLBG ####[facility] LABIA [id number] [place] [address] [place] Body temperature 98.6 [degF] Normal [facility] Comment on above: Order Comment: Speci men Type: ARTERIAL BLOOD SPECIMENOrdering Facility: [facility] Address: [address] [place] [address] Performed By: #### A LLBG ####[facility] LABIA [id number] [place] [address] [place] Calcium.ionized (Bld) [Mass/Vol] 1.23 mmol/L Normal 1.08-1.30 [facility] Comment on above: Order Comment: Speci men Type: ARTERIAL BLOOD SPECIMENOrdering Facility: [facility] Address: [address] [place] [address] Performed By: #### A LLBG ####[facility] LABCLIA [id number] [place] [address] [place] Calcium.ionized adjusted to pH 7.4 (BldA) [Moles/Vol] 1.23 mmol/L Normal 1.08-1.30 [facility] Comment on above: Order Comment: Speci men Type: ARTERIAL BLOOD SPECIMENOrdering Facility: [facility] Address: [address] [place] [address] Performed By: #### A LLBG ####[facility] LABCLIA [id number] [place] [address] [place] Carboxyhemoglobin (BldA) [Mass fraction] 1.7 % Normal 0.0-2.0 [facility] Comment on above: Order Comment: Speci men Type: ARTERIAL BLOOD SPECIMENOrdering Facility: [facility] Address: [address] [place] [address] Result Comment: Carb oxyhemoglobin Reference Range for Smokers: 2.0-8.0% Performed By: #### A LLBG ####[facility] LABCLIA [id number] [place] [address] [place] CO2 (Bld) [Partial pressure] 45 mm Hg Normal 36-46 [facility] Comment on above: Order Comment: Speci men Type: ARTERIAL BLOOD SPECIMENOrdering Facility: [facility] Address: [address] [place] [address] Performed By: #### A LLBG ####[facility] LABCLIA [id number] [place] [address] [place] Glucose [Mass/Vol] 214 mg/dL High 60-105 [facility] Comment on above: Order Comment: Speci men Type: ARTERIAL BLOOD SPECIMENOrdering Facility: [facility] Address: [address] [place] [address] Performed By: #### A LLBG ####[facility] LABCLIA [id number] [place] [address] [place] HCO3 (Bld) [Moles/Vol] 27 mmol/L High 22-26 [facility] Comment on above: Order Comment: Speci men Type: ARTERIAL BLOOD SPECIMENOrdering Facility: [facility] Address: [address] [place] [address] Performed By: #### A LLBG ####[facility] LABCLIA [id number] [place] [address] [place] Hematocrit (Bld) [Volume fraction] 33.7 % Low 36.0-46.0 [facility] Comment on above: Order Comment: Speci men Type: ARTERIAL BLOOD SPECIMENOrdering Facility: [facility] Address: [address] [place] [address] Performed By: #### A LLBG ####[facility] LABCLIA [id number] [place] [address] [place] Hemoglobin (Bld) [Mass/Vol] 10.9 g/dL Low 11.5-15.5 [facility] Comment on above: Order Comment: Speci men Type: ARTERIAL BLOOD SPECIMENOrdering Facility: [facility] Address: [address] [place] [address] Performed By: #### A LLBG ####[facility] LABCLIA [id number] [place] [address] [place] Lactate [Moles/Vol] 1.3 mmol/L Normal 0.5-2.2 [facility] Comment on above: Order Comment: Speci men Type: ARTERIAL BLOOD SPECIMENOrdering Facility: [facility] Address: [address] [place] [address] Performed By: #### A LLBG ####[facility] LABCLIA [id number] [place] [address] [place] Methemoglobin (Bld) [Mass fraction] 1.3 % Normal 0.0-1.5 [facility] Comment on above: Order Comment: Speci men Type: ARTERIAL BLOOD SPECIMENOrdering Facility: [facility] Address: [address] [place] [address] Performed By: #### A LLBG ####[facility] LABCLIA [id number] [place] [id number] [place] O2 THERAPY Positive Normal [facility] Comment on above: Order Comment: Speci men Type: ARTERIAL BLOOD SPECIMENOrdering Facility: [facility] Address: [address] [place], [place] [id number] Performed By: #### A LLBG ####[facility] LABCLIA [id number] [place] [address] [place] Oxygen (Bld) [Partial pressure] 103 mm Hg High 85-95 [facility] Comment on above: Order Comment: Speci men Type: ARTERIAL BLOOD SPECIMENOrdering Facility: [facility] Address: [address] [place] [address] Performed By: #### A LLBG ####[facility] LABCLIA [id number] [place] [address] [place] Oxyhemoglobin (BldA) [Mass fraction] 95 % Normal 95-98 [facility] Comment on above: Order Comment: Speci men Type: ARTERIAL BLOOD SPECIMENOrdering Facility: [facility] Address: [address] [place] [address] Performed By: #### A LLBG ####[facility] LABCLIA [id number] [place] [address] [place] pH (Bld) 7.40 [pH] Normal 7.35-7.45 [facility] Comment on above: Order Comment: Speci men Type: ARTERIAL BLOOD SPECIMENOrdering Facility: [facility] Address: [address] [place] [address] Performed By: #### A LLBG ####[facility] LABCLIA [id number] [place] [address] [place] Potassium [Moles/Vol] 3.9 mmol/L Normal 3.5-5.[address] [facility] Comment on above: Order Comment: Speci men Type: ARTERIAL BLOOD SPECIMENOrdering Facility: [facility] Address: [address] [place] [address] Performed By: #### A LLBG ####[facility] LABCLIA [id number] [place] [address] [place] Sodium [Moles/Vol] 141 mmol/L Normal 136-144 [facility] Comment on above: Order Comment: Speci men Type: ARTERIAL BLOOD SPECIMENOrdering Facility: [facility] Address: [address] [place] [address] Performed By: #### A LLBG ####[facility] LABCLIA [id number] [place] [address] [place] Base excess Calc (Bld) [Moles/Vol] 2 mmol/L Normal 0-2 [facility] Comment on above: Order Comment: Speci men Type: ARTERIAL BLOOD SPECIMENOrdering Facility: [facility] Address: [address] [place] [address] Performed By: #### A LLBG ####[facility] LABCLIA [id number] [place] [address] [place] Body temperature 98.6 [degF] Normal [facility] Comment on above: Order Comment: Speci men Type: ARTERIAL BLOOD SPECIMENOrdering Facility: [facility] Address: [address] [place] [address] Performed By: #### A LLBG ####[facility] LABIA [id number] [place] [address] [place] Calcium.ionized (Bld) [Mass/Vol] 1.20 mmol/L Normal 1.08-1.30 [facility] Comment on above: Order Comment: Speci men Type: ARTERIAL BLOOD SPECIMENOrdering Facility: [facility] Address: [address] [place] [address] Performed By: #### A LLBG ####[facility]IA [id number] [place] [address] [place] Calcium.ionized adjusted to pH 7.4 (BldA) [Moles/Vol] 1.19 mmol/L Normal 1.08-1.30 [facility] Comment on above: Order Comment: Speci men Type: ARTERIAL BLOOD SPECIMENOrdering Facility: [facility] Address: [address] [place] [address] Performed By: #### A LLBG ####[facility] LABCLIA [id number] [place] [address] [place] Carboxyhemoglobin (BldA) [Mass fraction] 1.7 % Normal 0.0-2.0 [facility] Comment on above: Order Comment: Speci men Type: ARTERIAL BLOOD SPECIMENOrdering Facility: [facility] Address: [address] [place] [address] Result Comment: Carb oxyhemoglobin Reference Range for Smokers: 2.0-8.0% Performed By: #### A LLBG ####[facility] LABCLIA [id number] [place] [address] [place] CO2 (Bld) [Partial pressure] 45 mm Hg Normal 36-46 [facility] Comment on above: Order Comment: Speci men Type: ARTERIAL BLOOD SPECIMENOrdering Facility: [facility] Address: [address] [place] [address] Performed By: #### A LLBG ####[facility] LABCLIA [id number] [place] [address] [place] Glucose [Mass/Vol] 227 mg/dL High 60-105 [facility] Comment on above: Order Comment: Speci men Type: ARTERIAL BLOOD SPECIMENOrdering Facility: [facility] Address: [address] [place] [address] Performed By: #### A LLBG ####[facility] LABCLIA [id number] [place] [address] [place] HCO3 (Bld) [Moles/Vol] 26 mmol/L Normal 22-26 [facility] Comment on above: Order Comment: Speci men Type: ARTERIAL BLOOD SPECIMENOrdering Facility: [facility] Address: [address] [place] [address] Performed By: #### A LLBG ####[facility] LABCLIA [id number] [place] [address] [place] Hematocrit (Bld) [Volume fraction] 28.0 % Low 36.0-46.0 [facility] Comment on above: Order Comment: Speci men Type: ARTERIAL BLOOD SPECIMENOrdering Facility: [facility] Address: [address] [place] [address] Performed By: #### A LLBG ####[facility] LABCLIA [id number] [place] [address] [place] Hemoglobin (Bld) [Mass/Vol] 9.0 g/dL Low 11.5-15.5 [facility] Comment on above: Order Comment: Speci men Type: ARTERIAL BLOOD SPECIMENOrdering Facility: [facility] Address: [address] [place] [address] Performed By: #### A LLBG ####[facility] LABCLIA [id number] [place] [address] [place] Lactate [Moles/Vol] 1.4 mmol/L Normal 0.5-2.2 [facility] Comment on above: Order Comment: Speci men Type: ARTERIAL BLOOD SPECIMENOrdering Facility: [facility] Address: [address] [place] [address] Performed By: #### A LLBG ####[facility] LABCLIA [id number] [place] [address] [place] Methemoglobin (Bld) [Mass fraction] 0.6 % Normal 0.0-1.5 [facility] Comment on above: Order Comment: Speci men Type: ARTERIAL BLOOD SPECIMENOrdering Facility: [facility] Address: [address] [place] [address] Performed By: #### A LLBG ####[facility] LABCLIA [id number] [place] [id number] [place] O2 THERAPY Positive Normal [facility] Comment on above: Order Comment: Speci men Type: ARTERIAL BLOOD SPECIMENOrdering Facility: [facility] Address: [address] [place], [place] [address] Performed By: #### A LLBG ####[facility] LABCLIA [id number] [place] [address] [place] Oxygen (Bld) [Partial pressure] 91 mm Hg Normal 85-95 [facility] Comment on above: Order Comment: Speci men Type: ARTERIAL BLOOD SPECIMENOrdering Facility: [facility] Address: [address] [place], [place] [address] Performed By: #### A LLBG ####[facility] LABCLIA [id number] [place] [address] [place] Oxyhemoglobin (BldA) [Mass fraction] 95 % Normal 95-98 [facility] Comment on above: Order Comment: Speci men Type: ARTERIAL BLOOD SPECIMENOrdering Facility: [facility] Address: [address] [place] [address] Performed By: #### A LLBG ####[facility] LABCLIA [id number] [place] [id number] [place] pH (Bld) 7.39 [pH] Normal 7.35-7.45 [facility] Comment on above: Order Comment: Speci men Type: ARTERIAL BLOOD SPECIMENOrdering Facility: [facility] Address: [address] [place] [address] Performed By: #### A LLBG ####[facility] LABCLIA [id number] [place] [id number] [place] Potassium [Moles/Vol] 4.0 mmol/L Normal 3.5-5.[address] [facility] Comment on above: Order Comment: Speci men Type: ARTERIAL BLOOD SPECIMENOrdering Facility: [facility] Address: [address] [place] [address] Performed By: #### A LLBG ####[facility] LABCLIA [id number] [place] [address] [place] Sodium [Moles/Vol] 142 mmol/L Normal 136-144 [facility] Comment on above: Order Comment: Speci men Type: ARTERIAL BLOOD SPECIMENOrdering Facility: [facility] Address: [address] [place] [address] Performed By: #### A LLBG ####[facility] LABCLIA [id number] [place] [address] [place] CBC panel Auto (Bld)on 11-03 Erythrocyte distribution width (RBC) [Ratio] 14.6 % Normal 11.5-15.0 [facility] Comment on above: Order Comment: Speci men Type: BLOOD SPECIMENOrdering Facility: [facility] Address: [address] [place] [address] Performed By: #### 5 8410-2 ####[facility] LABIA [id number] [place] [address] [place] Hematocrit (Bld) [Volume fraction] 28.9 % Low 36.0-46.0 [facility] Comment on above: Order Comment: Speci men Type: BLOOD SPECIMENOrdering Facility: [facility] Address: [address] [place] [address] Performed By: #### 5 8410-2 ####[facility] LABIA [id number] [place] [address] [place] Hemoglobin (Bld) [Mass/Vol] 8.9 g/dL Low 11.5-15.5 [facility] Comment on above: Order Comment: Speci men Type: BLOOD SPECIMENOrdering Facility: [facility] Address: [address] [place] [address] Performed By: #### 5 8410-2 ####[facility] LABCLIA [id number] [place] [address] [place] MCH (RBC) [Entitic mass] 31.9 pg Normal 26.0-34.0 [facility] Comment on above: Order Comment: Speci men Type: BLOOD SPECIMENOrdering Facility: [facility] Address: [address] [place] [address] Performed By: #### 5 8410-2 ####[facility] [id number] [place] [address] [place] MCHC (RBC) [Mass/Vol] 30.8 g/dL Normal 30.5-36.[address] [facility] Comment on above: Order Comment: Speci men Type: BLOOD SPECIMENOrdering Facility: [facility] Address: [address] [place] [address] Performed By: #### 5 8410-2 ####[facility] [id number] [place] [address] [place] MCV (RBC) [Entitic vol] 103.6 fL High 80.0-100.0 [facility] Comment on above: Order Comment: Speci men Type: BLOOD SPECIMENOrdering Facility: [facility] Address: [address] [place] [address] Performed By: #### 5 8410-2 ####[facility] [id number] [place] [address] [place] Nucleated RBC (Bld) [#/Vol] 10*3/uL Normal <0.01 [facility] Comment on above: Order Comment: Speci men Type: BLOOD SPECIMENOrdering Facility: [facility] Address: [address] [place] [address] Performed By: #### 5 8410-2 ####[facility] [id number] [place] [address] [place] Platelet mean volume (Bld) [Entitic vol] 9.5 fL Normal 9.0-12.7 [facility] Comment on above: Order Comment: Speci men Type: BLOOD SPECIMENOrdering Facility: [facility] Address: [address] [place] [address] Performed By: #### 5 8410-2 ####[facility] LABCLIA [id number] [place] [address] [place] Platelets (Bld) [#/Vol] 303 10*3/uL Normal 150-400 [facility] Comment on above: Order Comment: Speci men Type: BLOOD SPECIMENOrdering Facility: [facility] Address: [address] [place] [address] Performed By: #### 5 8410-2 ####[facility] LABCLIA [id number] [place] [address] [place] RBC (Bld) [#/Vol] 2.79 10*6/uL Low 3.90-5.20 [facility] Comment on above: Order Comment: Speci men Type: BLOOD SPECIMENOrdering Facility: [facility] Address: [address] [place] [address] Performed By: #### 5 8410-2 ####[facility] LABIA [id number] [place] [address] [place] WBC (Bld) [#/Vol] 8.27 10*3/uL Normal 3.70-11.00 [facility] Comment on above: Order Comment: Speci men Type: BLOOD SPECIMENOrdering Facility: [facility] Address: [address] [place] [address] Performed By: #### 5 8410-2 ####[facility] LABIA [id number] [place] [address] [place] CNPNon 11-04-2023 CNPN Normal [facility] CONSULT PROGon 11-04-2023 CONSULT PROG Normal [facility] Comprehensive metabolic 2000 panelon 11-04-2023 Albumin [Mass/Vol] 3.4 g/dL Low 3.9-4.9 [facility] Comment on above: Order Comment: Speci men Type: BLOOD SPECIMENOrdering Facility: [facility] Address: [address] [place] [id number] Performed By: #### 2 4323-8, ####[facility] LABCLIA [id number] [facility] [place] [address] [place] ALP [Catalytic activity/Vol] 60 U/L Normal 34-123 [facility] Comment on above: Order Comment: Speci men Type: BLOOD SPECIMENOrdering Facility: [facility] Address: [address] [place] [address] Performed By: #### 2 4323-8, ####[facility] LABCLIA [id number] [place] [address] [place] ALT [Catalytic activity/Vol] 23 U/L Normal 7-38 [facility] Comment on above: Order Comment: Speci men Type: BLOOD SPECIMENOrdering Facility: [facility] Address: [address] [place] [address] Performed By: #### 2 4323-8, ####[facility] LABCLIA [id number] [place] [address] [place] Anion gap [Moles/Vol] 15 mmol/L Normal 8-[address] [facility] Comment on above: Order Comment: Speci men Type: BLOOD SPECIMENOrdering Facility: [facility] Address: [address] [place] [address] Performed By: #### 2 4323-8, ####[facility] LABCLIA [id number] [place] [address] [place] AST [Catalytic activity/Vol] 18 U/L Normal 13-35 [facility] Comment on above: Order Comment: Speci men Type: BLOOD SPECIMENOrdering Facility: [facility] Address: [address] [place] [address] Performed By: #### 2 4323-8, ####[facility] LABCLIA [id number] [address] [address] [place] Bilirubin [Mass/Vol] 0.6 mg/dL Normal 0.2-1.3 [facility] Comment on above: Order Comment: Speci men Type: BLOOD SPECIMENOrdering Facility: [facility] Address: [address] [place] [address] Performed By: #### 2 432-8, ####[facility] LABCLIA [id number] [place] [address] [place] Calcium [Mass/Vol] 9.2 mg/dL Normal 8.5-10.2 [facility] Comment on above: Order Comment: Speci men Type: BLOOD SPECIMENOrdering Facility: [facility] Address: [address] [place] [address] Performed By: #### 2 4328, ####[facility] LABCLIA [id number] [place] [address] [place] Chloride [Moles/Vol] 103 mmol/L Normal 98-107 [facility] Comment on above: Order Comment: Speci men Type: BLOOD SPECIMENOrdering Facility: [facility] Address: [address] [place], [place] [address] Performed By: #### 2 4328, ####[facility] LABCLIA [id number] [address] [address] [place] CO2 [Moles/Vol] 25 mmol/L Normal 22-30 [facility] Comment on above: Order Comment: Speci men Type: BLOOD SPECIMENOrdering Facility: [facility] Address: [address] [place], [place] [address] Performed By: #### 2 4323-8, ####[facility] LABCLIA [id number] [place] [address] [place] Creatinine [Mass/Vol] 1.14 mg/dL High 0.58-0.[address] [facility] Comment on above: Order Comment: Ernie billy Type: BLOOD SPECIMENOrdering Facility: [facility] Address: [address] [place] [address] Performed By: #### 2 4323-8, ####[facility] [id number] [place] [address] [place] Creatinine and Glomerular filtration rate.predicted panel (S/P/Bld) 54 mL/min/1.73m??? Low >=60 [facility] Comment on above: Order Comment: Ernie billy Type: BLOOD SPECIMENOrdering Facility: [facility] Address: [address] [place] [address] Result Comment: Malorie mated Glomerular Filtration Rate (eGFR) is calculated using the 2020 CKD-EPI creatinine equation. This equation utilizes serum creatinine, sex, and age as parameters. The creatinine assay has traceable calibration to isotope dilution-mass spectrometry. Refer to KDIGO guidelines for clinical interpretation. In patients with unstable renal function, e.g. those with acute kidney injury, the eGFR may not accurately reflect actual GFR. Performed By: #### 2 4323-8, ####[facility] [id number] [place] [address] [place] Glucose [Mass/Vol] 199 mg/dL High 74-99 [facility] Comment on above: Order Comment: Ernie wenceslao Type: BLOOD SPECIMENOrdering Facility: [facility] Address: [address] [place] [address] Result Comment: The [place] [employer] (ADA) provides guidance for cutoff values for fasting glucose and random glucose. The ADA defines fasting as no caloric intake for at least 8 hours. Fasting plasma glucose results between 100 to 125 mg/dL indicate increased risk for diabetes (prediabetes).Fasting plasma glucose results greater than or equal to 126 mg/dL meet the criteria for diagnosis of diabetes. In the absence of unequivocal hyperglycemia, results should be confirmed by repeat testing. In a patient with classic symptoms of hyperglycemia or hyperglycemic crisis, random plasma glucose results greater than or equal to 200 mg/dL meet the criteria for diagnosis of diabetes.Reference: Standards of Medical Care in Diabetes 2016, [place] [employer]. Diabetes Care. 2016.39(Suppl 1). Performed By: #### 2 4328, ####[facility] LABCLIA [id number] [place] [address] [place] Potassium [Moles/Vol] 4.1 mmol/L Normal 3.7-5.[address] [facility] Comment on above: Order Comment: Speci men Type: BLOOD SPECIMENOrdering Facility: [facility] Address: [address] [place] [address] Performed By: #### 2 43207-07, ####[facility] LABCLIA [id number] [place] [address] [place] Protein [Mass/Vol] 6.2 g/dL Low 6.3-8.0 [facility] Comment on above: Order Comment: Speci men Type: BLOOD SPECIMENOrdering Facility: [facility] Address: [address] [place] [address] Performed By: #### 2 4322-11, ####[facility] LABCLIA [id number] [place] [address] [place] Sodium [Moles/Vol] 143 mmol/L Normal 136-144 [facility] Comment on above: Order Comment: Speci men Type: BLOOD SPECIMENOrdering Facility: [facility] Address: [address] [place] [address] Performed By: #### 2 4322-11, ####[facility] LABCLIA [id number] [address] [address] [place] Urea nitrogen [Mass/Vol] 34 mg/dL High 7-21 [facility] Comment on above: Order Comment: Speci men Type: BLOOD SPECIMENOrdering Facility: [facility] Address: [address] [place] [address] Performed By: #### 2 4323-8, 54551-6 ####[facility] LABCLIA [id number] [place] [address] [place] Magnesium SerPl-mCncon 11-03 Magnesium [Mass/Vol] 2.5 mg/dL High 1.7-2.3 [facility] Comment on above: Order Comment: Speci men Type: BLOOD SPECIMENOrdering Facility: [facility] Address: [address] [place] [address] Performed By: #### 2 4323-8, 69144-6 ####[facility] LABIA [id number] [place] [address] [place] POTASSIUMon 11-04-2023 Potassium [Moles/Vol] 3.6 mmol/L Low 3.7-5.[address] [facility] Comment on above: Order Comment: Speci men Type: BLOOD SPECIMENOrdering Facility: [facility] Address: [address] [place] [address] Performed By: #### K 1 ####[facility] LABIA [id number] [place] [address] [place] XR CHEST 1V FRONTALon 2023 XR CHEST 1V FRONTAL Normal [facility] ARTERIAL BLOOD GASESon 11-02 Base excess Calc (Bld) [Moles/Vol] 1 mmol/L Normal 0-2 [facility] Comment on above: Order Comment: Speci men Type: ARTERIAL BLOOD SPECIMENOrdering Facility: [facility] Address: [address] [place] [address] Performed By: #### A LLBG ####[facility] LABCLIA [id number] [place] [address] [place] Body temperature 98.6 [degF] Normal [facility] Comment on above: Order Comment: Speci men Type: ARTERIAL BLOOD SPECIMENOrdering Facility: [facility] Address: [address] [place] [address] Performed By: #### A LLBG ####[facility] LABCLIA [id number] [place] [address] [place] Calcium.ionized (Bld) [Mass/Vol] 1.22 mmol/L Normal 1.08-1.30 [facility] Comment on above: Order Comment: Speci men Type: ARTERIAL BLOOD SPECIMENOrdering Facility: [facility] Address: [address] [place] [address] Performed By: #### A LLBG ####[facility] LABIA [id number] [place] [address] [place] Calcium.ionized adjusted to pH 7.4 (BldA) [Moles/Vol] 1.21 mmol/L Normal 1.08-1.30 [facility] Comment on above: Order Comment: Speci men Type: ARTERIAL BLOOD SPECIMENOrdering Facility: [facility] Address: [address] [place] [address] Performed By: #### A LLBG ####[facility] LABIA [id number] [place] [address] [place] Carboxyhemoglobin (BldA) [Mass fraction] 1.8 % Normal 0.0-2.0 [facility] Comment on above: Order Comment: Speci men Type: ARTERIAL BLOOD SPECIMENOrdering Facility: [facility] Address: [address] [place] [address] Result Comment: Carb oxyhemoglobin Reference Range for Smokers: 2.0-8.0% Performed By: #### A LLBG ####[facility] LABIA [id number] [place] [address] [place] CO2 (Bld) [Partial pressure] 45 mm Hg Normal 36-46 [facility] Comment on above: Order Comment: Speci men Type: ARTERIAL BLOOD SPECIMENOrdering Facility: [facility] Address: [address] [place] [address] Performed By: #### A LLBG ####[facility] LABCLIA [id number] [place] [address] [place] Glucose [Mass/Vol] 204 mg/dL High 60-105 [facility] Comment on above: Order Comment: Speci men Type: ARTERIAL BLOOD SPECIMENOrdering Facility: [facility] Address: [address] [place] [address] Performed By: #### A LLBG ####[facility] LABCLIA [id number] [place] [address] [place] HCO3 (Bld) [Moles/Vol] 26 mmol/L Normal 22-26 [facility] Comment on above: Order Comment: Speci men Type: ARTERIAL BLOOD SPECIMENOrdering Facility: [facility] Address: [address] [place] [address] Performed By: #### A LLBG ####[facility] LABCLIA [id number] [place] [address] [place] Hematocrit (Bld) [Volume fraction] 27.5 % Low 36.0-46.0 [facility] Comment on above: Order Comment: Speci men Type: ARTERIAL BLOOD SPECIMENOrdering Facility: [facility] Address: [address] [place] [address] Performed By: #### A LLBG ####[facility] LABCLIA [id number] [place] [address] [place] Hemoglobin (Bld) [Mass/Vol] 8.9 g/dL Low 11.5-15.5 [facility] Comment on above: Order Comment: Speci men Type: ARTERIAL BLOOD SPECIMENOrdering Facility: [facility] Address: [address] [place] [address] Performed By: #### A LLBG ####[facility] LABCLIA [id number] [place] [address] [place] Lactate [Moles/Vol] 1.5 mmol/L Normal 0.5-2.2 [facility] Comment on above: Order Comment: Speci men Type: ARTERIAL BLOOD SPECIMENOrdering Facility: [facility] Address: [address] [place] [address] Performed By: #### A LLBG ####[facility] LABCLIA [id number] [place] [address] [place] LITERS 6 Liters/min Normal [facility] Comment on above: Order Comment: Speci men Type: ARTERIAL BLOOD SPECIMENOrdering Facility: [facility] Address: [address] [place] [address] Performed By: #### A LLBG ####[facility] LABCLIA [id number] [place] [address] [place] Methemoglobin (Bld) [Mass fraction] 0.8 % Normal 0.0-1.5 [facility] Comment on above: Order Comment: Speci men Type: ARTERIAL BLOOD SPECIMENOrdering Facility: [facility] Address: [address] [place] [address] Performed By: #### A LLBG ####[facility] LABCLIA [id number] [place] [address] [place] O2 THERAPY NC = Nasal Cannula Normal [facility] Comment on above: Order Comment: Speci men Type: ARTERIAL BLOOD SPECIMENOrdering Facility: [facility] Address: [address] [place] [address] Performed By: #### A LLBG ####[facility] LABCLIA [id number] [place] [address] [place] Oxygen (Bld) [Partial pressure] 102 mm Hg High 85-95 [facility] Comment on above: Order Comment: Speci men Type: ARTERIAL BLOOD SPECIMENOrdering Facility: [facility] Address: [address], [place] [address] Performed By: #### A LLBG ####[facility] LABCLIA [id number] [place] [address] [place] Oxyhemoglobin (BldA) [Mass fraction] 96 % Normal 95-98 [facility] Comment on above: Order Comment: Speci men Type: ARTERIAL BLOOD SPECIMENOrdering Facility: [facility] Address: [address] [place] [address] Performed By: #### A LLBG ####[facility] LABIA [id number] [place] [address] [place] pH (Bld) 7.38 [pH] Normal 7.35-7.45 [facility] Comment on above: Order Comment: Speci men Type: ARTERIAL BLOOD SPECIMENOrdering Facility: [facility] Address: [address] [place] [address] Performed By: #### A LLBG ####[facility] [facility] [id number] [place] [address] [place] Potassium [Moles/Vol] 3.9 mmol/L Normal 3.5-5.[address] [facility] Comment on above: Order Comment: Speci men Type: ARTERIAL BLOOD SPECIMENOrdering Facility: [facility] Address: [address] [place] [address] Performed By: #### A LLBG ####[facility] [id number] [place] [address] [place] Sodium [Moles/Vol] 144 mmol/L Normal 136-144 [facility] Comment on above: Order Comment: Speci men Type: ARTERIAL BLOOD SPECIMENOrdering Facility: [facility] Address: [address] [place] [address] Performed By: #### A LLBG ####[facility] [id number] [place] [id number] [place] Base excess Calc (Bld) [Moles/Vol] 2 mmol/L Normal 0-2 [facility] Comment on above: Order Comment: Speci men Type: ARTERIAL BLOOD SPECIMENOrdering Facility: [facility] Address: [address] [place] [address] Performed By: #### A LLBG ####[facility] [id number] [place] [address] [place] Body temperature 98.6 [degF] Normal [facility] Comment on above: Order Comment: Speci men Type: ARTERIAL BLOOD SPECIMENOrdering Facility: [facility] Address: [address] [place] [address] Performed By: #### A LLBG ####[facility] [id number] [place] [address] [place] Calcium.ionized (Bld) [Mass/Vol] 1.24 mmol/L Normal 1.08-1.30 [facility] Comment on above: Order Comment: Speci men Type: ARTERIAL BLOOD SPECIMENOrdering Facility: [facility] Address: [address] [place] [address] Performed By: #### A LLBG ####[facility] [id number] [place] [address] [place] Calcium.ionized adjusted to pH 7.4 (BldA) [Moles/Vol] 1.24 mmol/L Normal 1.08-1.30 [facility] Comment on above: Order Comment: Speci men Type: ARTERIAL BLOOD SPECIMENOrdering Facility: [facility] Address: [address] [place] [address] Performed By: #### A LLBG ####[facility] [id number] [place] [address] [place] Carboxyhemoglobin (BldA) [Mass fraction] 1.7 % Normal 0.0-2.0 [facility] Comment on above: Order Comment: Speci men Type: ARTERIAL BLOOD SPECIMENOrdering Facility: [facility] Address: [address] [place] [address] Result Comment: Carb oxyhemoglobin Reference Range for Smokers: 2.0-8.0% Performed By: #### A LLBG ####[facility] LABCLIA [id number] [place] [address] [place] CO2 (Bld) [Partial pressure] 42 mm Hg Normal 36-46 [facility] Comment on above: Order Comment: Speci men Type: ARTERIAL BLOOD SPECIMENOrdering Facility: [facility] Address: [address] [place] [address] Performed By: #### A LLBG ####[facility] LABCLIA [id number] [place] [address] [place] Glucose [Mass/Vol] 177 mg/dL High 60-105 [facility] Comment on above: Order Comment: Speci men Type: ARTERIAL BLOOD SPECIMENOrdering Facility: [facility] Address: [address] [place] [address] Performed By: #### A LLBG ####[facility] LABCLIA [id number] [place] [address] [place] HCO3 (Bld) [Moles/Vol] 26 mmol/L Normal 22-26 [facility] Comment on above: Order Comment: Speci men Type: ARTERIAL BLOOD SPECIMENOrdering Facility: [facility] Address: [address] [place] [address] Performed By: #### A LLBG ####[facility] LABCLIA [id number] [place] [address] [place] Hematocrit (Bld) [Volume fraction] 29.4 % Low 36.0-46.0 [facility] Comment on above: Order Comment: Speci men Type: ARTERIAL BLOOD SPECIMENOrdering Facility: [facility] Address: [address] [place] [address] Performed By: #### A LLBG ####[facility] LABCLIA [id number] [id number] [address] [place] Hemoglobin (Bld) [Mass/Vol] 9.5 g/dL Low 11.5-15.5 [facility] Comment on above: Order Comment: Speci men Type: ARTERIAL BLOOD SPECIMENOrdering Facility: [facility] Address: [address] [place] [address] Performed By: #### A LLBG ####[facility] LABCLIA [id number] [place] [address] [place] Lactate [Moles/Vol] 1.4 mmol/L Normal 0.5-2.2 [facility] Comment on above: Order Comment: Speci men Type: ARTERIAL BLOOD SPECIMENOrdering Facility: [facility] Address: [address] [place] [address] Performed By: #### A LLBG ####[facility] LABCLIA [id number] [place] [address] [place] Methemoglobin (Bld) [Mass fraction] 0.6 % Normal 0.0-1.5 [facility] Comment on above: Order Comment: Speci men Type: ARTERIAL BLOOD SPECIMENOrdering Facility: [facility] Address: [address] [place] [address] Performed By: #### A LLBG ####[facility] LABCLIA [id number] [place] [address] [place] O2 THERAPY NC = Nasal Cannula Normal [facility] Comment on above: Order Comment: Speci men Type: ARTERIAL BLOOD SPECIMENOrdering Facility: [facility] Address: [address] [place] [address] Performed By: #### A LLBG ####[facility] LABCLIA [id number] [place] [address] [place] Oxygen (Bld) [Partial pressure] 110 mm Hg High 85-95 [facility] Comment on above: Order Comment: Speci men Type: ARTERIAL BLOOD SPECIMENOrdering Facility: [facility] Address: [address] [place] [address] Performed By: #### A LLBG ####[facility] [id number] [place] [address] [place] Oxyhemoglobin (BldA) [Mass fraction] 96 % Normal 95-98 [facility] Comment on above: Order Comment: Speci men Type: ARTERIAL BLOOD SPECIMENOrdering Facility: [facility] Address: [address] [place] [address] Performed By: #### A LLBG ####[facility] [id number] [place] [address] [place] pH (Bld) 7.40 [pH] Normal 7.35-7.45 [facility] Comment on above: Order Comment: Speci men Type: ARTERIAL BLOOD SPECIMENOrdering Facility: [facility] Address: [address] [place] [address] Performed By: #### A LLBG ####[facility] [id number] [place] [address] [place] Potassium [Moles/Vol] 3.9 mmol/L Normal 3.5-5.[address] [facility] Comment on above: Order Comment: Speci men Type: ARTERIAL BLOOD SPECIMENOrdering Facility: [facility] Address: [address] [place] [address] Performed By: #### A LLBG ####[facility] [id number] [place] [address] [place] Sodium [Moles/Vol] 143 mmol/L Normal 136-144 [facility] Comment on above: Order Comment: Speci men Type: ARTERIAL BLOOD SPECIMENOrdering Facility: [facility] Address: [address] [place] [address] Performed By: #### A LLBG ####[facility] [id number] [place] [address] [place] Base excess Calc (Bld) [Moles/Vol] 3 mmol/L High 0-2 [facility] Comment on above: Order Comment: Speci men Type: ARTERIAL BLOOD SPECIMENOrdering Facility: [facility] Address: [address] [place] [address] Performed By: #### A LLBG ####[facility] [id number] [place] [address] [place] Body temperature 98.6 [degF] Normal [facility] Comment on above: Order Comment: Speci men Type: ARTERIAL BLOOD SPECIMENOrdering Facility: [facility] Address: [address] [place] [address] Performed By: #### A LLBG ####[facility] LABCLIA [id number] [place] [address] [place] Calcium.ionized (Bld) [Mass/Vol] 1.23 mmol/L Normal 1.08-1.30 [facility] Comment on above: Order Comment: Speci men Type: ARTERIAL BLOOD SPECIMENOrdering Facility: [facility] Address: [address] [place] [address] Performed By: #### A LLBG ####[facility] [id number] [place] [address] [place] Calcium.ionized adjusted to pH 7.4 (BldA) [Moles/Vol] 1.23 mmol/L Normal 1.08-1.30 [facility] Comment on above: Order Comment: Speci men Type: ARTERIAL BLOOD SPECIMENOrdering Facility: [facility] Address: [address] [place] [address] Performed By: #### A LLBG ####[facility] LABCLIA [id number] [place] [address] [place] Carboxyhemoglobin (BldA) [Mass fraction] 1.2 % Normal 0.0-2.0 [facility] Comment on above: Order Comment: Speci men Type: ARTERIAL BLOOD SPECIMENOrdering Facility: [facility] Address: [address] [place] [address] Result Comment: Carb oxyhemoglobin Reference Range for Smokers: 2.0-8.0% Performed By: #### A LLBG ####[facility]CLIA [id number] [place] [address] [place] CO2 (Bld) [Partial pressure] 45 mm Hg Normal 36-46 [facility] Comment on above: Order Comment: Speci men Type: ARTERIAL BLOOD SPECIMENOrdering Facility: [facility] Address: [address] [place] [address] Performed By: #### A LLBG ####[facility] LABCLIA [id number] [place] [address] [place] Glucose [Mass/Vol] 203 mg/dL High 60-105 [facility] Comment on above: Order Comment: Speci men Type: ARTERIAL BLOOD SPECIMENOrdering Facility: [facility] Address: [address] [place] [address] Performed By: #### A LLBG ####[facility]IA [id number] [place] [address] [place] HCO3 (Bld) [Moles/Vol] 27 mmol/L High 22-26 [facility] Comment on above: Order Comment: Speci men Type: ARTERIAL BLOOD SPECIMENOrdering Facility: [facility] Address: [address] [place] [address] Performed By: #### A LLBG ####[facility] LABCLIA [id number] [place] [address] [place] Hematocrit (Bld) [Volume fraction] 30.0 % Low 36.0-46.0 [facility] Comment on above: Order Comment: Speci men Type: ARTERIAL BLOOD SPECIMENOrdering Facility: [facility] Address: [address] [place] [address] Performed By: #### A LLBG ####[facility] LABCLIA [id number] [place] [address] [place] Hemoglobin (Bld) [Mass/Vol] 9.7 g/dL Low 11.5-15.5 [facility] Comment on above: Order Comment: Speci men Type: ARTERIAL BLOOD SPECIMENOrdering Facility: [facility] Address: [address] [place] [address] Performed By: #### A LLBG ####[facility]CLIA [id number] [place] [address] [place] Lactate [Moles/Vol] 1.4 mmol/L Normal 0.5-2.2 [facility] Comment on above: Order Comment: Speci men Type: ARTERIAL BLOOD SPECIMENOrdering Facility: [facility] Address: [address] [place] [address] Performed By: #### A LLBG ####[facility]CLIA [id number] [place] [address] [place] Methemoglobin (Bld) [Mass fraction] 1.4 % Normal 0.0-1.5 [facility] Comment on above: Order Comment: Speci men Type: ARTERIAL BLOOD SPECIMENOrdering Facility: [facility] Address: [address] [place] [address] Performed By: #### A LLBG ####[facility] LABCLIA [id number] [place] [address] [place] O2 THERAPY NC = Nasal Cannula Normal [facility] Comment on above: Order Comment: Speci men Type: ARTERIAL BLOOD SPECIMENOrdering Facility: [facility] Address: [address] [place], [place] [address] Performed By: #### A LLBG ####[facility]CLIA [id number] [place] [address] [place] Oxygen (Bld) [Partial pressure] 97 mm Hg High 85-95 [facility] Comment on above: Order Comment: Speci men Type: ARTERIAL BLOOD SPECIMENOrdering Facility: [facility] Address: [address] [place] [address] Performed By: #### A LLBG ####[facility] [id number] [place] [address] [place] Oxyhemoglobin (BldA) [Mass fraction] 95 % Normal 95-98 [facility] Comment on above: Order Comment: Speci men Type: ARTERIAL BLOOD SPECIMENOrdering Facility: [facility] Address: [address] [place] [address] Performed By: #### A LLBG ####[facility] [id number] [place] [address] [place] pH (Bld) 7.40 [pH] Normal 7.35-7.45 [facility] Comment on above: Order Comment: Speci men Type: ARTERIAL BLOOD SPECIMENOrdering Facility: [facility] Address: [address] [place] [address] Performed By: #### A LLBG ####[facility] [id number] [place] [address] [place] Potassium [Moles/Vol] 3.8 mmol/L Normal 3.5-5.[address] [facility] Comment on above: Order Comment: Speci men Type: ARTERIAL BLOOD SPECIMENOrdering Facility: [facility] Address: [address] [place] [address] Performed By: #### A LLBG ####[facility] [id number] [place] [address] [place] Sodium [Moles/Vol] 143 mmol/L Normal 136-144 [facility] Comment on above: Order Comment: Speci men Type: ARTERIAL BLOOD SPECIMENOrdering Facility: [facility] Address: [address] [place] [address] Performed By: #### A LLBG ####[facility] [id number] [place] [address] [place] Base excess Calc (Bld) [Moles/Vol] 3 mmol/L High 0-2 [facility] Comment on above: Order Comment: Speci men Type: ARTERIAL BLOOD SPECIMENOrdering Facility: [facility] Address: [address] [place] [address] Performed By: #### A LLBG ####[facility]CLIA [id number] [place] [address] [place] Body temperature 98.6 [degF] Normal [facility] Comment on above: Order Comment: Speci men Type: ARTERIAL BLOOD SPECIMENOrdering Facility: [facility] Address: [address] [place] [address] Performed By: #### A LLBG ####[facility]CLIA [id number] [place] [address] [place] Calcium.ionized (Bld) [Mass/Vol] 1.23 mmol/L Normal 1.08-1.30 [facility] Comment on above: Order Comment: Speci men Type: ARTERIAL BLOOD SPECIMENOrdering Facility: [facility] Address: [address] [place] [address] Performed By: #### A LLBG ####[facility] [id number] [place] [address] [place] Calcium.ionized adjusted to pH 7.4 (BldA) [Moles/Vol] 1.23 mmol/L Normal 1.08-1.30 [facility] Comment on above: Order Comment: Speci men Type: ARTERIAL BLOOD SPECIMENOrdering Facility: [facility] Address: [address] [place] [address] Performed By: #### A LLBG ####[facility] LABCLIA [id number] [place] [address] [place] Carboxyhemoglobin (BldA) [Mass fraction] 1.7 % Normal 0.0-2.0 [facility] Comment on above: Order Comment: Speci men Type: ARTERIAL BLOOD SPECIMENOrdering Facility: [facility] Address: [address] [place] [address] Result Comment: Carb oxyhemoglobin Reference Range for Smokers: 2.0-8.0% Performed By: #### A LLBG ####[facility]CLIA [id number] [place] [address] [place] CO2 (Bld) [Partial pressure] 45 mm Hg Normal 36-46 [facility] Comment on above: Order Comment: Speci men Type: ARTERIAL BLOOD SPECIMENOrdering Facility: [facility] Address: [address] [place] [address] Performed By: #### A LLBG ####[facility]CLIA [id number] [place] [address] [place] Glucose [Mass/Vol] 191 mg/dL High 60-105 [facility] Comment on above: Order Comment: Speci men Type: ARTERIAL BLOOD SPECIMENOrdering Facility: [facility] Address: [address] [place] [address] Performed By: #### A LLBG ####[facility] LABCLIA [id number] [place] [address] [place] HCO3 (Bld) [Moles/Vol] 27 mmol/L High 22-26 [facility] Comment on above: Order Comment: Speci men Type: ARTERIAL BLOOD SPECIMENOrdering Facility: [facility] Address: [address] [place] [address] Performed By: #### A LLBG ####[facility] LABCLIA [id number] [place] [address] [place] Hematocrit (Bld) [Volume fraction] 28.4 % Low 36.0-46.0 [facility] Comment on above: Order Comment: Speci men Type: ARTERIAL BLOOD SPECIMENOrdering Facility: [facility] Address: [address] [place] [address] Performed By: #### A LLBG ####[facility]CLIA [id number] [place] [address] [place] Hemoglobin (Bld) [Mass/Vol] 9.2 g/dL Low 11.5-15.5 [facility] Comment on above: Order Comment: Speci men Type: ARTERIAL BLOOD SPECIMENOrdering Facility: [facility] Address: [address] [place] [address] Performed By: #### A LLBG ####[facility] [id number] [place] [address] [place] Lactate [Moles/Vol] 1.3 mmol/L Normal 0.5-2.2 [facility] Comment on above: Order Comment: Speci men Type: ARTERIAL BLOOD SPECIMENOrdering Facility: [facility] Address: [address] [place] [address] Performed By: #### A LLBG ####[facility] [id number] [place] [address] [place] Methemoglobin (Bld) [Mass fraction] 1.3 % Normal 0.0-1.5 [facility] Comment on above: Order Comment: Speci men Type: ARTERIAL BLOOD SPECIMENOrdering Facility: [facility] Address: [address] [place] [address] Performed By: #### A LLBG ####[facility] [id number] [place] [address] [place] O2 THERAPY NC = Nasal Cannula Normal [facility] Comment on above: Order Comment: Speci men Type: ARTERIAL BLOOD SPECIMENOrdering Facility: [facility] Address: [address] [place] [address] Performed By: #### A LLBG ####[facility] [id number] [place] [address] [place] Oxygen (Bld) [Partial pressure] 111 mm Hg High 85-95 [facility] Comment on above: Order Comment: Speci men Type: ARTERIAL BLOOD SPECIMENOrdering Facility: [facility] Address: [address] [place] [address] Performed By: #### A LLBG ####[facility] LABCLIA [id number] [place] [address] [place] Oxyhemoglobin (BldA) [Mass fraction] 96 % Normal 95-98 [facility] Comment on above: Order Comment: Speci men Type: ARTERIAL BLOOD SPECIMENOrdering Facility: [facility] Address: [address] [place] [address] Performed By: #### A LLBG ####[facility] [id number] [place] [address] [place] pH (Bld) 7.40 [pH] Normal 7.35-7.45 [facility] Comment on above: Order Comment: Speci men Type: ARTERIAL BLOOD SPECIMENOrdering Facility: [facility] Address: [address] [place] [address] Performed By: #### A LLBG ####[facility] LABCLIA [id number] [place] [address] [place] Potassium [Moles/Vol] 4.0 mmol/L Normal 3.5-5.[address] [facility] Comment on above: Order Comment: Speci men Type: ARTERIAL BLOOD SPECIMENOrdering Facility: [facility] Address: [address] [place] [address] Performed By: #### A LLBG ####[facility] LABCLIA [id number] [place] [address] [place] Sodium [Moles/Vol] 142 mmol/L Normal 136-144 [facility] Comment on above: Order Comment: Speci men Type: ARTERIAL BLOOD SPECIMENOrdering Facility: [facility] Address: [address] [place] [address] Performed By: #### A LLBG ####[facility] LABCLIA [id number] [place] [address] [place] Base excess Calc (Bld) [Moles/Vol] 2 mmol/L Normal 0-2 [facility] Comment on above: Order Comment: Speci men Type: ARTERIAL BLOOD SPECIMENOrdering Facility: [facility] Address: [address] [place] [address] Performed By: #### A LLBG ####[facility] [id number] [place] [address] [place] Body temperature 98.6 [degF] Normal [facility] Comment on above: Order Comment: Speci men Type: ARTERIAL BLOOD SPECIMENOrdering Facility: [facility] Address: [address] [place] [address] Performed By: #### A LLBG ####[facility]IA [id number] [place] [address] [place] Calcium.ionized (Bld) [Mass/Vol] 1.26 mmol/L Normal 1.08-1.30 [facility] Comment on above: Order Comment: Speci men Type: ARTERIAL BLOOD SPECIMENOrdering Facility: [facility] Address: [address] [place] [address] Performed By: #### A LLBG ####[facility] [id number] [place] [address] [place] Calcium.ionized adjusted to pH 7.4 (BldA) [Moles/Vol] 1.23 mmol/L Normal 1.08-1.30 [facility] Comment on above: Order Comment: Speci men Type: ARTERIAL BLOOD SPECIMENOrdering Facility: [facility] Address: [address] [place] [address] Performed By: #### A LLBG ####[facility]IA [id number] [place] [address] [place] Carboxyhemoglobin (BldA) [Mass fraction] 2.0 % Normal 0.0-2.0 [facility] Comment on above: Order Comment: Speci men Type: ARTERIAL BLOOD SPECIMENOrdering Facility: [facility] Address: [address] [place] [address] Result Comment: Carb oxyhemoglobin Reference Range for Smokers: 2.0-8.0% Performed By: #### A LLBG ####[facility] LAB[facility]IA [id number] [place] [address] [place] CO2 (Bld) [Partial pressure] 51 mm Hg High 36-46 [facility] Comment on above: Order Comment: Speci men Type: ARTERIAL BLOOD SPECIMENOrdering Facility: [facility] Address: [address] [place] [address] Performed By: #### A LLBG ####[facility] LABCLIA [id number] [place] [address] [place] Glucose [Mass/Vol] 194 mg/dL High 60-105 [facility] Comment on above: Order Comment: Speci men Type: ARTERIAL BLOOD SPECIMENOrdering Facility: [facility] Address: [address] [place] [address] Performed By: #### A LLBG ####[facility] LABCLIA [id number] [place] [address] [place] HCO3 (Bld) [Moles/Vol] 28 mmol/L High 22-26 [facility] Comment on above: Order Comment: Speci men Type: ARTERIAL BLOOD SPECIMENOrdering Facility: [facility] Address: [address] [place] [address] Performed By: #### A LLBG ####[facility] LABCLIA [id number] [place] [address] [place] Hematocrit (Bld) [Volume fraction] 27.5 % Low 36.0-46.0 [facility] Comment on above: Order Comment: Speci men Type: ARTERIAL BLOOD SPECIMENOrdering Facility: [facility] Address: [address], [place] [address] Performed By: #### A LLBG ####[facility] LABIA [id number] [place] [address] [place] Hemoglobin (Bld) [Mass/Vol] 8.9 g/dL Low 11.5-15.5 [facility] Comment on above: Order Comment: Speci men Type: ARTERIAL BLOOD SPECIMENOrdering Facility: [facility] Address: [address] [place] [address] Performed By: #### A LLBG ####[facility] LABIA [id number] [place] [address] [place] Lactate [Moles/Vol] 1.1 mmol/L Normal 0.5-2.2 [facility] Comment on above: Order Comment: Speci men Type: ARTERIAL BLOOD SPECIMENOrdering Facility: [facility] Address: [address] [place] [address] Performed By: #### A LLBG ####[facility] LABIA [id number] [place] [address] [place] LITERS 6 Liters/min Normal [facility] Comment on above: Order Comment: Speci men Type: ARTERIAL BLOOD SPECIMENOrdering Facility: [facility] Address: [address] [place] [address] Performed By: #### A LLBG ####[facility] [id number] [place] [address] [place] Methemoglobin (Bld) [Mass fraction] 0.3 % Normal 0.0-1.5 [facility] Comment on above: Order Comment: Speci men Type: ARTERIAL BLOOD SPECIMENOrdering Facility: [facility] Address: [address] [place] [address] Performed By: #### A LLBG ####[facility] LABIA [id number] [place] [address] [place] O2 THERAPY NC = Nasal Cannula Normal [facility] Comment on above: Order Comment: Speci men Type: ARTERIAL BLOOD SPECIMENOrdering Facility: [facility] Address: [address] [place] [address] Performed By: #### A LLBG ####[facility] LABCLIA [id number] [place] [address] [place] Oxygen (Bld) [Partial pressure] 136 mm Hg High 85-95 [facility] Comment on above: Order Comment: Speci men Type: ARTERIAL BLOOD SPECIMENOrdering Facility: [facility] Address: [address] [place] [address] Performed By: #### A LLBG ####[facility] LABCLIA [id number] [place] [address] [place] Oxyhemoglobin (BldA) [Mass fraction] 97 % Normal 95-98 [facility] Comment on above: Order Comment: Speci men Type: ARTERIAL BLOOD SPECIMENOrdering Facility: [facility] Address: [address] [place] [address] Performed By: #### A LLBG ####[facility] LABCLIA [id number] [place] [address] [place] pH (Bld) 7.35 [pH] Normal 7.35-7.45 [facility] Comment on above: Order Comment: Speci men Type: ARTERIAL BLOOD SPECIMENOrdering Facility: [facility] Address: [address] [place] [address] Performed By: #### A LLBG ####[facility] LABCLIA [id number] [place] [address] [place] Potassium [Moles/Vol] 3.8 mmol/L Normal 3.5-5.[address] [facility] Comment on above: Order Comment: Speci men Type: ARTERIAL BLOOD SPECIMENOrdering Facility: [facility] Address: [address] [place] [address] Performed By: #### A LLBG ####[facility] LABCLIA [id number] [place] [address] [place] Sodium [Moles/Vol] 146 mmol/L High 136-144 [facility] Comment on above: Order Comment: Speci men Type: ARTERIAL BLOOD SPECIMENOrdering Facility: [facility] Address: [address] [place] [address] Performed By: #### A LLBG ####[facility] LABCLIA [id number] [place] [address] [place] Base excess Calc (Bld) [Moles/Vol] 1 mmol/L Normal 0-2 [facility] Comment on above: Order Comment: Speci men Type: ARTERIAL BLOOD SPECIMENOrdering Facility: [facility] Address: [address] [place] [address] Performed By: #### A LLBG ####[facility] LABCLIA [id number] [place] [address] [place] Body temperature 98.6 [degF] Normal [facility] Comment on above: Order Comment: Speci men Type: ARTERIAL BLOOD SPECIMENOrdering Facility: [facility] Address: [address] [place] [address] Performed By: #### A LLBG ####[facility] LABCLIA [id number] [place] [address] [place] Calcium.ionized (Bld) [Mass/Vol] 1.23 mmol/L Normal 1.08-1.30 [facility] Comment on above: Order Comment: Speci men Type: ARTERIAL BLOOD SPECIMENOrdering Facility: [facility] Address: [address] [place] [address] Performed By: #### A LLBG ####[facility] LABCLIA [id number] [place] [address] [place] Calcium.ionized adjusted to pH 7.4 (BldA) [Moles/Vol] 1.22 mmol/L Normal 1.08-1.30 [facility] Comment on above: Order Comment: Speci men Type: ARTERIAL BLOOD SPECIMENOrdering Facility: [facility] Address: [address] [place] [address] Performed By: #### A LLBG ####[facility] LABCLIA [id number] [place] [address] [place] Carboxyhemoglobin (BldA) [Mass fraction] 2.1 % High 0.0-2.0 [facility] Comment on above: Order Comment: Speci men Type: ARTERIAL BLOOD SPECIMENOrdering Facility: [facility] Address: [address] [place] [address] Result Comment: Carb oxyhemoglobin Reference Range for Smokers: 2.0-8.0% Performed By: #### A LLBG ####[facility] LABCLIA [id number] [place] [address] [place] CO2 (Bld) [Partial pressure] 45 mm Hg Normal 36-46 [facility] Comment on above: Order Comment: Speci men Type: ARTERIAL BLOOD SPECIMENOrdering Facility: [facility] Address: [address] [place] [address] Performed By: #### A LLBG ####[facility] LABCLIA [id number] [place] [address] [place] Glucose [Mass/Vol] 191 mg/dL High 60-105 [facility] Comment on above: Order Comment: Speci men Type: ARTERIAL BLOOD SPECIMENOrdering Facility: [facility] Address: [address] [place] [address] Performed By: #### A LLBG ####[facility] LABCLIA [id number] [place] [address] [place] HCO3 (Bld) [Moles/Vol] 26 mmol/L Normal 22-26 [facility] Comment on above: Order Comment: Speci men Type: ARTERIAL BLOOD SPECIMENOrdering Facility: [facility] Address: [address] [place] [address] Performed By: #### A LLBG ####[facility] LABCLIA [id number] [place] [address] [place] Hematocrit (Bld) [Volume fraction] 27.8 % Low 36.0-46.0 [facility] Comment on above: Order Comment: Speci men Type: ARTERIAL BLOOD SPECIMENOrdering Facility: [facility] Address: [address] [place] [address] Performed By: #### A LLBG ####[facility] LABCLIA [id number] [place] [address] [place] Hemoglobin (Bld) [Mass/Vol] 8.9 g/dL Low 11.5-15.5 [facility] Comment on above: Order Comment: Speci men Type: ARTERIAL BLOOD SPECIMENOrdering Facility: [facility] Address: [address] [place] [address] Performed By: #### A LLBG ####[facility] LABIA [id number] [place] [address] [place] Lactate [Moles/Vol] 1.1 mmol/L Normal 0.5-2.2 [facility] Comment on above: Order Comment: Speci men Type: ARTERIAL BLOOD SPECIMENOrdering Facility: [facility] Address: [address] [place] [address] Performed By: #### A LLBG ####[facility] LABIA [id number] [place] [address] [place] Methemoglobin (Bld) [Mass fraction] 0.6 % Normal 0.0-1.5 [facility] Comment on above: Order Comment: Speci men Type: ARTERIAL BLOOD SPECIMENOrdering Facility: [facility] Address: [address] [place] [address] Performed By: #### A LLBG ####[facility] LABIA [id number] [place] [address] [place] O2 THERAPY Positive Normal [facility] Comment on above: Order Comment: Speci men Type: ARTERIAL BLOOD SPECIMENOrdering Facility: [facility] Address: [address] [place] [address] Performed By: #### A LLBG ####[facility] LABCLIA [id number] [address] [address] [place] Oxygen (Bld) [Partial pressure] 89 mm Hg Normal 85-95 [facility] Comment on above: Order Comment: Speci men Type: ARTERIAL BLOOD SPECIMENOrdering Facility: [facility] Address: [address] [place] [address] Performed By: #### A LLBG ####[facility] LABCLIA [id number] [place] [address] [place] Oxyhemoglobin (BldA) [Mass fraction] 95 % Normal 95-98 [facility] Comment on above: Order Comment: Speci men Type: ARTERIAL BLOOD SPECIMENOrdering Facility: [facility] Address: [address] [place] [address] Performed By: #### A LLBG ####[facility] LABCLIA [id number] [place] [address] [place] pH (Bld) 7.38 [pH] Normal 7.35-7.45 [facility] Comment on above: Order Comment: Speci men Type: ARTERIAL BLOOD SPECIMENOrdering Facility: [facility] Address: [address] [place] [address] Performed By: #### A LLBG ####[facility] LABCLIA [id number] [place] [id number] [place] Potassium [Moles/Vol] 4.0 mmol/L Normal 3.5-5.[address] [facility] Comment on above: Order Comment: Speci men Type: ARTERIAL BLOOD SPECIMENOrdering Facility: [facility] Address: [address] [place], [place] [id number] Performed By: #### A LLBG ####[facility] LABCLIA [id number] [place] [address] [place] Sodium [Moles/Vol] 145 mmol/L High 136-144 [facility] Comment on above: Order Comment: Speci men Type: ARTERIAL BLOOD SPECIMENOrdering Facility: [facility] Address: [address] [place] [address] Performed By: #### A LLBG ####[facility] LABCLIA [id number] [place] [address] [place] Base excess Calc (Bld) [Moles/Vol] 1 mmol/L Normal 0-2 [facility] Comment on above: Order Comment: Speci men Type: ARTERIAL BLOOD SPECIMENOrdering Facility: [facility] Address: [address] [place] [address] Performed By: #### A LLBG ####[facility] LABCLIA [id number] [place] [address] [place] Body temperature 98.6 [degF] Normal [facility] Comment on above: Order Comment: Speci men Type: ARTERIAL BLOOD SPECIMENOrdering Facility: [facility] Address: [address] [place] [address] Performed By: #### A LLBG ####[facility] LABIA [id number] [place] [address] [place] Calcium.ionized (Bld) [Mass/Vol] 1.22 mmol/L Normal 1.08-1.30 [facility] Comment on above: Order Comment: Speci men Type: ARTERIAL BLOOD SPECIMENOrdering Facility: [facility] Address: [address] [place] [address] Performed By: #### A LLBG ####[facility] LABCLIA [id number] [place] [address] [place] Calcium.ionized adjusted to pH 7.4 (BldA) [Moles/Vol] 1.21 mmol/L Normal 1.08-1.30 [facility] Comment on above: Order Comment: Speci men Type: ARTERIAL BLOOD SPECIMENOrdering Facility: [facility] Address: [address] [place] [address] Performed By: #### A LLBG ####[facility] LABCLIA [id number] [place] [address] [place] Carboxyhemoglobin (BldA) [Mass fraction] 1.3 % Normal 0.0-2.0 [facility] Comment on above: Order Comment: Speci men Type: ARTERIAL BLOOD SPECIMENOrdering Facility: [facility] Address: [address] [place] [address] Result Comment: Carb oxyhemoglobin Reference Range for Smokers: 2.0-8.0% Performed By: #### A LLBG ####[facility] LABCLIA [id number] [place] [address] [place] CO2 (Bld) [Partial pressure] 44 mm Hg Normal 36-46 [facility] Comment on above: Order Comment: Speci men Type: ARTERIAL BLOOD SPECIMENOrdering Facility: [facility] Address: [address] [place] [address] Performed By: #### A LLBG ####[facility] LABCLIA [id number] [place] [address] [place] Glucose [Mass/Vol] 169 mg/dL High 60-105 [facility] Comment on above: Order Comment: Speci men Type: ARTERIAL BLOOD SPECIMENOrdering Facility: [facility] Address: [address] [place] [address] Performed By: #### A LLBG ####[facility] LABIA [id number] [place] [address] [place] HCO3 (Bld) [Moles/Vol] 26 mmol/L Normal 22-26 [facility] Comment on above: Order Comment: Speci men Type: ARTERIAL BLOOD SPECIMENOrdering Facility: [facility] Address: [address] [place] [address] Performed By: #### A LLBG ####[facility] LABCLIA [id number] [place] [address] [place] Hematocrit (Bld) [Volume fraction] 28.1 % Low 36.0-46.0 [facility] Comment on above: Order Comment: Speci men Type: ARTERIAL BLOOD SPECIMENOrdering Facility: [facility] Address: [address] [place] [address] Performed By: #### A LLBG ####[facility] LABCLIA [id number] [place] [address] [place] Lactate [Moles/Vol] 1.3 mmol/L Normal 0.5-2.2 [facility] Comment on above: Order Comment: Speci men Type: ARTERIAL BLOOD SPECIMENOrdering Facility: [facility] Address: [address] [place] [address] Performed By: #### A LLBG ####[facility] LABCLIA [id number] [place] [address] [place] Methemoglobin (Bld) [Mass fraction] 0.4 % Normal 0.0-1.5 [facility] Comment on above: Order Comment: Speci men Type: ARTERIAL BLOOD SPECIMENOrdering Facility: [facility] Address: [address] [place] [address] Performed By: #### A LLBG ####[facility] LABCLIA [id number] [place] [address] [place] O2 THERAPY Positive Normal [facility] Comment on above: Order Comment: Speci men Type: ARTERIAL BLOOD SPECIMENOrdering Facility: [facility] Address: [address] [place] [address] Performed By: #### A LLBG ####[facility] LABCLIA [id number] [place] [address] [place] Oxygen (Bld) [Partial pressure] 92 mm Hg Normal 85-95 [facility] Comment on above: Order Comment: Speci men Type: ARTERIAL BLOOD SPECIMENOrdering Facility: [facility] Address: [address] [place] [address] Performed By: #### A LLBG ####[facility] LABCLIA [id number] [place] [address] [place] Oxyhemoglobin (BldA) [Mass fraction] 95 % Normal 95-98 [facility] Comment on above: Order Comment: Speci men Type: ARTERIAL BLOOD SPECIMENOrdering Facility: [facility] Address: [address] [place] [address] Performed By: #### A LLBG ####[facility] LABIA [id number] [place] [address] [place] pH (Bld) 7.38 [pH] Normal 7.35-7.45 [facility] Comment on above: Order Comment: Speci men Type: ARTERIAL BLOOD SPECIMENOrdering Facility: [facility] Address: [address] [place] [address] Performed By: #### A LLBG ####[facility] LABIA [id number] [place] [address] [place] CBC Pnl Bld Autoon 4 Hemoglobin (Bld) [Mass/Vol] 9.1 g/dL Low 11.5-15.5 [facility] Comment on above: Order Comment: Speci men Type: BLOOD SPECIMENOrdering Facility: [facility] Address: [address] [place] [address] Performed By: #### 5 8410-2 ####[facility] LABIA [id number] [place] [address] [place] Order Comment: Speci men Type: ARTERIAL BLOOD SPECIMENOrdering Facility: [facility] Address: [address] [place] [address] Performed By: #### A LLBG ####[facility] LABCLIA [id number] [place] [address] [place] CBC panel Auto (Bld)on 11-02 Erythrocyte distribution width (RBC) [Ratio] 14.6 % Normal 11.5-15.0 [facility] Comment on above: Order Comment: Speci men Type: BLOOD SPECIMENOrdering Facility: [facility] Address: [address] [place] [address] Performed By: #### 5 8410-2 ####[facility] LABIA [id number] [place] [address] [place] Hematocrit (Bld) [Volume fraction] 29.5 % Low 36.0-46.0 [facility] Comment on above: Order Comment: Speci men Type: BLOOD SPECIMENOrdering Facility: [facility] Address: [address] [place] [address] Performed By: #### 5 8410-2 ####[facility] LABIA [id number] [place] [address] [place] MCH (RBC) [Entitic mass] 32.0 pg Normal 26.0-34.0 [facility] Comment on above: Order Comment: Speci men Type: BLOOD SPECIMENOrdering Facility: [facility] Address: [address] [place] [address] Performed By: #### 5 8410-2 ####[facility] LABIA [id number] [place] [address] [place] MCHC (RBC) [Mass/Vol] 30.8 g/dL Normal 30.5-36.[address] [facility] Comment on above: Order Comment: Speci men Type: BLOOD SPECIMENOrdering Facility: [facility] Address: [address] [place] [address] Performed By: #### 5 8410-2 ####[facility] LABIA [id number] [place] [address] [place] MCV (RBC) [Entitic vol] 103.9 fL High 80.0-100.0 [facility] Comment on above: Order Comment: Speci men Type: BLOOD SPECIMENOrdering Facility: [facility] Address: [address] [place] [address] Performed By: #### 5 8410-2 ####[facility] LABIA [id number] [place] [address] [place] Nucleated RBC (Bld) [#/Vol] 10*3/uL Normal <0.01 [facility] Comment on above: Order Comment: Speci men Type: BLOOD SPECIMENOrdering Facility: [facility] Address: [address] [place] [address] Performed By: #### 5 8410-2 ####[facility] LABIA [id number] [place] [address] [place] Platelet mean volume (Bld) [Entitic vol] 9.2 fL Normal 9.0-12.7 [facility] Comment on above: Order Comment: Speci men Type: BLOOD SPECIMENOrdering Facility: [facility] Address: [address] [place] [address] Performed By: #### 5 8410-2 ####[facility] LABIA [id number] [place] [address] [place] Platelets (Bld) [#/Vol] 267 10*3/uL Normal 150-400 [facility] Comment on above: Order Comment: Speci men Type: BLOOD SPECIMENOrdering Facility: [facility] Address: [address] [place] [address] Performed By: #### 5 8410-2 ####[facility] LABIA [id number] [place] [address] [place] RBC (Bld) [#/Vol] 2.84 10*6/uL Low 3.90-5.20 [facility] Comment on above: Order Comment: Speci men Type: BLOOD SPECIMENOrdering Facility: [facility] Address: [address] [place] [address] Performed By: #### 5 8410-2 ####[facility] LABCLIA [id number] [place] [address] [place] WBC (Bld) [#/Vol] 8.79 10*3/uL Normal 3.70-11.00 [facility] Comment on above: Order Comment: Speci men Type: BLOOD SPECIMENOrdering Facility: [facility] Address: [address] [place] [address] Performed By: #### 5 8410-2 ####[facility] LABCLIA [id number] [place] [address] [place] CONSULT PROGon 11-03-2023 CONSULT PROG Normal [facility] Comp Metab 2000 Pnl SerPlon 11-03-2023 Potassium [Moles/Vol] 3.7 mmol/L Normal 3.5-5.[address] [facility] Comment on above: Order Comment: Speci men Type: BLOOD SPECIMENOrdering Facility: [facility] Address: [address] [place] [address] Performed By: #### 2 4323-8, ####[facility] LABCLIA [id number] [place] [address] [place] Order Comment: Speci men Type: ARTERIAL BLOOD SPECIMENOrdering Facility: [facility] Address: [address] [place] [address] Performed By: #### A LLBG ####[facility] LABCLIA [id number] [place] [address] [place] Sodium [Moles/Vol] 146 mmol/L High 136-144 [facility] Comment on above: Order Comment: Speci men Type: BLOOD SPECIMENOrdering Facility: [facility] Address: [address] [place] [address] Performed By: #### 2 4323-8, ####[facility] LABCLIA [id number] [place] [address] [place] Order Comment: Speci men Type: ARTERIAL BLOOD SPECIMENOrdering Facility: [facility] Address: [address] [place] [address] Performed By: #### A LLBG ####[facility] LABCLIA [id number] [place] [address] [place] Comprehensive metabolic 2000 panelon 11-03-2023 Albumin [Mass/Vol] 3.3 g/dL Low 3.9-4.9 [facility] Comment on above: Order Comment: Speci men Type: BLOOD SPECIMENOrdering Facility: [facility] Address: [address] [place] [address] Performed By: #### 2 4323-8, ####[facility] LABCLIA [id number] [place] [address] [place] ALP [Catalytic activity/Vol] 60 U/L Normal 34-123 [facility] Comment on above: Order Comment: Speci men Type: BLOOD SPECIMENOrdering Facility: [facility] Address: [address] [place] [address] Performed By: #### 2 4323-8, ####[facility] LABCLIA [id number] [place] [address] [place] ALT [Catalytic activity/Vol] 27 U/L Normal 7-38 [facility] Comment on above: Order Comment: Speci men Type: BLOOD SPECIMENOrdering Facility: [facility] Address: [address] [place] [address] Performed By: #### 2 4323-8, ####[facility] LABCLIA [id number] [place] [id number] [place] Anion gap [Moles/Vol] 16 mmol/L High 8-[address] [facility] Comment on above: Order Comment: Speci men Type: BLOOD SPECIMENOrdering Facility: [facility] Address: [address] [place], [place] [id number] Performed By: #### 2 4323-8, ####[facility] LABCLIA [id number] [place] [id number] [place] AST [Catalytic activity/Vol] 20 U/L Normal 13-35 [facility] Comment on above: Order Comment: Speci men Type: BLOOD SPECIMENOrdering Facility: [facility] Address: [address] [place] [address] Performed By: #### 2 4323-8, ####[facility] LABIA [id number] [place] [address] [place] Bilirubin [Mass/Vol] 0.7 mg/dL Normal 0.2-1.3 [facility] Comment on above: Order Comment: Speci men Type: BLOOD SPECIMENOrdering Facility: [facility] Address: [address] [place] [address] Performed By: #### 2 4323-8, ####[facility] LABIA [id number] [place] [address] [place] Calcium [Mass/Vol] 9.1 mg/dL Normal 8.5-10.2 [facility] Comment on above: Order Comment: Speci men Type: BLOOD SPECIMENOrdering Facility: [facility] Address: [address] [place] [address] Performed By: #### 2 4323-8, ####[facility] LABIA [id number] [place] [id number] [place] Chloride [Moles/Vol] 106 mmol/L Normal 98-107 [facility] Comment on above: Order Comment: Speci men Type: BLOOD SPECIMENOrdering Facility: [facility] Address: [address] [place], [place] [address] Performed By: #### 2 4328 ####[facility] LABCLIA [id number] [place] [id number] [place] CO2 [Moles/Vol] 24 mmol/L Normal 22-30 [facility] Comment on above: Order Comment: Speci men Type: BLOOD SPECIMENOrdering Facility: [facility] Address: [address] [place] [address] Performed By: #### 2 4322-11, ####[facility] LABIA [id number] [place] [address] [place] Creatinine [Mass/Vol] 1.08 mg/dL High 0.58-0.[address] [facility] Comment on above: Order Comment: Speci men Type: BLOOD SPECIMENOrdering Facility: [facility] Address: [address] [place] [address] Performed By: #### 2 4322-11, ####[facility] LABIA [id number] [place] [address] [place] Creatinine and Glomerular filtration rate.predicted panel (S/P/Bld) 58 mL/min/1.73m??? Low >=60 [facility] Comment on above: Order Comment: Speci men Type: BLOOD SPECIMENOrdering Facility: [facility] Address: [address] [place] [address] Result Comment: Malorie mated Glomerular Filtration Rate (eGFR) is calculated using the 2020 CKD-EPI creatinine equation. This equation utilizes serum creatinine, sex, and age as parameters. The creatinine assay has traceable calibration to isotope dilution-mass spectrometry. Refer to KDIGO guidelines for clinical interpretation. In patients with unstable renal function, e.g. those with acute kidney injury, the eGFR may not accurately reflect actual GFR. Performed By: #### 2 4323-8, ####[facility] LABIA [id number] [place] [id number] [place] Glucose [Mass/Vol] 164 mg/dL High 74-99 [facility] Comment on above: Order Comment: Ernie billy Type: BLOOD SPECIMENOrdering Facility: [facility] Address: [address] [place] [address] Result Comment: The [place] [employer] (ADA) provides guidance for cutoff values for fasting glucose and random glucose. The ADA defines fasting as no caloric intake for at least 8 hours. Fasting plasma glucose results between 100 to 125 mg/dL indicate increased risk for diabetes (prediabetes).Fasting plasma glucose results greater than or equal to 126 mg/dL meet the criteria for diagnosis of diabetes. In the absence of unequivocal hyperglycemia, results should be confirmed by repeat testing. In a patient with classic symptoms of hyperglycemia or hyperglycemic crisis, random plasma glucose results greater than or equal to 200 mg/dL meet the criteria for diagnosis of diabetes.Reference: Standards of Medical Care in Diabetes 2016, [place] [employer]. Diabetes Care. 2016.39(Suppl 1). Performed By: #### 2 4323-8, ####[facility] LABCLIA [id number] [place] [address] [place] Protein [Mass/Vol] 6.2 g/dL Low 6.3-8.0 [facility] Comment on above: Order Comment: Ernie billy Type: BLOOD SPECIMENOrdering Facility: [facility] Address: [address] [place] [address] Performed By: #### 2 4323-8, ####[facility] LABCLIA [id number] [place] [address] [place] Urea nitrogen [Mass/Vol] 41 mg/dL High 7-21 [facility] Comment on above: Order Comment: Ernie billy Type: BLOOD SPECIMENOrdering Facility: [facility] Address: [address] [place], [place] [address] Performed By: #### 2 4323-8, ####[facility] LABCLIA [id number] [address] [address] [place] Magnesium SerPl-mCncon 11-02 Magnesium [Mass/Vol] 2.6 mg/dL High 1.7-2.3 [facility] Comment on above: Order Comment: Speci men Type: BLOOD SPECIMENOrdering Facility: [facility] Address: [address] [place] [address] Performed By: #### 2 4323-8, 57498-1 ####[facility] LABCLIA [id number] [place] [address] [place] TYPE + SCREENon 11-03-2023 ABO O Normal [facility] Comment on above: Order Comment: Speci men Type: BLOOD SPECIMENOrdering Facility: [facility] Address: [address] [place] [address] Performed By: #### T SCR ####[facility] BLOOD BANKCLIA [id number] [place] [address] [place] HISTORICAL AB SCR STATUS Negative Normal [facility] Comment on above: Order Comment: Speci men Type: BLOOD SPECIMENOrdering Facility: [facility] Address: [address] [place] [address] Performed By: #### T SCR ####[facility] BLOOD BANKCLIA [id number] [place] [address] [place] Rh Nom (Bld) Positive Normal [facility] Comment on above: Order Comment: Speci men Type: BLOOD SPECIMENOrdering Facility: [facility] Address: [address] [place] [address] Performed By: #### T SCR ####[facility] BLOOD BANKCLIA [id number] [place] [id number] [place] TYPE AND SCREEN EXPIRATION 11/06/2023 23:59 Normal [facility] Comment on above: Order Comment: Speci men Type: BLOOD SPECIMENOrdering Facility: [facility] Address: [address] [place] [address] Performed By: #### T SCR ####[facility] BLOOD BANKCLIA [id number] [place] [address] [place] XR CHEST 1V FRONTALon 2023 XR CHEST 1V FRONTAL Normal [facility] ARTERIAL BLOOD GASESon 11-01 Base excess Calc (Bld) [Moles/Vol] 4 mmol/L High 0-2 [facility] Comment on above: Order Comment: Speci men Type: ARTERIAL BLOOD SPECIMENOrdering Facility: [facility] Address: [address] [place] [address] Performed By: #### A LLBG ####[facility] LABIA [id number] [place] [address] [place] Body temperature 98.6 [degF] Normal [facility] Comment on above: Order Comment: Speci men Type: ARTERIAL BLOOD SPECIMENOrdering Facility: [facility] Address: [address] [place] [address] Performed By: #### A LLBG ####[facility] LABIA [id number] [place] [address] [place] Calcium.ionized (Bld) [Mass/Vol] 1.24 mmol/L Normal 1.08-1.30 [facility] Comment on above: Order Comment: Speci men Type: ARTERIAL BLOOD SPECIMENOrdering Facility: [facility] Address: [address] [place] [address] Performed By: #### A LLBG ####[facility] LABIA [id number] [place] [address] [place] Calcium.ionized adjusted to pH 7.4 (BldA) [Moles/Vol] 1.22 mmol/L Normal 1.08-1.30 [facility] Comment on above: Order Comment: Speci men Type: ARTERIAL BLOOD SPECIMENOrdering Facility: [facility] Address: [address] [place] [address] Performed By: #### A LLBG ####[facility] LABIA [id number] [place] [address] [place] Carboxyhemoglobin (BldA) [Mass fraction] 1.3 % Normal 0.0-2.0 [facility] Comment on above: Order Comment: Speci men Type: ARTERIAL BLOOD SPECIMENOrdering Facility: [facility] Address: [address] [place] [address] Result Comment: Carb oxyhemoglobin Reference Range for Smokers: 2.0-8.0% Performed By: #### A LLBG ####[facility] LABCLIA [id number] [place] [address] [place] CO2 (Bld) [Partial pressure] 54 mm Hg High 36-46 [facility] Comment on above: Order Comment: Speci men Type: ARTERIAL BLOOD SPECIMENOrdering Facility: [facility] Address: [address] [place] [address] Performed By: #### A LLBG ####[facility] LABCLIA [id number] [place] [address] [place] Glucose [Mass/Vol] 145 mg/dL High 60-105 [facility] Comment on above: Order Comment: Speci men Type: ARTERIAL BLOOD SPECIMENOrdering Facility: [facility] Address: [address] [place] [address] Performed By: #### A LLBG ####[facility] LABCLIA [id number] [place] [address] [place] HCO3 (Bld) [Moles/Vol] 29 mmol/L High 22-26 [facility] Comment on above: Order Comment: Speci men Type: ARTERIAL BLOOD SPECIMENOrdering Facility: [facility] Address: [address] [place] [address] Performed By: #### A LLBG ####[facility] LABCLIA [id number] [place] [address] [place] Hematocrit (Bld) [Volume fraction] 27.1 % Low 36.0-46.0 [facility] Comment on above: Order Comment: Speci men Type: ARTERIAL BLOOD SPECIMENOrdering Facility: [facility] Address: [address] [place] [address] Performed By: #### A LLBG ####[facility] LABCLIA [id number] [place] [address] [place] Hemoglobin (Bld) [Mass/Vol] 8.7 g/dL Low 11.5-15.5 [facility] Comment on above: Order Comment: Speci men Type: ARTERIAL BLOOD SPECIMENOrdering Facility: [facility] Address: [address] [place] [address] Performed By: #### A LLBG ####[facility] LABCLIA [id number] [place] [address] [place] Lactate [Moles/Vol] 1.0 mmol/L Normal 0.5-2.2 [facility] Comment on above: Order Comment: Speci men Type: ARTERIAL BLOOD SPECIMENOrdering Facility: [facility] Address: [address] [place] [address] Performed By: #### A LLBG ####[facility] LABCLIA [id number] [place] [address] [place] LITERS 6 Liters/min Normal [facility] Comment on above: Order Comment: Speci men Type: ARTERIAL BLOOD SPECIMENOrdering Facility: [facility] Address: [address] [place] [address] Performed By: #### A LLBG ####[facility] LABCLIA [id number] [place] [address] [place] Methemoglobin (Bld) [Mass fraction] 0.4 % Normal 0.0-1.5 [facility] Comment on above: Order Comment: Speci men Type: ARTERIAL BLOOD SPECIMENOrdering Facility: [facility] Address: [address] [place] [address] Performed By: #### A LLBG ####[facility] LABCLIA [id number] [place] [address] [place] O2 THERAPY NC = Nasal Cannula Normal [facility] Comment on above: Order Comment: Speci men Type: ARTERIAL BLOOD SPECIMENOrdering Facility: [facility] Address: [address] [place] [address] Performed By: #### A LLBG ####[facility] LABCLIA [id number] [place] [address] [place] Oxygen (Bld) [Partial pressure] 126 mm Hg High 85-95 [facility] Comment on above: Order Comment: Speci men Type: ARTERIAL BLOOD SPECIMENOrdering Facility: [facility] Address: [address] [place] [address] Performed By: #### A LLBG ####[facility] LABCLIA [id number] [place] [address] [place] Oxyhemoglobin (BldA) [Mass fraction] 97 % Normal 95-98 [facility] Comment on above: Order Comment: Speci men Type: ARTERIAL BLOOD SPECIMENOrdering Facility: [facility] Address: [address] [place] [address] Performed By: #### A LLBG ####[facility] LABCLIA [id number] [place] [address] [place] pH (Bld) 7.36 [pH] Normal 7.35-7.45 [facility] Comment on above: Order Comment: Speci men Type: ARTERIAL BLOOD SPECIMENOrdering Facility: [facility] Address: [address] [place] [address] Performed By: #### A LLBG ####[facility] LABIA [id number] [place] [address] [place] Potassium [Moles/Vol] 3.4 mmol/L Low 3.5-5.[address] [facility] Comment on above: Order Comment: Speci men Type: ARTERIAL BLOOD SPECIMENOrdering Facility: [facility] Address: [address] [place] [address] Performed By: #### A LLBG ####[facility] LABCLIA [id number] [place] [address] [place] Sodium [Moles/Vol] 148 mmol/L High 136-144 [facility] Comment on above: Order Comment: Speci men Type: ARTERIAL BLOOD SPECIMENOrdering Facility: [facility] Address: [address] [place] [address] Performed By: #### A LLBG ####[facility] LABCLIA [id number] [place] [address] [place] Base excess Calc (Bld) [Moles/Vol] 3 mmol/L High 0-2 [facility] Comment on above: Order Comment: Speci men Type: ARTERIAL BLOOD SPECIMENOrdering Facility: [facility] Address: [address] [place] [address] Performed By: #### A LLBG ####[facility] LABIA [id number] [place] [address] [place] Body temperature 98.6 [degF] Normal [facility] Comment on above: Order Comment: Speci men Type: ARTERIAL BLOOD SPECIMENOrdering Facility: [facility] Address: [address] [place] [address] Performed By: #### A LLBG ####[facility] LABIA [id number] [place] [address] [place] Calcium.ionized (Bld) [Mass/Vol] 1.24 mmol/L Normal 1.08-1.30 [facility] Comment on above: Order Comment: Speci men Type: ARTERIAL BLOOD SPECIMENOrdering Facility: [facility] Address: [address] [place] [address] Performed By: #### A LLBG ####[facility] LABIA [id number] [place] [address] [place] Calcium.ionized adjusted to pH 7.4 (BldA) [Moles/Vol] 1.22 mmol/L Normal 1.08-1.30 [facility] Comment on above: Order Comment: Speci men Type: ARTERIAL BLOOD SPECIMENOrdering Facility: [facility] Address: [address] [place] [address] Performed By: #### A LLBG ####[facility] LABCLIA [id number] [place] [address] [place] Carboxyhemoglobin (BldA) [Mass fraction] 1.1 % Normal 0.0-2.0 [facility] Comment on above: Order Comment: Speci men Type: ARTERIAL BLOOD SPECIMENOrdering Facility: [facility] Address: [address] [place] [address] Result Comment: Carb oxyhemoglobin Reference Range for Smokers: 2.0-8.0% Performed By: #### A LLBG ####[facility] LABCLIA [id number] [place] [address] [place] CO2 (Bld) [Partial pressure] 51 mm Hg High 36-46 [facility] Comment on above: Order Comment: Speci men Type: ARTERIAL BLOOD SPECIMENOrdering Facility: [facility] Address: [address] [place] [address] Performed By: #### A LLBG ####[facility] LABCLIA [id number] [place] [address] [place] FIO2 44 % Normal [facility] Comment on above: Order Comment: Speci men Type: ARTERIAL BLOOD SPECIMENOrdering Facility: [facility] Address: [address] [place] [address] Performed By: #### A LLBG ####[facility] LABCLIA [id number] [place] [address] [place] Glucose [Mass/Vol] 221 mg/dL High 60-105 [facility] Comment on above: Order Comment: Speci men Type: ARTERIAL BLOOD SPECIMENOrdering Facility: [facility] Address: [address] [place] [address] Performed By: #### A LLBG ####[facility] LABCLIA [id number] [place] [address] [place] HCO3 (Bld) [Moles/Vol] 29 mmol/L High 22-26 [facility] Comment on above: Order Comment: Speci men Type: ARTERIAL BLOOD SPECIMENOrdering Facility: [facility] Address: [address] [place] [address] Performed By: #### A LLBG ####[facility] LABCLIA [id number] [place] [address] [place] Hematocrit (Bld) [Volume fraction] 27.5 % Low 36.0-46.0 [facility] Comment on above: Order Comment: Speci men Type: ARTERIAL BLOOD SPECIMENOrdering Facility: [facility] Address: [address] [place] [address] Performed By: #### A LLBG ####[facility] LABCLIA [id number] [place] [address] [place] Hemoglobin (Bld) [Mass/Vol] 8.9 g/dL Low 11.5-15.5 [facility] Comment on above: Order Comment: Speci men Type: ARTERIAL BLOOD SPECIMENOrdering Facility: [facility] Address: [address] [place] [address] Performed By: #### A LLBG ####[facility] LABCLIA [id number] [place] [address] [place] Lactate [Moles/Vol] 0.9 mmol/L Normal 0.5-2.2 [facility] Comment on above: Order Comment: Speci men Type: ARTERIAL BLOOD SPECIMENOrdering Facility: [facility] Address: [address] [place] [address] Performed By: #### A LLBG ####[facility] LABCLIA [id number] [place] [address] [place] LITERS 25 Liters/min Normal [facility] Comment on above: Order Comment: Speci men Type: ARTERIAL BLOOD SPECIMENOrdering Facility: [facility] Address: [address] [place] [address] Performed By: #### A LLBG ####[facility] LABCLIA [id number] [place] [address] [place] Methemoglobin (Bld) [Mass fraction] 1.1 % Normal 0.0-1.5 [facility] Comment on above: Order Comment: Speci men Type: ARTERIAL BLOOD SPECIMENOrdering Facility: [facility] Address: [address] [place] [address] Performed By: #### A LLBG ####[facility] LABCLIA [id number] [place] [address] [place] O2 THERAPY Hi-Flow Nasal Cannula-Heated Normal [facility] Comment on above: Order Comment: Speci men Type: ARTERIAL BLOOD SPECIMENOrdering Facility: [facility] Address: [address] [place] [address] Performed By: #### A LLBG ####[facility] LABCLIA [id number] [place] [address] [place] Oxygen (Bld) [Partial pressure] 115 mm Hg High 85-95 [facility] Comment on above: Order Comment: Speci men Type: ARTERIAL BLOOD SPECIMENOrdering Facility: [facility] Address: [address] [place] [address] Performed By: #### A LLBG ####[facility] LABCLIA [id number] [place] [address] [place] Oxyhemoglobin (BldA) [Mass fraction] 96 % Normal 95-98 [facility] Comment on above: Order Comment: Speci men Type: ARTERIAL BLOOD SPECIMENOrdering Facility: [facility] Address: [address] [place] [address] Performed By: #### A LLBG ####[facility] LABCLIA [id number] [place] [address] [place] pH (Bld) 7.37 [pH] Normal 7.35-7.45 [facility] Comment on above: Order Comment: Speci men Type: ARTERIAL BLOOD SPECIMENOrdering Facility: [facility] Address: [address] [place] [address] Performed By: #### A LLBG ####[facility] LABCLIA [id number] [place] [address] [place] PO2 / FIO2 RATIO 261 mmHg Low >[address] [facility] [place] [facility] Comment on above: Order Comment: Speci men Type: ARTERIAL BLOOD SPECIMENOrdering Facility: [facility] Address: [address] [place] [address] Performed By: #### A LLBG ####[facility] LABCLIA [id number] [place] [address] [place] Potassium [Moles/Vol] 3.6 mmol/L Normal 3.5-5.[address] [facility] Comment on above: Order Comment: Speci men Type: ARTERIAL BLOOD SPECIMENOrdering Facility: [facility] Address: [address] [place] [address] Performed By: #### A LLBG ####[facility] LABCLIA [id number] [place] [address] [place] Sodium [Moles/Vol] 147 mmol/L High 136-144 [facility] Comment on above: Order Comment: Speci men Type: ARTERIAL BLOOD SPECIMENOrdering Facility: [facility] Address: [address] [place] [address] Performed By: #### A LLBG ####[facility] LABCLIA [id number] [place] [address] [place] Base excess Calc (Bld) [Moles/Vol] 1 mmol/L Normal 0-2 [facility] Comment on above: Order Comment: Speci men Type: ARTERIAL BLOOD SPECIMENOrdering Facility: [facility] Address: [address] [place] [address] Performed By: #### A LLBG ####[facility] LABIA [id number] [place] [address] [place] Body temperature 98.6 [degF] Normal [facility] Comment on above: Order Comment: Speci men Type: ARTERIAL BLOOD SPECIMENOrdering Facility: [facility] Address: [address] [place] [address] Performed By: #### A LLBG ####[facility] LABIA [id number] [place] [address] [place] Calcium.ionized (Bld) [Mass/Vol] 1.13 mmol/L Normal 1.08-1.30 [facility] Comment on above: Order Comment: Speci men Type: ARTERIAL BLOOD SPECIMENOrdering Facility: [facility] Address: [address] [place] [address] Performed By: #### A LLBG ####[facility] LABIA [id number] [place] [address] [place] Calcium.ionized adjusted to pH 7.4 (BldA) [Moles/Vol] 1.14 mmol/L Normal 1.08-1.30 [facility] Comment on above: Order Comment: Speci men Type: ARTERIAL BLOOD SPECIMENOrdering Facility: [facility] Address: [address] [place] [address] Performed By: #### A LLBG ####[facility] LABIA [id number] [place] [address] [place] Carboxyhemoglobin (BldA) [Mass fraction] 1.7 % Normal 0.0-2.0 [facility] Comment on above: Order Comment: Speci men Type: ARTERIAL BLOOD SPECIMENOrdering Facility: [facility] Address: [address] [place] [address] Result Comment: Carb oxyhemoglobin Reference Range for Smokers: 2.0-8.0% Performed By: #### A LLBG ####[facility] LABCLIA [id number] [place] [address] [place] CO2 (Bld) [Partial pressure] 40 mm Hg Normal 36-46 [facility] [facility] Comment on above: Order Comment: Speci men Type: ARTERIAL BLOOD SPECIMENOrdering Facility: [facility] Address: [address] [place] [address] Performed By: #### A LLBG ####[facility] LABCLIA [id number] [place] [address] [place] Glucose [Mass/Vol] 183 mg/dL High 60-105 [facility] Comment on above: Order Comment: Speci men Type: ARTERIAL BLOOD SPECIMENOrdering Facility: [facility] Address: [address] [place] [address] Performed By: #### A LLBG ####[facility] LABCLIA [id number] [place] [address] [place] HCO3 (Bld) [Moles/Vol] 25 mmol/L Normal 22-26 [facility] Comment on above: Order Comment: Speci men Type: ARTERIAL BLOOD SPECIMENOrdering Facility: [facility] Address: [address] [place] [address] Performed By: #### A LLBG ####[facility] LABCLIA [id number] [place] [address] [place] Hematocrit (Bld) [Volume fraction] 25.6 % Low 36.0-46.0 [facility] Comment on above: Order Comment: Speci men Type: ARTERIAL BLOOD SPECIMENOrdering Facility: [facility] Address: [address] [place] [address] Performed By: #### A LLBG ####[facility] LABCLIA [id number] [place] [address] [place] Hemoglobin (Bld) [Mass/Vol] 8.2 g/dL Low 11.5-15.5 [facility] Comment on above: Order Comment: Speci men Type: ARTERIAL BLOOD SPECIMENOrdering Facility: [facility] Address: [address] [place] [address] Performed By: #### A LLBG ####[facility] LABIA [id number] [place] [address] [place] Lactate [Moles/Vol] 1.0 mmol/L Normal 0.5-2.2 [facility] Comment on above: Order Comment: Speci men Type: ARTERIAL BLOOD SPECIMENOrdering Facility: [facility] Address: [address] [place] [address] Performed By: #### A LLBG ####[facility] LABIA [id number] [place] [address] [place] Methemoglobin (Bld) [Mass fraction] 0.7 % Normal 0.0-1.5 [facility] Comment on above: Order Comment: Speci men Type: ARTERIAL BLOOD SPECIMENOrdering Facility: [facility] Address: [address] [place] [address] Performed By: #### A LLBG ####[facility] LABIA [id number] [place] [address] [place] O2 THERAPY Hi-Flow Nasal Cannula-Heated Normal [facility] Comment on above: Order Comment: Speci men Type: ARTERIAL BLOOD SPECIMENOrdering Facility: [facility] Address: [address] [place] [address] Performed By: #### A LLBG ####[facility] LABIA [id number] [place] [address] [place] Oxygen (Bld) [Partial pressure] 98 mm Hg High 85-95 [facility] Comment on above: Order Comment: Speci men Type: ARTERIAL BLOOD SPECIMENOrdering Facility: [facility] Address: [address] [place] [address] Performed By: #### A LLBG ####[facility] LABCLIA [id number] [place] [address] [place] Oxyhemoglobin (BldA) [Mass fraction] 96 % Normal 95-98 [facility] Comment on above: Order Comment: Speci men Type: ARTERIAL BLOOD SPECIMENOrdering Facility: [facility] Address: [address] [place] [address] Performed By: #### A LLBG ####[facility] LABIA [id number] [place] [address] [place] pH (Bld) 7.42 [pH] Normal 7.35-7.45 [facility] Comment on above: Order Comment: Speci men Type: ARTERIAL BLOOD SPECIMENOrdering Facility: [facility] Address: [address] [place] [address] Performed By: #### A LLBG ####[facility] LABIA [id number] [place] [address] [place] Potassium [Moles/Vol] 3.3 mmol/L Low 3.5-5.[address] [facility] Comment on above: Order Comment: Speci men Type: ARTERIAL BLOOD SPECIMENOrdering Facility: [facility] Address: [address] [place] [address] Performed By: #### A LLBG ####[facility] LABIA [id number] [place] [address] [place] Sodium [Moles/Vol] 146 mmol/L High 136-144 [facility] Comment on above: Order Comment: Speci men Type: ARTERIAL BLOOD SPECIMENOrdering Facility: [facility] Address: [address] [place] [address] Performed By: #### A LLBG ####[facility] LABIA [id number] [place] [address] [place] Base excess Calc (Bld) [Moles/Vol] 1 mmol/L Normal 0-2 [facility] Comment on above: Order Comment: Speci men Type: ARTERIAL BLOOD SPECIMENOrdering Facility: [facility] Address: [address] [place] [address] Performed By: #### A LLBG ####[facility] LABIA [id number] [place] [address] [place] Body temperature 98.6 [degF] Normal [facility] Comment on above: Order Comment: Speci men Type: ARTERIAL BLOOD SPECIMENOrdering Facility: [facility] Address: [address] [place] [address] Performed By: #### A LLBG ####[facility] LABIA [id number] [place] [address] [place] Calcium.ionized (Bld) [Mass/Vol] 1.23 mmol/L Normal 1.08-1.30 [facility] Comment on above: Order Comment: Speci men Type: ARTERIAL BLOOD SPECIMENOrdering Facility: [facility] Address: [address] [place] [address] Performed By: #### A LLBG ####[facility] [id number] [place] [address] [place] Calcium.ionized adjusted to pH 7.4 (BldA) [Moles/Vol] 1.24 mmol/L Normal 1.08-1.30 [facility] Comment on above: Order Comment: Speci men Type: ARTERIAL BLOOD SPECIMENOrdering Facility: [facility] Address: [address] [place] [address] Performed By: #### A LLBG ####[facility] LABIA [id number] [place] [address] [place] Carboxyhemoglobin (BldA) [Mass fraction] 1.9 % Normal 0.0-2.0 [facility] Comment on above: Order Comment: Speci men Type: ARTERIAL BLOOD SPECIMENOrdering Facility: [facility] Address: [address] [place] [address] Result Comment: Carb oxyhemoglobin Reference Range for Smokers: 2.0-8.0% Performed By: #### A LLBG ####[facility] LABCLIA [id number] [place] [address] [place] CO2 (Bld) [Partial pressure] 41 mm Hg Normal 36-46 [facility] Comment on above: Order Comment: Speci men Type: ARTERIAL BLOOD SPECIMENOrdering Facility: [facility] Address: [address] [place] [address] Performed By: #### A LLBG ####[facility] LABCLIA [id number] [place] [address] [place] FIO2 30 % Normal [facility] Comment on above: Order Comment: Speci men Type: ARTERIAL BLOOD SPECIMENOrdering Facility: [facility] Address: [address] [place] [address] Performed By: #### A LLBG ####[facility] LABCLIA [id number] [place] [address] [place] Glucose [Mass/Vol] 211 mg/dL High 60-105 [facility] Comment on above: Order Comment: Speci men Type: ARTERIAL BLOOD SPECIMENOrdering Facility: [facility] Address: [address] [place] [address] Performed By: #### A LLBG ####[facility] LABCLIA [id number] [place] [address] [place] HCO3 (Bld) [Moles/Vol] 26 mmol/L Normal 22-26 [facility] Comment on above: Order Comment: Speci men Type: ARTERIAL BLOOD SPECIMENOrdering Facility: [facility] Address: [address] [place] [address] Performed By: #### A LLBG ####[facility] LABCLIA [id number] [place] [address] [place] Hematocrit (Bld) [Volume fraction] 27.2 % Low 36.0-46.0 [facility] Comment on above: Order Comment: Speci men Type: ARTERIAL BLOOD SPECIMENOrdering Facility: [facility] Address: [address] [place] [address] Performed By: #### A LLBG ####[facility] LABCLIA [id number] [place] [address] [place] Hemoglobin (Bld) [Mass/Vol] 8.7 g/dL Low 11.5-15.5 [facility] Comment on above: Order Comment: Speci men Type: ARTERIAL BLOOD SPECIMENOrdering Facility: [facility] Address: [address] [place] [address] Performed By: #### A LLBG ####[facility] LABIA [id number] [place] [address] [place] Lactate [Moles/Vol] 1.1 mmol/L Normal 0.5-2.2 [facility] Comment on above: Order Comment: Speci men Type: ARTERIAL BLOOD SPECIMENOrdering Facility: [facility] Address: [address] [place] [address] Performed By: #### A LLBG ####[facility] LABIA [id number] [place] [address] [place] Methemoglobin (Bld) [Mass fraction] 1.1 % Normal 0.0-1.5 [facility] Comment on above: Order Comment: Speci men Type: ARTERIAL BLOOD SPECIMENOrdering Facility: [facility] Address: [address] [place] [address] Performed By: #### A LLBG ####[facility] LABIA [id number] [place] [address] [place] O2 THERAPY Positive Normal [facility] Comment on above: Order Comment: Speci men Type: ARTERIAL BLOOD SPECIMENOrdering Facility: [facility] Address: [address] [place] [address] Performed By: #### A LLBG ####[facility] LABCLIA [id number] [place] [address] [place] Oxygen (Bld) [Partial pressure] 93 mm Hg Normal 85-95 [facility] Comment on above: Order Comment: Speci men Type: ARTERIAL BLOOD SPECIMENOrdering Facility: [facility] Address: [address] [place] [address] Performed By: #### A LLBG ####[facility] LABCLIA [id number] [place] [address] [place] Oxyhemoglobin (BldA) [Mass fraction] 95 % Normal 95-98 [facility] Comment on above: Order Comment: Speci men Type: ARTERIAL BLOOD SPECIMENOrdering Facility: [facility] Address: [address] [place] [address] Performed By: #### A LLBG ####[facility] LABCLIA [id number] [place] [address] [place] pH (Bld) 7.41 [pH] Normal 7.35-7.45 [facility] Comment on above: Order Comment: Speci men Type: ARTERIAL BLOOD SPECIMENOrdering Facility: [facility] Address: [address] [place] [address] Performed By: #### A LLBG ####[facility] LABCLIA [id number] [place] [address] [place] PO2 / FIO2 RATIO 310 mmHg Normal >[address] [facility] [place] [facility] Comment on above: Order Comment: Speci men Type: ARTERIAL BLOOD SPECIMENOrdering Facility: [facility] Address: [address] [place], [place] [address] Performed By: #### A LLBG ####[facility] LABCLIA [id number] [place] [id number] [place] Potassium [Moles/Vol] 4.0 mmol/L Normal 3.5-5.[address] [facility] Comment on above: Order Comment: Speci men Type: ARTERIAL BLOOD SPECIMENOrdering Facility: [facility] Address: [address] [place] [address] Performed By: #### A LLBG ####[facility] LABCLIA [id number] [place] [address] [place] Sodium [Moles/Vol] 145 mmol/L High 136-144 [facility] Comment on above: Order Comment: Speci men Type: ARTERIAL BLOOD SPECIMENOrdering Facility: [facility] Address: [address] [place] [address] Performed By: #### A LLBG ####[facility] LABCLIA [id number] [place] [address] [place] Base excess Calc (Bld) [Moles/Vol] 1 mmol/L Normal 0-2 [facility] Comment on above: Order Comment: Speci men Type: ARTERIAL BLOOD SPECIMENOrdering Facility: [facility] Address: [address] [place] [address] Performed By: #### A LLBG ####[facility] LABCLIA [id number] [place] [address] [place] Body temperature 98.6 [degF] Normal [facility] Comment on above: Order Comment: Speci men Type: ARTERIAL BLOOD SPECIMENOrdering Facility: [facility] Address: [address] [place] [address] Performed By: #### A LLBG ####[facility] LABCLIA [id number] [place] [address] [place] Calcium.ionized (Bld) [Mass/Vol] 1.24 mmol/L Normal 1.08-1.30 [facility] Comment on above: Order Comment: Speci men Type: ARTERIAL BLOOD SPECIMENOrdering Facility: [facility] Address: [address] [place] [address] Performed By: #### A LLBG ####[facility] LABCLIA [id number] [place] [address] [place] Calcium.ionized adjusted to pH 7.4 (BldA) [Moles/Vol] 1.25 mmol/L Normal 1.08-1.30 [facility] Comment on above: Order Comment: Speci men Type: ARTERIAL BLOOD SPECIMENOrdering Facility: [facility] Address: [address] [place] [address] Performed By: #### A LLBG ####[facility] LABCLIA [id number] [place] [address] [place] Carboxyhemoglobin (BldA) [Mass fraction] 2.0 % Normal 0.0-2.0 [facility] Comment on above: Order Comment: Speci men Type: ARTERIAL BLOOD SPECIMENOrdering Facility: [facility] Address: [address] [place] [address] Result Comment: Carb oxyhemoglobin Reference Range for Smokers: 2.0-8.0% Performed By: #### A LLBG ####[facility] LABCLIA [id number] [place] [address] [place] CO2 (Bld) [Partial pressure] 39 mm Hg Normal 36-46 [facility] Comment on above: Order Comment: Speci men Type: ARTERIAL BLOOD SPECIMENOrdering Facility: [facility] Address: [address] [place] [address] Performed By: #### A LLBG ####[facility] LABCLIA [id number] [place] [address] [place] FIO2 30 % Normal [facility] Comment on above: Order Comment: Speci men Type: ARTERIAL BLOOD SPECIMENOrdering Facility: [facility] Address: [address] [place] [address] Performed By: #### A LLBG ####[facility] LABCLIA [id number] [place] [address] [place] Glucose [Mass/Vol] 209 mg/dL High 60-105 [facility] Comment on above: Order Comment: Speci men Type: ARTERIAL BLOOD SPECIMENOrdering Facility: [facility] Address: [address] [place] [address] Performed By: #### A LLBG ####[facility] LABCLIA [id number] [place] [address] [place] HCO3 (Bld) [Moles/Vol] 25 mmol/L Normal 22-26 [facility] Comment on above: Order Comment: Speci men Type: ARTERIAL BLOOD SPECIMENOrdering Facility: [facility] Address: [address] [place] [address] Performed By: #### A LLBG ####[facility] LABIA [id number] [place] [address] [place] Hematocrit (Bld) [Volume fraction] 26.9 % Low 36.0-46.0 [facility] Comment on above: Order Comment: Speci men Type: ARTERIAL BLOOD SPECIMENOrdering Facility: [facility] Address: [address] [place] [address] Performed By: #### A LLBG ####[facility] LABIA [id number] [place] [address] [place] Hemoglobin (Bld) [Mass/Vol] 8.7 g/dL Low 11.5-15.5 [facility] Comment on above: Order Comment: Speci men Type: ARTERIAL BLOOD SPECIMENOrdering Facility: [facility] Address: [address] [place] [address] Performed By: #### A LLBG ####[facility] LABIA [id number] [place] [address] [place] Lactate [Moles/Vol] 1.1 mmol/L Normal 0.5-2.2 [facility] Comment on above: Order Comment: Speci men Type: ARTERIAL BLOOD SPECIMENOrdering Facility: [facility] Address: [address] [place] [address] Performed By: #### A LLBG ####[facility] LABCLIA [id number] [place] [id number] [place] Methemoglobin (Bld) [Mass fraction] 0.8 % Normal 0.0-1.5 [facility] Comment on above: Order Comment: Speci men Type: ARTERIAL BLOOD SPECIMENOrdering Facility: [facility] Address: [address] [place] [address] Performed By: #### A LLBG ####[facility] LABCLIA [id number] [place] [address] [place] O2 THERAPY Positive Normal [facility] Comment on above: Order Comment: Speci men Type: ARTERIAL BLOOD SPECIMENOrdering Facility: [facility] Address: [address] [place] [address] Performed By: #### A LLBG ####[facility] LABIA [id number] [place] [address] [place] Oxygen (Bld) [Partial pressure] 113 mm Hg High 85-95 [facility] Comment on above: Order Comment: Speci men Type: ARTERIAL BLOOD SPECIMENOrdering Facility: [facility] Address: [address] [place], [place] [address] Performed By: #### A LLBG ####[facility] LABCLIA [id number] [place] [address] [place] Oxyhemoglobin (BldA) [Mass fraction] 96 % Normal 95-98 [facility] Comment on above: Order Comment: Speci men Type: ARTERIAL BLOOD SPECIMENOrdering Facility: [facility] Address: [address] [place], [place] [id number] Performed By: #### A LLBG ####[facility] LABCLIA [id number] [place] [id number] [place] pH (Bld) 7.41 [pH] Normal 7.35-7.45 [facility] Comment on above: Order Comment: Speci men Type: ARTERIAL BLOOD SPECIMENOrdering Facility: [facility] Address: [address] [place] [address] Performed By: #### A LLBG ####[facility] LABCLIA [id number] [place] [address] [place] PO2 / FIO2 RATIO 377 mmHg Normal >[address] [facility] [place] [facility] Comment on above: Order Comment: Speci men Type: ARTERIAL BLOOD SPECIMENOrdering Facility: [facility] Address: [address] [place] [address] Performed By: #### A LLBG ####[facility] LABCLIA [id number] [place] [address] [place] Potassium [Moles/Vol] 4.1 mmol/L Normal 3.5-5.[address] [facility] Comment on above: Order Comment: Speci men Type: ARTERIAL BLOOD SPECIMENOrdering Facility: [facility] Address: [address] [place] [address] Performed By: #### A LLBG ####[facility] LABCLIA [id number] [place] [address] [place] Sodium [Moles/Vol] 147 mmol/L High 136-144 [facility] Comment on above: Order Comment: Speci men Type: ARTERIAL BLOOD SPECIMENOrdering Facility: [facility] Address: [address] [place] [address] Performed By: #### A LLBG ####[facility] LABCLIA [id number] [place] [address] [place] Base excess Calc (Bld) [Moles/Vol] 1 mmol/L Normal 0-2 [facility] Comment on above: Order Comment: Speci men Type: ARTERIAL BLOOD SPECIMENOrdering Facility: [facility] Address: [address] [place] [address] Performed By: #### A LLBG ####[facility] LABCLIA [id number] [place] [address] [place] Body temperature 98.6 [degF] Normal [facility] Comment on above: Order Comment: Speci men Type: ARTERIAL BLOOD SPECIMENOrdering Facility: [facility] Address: [address] [place] [address] Performed By: #### A LLBG ####[facility] LABCLIA [id number] [place] [address] [place] Calcium.ionized (Bld) [Mass/Vol] 1.21 mmol/L Normal 1.08-1.30 [facility] Comment on above: Order Comment: Speci men Type: ARTERIAL BLOOD SPECIMENOrdering Facility: [facility] Address: [address] [place] [address] Performed By: #### A LLBG ####[facility] LABCLIA [id number] [place] [address] [place] Calcium.ionized adjusted to pH 7.4 (BldA) [Moles/Vol] 1.21 mmol/L Normal 1.08-1.30 [facility] Comment on above: Order Comment: Speci men Type: ARTERIAL BLOOD SPECIMENOrdering Facility: [facility] Address: [address] [place] [address] Performed By: #### A LLBG ####[facility] LABCLIA [id number] [place] [address] [place] Carboxyhemoglobin (BldA) [Mass fraction] 2.1 % High 0.0-2.0 [facility] Comment on above: Order Comment: Speci men Type: ARTERIAL BLOOD SPECIMENOrdering Facility: [facility] Address: [address] [place] [address] Result Comment: Carb oxyhemoglobin Reference Range for Smokers: 2.0-8.0% Performed By: #### A LLBG ####[facility] LABCLIA [id number] [place] [address] [place] CO2 (Bld) [Partial pressure] 41 mm Hg Normal 36-46 [facility] Comment on above: Order Comment: Speci men Type: ARTERIAL BLOOD SPECIMENOrdering Facility: [facility] Address: [address] [place] [address] Performed By: #### A LLBG ####[facility] LABCLIA [id number] [place] [address] [place] FIO2 30 % Normal [facility] Comment on above: Order Comment: Speci men Type: ARTERIAL BLOOD SPECIMENOrdering Facility: [facility] Address: [address] [place] [address] Performed By: #### A LLBG ####[facility] LABCLIA [id number] [place] [address] [place] Glucose [Mass/Vol] 204 mg/dL High 60-105 [facility] Comment on above: Order Comment: Speci men Type: ARTERIAL BLOOD SPECIMENOrdering Facility: [facility] Address: [address] [place] [address] Performed By: #### A LLBG ####[facility] LABCLIA [id number] [place] [address] [place] HCO3 (Bld) [Moles/Vol] 25 mmol/L Normal 22-26 [facility] Comment on above: Order Comment: Speci men Type: ARTERIAL BLOOD SPECIMENOrdering Facility: [facility] Address: [address] [place] [address] Performed By: #### A LLBG ####[facility] LABCLIA [id number] [place] [address] [place] Hematocrit (Bld) [Volume fraction] 26.9 % Low 36.0-46.0 [facility] Comment on above: Order Comment: Speci men Type: ARTERIAL BLOOD SPECIMENOrdering Facility: [facility] Address: [address] [place] [address] Performed By: #### A LLBG ####[facility] LABCLIA [id number] [place] [address] [place] Hemoglobin (Bld) [Mass/Vol] 8.7 g/dL Low 11.5-15.5 [facility] Comment on above: Order Comment: Speci men Type: ARTERIAL BLOOD SPECIMENOrdering Facility: [facility] Address: [address] [place] [address] Performed By: #### A LLBG ####[facility] LABCLIA [id number] [place] [address] [place] Lactate [Moles/Vol] 1.1 mmol/L Normal 0.5-2.2 [facility] Comment on above: Order Comment: Speci men Type: ARTERIAL BLOOD SPECIMENOrdering Facility: [facility] Address: [address] [place] [address] Performed By: #### A LLBG ####[facility] LABCLIA [id number] [place] [address] [place] Methemoglobin (Bld) [Mass fraction] 0.8 % Normal 0.0-1.5 [facility] Comment on above: Order Comment: Speci men Type: ARTERIAL BLOOD SPECIMENOrdering Facility: [facility] Address: [address] [place] [address] Performed By: #### A LLBG ####[facility] LABIA [id number] [place] [address] [place] O2 THERAPY Positive Normal [facility] Comment on above: Order Comment: Speci men Type: ARTERIAL BLOOD SPECIMENOrdering Facility: [facility] Address: [address] [place] [address] Performed By: #### A LLBG ####[facility] LABCLIA [id number] [place] [address] [place] Oxygen (Bld) [Partial pressure] 91 mm Hg Normal 85-95 [facility] Comment on above: Order Comment: Speci men Type: ARTERIAL BLOOD SPECIMENOrdering Facility: [facility] Address: [address] [place] [address] Performed By: #### A LLBG ####[facility] LABCLIA [id number] [place] [address] [place] Oxyhemoglobin (BldA) [Mass fraction] 95 % Normal 95-98 [facility] Comment on above: Order Comment: Speci men Type: ARTERIAL BLOOD SPECIMENOrdering Facility: [facility] Address: [address] [place] [address] Performed By: #### A LLBG ####[facility] LABCLIA [id number] [place] [address] [place] pH (Bld) 7.40 [pH] Normal 7.35-7.45 [facility] Comment on above: Order Comment: Speci men Type: ARTERIAL BLOOD SPECIMENOrdering Facility: [facility] Address: [address] [place] [address] Performed By: #### A LLBG ####[facility] LABIA [id number] [place] [address] [place] PO2 / FIO2 RATIO 303 mmHg Normal >[address] [facility] [place] [facility] Comment on above: Order Comment: Speci men Type: ARTERIAL BLOOD SPECIMENOrdering Facility: [facility] Address: [address] [place] [address] Performed By: #### A LLBG ####[facility] LABIA [id number] [place] [address] [place] Potassium [Moles/Vol] 4.2 mmol/L Normal 3.5-5.[address] [facility] Comment on above: Order Comment: Speci men Type: ARTERIAL BLOOD SPECIMENOrdering Facility: [facility] Address: [address] [place] [address] Performed By: #### A LLBG ####[facility] LABIA [id number] [place] [address] [place] Sodium [Moles/Vol] 145 mmol/L High 136-144 [facility] Comment on above: Order Comment: Speci men Type: ARTERIAL BLOOD SPECIMENOrdering Facility: [facility] Address: [address] [place] [address] Performed By: #### A LLBG ####[facility] LABCLIA [id number] [place] [address] [place] Base excess Calc (Bld) [Moles/Vol] 1 mmol/L Normal 0-2 [facility] Comment on above: Order Comment: Speci men Type: ARTERIAL BLOOD SPECIMENOrdering Facility: [facility] Address: [address] [place] [address] Performed By: #### A LLBG ####[facility] LABIA [id number] [place] [address] [place] Body temperature 98.6 [degF] Normal [facility] Comment on above: Order Comment: Speci men Type: ARTERIAL BLOOD SPECIMENOrdering Facility: [facility] Address: [address] [place] [address] Performed By: #### A LLBG ####[facility] LABIA [id number] [place] [address] [place] Calcium.ionized (Bld) [Mass/Vol] 1.19 mmol/L Normal 1.08-1.30 [facility] Comment on above: Order Comment: Speci men Type: ARTERIAL BLOOD SPECIMENOrdering Facility: [facility] Address: [address] [place] [address] Performed By: #### A LLBG ####[facility] LABIA [id number] [place] [address] [place] Calcium.ionized adjusted to pH 7.4 (BldA) [Moles/Vol] 1.20 mmol/L Normal 1.08-1.30 [facility] Comment on above: Order Comment: Speci men Type: ARTERIAL BLOOD SPECIMENOrdering Facility: [facility] Address: [address] [place] [address] Performed By: #### A LLBG ####[facility] LABCLIA [id number] [place] [address] [place] Carboxyhemoglobin (BldA) [Mass fraction] 1.6 % Normal 0.0-2.0 [facility] Comment on above: Order Comment: Speci men Type: ARTERIAL BLOOD SPECIMENOrdering Facility: [facility] Address: [address] [place] [address] Result Comment: Carb oxyhemoglobin Reference Range for Smokers: 2.0-8.0% Performed By: #### A LLBG ####[facility] LABCLIA [id number] [place] [address] [place] CO2 (Bld) [Partial pressure] 40 mm Hg Normal 36-46 [facility] Comment on above: Order Comment: Speci men Type: ARTERIAL BLOOD SPECIMENOrdering Facility: [facility] Address: [address] [place] [address] Performed By: #### A LLBG ####[facility] LABIA [id number] [place] [address] [place] FIO2 30 % Normal [facility] Comment on above: Order Comment: Speci men Type: ARTERIAL BLOOD SPECIMENOrdering Facility: [facility] Address: [address] [place] [address] Performed By: #### A LLBG ####[facility] LABCLIA [id number] [place] [address] [place] Glucose [Mass/Vol] 213 mg/dL High 60-105 [facility] Comment on above: Order Comment: Speci men Type: ARTERIAL BLOOD SPECIMENOrdering Facility: [facility] Address: [address] [place] [address] Performed By: #### A LLBG ####[facility] LABCLIA [id number] [place] [address] [place] HCO3 (Bld) [Moles/Vol] 25 mmol/L Normal 22-26 [facility] Comment on above: Order Comment: Speci men Type: ARTERIAL BLOOD SPECIMENOrdering Facility: [facility] Address: [address] [place] [address] Performed By: #### A LLBG ####[facility] LABCLIA [id number] [place] [address] [place] Hematocrit (Bld) [Volume fraction] 26.8 % Low 36.0-46.0 [facility] Comment on above: Order Comment: Speci men Type: ARTERIAL BLOOD SPECIMENOrdering Facility: [facility] Address: [address] [place] [address] Performed By: #### A LLBG ####[facility] LABIA [id number] [place] [address] [place] Hemoglobin (Bld) [Mass/Vol] 8.6 g/dL Low 11.5-15.5 [facility] Comment on above: Order Comment: Speci men Type: ARTERIAL BLOOD SPECIMENOrdering Facility: [facility] Address: [address] [place] [address] Performed By: #### A LLBG ####[facility] LABIA [id number] [place] [address] [place] Lactate [Moles/Vol] 1.1 mmol/L Normal 0.5-2.2 [facility] Comment on above: Order Comment: Speci men Type: ARTERIAL BLOOD SPECIMENOrdering Facility: [facility] Address: [address] [place] [address] Performed By: #### A LLBG ####[facility] LABIA [id number] [place] [address] [place] Methemoglobin (Bld) [Mass fraction] 0.3 % Normal 0.0-1.5 [facility] Comment on above: Order Comment: Speci men Type: ARTERIAL BLOOD SPECIMENOrdering Facility: [facility] Address: [address] [place], [place] [id number] Performed By: #### A LLBG ####[facility] LABCLIA [id number] [place] [id number] [place] O2 THERAPY Positive Normal [facility] Comment on above: Order Comment: Speci men Type: ARTERIAL BLOOD SPECIMENOrdering Facility: [facility] Address: [address] [place] [address] Performed By: #### A LLBG ####[facility] LABCLIA [id number] [place] [id number] [place] Oxygen (Bld) [Partial pressure] 94 mm Hg Normal 85-95 [facility] Comment on above: Order Comment: Speci men Type: ARTERIAL BLOOD SPECIMENOrdering Facility: [facility] Address: [address] [place] [address] Performed By: #### A LLBG ####[facility] LABCLIA [id number] [place] [id number] [place] Oxyhemoglobin (BldA) [Mass fraction] 96 % Normal 95-98 [facility] Comment on above: Order Comment: Speci men Type: ARTERIAL BLOOD SPECIMENOrdering Facility: [facility] Address: [address] [place], [place] [address] Performed By: #### A LLBG ####[facility] LABIA [id number] [place] [id number] [place] pH (Bld) 7.41 [pH] Normal 7.35-7.45 [facility] Comment on above: Order Comment: Speci men Type: ARTERIAL BLOOD SPECIMENOrdering Facility: [facility] Address: [address] [place], [place] [address] Performed By: #### A LLBG ####[facility] LABCLIA [id number] [address] [address] [place] PO2 / FIO2 RATIO 313 mmHg Normal >[address] [facility] [place] Comment on above: Order Comment: Speci men Type: ARTERIAL BLOOD SPECIMENOrdering Facility: [facility] Address: [address] [place] [address] Performed By: #### A LLBG ####[facility] LABCLIA [id number] [place] [address] [place] Potassium [Moles/Vol] 3.9 mmol/L Normal 3.5-5.[address] [facility] Comment on above: Order Comment: Speci men Type: ARTERIAL BLOOD SPECIMENOrdering Facility: [facility] Address: [address] [place] [address] Performed By: #### A LLBG ####[facility] LABCLIA [id number] [place] [address] [place] Sodium [Moles/Vol] 144 mmol/L Normal 136-144 [facility] Comment on above: Order Comment: Speci men Type: ARTERIAL BLOOD SPECIMENOrdering Facility: [facility] Address: [address] [place] [address] Performed By: #### A LLBG ####[facility] LABCLIA [id number] [place] [address] [place] Order Comment: Speci men Type: BLOOD SPECIMENOrdering Facility: [facility] Address: [address] [place] [address] Performed By: #### 2 4323-8 ####[facility] LABCLIA [id number] [place] [address] [place] CASE MGT INIT ASSESon 2023 CASE MGT INIT ASSES Normal [facility] CBC panel Auto (Bld)on 11-01 Erythrocyte distribution width (RBC) [Ratio] 14.6 % Normal 11.5-15.0 [facility] Comment on above: Order Comment: Speci men Type: BLOOD SPECIMENOrdering Facility: [facility] Address: [address] [place] [address] Performed By: #### 5 8410-2 ####[facility] LABIA [id number] [place] [address] [place] Hematocrit (Bld) [Volume fraction] 26.2 % Low 36.0-46.0 [facility] Comment on above: Order Comment: Speci men Type: BLOOD SPECIMENOrdering Facility: [facility] Address: [address] [place] [address] Performed By: #### 5 8410-2 ####[facility] LABIA [id number] [place] [address] [place] Hemoglobin (Bld) [Mass/Vol] 8.5 g/dL Low 11.5-15.5 [facility] Comment on above: Order Comment: Speci men Type: BLOOD SPECIMENOrdering Facility: [facility] Address: [address] [place] [address] Performed By: #### 5 8410-2 ####[facility] LABIA [id number] [place] [address] [place] MCH (RBC) [Entitic mass] 32.6 pg Normal 26.0-34.0 [facility] Comment on above: Order Comment: Speci men Type: BLOOD SPECIMENOrdering Facility: [facility] Address: [address] [place] [address] Performed By: #### 5 8410-2 ####[facility] LABIA [id number] [place] [address] [place] MCHC (RBC) [Mass/Vol] 32.4 g/dL Normal 30.5-36.[address] [facility] Comment on above: Order Comment: Speci men Type: BLOOD SPECIMENOrdering Facility: [facility] Address: [address] [place] [address] Performed By: #### 5 8410-2 ####[facility] [id number] [place] [address] [place] MCV (RBC) [Entitic vol] 100.4 fL High 80.0-100.0 [facility] Comment on above: Order Comment: Speci men Type: BLOOD SPECIMENOrdering Facility: [facility] Address: [address] [place] [address] Performed By: #### 5 8410-2 ####[facility] LABIA [id number] [place] [address] [place] Nucleated RBC (Bld) [#/Vol] 10*3/uL Normal <0.01 [facility] Comment on above: Order Comment: Speci men Type: BLOOD SPECIMENOrdering Facility: [facility] Address: [address] [place] [address] Performed By: #### 5 8410-2 ####[facility] LABIA [id number] [place] [address] [place] Platelet mean volume (Bld) [Entitic vol] 9.1 fL Normal 9.0-12.7 [facility] Comment on above: Order Comment: Speci men Type: BLOOD SPECIMENOrdering Facility: [facility] Address: [address] [place] [address] Performed By: #### 5 8410-2 ####[facility] LABIA [id number] [place] [address] [place] Platelets (Bld) [#/Vol] 203 10*3/uL Normal 150-400 [facility] Comment on above: Order Comment: Speci men Type: BLOOD SPECIMENOrdering Facility: [facility] Address: [address] [place] [address] Performed By: #### 5 8410-2 ####[facility] LABCLIA [id number] [place] [address] [place] RBC (Bld) [#/Vol] 2.61 10*6/uL Low 3.90-5.20 [facility] Comment on above: Order Comment: Speci men Type: BLOOD SPECIMENOrdering Facility: [facility] Address: [address] [place] [address] Performed By: #### 5 8410-2 ####[facility] LABCLIA [id number] [place] [address] [place] WBC (Bld) [#/Vol] 6.26 10*3/uL Normal 3.70-11.00 [facility] Comment on above: Order Comment: Speci men Type: BLOOD SPECIMENOrdering Facility: [facility] Address: [address] [place] [address] Performed By: #### 5 8410-2 ####[facility] LABCLIA [id number] [place] [address] [place] CONSULTon 11-02-2023 CONSULT Normal [facility] metabolic 2000 panelon 11-02-2023 Albumin [Mass/Vol] 3.1 g/dL Low 3.9-4.9 [facility] Comment on above: Order Comment: Speci men Type: BLOOD SPECIMENOrdering Facility: [facility] Address: [address] [place] [address] Performed By: #### 2 4323-8 ####[facility] LABCLIA [id number] [place] [id number] [place] ALP [Catalytic activity/Vol] 56 U/L Normal 34-123 [facility] Comment on above: Order Comment: Speci men Type: BLOOD SPECIMENOrdering Facility: [facility] Address: [address] [place], [place] [address] Performed By: #### 2 4323-8 ####[facility] LABCLIA [id number] [place] [id number] [place] ALT [Catalytic activity/Vol] 26 U/L Normal 7-38 [facility] Comment on above: Order Comment: Speci men Type: BLOOD SPECIMENOrdering Facility: [facility] Address: [address] [place] [address] Performed By: #### 2 4323-8 ####[facility] LABCLIA [id number] [place] [address] [place] Anion gap [Moles/Vol] 16 mmol/L High 8-[address] [facility] Comment on above: Order Comment: Speci men Type: BLOOD SPECIMENOrdering Facility: [facility] Address: [address] [place] [address] Performed By: #### 2 4323-8 ####[facility] LABCLIA [id number] [place] [address] [place] AST [Catalytic activity/Vol] 25 U/L Normal 13-35 [facility] Comment on above: Order Comment: Speci men Type: BLOOD SPECIMENOrdering Facility: [facility] Address: [address] [place] [address] Performed By: #### 2 4323-8 ####[facility] LABCLIA [id number] [place] [address] [place] Bilirubin [Mass/Vol] 0.7 mg/dL Normal 0.2-1.3 [facility] Comment on above: Order Comment: Speci men Type: BLOOD SPECIMENOrdering Facility: [facility] Address: [address] [place] [address] Performed By: #### 2 4323-8 ####[facility] LABCLIA [id number] [place] [address] [place] Calcium [Mass/Vol] 8.9 mg/dL Normal 8.5-10.2 [facility] Comment on above: Order Comment: Speci men Type: BLOOD SPECIMENOrdering Facility: [facility] Address: [address] [place] [address] Performed By: #### 2 4323-8 ####[facility] LABCLIA [id number] [place] [address] [place] Chloride [Moles/Vol] 105 mmol/L Normal 98-107 [facility] Comment on above: Order Comment: Speci men Type: BLOOD SPECIMENOrdering Facility: [facility] Address: [address] [place] [address] Performed By: #### 2 4323-8 ####[facility] LABCLIA [id number] [place] [address] [place] CO2 [Moles/Vol] 23 mmol/L Normal 22-30 [facility] Comment on above: Order Comment: Speci men Type: BLOOD SPECIMENOrdering Facility: [facility] Address: [address] [place] [address] Performed By: #### 2 4323-8 ####[facility] LABIA [id number] [address] [place] OF [facility] Creatinine [Mass/Vol] 1.36 mg/dL High 0.58-0.[address] [facility] Comment on above: Order Comment: Speci men Type: BLOOD SPECIMENOrdering Facility: [facility] Address: [address] [place] [address] Performed By: #### 2 4323-8 ####[facility] LABIA [id number] [address] Creatinine and Glomerular filtration rate.predicted panel (S/P/Bld) 44 mL/min/1.73m??? Low >=60 [facility] Comment on above: Order Comment: Speci men Type: BLOOD SPECIMENOrdering Facility: [facility] Address: [address] [place] [address] Result Comment: Malorie mated Glomerular Filtration Rate (eGFR) is calculated using the 2020 CKD-EPI creatinine equation. This equation utilizes serum creatinine, sex, and age as parameters. The creatinine assay has traceable calibration to isotope dilution-mass spectrometry. Refer to KDIGO guidelines for clinical interpretation. In patients with unstable renal function, e.g. those with acute kidney injury, the eGFR may not accurately reflect actual GFR. Performed By: #### 2 4323-8 ####[facility] LABCLIA [id number] [place] [address] [place] Glucose [Mass/Vol] 204 mg/dL High 74-99 [facility] Comment on above: Order Comment: Speci men Type: BLOOD SPECIMENOrdering Facility: [facility] Address: [address] [place] [address] Result Comment: The [place] [employer] (ADA) provides guidance for cutoff values for fasting glucose and random glucose. The ADA defines fasting as no caloric intake for at least 8 hours. Fasting plasma glucose results between 100 to 125 mg/dL indicate increased risk for diabetes (prediabetes).Fasting plasma glucose results greater than or equal to 126 mg/dL meet the criteria for diagnosis of diabetes. In the absence of unequivocal hyperglycemia, results should be confirmed by repeat testing. In a patient with classic symptoms of hyperglycemia or hyperglycemic crisis, random plasma glucose results greater than or equal to 200 mg/dL meet the criteria for diagnosis of diabetes.Reference: Standards of Medical Care in Diabetes 2016, [place] [employer]. Diabetes Care. 2016.39(Suppl 1). Performed By: #### 2 4323-8 ####[facility] LABIA [id number] [place] [address] [place] Potassium [Moles/Vol] 4.0 mmol/L Normal 3.7-5.[address] [facility] Comment on above: Order Comment: Speci men Type: BLOOD SPECIMENOrdering Facility: [facility] Address: [address] [place] [address] Performed By: #### 2 4323-8 ####[facility] LABIA [id number] [place] [address] [place] Protein [Mass/Vol] 5.9 g/dL Low 6.3-8.0 [facility] Comment on above: Order Comment: Speci men Type: BLOOD SPECIMENOrdering Facility: [facility] Address: [address] [place] [address] Performed By: #### 2 4323-8 ####[facility] LABIA [id number] [place] [address] [place] Urea nitrogen [Mass/Vol] 52 mg/dL High 7-21 [facility] Comment on above: Order Comment: Speci men Type: BLOOD SPECIMENOrdering Facility: [facility] Address: [address] [place] [address] Performed By: #### 2 4323-8 ####[facility] LABCLIA [id number] [place] [address] [place] [id number] 11-02-2023 ECG01 Normal [facility] NUTRITIONon 11-02-2023 NUTRITION Normal [facility] THERAPY NTon 11-02-2023 THERAPY NT Normal [facility] THERAPY NT Normal [facility] NT Normal [facility] XR CHEST 1V FRONTALon 2023 XR CHEST 1V FRONTAL Normal [facility] XR CHEST 1V FRONTAL PORTon 0 11-02-2023 XR CHEST 1V FRONTAL PORT Normal [facility] ARTERIAL BLOOD GASESon 10-31 Base excess Calc (Bld) [Moles/Vol] 0 mmol/L Normal 0-2 [facility] Comment on above: Order Comment: Speci men Type: ARTERIAL BLOOD SPECIMENOrdering Facility: [facility] Address: [address] [place] [address] Performed By: #### A LLBG ####[facility] LABIA [id number] [place] [address] [place] Body temperature 98.6 [degF] Normal [facility] Comment on above: Order Comment: Speci men Type: ARTERIAL BLOOD SPECIMENOrdering Facility: [facility] Address: [address] [place] [address] Performed By: #### A LLBG ####[facility] LABCLIA [id number] [place] [address] [place] Calcium.ionized (Bld) [Mass/Vol] 1.20 mmol/L Normal 1.08-1.30 [facility] Comment on above: Order Comment: Speci men Type: ARTERIAL BLOOD SPECIMENOrdering Facility: [facility] Address: [address] [place] [address] Performed By: #### A LLBG ####[facility] LABIA [id number] [place] [address] [place] Calcium.ionized adjusted to pH 7.4 (BldA) [Moles/Vol] 1.20 mmol/L Normal 1.08-1.30 [facility] Comment on above: Order Comment: Speci men Type: ARTERIAL BLOOD SPECIMENOrdering Facility: [facility] Address: [address] [place] [address] Performed By: #### A LLBG ####[facility] LABIA [id number] [place] [address] [place] [place] Carboxyhemoglobin (BldA) [Mass fraction] 1.9 % Normal 0.0-2.0 [facility] Comment on above: Order Comment: Speci men Type: ARTERIAL BLOOD SPECIMENOrdering Facility: [facility] Address: [address] [place] [address] Result Comment: Carb oxyhemoglobin Reference Range for Smokers: 2.0-8.0% Performed By: #### A LLBG ####[facility] LABIA [id number] [place] [address] [place] CO2 (Bld) [Partial pressure] 39 mm Hg Normal 36-46 [facility] Comment on above: Order Comment: Speci men Type: ARTERIAL BLOOD SPECIMENOrdering Facility: [facility] Address: [address] [place] [address] Performed By: #### A LLBG ####[facility] LABIA [id number] [place] [address] [place] FIO2 30 % Normal [facility] Comment on above: Order Comment: Speci men Type: ARTERIAL BLOOD SPECIMENOrdering Facility: [facility] Address: [address] [place] [address] Performed By: #### A LLBG ####[facility] LABCLIA [id number] [place] [address] [place] Glucose [Mass/Vol] 211 mg/dL High 60-105 [facility] Comment on above: Order Comment: Speci men Type: ARTERIAL BLOOD SPECIMENOrdering Facility: [facility] Address: [address] [place] [address] Performed By: #### A LLBG ####[facility] LABCLIA [id number] [place] [address] [place] HCO3 (Bld) [Moles/Vol] 24 mmol/L Normal 22-26 [facility] Comment on above: Order Comment: Speci men Type: ARTERIAL BLOOD SPECIMENOrdering Facility: [facility] Address: [address] [place] [address] Performed By: #### A LLBG ####[facility] LABCLIA [id number] [place] [address] [place] Hematocrit (Bld) [Volume fraction] 27.0 % Low 36.0-46.0 [facility] Comment on above: Order Comment: Speci men Type: ARTERIAL BLOOD SPECIMENOrdering Facility: [facility] Address: [address] [place] [address] Performed By: #### A LLBG ####[facility] LABCLIA [id number] [place] [address] [place] Hemoglobin (Bld) [Mass/Vol] 8.7 g/dL Low 11.5-15.5 [facility] Comment on above: Order Comment: Speci men Type: ARTERIAL BLOOD SPECIMENOrdering Facility: [facility] Address: [address] [place] [address] Performed By: #### A LLBG ####[facility] LABCLIA [id number] [place] [address] [place] Lactate [Moles/Vol] 1.0 mmol/L Normal 0.5-2.2 [facility] Comment on above: Order Comment: Speci men Type: ARTERIAL BLOOD SPECIMENOrdering Facility: [facility] Address: [address] [id number] Performed By: #### A LLBG ####[facility] LABCLIA [id number] [address] [address] [place] Methemoglobin (Bld) [Mass fraction] 0.4 % Normal 0.0-1.5 [facility] Comment on above: Order Comment: Speci men Type: ARTERIAL BLOOD SPECIMENOrdering Facility: [facility] Address: [address] [id number] Performed By: #### A LLBG ####[facility] LABCLIA [id number] [place] [address] [place] O2 THERAPY Positive Normal [facility] Comment on above: Order Comment: Speci men Type: ARTERIAL BLOOD SPECIMENOrdering Facility: [facility] Address: [address] [place], [place] [id number] Performed By: #### A LLBG ####[facility] LABCLIA [id number] [place] [address] [place] Oxygen (Bld) [Partial pressure] 95 mm Hg Normal 85-95 [facility] Comment on above: Order Comment: Speci men Type: ARTERIAL BLOOD SPECIMENOrdering Facility: [facility] Address: [address] [id number] Performed By: #### A LLBG ####[facility] LABCLIA [id number] [address] [address] [place] Oxyhemoglobin (BldA) [Mass fraction] 96 % Normal 95-98 [facility] Comment on above: Order Comment: Speci men Type: ARTERIAL BLOOD SPECIMENOrdering Facility: [facility] Address: [address] [id number] Performed By: #### A LLBG ####[facility] LABCLIA [id number] [place] [address] [place] pH (Bld) 7.40 [pH] Normal 7.35-7.45 [facility] Comment on above: Order Comment: Speci men Type: ARTERIAL BLOOD SPECIMENOrdering Facility: [facility] Address: [address] [place] [address] Performed By: #### A LLBG ####[facility] LABCLIA [id number] [place] [address] [place] PO2 / FIO2 RATIO 317 mmHg Normal >[address] [facility] [place] [facility] Comment on above: Order Comment: Speci men Type: ARTERIAL BLOOD SPECIMENOrdering Facility: [facility] Address: [address] [place] [address] Performed By: #### A LLBG ####[facility] LABCLIA [id number] [place] [address] [place] Potassium [Moles/Vol] 3.9 mmol/L Normal 3.5-5.[address] [facility] Comment on above: Order Comment: Speci men Type: ARTERIAL BLOOD SPECIMENOrdering Facility: [facility] Address: [address] [place] [address] Performed By: #### A LLBG ####[facility] LABCLIA [id number] [place] [address] [place] Sodium [Moles/Vol] 144 mmol/L Normal 136-144 [facility] Comment on above: Order Comment: Speci men Type: ARTERIAL BLOOD SPECIMENOrdering Facility: [facility] Address: [address] [place] [address] Performed By: #### A LLBG ####[facility] LABCLIA [id number] [place] [address] [place] Base excess Calc (Bld) [Moles/Vol] 0 mmol/L Normal 0-2 [facility] Comment on above: Order Comment: Speci men Type: ARTERIAL BLOOD SPECIMENOrdering Facility: [facility] Address: [address] [place] [address] Performed By: #### A LLBG ####[facility] [id number] [place] [address] [place] Body temperature 98.6 [degF] Normal [facility] Comment on above: Order Comment: Speci men Type: ARTERIAL BLOOD SPECIMENOrdering Facility: [facility] Address: [address] [place] [address] Performed By: #### A LLBG ####[facility] [id number] [place] [address] [place] Calcium.ionized (Bld) [Mass/Vol] 1.18 mmol/L Normal 1.08-1.30 [facility] Comment on above: Order Comment: Speci men Type: ARTERIAL BLOOD SPECIMENOrdering Facility: [facility] Address: [address] [place] [address] Performed By: #### A LLBG ####[facility] [id number] [place] [address] [place] Calcium.ionized adjusted to pH 7.4 (BldA) [Moles/Vol] 1.17 mmol/L Normal 1.08-1.30 [facility] Comment on above: Order Comment: Speci men Type: ARTERIAL BLOOD SPECIMENOrdering Facility: [facility] Address: [address] [place] [address] Performed By: #### A LLBG ####[facility] [id number] [place] [address] [place] Carboxyhemoglobin (BldA) [Mass fraction] 1.6 % Normal 0.0-2.0 [facility] Comment on above: Order Comment: Speci men Type: ARTERIAL BLOOD SPECIMENOrdering Facility: [facility] Address: [address] [place] [address] Result Comment: Carb oxyhemoglobin Reference Range for Smokers: 2.0-8.0% Performed By: #### A LLBG ####[facility] LABCLIA [id number] [place] [address] [place] CO2 (Bld) [Partial pressure] 40 mm Hg Normal 36-46 [facility] Comment on above: Order Comment: Speci men Type: ARTERIAL BLOOD SPECIMENOrdering Facility: [facility] Address: [address] [place] [address] Performed By: #### A LLBG ####[facility] LABCLIA [id number] [place] [address] [place] FIO2 30 % Normal [facility] Comment on above: Order Comment: Speci men Type: ARTERIAL BLOOD SPECIMENOrdering Facility: [facility] Address: [address] [place] [address] Performed By: #### A LLBG ####[facility] LABCLIA [id number] [place] [address] [place] Glucose [Mass/Vol] 188 mg/dL High 60-105 [facility] Comment on above: Order Comment: Speci men Type: ARTERIAL BLOOD SPECIMENOrdering Facility: [facility] Address: [address] [place] [address] Performed By: #### A LLBG ####[facility] LABCLIA [id number] [place] [address] [place] HCO3 (Bld) [Moles/Vol] 24 mmol/L Normal 22-26 [facility] Comment on above: Order Comment: Speci men Type: ARTERIAL BLOOD SPECIMENOrdering Facility: [facility] Address: [address] [place] [address] Performed By: #### A LLBG ####[facility] LABCLIA [id number] [place] [address] [place] Hematocrit (Bld) [Volume fraction] 27.0 % Low 36.0-46.0 [facility] Comment on above: Order Comment: Speci men Type: ARTERIAL BLOOD SPECIMENOrdering Facility: [facility] Address: [address] [place] [address] Performed By: #### A LLBG ####[facility] LABCLIA [id number] [place] [address] [place] Hemoglobin (Bld) [Mass/Vol] 8.7 g/dL Low 11.5-15.5 [facility] Comment on above: Order Comment: Speci men Type: ARTERIAL BLOOD SPECIMENOrdering Facility: [facility] Address: [address] [place] [address] Performed By: #### A LLBG ####[facility] LABCLIA [id number] [place] [address] [place] Lactate [Moles/Vol] 1.1 mmol/L Normal 0.5-2.2 [facility] Comment on above: Order Comment: Speci men Type: ARTERIAL BLOOD SPECIMENOrdering Facility: [facility] Address: [address] [place] [address] Performed By: #### A LLBG ####[facility] LABCLIA [id number] [place] [address] [place] LITERS 60 Liters/min Normal [facility] Comment on above: Order Comment: Speci men Type: ARTERIAL BLOOD SPECIMENOrdering Facility: [facility] Address: [address] [place] [address] Performed By: #### A LLBG ####[facility] LABCLIA [id number] [place] [address] [place] Methemoglobin (Bld) [Mass fraction] 0.5 % Normal 0.0-1.5 [facility] Comment on above: Order Comment: Speci men Type: ARTERIAL BLOOD SPECIMENOrdering Facility: [facility] Address: [address] [place] [address] Performed By: #### A LLBG ####[facility] LABCLIA [id number] [place] [id number] [place] O2 THERAPY Hi-Flow Nasal Cannula-Heated Normal [facility] Comment on above: Order Comment: Speci men Type: ARTERIAL BLOOD SPECIMENOrdering Facility: [facility] Address: [address] [place] [address] Performed By: #### A LLBG ####[facility] LABCLIA [id number] [place] [address] [place] Oxygen (Bld) [Partial pressure] 83 mm Hg Low 85-95 [facility] Comment on above: Order Comment: Speci men Type: ARTERIAL BLOOD SPECIMENOrdering Facility: [facility] Address: [address] [place] [address] Performed By: #### A LLBG ####[facility] LABCLIA [id number] [place] [address] [place] Oxyhemoglobin (BldA) [Mass fraction] 94 % Low 95-98 [facility] Comment on above: Order Comment: Speci men Type: ARTERIAL BLOOD SPECIMENOrdering Facility: [facility] Address: [address] [place] [address] Performed By: #### A LLBG ####[facility] LABCLIA [id number] [place] [address] [place] pH (Bld) 7.39 [pH] Normal 7.35-7.45 [facility] Comment on above: Order Comment: Speci men Type: ARTERIAL BLOOD SPECIMENOrdering Facility: [facility] Address: [address] [place] [address] Performed By: #### A LLBG ####[facility] LABCLIA [id number] [place] [address] [place] PO2 / FIO2 RATIO 277 mmHg Low >[address] [facility] [place] [facility] Comment on above: Order Comment: Speci men Type: ARTERIAL BLOOD SPECIMENOrdering Facility: [facility] Address: [address] [place] [address] Performed By: #### A LLBG ####[facility] LABCLIA [id number] [place] [address] [place] Potassium [Moles/Vol] 3.7 mmol/L Normal 3.5-5.[address] [facility] Comment on above: Order Comment: Speci men Type: ARTERIAL BLOOD SPECIMENOrdering Facility: [facility] Address: [address] [place] [address] Performed By: #### A LLBG ####[facility] LABCLIA [id number] [place] [address] [place] Sodium [Moles/Vol] 144 mmol/L Normal 136-144 [facility] Comment on above: Order Comment: Speci men Type: ARTERIAL BLOOD SPECIMENOrdering Facility: [facility] Address: [address] [place] [address] Performed By: #### A LLBG ####[facility] LABCLIA [id number] [place] [address] [place] Base excess Calc (Bld) [Moles/Vol] 0 mmol/L Normal 0-2 [facility] Comment on above: Order Comment: Speci men Type: ARTERIAL BLOOD SPECIMENOrdering Facility: [facility] Address: [address] [place] [address] Performed By: #### A LLBG ####[facility] LABIA [id number] [place] [address] [place] Body temperature 98.6 [degF] Normal [facility] Comment on above: Order Comment: Speci men Type: ARTERIAL BLOOD SPECIMENOrdering Facility: [facility] Address: [address] [place] [address] Performed By: #### A LLBG ####[facility] LABIA [id number] [place] [address] [place] Calcium.ionized (Bld) [Mass/Vol] 1.20 mmol/L Normal 1.08-1.30 [facility] Comment on above: Order Comment: Speci men Type: ARTERIAL BLOOD SPECIMENOrdering Facility: [facility] Address: [address] [place] [address] Performed By: #### A LLBG ####[facility] LABCLIA [id number] [place] [address] [place] Calcium.ionized adjusted to pH 7.4 (BldA) [Moles/Vol] 1.19 mmol/L Normal 1.08-1.30 [facility] Comment on above: Order Comment: Speci men Type: ARTERIAL BLOOD SPECIMENOrdering Facility: [facility] Address: [address] [place] [address] Performed By: #### A LLBG ####[facility] LABIA [id number] [place] [address] [place] Carboxyhemoglobin (BldA) [Mass fraction] 1.9 % Normal 0.0-2.0 [facility] Comment on above: Order Comment: Speci men Type: ARTERIAL BLOOD SPECIMENOrdering Facility: [facility] Address: [address] [place] [address] Result Comment: Carb oxyhemoglobin Reference Range for Smokers: 2.0-8.0% Performed By: #### A LLBG ####[facility] LABIA [id number] [place] [address] [place] CO2 (Bld) [Partial pressure] 41 mm Hg Normal 36-46 [facility] Comment on above: Order Comment: Speci men Type: ARTERIAL BLOOD SPECIMENOrdering Facility: [facility] Address: [address] [place], [place] [id number] Performed By: #### A LLBG ####[facility] LABIA [id number] [place] [address] [place] Glucose [Mass/Vol] 190 mg/dL High 60-105 [facility] Comment on above: Order Comment: Speci men Type: ARTERIAL BLOOD SPECIMENOrdering Facility: [facility] Address: [address] [place] [address] Performed By: #### A LLBG ####[facility] LABCLIA [id number] [place] [address] [place] HCO3 (Bld) [Moles/Vol] 25 mmol/L Normal 22-26 [facility] Comment on above: Order Comment: Speci men Type: ARTERIAL BLOOD SPECIMENOrdering Facility: [facility] Address: [address] [place] [address] Performed By: #### A LLBG ####[facility] LABCLIA [id number] [place] [address] [place] Hematocrit (Bld) [Volume fraction] 28.6 % Low 36.0-46.0 [facility] Comment on above: Order Comment: Speci men Type: ARTERIAL BLOOD SPECIMENOrdering Facility: [facility] Address: [address] [place] [address] Performed By: #### A LLBG ####[facility] LABIA [id number] [place] [address] [place] Hemoglobin (Bld) [Mass/Vol] 9.2 g/dL Low 11.5-15.5 [facility] Comment on above: Order Comment: Speci men Type: ARTERIAL BLOOD SPECIMENOrdering Facility: [facility] Address: [address] [place] [address] Performed By: #### A LLBG ####[facility] LABCLIA [id number] [place] [address] [place] Lactate [Moles/Vol] 1.1 mmol/L Normal 0.5-2.2 [facility] Comment on above: Order Comment: Speci men Type: ARTERIAL BLOOD SPECIMENOrdering Facility: [facility] Address: [address] [place] [address] Performed By: #### A LLBG ####[facility] LABCLIA [id number] [place] [address] [place] Methemoglobin (Bld) [Mass fraction] 0.5 % Normal 0.0-1.5 [facility] Comment on above: Order Comment: Speci men Type: ARTERIAL BLOOD SPECIMENOrdering Facility: [facility] Address: [address] [place] [address] Performed By: #### A LLBG ####[facility] LABCLIA [id number] [place] [address] [place] O2 THERAPY Hi-Flow Nasal Cannula-Heated Normal [facility] Comment on above: Order Comment: Speci men Type: ARTERIAL BLOOD SPECIMENOrdering Facility: [facility] Address: [address] [place] [address] Performed By: #### A LLBG ####[facility] LABIA [id number] [place] [address] [place] Oxygen (Bld) [Partial pressure] 81 mm Hg Low 85-95 [facility] Comment on above: Order Comment: Speci men Type: ARTERIAL BLOOD SPECIMENOrdering Facility: [facility] Address: [address] [place] [address] Performed By: #### A LLBG ####[facility] LABCLIA [id number] [place] [address] [place] Oxyhemoglobin (BldA) [Mass fraction] 93 % Low 95-98 [facility] Comment on above: Order Comment: Speci men Type: ARTERIAL BLOOD SPECIMENOrdering Facility: [facility] Address: [address] [place] [address] Performed By: #### A LLBG ####[facility] LABIA [id number] [place] [address] [place] pH (Bld) 7.39 [pH] Normal 7.35-7.45 [facility] Comment on above: Order Comment: Speci men Type: ARTERIAL BLOOD SPECIMENOrdering Facility: [facility] Address: [address] [place], [place] [address] Performed By: #### A LLBG ####[facility] LABCLIA [id number] [place] [address] [place] Potassium [Moles/Vol] 3.7 mmol/L Normal 3.5-5.[address] [facility] Comment on above: Order Comment: Speci men Type: ARTERIAL BLOOD SPECIMENOrdering Facility: [facility] Address: [address] [place] [address] Performed By: #### A LLBG ####[facility] LABCLIA [id number] [place] [address] [place] Sodium [Moles/Vol] 144 mmol/L Normal 136-144 [facility] Comment on above: Order Comment: Speci men Type: ARTERIAL BLOOD SPECIMENOrdering Facility: [facility] Address: [address] [place] [address] Performed By: #### A LLBG ####[facility] LABCLIA [id number] [place] [address] [place] Base excess Calc (Bld) [Moles/Vol] 0 mmol/L Normal 0-2 [facility] Comment on above: Order Comment: Speci men Type: ARTERIAL BLOOD SPECIMENOrdering Facility: [facility] Address: [address] [place] [address] Performed By: #### A LLBG ####[facility] LABCLIA [id number] [place] [address] [place] Body temperature 98.6 [degF] Normal [facility] Comment on above: Order Comment: Speci men Type: ARTERIAL BLOOD SPECIMENOrdering Facility: [facility] Address: [address] [place] [address] Performed By: #### A LLBG ####[facility] LABCLIA [id number] [place] [address] [place] Calcium.ionized (Bld) [Mass/Vol] 1.16 mmol/L Normal 1.08-1.30 [facility] Comment on above: Order Comment: Speci men Type: ARTERIAL BLOOD SPECIMENOrdering Facility: [facility] Address: [address] [place] [address] Performed By: #### A LLBG ####[facility] LABCLIA [id number] [place] [address] [place] Calcium.ionized adjusted to pH 7.4 (BldA) [Moles/Vol] 1.15 mmol/L Normal 1.08-1.30 [facility] Comment on above: Order Comment: Speci men Type: ARTERIAL BLOOD SPECIMENOrdering Facility: [facility] Address: [address] [place] [address] Performed By: #### A LLBG ####[facility] LABIA [id number] [place] [address] [place] Carboxyhemoglobin (BldA) [Mass fraction] 1.7 % Normal 0.0-2.0 [facility] Comment on above: Order Comment: Speci men Type: ARTERIAL BLOOD SPECIMENOrdering Facility: [facility] Address: [address] [place] [address] Result Comment: Carb oxyhemoglobin Reference Range for Smokers: 2.0-8.0% Performed By: #### A LLBG ####[facility] LABCLIA [id number] [place] [address] [place] CO2 (Bld) [Partial pressure] 41 mm Hg Normal 36-46 [facility] Comment on above: Order Comment: Speci men Type: ARTERIAL BLOOD SPECIMENOrdering Facility: [facility] Address: [address] [place] [address] Performed By: #### A LLBG ####[facility] LABCLIA [id number] [place] [address] [place] Glucose [Mass/Vol] 181 mg/dL High 60-105 [facility] Comment on above: Order Comment: Speci men Type: ARTERIAL BLOOD SPECIMENOrdering Facility: [facility] Address: [address] [place] [address] Performed By: #### A LLBG ####[facility] LABCLIA [id number] [place] [address] [place] HCO3 (Bld) [Moles/Vol] 25 mmol/L Normal 22-26 [facility] Comment on above: Order Comment: Speci men Type: ARTERIAL BLOOD SPECIMENOrdering Facility: [facility] Address: [address] [place] [address] Performed By: #### A LLBG ####[facility] LABCLIA [id number] [place] [address] [place] Hematocrit (Bld) [Volume fraction] 29.0 % Low 36.0-46.0 [facility] Comment on above: Order Comment: Speci men Type: ARTERIAL BLOOD SPECIMENOrdering Facility: [facility] Address: [address] [place] [address] Performed By: #### A LLBG ####[facility] LABCLIA [id number] [place] [address] [place] Hemoglobin (Bld) [Mass/Vol] 9.4 g/dL Low 11.5-15.5 [facility] Comment on above: Order Comment: Speci men Type: ARTERIAL BLOOD SPECIMENOrdering Facility: [facility] Address: [address] [place] [address] Performed By: #### A LLBG ####[facility] LABCLIA [id number] [place] [address] [place] Lactate [Moles/Vol] 1.2 mmol/L Normal 0.5-2.2 [facility] Comment on above: Order Comment: Speci men Type: ARTERIAL BLOOD SPECIMENOrdering Facility: [facility] Address: [address] [place] [address] Performed By: #### A LLBG ####[facility] LABCLIA [id number] [place] [address] [place] Methemoglobin (Bld) [Mass fraction] 0.7 % Normal 0.0-1.5 [facility] Comment on above: Order Comment: Speci men Type: ARTERIAL BLOOD SPECIMENOrdering Facility: [facility] Address: [address] [place] [address] Performed By: #### A LLBG ####[facility] LABIA [id number] [place] [address] [place] O2 THERAPY Hi-Flow Nasal Cannula-Heated Normal [facility] Comment on above: Order Comment: Speci men Type: ARTERIAL BLOOD SPECIMENOrdering Facility: [facility] Address: [address] [place] [address] Performed By: #### A LLBG ####[facility] [id number] [place] [address] [place] Oxygen (Bld) [Partial pressure] 87 mm Hg Normal 85-95 [facility] Comment on above: Order Comment: Speci men Type: ARTERIAL BLOOD SPECIMENOrdering Facility: [facility] Address: [address] [place], [place] [address] Performed By: #### A LLBG ####[facility] LABIA [id number] [place] [address] [place] Oxyhemoglobin (BldA) [Mass fraction] 94 % Low 95-98 [facility] Comment on above: Order Comment: Speci men Type: ARTERIAL BLOOD SPECIMENOrdering Facility: [facility] Address: [address] [place] [address] Performed By: #### A LLBG ####[facility] LABIA [id number] [place] [id number] [place] pH (Bld) 7.39 [pH] Normal 7.35-7.45 [facility] Comment on above: Order Comment: Speci men Type: ARTERIAL BLOOD SPECIMENOrdering Facility: [facility] Address: [address] [place] [address] Performed By: #### A LLBG ####[facility] LABCLIA [id number] [place] [address] [place] Potassium [Moles/Vol] 3.8 mmol/L Normal 3.5-5.[address] [facility] Comment on above: Order Comment: Speci men Type: ARTERIAL BLOOD SPECIMENOrdering Facility: [facility] Address: [address] [place] [address] Performed By: #### A LLBG ####[facility] LABCLIA [id number] [place] [address] [place] Sodium [Moles/Vol] 141 mmol/L Normal 136-144 [facility] Comment on above: Order Comment: Speci men Type: ARTERIAL BLOOD SPECIMENOrdering Facility: [facility] Address: [address] [place] [address] Performed By: #### A LLBG ####[facility] LABCLIA [id number] [place] [address] [place] Base deficit (BldA) [Moles/Vol] -2 mmol/L Normal -2-0 [facility] Comment on above: Order Comment: Speci men Type: ARTERIAL BLOOD SPECIMENOrdering Facility: [facility] Address: [address] [place] [address] Performed By: #### A LLBG ####[facility] LABCLIA [id number] [place] [address] [place] Body temperature 98.6 [degF] Normal [facility] Comment on above: Order Comment: Speci men Type: ARTERIAL BLOOD SPECIMENOrdering Facility: [facility] Address: [address] [place] [address] Performed By: #### A LLBG ####[facility] LABCLIA [id number] [place] [address] [place] Calcium.ionized (Bld) [Mass/Vol] 1.16 mmol/L Normal 1.08-1.30 [facility] Comment on above: Order Comment: Speci men Type: ARTERIAL BLOOD SPECIMENOrdering Facility: [facility] Address: [address] [place] [address] Performed By: #### A LLBG ####[facility] LABCLIA [id number] [place] [address] [place] Calcium.ionized adjusted to pH 7.4 (BldA) [Moles/Vol] 1.15 mmol/L Normal 1.08-1.30 [facility] Comment on above: Order Comment: Speci men Type: ARTERIAL BLOOD SPECIMENOrdering Facility: [facility] Address: [address] [place] [address] Performed By: #### A LLBG ####[facility] LABCLIA [id number] [place] [address] [place] Carboxyhemoglobin (BldA) [Mass fraction] 1.3 % Normal 0.0-2.0 [facility] Comment on above: Order Comment: Speci men Type: ARTERIAL BLOOD SPECIMENOrdering Facility: [facility] Address: [address] [place] [address] Result Comment: Carb oxyhemoglobin Reference Range for Smokers: 2.0-8.0% Performed By: #### A LLBG ####[facility] LABCLIA [id number] [place] [address] [place] CO2 (Bld) [Partial pressure] 39 mm Hg Normal 36-46 [facility] Comment on above: Order Comment: Speci men Type: ARTERIAL BLOOD SPECIMENOrdering Facility: [facility] Address: [address] [place] [address] Performed By: #### A LLBG ####[facility] LABCLIA [id number] [place] [address] [place] Glucose [Mass/Vol] 177 mg/dL High 60-105 [facility] Comment on above: Order Comment: Speci men Type: ARTERIAL BLOOD SPECIMENOrdering Facility: [facility] Address: [address] [place] [address] Performed By: #### A LLBG ####[facility] LABCLIA [id number] [place] [address] [place] HCO3 (Bld) [Moles/Vol] 23 mmol/L Normal 22-26 [facility] Comment on above: Order Comment: Speci men Type: ARTERIAL BLOOD SPECIMENOrdering Facility: [facility] Address: [address] [place] [address] Performed By: #### A LLBG ####[facility] LABCLIA [id number] [place] [address] [place] Hematocrit (Bld) [Volume fraction] 26.8 % Low 36.0-46.0 [facility] Comment on above: Order Comment: Speci men Type: ARTERIAL BLOOD SPECIMENOrdering Facility: [facility] Address: [address] [place] [address] Performed By: #### A LLBG ####[facility] LABIA [id number] [place] [address] [place] Hemoglobin (Bld) [Mass/Vol] 8.6 g/dL Low 11.5-15.5 [facility] Comment on above: Order Comment: Speci men Type: ARTERIAL BLOOD SPECIMENOrdering Facility: [facility] Address: [address] [place] [address] Performed By: #### A LLBG ####[facility] LABIA [id number] [place] [address] [place] Lactate [Moles/Vol] 1.4 mmol/L Normal 0.5-2.2 [facility] Comment on above: Order Comment: Speci men Type: ARTERIAL BLOOD SPECIMENOrdering Facility: [facility] Address: [address] [place] [address] Performed By: #### A LLBG ####[facility] LABCLIA [id number] [place] [address] [place] Methemoglobin (Bld) [Mass fraction] 0.4 % Normal 0.0-1.5 [facility] Comment on above: Order Comment: Speci men Type: ARTERIAL BLOOD SPECIMENOrdering Facility: [facility] Address: [address] [place] [address] Performed By: #### A LLBG ####[facility] LABCLIA [id number] [place] [address] [place] O2 THERAPY Hi-Flow Nasal Cannula-Heated Normal [facility] Comment on above: Order Comment: Speci men Type: ARTERIAL BLOOD SPECIMENOrdering Facility: [facility] Address: [address] [place] [address] Performed By: #### A LLBG ####[facility] LABCLIA [id number] [place] [address] [place] Oxygen (Bld) [Partial pressure] 115 mm Hg High 85-95 [facility] Comment on above: Order Comment: Speci men Type: ARTERIAL BLOOD SPECIMENOrdering Facility: [facility] Address: [address] [place] [address] Performed By: #### A LLBG ####[facility] LABCLIA [id number] [place] [address] [place] Oxyhemoglobin (BldA) [Mass fraction] 97 % Normal 95-98 [facility] Comment on above: Order Comment: Speci men Type: ARTERIAL BLOOD SPECIMENOrdering Facility: [facility] Address: [address] [place] [address] Performed By: #### A LLBG ####[facility] LABCLIA [id number] [place] [id number] [place] pH (Bld) 7.38 [pH] Normal 7.35-7.45 [facility] Comment on above: Order Comment: Speci men Type: ARTERIAL BLOOD SPECIMENOrdering Facility: [facility] Address: [address] [place] [address] Performed By: #### A LLBG ####[facility] LABCLIA [id number] [place] [address] [place] Potassium [Moles/Vol] 3.8 mmol/L Normal 3.5-5.[address] [facility] Comment on above: Order Comment: Speci men Type: ARTERIAL BLOOD SPECIMENOrdering Facility: [facility] Address: [address] [place] [address] Performed By: #### A LLBG ####[facility] LABCLIA [id number] [place] [address] [place] Sodium [Moles/Vol] 143 mmol/L Normal 136-144 [facility] Comment on above: Order Comment: Speci men Type: ARTERIAL BLOOD SPECIMENOrdering Facility: [facility] Address: [address] [place] [address] Performed By: #### A LLBG ####[facility] LABCLIA [id number] [place] [address] [place] Base deficit (BldA) [Moles/Vol] -4 mmol/L Low -2-0 [facility] Comment on above: Order Comment: Speci men Type: ARTERIAL BLOOD SPECIMENOrdering Facility: [facility] Address: [address] [place] [address] Performed By: #### A LLBG ####[facility] LABCLIA [id number] [place] [address] [place] Body temperature 98.6 [degF] Normal [facility] Comment on above: Order Comment: Speci men Type: ARTERIAL BLOOD SPECIMENOrdering Facility: [facility] Address: [address] [place] [address] Performed By: #### A LLBG ####[facility] LABCLIA [id number] [place] [address] [place] Calcium.ionized (Bld) [Mass/Vol] 1.16 mmol/L Normal 1.08-1.30 [facility] Comment on above: Order Comment: Speci men Type: ARTERIAL BLOOD SPECIMENOrdering Facility: [facility] Address: [address] [place] [address] Performed By: #### A LLBG ####[facility] LABCLIA [id number] [place] [address] [place] Calcium.ionized adjusted to pH 7.4 (BldA) [Moles/Vol] 1.16 mmol/L Normal 1.08-1.30 [facility] Comment on above: Order Comment: Speci men Type: ARTERIAL BLOOD SPECIMENOrdering Facility: [facility] Address: [address] [place] [address] Performed By: #### A LLBG ####[facility] LABCLIA [id number] [place] [address] [place] Carboxyhemoglobin (BldA) [Mass fraction] 2.0 % Normal 0.0-2.0 [facility] Comment on above: Order Comment: Speci men Type: ARTERIAL BLOOD SPECIMENOrdering Facility: [facility] Address: [address] [place] [address] Result Comment: Carb oxyhemoglobin Reference Range for Smokers: 2.0-8.0% Performed By: #### A LLBG ####[facility] LABCLIA [id number] [place] [address] [place] CO2 (Bld) [Partial pressure] 33 mm Hg Low 36-46 [facility] Comment on above: Order Comment: Speci men Type: ARTERIAL BLOOD SPECIMENOrdering Facility: [facility] Address: [address] [place] [address] Performed By: #### A LLBG ####[facility] LABCLIA [id number] [place] [address] [place] Glucose [Mass/Vol] 226 mg/dL High 60-105 [facility] Comment on above: Order Comment: Speci men Type: ARTERIAL BLOOD SPECIMENOrdering Facility: [facility] Address: [address] [place] [address] Performed By: #### A LLBG ####[facility] LABCLIA [id number] [place] [address] [place] HCO3 (Bld) [Moles/Vol] 19 mmol/L Low 22-26 [facility] Comment on above: Order Comment: Speci men Type: ARTERIAL BLOOD SPECIMENOrdering Facility: [facility] Address: [address] [place] [address] Performed By: #### A LLBG ####[facility] LABCLIA [id number] [place] [address] [place] Hematocrit (Bld) [Volume fraction] 27.8 % Low 36.0-46.0 [facility] Comment on above: Order Comment: Speci men Type: ARTERIAL BLOOD SPECIMENOrdering Facility: [facility] Address: [address] [place] [address] Performed By: #### A LLBG ####[facility] LABCLIA [id number] [place] [address] [place] Hemoglobin (Bld) [Mass/Vol] 9.0 g/dL Low 11.5-15.5 [facility] Comment on above: Order Comment: Speci men Type: ARTERIAL BLOOD SPECIMENOrdering Facility: [facility] Address: [address] [place] [address] Performed By: #### A LLBG ####[facility] LABCLIA [id number] [place] [address] [place] Lactate [Moles/Vol] 1.4 mmol/L Normal 0.5-2.2 [facility] Comment on above: Order Comment: Speci men Type: ARTERIAL BLOOD SPECIMENOrdering Facility: [facility] Address: [address] [place] [id number] Performed By: #### A LLBG ####[facility] LABCLIA [id number] [place] [address] [place] Methemoglobin (Bld) [Mass fraction] 0.5 % Normal 0.0-1.5 [facility] Comment on above: Order Comment: Speci men Type: ARTERIAL BLOOD SPECIMENOrdering Facility: [facility] Address: [address] [place] [address] Performed By: #### A LLBG ####[facility] LABCLIA [id number] [place] [address] [place] O2 THERAPY Positive Normal [facility] Comment on above: Order Comment: Speci men Type: ARTERIAL BLOOD SPECIMENOrdering Facility: [facility] Address: [address] [place] [address] Performed By: #### A LLBG ####[facility] LABCLIA [id number] [place] [address] [place] Oxygen (Bld) [Partial pressure] 101 mm Hg High 85-95 [facility] Comment on above: Order Comment: Speci men Type: ARTERIAL BLOOD SPECIMENOrdering Facility: [facility] Address: [address] [place], [place] [id number] Performed By: #### A LLBG ####[facility] LABCLIA [id number] [place] [address] [place] Oxyhemoglobin (BldA) [Mass fraction] 96 % Normal 95-98 [facility] Comment on above: Order Comment: Speci men Type: ARTERIAL BLOOD SPECIMENOrdering Facility: [facility] Address: [address] [place] [id number] Performed By: #### A LLBG ####[facility] LABCLIA [id number] [place] [id number] [place] pH (Bld) 7.39 [pH] Normal 7.35-7.45 [facility] Comment on above: Order Comment: Speci men Type: ARTERIAL BLOOD SPECIMENOrdering Facility: [facility] Address: [address] [place] [address] Performed By: #### A LLBG ####[facility] LABCLIA [id number] [place] [address] [place] Potassium [Moles/Vol] 3.7 mmol/L Normal 3.5-5.[address] [facility] Comment on above: Order Comment: Speci men Type: ARTERIAL BLOOD SPECIMENOrdering Facility: [facility] Address: [address] [place] [address] Performed By: #### A LLBG ####[facility] LABCLIA [id number] [place] [address] [place] Sodium [Moles/Vol] 142 mmol/L Normal 136-144 [facility] Comment on above: Order Comment: Speci men Type: ARTERIAL BLOOD SPECIMENOrdering Facility: [facility] Address: [address] [place] [address] Performed By: #### A LLBG ####[facility] LABCLIA [id number] [place] [address] [place] Base deficit (BldA) [Moles/Vol] -4 mmol/L Low -2-0 [facility] Comment on above: Order Comment: Speci men Type: ARTERIAL BLOOD SPECIMENOrdering Facility: [facility] Address: [address] [place] [address] Performed By: #### A LLBG ####[facility] LABCLIA [id number] [place] [address] [place] Body temperature 98.6 [degF] Normal [facility] Comment on above: Order Comment: Speci men Type: ARTERIAL BLOOD SPECIMENOrdering Facility: [facility] Address: [address] [place] [address] Performed By: #### A LLBG ####[facility] LABCLIA [id number] [place] [address] [place] Calcium.ionized (Bld) [Mass/Vol] 1.18 mmol/L Normal 1.08-1.30 [facility] Comment on above: Order Comment: Speci men Type: ARTERIAL BLOOD SPECIMENOrdering Facility: [facility] Address: [address] [place] [address] Performed By: #### A LLBG ####[facility] [id number] [place] [address] [place] Calcium.ionized adjusted to pH 7.4 (BldA) [Moles/Vol] 1.17 mmol/L Normal 1.08-1.30 [facility] Comment on above: Order Comment: Speci men Type: ARTERIAL BLOOD SPECIMENOrdering Facility: [facility] Address: [address] [place] [address] Performed By: #### A LLBG ####[facility] [id number] [place] [address] [place] Carboxyhemoglobin (BldA) [Mass fraction] 1.6 % Normal 0.0-2.0 [facility] Comment on above: Order Comment: Speci men Type: ARTERIAL BLOOD SPECIMENOrdering Facility: [facility] Address: [address] [place] [address] Result Comment: Carb oxyhemoglobin Reference Range for Smokers: 2.0-8.0% Performed By: #### A LLBG ####[facility] LABIA [id number] [place] [address] [place] CO2 (Bld) [Partial pressure] 34 mm Hg Low 36-46 [facility] Comment on above: Order Comment: Speci men Type: ARTERIAL BLOOD SPECIMENOrdering Facility: [facility] Address: [address] [place] [address] Performed By: #### A LLBG ####[facility] LABIA [id number] [place] [address] [place] Glucose [Mass/Vol] 196 mg/dL High 60-105 [facility] Comment on above: Order Comment: Speci men Type: ARTERIAL BLOOD SPECIMENOrdering Facility: [facility] Address: [address] [place] [address] Performed By: #### A LLBG ####[facility] LABCLIA [id number] [place] [address] [place] HCO3 (Bld) [Moles/Vol] 20 mmol/L Low 22-26 [facility] Comment on above: Order Comment: Speci men Type: ARTERIAL BLOOD SPECIMENOrdering Facility: [facility] Address: [address] [place] [address] Performed By: #### A LLBG ####[facility] LABCLIA [id number] [place] [address] [place] Hematocrit (Bld) [Volume fraction] 27.9 % Low 36.0-46.0 [facility] Comment on above: Order Comment: Speci men Type: ARTERIAL BLOOD SPECIMENOrdering Facility: [facility] Address: [address] [place] [address] Performed By: #### A LLBG ####[facility] LABCLIA [id number] [place] [address] [place] Hemoglobin (Bld) [Mass/Vol] 9.0 g/dL Low 11.5-15.5 [facility] Comment on above: Order Comment: Speci men Type: ARTERIAL BLOOD SPECIMENOrdering Facility: [facility] Address: [address] [place] [address] Performed By: #### A LLBG ####[facility] LABCLIA [id number] [place] [address] [place] Lactate [Moles/Vol] 1.5 mmol/L Normal 0.5-2.2 [facility] Comment on above: Order Comment: Speci men Type: ARTERIAL BLOOD SPECIMENOrdering Facility: [facility] Address: [address] [place] [address] Performed By: #### A LLBG ####[facility] LABCLIA [id number] [place] [address] [place] Methemoglobin (Bld) [Mass fraction] 1.3 % Normal 0.0-1.5 [facility] Comment on above: Order Comment: Speci men Type: ARTERIAL BLOOD SPECIMENOrdering Facility: [facility] Address: [address] [place] [address] Performed By: #### A LLBG ####[facility] LABCLIA [id number] [place] [address] [place] O2 THERAPY Positive Normal [facility] Comment on above: Order Comment: Speci men Type: ARTERIAL BLOOD SPECIMENOrdering Facility: [facility] Address: [address] [place] [address] Performed By: #### A LLBG ####[facility] LABCLIA [id number] [place] [address] [place] Oxygen (Bld) [Partial pressure] 86 mm Hg Normal 85-95 [facility] Comment on above: Order Comment: Speci men Type: ARTERIAL BLOOD SPECIMENOrdering Facility: [facility] Address: [address] [place] [address] Performed By: #### A LLBG ####[facility] LABCLIA [id number] [place] [address] [place] Oxyhemoglobin (BldA) [Mass fraction] 94 % Low 95-98 [facility] Comment on above: Order Comment: Speci men Type: ARTERIAL BLOOD SPECIMENOrdering Facility: [facility] Address: [address] [place] [address] Performed By: #### A LLBG ####[facility] LABCLIA [id number] [place] [address] [place] pH (Bld) 7.39 [pH] Normal 7.35-7.45 [facility] Comment on above: Order Comment: Speci men Type: ARTERIAL BLOOD SPECIMENOrdering Facility: [facility] Address: [address] [place] [address] Performed By: #### A LLBG ####[facility] LABIA [id number] [place] [address] [place] Potassium [Moles/Vol] 3.9 mmol/L Normal 3.5-5.[address] [facility] Comment on above: Order Comment: Speci men Type: ARTERIAL BLOOD SPECIMENOrdering Facility: [facility] Address: [address] [place] [address] Performed By: #### A LLBG ####[facility] LABIA [id number] [place] [address] [place] Sodium [Moles/Vol] 140 mmol/L Normal 136-144 [facility] Comment on above: Order Comment: Speci men Type: ARTERIAL BLOOD SPECIMENOrdering Facility: [facility] Address: [address] [place] [address] Performed By: #### A LLBG ####[facility]IA [id number] [place] [address] [place] CBC panel Auto (Bld)on 10-31 Erythrocyte distribution width (RBC) [Ratio] 14.3 % Normal 11.5-15.0 [facility] Comment on above: Order Comment: Speci men Type: BLOOD SPECIMENOrdering Facility: [facility] Address: [address] [place] [address] Performed By: #### 5 8410-2 ####[facility] LABIA [id number] [place] [address] [place] Hematocrit (Bld) [Volume fraction] 27.5 % Low 36.0-46.0 [facility] Comment on above: Order Comment: Speci men Type: BLOOD SPECIMENOrdering Facility: [facility] Address: [address] [place] [address] Performed By: #### 5 8410-2 ####[facility] LABCLIA [id number] [place] [address] [place] Hemoglobin (Bld) [Mass/Vol] 9.0 g/dL Low 11.5-15.5 [facility] Comment on above: Order Comment: Speci men Type: BLOOD SPECIMENOrdering Facility: [facility] Address: [address] [place] [address] Performed By: #### 5 8410-2 ####[facility] LABIA [id number] [place] [address] [place] MCH (RBC) [Entitic mass] 32.8 pg Normal 26.0-34.0 [facility] Comment on above: Order Comment: Speci men Type: BLOOD SPECIMENOrdering Facility: [facility] Address: [address] [place] [address] Performed By: #### 5 8410-2 ####[facility] LABIA [id number] [place] [address] [place] MCHC (RBC) [Mass/Vol] 32.7 g/dL Normal 30.5-36.[address] [facility] Comment on above: Order Comment: Speci men Type: BLOOD SPECIMENOrdering Facility: [facility] Address: [address] [place] [address] Performed By: #### 5 8410-2 ####[facility] LABIA [id number] [place] [address] [place] MCV (RBC) [Entitic vol] 100.4 fL High 80.0-100.0 [facility] Comment on above: Order Comment: Speci men Type: BLOOD SPECIMENOrdering Facility: [facility] Address: [address] [place] [address] Performed By: #### 5 8410-2 ####[facility] LABCLIA [id number] [place] [address] [place] Nucleated RBC (Bld) [#/Vol] 0.02 10*3/uL High <0.01 [facility] Comment on above: Order Comment: Speci men Type: BLOOD SPECIMENOrdering Facility: [facility] Address: [address] [place] [address] Performed By: #### 5 8410-2 ####[facility] LABCLIA [id number] [place] [address] [place] Platelet mean volume (Bld) [Entitic vol] 9.5 fL Normal 9.0-12.7 [facility] Comment on above: Order Comment: Speci men Type: BLOOD SPECIMENOrdering Facility: [facility] Address: [address] [place] [address] Performed By: #### 5 8410-2 ####[facility] LABIA [id number] [place] [address] [place] Platelets (Bld) [#/Vol] 183 10*3/uL Normal 150-400 [facility] Comment on above: Order Comment: Speci men Type: BLOOD SPECIMENOrdering Facility: [facility] Address: [address] [place] [address] Performed By: #### 5 8410-2 ####[facility] LABIA [id number] [place] [address] [place] RBC (Bld) [#/Vol] 2.74 10*6/uL Low 3.90-5.20 [facility] Comment on above: Order Comment: Speci men Type: BLOOD SPECIMENOrdering Facility: [facility] Address: [address] [place] [address] Performed By: #### 5 8410-2 ####[facility] LABCLIA [id number] [place] [address] [place] WBC (Bld) [#/Vol] 5.90 10*3/uL Normal 3.70-11.00 [facility] Comment on above: Order Comment: Speci men Type: BLOOD SPECIMENOrdering Facility: [facility] Address: [address] [place] [address] Performed By: #### 5 8410-2 ####[facility] LABCLIA [id number] [address] [address] [place] Comprehensive metabolic 2000 panelon 11-01-2023 Albumin [Mass/Vol] 3.2 g/dL Low 3.9-4.9 [facility] Comment on above: Order Comment: Speci men Type: BLOOD SPECIMENOrdering Facility: [facility] Address: [address] [place] [address] Performed By: #### 2 4323-8 ####[facility] LABCLIA [id number] [place] [address] [place] ALP [Catalytic activity/Vol] 60 U/L Normal 34-123 [facility] Comment on above: Order Comment: Speci men Type: BLOOD SPECIMENOrdering Facility: [facility] Address: [address] [place] [address] Performed By: #### 2 4323-8 ####[facility] LABCLIA [id number] [place] [address] [place] ALT [Catalytic activity/Vol] 29 U/L Normal 7-38 [facility] Comment on above: Order Comment: Speci men Type: BLOOD SPECIMENOrdering Facility: [facility] Address: [address] [place] [address] Performed By: #### 2 4323-8 ####[facility] LABCLIA [id number] [place] [address] [place] Anion gap [Moles/Vol] 23 mmol/L High 8-[address] [facility] Comment on above: Order Comment: Speci men Type: BLOOD SPECIMENOrdering Facility: [facility] Address: [address] [place] [address] Performed By: #### 2 4323-8 ####[facility] LABCLIA [id number] [place] [address] [place] AST [Catalytic activity/Vol] 34 U/L Normal 13-35 [facility] Comment on above: Order Comment: Speci men Type: BLOOD SPECIMENOrdering Facility: [facility] Address: [address] [place] [address] Performed By: #### 2 4323-8 ####[facility] LABCLIA [id number] [place] [address] [place] Bilirubin [Mass/Vol] 0.6 mg/dL Normal 0.2-1.3 [facility] Comment on above: Order Comment: Speci men Type: BLOOD SPECIMENOrdering Facility: [facility] Address: [address] [place] [address] Performed By: #### 2 4323-8 ####[facility] LABCLIA [id number] [place] [address] [place] Calcium [Mass/Vol] 9.0 mg/dL Normal 8.5-10.2 [facility] Comment on above: Order Comment: Speci men Type: BLOOD SPECIMENOrdering Facility: [facility] Address: [address] [place] [address] Performed By: #### 2 4323-8 ####[facility] LABCLIA [id number] [place] [address] [place] Chloride [Moles/Vol] 100 mmol/L Normal 98-107 [facility] Comment on above: Order Comment: Speci men Type: BLOOD SPECIMENOrdering Facility: [facility] Address: [address] [place] [address] Performed By: #### 2 4323-8 ####[facility] LABCLIA [id number] [place] [address] [place] CO2 [Moles/Vol] 18 mmol/L Low 22-30 [facility] Comment on above: Order Comment: Speci men Type: BLOOD SPECIMENOrdering Facility: [facility] Address: [address] [place] [address] Performed By: #### 2 4323-8 ####[facility] LABCLIA [id number] [place] [address] [place] Creatinine [Mass/Vol] 1.38 mg/dL High 0.58-0.[address] [facility] Comment on above: Order Comment: Speci men Type: BLOOD SPECIMENOrdering Facility: [facility] Address: [address] [place] [address] Performed By: #### 2 4323-8 ####[facility] LABCLIA [id number] [place] [address] [place] Creatinine and Glomerular filtration rate.predicted panel (S/P/Bld) 43 mL/min/1.73m??? Low >=60 [facility] Comment on above: Order Comment: Speci men Type: BLOOD SPECIMENOrdering Facility: [facility] Address: [address] [place] [address] Result Comment: Malorie mated Glomerular Filtration Rate (eGFR) is calculated using the 2020 CKD-EPI creatinine equation. This equation utilizes serum creatinine, sex, and age as parameters. The creatinine assay has traceable calibration to isotope dilution-mass spectrometry. Refer to KDIGO guidelines for clinical interpretation. In patients with unstable renal function, e.g. those with acute kidney injury, the eGFR may not accurately reflect actual GFR. Performed By: #### 2 4323-8 ####[facility] LABIA [id number] [place] [address] [place] Glucose [Mass/Vol] 195 mg/dL High 74-99 [facility] Comment on above: Order Comment: Speci men Type: BLOOD SPECIMENOrdering Facility: [facility] Address: [address] [place] [address] Result Comment: The [place] [employer] (ADA) provides guidance for cutoff values for fasting glucose and random glucose. The ADA defines fasting as no caloric intake for at least 8 hours. Fasting plasma glucose results between 100 to 125 mg/dL indicate increased risk for diabetes (prediabetes).Fasting plasma glucose results greater than or equal to 126 mg/dL meet the criteria for diagnosis of diabetes. In the absence of unequivocal hyperglycemia, results should be confirmed by repeat testing. In a patient with classic symptoms of hyperglycemia or hyperglycemic crisis, random plasma glucose results greater than or equal to 200 mg/dL meet the criteria for diagnosis of diabetes.Reference: Standards of Medical Care in Diabetes 2016, [place] [employer]. Diabetes Care. 2016.39(Suppl 1). Performed By: #### 2 4323-8 ####[facility] LABCLIA [id number] [place] [address] [place] Potassium [Moles/Vol] 4.0 mmol/L Normal 3.7-5.[address] [facility] Comment on above: Order Comment: Speci men Type: BLOOD SPECIMENOrdering Facility: [facility] Address: [address] [place] [address] Performed By: #### 2 4323-8 ####[facility] LABCLIA [id number] [place] [address] [place] Protein [Mass/Vol] 6.2 g/dL Low 6.3-8.0 [facility] Comment on above: Order Comment: Speci men Type: BLOOD SPECIMENOrdering Facility: [facility] Address: [address] [place] [address] Performed By: #### 2 4323-8 ####[facility] LABCLIA [id number] [place] [address] [place] Sodium [Moles/Vol] 141 mmol/L Normal 136-144 [facility] Comment on above: Order Comment: Speci men Type: BLOOD SPECIMENOrdering Facility: [facility] Address: [address] [place] [address] Performed By: #### 2 4323-8 ####[facility] LABCLIA [id number] [place] [address] [place] Urea nitrogen [Mass/Vol] 49 mg/dL High 7-21 [facility] Comment on above: Order Comment: Speci men Type: BLOOD SPECIMENOrdering Facility: [facility] Address: [address] [place] [address] Performed By: #### 2 4323-8 ####[facility] LABCLIA [id number] [place] [address] [place] XR ABDOMEN 1V SUPINEon 10-31 XR ABDOMEN 1V SUPINE Normal [facility] XR CHEST 1V FRONTALon 2023 XR CHEST 1V FRONTAL Normal [facility] ARTERIAL BLOOD GASESon 10-30 Base deficit (BldA) [Moles/Vol] -2 mmol/L Normal -2-0 [facility] Comment on above: Order Comment: Speci men Type: ARTERIAL BLOOD SPECIMENOrdering Facility: [facility] Address: [address] [place] [address] Performed By: #### A LLBG ####[facility] LABCLIA [id number] [place] [address] [place] Body temperature 98.6 [degF] Normal [facility] Comment on above: Order Comment: Speci men Type: ARTERIAL BLOOD SPECIMENOrdering Facility: [facility] Address: [address] [place] [address] Performed By: #### A LLBG ####[facility] LABCLIA [id number] [place] [address] [place] Calcium.ionized (Bld) [Mass/Vol] 1.18 mmol/L Normal 1.08-1.30 [facility] Comment on above: Order Comment: Speci men Type: ARTERIAL BLOOD SPECIMENOrdering Facility: [facility] Address: [address] [place] [address] Performed By: #### A LLBG ####[facility] LABCLIA [id number] [place] [address] [place] Calcium.ionized adjusted to pH 7.4 (BldA) [Moles/Vol] 1.18 mmol/L Normal 1.08-1.30 [facility] Comment on above: Order Comment: Speci men Type: ARTERIAL BLOOD SPECIMENOrdering Facility: [facility] Address: [address] [place] [address] Performed By: #### A LLBG ####[facility] LABCLIA [id number] [place] [address] [place] Carboxyhemoglobin (BldA) [Mass fraction] 2.0 % Normal 0.0-2.0 [facility] Comment on above: Order Comment: Speci men Type: ARTERIAL BLOOD SPECIMENOrdering Facility: [facility] Address: [address] [place] [address] Result Comment: Carb oxyhemoglobin Reference Range for Smokers: 2.0-8.0% Performed By: #### A LLBG ####[facility] LABCLIA [id number] [place] [address] [place] CO2 (Bld) [Partial pressure] 35 mm Hg Low 36-46 [facility] Comment on above: Order Comment: Speci men Type: ARTERIAL BLOOD SPECIMENOrdering Facility: [facility] Address: [address] [place] [address] Performed By: #### A LLBG ####[facility] LABCLIA [id number] [place] [address] [place] Glucose [Mass/Vol] 168 mg/dL High 60-105 [facility] Comment on above: Order Comment: Speci men Type: ARTERIAL BLOOD SPECIMENOrdering Facility: [facility] Address: [address] [place] [address] Performed By: #### A LLBG ####[facility] LABCLIA [id number] [place] [address] [place] HCO3 (Bld) [Moles/Vol] 21 mmol/L Low 22-26 [facility] Comment on above: Order Comment: Speci men Type: ARTERIAL BLOOD SPECIMENOrdering Facility: [facility] Address: [address] [place] [address] Performed By: #### A LLBG ####[facility] LABIA [id number] [place] [address] [place] Hematocrit (Bld) [Volume fraction] 27.6 % Low 36.0-46.0 [facility] Comment on above: Order Comment: Speci men Type: ARTERIAL BLOOD SPECIMENOrdering Facility: [facility] Address: [address] [place] [address] Performed By: #### A LLBG ####[facility] LABIA [id number] [place] [address] [place] Hemoglobin (Bld) [Mass/Vol] 8.9 g/dL Low 11.5-15.5 [facility] Comment on above: Order Comment: Speci men Type: ARTERIAL BLOOD SPECIMENOrdering Facility: [facility] Address: [address] [place] [address] Performed By: #### A LLBG ####[facility] LABIA [id number] [place] [address] [place] Lactate [Moles/Vol] 1.2 mmol/L Normal 0.5-2.2 [facility] Comment on above: Order Comment: Speci men Type: ARTERIAL BLOOD SPECIMENOrdering Facility: [facility] Address: [address] [place] [address] Performed By: #### A LLBG ####[facility] LABIA [id number] [place] [address] [place] Methemoglobin (Bld) [Mass fraction] 0.9 % Normal 0.0-1.5 [facility] Comment on above: Order Comment: Speci men Type: ARTERIAL BLOOD SPECIMENOrdering Facility: [facility] Address: [address] [place] [address] Performed By: #### A LLBG ####[facility] LABCLIA [id number] [place] [address] [place] O2 THERAPY Positive Normal [facility] Comment on above: Order Comment: Speci men Type: ARTERIAL BLOOD SPECIMENOrdering Facility: [facility] Address: [address] [place] [address] Performed By: #### A LLBG ####[facility] LABCLIA [id number] [place] [address] [place] Oxygen (Bld) [Partial pressure] 125 mm Hg High 85-95 [facility] Comment on above: Order Comment: Speci men Type: ARTERIAL BLOOD SPECIMENOrdering Facility: [facility] Address: [address] [place] [address] Performed By: #### A LLBG ####[facility] LABCLIA [id number] [place] [address] [place] Oxyhemoglobin (BldA) [Mass fraction] 97 % Normal 95-98 [facility] Comment on above: Order Comment: Speci men Type: ARTERIAL BLOOD SPECIMENOrdering Facility: [facility] Address: [address] [place] [address] Performed By: #### A LLBG ####[facility] LABCLIA [id number] [place] [address] [place] pH (Bld) 7.40 [pH] Normal 7.35-7.45 [facility] Comment on above: Order Comment: Speci men Type: ARTERIAL BLOOD SPECIMENOrdering Facility: [facility] Address: [address] [place], [place] [id number] Performed By: #### A LLBG ####[facility] LABCLIA [id number] [place] [id number] [place] Potassium [Moles/Vol] 4.0 mmol/L Normal 3.5-5.[address] [facility] Comment on above: Order Comment: Speci men Type: ARTERIAL BLOOD SPECIMENOrdering Facility: [facility] Address: [address] [place] [address] Performed By: #### A LLBG ####[facility] LABCLIA [id number] [place] [address] [place] Sodium [Moles/Vol] 141 mmol/L Normal 136-144 [facility] Comment on above: Order Comment: Speci men Type: ARTERIAL BLOOD SPECIMENOrdering Facility: [facility] Address: [address] [place] [address] Performed By: #### A LLBG ####[facility] LABCLIA [id number] [place] [address] [place] Base deficit (BldA) [Moles/Vol] -2 mmol/L Normal -2-0 [facility] Comment on above: Order Comment: Speci men Type: ARTERIAL BLOOD SPECIMENOrdering Facility: [facility] Address: [address] [place] [address] Performed By: #### A LLBG ####[facility] LABCLIA [id number] [place] [address] [place] Body temperature 98.6 [degF] Normal [facility] Comment on above: Order Comment: Speci men Type: ARTERIAL BLOOD SPECIMENOrdering Facility: [facility] Address: [address] [place] [address] Performed By: #### A LLBG ####[facility] LABCLIA [id number] [place] [address] [place] Calcium.ionized (Bld) [Mass/Vol] 1.19 mmol/L Normal 1.08-1.30 [facility] Comment on above: Order Comment: Speci men Type: ARTERIAL BLOOD SPECIMENOrdering Facility: [facility] Address: [address] [place] [address] Performed By: #### A LLBG ####[facility] LABCLIA [id number] [place] [address] [place] Calcium.ionized adjusted to pH 7.4 (BldA) [Moles/Vol] 1.19 mmol/L Normal 1.08-1.30 [facility] Comment on above: Order Comment: Speci men Type: ARTERIAL BLOOD SPECIMENOrdering Facility: [facility] Address: [address] [place] [address] Performed By: #### A LLBG ####[facility] LABIA [id number] [place] [address] [place] Carboxyhemoglobin (BldA) [Mass fraction] 2.1 % High 0.0-2.0 [facility] Comment on above: Order Comment: Speci men Type: ARTERIAL BLOOD SPECIMENOrdering Facility: [facility] Address: [address] [place] [address] Result Comment: Carb oxyhemoglobin Reference Range for Smokers: 2.0-8.0% Performed By: #### A LLBG ####[facility] LABCLIA [id number] [place] [address] [place] CO2 (Bld) [Partial pressure] 36 mm Hg Normal 36-46 [facility] Comment on above: Order Comment: Speci men Type: ARTERIAL BLOOD SPECIMENOrdering Facility: [facility] Address: [address] [place] [address] Performed By: #### A LLBG ####[facility] LABCLIA [id number] [place] [address] [place] Glucose [Mass/Vol] 129 mg/dL High 60-105 [facility] Comment on above: Order Comment: Speci men Type: ARTERIAL BLOOD SPECIMENOrdering Facility: [facility] Address: [address] [place] [address] Performed By: #### A LLBG ####[facility] LABIA [id number] [place] [address] [place] HCO3 (Bld) [Moles/Vol] 22 mmol/L Normal 22-26 [facility] Comment on above: Order Comment: Speci men Type: ARTERIAL BLOOD SPECIMENOrdering Facility: [facility] Address: [address] [place] [address] Performed By: #### A LLBG ####[facility] LABIA [id number] [place] [address] [place] Hematocrit (Bld) [Volume fraction] 28.3 % Low 36.0-46.0 [facility] Comment on above: Order Comment: Speci men Type: ARTERIAL BLOOD SPECIMENOrdering Facility: [facility] Address: [address] [place] [address] Performed By: #### A LLBG ####[facility] LABIA [id number] [place] [address] [place] Hemoglobin (Bld) [Mass/Vol] 9.1 g/dL Low 11.5-15.5 [facility] Comment on above: Order Comment: Speci men Type: ARTERIAL BLOOD SPECIMENOrdering Facility: [facility] Address: [address] [place] [address] Performed By: #### A LLBG ####[facility] LABIA [id number] [place] [address] [place] Lactate [Moles/Vol] 1.1 mmol/L Normal 0.5-2.2 [facility] Comment on above: Order Comment: Speci men Type: ARTERIAL BLOOD SPECIMENOrdering Facility: [facility] Address: [address] [place] [address] Performed By: #### A LLBG ####[facility] LABIA [id number] [place] [address] [place] Methemoglobin (Bld) [Mass fraction] 0.7 % Normal 0.0-1.5 [facility] Comment on above: Order Comment: Speci men Type: ARTERIAL BLOOD SPECIMENOrdering Facility: [facility] Address: [address] [place] [address] Performed By: #### A LLBG ####[facility] LABCLIA [id number] [place] [address] [place] O2 THERAPY Positive Normal [facility] Comment on above: Order Comment: Speci men Type: ARTERIAL BLOOD SPECIMENOrdering Facility: [facility] Address: [address] [place] [address] Performed By: #### A LLBG ####[facility] LABCLIA [id number] [place] [address] [place] Oxygen (Bld) [Partial pressure] 106 mm Hg High 85-95 [facility] Comment on above: Order Comment: Speci men Type: ARTERIAL BLOOD SPECIMENOrdering Facility: [facility] Address: [address] [place] [address] Performed By: #### A LLBG ####[facility] LABIA [id number] [place] [address] [place] Oxyhemoglobin (BldA) [Mass fraction] 96 % Normal 95-98 [facility] Comment on above: Order Comment: Speci men Type: ARTERIAL BLOOD SPECIMENOrdering Facility: [facility] Address: [address] [place] [address] Performed By: #### A LLBG ####[facility] LABIA [id number] [place] [address] [place] pH (Bld) 7.40 [pH] Normal 7.35-7.45 [facility] Comment on above: Order Comment: Speci men Type: ARTERIAL BLOOD SPECIMENOrdering Facility: [facility] Address: [address] [place] [address] Performed By: #### A LLBG ####[facility] LABCLIA [id number] [place] [id number] [place] Potassium [Moles/Vol] 4.1 mmol/L Normal 3.5-5.[address] [facility] Comment on above: Order Comment: Speci men Type: ARTERIAL BLOOD SPECIMENOrdering Facility: [facility] Address: [address] [place] [address] Performed By: #### A LLBG ####[facility] LABCLIA [id number] [place] [address] [place] Sodium [Moles/Vol] 139 mmol/L Normal 136-144 [facility] Comment on above: Order Comment: Speci men Type: ARTERIAL BLOOD SPECIMENOrdering Facility: [facility] Address: [address] [place] [address] Performed By: #### A LLBG ####[facility] LABCLIA [id number] [place] [address] [place] Base deficit (BldA) [Moles/Vol] -1 mmol/L Normal -2-0 [facility] Comment on above: Order Comment: Speci men Type: ARTERIAL BLOOD SPECIMENOrdering Facility: [facility] Address: [address] [place] [address] Performed By: #### A LLBG ####[facility] LABCLIA [id number] [place] [address] [place] Body temperature 98.6 [degF] Normal [facility] Comment on above: Order Comment: Speci men Type: ARTERIAL BLOOD SPECIMENOrdering Facility: [facility] Address: [address] [place] [address] Performed By: #### A LLBG ####[facility] LABCLIA [id number] [place] [address] [place] Calcium.ionized (Bld) [Mass/Vol] 1.18 mmol/L Normal 1.08-1.30 [facility] Comment on above: Order Comment: Speci men Type: ARTERIAL BLOOD SPECIMENOrdering Facility: [facility] Address: [address] [place] [address] Performed By: #### A LLBG ####[facility] LABIA [id number] [place] [address] [place] Calcium.ionized adjusted to pH 7.4 (BldA) [Moles/Vol] 1.18 mmol/L Normal 1.08-1.30 [facility] Comment on above: Order Comment: Speci men Type: ARTERIAL BLOOD SPECIMENOrdering Facility: [facility] Address: [address] [place] [address] Performed By: #### A LLBG ####[facility] [id number] [place] [address] [place] Carboxyhemoglobin (BldA) [Mass fraction] 1.7 % Normal 0.0-2.0 [facility] Comment on above: Order Comment: Speci men Type: ARTERIAL BLOOD SPECIMENOrdering Facility: [facility] Address: [address] [place] [address] Result Comment: Carb oxyhemoglobin Reference Range for Smokers: 2.0-8.0% Performed By: #### A LLBG ####[facility] [id number] [place] [address] [place] CO2 (Bld) [Partial pressure] 37 mm Hg Normal 36-46 [facility] Comment on above: Order Comment: Speci men Type: ARTERIAL BLOOD SPECIMENOrdering Facility: [facility] Address: [address] [place] [address] Performed By: #### A LLBG ####[facility] LABIA [id number] [place] [address] [place] Glucose [Mass/Vol] 105 mg/dL Normal 60-105 [facility] Comment on above: Order Comment: Speci men Type: ARTERIAL BLOOD SPECIMENOrdering Facility: [facility] Address: [address] [place] [address] Performed By: #### A LLBG ####[facility] [id number] [place] [address] [place] HCO3 (Bld) [Moles/Vol] 23 mmol/L Normal 22-26 [facility] Comment on above: Order Comment: Speci men Type: ARTERIAL BLOOD SPECIMENOrdering Facility: [facility] Address: [address] [place] [address] Performed By: #### A LLBG ####[facility] LABCLIA [id number] [place] [address] [place] Hematocrit (Bld) [Volume fraction] 28.6 % Low 36.0-46.0 [facility] Comment on above: Order Comment: Speci men Type: ARTERIAL BLOOD SPECIMENOrdering Facility: [facility] Address: [address] [place] [address] Performed By: #### A LLBG ####[facility] LABCLIA [id number] [place] [address] [place] Hemoglobin (Bld) [Mass/Vol] 9.2 g/dL Low 11.5-15.5 [facility] Comment on above: Order Comment: Speci men Type: ARTERIAL BLOOD SPECIMENOrdering Facility: [facility] Address: [address] [place] [address] Performed By: #### A LLBG ####[facility] LABCLIA [id number] [place] [address] [place] Lactate [Moles/Vol] 1.2 mmol/L Normal 0.5-2.2 [facility] Comment on above: Order Comment: Speci men Type: ARTERIAL BLOOD SPECIMENOrdering Facility: [facility] Address: [address] [place] [address] Performed By: #### A LLBG ####[facility] LABCLIA [id number] [place] [address] [place] Methemoglobin (Bld) [Mass fraction] 0.3 % Normal 0.0-1.5 [facility] Comment on above: Order Comment: Speci men Type: ARTERIAL BLOOD SPECIMENOrdering Facility: [facility] Address: [address] [place] [address] Performed By: #### A LLBG ####[facility] LABIA [id number] [place] [address] [place] O2 THERAPY Hi-Flow Nasal Cannula-Heated Normal [facility] Comment on above: Order Comment: Speci men Type: ARTERIAL BLOOD SPECIMENOrdering Facility: [facility] Address: [address] [place] [address] Performed By: #### A LLBG ####[facility] LABIA [id number] [place] [address] [place] Oxygen (Bld) [Partial pressure] 78 mm Hg Low 85-95 [facility] Comment on above: Order Comment: Speci men Type: ARTERIAL BLOOD SPECIMENOrdering Facility: [facility] Address: [address] [place] [address] Performed By: #### A LLBG ####[facility] LABIA [id number] [place] [address] [place] Oxyhemoglobin (BldA) [Mass fraction] 94 % Low 95-98 [facility] Comment on above: Order Comment: Speci men Type: ARTERIAL BLOOD SPECIMENOrdering Facility: [facility] Address: [address] [place] [address] Performed By: #### A LLBG ####[facility] LABIA [id number] [place] [address] [place] pH (Bld) 7.41 [pH] Normal 7.35-7.45 [facility] Comment on above: Order Comment: Speci men Type: ARTERIAL BLOOD SPECIMENOrdering Facility: [facility] Address: [address] [place] [address] Performed By: #### A LLBG ####[facility] LABIA [id number] [place] [address] [place] Potassium [Moles/Vol] 3.7 mmol/L Normal 3.5-5.[address] [facility] Comment on above: Order Comment: Speci men Type: ARTERIAL BLOOD SPECIMENOrdering Facility: [facility] Address: [address] [place] [address] Performed By: #### A LLBG ####[facility] LABCLIA [id number] [place] [address] [place] Sodium [Moles/Vol] 140 mmol/L Normal 136-144 [facility] Comment on above: Order Comment: Speci men Type: ARTERIAL BLOOD SPECIMENOrdering Facility: [facility] Address: [address] [place] [address] Performed By: #### A LLBG ####[facility] LABCLIA [id number] [place] [address] [place] Base deficit (BldA) [Moles/Vol] -1 mmol/L Normal -2-0 [facility] Comment on above: Order Comment: Speci men Type: ARTERIAL BLOOD SPECIMENOrdering Facility: [facility] Address: [address] [place] [address] Performed By: #### A LLBG ####[facility] LABCLIA [id number] [place] [address] [place] Body temperature 98.6 [degF] Normal [facility] Comment on above: Order Comment: Speci men Type: ARTERIAL BLOOD SPECIMENOrdering Facility: [facility] Address: [address] [place] [address] Performed By: #### A LLBG ####[facility] LABCLIA [id number] [place] [address] [place] Calcium.ionized (Bld) [Mass/Vol] 1.18 mmol/L Normal 1.08-1.30 [facility] Comment on above: Order Comment: Speci men Type: ARTERIAL BLOOD SPECIMENOrdering Facility: [facility] Address: [address] [place] [address] Performed By: #### A LLBG ####[facility] LABIA [id number] [place] [address] [place] Calcium.ionized adjusted to pH 7.4 (BldA) [Moles/Vol] 1.18 mmol/L Normal 1.08-1.30 [facility] Comment on above: Order Comment: Speci men Type: ARTERIAL BLOOD SPECIMENOrdering Facility: [facility] Address: [address] [place] [address] Performed By: #### A LLBG ####[facility] LABIA [id number] [place] [address] [place] Carboxyhemoglobin (BldA) [Mass fraction] 1.8 % Normal 0.0-2.0 [facility] Comment on above: Order Comment: Speci men Type: ARTERIAL BLOOD SPECIMENOrdering Facility: [facility] Address: [address] [place] [address] Result Comment: Carb oxyhemoglobin Reference Range for Smokers: 2.0-8.0% Performed By: #### A LLBG ####[facility] LABIA [id number] [place] [address] [place] CO2 (Bld) [Partial pressure] 38 mm Hg Normal 36-46 [facility] Comment on above: Order Comment: Speci men Type: ARTERIAL BLOOD SPECIMENOrdering Facility: [facility] Address: [address] [place] [address] Performed By: #### A LLBG ####[facility] LABIA [id number] [place] [address] [place] Glucose [Mass/Vol] 97 mg/dL Normal 60-105 [facility] Comment on above: Order Comment: Speci men Type: ARTERIAL BLOOD SPECIMENOrdering Facility: [facility] Address: [address] [place] [address] Performed By: #### A LLBG ####[facility] LABIA [id number] [place] [address] [place] HCO3 (Bld) [Moles/Vol] 23 mmol/L Normal 22-26 [facility] Comment on above: Order Comment: Speci men Type: ARTERIAL BLOOD SPECIMENOrdering Facility: [facility] Address: [address] [place] [address] Performed By: #### A LLBG ####[facility] LABCLIA [id number] [place] [address] [place] Hematocrit (Bld) [Volume fraction] 28.2 % Low 36.0-46.0 [facility] Comment on above: Order Comment: Speci men Type: ARTERIAL BLOOD SPECIMENOrdering Facility: [facility] Address: [address] [place] [address] Performed By: #### A LLBG ####[facility] LABCLIA [id number] [place] [address] [place] Hemoglobin (Bld) [Mass/Vol] 9.1 g/dL Low 11.5-15.5 [facility] Comment on above: Order Comment: Speci men Type: ARTERIAL BLOOD SPECIMENOrdering Facility: [facility] Address: [address] [place] [address] Performed By: #### A LLBG ####[facility] LABIA [id number] [place] [address] [place] Lactate [Moles/Vol] 1.1 mmol/L Normal 0.5-2.2 [facility] Comment on above: Order Comment: Speci men Type: ARTERIAL BLOOD SPECIMENOrdering Facility: [facility] Address: [address] [place] [address] Performed By: #### A LLBG ####[facility] LABCLIA [id number] [place] [address] [place] Methemoglobin (Bld) [Mass fraction] 0.6 % Normal 0.0-1.5 [facility] Comment on above: Order Comment: Speci men Type: ARTERIAL BLOOD SPECIMENOrdering Facility: [facility] Address: [address] [place] [place] [id number] Performed By: #### A LLBG ####[facility] LABCLIA [id number] [place] [id number] [place] O2 THERAPY Positive Normal [facility] Comment on above: Order Comment: Speci men Type: ARTERIAL BLOOD SPECIMENOrdering Facility: [facility] Address: [address] [place] [address] Performed By: #### A LLBG ####[facility] LABCLIA [id number] [place] [address] [place] Oxygen (Bld) [Partial pressure] 127 mm Hg High 85-95 [facility] Comment on above: Order Comment: Speci men Type: ARTERIAL BLOOD SPECIMENOrdering Facility: [facility] Address: [address] [place] [address] Performed By: #### A LLBG ####[facility] LABCLIA [id number] [place] [address] [place] Oxyhemoglobin (BldA) [Mass fraction] 97 % Normal 95-98 [facility] Comment on above: Order Comment: Speci men Type: ARTERIAL BLOOD SPECIMENOrdering Facility: [facility] Address: [address] [place] [address] Performed By: #### A LLBG ####[facility] LABCLIA [id number] [place] [id number] [place] pH (Bld) 7.40 [pH] Normal 7.35-7.45 [facility] Comment on above: Order Comment: Speci men Type: ARTERIAL BLOOD SPECIMENOrdering Facility: [facility] Address: [address] [place], [place] [id number] Performed By: #### A LLBG ####[facility] LABCLIA [id number] [place] [id number] [place] Potassium [Moles/Vol] 3.7 mmol/L Normal 3.5-5.[address] [facility] Comment on above: Order Comment: Speci men Type: ARTERIAL BLOOD SPECIMENOrdering Facility: [facility] Address: [address] [place] [address] Performed By: #### A LLBG ####[facility] LABCLIA [id number] [place] [address] [place] Sodium [Moles/Vol] 140 mmol/L Normal 136-144 [facility] Comment on above: Order Comment: Speci men Type: ARTERIAL BLOOD SPECIMENOrdering Facility: [facility] Address: [address] [place] [address] Performed By: #### A LLBG ####[facility] LABCLIA [id number] [place] [address] [place] Base excess Calc (Bld) [Moles/Vol] 0 mmol/L Normal 0-2 [facility] Comment on above: Order Comment: Speci men Type: ARTERIAL BLOOD SPECIMENOrdering Facility: [facility] Address: [address] [place] [address] Performed By: #### A LLBG ####[facility] LABCLIA [id number] [place] [address] [place] Body temperature 98.6 [degF] Normal [facility] Comment on above: Order Comment: Speci men Type: ARTERIAL BLOOD SPECIMENOrdering Facility: [facility] Address: [address] [place] [address] Performed By: #### A LLBG ####[facility] LABCLIA [id number] [place] [address] [place] Calcium.ionized (Bld) [Mass/Vol] 1.18 mmol/L Normal 1.08-1.30 [facility] Comment on above: Order Comment: Speci men Type: ARTERIAL BLOOD SPECIMENOrdering Facility: [facility] Address: [address] [place] [address] Performed By: #### A LLBG ####[facility] LABIA [id number] [place] [address] [place] Calcium.ionized adjusted to pH 7.4 (BldA) [Moles/Vol] 1.16 mmol/L Normal 1.08-1.30 [facility] Comment on above: Order Comment: Speci men Type: ARTERIAL BLOOD SPECIMENOrdering Facility: [facility] Address: [address] [place] [address] Performed By: #### A LLBG ####[facility] LABIA [id number] [place] [address] [place] Carboxyhemoglobin (BldA) [Mass fraction] 1.5 % Normal 0.0-2.0 [facility] Comment on above: Order Comment: Speci men Type: ARTERIAL BLOOD SPECIMENOrdering Facility: [facility] Address: [address] [place] [address] Result Comment: Carb oxyhemoglobin Reference Range for Smokers: 2.0-8.0% Performed By: #### A LLBG ####[facility] LABIA [id number] [place] [address] [place] CO2 (Bld) [Partial pressure] 42 mm Hg Normal 36-46 [facility] Comment on above: Order Comment: Speci men Type: ARTERIAL BLOOD SPECIMENOrdering Facility: [facility] Address: [address] [place] [address] Performed By: #### A LLBG ####[facility] LABIA [id number] [place] [address] [place] Glucose [Mass/Vol] 86 mg/dL Normal 60-105 [facility] Comment on above: Order Comment: Speci men Type: ARTERIAL BLOOD SPECIMENOrdering Facility: [facility] Address: [address] [place] [address] Performed By: #### A LLBG ####[facility] LABCLIA [id number] [place] [address] [place] HCO3 (Bld) [Moles/Vol] 24 mmol/L Normal 22-26 [facility] Comment on above: Order Comment: Speci men Type: ARTERIAL BLOOD SPECIMENOrdering Facility: [facility] Address: [address] [place] [address] Performed By: #### A LLBG ####[facility] LABCLIA [id number] [place] [address] [place] Hematocrit (Bld) [Volume fraction] 28.6 % Low 36.0-46.0 [facility] Comment on above: Order Comment: Speci men Type: ARTERIAL BLOOD SPECIMENOrdering Facility: [facility] Address: [address] [place] [address] Performed By: #### A LLBG ####[facility] LABIA [id number] [place] [address] [place] Hemoglobin (Bld) [Mass/Vol] 9.2 g/dL Low 11.5-15.5 [facility] Comment on above: Order Comment: Speci men Type: ARTERIAL BLOOD SPECIMENOrdering Facility: [facility] Address: [address] [place] [address] Performed By: #### A LLBG ####[facility] LABCLIA [id number] [place] [address] [place] Lactate [Moles/Vol] 1.1 mmol/L Normal 0.5-2.2 [facility] Comment on above: Order Comment: Speci men Type: ARTERIAL BLOOD SPECIMENOrdering Facility: [facility] Address: [address] [place] [address] Performed By: #### A LLBG ####[facility] LABCLIA [id number] [place] [address] [place] Methemoglobin (Bld) [Mass fraction] 1.5 % Normal 0.0-1.5 [facility] Comment on above: Order Comment: Speci men Type: ARTERIAL BLOOD SPECIMENOrdering Facility: [facility] Address: [address] [place] [address] Performed By: #### A LLBG ####[facility] LABCLIA [id number] [place] [address] [place] O2 THERAPY Positive Normal [facility] Comment on above: Order Comment: Speci men Type: ARTERIAL BLOOD SPECIMENOrdering Facility: [facility] Address: [address] [place] [address] Performed By: #### A LLBG ####[facility] LABCLIA [id number] [place] [address] [place] Oxygen (Bld) [Partial pressure] 97 mm Hg High 85-95 [facility] Comment on above: Order Comment: Speci men Type: ARTERIAL BLOOD SPECIMENOrdering Facility: [facility] Address: [address] [place] [address] Performed By: #### A LLBG ####[facility] LABCLIA [id number] [place] [address] [place] Oxyhemoglobin (BldA) [Mass fraction] 95 % Normal 95-98 [facility] Comment on above: Order Comment: Speci men Type: ARTERIAL BLOOD SPECIMENOrdering Facility: [facility] Address: [address] [place] [address] Performed By: #### A LLBG ####[facility] LABCLIA [id number] [place] [address] [place] pH (Bld) 7.38 [pH] Normal 7.35-7.45 [facility] Comment on above: Order Comment: Speci men Type: ARTERIAL BLOOD SPECIMENOrdering Facility: [facility] Address: [address] [place] [address] Performed By: #### A LLBG ####[facility] LABCLIA [id number] [place] [address] [place] Potassium [Moles/Vol] 3.6 mmol/L Normal 3.5-5.[address] [facility] Comment on above: Order Comment: Speci men Type: ARTERIAL BLOOD SPECIMENOrdering Facility: [facility] Address: [address] [place] [address] Performed By: #### A LLBG ####[facility] LABCLIA [id number] [place] [address] [place] Sodium [Moles/Vol] 139 mmol/L Normal 136-144 [facility] Comment on above: Order Comment: Speci men Type: ARTERIAL BLOOD SPECIMENOrdering Facility: [facility] Address: [address] [place] [address] Performed By: #### A LLBG ####[facility] LABCLIA [id number] [place] [address] [place] Base excess Calc (Bld) [Moles/Vol] 0 mmol/L Normal 0-2 [facility] Comment on above: Order Comment: Speci men Type: ARTERIAL BLOOD SPECIMENOrdering Facility: [facility] Address: [address] [place] [address] Performed By: #### A LLBG ####[facility] LABCLIA [id number] [place] [address] [place] Body temperature 98.6 [degF] Normal [facility] Comment on above: Order Comment: Speci men Type: ARTERIAL BLOOD SPECIMENOrdering Facility: [facility] Address: [address] [place] [address] Performed By: #### A LLBG ####[facility] LABCLIA [id number] [place] [address] [place] Calcium.ionized (Bld) [Mass/Vol] 1.19 mmol/L Normal 1.08-1.30 [facility] Comment on above: Order Comment: Speci men Type: ARTERIAL BLOOD SPECIMENOrdering Facility: [facility] Address: [address] [place] [address] Performed By: #### A LLBG ####[facility] [id number] [place] [address] [place] Calcium.ionized adjusted to pH 7.4 (BldA) [Moles/Vol] 1.16 mmol/L Normal 1.08-1.30 [facility] Comment on above: Order Comment: Speci men Type: ARTERIAL BLOOD SPECIMENOrdering Facility: [facility] Address: [address] [place] [address] Performed By: #### A LLBG ####[facility] [id number] [place] [address] [place] Carboxyhemoglobin (BldA) [Mass fraction] 1.0 % Normal 0.0-2.0 [facility] Comment on above: Order Comment: Speci men Type: ARTERIAL BLOOD SPECIMENOrdering Facility: [facility] Address: [address] [place] [address] Result Comment: Carb oxyhemoglobin Reference Range for Smokers: 2.0-8.0% Performed By: #### A LLBG ####[facility] [id number] [place] [address] [place] CO2 (Bld) [Partial pressure] 45 mm Hg Normal 36-46 [facility] Comment on above: Order Comment: Speci men Type: ARTERIAL BLOOD SPECIMENOrdering Facility: [facility] Address: [address] [place] [address] Performed By: #### A LLBG ####[facility] [id number] [place] [address] [place] Glucose [Mass/Vol] 82 mg/dL Normal 60-105 [facility] Comment on above: Order Comment: Speci men Type: ARTERIAL BLOOD SPECIMENOrdering Facility: [facility] Address: [address] [place] [address] Performed By: #### A LLBG ####[facility] LABCLIA [id number] [place] [address] [place] HCO3 (Bld) [Moles/Vol] 25 mmol/L Normal 22-26 [facility] Comment on above: Order Comment: Speci men Type: ARTERIAL BLOOD SPECIMENOrdering Facility: [facility] Address: [address] [place] [address] Performed By: #### A LLBG ####[facility] LABCLIA [id number] [place] [address] [place] Hematocrit (Bld) [Volume fraction] 29.2 % Low 36.0-46.0 [facility] Comment on above: Order Comment: Speci men Type: ARTERIAL BLOOD SPECIMENOrdering Facility: [facility] Address: [address] [place] [address] Performed By: #### A LLBG ####[facility] LABIA [id number] [place] [address] [place] Hemoglobin (Bld) [Mass/Vol] 9.4 g/dL Low 11.5-15.5 [facility] Comment on above: Order Comment: Speci men Type: ARTERIAL BLOOD SPECIMENOrdering Facility: [facility] Address: [address] [place] [address] Performed By: #### A LLBG ####[facility] LABIA [id number] [place] [address] [place] Lactate [Moles/Vol] 0.9 mmol/L Normal 0.5-2.2 [facility] Comment on above: Order Comment: Speci men Type: ARTERIAL BLOOD SPECIMENOrdering Facility: [facility] Address: [address] [place] [address] Performed By: #### A LLBG ####[facility] LABCLIA [id number] [place] [address] [place] Methemoglobin (Bld) [Mass fraction] 1.0 % Normal 0.0-1.5 [facility] Comment on above: Order Comment: Speci men Type: ARTERIAL BLOOD SPECIMENOrdering Facility: [facility] Address: [address] [place] [address] Performed By: #### A LLBG ####[facility] LABCLIA [id number] [place] [address] [place] O2 THERAPY Hi-Flow Nasal Cannula-Heated Normal [facility] Comment on above: Order Comment: Speci men Type: ARTERIAL BLOOD SPECIMENOrdering Facility: [facility] Address: [address] [place] [address] Performed By: #### A LLBG ####[facility] LABCLIA [id number] [place] [address] [place] Oxygen (Bld) [Partial pressure] 165 mm Hg High 85-95 [facility] Comment on above: Order Comment: Speci men Type: ARTERIAL BLOOD SPECIMENOrdering Facility: [facility] Address: [address] [place] [address] Performed By: #### A LLBG ####[facility] LABCLIA [id number] [place] [address] [place] Oxyhemoglobin (BldA) [Mass fraction] 97 % Normal 95-98 [facility] Comment on above: Order Comment: Speci men Type: ARTERIAL BLOOD SPECIMENOrdering Facility: [facility] Address: [address] [place] [address] Performed By: #### A LLBG ####[facility] LABCLIA [id number] [place] [id number] [place] pH (Bld) 7.36 [pH] Normal 7.35-7.45 [facility] Comment on above: Order Comment: Speci men Type: ARTERIAL BLOOD SPECIMENOrdering Facility: [facility] Address: [address] [place] [address] Performed By: #### A LLBG ####[facility] LABCLIA [id number] [place] [address] [place] Potassium [Moles/Vol] 3.6 mmol/L Normal 3.5-5.[address] [facility] Comment on above: Order Comment: Speci men Type: ARTERIAL BLOOD SPECIMENOrdering Facility: [facility] Address: [address] [place] [address] Performed By: #### A LLBG ####[facility] LABCLIA [id number] [place] [address] [place] Sodium [Moles/Vol] 140 mmol/L Normal 136-144 [facility] Comment on above: Order Comment: Speci men Type: ARTERIAL BLOOD SPECIMENOrdering Facility: [facility] Address: [address] [place] [address] Performed By: #### A LLBG ####[facility] LABIA [id number] [place] [address] [place] Base excess Calc (Bld) [Moles/Vol] 1 mmol/L Normal 0-2 [facility] Comment on above: Order Comment: Speci men Type: ARTERIAL BLOOD SPECIMENOrdering Facility: [facility] Address: [address] [place] [address] Performed By: #### A LLBG ####[facility] LABIA [id number] [place] [address] [place] Body temperature 98.6 [degF] Normal [facility] Comment on above: Order Comment: Speci men Type: ARTERIAL BLOOD SPECIMENOrdering Facility: [facility] Address: [address] [place] [address] Performed By: #### A LLBG ####[facility] LABIA [id number] [place] [address] [place] Calcium.ionized (Bld) [Mass/Vol] 1.17 mmol/L Normal 1.08-1.30 [facility] Comment on above: Order Comment: Speci men Type: ARTERIAL BLOOD SPECIMENOrdering Facility: [facility] Address: [address] [place] [address] Performed By: #### A LLBG ####[facility] LABIA [id number] [place] [address] [place] Calcium.ionized adjusted to pH 7.4 (BldA) [Moles/Vol] 1.13 mmol/L Normal 1.08-1.30 [facility] Comment on above: Order Comment: Speci men Type: ARTERIAL BLOOD SPECIMENOrdering Facility: [facility] Address: [address] [place] [address] Performed By: #### A LLBG ####[facility] LABIA [id number] [place] [address] [place] Carboxyhemoglobin (BldA) [Mass fraction] 1.8 % Normal 0.0-2.0 [facility] Comment on above: Order Comment: Speci men Type: ARTERIAL BLOOD SPECIMENOrdering Facility: [facility] Address: [address] [place] [address] Result Comment: Carb oxyhemoglobin Reference Range for Smokers: 2.0-8.0% Performed By: #### A LLBG ####[facility] LABIA [id number] [place] [address] [place] CO2 (Bld) [Partial pressure] 50 mm Hg High 36-46 [facility] Comment on above: Order Comment: Speci men Type: ARTERIAL BLOOD SPECIMENOrdering Facility: [facility] Address: [address] [place] [address] Performed By: #### A LLBG ####[facility] LABIA [id number] [place] [address] [place] Glucose [Mass/Vol] 87 mg/dL Normal 60-105 [facility] Comment on above: Order Comment: Speci men Type: ARTERIAL BLOOD SPECIMENOrdering Facility: [facility] Address: [address] [place] [address] Performed By: #### A LLBG ####[facility] LABCLIA [id number] [place] [address] [place] HCO3 (Bld) [Moles/Vol] 26 mmol/L Normal 22-26 [facility] Comment on above: Order Comment: Speci men Type: ARTERIAL BLOOD SPECIMENOrdering Facility: [facility] Address: [address] [place] [address] Performed By: #### A LLBG ####[facility] LABCLIA [id number] [place] [address] [place] Hematocrit (Bld) [Volume fraction] 27.1 % Low 36.0-46.0 [facility] Comment on above: Order Comment: Speci men Type: ARTERIAL BLOOD SPECIMENOrdering Facility: [facility] Address: [address] [place] [address] Performed By: #### A LLBG ####[facility] LABCLIA [id number] [place] [address] [place] Hemoglobin (Bld) [Mass/Vol] 8.7 g/dL Low 11.5-15.5 [facility] Comment on above: Order Comment: Speci men Type: ARTERIAL BLOOD SPECIMENOrdering Facility: [facility] Address: [address] [place] [address] Performed By: #### A LLBG ####[facility] LABCLIA [id number] [place] [address] [place] Lactate [Moles/Vol] 0.7 mmol/L Normal 0.5-2.2 [facility] Comment on above: Order Comment: Speci men Type: ARTERIAL BLOOD SPECIMENOrdering Facility: [facility] Address: [address] [place] [address] Performed By: #### A LLBG ####[facility] LABCLIA [id number] [place] [address] [place] Methemoglobin (Bld) [Mass fraction] 0.5 % Normal 0.0-1.5 [facility] Comment on above: Order Comment: Speci men Type: ARTERIAL BLOOD SPECIMENOrdering Facility: [facility] Address: [address] [place] [address] Performed By: #### A LLBG ####[facility] LABCLIA [id number] [place] [address] [place] O2 THERAPY Hi-Flow Nasal Cannula-Heated Normal [facility] Comment on above: Order Comment: Speci men Type: ARTERIAL BLOOD SPECIMENOrdering Facility: [facility] Address: [address] [place] [address] Performed By: #### A LLBG ####[facility] LABCLIA [id number] [place] [address] [place] Oxygen (Bld) [Partial pressure] 124 mm Hg High 85-95 [facility] Comment on above: Order Comment: Speci men Type: ARTERIAL BLOOD SPECIMENOrdering Facility: [facility] Address: [address] [place] [address] Performed By: #### A LLBG ####[facility] LABCLIA [id number] [place] [address] [place] Oxyhemoglobin (BldA) [Mass fraction] 97 % Normal 95-98 [facility] Comment on above: Order Comment: Speci men Type: ARTERIAL BLOOD SPECIMENOrdering Facility: [facility] Address: [address] [place] [address] Performed By: #### A LLBG ####[facility] LABCLIA [id number] [place] [address] [place] pH (Bld) 7.34 [pH] Low 7.35-7.45 [facility] Comment on above: Order Comment: Speci men Type: ARTERIAL BLOOD SPECIMENOrdering Facility: [facility] Address: [address] [place] [address] Performed By: #### A LLBG ####[facility] LABCLIA [id number] [place] [address] [place] Potassium [Moles/Vol] 4.0 mmol/L Normal 3.5-5.[address] [facility] Comment on above: Order Comment: Speci men Type: ARTERIAL BLOOD SPECIMENOrdering Facility: [facility] Address: [address] [place] [address] Performed By: #### A LLBG ####[facility] LABCLIA [id number] [place] [address] [place] Sodium [Moles/Vol] 138 mmol/L Normal 136-144 [facility] Comment on above: Order Comment: Speci men Type: ARTERIAL BLOOD SPECIMENOrdering Facility: [facility] Address: [address] [place] [address] Performed By: #### A LLBG ####[facility] LABCLIA [id number] [place] [address] [place] Base excess Calc (Bld) [Moles/Vol] 0 mmol/L Normal 0-2 [facility] Comment on above: Order Comment: Speci men Type: ARTERIAL BLOOD SPECIMENOrdering Facility: [facility] Address: [address] [place] [address] Performed By: #### A LLBG ####[facility] LABIA [id number] [place] [address] [place] Body temperature 98.6 [degF] Normal [facility] Comment on above: Order Comment: Speci men Type: ARTERIAL BLOOD SPECIMENOrdering Facility: [facility] Address: [address] [place] [address] Performed By: #### A LLBG ####[facility] LABCLIA [id number] [place] [address] [place] Order Comment: Speci men Type: VENOUS BLOOD SPECIMENOrdering Facility: [facility] Address: [address] [place] [address] Performed By: #### 2 4344-4 ####[facility] [id number] [place] [address] [place] Calcium.ionized (Bld) [Mass/Vol] 1.21 mmol/L Normal 1.08-1.30 [facility] Comment on above: Order Comment: Speci men Type: ARTERIAL BLOOD SPECIMENOrdering Facility: [facility] Address: [address] [place] [address] Performed By: #### A LLBG ####[facility] [id number] [place] [address] [place] Calcium.ionized adjusted to pH 7.4 (BldA) [Moles/Vol] 1.17 mmol/L Normal 1.08-1.30 [facility] Comment on above: Order Comment: Speci men Type: ARTERIAL BLOOD SPECIMENOrdering Facility: [facility] Address: [address] [place] [address] Performed By: #### A LLBG ####[facility] [id number] [place] [address] [place] Carboxyhemoglobin (BldA) [Mass fraction] 0.9 % Normal 0.0-2.0 [facility] Comment on above: Order Comment: Speci men Type: ARTERIAL BLOOD SPECIMENOrdering Facility: [facility] Address: [address] [place] [address] Result Comment: Carb oxyhemoglobin Reference Range for Smokers: 2.0-8.0% Performed By: #### A LLBG ####[facility] [id number] [place] [address] [place] CO2 (Bld) [Partial pressure] 49 mm Hg High 36-46 [facility] Comment on above: Order Comment: Speci men Type: ARTERIAL BLOOD SPECIMENOrdering Facility: [facility] Address: [address] [place] [address] Performed By: #### A LLBG ####[facility] LABCLIA [id number] [place] [address] [place] Glucose [Mass/Vol] 93 mg/dL Normal 60-105 [facility] Comment on above: Order Comment: Speci men Type: ARTERIAL BLOOD SPECIMENOrdering Facility: [facility] Address: [address] [place] [address] Performed By: #### A LLBG ####[facility] LABCLIA [id number] [place] [address] [place] HCO3 (Bld) [Moles/Vol] 25 mmol/L Normal 22-26 [facility] Comment on above: Order Comment: Speci men Type: ARTERIAL BLOOD SPECIMENOrdering Facility: [facility] Address: [address] [place] [address] Performed By: #### A LLBG ####[facility] LABCLIA [id number] [place] [address] [place] Hematocrit (Bld) [Volume fraction] 27.7 % Low 36.0-46.0 [facility] Comment on above: Order Comment: Speci men Type: ARTERIAL BLOOD SPECIMENOrdering Facility: [facility] Address: [address] [place] [address] Performed By: #### A LLBG ####[facility] LABCLIA [id number] [place] [address] [place] Hemoglobin (Bld) [Mass/Vol] 8.9 g/dL Low 11.5-15.5 [facility] Comment on above: Order Comment: Speci men Type: ARTERIAL BLOOD SPECIMENOrdering Facility: [facility] Address: [address] [place] [address] Performed By: #### A LLBG ####[facility] LABCLIA [id number] [place] [address] [place] Lactate [Moles/Vol] 0.7 mmol/L Normal 0.5-2.2 [facility] Comment on above: Order Comment: Speci men Type: ARTERIAL BLOOD SPECIMENOrdering Facility: [facility] Address: [address] [place] [address] Performed By: #### A LLBG ####[facility] LABCLIA [id number] [place] [address] [place] Order Comment: Speci men Type: VENOUS BLOOD SPECIMENOrdering Facility: [facility] Address: [address] [place] [address] Performed By: #### 2 4344-4 ####[facility] LABCLIA [id number] [place] [address] [place] Methemoglobin (Bld) [Mass fraction] 1.1 % Normal 0.0-1.5 [facility] Comment on above: Order Comment: Speci men Type: ARTERIAL BLOOD SPECIMENOrdering Facility: [facility] Address: [address] [place] [address] Performed By: #### A LLBG ####[facility] LABCLIA [id number] [place] [address] [place] O2 THERAPY Hi-Flow Nasal Cannula-Heated Normal [facility] Comment on above: Order Comment: Speci men Type: ARTERIAL BLOOD SPECIMENOrdering Facility: [facility] Address: [address] [place] [address] Performed By: #### A LLBG ####[facility] LABCLIA [id number] [place] [address] [place] Order Comment: Speci men Type: VENOUS BLOOD SPECIMENOrdering Facility: [facility] Address: [address] [place] [address] Performed By: #### 2 4344-4 ####[facility] LABCLIA [id number] [place] [address] [place] Oxygen (Bld) [Partial pressure] 136 mm Hg High 85-95 [facility] Comment on above: Order Comment: Speci men Type: ARTERIAL BLOOD SPECIMENOrdering Facility: [facility] Address: [address] [place] [address] Performed By: #### A LLBG ####[facility] LABCLIA [id number] [place] [address] [place] Oxyhemoglobin (BldA) [Mass fraction] 97 % Normal 95-98 [facility] Comment on above: Order Comment: Speci men Type: ARTERIAL BLOOD SPECIMENOrdering Facility: [facility] Address: [address] [place] [address] Performed By: #### A LLBG ####[facility] LABCLIA [id number] [place] [address] [place] pH (Bld) 7.33 [pH] Low 7.35-7.45 [facility] Comment on above: Order Comment: Speci men Type: ARTERIAL BLOOD SPECIMENOrdering Facility: [facility] Address: [address] [place] [address] Performed By: #### A LLBG ####[facility] LABCLIA [id number] [place] [address] [place] Potassium [Moles/Vol] 3.7 mmol/L Normal 3.5-5.[address] [facility] Comment on above: Order Comment: Speci men Type: ARTERIAL BLOOD SPECIMENOrdering Facility: [facility] Address: [address] [place] [address] Performed By: #### A LLBG ####[facility] LABCLIA [id number] [place] [address] [place] Order Comment: Speci men Type: VENOUS BLOOD SPECIMENOrdering Facility: [facility] Address: [address] [place] [address] Performed By: #### 2 4344-4 ####[facility] LABCLIA [id number] [place] [address] [place] Sodium [Moles/Vol] 138 mmol/L Normal 136-144 [facility] Comment on above: Order Comment: Speci men Type: ARTERIAL BLOOD SPECIMENOrdering Facility: [facility] Address: [address] [place] [address] Performed By: #### A LLBG ####[facility] LABCLIA [id number] [place] [address] [place] Base excess Calc (Bld) [Moles/Vol] 0 mmol/L Normal 0-2 [facility] Comment on above: Order Comment: Speci men Type: ARTERIAL BLOOD SPECIMENOrdering Facility: [facility] Address: [address] [place] [address] Performed By: #### A LLBG ####[facility] LABCLIA [id number] [place] [address] [place] Body temperature 98.6 [degF] Normal [facility] Comment on above: Order Comment: Speci men Type: ARTERIAL BLOOD SPECIMENOrdering Facility: [facility] Address: [address] [place] [address] Performed By: #### A LLBG ####[facility] LABCLIA [id number] [place] [address] [place] Order Comment: Speci men Type: VENOUS BLOOD SPECIMENOrdering Facility: [facility] Address: [address] [place] [address] Performed By: #### 2 4344-4 ####[facility] LABCLIA [id number] [place] [address] [place] Calcium.ionized (Bld) [Mass/Vol] 1.19 mmol/L Normal 1.08-1.30 [facility] Comment on above: Order Comment: Speci men Type: ARTERIAL BLOOD SPECIMENOrdering Facility: [facility] Address: [address] [place] [address] Performed By: #### A LLBG ####[facility] LABCLIA [id number] [place] [address] [place] Order Comment: Speci men Type: VENOUS BLOOD SPECIMENOrdering Facility: [facility] Address: [address] [place] [address] Performed By: #### 2 4344-4 ####[facility] LABCLIA [id number] [place] [address] [place] Calcium.ionized adjusted to pH 7.4 (BldA) [Moles/Vol] 1.14 mmol/L Normal 1.08-1.30 [facility] Comment on above: Order Comment: Speci men Type: ARTERIAL BLOOD SPECIMENOrdering Facility: [facility] Address: [address] [place] [address] Performed By: #### A LLBG ####[facility] LABIA [id number] [place] [address] [place] Carboxyhemoglobin (BldA) [Mass fraction] 1.2 % Normal 0.0-2.0 [facility] Comment on above: Order Comment: Speci men Type: ARTERIAL BLOOD SPECIMENOrdering Facility: [facility] Address: [address] [place] [address] Result Comment: Carb oxyhemoglobin Reference Range for Smokers: 2.0-8.0% Performed By: #### A LLBG ####[facility] LABIA [id number] [place] [address] [place] CO2 (Bld) [Partial pressure] 49 mm Hg High 36-46 [facility] Comment on above: Order Comment: Speci men Type: ARTERIAL BLOOD SPECIMENOrdering Facility: [facility] Address: [address] [place] [address] Performed By: #### A LLBG ####[facility] LABCLIA [id number] [place] [address] [place] Glucose [Mass/Vol] 106 mg/dL High 60-105 [facility] Comment on above: Order Comment: Speci men Type: ARTERIAL BLOOD SPECIMENOrdering Facility: [facility] Address: [address] [place] [address] Performed By: #### A LLBG ####[facility] LABCLIA [id number] [place] [address] [place] HCO3 (Bld) [Moles/Vol] 25 mmol/L Normal 22-26 [facility] Comment on above: Order Comment: Speci men Type: ARTERIAL BLOOD SPECIMENOrdering Facility: [facility] Address: [address] [place] [address] Performed By: #### A LLBG ####[facility] LABCLIA [id number] [place] [address] [place] Hematocrit (Bld) [Volume fraction] 26.2 % Low 36.0-46.0 [facility] Comment on above: Order Comment: Speci men Type: ARTERIAL BLOOD SPECIMENOrdering Facility: [facility] Address: [address] [place] [address] Performed By: #### A LLBG ####[facility] LABCLIA [id number] [place] [address] [place] Hemoglobin (Bld) [Mass/Vol] 8.4 g/dL Low 11.5-15.5 [facility] Comment on above: Order Comment: Speci men Type: ARTERIAL BLOOD SPECIMENOrdering Facility: [facility] Address: [address] [place] [address] Performed By: #### A LLBG ####[facility] LABCLIA [id number] [place] [address] [place] Order Comment: Speci men Type: BLOOD SPECIMENOrdering Facility: [facility] Address: [address] [place] [address] Performed By: #### 5 8410-2 ####[facility] LABCLIA [id number] [place] [address] [place] Lactate [Moles/Vol] 0.8 mmol/L Normal 0.5-2.2 [facility] Comment on above: Order Comment: Speci men Type: ARTERIAL BLOOD SPECIMENOrdering Facility: [facility] Address: [address] [place] [address] Performed By: #### A LLBG ####[facility] LABCLIA [id number] [address] [place] Order Comment: Speci men Type: VENOUS BLOOD SPECIMENOrdering Facility: [facility] Address: [address] [place] [address] Performed By: #### 2 4344-4 ####[facility] LABCLIA [id number] [address] [address] Methemoglobin (Bld) [Mass fraction] 0.5 % Normal 0.0-1.5 [facility] Comment on above: Order Comment: Speci men Type: ARTERIAL BLOOD SPECIMENOrdering Facility: [facility] Address: [address] [place] [address] Performed By: #### A LLBG ####[facility] LABIA [id number] [place] [address] [place] O2 THERAPY Hi-Flow Nasal Cannula-Heated Normal [facility] Comment on above: Order Comment: Speci men Type: ARTERIAL BLOOD SPECIMENOrdering Facility: [facility] Address: [address] [place] [address] Performed By: #### A LLBG ####[facility] LABCLIA [id number] [place] [address] [place] Order Comment: Speci men Type: VENOUS BLOOD SPECIMENOrdering Facility: [facility] Address: [address] [place] [address] Performed By: #### 2 4344-4 ####[facility] LABCLIA [id number] [place] [address] [place] Oxygen (Bld) [Partial pressure] 114 mm Hg High 85-95 [facility] Comment on above: Order Comment: Speci men Type: ARTERIAL BLOOD SPECIMENOrdering Facility: [facility] Address: [address] [place] [address] Performed By: #### A LLBG ####[facility] LABCLIA [id number] [place] [address] [place] Oxyhemoglobin (BldA) [Mass fraction] 97 % Normal 95-98 [facility] Comment on above: Order Comment: Speci men Type: ARTERIAL BLOOD SPECIMENOrdering Facility: [facility] Address: [address] [place] [address] Performed By: #### A LLBG ####[facility] LABCLIA [id number] [place] [address] [place] pH (Bld) 7.33 [pH] Low 7.35-7.45 [facility] Comment on above: Order Comment: Speci men Type: ARTERIAL BLOOD SPECIMENOrdering Facility: [facility] Address: [address] [place] [address] Performed By: #### A LLBG ####[facility] LABCLIA [id number] [place] [address] [place] Potassium [Moles/Vol] 3.7 mmol/L Normal 3.5-5.[address] [facility] Comment on above: Order Comment: Speci men Type: ARTERIAL BLOOD SPECIMENOrdering Facility: [facility] Address: [address] [place] [address] Performed By: #### A LLBG ####[facility] LABCLIA [id number] [place] [address] [place] Order Comment: Speci men Type: BLOOD SPECIMENOrdering Facility: [facility] Address: [address] [place] [address] Performed By: #### 2 4323-8 ####[facility] LABCLIA [id number] [address] [place] Order Comment: Speci men Type: VENOUS BLOOD SPECIMENOrdering Facility: [facility] Address: [address] [place] [address] Performed By: #### 2 4344-4 ####[facility] LABCLIA [id number] [place] [address] [place] Sodium [Moles/Vol] 138 mmol/L Normal 136-144 [facility] Comment on above: Order Comment: Speci men Type: ARTERIAL BLOOD SPECIMENOrdering Facility: [facility] Address: [address] [place] [address] Performed By: #### A LLBG ####[facility] LABCLIA [id number] [address] [place] CBC panel Auto (Bld)on 10-30 Erythrocyte distribution width (RBC) [Ratio] 14.7 % Normal 11.5-15.0 [facility] Comment on above: Order Comment: Speci men Type: BLOOD SPECIMENOrdering Facility: [facility] Address: [address] [place] [address] Performed By: #### 5 8410-2 ####[facility] LABCLIA [id number] [address] [place] Hematocrit (Bld) [Volume fraction] 26.3 % Low 36.0-46.0 [facility] Comment on above: Order Comment: Speci men Type: BLOOD SPECIMENOrdering Facility: [facility] Address: [address] [place] [address] Performed By: #### 5 8410-2 ####[facility] LABCLIA [id number] [place] [address] [place] MCH (RBC) [Entitic mass] 31.9 pg Normal 26.0-34.0 [facility] Comment on above: Order Comment: Speci men Type: BLOOD SPECIMENOrdering Facility: [facility] Address: [address] [place] [address] Performed By: #### 5 8410-2 ####[facility] LABCLIA [id number] [place] [address] [place] MCHC (RBC) [Mass/Vol] 31.9 g/dL Normal 30.5-36.[address] [facility] Comment on above: Order Comment: Speci men Type: BLOOD SPECIMENOrdering Facility: [facility] Address: [address] [place] [address] Performed By: #### 5 8410-2 ####[facility] LABCLIA [id number] [place] [address] [place] MCV (RBC) [Entitic vol] 100.0 fL Normal 80.0-100.0 [facility] Comment on above: Order Comment: Speci men Type: BLOOD SPECIMENOrdering Facility: [facility] Address: [address] [place] [address] Performed By: #### 5 8410-2 ####[facility] LABIA [id number] [place] [address] [place] Nucleated RBC (Bld) [#/Vol] 10*3/uL Normal <0.01 [facility] Comment on above: Order Comment: Speci men Type: BLOOD SPECIMENOrdering Facility: [facility] Address: [address] [place] [address] Performed By: #### 5 8410-2 ####[facility] LABCLIA [id number] [place] [address] [place] Platelet mean volume (Bld) [Entitic vol] 9.3 fL Normal 9.0-12.7 [facility] Comment on above: Order Comment: Speci men Type: BLOOD SPECIMENOrdering Facility: [facility] Address: [address] [place] [address] Performed By: #### 5 8410-2 ####[facility] LABCLIA [id number] [place] [address] [place] Platelets (Bld) [#/Vol] 142 10*3/uL Low 150-400 [facility] Comment on above: Order Comment: Speci men Type: BLOOD SPECIMENOrdering Facility: [facility] Address: [address] [place] [address] Performed By: #### 5 8410-2 ####[facility] LABIA [id number] [place] [address] [place] RBC (Bld) [#/Vol] 2.63 10*6/uL Low 3.90-5.20 [facility] Comment on above: Order Comment: Speci men Type: BLOOD SPECIMENOrdering Facility: [facility] Address: [address] [place] [address] Performed By: #### 5 8410-2 ####[facility] [id number] [place] [address] [place] WBC (Bld) [#/Vol] 7.45 10*3/uL Normal 3.70-11.00 [facility] Comment on above: Order Comment: Speci men Type: BLOOD SPECIMENOrdering Facility: [facility] Address: [address] [place] [address] Performed By: #### 5 8410-2 ####[facility] LABIA [id number] [place] [address] [place] CONSULT PROGon 10-31-2023 CONSULT PROG Normal [facility] Comprehensive metabolic 2000 panelon 10-31-2023 Albumin [Mass/Vol] 3.2 g/dL Low 3.9-4.9 [facility] Comment on above: Order Comment: Speci men Type: BLOOD SPECIMENOrdering Facility: [facility] Address: [address] [place] [address] Performed By: #### 2 4323-8 ####[facility] LABCLIA [id number] [place] [address] [place] ALP [Catalytic activity/Vol] 53 U/L Normal 34-123 [facility] Comment on above: Order Comment: Speci men Type: BLOOD SPECIMENOrdering Facility: [facility] Address: [address] [place] [address] Performed By: #### 2 4323-8 ####[facility] LABCLIA [id number] [place] [address] [place] ALT [Catalytic activity/Vol] 31 U/L Normal 7-38 [facility] Comment on above: Order Comment: Speci men Type: BLOOD SPECIMENOrdering Facility: [facility] Address: [address] [place] [address] Performed By: #### 2 4323-8 ####[facility] LABCLIA [id number] [place] [address] [place] Anion gap [Moles/Vol] 12 mmol/L Normal 8-[address] [facility] Comment on above: Order Comment: Speci men Type: BLOOD SPECIMENOrdering Facility: [facility] Address: [address] [place] [address] Performed By: #### 2 4323-8 ####[facility] LABCLIA [id number] [place] [address] [place] AST [Catalytic activity/Vol] 45 U/L High 13-35 [facility] Comment on above: Order Comment: Speci men Type: BLOOD SPECIMENOrdering Facility: [facility] Address: [address] [place] [address] Performed By: #### 2 4323-8 ####[facility] LABCLIA [id number] [place] [address] [place] Bilirubin [Mass/Vol] 0.5 mg/dL Normal 0.2-1.3 [facility] Comment on above: Order Comment: Speci men Type: BLOOD SPECIMENOrdering Facility: [facility] Address: [address] [place] [place] [address], [place] [address] Performed By: #### 2 4323-8 ####[facility] LABCLIA [id number] [address] [address] [place] Calcium [Mass/Vol] 8.6 mg/dL Normal 8.5-10.2 [facility] Comment on above: Order Comment: Speci men Type: BLOOD SPECIMENOrdering Facility: [facility] Address: [address] [place], [place] [address] Performed By: #### 2 4323-8 ####[facility] LABCLIA [id number] [place] [address] [place] Chloride [Moles/Vol] 104 mmol/L Normal 98-107 [facility] Comment on above: Order Comment: Speci men Type: BLOOD SPECIMENOrdering Facility: [facility] Address: [address] [place] [address] Performed By: #### 2 4323-8 ####[facility] LABCLIA [id number] [place] [address] [place] CO2 [Moles/Vol] 23 mmol/L Normal 22-30 [facility] Comment on above: Order Comment: Speci men Type: BLOOD SPECIMENOrdering Facility: [facility] Address: [address] [place] [address] Performed By: #### 2 4323-8 ####[facility] LABCLIA [id number] [address] [address] [place] Creatinine [Mass/Vol] 1.57 mg/dL High 0.58-0.[address] [facility] Comment on above: Order Comment: Speci men Type: BLOOD SPECIMENOrdering Facility: [facility] Address: [address] [place], [place] [address] Performed By: #### 2 4323-8 ####[facility] LABCLIA [id number] [address] [address] [place] Creatinine and Glomerular filtration rate.predicted panel (S/P/Bld) 37 mL/min/1.73m??? Low >=60 [facility] Comment on above: Order Comment: Ernie billy Type: BLOOD SPECIMENOrdering Facility: [facility] Address: [address] [place] [address] Result Comment: Malorie mated Glomerular Filtration Rate (eGFR) is calculated using the 2020 CKD-EPI creatinine equation. This equation utilizes serum creatinine, sex, and age as parameters. The creatinine assay has traceable calibration to isotope dilution-mass spectrometry. Refer to KDIGO guidelines for clinical interpretation. In patients with unstable renal function, e.g. those with acute kidney injury, the eGFR may not accurately reflect actual GFR. Performed By: #### 2 4323-8 ####[facility] LABCLIA [id number] [place] [address] [place] Glucose [Mass/Vol] 104 mg/dL High 74-99 [facility] Comment on above: Order Comment: Ernie billy Type: BLOOD SPECIMENOrdering Facility: [facility] Address: [address] [place] [address] Result Comment: The [place] [employer] (ADA) provides guidance for cutoff values for fasting glucose and random glucose. The ADA defines fasting as no caloric intake for at least 8 hours. Fasting plasma glucose results between 100 to 125 mg/dL indicate increased risk for diabetes (prediabetes).Fasting plasma glucose results greater than or equal to 126 mg/dL meet the criteria for diagnosis of diabetes. In the absence of unequivocal hyperglycemia, results should be confirmed by repeat testing. In a patient with classic symptoms of hyperglycemia or hyperglycemic crisis, random plasma glucose results greater than or equal to 200 mg/dL meet the criteria for diagnosis of diabetes.Reference: Standards of Medical Care in Diabetes 2016, [place] [employer]. Diabetes Care. 2016.39(Suppl 1). Performed By: #### 2 4323-8 ####[facility] LABIA [id number] [place] [address] [place] Protein [Mass/Vol] 5.9 g/dL Low 6.3-8.0 [facility] Comment on above: Order Comment: Speci men Type: BLOOD SPECIMENOrdering Facility: [facility] Address: [address] [place] [address] Performed By: #### 2 4323-8 ####[facility] LABCLIA [id number] [place] [address] [place] Sodium [Moles/Vol] 139 mmol/L Normal 136-144 [facility] Comment on above: Order Comment: Speci men Type: BLOOD SPECIMENOrdering Facility: [facility] Address: [address] [place] [address] Performed By: #### 2 4323-8 ####[facility] LABIA [id number] [place] [address] [place] Urea nitrogen [Mass/Vol] 43 mg/dL High 7-21 [facility] Comment on above: Order Comment: Speci men Type: BLOOD SPECIMENOrdering Facility: [facility] Address: [address] [place] [address] Performed By: #### 2 4323-8 ####[facility] LABIA [id number] [place] [address] [place] Gas and Carbon monoxide pane l (BldV)on 10-31-2023 Base excess Calc (BldV) [Moles/Vol] 1 mmol/L Normal 0-2 [facility] Comment on above: Order Comment: Speci men Type: VENOUS BLOOD SPECIMENOrdering Facility: [facility] Address: [address] [place] [address] Performed By: #### 2 4344-4 ####[facility] LABIA [id number] [place] [address] [place] Calcium.ionized (Bld) [Mass/Vol] 1.20 mmol/L Normal 1.08-1.30 [facility] Comment on above: Order Comment: Speci men Type: VENOUS BLOOD SPECIMENOrdering Facility: [facility] Address: [address] [place] [address] Performed By: #### 2 4344-4 ####[facility] LABCLIA [id number] [place] [address] [place] Calcium.ionized adjusted to pH 7.4 (BldA) [Moles/Vol] 1.14 mmol/L Normal 1.08-1.30 [facility] Comment on above: Order Comment: Speci men Type: VENOUS BLOOD SPECIMENOrdering Facility: [facility] Address: [address] [place] [address] Performed By: #### 2 4344-4 ####[facility] LABIA [id number] [place] [address] [place] Carboxyhemoglobin (BldV) [Mass fraction] 1.2 % Normal 0.0-2.0 [facility] Comment on above: Order Comment: Speci men Type: VENOUS BLOOD SPECIMENOrdering Facility: [facility] Address: [address] [place] [address] Result Comment: Carb oxyhemoglobin Reference Range for Smokers: 2.0-8.0% Performed By: #### 2 4344-4 ####[facility] LABIA [id number] [place] [address] [place] CO2 (BldV) [Partial pressure] 57 mm[Hg] High 42-55 [facility] Comment on above: Order Comment: Speci men Type: VENOUS BLOOD SPECIMENOrdering Facility: [facility] Address: [address] [place] [address] Performed By: #### 2 4344-4 ####[facility] LABIA [id number] [place] [address] [place] Glucose [Mass/Vol] 91 mg/dL Normal 60-105 [facility] Comment on above: Order Comment: Speci men Type: VENOUS BLOOD SPECIMENOrdering Facility: [facility] Address: [address] [place] [address] Performed By: #### 2 4344-4 ####[facility] LABCLIA [id number] [place] [address] [place] HCO3 (Bld) [Moles/Vol] 28 mmol/L Normal 24-28 [facility] Comment on above: Order Comment: Speci men Type: VENOUS BLOOD SPECIMENOrdering Facility: [facility] Address: [address] [place] [address] Performed By: #### 2 4344-4 ####[facility] LABIA [id number] [place] [address] [place] Hematocrit (Bld) [Volume fraction] 27.2 % Low 36.0-46.0 [facility] Comment on above: Order Comment: Speci men Type: VENOUS BLOOD SPECIMENOrdering Facility: [facility] Address: [address] [place] [address] Performed By: #### 2 4344-4 ####[facility] LABIA [id number] [place] [address] [place] Hemoglobin (Bld) [Mass/Vol] 8.7 g/dL Low 11.5-15.5 [facility] Comment on above: Order Comment: Speci men Type: VENOUS BLOOD SPECIMENOrdering Facility: [facility] Address: [address] [place] [address] Performed By: #### 2 4344-4 ####[facility] LABIA [id number] [place] [address] [place] Methemoglobin (Bld) [Mass fraction] 2.0 % High 0.0-1.5 [facility] Comment on above: Order Comment: Speci men Type: VENOUS BLOOD SPECIMENOrdering Facility: [facility] Address: [address] [place] [address] Performed By: #### 2 4344-4 ####[facility] LABIA [id number] [place] [address] [place] Oxygen (BldV) [Partial pressure] 37 mm[Hg] Normal 35-45 [facility] Comment on above: Order Comment: Speci men Type: VENOUS BLOOD SPECIMENOrdering Facility: [facility] Address: [address] [place] [address] Performed By: #### 2 4344-4 ####[facility] LABCLIA [id number] [place] [address] [place] Oxygen saturation in Venous blood 59 % Low 60-85 [facility] Comment on above: Order Comment: Speci men Type: VENOUS BLOOD SPECIMENOrdering Facility: [facility] Address: [address] [place] [address] Performed By: #### 2 4344-4 ####[facility] LABCLIA [id number] [place] [address] [place] Oxyhemoglobin (BldV) [Mass fraction] 58 % Low 60-85 [facility] Comment on above: Order Comment: Speci men Type: VENOUS BLOOD SPECIMENOrdering Facility: [facility] Address: [address] [place] [address] Performed By: #### 2 4344-4 ####[facility] LABCLIA [id number] [place] [address] [place] pH (BldV) 7.30 [pH] Low 7.32-7.42 [facility] Comment on above: Order Comment: Speci men Type: VENOUS BLOOD SPECIMENOrdering Facility: [facility] Address: [address] [place] [address] Performed By: #### 2 4344-4 ####[facility] LABCLIA [id number] [place] [address] [place] Sodium [Moles/Vol] 140 mmol/L Normal 136-144 [facility] Comment on above: Order Comment: Speci men Type: VENOUS BLOOD SPECIMENOrdering Facility: [facility] Address: [address] [place] [address] Performed By: #### 2 4344-4 ####[facility] LABIA [id number] [place] [address] [place] Base excess Calc (BldV) [Moles/Vol] 0 mmol/L Normal 0-2 [facility] Comment on above: Order Comment: Speci men Type: VENOUS BLOOD SPECIMENOrdering Facility: [facility] Address: [address] [place] [address] Performed By: #### 2 4344-4 ####[facility] LABIA [id number] [place] [address] [place] Calcium.ionized adjusted to pH 7.4 (BldA) [Moles/Vol] 1.12 mmol/L Normal 1.08-1.30 [facility] Comment on above: Order Comment: Speci men Type: VENOUS BLOOD SPECIMENOrdering Facility: [facility] Address: [address] [place] [address] Performed By: #### 2 4344-4 ####[facility] LABIA [id number] [place] [address] [place] Carboxyhemoglobin (BldV) [Mass fraction] 1.4 % Normal 0.0-2.0 [facility] Comment on above: Order Comment: Speci men Type: VENOUS BLOOD SPECIMENOrdering Facility: [facility] Address: [address] [place] [address] Result Comment: Carb oxyhemoglobin Reference Range for Smokers: 2.0-8.0% Performed By: #### 2 4344-4 ####[facility]IA [id number] [place] [address] [place] CO2 (BldV) [Partial pressure] 57 mm[Hg] High 42-55 [facility] Comment on above: Order Comment: Speci men Type: VENOUS BLOOD SPECIMENOrdering Facility: [facility] Address: [address] [place] [address] Performed By: #### 2 4344-4 ####[facility] LABCLIA [id number] [place] [address] [place] Glucose [Mass/Vol] 107 mg/dL High 60-105 [facility] Comment on above: Order Comment: Speci men Type: VENOUS BLOOD SPECIMENOrdering Facility: [facility] Address: [address] [place] [address] Performed By: #### 2 4344-4 ####[facility] LABCLIA [id number] [place] [address] [place] HCO3 (Bld) [Moles/Vol] 27 mmol/L Normal 24-28 [facility] Comment on above: Order Comment: Speci men Type: VENOUS BLOOD SPECIMENOrdering Facility: [facility] Address: [address] [place] [address] Performed By: #### 2 4344-4 ####[facility]CLIA [id number] [place] [address] [place] Hematocrit (Bld) [Volume fraction] 27.1 % Low 36.0-46.0 [facility] Comment on above: Order Comment: Speci men Type: VENOUS BLOOD SPECIMENOrdering Facility: [facility] Address: [address] [place] [address] Performed By: #### 2 4344-4 ####[facility]CLIA [id number] [place] [address] [place] Hemoglobin (Bld) [Mass/Vol] 8.7 g/dL Low 11.5-15.5 [facility] Comment on above: Order Comment: Speci men Type: VENOUS BLOOD SPECIMENOrdering Facility: [facility] Address: [address] [place] [address] Performed By: #### 2 4344-4 ####[facility]CLIA [id number] [place] [address] [place] Methemoglobin (Bld) [Mass fraction] 0.8 % Normal 0.0-1.5 [facility] Comment on above: Order Comment: Speci men Type: VENOUS BLOOD SPECIMENOrdering Facility: [facility] Address: [address] [place] [id number] Performed By: #### 2 4344-4 ####[facility]CLIA [id number] [address] [address] [place] Oxygen (BldV) [Partial pressure] 40 mm[Hg] Normal 35-45 [facility] Comment on above: Order Comment: Speci men Type: VENOUS BLOOD SPECIMENOrdering Facility: [facility] Address: [address] [place], [place] [address] Performed By: #### 2 4344-4 ####[facility]CLIA [id number] [address] [address] [place] Oxygen saturation in Venous blood 63 % Normal 60-85 [facility] Comment on above: Order Comment: Speci men Type: VENOUS BLOOD SPECIMENOrdering Facility: [facility] Address: [address] [place], [place] [address] Performed By: #### 2 4344-4 ####[facility] LABCLIA [id number] [place] [address] [place] Oxyhemoglobin (BldV) [Mass fraction] 62 % Normal 60-85 [facility] [facility] Comment on above: Order Comment: Speci men Type: VENOUS BLOOD SPECIMENOrdering Facility: [facility] Address: [address] [place] [address] Performed By: #### 2 4344-4 ####[facility] LABCLIA [id number] [address] [address] [place] pH (BldV) 7.30 [pH] Low 7.32-7.42 [facility] Comment on above: Order Comment: Speci men Type: VENOUS BLOOD SPECIMENOrdering Facility: [facility] Address: [address] [place] [address] Performed By: #### 2 4344-4 ####[facility] LABCLIA [id number] [place] [address] [place] Sodium [Moles/Vol] 137 mmol/L Normal 136-144 [facility] Comment on above: Order Comment: Speci men Type: VENOUS BLOOD SPECIMENOrdering Facility: [facility] Address: [address] [place] [address] Performed By: #### 2 4344-4 ####[facility] LABCLIA [id number] [place] [address] [place] THERAPY NTon 10-31-2023 THERAPY NT Normal [facility] THERAPY NT Normal [facility] XR CHEST 1V FRONTALon 2023 XR CHEST 1V FRONTAL Normal [facility] ARTERIAL BLOOD GASESon 10-29 Base deficit (BldA) [Moles/Vol] -1 mmol/L Normal -2-0 [facility] Comment on above: Order Comment: Speci men Type: ARTERIAL BLOOD SPECIMENOrdering Facility: [facility] Address: [address] [place] [address] Performed By: #### A LLBG ####[facility] LABIA [id number] [place] [address] [place] Body temperature 98.6 [degF] Normal [facility] Comment on above: Order Comment: Speci men Type: ARTERIAL BLOOD SPECIMENOrdering Facility: [facility] Address: [address] [place] [address] Performed By: #### A LLBG ####[facility] LABCLIA [id number] [place] [address] [place] Calcium.ionized (Bld) [Mass/Vol] 1.19 mmol/L Normal 1.08-1.30 [facility] Comment on above: Order Comment: Speci men Type: ARTERIAL BLOOD SPECIMENOrdering Facility: [facility] Address: [address] [place] [address] Performed By: #### A LLBG ####[facility] LABCLIA [id number] [place] [address] [place] Calcium.ionized adjusted to pH 7.4 (BldA) [Moles/Vol] 1.17 mmol/L Normal 1.08-1.30 [facility] Comment on above: Order Comment: Speci men Type: ARTERIAL BLOOD SPECIMENOrdering Facility: [facility] Address: [address] [place] [address] Performed By: #### A LLBG ####[facility] LABIA [id number] [place] [address] [place] Carboxyhemoglobin (BldA) [Mass fraction] 1.6 % Normal 0.0-2.0 [facility] Comment on above: Order Comment: Speci men Type: ARTERIAL BLOOD SPECIMENOrdering Facility: [facility] Address: [address] [place] [address] Result Comment: Carb oxyhemoglobin Reference Range for Smokers: 2.0-8.0% Performed By: #### A LLBG ####[facility] [id number] [place] [address] [place] CO2 (Bld) [Partial pressure] 44 mm Hg Normal 36-46 [facility] Comment on above: Order Comment: Speci men Type: ARTERIAL BLOOD SPECIMENOrdering Facility: [facility] Address: [address] [place] [address] Performed By: #### A LLBG ####[facility] LABIA [id number] [place] [address] [place] Glucose [Mass/Vol] 77 mg/dL Normal 60-105 [facility] Comment on above: Order Comment: Speci men Type: ARTERIAL BLOOD SPECIMENOrdering Facility: [facility] Address: [address] [place] [address] Performed By: #### A LLBG ####[facility] LABBRIGHT[facility] [id number] [id number] [address] [place] HCO3 (Bld) [Moles/Vol] 24 mmol/L Normal 22-26 [facility] Comment on above: Order Comment: Speci men Type: ARTERIAL BLOOD SPECIMENOrdering Facility: [facility] Address: [address] [place] [address] Performed By: #### A LLBG ####[facility] LABCLIA [id number] [place] [address] [place] Hematocrit (Bld) [Volume fraction] 27.0 % Low 36.0-46.0 [facility] Comment on above: Order Comment: Speci men Type: ARTERIAL BLOOD SPECIMENOrdering Facility: [facility] Address: [address] [place] [address] Performed By: #### A LLBG ####[facility] LABIA [id number] [place] [address] [place] Hemoglobin (Bld) [Mass/Vol] 8.7 g/dL Low 11.5-15.5 [facility] Comment on above: Order Comment: Speci men Type: ARTERIAL BLOOD SPECIMENOrdering Facility: [facility] Address: [address] [place] [address] Performed By: #### A LLBG ####[facility] LABIA [id number] [place] [address] [place] Lactate [Moles/Vol] 0.7 mmol/L Normal 0.5-2.2 [facility] Comment on above: Order Comment: Speci men Type: ARTERIAL BLOOD SPECIMENOrdering Facility: [facility] Address: [address] [place] [address] Performed By: #### A LLBG ####[facility] LABCLIA [id number] [place] [address] [place] Methemoglobin (Bld) [Mass fraction] 0.8 % Normal 0.0-1.5 [facility] Comment on above: Order Comment: Speci men Type: ARTERIAL BLOOD SPECIMENOrdering Facility: [facility] Address: [address] [place] [address] Performed By: #### A LLBG ####[facility] LABIA [id number] [place] [address] [place] O2 THERAPY Hi-Flow Nasal Cannula-Heated Normal [facility] Comment on above: Order Comment: Speci men Type: ARTERIAL BLOOD SPECIMENOrdering Facility: [facility] Address: [address] [place] [address] Performed By: #### A LLBG ####[facility] LABIA [id number] [place] [address] [place] Oxygen (Bld) [Partial pressure] 173 mm Hg High 85-95 [facility] Comment on above: Order Comment: Speci men Type: ARTERIAL BLOOD SPECIMENOrdering Facility: [facility] Address: [address] [place] [address] Performed By: #### A LLBG ####[facility] LABIA [id number] [place] [address] [place] Oxyhemoglobin (BldA) [Mass fraction] 97 % Normal 95-98 [facility] Comment on above: Order Comment: Speci men Type: ARTERIAL BLOOD SPECIMENOrdering Facility: [facility] Address: [address] [place] [address] Performed By: #### A LLBG ####[facility] LABIA [id number] [place] [address] [place] pH (Bld) 7.36 [pH] Normal 7.35-7.45 [facility] Comment on above: Order Comment: Speci men Type: ARTERIAL BLOOD SPECIMENOrdering Facility: [facility] Address: [address] [place] [address] Performed By: #### A LLBG ####[facility] LABIA [id number] [place] [address] [place] Potassium [Moles/Vol] 4.1 mmol/L Normal 3.5-5.[address] [facility] Comment on above: Order Comment: Speci men Type: ARTERIAL BLOOD SPECIMENOrdering Facility: [facility] Address: [address] [place] [address] Performed By: #### A LLBG ####[facility] LABCLIA [id number] [place] [address] [place] Sodium [Moles/Vol] 138 mmol/L Normal 136-144 [facility] Comment on above: Order Comment: Speci men Type: ARTERIAL BLOOD SPECIMENOrdering Facility: [facility] Address: [address] [place] [address] Performed By: #### A LLBG ####[facility] LABCLIA [id number] [place] [address] [place] Base excess Calc (Bld) [Moles/Vol] 0 mmol/L Normal 0-2 [facility] Comment on above: Order Comment: Speci men Type: ARTERIAL BLOOD SPECIMENOrdering Facility: [facility] Address: [address] [place] [address] Performed By: #### A LLBG ####[facility] LABCLIA [id number] [place] [address] [place] Body temperature 98.6 [degF] Normal [facility] Comment on above: Order Comment: Speci men Type: ARTERIAL BLOOD SPECIMENOrdering Facility: [facility] Address: [address] [place] [address] Performed By: #### A LLBG ####[facility] LABCLIA [id number] [place] [address] [place] Calcium.ionized (Bld) [Mass/Vol] 1.19 mmol/L Normal 1.08-1.30 [facility] Comment on above: Order Comment: Speci men Type: ARTERIAL BLOOD SPECIMENOrdering Facility: [facility] Address: [address], [place] [address] Performed By: #### A LLBG ####[facility] LABIA [id number] [place] [address] [place] Calcium.ionized adjusted to pH 7.4 (BldA) [Moles/Vol] 1.17 mmol/L Normal 1.08-1.30 [facility] Comment on above: Order Comment: Speci men Type: ARTERIAL BLOOD SPECIMENOrdering Facility: [facility] Address: [address] [place] [address] Performed By: #### A LLBG ####[facility] [id number] [place] [address] [place] Carboxyhemoglobin (BldA) [Mass fraction] 1.5 % Normal 0.0-2.0 [facility] Comment on above: Order Comment: Speci men Type: ARTERIAL BLOOD SPECIMENOrdering Facility: [facility] Address: [address] [place] [address] Result Comment: Carb oxyhemoglobin Reference Range for Smokers: 2.0-8.0% Performed By: #### A LLBG ####[facility] LABIA [id number] [place] [address] [place] CO2 (Bld) [Partial pressure] 43 mm Hg Normal 36-46 [facility] Comment on above: Order Comment: Speci men Type: ARTERIAL BLOOD SPECIMENOrdering Facility: [facility] Address: [address] [place] [address] Performed By: #### A LLBG ####[facility] LABIA [id number] [place] [address] [place] Glucose [Mass/Vol] 69 mg/dL Normal 60-105 [facility] Comment on above: Order Comment: Speci men Type: ARTERIAL BLOOD SPECIMENOrdering Facility: [facility] Address: [address] [place] [address] Performed By: #### A LLBG ####[facility] LABIA [id number] [place] [address] [place] HCO3 (Bld) [Moles/Vol] 25 mmol/L Normal 22-26 [facility] Comment on above: Order Comment: Speci men Type: ARTERIAL BLOOD SPECIMENOrdering Facility: [facility] Address: [address] [place] [address] Performed By: #### A LLBG ####[facility] LABCLIA [id number] [place] [address] [place] Hematocrit (Bld) [Volume fraction] 26.1 % Low 36.0-46.0 [facility] Comment on above: Order Comment: Speci men Type: ARTERIAL BLOOD SPECIMENOrdering Facility: [facility] Address: [address] [place] [address] Performed By: #### A LLBG ####[facility] LABCLIA [id number] [place] [address] [place] Hemoglobin (Bld) [Mass/Vol] 8.4 g/dL Low 11.5-15.5 [facility] Comment on above: Order Comment: Speci men Type: ARTERIAL BLOOD SPECIMENOrdering Facility: [facility] Address: [address] [place] [address] Performed By: #### A LLBG ####[facility] LABIA [id number] [place] [address] [place] Lactate [Moles/Vol] 0.7 mmol/L Normal 0.5-2.2 [facility] Comment on above: Order Comment: Speci men Type: ARTERIAL BLOOD SPECIMENOrdering Facility: [facility] Address: [address] [place] [address] Performed By: #### A LLBG ####[facility] LABCLIA [id number] [place] [address] [place] Methemoglobin (Bld) [Mass fraction] 0.7 % Normal 0.0-1.5 [facility] Comment on above: Order Comment: Speci men Type: ARTERIAL BLOOD SPECIMENOrdering Facility: [facility] Address: [address] [place] [address] Performed By: #### A LLBG ####[facility] LABCLIA [id number] [place] [address] [place] O2 THERAPY Hi-Flow Nasal Cannula-Heated Normal [facility] Comment on above: Order Comment: Speci men Type: ARTERIAL BLOOD SPECIMENOrdering Facility: [facility] Address: [address] [place] [address] Performed By: #### A LLBG ####[facility] LABCLIA [id number] [place] [address] [place] Oxygen (Bld) [Partial pressure] 131 mm Hg High 85-95 [facility] Comment on above: Order Comment: Speci men Type: ARTERIAL BLOOD SPECIMENOrdering Facility: [facility] Address: [address] [place] [address] Performed By: #### A LLBG ####[facility] LABCLIA [id number] [place] [address] [place] Oxyhemoglobin (BldA) [Mass fraction] 97 % Normal 95-98 [facility] Comment on above: Order Comment: Speci men Type: ARTERIAL BLOOD SPECIMENOrdering Facility: [facility] Address: [address] [place] [address] Performed By: #### A LLBG ####[facility] LABCLIA [id number] [place] [id number] [place] pH (Bld) 7.37 [pH] Normal 7.35-7.45 [facility] Comment on above: Order Comment: Speci men Type: ARTERIAL BLOOD SPECIMENOrdering Facility: [facility] Address: [address] [place] [address] Performed By: #### A LLBG ####[facility] LABCLIA [id number] [place] [address] [place] Potassium [Moles/Vol] 3.6 mmol/L Normal 3.5-5.[address] [facility] Comment on above: Order Comment: Speci men Type: ARTERIAL BLOOD SPECIMENOrdering Facility: [facility] Address: [address] [place] [address] Performed By: #### A LLBG ####[facility] LABCLIA [id number] [place] [address] [place] Sodium [Moles/Vol] 139 mmol/L Normal 136-144 [facility] Comment on above: Order Comment: Speci men Type: ARTERIAL BLOOD SPECIMENOrdering Facility: [facility] Address: [address] [place] [address] Performed By: #### A LLBG ####[facility] LABCLIA [id number] [place] [address] [place] Base excess Calc (Bld) [Moles/Vol] 0 mmol/L Normal 0-2 [facility] Comment on above: Order Comment: Speci men Type: ARTERIAL BLOOD SPECIMENOrdering Facility: [facility] Address: [address] [place] [address] Performed By: #### A LLBG ####[facility] LABCLIA [id number] [place] [address] [place] Body temperature 98.6 [degF] Normal [facility] Comment on above: Order Comment: Speci men Type: ARTERIAL BLOOD SPECIMENOrdering Facility: [facility] Address: [address] [place] [address] Performed By: #### A LLBG ####[facility] LABCLIA [id number] [place] [address] [place] Calcium.ionized (Bld) [Mass/Vol] 1.20 mmol/L Normal 1.08-1.30 [facility] Comment on above: Order Comment: Speci men Type: ARTERIAL BLOOD SPECIMENOrdering Facility: [facility] Address: [facility] [place] [address] Performed By: #### A LLBG ####[facility] LABCLIA [id number] [place] [address] [place] Calcium.ionized adjusted to pH 7.4 (BldA) [Moles/Vol] 1.18 mmol/L Normal 1.08-1.30 [facility] Comment on above: Order Comment: Speci men Type: ARTERIAL BLOOD SPECIMENOrdering Facility: [facility] Address: [address] [place] [address] Performed By: #### A LLBG ####[facility] LABIA [id number] [place] [address] [place] Carboxyhemoglobin (BldA) [Mass fraction] 1.8 % Normal 0.0-2.0 [facility] Comment on above: Order Comment: Speci men Type: ARTERIAL BLOOD SPECIMENOrdering Facility: [facility] Address: [address] [place] [address] Result Comment: Carb oxyhemoglobin Reference Range for Smokers: 2.0-8.0% Performed By: #### A LLBG ####[facility] LABIA [id number] [place] [address] [place] CO2 (Bld) [Partial pressure] 45 mm Hg Normal 36-46 [facility] Comment on above: Order Comment: Speci men Type: ARTERIAL BLOOD SPECIMENOrdering Facility: [facility] Address: [address] [place] [address] Performed By: #### A LLBG ####[facility] LABIA [id number] [place] [address] [place] FIO2 40 % Normal [facility] Comment on above: Order Comment: Speci men Type: ARTERIAL BLOOD SPECIMENOrdering Facility: [facility] Address: [address] [place] [address] Performed By: #### A LLBG ####[facility] LABCLIA [id number] [place] [address] [place] Glucose [Mass/Vol] 54 mg/dL Low 60-105 [facility] Comment on above: Order Comment: Speci men Type: ARTERIAL BLOOD SPECIMENOrdering Facility: [facility] Address: [address] [place] [address] Performed By: #### A LLBG ####[facility] LABCLIA [id number] [place] [address] [place] HCO3 (Bld) [Moles/Vol] 25 mmol/L Normal 22-26 [facility] Comment on above: Order Comment: Speci men Type: ARTERIAL BLOOD SPECIMENOrdering Facility: [facility] Address: [address] [place] [address] Performed By: #### A LLBG ####[facility] LABCLIA [id number] [place] [address] [place] Hematocrit (Bld) [Volume fraction] 26.2 % Low 36.0-46.0 [facility] Comment on above: Order Comment: Speci men Type: ARTERIAL BLOOD SPECIMENOrdering Facility: [facility] Address: [address] [place] [address] Performed By: #### A LLBG ####[facility] LABCLIA [id number] [place] [address] [place] Hemoglobin (Bld) [Mass/Vol] 8.4 g/dL Low 11.5-15.5 [facility] Comment on above: Order Comment: Speci men Type: ARTERIAL BLOOD SPECIMENOrdering Facility: [facility] Address: [address] [place] [address] Performed By: #### A LLBG ####[facility] LABCLIA [id number] [place] [address] [place] Lactate [Moles/Vol] 0.8 mmol/L Normal 0.5-2.2 [facility] Comment on above: Order Comment: Speci men Type: ARTERIAL BLOOD SPECIMENOrdering Facility: [facility] Address: [address] [place] [address] Performed By: #### A LLBG ####[facility] LABCLIA [id number] [place] [address] [place] LITERS 60 Liters/min Normal [facility] Comment on above: Order Comment: Speci men Type: ARTERIAL BLOOD SPECIMENOrdering Facility: [facility] Address: [address] [place] [address] Performed By: #### A LLBG ####[facility] LABCLIA [id number] [place] [address] [place] Methemoglobin (Bld) [Mass fraction] 0.7 % Normal 0.0-1.5 [facility] Comment on above: Order Comment: Speci men Type: ARTERIAL BLOOD SPECIMENOrdering Facility: [facility] Address: [address] [place] [address] Performed By: #### A LLBG ####[facility] LABIA [id number] [place] [address] [place] O2 THERAPY Hi-Flow Nasal Cannula-Heated Normal [facility] Comment on above: Order Comment: Speci men Type: ARTERIAL BLOOD SPECIMENOrdering Facility: [facility] Address: [address] [place] [address] Performed By: #### A LLBG ####[facility] LABCLIA [id number] [place] [address] [place] Oxygen (Bld) [Partial pressure] 109 mm Hg High 85-95 [facility] Comment on above: Order Comment: Speci men Type: ARTERIAL BLOOD SPECIMENOrdering Facility: [facility] Address: [address] [place] [address] Performed By: #### A LLBG ####[facility] LABCLIA [id number] [place] [address] [place] Oxyhemoglobin (BldA) [Mass fraction] 96 % Normal 95-98 [facility] Comment on above: Order Comment: Speci men Type: ARTERIAL BLOOD SPECIMENOrdering Facility: [facility] Address: [address] [place] [address] Performed By: #### A LLBG ####[facility] LABCLIA [id number] [place] [address] [place] pH (Bld) 7.37 [pH] Normal 7.35-7.45 [facility] Comment on above: Order Comment: Speci men Type: ARTERIAL BLOOD SPECIMENOrdering Facility: [facility] Address: [address] [place] [address] Performed By: #### A LLBG ####[facility] LABCLIA [id number] [place] [address] [place] PO2 / FIO2 RATIO 273 mmHg Low >[address] [facility] Comment on above: Order Comment: Speci men Type: ARTERIAL BLOOD SPECIMENOrdering Facility: [facility] Address: [address] [place] [address] Performed By: #### A LLBG ####[facility] LABCLIA [id number] [place] [address] [place] Potassium [Moles/Vol] 3.8 mmol/L Normal 3.5-5.[address] [facility] Comment on above: Order Comment: Speci men Type: ARTERIAL BLOOD SPECIMENOrdering Facility: [facility] Address: [address] [place] [address] Performed By: #### A LLBG ####[facility] LABCLIA [id number] [place] [address] [place] Sodium [Moles/Vol] 141 mmol/L Normal 136-144 [facility] Comment on above: Order Comment: Speci men Type: ARTERIAL BLOOD SPECIMENOrdering Facility: [facility] Address: [address] [place] [address] Performed By: #### A LLBG ####[facility] LABCLIA [id number] [place] [address] [place] Base excess Calc (Bld) [Moles/Vol] 1 mmol/L Normal 0-2 [facility] Comment on above: Order Comment: Speci men Type: ARTERIAL BLOOD SPECIMENOrdering Facility: [facility] Address: [address] [place] [address] Performed By: #### A LLBG ####[facility] LABIA [id number] [place] [address] [place] Body temperature 98.6 [degF] Normal [facility] Comment on above: Order Comment: Speci men Type: ARTERIAL BLOOD SPECIMENOrdering Facility: [facility] Address: [address] [place] [address] Performed By: #### A LLBG ####[facility] [id number] [place] [address] [place] Calcium.ionized (Bld) [Mass/Vol] 1.17 mmol/L Normal 1.08-1.30 [facility] Comment on above: Order Comment: Speci men Type: ARTERIAL BLOOD SPECIMENOrdering Facility: [facility] Address: [address] [place] [address] Performed By: #### A LLBG ####[facility] [id number] [place] [address] [place] Calcium.ionized adjusted to pH 7.4 (BldA) [Moles/Vol] 1.15 mmol/L Normal 1.08-1.30 [facility] Comment on above: Order Comment: Speci men Type: ARTERIAL BLOOD SPECIMENOrdering Facility: [facility] Address: [address] [place] [address] Performed By: #### A LLBG ####[facility] LABIA [id number] [place] [address] [place] Carboxyhemoglobin (BldA) [Mass fraction] 1.2 % Normal 0.0-2.0 [facility] Comment on above: Order Comment: Speci men Type: ARTERIAL BLOOD SPECIMENOrdering Facility: [facility] Address: [address] [place] [address] Result Comment: Carb oxyhemoglobin Reference Range for Smokers: 2.0-8.0% Performed By: #### A LLBG ####[facility] LABCLIA [id number] [place] [address] [place] CO2 (Bld) [Partial pressure] 46 mm Hg Normal 36-46 [facility] Comment on above: Order Comment: Speci men Type: ARTERIAL BLOOD SPECIMENOrdering Facility: [facility] Address: [address] [place] [address] Performed By: #### A LLBG ####[facility] LABCLIA [id number] [place] [address] [place] FIO2 40 % Normal [facility] Comment on above: Order Comment: Speci men Type: ARTERIAL BLOOD SPECIMENOrdering Facility: [facility] Address: [address] [place] [address] Performed By: #### A LLBG ####[facility] LABCLIA [id number] [place] [address] [place] Glucose [Mass/Vol] 104 mg/dL Normal 60-105 [facility] Comment on above: Order Comment: Speci men Type: ARTERIAL BLOOD SPECIMENOrdering Facility: [facility] Address: [address] [place] [address] Performed By: #### A LLBG ####[facility] LABCLIA [id number] [place] [address] [place] HCO3 (Bld) [Moles/Vol] 26 mmol/L Normal 22-26 [facility] Comment on above: Order Comment: Speci men Type: ARTERIAL BLOOD SPECIMENOrdering Facility: [facility] Address: [address] [place] [address] Performed By: #### A LLBG ####[facility] LABCLIA [id number] [place] [address] [place] Hematocrit (Bld) [Volume fraction] 27.1 % Low 36.0-46.0 [facility] Comment on above: Order Comment: Speci men Type: ARTERIAL BLOOD SPECIMENOrdering Facility: [facility] Address: [address] [place] [address] Performed By: #### A LLBG ####[facility] LABCLIA [id number] [place] [address] [place] Hemoglobin (Bld) [Mass/Vol] 8.7 g/dL Low 11.5-15.5 [facility] Comment on above: Order Comment: Speci men Type: ARTERIAL BLOOD SPECIMENOrdering Facility: [facility] Address: [address] [place] [address] Performed By: #### A LLBG ####[facility] LABIA [id number] [place] [address] [place] Lactate [Moles/Vol] 1.0 mmol/L Normal 0.5-2.2 [facility] Comment on above: Order Comment: Speci men Type: ARTERIAL BLOOD SPECIMENOrdering Facility: [facility] Address: [address] [place] [address] Performed By: #### A LLBG ####[facility] LABIA [id number] [place] [address] [place] LITERS 60 Liters/min Normal [facility] Comment on above: Order Comment: Speci men Type: ARTERIAL BLOOD SPECIMENOrdering Facility: [facility] Address: [address] [place] [address] Performed By: #### A LLBG ####[facility] LABCLIA [id number] [place] [address] [place] Methemoglobin (Bld) [Mass fraction] 1.4 % Normal 0.0-1.5 [facility] Comment on above: Order Comment: Speci men Type: ARTERIAL BLOOD SPECIMENOrdering Facility: [facility] Address: [address] [place] [address] Performed By: #### A LLBG ####[facility] LABCLIA [id number] [place] [address] [place] O2 THERAPY Hi-Flow Nasal Cannula-Heated Normal [facility] Comment on above: Order Comment: Speci men Type: ARTERIAL BLOOD SPECIMENOrdering Facility: [facility] Address: [address] [place] [address] Performed By: #### A LLBG ####[facility] LABCLIA [id number] [place] [address] [place] Oxygen (Bld) [Partial pressure] 123 mm Hg High 85-95 [facility] Comment on above: Order Comment: Speci men Type: ARTERIAL BLOOD SPECIMENOrdering Facility: [facility] Address: [address] [place] [address] Performed By: #### A LLBG ####[facility] LABCLIA [id number] [place] [address] [place] Oxyhemoglobin (BldA) [Mass fraction] 96 % Normal 95-98 [facility] Comment on above: Order Comment: Speci men Type: ARTERIAL BLOOD SPECIMENOrdering Facility: [facility] Address: [address] [place] [address] Performed By: #### A LLBG ####[facility] LABCLIA [id number] [place] [id number] [place] pH (Bld) 7.37 [pH] Normal 7.35-7.45 [facility] Comment on above: Order Comment: Speci men Type: ARTERIAL BLOOD SPECIMENOrdering Facility: [facility] Address: [address] [place] [address] Performed By: #### A LLBG ####[facility] LABCLIA [id number] [place] [address] [place] PO2 / FIO2 RATIO 308 mmHg Normal >[address] [facility] [place] [facility] Comment on above: Order Comment: Speci men Type: ARTERIAL BLOOD SPECIMENOrdering Facility: [facility] Address: [address] [place], [place] [address] Performed By: #### A LLBG ####[facility] LABCLIA [id number] [place] [address] [place] Potassium [Moles/Vol] 3.5 mmol/L Normal 3.5-5.[address] [facility] Comment on above: Order Comment: Speci men Type: ARTERIAL BLOOD SPECIMENOrdering Facility: [facility] Address: [address] [place] [address] Performed By: #### A LLBG ####[facility] LABCLIA [id number] [place] [address] [place] Sodium [Moles/Vol] 138 mmol/L Normal 136-144 [facility] Comment on above: Order Comment: Speci men Type: ARTERIAL BLOOD SPECIMENOrdering Facility: [facility] Address: [address] [place], [place] [address] Performed By: #### A LLBG ####[facility] LABCLIA [id number] [place] [address] [place] Base excess Calc (Bld) [Moles/Vol] 0 mmol/L Normal 0-2 [facility] Comment on above: Order Comment: Speci men Type: ARTERIAL BLOOD SPECIMENOrdering Facility: [facility] Address: [address] [place] [address] Performed By: #### A LLBG ####[facility] LABCLIA [id number] [place] [address] [place] Body temperature 98.6 [degF] Normal [facility] Comment on above: Order Comment: Speci men Type: ARTERIAL BLOOD SPECIMENOrdering Facility: [facility] Address: [address] [place] [address] Performed By: #### A LLBG ####[facility] LABIA [id number] [place] [address] [place] Calcium.ionized (Bld) [Mass/Vol] 1.16 mmol/L Normal 1.08-1.30 [facility] Comment on above: Order Comment: Speci men Type: ARTERIAL BLOOD SPECIMENOrdering Facility: [facility] Address: [address] [place] [address] Performed By: #### A LLBG ####[facility] [id number] [place] [address] [place] Calcium.ionized adjusted to pH 7.4 (BldA) [Moles/Vol] 1.16 mmol/L Normal 1.08-1.30 [facility] Comment on above: Order Comment: Speci men Type: ARTERIAL BLOOD SPECIMENOrdering Facility: [facility] Address: [address] [place] [address] Performed By: #### A LLBG ####[facility] [id number] [place] [address] [place] Carboxyhemoglobin (BldA) [Mass fraction] 0.9 % Normal 0.0-2.0 [facility] Comment on above: Order Comment: Speci men Type: ARTERIAL BLOOD SPECIMENOrdering Facility: [facility] Address: [address] [place] [address] Result Comment: Carb oxyhemoglobin Reference Range for Smokers: 2.0-8.0% Performed By: #### A LLBG ####[facility] [id number] [place] [address] [place] CO2 (Bld) [Partial pressure] 42 mm Hg Normal 36-46 [facility] Comment on above: Order Comment: Speci men Type: ARTERIAL BLOOD SPECIMENOrdering Facility: [facility] Address: [address] [place] [address] Performed By: #### A LLBG ####[facility] LABCLIA [id number] [place] [address] [place] FIO2 48 % Normal [facility] Comment on above: Order Comment: Speci men Type: ARTERIAL BLOOD SPECIMENOrdering Facility: [facility] Address: [address] [place] [address] Performed By: #### A LLBG ####[facility] LABCLIA [id number] [place] [address] [place] Glucose [Mass/Vol] 134 mg/dL High 60-105 [facility] Comment on above: Order Comment: Speci men Type: ARTERIAL BLOOD SPECIMENOrdering Facility: [facility] Address: [address] [place] [address] Performed By: #### A LLBG ####[facility] LABCLIA [id number] [place] [address] [place] HCO3 (Bld) [Moles/Vol] 25 mmol/L Normal 22-26 [facility] Comment on above: Order Comment: Speci men Type: ARTERIAL BLOOD SPECIMENOrdering Facility: [facility] Address: [address] [place] [address] Performed By: #### A LLBG ####[facility] LABCLIA [id number] [place] [address] [place] Hematocrit (Bld) [Volume fraction] 27.7 % Low 36.0-46.0 [facility] Comment on above: Order Comment: Speci men Type: ARTERIAL BLOOD SPECIMENOrdering Facility: [facility] Address: [address] [place], [place] [address] Performed By: #### A LLBG ####[facility] LABCLIA [id number] [place] [address] [place] Hemoglobin (Bld) [Mass/Vol] 8.9 g/dL Low 11.5-15.5 [facility] Comment on above: Order Comment: Speci men Type: ARTERIAL BLOOD SPECIMENOrdering Facility: [facility] Address: [address] [place] [address] Performed By: #### A LLBG ####[facility] LABCLIA [id number] [place] [address] [place] Lactate [Moles/Vol] 1.1 mmol/L Normal 0.5-2.2 [facility] Comment on above: Order Comment: Speci men Type: ARTERIAL BLOOD SPECIMENOrdering Facility: [facility] Address: [address] [place] [address] Performed By: #### A LLBG ####[facility] LABCLIA [id number] [place] [address] [place] LITERS 60 Liters/min Normal [facility] Comment on above: Order Comment: Speci men Type: ARTERIAL BLOOD SPECIMENOrdering Facility: [facility] Address: [address] [place] [address] Performed By: #### A LLBG ####[facility] LABCLIA [id number] [place] [address] [place] Methemoglobin (Bld) [Mass fraction] 1.1 % Normal 0.0-1.5 [facility] Comment on above: Order Comment: Speci men Type: ARTERIAL BLOOD SPECIMENOrdering Facility: [facility] Address: [address] [place] [address] Performed By: #### A LLBG ####[facility] LABCLIA [id number] [place] [address] [place] O2 THERAPY Hi-Flow Nasal Cannula-Heated Normal [facility] Comment on above: Order Comment: Speci men Type: ARTERIAL BLOOD SPECIMENOrdering Facility: [facility] Address: [address] [place] [address] Performed By: #### A LLBG ####[facility] LABCLIA [id number] [id number] [address] [place] Oxygen (Bld) [Partial pressure] 168 mm Hg High 85-95 [facility] Comment on above: Order Comment: Speci men Type: ARTERIAL BLOOD SPECIMENOrdering Facility: [facility] Address: [address] [place] [address] Performed By: #### A LLBG ####[facility] LABCLIA [id number] [place] [address] [place] Oxyhemoglobin (BldA) [Mass fraction] 97 % Normal 95-98 [facility] Comment on above: Order Comment: Speci men Type: ARTERIAL BLOOD SPECIMENOrdering Facility: [facility] Address: [address] [place] [address] Performed By: #### A LLBG ####[facility] LABCLIA [id number] [place] [address] [place] pH (Bld) 7.39 [pH] Normal 7.35-7.45 [facility] Comment on above: Order Comment: Speci men Type: ARTERIAL BLOOD SPECIMENOrdering Facility: [facility] Address: [address] [place] [address] Performed By: #### A LLBG ####[facility] LABCLIA [id number] [place] [address] [place] PO2 / FIO2 RATIO 350 mmHg Normal >[address] [facility] [place] [facility] Comment on above: Order Comment: Speci men Type: ARTERIAL BLOOD SPECIMENOrdering Facility: [facility] Address: [address] [place] [address] Performed By: #### A LLBG ####[facility] LABCLIA [id number] [place] [address] [place] Potassium [Moles/Vol] 3.4 mmol/L Low 3.5-5.[address] [facility] Comment on above: Order Comment: Speci men Type: ARTERIAL BLOOD SPECIMENOrdering Facility: [facility] Address: [address] [place] [address] Performed By: #### A LLBG ####[facility] LABCLIA [id number] [place] [address] [place] Sodium [Moles/Vol] 139 mmol/L Normal 136-144 [facility] Comment on above: Order Comment: Speci men Type: ARTERIAL BLOOD SPECIMENOrdering Facility: [facility] Address: [address] [place] [address] Performed By: #### A LLBG ####[facility] LABCLIA [id number] [place] [address] [place] Carboxyhemoglobin (BldA) [Mass fraction] 1.1 % Normal 0.0-2.0 [facility] Comment on above: Order Comment: Speci men Type: ARTERIAL BLOOD SPECIMENOrdering Facility: [facility] Address: [address] [place] [address] Result Comment: Carb oxyhemoglobin Reference Range for Smokers: 2.0-8.0% Performed By: #### A LLBG ####[facility] LABIA [id number] [place] [address] [place] CO2 (Bld) [Partial pressure] 41 mm Hg Normal 36-46 [facility] Comment on above: Order Comment: Speci men Type: ARTERIAL BLOOD SPECIMENOrdering Facility: [facility] Address: [address] [place] [address] Performed By: #### A LLBG ####[facility] LABCLIA [id number] [place] [address] [place] Hematocrit (Bld) [Volume fraction] 28.3 % Low 36.0-46.0 [facility] Comment on above: Order Comment: Speci men Type: ARTERIAL BLOOD SPECIMENOrdering Facility: [facility] Address: [address] [place] [address] Performed By: #### A LLBG ####[facility] LABIA [id number] [place] [address] [place] Hemoglobin (Bld) [Mass/Vol] 9.1 g/dL Low 11.5-15.5 [facility] Comment on above: Order Comment: Speci men Type: ARTERIAL BLOOD SPECIMENOrdering Facility: [facility] Address: [address] [place] [address] Performed By: #### A LLBG ####[facility] LABCLIA [id number] [place] [address] [place] Lactate [Moles/Vol] 1.3 mmol/L Normal 0.5-2.2 [facility] Comment on above: Order Comment: Speci men Type: ARTERIAL BLOOD SPECIMENOrdering Facility: [facility] Address: [address] [place] [address] Performed By: #### A LLBG ####[facility] LABCLIA [id number] [place] [address] [place] Methemoglobin (Bld) [Mass fraction] 0.9 % Normal 0.0-1.5 [facility] Comment on above: Order Comment: Speci men Type: ARTERIAL BLOOD SPECIMENOrdering Facility: [facility] Address: [address] [place] [address] Performed By: #### A LLBG ####[facility] LABCLIA [id number] [place] [address] [place] pH (Bld) 7.40 [pH] Normal 7.35-7.45 [facility] Comment on above: Order Comment: Speci men Type: ARTERIAL BLOOD SPECIMENOrdering Facility: [facility] Address: [address] [place] [address] Performed By: #### A LLBG ####[facility] LABCLIA [id number] [place] [address] [place] PO2 / FIO2 RATIO 227 mmHg Low >[address] [facility] [place] [facility] Comment on above: Order Comment: Speci men Type: ARTERIAL BLOOD SPECIMENOrdering Facility: [facility] Address: [address] [place] [address] Performed By: #### A LLBG ####[facility] [id number] [place] [address] [place] Base deficit (BldA) [Moles/Vol] -1 mmol/L Normal -2-0 [facility] Comment on above: Order Comment: Speci men Type: ARTERIAL BLOOD SPECIMENOrdering Facility: [facility] Address: [address] [place] [address] Performed By: #### A LLBG ####[facility] [id number] [place] [address] [place] Calcium.ionized (Bld) [Mass/Vol] 1.16 mmol/L Normal 1.08-1.30 [facility] Comment on above: Order Comment: Speci men Type: ARTERIAL BLOOD SPECIMENOrdering Facility: [facility] Address: [address] [place] [address] Performed By: #### A LLBG ####[facility] [id number] [place] [address] [place] Calcium.ionized adjusted to pH 7.4 (BldA) [Moles/Vol] 1.17 mmol/L Normal 1.08-1.30 [facility] Comment on above: Order Comment: Speci men Type: ARTERIAL BLOOD SPECIMENOrdering Facility: [facility] Address: [address] [place] [address] Performed By: #### A LLBG ####[facility] [id number] [place] [address] [place] Carboxyhemoglobin (BldA) [Mass fraction] 1.8 % Normal 0.0-2.0 [facility] Comment on above: Order Comment: Speci men Type: ARTERIAL BLOOD SPECIMENOrdering Facility: [facility] Address: [address] [place] [address] Result Comment: Carb oxyhemoglobin Reference Range for Smokers: 2.0-8.0% Performed By: #### A LLBG ####[facility] LABCLIA [id number] [place] [address] [place] CO2 (Bld) [Partial pressure] 37 mm Hg Normal 36-46 [facility] Comment on above: Order Comment: Speci men Type: ARTERIAL BLOOD SPECIMENOrdering Facility: [facility] Address: [address] [place] [address] Performed By: #### A LLBG ####[facility] LABCLIA [id number] [place] [address] [place] CO2 adjusted to patient's actual temperature (Bld) [Partial pressure] 38 mmHg Normal 36-46 [facility] Comment on above: Order Comment: Speci men Type: ARTERIAL BLOOD SPECIMENOrdering Facility: [facility] Address: [address] [place] [address] Performed By: #### A LLBG ####[facility] LABCLIA [id number] [place] [address] [place] Glucose [Mass/Vol] 185 mg/dL High 60-105 [facility] Comment on above: Order Comment: Speci men Type: ARTERIAL BLOOD SPECIMENOrdering Facility: [facility] Address: [address] [place] [address] Performed By: #### A LLBG ####[facility] LABCLIA [id number] [place] [address] [place] HCO3 (Bld) [Moles/Vol] 23 mmol/L Normal 22-26 [facility] Comment on above: Order Comment: Speci men Type: ARTERIAL BLOOD SPECIMENOrdering Facility: [facility] Address: [address] [place] [address] Performed By: #### A LLBG ####[facility] LABCLIA [id number] [place] [address] [place] Hematocrit (Bld) [Volume fraction] 30.6 % Low 36.0-46.0 [facility] Comment on above: Order Comment: Speci men Type: ARTERIAL BLOOD SPECIMENOrdering Facility: [facility] Address: [address] [place] [address] Performed By: #### A LLBG ####[facility] LABIA [id number] [place] [address] [place] Hemoglobin (Bld) [Mass/Vol] 9.9 g/dL Low 11.5-15.5 [facility] Comment on above: Order Comment: Speci men Type: ARTERIAL BLOOD SPECIMENOrdering Facility: [facility] Address: [address] [place] [address] Performed By: #### A LLBG ####[facility] [id number] [place] [address] [place] Lactate [Moles/Vol] 1.2 mmol/L Normal 0.5-2.2 [facility] Comment on above: Order Comment: Speci men Type: ARTERIAL BLOOD SPECIMENOrdering Facility: [facility] Address: [address] [place] [address] Performed By: #### A LLBG ####[facility] LABIA [id number] [place] [address] [place] Methemoglobin (Bld) [Mass fraction] 0.6 % Normal 0.0-1.5 [facility] Comment on above: Order Comment: Speci men Type: ARTERIAL BLOOD SPECIMENOrdering Facility: [facility] Address: [address] [place] [address] Performed By: #### A LLBG ####[facility] [id number] [place] [address] [place] Oxygen (Bld) [Partial pressure] 94 mm Hg Normal 85-95 [facility] Comment on above: Order Comment: Speci men Type: ARTERIAL BLOOD SPECIMENOrdering Facility: [facility] Address: [address] [place] [address] Performed By: #### A LLBG ####[facility] LABCLIA [id number] [place] [address] [place] Oxygen adjusted to patient's actual temperature (Bld) [Partial pressure] 96 mmHg High 85-95 [facility] Comment on above: Order Comment: Speci men Type: ARTERIAL BLOOD SPECIMENOrdering Facility: [facility] Address: [address] [place] [address] Performed By: #### A LLBG ####[facility] LABCLIA [id number] [place] [address] [place] Oxyhemoglobin (BldA) [Mass fraction] 96 % Normal 95-98 [facility] Comment on above: Order Comment: Speci men Type: ARTERIAL BLOOD SPECIMENOrdering Facility: [facility] Address: [address] [place] [address] Performed By: #### A LLBG ####[facility] LABCLIA [id number] [place] [address] [place] pH (Bld) 7.41 [pH] Normal 7.35-7.45 [facility] Comment on above: Order Comment: Speci men Type: ARTERIAL BLOOD SPECIMENOrdering Facility: [facility] Address: [address] [place] [address] Performed By: #### A LLBG ####[facility] LABCLIA [id number] [place] [address] [place] pH adjusted to patient's actual temperature (Bld) 7.40 Normal 7.35-7.45 [facility] Comment on above: Order Comment: Speci men Type: ARTERIAL BLOOD SPECIMENOrdering Facility: [facility] Address: [address] [place] [address] Performed By: #### A LLBG ####[facility] LABCLIA [id number] [place] [address] [place] PO2 / FIO2 RATIO 269 mmHg Low >300 [facility] Comment on above: Order Comment: Speci men Type: ARTERIAL BLOOD SPECIMENOrdering Facility: [facility] Address: [address] [place] [address] Performed By: #### A LLBG ####[facility] LABIA [id number] [place] [address] [place] Sodium [Moles/Vol] 138 mmol/L Normal 136-144 [facility] Comment on above: Order Comment: Speci men Type: ARTERIAL BLOOD SPECIMENOrdering Facility: [facility] Address: [address] [place] [address] Performed By: #### A LLBG ####[facility] LABIA [id number] [place] [address] [place] Base deficit (BldA) [Moles/Vol] -1 mmol/L Normal -2-0 [facility] Comment on above: Order Comment: Speci men Type: ARTERIAL BLOOD SPECIMENOrdering Facility: [facility] Address: [address] [place] [address] Performed By: #### A LLBG ####[facility] LABIA [id number] [place] [address] [place] Calcium.ionized (Bld) [Mass/Vol] 1.14 mmol/L Normal 1.08-1.30 [facility] Comment on above: Order Comment: Speci men Type: ARTERIAL BLOOD SPECIMENOrdering Facility: [facility] Address: [address] [place] [address] Performed By: #### A LLBG ####[facility] LABIA [id number] [place] [address] [place] Calcium.ionized adjusted to pH 7.4 (BldA) [Moles/Vol] 1.13 mmol/L Normal 1.08-1.30 [facility] Comment on above: Order Comment: Speci men Type: ARTERIAL BLOOD SPECIMENOrdering Facility: [facility] Address: [address] [place] [address] Performed By: #### A LLBG ####[facility] LABCLIA [id number] [place] [address] [place] Carboxyhemoglobin (BldA) [Mass fraction] 1.9 % Normal 0.0-2.0 [facility] Comment on above: Order Comment: Speci men Type: ARTERIAL BLOOD SPECIMENOrdering Facility: [facility] Address: [address] [place] [address] Result Comment: Carb oxyhemoglobin Reference Range for Smokers: 2.0-8.0% Performed By: #### A LLBG ####[facility] LABCLIA [id number] [place] [address] [place] CO2 (Bld) [Partial pressure] 38 mm Hg Normal 36-46 [facility] Comment on above: Order Comment: Speci men Type: ARTERIAL BLOOD SPECIMENOrdering Facility: [facility] Address: [address] [place] [address] Performed By: #### A LLBG ####[facility] LABCLIA [id number] [place] [address] [place] CO2 adjusted to patient's actual temperature (Bld) [Partial pressure] 39 mmHg Normal 36-46 [facility] Comment on above: Order Comment: Speci men Type: ARTERIAL BLOOD SPECIMENOrdering Facility: [facility] Address: [address] [place] [address] Performed By: #### A LLBG ####[facility] LABCLIA [id number] [place] [address] [place] Glucose [Mass/Vol] 179 mg/dL High 60-105 [facility] Comment on above: Order Comment: Speci men Type: ARTERIAL BLOOD SPECIMENOrdering Facility: [facility] Address: [address] [place] [address] Performed By: #### A LLBG ####[facility] LABCLIA [id number] [place] [address] [place] HCO3 (Bld) [Moles/Vol] 23 mmol/L Normal 22-26 [facility] Comment on above: Order Comment: Speci men Type: ARTERIAL BLOOD SPECIMENOrdering Facility: [facility] Address: [address] [place] [address] Performed By: #### A LLBG ####[facility] LABCLIA [id number] [place] [address] [place] Hematocrit (Bld) [Volume fraction] 26.9 % Low 36.0-46.0 [facility] Comment on above: Order Comment: Speci men Type: ARTERIAL BLOOD SPECIMENOrdering Facility: [facility] Address: [address] [place] [address] Performed By: #### A LLBG ####[facility] LABCLIA [id number] [place] [address] [place] Hemoglobin (Bld) [Mass/Vol] 8.7 g/dL Low 11.5-15.5 [facility] Comment on above: Order Comment: Speci men Type: ARTERIAL BLOOD SPECIMENOrdering Facility: [facility] Address: [address] [place] [address] Performed By: #### A LLBG ####[facility] LABIA [id number] [place] [address] [place] Lactate [Moles/Vol] 1.0 mmol/L Normal 0.5-2.2 [facility] Comment on above: Order Comment: Speci men Type: ARTERIAL BLOOD SPECIMENOrdering Facility: [facility] Address: [address] [place] [address] Performed By: #### A LLBG ####[facility] LABCLIA [id number] [place] [address] [place] Methemoglobin (Bld) [Mass fraction] 0.4 % Normal 0.0-1.5 [facility] Comment on above: Order Comment: Speci men Type: ARTERIAL BLOOD SPECIMENOrdering Facility: [facility] Address: [address] [place] [id number] Performed By: #### A LLBG ####[facility] LABCLIA [id number] [place] [id number] [place] Oxygen (Bld) [Partial pressure] 118 mm Hg High 85-95 [facility] Comment on above: Order Comment: Speci men Type: ARTERIAL BLOOD SPECIMENOrdering Facility: [facility] Address: [address] [place] [address] Performed By: #### A LLBG ####[facility] LABCLIA [id number] [place] [address] [place] Oxygen adjusted to patient's actual temperature (Bld) [Partial pressure] 121 mmHg High 85-95 [facility] Comment on above: Order Comment: Speci men Type: ARTERIAL BLOOD SPECIMENOrdering Facility: [facility] Address: [address] [place] [address] Performed By: #### A LLBG ####[facility] LABCLIA [id number] [place] [address] [place] Oxyhemoglobin (BldA) [Mass fraction] 97 % Normal 95-98 [facility] Comment on above: Order Comment: Speci men Type: ARTERIAL BLOOD SPECIMENOrdering Facility: [facility] Address: [address] [place] [address] Performed By: #### A LLBG ####[facility] LABCLIA [id number] [place] [address] [place] pH (Bld) 7.39 [pH] Normal 7.35-7.45 [facility] Comment on above: Order Comment: Speci men Type: ARTERIAL BLOOD SPECIMENOrdering Facility: [facility] Address: [address] [place], [place] [address] Performed By: #### A LLBG ####[facility] LABCLIA [id number] [place] [address] [place] pH adjusted to patient's actual temperature (Bld) 7.39 Normal 7.35-7.45 [facility] Comment on above: Order Comment: Speci men Type: ARTERIAL BLOOD SPECIMENOrdering Facility: [facility] Address: [address] [place], [place] [address] Performed By: #### A LLBG ####[facility] LABCLIA [id number] [place] [address] [place] PO2 / FIO2 RATIO 337 mmHg Normal >[address] [facility] [place] [facility] Comment on above: Order Comment: Speci men Type: ARTERIAL BLOOD SPECIMENOrdering Facility: [facility] Address: [address] [place] [address] Performed By: #### A LLBG ####[facility] LABCLIA [id number] [place] [address] [place] Potassium [Moles/Vol] 3.5 mmol/L Normal 3.5-5.[address] [facility] Comment on above: Order Comment: Speci men Type: ARTERIAL BLOOD SPECIMENOrdering Facility: [facility] Address: [address] [place] [address] Performed By: #### A LLBG ####[facility] LABCLIA [id number] [place] [address] [place] Sodium [Moles/Vol] 137 mmol/L Normal 136-144 [facility] Comment on above: Order Comment: Speci men Type: ARTERIAL BLOOD SPECIMENOrdering Facility: [facility] Address: [address] [place] [address] Performed By: #### A LLBG ####[facility] LABCLIA [id number] [place] [address] [place] Base deficit (BldA) [Moles/Vol] -2 mmol/L Normal -2-0 [facility] Comment on above: Order Comment: Speci men Type: ARTERIAL BLOOD SPECIMENOrdering Facility: [facility] Address: [address] [place] [address] Performed By: #### A LLBG ####[facility] LABCLIA [id number] [place] [address] [place] Body temperature 99.68 [degF] Normal [facility] Comment on above: Order Comment: Speci men Type: ARTERIAL BLOOD SPECIMENOrdering Facility: [facility] Address: [address] [place] [address] Performed By: #### A LLBG ####[facility] LABCLIA [id number] [address] [place] Order Comment: Speci men Type: VENOUS BLOOD SPECIMENOrdering Facility: [facility] Address: [address] [place] [address] Performed By: #### 2 4344-4 ####[facility] LABCLIA [id number] [place] [address] [place] Calcium.ionized (Bld) [Mass/Vol] 1.18 mmol/L Normal 1.08-1.30 [facility] Comment on above: Order Comment: Speci men Type: ARTERIAL BLOOD SPECIMENOrdering Facility: [facility] Address: [address] [place] [address] Performed By: #### A LLBG ####[facility] LABCLIA [id number] [address] [place] Calcium.ionized adjusted to pH 7.4 (BldA) [Moles/Vol] 1.18 mmol/L Normal 1.08-1.30 [facility] Comment on above: Order Comment: Speci men Type: ARTERIAL BLOOD SPECIMENOrdering Facility: [facility] Address: [address] [place] [address] Performed By: #### A LLBG ####[facility] LABCLIA [id number] [address] [place] Order Comment: Speci men Type: VENOUS BLOOD SPECIMENOrdering Facility: [facility] Address: [address] [place] [id number] Performed By: #### 2 4344-4 ####[facility] LABCLIA [id number] [address] [address] [place] Carboxyhemoglobin (BldA) [Mass fraction] 1.1 % Normal 0.0-2.0 [facility] Comment on above: Order Comment: Speci men Type: ARTERIAL BLOOD SPECIMENOrdering Facility: [facility] Address: [address] [place], [place] [id number] Result Comment: Carb oxyhemoglobin Reference Range for Smokers: 2.0-8.0% Performed By: #### A LLBG ####[facility] LABCLIA [id number] [place] [id number] [place] CO2 (Bld) [Partial pressure] 37 mm Hg Normal 36-46 [facility] Comment on above: Order Comment: Speci men Type: ARTERIAL BLOOD SPECIMENOrdering Facility: [facility] Address: [address] [place], [place] [address] Performed By: #### A LLBG ####[facility] LABCLIA [id number] [place] [address] [place] CO2 adjusted to patient's actual temperature (Bld) [Partial pressure] 38 mmHg Normal 36-46 [facility] Comment on above: Order Comment: Speci men Type: ARTERIAL BLOOD SPECIMENOrdering Facility: [facility] Address: [address] [place], [place] [address] Performed By: #### A LLBG ####[facility] LABCLIA [id number] [place] [id number] [place] FIO2 35 % Normal [facility] Comment on above: Order Comment: Speci men Type: ARTERIAL BLOOD SPECIMENOrdering Facility: [facility] Address: [address] [place] [place] [id number] Performed By: #### A LLBG ####[facility] LABCLIA [id number] [place] [address] [place] Order Comment: Speci men Type: VENOUS BLOOD SPECIMENOrdering Facility: [facility] Address: [address] [place] [address] Performed By: #### 2 4344-4 ####[facility] LABCLIA [id number] [place] [address] [place] Glucose [Mass/Vol] 169 mg/dL High 60-105 [facility] Comment on above: Order Comment: Speci men Type: ARTERIAL BLOOD SPECIMENOrdering Facility: [facility] Address: [address] [place] [address] Performed By: #### A LLBG ####[facility] LABCLIA [id number] [place] [address] [place] HCO3 (Bld) [Moles/Vol] 22 mmol/L Normal 22-26 [facility] Comment on above: Order Comment: Speci men Type: ARTERIAL BLOOD SPECIMENOrdering Facility: [facility] Address: [address] [place] [address] Performed By: #### A LLBG ####[facility] LABCLIA [id number] [place] [address] [place] Hematocrit (Bld) [Volume fraction] 28.2 % Low 36.0-46.0 [facility] Comment on above: Order Comment: Speci men Type: ARTERIAL BLOOD SPECIMENOrdering Facility: [facility] Address: [address] [place] [address] Performed By: #### A LLBG ####[facility] LABCLIA [id number] [place] [address] [place] Hemoglobin (Bld) [Mass/Vol] 9.1 g/dL Low 11.5-15.5 [facility] Comment on above: Order Comment: Speci men Type: ARTERIAL BLOOD SPECIMENOrdering Facility: [facility] Address: [address] [place] [place] [id number] Performed By: #### A LLBG ####[facility] LABCLIA [id number] [place] [address] [place] Lactate [Moles/Vol] 1.1 mmol/L Normal 0.5-2.2 [facility] Comment on above: Order Comment: Speci men Type: ARTERIAL BLOOD SPECIMENOrdering Facility: [facility] Address: [address] [place] [address] Performed By: #### A LLBG ####[facility] LABCLIA [id number] [place] [address] [place] Methemoglobin (Bld) [Mass fraction] 0.9 % Normal 0.0-1.5 [facility] Comment on above: Order Comment: Speci men Type: ARTERIAL BLOOD SPECIMENOrdering Facility: [facility] Address: [address] [place] [address] Performed By: #### A LLBG ####[facility] LABCLIA [id number] [place] [address] [place] O2 THERAPY Positive Normal [facility] Comment on above: Order Comment: Speci men Type: ARTERIAL BLOOD SPECIMENOrdering Facility: [facility] Address: [address] [place], [place] [address] Performed By: #### A LLBG ####[facility] LABCLIA [id number] [place] [address] [place] Order Comment: Speci men Type: VENOUS BLOOD SPECIMENOrdering Facility: [facility] Address: [address] [place], [place] [address] Performed By: #### 2 4344-4 ####[facility] LABCLIA [id number] [place] [id number] [place] Oxygen (Bld) [Partial pressure] 92 mm Hg Normal 85-95 [facility] Comment on above: Order Comment: Speci men Type: ARTERIAL BLOOD SPECIMENOrdering Facility: [facility] Address: [address] [place] [address] Performed By: #### A LLBG ####[facility] LABCLIA [id number] [place] [address] [place] Oxygen adjusted to patient's actual temperature (Bld) [Partial pressure] 95 mmHg Normal 85-95 [facility] Comment on above: Order Comment: Speci men Type: ARTERIAL BLOOD SPECIMENOrdering Facility: [facility] Address: [address] [place] [address] Performed By: #### A LLBG ####[facility] LABCLIA [id number] [place] [address] [place] Oxyhemoglobin (BldA) [Mass fraction] 95 % Normal 95-98 [facility] Comment on above: Order Comment: Speci men Type: ARTERIAL BLOOD SPECIMENOrdering Facility: [facility] Address: [address] [place] [address] Performed By: #### A LLBG ####[facility] LABCLIA [id number] [place] [address] [place] pH (Bld) 7.40 [pH] Normal 7.35-7.45 [facility] Comment on above: Order Comment: Speci men Type: ARTERIAL BLOOD SPECIMENOrdering Facility: [facility] Address: [address] [place] [address] Performed By: #### A LLBG ####[facility] LABCLIA [id number] [place] [address] [place] pH adjusted to patient's actual temperature (Bld) 7.39 Normal 7.35-7.45 [facility] Comment on above: Order Comment: Speci men Type: ARTERIAL BLOOD SPECIMENOrdering Facility: [facility] Address: [address] [place] [address] Performed By: #### A LLBG ####[facility] LABCLIA [id number] [place] [address] [place] PO2 / FIO2 RATIO 263 mmHg Low >[address] [facility] [place] [facility] Comment on above: Order Comment: Speci men Type: ARTERIAL BLOOD SPECIMENOrdering Facility: [facility] Address: [address] [place] [address] Performed By: #### A LLBG ####[facility] LABCLIA [id number] [place] [address] [place] Potassium [Moles/Vol] 4.1 mmol/L Normal 3.5-5.[address] [facility] Comment on above: Order Comment: Speci men Type: ARTERIAL BLOOD SPECIMENOrdering Facility: [facility] Address: [address] [place] [address] Performed By: #### A LLBG ####[facility] LABCLIA [id number] [place] [address] [place] Sodium [Moles/Vol] 138 mmol/L Normal 136-144 [facility] Comment on above: Order Comment: Speci men Type: ARTERIAL BLOOD SPECIMENOrdering Facility: [facility] Address: [address] [place] [address] Performed By: #### A LLBG ####[facility] LABCLIA [id number] [place] [address] [place] Order Comment: Speci men Type: VENOUS BLOOD SPECIMENOrdering Facility: [facility] Address: [address] [place] [address] Performed By: #### 2 4344-4 ####[facility] LABCLIA [id number] [place] [address] [place] CBC panel Auto (Bld)on 10-29 Erythrocyte distribution width (RBC) [Ratio] 14.8 % Normal 11.5-15.0 [facility] Comment on above: Order Comment: Speci men Type: BLOOD SPECIMENOrdering Facility: [facility] Address: [address] [place] [address] Performed By: #### 5 8410-2 ####[facility] LABIA [id number] [place] [address] [place] Hematocrit (Bld) [Volume fraction] 27.6 % Low 36.0-46.0 [facility] Comment on above: Order Comment: Speci men Type: BLOOD SPECIMENOrdering Facility: [facility] Address: [address] [place] [address] Performed By: #### 5 8410-2 ####[facility] LABIA [id number] [place] [address] [place] Hemoglobin (Bld) [Mass/Vol] 8.9 g/dL Low 11.5-15.5 [facility] Comment on above: Order Comment: Speci men Type: BLOOD SPECIMENOrdering Facility: [facility] Address: [address] [place] [address] Performed By: #### 5 8410-2 ####[facility] LABIA [id number] [place] [address] [place] MCH (RBC) [Entitic mass] 31.9 pg Normal 26.0-34.0 [facility] Comment on above: Order Comment: Speci men Type: BLOOD SPECIMENOrdering Facility: [facility] Address: [address] [place] [address] Performed By: #### 5 8410-2 ####[facility] LABIA [id number] [place] [address] [place] MCHC (RBC) [Mass/Vol] 32.2 g/dL Normal 30.5-36.[address] [facility] Comment on above: Order Comment: Speci men Type: BLOOD SPECIMENOrdering Facility: [facility] Address: [address] [place] [address] Performed By: #### 5 8410-2 ####[facility] LABIA [id number] [id number] [address] [place] MCV (RBC) [Entitic vol] 98.9 fL Normal 80.0-100.0 [facility] Comment on above: Order Comment: Speci men Type: BLOOD SPECIMENOrdering Facility: [facility] Address: [address] [place] [address] Performed By: #### 5 8410-2 ####[facility] LABCLIA [id number] [place] [address] [place] Nucleated RBC (Bld) [#/Vol] 10*3/uL Normal <0.01 [facility] Comment on above: Order Comment: Speci men Type: BLOOD SPECIMENOrdering Facility: [facility] Address: [address] [place] [address] Performed By: #### 5 8410-2 ####[facility] LABIA [id number] [place] [address] [place] Platelet mean volume (Bld) [Entitic vol] 9.5 fL Normal 9.0-12.7 [facility] Comment on above: Order Comment: Speci men Type: BLOOD SPECIMENOrdering Facility: [facility] Address: [address] [place] [address] Performed By: #### 5 8410-2 ####[facility] LABIA [id number] [place] [address] [place] Platelets (Bld) [#/Vol] 141 10*3/uL Low 150-400 [facility] Comment on above: Order Comment: Speci men Type: BLOOD SPECIMENOrdering Facility: [facility] Address: [address] [place] [address] Performed By: #### 5 8410-2 ####[facility] LABCLIA [id number] [place] [address] [place] RBC (Bld) [#/Vol] 2.79 10*6/uL Low 3.90-5.20 [facility] Comment on above: Order Comment: Speci men Type: BLOOD SPECIMENOrdering Facility: [facility] Address: [address] [id number] Performed By: #### 5 8410-2 ####[facility] LABCLIA [id number] [address] [address] [place] WBC (Bld) [#/Vol] 9.16 10*3/uL Normal 3.70-11.00 [facility] Comment on above: Order Comment: Speci men Type: BLOOD SPECIMENOrdering Facility: [facility] Address: [address] [place] [address] Performed By: #### 5 8410-2 ####[facility] LABCLIA [id number] [place] [address] [place] Comprehensive metabolic 2000 panelon 10-30-2023 Albumin [Mass/Vol] 3.0 g/dL Low 3.9-4.9 [facility] Comment on above: Order Comment: Speci men Type: BLOOD SPECIMENOrdering Facility: [facility] Address: [address] [place] [address] Performed By: #### 2 4323-8 ####[facility] LABCLIA [id number] [place] [address] [place] ALP [Catalytic activity/Vol] 54 U/L Normal 34-123 [facility] Comment on above: Order Comment: Speci men Type: BLOOD SPECIMENOrdering Facility: [facility] Address: [address] [place] [address] Performed By: #### 2 4323-8 ####[facility] LABCLIA [id number] [place] [id number] [place] ALT [Catalytic activity/Vol] 30 U/L Normal 7-38 [facility] Comment on above: Order Comment: Speci men Type: BLOOD SPECIMENOrdering Facility: [facility] Address: [address] [place] [address] Performed By: #### 2 4323-8 ####[facility] LABCLIA [id number] [place] [id number] [place] Anion gap [Moles/Vol] 15 mmol/L Normal 8-[address] [facility] Comment on above: Order Comment: Speci men Type: BLOOD SPECIMENOrdering Facility: [facility] Address: [address] [place] [address] Performed By: #### 2 4323-8 ####[facility] LABCLIA [id number] [place] [address] [place] AST [Catalytic activity/Vol] 62 U/L High 13-35 [facility] Comment on above: Order Comment: Speci men Type: BLOOD SPECIMENOrdering Facility: [facility] Address: [address] [place] [address] Performed By: #### 2 4323-8 ####[facility] LABCLIA [id number] [place] [address] [place] Bilirubin [Mass/Vol] 0.6 mg/dL Normal 0.2-1.3 [facility] Comment on above: Order Comment: Speci men Type: BLOOD SPECIMENOrdering Facility: [facility] Address: [address] [place] [address] Performed By: #### 2 4323-8 ####[facility] LABCLIA [id number] [place] [address] [place] Calcium [Mass/Vol] 8.9 mg/dL Normal 8.5-10.2 [facility] Comment on above: Order Comment: Speci men Type: BLOOD SPECIMENOrdering Facility: [facility] Address: [address] [place] [address] Performed By: #### 2 4323-8 ####[facility] LABCLIA [id number] [place] [id number] [place] Chloride [Moles/Vol] 104 mmol/L Normal 98-107 [facility] Comment on above: Order Comment: Speci men Type: BLOOD SPECIMENOrdering Facility: [facility] Address: [address] [place] [address] Performed By: #### 2 4323-8 ####[facility] LABCLIA [id number] [place] [address] [place] CO2 [Moles/Vol] 20 mmol/L Low 22-30 [facility] Comment on above: Order Comment: Speci men Type: BLOOD SPECIMENOrdering Facility: [facility] Address: [address] [place] [address] Performed By: #### 2 4323-8 ####[facility] LABIA [id number] [address] [place] Creatinine [Mass/Vol] 1.77 mg/dL High 0.58-0.[address] [facility] Comment on above: Order Comment: Speci men Type: BLOOD SPECIMENOrdering Facility: [facility] Address: [address] [place] [address] Performed By: #### 2 4323-8 ####[facility] LABIA [id number] [address] STATES OF [facility] Creatinine and Glomerular filtration rate.predicted panel (S/P/Bld) 32 mL/min/1.73m??? Low >=60 [facility] Comment on above: Order Comment: Speci men Type: BLOOD SPECIMENOrdering Facility: [facility] Address: [address] [place] [address] Result Comment: Malorie mated Glomerular Filtration Rate (eGFR) is calculated using the 2020 CKD-EPI creatinine equation. This equation utilizes serum creatinine, sex, and age as parameters. The creatinine assay has traceable calibration to isotope dilution-mass spectrometry. Refer to KDIGO guidelines for clinical interpretation. In patients with unstable renal function, e.g. those with acute kidney injury, the eGFR may not accurately reflect actual GFR. Performed By: #### 2 4323-8 ####[facility] LABCLIA [id number] [place] [address] [place] Glucose [Mass/Vol] 151 mg/dL High 74-99 [facility] Comment on above: Order Comment: Speci men Type: BLOOD SPECIMENOrdering Facility: [facility] Address: [address] [place] [address] Result Comment: The [place] [employer] (ADA) provides guidance for cutoff values for fasting glucose and random glucose. The ADA defines fasting as no caloric intake for at least 8 hours. Fasting plasma glucose results between 100 to 125 mg/dL indicate increased risk for diabetes (prediabetes).Fasting plasma glucose results greater than or equal to 126 mg/dL meet the criteria for diagnosis of diabetes. In the absence of unequivocal hyperglycemia, results should be confirmed by repeat testing. In a patient with classic symptoms of hyperglycemia or hyperglycemic crisis, random plasma glucose results greater than or equal to 200 mg/dL meet the criteria for diagnosis of diabetes.Reference: Standards of Medical Care in Diabetes 2016, [place] [employer]. Diabetes Care. 2016.39(Suppl 1). Performed By: #### 2 4323-8 ####[facility] LABCLIA [id number] [place] [address] [place] Potassium [Moles/Vol] 4.1 mmol/L Normal 3.7-5.[address] [facility] Comment on above: Order Comment: Speci men Type: BLOOD SPECIMENOrdering Facility: [facility] Address: [address] [place] [address] Performed By: #### 2 4323-8 ####[facility] LABCLIA [id number] [place] [address] [place] Protein [Mass/Vol] 5.7 g/dL Low 6.3-8.0 [facility] Comment on above: Order Comment: Speci men Type: BLOOD SPECIMENOrdering Facility: [facility] Address: [address] [place] [id number] Performed By: #### 2 4323-8 ####[facility] LABCLIA [id number] [place] [address] [place] Sodium [Moles/Vol] 139 mmol/L Normal 136-144 [facility] Comment on above: Order Comment: Speci men Type: BLOOD SPECIMENOrdering Facility: [facility] Address: [address] [place] [address] Performed By: #### 2 4323-8 ####[facility] LABCLIA [id number] [place] [address] [place] Urea nitrogen [Mass/Vol] 35 mg/dL High 7-21 [facility] Comment on above: Order Comment: Speci men Type: BLOOD SPECIMENOrdering Facility: [facility] Address: [address] [place] [address] Performed By: #### 2 4323-8 ####[facility] LABCLIA [id number] [place] [address] [place] Gas + CO Pnl BldVon 10-30-19 24 Calcium.ionized (Bld) [Mass/Vol] 1.18 mmol/L Normal 1.08-1.30 [facility] Comment on above: Order Comment: Speci men Type: VENOUS BLOOD SPECIMENOrdering Facility: [facility] Address: [address] [place] [address] Performed By: #### 2 4344-4 ####[facility] LABCLIA [id number] [place] [address] [place] Order Comment: Speci men Type: ARTERIAL BLOOD SPECIMENOrdering Facility: [facility] Address: [address] [place] [address] Performed By: #### A LLBG ####[facility] LABCLIA [id number] [place] [address] [place] Body temperature 98.6 [degF] Normal [facility] Comment on above: Order Comment: Speci men Type: VENOUS BLOOD SPECIMENOrdering Facility: [facility] Address: [address] [place] [address] Performed By: #### 2 4344-4 ####[facility] LABCLIA [id number] [address] [address] [place] Order Comment: Speci men Type: ARTERIAL BLOOD SPECIMENOrdering Facility: [facility] Address: [address] [place] [address] Performed By: #### A LLBG ####[facility] LABCLIA [id number] [place] [address] [place] FIO2 48 % Normal [facility] Comment on above: Order Comment: Speci men Type: VENOUS BLOOD SPECIMENOrdering Facility: [facility] Address: [address] [place] [address] Performed By: #### 2 4344-4 ####[facility] LABCLIA [id number] [place] [address] [place] Order Comment: Speci men Type: ARTERIAL BLOOD SPECIMENOrdering Facility: [facility] Address: [address] [place] [address] Performed By: #### A LLBG ####[facility] LABCLIA [id number] [place] [address] [place] Glucose [Mass/Vol] 178 mg/dL High 60-105 [facility] Comment on above: Order Comment: Speci men Type: VENOUS BLOOD SPECIMENOrdering Facility: [facility] Address: [address] [place] [address] Performed By: #### 2 4344-4 ####[facility] LABCLIA [id number] [place] [id number] [place] Order Comment: Speci men Type: ARTERIAL BLOOD SPECIMENOrdering Facility: [facility] Address: [address] [place] [address] Performed By: #### A LLBG ####[facility] LABCLIA [id number] [place] [address] [place] LITERS 60 Liters/min Normal [facility] Comment on above: Order Comment: Speci men Type: VENOUS BLOOD SPECIMENOrdering Facility: [facility] Address: [address] [place] [address] Performed By: #### 2 4344-4 ####[facility] LABCLIA [id number] [place] [address] [place] Order Comment: Speci men Type: ARTERIAL BLOOD SPECIMENOrdering Facility: [facility] Address: [address] [place] [address] Performed By: #### A LLBG ####[facility] LABCLIA [id number] [place] [address] [place] O2 THERAPY Hi-Flow Nasal Cannula-Heated Normal [facility] Comment on above: Order Comment: Speci men Type: VENOUS BLOOD SPECIMENOrdering Facility: [facility] Address: [address] [place] [address] Performed By: #### 2 4344-4 ####[facility] LABCLIA [id number] [place] [address] [place] Order Comment: Speci men Type: ARTERIAL BLOOD SPECIMENOrdering Facility: [facility] Address: [address] [place] [address] Performed By: #### A LLBG ####[facility] LABCLIA [id number] [place] [address] [place] Potassium [Moles/Vol] 3.5 mmol/L Normal 3.5-5.[address] [facility] Comment on above: Order Comment: Speci men Type: VENOUS BLOOD SPECIMENOrdering Facility: [facility] Address: [address] [place] [address] Performed By: #### 2 4344-4 ####[facility] LABCLIA [id number] [place] [address] [place] Order Comment: Speci men Type: ARTERIAL BLOOD SPECIMENOrdering Facility: [facility] Address: [address] [place] [place] [id number] Performed By: #### A LLBG ####[facility] LABCLIA [id number] [place] [address] [place] Body temperature 99.5 [degF] Normal [facility] Comment on above: Order Comment: Speci men Type: VENOUS BLOOD SPECIMENOrdering Facility: [facility] Address: [address] [place] [place] [id number] Performed By: #### 2 4344-4 ####[facility] LABCLIA [id number] [place] [id number] [place] Order Comment: Speci men Type: ARTERIAL BLOOD SPECIMENOrdering Facility: [facility] Address: [address] [place] [address] Performed By: #### A LLBG ####[facility] LABCLIA [id number] [place] [address] [place] FIO2 35 % Normal [facility] Comment on above: Order Comment: Speci men Type: VENOUS BLOOD SPECIMENOrdering Facility: [facility] Address: [address] [place], [place] [address] Performed By: #### 2 4344-4 ####[facility] LABCLIA [id number] [place] [address] [place] Order Comment: Speci men Type: ARTERIAL BLOOD SPECIMENOrdering Facility: [facility] Address: [address] [place] [id number] Performed By: #### A LLBG ####[facility] LABCLIA [id number] [place] [id number] [place] O2 THERAPY Positive Normal [facility] Comment on above: Order Comment: Speci men Type: VENOUS BLOOD SPECIMENOrdering Facility: [facility] Address: [address] [place] [id number] Performed By: #### 2 4344-4 ####[facility] LABCLIA [id number] [place] [id number] [place] Order Comment: Speci men Type: ARTERIAL BLOOD SPECIMENOrdering Facility: [facility] Address: [address] [place] [address] Performed By: #### A LLBG ####[facility] LABCLIA [id number] [place] [address] [place] Potassium [Moles/Vol] 3.5 mmol/L Normal 3.5-5.[address] [facility] Comment on above: Order Comment: Speci men Type: VENOUS BLOOD SPECIMENOrdering Facility: [facility] Address: [address] [place] [address] Performed By: #### 2 4344-4 ####[facility] LABCLIA [id number] [address] [place] Order Comment: Speci men Type: ARTERIAL BLOOD SPECIMENOrdering Facility: [facility] Address: [address] [place] [address] Performed By: #### A LLBG ####[facility] LABCLIA [id number] [place] [address] [place] Body temperature 99.32 [degF] Normal [facility] Comment on above: Order Comment: Speci men Type: VENOUS BLOOD SPECIMENOrdering Facility: [facility] Address: [address] [place] [address] Performed By: #### 2 4344-4 ####[facility] LABCLIA [id number] [place] [address] [place] Order Comment: Speci men Type: ARTERIAL BLOOD SPECIMENOrdering Facility: [facility] Address: [address] [place] [address] Performed By: #### A LLBG ####[facility] LABCLIA [id number] [place] [address] [place] FIO2 35 % Normal [facility] Comment on above: Order Comment: Speci men Type: VENOUS BLOOD SPECIMENOrdering Facility: [facility] Address: [address] [place], [place] [address] Performed By: #### 2 4344-4 ####[facility] LABCLIA [id number] [address] [address] [place] Order Comment: Speci men Type: ARTERIAL BLOOD SPECIMENOrdering Facility: [facility] Address: [address] [place] [address] Performed By: #### A LLBG ####[facility] LABCLIA [id number] [place] [address] [place] O2 THERAPY Positive Normal [facility] Comment on above: Order Comment: Speci men Type: VENOUS BLOOD SPECIMENOrdering Facility: [facility] Address: [address] [place] [address] Performed By: #### 2 4344-4 ####[facility] LABCLIA [id number] [place] [address] [place] Order Comment: Speci men Type: ARTERIAL BLOOD SPECIMENOrdering Facility: [facility] Address: [address] [place] [address] Performed By: #### A LLBG ####[facility] LABCLIA [id number] [place] [address] [place] Gas and Carbon monoxide pane l (BldV)on 10-30-2023 Base excess Calc (BldV) [Moles/Vol] 1 mmol/L Normal 0-2 [facility] Comment on above: Order Comment: Speci men Type: VENOUS BLOOD SPECIMENOrdering Facility: [facility] Address: [address] [place] [address] Performed By: #### 2 4344-4 ####[facility] LABCLIA [id number] [place] [id number] [place] Body temperature 98.6 [degF] Normal [facility] Comment on above: Order Comment: Speci men Type: VENOUS BLOOD SPECIMENOrdering Facility: [facility] Address: [address] [place] [address] Performed By: #### 2 4344-4 ####[facility] LABIA [id number] [place] [address] [place] Calcium.ionized adjusted to pH 7.4 (BldA) [Moles/Vol] 1.14 mmol/L Normal 1.08-1.30 [facility] Comment on above: Order Comment: Speci men Type: VENOUS BLOOD SPECIMENOrdering Facility: [facility] Address: [address] [place] [address] Performed By: #### 2 4344-4 ####[facility] LABIA [id number] [place] [address] [place] Carboxyhemoglobin (BldV) [Mass fraction] 1.3 % Normal 0.0-2.0 [facility] Comment on above: Order Comment: Speci men Type: VENOUS BLOOD SPECIMENOrdering Facility: [facility] Address: [address] [place] [address] Result Comment: Carb oxyhemoglobin Reference Range for Smokers: 2.0-8.0% Performed By: #### 2 4344-4 ####[facility] LABIA [id number] [place] [address] [place] CO2 (BldV) [Partial pressure] 52 mm[Hg] Normal 42-55 [facility] Comment on above: Order Comment: Speci men Type: VENOUS BLOOD SPECIMENOrdering Facility: [facility] Address: [address] [id number] Performed By: #### 2 4344-4 ####[facility] LABCLIA [id number] [place] [address] [place] Glucose [Mass/Vol] 68 mg/dL Normal 60-105 [facility] Comment on above: Order Comment: Speci men Type: VENOUS BLOOD SPECIMENOrdering Facility: [facility] Address: [address] [place] [address] Performed By: #### 2 4344-4 ####[facility] LABCLIA [id number] [place] [address] [place] HCO3 (Bld) [Moles/Vol] 27 mmol/L Normal 24-28 [facility] Comment on above: Order Comment: Speci men Type: VENOUS BLOOD SPECIMENOrdering Facility: [facility] Address: [address] [place] [address] Performed By: #### 2 4344-4 ####[facility] LABCLIA [id number] [place] [address] [place] Hematocrit (Bld) [Volume fraction] 26.2 % Low 36.0-46.0 [facility] Comment on above: Order Comment: Speci men Type: VENOUS BLOOD SPECIMENOrdering Facility: [facility] Address: [address] [place] [address] Performed By: #### 2 4344-4 ####[facility] LABIA [id number] [place] [address] [place] Hemoglobin (Bld) [Mass/Vol] 8.4 g/dL Low 11.5-15.5 [facility] Comment on above: Order Comment: Speci men Type: VENOUS BLOOD SPECIMENOrdering Facility: [facility] Address: [address] [place] [address] Performed By: #### 2 4344-4 ####[facility] LABCLIA [id number] [place] [address] [place] Lactate [Moles/Vol] 0.7 mmol/L Normal 0.5-2.2 [facility] Comment on above: Order Comment: Speci men Type: VENOUS BLOOD SPECIMENOrdering Facility: [facility] Address: [address] [place] [address] Performed By: #### 2 4344-4 ####[facility] LABCLIA [id number] [address] [address] [place] Methemoglobin (Bld) [Mass fraction] 1.0 % Normal 0.0-1.5 [facility] Comment on above: Order Comment: Speci men Type: VENOUS BLOOD SPECIMENOrdering Facility: [facility] Address: [address] [place], [place] [address] Performed By: #### 2 4344-4 ####[facility] LABCLIA [id number] [address] [address] [place] O2 THERAPY Hi-Flow Nasal Cannula-Heated Normal [facility] Comment on above: Order Comment: Speci men Type: VENOUS BLOOD SPECIMENOrdering Facility: [facility] Address: [address] [place] [address] Performed By: #### 2 4344-4 ####[facility] LABCLIA [id number] [place] [address] [place] Oxygen (BldV) [Partial pressure] 37 mm[Hg] Normal 35-45 [facility] Comment on above: Order Comment: Speci men Type: VENOUS BLOOD SPECIMENOrdering Facility: [facility] Address: [address] [place], [place] [address] Performed By: #### 2 4344-4 ####[facility] LABCLIA [id number] [address] [address] [place] Oxygen saturation in Venous blood 62 % Normal 60-85 [facility] Comment on above: Order Comment: Speci men Type: VENOUS BLOOD SPECIMENOrdering Facility: [facility] Address: [address] [place] [address] Performed By: #### 2 4344-4 ####[facility] LABCLIA [id number] [address] [address] [place] Oxyhemoglobin (BldV) [Mass fraction] 60 % Normal 60-85 [facility] Comment on above: Order Comment: Speci men Type: VENOUS BLOOD SPECIMENOrdering Facility: [facility] Address: [address] [place] [address] Performed By: #### 2 4344-4 ####[facility] LABCLIA [id number] [place] [address] [place] pH (BldV) 7.34 [pH] Normal 7.32-7.42 [facility] Comment on above: Order Comment: Speci men Type: VENOUS BLOOD SPECIMENOrdering Facility: [facility] Address: [address] [place] [address] Performed By: #### 2 4344-4 ####[facility] LABIA [id number] [place] [address] [place] Potassium [Moles/Vol] 3.4 mmol/L Low 3.5-5.[address] [facility] Comment on above: Order Comment: Speci men Type: VENOUS BLOOD SPECIMENOrdering Facility: [facility] Address: [address] [place] [address] Performed By: #### 2 4344-4 ####[facility] LABIA [id number] [place] [address] [place] Sodium [Moles/Vol] 139 mmol/L Normal 136-144 [facility] Comment on above: Order Comment: Speci men Type: VENOUS BLOOD SPECIMENOrdering Facility: [facility] Address: [address] [place] [address] Performed By: #### 2 4344-4 ####[facility] LABCLIA [id number] [place] [address] [place] Base excess Calc (BldV) [Moles/Vol] 1 mmol/L Normal 0-2 [facility] Comment on above: Order Comment: Speci men Type: VENOUS BLOOD SPECIMENOrdering Facility: [facility] Address: [address] [place] [address] Performed By: #### 2 4344-4 ####[facility] LABCLIA [id number] [place] [address] [place] Body temperature 98.6 [degF] Normal [facility] Comment on above: Order Comment: Speci men Type: VENOUS BLOOD SPECIMENOrdering Facility: [facility] Address: [address] [place] [address] Performed By: #### 2 4344-4 ####[facility] LABCLIA [id number] [place] [address] [place] Calcium.ionized (Bld) [Mass/Vol] 1.20 mmol/L Normal 1.08-1.30 [facility] Comment on above: Order Comment: Speci men Type: VENOUS BLOOD SPECIMENOrdering Facility: [facility] Address: [address] [place] [address] Performed By: #### 2 4344-4 ####[facility] LABCLIA [id number] [place] [address] [place] Calcium.ionized adjusted to pH 7.4 (BldA) [Moles/Vol] 1.15 mmol/L Normal 1.08-1.30 [facility] Comment on above: Order Comment: Speci men Type: VENOUS BLOOD SPECIMENOrdering Facility: [facility] Address: [address] [place] [address] Performed By: #### 2 4344-4 ####[facility] LABCLIA [id number] [place] [address] [place] Carboxyhemoglobin (BldV) [Mass fraction] 0.9 % Normal 0.0-2.0 [facility] Comment on above: Order Comment: Speci men Type: VENOUS BLOOD SPECIMENOrdering Facility: [facility] Address: [address] [place] [address] Result Comment: Carb oxyhemoglobin Reference Range for Smokers: 2.0-8.0% Performed By: #### 2 4344-4 ####[facility] LABCLIA [id number] [place] [address] [place] CO2 (BldV) [Partial pressure] 53 mm[Hg] Normal 42-55 [facility] Comment on above: Order Comment: Speci men Type: VENOUS BLOOD SPECIMENOrdering Facility: [facility] Address: [address] [place] [address] Performed By: #### 2 4344-4 ####[facility] LABCLIA [id number] [place] [address] [place] FIO2 40 % Normal [facility] Comment on above: Order Comment: Speci men Type: VENOUS BLOOD SPECIMENOrdering Facility: [facility] Address: [address] [place] [address] Performed By: #### 2 4344-4 ####[facility] LABCLIA [id number] [place] [address] [place] Glucose [Mass/Vol] 54 mg/dL Low 60-105 [facility] Comment on above: Order Comment: Speci men Type: VENOUS BLOOD SPECIMENOrdering Facility: [facility] Address: [address] [place] [address] Performed By: #### 2 4344-4 ####[facility] LABCLIA [id number] [place] [address] [place] HCO3 (Bld) [Moles/Vol] 27 mmol/L Normal 24-28 [facility] Comment on above: Order Comment: Speci men Type: VENOUS BLOOD SPECIMENOrdering Facility: [facility] Address: [address] [place] [address] Performed By: #### 2 4344-4 ####[facility] LABCLIA [id number] [place] [address] [place] Hematocrit (Bld) [Volume fraction] 25.5 % Low 36.0-46.0 [facility] Comment on above: Order Comment: Speci men Type: VENOUS BLOOD SPECIMENOrdering Facility: [facility] Address: [address] [place] [address] Performed By: #### 2 4344-4 ####[facility] LABIA [id number] [place] [address] [place] Hemoglobin (Bld) [Mass/Vol] 8.2 g/dL Low 11.5-15.5 [facility] Comment on above: Order Comment: Speci men Type: VENOUS BLOOD SPECIMENOrdering Facility: [facility] Address: [address] [place] [address] Performed By: #### 2 4344-4 ####[facility] LABIA [id number] [place] [address] [place] Lactate [Moles/Vol] 0.7 mmol/L Normal 0.5-2.2 [facility] Comment on above: Order Comment: Speci men Type: VENOUS BLOOD SPECIMENOrdering Facility: [facility] Address: [address] [place] [address] Performed By: #### 2 4344-4 ####[facility] LABIA [id number] [place] [address] [place] LITERS 60 Liters/min Normal [facility] Comment on above: Order Comment: Speci men Type: VENOUS BLOOD SPECIMENOrdering Facility: [facility] Address: [address] [place] [address] Performed By: #### 2 4344-4 ####[facility] LABIA [id number] [place] [address] [place] Methemoglobin (Bld) [Mass fraction] 1.0 % Normal 0.0-1.5 [facility] Comment on above: Order Comment: Speci men Type: VENOUS BLOOD SPECIMENOrdering Facility: [facility] Address: [address] [place] [address] Performed By: #### 2 4344-4 ####[facility] LABIA [id number] [place] [address] [place] O2 THERAPY Hi-Flow Nasal Cannula-Heated Normal [facility] Comment on above: Order Comment: Speci men Type: VENOUS BLOOD SPECIMENOrdering Facility: [facility] Address: [address] [place], [place] [address] Performed By: #### 2 4344-4 ####[facility] LABCLIA [id number] [address] [address] [place] Oxygen (BldV) [Partial pressure] 34 mm[Hg] Low 35-45 [facility] Comment on above: Order Comment: Speci men Type: VENOUS BLOOD SPECIMENOrdering Facility: [facility] Address: [address] [place], [place] [address] Performed By: #### 2 4344-4 ####[facility] LABCLIA [id number] [place] [address] [place] Oxygen saturation in Venous blood 56 % Low 60-85 [facility] Comment on above: Order Comment: Speci men Type: VENOUS BLOOD SPECIMENOrdering Facility: [facility] Address: [address] [place] [address] Performed By: #### 2 4344-4 ####[facility] LABCLIA [id number] [place] [address] [place] Oxyhemoglobin (BldV) [Mass fraction] 55 % Low 60-85 [facility] Comment on above: Order Comment: Speci men Type: VENOUS BLOOD SPECIMENOrdering Facility: [facility] Address: [address] [place], [place] [address] Performed By: #### 2 4344-4 ####[facility] LABCLIA [id number] [address] [address] [place] pH (BldV) 7.32 [pH] Normal 7.32-7.42 [facility] Comment on above: Order Comment: Speci men Type: VENOUS BLOOD SPECIMENOrdering Facility: [facility] Address: [address] [place], [place] [address] Performed By: #### 2 4344-4 ####[facility] LABCLIA [id number] [place] [address] [place] Potassium [Moles/Vol] 3.8 mmol/L Normal 3.5-5.[address] [facility] Comment on above: Order Comment: Speci men Type: VENOUS BLOOD SPECIMENOrdering Facility: [facility] Address: [address] [place] [address] Performed By: #### 2 4344-4 ####[facility] LABCLIA [id number] [place] [address] [place] Sodium [Moles/Vol] 141 mmol/L Normal 136-144 [facility] Comment on above: Order Comment: Speci men Type: VENOUS BLOOD SPECIMENOrdering Facility: [facility] Address: [address] [place] [address] Performed By: #### 2 4344-4 ####[facility] LABCLIA [id number] [place] [address] [place] Base excess Calc (BldV) [Moles/Vol] 1 mmol/L Normal 0-2 [facility] Comment on above: Order Comment: Speci men Type: VENOUS BLOOD SPECIMENOrdering Facility: [facility] Address: [address] [place] [address] Performed By: #### 2 4344-4 ####[facility] LABIA [id number] [place] [address] [place] Body temperature 98.6 [degF] Normal [facility] Comment on above: Order Comment: Speci men Type: VENOUS BLOOD SPECIMENOrdering Facility: [facility] Address: [address] [place] [address] Performed By: #### 2 4344-4 ####[facility] LABCLIA [id number] [place] [address] [place] Calcium.ionized (Bld) [Mass/Vol] 1.19 mmol/L Normal 1.08-1.30 [facility] Comment on above: Order Comment: Speci men Type: VENOUS BLOOD SPECIMENOrdering Facility: [facility] Address: [address] [place] [address] Performed By: #### 2 4344-4 ####[facility] LABIA [id number] [place] [address] [place] Calcium.ionized adjusted to pH 7.4 (BldA) [Moles/Vol] 1.16 mmol/L Normal 1.08-1.30 [facility] Comment on above: Order Comment: Speci men Type: VENOUS BLOOD SPECIMENOrdering Facility: [facility] Address: [address] [place] [address] Performed By: #### 2 4344-4 ####[facility] LABIA [id number] [place] [address] [place] Carboxyhemoglobin (BldV) [Mass fraction] 1.2 % Normal 0.0-2.0 [facility] Comment on above: Order Comment: Speci men Type: VENOUS BLOOD SPECIMENOrdering Facility: [facility] Address: [address] [place] [address] Result Comment: Carb oxyhemoglobin Reference Range for Smokers: 2.0-8.0% Performed By: #### 2 4344-4 ####[facility] LABIA [id number] [place] [address] [place] CO2 (BldV) [Partial pressure] 50 mm[Hg] Normal 42-55 [facility] Comment on above: Order Comment: Speci men Type: VENOUS BLOOD SPECIMENOrdering Facility: [facility] Address: [address] [place] [address] Performed By: #### 2 4344-4 ####[facility] LABIA [id number] [place] [address] [place] FIO2 48 % Normal [facility] Comment on above: Order Comment: Speci men Type: VENOUS BLOOD SPECIMENOrdering Facility: [facility] Address: [address] [place] [address] Performed By: #### 2 4344-4 ####[facility] LABCLIA [id number] [place] [address] [place] Glucose [Mass/Vol] 126 mg/dL High 60-105 [facility] Comment on above: Order Comment: Speci men Type: VENOUS BLOOD SPECIMENOrdering Facility: [facility] Address: [address] [place] [address] Performed By: #### 2 4344-4 ####[facility] LABCLIA [id number] [place] [address] [place] HCO3 (Bld) [Moles/Vol] 27 mmol/L Normal 24-28 [facility] Comment on above: Order Comment: Speci men Type: VENOUS BLOOD SPECIMENOrdering Facility: [facility] Address: [address] [place] [address] Performed By: #### 2 4344-4 ####[facility] LABCLIA [id number] [place] [address] [place] Hematocrit (Bld) [Volume fraction] 27.2 % Low 36.0-46.0 [facility] Comment on above: Order Comment: Speci men Type: VENOUS BLOOD SPECIMENOrdering Facility: [facility] Address: [address] [place], [place] [address] Performed By: #### 2 4344-4 ####[facility] LABCLIA [id number] [place] [address] [place] Hemoglobin (Bld) [Mass/Vol] 8.8 g/dL Low 11.5-15.5 [facility] Comment on above: Order Comment: Speci men Type: VENOUS BLOOD SPECIMENOrdering Facility: [facility] Address: [address] [place] [address] Performed By: #### 2 4344-4 ####[facility] LABCLIA [id number] [place] [address] [place] Lactate [Moles/Vol] 1.0 mmol/L Normal 0.5-2.2 [facility] Comment on above: Order Comment: Speci men Type: VENOUS BLOOD SPECIMENOrdering Facility: [facility] Address: [address] [place] [address] Performed By: #### 2 4344-4 ####[facility] LABCLIA [id number] [place] [address] [place] LITERS 60 Liters/min Normal [facility] Comment on above: Order Comment: Speci men Type: VENOUS BLOOD SPECIMENOrdering Facility: [facility] Address: [address] [place] [address] Performed By: #### 2 4344-4 ####[facility] LABCLIA [id number] [place] [address] [place] Methemoglobin (Bld) [Mass fraction] 1.8 % High 0.0-1.5 [facility] Comment on above: Order Comment: Speci men Type: VENOUS BLOOD SPECIMENOrdering Facility: [facility] Address: [address] [place] [address] Performed By: #### 2 4344-4 ####[facility] LABCLIA [id number] [place] [address] [place] O2 THERAPY Hi-Flow Nasal Cannula-Heated Normal [facility] Comment on above: Order Comment: Speci men Type: VENOUS BLOOD SPECIMENOrdering Facility: [facility] Address: [address] [place] [address] Performed By: #### 2 4344-4 ####[facility] LABCLIA [id number] [place] [address] [place] Oxygen (BldV) [Partial pressure] 36 mm[Hg] Normal 35-45 [facility] Comment on above: Order Comment: Speci men Type: VENOUS BLOOD SPECIMENOrdering Facility: [facility] Address: [address] [place] [address] Performed By: #### 2 4344-4 ####[facility] LABCLIA [id number] [place] [address] [place] Oxygen saturation in Venous blood 57 % Low 60-85 [facility] Comment on above: Order Comment: Speci men Type: VENOUS BLOOD SPECIMENOrdering Facility: [facility] Address: [address] [place] [address] Performed By: #### 2 4344-4 ####[facility] LABCLIA [id number] [place] [address] [place] Oxyhemoglobin (BldV) [Mass fraction] 55 % Low 60-85 [facility] Comment on above: Order Comment: Speci men Type: VENOUS BLOOD SPECIMENOrdering Facility: [facility] Address: [address] [place] [address] Performed By: #### 2 4344-4 ####[facility] LABIA [id number] [place] [address] [place] pH (BldV) 7.34 [pH] Normal 7.32-7.42 [facility] Comment on above: Order Comment: Speci men Type: VENOUS BLOOD SPECIMENOrdering Facility: [facility] Address: [address] [place] [address] Performed By: #### 2 4344-4 ####[facility] LABCLIA [id number] [place] [address] [place] Potassium [Moles/Vol] 3.4 mmol/L Low 3.5-5.[address] [facility] Comment on above: Order Comment: Speci men Type: VENOUS BLOOD SPECIMENOrdering Facility: [facility] Address: [address] [place] [address] Performed By: #### 2 4344-4 ####[facility] LABIA [id number] [place] [address] [place] Sodium [Moles/Vol] 139 mmol/L Normal 136-144 [facility] Comment on above: Order Comment: Speci men Type: VENOUS BLOOD SPECIMENOrdering Facility: [facility] Address: [address] [place] [address] Performed By: #### 2 4344-4 ####[facility] LABIA [id number] [place] [address] [place] Base excess Calc (BldV) [Moles/Vol] 1 mmol/L Normal 0-2 [facility] Comment on above: Order Comment: Speci men Type: VENOUS BLOOD SPECIMENOrdering Facility: [facility] Address: [address] [place] [address] Performed By: #### 2 4344-4 ####[facility] LABIA [id number] [place] [address] [place] Calcium.ionized (Bld) [Mass/Vol] 1.19 mmol/L Normal 1.08-1.30 [facility] Comment on above: Order Comment: Speci men Type: VENOUS BLOOD SPECIMENOrdering Facility: [facility] Address: [address] [place] [address] Performed By: #### 2 4344-4 ####[facility] LABIA [id number] [place] [address] [place] Calcium.ionized adjusted to pH 7.4 (BldA) [Moles/Vol] 1.17 mmol/L Normal 1.08-1.30 [facility] Comment on above: Order Comment: Speci men Type: VENOUS BLOOD SPECIMENOrdering Facility: [facility] Address: [address] [place] [address] Performed By: #### 2 4344-4 ####[facility] LABIA [id number] [place] [address] [place] Carboxyhemoglobin (BldV) [Mass fraction] 1.3 % Normal 0.0-2.0 [facility] Comment on above: Order Comment: Speci men Type: VENOUS BLOOD SPECIMENOrdering Facility: [facility] Address: [address] [place] [address] Result Comment: Carb oxyhemoglobin Reference Range for Smokers: 2.0-8.0% Performed By: #### 2 4344-4 ####[facility] LABCLIA [id number] [place] [address] [place] CO2 (BldV) [Partial pressure] 46 mm[Hg] Normal 42-55 [facility] Comment on above: Order Comment: Speci men Type: VENOUS BLOOD SPECIMENOrdering Facility: [facility] Address: [address] [place] [address] Performed By: #### 2 4344-4 ####[facility] LABIA [id number] [place] [address] [place] HCO3 (Bld) [Moles/Vol] 26 mmol/L Normal 24-28 [facility] Comment on above: Order Comment: Speci men Type: VENOUS BLOOD SPECIMENOrdering Facility: [facility] Address: [address] [place] [address] Performed By: #### 2 4344-4 ####[facility] LABIA [id number] [place] [address] [place] Hematocrit (Bld) [Volume fraction] 27.4 % Low 36.0-46.0 [facility] Comment on above: Order Comment: Speci men Type: VENOUS BLOOD SPECIMENOrdering Facility: [facility] Address: [address] [place] [address] Performed By: #### 2 4344-4 ####[facility] LABIA [id number] [place] [address] [place] Hemoglobin (Bld) [Mass/Vol] 8.8 g/dL Low 11.5-15.5 [facility] Comment on above: Order Comment: Speci men Type: VENOUS BLOOD SPECIMENOrdering Facility: [facility] Address: [address] [place] [address] Performed By: #### 2 4344-4 ####[facility] LABCLIA [id number] [place] [address] [place] Lactate [Moles/Vol] 1.2 mmol/L Normal 0.5-2.2 [facility] Comment on above: Order Comment: Speci men Type: VENOUS BLOOD SPECIMENOrdering Facility: [facility] Address: [address] [place] [address] Performed By: #### 2 4344-4 ####[facility] LABCLIA [id number] [place] [address] [place] Methemoglobin (Bld) [Mass fraction] 0.4 % Normal 0.0-1.5 [facility] Comment on above: Order Comment: Speci men Type: VENOUS BLOOD SPECIMENOrdering Facility: [facility] Address: [address] [place] [address] Performed By: #### 2 4344-4 ####[facility] LABCLIA [id number] [place] [address] [place] Oxygen (BldV) [Partial pressure] 37 mm[Hg] Normal 35-45 [facility] Comment on above: Order Comment: Speci men Type: VENOUS BLOOD SPECIMENOrdering Facility: [facility] Address: [address] [place] [address] Performed By: #### 2 4344-4 ####[facility] LABCLIA [id number] [place] [address] [place] Oxygen saturation in Venous blood 61 % Normal 60-85 [facility] Comment on above: Order Comment: Speci men Type: VENOUS BLOOD SPECIMENOrdering Facility: [facility] Address: [address] [place], [place] [address] Performed By: #### 2 4344-4 ####[facility] LABCLIA [id number] [place] [address] [place] Oxyhemoglobin (BldV) [Mass fraction] 60 % Normal 60-85 [facility] Comment on above: Order Comment: Speci men Type: VENOUS BLOOD SPECIMENOrdering Facility: [facility] Address: [address] [place] [address] Performed By: #### 2 4344-4 ####[facility] LABCLIA [id number] [place] [address] [place] pH (BldV) 7.37 [pH] Normal 7.32-7.42 [facility] Comment on above: Order Comment: Speci men Type: VENOUS BLOOD SPECIMENOrdering Facility: [facility] Address: [address] [place] [address] Performed By: #### 2 4344-4 ####[facility] LABCLIA [id number] [place] [address] [place] Sodium [Moles/Vol] 140 mmol/L Normal 136-144 [facility] Comment on above: Order Comment: Speci men Type: VENOUS BLOOD SPECIMENOrdering Facility: [facility] Address: [address] [place] [address] Performed By: #### 2 4344-4 ####[facility] LABCLIA [id number] [place] [address] [place] Base excess Calc (BldV) [Moles/Vol] 0 mmol/L Normal 0-2 [facility] Comment on above: Order Comment: Speci men Type: VENOUS BLOOD SPECIMENOrdering Facility: [facility] Address: [address] [place] [address] Performed By: #### 2 4344-4 ####[facility] LABCLIA [id number] [place] [address] [place] Calcium.ionized (Bld) [Mass/Vol] 1.19 mmol/L Normal 1.08-1.30 [facility] Comment on above: Order Comment: Speci men Type: VENOUS BLOOD SPECIMENOrdering Facility: [facility] Address: [address] [place] [address] Performed By: #### 2 4344-4 ####[facility] LABCLIA [id number] [place] [address] [place] Calcium.ionized adjusted to pH 7.4 (BldA) [Moles/Vol] 1.18 mmol/L Normal 1.08-1.30 [facility] Comment on above: Order Comment: Speci men Type: VENOUS BLOOD SPECIMENOrdering Facility: [facility] Address: [address] [place] [address] Performed By: #### 2 4344-4 ####[facility] LABIA [id number] [place] [address] [place] Carboxyhemoglobin (BldV) [Mass fraction] 1.1 % Normal 0.0-2.0 [facility] Comment on above: Order Comment: Speci men Type: VENOUS BLOOD SPECIMENOrdering Facility: [facility] Address: [address] [place] [address] Result Comment: Carb oxyhemoglobin Reference Range for Smokers: 2.0-8.0% Performed By: #### 2 4344-4 ####[facility] LABCLIA [id number] [place] [address] [place] CO2 (BldV) [Partial pressure] 43 mm[Hg] Normal 42-55 [facility] Comment on above: Order Comment: Speci men Type: VENOUS BLOOD SPECIMENOrdering Facility: [facility] Address: [address] [place] [address] Performed By: #### 2 4344-4 ####[facility] LABCLIA [id number] [place] [address] [place] CO2 adjusted to patient's actual temperature (BldV) [Partial pressure] 44 mmHg Normal 42-55 [facility] Comment on above: Order Comment: Speci men Type: VENOUS BLOOD SPECIMENOrdering Facility: [facility] Address: [address] [place] [place] [id number] Performed By: #### 2 4344-4 ####[facility] LABCLIA [id number] [place] [address] [place] Glucose [Mass/Vol] 189 mg/dL High 60-105 [facility] Comment on above: Order Comment: Speci men Type: VENOUS BLOOD SPECIMENOrdering Facility: [facility] Address: [address] [place] [address] Performed By: #### 2 4344-4 ####[facility] LABCLIA [id number] [place] [address] [place] HCO3 (Bld) [Moles/Vol] 25 mmol/L Normal 24-28 [facility] Comment on above: Order Comment: Speci men Type: VENOUS BLOOD SPECIMENOrdering Facility: [facility] Address: [address] [place] [address] Performed By: #### 2 4344-4 ####[facility] LABIA [id number] [place] [address] [place] Hematocrit (Bld) [Volume fraction] 31.4 % Low 36.0-46.0 [facility] Comment on above: Order Comment: Speci men Type: VENOUS BLOOD SPECIMENOrdering Facility: [facility] Address: [address] [place], [place] [address] Performed By: #### 2 4344-4 ####[facility] LABCLIA [id number] [place] [address] [place] Hemoglobin (Bld) [Mass/Vol] 10.2 g/dL Low 11.5-15.5 [facility] Comment on above: Order Comment: Speci men Type: VENOUS BLOOD SPECIMENOrdering Facility: [facility] Address: [address] [place] [address] Performed By: #### 2 4344-4 ####[facility] LABCLIA [id number] [place] [address] [place] Lactate [Moles/Vol] 1.1 mmol/L Normal 0.5-2.2 [facility] Comment on above: Order Comment: Speci men Type: VENOUS BLOOD SPECIMENOrdering Facility: [facility] Address: [address] [place] [address] Performed By: #### 2 4344-4 ####[facility] LABCLIA [id number] [place] [address] [place] Methemoglobin (Bld) [Mass fraction] 0.4 % Normal 0.0-1.5 [facility] Comment on above: Order Comment: Speci men Type: VENOUS BLOOD SPECIMENOrdering Facility: [facility] Address: [address] [place] [address] Performed By: #### 2 4344-4 ####[facility] LABCLIA [id number] [place] [address] [place] Oxygen (BldV) [Partial pressure] 36 mm[Hg] Normal 35-45 [facility] Comment on above: Order Comment: Speci men Type: VENOUS BLOOD SPECIMENOrdering Facility: [facility] Address: [address] [place] [address] Performed By: #### 2 4344-4 ####[facility] LABCLIA [id number] [place] [address] [place] Oxygen adjusted to patient's actual temperature (BldV) [Partial pressure] 37 mmHg Normal 35-45 [facility] Comment on above: Order Comment: Speci men Type: VENOUS BLOOD SPECIMENOrdering Facility: [facility] Address: [address] [place] [address] Performed By: #### 2 4344-4 ####[facility] LABCLIA [id number] [place] [address] [place] Oxygen saturation in Venous blood 60 % Normal 60-85 [facility] Comment on above: Order Comment: Speci men Type: VENOUS BLOOD SPECIMENOrdering Facility: [facility] Address: [address] [place] [address] Performed By: #### 2 4344-4 ####[facility] LABCLIA [id number] [place] [address] [place] Oxyhemoglobin (BldV) [Mass fraction] 59 % Low 60-85 [facility] Comment on above: Order Comment: Speci men Type: VENOUS BLOOD SPECIMENOrdering Facility: [facility] Address: [address] [place] [address] Performed By: #### 2 4344-4 ####[facility] LABCLIA [id number] [place] [address] [place] pH (BldV) 7.38 [pH] Normal 7.32-7.42 [facility] Comment on above: Order Comment: Speci men Type: VENOUS BLOOD SPECIMENOrdering Facility: [facility] Address: [address] [place] [address] Performed By: #### 2 4344-4 ####[facility] LABCLIA [id number] [place] [address] [place] pH adjusted to patient's actual temperature (BldV) 7.37 Normal 7.32-7.42 [facility] Comment on above: Order Comment: Speci men Type: VENOUS BLOOD SPECIMENOrdering Facility: [facility] Address: [address] [place] [address] Performed By: #### 2 4344-4 ####[facility] LABCLIA [id number] [place] [address] [place] Sodium [Moles/Vol] 139 mmol/L Normal 136-144 [facility] Comment on above: Order Comment: Speci men Type: VENOUS BLOOD SPECIMENOrdering Facility: [facility] Address: [address] [place] [address] Performed By: #### 2 4344-4 ####[facility] LABCLIA [id number] [place] [address] [place] BASE DEFICIT, VENOUS -1 mmol/L Normal -2-0 [facility] Comment on above: Order Comment: Speci men Type: VENOUS BLOOD SPECIMENOrdering Facility: [facility] Address: [address] [place] [address] Performed By: #### 2 4344-4 ####[facility] LABCLIA [id number] [place] [address] [place] Calcium.ionized (Bld) [Mass/Vol] 1.20 mmol/L Normal 1.08-1.30 [facility] Comment on above: Order Comment: Speci men Type: VENOUS BLOOD SPECIMENOrdering Facility: [facility] Address: [address] [place] [address] Performed By: #### 2 4344-4 ####[facility] LABCLIA [id number] [place] [address] [place] Calcium.ionized adjusted to pH 7.4 (BldA) [Moles/Vol] 1.18 mmol/L Normal 1.08-1.30 [facility] Comment on above: Order Comment: Speci men Type: VENOUS BLOOD SPECIMENOrdering Facility: [facility] Address: [address] [place] [address] Performed By: #### 2 4344-4 ####[facility] LABIA [id number] [place] [address] [place] Carboxyhemoglobin (BldV) [Mass fraction] 1.2 % Normal 0.0-2.0 [facility] Comment on above: Order Comment: Speci men Type: VENOUS BLOOD SPECIMENOrdering Facility: [facility] Address: [address] [place] [address] Result Comment: Carb oxyhemoglobin Reference Range for Smokers: 2.0-8.0% Performed By: #### 2 4344-4 ####[facility] LABCLIA [id number] [place] [address] [place] CO2 (BldV) [Partial pressure] 43 mm[Hg] Normal 42-55 [facility] Comment on above: Order Comment: Speci men Type: VENOUS BLOOD SPECIMENOrdering Facility: [facility] Address: [address] [place] [address] Performed By: #### 2 4344-4 ####[facility] LABCLIA [id number] [place] [address] [place] CO2 adjusted to patient's actual temperature (BldV) [Partial pressure] 44 mmHg Normal 42-55 [facility] Comment on above: Order Comment: Speci men Type: VENOUS BLOOD SPECIMENOrdering Facility: [facility] Address: [address] [place] [address] Performed By: #### 2 4344-4 ####[facility] LABCLIA [id number] [place] [address] [place] Glucose [Mass/Vol] 180 mg/dL High 60-105 [facility] Comment on above: Order Comment: Speci men Type: VENOUS BLOOD SPECIMENOrdering Facility: [facility] Address: [address] [place] [address] Performed By: #### 2 4344-4 ####[facility] LABCLIA [id number] [place] [address] [place] HCO3 (Bld) [Moles/Vol] 24 mmol/L Normal 24-28 [facility] Comment on above: Order Comment: Speci men Type: VENOUS BLOOD SPECIMENOrdering Facility: [facility] Address: [address] [place] [address] Performed By: #### 2 4344-4 ####[facility] LABCLIA [id number] [place] [address] [place] Hematocrit (Bld) [Volume fraction] 28.4 % Low 36.0-46.0 [facility] Comment on above: Order Comment: Speci men Type: VENOUS BLOOD SPECIMENOrdering Facility: [facility] Address: [address] [place] [address] Performed By: #### 2 4344-4 ####[facility] LABCLIA [id number] [place] [address] [place] Hemoglobin (Bld) [Mass/Vol] 9.2 g/dL Low 11.5-15.5 [facility] Comment on above: Order Comment: Speci men Type: VENOUS BLOOD SPECIMENOrdering Facility: [facility] Address: [address] [place] [address] Performed By: #### 2 4344-4 ####[facility] LABCLIA [id number] [place] [address] [place] Lactate [Moles/Vol] 1.1 mmol/L Normal 0.5-2.2 [facility] Comment on above: Order Comment: Speci men Type: VENOUS BLOOD SPECIMENOrdering Facility: [facility] Address: [address] [place] [address] Performed By: #### 2 4344-4 ####[facility] LABCLIA [id number] [place] [address] [place] Methemoglobin (Bld) [Mass fraction] 1.3 % Normal 0.0-1.5 [facility] Comment on above: Order Comment: Speci men Type: VENOUS BLOOD SPECIMENOrdering Facility: [facility] Address: [address] [place] [address] Performed By: #### 2 4344-4 ####[facility] LABCLIA [id number] [place] [address] [place] Oxygen (BldV) [Partial pressure] 39 mm[Hg] Normal 35-45 [facility] Comment on above: Order Comment: Speci men Type: VENOUS BLOOD SPECIMENOrdering Facility: [facility] Address: [address] [place] [address] Performed By: #### 2 4344-4 ####[facility] LABCLIA [id number] [address] [address] [place] Oxygen adjusted to patient's actual temperature (BldV) [Partial pressure] 40 mmHg Normal 35-45 [facility] Comment on above: Order Comment: Speci men Type: VENOUS BLOOD SPECIMENOrdering Facility: [facility] Address: [address] [place], [place] [address] Performed By: #### 2 4344-4 ####[facility] LABCLIA [id number] [address] [address] [place] Oxygen saturation in Venous blood 65 % Normal 60-85 [facility] Comment on above: Order Comment: Speci men Type: VENOUS BLOOD SPECIMENOrdering Facility: [facility] Address: [address] [place], [place] [address] Performed By: #### 2 4344-4 ####[facility] LABCLIA [id number] [place] [address] [place] Oxyhemoglobin (BldV) [Mass fraction] 63 % Normal 60-85 [facility] Comment on above: Order Comment: Speci men Type: VENOUS BLOOD SPECIMENOrdering Facility: [facility] Address: [address] [place] [address] Performed By: #### 2 4344-4 ####[facility] LABCLIA [id number] [place] [id number] [place] pH (BldV) 7.36 [pH] Normal 7.32-7.42 [facility] Comment on above: Order Comment: Speci men Type: VENOUS BLOOD SPECIMENOrdering Facility: [facility] Address: [address] [place], [place] [address] Performed By: #### 2 4344-4 ####[facility] LABCLIA [id number] [address] [address] [place] pH adjusted to patient's actual temperature (BldV) 7.35 Normal 7.32-7.42 [facility] Comment on above: Order Comment: Speci men Type: VENOUS BLOOD SPECIMENOrdering Facility: [facility] Address: [address] [place] [id number] Performed By: #### 2 4344-4 ####[facility] LABCLIA [id number] [address] [address] [place] Potassium [Moles/Vol] 3.7 mmol/L Normal 3.5-5.[address] [facility] Comment on above: Order Comment: Speci men Type: VENOUS BLOOD SPECIMENOrdering Facility: [facility] Address: [address] [place], [place] [address] Performed By: #### 2 4344-4 ####[facility] LABCLIA [id number] [place] [address] [place] Sodium [Moles/Vol] 139 mmol/L Normal 136-144 [facility] Comment on above: Order Comment: Speci men Type: VENOUS BLOOD SPECIMENOrdering Facility: [facility] Address: [address] [place], [place] [address] Performed By: #### 2 4344-4 ####[facility] LABCLIA [id number] [place] [address] [place] BASE DEFICIT, VENOUS -2 mmol/L Normal -2-0 [facility] Comment on above: Order Comment: Speci men Type: VENOUS BLOOD SPECIMENOrdering Facility: [facility] Address: [address] [place], [place] [address] Performed By: #### 2 4344-4 ####[facility] LABIA [id number] [place] [id number] [place] Calcium.ionized (Bld) [Mass/Vol] 1.21 mmol/L Normal 1.08-1.30 [facility] Comment on above: Order Comment: Speci men Type: VENOUS BLOOD SPECIMENOrdering Facility: [facility] Address: [address] [place], [place] [address] Performed By: #### 2 4344-4 ####[facility] LABCLIA [id number] [place] [address] [place] Carboxyhemoglobin (BldV) [Mass fraction] 1.3 % Normal 0.0-2.0 [facility] Comment on above: Order Comment: Speci men Type: VENOUS BLOOD SPECIMENOrdering Facility: [facility] Address: [address] [place] [address] Result Comment: Carb oxyhemoglobin Reference Range for Smokers: 2.0-8.0% Performed By: #### 2 4344-4 ####[facility] LABCLIA [id number] [place] [address] [place] CO2 (BldV) [Partial pressure] 44 mm[Hg] Normal 42-55 [facility] Comment on above: Order Comment: Speci men Type: VENOUS BLOOD SPECIMENOrdering Facility: [facility] Address: [address] [place] [address] Performed By: #### 2 4344-4 ####[facility] LABCLIA [id number] [place] [address] [place] CO2 adjusted to patient's actual temperature (BldV) [Partial pressure] 45 mmHg Normal 42-55 [facility] Comment on above: Order Comment: Speci men Type: VENOUS BLOOD SPECIMENOrdering Facility: [facility] Address: [address] [place] [address] Performed By: #### 2 4344-4 ####[facility] LABCLIA [id number] [place] [address] [place] Glucose [Mass/Vol] 166 mg/dL High 60-105 [facility] Comment on above: Order Comment: Speci men Type: VENOUS BLOOD SPECIMENOrdering Facility: [facility] Address: [address] [place] [address] Performed By: #### 2 4344-4 ####[facility] LABCLIA [id number] [id number] [address] [place] HCO3 (Bld) [Moles/Vol] 23 mmol/L Low 24-28 [facility] Comment on above: Order Comment: Speci men Type: VENOUS BLOOD SPECIMENOrdering Facility: [facility] Address: [address] [place] [address] Performed By: #### 2 4344-4 ####[facility] LABCLIA [id number] [place] [address] [place] Hematocrit (Bld) [Volume fraction] 28.4 % Low 36.0-46.0 [facility] Comment on above: Order Comment: Speci men Type: VENOUS BLOOD SPECIMENOrdering Facility: [facility] Address: [address] [place] [address] Performed By: #### 2 4344-4 ####[facility] LABIA [id number] [place] [address] [place] Hemoglobin (Bld) [Mass/Vol] 9.2 g/dL Low 11.5-15.5 [facility] Comment on above: Order Comment: Speci men Type: VENOUS BLOOD SPECIMENOrdering Facility: [facility] Address: [address] [place] [address] Performed By: #### 2 4344-4 ####[facility] LABIA [id number] [place] [address] [place] Lactate [Moles/Vol] 1.0 mmol/L Normal 0.5-2.2 [facility] Comment on above: Order Comment: Speci men Type: VENOUS BLOOD SPECIMENOrdering Facility: [facility] Address: [address] [place] [address] Performed By: #### 2 4344-4 ####[facility] LABCLIA [id number] [place] [address] [place] Methemoglobin (Bld) [Mass fraction] 1.5 % Normal 0.0-1.5 [facility] Comment on above: Order Comment: Speci men Type: VENOUS BLOOD SPECIMENOrdering Facility: [facility] Address: [address] [place] [address] Performed By: #### 2 4344-4 ####[facility] LABCLIA [id number] [address] [address] [place] Oxygen (BldV) [Partial pressure] 35 mm[Hg] Normal 35-45 [facility] Comment on above: Order Comment: Speci men Type: VENOUS BLOOD SPECIMENOrdering Facility: [facility] Address: [address] [place] [address] Performed By: #### 2 4344-4 ####[facility] LABCLIA [id number] [address] [address] [place] Oxygen adjusted to patient's actual temperature (BldV) [Partial pressure] 36 mmHg Normal 35-45 [facility] Comment on above: Order Comment: Speci men Type: VENOUS BLOOD SPECIMENOrdering Facility: [facility] Address: [address] [place] [address] Performed By: #### 2 4344-4 ####[facility] LABCLIA [id number] [address] [address] [place] Oxygen saturation in Venous blood 55 % Low 60-85 [facility] Comment on above: Order Comment: Speci men Type: VENOUS BLOOD SPECIMENOrdering Facility: [facility] Address: [address] [place] [address] Performed By: #### 2 4344-4 ####[facility] LABCLIA [id number] [address] [address] [place] Oxyhemoglobin (BldV) [Mass fraction] 54 % Low 60-85 [facility] Comment on above: Order Comment: Speci men Type: VENOUS BLOOD SPECIMENOrdering Facility: [facility] Address: [address] [place] [address] Performed By: #### 2 4344-4 ####[facility] LABCLIA [id number] [place] [address] [place] pH (BldV) 7.35 [pH] Normal 7.32-7.42 [facility] Comment on above: Order Comment: Speci men Type: VENOUS BLOOD SPECIMENOrdering Facility: [facility] Address: [address] [place] [address] Performed By: #### 2 4344-4 ####[facility] LABCLIA [id number] [place] [address] [place] pH adjusted to patient's actual temperature (BldV) 7.34 Normal 7.32-7.42 [facility] Comment on above: Order Comment: Speci men Type: VENOUS BLOOD SPECIMENOrdering Facility: [facility] Address: [address] [place] [address] Performed By: #### 2 4344-4 ####[facility] LABIA [id number] [place] [address] [place] Potassium [Moles/Vol] 4.0 mmol/L Normal 3.5-5.[address] [facility] Comment on above: Order Comment: Speci men Type: VENOUS BLOOD SPECIMENOrdering Facility: [facility] Address: [address] [place] [address] Performed By: #### 2 4344-4 ####[facility] LABIA [id number] [place] [address] [place] THERAPY NTon 10-30-2023 THERAPY NT Normal [facility] XR CHEST 1V FRONTALon 2023 XR CHEST 1V FRONTAL Normal [facility] ARTERIAL BLOOD GASESon 10-28 Base deficit (BldA) [Moles/Vol] -2 mmol/L Normal -2-0 [facility] Comment on above: Order Comment: Speci men Type: ARTERIAL BLOOD SPECIMENOrdering Facility: [facility] Address: [address] [place] [address] Performed By: #### A LLBG ####[facility] LABCLIA [id number] [place] [address] [place] Body temperature 100.04 [degF] Normal [facility] Comment on above: Order Comment: Speci men Type: ARTERIAL BLOOD SPECIMENOrdering Facility: [facility] Address: [address] [place] [address] Performed By: #### A LLBG ####[facility] LABCLIA [id number] [address] [place] Order Comment: Speci men Type: VENOUS BLOOD SPECIMENOrdering Facility: [facility] Address: [address] [place] [address] Performed By: #### 2 4344-4 ####[facility] LABCLIA [id number] [place] [address] [place] Calcium.ionized (Bld) [Mass/Vol] 1.17 mmol/L Normal 1.08-1.30 [facility] Comment on above: Order Comment: Speci men Type: ARTERIAL BLOOD SPECIMENOrdering Facility: [facility] Address: [address] [place] [address] Performed By: #### A LLBG ####[facility] LABCLIA [id number] [address] [place] Order Comment: Speci men Type: VENOUS BLOOD SPECIMENOrdering Facility: [facility] Address: [address] [place] [address] Performed By: #### 2 4344-4 ####[facility] LABCLIA [id number] [place] [address] [place] Calcium.ionized adjusted to pH 7.4 (BldA) [Moles/Vol] 1.17 mmol/L Normal 1.08-1.30 [facility] Comment on above: Order Comment: Speci men Type: ARTERIAL BLOOD SPECIMENOrdering Facility: [facility] Address: [address] [place] [address] Performed By: #### A LLBG ####[facility] LABCLIA [id number] [place] [address] [place] Carboxyhemoglobin (BldA) [Mass fraction] 1.4 % Normal 0.0-2.0 [facility] Comment on above: Order Comment: Speci men Type: ARTERIAL BLOOD SPECIMENOrdering Facility: [facility] Address: [address] [place] [address] Result Comment: Carb oxyhemoglobin Reference Range for Smokers: 2.0-8.0% Performed By: #### A LLBG ####[facility] LABCLIA [id number] [place] [address] [place] CO2 (Bld) [Partial pressure] 38 mm Hg Normal 36-46 [facility] Comment on above: Order Comment: Speci men Type: ARTERIAL BLOOD SPECIMENOrdering Facility: [facility] Address: [address] [place] [address] Performed By: #### A LLBG ####[facility] LABCLIA [id number] [place] [address] [place] CO2 adjusted to patient's actual temperature (Bld) [Partial pressure] 40 mmHg Normal 36-46 [facility] Comment on above: Order Comment: Speci men Type: ARTERIAL BLOOD SPECIMENOrdering Facility: [facility] Address: [address] [place] [address] Performed By: #### A LLBG ####[facility] LABCLIA [id number] [place] [address] [place] FIO2 35 % Normal [facility] Comment on above: Order Comment: Speci men Type: ARTERIAL BLOOD SPECIMENOrdering Facility: [facility] Address: [address] [place] [address] Performed By: #### A LLBG ####[facility] LABCLIA [id number] [place] [address] [place] Order Comment: Speci men Type: VENOUS BLOOD SPECIMENOrdering Facility: [facility] Address: [address] [place] [address] Performed By: #### 2 4344-4 ####[facility] LABCLIA [id number] [place] [address] [place] Glucose [Mass/Vol] 129 mg/dL High 60-105 [facility] Comment on above: Order Comment: Speci men Type: ARTERIAL BLOOD SPECIMENOrdering Facility: [facility] Address: [address] [place] [address] Performed By: #### A LLBG ####[facility] LABCLIA [id number] [place] [address] [place] HCO3 (Bld) [Moles/Vol] 22 mmol/L Normal 22-26 [facility] Comment on above: Order Comment: Speci men Type: ARTERIAL BLOOD SPECIMENOrdering Facility: [facility] Address: [address] [place] [address] Performed By: #### A LLBG ####[facility] LABCLIA [id number] [place] [address] [place] Hematocrit (Bld) [Volume fraction] 27.1 % Low 36.0-46.0 [facility] Comment on above: Order Comment: Speci men Type: ARTERIAL BLOOD SPECIMENOrdering Facility: [facility] Address: [address] [place] [address] Performed By: #### A LLBG ####[facility] LABCLIA [id number] [place] [address] [place] Hemoglobin (Bld) [Mass/Vol] 8.7 g/dL Low 11.5-15.5 [facility] Comment on above: Order Comment: Speci men Type: ARTERIAL BLOOD SPECIMENOrdering Facility: [facility] Address: [address] [place] [address] Performed By: #### A LLBG ####[facility] LABCLIA [id number] [place] [address] [place] Lactate [Moles/Vol] 1.2 mmol/L Normal 0.5-2.2 [facility] Comment on above: Order Comment: Speci men Type: ARTERIAL BLOOD SPECIMENOrdering Facility: [facility] Address: [address] [place] [address] Performed By: #### A LLBG ####[facility] LABCLIA [id number] [place] [address] [place] LITERS 50 Liters/min Normal [facility] Comment on above: Order Comment: Speci men Type: ARTERIAL BLOOD SPECIMENOrdering Facility: [facility] Address: [address] [place] [address] Performed By: #### A LLBG ####[facility] LABCLIA [id number] [place] [address] [place] Order Comment: Speci men Type: VENOUS BLOOD SPECIMENOrdering Facility: [facility] Address: [address] [place] [address] Performed By: #### 2 4344-4 ####[facility] LABCLIA [id number] [place] [address] [place] Methemoglobin (Bld) [Mass fraction] 0.4 % Normal 0.0-1.5 [facility] Comment on above: Order Comment: Speci men Type: ARTERIAL BLOOD SPECIMENOrdering Facility: [facility] Address: [address] [place] [address] Performed By: #### A LLBG ####[facility] LABCLIA [id number] [place] [address] [place] O2 THERAPY Hi-Flow Nasal Cannula-Heated Normal Fort [facility] Comment on above: Order Comment: Speci men Type: ARTERIAL BLOOD SPECIMENOrdering Facility: [facility] Address: [address] [place] [address] Performed By: #### A LLBG ####[facility] LABCLIA [id number] [place] [address] [place] Order Comment: Speci men Type: VENOUS BLOOD SPECIMENOrdering Facility: [facility] Address: [address] [place] [address] Performed By: #### 2 4344-4 ####[facility] LABCLIA [id number] [place] [address] [place] Oxygen (Bld) [Partial pressure] 73 mm Hg Low 85-95 [facility] Comment on above: Order Comment: Speci men Type: ARTERIAL BLOOD SPECIMENOrdering Facility: [facility] Address: [address] [place] [address] Performed By: #### A LLBG ####[facility] LABCLIA [id number] [place] [address] [place] Oxygen adjusted to patient's actual temperature (Bld) [Partial pressure] 77 mmHg Low 85-95 [facility] Comment on above: Order Comment: Speci men Type: ARTERIAL BLOOD SPECIMENOrdering Facility: [facility] Address: [address] [place] [address] Performed By: #### A LLBG ####[facility] LABCLIA [id number] [place] [address] [place] Oxyhemoglobin (BldA) [Mass fraction] 93 % Low 95-98 [facility] Comment on above: Order Comment: Speci men Type: ARTERIAL BLOOD SPECIMENOrdering Facility: [facility] Address: [address] [place] [id number] Performed By: #### A LLBG ####[facility] LABCLIA [id number] [place] [address] [place] pH (Bld) 7.39 [pH] Normal 7.35-7.45 [facility] Comment on above: Order Comment: Speci men Type: ARTERIAL BLOOD SPECIMENOrdering Facility: [facility] Address: [address] [place] [address] Performed By: #### A LLBG ####[facility] LABCLIA [id number] [place] [address] [place] pH adjusted to patient's actual temperature (Bld) 7.38 Normal 7.35-7.45 [facility] Comment on above: Order Comment: Speci men Type: ARTERIAL BLOOD SPECIMENOrdering Facility: [facility] Address: [address] [place] [address] Performed By: #### A LLBG ####[facility] LABCLIA [id number] [place] [address] [place] PO2 / FIO2 RATIO 209 mmHg Low >[address] [facility] [place] [facility] Comment on above: Order Comment: Speci men Type: ARTERIAL BLOOD SPECIMENOrdering Facility: [facility] Address: [address] [place] [address] Performed By: #### A LLBG ####[facility] LABCLIA [id number] [place] [address] [place] Potassium [Moles/Vol] 4.1 mmol/L Normal 3.5-5.[address] [facility] Comment on above: Order Comment: Speci men Type: ARTERIAL BLOOD SPECIMENOrdering Facility: [facility] Address: [address] [place] [address] Performed By: #### A LLBG ####[facility] LABCLIA [id number] [place] [address] [place] Order Comment: Speci men Type: VENOUS BLOOD SPECIMENOrdering Facility: [facility] Address: [address] [place], [place] [address] Performed By: #### 2 4344-4 ####[facility] LABCLIA [id number] [place] [id number] [place] Sodium [Moles/Vol] 139 mmol/L Normal 136-144 [facility] Comment on above: Order Comment: Speci men Type: ARTERIAL BLOOD SPECIMENOrdering Facility: [facility] Address: [address] [place] [address] Performed By: #### A LLBG ####[facility] LABCLIA [id number] [place] [address] [place] Order Comment: Speci men Type: VENOUS BLOOD SPECIMENOrdering Facility: [facility] Address: [address] [place] [address] Performed By: #### 2 4344-4 ####[facility] LABCLIA [id number] [place] [address] [place] Base deficit (BldA) [Moles/Vol] -1 mmol/L Normal -2-0 [facility] Comment on above: Order Comment: Speci men Type: ARTERIAL BLOOD SPECIMENOrdering Facility: [facility] Address: [address] [place] [address] Performed By: #### A LLBG ####[facility] LABCLIA [id number] [place] [address] [place] Body temperature 99.68 [degF] Normal [facility] Comment on above: Order Comment: Speci men Type: ARTERIAL BLOOD SPECIMENOrdering Facility: [facility] Address: [address] [place] [address] Performed By: #### A LLBG ####[facility] LABCLIA [id number] [place] [address] [place] Calcium.ionized (Bld) [Mass/Vol] 1.21 mmol/L Normal 1.08-1.30 [facility] Comment on above: Order Comment: Speci men Type: ARTERIAL BLOOD SPECIMENOrdering Facility: [facility] Address: [address] [place] [address] Performed By: #### A LLBG ####[facility] LABCLIA [id number] [place] [address] [place] Order Comment: Speci men Type: VENOUS BLOOD SPECIMENOrdering Facility: [facility] Address: [address] [place] [address] Performed By: #### 2 4344-4 ####[facility] LABCLIA [id number] [place] [address] [place] Calcium.ionized adjusted to pH 7.4 (BldA) [Moles/Vol] 1.20 mmol/L Normal 1.08-1.30 [facility] Comment on above: Order Comment: Speci men Type: ARTERIAL BLOOD SPECIMENOrdering Facility: [facility] Address: [address] [place] [address] Performed By: #### A LLBG ####[facility] LABCLIA [id number] [place] [address] [place] Carboxyhemoglobin (BldA) [Mass fraction] 1.4 % Normal 0.0-2.0 [facility] Comment on above: Order Comment: Speci men Type: ARTERIAL BLOOD SPECIMENOrdering Facility: [facility] Address: [address] [place] [address] Result Comment: Carb oxyhemoglobin Reference Range for Smokers: 2.0-8.0% Performed By: #### A LLBG ####[facility] LABCLIA [id number] [place] [address] [place] CO2 (Bld) [Partial pressure] 38 mm Hg Normal 36-46 [facility] Comment on above: Order Comment: Speci men Type: ARTERIAL BLOOD SPECIMENOrdering Facility: [facility] Address: [address] [place] [address] Performed By: #### A LLBG ####[facility] LABCLIA [id number] [place] [address] [place] CO2 adjusted to patient's actual temperature (Bld) [Partial pressure] 39 mmHg Normal 36-46 [facility] Comment on above: Order Comment: Speci men Type: ARTERIAL BLOOD SPECIMENOrdering Facility: [facility] Address: [address] [place] [address] Performed By: #### A LLBG ####[facility] LABCLIA [id number] [place] [address] [place] FIO2 40 % Normal [facility] Comment on above: Order Comment: Speci men Type: ARTERIAL BLOOD SPECIMENOrdering Facility: [facility] Address: [address] [place] [address] Performed By: #### A LLBG ####[facility] LABCLIA [id number] [place] [address] [place] Order Comment: Speci men Type: VENOUS BLOOD SPECIMENOrdering Facility: [facility] Address: [address] [place] [address] Performed By: #### 2 4344-4 ####[facility] LABCLIA [id number] [place] [address] [place] Glucose [Mass/Vol] 123 mg/dL High 60-105 [facility] Comment on above: Order Comment: Speci men Type: ARTERIAL BLOOD SPECIMENOrdering Facility: [facility] Address: [address] [place] [address] Performed By: #### A LLBG ####[facility] LABCLIA [id number] [place] [address] [place] HCO3 (Bld) [Moles/Vol] 23 mmol/L Normal 22-26 [facility] Comment on above: Order Comment: Speci men Type: ARTERIAL BLOOD SPECIMENOrdering Facility: [facility] Address: [address] [place] [address] Performed By: #### A LLBG ####[facility] LABCLIA [id number] [place] [address] [place] Hematocrit (Bld) [Volume fraction] 27.8 % Low 36.0-46.0 [facility] Comment on above: Order Comment: Speci men Type: ARTERIAL BLOOD SPECIMENOrdering Facility: [facility] Address: [address] [place] [address] Performed By: #### A LLBG ####[facility] LABCLIA [id number] [place] [address] [place] Hemoglobin (Bld) [Mass/Vol] 9.0 g/dL Low 11.5-15.5 [facility] Comment on above: Order Comment: Speci men Type: ARTERIAL BLOOD SPECIMENOrdering Facility: [facility] Address: [address] [place] [address] Performed By: #### A LLBG ####[facility] LABCLIA [id number] [place] [address] [place] Lactate [Moles/Vol] 1.1 mmol/L Normal 0.5-2.2 [facility] Comment on above: Order Comment: Speci men Type: ARTERIAL BLOOD SPECIMENOrdering Facility: [facility] Address: [address] [place] [address] Performed By: #### A LLBG ####[facility] LABCLIA [id number] [place] [address] [place] Order Comment: Speci men Type: VENOUS BLOOD SPECIMENOrdering Facility: [facility] Address: [address] [place] [address] Performed By: #### 2 4344-4 ####[facility] LABCLIA [id number] [place] [address] [place] LITERS 50 Liters/min Normal [facility] Comment on above: Order Comment: Speci men Type: ARTERIAL BLOOD SPECIMENOrdering Facility: [facility] Address: [address] [place] [address] Performed By: #### A LLBG ####[facility] LABCLIA [id number] [place] [address] [place] Order Comment: Speci men Type: VENOUS BLOOD SPECIMENOrdering Facility: [facility] Address: [address] [place] [address] Performed By: #### 2 4344-4 ####[facility] LABCLIA [id number] [place] [address] [place] Methemoglobin (Bld) [Mass fraction] 0.6 % Normal 0.0-1.5 [facility] Comment on above: Order Comment: Speci men Type: ARTERIAL BLOOD SPECIMENOrdering Facility: [facility] Address: [address] [place] [place] [id number] Performed By: #### A LLBG ####[facility] LABCLIA [id number] [place] [address] [place] O2 THERAPY Hi-Flow Nasal Cannula-Heated Normal [facility] Comment on above: Order Comment: Speci men Type: ARTERIAL BLOOD SPECIMENOrdering Facility: [facility] Address: [address] [place], [place] [address] Performed By: #### A LLBG ####[facility] LABCLIA [id number] [place] [address] [place] Order Comment: Speci men Type: VENOUS BLOOD SPECIMENOrdering Facility: [facility] Address: [address] [place], [place] [address] Performed By: #### 2 4344-4 ####[facility] LABCLIA [id number] [place] [address] [place] Oxygen (Bld) [Partial pressure] 94 mm Hg Normal 85-95 [facility] Comment on above: Order Comment: Speci men Type: ARTERIAL BLOOD SPECIMENOrdering Facility: [facility] Address: [address] [place] [place] [id number] Performed By: #### A LLBG ####[facility] LABCLIA [id number] [place] [id number] [place] Oxygen adjusted to patient's actual temperature (Bld) [Partial pressure] 97 mmHg High 85-95 [facility] Comment on above: Order Comment: Speci men Type: ARTERIAL BLOOD SPECIMENOrdering Facility: [facility] Address: [address] [place] [address] Performed By: #### A LLBG ####[facility] LABCLIA [id number] [place] [address] [place] Oxyhemoglobin (BldA) [Mass fraction] 96 % Normal 95-98 [facility] Comment on above: Order Comment: Speci men Type: ARTERIAL BLOOD SPECIMENOrdering Facility: [facility] Address: [address] [place] [address] Performed By: #### A LLBG ####[facility] LABCLIA [id number] [place] [address] [place] pH (Bld) 7.40 [pH] Normal 7.35-7.45 [facility] Comment on above: Order Comment: Speci men Type: ARTERIAL BLOOD SPECIMENOrdering Facility: [facility] Address: [address] [place] [address] Performed By: #### A LLBG ####[facility] LABCLIA [id number] [address] [place] pH adjusted to patient's actual temperature (Bld) 7.39 Normal 7.35-7.45 [facility] Comment on above: Order Comment: Speci men Type: ARTERIAL BLOOD SPECIMENOrdering Facility: [facility] Address: [address] [place] [address] Performed By: #### A LLBG ####[facility] LABCLIA [id number] [place] [address] [place] PO2 / FIO2 RATIO 235 mmHg Low >[address] [facility] Comment on above: Order Comment: Speci men Type: ARTERIAL BLOOD SPECIMENOrdering Facility: [facility] Address: [address] [place] [address] Performed By: #### A LLBG ####[facility] LABCLIA [id number] [place] [address] [place] Potassium [Moles/Vol] 4.1 mmol/L Normal 3.5-5.[address] [facility] Comment on above: Order Comment: Speci men Type: ARTERIAL BLOOD SPECIMENOrdering Facility: [facility] Address: [address] [place], [place] [address] Performed By: #### A LLBG ####[facility] LABCLIA [id number] [address] [place] Order Comment: Speci men Type: VENOUS BLOOD SPECIMENOrdering Facility: [facility] Address: [address] [place] [address] Performed By: #### 2 4344-4 ####[facility] LABCLIA [id number] [place] [address] [place] Sodium [Moles/Vol] 138 mmol/L Normal 136-144 [facility] Comment on above: Order Comment: Speci men Type: ARTERIAL BLOOD SPECIMENOrdering Facility: [facility] Address: [address] [place] [address] Performed By: #### A LLBG ####[facility] LABCLIA [id number] [address] [place] Order Comment: Speci men Type: VENOUS BLOOD SPECIMENOrdering Facility: [facility] Address: [address] [place], [place] [address] Performed By: #### 2 4344-4 ####[facility] LABCLIA [id number] [place] [address] [place] Base deficit (BldA) [Moles/Vol] -1 mmol/L Normal -2-0 [facility] Comment on above: Order Comment: Speci men Type: ARTERIAL BLOOD SPECIMENOrdering Facility: [facility] Address: [address] [place], [place] [address] Performed By: #### A LLBG ####[facility] LABCLIA [id number] [address] [place] Calcium.ionized (Bld) [Mass/Vol] 1.20 mmol/L Normal 1.08-1.30 [facility] Comment on above: Order Comment: Speci men Type: ARTERIAL BLOOD SPECIMENOrdering Facility: [facility] Address: [address] [place] [address] Performed By: #### A LLBG ####[facility] LABCLIA [id number] [place] [address] [place] Calcium.ionized adjusted to pH 7.4 (BldA) [Moles/Vol] 1.20 mmol/L Normal 1.08-1.30 [facility] Comment on above: Order Comment: Speci men Type: ARTERIAL BLOOD SPECIMENOrdering Facility: [facility] Address: [address] [place] [address] Performed By: #### A LLBG ####[facility] LABCLIA [id number] [address] [place] Carboxyhemoglobin (BldA) [Mass fraction] 1.2 % Normal 0.0-2.0 [facility] Comment on above: Order Comment: Speci men Type: ARTERIAL BLOOD SPECIMENOrdering Facility: [facility] Address: [address] [place] [address] Result Comment: Carb oxyhemoglobin Reference Range for Smokers: 2.0-8.0% Performed By: #### A LLBG ####[facility] LABCLIA [id number] [place] [address] [place] CO2 (Bld) [Partial pressure] 39 mm Hg Normal 36-46 [facility] Comment on above: Order Comment: Speci men Type: ARTERIAL BLOOD SPECIMENOrdering Facility: [facility] Address: [address] [place] [address] Performed By: #### A LLBG ####[facility] LABCLIA [id number] [place] [address] [place] CO2 adjusted to patient's actual temperature (Bld) [Partial pressure] 39 mmHg Normal 36-46 [facility] Comment on above: Order Comment: Speci men Type: ARTERIAL BLOOD SPECIMENOrdering Facility: [facility] Address: [address] [place] [address] Performed By: #### A LLBG ####[facility] LABCLIA [id number] [place] [address] [place] Glucose [Mass/Vol] 155 mg/dL High 60-105 [facility] Comment on above: Order Comment: Speci men Type: ARTERIAL BLOOD SPECIMENOrdering Facility: [facility] Address: [address] [place] [address] Performed By: #### A LLBG ####[facility] LABCLIA [id number] [place] [address] [place] HCO3 (Bld) [Moles/Vol] 24 mmol/L Normal 22-26 [facility] Comment on above: Order Comment: Speci men Type: ARTERIAL BLOOD SPECIMENOrdering Facility: [facility] Address: [address] [place] [address] Performed By: #### A LLBG ####[facility] LABCLIA [id number] [place] [address] [place] Hematocrit (Bld) [Volume fraction] 28.4 % Low 36.0-46.0 [facility] Comment on above: Order Comment: Speci men Type: ARTERIAL BLOOD SPECIMENOrdering Facility: [facility] Address: [address] [place] [address] Performed By: #### A LLBG ####[facility] LABCLIA [id number] [place] [address] [place] Hemoglobin (Bld) [Mass/Vol] 9.1 g/dL Low 11.5-15.5 [facility] Comment on above: Order Comment: Speci men Type: ARTERIAL BLOOD SPECIMENOrdering Facility: [facility] Address: [address], [place] [address] Performed By: #### A LLBG ####[facility] LABCLIA [id number] [place] [address] [place] Methemoglobin (Bld) [Mass fraction] 1.2 % Normal 0.0-1.5 [facility] Comment on above: Order Comment: Speci men Type: ARTERIAL BLOOD SPECIMENOrdering Facility: [facility] Address: [address] [place] [address] Performed By: #### A LLBG ####[facility] LABCLIA [id number] [place] [address] [place] Oxygen (Bld) [Partial pressure] 79 mm Hg Low 85-95 [facility] Comment on above: Order Comment: Speci men Type: ARTERIAL BLOOD SPECIMENOrdering Facility: [facility] Address: [address] [place] [address] Performed By: #### A LLBG ####[facility] LABCLIA [id number] [place] [address] [place] Oxygen adjusted to patient's actual temperature (Bld) [Partial pressure] 79 mmHg Low 85-95 [facility] Comment on above: Order Comment: Speci men Type: ARTERIAL BLOOD SPECIMENOrdering Facility: [facility] Address: [address] [place] [address] Performed By: #### A LLBG ####[facility] LABCLIA [id number] [place] [address] [place] Oxyhemoglobin (BldA) [Mass fraction] 93 % Low 95-98 [facility] Comment on above: Order Comment: Speci men Type: ARTERIAL BLOOD SPECIMENOrdering Facility: [facility] Address: [address] [place] [address] Performed By: #### A LLBG ####[facility] LABCLIA [id number] [place] [id number] [place] pH (Bld) 7.40 [pH] Normal 7.35-7.45 [facility] Comment on above: Order Comment: Speci men Type: ARTERIAL BLOOD SPECIMENOrdering Facility: [facility] Address: [address] [place] [address] Performed By: #### A LLBG ####[facility] LABCLIA [id number] [place] [address] [place] pH adjusted to patient's actual temperature (Bld) 7.39 Normal 7.35-7.45 [facility] Comment on above: Order Comment: Speci men Type: ARTERIAL BLOOD SPECIMENOrdering Facility: [facility] Address: [address] [place] [address] Performed By: #### A LLBG ####[facility] LABCLIA [id number] [place] [address] [place] PO2 / FIO2 RATIO 226 mmHg Low >[address] [facility] Comment on above: Order Comment: Speci men Type: ARTERIAL BLOOD SPECIMENOrdering Facility: [facility] Address: [address] [place] [address] Performed By: #### A LLBG ####[facility] LABCLIA [id number] [place] [address] [place] Base deficit (BldA) [Moles/Vol] -3 mmol/L Low -2-0 [facility] Comment on above: Order Comment: Speci men Type: ARTERIAL BLOOD SPECIMENOrdering Facility: [facility] Address: [address] [place] [address] Performed By: #### A LLBG ####[facility] LABCLIA [id number] [place] [address] [place] Calcium.ionized (Bld) [Mass/Vol] 1.21 mmol/L Normal 1.08-1.30 [facility] Comment on above: Order Comment: Speci men Type: ARTERIAL BLOOD SPECIMENOrdering Facility: [facility] Address: [address] [place] [address] Performed By: #### A LLBG ####[facility] LABCLIA [id number] [place] [address] [place] Calcium.ionized adjusted to pH 7.4 (BldA) [Moles/Vol] 1.20 mmol/L Normal 1.08-1.30 [facility] Comment on above: Order Comment: Speci men Type: ARTERIAL BLOOD SPECIMENOrdering Facility: [facility] Address: [address] [place] [address] Performed By: #### A LLBG ####[facility] LABIA [id number] [place] [address] [place] Carboxyhemoglobin (BldA) [Mass fraction] 1.2 % Normal 0.0-2.0 [facility] Comment on above: Order Comment: Speci men Type: ARTERIAL BLOOD SPECIMENOrdering Facility: [facility] Address: [address] [place] [address] Result Comment: Carb oxyhemoglobin Reference Range for Smokers: 2.0-8.0% Performed By: #### A LLBG ####[facility] LABIA [id number] [place] [address] [place] CO2 (Bld) [Partial pressure] 38 mm Hg Normal 36-46 [facility] Comment on above: Order Comment: Speci men Type: ARTERIAL BLOOD SPECIMENOrdering Facility: [facility] Address: [address] [place] [address] Performed By: #### A LLBG ####[facility] LABCLIA [id number] [place] [address] [place] CO2 adjusted to patient's actual temperature (Bld) [Partial pressure] 38 mmHg Normal 36-46 [facility] Comment on above: Order Comment: Speci men Type: ARTERIAL BLOOD SPECIMENOrdering Facility: [facility] Address: [address] [place] [address] Performed By: #### A LLBG ####[facility] [facility] LABCLIA [id number] [place] [address] [place] Glucose [Mass/Vol] 172 mg/dL High 60-105 [facility] Comment on above: Order Comment: Speci men Type: ARTERIAL BLOOD SPECIMENOrdering Facility: [facility] Address: [address] [place] [address] Performed By: #### A LLBG ####[facility] LABCLIA [id number] [place] [address] [place] HCO3 (Bld) [Moles/Vol] 22 mmol/L Normal 22-26 [facility] Comment on above: Order Comment: Speci men Type: ARTERIAL BLOOD SPECIMENOrdering Facility: [facility] Address: [address] [place] [address] Performed By: #### A LLBG ####[facility] LABCLIA [id number] [place] [address] [place] Hematocrit (Bld) [Volume fraction] 27.7 % Low 36.0-46.0 [facility] Comment on above: Order Comment: Speci men Type: ARTERIAL BLOOD SPECIMENOrdering Facility: [facility] Address: [address] [place] [address] Performed By: #### A LLBG ####[facility] LABCLIA [id number] [place] [address] [place] Hemoglobin (Bld) [Mass/Vol] 8.9 g/dL Low 11.5-15.5 [facility] Comment on above: Order Comment: Speci men Type: ARTERIAL BLOOD SPECIMENOrdering Facility: [facility] Address: [address] [place] [address] Performed By: #### A LLBG ####[facility] LABCLIA [id number] [place] [address] [place] Lactate [Moles/Vol] 1.0 mmol/L Normal 0.5-2.2 [facility] Comment on above: Order Comment: Speci men Type: ARTERIAL BLOOD SPECIMENOrdering Facility: [facility] Address: [address] [place] [address] Performed By: #### A LLBG ####[facility] LABCLIA [id number] [address] [address] [place] Methemoglobin (Bld) [Mass fraction] 0.4 % Normal 0.0-1.5 [facility] Comment on above: Order Comment: Speci men Type: ARTERIAL BLOOD SPECIMENOrdering Facility: [facility] Address: [address] [place] [id number] Performed By: #### A LLBG ####[facility] LABCLIA [id number] [place] [address] [place] Oxygen (Bld) [Partial pressure] 130 mm Hg High 85-95 [facility] Comment on above: Order Comment: Speci men Type: ARTERIAL BLOOD SPECIMENOrdering Facility: [facility] Address: [address] [place] [address] Performed By: #### A LLBG ####[facility] LABCLIA [id number] [place] [address] [place] Oxygen adjusted to patient's actual temperature (Bld) [Partial pressure] 131 mmHg High 85-95 [facility] Comment on above: Order Comment: Speci men Type: ARTERIAL BLOOD SPECIMENOrdering Facility: [facility] Address: [address] [place] [id number] Performed By: #### A LLBG ####[facility] LABCLIA [id number] [address] [address] [place] Oxyhemoglobin (BldA) [Mass fraction] 97 % Normal 95-98 [facility] Comment on above: Order Comment: Speci men Type: ARTERIAL BLOOD SPECIMENOrdering Facility: [facility] Address: [address] [place] [id number] Performed By: #### A LLBG ####[facility] LABCLIA [id number] [place] [address] [place] pH (Bld) 7.38 [pH] Normal 7.35-7.45 [facility] Comment on above: Order Comment: Speci men Type: ARTERIAL BLOOD SPECIMENOrdering Facility: [facility] Address: [address] [place] [address] Performed By: #### A LLBG ####[facility] LABCLIA [id number] [place] [address] [place] pH adjusted to patient's actual temperature (Bld) 7.37 Normal 7.35-7.45 [facility] Comment on above: Order Comment: Speci men Type: ARTERIAL BLOOD SPECIMENOrdering Facility: [facility] Address: [address] [place] [address] Performed By: #### A LLBG ####[facility] LABCLIA [id number] [place] [address] [place] PO2 / FIO2 RATIO 371 mmHg Normal >[address] [facility] [place] [facility] Comment on above: Order Comment: Speci men Type: ARTERIAL BLOOD SPECIMENOrdering Facility: [facility] Address: [address] [place] [address] Performed By: #### A LLBG ####[facility] LABCLIA [id number] [place] [address] [place] Potassium [Moles/Vol] 4.0 mmol/L Normal 3.5-5.[address] [facility] Comment on above: Order Comment: Speci men Type: ARTERIAL BLOOD SPECIMENOrdering Facility: [facility] Address: [address] [place] [address] Performed By: #### A LLBG ####[facility] LABCLIA [id number] [place] [address] [place] Sodium [Moles/Vol] 136 mmol/L Normal 136-144 [facility] Comment on above: Order Comment: Speci men Type: ARTERIAL BLOOD SPECIMENOrdering Facility: [facility] Address: [address] [place] [address] Performed By: #### A LLBG ####[facility] [id number] [place] [address] [place] Base deficit (BldA) [Moles/Vol] -3 mmol/L Low -2-0 [facility] Comment on above: Order Comment: Speci men Type: ARTERIAL BLOOD SPECIMENOrdering Facility: [facility] Address: [address] [place] [address] Performed By: #### A LLBG ####[facility] [id number] [place] [address] [place] Calcium.ionized (Bld) [Mass/Vol] 1.24 mmol/L Normal 1.08-1.30 [facility] Comment on above: Order Comment: Speci men Type: ARTERIAL BLOOD SPECIMENOrdering Facility: [facility] Address: [address] [place] [address] Performed By: #### A LLBG ####[facility] [id number] [place] [address] [place] Calcium.ionized adjusted to pH 7.4 (BldA) [Moles/Vol] 1.22 mmol/L Normal 1.08-1.30 [facility] Comment on above: Order Comment: Speci men Type: ARTERIAL BLOOD SPECIMENOrdering Facility: [facility] Address: [address] [place] [address] Performed By: #### A LLBG ####[facility] [id number] [place] [address] [place] Carboxyhemoglobin (BldA) [Mass fraction] 1.8 % Normal 0.0-2.0 [facility] Comment on above: Order Comment: Speci men Type: ARTERIAL BLOOD SPECIMENOrdering Facility: [facility] Address: [address] [place] [address] Result Comment: Carb oxyhemoglobin Reference Range for Smokers: 2.0-8.0% Performed By: #### A LLBG ####[facility] LABCLIA [id number] [place] [address] [place] CO2 (Bld) [Partial pressure] 38 mm Hg Normal 36-46 [facility] Comment on above: Order Comment: Speci men Type: ARTERIAL BLOOD SPECIMENOrdering Facility: [facility] Address: [address] [place] [address] Performed By: #### A LLBG ####[facility] LABCLIA [id number] [place] [address] [place] CO2 adjusted to patient's actual temperature (Bld) [Partial pressure] 38 mmHg Normal 36-46 [facility] Comment on above: Order Comment: Speci men Type: ARTERIAL BLOOD SPECIMENOrdering Facility: [facility] Address: [address] [place] [address] Performed By: #### A LLBG ####[facility] LABCLIA [id number] [place] [address] [place] Glucose [Mass/Vol] 169 mg/dL High 60-105 [facility] Comment on above: Order Comment: Speci men Type: ARTERIAL BLOOD SPECIMENOrdering Facility: [facility] Address: [address] [place] [address] Performed By: #### A LLBG ####[facility] LABCLIA [id number] [place] [address] [place] HCO3 (Bld) [Moles/Vol] 21 mmol/L Low 22-26 [facility] Comment on above: Order Comment: Speci men Type: ARTERIAL BLOOD SPECIMENOrdering Facility: [facility] Address: [address] [place] [address] Performed By: #### A LLBG ####[facility] LABCLIA [id number] [place] [address] [place] Hematocrit (Bld) [Volume fraction] 27.8 % Low 36.0-46.0 [facility] Comment on above: Order Comment: Speci men Type: ARTERIAL BLOOD SPECIMENOrdering Facility: [facility] Address: [address] [place] [address] Performed By: #### A LLBG ####[facility] LABIA [id number] [place] [address] [place] Hemoglobin (Bld) [Mass/Vol] 9.0 g/dL Low 11.5-15.5 [facility] Comment on above: Order Comment: Speci men Type: ARTERIAL BLOOD SPECIMENOrdering Facility: [facility] Address: [address] [place] [address] Performed By: #### A LLBG ####[facility] LABIA [id number] [place] [address] [place] Lactate [Moles/Vol] 1.0 mmol/L Normal 0.5-2.2 [facility] Comment on above: Order Comment: Speci men Type: ARTERIAL BLOOD SPECIMENOrdering Facility: [facility] Address: [address] [place] [address] Performed By: #### A LLBG ####[facility] LABIA [id number] [place] [address] [place] Methemoglobin (Bld) [Mass fraction] 0.6 % Normal 0.0-1.5 [facility] Comment on above: Order Comment: Speci men Type: ARTERIAL BLOOD SPECIMENOrdering Facility: [facility] Address: [address] [place] [address] Performed By: #### A LLBG ####[facility] LABIA [id number] [place] [address] [place] Oxygen (Bld) [Partial pressure] 115 mm Hg High 85-95 [facility] Comment on above: Order Comment: Speci men Type: ARTERIAL BLOOD SPECIMENOrdering Facility: [facility] Address: [address] [place] [address] Performed By: #### A LLBG ####[facility] LABCLIA [id number] [place] [address] [place] Oxygen adjusted to patient's actual temperature (Bld) [Partial pressure] 117 mmHg High 85-95 [facility] Comment on above: Order Comment: Speci men Type: ARTERIAL BLOOD SPECIMENOrdering Facility: [facility] Address: [address] [place] [address] Performed By: #### A LLBG ####[facility] LABCLIA [id number] [place] [address] [place] Oxyhemoglobin (BldA) [Mass fraction] 97 % Normal 95-98 [facility] Comment on above: Order Comment: Speci men Type: ARTERIAL BLOOD SPECIMENOrdering Facility: [facility] Address: [address] [place] [address] Performed By: #### A LLBG ####[facility] LABCLIA [id number] [place] [address] [place] pH (Bld) 7.37 [pH] Normal 7.35-7.45 [facility] Comment on above: Order Comment: Speci men Type: ARTERIAL BLOOD SPECIMENOrdering Facility: [facility] Address: [address] [place] [address] Performed By: #### A LLBG ####[facility] LABCLIA [id number] [place] [address] [place] pH adjusted to patient's actual temperature (Bld) 7.36 Normal 7.35-7.45 [facility] Comment on above: Order Comment: Speci men Type: ARTERIAL BLOOD SPECIMENOrdering Facility: [facility] Address: [address] [place] [address] Performed By: #### A LLBG ####[facility] LABCLIA [id number] [place] [address] [place] PO2 / FIO2 RATIO 288 mmHg Low >[address] [facility] [place] Comment on above: Order Comment: Speci men Type: ARTERIAL BLOOD SPECIMENOrdering Facility: [facility] Address: [address] [place] [address] Performed By: #### A LLBG ####[facility] LABCLIA [id number] [place] [address] [place] Potassium [Moles/Vol] 4.6 mmol/L Normal 3.5-5.[address] [facility] Comment on above: Order Comment: Speci men Type: ARTERIAL BLOOD SPECIMENOrdering Facility: [facility] Address: [address] [place] [address] Performed By: #### A LLBG ####[facility] LABCLIA [id number] [place] [address] [place] Sodium [Moles/Vol] 135 mmol/L Low 136-144 [facility] Comment on above: Order Comment: Speci men Type: ARTERIAL BLOOD SPECIMENOrdering Facility: [facility] Address: [address] [place] [address] Performed By: #### A LLBG ####[facility] LABCLIA [id number] [place] [address] [place] Base deficit (BldA) [Moles/Vol] -4 mmol/L Low -2-0 [facility] Comment on above: Order Comment: Speci men Type: ARTERIAL BLOOD SPECIMENOrdering Facility: [facility] Address: [address] [place] [address] Performed By: #### A LLBG ####[facility] LABIA [id number] [place] [address] [place] Calcium.ionized (Bld) [Mass/Vol] 1.10 mmol/L Normal 1.08-1.30 [facility] Comment on above: Order Comment: Speci men Type: ARTERIAL BLOOD SPECIMENOrdering Facility: [facility] Address: [address] [place] [address] Performed By: #### A LLBG ####[facility] LABCLIA [id number] [place] [address] [place] Calcium.ionized adjusted to pH 7.4 (BldA) [Moles/Vol] 1.08 mmol/L Normal 1.08-1.30 [facility] Comment on above: Order Comment: Speci men Type: ARTERIAL BLOOD SPECIMENOrdering Facility: [facility] Address: [address] [place] [address] Performed By: #### A LLBG ####[facility] LABCLIA [id number] [place] [address] [place] Carboxyhemoglobin (BldA) [Mass fraction] 1.7 % Normal 0.0-2.0 [facility] Comment on above: Order Comment: Speci men Type: ARTERIAL BLOOD SPECIMENOrdering Facility: [facility] Address: [address] [place] [address] Result Comment: Carb oxyhemoglobin Reference Range for Smokers: 2.0-8.0% Performed By: #### A LLBG ####[facility] LABCLIA [id number] [place] [address] [place] CO2 (Bld) [Partial pressure] 37 mm Hg Normal 36-46 [facility] Comment on above: Order Comment: Speci men Type: ARTERIAL BLOOD SPECIMENOrdering Facility: [facility] Address: [address] [place] [address] Performed By: #### A LLBG ####[facility] LABCLIA [id number] [place] [address] [place] CO2 adjusted to patient's actual temperature (Bld) [Partial pressure] 38 mmHg Normal 36-46 [facility] Comment on above: Order Comment: Speci men Type: ARTERIAL BLOOD SPECIMENOrdering Facility: [facility] Address: [address] [place] [address] Performed By: #### A LLBG ####[facility] LABCLIA [id number] [place] [address] [place] Glucose [Mass/Vol] 119 mg/dL High 60-105 [facility] Comment on above: Order Comment: Speci men Type: ARTERIAL BLOOD SPECIMENOrdering Facility: [facility] Address: [address] [place] [address] Performed By: #### A LLBG ####[facility] LABCLIA [id number] [place] [address] [place] HCO3 (Bld) [Moles/Vol] 20 mmol/L Low 22-26 [facility] Comment on above: Order Comment: Speci men Type: ARTERIAL BLOOD SPECIMENOrdering Facility: [facility] Address: [address] [place] [address] Performed By: #### A LLBG ####[facility] LABCLIA [id number] [place] [address] [place] Hematocrit (Bld) [Volume fraction] 25.4 % Low 36.0-46.0 [facility] Comment on above: Order Comment: Speci men Type: ARTERIAL BLOOD SPECIMENOrdering Facility: [facility] Address: [address] [place] [address] Performed By: #### A LLBG ####[facility] LABCLIA [id number] [place] [address] [place] Hemoglobin (Bld) [Mass/Vol] 8.2 g/dL Low 11.5-15.5 [facility] Comment on above: Order Comment: Speci men Type: ARTERIAL BLOOD SPECIMENOrdering Facility: [facility] Address: [address] [place] [address] Performed By: #### A LLBG ####[facility] LABCLIA [id number] [place] [address] [place] Lactate [Moles/Vol] 1.0 mmol/L Normal 0.5-2.2 [facility] Comment on above: Order Comment: Speci men Type: ARTERIAL BLOOD SPECIMENOrdering Facility: [facility] Address: [address] [place] [address] Performed By: #### A LLBG ####[facility] LABCLIA [id number] [address] [address] [place] Methemoglobin (Bld) [Mass fraction] 0.6 % Normal 0.0-1.5 [facility] Comment on above: Order Comment: Speci men Type: ARTERIAL BLOOD SPECIMENOrdering Facility: [facility] Address: [address] [place] [id number] Performed By: #### A LLBG ####[facility] LABCLIA [id number] [place] [id number] [place] O2 THERAPY Positive Normal [facility] Comment on above: Order Comment: Speci men Type: ARTERIAL BLOOD SPECIMENOrdering Facility: [facility] Address: [address] [place] [id number] Performed By: #### A LLBG ####[facility] LABCLIA [id number] [place] [id number] [place] Oxygen (Bld) [Partial pressure] 101 mm Hg High 85-95 [facility] Comment on above: Order Comment: Speci men Type: ARTERIAL BLOOD SPECIMENOrdering Facility: [facility] Address: [address] [place] [address] Performed By: #### A LLBG ####[facility] LABCLIA [id number] [address] [address] [place] Oxygen adjusted to patient's actual temperature (Bld) [Partial pressure] 105 mmHg High 85-95 [facility] Comment on above: Order Comment: Speci men Type: ARTERIAL BLOOD SPECIMENOrdering Facility: [facility] Address: [address] [place] [address] Performed By: #### A LLBG ####[facility] LABCLIA [id number] [place] [address] [place] Oxyhemoglobin (BldA) [Mass fraction] 96 % Normal 95-98 [facility] Comment on above: Order Comment: Speci men Type: ARTERIAL BLOOD SPECIMENOrdering Facility: [facility] Address: [address] [place], [place] [address] Performed By: #### A LLBG ####[facility] LABCLIA [id number] [place] [address] [place] pH (Bld) 7.36 [pH] Normal 7.35-7.45 [facility] Comment on above: Order Comment: Speci men Type: ARTERIAL BLOOD SPECIMENOrdering Facility: [facility] Address: [address] [place] [address] Performed By: #### A LLBG ####[facility] LABCLIA [id number] [place] [address] [place] pH adjusted to patient's actual temperature (Bld) 7.35 Normal 7.35-7.45 [facility] Comment on above: Order Comment: Speci men Type: ARTERIAL BLOOD SPECIMENOrdering Facility: [facility] Address: [address] [place] [address] Performed By: #### A LLBG ####[facility] LABCLIA [id number] [place] [address] [place] PO2 / FIO2 RATIO 253 mmHg Low >[address] [facility] Comment on above: Order Comment: Speci men Type: ARTERIAL BLOOD SPECIMENOrdering Facility: [facility] Address: [address] [place] [address] Performed By: #### A LLBG ####[facility] LABCLIA [id number] [place] [address] [place] Potassium [Moles/Vol] 3.7 mmol/L Normal 3.5-5.[address] [facility] Comment on above: Order Comment: Speci men Type: ARTERIAL BLOOD SPECIMENOrdering Facility: [facility] Address: [address] [place] [address] Performed By: #### A LLBG ####[facility] LABCLIA [id number] [place] [address] [place] Sodium [Moles/Vol] 137 mmol/L Normal 136-144 [facility] Comment on above: Order Comment: Speci men Type: ARTERIAL BLOOD SPECIMENOrdering Facility: [facility] Address: [address] [place] [address] Performed By: #### A LLBG ####[facility] LABIA [id number] [place] [address] [place] Base deficit (BldA) [Moles/Vol] -1 mmol/L Normal -2-0 [facility] Comment on above: Order Comment: Speci men Type: ARTERIAL BLOOD SPECIMENOrdering Facility: [facility] Address: [address] [place] [address] Performed By: #### A LLBG ####[facility] LABIA [id number] [place] [address] [place] Calcium.ionized (Bld) [Mass/Vol] 1.18 mmol/L Normal 1.08-1.30 [facility] Comment on above: Order Comment: Speci men Type: ARTERIAL BLOOD SPECIMENOrdering Facility: [facility] Address: [address] [place] [address] Performed By: #### A LLBG ####[facility] LABIA [id number] [place] [address] [place] Calcium.ionized adjusted to pH 7.4 (BldA) [Moles/Vol] 1.18 mmol/L Normal 1.08-1.30 [facility] Comment on above: Order Comment: Speci men Type: ARTERIAL BLOOD SPECIMENOrdering Facility: [facility] Address: [address] [place] [address] Performed By: #### A LLBG ####[facility] LABCLIA [id number] [place] [address] [place] Carboxyhemoglobin (BldA) [Mass fraction] 1.2 % Normal 0.0-2.0 [facility] Comment on above: Order Comment: Speci men Type: ARTERIAL BLOOD SPECIMENOrdering Facility: [facility] Address: [address] [place] [address] Result Comment: Carb oxyhemoglobin Reference Range for Smokers: 2.0-8.0% Performed By: #### A LLBG ####[facility] LABCLIA [id number] [address] [place] CO2 (Bld) [Partial pressure] 37 mm Hg Normal 36-46 [facility] Comment on above: Order Comment: Speci men Type: ARTERIAL BLOOD SPECIMENOrdering Facility: [facility] Address: [address] [place] [address] Performed By: #### A LLBG ####[facility] LABCLIA [id number] [address] [place] CO2 adjusted to patient's actual temperature (Bld) [Partial pressure] 39 mmHg Normal 36-46 [facility] Comment on above: Order Comment: Speci men Type: ARTERIAL BLOOD SPECIMENOrdering Facility: [facility] Address: [address] [place] [address] Performed By: #### A LLBG ####[facility] LABCLIA [id number] [place] [address] [place] Glucose [Mass/Vol] 77 mg/dL Normal 60-105 [facility] Comment on above: Order Comment: Speci men Type: ARTERIAL BLOOD SPECIMENOrdering Facility: [facility] Address: [address] [place] [address] Performed By: #### A LLBG ####[facility] LABCLIA [id number] [place] [address] [place] Hematocrit (Bld) [Volume fraction] 27.7 % Low 36.0-46.0 [facility] Comment on above: Order Comment: Speci men Type: ARTERIAL BLOOD SPECIMENOrdering Facility: [facility] Address: [address] [place] [address] Performed By: #### A LLBG ####[facility] LABIA [id number] [place] [address] [place] Hemoglobin (Bld) [Mass/Vol] 8.9 g/dL Low 11.5-15.5 [facility] Comment on above: Order Comment: Speci men Type: ARTERIAL BLOOD SPECIMENOrdering Facility: [facility] Address: [address] [place] [address] Performed By: #### A LLBG ####[facility] LABIA [id number] [place] [address] [place] Lactate [Moles/Vol] 1.2 mmol/L Normal 0.5-2.2 [facility] Comment on above: Order Comment: Speci men Type: ARTERIAL BLOOD SPECIMENOrdering Facility: [facility] Address: [address] [place] [address] Performed By: #### A LLBG ####[facility] LABIA [id number] [place] [address] [place] Methemoglobin (Bld) [Mass fraction] 0.9 % Normal 0.0-1.5 [facility] Comment on above: Order Comment: Speci men Type: ARTERIAL BLOOD SPECIMENOrdering Facility: [facility] Address: [address] [place] [address] Performed By: #### A LLBG ####[facility] LABIA [id number] [place] [address] [place] Oxygen (Bld) [Partial pressure] 131 mm Hg High 85-95 [facility] Comment on above: Order Comment: Speci men Type: ARTERIAL BLOOD SPECIMENOrdering Facility: [facility] Address: [address] [place] [address] Performed By: #### A LLBG ####[facility] LABCLIA [id number] [place] [address] [place] Oxygen adjusted to patient's actual temperature (Bld) [Partial pressure] 135 mmHg High 85-95 [facility] Comment on above: Order Comment: Speci men Type: ARTERIAL BLOOD SPECIMENOrdering Facility: [facility] Address: [address] [place] [address] Performed By: #### A LLBG ####[facility] LABCLIA [id number] [place] [address] [place] Oxyhemoglobin (BldA) [Mass fraction] 97 % Normal 95-98 [facility] Comment on above: Order Comment: Speci men Type: ARTERIAL BLOOD SPECIMENOrdering Facility: [facility] Address: [address] [place] [address] Performed By: #### A LLBG ####[facility] LABCLIA [id number] [place] [address] [place] pH (Bld) 7.40 [pH] Normal 7.35-7.45 [facility] Comment on above: Order Comment: Speci men Type: ARTERIAL BLOOD SPECIMENOrdering Facility: [facility] Address: [address] [place] [address] Performed By: #### A LLBG ####[facility] LABCLIA [id number] [place] [address] [place] pH adjusted to patient's actual temperature (Bld) 7.39 Normal 7.35-7.45 [facility] Comment on above: Order Comment: Speci men Type: ARTERIAL BLOOD SPECIMENOrdering Facility: [facility] Address: [address] [place] [address] Performed By: #### A LLBG ####[facility] LABCLIA [id number] [place] [id number] [place] PO2 / FIO2 RATIO 328 mmHg Normal >[address] [facility] [place] [facility] Comment on above: Order Comment: Speci men Type: ARTERIAL BLOOD SPECIMENOrdering Facility: [facility] Address: [address] [place] [address] Performed By: #### A LLBG ####[facility] LABCLIA [id number] [place] [address] [place] Potassium [Moles/Vol] 3.8 mmol/L Normal 3.5-5.[address] [facility] Comment on above: Order Comment: Speci men Type: ARTERIAL BLOOD SPECIMENOrdering Facility: [facility] Address: [address] [place] [address] Performed By: #### A LLBG ####[facility] LABCLIA [id number] [place] [address] [place] Sodium [Moles/Vol] 136 mmol/L Normal 136-144 [facility] Comment on above: Order Comment: Speci men Type: ARTERIAL BLOOD SPECIMENOrdering Facility: [facility] Address: [address] [place] [address] Performed By: #### A LLBG ####[facility] LABCLIA [id number] [place] [address] [place] Base deficit (BldA) [Moles/Vol] -3 mmol/L Low -2-0 [facility] Comment on above: Order Comment: Speci men Type: ARTERIAL BLOOD SPECIMENOrdering Facility: [facility] Address: [address] [place] [address] Performed By: #### A LLBG ####[facility] LABCLIA [id number] [place] [address] [place] Body temperature 99.68 [degF] Normal [facility] Comment on above: Order Comment: Speci men Type: ARTERIAL BLOOD SPECIMENOrdering Facility: [facility] Address: [address] [place] [address] Performed By: #### A LLBG ####[facility] LABCLIA [id number] [place] [address] [place] Order Comment: Speci men Type: VENOUS BLOOD SPECIMENOrdering Facility: [facility] Address: [address] [place] [address] Performed By: #### 2 4344-4 ####[facility] [id number] [place] [address] [place] Calcium.ionized (Bld) [Mass/Vol] 1.22 mmol/L Normal 1.08-1.30 [facility] Comment on above: Order Comment: Speci men Type: ARTERIAL BLOOD SPECIMENOrdering Facility: [facility] Address: [address] [place] [address] Performed By: #### A LLBG ####[facility] [id number] [place] [address] [place] Calcium.ionized adjusted to pH 7.4 (BldA) [Moles/Vol] 1.19 mmol/L Normal 1.08-1.30 [facility] Comment on above: Order Comment: Speci men Type: ARTERIAL BLOOD SPECIMENOrdering Facility: [facility] Address: [address] [place] [address] Performed By: #### A LLBG ####[facility] [id number] [place] [address] [place] Carboxyhemoglobin (BldA) [Mass fraction] 1.8 % Normal 0.0-2.0 [facility] Comment on above: Order Comment: Speci men Type: ARTERIAL BLOOD SPECIMENOrdering Facility: [facility] Address: [address] [place] [address] Result Comment: Carb oxyhemoglobin Reference Range for Smokers: 2.0-8.0% Performed By: #### A LLBG ####[facility] [id number] [place] [address] [place] CO2 (Bld) [Partial pressure] 39 mm Hg Normal 36-46 [facility] Comment on above: Order Comment: Speci men Type: ARTERIAL BLOOD SPECIMENOrdering Facility: [facility] Address: [address] [place] [address] Performed By: #### A LLBG ####[facility] LABCLIA [id number] [place] [address] [place] CO2 adjusted to patient's actual temperature (Bld) [Partial pressure] 40 mmHg Normal 36-46 [facility] Comment on above: Order Comment: Speci men Type: ARTERIAL BLOOD SPECIMENOrdering Facility: [facility] Address: [address] [place] [address] Performed By: #### A LLBG ####[facility] LABCLIA [id number] [place] [address] [place] FIO2 40 % Normal [facility] Comment on above: Order Comment: Speci men Type: ARTERIAL BLOOD SPECIMENOrdering Facility: [facility] Address: [address] [place] [address] Performed By: #### A LLBG ####[facility] LABCLIA [id number] [place] [address] [place] Order Comment: Speci men Type: VENOUS BLOOD SPECIMENOrdering Facility: [facility] Address: [address] [place] [address] Performed By: #### 2 4344-4 ####[facility] LABCLIA [id number] [place] [address] [place] Glucose [Mass/Vol] 110 mg/dL High 60-105 [facility] Comment on above: Order Comment: Speci men Type: ARTERIAL BLOOD SPECIMENOrdering Facility: [facility] Address: [address] [place] [address] Performed By: #### A LLBG ####[facility] LABCLIA [id number] [place] [address] [place] HCO3 (Bld) [Moles/Vol] 21 mmol/L Low 22-26 [facility] Comment on above: Order Comment: Speci men Type: ARTERIAL BLOOD SPECIMENOrdering Facility: [facility] Address: [address] [place] [address] Performed By: #### A LLBG ####[facility] LABCLIA [id number] [place] [address] [place] Hematocrit (Bld) [Volume fraction] 27.4 % Low 36.0-46.0 [facility] Comment on above: Order Comment: Speci men Type: ARTERIAL BLOOD SPECIMENOrdering Facility: [facility] Address: [address] [place] [address] Performed By: #### A LLBG ####[facility] LABIA [id number] [place] [address] [place] Hemoglobin (Bld) [Mass/Vol] 8.8 g/dL Low 11.5-15.5 [facility] Comment on above: Order Comment: Speci men Type: ARTERIAL BLOOD SPECIMENOrdering Facility: [facility] Address: [address] [place] [address] Performed By: #### A LLBG ####[facility] LABIA [id number] [place] [address] [place] Lactate [Moles/Vol] 1.4 mmol/L Normal 0.5-2.2 [facility] Comment on above: Order Comment: Speci men Type: ARTERIAL BLOOD SPECIMENOrdering Facility: [facility] Address: [address] [place] [address] Performed By: #### A LLBG ####[facility] LABIA [id number] [place] [address] [place] LITERS 50 Liters/min Normal [facility] Comment on above: Order Comment: Speci men Type: ARTERIAL BLOOD SPECIMENOrdering Facility: [facility] Address: [address] [place] [address] Performed By: #### A LLBG ####[facility] LABCLIA [id number] [address] [place] Order Comment: Speci men Type: VENOUS BLOOD SPECIMENOrdering Facility: [facility] Address: [address] [place] [address] Performed By: #### 2 4344-4 ####[facility] LABCLIA [id number] [place] [address] [place] Methemoglobin (Bld) [Mass fraction] 0.7 % Normal 0.0-1.5 [facility] Comment on above: Order Comment: Speci men Type: ARTERIAL BLOOD SPECIMENOrdering Facility: [facility] Address: [address] [place] [address] Performed By: #### A LLBG ####[facility] LABIA [id number] [place] [address] [place] O2 THERAPY Hi-Flow Nasal Cannula-Heated Normal [facility] Comment on above: Order Comment: Speci men Type: ARTERIAL BLOOD SPECIMENOrdering Facility: [facility] Address: [address] [place] [address] Performed By: #### A LLBG ####[facility] LABCLIA [id number] [place] [address] [place] Order Comment: Speci men Type: VENOUS BLOOD SPECIMENOrdering Facility: [facility] Address: [address] [place] [address] Performed By: #### 2 4344-4 ####[facility] LABCLIA [id number] [place] [address] [place] Oxygen (Bld) [Partial pressure] 95 mm Hg Normal 85-95 [facility] Comment on above: Order Comment: Speci men Type: ARTERIAL BLOOD SPECIMENOrdering Facility: [facility] Address: [address] [place] [address] Performed By: #### A LLBG ####[facility] LABCLIA [id number] [place] [address] [place] Oxygen adjusted to patient's actual temperature (Bld) [Partial pressure] 98 mmHg High 85-95 [facility] Comment on above: Order Comment: Speci men Type: ARTERIAL BLOOD SPECIMENOrdering Facility: [facility] Address: [address] [place] [address] Performed By: #### A LLBG ####[facility] LABCLIA [id number] [place] [address] [place] Oxyhemoglobin (BldA) [Mass fraction] 95 % Normal 95-98 [facility] Comment on above: Order Comment: Speci men Type: ARTERIAL BLOOD SPECIMENOrdering Facility: [facility] Address: [address] [place] [address] Performed By: #### A LLBG ####[facility] LABCLIA [id number] [place] [address] [place] pH (Bld) 7.36 [pH] Normal 7.35-7.45 [facility] Comment on above: Order Comment: Speci men Type: ARTERIAL BLOOD SPECIMENOrdering Facility: [facility] Address: [address] [place] [address] Performed By: #### A LLBG ####[facility] LABCLIA [id number] [place] [address] [place] pH adjusted to patient's actual temperature (Bld) 7.35 Normal 7.35-7.45 [facility] Comment on above: Order Comment: Speci men Type: ARTERIAL BLOOD SPECIMENOrdering Facility: [facility] Address: [address] [place] [address] Performed By: #### A LLBG ####[facility] LABCLIA [id number] [place] [address] [place] PO2 / FIO2 RATIO 238 mmHg Low >[address] [facility] [place] Comment on above: Order Comment: Speci men Type: ARTERIAL BLOOD SPECIMENOrdering Facility: [facility] Address: [address] [place] [address] Performed By: #### A LLBG ####[facility] LABCLIA [id number] [place] [address] [place] Potassium [Moles/Vol] 3.8 mmol/L Normal 3.5-5.[address] [facility] Comment on above: Order Comment: Speci men Type: ARTERIAL BLOOD SPECIMENOrdering Facility: [facility] Address: [address] [place] [address] Performed By: #### A LLBG ####[facility] LABCLIA [id number] [place] [address] [place] Sodium [Moles/Vol] 138 mmol/L Normal 136-144 [facility] Comment on above: Order Comment: Speci men Type: ARTERIAL BLOOD SPECIMENOrdering Facility: [facility] Address: [address] [place] [address] Performed By: #### A LLBG ####[facility] LABCLIA [id number] [place] [address] [place] Base deficit (BldA) [Moles/Vol] -1 mmol/L Normal -2-0 [facility] Comment on above: Order Comment: Speci men Type: ARTERIAL BLOOD SPECIMENOrdering Facility: [facility] Address: [address] [place] [address] Performed By: #### A LLBG ####[facility] LABCLIA [id number] [place] [address] [place] Body temperature 99.68 [degF] Normal [facility] Comment on above: Order Comment: Speci men Type: ARTERIAL BLOOD SPECIMENOrdering Facility: [facility] Address: [address] [place] [address] Performed By: #### A LLBG ####[facility] LABCLIA [id number] [place] [id number] [place] Order Comment: Speci men Type: VENOUS BLOOD SPECIMENOrdering Facility: [facility] Address: [address] [place] [address] Performed By: #### 2 4344-4 ####[facility] LABCLIA [id number] [place] [address] [place] Calcium.ionized (Bld) [Mass/Vol] 1.16 mmol/L Normal 1.08-1.30 [facility] Comment on above: Order Comment: Speci men Type: ARTERIAL BLOOD SPECIMENOrdering Facility: [facility] Address: [address] [place] [address] Performed By: #### A LLBG ####[facility] LABCLIA [id number] [place] [address] [place] Calcium.ionized adjusted to pH 7.4 (BldA) [Moles/Vol] 1.15 mmol/L Normal 1.08-1.30 [facility] Comment on above: Order Comment: Speci men Type: ARTERIAL BLOOD SPECIMENOrdering Facility: [facility] Address: [address] [place] [address] Performed By: #### A LLBG ####[facility] LABCLIA [id number] [place] [address] [place] Carboxyhemoglobin (BldA) [Mass fraction] 1.8 % Normal 0.0-2.0 [facility] Comment on above: Order Comment: Speci men Type: ARTERIAL BLOOD SPECIMENOrdering Facility: [facility] Address: [address] [place] [address] Result Comment: Carb oxyhemoglobin Reference Range for Smokers: 2.0-8.0% Performed By: #### A LLBG ####[facility] LABCLIA [id number] [place] [address] [place] CO2 (Bld) [Partial pressure] 41 mm Hg Normal 36-46 [facility] Comment on above: Order Comment: Speci men Type: ARTERIAL BLOOD SPECIMENOrdering Facility: [facility] Address: [address] [place] [address] Performed By: #### A LLBG ####[facility] LABCLIA [id number] [place] [address] [place] CO2 adjusted to patient's actual temperature (Bld) [Partial pressure] 43 mmHg Normal 36-46 [facility] Comment on above: Order Comment: Speci men Type: ARTERIAL BLOOD SPECIMENOrdering Facility: [facility] Address: [address] [place] [address] Performed By: #### A LLBG ####[facility] LABCLIA [id number] [place] [address] [place] FIO2 40 % Normal [facility] Comment on above: Order Comment: Speci men Type: ARTERIAL BLOOD SPECIMENOrdering Facility: [facility] Address: [address] [place] [address] Performed By: #### A LLBG ####[facility] LABCLIA [id number] [place] [address] [place] Order Comment: Speci men Type: VENOUS BLOOD SPECIMENOrdering Facility: [facility] Address: [address] [place] [address] Performed By: #### 2 4344-4 ####[facility] LABCLIA [id number] [place] [address] [place] Glucose [Mass/Vol] 157 mg/dL High 60-105 [facility] Comment on above: Order Comment: Speci men Type: ARTERIAL BLOOD SPECIMENOrdering Facility: [facility] Address: [address] [place] [address] Performed By: #### A LLBG ####[facility] LABCLIA [id number] [place] [id number] [place] HCO3 (Bld) [Moles/Vol] 24 mmol/L Normal 22-26 [facility] Comment on above: Order Comment: Speci men Type: ARTERIAL BLOOD SPECIMENOrdering Facility: [facility] Address: [address] [place] [address] Performed By: #### A LLBG ####[facility] LABIA [id number] [place] [address] [place] Hematocrit (Bld) [Volume fraction] 27.5 % Low 36.0-46.0 [facility] Comment on above: Order Comment: Speci men Type: ARTERIAL BLOOD SPECIMENOrdering Facility: [facility] Address: [address] [place] [address] Performed By: #### A LLBG ####[facility] LABIA [id number] [place] [address] [place] Hemoglobin (Bld) [Mass/Vol] 8.8 g/dL Low 11.5-15.5 [facility] Comment on above: Order Comment: Speci men Type: ARTERIAL BLOOD SPECIMENOrdering Facility: [facility] Address: [address] [place] [address] Performed By: #### A LLBG ####[facility] LABIA [id number] [place] [address] [place] Lactate [Moles/Vol] 1.3 mmol/L Normal 0.5-2.2 [facility] Comment on above: Order Comment: Speci men Type: ARTERIAL BLOOD SPECIMENOrdering Facility: [facility] Address: [address] [place] [address] Performed By: #### A LLBG ####[facility] LABIA [id number] [place] [address] [place] Methemoglobin (Bld) [Mass fraction] 0.7 % Normal 0.0-1.5 [facility] Comment on above: Order Comment: Speci men Type: ARTERIAL BLOOD SPECIMENOrdering Facility: [facility] Address: [address] [place] [address] Performed By: #### A LLBG ####[facility] LABCLIA [id number] [address] [address] [place] O2 THERAPY Positive Normal [facility] Comment on above: Order Comment: Speci men Type: ARTERIAL BLOOD SPECIMENOrdering Facility: [facility] Address: [address] [place] [address] Performed By: #### A LLBG ####[facility] LABCLIA [id number] [address] [address] [place] Order Comment: Speci men Type: VENOUS BLOOD SPECIMENOrdering Facility: [facility] Address: [address] [place] [id number] Performed By: #### 2 4344-4 ####[facility] LABCLIA [id number] [address] [address] [place] Oxygen (Bld) [Partial pressure] 114 mm Hg High 85-95 [facility] Comment on above: Order Comment: Speci men Type: ARTERIAL BLOOD SPECIMENOrdering Facility: [facility] Address: [address] [place] [address] Performed By: #### A LLBG ####[facility] LABCLIA [id number] [address] [address] [place] Oxygen adjusted to patient's actual temperature (Bld) [Partial pressure] 117 mmHg High 85-95 [facility] Comment on above: Order Comment: Speci men Type: ARTERIAL BLOOD SPECIMENOrdering Facility: [facility] Address: [address] [place] [address] Performed By: #### A LLBG ####[facility] LABCLIA [id number] [address] [address] [place] Oxyhemoglobin (BldA) [Mass fraction] 96 % Normal 95-98 [facility] Comment on above: Order Comment: Speci men Type: ARTERIAL BLOOD SPECIMENOrdering Facility: [facility] Address: [address] [place] [address] Performed By: #### A LLBG ####[facility] LABCLIA [id number] [place] [address] [place] pH (Bld) 7.37 [pH] Normal 7.35-7.45 [facility] Comment on above: Order Comment: Speci men Type: ARTERIAL BLOOD SPECIMENOrdering Facility: [facility] Address: [address] [place] [address] Performed By: #### A LLBG ####[facility] LABCLIA [id number] [place] [address] [place] pH adjusted to patient's actual temperature (Bld) 7.36 Normal 7.35-7.45 [facility] Comment on above: Order Comment: Speci men Type: ARTERIAL BLOOD SPECIMENOrdering Facility: [facility] Address: [address] [place] [address] Performed By: #### A LLBG ####[facility] LABCLIA [id number] [place] [address] [place] PO2 / FIO2 RATIO 285 mmHg Low >[address] [facility] Comment on above: Order Comment: Speci men Type: ARTERIAL BLOOD SPECIMENOrdering Facility: [facility] Address: [address] [place] [address] Performed By: #### A LLBG ####[facility] LABIA [id number] [place] [address] [place] Potassium [Moles/Vol] 3.6 mmol/L Normal 3.5-5.[address] [facility] Comment on above: Order Comment: Speci men Type: ARTERIAL BLOOD SPECIMENOrdering Facility: [facility] Address: [address] [place] [address] Performed By: #### A LLBG ####[facility] LABCLIA [id number] [place] [address] [place] Sodium [Moles/Vol] 137 mmol/L Normal 136-144 [facility] Comment on above: Order Comment: Speci men Type: ARTERIAL BLOOD SPECIMENOrdering Facility: [facility] Address: [address] [place] [address] Performed By: #### A LLBG ####[facility] LABCLIA [id number] [place] [address] [place] Base deficit (BldA) [Moles/Vol] -2 mmol/L Normal -2-0 [facility] Comment on above: Order Comment: Speci men Type: ARTERIAL BLOOD SPECIMENOrdering Facility: [facility] Address: [address] [place] [address] Performed By: #### A LLBG ####[facility] LABCLIA [id number] [place] [address] [place] Body temperature 99.86 [degF] Normal [facility] Comment on above: Order Comment: Speci men Type: ARTERIAL BLOOD SPECIMENOrdering Facility: [facility] Address: [address] [place] [address] Performed By: #### A LLBG ####[facility] LABCLIA [id number] [place] [address] [place] Calcium.ionized (Bld) [Mass/Vol] 1.16 mmol/L Normal 1.08-1.30 [facility] Comment on above: Order Comment: Speci men Type: ARTERIAL BLOOD SPECIMENOrdering Facility: [facility] Address: [address] [place] [address] Performed By: #### A LLBG ####[facility] LABCLIA [id number] [place] [address] [place] Calcium.ionized adjusted to pH 7.4 (BldA) [Moles/Vol] 1.14 mmol/L Normal 1.08-1.30 [facility] Comment on above: Order Comment: Speci men Type: ARTERIAL BLOOD SPECIMENOrdering Facility: [facility] Address: [address] [place] [address] Performed By: #### A LLBG ####[facility] LABCLIA [id number] [place] [address] [place] Carboxyhemoglobin (BldA) [Mass fraction] 1.7 % Normal 0.0-2.0 [facility] Comment on above: Order Comment: Speci men Type: ARTERIAL BLOOD SPECIMENOrdering Facility: [facility] Address: [address] [place] [address] Result Comment: Carb oxyhemoglobin Reference Range for Smokers: 2.0-8.0% Performed By: #### A LLBG ####[facility] LABCLIA [id number] [place] [address] [place] CO2 (Bld) [Partial pressure] 40 mm Hg Normal 36-46 [facility] Comment on above: Order Comment: Speci men Type: ARTERIAL BLOOD SPECIMENOrdering Facility: [facility] Address: [address] [place] [address] Performed By: #### A LLBG ####[facility] LABCLIA [id number] [place] [address] [place] CO2 adjusted to patient's actual temperature (Bld) [Partial pressure] 42 mmHg Normal 36-46 [facility] Comment on above: Order Comment: Speci men Type: ARTERIAL BLOOD SPECIMENOrdering Facility: [facility] Address: [address] [place] [address] Performed By: #### A LLBG ####[facility] LABCLIA [id number] [place] [address] [place] Glucose [Mass/Vol] 203 mg/dL High 60-105 [facility] Comment on above: Order Comment: Speci men Type: ARTERIAL BLOOD SPECIMENOrdering Facility: [facility] Address: [address] [place] [address] Performed By: #### A LLBG ####[facility] LABCLIA [id number] [place] [address] [place] HCO3 (Bld) [Moles/Vol] 22 mmol/L Normal 22-26 [facility] Comment on above: Order Comment: Speci men Type: ARTERIAL BLOOD SPECIMENOrdering Facility: [facility] Address: [address] [place] [address] Performed By: #### A LLBG ####[facility] LABCLIA [id number] [place] [address] [place] Hematocrit (Bld) [Volume fraction] 27.8 % Low 36.0-46.0 [facility] Comment on above: Order Comment: Speci men Type: ARTERIAL BLOOD SPECIMENOrdering Facility: [facility] Address: [address] [place] [address] Performed By: #### A LLBG ####[facility] LABIA [id number] [place] [address] [place] Hemoglobin (Bld) [Mass/Vol] 9.0 g/dL Low 11.5-15.5 [facility] Comment on above: Order Comment: Speci men Type: ARTERIAL BLOOD SPECIMENOrdering Facility: [facility] Address: [address] [place] [address] Performed By: #### A LLBG ####[facility] LABCLIA [id number] [place] [address] [place] Lactate [Moles/Vol] 1.2 mmol/L Normal 0.5-2.2 [facility] Comment on above: Order Comment: Speci men Type: ARTERIAL BLOOD SPECIMENOrdering Facility: [facility] Address: [address] [place] [address] Performed By: #### A LLBG ####[facility] LABCLIA [id number] [place] [address] [place] Methemoglobin (Bld) [Mass fraction] 0.6 % Normal 0.0-1.5 [facility] Comment on above: Order Comment: Speci men Type: ARTERIAL BLOOD SPECIMENOrdering Facility: [facility] Address: [address] [place] [id number] Performed By: #### A LLBG ####[facility] LABCLIA [id number] [place] [id number] [place] O2 THERAPY Positive Normal [facility] Comment on above: Order Comment: Speci men Type: ARTERIAL BLOOD SPECIMENOrdering Facility: [facility] Address: [address] [place], [place] [id number] Performed By: #### A LLBG ####[facility] LABCLIA [id number] [place] [id number] [place] Oxygen (Bld) [Partial pressure] 98 mm Hg High 85-95 [facility] Comment on above: Order Comment: Speci men Type: ARTERIAL BLOOD SPECIMENOrdering Facility: [facility] Address: [address] [place] [address] Performed By: #### A LLBG ####[facility] LABCLIA [id number] [place] [address] [place] Oxygen adjusted to patient's actual temperature (Bld) [Partial pressure] 102 mmHg High 85-95 [facility] Comment on above: Order Comment: Speci men Type: ARTERIAL BLOOD SPECIMENOrdering Facility: [facility] Address: [address] [place], [place] [id number] Performed By: #### A LLBG ####[facility] LABCLIA [id number] [place] [id number] [place] Oxyhemoglobin (BldA) [Mass fraction] 96 % Normal 95-98 [facility] Comment on above: Order Comment: Speci men Type: ARTERIAL BLOOD SPECIMENOrdering Facility: [facility] Address: [address] [place], [place] [address] Performed By: #### A LLBG ####[facility] LABCLIA [id number] [place] [id number] [place] pH (Bld) 7.37 [pH] Normal 7.35-7.45 [facility] Comment on above: Order Comment: Speci men Type: ARTERIAL BLOOD SPECIMENOrdering Facility: [facility] Address: [address] [place] [address] Performed By: #### A LLBG ####[facility] LABIA [id number] [place] [address] [place] pH adjusted to patient's actual temperature (Bld) 7.36 Normal 7.35-7.45 [facility] Comment on above: Order Comment: Speci men Type: ARTERIAL BLOOD SPECIMENOrdering Facility: [facility] Address: [address] [place] [address] Performed By: #### A LLBG ####[facility] LABIA [id number] [place] [address] [place] Potassium [Moles/Vol] 3.8 mmol/L Normal 3.5-5.[address] [facility] Comment on above: Order Comment: Speci men Type: ARTERIAL BLOOD SPECIMENOrdering Facility: [facility] Address: [address] [place] [address] Performed By: #### A LLBG ####[facility] LABIA [id number] [place] [address] [place] Sodium [Moles/Vol] 137 mmol/L Normal 136-144 [facility] Comment on above: Order Comment: Speci men Type: ARTERIAL BLOOD SPECIMENOrdering Facility: [facility] Address: [address] [place] [address] Performed By: #### A LLBG ####[facility] LABIA [id number] [place] [address] [place] Base deficit (BldA) [Moles/Vol] -4 mmol/L Low -2-0 [facility] Comment on above: Order Comment: Speci men Type: ARTERIAL BLOOD SPECIMENOrdering Facility: [facility] Address: [address] [place], [place] [address] Performed By: #### A LLBG ####[facility] [id number] [place] [address] [place] Calcium.ionized (Bld) [Mass/Vol] 1.17 mmol/L Normal 1.08-1.30 [facility] Comment on above: Order Comment: Speci men Type: ARTERIAL BLOOD SPECIMENOrdering Facility: [facility] Address: [address] [place] [address] Performed By: #### A LLBG ####[facility] [id number] [place] [address] [place] Calcium.ionized adjusted to pH 7.4 (BldA) [Moles/Vol] 1.13 mmol/L Normal 1.08-1.30 [facility] Comment on above: Order Comment: Speci men Type: ARTERIAL BLOOD SPECIMENOrdering Facility: [facility] Address: [address] [place] [address] Performed By: #### A LLBG ####[facility] [id number] [place] [address] [place] Carboxyhemoglobin (BldA) [Mass fraction] 1.5 % Normal 0.0-2.0 [facility] Comment on above: Order Comment: Speci men Type: ARTERIAL BLOOD SPECIMENOrdering Facility: [facility] Address: [address] [place] [address] Result Comment: Carb oxyhemoglobin Reference Range for Smokers: 2.0-8.0% Performed By: #### A LLBG ####[facility] [id number] [place] [address] [place] CO2 (Bld) [Partial pressure] 41 mm Hg Normal 36-46 [facility] Comment on above: Order Comment: Speci men Type: ARTERIAL BLOOD SPECIMENOrdering Facility: [facility] Address: [address] [place] [address] Performed By: #### A LLBG ####[facility] LABCLIA [id number] [place] [address] [place] CO2 adjusted to patient's actual temperature (Bld) [Partial pressure] 42 mmHg Normal 36-46 [facility] Comment on above: Order Comment: Speci men Type: ARTERIAL BLOOD SPECIMENOrdering Facility: [facility] Address: [address] [place] [address] Performed By: #### A LLBG ####[facility] LABCLIA [id number] [place] [address] [place] Glucose [Mass/Vol] 221 mg/dL High 60-105 [facility] Comment on above: Order Comment: Speci men Type: ARTERIAL BLOOD SPECIMENOrdering Facility: [facility] Address: [address] [place] [address] Performed By: #### A LLBG ####[facility] LABCLIA [id number] [place] [address] [place] HCO3 (Bld) [Moles/Vol] 21 mmol/L Low 22-26 [facility] Comment on above: Order Comment: Speci men Type: ARTERIAL BLOOD SPECIMENOrdering Facility: [facility] Address: [address] [place] [address] Performed By: #### A LLBG ####[facility] LABCLIA [id number] [place] [address] [place] Hematocrit (Bld) [Volume fraction] 27.0 % Low 36.0-46.0 [facility] Comment on above: Order Comment: Speci men Type: ARTERIAL BLOOD SPECIMENOrdering Facility: [facility] Address: [address] [place] [address] Performed By: #### A LLBG ####[facility] LABCLIA [id number] [place] [address] [place] Lactate [Moles/Vol] 1.2 mmol/L Normal 0.5-2.2 [facility] Comment on above: Order Comment: Speci men Type: ARTERIAL BLOOD SPECIMENOrdering Facility: [facility] Address: [address] [place] [address] Performed By: #### A LLBG ####[facility] LABCLIA [id number] [address] [address] [place] Methemoglobin (Bld) [Mass fraction] 0.6 % Normal 0.0-1.5 [facility] Comment on above: Order Comment: Speci men Type: ARTERIAL BLOOD SPECIMENOrdering Facility: [facility] Address: [address] [place] [address] Performed By: #### A LLBG ####[facility] LABCLIA [id number] [place] [address] [place] Oxygen (Bld) [Partial pressure] 126 mm Hg High 85-95 [facility] Comment on above: Order Comment: Speci men Type: ARTERIAL BLOOD SPECIMENOrdering Facility: [facility] Address: [address] [place] [address] Performed By: #### A LLBG ####[facility] LABCLIA [id number] [place] [address] [place] Oxygen adjusted to patient's actual temperature (Bld) [Partial pressure] 130 mmHg High 85-95 [facility] Comment on above: Order Comment: Speci men Type: ARTERIAL BLOOD SPECIMENOrdering Facility: [facility] Address: [address] [place] [address] Performed By: #### A LLBG ####[facility] LABCLIA [id number] [place] [id number] [place] Oxyhemoglobin (BldA) [Mass fraction] 97 % Normal 95-98 [facility] Comment on above: Order Comment: Speci men Type: ARTERIAL BLOOD SPECIMENOrdering Facility: [facility] Address: [address] [place] [id number] Performed By: #### A LLBG ####[facility] LABCLIA [id number] [place] [address] [place] pH (Bld) 7.33 [pH] Low 7.35-7.45 [facility] Comment on above: Order Comment: Speci men Type: ARTERIAL BLOOD SPECIMENOrdering Facility: [facility] Address: [address] [place] [address] Performed By: #### A LLBG ####[facility] LABCLIA [id number] [place] [address] [place] pH adjusted to patient's actual temperature (Bld) 7.32 Low 7.35-7.45 [facility] Comment on above: Order Comment: Speci men Type: ARTERIAL BLOOD SPECIMENOrdering Facility: [facility] Address: [address] [place] [address] Performed By: #### A LLBG ####[facility] LABIA [id number] [place] [address] [place] Potassium [Moles/Vol] 4.1 mmol/L Normal 3.5-5.[address] [facility] Comment on above: Order Comment: Speci men Type: ARTERIAL BLOOD SPECIMENOrdering Facility: [facility] Address: [address] [place] [address] Performed By: #### A LLBG ####[facility] LABIA [id number] [place] [address] [place] Sodium [Moles/Vol] 138 mmol/L Normal 136-144 [facility] Comment on above: Order Comment: Speci men Type: ARTERIAL BLOOD SPECIMENOrdering Facility: [facility] Address: [address] [place] [address] Performed By: #### A LLBG ####[facility] LABCLIA [id number] [place] [address] [place] Base deficit (BldA) [Moles/Vol] -4 mmol/L Low -2-0 [facility] Comment on above: Order Comment: Speci men Type: ARTERIAL BLOOD SPECIMENOrdering Facility: [facility] Address: [address] [place] [address] Performed By: #### A LLBG ####[facility] [id number] [place] [address] [place] Body temperature 99.68 [degF] Normal [facility] Comment on above: Order Comment: Speci men Type: ARTERIAL BLOOD SPECIMENOrdering Facility: [facility] Address: [address] [place] [address] Performed By: #### A LLBG ####[facility] [id number] [place] [address] [place] Calcium.ionized (Bld) [Mass/Vol] 1.17 mmol/L Normal 1.08-1.30 [facility] Comment on above: Order Comment: Speci men Type: ARTERIAL BLOOD SPECIMENOrdering Facility: [facility] Address: [address] [place] [address] Performed By: #### A LLBG ####[facility] [id number] [place] [address] [place] Calcium.ionized adjusted to pH 7.4 (BldA) [Moles/Vol] 1.14 mmol/L Normal 1.08-1.30 [facility] Comment on above: Order Comment: Speci men Type: ARTERIAL BLOOD SPECIMENOrdering Facility: [facility] Address: [address] [place] [address] Performed By: #### A LLBG ####[facility] [id number] [place] [address] [place] Carboxyhemoglobin (BldA) [Mass fraction] 1.4 % Normal 0.0-2.0 [facility] Comment on above: Order Comment: Speci men Type: ARTERIAL BLOOD SPECIMENOrdering Facility: [facility] Address: [address] [place] [address] Result Comment: Carb oxyhemoglobin Reference Range for Smokers: 2.0-8.0% Performed By: #### A LLBG ####[facility] LABCLIA [id number] [place] [address] [place] CO2 (Bld) [Partial pressure] 40 mm Hg Normal 36-46 [facility] Comment on above: Order Comment: Speci men Type: ARTERIAL BLOOD SPECIMENOrdering Facility: [facility] Address: [address] [place] [address] Performed By: #### A LLBG ####[facility] LABCLIA [id number] [address] [place] CO2 adjusted to patient's actual temperature (Bld) [Partial pressure] 42 mmHg Normal 36-46 [facility] Comment on above: Order Comment: Speci men Type: ARTERIAL BLOOD SPECIMENOrdering Facility: [facility] Address: [address] [place] [address] Performed By: #### A LLBG ####[facility] LABCLIA [id number] [place] [address] [place] Glucose [Mass/Vol] 175 mg/dL High 60-105 [facility] Comment on above: Order Comment: Speci men Type: ARTERIAL BLOOD SPECIMENOrdering Facility: [facility] Address: [address] [place] [address] Performed By: #### A LLBG ####[facility] LABCLIA [id number] [place] [address] [place] HCO3 (Bld) [Moles/Vol] 21 mmol/L Low 22-26 [facility] Comment on above: Order Comment: Speci men Type: ARTERIAL BLOOD SPECIMENOrdering Facility: [facility] Address: [address] [place] [address] Performed By: #### A LLBG ####[facility] LABCLIA [id number] [place] [address] [place] Hematocrit (Bld) [Volume fraction] 28.2 % Low 36.0-46.0 [facility] Comment on above: Order Comment: Speci men Type: ARTERIAL BLOOD SPECIMENOrdering Facility: [facility] Address: [address] [place] [address] Performed By: #### A LLBG ####[facility] LABCLIA [id number] [place] [address] [place] Hemoglobin (Bld) [Mass/Vol] 9.1 g/dL Low 11.5-15.5 [facility] Comment on above: Order Comment: Speci men Type: ARTERIAL BLOOD SPECIMENOrdering Facility: [facility] Address: [address] [place] [address] Performed By: #### A LLBG ####[facility] LABCLIA [id number] [place] [address] [place] Lactate [Moles/Vol] 1.2 mmol/L Normal 0.5-2.2 [facility] Comment on above: Order Comment: Speci men Type: ARTERIAL BLOOD SPECIMENOrdering Facility: [facility] Address: [address] [place] [address] Performed By: #### A LLBG ####[facility] LABCLIA [id number] [place] [address] [place] Methemoglobin (Bld) [Mass fraction] 0.4 % Normal 0.0-1.5 [facility] Comment on above: Order Comment: Speci men Type: ARTERIAL BLOOD SPECIMENOrdering Facility: [facility] Address: [address] [place] [address] Performed By: #### A LLBG ####[facility] LABCLIA [id number] [place] [address] [place] O2 THERAPY Positive Normal [facility] Comment on above: Order Comment: Speci men Type: ARTERIAL BLOOD SPECIMENOrdering Facility: [facility] Address: [address] [place] [address] Performed By: #### A LLBG ####[facility] LABCLIA [id number] [place] [address] [place] Oxygen (Bld) [Partial pressure] 75 mm Hg Low 85-95 [facility] Comment on above: Order Comment: Speci men Type: ARTERIAL BLOOD SPECIMENOrdering Facility: [facility] Address: [address] [place] [address] Performed By: #### A LLBG ####[facility] LABCLIA [id number] [place] [address] [place] Oxygen adjusted to patient's actual temperature (Bld) [Partial pressure] 78 mmHg Low 85-95 [facility] Comment on above: Order Comment: Speci men Type: ARTERIAL BLOOD SPECIMENOrdering Facility: [facility] Address: [address] [place] [address] Performed By: #### A LLBG ####[facility] LABCLIA [id number] [place] [address] [place] Oxyhemoglobin (BldA) [Mass fraction] 93 % Low 95-98 [facility] Comment on above: Order Comment: Speci men Type: ARTERIAL BLOOD SPECIMENOrdering Facility: [facility] Address: [address] [place] [address] Performed By: #### A LLBG ####[facility] LABCLIA [id number] [place] [address] [place] pH (Bld) 7.34 [pH] Low 7.35-7.45 [facility] Comment on above: Order Comment: Speci men Type: ARTERIAL BLOOD SPECIMENOrdering Facility: [facility] Address: [address] [place] [address] Performed By: #### A LLBG ####[facility] LABCLIA [id number] [place] [address] [place] pH adjusted to patient's actual temperature (Bld) 7.33 Low 7.35-7.45 [facility] Comment on above: Order Comment: Speci men Type: ARTERIAL BLOOD SPECIMENOrdering Facility: [facility] Address: [address] [place] [address] Performed By: #### A LLBG ####[facility] LABCLIA [id number] [place] [address] [place] Potassium [Moles/Vol] 4.2 mmol/L Normal 3.5-5.[address] [facility] Comment on above: Order Comment: Speci men Type: ARTERIAL BLOOD SPECIMENOrdering Facility: [facility] Address: [address] [place] [address] Performed By: #### A LLBG ####[facility] LABCLIA [id number] [place] [address] [place] Sodium [Moles/Vol] 138 mmol/L Normal 136-144 [facility] Comment on above: Order Comment: Speci men Type: ARTERIAL BLOOD SPECIMENOrdering Facility: [facility] Address: [address] [place] [address] Performed By: #### A LLBG ####[facility] LABCLIA [id number] [place] [address] [place] CBC panel Auto (Bld)on 10-28 Erythrocyte distribution width (RBC) [Ratio] 14.1 % Normal 11.5-15.0 [facility] Comment on above: Order Comment: Speci men Type: BLOOD SPECIMENOrdering Facility: [facility] Address: [address] [place] [address] Performed By: #### 5 8410-2 ####[facility] LABCLIA [id number] [place] [address] [place] Hematocrit (Bld) [Volume fraction] 29.2 % Low 36.0-46.0 [facility] Comment on above: Order Comment: Speci men Type: BLOOD SPECIMENOrdering Facility: [facility] Address: [address] [place] [address] Performed By: #### 5 8410-2 ####[facility] LABCLIA [id number] [place] [address] [place] Hemoglobin (Bld) [Mass/Vol] 9.5 g/dL Low 11.5-15.5 [facility] Comment on above: Order Comment: Speci men Type: BLOOD SPECIMENOrdering Facility: [facility] Address: [address] [place] [address] Performed By: #### 5 8410-2 ####[facility] LABCLIA [id number] [place] [address] [place] MCH (RBC) [Entitic mass] 32.9 pg Normal 26.0-34.0 [facility] Comment on above: Order Comment: Speci men Type: BLOOD SPECIMENOrdering Facility: [facility] Address: [address] [place] [address] Performed By: #### 5 8410-2 ####[facility] LABIA [id number] [place] [address] [place] MCHC (RBC) [Mass/Vol] 32.5 g/dL Normal 30.5-36.[address] [facility] Comment on above: Order Comment: Speci men Type: BLOOD SPECIMENOrdering Facility: [facility] Address: [address] [place] [address] Performed By: #### 5 8410-2 ####[facility] LABCLIA [id number] [place] [address] [place] MCV (RBC) [Entitic vol] 101.0 fL High 80.0-100.0 [facility] Comment on above: Order Comment: Speci men Type: BLOOD SPECIMENOrdering Facility: [facility] Address: [address] [place] [address] Performed By: #### 5 8410-2 ####[facility] LABCLIA [id number] [place] [address] [place] Nucleated RBC (Bld) [#/Vol] 0.02 10*3/uL High <0.01 [facility] Comment on above: Order Comment: Speci men Type: BLOOD SPECIMENOrdering Facility: [facility] Address: [address] [place] [address] Performed By: #### 5 8410-2 ####[facility] LABIA [id number] [place] [address] [place] Platelet mean volume (Bld) [Entitic vol] 9.3 fL Normal 9.0-12.7 [facility] Comment on above: Order Comment: Speci men Type: BLOOD SPECIMENOrdering Facility: [facility] Address: [address] [place] [address] Performed By: #### 5 8410-2 ####[facility] LABIA [id number] [place] [address] [place] Platelets (Bld) [#/Vol] 179 10*3/uL Normal 150-400 [facility] Comment on above: Order Comment: Speci men Type: BLOOD SPECIMENOrdering Facility: [facility] Address: [address] [place] [address] Performed By: #### 5 8410-2 ####[facility] LABIA [id number] [place] [address] [place] RBC (Bld) [#/Vol] 2.89 10*6/uL Low 3.90-5.20 [facility] Comment on above: Order Comment: Speci men Type: BLOOD SPECIMENOrdering Facility: [facility] Address: [address] [place] [address] Performed By: #### 5 8410-2 ####[facility] LABCLIA [id number] [place] [address] [place] WBC (Bld) [#/Vol] 15.99 10*3/uL High 3.70-11.00 [facility] Comment on above: Order Comment: Speci men Type: BLOOD SPECIMENOrdering Facility: [facility] Address: [address] [place] [address] Performed By: #### 5 8410-2 ####[facility] LABCLIA [id number] [place] [address] [place] CONSULT PROGon 10-29-2023 CONSULT PROG Normal [facility] Comprehensive metabolic 2000 panelon 10-29-2023 Albumin [Mass/Vol] 3.3 g/dL Low 3.9-4.9 [facility] Comment on above: Order Comment: Speci men Type: BLOOD SPECIMENOrdering Facility: [facility] Address: [address] [place] [address] Performed By: #### 2 4323-8 ####[facility] LABCLIA [id number] [place] [address] [place] ALP [Catalytic activity/Vol] 58 U/L Normal 34-123 [facility] Comment on above: Order Comment: Speci men Type: BLOOD SPECIMENOrdering Facility: [facility] Address: [address] [place] [address] Performed By: #### 2 4323-8 ####[facility] LABCLIA [id number] [place] [address] [place] ALT [Catalytic activity/Vol] 30 U/L Normal 7-38 [facility] Comment on above: Order Comment: Speci men Type: BLOOD SPECIMENOrdering Facility: [facility] Address: [address] [place] [address] Performed By: #### 2 4323-8 ####[facility] LABCLIA [id number] [place] [address] [place] Anion gap [Moles/Vol] 17 mmol/L High 8-[address] [facility] Comment on above: Order Comment: Speci men Type: BLOOD SPECIMENOrdering Facility: [facility] Address: [address] [place] [address] Performed By: #### 2 4323-8 ####[facility] LABCLIA [id number] [place] [address] [place] AST [Catalytic activity/Vol] 108 U/L High 13-35 [facility] Comment on above: Order Comment: Speci men Type: BLOOD SPECIMENOrdering Facility: [facility] Address: [address] [place] [address] Performed By: #### 2 4323-8 ####[facility] LABCLIA [id number] [place] [address] [place] Bilirubin [Mass/Vol] 0.6 mg/dL Normal 0.2-1.3 [facility] Comment on above: Order Comment: Speci men Type: BLOOD SPECIMENOrdering Facility: [facility] Address: [address] [place] [address] Performed By: #### 2 4323-8 ####[facility] LABCLIA [id number] [place] [address] [place] Calcium [Mass/Vol] 9.0 mg/dL Normal 8.5-10.2 [facility] Comment on above: Order Comment: Speci men Type: BLOOD SPECIMENOrdering Facility: [facility] Address: [address] [place] [address] Performed By: #### 2 4323-8 ####[facility] LABCLIA [id number] [place] [address] [place] Chloride [Moles/Vol] 102 mmol/L Normal 98-107 [facility] Comment on above: Order Comment: Speci men Type: BLOOD SPECIMENOrdering Facility: [facility] Address: [address] [place] [address] Performed By: #### 2 4323-8 ####[facility] LABCLIA [id number] [place] [address] [place] CO2 [Moles/Vol] 19 mmol/L Low 22-30 [facility] Comment on above: Order Comment: Speci men Type: BLOOD SPECIMENOrdering Facility: [facility] Address: [address] [place] [address] Performed By: #### 2 4323-8 ####[facility] LABCLIA [id number] [place] [address] [place] Creatinine [Mass/Vol] 1.95 mg/dL High 0.58-0.[address] [facility] Comment on above: Order Comment: Speci men Type: BLOOD SPECIMENOrdering Facility: [facility] Address: [address] [place] [address] Performed By: #### 2 4323-8 ####[facility] LABCLIA [id number] [place] [address] [place] Creatinine and Glomerular filtration rate.predicted panel (S/P/Bld) 28 mL/min/1.73m??? Low >=60 [facility] Comment on above: Order Comment: Speci men Type: BLOOD SPECIMENOrdering Facility: [facility] Address: [address] [place] [address] Result Comment: Malorie mated Glomerular Filtration Rate (eGFR) is calculated using the 2020 CKD-EPI creatinine equation. This equation utilizes serum creatinine, sex, and age as parameters. The creatinine assay has traceable calibration to isotope dilution-mass spectrometry. Refer to KDIGO guidelines for clinical interpretation. In patients with unstable renal function, e.g. those with acute kidney injury, the eGFR may not accurately reflect actual GFR. Performed By: #### 2 4323-8 ####[facility] LABCLIA [id number] [place] [address] [place] Glucose [Mass/Vol] 162 mg/dL High 74-99 [facility] Comment on above: Order Comment: Speci men Type: BLOOD SPECIMENOrdering Facility: [facility] Address: [address] [place] [address] Result Comment: The [place] [employer] (ADA) provides guidance for cutoff values for fasting glucose and random glucose. The ADA defines fasting as no caloric intake for at least 8 hours. Fasting plasma glucose results between 100 to 125 mg/dL indicate increased risk for diabetes (prediabetes).Fasting plasma glucose results greater than or equal to 126 mg/dL meet the criteria for diagnosis of diabetes. In the absence of unequivocal hyperglycemia, results should be confirmed by repeat testing. In a patient with classic symptoms of hyperglycemia or hyperglycemic crisis, random plasma glucose results greater than or equal to 200 mg/dL meet the criteria for diagnosis of diabetes.Reference: Standards of Medical Care in Diabetes 2016, [place] [employer]. Diabetes Care. 2016.39(Suppl 1). Performed By: #### 2 4323-8 ####[facility] LABIA [id number] [place] [address] [place] Potassium [Moles/Vol] 4.2 mmol/L Normal 3.7-5.[address] [facility] Comment on above: Order Comment: Speci men Type: BLOOD SPECIMENOrdering Facility: [facility] Address: [address] [place] [address] Performed By: #### 2 4323-8 ####[facility] LABIA [id number] [place] [address] [place] Protein [Mass/Vol] 5.8 g/dL Low 6.3-8.0 [facility] Comment on above: Order Comment: Speci men Type: BLOOD SPECIMENOrdering Facility: [facility] Address: [address] [place] [address] Performed By: #### 2 4323-8 ####[facility] LABIA [id number] [place] [address] [place] Sodium [Moles/Vol] 138 mmol/L Normal 136-144 [facility] Comment on above: Order Comment: Speci men Type: BLOOD SPECIMENOrdering Facility: [facility] Address: [address] [place] [address] Performed By: #### 2 4323-8 ####[facility] LABCLIA [id number] [address] [address] [place] Urea nitrogen [Mass/Vol] 31 mg/dL High 7-21 [facility] Comment on above: Order Comment: Speci men Type: BLOOD SPECIMENOrdering Facility: [facility] Address: [address] [place], [place] [address] Performed By: #### 2 4323-8 ####[facility] LABCLIA [id number] [place] [id number] [place] Gas + CO Pnl BldVon 10-29-19 24 Body temperature 98.96 [degF] Normal [facility] Comment on above: Order Comment: Speci men Type: VENOUS BLOOD SPECIMENOrdering Facility: [facility] Address: [address] [place], [place] [address] Performed By: #### 2 4344-4 ####[facility] LABCLIA [id number] [place] [id number] [place] Order Comment: Speci men Type: ARTERIAL BLOOD SPECIMENOrdering Facility: [facility] Address: [address] [place], [place] [address] Performed By: #### A LLBG ####[facility] LABCLIA [id number] [place] [id number] [place] FIO2 35 % Normal [facility] Comment on above: Order Comment: Speci men Type: VENOUS BLOOD SPECIMENOrdering Facility: [facility] Address: [address] [place] [address] Performed By: #### 2 4344-4 ####[facility] LABCLIA [id number] [place] [id number] [place] Order Comment: Speci men Type: ARTERIAL BLOOD SPECIMENOrdering Facility: [facility] Address: [address] [place] [address] Performed By: #### A LLBG ####[facility] LABCLIA [id number] [place] [id number] [place] Lactate [Moles/Vol] 1.1 mmol/L Normal 0.5-2.2 [facility] Comment on above: Order Comment: Speci men Type: VENOUS BLOOD SPECIMENOrdering Facility: [facility] Address: [address] [place], [place] [address] Performed By: #### 2 4344-4 ####[facility] LABCLIA [id number] [place] [address] [place] Order Comment: Speci men Type: ARTERIAL BLOOD SPECIMENOrdering Facility: [facility] Address: [address] [place] [address] Performed By: #### A LLBG ####[facility] LABCLIA [id number] [place] [address] [place] O2 THERAPY Positive Normal [facility] Comment on above: Order Comment: Speci men Type: VENOUS BLOOD SPECIMENOrdering Facility: [facility] Address: [address] [place], [place] [address] Performed By: #### 2 4344-4 ####[facility] LABCLIA [id number] [place] [address] [place] Order Comment: Speci men Type: ARTERIAL BLOOD SPECIMENOrdering Facility: [facility] Address: [address] [place], [place] [address] Performed By: #### A LLBG ####[facility] LABCLIA [id number] [place] [id number] [place] Potassium [Moles/Vol] 3.9 mmol/L Normal 3.5-5.[address] [facility] Comment on above: Order Comment: Speci men Type: VENOUS BLOOD SPECIMENOrdering Facility: [facility] Address: [address] [place], [place] [address] Performed By: #### 2 4344-4 ####[facility] LABCLIA [id number] [place] [id number] [place] Order Comment: Speci men Type: ARTERIAL BLOOD SPECIMENOrdering Facility: [facility] Address: [address] [place] [address] Performed By: #### A LLBG ####[facility] LABCLIA [id number] [place] [address] [place] Sodium [Moles/Vol] 138 mmol/L Normal 136-144 [facility] Comment on above: Order Comment: Speci men Type: VENOUS BLOOD SPECIMENOrdering Facility: [facility] Address: [address] [place] [address] Performed By: #### 2 4344-4 ####[facility] LABCLIA [id number] [place] [address] [place] Order Comment: Speci men Type: ARTERIAL BLOOD SPECIMENOrdering Facility: [facility] Address: [address] [place] [address] Performed By: #### A LLBG ####[facility] LABCLIA [id number] [place] [address] [place] Body temperature 99.14 [degF] Normal [facility] Comment on above: Order Comment: Speci men Type: VENOUS BLOOD SPECIMENOrdering Facility: [facility] Address: [address] [place] [address] Performed By: #### 2 4344-4 ####[facility] LABCLIA [id number] [place] [id number] [place] Order Comment: Speci men Type: ARTERIAL BLOOD SPECIMENOrdering Facility: [facility] Address: [facility] [place] [address] Performed By: #### A LLBG ####[facility] LABCLIA [id number] [place] [address] [place] FIO2 35 % Normal [facility] Comment on above: Order Comment: Speci men Type: VENOUS BLOOD SPECIMENOrdering Facility: [facility] Address: [address] [place] [address] Performed By: #### 2 4344-4 ####[facility] LABCLIA [id number] [address] [address] [place] Order Comment: Speci men Type: ARTERIAL BLOOD SPECIMENOrdering Facility: [facility] Address: [address] [place] [id number] Performed By: #### A LLBG ####[facility] LABCLIA [id number] [address] [address] [place] O2 THERAPY Positive Normal [facility] Comment on above: Order Comment: Speci men Type: VENOUS BLOOD SPECIMENOrdering Facility: [facility] Address: [address] [place] [id number] Performed By: #### 2 4344-4 ####[facility] LABCLIA [id number] [place] [id number] [place] Order Comment: Speci men Type: ARTERIAL BLOOD SPECIMENOrdering Facility: [facility] Address: [address] [place] [id number] Performed By: #### A LLBG ####[facility] LABCLIA [id number] [place] [id number] [place] Body temperature 99.32 [degF] Normal [facility] Comment on above: Order Comment: Speci men Type: VENOUS BLOOD SPECIMENOrdering Facility: [facility] Address: [address] [place] [id number] Performed By: #### 2 4344-4 ####[facility] LABCLIA [id number] [place] [id number] [place] Order Comment: Speci men Type: ARTERIAL BLOOD SPECIMENOrdering Facility: [facility] Address: [address] [place] [id number] Performed By: #### A LLBG ####[facility] LABCLIA [id number] [address] [address] [place] FIO2 40 % Normal [facility] Comment on above: Order Comment: Speci men Type: VENOUS BLOOD SPECIMENOrdering Facility: [facility] Address: [address] [place], [place] [address] Performed By: #### 2 4344-4 ####[facility] LABCLIA [id number] [place] [id number] [place] Order Comment: Speci men Type: ARTERIAL BLOOD SPECIMENOrdering Facility: [facility] Address: [address] [place] [id number] Performed By: #### A LLBG ####[facility] LABCLIA [id number] [place] [id number] [place] O2 THERAPY Positive Normal [facility] Comment on above: Order Comment: Speci men Type: VENOUS BLOOD SPECIMENOrdering Facility: [facility] Address: [address] [place], [place] [address] Performed By: #### 2 4344-4 ####[facility] LABCLIA [id number] [place] [address] [place] Order Comment: Speci men Type: ARTERIAL BLOOD SPECIMENOrdering Facility: [facility] Address: [address] [place], [place] [address] Performed By: #### A LLBG ####[facility] LABCLIA [id number] [place] [id number] [place] Body temperature 99.86 [degF] Normal [facility] Comment on above: Order Comment: Speci men Type: VENOUS BLOOD SPECIMENOrdering Facility: [facility] Address: [address] [place] [id number] Performed By: #### 2 4344-4 ####[facility] LABCLIA [id number] [address] [address] [place] Order Comment: Speci men Type: ARTERIAL BLOOD SPECIMENOrdering Facility: [facility] Address: [address] [place] [id number] Performed By: #### A LLBG ####[facility] LABCLIA [id number] [place] [address] [place] FIO2 40 % Normal [facility] Comment on above: Order Comment: Speci men Type: VENOUS BLOOD SPECIMENOrdering Facility: [facility] Address: [address] [place] [address] Performed By: #### 2 4344-4 ####[facility] LABCLIA [id number] [place] [address] [place] Order Comment: Speci men Type: ARTERIAL BLOOD SPECIMENOrdering Facility: [facility] Address: [address] [place] [address] Performed By: #### A LLBG ####[facility] LABCLIA [id number] [place] [address] [place] LITERS 50 Liters/min Normal [facility] Comment on above: Order Comment: Speci men Type: VENOUS BLOOD SPECIMENOrdering Facility: [facility] Address: [address] [place], [place] [address] Performed By: #### 2 4344-4 ####[facility] LABCLIA [id number] [address] [place] Order Comment: Speci men Type: ARTERIAL BLOOD SPECIMENOrdering Facility: [facility] Address: [address] [place] [id number] Performed By: #### A LLBG ####[facility] LABCLIA [id number] [place] [address] [place] Body temperature 100.04 [degF] Normal [facility] Comment on above: Order Comment: Speci men Type: VENOUS BLOOD SPECIMENOrdering Facility: [facility] Address: [address] [place], [place] [address] Performed By: #### 2 4344-4 ####[facility] LABCLIA [id number] [place] [address] [place] Order Comment: Speci men Type: ARTERIAL BLOOD SPECIMENOrdering Facility: [facility] Address: [address] [place] [address] Performed By: #### A LLBG ####[facility] LABCLIA [id number] [place] [address] [place] FIO2 40 % Normal [facility] Comment on above: Order Comment: Speci men Type: VENOUS BLOOD SPECIMENOrdering Facility: [facility] Address: [address] [place] [address] Performed By: #### 2 4344-4 ####[facility] LABCLIA [id number] [place] [address] [place] Order Comment: Speci men Type: ARTERIAL BLOOD SPECIMENOrdering Facility: [facility] Address: [address] [place] [address] Performed By: #### A LLBG ####[facility] LABCLIA [id number] [place] [address] [place] HCO3 (Bld) [Moles/Vol] 23 mmol/L Normal 22-26 [facility] Comment on above: Order Comment: Speci men Type: VENOUS BLOOD SPECIMENOrdering Facility: [facility] Address: [address] [place] [address] Performed By: #### 2 4344-4 ####[facility] LABCLIA [id number] [place] [address] [place] Order Comment: Speci men Type: ARTERIAL BLOOD SPECIMENOrdering Facility: [facility] Address: [address] [place] [address] Performed By: #### A LLBG ####[facility] LABCLIA [id number] [place] [address] [place] O2 THERAPY Positive Normal [facility] Comment on above: Order Comment: Speci men Type: VENOUS BLOOD SPECIMENOrdering Facility: [facility] Address: [address] [place] [id number] Performed By: #### 2 4344-4 ####[facility] LABCLIA [id number] [address] [address] [place] Order Comment: Speci men Type: ARTERIAL BLOOD SPECIMENOrdering Facility: [facility] Address: [address] [place] [address] Performed By: #### A LLBG ####[facility] LABCLIA [id number] [place] [address] [place] Body temperature 99.68 [degF] Normal [facility] Comment on above: Order Comment: Speci men Type: VENOUS BLOOD SPECIMENOrdering Facility: [facility] Address: [address] [place] [address] Performed By: #### 2 4344-4 ####[facility] LABCLIA [id number] [place] [address] [place] Order Comment: Speci men Type: ARTERIAL BLOOD SPECIMENOrdering Facility: [facility] Address: [address] [place] [address] Performed By: #### A LLBG ####[facility] LABCLIA [id number] [place] [address] [place] Hemoglobin (Bld) [Mass/Vol] 8.7 g/dL Low 11.5-15.5 [facility] Comment on above: Order Comment: Speci men Type: VENOUS BLOOD SPECIMENOrdering Facility: [facility] Address: [address] [place] [id number] Performed By: #### 2 4344-4 ####[facility] LABCLIA [id number] [place] [id number] [place] Order Comment: Speci men Type: ARTERIAL BLOOD SPECIMENOrdering Facility: [facility] Address: [address] [place] [address] Performed By: #### A LLBG ####[facility] LABCLIA [id number] [place] [address] [place] O2 THERAPY Positive Normal [facility] Comment on above: Order Comment: Speci men Type: VENOUS BLOOD SPECIMENOrdering Facility: [facility] Address: [address] [place] [address] Performed By: #### 2 4344-4 ####[facility] LABCLIA [id number] [place] [address] [place] Order Comment: Speci men Type: ARTERIAL BLOOD SPECIMENOrdering Facility: [facility] Address: [address] [place] [address] Performed By: #### A LLBG ####[facility] LABCLIA [id number] [place] [address] [place] Gas and Carbon monoxide pane l (BldV)on 10-29-2023 BASE DEFICIT, VENOUS -1 mmol/L Normal -2-0 [facility] Comment on above: Order Comment: Speci men Type: VENOUS BLOOD SPECIMENOrdering Facility: [facility] Address: [address] [place] [address] Performed By: #### 2 4344-4 ####[facility] LABCLIA [id number] [place] [address] [place] Calcium.ionized adjusted to pH 7.4 (BldA) [Moles/Vol] 1.14 mmol/L Normal 1.08-1.30 [facility] Comment on above: Order Comment: Speci men Type: VENOUS BLOOD SPECIMENOrdering Facility: [facility] Address: [address] [place] [address] Performed By: #### 2 4344-4 ####[facility] LABCLIA [id number] [place] [address] [place] Carboxyhemoglobin (BldV) [Mass fraction] 1.4 % Normal 0.0-2.0 [facility] Comment on above: Order Comment: Speci men Type: VENOUS BLOOD SPECIMENOrdering Facility: [facility] Address: [address] [place] [address] Result Comment: Carb oxyhemoglobin Reference Range for Smokers: 2.0-8.0% Performed By: #### 2 4344-4 ####[facility] LABCLIA [id number] [place] [address] [place] CO2 (BldV) [Partial pressure] 45 mm[Hg] Normal 42-55 [facility] Comment on above: Order Comment: Speci men Type: VENOUS BLOOD SPECIMENOrdering Facility: [facility] Address: [address] [place] [address] Performed By: #### 2 4344-4 ####[facility] LABCLIA [id number] [place] [address] [place] CO2 adjusted to patient's actual temperature (BldV) [Partial pressure] 46 mmHg Normal 42-55 [facility] Comment on above: Order Comment: Speci men Type: VENOUS BLOOD SPECIMENOrdering Facility: [facility] Address: [address] [place] [address] Performed By: #### 2 4344-4 ####[facility] LABCLIA [id number] [place] [address] [place] Glucose [Mass/Vol] 130 mg/dL High 60-105 [facility] Comment on above: Order Comment: Speci men Type: VENOUS BLOOD SPECIMENOrdering Facility: [facility] Address: [address] [place] [address] Performed By: #### 2 4344-4 ####[facility] LABCLIA [id number] [place] [address] [place] HCO3 (Bld) [Moles/Vol] 24 mmol/L Normal 24-28 [facility] Comment on above: Order Comment: Speci men Type: VENOUS BLOOD SPECIMENOrdering Facility: [facility] Address: [address] [place] [address] Performed By: #### 2 4344-4 ####[facility] LABCLIA [id number] [place] [address] [place] Hematocrit (Bld) [Volume fraction] 27.4 % Low 36.0-46.0 [facility] Comment on above: Order Comment: Speci men Type: VENOUS BLOOD SPECIMENOrdering Facility: [facility] Address: [address] [place] [address] Performed By: #### 2 4344-4 ####[facility] LABCLIA [id number] [place] [address] [place] Hemoglobin (Bld) [Mass/Vol] 8.8 g/dL Low 11.5-15.5 [facility] Comment on above: Order Comment: Speci men Type: VENOUS BLOOD SPECIMENOrdering Facility: [facility] Address: [address] [place] [address] Performed By: #### 2 4344-4 ####[facility] LABCLIA [id number] [place] [address] [place] Lactate [Moles/Vol] 1.1 mmol/L Normal 0.5-2.2 [facility] Comment on above: Order Comment: Speci men Type: VENOUS BLOOD SPECIMENOrdering Facility: [facility] Address: [address] [place] [address] Performed By: #### 2 4344-4 ####[facility] LABCLIA [id number] [place] [address] [place] Methemoglobin (Bld) [Mass fraction] 0.8 % Normal 0.0-1.5 [facility] Comment on above: Order Comment: Speci men Type: VENOUS BLOOD SPECIMENOrdering Facility: [facility] Address: [address] [place] [address] Performed By: #### 2 4344-4 ####[facility] LABCLIA [id number] [place] [id number] [place] Oxygen (BldV) [Partial pressure] 34 mm[Hg] Low 35-45 [facility] Comment on above: Order Comment: Speci men Type: VENOUS BLOOD SPECIMENOrdering Facility: [facility] Address: [address] [place] [address] Performed By: #### 2 4344-4 ####[facility] LABCLIA [id number] [place] [address] [place] Oxygen adjusted to patient's actual temperature (BldV) [Partial pressure] 35 mmHg Normal 35-45 [facility] Comment on above: Order Comment: Speci men Type: VENOUS BLOOD SPECIMENOrdering Facility: [facility] Address: [address] [place] [address] Performed By: #### 2 4344-4 ####[facility] LABCLIA [id number] [place] [address] [place] Oxygen saturation in Venous blood 54 % Low 60-85 [facility] Comment on above: Order Comment: Speci men Type: VENOUS BLOOD SPECIMENOrdering Facility: [facility] Address: [address] [place] [address] Performed By: #### 2 4344-4 ####[facility] LABIA [id number] [place] [address] [place] Oxyhemoglobin (BldV) [Mass fraction] 53 % Low 60-85 [facility] Comment on above: Order Comment: Speci men Type: VENOUS BLOOD SPECIMENOrdering Facility: [facility] Address: [address] [place], [place] [address] Performed By: #### 2 4344-4 ####[facility] LABCLIA [id number] [place] [id number] [place] pH (BldV) 7.35 [pH] Normal 7.32-7.42 [facility] Comment on above: Order Comment: Speci men Type: VENOUS BLOOD SPECIMENOrdering Facility: [facility] Address: [address] [place] [address] Performed By: #### 2 4344-4 ####[facility] LABIA [id number] [place] [address] [place] pH adjusted to patient's actual temperature (BldV) 7.34 Normal 7.32-7.42 [facility] Comment on above: Order Comment: Speci men Type: VENOUS BLOOD SPECIMENOrdering Facility: [facility] Address: [address] [place] [address] Performed By: #### 2 4344-4 ####[facility] LABIA [id number] [place] [address] [place] Base excess Calc (BldV) [Moles/Vol] 1 mmol/L Normal 0-2 [facility] Comment on above: Order Comment: Speci men Type: VENOUS BLOOD SPECIMENOrdering Facility: [facility] Address: [address] [place] [address] Performed By: #### 2 4344-4 ####[facility] LABIA [id number] [place] [address] [place] Body temperature 98.6 [degF] Normal [facility] Comment on above: Order Comment: Speci men Type: VENOUS BLOOD SPECIMENOrdering Facility: [facility] Address: [address] [place] [address] Performed By: #### 2 4344-4 ####[facility] LABIA [id number] [place] [address] [place] Calcium.ionized adjusted to pH 7.4 (BldA) [Moles/Vol] 1.19 mmol/L Normal 1.08-1.30 [facility] Comment on above: Order Comment: Speci men Type: VENOUS BLOOD SPECIMENOrdering Facility: [facility] Address: [address] [place] [address] Performed By: #### 2 4344-4 ####[facility] LABCLIA [id number] [place] [address] [place] Carboxyhemoglobin (BldV) [Mass fraction] 1.3 % Normal 0.0-2.0 [facility] Comment on above: Order Comment: Speci men Type: VENOUS BLOOD SPECIMENOrdering Facility: [facility] Address: [address] [place] [address] Result Comment: Carb oxyhemoglobin Reference Range for Smokers: 2.0-8.0% Performed By: #### 2 4344-4 ####[facility] LABCLIA [id number] [place] [address] [place] CO2 (BldV) [Partial pressure] 46 mm[Hg] Normal 42-55 [facility] Comment on above: Order Comment: Speci men Type: VENOUS BLOOD SPECIMENOrdering Facility: [facility] Address: [address] [place] [address] Performed By: #### 2 4344-4 ####[facility] LABCLIA [id number] [place] [address] [place] Glucose [Mass/Vol] 129 mg/dL High 60-105 [facility] Comment on above: Order Comment: Speci men Type: VENOUS BLOOD SPECIMENOrdering Facility: [facility] Address: [address] [place] [address] Performed By: #### 2 4344-4 ####[facility] LABCLIA [id number] [place] [address] [place] HCO3 (Bld) [Moles/Vol] 26 mmol/L Normal 24-28 [facility] Comment on above: Order Comment: Speci men Type: VENOUS BLOOD SPECIMENOrdering Facility: [facility] Address: [address] [place] [address] Performed By: #### 2 4344-4 ####[facility] LABCLIA [id number] [place] [address] [place] Hematocrit (Bld) [Volume fraction] 28.1 % Low 36.0-46.0 [facility] Comment on above: Order Comment: Speci men Type: VENOUS BLOOD SPECIMENOrdering Facility: [facility] Address: [address] [place] [address] Performed By: #### 2 4344-4 ####[facility] LABCLIA [id number] [place] [address] [place] Hemoglobin (Bld) [Mass/Vol] 9.1 g/dL Low 11.5-15.5 [facility] Comment on above: Order Comment: Speci men Type: VENOUS BLOOD SPECIMENOrdering Facility: [facility] Address: [address] [place] [address] Performed By: #### 2 4344-4 ####[facility] LABCLIA [id number] [place] [address] [place] Methemoglobin (Bld) [Mass fraction] 1.0 % Normal 0.0-1.5 [facility] Comment on above: Order Comment: Speci men Type: VENOUS BLOOD SPECIMENOrdering Facility: [facility] Address: [address] [place] [address] Performed By: #### 2 4344-4 ####[facility] LABCLIA [id number] [place] [address] [place] Oxygen (BldV) [Partial pressure] 33 mm[Hg] Low 35-45 [facility] Comment on above: Order Comment: Speci men Type: VENOUS BLOOD SPECIMENOrdering Facility: [facility] Address: [address] [place] [address] Performed By: #### 2 4344-4 ####[facility] LABCLIA [id number] [place] [address] [place] Oxygen saturation in Venous blood 55 % Low 60-85 [facility] Comment on above: Order Comment: Speci men Type: VENOUS BLOOD SPECIMENOrdering Facility: [facility] Address: [address] [place] [address] Performed By: #### 2 4344-4 ####[facility] LABCLIA [id number] [place] [address] [place] Oxyhemoglobin (BldV) [Mass fraction] 53 % Low 60-85 [facility] Comment on above: Order Comment: Speci men Type: VENOUS BLOOD SPECIMENOrdering Facility: [facility] Address: [address] [place] [address] Performed By: #### 2 4344-4 ####[facility] LABCLIA [id number] [place] [address] [place] pH (BldV) 7.37 [pH] Normal 7.32-7.42 [facility] Comment on above: Order Comment: Speci men Type: VENOUS BLOOD SPECIMENOrdering Facility: [facility] Address: [address] [place] [address] Performed By: #### 2 4344-4 ####[facility] LABIA [id number] [place] [address] [place] Base excess Calc (BldV) [Moles/Vol] 0 mmol/L Normal 0-2 [facility] Comment on above: Order Comment: Speci men Type: VENOUS BLOOD SPECIMENOrdering Facility: [facility] Address: [address] [place] [address] Performed By: #### 2 4344-4 ####[facility] LABCLIA [id number] [place] [address] [place] Calcium.ionized (Bld) [Mass/Vol] 1.21 mmol/L Normal 1.08-1.30 [facility] Comment on above: Order Comment: Speci men Type: VENOUS BLOOD SPECIMENOrdering Facility: [facility] Address: [address] [place] [address] Performed By: #### 2 4344-4 ####[facility] LABCLIA [id number] [place] [address] [place] Calcium.ionized adjusted to pH 7.4 (BldA) [Moles/Vol] 1.19 mmol/L Normal 1.08-1.30 [facility] Comment on above: Order Comment: Speci men Type: VENOUS BLOOD SPECIMENOrdering Facility: [facility] Address: [address] [place] [address] Performed By: #### 2 4344-4 ####[facility] LABIA [id number] [place] [address] [place] Carboxyhemoglobin (BldV) [Mass fraction] 1.0 % Normal 0.0-2.0 [facility] Comment on above: Order Comment: Speci men Type: VENOUS BLOOD SPECIMENOrdering Facility: [facility] Address: [address] [place] [address] Result Comment: Carb oxyhemoglobin Reference Range for Smokers: 2.0-8.0% Performed By: #### 2 4344-4 ####[facility] [id number] [place] [address] [place] CO2 (BldV) [Partial pressure] 45 mm[Hg] Normal 42-55 [facility] Comment on above: Order Comment: Speci men Type: VENOUS BLOOD SPECIMENOrdering Facility: [facility] Address: [address] [place] [address] Performed By: #### 2 4344-4 ####[facility] LABIA [id number] [place] [address] [place] CO2 adjusted to patient's actual temperature (BldV) [Partial pressure] 45 mmHg Normal 42-55 [facility] Comment on above: Order Comment: Speci men Type: VENOUS BLOOD SPECIMENOrdering Facility: [facility] Address: [address] [place] [address] Performed By: #### 2 4344-4 ####[facility] LABIA [id number] [place] [address] [place] Glucose [Mass/Vol] 152 mg/dL High 60-105 [facility] Comment on above: Order Comment: Speci men Type: VENOUS BLOOD SPECIMENOrdering Facility: [facility] Address: [address] [place] [address] Performed By: #### 2 4344-4 ####[facility] LABCLIA [id number] [place] [address] [place] HCO3 (Bld) [Moles/Vol] 25 mmol/L Normal 24-28 [facility] Comment on above: Order Comment: Speci men Type: VENOUS BLOOD SPECIMENOrdering Facility: [facility] Address: [address] [place] [address] Performed By: #### 2 4344-4 ####[facility] LABCLIA [id number] [place] [address] [place] Hematocrit (Bld) [Volume fraction] 27.8 % Low 36.0-46.0 [facility] Comment on above: Order Comment: Speci men Type: VENOUS BLOOD SPECIMENOrdering Facility: [facility] Address: [address] [place] [address] Performed By: #### 2 4344-4 ####[facility] LABCLIA [id number] [place] [address] [place] Hemoglobin (Bld) [Mass/Vol] 9.0 g/dL Low 11.5-15.5 [facility] Comment on above: Order Comment: Speci men Type: VENOUS BLOOD SPECIMENOrdering Facility: [facility] Address: [address] [place] [address] Performed By: #### 2 4344-4 ####[facility] LABCLIA [id number] [place] [id number] [place] Methemoglobin (Bld) [Mass fraction] 0.8 % Normal 0.0-1.5 [facility] Comment on above: Order Comment: Speci men Type: VENOUS BLOOD SPECIMENOrdering Facility: [facility] Address: [address] [place] [address] Performed By: #### 2 4344-4 ####[facility] LABCLIA [id number] [address] [address] [place] Oxygen (BldV) [Partial pressure] 35 mm[Hg] Normal 35-45 [facility] Comment on above: Order Comment: Speci men Type: VENOUS BLOOD SPECIMENOrdering Facility: [facility] Address: [address] [place] [address] Performed By: #### 2 4344-4 ####[facility] LABCLIA [id number] [address] [address] [place] Oxygen adjusted to patient's actual temperature (BldV) [Partial pressure] 35 mmHg Normal 35-45 [facility] Comment on above: Order Comment: Speci men Type: VENOUS BLOOD SPECIMENOrdering Facility: [facility] Address: [address] [place] [address] Performed By: #### 2 4344-4 ####[facility] LABCLIA [id number] [address] [address] [place] Oxygen saturation in Venous blood 59 % Low 60-85 [facility] Comment on above: Order Comment: Speci men Type: VENOUS BLOOD SPECIMENOrdering Facility: [facility] Address: [address] [place] [address] Performed By: #### 2 4344-4 ####[facility] LABCLIA [id number] [address] [address] [place] Oxyhemoglobin (BldV) [Mass fraction] 58 % Low 60-85 [facility] Comment on above: Order Comment: Speci men Type: VENOUS BLOOD SPECIMENOrdering Facility: [facility] Address: [address] [place] [address] Performed By: #### 2 4344-4 ####[facility] LABCLIA [id number] [place] [address] [place] pH (BldV) 7.36 [pH] Normal 7.32-7.42 [facility] Comment on above: Order Comment: Speci men Type: VENOUS BLOOD SPECIMENOrdering Facility: [facility] Address: [address] [place] [address] Performed By: #### 2 4344-4 ####[facility] LABCLIA [id number] [place] [address] [place] pH adjusted to patient's actual temperature (BldV) 7.36 Normal 7.32-7.42 [facility] Comment on above: Order Comment: Speci men Type: VENOUS BLOOD SPECIMENOrdering Facility: [facility] Address: [address] [place] [address] Performed By: #### 2 4344-4 ####[facility] LABIA [id number] [place] [address] [place] BASE DEFICIT, VENOUS -4 mmol/L Low -2-0 [facility] Comment on above: Order Comment: Speci men Type: VENOUS BLOOD SPECIMENOrdering Facility: [facility] Address: [address] [place] [address] Performed By: #### 2 4344-4 ####[facility] LABIA [id number] [place] [address] [place] Calcium.ionized (Bld) [Mass/Vol] 1.19 mmol/L Normal 1.08-1.30 [facility] Comment on above: Order Comment: Speci men Type: VENOUS BLOOD SPECIMENOrdering Facility: [facility] Address: [address] [place] [address] Performed By: #### 2 4344-4 ####[facility] LABCLIA [id number] [place] [address] [place] Calcium.ionized adjusted to pH 7.4 (BldA) [Moles/Vol] 1.15 mmol/L Normal 1.08-1.30 [facility] Comment on above: Order Comment: Speci men Type: VENOUS BLOOD SPECIMENOrdering Facility: [facility] Address: [address] [place] [address] Performed By: #### 2 4344-4 ####[facility] LABCLIA [id number] [place] [address] [place] Carboxyhemoglobin (BldV) [Mass fraction] 1.6 % Normal 0.0-2.0 [facility] Comment on above: Order Comment: Speci men Type: VENOUS BLOOD SPECIMENOrdering Facility: [facility] Address: [address] [place] [address] Result Comment: Carb oxyhemoglobin Reference Range for Smokers: 2.0-8.0% Performed By: #### 2 4344-4 ####[facility] LABCLIA [id number] [place] [address] [place] CO2 (BldV) [Partial pressure] 40 mm[Hg] Low 42-55 [facility] Comment on above: Order Comment: Speci men Type: VENOUS BLOOD SPECIMENOrdering Facility: [facility] Address: [address] [place] [address] Performed By: #### 2 4344-4 ####[facility] LABCLIA [id number] [place] [address] [place] CO2 adjusted to patient's actual temperature (BldV) [Partial pressure] 41 mmHg Low 42-55 [facility] Comment on above: Order Comment: Speci men Type: VENOUS BLOOD SPECIMENOrdering Facility: [facility] Address: [address] [place] [address] Performed By: #### 2 4344-4 ####[facility] LABCLIA [id number] [place] [address] [place] Glucose [Mass/Vol] 161 mg/dL High 60-105 [facility] Comment on above: Order Comment: Speci men Type: VENOUS BLOOD SPECIMENOrdering Facility: [facility] Address: [address] [place] [address] Performed By: #### 2 4344-4 ####[facility] LABCLIA [id number] [place] [address] [place] HCO3 (Bld) [Moles/Vol] 21 mmol/L Low 24-28 [facility] Comment on above: Order Comment: Speci men Type: VENOUS BLOOD SPECIMENOrdering Facility: [facility] Address: [address] [place] [address] Performed By: #### 2 4344-4 ####[facility] LABCLIA [id number] [place] [address] [place] Hematocrit (Bld) [Volume fraction] 26.2 % Low 36.0-46.0 [facility] Comment on above: Order Comment: Speci men Type: VENOUS BLOOD SPECIMENOrdering Facility: [facility] Address: [address] [place] [address] Performed By: #### 2 4344-4 ####[facility] LABCLIA [id number] [place] [address] [place] Hemoglobin (Bld) [Mass/Vol] 8.4 g/dL Low 11.5-15.5 [facility] Comment on above: Order Comment: Speci men Type: VENOUS BLOOD SPECIMENOrdering Facility: [facility] Address: [address] [place] [address] Performed By: #### 2 4344-4 ####[facility] LABCLIA [id number] [place] [address] [place] Lactate [Moles/Vol] 0.9 mmol/L Normal 0.5-2.2 [facility] Comment on above: Order Comment: Speci men Type: VENOUS BLOOD SPECIMENOrdering Facility: [facility] Address: [address] [place] [address] Performed By: #### 2 4344-4 ####[facility] LABCLIA [id number] [address] [address] [place] Methemoglobin (Bld) [Mass fraction] 0.6 % Normal 0.0-1.5 [facility] Comment on above: Order Comment: Speci men Type: VENOUS BLOOD SPECIMENOrdering Facility: [facility] Address: [address] [place] [address] Performed By: #### 2 4344-4 ####[facility] LABCLIA [id number] [address] [address] [place] Oxygen (BldV) [Partial pressure] 45 mm[Hg] Normal 35-45 [facility] Comment on above: Order Comment: Speci men Type: VENOUS BLOOD SPECIMENOrdering Facility: [facility] Address: [address] [place], [place] [address] Performed By: #### 2 4344-4 ####[facility] LABCLIA [id number] [address] [address] [place] Oxygen adjusted to patient's actual temperature (BldV) [Partial pressure] 45 mmHg Normal 35-45 [facility] Comment on above: Order Comment: Speci men Type: VENOUS BLOOD SPECIMENOrdering Facility: [facility] Address: [address] [place] [id number] Performed By: #### 2 4344-4 ####[facility] LABCLIA [id number] [address] [address] [place] Oxygen saturation in Venous blood 74 % Normal 60-85 [facility] Comment on above: Order Comment: Speci men Type: VENOUS BLOOD SPECIMENOrdering Facility: [facility] Address: [address] [place] [address] Performed By: #### 2 4344-4 ####[facility] LABCLIA [id number] [address] [address] [place] Oxyhemoglobin (BldV) [Mass fraction] 73 % Normal 60-85 [facility] Comment on above: Order Comment: Speci men Type: VENOUS BLOOD SPECIMENOrdering Facility: [facility] Address: [address] [place] [address] Performed By: #### 2 4344-4 ####[facility] LABIA [id number] [place] [id number] [place] pH (BldV) 7.33 [pH] Normal 7.32-7.42 [facility] Comment on above: Order Comment: Speci men Type: VENOUS BLOOD SPECIMENOrdering Facility: [facility] Address: [address] [place] [address] Performed By: #### 2 4344-4 ####[facility] LABIA [id number] [place] [address] [place] pH adjusted to patient's actual temperature (BldV) 7.33 Normal 7.32-7.42 [facility] Comment on above: Order Comment: Speci men Type: VENOUS BLOOD SPECIMENOrdering Facility: [facility] Address: [address] [place] [address] Performed By: #### 2 4344-4 ####[facility] LABIA [id number] [place] [address] [place] Potassium [Moles/Vol] 3.7 mmol/L Normal 3.5-5.[address] [facility] Comment on above: Order Comment: Speci men Type: VENOUS BLOOD SPECIMENOrdering Facility: [facility] Address: [address] [place] [address] Performed By: #### 2 4344-4 ####[facility] LABIA [id number] [place] [address] [place] Sodium [Moles/Vol] 139 mmol/L Normal 136-144 [facility] Comment on above: Order Comment: Speci men Type: VENOUS BLOOD SPECIMENOrdering Facility: [facility] Address: [address] [place] [address] Performed By: #### 2 4344-4 ####[facility] LABCLIA [id number] [place] [address] [place] BASE DEFICIT, VENOUS -5 mmol/L Low -2-0 [facility] Comment on above: Order Comment: Speci men Type: VENOUS BLOOD SPECIMENOrdering Facility: [facility] Address: [address] [place] [address] Performed By: #### 2 4344-4 ####[facility] LABIA [id number] [place] [address] [place] Calcium.ionized (Bld) [Mass/Vol] 1.14 mmol/L Normal 1.08-1.30 [facility] Comment on above: Order Comment: Speci men Type: VENOUS BLOOD SPECIMENOrdering Facility: [facility] Address: [address] [place] [address] Performed By: #### 2 4344-4 ####[facility] LABIA [id number] [place] [address] [place] Calcium.ionized adjusted to pH 7.4 (BldA) [Moles/Vol] 1.10 mmol/L Normal 1.08-1.30 [facility] Comment on above: Order Comment: Speci men Type: VENOUS BLOOD SPECIMENOrdering Facility: [facility] Address: [address] [place] [address] Performed By: #### 2 4344-4 ####[facility] LABIA [id number] [place] [address] [place] Carboxyhemoglobin (BldV) [Mass fraction] 1.0 % Normal 0.0-2.0 [facility] Comment on above: Order Comment: Speci men Type: VENOUS BLOOD SPECIMENOrdering Facility: [facility] Address: [address] [place] [address] Result Comment: Carb oxyhemoglobin Reference Range for Smokers: 2.0-8.0% Performed By: #### 2 4344-4 ####[facility] LABCLIA [id number] [place] [address] [place] CO2 (BldV) [Partial pressure] 37 mm[Hg] Low 42-55 [facility] Comment on above: Order Comment: Speci men Type: VENOUS BLOOD SPECIMENOrdering Facility: [facility] Address: [address] [place] [address] Performed By: #### 2 4344-4 ####[facility] LABCLIA [id number] [place] [address] [place] CO2 adjusted to patient's actual temperature (BldV) [Partial pressure] 37 mmHg Low 42-55 [facility] Comment on above: Order Comment: Speci men Type: VENOUS BLOOD SPECIMENOrdering Facility: [facility] Address: [address] [place] [address] Performed By: #### 2 4344-4 ####[facility] LABCLIA [id number] [place] [address] [place] Glucose [Mass/Vol] 144 mg/dL High 60-105 [facility] Comment on above: Order Comment: Speci men Type: VENOUS BLOOD SPECIMENOrdering Facility: [facility] Address: [address] [place] [address] Performed By: #### 2 4344-4 ####[facility] LABCLIA [id number] [place] [address] [place] HCO3 (Bld) [Moles/Vol] 19 mmol/L Low 24-28 [facility] Comment on above: Order Comment: Speci men Type: VENOUS BLOOD SPECIMENOrdering Facility: [facility] Address: [address] [place] [address] Performed By: #### 2 4344-4 ####[facility] LABCLIA [id number] [place] [address] [place] Hematocrit (Bld) [Volume fraction] 24.7 % Low 36.0-46.0 [facility] Comment on above: Order Comment: Speci men Type: VENOUS BLOOD SPECIMENOrdering Facility: [facility] Address: [address] [place] [address] Performed By: #### 2 4344-4 ####[facility] LABCLIA [id number] [place] [address] [place] Hemoglobin (Bld) [Mass/Vol] 7.9 g/dL Low 11.5-15.5 [facility] Comment on above: Order Comment: Speci men Type: VENOUS BLOOD SPECIMENOrdering Facility: [facility] Address: [address] [place] [address] Performed By: #### 2 4344-4 ####[facility] LABCLIA [id number] [place] [address] [place] Lactate [Moles/Vol] 0.8 mmol/L Normal 0.5-2.2 [facility] Comment on above: Order Comment: Speci men Type: VENOUS BLOOD SPECIMENOrdering Facility: [facility] Address: [address] [place] [address] Performed By: #### 2 4344-4 ####[facility] LABIA [id number] [place] [address] [place] Methemoglobin (Bld) [Mass fraction] 0.8 % Normal 0.0-1.5 [facility] Comment on above: Order Comment: Speci men Type: VENOUS BLOOD SPECIMENOrdering Facility: [facility] Address: [address] [place] [address] Performed By: #### 2 4344-4 ####[facility] LABIA [id number] [place] [address] [place] Oxygen (BldV) [Partial pressure] 45 mm[Hg] Normal 35-45 [facility] Comment on above: Order Comment: Speci men Type: VENOUS BLOOD SPECIMENOrdering Facility: [facility] Address: [address] [place] [address] Performed By: #### 2 4344-4 ####[facility] LABCLIA [id number] [address] [address] [place] Oxygen adjusted to patient's actual temperature (BldV) [Partial pressure] 46 mmHg High 35-45 [facility] Comment on above: Order Comment: Speci men Type: VENOUS BLOOD SPECIMENOrdering Facility: [facility] Address: [address] [place] [address] Performed By: #### 2 4344-4 ####[facility] LABCLIA [id number] [place] [address] [place] Oxygen saturation in Venous blood 75 % Normal 60-85 [facility] Comment on above: Order Comment: Speci men Type: VENOUS BLOOD SPECIMENOrdering Facility: [facility] Address: [address] [place] [address] Performed By: #### 2 4344-4 ####[facility] LABCLIA [id number] [place] [address] [place] Oxyhemoglobin (BldV) [Mass fraction] 74 % Normal 60-85 [facility] Comment on above: Order Comment: Speci men Type: VENOUS BLOOD SPECIMENOrdering Facility: [facility] Address: [address] [place] [address] Performed By: #### 2 4344-4 ####[facility] LABCLIA [id number] [place] [address] [place] pH (BldV) 7.34 [pH] Normal 7.32-7.42 [facility] Comment on above: Order Comment: Speci men Type: VENOUS BLOOD SPECIMENOrdering Facility: [facility] Address: [address] [place], [place] [address] Performed By: #### 2 4344-4 ####[facility] LABCLIA [id number] [place] [address] [place] pH adjusted to patient's actual temperature (BldV) 7.33 Normal 7.32-7.42 [facility] Comment on above: Order Comment: Speci men Type: VENOUS BLOOD SPECIMENOrdering Facility: [facility] Address: [address] [place] [address] Performed By: #### 2 4344-4 ####[facility] LABCLIA [id number] [place] [address] [place] Potassium [Moles/Vol] 3.9 mmol/L Normal 3.5-5.[address] [facility] Comment on above: Order Comment: Speci men Type: VENOUS BLOOD SPECIMENOrdering Facility: [facility] Address: [address] [place] [address] Performed By: #### 2 4344-4 ####[facility] LABCLIA [id number] [place] [address] [place] Sodium [Moles/Vol] 138 mmol/L Normal 136-144 [facility] Comment on above: Order Comment: Speci men Type: VENOUS BLOOD SPECIMENOrdering Facility: [facility] Address: [address] [place] [address] Performed By: #### 2 4344-4 ####[facility] LABCLIA [id number] [place] [address] [place] BASE DEFICIT, VENOUS -3 mmol/L Low -2-0 [facility] Comment on above: Order Comment: Speci men Type: VENOUS BLOOD SPECIMENOrdering Facility: [facility] Address: [address] [place] [address] Performed By: #### 2 4344-4 ####[facility] LABCLIA [id number] [place] [address] [place] Calcium.ionized (Bld) [Mass/Vol] 1.11 mmol/L Normal 1.08-1.30 [facility] Comment on above: Order Comment: Speci men Type: VENOUS BLOOD SPECIMENOrdering Facility: [facility] Address: [address] [place] [address] Performed By: #### 2 4344-4 ####[facility] LABIA [id number] [place] [address] [place] Calcium.ionized adjusted to pH 7.4 (BldA) [Moles/Vol] 1.07 mmol/L Low 1.08-1.30 [facility] Comment on above: Order Comment: Speci men Type: VENOUS BLOOD SPECIMENOrdering Facility: [facility] Address: [address] [place] [address] Performed By: #### 2 4344-4 ####[facility] LABIA [id number] [place] [address] [place] Carboxyhemoglobin (BldV) [Mass fraction] 1.1 % Normal 0.0-2.0 [facility] Comment on above: Order Comment: Speci men Type: VENOUS BLOOD SPECIMENOrdering Facility: [facility] Address: [address] [place] [address] Result Comment: Carb oxyhemoglobin Reference Range for Smokers: 2.0-8.0% Performed By: #### 2 4344-4 ####[facility] LABIA [id number] [place] [address] [place] CO2 (BldV) [Partial pressure] 44 mm[Hg] Normal 42-55 [facility] Comment on above: Order Comment: Speci men Type: VENOUS BLOOD SPECIMENOrdering Facility: [facility] Address: [address] [place] [address] Performed By: #### 2 4344-4 ####[facility] LABIA [id number] [place] [address] [place] CO2 adjusted to patient's actual temperature (BldV) [Partial pressure] 45 mmHg Normal 42-55 [facility] Comment on above: Order Comment: Speci men Type: VENOUS BLOOD SPECIMENOrdering Facility: [facility] Address: [address] [place] [address] Performed By: #### 2 4344-4 ####[facility] LABCLIA [id number] [place] [address] [place] Glucose [Mass/Vol] 120 mg/dL High 60-105 [facility] Comment on above: Order Comment: Speci men Type: VENOUS BLOOD SPECIMENOrdering Facility: [facility] Address: [address] [place] [address] Performed By: #### 2 4344-4 ####[facility] LABCLIA [id number] [place] [address] [place] HCO3 (Bld) [Moles/Vol] 22 mmol/L Low 24-28 [facility] Comment on above: Order Comment: Speci men Type: VENOUS BLOOD SPECIMENOrdering Facility: [facility] Address: [address] [place] [address] Performed By: #### 2 4344-4 ####[facility] LABCLIA [id number] [place] [address] [place] Hematocrit (Bld) [Volume fraction] 24.5 % Low 36.0-46.0 [facility] Comment on above: Order Comment: Speci men Type: VENOUS BLOOD SPECIMENOrdering Facility: [facility] Address: [address] [place] [address] Performed By: #### 2 4344-4 ####[facility] LABCLIA [id number] [place] [address] [place] Hemoglobin (Bld) [Mass/Vol] 7.9 g/dL Low 11.5-15.5 [facility] Comment on above: Order Comment: Speci men Type: VENOUS BLOOD SPECIMENOrdering Facility: [facility] Address: [address] [place] [address] Performed By: #### 2 4344-4 ####[facility] LABCLIA [id number] [place] [address] [place] Lactate [Moles/Vol] 1.1 mmol/L Normal 0.5-2.2 [facility] Comment on above: Order Comment: Speci men Type: VENOUS BLOOD SPECIMENOrdering Facility: [facility] Address: [address] [place] [address] Performed By: #### 2 4344-4 ####[facility] LABCLIA [id number] [place] [address] [place] Methemoglobin (Bld) [Mass fraction] 0.5 % Normal 0.0-1.5 [facility] Comment on above: Order Comment: Speci men Type: VENOUS BLOOD SPECIMENOrdering Facility: [facility] Address: [address] [place] [address] Performed By: #### 2 4344-4 ####[facility] LABCLIA [id number] [address] [place] O2 THERAPY Hi-Flow Nasal Cannula-Heated Normal [facility] Comment on above: Order Comment: Speci men Type: VENOUS BLOOD SPECIMENOrdering Facility: [facility] Address: [address] [place] [address] Performed By: #### 2 4344-4 ####[facility] LABCLIA [id number] [place] [address] [place] Oxygen (BldV) [Partial pressure] 40 mm[Hg] Normal 35-45 [facility] Comment on above: Order Comment: Speci men Type: VENOUS BLOOD SPECIMENOrdering Facility: [facility] Address: [address] [place] [address] Performed By: #### 2 4344-4 ####[facility] LABCLIA [id number] [place] [address] [place] Oxygen adjusted to patient's actual temperature (BldV) [Partial pressure] 42 mmHg Normal 35-45 [facility] Comment on above: Order Comment: Speci men Type: VENOUS BLOOD SPECIMENOrdering Facility: [facility] Address: [address] [place] [address] Performed By: #### 2 4344-4 ####[facility] LABCLIA [id number] [address] [address] [place] Oxygen saturation in Venous blood 66 % Normal 60-85 [facility] Comment on above: Order Comment: Speci men Type: VENOUS BLOOD SPECIMENOrdering Facility: [facility] Address: [address] [place], [place] [address] Performed By: #### 2 4344-4 ####[facility] LABCLIA [id number] [address] [address] [place] Oxyhemoglobin (BldV) [Mass fraction] 65 % Normal 60-85 [facility] Comment on above: Order Comment: Speci men Type: VENOUS BLOOD SPECIMENOrdering Facility: [facility] Address: [address] [place] [address] Performed By: #### 2 4344-4 ####[facility] LABIA [id number] [place] [address] [place] pH (BldV) 7.33 [pH] Normal 7.32-7.42 [facility] Comment on above: Order Comment: Speci men Type: VENOUS BLOOD SPECIMENOrdering Facility: [facility] Address: [address] [place] [address] Performed By: #### 2 4344-4 ####[facility] LABCLIA [id number] [place] [address] [place] pH adjusted to patient's actual temperature (BldV) 7.32 Normal 7.32-7.42 [facility] Comment on above: Order Comment: Speci men Type: VENOUS BLOOD SPECIMENOrdering Facility: [facility] Address: [address] [place], [place] [address] Performed By: #### 2 4344-4 ####[facility] LABCLIA [id number] [place] [address] [place] Potassium [Moles/Vol] 3.8 mmol/L Normal 3.5-5.[address] [facility] Comment on above: Order Comment: Speci men Type: VENOUS BLOOD SPECIMENOrdering Facility: [facility] Address: [address] [place] [address] Performed By: #### 2 4344-4 ####[facility] LABCLIA [id number] [place] [address] [place] Sodium [Moles/Vol] 138 mmol/L Normal 136-144 [facility] Comment on above: Order Comment: Speci men Type: VENOUS BLOOD SPECIMENOrdering Facility: [facility] Address: [address] [place] [address] Performed By: #### 2 4344-4 ####[facility] LABCLIA [id number] [place] [address] [place] BASE DEFICIT, VENOUS -2 mmol/L Normal -2-0 [facility] Comment on above: Order Comment: Speci men Type: VENOUS BLOOD SPECIMENOrdering Facility: [facility] Address: [address] [place] [address] Performed By: #### 2 4344-4 ####[facility] LABCLIA [id number] [place] [address] [place] Calcium.ionized (Bld) [Mass/Vol] 1.16 mmol/L Normal 1.08-1.30 [facility] Comment on above: Order Comment: Speci men Type: VENOUS BLOOD SPECIMENOrdering Facility: [facility] Address: [address] [place] [address] Performed By: #### 2 4344-4 ####[facility] LABCLIA [id number] [place] [address] [place] Calcium.ionized adjusted to pH 7.4 (BldA) [Moles/Vol] 1.14 mmol/L Normal 1.08-1.30 [facility] Comment on above: Order Comment: Speci men Type: VENOUS BLOOD SPECIMENOrdering Facility: [facility] Address: [address] [place] [id number] Performed By: #### 2 4344-4 ####[facility] LABCLIA [id number] [address] [address] [place] Carboxyhemoglobin (BldV) [Mass fraction] 1.3 % Normal 0.0-2.0 [facility] Comment on above: Order Comment: Speci men Type: VENOUS BLOOD SPECIMENOrdering Facility: [facility] Address: [address] [place] [id number] Result Comment: Carb oxyhemoglobin Reference Range for Smokers: 2.0-8.0% Performed By: #### 2 4344-4 ####[facility] LABCLIA [id number] [place] [address] [place] CO2 (BldV) [Partial pressure] 42 mm[Hg] Normal 42-55 [facility] Comment on above: Order Comment: Speci men Type: VENOUS BLOOD SPECIMENOrdering Facility: [facility] Address: [address] [place], [place] [address] Performed By: #### 2 4344-4 ####[facility] LABCLIA [id number] [place] [address] [place] CO2 adjusted to patient's actual temperature (BldV) [Partial pressure] 44 mmHg Normal 42-55 [facility] Comment on above: Order Comment: Speci men Type: VENOUS BLOOD SPECIMENOrdering Facility: [facility] Address: [address] [place], [place] [address] Performed By: #### 2 4344-4 ####[facility] LABCLIA [id number] [place] [address] [place] Glucose [Mass/Vol] 75 mg/dL Normal 60-105 [facility] Comment on above: Order Comment: Speci men Type: VENOUS BLOOD SPECIMENOrdering Facility: [facility] Address: [address] [place] [address] Performed By: #### 2 4344-4 ####[facility] LABCLIA [id number] [place] [address] [place] Hematocrit (Bld) [Volume fraction] 26.6 % Low 36.0-46.0 [facility] Comment on above: Order Comment: Speci men Type: VENOUS BLOOD SPECIMENOrdering Facility: [facility] Address: [address] [place] [address] Performed By: #### 2 4344-4 ####[facility] LABIA [id number] [place] [address] [place] Hemoglobin (Bld) [Mass/Vol] 8.6 g/dL Low 11.5-15.5 [facility] Comment on above: Order Comment: Speci men Type: VENOUS BLOOD SPECIMENOrdering Facility: [facility] Address: [address] [place] [address] Performed By: #### 2 4344-4 ####[facility] LABIA [id number] [place] [address] [place] Lactate [Moles/Vol] 1.1 mmol/L Normal 0.5-2.2 [facility] Comment on above: Order Comment: Speci men Type: VENOUS BLOOD SPECIMENOrdering Facility: [facility] Address: [address] [place] [address] Performed By: #### 2 4344-4 ####[facility] LABIA [id number] [place] [address] [place] Methemoglobin (Bld) [Mass fraction] 1.3 % Normal 0.0-1.5 [facility] Comment on above: Order Comment: Speci men Type: VENOUS BLOOD SPECIMENOrdering Facility: [facility] Address: [address] [place] [address] Performed By: #### 2 4344-4 ####[facility] LABIA [id number] [place] [address] [place] Oxygen (BldV) [Partial pressure] 43 mm[Hg] Normal 35-45 [facility] Comment on above: Order Comment: Speci men Type: VENOUS BLOOD SPECIMENOrdering Facility: [facility] Address: [address] [place] [address] Performed By: #### 2 4344-4 ####[facility] LABCLIA [id number] [place] [address] [place] Oxygen adjusted to patient's actual temperature (BldV) [Partial pressure] 45 mmHg Normal 35-45 [facility] Comment on above: Order Comment: Speci men Type: VENOUS BLOOD SPECIMENOrdering Facility: [facility] Address: [address] [place] [address] Performed By: #### 2 4344-4 ####[facility] LABCLIA [id number] [place] [address] [place] Oxygen saturation in Venous blood 72 % Normal 60-85 [facility] Comment on above: Order Comment: Speci men Type: VENOUS BLOOD SPECIMENOrdering Facility: [facility] Address: [address] [place] [address] Performed By: #### 2 4344-4 ####[facility] LABCLIA [id number] [place] [address] [place] Oxyhemoglobin (BldV) [Mass fraction] 70 % Normal 60-85 [facility] Comment on above: Order Comment: Speci men Type: VENOUS BLOOD SPECIMENOrdering Facility: [facility] Address: [address] [place], [place] [id number] Performed By: #### 2 4344-4 ####[facility] LABCLIA [id number] [place] [address] [place] pH (BldV) 7.35 [pH] Normal 7.32-7.42 [facility] Comment on above: Order Comment: Speci men Type: VENOUS BLOOD SPECIMENOrdering Facility: [facility] Address: [address] [place] [address] Performed By: #### 2 4344-4 ####[facility] LABCLIA [id number] [place] [address] [place] pH adjusted to patient's actual temperature (BldV) 7.34 Normal 7.32-7.42 [facility] Comment on above: Order Comment: Speci men Type: VENOUS BLOOD SPECIMENOrdering Facility: [facility] Address: [address] [place] [address] Performed By: #### 2 4344-4 ####[facility] LABCLIA [id number] [place] [address] [place] Potassium [Moles/Vol] 3.6 mmol/L Normal 3.5-5.[address] [facility] Comment on above: Order Comment: Speci men Type: VENOUS BLOOD SPECIMENOrdering Facility: [facility] Address: [address] [place] [address] Performed By: #### 2 4344-4 ####[facility] LABIA [id number] [place] [address] [place] Sodium [Moles/Vol] 139 mmol/L Normal 136-144 [facility] Comment on above: Order Comment: Speci men Type: VENOUS BLOOD SPECIMENOrdering Facility: [facility] Address: [address] [place] [address] Performed By: #### 2 4344-4 ####[facility] LABCLIA [id number] [place] [address] [place] BASE DEFICIT, VENOUS -3 mmol/L Low -2-0 [facility] Comment on above: Order Comment: Speci men Type: VENOUS BLOOD SPECIMENOrdering Facility: [facility] Address: [address] [place] [address] Performed By: #### 2 4344-4 ####[facility] LABCLIA [id number] [place] [address] [place] Calcium.ionized (Bld) [Mass/Vol] 1.15 mmol/L Normal 1.08-1.30 [facility] Comment on above: Order Comment: Speci men Type: VENOUS BLOOD SPECIMENOrdering Facility: [facility] Address: [address] [place] [address] Performed By: #### 2 4344-4 ####[facility] LABIA [id number] [place] [address] [place] Calcium.ionized adjusted to pH 7.4 (BldA) [Moles/Vol] 1.10 mmol/L Normal 1.08-1.30 [facility] Comment on above: Order Comment: Speci men Type: VENOUS BLOOD SPECIMENOrdering Facility: [facility] Address: [address] [place] [address] Performed By: #### 2 4344-4 ####[facility] LABIA [id number] [place] [address] [place] Carboxyhemoglobin (BldV) [Mass fraction] 1.2 % Normal 0.0-2.0 [facility] Comment on above: Order Comment: Speci men Type: VENOUS BLOOD SPECIMENOrdering Facility: [facility] Address: [address] [place] [address] Result Comment: Carb oxyhemoglobin Reference Range for Smokers: 2.0-8.0% Performed By: #### 2 4344-4 ####[facility] LABIA [id number] [place] [address] [place] CO2 (BldV) [Partial pressure] 44 mm[Hg] Normal 42-55 [facility] Comment on above: Order Comment: Speci men Type: VENOUS BLOOD SPECIMENOrdering Facility: [facility] Address: [address] [place] [address] Performed By: #### 2 4344-4 ####[facility] LABIA [id number] [place] [address] [place] CO2 adjusted to patient's actual temperature (BldV) [Partial pressure] 45 mmHg Normal 42-55 [facility] Comment on above: Order Comment: Speci men Type: VENOUS BLOOD SPECIMENOrdering Facility: [facility] Address: [address] [place] [address] Performed By: #### 2 4344-4 ####[facility] LABCLIA [id number] [place] [address] [place] Glucose [Mass/Vol] 103 mg/dL Normal 60-105 [facility] Comment on above: Order Comment: Speci men Type: VENOUS BLOOD SPECIMENOrdering Facility: [facility] Address: [address] [place] [address] Performed By: #### 2 4344-4 ####[facility] LABCLIA [id number] [place] [address] [place] HCO3 (Bld) [Moles/Vol] 22 mmol/L Low 24-28 [facility] Comment on above: Order Comment: Speci men Type: VENOUS BLOOD SPECIMENOrdering Facility: [facility] Address: [address] [place] [address] Performed By: #### 2 4344-4 ####[facility] LABCLIA [id number] [place] [address] [place] Hematocrit (Bld) [Volume fraction] 26.1 % Low 36.0-46.0 [facility] Comment on above: Order Comment: Speci men Type: VENOUS BLOOD SPECIMENOrdering Facility: [facility] Address: [address] [place] [address] Performed By: #### 2 4344-4 ####[facility] LABCLIA [id number] [place] [address] [place] Hemoglobin (Bld) [Mass/Vol] 8.4 g/dL Low 11.5-15.5 [facility] Comment on above: Order Comment: Speci men Type: VENOUS BLOOD SPECIMENOrdering Facility: [facility] Address: [address] [id number] Performed By: #### 2 4344-4 ####[facility] LABCLIA [id number] [place] [address] [place] Lactate [Moles/Vol] 1.2 mmol/L Normal 0.5-2.2 [facility] Comment on above: Order Comment: Speci men Type: VENOUS BLOOD SPECIMENOrdering Facility: [facility] Address: [address] [place] [address] Performed By: #### 2 4344-4 ####[facility] LABCLIA [id number] [place] [address] [place] Methemoglobin (Bld) [Mass fraction] 1.2 % Normal 0.0-1.5 [facility] Comment on above: Order Comment: Speci men Type: VENOUS BLOOD SPECIMENOrdering Facility: [facility] Address: [address] [place] [address] Performed By: #### 2 4344-4 ####[facility] LABCLIA [id number] [place] [address] [place] Oxygen (BldV) [Partial pressure] 39 mm[Hg] Normal 35-45 [facility] Comment on above: Order Comment: Speci men Type: VENOUS BLOOD SPECIMENOrdering Facility: [facility] Address: [address] [place], [place] [address] Performed By: #### 2 4344-4 ####[facility] LABCLIA [id number] [place] [id number] [place] Oxygen adjusted to patient's actual temperature (BldV) [Partial pressure] 40 mmHg Normal 35-45 [facility] Comment on above: Order Comment: Speci men Type: VENOUS BLOOD SPECIMENOrdering Facility: [facility] Address: [address] [place], [place] [address] Performed By: #### 2 4344-4 ####[facility] LABCLIA [id number] [address] [address] [place] Oxygen saturation in Venous blood 64 % Normal 60-85 [facility] Comment on above: Order Comment: Speci men Type: VENOUS BLOOD SPECIMENOrdering Facility: [facility] Address: [address] [place], [place] [address] Performed By: #### 2 4344-4 ####[facility] LABCLIA [id number] [place] [address] [place] Oxyhemoglobin (BldV) [Mass fraction] 62 % Normal 60-85 [facility] Comment on above: Order Comment: Speci men Type: VENOUS BLOOD SPECIMENOrdering Facility: [facility] Address: [address] [place] [address] Performed By: #### 2 4344-4 ####[facility] LABCLIA [id number] [place] [address] [place] pH (BldV) 7.33 [pH] Normal 7.32-7.42 [facility] Comment on above: Order Comment: Speci men Type: VENOUS BLOOD SPECIMENOrdering Facility: [facility] Address: [address] [place] [address] Performed By: #### 2 4344-4 ####[facility] LABCLIA [id number] [place] [address] [place] pH adjusted to patient's actual temperature (BldV) 7.32 Normal 7.32-7.42 [facility] Comment on above: Order Comment: Speci men Type: VENOUS BLOOD SPECIMENOrdering Facility: [facility] Address: [address] [place] [address] Performed By: #### 2 4344-4 ####[facility] LABCLIA [id number] [place] [id number] [place] Potassium [Moles/Vol] 3.4 mmol/L Low 3.5-5.[address] [facility] Comment on above: Order Comment: Speci men Type: VENOUS BLOOD SPECIMENOrdering Facility: [facility] Address: [address] [place] [address] Performed By: #### 2 4344-4 ####[facility] LABCLIA [id number] [place] [address] [place] Sodium [Moles/Vol] 139 mmol/L Normal 136-144 [facility] Comment on above: Order Comment: Speci men Type: VENOUS BLOOD SPECIMENOrdering Facility: [facility] Address: [address] [place] [address] Performed By: #### 2 4344-4 ####[facility] LABCLIA [id number] [place] [address] [place] BASE DEFICIT, VENOUS -3 mmol/L Low -2-0 [facility] Comment on above: Order Comment: Speci men Type: VENOUS BLOOD SPECIMENOrdering Facility: [facility] Address: [address] [place] [address] Performed By: #### 2 4344-4 ####[facility] LABCLIA [id number] [place] [address] [place] Calcium.ionized (Bld) [Mass/Vol] 1.14 mmol/L Normal 1.08-1.30 [facility] Comment on above: Order Comment: Speci men Type: VENOUS BLOOD SPECIMENOrdering Facility: [facility] Address: [address] [place] [address] Performed By: #### 2 4344-4 ####[facility] LABIA [id number] [place] [address] [place] Calcium.ionized adjusted to pH 7.4 (BldA) [Moles/Vol] 1.11 mmol/L Normal 1.08-1.30 [facility] Comment on above: Order Comment: Speci men Type: VENOUS BLOOD SPECIMENOrdering Facility: [facility] Address: [address] [place] [address] Performed By: #### 2 4344-4 ####[facility] LABCLIA [id number] [place] [address] [place] Carboxyhemoglobin (BldV) [Mass fraction] 1.1 % Normal 0.0-2.0 [facility] Comment on above: Order Comment: Speci men Type: VENOUS BLOOD SPECIMENOrdering Facility: [facility] Address: [address] [place] [address] Result Comment: Carb oxyhemoglobin Reference Range for Smokers: 2.0-8.0% Performed By: #### 2 4344-4 ####[facility] LABCLIA [id number] [place] [address] [place] CO2 (BldV) [Partial pressure] 42 mm[Hg] Normal 42-55 [facility] Comment on above: Order Comment: Speci men Type: VENOUS BLOOD SPECIMENOrdering Facility: [facility] Address: [address] [place] [address] Performed By: #### 2 4344-4 ####[facility] LABCLIA [id number] [place] [address] [place] CO2 adjusted to patient's actual temperature (BldV) [Partial pressure] 43 mmHg Normal 42-55 [facility] Comment on above: Order Comment: Speci men Type: VENOUS BLOOD SPECIMENOrdering Facility: [facility] Address: [address] [place] [address] Performed By: #### 2 4344-4 ####[facility] LABCLIA [id number] [place] [address] [place] Glucose [Mass/Vol] 140 mg/dL High 60-105 [facility] Comment on above: Order Comment: Speci men Type: VENOUS BLOOD SPECIMENOrdering Facility: [facility] Address: [address] [place] [address] Performed By: #### 2 4344-4 ####[facility] LABCLIA [id number] [place] [address] [place] HCO3 (Bld) [Moles/Vol] 22 mmol/L Low 24-28 [facility] Comment on above: Order Comment: Speci men Type: VENOUS BLOOD SPECIMENOrdering Facility: [facility] Address: [address] [place] [address] Performed By: #### 2 4344-4 ####[facility] LABCLIA [id number] [place] [address] [place] Hematocrit (Bld) [Volume fraction] 25.4 % Low 36.0-46.0 [facility] Comment on above: Order Comment: Speci men Type: VENOUS BLOOD SPECIMENOrdering Facility: [facility] Address: [address] [place] [address] Performed By: #### 2 4344-4 ####[facility] LABIA [id number] [place] [address] [place] Hemoglobin (Bld) [Mass/Vol] 8.2 g/dL Low 11.5-15.5 [facility] Comment on above: Order Comment: Speci men Type: VENOUS BLOOD SPECIMENOrdering Facility: [facility] Address: [address] [place] [address] Performed By: #### 2 4344-4 ####[facility] LABIA [id number] [place] [address] [place] Lactate [Moles/Vol] 1.2 mmol/L Normal 0.5-2.2 [facility] Comment on above: Order Comment: Speci men Type: VENOUS BLOOD SPECIMENOrdering Facility: [facility] Address: [address] [place] [address] Performed By: #### 2 4344-4 ####[facility] LABCLIA [id number] [place] [address] [place] Methemoglobin (Bld) [Mass fraction] 1.0 % Normal 0.0-1.5 [facility] Comment on above: Order Comment: Speci men Type: VENOUS BLOOD SPECIMENOrdering Facility: [facility] Address: [address] [place] [address] Performed By: #### 2 4344-4 ####[facility] LABCLIA [id number] [address] [address] [place] Oxygen (BldV) [Partial pressure] 42 mm[Hg] Normal 35-45 [facility] Comment on above: Order Comment: Speci men Type: VENOUS BLOOD SPECIMENOrdering Facility: [facility] Address: [address] [place], [place] [address] Performed By: #### 2 4344-4 ####[facility] LABCLIA [id number] [address] [address] [place] Oxygen adjusted to patient's actual temperature (BldV) [Partial pressure] 43 mmHg Normal 35-45 [facility] Comment on above: Order Comment: Speci men Type: VENOUS BLOOD SPECIMENOrdering Facility: [facility] Address: [address] [place] [address] Performed By: #### 2 4344-4 ####[facility] LABCLIA [id number] [address] [address] [place] Oxygen saturation in Venous blood 70 % Normal 60-85 [facility] Comment on above: Order Comment: Speci men Type: VENOUS BLOOD SPECIMENOrdering Facility: [facility] Address: [address] [place] [address] Performed By: #### 2 4344-4 ####[facility] LABCLIA [id number] [address] [address] [place] Oxyhemoglobin (BldV) [Mass fraction] 69 % Normal 60-85 [facility] Comment on above: Order Comment: Speci men Type: VENOUS BLOOD SPECIMENOrdering Facility: [facility] Address: [address] [place] [address] Performed By: #### 2 4344-4 ####[facility] LABCLIA [id number] [place] [address] [place] pH (BldV) 7.34 [pH] Normal 7.32-7.42 [facility] Comment on above: Order Comment: Speci men Type: VENOUS BLOOD SPECIMENOrdering Facility: [facility] Address: [address] [place] [address] Performed By: #### 2 4344-4 ####[facility] LABCLIA [id number] [place] [address] [place] pH adjusted to patient's actual temperature (BldV) 7.33 Normal 7.32-7.42 [facility] Comment on above: Order Comment: Speci men Type: VENOUS BLOOD SPECIMENOrdering Facility: [facility] Address: [address] [place] [address] Performed By: #### 2 4344-4 ####[facility] LABIA [id number] [place] [address] [place] Potassium [Moles/Vol] 3.2 mmol/L Low 3.5-5.[address] [facility] Comment on above: Order Comment: Speci men Type: VENOUS BLOOD SPECIMENOrdering Facility: [facility] Address: [address] [place] [address] Performed By: #### 2 4344-4 ####[facility] LABIA [id number] [place] [address] [place] Sodium [Moles/Vol] 139 mmol/L Normal 136-144 [facility] Comment on above: Order Comment: Speci men Type: VENOUS BLOOD SPECIMENOrdering Facility: [facility] Address: [address] [place] [address] Performed By: #### 2 4344-4 ####[facility] LABCLIA [id number] [place] [address] [place] BASE DEFICIT, VENOUS -3 mmol/L Low -2-0 [facility] Comment on above: Order Comment: Speci men Type: VENOUS BLOOD SPECIMENOrdering Facility: [facility] Address: [address] [place] [address] Performed By: #### 2 4344-4 ####[facility] LABCLIA [id number] [place] [address] [place] Calcium.ionized (Bld) [Mass/Vol] 1.16 mmol/L Normal 1.08-1.30 [facility] Comment on above: Order Comment: Speci men Type: VENOUS BLOOD SPECIMENOrdering Facility: [facility] Address: [address] [place] [address] Performed By: #### 2 4344-4 ####[facility] LABCLIA [id number] [place] [address] [place] Calcium.ionized adjusted to pH 7.4 (BldA) [Moles/Vol] 1.10 mmol/L Normal 1.08-1.30 [facility] Comment on above: Order Comment: Speci men Type: VENOUS BLOOD SPECIMENOrdering Facility: [facility] Address: [address] [place] [address] Performed By: #### 2 4344-4 ####[facility] LABCLIA [id number] [place] [address] [place] Carboxyhemoglobin (BldV) [Mass fraction] 1.3 % Normal 0.0-2.0 [facility] Comment on above: Order Comment: Speci men Type: VENOUS BLOOD SPECIMENOrdering Facility: [facility] Address: [address] [place] [address] Result Comment: Carb oxyhemoglobin Reference Range for Smokers: 2.0-8.0% Performed By: #### 2 4344-4 ####[facility] LABCLIA [id number] [place] [address] [place] CO2 (BldV) [Partial pressure] 47 mm[Hg] Normal 42-55 [facility] Comment on above: Order Comment: Speci men Type: VENOUS BLOOD SPECIMENOrdering Facility: [facility] Address: [address] [place] [id number] Performed By: #### 2 4344-4 ####[facility] LABCLIA [id number] [address] [address] [place] CO2 adjusted to patient's actual temperature (BldV) [Partial pressure] 49 mmHg Normal 42-55 [facility] Comment on above: Order Comment: Speci men Type: VENOUS BLOOD SPECIMENOrdering Facility: [facility] Address: [address] [place] [address] Performed By: #### 2 4344-4 ####[facility] LABCLIA [id number] [place] [address] [place] Glucose [Mass/Vol] 212 mg/dL High 60-105 [facility] Comment on above: Order Comment: Speci men Type: VENOUS BLOOD SPECIMENOrdering Facility: [facility] Address: [address] [place] [address] Performed By: #### 2 4344-4 ####[facility] LABCLIA [id number] [place] [address] [place] HCO3 (Bld) [Moles/Vol] 23 mmol/L Low 24-28 [facility] Comment on above: Order Comment: Speci men Type: VENOUS BLOOD SPECIMENOrdering Facility: [facility] Address: [address] [place], [place] [address] Performed By: #### 2 4344-4 ####[facility] LABCLIA [id number] [place] [address] [place] Hematocrit (Bld) [Volume fraction] 27.1 % Low 36.0-46.0 [facility] Comment on above: Order Comment: Speci men Type: VENOUS BLOOD SPECIMENOrdering Facility: [facility] Address: [address] [place], [place] [address] Performed By: #### 2 4344-4 ####[facility] LABCLIA [id number] [place] [address] [place] Lactate [Moles/Vol] 1.1 mmol/L Normal 0.5-2.2 [facility] Comment on above: Order Comment: Speci men Type: VENOUS BLOOD SPECIMENOrdering Facility: [facility] Address: [address] [place] [address] Performed By: #### 2 4344-4 ####[facility] LABIA [id number] [place] [address] [place] Methemoglobin (Bld) [Mass fraction] 1.6 % High 0.0-1.5 [facility] Comment on above: Order Comment: Speci men Type: VENOUS BLOOD SPECIMENOrdering Facility: [facility] Address: [address] [place] [address] Performed By: #### 2 4344-4 ####[facility] LABIA [id number] [place] [address] [place] Oxygen (BldV) [Partial pressure] 40 mm[Hg] Normal 35-45 [facility] Comment on above: Order Comment: Speci men Type: VENOUS BLOOD SPECIMENOrdering Facility: [facility] Address: [address] [place] [address] Performed By: #### 2 4344-4 ####[facility] LABIA [id number] [place] [address] [place] Oxygen adjusted to patient's actual temperature (BldV) [Partial pressure] 41 mmHg Normal 35-45 [facility] Comment on above: Order Comment: Speci men Type: VENOUS BLOOD SPECIMENOrdering Facility: [facility] Address: [address] [place] [address] Performed By: #### 2 4344-4 ####[facility] LABIA [id number] [place] [address] [place] Oxygen saturation in Venous blood 64 % Normal 60-85 [facility] Comment on above: Order Comment: Speci men Type: VENOUS BLOOD SPECIMENOrdering Facility: [facility] Address: [address] [place] [address] Performed By: #### 2 4344-4 ####[facility] LABCLIA [id number] [address] [address] [place] Oxyhemoglobin (BldV) [Mass fraction] 62 % Normal 60-85 [facility] Comment on above: Order Comment: Speci men Type: VENOUS BLOOD SPECIMENOrdering Facility: [facility] Address: [address] [place] [address] Performed By: #### 2 4344-4 ####[facility] LABCLIA [id number] [address] [address] [place] pH (BldV) 7.30 [pH] Low 7.32-7.42 [facility] Comment on above: Order Comment: Speci men Type: VENOUS BLOOD SPECIMENOrdering Facility: [facility] Address: [address] [place] [address] Performed By: #### 2 4344-4 ####[facility] LABCLIA [id number] [place] [address] [place] pH adjusted to patient's actual temperature (BldV) 7.29 Low 7.32-7.42 [facility] Comment on above: Order Comment: Speci men Type: VENOUS BLOOD SPECIMENOrdering Facility: [facility] Address: [address] [place], [place] [address] Performed By: #### 2 4344-4 ####[facility] LABIA [id number] [place] [address] [place] Potassium [Moles/Vol] 3.9 mmol/L Normal 3.5-5.[address] [facility] Comment on above: Order Comment: Speci men Type: VENOUS BLOOD SPECIMENOrdering Facility: [facility] Address: [address] [place] [address] Performed By: #### 2 4344-4 ####[facility] LABIA [id number] [place] [address] [place] Sodium [Moles/Vol] 137 mmol/L Normal 136-144 [facility] Comment on above: Order Comment: Speci men Type: VENOUS BLOOD SPECIMENOrdering Facility: [facility] Address: [address] [place] [address] Performed By: #### 2 4344-4 ####[facility]IA [id number] [place] [address] [place] XR CHEST 1V FRONTALon 2023 XR CHEST 1V FRONTAL Normal [facility] ANES POSTPROC EVALon 024 ANES POSTPROC EVAL Normal [facility] ARTERIAL BLOOD GASESon 10-27 Base deficit (BldA) [Moles/Vol] -3 mmol/L Low -2-0 [facility] Comment on above: Order Comment: Speci men Type: ARTERIAL BLOOD SPECIMENOrdering Facility: [facility] Address: [address] [place] [address] Performed By: #### A LLBG ####[facility]IA [id number] [place] [address] [place] [place] Calcium.ionized (Bld) [Mass/Vol] 1.21 mmol/L Normal 1.08-1.30 [facility] Comment on above: Order Comment: Speci men Type: ARTERIAL BLOOD SPECIMENOrdering Facility: [facility] Address: [address] [place] [address] Performed By: #### A LLBG ####[facility] LABIA [id number] [place] [address] [place] Calcium.ionized adjusted to pH 7.4 (BldA) [Moles/Vol] 1.14 mmol/L Normal 1.08-1.30 [facility] Comment on above: Order Comment: Speci men Type: ARTERIAL BLOOD SPECIMENOrdering Facility: [facility] Address: [address] [place] [address] Performed By: #### A LLBG ####[facility] LABCLIA [id number] [place] [address] [place] Carboxyhemoglobin (BldA) [Mass fraction] 1.6 % Normal 0.0-2.0 [facility] Comment on above: Order Comment: Speci men Type: ARTERIAL BLOOD SPECIMENOrdering Facility: [facility] Address: [address] [place] [address] Result Comment: Carb oxyhemoglobin Reference Range for Smokers: 2.0-8.0% Performed By: #### A LLBG ####[facility] LABCLIA [id number] [place] [address] [place] CO2 (Bld) [Partial pressure] 48 mm Hg High 36-46 [facility] Comment on above: Order Comment: Speci men Type: ARTERIAL BLOOD SPECIMENOrdering Facility: [facility] Address: [address] [place] [address] Performed By: #### A LLBG ####[facility] LABCLIA [id number] [place] [address] [place] CO2 adjusted to patient's actual temperature (Bld) [Partial pressure] 49 mmHg High 36-46 [facility] Comment on above: Order Comment: Speci men Type: ARTERIAL BLOOD SPECIMENOrdering Facility: [facility] Address: [address] [place] [address] Performed By: #### A LLBG ####[facility] LABCLIA [id number] [place] [address] [place] Glucose [Mass/Vol] 153 mg/dL High 60-105 [facility] Comment on above: Order Comment: Speci men Type: ARTERIAL BLOOD SPECIMENOrdering Facility: [facility] Address: [address] [place] [address] Performed By: #### A LLBG ####[facility] LABCLIA [id number] [place] [address] [place] Hematocrit (Bld) [Volume fraction] 29.7 % Low 36.0-46.0 [facility] Comment on above: Order Comment: Speci men Type: ARTERIAL BLOOD SPECIMENOrdering Facility: [facility] Address: [address] [place] [address] Performed By: #### A LLBG ####[facility] LABCLIA [id number] [place] [address] [place] Hemoglobin (Bld) [Mass/Vol] 9.6 g/dL Low 11.5-15.5 [facility] Comment on above: Order Comment: Speci men Type: ARTERIAL BLOOD SPECIMENOrdering Facility: [facility] Address: [address] [place] [address] Performed By: #### A LLBG ####[facility] LABCLIA [id number] [place] [address] [place] Methemoglobin (Bld) [Mass fraction] 0.8 % Normal 0.0-1.5 [facility] Comment on above: Order Comment: Speci men Type: ARTERIAL BLOOD SPECIMENOrdering Facility: [facility] Address: [address] [place] [address] Performed By: #### A LLBG ####[facility] LABCLIA [id number] [place] [address] [place] Oxygen (Bld) [Partial pressure] 86 mm Hg Normal 85-95 [facility] Comment on above: Order Comment: Speci men Type: ARTERIAL BLOOD SPECIMENOrdering Facility: [facility] Address: [address] [place] [address] Performed By: #### A LLBG ####[facility] LABCLIA [id number] [place] [id number] [place] Oxygen adjusted to patient's actual temperature (Bld) [Partial pressure] 89 mmHg Normal 85-95 [facility] Comment on above: Order Comment: Speci men Type: ARTERIAL BLOOD SPECIMENOrdering Facility: [facility] Address: [address] [place] [address] Performed By: #### A LLBG ####[facility] LABCLIA [id number] [place] [address] [place] Oxyhemoglobin (BldA) [Mass fraction] 94 % Low 95-98 [facility] Comment on above: Order Comment: Speci men Type: ARTERIAL BLOOD SPECIMENOrdering Facility: [facility] Address: [address] [place] [address] Performed By: #### A LLBG ####[facility] LABIA [id number] [place] [address] [place] pH (Bld) 7.29 [pH] Low 7.35-7.45 [facility] Comment on above: Order Comment: Speci men Type: ARTERIAL BLOOD SPECIMENOrdering Facility: [facility] Address: [address] [place] [address] Performed By: #### A LLBG ####[facility] LABIA [id number] [place] [address] [place] pH adjusted to patient's actual temperature (Bld) 7.28 Low 7.35-7.45 [facility] Comment on above: Order Comment: Speci men Type: ARTERIAL BLOOD SPECIMENOrdering Facility: [facility] Address: [address] [place] [address] Performed By: #### A LLBG ####[facility] LABIA [id number] [place] [address] [place] Potassium [Moles/Vol] 4.2 mmol/L Normal 3.5-5.[address] [facility] Comment on above: Order Comment: Speci men Type: ARTERIAL BLOOD SPECIMENOrdering Facility: [facility] Address: [address] [place] [address] Performed By: #### A LLBG ####[facility] LABCLIA [id number] [place] [address] [place] Base deficit (BldA) [Moles/Vol] -2 mmol/L Normal -2-0 [facility] Comment on above: Order Comment: Speci men Type: ARTERIAL BLOOD SPECIMENOrdering Facility: [facility] Address: [address] [place] [address] Performed By: #### A LLBG ####[facility] LABCLIA [id number] [place] [address] [place] Body temperature 99.68 [degF] Normal [facility] Comment on above: Order Comment: Speci men Type: ARTERIAL BLOOD SPECIMENOrdering Facility: [facility] Address: [address] [place] [address] Performed By: #### A LLBG ####[facility] LABCLIA [id number] [place] [address] [place] Order Comment: Speci men Type: VENOUS BLOOD SPECIMENOrdering Facility: [facility] Address: [address] [place] [address] Performed By: #### 2 4344-4 ####[facility] LABIA [id number] [place] [address] [place] Calcium.ionized (Bld) [Mass/Vol] 1.21 mmol/L Normal 1.08-1.30 [facility] Comment on above: Order Comment: Speci men Type: ARTERIAL BLOOD SPECIMENOrdering Facility: [facility] Address: [address] [place] [address] Performed By: #### A LLBG ####[facility] LABIA [id number] [place] [address] [place] Calcium.ionized adjusted to pH 7.4 (BldA) [Moles/Vol] 1.16 mmol/L Normal 1.08-1.30 [facility] Comment on above: Order Comment: Speci men Type: ARTERIAL BLOOD SPECIMENOrdering Facility: [facility] Address: [address] [place] [address] Performed By: #### A LLBG ####[facility] LABCLIA [id number] [place] [address] [place] Carboxyhemoglobin (BldA) [Mass fraction] 1.1 % Normal 0.0-2.0 [facility] Comment on above: Order Comment: Speci men Type: ARTERIAL BLOOD SPECIMENOrdering Facility: [facility] Address: [address] [place] [address] Result Comment: Carb oxyhemoglobin Reference Range for Smokers: 2.0-8.0% Performed By: #### A LLBG ####[facility] LABCLIA [id number] [place] [address] [place] CO2 (Bld) [Partial pressure] 45 mm Hg Normal 36-46 [facility] Comment on above: Order Comment: Speci men Type: ARTERIAL BLOOD SPECIMENOrdering Facility: [facility] Address: [address] [place] [address] Performed By: #### A LLBG ####[facility] LABCLIA [id number] [place] [address] [place] CO2 adjusted to patient's actual temperature (Bld) [Partial pressure] 47 mmHg High 36-46 [facility] Comment on above: Order Comment: Speci men Type: ARTERIAL BLOOD SPECIMENOrdering Facility: [facility] Address: [address] [place] [address] Performed By: #### A LLBG ####[facility] LABCLIA [id number] [place] [address] [place] Glucose [Mass/Vol] 120 mg/dL High 60-105 [facility] Comment on above: Order Comment: Speci men Type: ARTERIAL BLOOD SPECIMENOrdering Facility: [facility] Address: [address] [place] [address] Performed By: #### A LLBG ####[facility] LABCLIA [id number] [place] [address] [place] HCO3 (Bld) [Moles/Vol] 23 mmol/L Low 24-28 [facility] Comment on above: Order Comment: Speci men Type: ARTERIAL BLOOD SPECIMENOrdering Facility: [facility] Address: [address] [place] [address] Performed By: #### A LLBG ####[facility] LABCLIA [id number] [place] [address] [place] Order Comment: Speci men Type: VENOUS BLOOD SPECIMENOrdering Facility: [facility] Address: [address] [place] [address] Performed By: #### 2 4344-4 ####[facility] LABCLIA [id number] [place] [address] [place] Hematocrit (Bld) [Volume fraction] 30.7 % Low 36.0-46.0 [facility] Comment on above: Order Comment: Speci men Type: ARTERIAL BLOOD SPECIMENOrdering Facility: [facility] Address: [address] [place] [address] Performed By: #### A LLBG ####[facility] LABCLIA [id number] [place] [address] [place] Hemoglobin (Bld) [Mass/Vol] 9.9 g/dL Low 11.5-15.5 [facility] Comment on above: Order Comment: Speci men Type: ARTERIAL BLOOD SPECIMENOrdering Facility: [facility] Address: [address] [place] [address] Performed By: #### A LLBG ####[facility] LABCLIA [id number] [place] [address] [place] Lactate [Moles/Vol] 1.2 mmol/L Normal 0.5-2.2 [facility] Comment on above: Order Comment: Speci men Type: ARTERIAL BLOOD SPECIMENOrdering Facility: [facility] Address: [address] [place] [address] Performed By: #### A LLBG ####[facility] LABCLIA [id number] [address] [address] [place] Methemoglobin (Bld) [Mass fraction] 1.1 % Normal 0.0-1.5 [facility] Comment on above: Order Comment: Speci men Type: ARTERIAL BLOOD SPECIMENOrdering Facility: [facility] Address: [address] [place] [id number] Performed By: #### A LLBG ####[facility] LABCLIA [id number] [place] [id number] [place] O2 THERAPY Hi-Flow Nasal Cannula-Heated Normal [facility] Comment on above: Order Comment: Speci men Type: ARTERIAL BLOOD SPECIMENOrdering Facility: [facility] Address: [address] [place] [id number] Performed By: #### A LLBG ####[facility] LABCLIA [id number] [place] [id number] [place] Oxygen (Bld) [Partial pressure] 84 mm Hg Low 85-95 [facility] Comment on above: Order Comment: Speci men Type: ARTERIAL BLOOD SPECIMENOrdering Facility: [facility] Address: [address] [place] [address] Performed By: #### A LLBG ####[facility] LABCLIA [id number] [address] [address] [place] Oxygen adjusted to patient's actual temperature (Bld) [Partial pressure] 87 mmHg Normal 85-95 [facility] Comment on above: Order Comment: Speci men Type: ARTERIAL BLOOD SPECIMENOrdering Facility: [facility] Address: [address] [place] [address] Performed By: #### A LLBG ####[facility] LABCLIA [id number] [address] [address] [place] Oxyhemoglobin (BldA) [Mass fraction] 94 % Low 95-98 [facility] Comment on above: Order Comment: Speci men Type: ARTERIAL BLOOD SPECIMENOrdering Facility: [facility] Address: [address] [place] [address] Performed By: #### A LLBG ####[facility] LABCLIA [id number] [place] [address] [place] pH (Bld) 7.33 [pH] Low 7.35-7.45 [facility] Comment on above: Order Comment: Speci men Type: ARTERIAL BLOOD SPECIMENOrdering Facility: [facility] Address: [address] [place] [address] Performed By: #### A LLBG ####[facility] LABCLIA [id number] [place] [address] [place] pH adjusted to patient's actual temperature (Bld) 7.32 Low 7.35-7.45 [facility] Comment on above: Order Comment: Speci men Type: ARTERIAL BLOOD SPECIMENOrdering Facility: [facility] Address: [address] [place], [place] [address] Performed By: #### A LLBG ####[facility] LABCLIA [id number] [place] [address] [place] Potassium [Moles/Vol] 3.9 mmol/L Normal 3.5-5.[address] [facility] Comment on above: Order Comment: Speci men Type: ARTERIAL BLOOD SPECIMENOrdering Facility: [facility] Address: [address] [place] [address] Performed By: #### A LLBG ####[facility] LABCLIA [id number] [place] [address] [place] Sodium [Moles/Vol] 139 mmol/L Normal 136-144 [facility] Comment on above: Order Comment: Speci men Type: ARTERIAL BLOOD SPECIMENOrdering Facility: [facility] Address: [address] [place] [address] Performed By: #### A LLBG ####[facility] LABCLIA [id number] [place] [address] [place] Order Comment: Speci men Type: VENOUS BLOOD SPECIMENOrdering Facility: [facility] Address: [address] [place] [address] Performed By: #### 2 4344-4 ####[facility] LABCLIA [id number] [place] [address] [place] Base deficit (BldA) [Moles/Vol] -2 mmol/L Normal -2-0 [facility] Comment on above: Order Comment: Speci men Type: ARTERIAL BLOOD SPECIMENOrdering Facility: [facility] Address: [address] [place] [address] Performed By: #### A LLBG ####[facility] LABCLIA [id number] [place] [address] [place] Body temperature 99.5 [degF] Normal [facility] Comment on above: Order Comment: Speci men Type: ARTERIAL BLOOD SPECIMENOrdering Facility: [facility] Address: [address] [place] [address] Performed By: #### A LLBG ####[facility] LABCLIA [id number] [place] [address] [place] Calcium.ionized (Bld) [Mass/Vol] 1.20 mmol/L Normal 1.08-1.30 [facility] Comment on above: Order Comment: Speci men Type: ARTERIAL BLOOD SPECIMENOrdering Facility: [facility] Address: [address] [place] [address] Performed By: #### A LLBG ####[facility] LABCLIA [id number] [place] [address] [place] Calcium.ionized adjusted to pH 7.4 (BldA) [Moles/Vol] 1.16 mmol/L Normal 1.08-1.30 [facility] Comment on above: Order Comment: Speci men Type: ARTERIAL BLOOD SPECIMENOrdering Facility: [facility] Address: [address] [place] [address] Performed By: #### A LLBG ####[facility] LABCLIA [id number] [place] [address] [place] Carboxyhemoglobin (BldA) [Mass fraction] 1.1 % Normal 0.0-2.0 [facility] Comment on above: Order Comment: Speci men Type: ARTERIAL BLOOD SPECIMENOrdering Facility: [facility] Address: [address] [place] [address] Result Comment: Carb oxyhemoglobin Reference Range for Smokers: 2.0-8.0% Performed By: #### A LLBG ####[facility] LABCLIA [id number] [place] [address] [place] CO2 (Bld) [Partial pressure] 44 mm Hg Normal 36-46 [facility] Comment on above: Order Comment: Speci men Type: ARTERIAL BLOOD SPECIMENOrdering Facility: [facility] Address: [address] [place] [address] Performed By: #### A LLBG ####[facility] LABCLIA [id number] [place] [address] [place] CO2 adjusted to patient's actual temperature (Bld) [Partial pressure] 45 mmHg Normal 36-46 [facility] Comment on above: Order Comment: Speci men Type: ARTERIAL BLOOD SPECIMENOrdering Facility: [facility] Address: [address] [place] [address] Performed By: #### A LLBG ####[facility] LABCLIA [id number] [place] [address] [place] Glucose [Mass/Vol] 134 mg/dL High 60-105 [facility] Comment on above: Order Comment: Speci men Type: ARTERIAL BLOOD SPECIMENOrdering Facility: [facility] Address: [address] [place] [address] Performed By: #### A LLBG ####[facility] LABCLIA [id number] [place] [address] [place] HCO3 (Bld) [Moles/Vol] 23 mmol/L Normal 22-26 [facility] Comment on above: Order Comment: Speci men Type: ARTERIAL BLOOD SPECIMENOrdering Facility: [facility] Address: [address] [place] [address] Performed By: #### A LLBG ####[facility] LABCLIA [id number] [place] [address] [place] Hematocrit (Bld) [Volume fraction] 30.9 % Low 36.0-46.0 [facility] Comment on above: Order Comment: Speci men Type: ARTERIAL BLOOD SPECIMENOrdering Facility: [facility] Address: [address] [place] [address] Performed By: #### A LLBG ####[facility] LABCLIA [id number] [place] [address] [place] Hemoglobin (Bld) [Mass/Vol] 10.0 g/dL Low 11.5-15.5 [facility] Comment on above: Order Comment: Speci men Type: ARTERIAL BLOOD SPECIMENOrdering Facility: [facility] Address: [address] [place] [address] Performed By: #### A LLBG ####[facility] LABCLIA [id number] [place] [address] [place] Lactate [Moles/Vol] 1.2 mmol/L Normal 0.5-2.2 [facility] Comment on above: Order Comment: Speci men Type: ARTERIAL BLOOD SPECIMENOrdering Facility: [facility] Address: [address] [place] [address] Performed By: #### A LLBG ####[facility] LABCLIA [id number] [address] [address] [place] Methemoglobin (Bld) [Mass fraction] 1.3 % Normal 0.0-1.5 [facility] Comment on above: Order Comment: Speci men Type: ARTERIAL BLOOD SPECIMENOrdering Facility: [facility] Address: [address] [place] [id number] Performed By: #### A LLBG ####[facility] LABCLIA [id number] [place] [id number] [place] O2 THERAPY Positive Normal [facility] Comment on above: Order Comment: Speci men Type: ARTERIAL BLOOD SPECIMENOrdering Facility: [facility] Address: [address] [place] [id number] Performed By: #### A LLBG ####[facility] LABCLIA [id number] [place] [id number] [place] Oxygen (Bld) [Partial pressure] 87 mm Hg Normal 85-95 [facility] Comment on above: Order Comment: Speci men Type: ARTERIAL BLOOD SPECIMENOrdering Facility: [facility] Address: [address] [place] [id number] Performed By: #### A LLBG ####[facility] LABCLIA [id number] [place] [id number] [place] Oxygen adjusted to patient's actual temperature (Bld) [Partial pressure] 89 mmHg Normal 85-95 [facility] Comment on above: Order Comment: Speci men Type: ARTERIAL BLOOD SPECIMENOrdering Facility: [facility] Address: [address] [place] [address] Performed By: #### A LLBG ####[facility] LABCLIA [id number] [place] [id number] [place] Oxyhemoglobin (BldA) [Mass fraction] 94 % Low 95-98 [facility] Comment on above: Order Comment: Speci men Type: ARTERIAL BLOOD SPECIMENOrdering Facility: [facility] Address: [address] [place] [address] Performed By: #### A LLBG ####[facility] LABCLIA [id number] [place] [address] [place] pH (Bld) 7.34 [pH] Low 7.35-7.45 [facility] Comment on above: Order Comment: Speci men Type: ARTERIAL BLOOD SPECIMENOrdering Facility: [facility] Address: [address] [place] [address] Performed By: #### A LLBG ####[facility] LABCLIA [id number] [place] [address] [place] pH adjusted to patient's actual temperature (Bld) 7.34 Low 7.35-7.45 [facility] Comment on above: Order Comment: Speci men Type: ARTERIAL BLOOD SPECIMENOrdering Facility: [facility] Address: [address] [place] [address] Performed By: #### A LLBG ####[facility] LABIA [id number] [place] [address] [place] Potassium [Moles/Vol] 4.0 mmol/L Normal 3.5-5.[address] [facility] Comment on above: Order Comment: Speci men Type: ARTERIAL BLOOD SPECIMENOrdering Facility: [facility] Address: [address] [place] [address] Performed By: #### A LLBG ####[facility] LABIA [id number] [place] [address] [place] Sodium [Moles/Vol] 139 mmol/L Normal 136-144 [facility] Comment on above: Order Comment: Speci men Type: ARTERIAL BLOOD SPECIMENOrdering Facility: [facility] Address: [address] [place] [address] Performed By: #### A LLBG ####[facility] LABIA [id number] [place] [address] [place] Base deficit (BldA) [Moles/Vol] -2 mmol/L Normal -2-0 [facility] Comment on above: Order Comment: Speci men Type: ARTERIAL BLOOD SPECIMENOrdering Facility: [facility] Address: [address] [place] [address] Performed By: #### A LLBG ####[facility] LABIA [id number] [place] [address] [place] Body temperature 99.68 [degF] Normal [facility] Comment on above: Order Comment: Speci men Type: ARTERIAL BLOOD SPECIMENOrdering Facility: [facility] Address: [address] [place] [address] Performed By: #### A LLBG ####[facility] LABCLIA [id number] [place] [address] [place] Calcium.ionized (Bld) [Mass/Vol] 1.17 mmol/L Normal 1.08-1.30 [facility] Comment on above: Order Comment: Speci men Type: ARTERIAL BLOOD SPECIMENOrdering Facility: [facility] Address: [address] [place] [address] Performed By: #### A LLBG ####[facility] LABIA [id number] [place] [address] [place] Calcium.ionized adjusted to pH 7.4 (BldA) [Moles/Vol] 1.14 mmol/L Normal 1.08-1.30 [facility] Comment on above: Order Comment: Speci men Type: ARTERIAL BLOOD SPECIMENOrdering Facility: [facility] Address: [address] [place] [address] Performed By: #### A LLBG ####[facility] [facility] [id number] [place] [address] [place] Carboxyhemoglobin (BldA) [Mass fraction] 1.8 % Normal 0.0-2.0 [facility] Comment on above: Order Comment: Speci men Type: ARTERIAL BLOOD SPECIMENOrdering Facility: [facility] Address: [address] [place] [address] Result Comment: Carb oxyhemoglobin Reference Range for Smokers: 2.0-8.0% Performed By: #### A LLBG ####[facility] LABCLIA [id number] [place] [address] [place] CO2 (Bld) [Partial pressure] 43 mm Hg Normal 36-46 [facility] Comment on above: Order Comment: Speci men Type: ARTERIAL BLOOD SPECIMENOrdering Facility: [facility] Address: [address] [place] [address] Performed By: #### A LLBG ####[facility] LABCLIA [id number] [place] [address] [place] CO2 adjusted to patient's actual temperature (Bld) [Partial pressure] 44 mmHg Normal 36-46 [facility] Comment on above: Order Comment: Speci men Type: ARTERIAL BLOOD SPECIMENOrdering Facility: [facility] Address: [address] [place] [address] Performed By: #### A LLBG ####[facility] LABCLIA [id number] [place] [address] [place] Glucose [Mass/Vol] 141 mg/dL High 60-105 [facility] Comment on above: Order Comment: Speci men Type: ARTERIAL BLOOD SPECIMENOrdering Facility: [facility] Address: [address] [place] [address] Performed By: #### A LLBG ####[facility] LABCLIA [id number] [place] [address] [place] HCO3 (Bld) [Moles/Vol] 23 mmol/L Normal 22-26 [facility] Comment on above: Order Comment: Speci men Type: ARTERIAL BLOOD SPECIMENOrdering Facility: [facility] Address: [address] [place] [address] Performed By: #### A LLBG ####[facility] LABCLIA [id number] [place] [address] [place] Hematocrit (Bld) [Volume fraction] 30.0 % Low 36.0-46.0 [facility] Comment on above: Order Comment: Speci men Type: ARTERIAL BLOOD SPECIMENOrdering Facility: [facility] Address: [address] [place] [address] Performed By: #### A LLBG ####[facility] LABCLIA [id number] [place] [address] [place] Hemoglobin (Bld) [Mass/Vol] 9.7 g/dL Low 11.5-15.5 [facility] Comment on above: Order Comment: Speci men Type: ARTERIAL BLOOD SPECIMENOrdering Facility: [facility] Address: [address] [place] [address] Performed By: #### A LLBG ####[facility] LABCLIA [id number] [place] [address] [place] Lactate [Moles/Vol] 1.2 mmol/L Normal 0.5-2.2 [facility] Comment on above: Order Comment: Speci men Type: ARTERIAL BLOOD SPECIMENOrdering Facility: [facility] Address: [address] [place] [address] Performed By: #### A LLBG ####[facility] LABCLIA [id number] [place] [address] [place] Methemoglobin (Bld) [Mass fraction] 0.8 % Normal 0.0-1.5 [facility] Comment on above: Order Comment: Speci men Type: ARTERIAL BLOOD SPECIMENOrdering Facility: [facility] Address: [address] [place] [address] Performed By: #### A LLBG ####[facility] LABCLIA [id number] [place] [address] [place] O2 THERAPY Positive Normal [facility] Comment on above: Order Comment: Speci men Type: ARTERIAL BLOOD SPECIMENOrdering Facility: [facility] Address: [address] [place] [address] Performed By: #### A LLBG ####[facility] LABCLIA [id number] [place] [address] [place] Oxygen (Bld) [Partial pressure] 122 mm Hg High 85-95 [facility] Comment on above: Order Comment: Speci men Type: ARTERIAL BLOOD SPECIMENOrdering Facility: [facility] Address: [address] [place] [address] Performed By: #### A LLBG ####[facility] LABCLIA [id number] [place] [address] [place] Oxygen adjusted to patient's actual temperature (Bld) [Partial pressure] 125 mmHg High 85-95 [facility] Comment on above: Order Comment: Speci men Type: ARTERIAL BLOOD SPECIMENOrdering Facility: [facility] Address: [address] [place] [address] Performed By: #### A LLBG ####[facility] LABCLIA [id number] [place] [address] [place] Oxyhemoglobin (BldA) [Mass fraction] 97 % Normal 95-98 [facility] Comment on above: Order Comment: Speci men Type: ARTERIAL BLOOD SPECIMENOrdering Facility: [facility] Address: [address] [place] [address] Performed By: #### A LLBG ####[facility] LABCLIA [id number] [place] [address] [place] pH (Bld) 7.34 [pH] Low 7.35-7.45 [facility] Comment on above: Order Comment: Speci men Type: ARTERIAL BLOOD SPECIMENOrdering Facility: [facility] Address: [address] [place] [address] Performed By: #### A LLBG ####[facility] LABCLIA [id number] [address] [id number] [address] [place] pH adjusted to patient's actual temperature (Bld) 7.34 Low 7.35-7.45 [facility] Comment on above: Order Comment: Speci men Type: ARTERIAL BLOOD SPECIMENOrdering Facility: [facility] Address: [address] [place] [address] Performed By: #### A LLBG ####[facility] LABCLIA [id number] [place] [address] [place] Potassium [Moles/Vol] 4.1 mmol/L Normal 3.5-5.[address] [facility] Comment on above: Order Comment: Speci men Type: ARTERIAL BLOOD SPECIMENOrdering Facility: [facility] Address: [address] [place] [address] Performed By: #### A LLBG ####[facility] LABCLIA [id number] [place] [address] [place] Sodium [Moles/Vol] 138 mmol/L Normal 136-144 [facility] Comment on above: Order Comment: Speci men Type: ARTERIAL BLOOD SPECIMENOrdering Facility: [facility] Address: [address] [place] [address] Performed By: #### A LLBG ####[facility] LABCLIA [id number] [place] [address] [place] Base deficit (BldA) [Moles/Vol] -3 mmol/L Low -2-0 [facility] Comment on above: Order Comment: Speci men Type: ARTERIAL BLOOD SPECIMENOrdering Facility: [facility] Address: [address] [place], [place] [address] Performed By: #### A LLBG ####[facility] LABCLIA [id number] [place] [address] [place] Body temperature 99.68 [degF] Normal [facility] Comment on above: Order Comment: Speci men Type: ARTERIAL BLOOD SPECIMENOrdering Facility: [facility] Address: [address] [place] [address] Performed By: #### A LLBG ####[facility] LABIA [id number] [place] [address] [place] Calcium.ionized (Bld) [Mass/Vol] 1.17 mmol/L Normal 1.08-1.30 [facility] Comment on above: Order Comment: Speci men Type: ARTERIAL BLOOD SPECIMENOrdering Facility: [facility] Address: [address] [place] [address] Performed By: #### A LLBG ####[facility] [id number] [place] [address] [place] Calcium.ionized adjusted to pH 7.4 (BldA) [Moles/Vol] 1.12 mmol/L Normal 1.08-1.30 [facility] Comment on above: Order Comment: Speci men Type: ARTERIAL BLOOD SPECIMENOrdering Facility: [facility] Address: [address] [place] [address] Performed By: #### A LLBG ####[facility] [id number] [place] [address] [place] Carboxyhemoglobin (BldA) [Mass fraction] 1.4 % Normal 0.0-2.0 [facility] Comment on above: Order Comment: Speci men Type: ARTERIAL BLOOD SPECIMENOrdering Facility: [facility] Address: [address] [place] [address] Result Comment: Carb oxyhemoglobin Reference Range for Smokers: 2.0-8.0% Performed By: #### A LLBG ####[facility] [id number] [place] [address] [place] CO2 (Bld) [Partial pressure] 45 mm Hg Normal 36-46 [facility] Comment on above: Order Comment: Speci men Type: ARTERIAL BLOOD SPECIMENOrdering Facility: [facility] Address: [address] [place] [address] Performed By: #### A LLBG ####[facility] LABCLIA [id number] [place] [address] [place] CO2 adjusted to patient's actual temperature (Bld) [Partial pressure] 46 mmHg Normal 36-46 [facility] Comment on above: Order Comment: Speci men Type: ARTERIAL BLOOD SPECIMENOrdering Facility: [facility] Address: [address] [place] [address] Performed By: #### A LLBG ####[facility] LABCLIA [id number] [place] [address] [place] FIO2 30 % Normal [facility] Comment on above: Order Comment: Speci men Type: ARTERIAL BLOOD SPECIMENOrdering Facility: [facility] Address: [address] [place] [address] Performed By: #### A LLBG ####[facility] LABCLIA [id number] [place] [address] [place] Glucose [Mass/Vol] 153 mg/dL High 60-105 [facility] Comment on above: Order Comment: Speci men Type: ARTERIAL BLOOD SPECIMENOrdering Facility: [facility] Address: [address] [place] [address] Performed By: #### A LLBG ####[facility] LABCLIA [id number] [place] [address] [place] HCO3 (Bld) [Moles/Vol] 22 mmol/L Normal 22-26 [facility] Comment on above: Order Comment: Speci men Type: ARTERIAL BLOOD SPECIMENOrdering Facility: [facility] Address: [address] [place] [address] Performed By: #### A LLBG ####[facility] LABCLIA [id number] [place] [address] [place] Hematocrit (Bld) [Volume fraction] 30.8 % Low 36.0-46.0 [facility] Comment on above: Order Comment: Speci men Type: ARTERIAL BLOOD SPECIMENOrdering Facility: [facility] Address: [address] [place] [address] Performed By: #### A LLBG ####[facility] LABCLIA [id number] [place] [address] [place] Hemoglobin (Bld) [Mass/Vol] 9.9 g/dL Low 11.5-15.5 [facility] Comment on above: Order Comment: Speci men Type: ARTERIAL BLOOD SPECIMENOrdering Facility: [facility] Address: [address] [place] [address] Performed By: #### A LLBG ####[facility] LABCLIA [id number] [place] [address] [place] Lactate [Moles/Vol] 1.3 mmol/L Normal 0.5-2.2 [facility] Comment on above: Order Comment: Speci men Type: ARTERIAL BLOOD SPECIMENOrdering Facility: [facility] Address: [address] [place] [address] Performed By: #### A LLBG ####[facility] LABCLIA [id number] [place] [address] [place] Methemoglobin (Bld) [Mass fraction] 1.6 % High 0.0-1.5 [facility] Comment on above: Order Comment: Speci men Type: ARTERIAL BLOOD SPECIMENOrdering Facility: [facility] Address: [address] [place] [address] Performed By: #### A LLBG ####[facility] LABCLIA [id number] [place] [address] [place] O2 THERAPY Positive Normal [facility] Comment on above: Order Comment: Speci men Type: ARTERIAL BLOOD SPECIMENOrdering Facility: [facility] Address: [address] [place] [address] Performed By: #### A LLBG ####[facility] LABCLIA [id number] [place] [address] [place] Oxygen (Bld) [Partial pressure] 85 mm Hg Normal 85-95 [facility] Comment on above: Order Comment: Speci men Type: ARTERIAL BLOOD SPECIMENOrdering Facility: [facility] Address: [address] [place] [address] Performed By: #### A LLBG ####[facility] LABCLIA [id number] [place] [address] [place] Oxygen adjusted to patient's actual temperature (Bld) [Partial pressure] 88 mmHg Normal 85-95 [facility] Comment on above: Order Comment: Speci men Type: ARTERIAL BLOOD SPECIMENOrdering Facility: [facility] Address: [address] [place], [place] [address] Performed By: #### A LLBG ####[facility] LABCLIA [id number] [place] [address] [place] Oxyhemoglobin (BldA) [Mass fraction] 93 % Low 95-98 [facility] Comment on above: Order Comment: Speci men Type: ARTERIAL BLOOD SPECIMENOrdering Facility: [facility] Address: [address] [place] [address] Performed By: #### A LLBG ####[facility] LABCLIA [id number] [place] [address] [place] pH (Bld) 7.32 [pH] Low 7.35-7.45 [facility] Comment on above: Order Comment: Speci men Type: ARTERIAL BLOOD SPECIMENOrdering Facility: [facility] Address: [address] [place] [address] Performed By: #### A LLBG ####[facility] LABCLIA [id number] [place] [address] [place] pH adjusted to patient's actual temperature (Bld) 7.31 Low 7.35-7.45 [facility] Comment on above: Order Comment: Speci men Type: ARTERIAL BLOOD SPECIMENOrdering Facility: [facility] Address: [address] [place] [address] Performed By: #### A LLBG ####[facility] LABCLIA [id number] [place] [address] [place] PO2 / FIO2 RATIO 283 mmHg Low >[address] [facility] [place] [facility] Comment on above: Order Comment: Speci men Type: ARTERIAL BLOOD SPECIMENOrdering Facility: [facility] Address: [address] [place] [address] Performed By: #### A LLBG ####[facility] LABCLIA [id number] [place] [address] [place] Potassium [Moles/Vol] 4.2 mmol/L Normal 3.5-5.[address] [facility] Comment on above: Order Comment: Speci men Type: ARTERIAL BLOOD SPECIMENOrdering Facility: [facility] Address: [address] [place] [address] Performed By: #### A LLBG ####[facility] LABCLIA [id number] [place] [address] [place] Sodium [Moles/Vol] 137 mmol/L Normal 136-144 [facility] Comment on above: Order Comment: Speci men Type: ARTERIAL BLOOD SPECIMENOrdering Facility: [facility] Address: [address] [place] [address] Performed By: #### A LLBG ####[facility] LABCLIA [id number] [place] [address] [place] Base deficit (BldA) [Moles/Vol] -4 mmol/L Low -2-0 [facility] Comment on above: Order Comment: Speci men Type: ARTERIAL BLOOD SPECIMENOrdering Facility: [facility] Address: [address] [place] [address] Performed By: #### A LLBG ####[facility] LABCLIA [id number] [address] [id number] [address] [place] Body temperature 99.68 [degF] Normal [facility] Comment on above: Order Comment: Speci men Type: ARTERIAL BLOOD SPECIMENOrdering Facility: [facility] Address: [address] [place] [address] Performed By: #### A LLBG ####[facility] LABCLIA [id number] [place] [address] [place] Calcium.ionized (Bld) [Mass/Vol] 1.18 mmol/L Normal 1.08-1.30 [facility] Comment on above: Order Comment: Speci men Type: ARTERIAL BLOOD SPECIMENOrdering Facility: [facility] Address: [address] [place] [address] Performed By: #### A LLBG ####[facility] LABCLIA [id number] [place] [address] [place] Calcium.ionized adjusted to pH 7.4 (BldA) [Moles/Vol] 1.12 mmol/L Normal 1.08-1.30 [facility] Comment on above: Order Comment: Speci men Type: ARTERIAL BLOOD SPECIMENOrdering Facility: [facility] Address: [address] [place] [address] Performed By: #### A LLBG ####[facility] LABCLIA [id number] [place] [address] [place] Carboxyhemoglobin (BldA) [Mass fraction] 1.5 % Normal 0.0-2.0 [facility] Comment on above: Order Comment: Speci men Type: ARTERIAL BLOOD SPECIMENOrdering Facility: [facility] Address: [address] [place] [address] Result Comment: Carb oxyhemoglobin Reference Range for Smokers: 2.0-8.0% Performed By: #### A LLBG ####[facility] LABCLIA [id number] [place] [address] [place] CO2 (Bld) [Partial pressure] 47 mm Hg High 36-46 [facility] Comment on above: Order Comment: Speci men Type: ARTERIAL BLOOD SPECIMENOrdering Facility: [facility] Address: [address] [place] [address] Performed By: #### A LLBG ####[facility] LABCLIA [id number] [place] [address] [place] CO2 adjusted to patient's actual temperature (Bld) [Partial pressure] 49 mmHg High 36-46 [facility] Comment on above: Order Comment: Speci men Type: ARTERIAL BLOOD SPECIMENOrdering Facility: [facility] Address: [address] [place] [address] Performed By: #### A LLBG ####[facility] LABCLIA [id number] [place] [address] [place] Glucose [Mass/Vol] 172 mg/dL High 60-105 [facility] Comment on above: Order Comment: Speci men Type: ARTERIAL BLOOD SPECIMENOrdering Facility: [facility] Address: [address] [place] [address] Performed By: #### A LLBG ####[facility] LABCLIA [id number] [place] [address] [place] HCO3 (Bld) [Moles/Vol] 22 mmol/L Normal 22-26 [facility] Comment on above: Order Comment: Speci men Type: ARTERIAL BLOOD SPECIMENOrdering Facility: [facility] Address: [address] [place] [address] Performed By: #### A LLBG ####[facility] LABCLIA [id number] [place] [address] [place] Hematocrit (Bld) [Volume fraction] 29.8 % Low 36.0-46.0 [facility] Comment on above: Order Comment: Speci men Type: ARTERIAL BLOOD SPECIMENOrdering Facility: [facility] Address: [address] [place], [place] [address] Performed By: #### A LLBG ####[facility] LABCLIA [id number] [place] [address] [place] Hemoglobin (Bld) [Mass/Vol] 9.6 g/dL Low 11.5-15.5 [facility] Comment on above: Order Comment: Speci men Type: ARTERIAL BLOOD SPECIMENOrdering Facility: [facility] Address: [address] [place] [address] Performed By: #### A LLBG ####[facility] LABIA [id number] [place] [address] [place] Lactate [Moles/Vol] 1.3 mmol/L Normal 0.5-2.2 [facility] Comment on above: Order Comment: Speci men Type: ARTERIAL BLOOD SPECIMENOrdering Facility: [facility] Address: [address] [place] [address] Performed By: #### A LLBG ####[facility] LABIA [id number] [place] [address] [place] Methemoglobin (Bld) [Mass fraction] 0.5 % Normal 0.0-1.5 [facility] Comment on above: Order Comment: Speci men Type: ARTERIAL BLOOD SPECIMENOrdering Facility: [facility] Address: [address] [place] [address] Performed By: #### A LLBG ####[facility] LABIA [id number] [place] [address] [place] O2 THERAPY Positive Normal [facility] Comment on above: Order Comment: Speci men Type: ARTERIAL BLOOD SPECIMENOrdering Facility: [facility] Address: [address] [place] [address] Performed By: #### A LLBG ####[facility] LABIA [id number] [place] [id number] [place] Oxygen (Bld) [Partial pressure] 126 mm Hg High 85-95 [facility] Comment on above: Order Comment: Speci men Type: ARTERIAL BLOOD SPECIMENOrdering Facility: [facility] Address: [address] [place] [address] Performed By: #### A LLBG ####[facility] LABCLIA [id number] [place] [address] [place] Oxygen adjusted to patient's actual temperature (Bld) [Partial pressure] 129 mmHg High 85-95 [facility] Comment on above: Order Comment: Speci men Type: ARTERIAL BLOOD SPECIMENOrdering Facility: [facility] Address: [address] [place] [address] Performed By: #### A LLBG ####[facility] LABCLIA [id number] [place] [address] [place] Oxyhemoglobin (BldA) [Mass fraction] 97 % Normal 95-98 [facility] Comment on above: Order Comment: Speci men Type: ARTERIAL BLOOD SPECIMENOrdering Facility: [facility] Address: [address] [place] [address] Performed By: #### A LLBG ####[facility] LABCLIA [id number] [place] [address] [place] pH (Bld) 7.29 [pH] Low 7.35-7.45 [facility] Comment on above: Order Comment: Speci men Type: ARTERIAL BLOOD SPECIMENOrdering Facility: [facility] Address: [address] [place] [address] Performed By: #### A LLBG ####[facility] LABCLIA [id number] [place] [address] [place] pH adjusted to patient's actual temperature (Bld) 7.28 Low 7.35-7.45 [facility] Comment on above: Order Comment: Speci men Type: ARTERIAL BLOOD SPECIMENOrdering Facility: [facility] Address: [address] [place] [address] Performed By: #### A LLBG ####[facility] LABCLIA [id number] [place] [address] [place] Potassium [Moles/Vol] 4.5 mmol/L Normal 3.5-5.[address] [facility] Comment on above: Order Comment: Speci men Type: ARTERIAL BLOOD SPECIMENOrdering Facility: [facility] Address: [address] [place] [address] Performed By: #### A LLBG ####[facility] LABCLIA [id number] [place] [address] [place] Sodium [Moles/Vol] 137 mmol/L Normal 136-144 [facility] Comment on above: Order Comment: Speci men Type: ARTERIAL BLOOD SPECIMENOrdering Facility: [facility] Address: [address] [place] [address] Performed By: #### A LLBG ####[facility] LABCLIA [id number] [place] [address] [place] Base deficit (BldA) [Moles/Vol] -4 mmol/L Low -2-0 [facility] Comment on above: Order Comment: Speci men Type: ARTERIAL BLOOD SPECIMENOrdering Facility: [facility] Address: [address] [place] [address] Performed By: #### A LLBG ####[facility] LABCLIA [id number] [place] [address] [place] Body temperature 99.86 [degF] Normal [facility] Comment on above: Order Comment: Speci men Type: ARTERIAL BLOOD SPECIMENOrdering Facility: [facility] Address: [address] [place] [address] Performed By: #### A LLBG ####[facility] LABCLIA [id number] [place] [address] [place] Calcium.ionized (Bld) [Mass/Vol] 1.18 mmol/L Normal 1.08-1.30 [facility] Comment on above: Order Comment: Speci men Type: ARTERIAL BLOOD SPECIMENOrdering Facility: [facility] Address: [address] [place] [address] Performed By: #### A LLBG ####[facility] LABIA [id number] [place] [address] [place] Calcium.ionized adjusted to pH 7.4 (BldA) [Moles/Vol] 1.12 mmol/L Normal 1.08-1.30 [facility] Comment on above: Order Comment: Speci men Type: ARTERIAL BLOOD SPECIMENOrdering Facility: [facility] Address: [address] [place] [address] Performed By: #### A LLBG ####[facility] LABIA [id number] [place] [address] [place] Carboxyhemoglobin (BldA) [Mass fraction] 1.2 % Normal 0.0-2.0 [facility] Comment on above: Order Comment: Speci men Type: ARTERIAL BLOOD SPECIMENOrdering Facility: [facility] Address: [address] [place] [address] Result Comment: Carb oxyhemoglobin Reference Range for Smokers: 2.0-8.0% Performed By: #### A LLBG ####[facility] LABIA [id number] [place] [address] [place] CO2 (Bld) [Partial pressure] 45 mm Hg Normal 36-46 [facility] Comment on above: Order Comment: Speci men Type: ARTERIAL BLOOD SPECIMENOrdering Facility: [facility] Address: [address] [place] [address] Performed By: #### A LLBG ####[facility] LABIA [id number] [place] [address] [place] CO2 adjusted to patient's actual temperature (Bld) [Partial pressure] 47 mmHg High 36-46 [facility] Comment on above: Order Comment: Speci men Type: ARTERIAL BLOOD SPECIMENOrdering Facility: [facility] Address: [address] [place] [address] Performed By: #### A LLBG ####[facility] LABCLIA [id number] [place] [address] [place] FIO2 40 % Normal [facility] Comment on above: Order Comment: Speci men Type: ARTERIAL BLOOD SPECIMENOrdering Facility: [facility] Address: [address] [place] [address] Performed By: #### A LLBG ####[facility] LABCLIA [id number] [place] [address] [place] Glucose [Mass/Vol] 136 mg/dL High 60-105 [facility] Comment on above: Order Comment: Speci men Type: ARTERIAL BLOOD SPECIMENOrdering Facility: [facility] Address: [address] [place] [address] Performed By: #### A LLBG ####[facility] LABCLIA [id number] [place] [address] [place] HCO3 (Bld) [Moles/Vol] 22 mmol/L Normal 22-26 [facility] Comment on above: Order Comment: Speci men Type: ARTERIAL BLOOD SPECIMENOrdering Facility: [facility] Address: [address] [place] [address] Performed By: #### A LLBG ####[facility] LABCLIA [id number] [place] [address] [place] Hematocrit (Bld) [Volume fraction] 30.9 % Low 36.0-46.0 [facility] Comment on above: Order Comment: Speci men Type: ARTERIAL BLOOD SPECIMENOrdering Facility: [facility] Address: [address] [place] [address] Performed By: #### A LLBG ####[facility] LABCLIA [id number] [place] [address] [place] Hemoglobin (Bld) [Mass/Vol] 10.0 g/dL Low 11.5-15.5 [facility] Comment on above: Order Comment: Speci men Type: ARTERIAL BLOOD SPECIMENOrdering Facility: [facility] Address: [address] [place] [address] Performed By: #### A LLBG ####[facility] LABCLIA [id number] [address] [address] [place] Lactate [Moles/Vol] 1.3 mmol/L Normal 0.5-2.2 [facility] Comment on above: Order Comment: Speci men Type: ARTERIAL BLOOD SPECIMENOrdering Facility: [facility] Address: [address] [place] [id number] Performed By: #### A LLBG ####[facility] LABCLIA [id number] [place] [address] [place] Methemoglobin (Bld) [Mass fraction] 1.2 % Normal 0.0-1.5 [facility] Comment on above: Order Comment: Speci men Type: ARTERIAL BLOOD SPECIMENOrdering Facility: [facility] Address: [address] [place], [place] [address] Performed By: #### A LLBG ####[facility] LABIA [id number] [place] [address] [place] O2 THERAPY Positive Normal [facility] Comment on above: Order Comment: Speci men Type: ARTERIAL BLOOD SPECIMENOrdering Facility: [facility] Address: [address] [place] [id number] Performed By: #### A LLBG ####[facility] LABCLIA [id number] [place] [id number] [place] Oxygen (Bld) [Partial pressure] 132 mm Hg High 85-95 [facility] Comment on above: Order Comment: Speci men Type: ARTERIAL BLOOD SPECIMENOrdering Facility: [facility] Address: [address] [place], [place] [id number] Performed By: #### A LLBG ####[facility] LABCLIA [id number] [place] [address] [place] Oxygen adjusted to patient's actual temperature (Bld) [Partial pressure] 136 mmHg High 85-95 [facility] Comment on above: Order Comment: Speci men Type: ARTERIAL BLOOD SPECIMENOrdering Facility: [facility] Address: [address] [place] [address] Performed By: #### A LLBG ####[facility] LABCLIA [id number] [place] [address] [place] Oxyhemoglobin (BldA) [Mass fraction] 96 % Normal 95-98 [facility] Comment on above: Order Comment: Speci men Type: ARTERIAL BLOOD SPECIMENOrdering Facility: [facility] Address: [address] [place] [address] Performed By: #### A LLBG ####[facility] LABCLIA [id number] [place] [address] [place] pH (Bld) 7.31 [pH] Low 7.35-7.45 [facility] Comment on above: Order Comment: Speci men Type: ARTERIAL BLOOD SPECIMENOrdering Facility: [facility] Address: [address] [place] [address] Performed By: #### A LLBG ####[facility] LABCLIA [id number] [place] [address] [place] pH adjusted to patient's actual temperature (Bld) 7.30 Low 7.35-7.45 [facility] Comment on above: Order Comment: Speci men Type: ARTERIAL BLOOD SPECIMENOrdering Facility: [facility] Address: [address] [place] [address] Performed By: #### A LLBG ####[facility] LABCLIA [id number] [place] [address] [place] PO2 / FIO2 RATIO 330 mmHg Normal >[address] [facility] [place] [facility] Comment on above: Order Comment: Speci men Type: ARTERIAL BLOOD SPECIMENOrdering Facility: [facility] Address: [address] [place] [address] Performed By: #### A LLBG ####[facility] LABCLIA [id number] [place] [address] [place] Potassium [Moles/Vol] 4.5 mmol/L Normal 3.5-5.[address] [facility] Comment on above: Order Comment: Speci men Type: ARTERIAL BLOOD SPECIMENOrdering Facility: [facility] Address: [address] [place] [address] Performed By: #### A LLBG ####[facility] LABCLIA [id number] [place] [address] [place] Sodium [Moles/Vol] 137 mmol/L Normal 136-144 [facility] Comment on above: Order Comment: Speci men Type: ARTERIAL BLOOD SPECIMENOrdering Facility: [facility] Address: [address] [place] [address] Performed By: #### A LLBG ####[facility] LABCLIA [id number] [place] [address] [place] Base deficit (BldA) [Moles/Vol] -3 mmol/L Low -2-0 [facility] Comment on above: Order Comment: Speci men Type: ARTERIAL BLOOD SPECIMENOrdering Facility: [facility] Address: [address] [place] [address] Performed By: #### A LLBG ####[facility] LABCLIA [id number] [place] [address] [place] Body temperature 100.04 [degF] Normal [facility] Comment on above: Order Comment: Speci men Type: ARTERIAL BLOOD SPECIMENOrdering Facility: [facility] Address: [address] [place] [address] Performed By: #### A LLBG ####[facility] LABCLIA [id number] [place] [address] [place] Calcium.ionized (Bld) [Mass/Vol] 1.21 mmol/L Normal 1.08-1.30 [facility] Comment on above: Order Comment: Speci men Type: ARTERIAL BLOOD SPECIMENOrdering Facility: [facility] Address: [address] [place] [address] Performed By: #### A LLBG ####[facility] LABCLIA [id number] [place] [address] [place] Calcium.ionized adjusted to pH 7.4 (BldA) [Moles/Vol] 1.16 mmol/L Normal 1.08-1.30 [facility] Comment on above: Order Comment: Speci men Type: ARTERIAL BLOOD SPECIMENOrdering Facility: [facility] Address: [address] [place] [address] Performed By: #### A LLBG ####[facility] LABCLIA [id number] [place] [address] [place] Carboxyhemoglobin (BldA) [Mass fraction] 1.1 % Normal 0.0-2.0 [facility] Comment on above: Order Comment: Speci men Type: ARTERIAL BLOOD SPECIMENOrdering Facility: [facility] Address: [address] [place] [address] Performed By: #### A LLBG ####[facility] LABCLIA [id number] [place] [address] [place] CO2 (Bld) [Partial pressure] 45 mm Hg Normal 36-46 [facility] Comment on above: Order Comment: Speci men Type: ARTERIAL BLOOD SPECIMENOrdering Facility: [facility] Address: [address] [place] [address] Performed By: #### A LLBG ####[facility] LABCLIA [id number] [place] [address] [place] CO2 adjusted to patient's actual temperature (Bld) [Partial pressure] 47 mmHg High 36-46 [facility] Comment on above: Order Comment: Speci men Type: ARTERIAL BLOOD SPECIMENOrdering Facility: [facility] Address: [address] [place] [address] Performed By: #### A LLBG ####[facility] LABCLIA [id number] [place] [address] [place] Glucose [Mass/Vol] 118 mg/dL High 60-105 [facility] Comment on above: Order Comment: Speci men Type: ARTERIAL BLOOD SPECIMENOrdering Facility: [facility] Address: [address] [place] [address] Performed By: #### A LLBG ####[facility] LABCLIA [id number] [place] [address] [place] HCO3 (Bld) [Moles/Vol] 23 mmol/L Normal 22-26 [facility] Comment on above: Order Comment: Speci men Type: ARTERIAL BLOOD SPECIMENOrdering Facility: [facility] Address: [address] [place] [address] Performed By: #### A LLBG ####[facility] LABCLIA [id number] [place] [address] [place] Hematocrit (Bld) [Volume fraction] 31.1 % Low 36.0-46.0 [facility] Comment on above: Order Comment: Speci men Type: ARTERIAL BLOOD SPECIMENOrdering Facility: [facility] Address: [address] [place] [address] Performed By: #### A LLBG ####[facility] LABCLIA [id number] [place] [address] [place] Hemoglobin (Bld) [Mass/Vol] 10.1 g/dL Low 11.5-15.5 [facility] Comment on above: Order Comment: Speci men Type: ARTERIAL BLOOD SPECIMENOrdering Facility: [facility] Address: [address] [place] [address] Performed By: #### A LLBG ####[facility] LABCLIA [id number] [place] [address] [place] Lactate [Moles/Vol] 1.4 mmol/L Normal 0.5-2.2 [facility] Comment on above: Order Comment: Speci men Type: ARTERIAL BLOOD SPECIMENOrdering Facility: [facility] Address: [address] [place], [place] [id number] Performed By: #### A LLBG ####[facility] LABCLIA [id number] [place] [address] [place] Methemoglobin (Bld) [Mass fraction] 0.8 % Normal 0.0-1.5 [facility] Comment on above: Order Comment: Speci men Type: ARTERIAL BLOOD SPECIMENOrdering Facility: [facility] Address: [address] [place] [address] Performed By: #### A LLBG ####[facility] LABCLIA [id number] [place] [address] [place] O2 THERAPY Hi-Flow Nasal Cannula-Heated Normal [facility] Comment on above: Order Comment: Speci men Type: ARTERIAL BLOOD SPECIMENOrdering Facility: [facility] Address: [address] [place] [address] Performed By: #### A LLBG ####[facility] LABCLIA [id number] [place] [address] [place] Oxygen (Bld) [Partial pressure] 92 mm Hg Normal 85-95 [facility] Comment on above: Order Comment: Speci men Type: ARTERIAL BLOOD SPECIMENOrdering Facility: [facility] Address: [address] [place] [address] Performed By: #### A LLBG ####[facility] LABCLIA [id number] [place] [address] [place] Oxygen adjusted to patient's actual temperature (Bld) [Partial pressure] 97 mmHg High 85-95 [facility] Comment on above: Order Comment: Speci men Type: ARTERIAL BLOOD SPECIMENOrdering Facility: [facility] Address: [address] [place] [address] Performed By: #### A LLBG ####[facility] LABCLIA [id number] [place] [address] [place] Oxyhemoglobin (BldA) [Mass fraction] 95 % Normal 95-98 [facility] Comment on above: Order Comment: Speci men Type: ARTERIAL BLOOD SPECIMENOrdering Facility: [facility] Address: [address] [place] [address] Performed By: #### A LLBG ####[facility] LABIA [id number] [place] [address] [place] pH (Bld) 7.32 [pH] Low 7.35-7.45 [facility] Comment on above: Order Comment: Speci men Type: ARTERIAL BLOOD SPECIMENOrdering Facility: [facility] Address: [address] [place] [address] Performed By: #### A LLBG ####[facility] LABIA [id number] [place] [address] [place] pH adjusted to patient's actual temperature (Bld) 7.31 Low 7.35-7.45 [facility] Comment on above: Order Comment: Speci men Type: ARTERIAL BLOOD SPECIMENOrdering Facility: [facility] Address: [address] [place] [address] Performed By: #### A LLBG ####[facility] LABIA [id number] [place] [address] [place] Potassium [Moles/Vol] 4.3 mmol/L Normal 3.5-5.[address] [facility] Comment on above: Order Comment: Speci men Type: ARTERIAL BLOOD SPECIMENOrdering Facility: [facility] Address: [address] [place] [address] Performed By: #### A LLBG ####[facility] LABIA [id number] [place] [address] [place] Sodium [Moles/Vol] 139 mmol/L Normal 136-144 [facility] Comment on above: Order Comment: Speci men Type: ARTERIAL BLOOD SPECIMENOrdering Facility: [facility] Address: [address] [place] [address] Performed By: #### A LLBG ####[facility] LABCLIA [id number] [place] [address] [place] Base deficit (BldA) [Moles/Vol] -2 mmol/L Normal -2-0 [facility] Comment on above: Order Comment: Speci men Type: ARTERIAL BLOOD SPECIMENOrdering Facility: [facility] Address: [address] [place] [address] Performed By: #### A LLBG ####[facility] LABCLIA [id number] [place] [address] [place] Body temperature 100.04 [degF] Normal [facility] Comment on above: Order Comment: Speci men Type: ARTERIAL BLOOD SPECIMENOrdering Facility: [facility] Address: [address] [place] [address] Performed By: #### A LLBG ####[facility] LABCLIA [id number] [place] [address] [place] Calcium.ionized (Bld) [Mass/Vol] 1.20 mmol/L Normal 1.08-1.30 [facility] Comment on above: Order Comment: Speci men Type: ARTERIAL BLOOD SPECIMENOrdering Facility: [facility] Address: [address] [place] [address] Performed By: #### A LLBG ####[facility] LABCLIA [id number] [place] [address] [place] Calcium.ionized adjusted to pH 7.4 (BldA) [Moles/Vol] 1.15 mmol/L Normal 1.08-1.30 [facility] Comment on above: Order Comment: Speci men Type: ARTERIAL BLOOD SPECIMENOrdering Facility: [facility] Address: [address] [place] [address] Performed By: #### A LLBG ####[facility] LABCLIA [id number] [place] [address] [place] Carboxyhemoglobin (BldA) [Mass fraction] 1.2 % Normal 0.0-2.0 [facility] Comment on above: Order Comment: Speci men Type: ARTERIAL BLOOD SPECIMENOrdering Facility: [facility] Address: [address] [place] [address] Result Comment: Carb oxyhemoglobin Reference Range for Smokers: 2.0-8.0% Performed By: #### A LLBG ####[facility] LABCLIA [id number] [place] [address] [place] CO2 (Bld) [Partial pressure] 45 mm Hg Normal 36-46 [facility] Comment on above: Order Comment: Speci men Type: ARTERIAL BLOOD SPECIMENOrdering Facility: [facility] Address: [address] [place] [address] Performed By: #### A LLBG ####[facility] LABCLIA [id number] [place] [address] [place] CO2 adjusted to patient's actual temperature (Bld) [Partial pressure] 47 mmHg High 36-46 [facility] Comment on above: Order Comment: Speci men Type: ARTERIAL BLOOD SPECIMENOrdering Facility: [facility] Address: [address] [place] [address] Performed By: #### A LLBG ####[facility] LABCLIA [id number] [place] [address] [place] FIO2 40 % Normal [facility] Comment on above: Order Comment: Speci men Type: ARTERIAL BLOOD SPECIMENOrdering Facility: [facility] Address: [address] [place] [address] Performed By: #### A LLBG ####[facility] LABCLIA [id number] [place] [address] [place] Glucose [Mass/Vol] 147 mg/dL High 60-105 [facility] Comment on above: Order Comment: Speci men Type: ARTERIAL BLOOD SPECIMENOrdering Facility: [facility] Address: [address] [place] [address] Performed By: #### A LLBG ####[facility] LABCLIA [id number] [place] [address] [place] HCO3 (Bld) [Moles/Vol] 23 mmol/L Normal 22-26 [facility] Comment on above: Order Comment: Speci men Type: ARTERIAL BLOOD SPECIMENOrdering Facility: [facility] Address: [address] [place] [address] Performed By: #### A LLBG ####[facility] LABCLIA [id number] [place] [address] [place] Hematocrit (Bld) [Volume fraction] 31.3 % Low 36.0-46.0 [facility] Comment on above: Order Comment: Speci men Type: ARTERIAL BLOOD SPECIMENOrdering Facility: [facility] Address: [address] [place] [address] Performed By: #### A LLBG ####[facility] LABCLIA [id number] [place] [address] [place] Hemoglobin (Bld) [Mass/Vol] 10.1 g/dL Low 11.5-15.5 [facility] Comment on above: Order Comment: Speci men Type: ARTERIAL BLOOD SPECIMENOrdering Facility: [facility] Address: [address] [place] [address] Performed By: #### A LLBG ####[facility] LABCLIA [id number] [place] [address] [place] INVASIVE VENTILATOR MODE Pressure Support, CPAP (PC-CSVs) Normal [facility] Comment on above: Order Comment: Speci men Type: ARTERIAL BLOOD SPECIMENOrdering Facility: [facility] Address: [address] [place] [address] Performed By: #### A LLBG ####[facility] LABCLIA [id number] [place] [address] [place] Lactate [Moles/Vol] 1.3 mmol/L Normal 0.5-2.2 [facility] Comment on above: Order Comment: Speci men Type: ARTERIAL BLOOD SPECIMENOrdering Facility: [facility] Address: [address] [place] [address] Performed By: #### A LLBG ####[facility] LABCLIA [id number] [place] [address] [place] Methemoglobin (Bld) [Mass fraction] 1.2 % Normal 0.0-1.5 [facility] Comment on above: Order Comment: Speci men Type: ARTERIAL BLOOD SPECIMENOrdering Facility: [facility] Address: [address] [place] [address] Performed By: #### A LLBG ####[facility] LABCLIA [id number] [place] [address] [place] O2 THERAPY Ventilator Normal [facility] Comment on above: Order Comment: Speci men Type: ARTERIAL BLOOD SPECIMENOrdering Facility: [facility] Address: [address] [place] [address] Performed By: #### A LLBG ####[facility] LABCLIA [id number] [place] [address] [place] Oxygen (Bld) [Partial pressure] 105 mm Hg High 85-95 [facility] Comment on above: Order Comment: Speci men Type: ARTERIAL BLOOD SPECIMENOrdering Facility: [facility] Address: [address] [place] [address] Performed By: #### A LLBG ####[facility] LABCLIA [id number] [place] [address] [place] Oxygen adjusted to patient's actual temperature (Bld) [Partial pressure] 110 mmHg High 85-95 [facility] Comment on above: Order Comment: Speci men Type: ARTERIAL BLOOD SPECIMENOrdering Facility: [facility] Address: [address] [place] [address] Performed By: #### A LLBG ####[facility] LABCLIA [id number] [place] [address] [place] Oxyhemoglobin (BldA) [Mass fraction] 96 % Normal 95-98 [facility] Comment on above: Order Comment: Speci men Type: ARTERIAL BLOOD SPECIMENOrdering Facility: [facility] Address: [address] [place] [address] Performed By: #### A LLBG ####[facility] LABCLIA [id number] [place] [address] [place] PEEP/CPAP 8 cmH2O Normal [facility] Comment on above: Order Comment: Speci men Type: ARTERIAL BLOOD SPECIMENOrdering Facility: [facility] Address: [address] [place] [address] Performed By: #### A LLBG ####[facility] LABCLIA [id number] [place] [address] [place] pH (Bld) 7.33 [pH] Low 7.35-7.45 [facility] Comment on above: Order Comment: Speci men Type: ARTERIAL BLOOD SPECIMENOrdering Facility: [facility] Address: [address] [place] [address] Performed By: #### A LLBG ####[facility] LABCLIA [id number] [place] [address] [place] pH adjusted to patient's actual temperature (Bld) 7.32 Low 7.35-7.45 [facility] Comment on above: Order Comment: Speci men Type: ARTERIAL BLOOD SPECIMENOrdering Facility: [facility] Address: [address] [place] [address] Performed By: #### A LLBG ####[facility] LABCLIA [id number] [place] [address] [place] PO2 / FIO2 RATIO 263 mmHg Low >[address] [facility] [place] [facility] Comment on above: Order Comment: Speci men Type: ARTERIAL BLOOD SPECIMENOrdering Facility: [facility] Address: [address] [place] [address] Performed By: #### A LLBG ####[facility] LABCLIA [id number] [place] [address] [place] Potassium [Moles/Vol] 4.3 mmol/L Normal 3.5-5.[address] [facility] Comment on above: Order Comment: Speci men Type: ARTERIAL BLOOD SPECIMENOrdering Facility: [facility] Address: [address] [place] [address] Performed By: #### A LLBG ####[facility] LABCLIA [id number] [place] [address] [place] Sodium [Moles/Vol] 138 mmol/L Normal 136-144 [facility] Comment on above: Order Comment: Speci men Type: ARTERIAL BLOOD SPECIMENOrdering Facility: [facility] Address: [address] [place] [address] Performed By: #### A LLBG ####[facility] LABCLIA [id number] [place] [address] [place] Base deficit (BldA) [Moles/Vol] -2 mmol/L Normal -2-0 [facility] Comment on above: Order Comment: Speci men Type: ARTERIAL BLOOD SPECIMENOrdering Facility: [facility] Address: [address] [place] [address] Performed By: #### A LLBG ####[facility] LABCLIA [id number] [place] [address] [place] Body temperature 99.86 [degF] Normal [facility] Comment on above: Order Comment: Speci men Type: ARTERIAL BLOOD SPECIMENOrdering Facility: [facility] Address: [address] [place] [address] Performed By: #### A LLBG ####[facility] [id number] [place] [address] [place] Calcium.ionized (Bld) [Mass/Vol] 1.17 mmol/L Normal 1.08-1.30 [facility] Comment on above: Order Comment: Speci men Type: ARTERIAL BLOOD SPECIMENOrdering Facility: [facility] Address: [address] [place] [address] Performed By: #### A LLBG ####[facility] [id number] [place] [address] [place] Calcium.ionized adjusted to pH 7.4 (BldA) [Moles/Vol] 1.13 mmol/L Normal 1.08-1.30 [facility] Comment on above: Order Comment: Speci men Type: ARTERIAL BLOOD SPECIMENOrdering Facility: [facility] Address: [address] [place] [address] Performed By: #### A LLBG ####[facility] [id number] [place] [address] [place] Carboxyhemoglobin (BldA) [Mass fraction] 2.1 % High 0.0-2.0 [facility] Comment on above: Order Comment: Speci men Type: ARTERIAL BLOOD SPECIMENOrdering Facility: [facility] Address: [address] [place] [address] Result Comment: Carb oxyhemoglobin Reference Range for Smokers: 2.0-8.0% Performed By: #### A LLBG ####[facility] [id number] [place] [address] [place] CO2 (Bld) [Partial pressure] 45 mm Hg Normal 36-46 [facility] Comment on above: Order Comment: Speci men Type: ARTERIAL BLOOD SPECIMENOrdering Facility: [facility] Address: [address] [place] [address] Performed By: #### A LLBG ####[facility] LABCLIA [id number] [place] [address] [place] CO2 adjusted to patient's actual temperature (Bld) [Partial pressure] 47 mmHg High 36-46 [facility] Comment on above: Order Comment: Speci men Type: ARTERIAL BLOOD SPECIMENOrdering Facility: [facility] Address: [address] [place] [address] Performed By: #### A LLBG ####[facility] LABCLIA [id number] [place] [address] [place] FIO2 40 % Normal [facility] Comment on above: Order Comment: Speci men Type: ARTERIAL BLOOD SPECIMENOrdering Facility: [facility] Address: [address] [place] [address] Performed By: #### A LLBG ####[facility] LABCLIA [id number] [place] [address] [place] Glucose [Mass/Vol] 160 mg/dL High 60-105 [facility] Comment on above: Order Comment: Speci men Type: ARTERIAL BLOOD SPECIMENOrdering Facility: [facility] Address: [address] [place] [address] Performed By: #### A LLBG ####[facility] LABCLIA [id number] [place] [address] [place] HCO3 (Bld) [Moles/Vol] 23 mmol/L Normal 22-26 [facility] Comment on above: Order Comment: Speci men Type: ARTERIAL BLOOD SPECIMENOrdering Facility: [facility] Address: [address] [place] [address] Performed By: #### A LLBG ####[facility] LABCLIA [id number] [place] [address] [place] Hematocrit (Bld) [Volume fraction] 30.8 % Low 36.0-46.0 [facility] Comment on above: Order Comment: Speci men Type: ARTERIAL BLOOD SPECIMENOrdering Facility: [facility] Address: [address] [place] [address] Performed By: #### A LLBG ####[facility] LABCLIA [id number] [place] [address] [place] Hemoglobin (Bld) [Mass/Vol] 10.0 g/dL Low 11.5-15.5 [facility] Comment on above: Order Comment: Speci men Type: ARTERIAL BLOOD SPECIMENOrdering Facility: [facility] Address: [address] [place] [address] Performed By: #### A LLBG ####[facility] LABCLIA [id number] [place] [address] [place] INVASIVE VENTILATOR MODE Pressure Support, CPAP (PC-CSVs) Normal [facility] Comment on above: Order Comment: Speci men Type: ARTERIAL BLOOD SPECIMENOrdering Facility: [facility] Address: [address] [place] [address] Performed By: #### A LLBG ####[facility] LABIA [id number] [place] [address] [place] Lactate [Moles/Vol] 1.3 mmol/L Normal 0.5-2.2 [facility] Comment on above: Order Comment: Speci men Type: ARTERIAL BLOOD SPECIMENOrdering Facility: [facility] Address: [address] [place] [address] Performed By: #### A LLBG ####[facility] LABCLIA [id number] [place] [address] [place] Methemoglobin (Bld) [Mass fraction] 0.4 % Normal 0.0-1.5 [facility] Comment on above: Order Comment: Speci men Type: ARTERIAL BLOOD SPECIMENOrdering Facility: [facility] Address: [address] [place] [address] Performed By: #### A LLBG ####[facility] LABCLIA [id number] [place] [id number] [place] O2 THERAPY RA=Room Air Normal [facility] Comment on above: Order Comment: Speci men Type: ARTERIAL BLOOD SPECIMENOrdering Facility: [facility] Address: [address] [place], [place] [id number] Performed By: #### A LLBG ####[facility] LABCLIA [id number] [place] [id number] [place] Oxygen (Bld) [Partial pressure] 131 mm Hg High 85-95 [facility] Comment on above: Order Comment: Speci men Type: ARTERIAL BLOOD SPECIMENOrdering Facility: [facility] Address: [address] [place], [place] [id number] Performed By: #### A LLBG ####[facility] LABCLIA [id number] [place] [address] [place] Oxygen adjusted to patient's actual temperature (Bld) [Partial pressure] 135 mmHg High 85-95 [facility] Comment on above: Order Comment: Speci men Type: ARTERIAL BLOOD SPECIMENOrdering Facility: [facility] Address: [address] [place], [place] [address] Performed By: #### A LLBG ####[facility] LABCLIA [id number] [place] [id number] [place] Oxyhemoglobin (BldA) [Mass fraction] 97 % Normal 95-98 [facility] Comment on above: Order Comment: Speci men Type: ARTERIAL BLOOD SPECIMENOrdering Facility: [facility] Address: [address] [place], [place] [address] Performed By: #### A LLBG ####[facility] LABCLIA [id number] [place] [id number] [place] PEEP/CPAP 8 cmH2O Normal [facility] Comment on above: Order Comment: Speci men Type: ARTERIAL BLOOD SPECIMENOrdering Facility: [facility] Address: [address] [place] [address] Performed By: #### A LLBG ####[facility] LABCLIA [id number] [place] [address] [place] pH (Bld) 7.33 [pH] Low 7.35-7.45 [facility] Comment on above: Order Comment: Speci men Type: ARTERIAL BLOOD SPECIMENOrdering Facility: [facility] Address: [address] [place] [address] Performed By: #### A LLBG ####[facility] LABIA [id number] [place] [address] [place] pH adjusted to patient's actual temperature (Bld) 7.32 Low 7.35-7.45 [facility] Comment on above: Order Comment: Speci men Type: ARTERIAL BLOOD SPECIMENOrdering Facility: [facility] Address: [address] [place] [address] Performed By: #### A LLBG ####[facility] LABIA [id number] [place] [address] [place] Potassium [Moles/Vol] 4.4 mmol/L Normal 3.5-5.[address] [facility] Comment on above: Order Comment: Speci men Type: ARTERIAL BLOOD SPECIMENOrdering Facility: [facility] Address: [address] [place] [address] Performed By: #### A LLBG ####[facility] LABCLIA [id number] [place] [address] [place] Sodium [Moles/Vol] 137 mmol/L Normal 136-144 [facility] Comment on above: Order Comment: Speci men Type: ARTERIAL BLOOD SPECIMENOrdering Facility: [facility] Address: [address] [place] [address] Performed By: #### A LLBG ####[facility] LABIA [id number] [place] [address] [place] Base deficit (BldA) [Moles/Vol] -3 mmol/L Low -2-0 [facility] Comment on above: Order Comment: Speci men Type: ARTERIAL BLOOD SPECIMENOrdering Facility: [facility] Address: [address] [place] [address] Performed By: #### A LLBG ####[facility] LABIA [id number] [place] [address] [place] Body temperature 98.6 [degF] Normal [facility] Comment on above: Order Comment: Speci men Type: ARTERIAL BLOOD SPECIMENOrdering Facility: [facility] Address: [address] [place] [address] Performed By: #### A LLBG ####[facility] LABIA [id number] [place] [address] [place] Calcium.ionized (Bld) [Mass/Vol] 1.18 mmol/L Normal 1.08-1.30 [facility] Comment on above: Order Comment: Speci men Type: ARTERIAL BLOOD SPECIMENOrdering Facility: [facility] Address: [address] [place] [address] Performed By: #### A LLBG ####[facility] LABIA [id number] [place] [address] [place] Calcium.ionized adjusted to pH 7.4 (BldA) [Moles/Vol] 1.11 mmol/L Normal 1.08-1.30 [facility] Comment on above: Order Comment: Speci men Type: ARTERIAL BLOOD SPECIMENOrdering Facility: [facility] Address: [address] [place] [address] Performed By: #### A LLBG ####[facility] LABIA [id number] [place] [address] [place] Carboxyhemoglobin (BldA) [Mass fraction] 2.2 % High 0.0-2.0 [facility] Comment on above: Order Comment: Speci men Type: ARTERIAL BLOOD SPECIMENOrdering Facility: [facility] Address: [address] [place] [address] Result Comment: Carb oxyhemoglobin Reference Range for Smokers: 2.0-8.0% Performed By: #### A LLBG ####[facility] LABCLIA [id number] [place] [address] [place] CO2 (Bld) [Partial pressure] 51 mm Hg High 36-46 [facility] Comment on above: Order Comment: Speci men Type: ARTERIAL BLOOD SPECIMENOrdering Facility: [facility] Address: [address] [place] [address] Performed By: #### A LLBG ####[facility] LABCLIA [id number] [place] [address] [place] Glucose [Mass/Vol] 174 mg/dL High 60-105 [facility] Comment on above: Order Comment: Speci men Type: ARTERIAL BLOOD SPECIMENOrdering Facility: [facility] Address: [address] [place] [address] Performed By: #### A LLBG ####[facility] LABCLIA [id number] [place] [address] [place] HCO3 (Bld) [Moles/Vol] 23 mmol/L Normal 22-26 [facility] Comment on above: Order Comment: Speci men Type: ARTERIAL BLOOD SPECIMENOrdering Facility: [facility] Address: [address] [place] [address] Performed By: #### A LLBG ####[facility] LABCLIA [id number] [place] [address] [place] Hematocrit (Bld) [Volume fraction] 31.8 % Low 36.0-46.0 [facility] Comment on above: Order Comment: Speci men Type: ARTERIAL BLOOD SPECIMENOrdering Facility: [facility] Address: [address] [place] [address] Performed By: #### A LLBG ####[facility] LABCLIA [id number] [place] [address] [place] Hemoglobin (Bld) [Mass/Vol] 10.3 g/dL Low 11.5-15.5 [facility] Comment on above: Order Comment: Speci men Type: ARTERIAL BLOOD SPECIMENOrdering Facility: [facility] Address: [address] [place] [address] Performed By: #### A LLBG ####[facility] LABCLIA [id number] [place] [address] [place] Lactate [Moles/Vol] 1.3 mmol/L Normal 0.5-2.2 [facility] Comment on above: Order Comment: Speci men Type: ARTERIAL BLOOD SPECIMENOrdering Facility: [facility] Address: [address] [place] [address] Performed By: #### A LLBG ####[facility] LABCLIA [id number] [place] [address] [place] Methemoglobin (Bld) [Mass fraction] 0.7 % Normal 0.0-1.5 [facility] Comment on above: Order Comment: Speci men Type: ARTERIAL BLOOD SPECIMENOrdering Facility: [facility] Address: [address] [place] [address] Performed By: #### A LLBG ####[facility] LABCLIA [id number] [place] [address] [place] O2 THERAPY Ventilator Normal [facility] Comment on above: Order Comment: Speci men Type: ARTERIAL BLOOD SPECIMENOrdering Facility: [facility] Address: [address] [place] [address] Performed By: #### A LLBG ####[facility] LABCLIA [id number] [place] [address] [place] Oxygen (Bld) [Partial pressure] 88 mm Hg Normal 85-95 [facility] Comment on above: Order Comment: Speci men Type: ARTERIAL BLOOD SPECIMENOrdering Facility: [facility] Address: [address] [place] [address] Performed By: #### A LLBG ####[facility] LABCLIA [id number] [place] [address] [place] Oxyhemoglobin (BldA) [Mass fraction] 93 % Low 95-98 [facility] Comment on above: Order Comment: Speci men Type: ARTERIAL BLOOD SPECIMENOrdering Facility: [facility] Address: [address] [place] [address] Performed By: #### A LLBG ####[facility] LABIA [id number] [place] [address] [place] pH (Bld) 7.28 [pH] Low 7.35-7.45 [facility] Comment on above: Order Comment: Speci men Type: ARTERIAL BLOOD SPECIMENOrdering Facility: [facility] Address: [address] [place] [address] Performed By: #### A LLBG ####[facility] LABCLIA [id number] [place] [address] [place] Potassium [Moles/Vol] 4.4 mmol/L Normal 3.5-5.[address] [facility] Comment on above: Order Comment: Speci men Type: ARTERIAL BLOOD SPECIMENOrdering Facility: [facility] Address: [address] [place] [address] Performed By: #### A LLBG ####[facility] LABCLIA [id number] [place] [address] [place] Sodium [Moles/Vol] 137 mmol/L Normal 136-144 [facility] Comment on above: Order Comment: Speci men Type: ARTERIAL BLOOD SPECIMENOrdering Facility: [facility] Address: [address] [place] [address] Performed By: #### A LLBG ####[facility] LABCLIA [id number] [place] [address] [place] Base deficit (BldA) [Moles/Vol] -3 mmol/L Low -2-0 [facility] Comment on above: Order Comment: Speci men Type: ARTERIAL BLOOD SPECIMENOrdering Facility: [facility] Address: [address] [place] [address] Performed By: #### A LLBG ####[facility] LABCLIA [id number] [place] [address] [place] Body temperature 98.6 [degF] Normal [facility] Comment on above: Order Comment: Speci men Type: ARTERIAL BLOOD SPECIMENOrdering Facility: [facility] Address: [address] [place] [address] Performed By: #### A LLBG ####[facility] LABCLIA [id number] [address] [place] Order Comment: Speci men Type: VENOUS BLOOD SPECIMENOrdering Facility: [facility] Address: [address] [place] [address] Performed By: #### 2 4344-4 ####[facility] LABCLIA [id number] [place] [address] [place] Calcium.ionized (Bld) [Mass/Vol] 1.18 mmol/L Normal 1.08-1.30 [facility] Comment on above: Order Comment: Speci men Type: ARTERIAL BLOOD SPECIMENOrdering Facility: [facility] Address: [address] [place] [address] Performed By: #### A LLBG ####[facility] LABCLIA [id number] [place] [address] [place] Calcium.ionized adjusted to pH 7.4 (BldA) [Moles/Vol] 1.15 mmol/L Normal 1.08-1.30 [facility] Comment on above: Order Comment: Speci men Type: ARTERIAL BLOOD SPECIMENOrdering Facility: [facility] Address: [address] [place] [address] Performed By: #### A LLBG ####[facility] LABCLIA [id number] [place] [address] [place] Carboxyhemoglobin (BldA) [Mass fraction] 2.2 % High 0.0-2.0 [facility] Comment on above: Order Comment: Speci men Type: ARTERIAL BLOOD SPECIMENOrdering Facility: [facility] Address: [address] [place] [address] Result Comment: Carb oxyhemoglobin Reference Range for Smokers: 2.0-8.0% Performed By: #### A LLBG ####[facility] LABCLIA [id number] [place] [address] [place] CO2 (Bld) [Partial pressure] 43 mm Hg Normal 36-46 [facility] Comment on above: Order Comment: Speci men Type: ARTERIAL BLOOD SPECIMENOrdering Facility: [facility] Address: [address] [place] [address] Performed By: #### A LLBG ####[facility] LABCLIA [id number] [place] [address] [place] Glucose [Mass/Vol] 189 mg/dL High 60-105 [facility] Comment on above: Order Comment: Speci men Type: ARTERIAL BLOOD SPECIMENOrdering Facility: [facility] Address: [address] [place] [address] Performed By: #### A LLBG ####[facility] LABCLIA [id number] [place] [address] [place] HCO3 (Bld) [Moles/Vol] 23 mmol/L Normal 22-26 [facility] Comment on above: Order Comment: Speci men Type: ARTERIAL BLOOD SPECIMENOrdering Facility: [facility] Address: [address] [place] [address] Performed By: #### A LLBG ####[facility] LABCLIA [id number] [place] [address] [place] Hematocrit (Bld) [Volume fraction] 31.6 % Low 36.0-46.0 [facility] Comment on above: Order Comment: Speci men Type: ARTERIAL BLOOD SPECIMENOrdering Facility: [facility] Address: [address] [place] [address] Performed By: #### A LLBG ####[facility] LABCLIA [id number] [place] [address] [place] Hemoglobin (Bld) [Mass/Vol] 10.2 g/dL Low 11.5-15.5 [facility] Comment on above: Order Comment: Speci men Type: ARTERIAL BLOOD SPECIMENOrdering Facility: [facility] Address: [address] [place] [address] Performed By: #### A LLBG ####[facility] LABCLIA [id number] [place] [address] [place] Lactate [Moles/Vol] 1.6 mmol/L Normal 0.5-2.2 [facility] Comment on above: Order Comment: Speci men Type: ARTERIAL BLOOD SPECIMENOrdering Facility: [facility] Address: [address] [place] [address] Performed By: #### A LLBG ####[facility] LABCLIA [id number] [place] [address] [place] Methemoglobin (Bld) [Mass fraction] 1.0 % Normal 0.0-1.5 [facility] Comment on above: Order Comment: Speci men Type: ARTERIAL BLOOD SPECIMENOrdering Facility: [facility] Address: [address] [place] [address] Performed By: #### A LLBG ####[facility] LABCLIA [id number] [place] [address] [place] Order Comment: Speci men Type: VENOUS BLOOD SPECIMENOrdering Facility: [facility] Address: [address] [place] [id number] Performed By: #### 2 4344-4 ####[facility] LABCLIA [id number] [address] [address] [place] O2 THERAPY Ventilator Normal [facility] Comment on above: Order Comment: Speci men Type: ARTERIAL BLOOD SPECIMENOrdering Facility: [facility] Address: [address] [place] [address] Performed By: #### A LLBG ####[facility] LABCLIA [id number] [address] [address] [place] Order Comment: Speci men Type: VENOUS BLOOD SPECIMENOrdering Facility: [facility] Address: [address] [place] [address] Performed By: #### 2 4344-4 ####[facility] LABCLIA [id number] [place] [address] [place] Oxygen (Bld) [Partial pressure] 124 mm Hg High 85-95 [facility] Comment on above: Order Comment: Speci men Type: ARTERIAL BLOOD SPECIMENOrdering Facility: [facility] Address: [address] [place] [address] Performed By: #### A LLBG ####[facility] LABCLIA [id number] [address] [address] [place] Oxyhemoglobin (BldA) [Mass fraction] 96 % Normal 95-98 [facility] Comment on above: Order Comment: Speci men Type: ARTERIAL BLOOD SPECIMENOrdering Facility: [facility] Address: [address] [place] [id number] Performed By: #### A LLBG ####[facility] LABCLIA [id number] [place] [id number] [place] pH (Bld) 7.34 [pH] Low 7.35-7.45 [facility] Comment on above: Order Comment: Speci men Type: ARTERIAL BLOOD SPECIMENOrdering Facility: [facility] Address: [address] [place] [address] Performed By: #### A LLBG ####[facility] LABCLIA [id number] [place] [address] [place] Potassium [Moles/Vol] 4.3 mmol/L Normal 3.5-5.[address] [facility] Comment on above: Order Comment: Speci men Type: ARTERIAL BLOOD SPECIMENOrdering Facility: [facility] Address: [address] [place] [address] Performed By: #### A LLBG ####[facility] LABCLIA [id number] [place] [address] [place] Order Comment: Speci men Type: VENOUS BLOOD SPECIMENOrdering Facility: [facility] Address: [address] [place] [address] Performed By: #### 2 4344-4 ####[facility] LABCLIA [id number] [place] [address] [place] Sodium [Moles/Vol] 137 mmol/L Normal 136-144 [facility] Comment on above: Order Comment: Speci men Type: ARTERIAL BLOOD SPECIMENOrdering Facility: [facility] Address: [address] [place] [address] Performed By: #### A LLBG ####[facility] LABCLIA [id number] [place] [address] [place] Base deficit (BldA) [Moles/Vol] -4 mmol/L Low -2-0 [facility] Comment on above: Order Comment: Speci men Type: ARTERIAL BLOOD SPECIMENOrdering Facility: [facility] Address: [address] [place] [address] Performed By: #### A LLBG ####[facility] LABCLIA [id number] [place] [address] [place] Calcium.ionized (Bld) [Mass/Vol] 1.19 mmol/L Normal 1.08-1.30 [facility] Comment on above: Order Comment: Speci men Type: ARTERIAL BLOOD SPECIMENOrdering Facility: [facility] Address: [address] [place] [address] Performed By: #### A LLBG ####[facility] LABCLIA [id number] [place] [address] [place] Calcium.ionized adjusted to pH 7.4 (BldA) [Moles/Vol] 1.11 mmol/L Normal 1.08-1.30 [facility] Comment on above: Order Comment: Speci men Type: ARTERIAL BLOOD SPECIMENOrdering Facility: [facility] Address: [address] [place] [address] Performed By: #### A LLBG ####[facility] LABCLIA [id number] [place] [address] [place] Carboxyhemoglobin (BldA) [Mass fraction] 2.1 % High 0.0-2.0 [facility] Comment on above: Order Comment: Speci men Type: ARTERIAL BLOOD SPECIMENOrdering Facility: [facility] Address: [address] [place] [address] Result Comment: Carb oxyhemoglobin Reference Range for Smokers: 2.0-8.0% Performed By: #### A LLBG ####[facility] LABIA [id number] [place] [address] [place] CO2 (Bld) [Partial pressure] 52 mm Hg High 36-46 [facility] Comment on above: Order Comment: Speci men Type: ARTERIAL BLOOD SPECIMENOrdering Facility: [facility] Address: [address] [place] [address] Performed By: #### A LLBG ####[facility] LABCLIA [id number] [place] [address] [place] Glucose [Mass/Vol] 219 mg/dL High 60-105 [facility] Comment on above: Order Comment: Speci men Type: ARTERIAL BLOOD SPECIMENOrdering Facility: [facility] Address: [address] [place] [address] Performed By: #### A LLBG ####[facility] LABCLIA [id number] [place] [address] [place] HCO3 (Bld) [Moles/Vol] 23 mmol/L Normal 22-26 [facility] Comment on above: Order Comment: Speci men Type: ARTERIAL BLOOD SPECIMENOrdering Facility: [facility] Address: [address] [place] [address] Performed By: #### A LLBG ####[facility] LABCLIA [id number] [place] [address] [place] Hematocrit (Bld) [Volume fraction] 31.9 % Low 36.0-46.0 [facility] Comment on above: Order Comment: Speci men Type: ARTERIAL BLOOD SPECIMENOrdering Facility: [facility] Address: [address] [place] [address] Performed By: #### A LLBG ####[facility] LABIA [id number] [place] [address] [place] Hemoglobin (Bld) [Mass/Vol] 10.3 g/dL Low 11.5-15.5 [facility] Comment on above: Order Comment: Speci men Type: ARTERIAL BLOOD SPECIMENOrdering Facility: [facility] Address: [address] [place] [address] Performed By: #### A LLBG ####[facility] LABCLIA [id number] [place] [address] [place] Lactate [Moles/Vol] 1.8 mmol/L Normal 0.5-2.2 [facility] Comment on above: Order Comment: Speci men Type: ARTERIAL BLOOD SPECIMENOrdering Facility: [facility] Address: [address] [place] [address] Performed By: #### A LLBG ####[facility] LABCLIA [id number] [place] [address] [place] Oxygen (Bld) [Partial pressure] 90 mm Hg Normal 85-95 [facility] Comment on above: Order Comment: Speci men Type: ARTERIAL BLOOD SPECIMENOrdering Facility: [facility] Address: [address] [place] [address] Performed By: #### A LLBG ####[facility] LABCLIA [id number] [place] [address] [place] Oxyhemoglobin (BldA) [Mass fraction] 93 % Low 95-98 [facility] Comment on above: Order Comment: Speci men Type: ARTERIAL BLOOD SPECIMENOrdering Facility: [facility] Address: [address] [place] [address] Performed By: #### A LLBG ####[facility] LABCLIA [id number] [place] [address] [place] pH (Bld) 7.26 [pH] Low 7.35-7.45 [facility] Comment on above: Order Comment: Speci men Type: ARTERIAL BLOOD SPECIMENOrdering Facility: [facility] Address: [address] [place] [address] Performed By: #### A LLBG ####[facility] LABCLIA [id number] [place] [address] [place] Potassium [Moles/Vol] 4.4 mmol/L Normal 3.5-5.[address] [facility] Comment on above: Order Comment: Speci men Type: ARTERIAL BLOOD SPECIMENOrdering Facility: [facility] Address: [address] [place] [address] Performed By: #### A LLBG ####[facility] LABIA [id number] [place] [address] [place] Sodium [Moles/Vol] 137 mmol/L Normal 136-144 [facility] Comment on above: Order Comment: Speci men Type: ARTERIAL BLOOD SPECIMENOrdering Facility: [facility] Address: [address] [place] [address] Performed By: #### A LLBG ####[facility] LABIA [id number] [place] [address] [place] Base deficit (BldA) [Moles/Vol] -4 mmol/L Low -2-0 [facility] Comment on above: Order Comment: Speci men Type: ARTERIAL BLOOD SPECIMENOrdering Facility: [facility] Address: [address] [place] [address] Performed By: #### A LLBG ####[facility] [id number] [place] [address] [place] Calcium.ionized adjusted to pH 7.4 (BldA) [Moles/Vol] 1.14 mmol/L Normal 1.08-1.30 [facility] Comment on above: Order Comment: Speci men Type: ARTERIAL BLOOD SPECIMENOrdering Facility: [facility] Address: [address] [place] [address] Performed By: #### A LLBG ####[facility] [id number] [place] [address] [place] Carboxyhemoglobin (BldA) [Mass fraction] 2.2 % High 0.0-2.0 [facility] Comment on above: Order Comment: Speci men Type: ARTERIAL BLOOD SPECIMENOrdering Facility: [facility] Address: [address] [place] [address] Result Comment: Carb oxyhemoglobin Reference Range for Smokers: 2.0-8.0% Performed By: #### A LLBG ####[facility] [id number] [place] [address] [place] CO2 (Bld) [Partial pressure] 42 mm Hg Normal 36-46 [facility] Comment on above: Order Comment: Speci men Type: ARTERIAL BLOOD SPECIMENOrdering Facility: [facility] Address: [address] [place] [address] Performed By: #### A LLBG ####[facility] LABCLIA [id number] [place] [address] [place] Glucose [Mass/Vol] 195 mg/dL High 60-105 [facility] Comment on above: Order Comment: Speci men Type: ARTERIAL BLOOD SPECIMENOrdering Facility: [facility] Address: [address] [place] [address] Performed By: #### A LLBG ####[facility] LABCLIA [id number] [place] [address] [place] HCO3 (Bld) [Moles/Vol] 21 mmol/L Low 22-26 [facility] Comment on above: Order Comment: Speci men Type: ARTERIAL BLOOD SPECIMENOrdering Facility: [facility] Address: [address] [place] [address] Performed By: #### A LLBG ####[facility] LABCLIA [id number] [place] [address] [place] Hematocrit (Bld) [Volume fraction] 32.6 % Low 36.0-46.0 [facility] Comment on above: Order Comment: Speci men Type: ARTERIAL BLOOD SPECIMENOrdering Facility: [facility] Address: [address] [place] [address] Performed By: #### A LLBG ####[facility] LABCLIA [id number] [place] [address] [place] Hemoglobin (Bld) [Mass/Vol] 10.5 g/dL Low 11.5-15.5 [facility] Comment on above: Order Comment: Speci men Type: ARTERIAL BLOOD SPECIMENOrdering Facility: [facility] Address: [address] [place] [address] Performed By: #### A LLBG ####[facility] LABCLIA [id number] [place] [address] [place] Lactate [Moles/Vol] 1.9 mmol/L Normal 0.5-2.2 [facility] Comment on above: Order Comment: Speci men Type: ARTERIAL BLOOD SPECIMENOrdering Facility: [facility] Address: [address] [place] [address] Performed By: #### A LLBG ####[facility] LABCLIA [id number] [place] [address] [place] Methemoglobin (Bld) [Mass fraction] 1.8 % High 0.0-1.5 [facility] Comment on above: Order Comment: Speci men Type: ARTERIAL BLOOD SPECIMENOrdering Facility: [facility] Address: [address] [place] [address] Performed By: #### A LLBG ####[facility] LABCLIA [id number] [place] [address] [place] Oxygen (Bld) [Partial pressure] 135 mm Hg High 85-95 [facility] Comment on above: Order Comment: Speci men Type: ARTERIAL BLOOD SPECIMENOrdering Facility: [facility] Address: [address] [place] [address] Performed By: #### A LLBG ####[facility] LABCLIA [id number] [place] [address] [place] Oxyhemoglobin (BldA) [Mass fraction] 95 % Normal 95-98 [facility] Comment on above: Order Comment: Speci men Type: ARTERIAL BLOOD SPECIMENOrdering Facility: [facility] Address: [address] [place] [address] Performed By: #### A LLBG ####[facility] LABCLIA [id number] [place] [address] [place] pH (Bld) 7.33 [pH] Low 7.35-7.45 [facility] Comment on above: Order Comment: Speci men Type: ARTERIAL BLOOD SPECIMENOrdering Facility: [facility] Address: [address] [place] [address] Performed By: #### A LLBG ####[facility] LABCLIA [id number] [place] [address] [place] Potassium [Moles/Vol] 4.2 mmol/L Normal 3.5-5.[address] [facility] Comment on above: Order Comment: Speci men Type: ARTERIAL BLOOD SPECIMENOrdering Facility: [facility] Address: [address] [place] [address] Performed By: #### A LLBG ####[facility] LABCLIA [id number] [place] [address] [place] Sodium [Moles/Vol] 137 mmol/L Normal 136-144 [facility] Comment on above: Order Comment: Speci men Type: ARTERIAL BLOOD SPECIMENOrdering Facility: [facility] Address: [address] [place] [address] Performed By: #### A LLBG ####[facility] LABCLIA [id number] [place] [address] [place] CBC panel Auto (Bld)on 10-27 Erythrocyte distribution width (RBC) [Ratio] 14.1 % Normal 11.5-15.0 [facility] Comment on above: Order Comment: Speci men Type: BLOOD SPECIMENOrdering Facility: [facility] Address: [address] [place] [address] Performed By: #### 5 8410-2 ####[facility] LABCLIA [id number] [place] [address] [place] Hematocrit (Bld) [Volume fraction] 34.1 % Low 36.0-46.0 [facility] Comment on above: Order Comment: Speci men Type: BLOOD SPECIMENOrdering Facility: [facility] Address: [address] [place] [address] Performed By: #### 5 8410-2 ####[facility] LABCLIA [id number] [place] [address] [place] Hemoglobin (Bld) [Mass/Vol] 11.2 g/dL Low 11.5-15.5 [facility] Comment on above: Order Comment: Speci men Type: BLOOD SPECIMENOrdering Facility: [facility] Address: [address] [place] [address] Performed By: #### 5 8410-2 ####[facility] LABCLIA [id number] [place] [address] [place] MCH (RBC) [Entitic mass] 33.3 pg Normal 26.0-34.0 [facility] Comment on above: Order Comment: Speci men Type: BLOOD SPECIMENOrdering Facility: [facility] Address: [address] [place] [address] Performed By: #### 5 8410-2 ####[facility] LABCLIA [id number] [place] [address] [place] MCHC (RBC) [Mass/Vol] 32.8 g/dL Normal 30.5-36.[address] [facility] Comment on above: Order Comment: Speci men Type: BLOOD SPECIMENOrdering Facility: [facility] Address: [address] [place] [address] Performed By: #### 5 8410-2 ####[facility] LABIA [id number] [place] [address] [place] MCV (RBC) [Entitic vol] 101.5 fL High 80.0-100.0 [facility] Comment on above: Order Comment: Speci men Type: BLOOD SPECIMENOrdering Facility: [facility] Address: [address] [place] [address] Performed By: #### 5 8410-2 ####[facility] LABIA [id number] [place] [address] [place] Nucleated RBC (Bld) [#/Vol] 10*3/uL Normal <0.01 [facility] Comment on above: Order Comment: Speci men Type: BLOOD SPECIMENOrdering Facility: [facility] Address: [address] [place] [address] Performed By: #### 5 8410-2 ####[facility] LABIA [id number] [place] [address] [place] Platelet mean volume (Bld) [Entitic vol] 9.5 fL Normal 9.0-12.7 [facility] Comment on above: Order Comment: Speci men Type: BLOOD SPECIMENOrdering Facility: [facility] Address: [address] [place] [address] Performed By: #### 5 8410-2 ####[facility] LABIA [id number] [place] [address] [place] Platelets (Bld) [#/Vol] 201 10*3/uL Normal 150-400 [facility] Comment on above: Order Comment: Speci men Type: BLOOD SPECIMENOrdering Facility: [facility] Address: [address] [place] [address] Performed By: #### 5 8410-2 ####[facility] LABIA [id number] [place] [address] [place] RBC (Bld) [#/Vol] 3.36 10*6/uL Low 3.90-5.20 [facility] Comment on above: Order Comment: Speci men Type: BLOOD SPECIMENOrdering Facility: [facility] Address: [address] [place] [address] Performed By: #### 5 8410-2 ####[facility] LABIA [id number] [place] [address] [place] WBC (Bld) [#/Vol] 17.76 10*3/uL High 3.70-11.00 [facility] Comment on above: Order Comment: Speci men Type: BLOOD SPECIMENOrdering Facility: [facility] Address: [address] [place] [address] Performed By: #### 5 8410-2 ####[facility] LABCLIA [id number] [place] [id number] [place] CONSULT PROGon 10-28-2023 CONSULT PROG Normal [facility] Comprehensive metabolic 2000 panelon 10-28-2023 Albumin [Mass/Vol] 3.3 g/dL Low 3.9-4.9 [facility] Comment on above: Order Comment: Speci men Type: BLOOD SPECIMENOrdering Facility: [facility] Address: [address] [place] [address] Performed By: #### 2 4323-8 ####[facility] LABCLIA [id number] [place] [address] [place] ALP [Catalytic activity/Vol] 56 U/L Normal 34-123 [facility] Comment on above: Order Comment: Speci men Type: BLOOD SPECIMENOrdering Facility: [facility] Address: [address] [place] [address] Performed By: #### 2 4323-8 ####[facility] LABCLIA [id number] [place] [address] [place] ALT [Catalytic activity/Vol] 26 U/L Normal 7-38 [facility] Comment on above: Order Comment: Speci men Type: BLOOD SPECIMENOrdering Facility: [facility] Address: [address] [place] [address] Performed By: #### 2 4323-8 ####[facility] LABCLIA [id number] [place] [id number] [place] Anion gap [Moles/Vol] 14 mmol/L Normal 8-[address] [facility] Comment on above: Order Comment: Speci men Type: BLOOD SPECIMENOrdering Facility: [facility] Address: [address] [place] [address] Performed By: #### 2 4323-8 ####[facility] LABCLIA [id number] [place] [address] [place] AST [Catalytic activity/Vol] 96 U/L High 13-35 [facility] Comment on above: Order Comment: Speci men Type: BLOOD SPECIMENOrdering Facility: [facility] Address: [address] [place] [address] Performed By: #### 2 4323-8 ####[facility] LABCLIA [id number] [place] [address] [place] Bilirubin [Mass/Vol] 0.6 mg/dL Normal 0.2-1.3 [facility] Comment on above: Order Comment: Speci men Type: BLOOD SPECIMENOrdering Facility: [facility] Address: [address] [place] [address] Performed By: #### 2 4323-8 ####[facility] LABCLIA [id number] [place] [address] [place] Calcium [Mass/Vol] 8.4 mg/dL Low 8.5-10.2 [facility] Comment on above: Order Comment: Speci men Type: BLOOD SPECIMENOrdering Facility: [facility] Address: [address] [place] [address] Performed By: #### 2 4323-8 ####[facility] LABCLIA [id number] [place] [address] [place] Chloride [Moles/Vol] 106 mmol/L Normal 98-107 [facility] Comment on above: Order Comment: Speci men Type: BLOOD SPECIMENOrdering Facility: [facility] Address: [address] [place] [address] Performed By: #### 2 4323-8 ####[facility] LABCLIA [id number] [place] [address] [place] CO2 [Moles/Vol] 20 mmol/L Low 22-30 [facility] Comment on above: Order Comment: Speci men Type: BLOOD SPECIMENOrdering Facility: [facility] Address: [address] [place] [address] Performed By: #### 2 4323-8 ####[facility] LABCLIA [id number] [place] [address] [place] Creatinine [Mass/Vol] 1.86 mg/dL High 0.58-0.[address] [facility] Comment on above: Order Comment: Speci men Type: BLOOD SPECIMENOrdering Facility: [facility] Address: [address] [place] [address] Performed By: #### 2 4323-8 ####[facility] LABCLIA [id number] [place] [address] [place] Creatinine and Glomerular filtration rate.predicted panel (S/P/Bld) 30 mL/min/1.73m??? Low >=60 [facility] Comment on above: Order Comment: Speci men Type: BLOOD SPECIMENOrdering Facility: [facility] Address: [address] [place] [address] Result Comment: Malorie mated Glomerular Filtration Rate (eGFR) is calculated using the 2020 CKD-EPI creatinine equation. This equation utilizes serum creatinine, sex, and age as parameters. The creatinine assay has traceable calibration to isotope dilution-mass spectrometry. Refer to KDIGO guidelines for clinical interpretation. In patients with unstable renal function, e.g. those with acute kidney injury, the eGFR may not accurately reflect actual GFR. Performed By: #### 2 4323-8 ####[facility] LABIA [id number] [place] [address] [place] Glucose [Mass/Vol] 145 mg/dL High 74-99 [facility] Comment on above: Order Comment: Speci men Type: BLOOD SPECIMENOrdering Facility: [facility] Address: [address] [place] [address] Result Comment: The [place] [employer] (ADA) provides guidance for cutoff values for fasting glucose and random glucose. The ADA defines fasting as no caloric intake for at least 8 hours. Fasting plasma glucose results between 100 to 125 mg/dL indicate increased risk for diabetes (prediabetes).Fasting plasma glucose results greater than or equal to 126 mg/dL meet the criteria for diagnosis of diabetes. In the absence of unequivocal hyperglycemia, results should be confirmed by repeat testing. In a patient with classic symptoms of hyperglycemia or hyperglycemic crisis, random plasma glucose results greater than or equal to 200 mg/dL meet the criteria for diagnosis of diabetes.Reference: Standards of Medical Care in Diabetes 2016, [place] [employer]. Diabetes Care. 2016.39(Suppl 1). Performed By: #### 2 4323-8 ####[facility] LABCLIA [id number] [place] [address] [place] Potassium [Moles/Vol] 4.7 mmol/L Normal 3.7-5.[address] [facility] Comment on above: Order Comment: Speci men Type: BLOOD SPECIMENOrdering Facility: [facility] Address: [address] [place] [address] Performed By: #### 2 4323-8 ####[facility] LABCLIA [id number] [place] [address] [place] Protein [Mass/Vol] 5.6 g/dL Low 6.3-8.0 [facility] Comment on above: Order Comment: Speci men Type: BLOOD SPECIMENOrdering Facility: [facility] Address: [address] [place] [address] Performed By: #### 2 4323-8 ####[facility] LABCLIA [id number] [place] [address] [place] Sodium [Moles/Vol] 140 mmol/L Normal 136-144 [facility] Comment on above: Order Comment: Speci men Type: BLOOD SPECIMENOrdering Facility: [facility] Address: [address] [place] [address] Performed By: #### 2 4323-8 ####[facility] LABCLIA [id number] [place] [address] [place] Urea nitrogen [Mass/Vol] 29 mg/dL High 7-21 [facility] Comment on above: Order Comment: Speci men Type: BLOOD SPECIMENOrdering Facility: [facility] Address: [address] [place] [address] Performed By: #### 2 4323-8 ####[facility] LABCLIA [id number] [place] [address] [place] Albumin [Mass/Vol] 3.0 g/dL Low 3.9-4.9 [facility] Comment on above: Order Comment: Speci men Type: BLOOD SPECIMENOrdering Facility: [facility] Address: [address] [place] [address] Performed By: #### H STNT, 11956-8 ####[facility] LABCLIA [id number] [place] [address] [place] ALP [Catalytic activity/Vol] 60 U/L Normal 34-123 [facility] Comment on above: Order Comment: Speci men Type: BLOOD SPECIMENOrdering Facility: [facility] Address: [address] [place] [address] Performed By: #### H STNT, 96899-8 ####[facility] LABCLIA [id number] [place] [address] [place] ALT [Catalytic activity/Vol] 20 U/L Normal 7-38 [facility] Comment on above: Order Comment: Speci men Type: BLOOD SPECIMENOrdering Facility: [facility] Address: [address] [place] [address] Performed By: #### H STNT, 77539-2 ####[facility] LABCLIA [id number] [place] [address] [place] Anion gap [Moles/Vol] 14 mmol/L Normal 8-[address] [facility] Comment on above: Order Comment: Speci men Type: BLOOD SPECIMENOrdering Facility: [facility] Address: [address] [place] [address] Performed By: #### H STNT, 40183-9 ####[facility] LABCLIA [id number] [place] [address] [place] AST [Catalytic activity/Vol] 76 U/L High 13-35 [facility] Comment on above: Order Comment: Speci men Type: BLOOD SPECIMENOrdering Facility: [facility] Address: [address] [place] [address] Performed By: #### H STNT, 99737-6 ####[facility] LABCLIA [id number] [place] [address] [place] Bilirubin [Mass/Vol] 1.3 mg/dL Normal 0.2-1.3 [facility] Comment on above: Order Comment: Speci men Type: BLOOD SPECIMENOrdering Facility: [facility] Address: [address] [place] [address] Performed By: #### H STNT, 82822-2 ####[facility] LABCLIA [id number] [place] [address] [place] Calcium [Mass/Vol] 8.5 mg/dL Normal 8.5-10.2 [facility] Comment on above: Order Comment: Speci men Type: BLOOD SPECIMENOrdering Facility: [facility] Address: [address] [place] [address] Performed By: #### H STNT, 53243-1 ####[facility] LABCLIA [id number] [place] [address] [place] Chloride [Moles/Vol] 107 mmol/L Normal 98-107 [facility] Comment on above: Order Comment: Speci men Type: BLOOD SPECIMENOrdering Facility: [facility] Address: [address] [place] [address] Performed By: #### H STNT, 67511-2 ####[facility] LABCLIA [id number] [place] [id number] [place] CO2 [Moles/Vol] 19 mmol/L Low 22-30 [facility] Comment on above: Order Comment: Speci men Type: BLOOD SPECIMENOrdering Facility: [facility] Address: [address] [place] [address] Performed By: #### H STNT, 38069-4 ####[facility] LABCLIA [id number] [address] [address] [place] Creatinine [Mass/Vol] 1.33 mg/dL High 0.58-0.[address] [facility] Comment on above: Order Comment: Speci men Type: BLOOD SPECIMENOrdering Facility: [facility] Address: [address] [place] [address] Performed By: #### H STNT, 15062-1 ####[facility] LABIA [id number] [place] [address] [place] Creatinine and Glomerular filtration rate.predicted panel (S/P/Bld) 45 mL/min/1.73m??? Low >=60 [facility] Comment on above: Order Comment: Speci men Type: BLOOD SPECIMENOrdering Facility: [facility] Address: [address] [place] [address] Result Comment: Malorie mated Glomerular Filtration Rate (eGFR) is calculated using the 2020 CKD-EPI creatinine equation. This equation utilizes serum creatinine, sex, and age as parameters. The creatinine assay has traceable calibration to isotope dilution-mass spectrometry. Refer to KDIGO guidelines for clinical interpretation. In patients with unstable renal function, e.g. those with acute kidney injury, the eGFR may not accurately reflect actual GFR. Performed By: #### H STNT, 71811-5 ####[facility] LABIA [id number] [place] [address] [place] Glucose [Mass/Vol] 201 mg/dL High 74-99 [facility] Comment on above: Order Comment: Speci men Type: BLOOD SPECIMENOrdering Facility: [facility] Address: [address] [place] [address] Result Comment: The [place] [employer] (ADA) provides guidance for cutoff values for fasting glucose and random glucose. The ADA defines fasting as no caloric intake for at least 8 hours. Fasting plasma glucose results between 100 to 125 mg/dL indicate increased risk for diabetes (prediabetes).Fasting plasma glucose results greater than or equal to 126 mg/dL meet the criteria for diagnosis of diabetes. In the absence of unequivocal hyperglycemia, results should be confirmed by repeat testing. In a patient with classic symptoms of hyperglycemia or hyperglycemic crisis, random plasma glucose results greater than or equal to 200 mg/dL meet the criteria for diagnosis of diabetes.Reference: Standards of Medical Care in Diabetes 2016, [place] [employer]. Diabetes Care. 2016.39(Suppl 1). Performed By: #### H STNT, 01607-2 ####[facility] LABCLIA [id number] [place] [address] [place] Potassium [Moles/Vol] 4.3 mmol/L Normal 3.7-5.[address] [facility] Comment on above: Order Comment: Speci men Type: BLOOD SPECIMENOrdering Facility: [facility] Address: [address] [place] [address] Performed By: #### H STNT, 19334-3 ####[facility] LABCLIA [id number] [place] [address] [place] Protein [Mass/Vol] 5.4 g/dL Low 6.3-8.0 [facility] Comment on above: Order Comment: Speci men Type: BLOOD SPECIMENOrdering Facility: [facility] Address: [address] [place] [address] Performed By: #### H STNT, 29243-5 ####[facility] LABCLIA [id number] [place] [address] [place] Sodium [Moles/Vol] 140 mmol/L Normal 136-144 [facility] Comment on above: Order Comment: Speci men Type: BLOOD SPECIMENOrdering Facility: [facility] Address: [address] [place] [address] Performed By: #### H STNT, 01679-6 ####[facility] LABCLIA [id number] [place] [address] [place] Urea nitrogen [Mass/Vol] 24 mg/dL High 7-21 [facility] Comment on above: Order Comment: Speci men Type: BLOOD SPECIMENOrdering Facility: [facility] Address: [address] [place] [address] Performed By: #### H STNT, 02711-6 ####[facility] LABCLIA [id number] [place] [address] [place] Gas + CO Pnl BldVon 10-28-19 24 Body temperature 99.86 [degF] Normal [facility] Comment on above: Order Comment: Speci men Type: VENOUS BLOOD SPECIMENOrdering Facility: [facility] Address: [address] [place] [address] Performed By: #### 2 4344-4 ####[facility] LABCLIA [id number] [address] [place] Order Comment: Speci men Type: ARTERIAL BLOOD SPECIMENOrdering Facility: [facility] Address: [address] [place] [address] Performed By: #### A LLBG ####[facility] LABCLIA [id number] [place] [address] [place] HCO3 (Bld) [Moles/Vol] 23 mmol/L Normal 22-26 [facility] Comment on above: Order Comment: Speci men Type: VENOUS BLOOD SPECIMENOrdering Facility: [facility] Address: [address] [place] [address] Performed By: #### 2 4344-4 ####[facility] LABCLIA [id number] [place] [address] [place] Order Comment: Speci men Type: ARTERIAL BLOOD SPECIMENOrdering Facility: [facility] Address: [address] [place] [address] Performed By: #### A LLBG ####[facility] LABCLIA [id number] [address] [address] [place] Lactate [Moles/Vol] 1.3 mmol/L Normal 0.5-2.2 [facility] Comment on above: Order Comment: Speci men Type: VENOUS BLOOD SPECIMENOrdering Facility: [facility] Address: [address] [place], [place] [address] Performed By: #### 2 4344-4 ####[facility] LABCLIA [id number] [place] [address] [place] Order Comment: Speci men Type: ARTERIAL BLOOD SPECIMENOrdering Facility: [facility] Address: [address] [place] [address] Performed By: #### A LLBG ####[facility] LABCLIA [id number] [place] [address] [place] O2 THERAPY Hi-Flow Nasal Cannula-Heated Normal [facility] Comment on above: Order Comment: Speci men Type: VENOUS BLOOD SPECIMENOrdering Facility: [facility] Address: [address] [place], [place] [address] Performed By: #### 2 4344-4 ####[facility] LABCLIA [id number] [place] [address] [place] Order Comment: Speci men Type: ARTERIAL BLOOD SPECIMENOrdering Facility: [facility] Address: [address] [place], [place] [address] Performed By: #### A LLBG ####[facility] LABCLIA [id number] [place] [address] [place] Sodium [Moles/Vol] 139 mmol/L Normal 136-144 [facility] Comment on above: Order Comment: Speci men Type: VENOUS BLOOD SPECIMENOrdering Facility: [facility] Address: [address] [place], [place] [address] Performed By: #### 2 4344-4 ####[facility] LABCLIA [id number] [place] [address] [place] Order Comment: Speci men Type: ARTERIAL BLOOD SPECIMENOrdering Facility: [facility] Address: [address] [place] [address] Performed By: #### A LLBG ####[facility] LABCLIA [id number] [place] [address] [place] Body temperature 98.6 [degF] Normal [facility] Comment on above: Order Comment: Speci men Type: VENOUS BLOOD SPECIMENOrdering Facility: [facility] Address: [address] [place] [address] Performed By: #### 2 4344-4 ####[facility] LABCLIA [id number] [place] [address] [place] Order Comment: Speci men Type: ARTERIAL BLOOD SPECIMENOrdering Facility: [facility] Address: [address] [place] [address] Performed By: #### A LLBG ####[facility] LABCLIA [id number] [place] [address] [place] Methemoglobin (Bld) [Mass fraction] 1.0 % Normal 0.0-1.5 [facility] Comment on above: Order Comment: Speci men Type: VENOUS BLOOD SPECIMENOrdering Facility: [facility] Address: [address] [place] [address] Performed By: #### 2 4344-4 ####[facility] LABCLIA [id number] [place] [address] [place] Order Comment: Speci men Type: ARTERIAL BLOOD SPECIMENOrdering Facility: [facility] Address: [address] [place] [address] Performed By: #### A LLBG ####[facility] LABCLIA [id number] [place] [address] [place] O2 THERAPY Ventilator Normal [facility] Comment on above: Order Comment: Speci men Type: VENOUS BLOOD SPECIMENOrdering Facility: [facility] Address: [address] [place] [address] Performed By: #### 2 4344-4 ####[facility] LABCLIA [id number] [place] [address] [place] Order Comment: Speci men Type: ARTERIAL BLOOD SPECIMENOrdering Facility: [facility] Address: [address] [place] [address] Performed By: #### A LLBG ####[facility] LABCLIA [id number] [place] [address] [place] Body temperature 98.6 [degF] Normal [facility] Comment on above: Order Comment: Speci men Type: VENOUS BLOOD SPECIMENOrdering Facility: [facility] Address: [address] [place] [address] Performed By: #### 2 4344-4 ####[facility] LABCLIA [id number] [address] [place] Order Comment: Speci men Type: ARTERIAL BLOOD SPECIMENOrdering Facility: [facility] Address: [address] [place] [address] Performed By: #### A LLBG ####[facility] LABCLIA [id number] [place] [address] [place] Calcium.ionized (Bld) [Mass/Vol] 1.18 mmol/L Normal 1.08-1.30 [facility] Comment on above: Order Comment: Speci men Type: VENOUS BLOOD SPECIMENOrdering Facility: [facility] Address: [address] [place] [address] Performed By: #### 2 4344-4 ####[facility] LABCLIA [id number] [address] [place] Order Comment: Speci men Type: ARTERIAL BLOOD SPECIMENOrdering Facility: [facility] Address: [address] [place] [address] Performed By: #### A LLBG ####[facility] LABCLIA [id number] [place] [address] [place] O2 THERAPY Ventilator Normal [facility] Comment on above: Order Comment: Speci men Type: VENOUS BLOOD SPECIMENOrdering Facility: [facility] Address: [address] [place] [address] Performed By: #### 2 4344-4 ####[facility] LABCLIA [id number] [place] [address] [place] Order Comment: Speci men Type: ARTERIAL BLOOD SPECIMENOrdering Facility: [facility] Address: [address] [place] [address] Performed By: #### A LLBG ####[facility] LABCLIA [id number] [place] [address] [place] Gas and Carbon monoxide pane l (BldV)on 10-28-2023 BASE DEFICIT, VENOUS -3 mmol/L Low -2-0 [facility] Comment on above: Order Comment: Speci men Type: VENOUS BLOOD SPECIMENOrdering Facility: [facility] Address: [address] [place] [address] Performed By: #### 2 4344-4 ####[facility] LABCLIA [id number] [place] [address] [place] Calcium.ionized (Bld) [Mass/Vol] 1.15 mmol/L Normal 1.08-1.30 [facility] Comment on above: Order Comment: Speci men Type: VENOUS BLOOD SPECIMENOrdering Facility: [facility] Address: [address] [place] [address] Performed By: #### 2 4344-4 ####[facility] LABCLIA [id number] [place] [address] [place] Calcium.ionized adjusted to pH 7.4 (BldA) [Moles/Vol] 1.08 mmol/L Normal 1.08-1.30 [facility] Comment on above: Order Comment: Speci men Type: VENOUS BLOOD SPECIMENOrdering Facility: [facility] Address: [address] [place] [address] Performed By: #### 2 4344-4 ####[facility] LABCLIA [id number] [place] [address] [place] Carboxyhemoglobin (BldV) [Mass fraction] 1.0 % Normal 0.0-2.0 [facility] Comment on above: Order Comment: Speci men Type: VENOUS BLOOD SPECIMENOrdering Facility: [facility] Address: [address] [place] [address] Result Comment: Carb oxyhemoglobin Reference Range for Smokers: 2.0-8.0% Performed By: #### 2 4344-4 ####[facility] LABCLIA [id number] [place] [address] [place] CO2 (BldV) [Partial pressure] 50 mm[Hg] Normal 42-55 [facility] Comment on above: Order Comment: Speci men Type: VENOUS BLOOD SPECIMENOrdering Facility: [facility] Address: [address] [place] [address] Performed By: #### 2 4344-4 ####[facility] LABCLIA [id number] [place] [address] [place] CO2 adjusted to patient's actual temperature (BldV) [Partial pressure] 52 mmHg Normal 42-55 [facility] Comment on above: Order Comment: Speci men Type: VENOUS BLOOD SPECIMENOrdering Facility: [facility] Address: [address] [place] [address] Performed By: #### 2 4344-4 ####[facility] LABCLIA [id number] [place] [address] [place] Glucose [Mass/Vol] 148 mg/dL High 60-105 [facility] Comment on above: Order Comment: Speci men Type: VENOUS BLOOD SPECIMENOrdering Facility: [facility] Address: [address] [place] [address] Performed By: #### 2 4344-4 ####[facility] [id number] [place] [address] [place] Hematocrit (Bld) [Volume fraction] 27.9 % Low 36.0-46.0 [facility] Comment on above: Order Comment: Speci men Type: VENOUS BLOOD SPECIMENOrdering Facility: [facility] Address: [address] [place] [address] Performed By: #### 2 4344-4 ####[facility] [id number] [place] [address] [place] Hemoglobin (Bld) [Mass/Vol] 9.0 g/dL Low 11.5-15.5 [facility] Comment on above: Order Comment: Speci men Type: VENOUS BLOOD SPECIMENOrdering Facility: [facility] Address: [address] [place] [address] Performed By: #### 2 4344-4 ####[facility] [id number] [place] [address] [place] Methemoglobin (Bld) [Mass fraction] 0.5 % Normal 0.0-1.5 [facility] Comment on above: Order Comment: Speci men Type: VENOUS BLOOD SPECIMENOrdering Facility: [facility] Address: [address] [place] [address] Performed By: #### 2 4344-4 ####[facility] [id number] [place] [address] [place] Oxygen (BldV) [Partial pressure] 37 mm[Hg] Normal 35-45 [facility] Comment on above: Order Comment: Speci men Type: VENOUS BLOOD SPECIMENOrdering Facility: [facility] Address: [address] [place] [address] Performed By: #### 2 4344-4 ####[facility] LABCLIA [id number] [address] [address] [place] Oxygen adjusted to patient's actual temperature (BldV) [Partial pressure] 39 mmHg Normal 35-45 [facility] Comment on above: Order Comment: Speci men Type: VENOUS BLOOD SPECIMENOrdering Facility: [facility] Address: [address] [place], [place] [address] Performed By: #### 2 4344-4 ####[facility] LABCLIA [id number] [address] [address] [place] Oxygen saturation in Venous blood 61 % Normal 60-85 [facility] Comment on above: Order Comment: Speci men Type: VENOUS BLOOD SPECIMENOrdering Facility: [facility] Address: [address] [place] [address] Performed By: #### 2 4344-4 ####[facility] LABCLIA [id number] [place] [address] [place] Oxyhemoglobin (BldV) [Mass fraction] 60 % Normal 60-85 [facility] Comment on above: Order Comment: Speci men Type: VENOUS BLOOD SPECIMENOrdering Facility: [facility] Address: [address] [place], [place] [address] Performed By: #### 2 4344-4 ####[facility] LABCLIA [id number] [address] [address] [place] pH (BldV) 7.28 [pH] Low 7.32-7.42 [facility] Comment on above: Order Comment: Speci men Type: VENOUS BLOOD SPECIMENOrdering Facility: [facility] Address: [address] [place], [place] [address] Performed By: #### 2 4344-4 ####[facility] LABCLIA [id number] [address] [address] [place] pH adjusted to patient's actual temperature (BldV) 7.27 Low 7.32-7.42 [facility] Comment on above: Order Comment: Speci men Type: VENOUS BLOOD SPECIMENOrdering Facility: [facility] Address: [address] [place] [address] Performed By: #### 2 4344-4 ####[facility] LABCLIA [id number] [place] [address] [place] Potassium [Moles/Vol] 3.9 mmol/L Normal 3.5-5.[address] [facility] Comment on above: Order Comment: Speci men Type: VENOUS BLOOD SPECIMENOrdering Facility: [facility] Address: [address] [place] [address] Performed By: #### 2 4344-4 ####[facility] LABIA [id number] [place] [address] [place] BASE DEFICIT, VENOUS -3 mmol/L Low -2-0 [facility] Comment on above: Order Comment: Speci men Type: VENOUS BLOOD SPECIMENOrdering Facility: [facility] Address: [address] [place] [address] Performed By: #### 2 4344-4 ####[facility] LABIA [id number] [place] [address] [place] Calcium.ionized (Bld) [Mass/Vol] 1.18 mmol/L Normal 1.08-1.30 [facility] Comment on above: Order Comment: Speci men Type: VENOUS BLOOD SPECIMENOrdering Facility: [facility] Address: [address] [place] [address] Performed By: #### 2 4344-4 ####[facility] LABIA [id number] [place] [address] [place] Calcium.ionized adjusted to pH 7.4 (BldA) [Moles/Vol] 1.12 mmol/L Normal 1.08-1.30 [facility] Comment on above: Order Comment: Speci men Type: VENOUS BLOOD SPECIMENOrdering Facility: [facility] Address: [address] [place] [address] Performed By: #### 2 4344-4 ####[facility] LABCLIA [id number] [place] [address] [place] Carboxyhemoglobin (BldV) [Mass fraction] 1.3 % Normal 0.0-2.0 [facility] Comment on above: Order Comment: Speci men Type: VENOUS BLOOD SPECIMENOrdering Facility: [facility] Address: [address] [place] [address] Result Comment: Carb oxyhemoglobin Reference Range for Smokers: 2.0-8.0% Performed By: #### 2 4344-4 ####[facility] LABIA [id number] [place] [address] [place] CO2 (BldV) [Partial pressure] 47 mm[Hg] Normal 42-55 [facility] Comment on above: Order Comment: Speci men Type: VENOUS BLOOD SPECIMENOrdering Facility: [facility] Address: [address] [place] [address] Performed By: #### 2 4344-4 ####[facility] LABCLIA [id number] [place] [address] [place] CO2 adjusted to patient's actual temperature (BldV) [Partial pressure] 49 mmHg Normal 42-55 [facility] Comment on above: Order Comment: Speci men Type: VENOUS BLOOD SPECIMENOrdering Facility: [facility] Address: [address] [place] [address] Performed By: #### 2 4344-4 ####[facility] LABIA [id number] [place] [address] [place] Glucose [Mass/Vol] 111 mg/dL High 60-105 [facility] Comment on above: Order Comment: Speci men Type: VENOUS BLOOD SPECIMENOrdering Facility: [facility] Address: [address] [place] [address] Performed By: #### 2 4344-4 ####[facility] LABCLIA [id number] [place] [address] [place] Hematocrit (Bld) [Volume fraction] 29.2 % Low 36.0-46.0 [facility] Comment on above: Order Comment: Speci men Type: VENOUS BLOOD SPECIMENOrdering Facility: [facility] Address: [address] [place] [address] Performed By: #### 2 4344-4 ####[facility] LABIA [id number] [place] [address] [place] Hemoglobin (Bld) [Mass/Vol] 9.4 g/dL Low 11.5-15.5 [facility] Comment on above: Order Comment: Speci men Type: VENOUS BLOOD SPECIMENOrdering Facility: [facility] Address: [address] [place] [address] Performed By: #### 2 4344-4 ####[facility] [id number] [place] [address] [place] Lactate [Moles/Vol] 1.1 mmol/L Normal 0.5-2.2 [facility] Comment on above: Order Comment: Speci men Type: VENOUS BLOOD SPECIMENOrdering Facility: [facility] Address: [address] [place] [address] Performed By: #### 2 4344-4 ####[facility] LABIA [id number] [place] [address] [place] Methemoglobin (Bld) [Mass fraction] 1.3 % Normal 0.0-1.5 [facility] Comment on above: Order Comment: Speci men Type: VENOUS BLOOD SPECIMENOrdering Facility: [facility] Address: [address] [place] [address] Performed By: #### 2 4344-4 ####[facility] LABIA [id number] [place] [address] [place] O2 THERAPY Hi-Flow Face Mask-Heated Normal [facility] Comment on above: Order Comment: Speci men Type: VENOUS BLOOD SPECIMENOrdering Facility: [facility] Address: [address] [place] [address] Performed By: #### 2 4344-4 ####[facility] LABCLIA [id number] [address] [address] [place] Oxygen (BldV) [Partial pressure] 39 mm[Hg] Normal 35-45 [facility] Comment on above: Order Comment: Speci men Type: VENOUS BLOOD SPECIMENOrdering Facility: [facility] Address: [address] [place] [id number] Performed By: #### 2 4344-4 ####[facility] LABCLIA [id number] [address] [address] [place] Oxygen adjusted to patient's actual temperature (BldV) [Partial pressure] 41 mmHg Normal 35-45 [facility] Comment on above: Order Comment: Speci men Type: VENOUS BLOOD SPECIMENOrdering Facility: [facility] Address: [address] [place] [address] Performed By: #### 2 4344-4 ####[facility] LABCLIA [id number] [address] [address] [place] Oxygen saturation in Venous blood 65 % Normal 60-85 [facility] Comment on above: Order Comment: Speci men Type: VENOUS BLOOD SPECIMENOrdering Facility: [facility] Address: [address] [place] [address] Performed By: #### 2 4344-4 ####[facility] LABCLIA [id number] [address] [address] [place] Oxyhemoglobin (BldV) [Mass fraction] 64 % Normal 60-85 [facility] Comment on above: Order Comment: Speci men Type: VENOUS BLOOD SPECIMENOrdering Facility: [facility] Address: [address] [place] [address] Performed By: #### 2 4344-4 ####[facility] LABCLIA [id number] [place] [address] [place] pH (BldV) 7.31 [pH] Low 7.32-7.42 [facility] Comment on above: Order Comment: Speci men Type: VENOUS BLOOD SPECIMENOrdering Facility: [facility] Address: [address] [place] [address] Performed By: #### 2 4344-4 ####[facility] LABIA [id number] [place] [address] [place] pH adjusted to patient's actual temperature (BldV) 7.30 Low 7.32-7.42 [facility] Comment on above: Order Comment: Speci men Type: VENOUS BLOOD SPECIMENOrdering Facility: [facility] Address: [address] [place] [address] Performed By: #### 2 4344-4 ####[facility] LABIA [id number] [place] [address] [place] Potassium [Moles/Vol] 3.7 mmol/L Normal 3.5-5.[address] [facility] Comment on above: Order Comment: Speci men Type: VENOUS BLOOD SPECIMENOrdering Facility: [facility] Address: [address] [place] [address] Performed By: #### 2 4344-4 ####[facility] LABIA [id number] [place] [address] [place] BASE DEFICIT, VENOUS -2 mmol/L Normal -2-0 [facility] Comment on above: Order Comment: Speci men Type: VENOUS BLOOD SPECIMENOrdering Facility: [facility] Address: [address] [place] [address] Performed By: #### 2 4344-4 ####[facility] LABIA [id number] [place] [address] [place] Calcium.ionized (Bld) [Mass/Vol] 1.19 mmol/L Normal 1.08-1.30 [facility] Comment on above: Order Comment: Speci men Type: VENOUS BLOOD SPECIMENOrdering Facility: [facility] Address: [address] [place] [address] Performed By: #### 2 4344-4 ####[facility] LABIA [id number] [place] [address] [place] Calcium.ionized adjusted to pH 7.4 (BldA) [Moles/Vol] 1.13 mmol/L Normal 1.08-1.30 [facility] Comment on above: Order Comment: Speci men Type: VENOUS BLOOD SPECIMENOrdering Facility: [facility] Address: [address] [place] [address] Performed By: #### 2 4344-4 ####[facility] [id number] [place] [address] [place] Carboxyhemoglobin (BldV) [Mass fraction] 1.7 % Normal 0.0-2.0 [facility] Comment on above: Order Comment: Speci men Type: VENOUS BLOOD SPECIMENOrdering Facility: [facility] Address: [address] [place] [address] Result Comment: Carb oxyhemoglobin Reference Range for Smokers: 2.0-8.0% Performed By: #### 2 4344-4 ####[facility] LABIA [id number] [place] [address] [place] CO2 (BldV) [Partial pressure] 50 mm[Hg] Normal 42-55 [facility] Comment on above: Order Comment: Speci men Type: VENOUS BLOOD SPECIMENOrdering Facility: [facility] Address: [address] [place] [address] Performed By: #### 2 4344-4 ####[facility] LABCLIA [id number] [place] [address] [place] Glucose [Mass/Vol] 181 mg/dL High 60-105 [facility] Comment on above: Order Comment: Speci men Type: VENOUS BLOOD SPECIMENOrdering Facility: [facility] Address: [address] [place] [address] Performed By: #### 2 4344-4 ####[facility] LABCLIA [id number] [place] [id number] [place] HCO3 (Bld) [Moles/Vol] 24 mmol/L Normal 24-28 [facility] Comment on above: Order Comment: Speci men Type: VENOUS BLOOD SPECIMENOrdering Facility: [facility] Address: [address] [place] [address] Performed By: #### 2 4344-4 ####[facility] LABCLIA [id number] [place] [address] [place] Hematocrit (Bld) [Volume fraction] 30.9 % Low 36.0-46.0 [facility] Comment on above: Order Comment: Speci men Type: VENOUS BLOOD SPECIMENOrdering Facility: [facility] Address: [address] [place] [address] Performed By: #### 2 4344-4 ####[facility] LABIA [id number] [place] [address] [place] Hemoglobin (Bld) [Mass/Vol] 10.0 g/dL Low 11.5-15.5 [facility] Comment on above: Order Comment: Speci men Type: VENOUS BLOOD SPECIMENOrdering Facility: [facility] Address: [address] [place] [address] Performed By: #### 2 4344-4 ####[facility] LABIA [id number] [place] [address] [place] Lactate [Moles/Vol] 1.4 mmol/L Normal 0.5-2.2 [facility] Comment on above: Order Comment: Speci men Type: VENOUS BLOOD SPECIMENOrdering Facility: [facility] Address: [address] [place] [address] Performed By: #### 2 4344-4 ####[facility] LABCLIA [id number] [address] [address] [place] Oxygen (BldV) [Partial pressure] 37 mm[Hg] Normal 35-45 [facility] Comment on above: Order Comment: Speci men Type: VENOUS BLOOD SPECIMENOrdering Facility: [facility] Address: [address] [place] [address] Performed By: #### 2 4344-4 ####[facility] LABCLIA [id number] [place] [address] [place] Oxygen saturation in Venous blood 64 % Normal 60-85 [facility] Comment on above: Order Comment: Speci men Type: VENOUS BLOOD SPECIMENOrdering Facility: [facility] Address: [address] [place] [address] Performed By: #### 2 4344-4 ####[facility] LABCLIA [id number] [place] [id number] [place] Oxyhemoglobin (BldV) [Mass fraction] 62 % Normal 60-85 [facility] Comment on above: Order Comment: Speci men Type: VENOUS BLOOD SPECIMENOrdering Facility: [facility] Address: [address] [place], [place] [address] Performed By: #### 2 4344-4 ####[facility] LABIA [id number] [place] [address] [place] pH (BldV) 7.30 [pH] Low 7.32-7.42 [facility] Comment on above: Order Comment: Speci men Type: VENOUS BLOOD SPECIMENOrdering Facility: [facility] Address: [address] [place] [address] Performed By: #### 2 4344-4 ####[facility] LABCLIA [id number] [address] [address] [place] Sodium [Moles/Vol] 138 mmol/L Normal 136-144 [facility] Comment on above: Order Comment: Speci men Type: VENOUS BLOOD SPECIMENOrdering Facility: [facility] Address: [address] [place] [address] Performed By: #### 2 4344-4 ####[facility] LABIA [id number] [place] [address] [place] BASE DEFICIT, VENOUS -3 mmol/L Low -2-0 [facility] Comment on above: Order Comment: Speci men Type: VENOUS BLOOD SPECIMENOrdering Facility: [facility] Address: [address] [place] [address] Performed By: #### 2 4344-4 ####[facility] [id number] [place] [address] [place] Calcium.ionized (Bld) [Mass/Vol] 1.17 mmol/L Normal 1.08-1.30 [facility] Comment on above: Order Comment: Speci men Type: VENOUS BLOOD SPECIMENOrdering Facility: [facility] Address: [address] [place] [address] Performed By: #### 2 4344-4 ####[facility] [id number] [place] [address] [place] Calcium.ionized adjusted to pH 7.4 (BldA) [Moles/Vol] 1.07 mmol/L Low 1.08-1.30 [facility] Comment on above: Order Comment: Speci men Type: VENOUS BLOOD SPECIMENOrdering Facility: [facility] Address: [address] [place] [address] Performed By: #### 2 4344-4 ####[facility] [id number] [place] [address] [place] Carboxyhemoglobin (BldV) [Mass fraction] 1.7 % Normal 0.0-2.0 [facility] Comment on above: Order Comment: Speci men Type: VENOUS BLOOD SPECIMENOrdering Facility: [facility] Address: [address] [place] [address] Result Comment: Carb oxyhemoglobin Reference Range for Smokers: 2.0-8.0% Performed By: #### 2 4344-4 ####[facility] LABCLIA [id number] [place] [address] [place] CO2 (BldV) [Partial pressure] 58 mm[Hg] High 42-55 [facility] Comment on above: Order Comment: Speci men Type: VENOUS BLOOD SPECIMENOrdering Facility: [facility] Address: [address] [place] [address] Performed By: #### 2 4344-4 ####[facility] LABCLIA [id number] [place] [address] [place] Glucose [Mass/Vol] 204 mg/dL High 60-105 [facility] Comment on above: Order Comment: Speci men Type: VENOUS BLOOD SPECIMENOrdering Facility: [facility] Address: [address] [place] [address] Performed By: #### 2 4344-4 ####[facility] LABCLIA [id number] [place] [address] [place] HCO3 (Bld) [Moles/Vol] 24 mmol/L Normal 24-28 [facility] Comment on above: Order Comment: Speci men Type: VENOUS BLOOD SPECIMENOrdering Facility: [facility] Address: [address] [place] [address] Performed By: #### 2 4344-4 ####[facility] LABCLIA [id number] [place] [address] [place] Hematocrit (Bld) [Volume fraction] 30.9 % Low 36.0-46.0 [facility] Comment on above: Order Comment: Speci men Type: VENOUS BLOOD SPECIMENOrdering Facility: [facility] Address: [address] [place] [address] Performed By: #### 2 4344-4 ####[facility] LABCLIA [id number] [address] [address] [place] Hemoglobin (Bld) [Mass/Vol] 10.0 g/dL Low 11.5-15.5 [facility] Comment on above: Order Comment: Speci men Type: VENOUS BLOOD SPECIMENOrdering Facility: [facility] Address: [address] [place], [place] [address] Performed By: #### 2 4344-4 ####[facility] LABCLIA [id number] [place] [address] [place] Lactate [Moles/Vol] 1.6 mmol/L Normal 0.5-2.2 [facility] Comment on above: Order Comment: Speci men Type: VENOUS BLOOD SPECIMENOrdering Facility: [facility] Address: [address] [place], [place] [address] Performed By: #### 2 4344-4 ####[facility] LABCLIA [id number] [place] [id number] [place] Oxygen (BldV) [Partial pressure] 42 mm[Hg] Normal 35-45 [facility] Comment on above: Order Comment: Speci men Type: VENOUS BLOOD SPECIMENOrdering Facility: [facility] Address: [address] [place], [place] [address] Performed By: #### 2 4344-4 ####[facility] LABCLIA [id number] [address] [address] [place] Oxygen saturation in Venous blood 66 % Normal 60-85 [facility] Comment on above: Order Comment: Speci men Type: VENOUS BLOOD SPECIMENOrdering Facility: [facility] Address: [address] [place] [address] Performed By: #### 2 4344-4 ####[facility] LABCLIA [id number] [address] [address] [place] Oxyhemoglobin (BldV) [Mass fraction] 64 % Normal 60-85 [facility] Comment on above: Order Comment: Speci men Type: VENOUS BLOOD SPECIMENOrdering Facility: [facility] Address: [address] [place] [id number] Performed By: #### 2 4344-4 ####[facility] LABCLIA [id number] [address] [address] [place] pH (BldV) 7.24 [pH] Low 7.32-7.42 [facility] Comment on above: Order Comment: Speci men Type: VENOUS BLOOD SPECIMENOrdering Facility: [facility] Address: [address] [place] [address] Performed By: #### 2 4344-4 ####[facility] LABCLIA [id number] [place] [address] [place] Potassium [Moles/Vol] 4.3 mmol/L Normal 3.5-5.[address] [facility] Comment on above: Order Comment: Speci men Type: VENOUS BLOOD SPECIMENOrdering Facility: [facility] Address: [address] [place] [address] Performed By: #### 2 4344-4 ####[facility] LABCLIA [id number] [place] [address] [place] Sodium [Moles/Vol] 138 mmol/L Normal 136-144 [facility] Comment on above: Order Comment: Speci men Type: VENOUS BLOOD SPECIMENOrdering Facility: [facility] Address: [address] [place] [address] Performed By: #### 2 4344-4 ####[facility] LABCLIA [id number] [place] [id number] [place] BASE DEFICIT, VENOUS -3 mmol/L Low -2-0 [facility] Comment on above: Order Comment: Speci men Type: VENOUS BLOOD SPECIMENOrdering Facility: [facility] Address: [address] [place], [place] [address] Performed By: #### 2 4344-4 ####[facility] LABCLIA [id number] [place] [address] [place] Calcium.ionized adjusted to pH 7.4 (BldA) [Moles/Vol] 1.11 mmol/L Normal 1.08-1.30 [facility] Comment on above: Order Comment: Speci men Type: VENOUS BLOOD SPECIMENOrdering Facility: [facility] Address: [address] [place] [address] Performed By: #### 2 4344-4 ####[facility] LABIA [id number] [place] [address] [place] Carboxyhemoglobin (BldV) [Mass fraction] 1.7 % Normal 0.0-2.0 [facility] Comment on above: Order Comment: Speci men Type: VENOUS BLOOD SPECIMENOrdering Facility: [facility] Address: [address] [place] [address] Result Comment: Carb oxyhemoglobin Reference Range for Smokers: 2.0-8.0% Performed By: #### 2 4344-4 ####[facility] [id number] [place] [address] [place] CO2 (BldV) [Partial pressure] 49 mm[Hg] Normal 42-55 [facility] Comment on above: Order Comment: Speci men Type: VENOUS BLOOD SPECIMENOrdering Facility: [facility] Address: [address] [place] [address] Performed By: #### 2 4344-4 ####[facility] LABIA [id number] [place] [address] [place] Glucose [Mass/Vol] 193 mg/dL High 60-105 [facility] Comment on above: Order Comment: Speci men Type: VENOUS BLOOD SPECIMENOrdering Facility: [facility] Address: [address] [place] [address] Performed By: #### 2 4344-4 ####[facility] [id number] [place] [address] [place] HCO3 (Bld) [Moles/Vol] 23 mmol/L Low 24-28 [facility] Comment on above: Order Comment: Speci men Type: VENOUS BLOOD SPECIMENOrdering Facility: [facility] Address: [address] [place] [address] Performed By: #### 2 4344-4 ####[facility] LABCLIA [id number] [place] [address] [place] Hematocrit (Bld) [Volume fraction] 31.8 % Low 36.0-46.0 [facility] Comment on above: Order Comment: Speci men Type: VENOUS BLOOD SPECIMENOrdering Facility: [facility] Address: [address] [place] [address] Performed By: #### 2 4344-4 ####[facility] LABCLIA [id number] [place] [address] [place] Hemoglobin (Bld) [Mass/Vol] 10.3 g/dL Low 11.5-15.5 [facility] Comment on above: Order Comment: Speci men Type: VENOUS BLOOD SPECIMENOrdering Facility: [facility] Address: [address] [place] [address] Performed By: #### 2 4344-4 ####[facility] LABIA [id number] [place] [address] [place] Lactate [Moles/Vol] 1.8 mmol/L Normal 0.5-2.2 [facility] Comment on above: Order Comment: Speci men Type: VENOUS BLOOD SPECIMENOrdering Facility: [facility] Address: [address] [place] [address] Performed By: #### 2 4344-4 ####[facility] LABCLIA [id number] [place] [address] [place] Methemoglobin (Bld) [Mass fraction] 1.4 % Normal 0.0-1.5 [facility] Comment on above: Order Comment: Speci men Type: VENOUS BLOOD SPECIMENOrdering Facility: [facility] Address: [address] [place] [address] Performed By: #### 2 4344-4 ####[facility] LABCLIA [id number] [address] [address] [place] Oxygen (BldV) [Partial pressure] 40 mm[Hg] Normal 35-45 [facility] Comment on above: Order Comment: Speci men Type: VENOUS BLOOD SPECIMENOrdering Facility: [facility] Address: [address] [place], [place] [address] Performed By: #### 2 4344-4 ####[facility] LABCLIA [id number] [address] [address] [place] Oxygen saturation in Venous blood 67 % Normal 60-85 [facility] Comment on above: Order Comment: Speci men Type: VENOUS BLOOD SPECIMENOrdering Facility: [facility] Address: [address] [place], [place] [address] Performed By: #### 2 4344-4 ####[facility] LABCLIA [id number] [place] [address] [place] Oxyhemoglobin (BldV) [Mass fraction] 64 % Normal 60-85 [facility] Comment on above: Order Comment: Speci men Type: VENOUS BLOOD SPECIMENOrdering Facility: [facility] Address: [address] [place], [place] [address] Performed By: #### 2 4344-4 ####[facility] LABCLIA [id number] [address] [address] [place] pH (BldV) 7.29 [pH] Low 7.32-7.42 [facility] Comment on above: Order Comment: Speci men Type: VENOUS BLOOD SPECIMENOrdering Facility: [facility] Address: [address] [place], [place] [address] Performed By: #### 2 4344-4 ####[facility] LABCLIA [id number] [place] [address] [place] Potassium [Moles/Vol] 4.1 mmol/L Normal 3.5-5.[address] [facility] Comment on above: Order Comment: Speci men Type: VENOUS BLOOD SPECIMENOrdering Facility: [facility] Address: [address] [place] [address] Performed By: #### 2 4344-4 ####[facility] LABCLIA [id number] [place] [address] [place] Sodium [Moles/Vol] 139 mmol/L Normal 136-144 [facility] Comment on above: Order Comment: Speci men Type: VENOUS BLOOD SPECIMENOrdering Facility: [facility] Address: [address] [place] [address] Performed By: #### 2 4344-4 ####[facility] LABCL[facility] [id number] [place] [address] [place] HIGH SENSITIVITY TROPONIN To n 10-28-2023 Troponin T.cardiac High sensitivity method [Mass/Vol] 708 ng/L High <12 [facility] Comment on above: Order Comment: Speci men Type: BLOOD SPECIMENOrdering Facility: [facility] Address: [address] [place] [address] Performed By: #### H STNT, 98656-8 ####[facility] LAB[facility] [id number] [place] [address] [place] XR CHEST 1V FRONTALon 2023 XR CHEST 1V FRONTAL Normal [facility] ANES PRE-OPon 10-27-2023 ANES PRE-OP Normal [facility] ARTERIAL BLOOD GASESon 10-26 Base deficit (BldA) [Moles/Vol] -4 mmol/L Low -2-0 [facility] Comment on above: Order Comment: Speci men Type: ARTERIAL BLOOD SPECIMENOrdering Facility: [facility] Address: [address] [place] [address] Performed By: #### A LLBG ####[facility] LABCLIA [id number] [place] [address] [place] Body temperature 98.6 [degF] Normal [facility] Comment on above: Order Comment: Speci men Type: ARTERIAL BLOOD SPECIMENOrdering Facility: [facility] Address: [address] [place] [address] Performed By: #### A LLBG ####[facility] LABCLIA [id number] [place] [address] [place] Order Comment: Speci men Type: VENOUS BLOOD SPECIMENOrdering Facility: [facility] Address: [address] [place] [address] Performed By: #### 2 [id number] ####[facility] LABCLIA [id number] [place] [address] [place] Calcium.ionized (Bld) [Mass/Vol] 1.17 mmol/L Normal 1.08-1.30 [facility] Comment on above: Order Comment: Speci men Type: ARTERIAL BLOOD SPECIMENOrdering Facility: [facility] Address: [address] [place] [address] Performed By: #### A LLBG ####[facility] LABIA [id number] [place] [address] [place] Calcium.ionized adjusted to pH 7.4 (BldA) [Moles/Vol] 1.13 mmol/L Normal 1.08-1.30 [facility] Comment on above: Order Comment: Speci men Type: ARTERIAL BLOOD SPECIMENOrdering Facility: [facility] Address: [address] [place] [address] Performed By: #### A LLBG ####[facility] LABCLIA [id number] [place] [address] [place] Carboxyhemoglobin (BldA) [Mass fraction] 2.1 % High 0.0-2.0 [facility] Comment on above: Order Comment: Speci men Type: ARTERIAL BLOOD SPECIMENOrdering Facility: [facility] Address: [address] [place] [address] Result Comment: Carb oxyhemoglobin Reference Range for Smokers: 2.0-8.0% Performed By: #### A LLBG ####[facility] LABCLIA [id number] [place] [address] [place] CO2 (Bld) [Partial pressure] 40 mm Hg Normal 36-46 [facility] Comment on above: Order Comment: Speci men Type: ARTERIAL BLOOD SPECIMENOrdering Facility: [facility] Address: [address] [place] [address] Performed By: #### A LLBG ####[facility] LABCLIA [id number] [place] [address] [place] Glucose [Mass/Vol] 210 mg/dL High 60-105 [facility] Comment on above: Order Comment: Speci men Type: ARTERIAL BLOOD SPECIMENOrdering Facility: [facility] Address: [address] [place] [address] Performed By: #### A LLBG ####[facility] LABCLIA [id number] [place] [address] [place] Order Comment: Speci men Type: VENOUS BLOOD SPECIMENOrdering Facility: [facility] Address: [address] [place] [address] Performed By: #### 2 4344-4 ####[facility] LABCLIA [id number] [place] [address] [place] HCO3 (Bld) [Moles/Vol] 21 mmol/L Low 22-26 [facility] Comment on above: Order Comment: Speci men Type: ARTERIAL BLOOD SPECIMENOrdering Facility: [facility] Address: [address] [place] [address] Performed By: #### A LLBG ####[facility] LABCLIA [id number] [place] [address] [place] Hematocrit (Bld) [Volume fraction] 33.9 % Low 36.0-46.0 [facility] Comment on above: Order Comment: Speci men Type: ARTERIAL BLOOD SPECIMENOrdering Facility: [facility] Address: [address] [place] [address] Performed By: #### A LLBG ####[facility] LABCLIA [id number] [place] [address] [place] Hemoglobin (Bld) [Mass/Vol] 11.0 g/dL Low 11.5-15.5 [facility] Comment on above: Order Comment: Speci men Type: ARTERIAL BLOOD SPECIMENOrdering Facility: [facility] Address: [address] [place] [address] Performed By: #### A LLBG ####[facility] LABCLIA [id number] [place] [address] [place] Lactate [Moles/Vol] 2.1 mmol/L Normal 0.5-2.2 [facility] Comment on above: Order Comment: Speci men Type: ARTERIAL BLOOD SPECIMENOrdering Facility: [facility] Address: [address] [place] [address] Performed By: #### A LLBG ####[facility] LABCLIA [id number] [place] [address] [place] Methemoglobin (Bld) [Mass fraction] 1.6 % High 0.0-1.5 [facility] Comment on above: Order Comment: Speci men Type: ARTERIAL BLOOD SPECIMENOrdering Facility: [facility] Address: [address] [place] [address] Performed By: #### A LLBG ####[facility] LABCLIA [id number] [place] [address] [place] O2 THERAPY Ventilator Normal [facility] Comment on above: Order Comment: Speci men Type: ARTERIAL BLOOD SPECIMENOrdering Facility: [facility] Address: [address] [place] [address] Performed By: #### A LLBG ####[facility] LABCLIA [id number] [place] [address] [place] Order Comment: Speci men Type: VENOUS BLOOD SPECIMENOrdering Facility: [facility] Address: [address] [place] [address] Performed By: #### 2 4344-4 ####[facility] LABCLIA [id number] [place] [address] [place] Oxygen (Bld) [Partial pressure] 129 mm Hg High 85-95 [facility] Comment on above: Order Comment: Speci men Type: ARTERIAL BLOOD SPECIMENOrdering Facility: [facility] Address: [address] [place] [address] Performed By: #### A LLBG ####[facility] LABIA [id number] [place] [address] [place] Oxyhemoglobin (BldA) [Mass fraction] 95 % Normal 95-98 [facility] Comment on above: Order Comment: Speci men Type: ARTERIAL BLOOD SPECIMENOrdering Facility: [facility] Address: [address] [place] [address] Performed By: #### A LLBG ####[facility] LABIA [id number] [place] [address] [place] pH (Bld) 7.33 [pH] Low 7.35-7.45 [facility] Comment on above: Order Comment: Speci men Type: ARTERIAL BLOOD SPECIMENOrdering Facility: [facility] Address: [address] [place] [address] Performed By: #### A LLBG ####[facility] LABCLIA [id number] [place] [id number] [place] Potassium [Moles/Vol] 4.3 mmol/L Normal 3.5-5.[address] [facility] Comment on above: Order Comment: Speci men Type: ARTERIAL BLOOD SPECIMENOrdering Facility: [facility] Address: [address] [place] [address] Performed By: #### A LLBG ####[facility] LABCLIA [id number] [place] [address] [place] Sodium [Moles/Vol] 136 mmol/L Normal 136-144 [facility] Comment on above: Order Comment: Speci men Type: ARTERIAL BLOOD SPECIMENOrdering Facility: [facility] Address: [address] [place] [address] Performed By: #### A LLBG ####[facility] LABCLIA [id number] [place] [address] [place] Base deficit (BldA) [Moles/Vol] -3 mmol/L Low -2-0 [facility] Comment on above: Order Comment: Speci men Type: ARTERIAL BLOOD SPECIMENOrdering Facility: [facility] Address: [address] [place] [address] Performed By: #### A LLBG ####[facility] LABCLIA [id number] [place] [address] [place] Body temperature 98.6 [degF] Normal [facility] Comment on above: Order Comment: Speci men Type: ARTERIAL BLOOD SPECIMENOrdering Facility: [facility] Address: [address] [place] [address] Performed By: #### A LLBG ####[facility] LABCLIA [id number] [place] [address] [place] Order Comment: Speci men Type: VENOUS BLOOD SPECIMENOrdering Facility: [facility] Address: [address] [place] [address] Performed By: #### 2 4344-4 ####[facility] LABCLIA [id number] [place] [address] [place] Calcium.ionized (Bld) [Mass/Vol] 1.18 mmol/L Normal 1.08-1.30 [facility] Comment on above: Order Comment: Speci men Type: ARTERIAL BLOOD SPECIMENOrdering Facility: [facility] Address: [address] [place] [address] Performed By: #### A LLBG ####[facility] LABCLIA [id number] [place] [address] [place] Calcium.ionized adjusted to pH 7.4 (BldA) [Moles/Vol] 1.12 mmol/L Normal 1.08-1.30 [facility] Comment on above: Order Comment: Speci men Type: ARTERIAL BLOOD SPECIMENOrdering Facility: [facility] Address: [address] [place] [address] Performed By: #### A LLBG ####[facility] LABCLIA [id number] [place] [address] [place] Carboxyhemoglobin (BldA) [Mass fraction] 2.2 % High 0.0-2.0 [facility] Comment on above: Order Comment: Speci men Type: ARTERIAL BLOOD SPECIMENOrdering Facility: [facility] Address: [address] [place] [address] Result Comment: Carb oxyhemoglobin Reference Range for Smokers: 2.0-8.0% Performed By: #### A LLBG ####[facility] LABCLIA [id number] [place] [address] [place] CO2 (Bld) [Partial pressure] 48 mm Hg High 36-46 [facility] Comment on above: Order Comment: Speci men Type: ARTERIAL BLOOD SPECIMENOrdering Facility: [facility] Address: [address] [place] [address] Performed By: #### A LLBG ####[facility] LABCLIA [id number] [place] [address] [place] Glucose [Mass/Vol] 201 mg/dL High 60-105 [facility] Comment on above: Order Comment: Speci men Type: ARTERIAL BLOOD SPECIMENOrdering Facility: [facility] Address: [address] [place] [address] Performed By: #### A LLBG ####[facility] LABCLIA [id number] [place] [address] [place] HCO3 (Bld) [Moles/Vol] 23 mmol/L Normal 22-26 [facility] Comment on above: Order Comment: Speci men Type: ARTERIAL BLOOD SPECIMENOrdering Facility: [facility] Address: [address] [place] [address] Performed By: #### A LLBG ####[facility] LABCLIA [id number] [place] [address] [place] Hematocrit (Bld) [Volume fraction] 32.6 % Low 36.0-46.0 [facility] Comment on above: Order Comment: Speci men Type: ARTERIAL BLOOD SPECIMENOrdering Facility: [facility] Address: [address] [place] [address] Performed By: #### A LLBG ####[facility] LABCLIA [id number] [place] [address] [place] Hemoglobin (Bld) [Mass/Vol] 10.6 g/dL Low 11.5-15.5 [facility] Comment on above: Order Comment: Speci men Type: ARTERIAL BLOOD SPECIMENOrdering Facility: [facility] Address: [address] [place] [address] Performed By: #### A LLBG ####[facility] LABCLIA [id number] [place] [address] [place] Lactate [Moles/Vol] 2.2 mmol/L Normal 0.5-2.2 [facility] Comment on above: Order Comment: Speci men Type: ARTERIAL BLOOD SPECIMENOrdering Facility: [facility] Address: [address] [place] [address] Performed By: #### A LLBG ####[facility] LABCLIA [id number] [address] [address] [place] Methemoglobin (Bld) [Mass fraction] 1.1 % Normal 0.0-1.5 [facility] Comment on above: Order Comment: Speci men Type: ARTERIAL BLOOD SPECIMENOrdering Facility: [facility] Address: [address] [place] [id number] Performed By: #### A LLBG ####[facility] LABCLIA [id number] [address] [address] [place] O2 THERAPY Ventilator Normal [facility] Comment on above: Order Comment: Speci men Type: ARTERIAL BLOOD SPECIMENOrdering Facility: [facility] Address: [address] [place], [place] [id number] Performed By: #### A LLBG ####[facility] LABIA [id number] [place] [address] [place] Order Comment: Speci men Type: VENOUS BLOOD SPECIMENOrdering Facility: [facility] Address: [address] [place] [id number] Performed By: #### 2 4344-4 ####[facility] LABCLIA [id number] [place] [id number] [place] Oxygen (Bld) [Partial pressure] 83 mm Hg Low 85-95 [facility] Comment on above: Order Comment: Speci men Type: ARTERIAL BLOOD SPECIMENOrdering Facility: [facility] Address: [address] [place] [address] Performed By: #### A LLBG ####[facility] LABCLIA [id number] [place] [id number] [place] Oxyhemoglobin (BldA) [Mass fraction] 92 % Low 95-98 [facility] Comment on above: Order Comment: Speci men Type: ARTERIAL BLOOD SPECIMENOrdering Facility: [facility] Address: [address] [place] [address] Performed By: #### A LLBG ####[facility] LABCLIA [id number] [place] [address] [place] pH (Bld) 7.30 [pH] Low 7.35-7.45 [facility] Comment on above: Order Comment: Speci men Type: ARTERIAL BLOOD SPECIMENOrdering Facility: [facility] Address: [address] [place] [address] Performed By: #### A LLBG ####[facility] LABIA [id number] [place] [address] [place] Potassium [Moles/Vol] 3.9 mmol/L Normal 3.5-5.[address] [facility] Comment on above: Order Comment: Speci men Type: ARTERIAL BLOOD SPECIMENOrdering Facility: [facility] Address: [address] [place] [address] Performed By: #### A LLBG ####[facility] LABIA [id number] [place] [address] [place] Sodium [Moles/Vol] 138 mmol/L Normal 136-144 [facility] Comment on above: Order Comment: Speci men Type: ARTERIAL BLOOD SPECIMENOrdering Facility: [facility] Address: [address] [place] [address] Performed By: #### A LLBG ####[facility] LABIA [id number] [place] [address] [place] Base deficit (BldA) [Moles/Vol] -3 mmol/L Low -2-0 [facility] Comment on above: Order Comment: Speci men Type: ARTERIAL BLOOD SPECIMENOrdering Facility: [facility] Address: [address] [place] [address] Performed By: #### A LLBG ####[facility] LABIA [id number] [place] [address] [place] Calcium.ionized (Bld) [Mass/Vol] 1.18 mmol/L Normal 1.08-1.30 [facility] Comment on above: Order Comment: Speci men Type: ARTERIAL BLOOD SPECIMENOrdering Facility: [facility] Address: [address] [place] [address] Performed By: #### A LLBG ####[facility] LABCLIA [id number] [place] [address] [place] Calcium.ionized adjusted to pH 7.4 (BldA) [Moles/Vol] 1.14 mmol/L Normal 1.08-1.30 [facility] Comment on above: Order Comment: Speci men Type: ARTERIAL BLOOD SPECIMENOrdering Facility: [facility] Address: [address] [place] [address] Performed By: #### A LLBG ####[facility] LABIA [id number] [place] [address] [place] Carboxyhemoglobin (BldA) [Mass fraction] 2.6 % High 0.0-2.0 [facility] Comment on above: Order Comment: Speci men Type: ARTERIAL BLOOD SPECIMENOrdering Facility: [facility] Address: [address] [place] [address] Result Comment: Carb oxyhemoglobin Reference Range for Smokers: 2.0-8.0% Performed By: #### A LLBG ####[facility] LABIA [id number] [place] [address] [place] CO2 (Bld) [Partial pressure] 42 mm Hg Normal 36-46 [facility] Comment on above: Order Comment: Speci men Type: ARTERIAL BLOOD SPECIMENOrdering Facility: [facility] Address: [address] [place] [address] Performed By: #### A LLBG ####[facility] LABCLIA [id number] [place] [address] [place] CO2 adjusted to patient's actual temperature (Bld) [Partial pressure] 42 mmHg Normal 36-46 [facility] Comment on above: Order Comment: Speci men Type: ARTERIAL BLOOD SPECIMENOrdering Facility: [facility] Address: [address] [place] [address] Performed By: #### A LLBG ####[facility] LABCLIA [id number] [place] [address] [place] Glucose [Mass/Vol] 175 mg/dL High 60-105 [facility] Comment on above: Order Comment: Speci men Type: ARTERIAL BLOOD SPECIMENOrdering Facility: [facility] Address: [address] [place] [address] Performed By: #### A LLBG ####[facility] LABCLIA [id number] [place] [address] [place] HCO3 (Bld) [Moles/Vol] 22 mmol/L Normal 22-26 [facility] Comment on above: Order Comment: Speci men Type: ARTERIAL BLOOD SPECIMENOrdering Facility: [facility] Address: [address] [place] [address] Performed By: #### A LLBG ####[facility] LABCLIA [id number] [place] [address] [place] Hematocrit (Bld) [Volume fraction] 33.5 % Low 36.0-46.0 [facility] Comment on above: Order Comment: Speci men Type: ARTERIAL BLOOD SPECIMENOrdering Facility: [facility] Address: [address] [place] [address] Performed By: #### A LLBG ####[facility] LABCLIA [id number] [place] [address] [place] Hemoglobin (Bld) [Mass/Vol] 10.9 g/dL Low 11.5-15.5 [facility] Comment on above: Order Comment: Speci men Type: ARTERIAL BLOOD SPECIMENOrdering Facility: [facility] Address: [address] [place] [address] Performed By: #### A LLBG ####[facility] LABCLIA [id number] [place] [address] [place] Lactate [Moles/Vol] 2.2 mmol/L Normal 0.5-2.2 [facility] Comment on above: Order Comment: Speci men Type: ARTERIAL BLOOD SPECIMENOrdering Facility: [facility] Address: [address] [place] [address] Performed By: #### A LLBG ####[facility] LABCLIA [id number] [place] [address] [place] Methemoglobin (Bld) [Mass fraction] 0.9 % Normal 0.0-1.5 [facility] Comment on above: Order Comment: Speci men Type: ARTERIAL BLOOD SPECIMENOrdering Facility: [facility] Address: [address] [place] [address] Performed By: #### A LLBG ####[facility] LABCLIA [id number] [place] [address] [place] Oxygen (Bld) [Partial pressure] 255 mm Hg High 85-95 [facility] Comment on above: Order Comment: Speci men Type: ARTERIAL BLOOD SPECIMENOrdering Facility: [facility] Address: [address] [place] [address] Performed By: #### A LLBG ####[facility] LABCLIA [id number] [place] [address] [place] Oxygen adjusted to patient's actual temperature (Bld) [Partial pressure] 255 mmHg High 85-95 [facility] Comment on above: Order Comment: Speci men Type: ARTERIAL BLOOD SPECIMENOrdering Facility: [facility] Address: [address] [place] [address] Performed By: #### A LLBG ####[facility] LABCLIA [id number] [place] [address] [place] Oxyhemoglobin (BldA) [Mass fraction] 97 % Normal 95-98 [facility] Comment on above: Order Comment: Speci men Type: ARTERIAL BLOOD SPECIMENOrdering Facility: [facility] Address: [address] [place] [address] Performed By: #### A LLBG ####[facility] LABCLIA [id number] [place] [address] [place] pH (Bld) 7.34 [pH] Low 7.35-7.45 [facility] Comment on above: Order Comment: Speci men Type: ARTERIAL BLOOD SPECIMENOrdering Facility: [facility] Address: [address] [place] [address] Performed By: #### A LLBG ####[facility] LABCLIA [id number] [place] [address] [place] pH adjusted to patient's actual temperature (Bld) 7.34 Low 7.35-7.45 [facility] Comment on above: Order Comment: Speci men Type: ARTERIAL BLOOD SPECIMENOrdering Facility: [facility] Address: [address] [place] [address] Performed By: #### A LLBG ####[facility] LABCLIA [id number] [place] [address] [place] Potassium [Moles/Vol] 3.8 mmol/L Normal 3.5-5.[address] [facility] Comment on above: Order Comment: Speci men Type: ARTERIAL BLOOD SPECIMENOrdering Facility: [facility] Address: [address] [place] [address] Performed By: #### A LLBG ####[facility] LABCLIA [id number] [place] [address] [place] Sodium [Moles/Vol] 139 mmol/L Normal 136-144 [facility] Comment on above: Order Comment: Speci men Type: ARTERIAL BLOOD SPECIMENOrdering Facility: [facility] Address: [address] [place] [address] Performed By: #### A LLBG ####[facility] LABCLIA [id number] [place] [address] [place] Base deficit (BldA) [Moles/Vol] -2 mmol/L Normal -2-0 [facility] Comment on above: Order Comment: Speci men Type: ARTERIAL BLOOD SPECIMENOrdering Facility: [facility] Address: [address] [place] [address] Performed By: #### A LLBG ####[facility] LABCLIA [id number] [place] [address] [place] Calcium.ionized (Bld) [Mass/Vol] 1.12 mmol/L Normal 1.08-1.30 [facility] Comment on above: Order Comment: Speci men Type: ARTERIAL BLOOD SPECIMENOrdering Facility: [facility] Address: [address] [place] [address] Performed By: #### A LLBG ####[facility] LABCLIA [id number] [place] [address] [place] Calcium.ionized adjusted to pH 7.4 (BldA) [Moles/Vol] 1.09 mmol/L Normal 1.08-1.30 [facility] Comment on above: Order Comment: Speci men Type: ARTERIAL BLOOD SPECIMENOrdering Facility: [facility] Address: [address] [place] [address] Performed By: #### A LLBG ####[facility] LABCLIA [id number] [place] [address] [place] Carboxyhemoglobin (BldA) [Mass fraction] 2.9 % High 0.0-2.0 [facility] Comment on above: Order Comment: Speci men Type: ARTERIAL BLOOD SPECIMENOrdering Facility: [facility] Address: [address] [place] [address] Result Comment: Carb oxyhemoglobin Reference Range for Smokers: 2.0-8.0% Performed By: #### A LLBG ####[facility] LABCLIA [id number] [place] [address] [place] CO2 (Bld) [Partial pressure] 41 mm Hg Normal 36-46 [facility] Comment on above: Order Comment: Speci men Type: ARTERIAL BLOOD SPECIMENOrdering Facility: [facility] Address: [address] [place] [address] Performed By: #### A LLBG ####[facility] LABCLIA [id number] [place] [address] [place] CO2 adjusted to patient's actual temperature (Bld) [Partial pressure] 41 mmHg Normal 36-46 [facility] Comment on above: Order Comment: Speci men Type: ARTERIAL BLOOD SPECIMENOrdering Facility: [facility] Address: [address] [place] [address] Performed By: #### A LLBG ####[facility] LABCLIA [id number] [place] [address] [place] Glucose [Mass/Vol] 132 mg/dL High 60-105 [facility] Comment on above: Order Comment: Speci men Type: ARTERIAL BLOOD SPECIMENOrdering Facility: [facility] Address: [address] [place] [address] Performed By: #### A LLBG ####[facility] LABCLIA [id number] [place] [address] [place] HCO3 (Bld) [Moles/Vol] 23 mmol/L Normal 22-26 [facility] Comment on above: Order Comment: Speci men Type: ARTERIAL BLOOD SPECIMENOrdering Facility: [facility] Address: [address] [place] [address] Performed By: #### A LLBG ####[facility] LABCLIA [id number] [place] [address] [place] Hematocrit (Bld) [Volume fraction] 31.0 % Low 36.0-46.0 [facility] Comment on above: Order Comment: Speci men Type: ARTERIAL BLOOD SPECIMENOrdering Facility: [facility] Address: [address] [place] [address] Performed By: #### A LLBG ####[facility] LABCLIA [id number] [place] [address] [place] Hemoglobin (Bld) [Mass/Vol] 10.0 g/dL Low 11.5-15.5 [facility] Comment on above: Order Comment: Speci men Type: ARTERIAL BLOOD SPECIMENOrdering Facility: [facility] Address: [address] [place] [address] Performed By: #### A LLBG ####[facility] LABIA [id number] [place] [address] [place] Lactate [Moles/Vol] 2.0 mmol/L Normal 0.5-2.2 [facility] Comment on above: Order Comment: Speci men Type: ARTERIAL BLOOD SPECIMENOrdering Facility: [facility] Address: [address] [place] [address] Performed By: #### A LLBG ####[facility] LABIA [id number] [place] [address] [place] Methemoglobin (Bld) [Mass fraction] 0.3 % Normal 0.0-1.5 [facility] Comment on above: Order Comment: Speci men Type: ARTERIAL BLOOD SPECIMENOrdering Facility: [facility] Address: [address] [place] [address] Performed By: #### A LLBG ####[facility] LABIA [id number] [place] [address] [place] Oxygen (Bld) [Partial pressure] 250 mm Hg High 85-95 [facility] Comment on above: Order Comment: Speci men Type: ARTERIAL BLOOD SPECIMENOrdering Facility: [facility] Address: [address] [place] [address] Performed By: #### A LLBG ####[facility] LABIA [id number] [place] [address] [place] Oxygen adjusted to patient's actual temperature (Bld) [Partial pressure] 250 mmHg High 85-95 [facility] Comment on above: Order Comment: Speci men Type: ARTERIAL BLOOD SPECIMENOrdering Facility: [facility] Address: [address] [place] [address] Performed By: #### A LLBG ####[facility] LABCLIA [id number] [place] [address] [place] Oxyhemoglobin (BldA) [Mass fraction] 97 % Normal 95-98 [facility] Comment on above: Order Comment: Speci men Type: ARTERIAL BLOOD SPECIMENOrdering Facility: [facility] Address: [address] [place] [address] Performed By: #### A LLBG ####[facility] LABCLIA [id number] [place] [address] [place] pH (Bld) 7.36 [pH] Normal 7.35-7.45 [facility] Comment on above: Order Comment: Speci men Type: ARTERIAL BLOOD SPECIMENOrdering Facility: [facility] Address: [address] [place] [address] Performed By: #### A LLBG ####[facility] LABCLIA [id number] [place] [address] [place] pH adjusted to patient's actual temperature (Bld) 7.36 Normal 7.35-7.45 [facility] Comment on above: Order Comment: Speci men Type: ARTERIAL BLOOD SPECIMENOrdering Facility: [facility] Address: [address] [place] [address] Performed By: #### A LLBG ####[facility] LABCLIA [id number] [place] [address] [place] Potassium [Moles/Vol] 4.4 mmol/L Normal 3.5-5.[address] [facility] Comment on above: Order Comment: Speci men Type: ARTERIAL BLOOD SPECIMENOrdering Facility: [facility] Address: [address] [place] [address] Performed By: #### A LLBG ####[facility] LABCLIA [id number] [place] [address] [place] Sodium [Moles/Vol] 138 mmol/L Normal 136-144 [facility] Comment on above: Order Comment: Speci men Type: ARTERIAL BLOOD SPECIMENOrdering Facility: [facility] Address: [address] [place] [address] Performed By: #### A LLBG ####[facility] LABIA [id number] [place] [address] [place] Base deficit (BldA) [Moles/Vol] -5 mmol/L Low -2-0 [facility] Comment on above: Order Comment: Speci men Type: ARTERIAL BLOOD SPECIMENOrdering Facility: [facility] Address: [address] [place] [address] Performed By: #### A LLBG ####[facility] LABIA [id number] [place] [address] [place] Calcium.ionized (Bld) [Mass/Vol] 1.13 mmol/L Normal 1.08-1.30 [facility] Comment on above: Order Comment: Speci men Type: ARTERIAL BLOOD SPECIMENOrdering Facility: [facility] Address: [address] [place] [address] Performed By: #### A LLBG ####[facility] LABIA [id number] [place] [address] [place] Calcium.ionized adjusted to pH 7.4 (BldA) [Moles/Vol] 1.06 mmol/L Low 1.08-1.30 [facility] Comment on above: Order Comment: Speci men Type: ARTERIAL BLOOD SPECIMENOrdering Facility: [facility] Address: [address] [place] [address] Performed By: #### A LLBG ####[facility] LABCLIA [id number] [place] [address] [place] Carboxyhemoglobin (BldA) [Mass fraction] 2.3 % High 0.0-2.0 [facility] Comment on above: Order Comment: Speci men Type: ARTERIAL BLOOD SPECIMENOrdering Facility: [facility] Address: [address] [place] [address] Result Comment: Carb oxyhemoglobin Reference Range for Smokers: 2.0-8.0% Performed By: #### A LLBG ####[facility] LABIA [id number] [place] [address] [place] CO2 (Bld) [Partial pressure] 46 mm Hg Normal 36-46 [facility] Comment on above: Order Comment: Speci men Type: ARTERIAL BLOOD SPECIMENOrdering Facility: [facility] Address: [address] [place] [address] Performed By: #### A LLBG ####[facility] LABIA [id number] [place] [address] [place] CO2 adjusted to patient's actual temperature (Bld) [Partial pressure] 46 mmHg Normal 36-46 [facility] Comment on above: Order Comment: Speci men Type: ARTERIAL BLOOD SPECIMENOrdering Facility: [facility] Address: [address] [place] [address] Performed By: #### A LLBG ####[facility] LABIA [id number] [place] [address] [place] Glucose [Mass/Vol] 134 mg/dL High 60-105 [facility] Comment on above: Order Comment: Speci men Type: ARTERIAL BLOOD SPECIMENOrdering Facility: [facility] Address: [address] [place] [address] Performed By: #### A LLBG ####[facility] LABIA [id number] [place] [address] [place] HCO3 (Bld) [Moles/Vol] 21 mmol/L Low 22-26 [facility] Comment on above: Order Comment: Speci men Type: ARTERIAL BLOOD SPECIMENOrdering Facility: [facility] Address: [address] [place] [address] Performed By: #### A LLBG ####[facility] LABIA [id number] [place] [address] [place] Hematocrit (Bld) [Volume fraction] 33.5 % Low 36.0-46.0 [facility] Comment on above: Order Comment: Speci men Type: ARTERIAL BLOOD SPECIMENOrdering Facility: [facility] Address: [address] [place] [address] Performed By: #### A LLBG ####[facility] LABIA [id number] [place] [address] [place] Hemoglobin (Bld) [Mass/Vol] 10.9 g/dL Low 11.5-15.5 [facility] Comment on above: Order Comment: Speci men Type: ARTERIAL BLOOD SPECIMENOrdering Facility: [facility] Address: [address] [place] [address] Performed By: #### A LLBG ####[facility] LABIA [id number] [place] [address] [place] Lactate [Moles/Vol] 1.0 mmol/L Normal 0.5-2.2 [facility] Comment on above: Order Comment: Speci men Type: ARTERIAL BLOOD SPECIMENOrdering Facility: [facility] Address: [address] [place] [address] Performed By: #### A LLBG ####[facility] LABIA [id number] [place] [address] [place] Methemoglobin (Bld) [Mass fraction] 0.8 % Normal 0.0-1.5 [facility] Comment on above: Order Comment: Speci men Type: ARTERIAL BLOOD SPECIMENOrdering Facility: [facility] Address: [address] [place] [address] Performed By: #### A LLBG ####[facility] LABCLIA [id number] [place] [address] [place] Oxygen (Bld) [Partial pressure] 470 mm Hg High 85-95 [facility] Comment on above: Order Comment: Speci men Type: ARTERIAL BLOOD SPECIMENOrdering Facility: [facility] Address: [address] [place] [address] Performed By: #### A LLBG ####[facility] LABCLIA [id number] [place] [address] [place] Oxygen adjusted to patient's actual temperature (Bld) [Partial pressure] 470 mmHg High 85-95 [facility] Comment on above: Order Comment: Speci men Type: ARTERIAL BLOOD SPECIMENOrdering Facility: [facility] Address: [address] [place] [address] Performed By: #### A LLBG ####[facility] LABCLIA [id number] [place] [address] [place] Oxyhemoglobin (BldA) [Mass fraction] 97 % Normal 95-98 [facility] Comment on above: Order Comment: Speci men Type: ARTERIAL BLOOD SPECIMENOrdering Facility: [facility] Address: [address] [place] [address] Performed By: #### A LLBG ####[facility] LABCLIA [id number] [place] [address] [place] pH (Bld) 7.28 [pH] Low 7.35-7.45 [facility] Comment on above: Order Comment: Speci men Type: ARTERIAL BLOOD SPECIMENOrdering Facility: [facility] Address: [address] [place] [address] Performed By: #### A LLBG ####[facility] LABCLIA [id number] [place] [address] [place] pH adjusted to patient's actual temperature (Bld) 7.28 Low 7.35-7.45 [facility] Comment on above: Order Comment: Speci men Type: ARTERIAL BLOOD SPECIMENOrdering Facility: [facility] Address: [address] [place] [address] Performed By: #### A LLBG ####[facility] LABCLIA [id number] [place] [address] [place] Potassium [Moles/Vol] 4.0 mmol/L Normal 3.5-5.[address] [facility] Comment on above: Order Comment: Speci men Type: ARTERIAL BLOOD SPECIMENOrdering Facility: [facility] Address: [address] [place] [address] Performed By: #### A LLBG ####[facility] LABCLIA [id number] [place] [address] [place] Sodium [Moles/Vol] 136 mmol/L Normal 136-144 [facility] Comment on above: Order Comment: Speci men Type: ARTERIAL BLOOD SPECIMENOrdering Facility: [facility] Address: [address] [place] [address] Performed By: #### A LLBG ####[facility] LABCLIA [id number] [place] [address] [place] Order Comment: Speci men Type: VENOUS BLOOD SPECIMENOrdering Facility: [facility] Address: [address] [place] [address] Performed By: #### 2 4344-4 ####[facility] LABCLIA [id number] [place] [address] [place] Base deficit (BldA) [Moles/Vol] -6 mmol/L Low -2-0 [facility] Comment on above: Order Comment: Speci men Type: ARTERIAL BLOOD SPECIMENOrdering Facility: [facility] Address: [address] [place] [address] Performed By: #### A LLBG ####[facility] LABCLIA [id number] [place] [address] [place] Calcium.ionized (Bld) [Mass/Vol] 1.24 mmol/L Normal 1.08-1.30 [facility] Comment on above: Order Comment: Speci men Type: ARTERIAL BLOOD SPECIMENOrdering Facility: [facility] Address: [address] [place] [address] Performed By: #### A LLBG ####[facility] LABCLIA [id number] [place] [address] [place] Calcium.ionized adjusted to pH 7.4 (BldA) [Moles/Vol] 1.12 mmol/L Normal 1.08-1.30 [facility] Comment on above: Order Comment: Speci men Type: ARTERIAL BLOOD SPECIMENOrdering Facility: [facility] Address: [address] [place] [address] Performed By: #### A LLBG ####[facility] LABCLIA [id number] [place] [address] [place] Carboxyhemoglobin (BldA) [Mass fraction] 2.1 % High 0.0-2.0 [facility] Comment on above: Order Comment: Speci men Type: ARTERIAL BLOOD SPECIMENOrdering Facility: [facility] Address: [address] [place] [address] Result Comment: Carb oxyhemoglobin Reference Range for Smokers: 2.0-8.0% Performed By: #### A LLBG ####[facility] LABCLIA [id number] [place] [address] [place] CO2 (Bld) [Partial pressure] 56 mm Hg High 36-46 [facility] Comment on above: Order Comment: Speci men Type: ARTERIAL BLOOD SPECIMENOrdering Facility: [facility] Address: [address] [place] [address] Performed By: #### A LLBG ####[facility] LABCLIA [id number] [id number] [address] [place] CO2 adjusted to patient's actual temperature (Bld) [Partial pressure] 56 mmHg High 36-46 [facility] Comment on above: Order Comment: Speci men Type: ARTERIAL BLOOD SPECIMENOrdering Facility: [facility] Address: [address] [place] [address] Performed By: #### A LLBG ####[facility] LABCLIA [id number] [place] [address] [place] Glucose [Mass/Vol] 102 mg/dL Normal 60-105 [facility] Comment on above: Order Comment: Speci men Type: ARTERIAL BLOOD SPECIMENOrdering Facility: [facility] Address: [address] [place] [address] Performed By: #### A LLBG ####[facility] LABCLIA [id number] [place] [address] [place] HCO3 (Bld) [Moles/Vol] 22 mmol/L Normal 22-26 [facility] Comment on above: Order Comment: Speci men Type: ARTERIAL BLOOD SPECIMENOrdering Facility: [facility] Address: [address] [place] [address] Performed By: #### A LLBG ####[facility] LABCLIA [id number] [place] [address] [place] Hematocrit (Bld) [Volume fraction] 38.9 % Normal 36.0-46.0 [facility] Comment on above: Order Comment: Speci men Type: ARTERIAL BLOOD SPECIMENOrdering Facility: [facility] Address: [address] [place] [address] Performed By: #### A LLBG ####[facility] LABCLIA [id number] [place] [address] [place] Hemoglobin (Bld) [Mass/Vol] 12.7 g/dL Normal 11.5-15.5 [facility] Comment on above: Order Comment: Speci men Type: ARTERIAL BLOOD SPECIMENOrdering Facility: [facility] Address: [address] [place] [id number] Performed By: #### A LLBG ####[facility] LABCLIA [id number] [place] [address] [place] Lactate [Moles/Vol] 1.6 mmol/L Normal 0.5-2.2 [facility] Comment on above: Order Comment: Speci men Type: ARTERIAL BLOOD SPECIMENOrdering Facility: [facility] Address: [address] [place], [place] [address] Performed By: #### A LLBG ####[facility] LABCLIA [id number] [place] [address] [place] Methemoglobin (Bld) [Mass fraction] 1.4 % Normal 0.0-1.5 [facility] Comment on above: Order Comment: Speci men Type: ARTERIAL BLOOD SPECIMENOrdering Facility: [facility] Address: [address] [place] [address] Performed By: #### A LLBG ####[facility] LABCLIA [id number] [place] [address] [place] Oxygen (Bld) [Partial pressure] 100 mm Hg High 85-95 [facility] Comment on above: Order Comment: Speci men Type: ARTERIAL BLOOD SPECIMENOrdering Facility: [facility] Address: [address] [place], [place] [id number] Performed By: #### A LLBG ####[facility] LABCLIA [id number] [place] [address] [place] Oxygen adjusted to patient's actual temperature (Bld) [Partial pressure] 100 mmHg High 85-95 [facility] Comment on above: Order Comment: Speci men Type: ARTERIAL BLOOD SPECIMENOrdering Facility: [facility] Address: [address] [place], [place] [address] Performed By: #### A LLBG ####[facility] LABCLIA [id number] [place] [address] [place] Oxyhemoglobin (BldA) [Mass fraction] 93 % Low 95-98 [facility] Comment on above: Order Comment: Speci men Type: ARTERIAL BLOOD SPECIMENOrdering Facility: [facility] Address: [address] [place] [address] Performed By: #### A LLBG ####[facility] LABCLIA [id number] [place] [address] [place] pH (Bld) 7.22 [pH] Low 7.35-7.45 [facility] Comment on above: Order Comment: Speci men Type: ARTERIAL BLOOD SPECIMENOrdering Facility: [facility] Address: [address] [place] [address] Performed By: #### A LLBG ####[facility] LABCLIA [id number] [place] [address] [place] pH adjusted to patient's actual temperature (Bld) 7.22 Low 7.35-7.45 [facility] Comment on above: Order Comment: Speci men Type: ARTERIAL BLOOD SPECIMENOrdering Facility: [facility] Address: [address] [place] [address] Performed By: #### A LLBG ####[facility] LABCLIA [id number] [place] [address] [place] Potassium [Moles/Vol] 4.0 mmol/L Normal 3.5-5.[address] [facility] Comment on above: Order Comment: Speci men Type: ARTERIAL BLOOD SPECIMENOrdering Facility: [facility] Address: [address] [place] [address] Performed By: #### A LLBG ####[facility] LABCLIA [id number] [place] [address] [place] Sodium [Moles/Vol] 137 mmol/L Normal 136-144 [facility] Comment on above: Order Comment: Speci men Type: ARTERIAL BLOOD SPECIMENOrdering Facility: [facility] Address: [address] [place] [address] Performed By: #### A LLBG ####[facility] LABIA [id number] [place] [address] [place] ARTERIAL BLOOD GASES WITH IO NIZED MAGNESIUMon 10-27-2023 Base deficit (BldA) [Moles/Vol] -3 mmol/L Low -2-0 [facility] Comment on above: Order Comment: Speci men Type: ARTERIAL BLOOD SPECIMENOrdering Facility: [facility] Address: [address] [place] [address] Performed By: #### A LLMG ####[facility] LABIA [id number] [place] [address] [place] Calcium.ionized (Bld) [Mass/Vol] 0.86 mmol/L Low 1.08-1.30 [facility] Comment on above: Order Comment: Speci men Type: ARTERIAL BLOOD SPECIMENOrdering Facility: [facility] Address: [address] [place] [address] Performed By: #### A LLMG ####[facility] LABIA [id number] [place] [address] [place] Calcium.ionized adjusted to pH 7.4 (BldA) [Moles/Vol] 0.84 mmol/L Low 1.08-1.30 [facility] Comment on above: Order Comment: Speci men Type: ARTERIAL BLOOD SPECIMENOrdering Facility: [facility] Address: [address] [place] [address] Performed By: #### A LLMG ####[facility] LABIA [id number] [place] [address] [place] Carboxyhemoglobin (BldA) [Mass fraction] 2.6 % High 0.0-2.0 [facility] Comment on above: Order Comment: Speci men Type: ARTERIAL BLOOD SPECIMENOrdering Facility: [facility] Address: [address] [place] [address] Result Comment: Carb oxyhemoglobin Reference Range for Smokers: 2.0-8.0% Performed By: #### A LLMG ####[facility] LABCLIA [id number] [place] [address] [place] CO2 (Bld) [Partial pressure] 38 mm Hg Normal 36-46 [facility] Comment on above: Order Comment: Speci men Type: ARTERIAL BLOOD SPECIMENOrdering Facility: [facility] Address: [address] [place] [address] Performed By: #### A LLMG ####[facility] LABCLIA [id number] [place] [address] [place] CO2 adjusted to patient's actual temperature (Bld) [Partial pressure] 38 mmHg Normal 36-46 [facility] Comment on above: Order Comment: Speci men Type: ARTERIAL BLOOD SPECIMENOrdering Facility: [facility] Address: [address] [place] [address] Performed By: #### A LLMG ####[facility] LABCLIA [id number] [place] [address] [place] COMMENTS Urgent Value: Ca++, Ca(7.4) Normal [facility] Comment on above: Order Comment: Speci men Type: ARTERIAL BLOOD SPECIMENOrdering Facility: [facility] Address: [address] [place] [address] Performed By: #### A LLMG ####[facility] LABCLIA [id number] [place] [address] [place] DATE/TIME NOTIFIED [id number] PM Normal [facility] Comment on above: Order Comment: Speci men Type: ARTERIAL BLOOD SPECIMENOrdering Facility: [facility] Address: [address] [place] [address] Performed By: #### A LLMG ####[facility] LABCLIA [id number] [place] [address] [place] Glucose [Mass/Vol] 181 mg/dL High 60-105 [facility] Comment on above: Order Comment: Speci men Type: ARTERIAL BLOOD SPECIMENOrdering Facility: [facility] Address: [address] [place] [address] Performed By: #### A LLMG ####[facility] LABCLIA [id number] [place] [address] [place] HCO3 (Bld) [Moles/Vol] 22 mmol/L Normal 22-26 [facility] Comment on above: Order Comment: Speci men Type: ARTERIAL BLOOD SPECIMENOrdering Facility: [facility] Address: [address] [place] [address] Performed By: #### A LLMG ####[facility] LABCLIA [id number] [place] [address] [place] Hematocrit (Bld) [Volume fraction] 28.4 % Low 36.0-46.0 [facility] Comment on above: Order Comment: Speci men Type: ARTERIAL BLOOD SPECIMENOrdering Facility: [facility] Address: [address] [place] [address] Performed By: #### A LLMG ####[facility] LABCLIA [id number] [place] [address] [place] Hemoglobin (Bld) [Mass/Vol] 9.2 g/dL Low 11.5-15.5 [facility] Comment on above: Order Comment: Speci men Type: ARTERIAL BLOOD SPECIMENOrdering Facility: [facility] Address: [address] [place] [address] Performed By: #### A LLMG ####[facility] LABCLIA [id number] [place] [address] [place] Lactate [Moles/Vol] 2.7 mmol/L High 0.5-2.2 [facility] Comment on above: Order Comment: Speci men Type: ARTERIAL BLOOD SPECIMENOrdering Facility: [facility] Address: [address] [place] [address] Performed By: #### A LLMG ####[facility] LABCLIA [id number] [place] [address] [place] Magnesium [Moles/Vol] 0.46 mmol/L Normal 0.45-0.60 [facility] Comment on above: Order Comment: Speci men Type: ARTERIAL BLOOD SPECIMENOrdering Facility: [facility] [facility] Address: [address] [place] [address] Performed By: #### A LLMG ####[facility] LABIA [id number] [place] [address] [place] Methemoglobin (Bld) [Mass fraction] 0.9 % Normal 0.0-1.5 [facility] Comment on above: Order Comment: Speci men Type: ARTERIAL BLOOD SPECIMENOrdering Facility: [facility] Address: [address] [place] [address] Performed By: #### A LLMG ####[facility] LABIA [id number] [place] [address] [place] NOTIFIED WHOM Teena SNYDER Normal [facility] Comment on above: Order Comment: Speci men Type: ARTERIAL BLOOD SPECIMENOrdering Facility: [facility] Address: [address] [place] [address] Performed By: #### A LLMG ####[facility] LABIA [id number] [place] [address] [place] Oxygen (Bld) [Partial pressure] 297 mm Hg High 85-95 [facility] Comment on above: Order Comment: Speci men Type: ARTERIAL BLOOD SPECIMENOrdering Facility: [facility] Address: [address] [place] [address] Performed By: #### A LLMG ####[facility] LABIA [id number] [place] [id number] [place] Oxygen adjusted to patient's actual temperature (Bld) [Partial pressure] 297 mmHg High 85-95 [facility] Comment on above: Order Comment: Speci men Type: ARTERIAL BLOOD SPECIMENOrdering Facility: [facility] Address: [address] [place] [address] Performed By: #### A LLMG ####[facility] LABIA [id number] [place] [address] [place] Oxyhemoglobin (BldA) [Mass fraction] 97 % Normal 95-98 [facility] Comment on above: Order Comment: Speci men Type: ARTERIAL BLOOD SPECIMENOrdering Facility: [facility] Address: [address] [place] [address] Performed By: #### A LLMG ####[facility] LABIA [id number] [place] [address] [place] pH (Bld) 7.37 [pH] Normal 7.35-7.45 [facility] Comment on above: Order Comment: Speci men Type: ARTERIAL BLOOD SPECIMENOrdering Facility: [facility] Address: [address] [place] [address] Performed By: #### A LLMG ####[facility] LABIA [id number] [place] [address] [place] pH adjusted to patient's actual temperature (Bld) 7.37 Normal 7.35-7.45 [facility] Comment on above: Order Comment: Speci men Type: ARTERIAL BLOOD SPECIMENOrdering Facility: [facility] Address: [address] [place] [address] Performed By: #### A LLMG ####[facility] LABIA [id number] [place] [address] [place] Potassium [Moles/Vol] 3.8 mmol/L Normal 3.5-5.[address] [facility] Comment on above: Order Comment: Speci men Type: ARTERIAL BLOOD SPECIMENOrdering Facility: [facility] Address: [address] [place] [address] Performed By: #### A LLMG ####[facility] LABCLIA [id number] [place] [address] [place] Sodium [Moles/Vol] 139 mmol/L Normal 136-144 [facility] Comment on above: Order Comment: Speci men Type: ARTERIAL BLOOD SPECIMENOrdering Facility: [facility] Address: [address] [place] [address] Performed By: #### A LLMG ####[facility] LABIA [id number] [place] [address] [place] Base deficit (BldA) [Moles/Vol] -4 mmol/L Low -2-0 [facility] Comment on above: Order Comment: Speci men Type: ARTERIAL BLOOD SPECIMENOrdering Facility: [facility] Address: [address] [place] [address] Performed By: #### A LLMG ####[facility] LABIA [id number] [place] [address] [place] Calcium.ionized (Bld) [Mass/Vol] 1.15 mmol/L Normal 1.08-1.30 [facility] Comment on above: Order Comment: Speci men Type: ARTERIAL BLOOD SPECIMENOrdering Facility: [facility] Address: [address] [place] [address] Performed By: #### A LLMG ####[facility] LABIA [id number] [place] [address] [place] Calcium.ionized adjusted to pH 7.4 (BldA) [Moles/Vol] 1.10 mmol/L Normal 1.08-1.30 [facility] Comment on above: Order Comment: Speci men Type: ARTERIAL BLOOD SPECIMENOrdering Facility: [facility] Address: [address] [place] [address] Performed By: #### A LLMG ####[facility] LABIA [id number] [place] [address] [place] Carboxyhemoglobin (BldA) [Mass fraction] 2.4 % High 0.0-2.0 [facility] Comment on above: Order Comment: Speci men Type: ARTERIAL BLOOD SPECIMENOrdering Facility: [facility] Address: [address] [place] [address] Result Comment: Carb oxyhemoglobin Reference Range for Smokers: 2.0-8.0% Performed By: #### A LLMG ####[facility] LABCLIA [id number] [place] [address] [place] CO2 (Bld) [Partial pressure] 43 mm Hg Normal 36-46 [facility] Comment on above: Order Comment: Speci men Type: ARTERIAL BLOOD SPECIMENOrdering Facility: [facility] Address: [address] [place] [address] Performed By: #### A LLMG ####[facility] LABCLIA [id number] [address] [place] CO2 adjusted to patient's actual temperature (Bld) [Partial pressure] 43 mmHg Normal 36-46 [facility] Comment on above: Order Comment: Speci men Type: ARTERIAL BLOOD SPECIMENOrdering Facility: [facility] Address: [address] [place] [address] Performed By: #### A LLMG ####[facility] LABCLIA [id number] [place] [address] [place] Glucose [Mass/Vol] 144 mg/dL High 60-105 [facility] Comment on above: Order Comment: Speci men Type: ARTERIAL BLOOD SPECIMENOrdering Facility: [facility] Address: [address] [place] [address] Performed By: #### A LLMG ####[facility] LABCLIA [id number] [place] [address] [place] HCO3 (Bld) [Moles/Vol] 21 mmol/L Low 22-26 [facility] Comment on above: Order Comment: Speci men Type: ARTERIAL BLOOD SPECIMENOrdering Facility: [facility] Address: [address] [place] [address] Performed By: #### A LLMG ####[facility] LABCLIA [id number] [place] [address] [place] Hematocrit (Bld) [Volume fraction] 31.7 % Low 36.0-46.0 [facility] Comment on above: Order Comment: Speci men Type: ARTERIAL BLOOD SPECIMENOrdering Facility: [facility] Address: [address] [place] [address] Performed By: #### A LLMG ####[facility] LABCLIA [id number] [place] [address] [place] Hemoglobin (Bld) [Mass/Vol] 10.2 g/dL Low 11.5-15.5 [facility] Comment on above: Order Comment: Speci men Type: ARTERIAL BLOOD SPECIMENOrdering Facility: [facility] Address: [address] [place] [address] Performed By: #### A LLMG ####[facility] LABCLIA [id number] [place] [address] [place] Lactate [Moles/Vol] 3.3 mmol/L High 0.5-2.2 [facility] Comment on above: Order Comment: Speci men Type: ARTERIAL BLOOD SPECIMENOrdering Facility: [facility] Address: [address] [place] [address] Performed By: #### A LLMG ####[facility] LABCLIA [id number] [place] [address] [place] Magnesium [Moles/Vol] 0.83 mmol/L High 0.45-0.60 [facility] Comment on above: Order Comment: Speci men Type: ARTERIAL BLOOD SPECIMENOrdering Facility: [facility] Address: [address] [place] [address] Performed By: #### A LLMG ####[facility] LABCLIA [id number] [place] [id number] [place] Methemoglobin (Bld) [Mass fraction] 0.9 % Normal 0.0-1.5 [facility] Comment on above: Order Comment: Speci men Type: ARTERIAL BLOOD SPECIMENOrdering Facility: [facility] Address: [address] [place] [address] Performed By: #### A LLMG ####[facility] LABIA [id number] [place] [address] [place] Oxygen (Bld) [Partial pressure] 307 mm Hg High 85-95 [facility] Comment on above: Order Comment: Speci men Type: ARTERIAL BLOOD SPECIMENOrdering Facility: [facility] Address: [address] [place] [address] Performed By: #### A LLMG ####[facility] LABIA [id number] [place] [address] [place] Oxygen adjusted to patient's actual temperature (Bld) [Partial pressure] 307 mmHg High 85-95 [facility] Comment on above: Order Comment: Speci men Type: ARTERIAL BLOOD SPECIMENOrdering Facility: [facility] Address: [address] [place] [address] Performed By: #### A LLMG ####[facility] LABIA [id number] [place] [address] [place] Oxyhemoglobin (BldA) [Mass fraction] 97 % Normal 95-98 [facility] Comment on above: Order Comment: Speci men Type: ARTERIAL BLOOD SPECIMENOrdering Facility: [facility] Address: [address] [place], [place] [address] Performed By: #### A LLMG ####[facility] LABIA [id number] [place] [id number] [place] pH (Bld) 7.32 [pH] Low 7.35-7.45 [facility] Comment on above: Order Comment: Speci men Type: ARTERIAL BLOOD SPECIMENOrdering Facility: [facility] Address: [address] [place] [address] Performed By: #### A LLMG ####[facility] LABCLIA [id number] [place] [address] [place] pH adjusted to patient's actual temperature (Bld) 7.32 Low 7.35-7.45 [facility] Comment on above: Order Comment: Speci men Type: ARTERIAL BLOOD SPECIMENOrdering Facility: [facility] Address: [address] [place] [address] Performed By: #### A LLMG ####[facility] LABIA [id number] [place] [address] [place] Potassium [Moles/Vol] 4.4 mmol/L Normal 3.5-5.[address] [facility] Comment on above: Order Comment: Speci men Type: ARTERIAL BLOOD SPECIMENOrdering Facility: [facility] Address: [address] [place] [address] Performed By: #### A LLMG ####[facility] LABIA [id number] [place] [address] [place] Sodium [Moles/Vol] 138 mmol/L Normal 136-144 [facility] Comment on above: Order Comment: Speci men Type: ARTERIAL BLOOD SPECIMENOrdering Facility: [facility] Address: [address] [place] [address] Performed By: #### A LLMG ####[facility] LABIA [id number] [place] [address] [place] CBC panel Auto (Bld)on 10-26 Erythrocyte distribution width (RBC) [Ratio] 14.1 % Normal 11.5-15.0 [facility] Comment on above: Order Comment: Speci men Type: BLOOD SPECIMENOrdering Facility: [facility] Address: [address] [place] [address] Performed By: #### 5 8410-2 ####[facility] LABIA [id number] [place] [address] [place] Hematocrit (Bld) [Volume fraction] 32.2 % Low 36.0-46.0 [facility] Comment on above: Order Comment: Speci men Type: BLOOD SPECIMENOrdering Facility: [facility] Address: [address] [place] [address] Performed By: #### 5 8410-2 ####[facility] LABIA [id number] [place] [address] [place] Hemoglobin (Bld) [Mass/Vol] 10.4 g/dL Low 11.5-15.5 [facility] Comment on above: Order Comment: Speci men Type: BLOOD SPECIMENOrdering Facility: [facility] Address: [address] [place] [address] Performed By: #### 5 8410-2 ####[facility] LABIA [id number] [place] [address] [place] MCH (RBC) [Entitic mass] 32.9 pg Normal 26.0-34.0 [facility] Comment on above: Order Comment: Speci men Type: BLOOD SPECIMENOrdering Facility: [facility] Address: [address] [place] [address] Performed By: #### 5 8410-2 ####[facility] LABIA [id number] [place] [address] [place] MCHC (RBC) [Mass/Vol] 32.3 g/dL Normal 30.5-36.[address] [facility] Comment on above: Order Comment: Speci men Type: BLOOD SPECIMENOrdering Facility: [facility] Address: [address] [place] [address] Performed By: #### 5 8410-2 ####[facility] [id number] [place] [address] [place] MCV (RBC) [Entitic vol] 101.9 fL High 80.0-100.0 [facility] Comment on above: Order Comment: Speci men Type: BLOOD SPECIMENOrdering Facility: [facility] Address: [address] [place] [address] Performed By: #### 5 8410-2 ####[facility] LABIA [id number] [place] [address] [place] Nucleated RBC (Bld) [#/Vol] 10*3/uL Normal <0.01 [facility] Comment on above: Order Comment: Speci men Type: BLOOD SPECIMENOrdering Facility: [facility] Address: [address] [place] [address] Performed By: #### 5 8410-2 ####[facility] LABIA [id number] [place] [address] [place] Platelet mean volume (Bld) [Entitic vol] 9.1 fL Normal 9.0-12.7 [facility] Comment on above: Order Comment: Speci men Type: BLOOD SPECIMENOrdering Facility: [facility] Address: [address] [place] [address] Performed By: #### 5 8410-2 ####[facility] LABIA [id number] [place] [address] [place] Platelets (Bld) [#/Vol] 175 10*3/uL Normal 150-400 [facility] Comment on above: Order Comment: Speci men Type: BLOOD SPECIMENOrdering Facility: [facility] Address: [address] [place] [address] Performed By: #### 5 8410-2 ####[facility] LABCLIA [id number] [place] [address] [place] RBC (Bld) [#/Vol] 3.16 10*6/uL Low 3.90-5.20 [facility] Comment on above: Order Comment: Speci men Type: BLOOD SPECIMENOrdering Facility: [facility] Address: [address] [place] [address] Performed By: #### 5 8410-2 ####[facility] LABCLIA [id number] [place] [address] [place] WBC (Bld) [#/Vol] 19.00 10*3/uL High 3.70-11.00 [facility] Comment on above: Order Comment: Speci men Type: BLOOD SPECIMENOrdering Facility: [facility] Address: [address] [place] [address] Performed By: #### 5 8410-2 ####[facility] LABCLIA [id number] [place] [address] [place] Erythrocyte distribution width (RBC) [Ratio] 14.0 % Normal 11.5-15.0 [facility] Comment on above: Order Comment: Speci men Type: BLOOD SPECIMENOrdering Facility: [facility] Address: [address] [place] [address] Performed By: #### 5 8410-2 ####[facility] LABCLIA [id number] [place] [address] [place] Hematocrit (Bld) [Volume fraction] 42.0 % Normal 36.0-46.0 [facility] Comment on above: Order Comment: Speci men Type: BLOOD SPECIMENOrdering Facility: [facility] Address: [address] [place] [address] Performed By: #### 5 8410-2 ####[facility] LABCLIA [id number] [place] [address] [place] MCH (RBC) [Entitic mass] 31.9 pg Normal 26.0-34.0 [facility] Comment on above: Order Comment: Speci men Type: BLOOD SPECIMENOrdering Facility: [facility] Address: [address] [place] [address] Performed By: #### 5 8410-2 ####[facility] LABCLIA [id number] [place] [address] [place] MCHC (RBC) [Mass/Vol] 31.7 g/dL Normal 30.5-36.[address] [facility] Comment on above: Order Comment: Speci men Type: BLOOD SPECIMENOrdering Facility: [facility] Address: [address] [place] [address] Performed By: #### 5 8410-2 ####[facility] LABIA [id number] [place] [address] [place] MCV (RBC) [Entitic vol] 100.7 fL High 80.0-100.0 [facility] Comment on above: Order Comment: Speci men Type: BLOOD SPECIMENOrdering Facility: [facility] Address: [address] [place] [address] Performed By: #### 5 8410-2 ####[facility] [id number] [place] [address] [place] Nucleated RBC (Bld) [#/Vol] 10*3/uL Normal <0.01 [facility] Comment on above: Order Comment: Speci men Type: BLOOD SPECIMENOrdering Facility: [facility] Address: [address] [place] [address] Performed By: #### 5 8410-2 ####[facility] LABIA [id number] [place] [address] [place] Platelet mean volume (Bld) [Entitic vol] 8.8 fL Low 9.0-12.7 [facility] Comment on above: Order Comment: Speci men Type: BLOOD SPECIMENOrdering Facility: [facility] Address: [address] [place] [address] Performed By: #### 5 8410-2 ####[facility] LABIA [id number] [place] [address] [place] Platelets (Bld) [#/Vol] 173 10*3/uL Normal 150-400 [facility] Comment on above: Order Comment: Speci men Type: BLOOD SPECIMENOrdering Facility: [facility] Address: [address] [place] [address] Performed By: #### 5 8410-2 ####[facility] LABCLIA [id number] [address] [address] [place] RBC (Bld) [#/Vol] 4.17 10*6/uL Normal 3.90-5.20 [facility] Comment on above: Order Comment: Speci men Type: BLOOD SPECIMENOrdering Facility: [facility] Address: [address] [place] [address] Performed By: #### 5 8410-2 ####[facility] LABCLIA [id number] [place] [address] [place] WBC (Bld) [#/Vol] 14.24 10*3/uL High 3.70-11.00 [facility] Comment on above: Order Comment: Speci men Type: BLOOD SPECIMENOrdering Facility: [facility] Address: [address] [place] [address] Performed By: #### 5 8410-2 ####[facility] LABCLIA [id number] [place] [address] [place] CNNURSEon 10-27-2023 CNNURSE Normal [facility] CONSULTon 10-27-2023 CONSULT Normal [facility] Comprehensive metabolic 2000 panelon 10-27-2023 Albumin [Mass/Vol] 3.4 g/dL Low 3.9-4.9 [facility] Comment on above: Order Comment: Speci men Type: BLOOD SPECIMENOrdering Facility: [facility] Address: [address] [place] [address] Performed By: #### 2 4323-8 ####[facility] LABCLIA [id number] [place] [address] [place] ALP [Catalytic activity/Vol] 63 U/L Normal 34-123 [facility] Comment on above: Order Comment: Speci men Type: BLOOD SPECIMENOrdering Facility: [facility] Address: [facility] [place] [address] Performed By: #### 2 4323-8 ####[facility] LABCLIA [id number] [place] [address] [place] ALT [Catalytic activity/Vol] 14 U/L Normal 7-38 [facility] Comment on above: Order Comment: Speci men Type: BLOOD SPECIMENOrdering Facility: [facility] Address: [address] [place] [address] Performed By: #### 2 4323-8 ####[facility] LABCLIA [id number] [place] [address] [place] Anion gap [Moles/Vol] 12 mmol/L Normal 8-[address] [facility] Comment on above: Order Comment: Speci men Type: BLOOD SPECIMENOrdering Facility: [facility] Address: [address] [place] [address] Performed By: #### 2 4323-8 ####[facility] LABCLIA [id number] [place] [address] [place] AST [Catalytic activity/Vol] 37 U/L High 13-35 [facility] Comment on above: Order Comment: Speci men Type: BLOOD SPECIMENOrdering Facility: [facility] Address: [address] [place] [address] Performed By: #### 2 4323-8 ####[facility] LABCLIA [id number] [place] [address] [place] Bilirubin [Mass/Vol] 0.9 mg/dL Normal 0.2-1.3 [facility] Comment on above: Order Comment: Speci men Type: BLOOD SPECIMENOrdering Facility: [facility] Address: [address] [place] [address] Performed By: #### 2 4323-8 ####[facility] LABCLIA [id number] [place] [address] [place] Calcium [Mass/Vol] 8.7 mg/dL Normal 8.5-10.2 [facility] Comment on above: Order Comment: Speci men Type: BLOOD SPECIMENOrdering Facility: [facility] Address: [address] [place] [address] Performed By: #### 2 4323-8 ####[facility] LABCLIA [id number] [place] [address] [place] Chloride [Moles/Vol] 107 mmol/L Normal 98-107 [facility] Comment on above: Order Comment: Speci men Type: BLOOD SPECIMENOrdering Facility: [facility] Address: [address] [place] [address] Performed By: #### 2 4323-8 ####[facility] LABCLIA [id number] [place] [address] [place] CO2 [Moles/Vol] 19 mmol/L Low 22-30 [facility] Comment on above: Order Comment: Speci men Type: BLOOD SPECIMENOrdering Facility: [facility] Address: [address] [place] [address] Performed By: #### 2 4323-8 ####[facility] LABCLIA [id number] [place] [address] [place] Creatinine [Mass/Vol] 1.21 mg/dL High 0.58-0.[address] [facility] Comment on above: Order Comment: Speci men Type: BLOOD SPECIMENOrdering Facility: [facility] Address: [address] [place] [address] Performed By: #### 2 4323-8 ####[facility] LABCLIA [id number] [place] [address] [place] Creatinine and Glomerular filtration rate.predicted panel (S/P/Bld) 50 mL/min/1.73m??? Low >=60 [facility] Comment on above: Order Comment: Ernie billy Type: BLOOD SPECIMENOrdering Facility: [facility] Address: [address] [place] [address] Result Comment: Malorie mated Glomerular Filtration Rate (eGFR) is calculated using the 2020 CKD-EPI creatinine equation. This equation utilizes serum creatinine, sex, and age as parameters. The creatinine assay has traceable calibration to isotope dilution-mass spectrometry. Refer to KDIGO guidelines for clinical interpretation. In patients with unstable renal function, e.g. those with acute kidney injury, the eGFR may not accurately reflect actual GFR. Performed By: #### 2 4323-8 ####[facility] [id number] [place] [address] [place] Glucose [Mass/Vol] 97 mg/dL Normal 74-99 [facility] Comment on above: Order Comment: Ernie billy Type: BLOOD SPECIMENOrdering Facility: [facility] Address: [address] [place] [address] Result Comment: The [place] [employer] (ADA) provides guidance for cutoff values for fasting glucose and random glucose. The ADA defines fasting as no caloric intake for at least 8 hours. Fasting plasma glucose results between 100 to 125 mg/dL indicate increased risk for diabetes (prediabetes).Fasting plasma glucose results greater than or equal to 126 mg/dL meet the criteria for diagnosis of diabetes. In the absence of unequivocal hyperglycemia, results should be confirmed by repeat testing. In a patient with classic symptoms of hyperglycemia or hyperglycemic crisis, random plasma glucose results greater than or equal to 200 mg/dL meet the criteria for diagnosis of diabetes.Reference: Standards of Medical Care in Diabetes 2016, [place] [employer]. Diabetes Care. 2016.39(Suppl 1). Performed By: #### 2 4323-8 ####[facility] [id number] [place] [address] [place] Potassium [Moles/Vol] 4.2 mmol/L Normal 3.7-5.[address] [facility] Comment on above: Order Comment: Ernie billy Type: BLOOD SPECIMENOrdering Facility: [facility] Address: [address] [place] [address] Performed By: #### 2 4323-8 ####[facility] [id number] [address] [address] [place] Protein [Mass/Vol] 6.4 g/dL Normal 6.3-8.0 [facility] Comment on above: Order Comment: Speci men Type: BLOOD SPECIMENOrdering Facility: [facility] Address: [address] [place] [address] Performed By: #### 2 4323-8 ####[facility] [id number] [place] [address] [place] Sodium [Moles/Vol] 138 mmol/L Normal 136-144 [facility] Comment on above: Order Comment: Speci men Type: BLOOD SPECIMENOrdering Facility: [facility] Address: [address] [place] [address] Performed By: #### 2 4323-8 ####[facility] [id number] [place] [address] [place] Urea nitrogen [Mass/Vol] 19 mg/dL Normal 7-21 [facility] Comment on above: Order Comment: Speci men Type: BLOOD SPECIMENOrdering Facility: [facility] Address: [address] [place] [address] Performed By: #### 2 4323-8 ####[facility] [id number] [place] [id number] [place] ECG COMPLETEon 10-27-2023 ECG COMPLETE Normal [facility] ECHO LIMITEDon 10-27-2023 ECHO LIMITED Normal [facility] Fibrinogen PPP-mCncon 2023 Fibrinogen Coag (PPP) [Mass/Vol] 429 mg/dL High 200-400 [facility] Comment on above: Order Comment: Speci men Type: BLOOD SPECIMENOrdering Facility: [facility] Address: [address] [place] [address] Performed By: #### 3 255-7, 38963-6, 63996-1 ####[facility] [id number] [place] [address] [place] Fibrinogen Coag (PPP) [Mass/Vol] 432 mg/dL High 200-400 [facility] Comment on above: Order Comment: Speci men Type: BLOOD SPECIMENOrdering Facility: [facility] Address: [address] [place] [address] Performed By: #### 3 255-7, 95550-7, 85251-3 ####[facility] LABIA [id number] [address] [place] Gas + CO Pnl BldVon 10-27-19 Hemoglobin (Bld) [Mass/Vol] 13.3 g/dL Normal 11.5-15.5 [facility] Comment on above: Order Comment: Speci men Type: VENOUS BLOOD SPECIMENOrdering Facility: [facility] Address: [address] [place] [address] Performed By: #### 2 4344-4 ####[facility] LABIA [id number] [address] STATES OF [facility] Order Comment: Speci men Type: BLOOD SPECIMENOrdering Facility: [facility] Address: [address] [place] [address] Performed By: #### 5 8410-2 ####[facility] LABIA [id number] [address] [place] Gas and Carbon monoxide pane l (BldV)on 10-27-2023 BASE DEFICIT, VENOUS -3 mmol/L Low -2-0 [facility] Comment on above: Order Comment: Speci men Type: VENOUS BLOOD SPECIMENOrdering Facility: [facility] Address: [address] [place] [address] Performed By: #### 2 4344-4 ####[facility] LABIA [id number] [place] [address] [place] Calcium.ionized (Bld) [Mass/Vol] 1.15 mmol/L Normal 1.08-1.30 [facility] Comment on above: Order Comment: Speci men Type: VENOUS BLOOD SPECIMENOrdering Facility: [facility] Address: [address] [place] [address] Performed By: #### 2 4344-4 ####[facility] LABIA [id number] [place] [address] [place] Calcium.ionized adjusted to pH 7.4 (BldA) [Moles/Vol] 1.09 mmol/L Normal 1.08-1.30 [facility] Comment on above: Order Comment: Speci men Type: VENOUS BLOOD SPECIMENOrdering Facility: [facility] Address: [address] [place] [address] Performed By: #### 2 4344-4 ####[facility] [id number] [place] [address] [place] Carboxyhemoglobin (BldV) [Mass fraction] 1.7 % Normal 0.0-2.0 [facility] Comment on above: Order Comment: Speci men Type: VENOUS BLOOD SPECIMENOrdering Facility: [facility] Address: [address] [place] [address] Result Comment: Carb oxyhemoglobin Reference Range for Smokers: 2.0-8.0% Performed By: #### 2 4344-4 ####[facility] LABIA [id number] [place] [address] [place] CO2 (BldV) [Partial pressure] 49 mm[Hg] Normal 42-55 [facility] Comment on above: Order Comment: Speci men Type: VENOUS BLOOD SPECIMENOrdering Facility: [facility] Address: [address] [place] [address] Performed By: #### 2 4344-4 ####[facility] LABIA [id number] [place] [address] [place] HCO3 (Bld) [Moles/Vol] 23 mmol/L Low 24-28 [facility] Comment on above: Order Comment: Speci men Type: VENOUS BLOOD SPECIMENOrdering Facility: [facility] Address: [address] [place] [address] Performed By: #### 2 4344-4 ####[facility] LABIA [id number] [place] [address] [place] Hematocrit (Bld) [Volume fraction] 33.2 % Low 36.0-46.0 [facility] Comment on above: Order Comment: Speci men Type: VENOUS BLOOD SPECIMENOrdering Facility: [facility] Address: [address] [place] [address] Performed By: #### 2 4344-4 ####[facility] LABCL[facility] [id number] [place] [address] [place] Hemoglobin (Bld) [Mass/Vol] 10.8 g/dL Low 11.5-15.5 [facility] Comment on above: Order Comment: Speci men Type: VENOUS BLOOD SPECIMENOrdering Facility: [facility] Address: [address] [place] [address] Performed By: #### 2 4344-4 ####[facility] LABIA [id number] [place] [address] [place] Lactate [Moles/Vol] 2.0 mmol/L Normal 0.5-2.2 [facility] Comment on above: Order Comment: Speci men Type: VENOUS BLOOD SPECIMENOrdering Facility: [facility] Address: [address] [place] [address] Performed By: #### 2 4344-4 ####[facility] LABCL[facility] [id number] [place] [address] [place] Methemoglobin (Bld) [Mass fraction] 1.5 % Normal 0.0-1.5 [facility] Comment on above: Order Comment: Speci men Type: VENOUS BLOOD SPECIMENOrdering Facility: [facility] Address: [address] [place] [address] Performed By: #### 2 4344-4 ####[facility] [id number] [address] [address] [place] Oxygen (BldV) [Partial pressure] 36 mm[Hg] Normal 35-45 [facility] Comment on above: Order Comment: Speci men Type: VENOUS BLOOD SPECIMENOrdering Facility: [facility] Address: [address] [place], [place] [address] Performed By: #### 2 4344-4 ####[facility] LABCL[facility] [id number] [place] [address] [place] Oxygen saturation in Venous blood 60 % Normal 60-85 [facility] Comment on above: Order Comment: Speci men Type: VENOUS BLOOD SPECIMENOrdering Facility: [facility] Address: [address] [place], [place] [address] Performed By: #### 2 4344-4 ####[facility] [id number] [place] [address] [place] Oxyhemoglobin (BldV) [Mass fraction] 58 % Low 60-85 [facility] Comment on above: Order Comment: Speci men Type: VENOUS BLOOD SPECIMENOrdering Facility: [facility] Address: [address] [place] [address] Performed By: #### 2 4344-4 ####[facility] LABCL[facility] [id number] [address] [address] [place] pH (BldV) 7.30 [pH] Low 7.32-7.42 [facility] Comment on above: Order Comment: Speci men Type: VENOUS BLOOD SPECIMENOrdering Facility: [facility] Address: [address] [place], [place] [address] Performed By: #### 2 4344-4 ####[facility] LABCL[facility] [id number] [place] [address] [place] Potassium [Moles/Vol] 4.2 mmol/L Normal 3.5-5.[address] [facility] Comment on above: Order Comment: Speci men Type: VENOUS BLOOD SPECIMENOrdering Facility: [facility] Address: [address] [place] [address] Performed By: #### 2 4344-4 ####[facility]CL[facility] [id number] [place] [address] [place] Sodium [Moles/Vol] 137 mmol/L Normal 136-144 [facility] Comment on above: Order Comment: Speci men Type: VENOUS BLOOD SPECIMENOrdering Facility: [facility] Address: [address] [place] [address] Performed By: #### 2 4344-4 ####[facility] LABIA [id number] [place] [address] [place] BASE DEFICIT, VENOUS -2 mmol/L Normal -2-0 [facility] Comment on above: Order Comment: Speci men Type: VENOUS BLOOD SPECIMENOrdering Facility: [facility] Address: [address] [place] [address] Performed By: #### 2 4344-4 ####[facility] LABIA [id number] [place] [address] [place] Calcium.ionized (Bld) [Mass/Vol] 1.17 mmol/L Normal 1.08-1.30 [facility] Comment on above: Order Comment: Speci men Type: VENOUS BLOOD SPECIMENOrdering Facility: [facility] Address: [address] [place] [address] Performed By: #### 2 4344-4 ####[facility]CL[facility] [id number] [place] [address] [place] Calcium.ionized adjusted to pH 7.4 (BldA) [Moles/Vol] 1.10 mmol/L Normal 1.08-1.30 [facility] Comment on above: Order Comment: Speci men Type: VENOUS BLOOD SPECIMENOrdering Facility: [facility] Address: [address] [place] [address] Performed By: #### 2 4344-4 ####[facility] [id number] [place] [address] [place] Carboxyhemoglobin (BldV) [Mass fraction] 1.9 % Normal 0.0-2.0 [facility] Comment on above: Order Comment: Speci men Type: VENOUS BLOOD SPECIMENOrdering Facility: [facility] Address: [address] [place] [address] Result Comment: Carb oxyhemoglobin Reference Range for Smokers: 2.0-8.0% Performed By: #### 2 4344-4 ####[facility] [id number] [place] [address] [place] CO2 (BldV) [Partial pressure] 54 mm[Hg] Normal 42-55 [facility] Comment on above: Order Comment: Speci men Type: VENOUS BLOOD SPECIMENOrdering Facility: [facility] Address: [address] [place] [address] Performed By: #### 2 4344-4 ####[facility] LABCL[facility] [id number] [place] [address] [place] Glucose [Mass/Vol] 192 mg/dL High 60-105 [facility] Comment on above: Order Comment: Speci men Type: VENOUS BLOOD SPECIMENOrdering Facility: [facility] Address: [address] [place] [address] Performed By: #### 2 4344-4 ####[facility] [id number] [place] [address] [place] HCO3 (Bld) [Moles/Vol] 24 mmol/L Normal 24-28 [facility] Comment on above: Order Comment: Speci men Type: VENOUS BLOOD SPECIMENOrdering Facility: [facility] Address: [address] [place] [address] Performed By: #### 2 4344-4 ####[facility] [id number] [place] [address] [place] Hematocrit (Bld) [Volume fraction] 32.4 % Low 36.0-46.0 [facility] Comment on above: Order Comment: Speci men Type: VENOUS BLOOD SPECIMENOrdering Facility: [facility] Address: [address] [place] [address] Performed By: #### 2 4344-4 ####[facility] [id number] [place] [address] [place] Hemoglobin (Bld) [Mass/Vol] 10.5 g/dL Low 11.5-15.5 [facility] Comment on above: Order Comment: Speci men Type: VENOUS BLOOD SPECIMENOrdering Facility: [facility] Address: [address] [place] [address] Performed By: #### 2 4344-4 ####[facility] [id number] [place] [address] [place] Lactate [Moles/Vol] 2.0 mmol/L Normal 0.5-2.2 [facility] Comment on above: Order Comment: Speci men Type: VENOUS BLOOD SPECIMENOrdering Facility: [facility] Address: [address] [place] [address] Performed By: #### 2 4344-4 ####[facility] [id number] [place] [address] [place] Methemoglobin (Bld) [Mass fraction] 1.6 % High 0.0-1.5 [facility] Comment on above: Order Comment: Speci men Type: VENOUS BLOOD SPECIMENOrdering Facility: [facility] Address: [address] [place] [address] Performed By: #### 2 4344-4 ####[facility] LABCLIA [id number] [address] [address] [place] Oxygen (BldV) [Partial pressure] 36 mm[Hg] Normal 35-45 [facility] Comment on above: Order Comment: Speci men Type: VENOUS BLOOD SPECIMENOrdering Facility: [facility] Address: [address] [place] [address] Performed By: #### 2 4344-4 ####[facility] LABCLIA [id number] [place] [address] [place] Oxygen saturation in Venous blood 57 % Low 60-85 [facility] Comment on above: Order Comment: Speci men Type: VENOUS BLOOD SPECIMENOrdering Facility: [facility] Address: [address] [place] [address] Performed By: #### 2 4344-4 ####[facility] LABIA [id number] [place] [address] [place] Oxyhemoglobin (BldV) [Mass fraction] 55 % Low 60-85 [facility] Comment on above: Order Comment: Speci men Type: VENOUS BLOOD SPECIMENOrdering Facility: [facility] Address: [address] [place] [address] Performed By: #### 2 4344-4 ####[facility] LABIA [id number] [place] [address] [place] pH (BldV) 7.28 [pH] Low 7.32-7.42 [facility] Comment on above: Order Comment: Speci men Type: VENOUS BLOOD SPECIMENOrdering Facility: [facility] Address: [address] [place], [place] [address] Performed By: #### 2 4344-4 ####[facility] LABIA [id number] [place] [id number] [place] Potassium [Moles/Vol] 3.8 mmol/L Normal 3.5-5.[address] [facility] Comment on above: Order Comment: Speci men Type: VENOUS BLOOD SPECIMENOrdering Facility: [facility] Address: [address] [place] [address] Performed By: #### 2 4344-4 ####[facility] [id number] [place] [address] [place] Sodium [Moles/Vol] 137 mmol/L Normal 136-144 [facility] Comment on above: Order Comment: Speci men Type: VENOUS BLOOD SPECIMENOrdering Facility: [facility] Address: [address] [place] [address] Performed By: #### 2 4344-4 ####[facility] LABCLIA [id number] [place] [address] [place] BASE DEFICIT, VENOUS -5 mmol/L Low -2-0 [facility] Comment on above: Order Comment: Speci men Type: VENOUS BLOOD SPECIMENOrdering Facility: [facility] Address: [address] [place] [address] Performed By: #### 2 4344-4 ####[facility] LABIA [id number] [place] [address] [place] Calcium.ionized (Bld) [Mass/Vol] 1.15 mmol/L Normal 1.08-1.30 [facility] Comment on above: Order Comment: Speci men Type: VENOUS BLOOD SPECIMENOrdering Facility: [facility] Address: [address] [place] [address] Performed By: #### 2 4344-4 ####[facility] LABIA [id number] [place] [address] [place] Calcium.ionized adjusted to pH 7.4 (BldA) [Moles/Vol] 1.08 mmol/L Normal 1.08-1.30 [facility] Comment on above: Order Comment: Speci men Type: VENOUS BLOOD SPECIMENOrdering Facility: [facility] Address: [address] [place] [address] Performed By: #### 2 4344-4 ####[facility] [id number] [address] [address] [place] Carboxyhemoglobin (BldV) [Mass fraction] 2.2 % High 0.0-2.0 [facility] Comment on above: Order Comment: Speci men Type: VENOUS BLOOD SPECIMENOrdering Facility: [facility] Address: [address] [place] [address] Result Comment: Carb oxyhemoglobin Reference Range for Smokers: 2.0-8.0% Performed By: #### 2 4344-4 ####[facility] [id number] [place] [address] [place] CO2 (BldV) [Partial pressure] 49 mm[Hg] Normal 42-55 [facility] Comment on above: Order Comment: Speci men Type: VENOUS BLOOD SPECIMENOrdering Facility: [facility] Address: [address] [place] [address] Performed By: #### 2 4344-4 ####[facility]CL[facility] [id number] [place] [address] [place] CO2 adjusted to patient's actual temperature (BldV) [Partial pressure] 49 mmHg Normal 42-55 [facility] Comment on above: Order Comment: Speci men Type: VENOUS BLOOD SPECIMENOrdering Facility: [facility] Address: [address] [place] [address] Performed By: #### 2 4344-4 ####[facility] LABCLIA [id number] [place] [address] [place] Glucose [Mass/Vol] 131 mg/dL High 60-105 [facility] Comment on above: Order Comment: Speci men Type: VENOUS BLOOD SPECIMENOrdering Facility: [facility] Address: [address] [place] [address] Performed By: #### 2 4344-4 ####[facility]CL[facility] [id number] [place] [address] [place] HCO3 (Bld) [Moles/Vol] 22 mmol/L Low 24-28 [facility] Comment on above: Order Comment: Speci men Type: VENOUS BLOOD SPECIMENOrdering Facility: [facility] Address: [address] [place] [address] Performed By: #### 2 4344-4 ####[facility] LABIA [id number] [place] [address] [place] Hematocrit (Bld) [Volume fraction] 34.1 % Low 36.0-46.0 [facility] Comment on above: Order Comment: Speci men Type: VENOUS BLOOD SPECIMENOrdering Facility: [facility] Address: [address] [place] [address] Performed By: #### 2 4344-4 ####[facility] LABIA [id number] [place] [address] [place] Hemoglobin (Bld) [Mass/Vol] 11.1 g/dL Low 11.5-15.5 [facility] Comment on above: Order Comment: Speci men Type: VENOUS BLOOD SPECIMENOrdering Facility: [facility] Address: [address] [place] [address] Performed By: #### 2 4344-4 ####[facility] LABIA [id number] [place] [address] [place] Lactate [Moles/Vol] 0.9 mmol/L Normal 0.5-2.2 [facility] Comment on above: Order Comment: Speci men Type: VENOUS BLOOD SPECIMENOrdering Facility: [facility] Address: [address] [place] [address] Performed By: #### 2 4344-4 ####[facility]CL[facility] [id number] [place] [address] [place] Methemoglobin (Bld) [Mass fraction] 1.3 % Normal 0.0-1.5 [facility] Comment on above: Order Comment: Speci men Type: VENOUS BLOOD SPECIMENOrdering Facility: [facility] Address: [address] [place] [address] Performed By: #### 2 4344-4 ####[facility] [id number] [address] [address] [place] Oxygen (BldV) [Partial pressure] 68 mm[Hg] High 35-45 [facility] Comment on above: Order Comment: Speci men Type: VENOUS BLOOD SPECIMENOrdering Facility: [facility] Address: [address] [place], [place] [address] Performed By: #### 2 4344-4 ####[facility] [id number] [address] [address] [place] Oxygen adjusted to patient's actual temperature (BldV) [Partial pressure] 68 mmHg High 35-45 [facility] Comment on above: Order Comment: Speci men Type: VENOUS BLOOD SPECIMENOrdering Facility: [facility] Address: [address] [place] [address] Performed By: #### 2 4344-4 ####[facility] [id number] [address] [address] [place] Oxygen saturation in Venous blood 91 % High 60-85 [facility] Comment on above: Order Comment: Speci men Type: VENOUS BLOOD SPECIMENOrdering Facility: [facility] Address: [address] [place] [address] Performed By: #### 2 4344-4 ####[facility] [id number] [address] [address] [place] Oxyhemoglobin (BldV) [Mass fraction] 88 % High 60-85 [facility] Comment on above: Order Comment: Speci men Type: VENOUS BLOOD SPECIMENOrdering Facility: [facility] Address: [address] [place] [address] Performed By: #### 2 4344-4 ####[facility] [id number] [place] [address] [place] pH (BldV) 7.27 [pH] Low 7.32-7.42 [facility] Comment on above: Order Comment: Speci men Type: VENOUS BLOOD SPECIMENOrdering Facility: [facility] Address: [address] [place] [address] Performed By: #### 2 4344-4 ####[facility] [id number] [place] [address] [place] pH adjusted to patient's actual temperature (BldV) 7.27 Low 7.32-7.42 [facility] Comment on above: Order Comment: Speci men Type: VENOUS BLOOD SPECIMENOrdering Facility: [facility] Address: [address] [place] [address] Performed By: #### 2 4344-4 ####[facility] LABIA [id number] [place] [address] [place] Potassium [Moles/Vol] 3.9 mmol/L Normal 3.5-5.[address] [facility] Comment on above: Order Comment: Speci men Type: VENOUS BLOOD SPECIMENOrdering Facility: [facility] Address: [address] [place] [address] Performed By: #### 2 4344-4 ####[facility] [id number] [place] [address] [place] BASE DEFICIT, VENOUS -5 mmol/L Low -2-0 [facility] Comment on above: Order Comment: Speci men Type: VENOUS BLOOD SPECIMENOrdering Facility: [facility] Address: [address] [place] [address] Performed By: #### 2 4344-4 ####[facility] LABCLIA [id number] [place] [address] [place] Body temperature 98.6 [degF] Normal [facility] Comment on above: Order Comment: Speci men Type: VENOUS BLOOD SPECIMENOrdering Facility: [facility] Address: [address] [place] [address] Performed By: #### 2 4344-4 ####[facility] LABCLIA [id number] [place] [address] [place] Calcium.ionized (Bld) [Mass/Vol] 1.23 mmol/L Normal 1.08-1.30 [facility] Comment on above: Order Comment: Speci men Type: VENOUS BLOOD SPECIMENOrdering Facility: [facility] Address: [address] [place] [address] Performed By: #### 2 4344-4 ####[facility] LABIA [id number] [place] [address] [place] Calcium.ionized adjusted to pH 7.4 (BldA) [Moles/Vol] 1.14 mmol/L Normal 1.08-1.30 [facility] Comment on above: Order Comment: Speci men Type: VENOUS BLOOD SPECIMENOrdering Facility: [facility] Address: [address] [place] [address] Performed By: #### 2 4344-4 ####[facility] LABIA [id number] [place] [address] [place] Carboxyhemoglobin (BldV) [Mass fraction] 2.2 % High 0.0-2.0 [facility] Comment on above: Order Comment: Speci men Type: VENOUS BLOOD SPECIMENOrdering Facility: [facility] Address: [address] [place] [address] Result Comment: Carb oxyhemoglobin Reference Range for Smokers: 2.0-8.0% Performed By: #### 2 4344-4 ####[facility] LABIA [id number] [place] [address] [place] CO2 (BldV) [Partial pressure] 53 mm[Hg] Normal 42-55 [facility] Comment on above: Order Comment: Speci men Type: VENOUS BLOOD SPECIMENOrdering Facility: [facility] Address: [address] [id number] Performed By: #### 2 4344-4 ####[facility] LABCLIA [id number] [place] [id number] [place] Glucose [Mass/Vol] 104 mg/dL Normal 60-105 [facility] Comment on above: Order Comment: Speci men Type: VENOUS BLOOD SPECIMENOrdering Facility: [facility] Address: [address] [place] [address] Performed By: #### 2 4344-4 ####[facility] LABCLIA [id number] [place] [address] [place] HCO3 (Bld) [Moles/Vol] 22 mmol/L Low 24-28 [facility] Comment on above: Order Comment: Speci men Type: VENOUS BLOOD SPECIMENOrdering Facility: [facility] Address: [address] [place] [address] Performed By: #### 2 4344-4 ####[facility] LABCLIA [id number] [place] [address] [place] Hematocrit (Bld) [Volume fraction] 40.8 % Normal 36.0-46.0 [facility] Comment on above: Order Comment: Speci men Type: VENOUS BLOOD SPECIMENOrdering Facility: [facility] Address: [address] [place], [place] [address] Performed By: #### 2 4344-4 ####[facility] LABCLIA [id number] [place] [address] [place] Lactate [Moles/Vol] 0.9 mmol/L Normal 0.5-2.2 [facility] Comment on above: Order Comment: Speci men Type: VENOUS BLOOD SPECIMENOrdering Facility: [facility] Address: [address] [place], [place] [address] Performed By: #### 2 4344-4 ####[facility] LABCLIA [id number] [address] [address] [place] Methemoglobin (Bld) [Mass fraction] 1.4 % Normal 0.0-1.5 [facility] Comment on above: Order Comment: Speci men Type: VENOUS BLOOD SPECIMENOrdering Facility: [facility] Address: [address] [place], [place] [address] Performed By: #### 2 4344-4 ####[facility] LABCLIA [id number] [place] [address] [place] O2 THERAPY NC = Nasal Cannula Normal [facility] Comment on above: Order Comment: Speci men Type: VENOUS BLOOD SPECIMENOrdering Facility: [facility] Address: [address] [place], [place] [address] Performed By: #### 2 4344-4 ####[facility] LABCLIA [id number] [address] [address] [place] Oxygen (BldV) [Partial pressure] 58 mm[Hg] High 35-45 [facility] Comment on above: Order Comment: Speci men Type: VENOUS BLOOD SPECIMENOrdering Facility: [facility] Address: [address] [place], [place] [address] Performed By: #### 2 4344-4 ####[facility] LABCLIA [id number] [address] [address] [place] Oxygen saturation in Venous blood 85 % Normal 60-85 [facility] Comment on above: Order Comment: Speci men Type: VENOUS BLOOD SPECIMENOrdering Facility: [facility] Address: [address] [place] [address] Performed By: #### 2 4344-4 ####[facility] LABCLIA [id number] [address] [address] [place] Oxyhemoglobin (BldV) [Mass fraction] 82 % Normal 60-85 [facility] Comment on above: Order Comment: Speci men Type: VENOUS BLOOD SPECIMENOrdering Facility: [facility] Address: [address] [place] [address] Performed By: #### 2 4344-4 ####[facility] LABCLIA [id number] [place] [address] [place] pH (BldV) 7.25 [pH] Low 7.32-7.42 [facility] Comment on above: Order Comment: Speci men Type: VENOUS BLOOD SPECIMENOrdering Facility: [facility] Address: [address] [place] [address] Performed By: #### 2 4344-4 ####[facility] LABCLIA [id number] [place] [address] [place] Potassium [Moles/Vol] 4.0 mmol/L Normal 3.5-5.[address] [facility] Comment on above: Order Comment: Speci men Type: VENOUS BLOOD SPECIMENOrdering Facility: [facility] Address: [address] [place] [address] Performed By: #### 2 4344-4 ####[facility] LABCLIA [id number] [place] [address] [place] Sodium [Moles/Vol] 137 mmol/L Normal 136-144 [facility] Comment on above: Order Comment: Speci men Type: VENOUS BLOOD SPECIMENOrdering Facility: [facility] Address: [address] [place] [address] Performed By: #### 2 4344-4 ####[facility] LABCLIA [id number] [place] [id number] [place] HISTORY PHYSICALon HISTORY PHYSICAL Normal [facility] [place] [facility] INTRAOPERATIVE ECHO PREon INTRAOPERATIVE ECHO PRE Normal [facility] NURSING PROGon 10-27-2023 NURSING PROG Normal [facility] OPERATIVE NOon 10-27-2023 OPERATIVE NO Normal [facility] PT panel Coag (PPP)on 2023 INR Coag (PPP) [Relative time] 1.3 {INR} Normal 0.9-1.3 [facility] Comment on above: Order Comment: Ernie billy Type: BLOOD SPECIMENOrdering Facility: [facility] Address: [address] [place] [address] Result Comment: Ale min K Antagonist (VKA) Therapeutic Range: INR 2 to 3 (Target INR of 2.5)Note: For patients treated with VKA drugs, such as warfarin, the [employer] 2012 Guideline recommends a therapeutic INR range of 2 to 3 (target INR of 2.5). This recommendation includes high-risk patients with antiphospholipid syndrome with previous arterial or venous thromboembolism, current-generation mechanical or bioprosthetic aortic heart valve replacement.Note: Patients with mechanical aortic valve replacement and additional risk factors for thromboembolic events (atrial fibrillation, previous thromboembolism, LV dysfunction, hypercoagulable conditions) or an older generation mechanical AVR (i.e., ball in-Cage) or any mechanical MVR should have a INR therapeutic range of 2.5 to 3.5 (target INR of 3).Shukri PHILLIPS, et al. Chest 2012, 141:7S-47SNishkain RA, et al. [facility] 2017, 70: 252-289 Performed By: #### 3 255-7, 37775-7, 85033-9 ####[facility] [id number] [place] [address] [place] PT Coag (PPP) [Time] 13.1 s High 9.7-13.0 [facility] Comment on above: Order Comment: Ernie billy Type: BLOOD SPECIMENOrdering Facility: [facility] Address: [address] [place] [address] Performed By: #### 3 255-7, 19150-8, 57083-5 ####[facility] [id number] [place] [address] [place] INR Coag (PPP) [Relative time] 1.6 {INR} High 0.9-1.3 [facility] Comment on above: Order Comment: Ernie billy Type: BLOOD SPECIMENOrdering Facility: [facility] Address: [address] [id number] Result Comment: Ale min K Antagonist (VKA) Therapeutic Range: INR 2 to 3 (Target INR of 2.5)Note: For patients treated with VKA drugs, such as warfarin, the [employer] 2012 Guideline recommends a therapeutic INR range of 2 to 3 (target INR of 2.5). This recommendation includes high-risk patients with antiphospholipid syndrome with previous arterial or venous thromboembolism, current-generation mechanical or bioprosthetic aortic heart valve replacement.Note: Patients with mechanical aortic valve replacement and additional risk factors for thromboembolic events (atrial fibrillation, previous thromboembolism, LV dysfunction, hypercoagulable conditions) or an older generation mechanical AVR (i.e., ball in-Cage) or any mechanical MVR should have a INR therapeutic range of 2.5 to 3.5 (target INR of 3).Shukri GH, et al. Chest 2012, 141:7S-47SNishkain RA, et al. [facility] 2017, 70: 252-289 Performed By: #### 3 255-7, 27133-4, 77073-6 ####[facility] [id number] [place] [address] [place] PT Coag (PPP) [Time] 16.3 s High 9.7-13.0 [facility] Comment on above: Order Comment: Speci men Type: BLOOD SPECIMENOrdering Facility: [facility] Address: [address] [place] [address] Performed By: #### 3 255-7, 61244-4, 52328-1 ####[facility] [id number] [place] [id number] [place] Platelets Auto (Bld) [#/Vol] on 10-27-2023 Platelets (Bld) [#/Vol] 142 10*3/uL Low 150-400 [facility] Comment on above: Order Comment: Speci men Type: BLOOD SPECIMENOrdering Facility: [facility] Address: [address] [place] [address] Performed By: #### 7 77-3 ####[facility] LABCLIA [id number] [place] [address] [place] SURGICAL PATHOLOGYon 024 CASE REPORT Normal [facility] Comment on above: Order Comment: Speci men Type: TISSUE SPECIMENOrdering Facility: [facility] Address: [address] [place] [address] Result Comment: Surg ical Pathology Report Case: [id number] Provider: Lynnette Figueroa MD Collected: 10/27/2023 04:11 PMOrdering Location: Admitting Received: 10/27/2023 05:40 PMPathologist: Martin Hoyt MD, PhDSpecimen: Aorta, ascending aorta Performed By: #### S ####[facility] LABCLIA [id number] [address] [place] DIAGNOSIS COMMENT A. 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 There is adventitial thickening adjacent to the old dissection plane. There is no evidence of inflammation. Normal [facility] Comment on above: Order Comment: Speci men Type: TISSUE SPECIMENOrdering Facility: [facility] Address: [address] [place] [address] Performed By: #### S ####[facility] LABCLIA [id number] [address] [place] FINAL DIAGNOSIS Normal [facility] Comment on above: Order Comment: Speci men Type: TISSUE SPECIMENOrdering Facility: [facility] Address: [address] [place] [address] Result Comment: A. A sejal, partial excision:- Chronic dissection. See comment. Performed By: #### S ####[facility] LABCLIA [id number] [place] [address] [place] FINAL PERFORMING LAB Normal [facility] Comment on above: Order Comment: Speci men Type: TISSUE SPECIMENOrdering Facility: [facility] Address: [address] [place] [address] Result Comment: Diag nostic interpretation performed at [facility], [address] [place] [address] CLIA# [id number] Director: William Clements M.D. Performed By: #### S ####[facility] LABCLIA [id number] [place] [address] [place] GROSS DESCRIPTION A. Aorta Normal [facility] Comment on above: Order Comment: Speci men Type: TISSUE SPECIMENOrdering Facility: [facility] Address: [address] [place] [address] Result Comment: Rece ived in formalin, labeled ascending aorta is an excision of aorta measuring 7.0 x 6.0 x 0.4 cm. 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 The adventitial surface is ecchymotic and glistening. The wall thickness measures 0.2 cm. The intimal surface is fagan and unremarkable. 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 sections are submitted in cassettes A1-A2.ROSA/mm/10/28/2023Gross examination performed at [facility], [address] [place] [address] CLIA# [id number] Performed By: #### S ####[facility] LABCLIA [id number] [place] [address] [place] TYPE + SCREENon 10-27-2023 ABO O Normal [facility] Comment on above: Order Comment: Speci men Type: BLOOD SPECIMENOrdering Facility: [facility] Address: [address] [place] [address] Performed By: #### T SCR ####[facility] [id number] [place] [address] [place] HISTORICAL AB SCR STATUS Negative Normal [facility] Comment on above: Order Comment: Speci men Type: BLOOD SPECIMENOrdering Facility: [facility] Address: [address] [place] [address] Performed By: #### T SCR ####[facility] BLO[facility] BANKCLIA [id number] [place] [address] [place] Rh Nom (Bld) Positive Normal [facility] Comment on above: Order Comment: Speci men Type: BLOOD SPECIMENOrdering Facility: [facility] Address: [address] [place] [address] Performed By: #### T SCR ####[facility] BLOOD BANKCLIA [id number] [address] [place] TYPE AND SCREEN EXPIRATION 10/30/2023 23:59 Normal [facility] Comment on above: Order Comment: Speci men Type: BLOOD SPECIMENOrdering Facility: [facility] Address: [address] [place] [address] Performed By: #### T SCR ####[facility] BLOOD BANKCLIA [id number] [place] [address] [place] XR CHEST 1V FRONTAL PORTon 0 10-27-2023 XR CHEST 1V FRONTAL PORT Normal [facility] aPTT PPPon 10-27-2023 aPTT Coag (PPP) [Time] 30.6 s Normal 23.0-32.4 [facility] Comment on above: Order Comment: Speci men Type: BLOOD SPECIMENOrdering Facility: [facility] Address: [address] [place] [address] Performed By: #### 3 255-7, 26190-1, 97790-4 ####[facility] LABCLIA [id number] [place] [address] [place] aPTT Coag (PPP) [Time] 31.8 s Normal 23.0-32.4 [facility] Comment on above: Order Comment: Speci men Type: BLOOD SPECIMENOrdering Facility: [facility] Address: [address] [place] [address] Performed By: #### 3 255-7, 00537-8, 91355-7 ####[facility] LABCLIA [id number] [address] [address] [place] aPTT Coag (PPP) [Time] 29.6 s Normal 23.0-32.4 [facility] Comment on above: Order Comment: Speci men Type: BLOOD SPECIMENOrdering Facility: [facility] Address: [address] [place] [address] Performed By: #### 1 4979-9 ####[facility] [id number] [place] [address] [place] CNOVSPon 10-19-2023 CNOVSP Normal [facility] CNOVon 07-08-2023 CNOV Normal [facility] CNOVSPon 06-22-2023 CNOVSP Normal [facility] CNOVSPon 03-16-2023 CNOVSP Normal [facility] Free K+L Lt Chains,Qn,Son Immunoglobulin light chains.kappa.free (S) [Mass/Vol] 58.1 mg/L High 3.3-19.4 [facility] Comment on above: Performed By: #### 2 189471, 231933659, 46726964, 505846821, 24722381, 9705042, 47090310, 7111106 #### [facility] [address] [place] [address] Immunoglobulin light chains.kappa.free/Immu noglobulin light chains.lambda.free (S) [Mass ratio] 1.63 Invalid Interpretation Code 0.26-1.65 [facility] Comment on above: Result Comment: Perf ormed at: [facility] [id number] [place], [place] [id number] PhD Arik Wright Performed By: #### 2 998522, 757708987, 64852416, 327165239, 23226853, 0405698, 81130563, 1592114 #### [facility] [address] [place] [address] Immunoglobulin light chains.lambda.free [Mass/Vol] 35.7 mg/L High 5.7-26.3 [facility] Comment on above: Performed By: #### 2 797752, 707891200, 97725210, 346489480, 85516866, 0203926, 13324791, 5079696 #### [facility] [address] [place] [address] DIPIKA & UPE, [place] Uron 023 Albumin Elph (24H U) [Mass fraction] 32.1 % Invalid Interpretation Code [facility] Comment on above: Performed By: #### 2 491436, 231982066, 88195629, 255407605, 17102091, 7793229, 50209716, 5203403 #### [facility] [address] [place] [address] Alpha 1 globulin Elph (24H U) [Mass fraction] 4.6 % Invalid Interpretation Code [facility] Comment on above: Performed By: #### 2 546654, 835981861, 05838267, 445039046, 60263505, 1987164, 54765942, 1530503 #### [facility] [address] [place] [address] Alpha 2 globulin Elph (24H U) [Mass fraction] 13.6 % Invalid Interpretation Code [facility] Comment on above: Performed By: #### 2 062132, 865144534, 71098017, 979408073, 44138010, 0605994, 01555276, 5828194 #### [facility] [address] [place] [address] Beta globulin Elph (U) [Mass fraction] 27.7 % Invalid Interpretation Code [facility] Comment on above: Performed By: #### 2 609080, 635583638, 07739601, 207345880, 45596502, 5384415, 42674359, 0319815 #### [facility] [address] [place] [address] Gamma globulin Elph (24H U) [Mass fraction] 22.0 % Invalid Interpretation Code [facility] Comment on above: Performed By: #### 2 976824, 933913725, 12645311, 031753131, 30601493, 8146703, 34742544, 9006368 #### [facility] [address] [place] [address] Interpretation Immunofixation (U) [Interp] Comment: Invalid Interpretation Code [facility] Comment on above: Result Comment: Pres ence of monoclonal protein is unclear at this time. Suggest repeat in 3 to 6 months if clinically indicated. Performed By: #### 2 282609, 979133488, 18454391, 602276873, 20598870, 1133109, 96019928, 6052292 #### [facility] [address] [place] [address] Note Comment Invalid Interpretation Code [facility] Comment on above: Result Comment: Prot ein electrophoresis scan will follow via computer, mail, or laundry attendant delivery. Performed at: [facility] [id number] PhD Arik Wright Performed By: #### 2 232930, 936899804, 64123358, 203926156, 73589610, 5433416, 88735996, 3803249 #### [facility] [address] [place] [address] Protein (U) [Mass/Vol] 23.2 mg/dL Invalid Interpretation Code Not Estab. [facility] Comment on above: Performed By: #### 2 849577, 088094337, 05406290, 852251645, 72073930, 9433504, 13039078, 5651161 #### [facility] [address] [place] [address] Protein.monoclonal Elph (24H U) [Mass fraction] Not Observed Invalid Interpretation Code Not Observed [facility] Comment on above: Performed By: #### 2 585805, 254089117, 54659818, 844095643, 00125946, 9438106, 62073963, 2653038 #### [facility] [address] [place] [address] DIPIKA and PE, Serumon 01-29-20 23 Albumin [Mass/Vol] 3.9 g/dL Invalid Interpretation Code 2.9-4.4 [facility] Comment on above: Performed By: #### 2 484676, 101198364, 34677670, 585376113, 32531716, 5676083, 93520012, 0164725 #### [facility] [address] [place] [address] Albumin/Globulin [Mass ratio] 1.1 {ratio} Invalid Interpretation Code 0.7-1.7 [facility] Comment on above: Performed By: #### 2 917929, 561768292, 23318704, 050744882, 84722157, 5207302, 07857334, 8779878 #### [facility] [address] [place] [address] Alpha 1 globulin Elph [Mass/Vol] 0.2 g/dL Invalid Interpretation Code 0.0-0.4 [facility] Comment on above: Performed By: #### 2 425510, 078738827, 62605030, 753210600, 39480814, 4539636, 99665610, 7308901 #### [facility] [address] [place] [address] Alpha 2 globulin Elph [Mass/Vol] 0.8 g/dL Invalid Interpretation Code 0.4-1.0 [facility] Comment on above: Performed By: #### 2 707694, 793728700, 34068404, 767773129, 94712852, 1190749, 67965528, 7130918 #### [facility] [address] [place] [address] Beta globulin Elph [Mass/Vol] 1.2 g/dL Invalid Interpretation Code 0.7-1.3 [facility] Comment on above: Performed By: #### 2 965403, 447049792, 07402852, 437925860, 74934923, 0420281, 97158816, 0818527 #### [facility] [address] [place] [address] Gamma globulin Elph [Mass/Vol] 1.6 g/dL Invalid Interpretation Code 0.4-1.8 [facility] Comment on above: Performed By: #### 2 579158, 327720785, 74656874, 019229954, 58963239, 5360565, 46926840, 5736285 #### [facility] [address] [place] [address] Globulin (S) [Mass/Vol] 3.8 g/dL Invalid Interpretation Code 2.2-3.9 [facility] Comment on above: Performed By: #### 2 631763, 849307586, 62575812, 546991635, 94663747, 0472455, 30172921, 5040515 #### [facility] [address] [place] [address] IgA [Mass/Vol] 327 mg/dL Invalid Interpretation Code 87-352 [facility] Comment on above: Performed By: #### 2 918036, 770020649, 37599976, 970987823, 30021272, 8906268, 91731621, 2981029 #### [facility] [address] [place] [address] IgG [Mass/Vol] 1588 mg/dL Invalid Interpretation Code 586-1602 [facility] Comment on above: Performed By: #### 2 154225, 805083187, 81050091, 183424188, 49646060, 4993691, 48805645, 7072947 #### [facility] [address] [place] [address] IgM [Mass/Vol] 179 mg/dL Invalid Interpretation Code 26-217 [facility] Comment on above: Performed By: #### 2 456764, 392908186, 33969269, 097798166, 87999621, 7463701, 52165472, 3700783 #### [facility] [address] [place] [address] Interpretation IEP [Interp] Comment Invalid Interpretation Code [facility] Comment on above: Result Comment: No m onoclonality detected. Performed By: #### 2 303595, 255812384, 61108408, 468595744, 14165515, 2163440, 90974289, 5276957 #### [facility] [address] [place] [address] Laboratory comment Andi (Report) Comment Invalid Interpretation Code [facility] Comment on above: Result Comment: Prot ein electrophoresis scan will follow via computer, mail, or laundry attendant delivery. Performed at: [email or web address] [address] [id number] PhD Arik Wright Performed By: #### 2 807471, [id number], 32551029, 510572564, 43875904, 0425132, 87369531, 5314023 #### [facility] [address] [place] [address] Protein [Mass/Vol] 7.7 g/dL Invalid Interpretation Code 6.0-8.5 [facility] Comment on above: Performed By: #### 2 888148, 347555765, 61380157, 158682613, 15823240, 6936870, 12966192, 3362774 #### [facility] [address] [place] [address] Protein.monoclonal Elph [Mass/Vol] Not Observed Invalid Interpretation Code Not Observed [facility] Comment on above: Performed By: #### 2 425250, 143049018, 12983790, 355731572, 99113988, 1224119, 85436304, 5723361 #### [facility] [address] [place] [address] PTH Intacton 01-27-2023 Parathyrin.intact [Mass/Vol] 18 pg/mL Invalid Interpretation Code [facility] Comment on above: Result Comment: Perf ormed at: [facility] [address] [place], [place] [id number] PhD Arik Wright Performed By: #### 2 976733, 033806803, 44455818, 288513529, 16321572, 0557164, 85486180, 9216556 #### [facility] [address] [place] [address] CBC w/Indiceson 01-26-2023 Erythrocyte distribution width (RBC) [Ratio] 15.4 % High 10.9-14.2 [facility] Comment on above: Performed By: #### 2 092456, 186776122, 42913308, 383081271, 39188868, 5264379, 97550101, 4495105 #### [facility] [address] [place] [address] Hematocrit (Bld) [Volume fraction] 45.2 % Normal 34.0-46.0 [facility] Comment on above: Performed By: #### 2 996170, 120304650, 82536253, 524799531, 79793420, 8713064, 13681881, 3445202 #### [facility] [address] [place] [address] Hemoglobin (Bld) [Mass/Vol] 14.8 g/dL Normal 12.0-16.0 [facility] Comment on above: Performed By: #### 2 847584, 972957514, 21992401, 351519666, 63021793, 9913193, 40487558, 0432976 #### [facility] [address] [place] [address] MCH (RBC) [Entitic mass] 33.0 pg Normal 27.0-34.0 [facility] Comment on above: Performed By: #### 2 888273, 594025481, 45059156, 884271218, 84740506, 6818318, 91981834, 1292215 #### [facility] [address] [place] [address] MCHC (RBC) [Mass/Vol] 32.8 g/dL Normal 31.4-36.0 [facility] Comment on above: Performed By: #### 2 641315, 258433362, 83317478, 777905716, 15320397, 1587566, 51305113, 4785106 #### [facility] [address] [address] MCV (RBC) [Entitic vol] 100.4 fL High 80.0-100.0 [facility] Comment on above: Performed By: #### 2 211093, 433026219, 29779588, 950530759, 76395848, 6237539, 12184307, 3817800 #### [facility] [address] [address] Platelet mean volume (Bld) [Entitic vol] 6.8 fL Normal 6.4-10.8 [facility] Comment on above: Performed By: #### 2 098499, 228268777, 62441403, 706915669, 68016423, 8124119, 83351611, 7669195 #### [facility] [address] [address] Platelets (Bld) [#/Vol] 218.0 E9/L Normal 150.0-500. 0 [facility] Comment on above: Performed By: #### 2 002148, 918637053, 31763849, 586662911, 24253047, 6817553, 49075975, 2440030 #### [facility] [address] [place] [address] RBC (Bld) [#/Vol] 4.5 E12/L Normal 4.3-5.9 [facility] Comment on above: Performed By: #### 2 966559, 971556769, 68611146, 150496822, 69291021, 0838711, 43173473, 4025886 #### [facility] [address] [address] WBC corrected for nucl RBC Auto (Bld) [#/Vol] 6.7 E9/L Normal 4.0-11.0 [facility] Comment on above: Performed By: #### 2 625823, 741889967, 85976720, 901853534, 43182661, 2587492, 83441625, 1367403 #### [facility] [address] [place] [address] Magnesiumon 01-26-2023 Magnesium [Mass/Vol] 1.8 mg/dL Normal 1.3-2.4 [facility] Comment on above: Performed By: #### 2 159008, 568631147, 14755010, 516079729, 02099079, 1247220, 94793615, 1515704 #### [facility] [address] [place] [address] Physician Orderon 01-26-2023 Physician Order [id number]:[id number] Normal [facility] Renal Panelon 01-26-2023 Albumin [Mass/Vol] 4.0 g/dL Normal 3.3-5.0 [facility] Comment on above: Performed By: #### 2 843365, 640160819, 34372152, 518869352, 66120706, 9140682, 62734649, 8123988 #### [facility] [address] [place] [address] Anion gap [Moles/Vol] 11 mmol/L Normal 6-16 [facility] Comment on above: Performed By: #### 2 177883, 702468274, 26449426, 365291313, 59384794, 4831261, 42613305, 5983799 #### [facility] [address] [place] [address] Calcium [Mass/Vol] 9.5 mg/dL Normal 8.9-11.1 [facility] Comment on above: Performed By: #### 2 282788, 732079310, 70123086, 485668565, 27005936, 5901116, 13367936, 7262502 #### [facility] [address] [place] [address] Chloride [Moles/Vol] 108 mmol/L Normal 101-111 [facility] Comment on above: Performed By: #### 2 144779, 344925973, 08554120, 644765974, 62895175, 7536878, 68657725, 5694424 #### [facility] [address] [place] [address] CO2 [Moles/Vol] 25 mmol/L Normal 21-31 [facility] Comment on above: Performed By: #### 2 684996, 152299706, 46814094, 657424736, 72319439, 2293634, 88433153, 0240960 #### [facility] [address] [place] [address] Creatinine [Mass/Vol] 1.0 mg/dL Normal 0.5-1.3 [facility] Comment on above: Performed By: #### 2 741475, 026588995, 61964293, 589986913, 64337424, 0485015, 31250828, 3217658 #### [facility] [address] [place] [address] Glucose [Mass/Vol] 143 mg/dL Normal 55-199 [facility] Comment on above: Result Comment: If t his glucose result represents a fasting glucose, interpretation should refer to the following reference range: 55-99 mg/dL Performed By: #### 2 849244, 563486186, 24792205, 259551907, 12168011, 1369543, 49049634, 7114511 #### [facility] [address] [place] [address] Phosphate [Mass/Vol] 3.5 mg/dL Normal 1.9-4.6 [facility] Comment on above: Performed By: #### 2 925125, 865752403, 88628417, 440718282, 80550584, 6845674, 93185428, 5446385 #### [facility] [address] [place] [address] Potassium [Moles/Vol] 4.0 mmol/L Normal 3.5-5.3 [facility] Comment on above: Performed By: #### 2 473436, 163763202, 82433167, 717207319, 67138535, 1861063, 65284359, 4235264 #### [facility] [address] [place] [address] Sodium [Moles/Vol] 140 mmol/L Normal 135-145 [facility] Comment on above: Performed By: #### 2 873702, 713932149, 91865318, 709585627, 20347215, 2460367, 98547717, 4377993 #### [facility] [address] [place] [address] Urea nitrogen [Mass/Vol] 19 mg/dL Normal 5-21 [facility] Comment on above: Performed By: #### 2 312616, 635165996, 71838626, 393657096, 03165005, 2931009, 79699014, 7983302 #### [facility] [address] [place] [address] Urea nitrogen/Creatinine [Mass ratio] 19 No Units Normal 10-20 [facility] Comment on above: Performed By: #### 2 613873, 860744305, 86301362, 460287557, 00239107, 6588101, 55603452, 2969497 #### [facility] [address] [place] [address] U Protein/Creat Ratioon 01-01 Albumin Elph (U) [Mass fraction] 24.9 mg/dL Invalid Interpretation Code [facility] Comment on above: Result Comment: The reference range and other method performance specifications have not been established for this test; results should be integrated into the clinical context for interpretation. Performed By: #### 2 949581, 710487570, 11032944, 519160542, 35585960, 5388193, 79755914, 3981174 #### [facility] [address] [place] [address] Creatinine (U) [Mass/Vol] 118.9 mg/dL Invalid Interpretation Code [facility] Comment on above: Result Comment: The reference range and other method performance specifications have not been established for this test; results should be integrated into the clinical context for interpretation. Performed By: #### 2 505982, 165638668, 26758480, 760788922, 31709206, 9056287, 14261036, 5747797 #### [facility] [address] [place] [address] U Prot/Creat Ratio 209.40 mg/gm Cr High .00-200.00 [facility] Comment on above: Performed By: #### 2 857403, 306467811, 62372667, 156240433, 79351353, 7919501, 44807216, 1465855 #### [facility] [address] [place] [address] Uric Acidon 01-26-2023 Urate [Mass/Vol] 5.6 mg/dL Normal 2.2-7.4 [facility] Comment on above: Performed By: #### 2 557462, 046697136, 72438371, 127020104, 27648469, 9830520, 26660976, 5704675 #### [facility] [address] [place] [address] Urinalysison 01-26-2023 Bacteria LM Ql (Urine sed) 1+ /HPF Abnormal Trace [facility] Comment on above: Performed By: #### 1 7165427, 59090118, 8948265571 #### [facility] [address] [place] [address] Bilirubin Ql (U) Negative Normal Negative [facility] Comment on above: Performed By: #### 1 4579415, 22755396, 4239792001 #### [facility] [address] [place] [address] Clarity (U) CLEAR Normal Clear [facility] Comment on above: Performed By: #### 1 5602311, 63765766, 7022165361 #### [facility] [address] [place] [address] Color (U) YELLOW Normal Yellow [facility] Comment on above: Performed By: #### 1 4158420, 24295784, 1032210207 #### [facility] [address] [place] [address] Epithelial cells.squamous LM.HPF (Urine sed) [#/Area] 3-4 Normal 0-2 [facility] Comment on above: Performed By: #### 1 0675225, 79339011, 7995320863 #### [facility] [address] [place] [address] Glucose Test strip (U) [Mass/Vol] Negative Normal Negative [facility] Comment on above: Performed By: #### 1 1940018, 69691504, 7843630587 #### [facility] [address] [place] [address] Hemoglobin Ql (U) Negative Normal Negative [facility] Comment on above: Performed By: #### 1 9910909, 48375229, 4131830209 #### [facility] [address] [place] [address] Ketones (U) [Mass/Vol] Negative Normal Negative [facility] Comment on above: Performed By: #### 1 6262196, 57349028, 8919972853 #### [facility] [address] [place] [address] Waimalu.plasma/[place]aim[place]u .RBC (Bld) [Mass ratio] 0-3 Normal 0-3 [facility] Comment on above: Performed By: #### 1 8393730, 59901614, 1381456602 #### [facility] [address] [place] [address] Nitrite Ql (U) Negative Normal Negative [facility] Comment on above: Performed By: #### 1 0859867, 35024808, 8063648161 #### [facility] [address] [place] [address] pH (U) 6.5 [pH] Invalid Interpretation Code 5.0-9.0 [facility] Comment on above: Performed By: #### 1 6394981, 81973916, 2091536168 #### [facility] [address] [place] [address] Protein (U) [Mass/Vol] Negative Normal Negative [facility] Comment on above: Performed By: #### 1 0419101, 16314116, 2543942506 #### [facility] [address] [place], [place] [address] Specific gravity (U) [Rel density] 1.020 Invalid Interpretation Code 1.005-1.03 0 [facility] Comment on above: Performed By: #### 1 7022651, 90136597, 3647301416 #### [facility] [address] [place] [address] Type of Urine collection method Clean Catch Normal [facility] Comment on above: Performed By: #### 1 6974712, 58543732, 9924351494 #### [facility] [address] [place] [address] Urobilinogen Qn (U) 1.0 {Bob'U}/dL Normal 0.0-1.0 [facility] Comment on above: Performed By: #### 1 4463518, 42975676, 3393274680 #### [facility] [address] [place] [address] WBC Auto Ql (U) 2+ Abnormal Negative [facility] Comment on above: Performed By: #### 1 3955635, 55843402, 8566856541 #### [facility] [address] [place] [address] WBC LM.HPF (Urine sed) [#/Area] 16-25 Abnormal 0-5 [facility] Comment on above: Performed By: #### 1 2579680, 16822152, 6940837522 #### [facility] [address] [place] [address] Vitamin D 25 Hydroxyon 01-26 25-hydroxyvitamin D3 [Mass/Vol] 57.9 ng/mL Normal 30.0-100.0 [facility] Comment on above: Result Comment: Vit machuca D deficiency has been defined as a level of serum 25-OH vitamin D less than 20 ng/mL (1,2) by the [place] [employer] and an Endocrine Society practice guideline. The Endocrine Society further defined vitamin D insufficiency as a level between 21 and 29 ng/mL (2). 1. IOM ([place] of [employer]). 2010. Dietary reference intakes for calcium and D. [place]: The National Academies Press. 2. Rafal MF, Jose David ROSENBAUM, Sue JAMA, et al. Evaluation, treatment, and prevention of vitamin D deficiency: an Endocrine Society clinical practice guideline. JCEM. 2010; 96 (7):1911-30. Performed By: #### 2 219057, 101896071, 71657934, 335627123, 95741460, 7986205, 29742479, 3488176 #### [facility] [address] [place] [address] eGFRon 01-26-2023 GFR/1.73 sq M.predicted among non-blacks MDRD (S/P/Bld) [Vol rate/Area] 64 mL/min/1.73 m2 Normal >=59 [facility] Comment on above: Order Comment: Order added by Discern Expert. Result Comment: Telecommunications Officer rocael kidney disease could be indicated at eGFR's of less than 60 mL/min/1.73m2. Kidney failure is indicated at less than 15 mL/min/1.73m2. Performed By: #### 2 982375, 585886379, 78860265, 838538211, 21081504, 1242567, 00365563, 0033556 #### [facility] [address] [place] [address] CBC AUTO DIFFon 08-31-2022 BASO # 0.1 103/ul Normal 0.0-0.1 [facility] Comment on above: Performed By: #### B MP #### [facility] [address] [place] [address] Dr. Adrianne Johnson Basophils/100 WBC (Bld) 1.0 % Normal 0.2-2.0 [facility] Comment on above: Performed By: #### B MP #### [facility] [address] [place] [address] Dr. Adrianne Johnson EO # 0.3 103/ul Normal 0.0-0.7 [facility] Comment on above: Performed By: #### B MP #### [facility] [address] [place] [address] Dr. Adrianne Johnson Eosinophils/100 WBC (Bld) 3.5 % Normal 0.9-7.0 [facility] Comment on above: Performed By: #### B MP #### [facility] [address] [place] [address] Dr. Adrianne Johnson Erythrocyte distribution width (RBC) [Ratio] 14.2 % Normal 11.0-15.0 [facility] Comment on above: Performed By: #### B MP #### [facility] [address] [place] [address] Dr. Adrianne Johnson Hematocrit (Bld) [Volume fraction] 41.6 % Normal 36.0-48.0 [facility] Comment on above: Performed By: #### B MP #### [facility] [address] [place] [address] Dr. Adrianne Johnson Hemoglobin (Bld) [Mass/Vol] 13.4 g/dL Normal 12.0-16.0 [facility] Comment on above: Performed By: #### B MP #### [facility] [address] [place] [address] Dr. Adrianne Johnson IG # 0.05 10e3/ul Critically high 0.00-0.03 [facility] Comment on above: Performed By: #### B MP #### [facility] [address] [place] [address] Dr. Adrianne Johnson IG % 0.5 % Normal 0.0-0.5 [facility] Comment on above: Performed By: #### B MP #### [facility] [address] [place] [address] Dr. Adrianne Johnson LYMPH # 3.3 103/ul Normal 1.2-3.8 [facility] Comment on above: Performed By: #### B MP #### [facility] [address] [place] [address] Dr. Adrianne Johnson Lymphocytes/100 WBC (Bld) 36.5 % Normal 20.5-60.0 [facility] Comment on above: Performed By: #### B MP #### [facility] [address] [place] [address] Dr. Adrianne Johnson MANUAL DIFF REQ NO Normal [facility] Comment on above: Performed By: #### B MP #### [facility] [address] [place] [address] Dr. Adrianne Johnson MCH (RBC) [Entitic mass] 33.0 pg Normal 26.7-34.0 [facility] Comment on above: Performed By: #### B MP #### [facility] [address] [place] [address] Dr. Adrianne Johnson MCHC (RBC) [Mass/Vol] 32.2 g/dL Normal 29.9-35.2 [facility] Comment on above: Performed By: #### B MP #### [facility] [address] [place] [address] Dr. Adrianne Johnson MCV (RBC) [Entitic vol] 102.5 fL Critically high 81.0-99.0 [facility] Comment on above: Performed By: #### B MP #### [facility] [address] [place] [address] Dr. Adrianne Johnson MONO # 0.8 103/ul Normal 0.3-0.8 [facility] Comment on above: Performed By: #### B MP #### [facility] [address] [place] [address] Dr. Adrianne Johnson Monocytes/100 WBC (Bld) 9.2 % Normal 1.7-12.0 [facility] Comment on above: Performed By: #### B MP #### [facility] [address] [address] [address] Adrianne Johnson NEUT # 4.5 103/ul Normal 1.4-6.5 [facility] Comment on above: Performed By: #### B MP #### [facility] [address] [address] [address] Adrianne Johnson Neutrophils/100 WBC (Bld) 49.3 % Normal 43.0-75.0 [facility] Comment on above: Performed By: #### B MP #### [facility] [address] [address] [address] Adrianne Johnson Platelet mean volume (Bld) [Entitic vol] 9.2 fL Critically low 9.5-13.5 [facility] Comment on above: Performed By: #### B MP #### [facility] [address] [address] [address] Adrianne Johnson PLT 228 103/ul Normal 150-450 [facility] Comment on above: Performed By: #### B MP #### [facility] [address] [address] [address] Adrianne Johnson RBC 4.06 106/ul Critically low 4.20-5.40 [facility] Comment on above: Performed By: #### B MP #### [facility] [address] [address] [address] Adrianne Johnson WBC 9.1 103/ul Normal 4.0-11.0 [facility] Comment on above: Performed By: #### B MP #### [facility] [address] [address] [address] Adrianne Johnson CULTURE ABSCESSon 08-31-2022 CULTURE ABSCESS Culture Observations : NORMAL SKIN GABE. Normal [facility] Comment on above: Performed By: #### F ERR FETIBC #### [facility] [address] [address] [address] Adrianne Johnson PROF CHEM 8 (BAS METB)on Anion gap [Moles/Vol] 13.2 mmol/L Normal [facility] Comment on above: Performed By: #### B MP #### [facility] [address] [address] [address] Adrianne Johnson Calcium [Mass/Vol] 8.8 mg/dL Normal 8.5-10.1 [facility] Comment on above: Performed By: #### B MP #### [facility] [address] [address] [address] Adrianne Johnson Chloride [Moles/Vol] 104 mmol/L Normal 98-107 [facility] Comment on above: Performed By: #### B MP #### [facility] [address] [address] [address] Adrianne Johnson CO2 [Moles/Vol] 24.6 mmol/L Normal 21.0-32.0 [facility] Comment on above: Performed By: #### B MP #### [facility] [address] [address] [address] Adrianne Johnson Creatinine [Mass/Vol] 1.22 mg/dL Critically high 0.55-1.02 [facility] Comment on above: Performed By: #### B MP #### [facility] [address] [address] [address] Adrianne Johnson EGFR-AF ESTONIAN 54 mL/min/1.73m2 Critically low >=60 [facility] Comment on above: Performed By: #### B MP #### [facility] [address] [address] [address] Adrianne Johnson EGFR-NON AF ESTONIAN 45 mL/min/1.73m2 Critically low >=60 [facility] Comment on above: Performed By: #### B MP #### [facility] [address] [address] [address] Adrianne Johnson Glucose [Mass/Vol] 215 mg/dL Critically high 74-106 [facility] Comment on above: Performed By: #### B MP #### [facility] [address] [address] [address] Adrianne Johnson Potassium [Moles/Vol] 3.8 mmol/L Normal 3.5-5.1 [facility] Comment on above: Performed By: #### B MP #### [facility] [address] [address] [address] Adrianne Johnson Sodium [Moles/Vol] 138 mmol/L Normal 136-145 [facility] Comment on above: Performed By: #### B MP #### [facility] [address] [address] [address] Adrianne Johnson Urea nitrogen [Mass/Vol] 18.0 mg/dL Normal 7.0-18.0 [facility] Comment on above: Performed By: #### B MP #### [facility] [address] [address] [address] Adrianne Johnson Urea nitrogen/Creatinine [Mass ratio] 14.8 mg/mg Normal [facility] Comment on above: Performed By: #### B MP #### [facility] [address] [address] [address] Adrianne Johnson US SINGLE QUAD LT [...] by: ERNIE LOWERY Date: 2022-08-31 16:02 Normal [facility] PTH INTACTon 07-15-2022 PTH, Intact 25 pg/mL Normal 15-65 [facility] Comment on above: Performed By: #### B MP #### [facility] [address] [address] [address] Adrianne Johnson FERRITINon 07-14-2022 Ferritin [Mass/Vol] 76.0 ng/mL Normal 8.0-252.0 [facility] Comment on above: Performed By: #### F ETIBC, VITAD, FERR #### [facility] [address] [address] [address] Adrianne Johnson GLYCOHEMOGLOBIN A1Con 2022 ADA RECOMMENDATION SEE BELOW Normal [facility] Comment on above: Result Comment: ADA RECOMMENDED LIMIT 4.0 - 6.0 ADA THERAPEUTIC TARGET < 7.0 ACTION SUGGESTED > 7.0 Performed By: #### F ERR, FETIBC #### [facility] [address] [place] [address] Dr. Adrianne Johnson Glucose [Mass/Vol] 189 mg/dL Normal [facility] Comment on above: Performed By: #### F ERR, FETIBC #### [facility] [address] [place] [address] Dr. Adrianne Johnson HbA1c (Bld) [Mass fraction] 8.2 % Critically high 4.5-6.2 [facility] Comment on above: Performed By: #### F ERR, FETIBC #### [facility] [address] [place] [address] Dr. Adrianne Johnson HEMOGRAM AND PLATELon 2022 Hematocrit (Bld) [Volume fraction] 45.5 % Normal 36.0-48.0 [facility] Comment on above: Performed By: #### H H #### [facility] [address] [place] [address] Dr. Adrianne Johnson Hemoglobin (Bld) [Mass/Vol] 14.5 g/dL Normal 12.0-16.0 [facility] Comment on above: Performed By: #### H H #### [facility] [address] [place] [address] Dr. Adrianne Johnson MCH (RBC) [Entitic mass] 32.1 pg Normal 26.7-34.0 [facility] Comment on above: Performed By: #### H H #### [facility] [address] [place] [address] Dr. Adrianne Johnson MCHC (RBC) [Mass/Vol] 31.9 g/dL Normal 29.9-35.2 [facility] Comment on above: Performed By: #### H H #### [facility] [address] [place] [address] Dr. Adrianne Johnson MCV (RBC) [Entitic vol] 100.7 fL Critically high 81.0-99.0 [facility] Comment on above: Performed By: #### H H #### [facility] [address] [place] [address] Dr. Adrianne Johnson PLT 230 103/ul Normal 150-450 [facility] Comment on above: Performed By: #### H H #### [facility] [address] [place] [address] Dr. Adrianne Johnson RBC 4.52 106/ul Normal 4.20-5.40 [facility] Comment on above: Performed By: #### H H #### [facility] [address] [place] [address] Dr. Adrianne Johnson WBC 7.0 103/ul Normal 4.0-11.0 [facility] Comment on above: Performed By: #### H H #### [facility] [address] [place] [address] Dr. Adrianne Johnson IRON AND TIBCon 07-14-2022 % SATURATION 28.8 % Normal [facility] Comment on above: Performed By: #### F ETIBC, VITAD, FERR #### [facility] [address] [place] [address] Dr. Adrianne Johnson Iron [Mass/Vol] 96.0 ug/dL Normal 50.0-170.0 [facility] Comment on above: Performed By: #### F ETIBC, VITAD, FERR #### [facility] [address] [place] [address] Dr. Adrianne Johnson TIBC DIRECT 333.0 ug/dL Normal 250.0-450. 0 [facility] Comment on above: Performed By: #### F ETIBC, VITAD, FERR #### [facility] [address] [place] [address] Dr. Adrianne Johnson MAGNESIUMon 07-14-2022 Magnesium [Mass/Vol] 2.0 mg/dL Normal 1.8-2.4 [facility] Comment on above: Performed By: #### B MP #### [facility] [address] [place] [address] Dr. Adrianne Johnson RENAL FUNCTION PANELon 07-14 Albumin [Mass/Vol] 3.6 g/dL Normal 3.4-5.0 [facility] Comment on above: Performed By: #### B MP #### [facility] [address] [address] [address] Adrinane Johnson Calcium [Mass/Vol] 9.3 mg/dL Normal 8.5-10.1 [facility] Comment on above: Performed By: #### B MP #### [facility] [address] [address] [address] Adrianne Johnson Chloride [Moles/Vol] 104 mmol/L Normal 98-107 [facility] Comment on above: Performed By: #### B MP #### [facility] [address] [address] [address] Adrianne Johnson CO2 [Moles/Vol] 24.3 mmol/L Normal 21.0-32.0 [facility] Comment on above: Performed By: #### B MP #### [facility] [address] [address] [address] Adrianne Johnson Creatinine [Mass/Vol] 1.06 mg/dL Critically high 0.55-1.02 [facility] Comment on above: Performed By: #### B MP #### [facility] [address] [address] [address] Adrianne Johnson EGFR-AF ESTONIAN >60 Normal >=60 [facility] Comment on above: Performed By: #### B MP #### [facility] [address] [address] [address] Adrianne Johnson EGFR-NON AF ESTONIAN 53 mL/min/1.73m2 Critically low >=60 [facility] Comment on above: Performed By: #### B MP #### [facility] [address] [address] [address] Adrianne Johnson Glucose [Mass/Vol] 276 mg/dL Critically high 74-106 [facility] Comment on above: Performed By: #### B MP #### [facility] [address] [address] [address] Adrianne Johnson Phosphate [Mass/Vol] 4.2 mg/dL Normal 2.6-4.7 [facility] Comment on above: Performed By: #### B MP #### [facility] [address] [address] [address] Adrianne Johnson Potassium [Moles/Vol] 3.8 mmol/L Normal 3.5-5.1 [facility] Comment on above: Performed By: #### B MP #### [facility] [address] [address] [address] Adrianne Johnson Sodium [Moles/Vol] 136 mmol/L Normal 136-145 [facility] Comment on above: Performed By: #### B MP #### [facility] [address] [address] [address] Adrianne Jonhson Urea nitrogen [Mass/Vol] 15.0 mg/dL Normal 7.0-18.0 [facility] Comment on above: Performed By: #### B MP #### [facility] [address] [place] [address] Dr. Adrianne Johnson UA RANDOM W/MICROSCOPICon BACTERIA TRACE Abnormal NONE SEEN [facility] Comment on above: Performed By: #### F ERR, FETIBC #### [facility] [address] [place] [address] Dr. Adrianne Johnson Bilirubin Ql (U) Negative Normal NEGATIVE [facility] Comment on above: Performed By: #### F ERR, FETIBC #### [facility] [address] [place] [address] Dr. Adrianne Johnson CA OX CRYSTALS RARE Normal [facility] Comment on above: Performed By: #### F ERR, FETIBC #### [facility] [address] [place] [address] Dr. Adrianne Johnson CAST NONE SEEN Normal NONE SEEN [facility] Comment on above: Performed By: #### F ERR, FETIBC #### [facility] [address] [place] [address] Dr. Adrianne Johnson Clarity (U) CLEAR Normal CLEAR [facility] Comment on above: Performed By: #### F ERR, FETIBC #### [facility] [address] [place] [address] Dr. Adrianne Johnson Color (U) YELLOW Normal YELLOW [facility] Comment on above: Performed By: #### F ERR, FETIBC #### [facility] [address] [address] [address] Adrianne Johnson Crystals LM Nom (Urine sed) SEEN Abnormal NONE SEEN [facility] Comment on above: Performed By: #### F ERR, FETIBC #### [facility] [address] [address] [address] Adrianne Johnson Epithelial cells LM Ql (Urine sed) FEW Abnormal NONE SEEN /RARE [facility] Comment on above: Performed By: #### F ERR, FETIBC #### [facility] [address] [address] [address] Adrianne Johnson Glucose Ql (U) 500 mg/dl Abnormal NEGATIVE [facility] Comment on above: Performed By: #### F ERR, FETIBC #### [facility] [address] [address] [address] Adrianne Johnson Hemoglobin Ql (U) SMALL Abnormal NEGATIVE [facility] Comment on above: Performed By: #### F ERR, FETIBC #### [facility] [address] [address] [address] Adrianne Johnson Ketones Ql (U) TRACE Abnormal NEGATIVE [facility] Comment on above: Performed By: #### F ERR, FETIBC #### [facility] [address] [address] [address] Adrianne Johnson LEUKOCYTES SMALL Abnormal NEGATIVE [facility] Comment on above: Performed By: #### F ERR, FETIBC #### [facility] [address] [address] [address] Adrianne Johnson MUCOUS NONE SEEN Normal NONE SEEN [facility] Comment on above: Performed By: #### F ERR, FETIBC #### [facility] [address] [address] [address] Adrianne Johnson Nitrite Ql (U) Negative Normal NEGATIVE [facility] Comment on above: Performed By: #### F ERR, FETIBC #### [facility] [address] [address] [address] Adrianne Johnson pH (U) 5.5 [pH] Normal 5-9 [facility] Comment on above: Performed By: #### F ERR, FETIBC #### [facility] [address] [place] [address] Dr. Adrianne Johnson RBC 5-10 Abnormal 0-2 [facility] Comment on above: Performed By: #### F ERR, FETIBC #### [facility] [address] [place] [address] Dr. Adrianne Johnson SPEC GRAVITY >=1.030 Abnormal 1.005-<=1. 025 [facility] Comment on above: Performed By: #### F ERR, FETIBC #### [facility] [address] [place] [address] Dr. Adrianne Johnson UA PROTEIN 30 mg/dl Abnormal NEGATIVE/ TRACE [facility] Comment on above: Performed By: #### F ERR, FETIBC #### [facility] [address] [place] [address] Dr. Adrianne Johnson Urobilinogen Qn (U) 0.2 {Bob'U}/dL Normal 0.2 - 1. 0 [facility] Comment on above: Performed By: #### F ERR, FETIBC #### [facility] [address] [place] [address] Dr. Adrianne Johnson WBC 20-50 Abnormal NONE SEEN [facility] Comment on above: Performed By: #### F ERR, FETIBC #### [facility] [address] [place] [address] Dr. Adrianne Johnson URIC ACID SERUMon 07-14-2022 Urate [Mass/Vol] 4.2 mg/dL Normal 2.6-6.[address] [facility] Comment on above: Performed By: #### B MP #### [facility] [address] [place] [address] Dr. Adrianne Johnson URINE T PROTEIN CREAT RATIOo n 07-14-2022 Protein (U) [Mass/Vol] 112.3 mg/dL Critically high <=12.0 [facility] Comment on above: Performed By: #### U RTPCR #### [facility] [address] [address] [address] Adrianne Johnson UR PROT CREAT RAT 0.[address] [facility] Comment on above: Performed By: #### U RTPCR #### [facility] [address] [place] [address] Dr. Adrianne Johnson URINE CREAT 149.88 mg/dL Normal 20.00-300. 00 [facility] Comment on above: Performed By: #### U RTPCR #### [facility] [address] [place] [address] Dr. Adrianne Johnson VITAMIN D 25 OHon 07-14-2022 VIT D 25-OH 39.2 ng/mL Normal [facility] Comment on above: Performed By: #### F ETIBC, VITAD, FERR #### [facility] [address] [place] [address] Dr. Adrianne Johnson VIT D RANGES SEE BELOW Normal [facility] Comment on above: Result Comment: <20 ng/mL Vit D deficient 20 - <30 ng/mL Vit D insufficient 30 - 100 ng/mL Vit D sufficient >100 ng/mL Potential Toxicity Performed By: #### F ETIBC, VITAD, FERR #### [facility] [address] [place] [address] Dr. Adrianne Johnson Progress Noteson 03-31-2022 Band Lining Bander Authentication Interface Message Text EMERGENCY TRIAGE, TREAT AND TRANSPORT (ET3) DOCUMENTATION OF TELEHEALTH VISIT Date / Time: 03/31/2022 / 1345 Name: Felisha Diallo : 1960 SSN: [id number] EMS Agency: [facility] [x] Verbal consent obtained [] [...] Reported: Same ET3 Encounter Completed by: Robbie Gallardo, DO [place] [employer] VC COMP CONSULTATIONon 03-17 VC COMP CONSULTATION Patient: Saran DIALLO Exam Date: 03/17/2022 : 1960 Gender:F Ordering : DR. DAVION SmithPVentura Admission #: [id number] Family : Order #: [id number] CLICK HERE TO VIEW EXAM RADIOLOGY REPORT [...] the result is pending. The patient sees spanish translator Onc at the [facility] [...] accessory saphenous vein venous insufficiency. Large incompetent picture frames inspector veins corresponding to the patient's wounds. Bilateral [...] saphenous vein insufficiency associated dilatation. Bilateral incompetent picture frames inspector veins with associated active ulcerations 2. Bilateral lower extremity varicose veins 3. Severe below knee bilateral lower extremity subcutaneous edema 4. Indeterminate flow significant arterial disease 5. CEAP: C6, Ep, Asp, Pr PLAN: 1. The patient is to follow-up with spanish translator Onc for the treatment bere (more content not included)... Normal [facility] VC VENOUS REFLUX JACK LMTon 1 05-17-2021 VC VENOUS REFLUX JACK LMT Patient: FELISHA DIALLO Exam Date: 03/17/2022 : 1960 Gender:F Ordering : DR. DAVION SmithPVentura Admission #: [id number] Family : DR ALTAGRACIA FLORES M.D. Order #: [id number] CLICK HERE TO VIEW EXAM RADIOLOGY REPORT [...] thrombus. Compressibility: Normal. Flow: Deep venous reflux. Fur Scraper: Med/dist calf near wound 2.6 mm, 0.8s [...] leg deep vein reflux 3. Bilateral incompetent picture frames inspector veins in the region of the patient's wounds 4. Bilateral incompetent branch saphenous tributaries/varicose veins Dictated by: Altagracia Flores MD on 03/17/2022 at 14:26 Approved by: Altagracia Flores MD on 03/17/2022 at 14:29 Normal [facility] 03-11-2022 CNPN Telephone (GYNML) -- FELISHA DIALLO ([id number]) 1960 F Date Time Provider Department 03/11/22 MARIANA ZAMORA GYN During your visit today, we recorded the [...] PO Daily February 02, 2022 12:00am - HUMIRA,CF, PEN 40 mg/0.4 mL pen kit - famotidine (PEPCID) 20 mg tablet - tolterodine ER (DETROL LA) 4 mg 24 hr capsule Problem List As Of Date: 03/11/2022 (None) Encounter Status:Closed by ZEE VAIL on 03/11/22 Normal [facility] CBC W Auto Differential pane [...] - 21 mg/dL [facility] COVID-19 Positive/NegativeOr dered By: Julián Ortiz on 02-09-2022 SARS-CoV-2 (COVID-19) N gene YOVANA+probe Ql (Resp) Negative Negative [facility] Comment on above: Testing for SARS-CoV -2 by RT-PCRThis test was developed and its performance characteristics determined by [employer] ([employer] and validated at the [facility]. This test has not been FDA cleared [...] the authorization is terminated or revoked sooner. Basophils Auto (Bld) [#/Vol] Ordered By: Julián Ortiz on 02-02-2022 Basophils (Bld) [#/Vol] 0.0 10*3/uL 0.0-0.2 [facility] Basophils/100 WBC Auto (Bld) Ordered By: Julián Ortiz on 02-02-2022 Basophils/100 WBC (Bld) 0.2 % . [facility] Blood hemoglobin measurement (mass/volume)Ordered By: Julián Ortiz on 02-02-2022 Hemoglobin (Bld) [Mass/Vol] 13.7 g/dL 11.8-15.4 [facility] Blood leukocytes automated c ount (number/volume)Ordered By: Julián Ortiz on 02-02-2022 WBC (Bld) [#/Vol] 7.4 10*3/uL 4.5-11.0 [facility] Creatinine and Glomerular fi ltration rate.predicted panel (S/P/Bld)Ordered By: Juliná Ortiz on 02-02-2022 Creatinine [Mass/Vol] 1.08 mg/dL 0.44-1.03 [facility] Eosinophils Auto (Bld) [#/Vo l]Ordered By: Julián Ortiz on 02-02-2022 Eosinophils (Bld) [#/Vol] 0.3 10*3/uL 0.0-0.45 [facility] Eosinophils/100 WBC Auto (Bl d)Ordered By: Julián Ortiz on 02-02-2022 Eosinophils/100 WBC (Bld) 4.7 % . [facility] Erythrocyte distribution wid th Auto (RBC) [Ratio]Ordered By: Julián Ortiz on 02-02-2022 Erythrocyte distribution width (RBC) [Ratio] 14.8 % 11.9-15.3 [facility] Estimated glomerular filtrat ion rate (GFR) non- AmericanOrdered By: Julián Ortiz on 02-02-2022 GFR/1.73 sq M.predicted among non-blacks MDRD (S/P/Bld) [Vol rate/Area] 52 mL/Min [facility] Hematocrit Auto (Bld) [Volum e fraction]Ordered By: Julián Ortiz on 02-02-2022 Hematocrit (Bld) [Volume fraction] 41.9 % 34.0-46.4 [facility] - Hematology and Cell countsOrdered By: Julián Ortiz on 02-02-2022 Nucleated RBC/100 WBC (Bld) [Ratio] 0.1 % 0-0.5 [facility] Lymphocytes Auto (Bld) [#/Vo l]Ordered By: Julián Ortiz on 02-02-2022 Lymphocytes (Bld) [#/Vol] 2.0 10*3/uL 1.00-4.8 [facility] Lymphocytes/100 WBC Auto (Bl d)Ordered By: Julián Ortiz on 02-02-2022 Lymphocytes/100 WBC (Bld) 27.0 % . [facility] MCH Auto (RBC) [Entitic mass ]Ordered By: Julián Ortiz on 02-02-2022 MCH (RBC) [Entitic mass] 31.8 pg 24.7-34.3 [facility] MCHC Auto (RBC) [Mass/Vol]Or dered By: Julián Ortiz on 02-02-2022 MCHC (RBC) [Mass/Vol] 32.7 g/dL 32.0-35.0 [facility] MCV Auto (RBC) [Entitic vol] Ordered By: Julián Ortiz on 02-02-2022 MCV (RBC) [Entitic vol] 97.1 fL 80-100 [facility] Monocytes Auto (Bld) [#/Vol] Ordered By: Julián Ortiz on 02-02-2022 Monocytes (Bld) [#/Vol] 0.7 10*3/uL 0.0-0.8 [facility] Monocytes/100 WBC Auto (Bld) Ordered By: Julián Ortiz on 02-02-2022 Monocytes/100 WBC (Bld) 9.4 % . [facility] Neutrophils Auto (Bld) [#/Vo l]Ordered By: Julián Ortiz on 02-02-2022 Neutrophils (Bld) [#/Vol] 4.3 10*3/uL 1.8-7.7 [facility] Neutrophils/100 WBC Auto (Bl d)Ordered By: Julián Ortiz on 02-02-2022 Neutrophils/100 WBC (Bld) 58.7 % . [facility] No Panel InformationOrdered By: Julián Ortiz on 02-02-2022 Estimated GFR () > 60 mL/Min [facility] Comment on above: GFR estimated refere nce range: According to KDOQI guidelines, <60 ml/min/1.73m2 is sufficient to diagnose a patient with chronic kidney disease. Pharmacy Creatinine Clearance (Chem N/A [facility] Platelet mean volume Auto (B ld) [Entitic vol]Ordered By: Julián Ortiz on 02-02-2022 Platelet mean volume (Bld) [Entitic vol] 6.7 fL 6.3-10.7 [facility] Platelets Auto (Bld) [#/Vol] Ordered By: Julián Ortiz on 02-02-2022 Platelets (Bld) [#/Vol] 290 10*3/uL 150-450 [facility] RBC Auto (Bld) [#/Vol]Ordere d By: Julián Ortiz on 02-02-2022 RBC (Bld) [#/Vol] 4.32 10*6/uL 3.60-5.00 [facility] Serum or plasma anion gap de terminationOrdered By: Julián Ortiz on 02-02-2022 Anion gap [Moles/Vol] 16.9 mmol/L 6.0-15.0 [facility] Serum or plasma calcium abdi urement (mass/volume)Ordered By: Julián Ortiz on 02-02-2022 Calcium [Mass/Vol] 9.3 mg/dL 8.2-10.2 [facility] Serum or plasma chloride maryjane surement (moles/volume)Ordered By: Julián Ortiz on 02-02-2022 Chloride [Moles/Vol] 102 mmol/L 95-114 [facility] Serum or plasma glucose abdi urement (mass/volume)Ordered By: Julián Ortiz on 02-02-2022 Glucose [Mass/Vol] 315 mg/dL 70-100 [facility] Comment on above: ADA recommended refe rence rangeRandom Glucose Reference Range is dependent on time and content of last meal. Glucose of more than 200 mg/dL in a nonstressed, ambulatory subject supports the diagnosis of Diabetes Mellitus. Serum or plasma potassium me asurement (moles/volume)Ordered By: Julián Ortiz on 02-02-2022 Potassium [Moles/Vol] 4.0 mmol/L 3.5-5.1 [facility] Serum or plasma sodium measu rement (moles/volume)Ordered By: Julián Ortiz on 02-02-2022 Sodium [Moles/Vol] 136 mmol/L 136-146 [facility] Serum or plasma total carbon dioxide measurement (moles/volume)Ordered By: Julián Ortiz on 02-02-2022 CO2 [Moles/Vol] 21.1 mmol/L 22.0-30.0 [facility] Serum or plasma urea nitroge n measurement (mass/volume)Ordered By: Julián Ortiz on 02-02-2022 Urea nitrogen [Mass/Vol] 15 mg/dL 9-23 [facility] PTH INTACTon 01-14-2022 PTH, Intact 25 pg/mL Normal 15-65 [facility] Comment on above: Performed By: #### F ERR, FETIBC #### [facility] [address] [address] [address] Adrianne Johnson VIT D 25-OH LABCORPon 2021 Vitamin D, 25-Hydroxy 29.4 ng/mL Critically low 30.0-100.0 [facility] Comment on above: Result Comment: Ale min D deficiency has been defined by the [place] of [employer] and an Endocrine Society practice guideline as a level of serum 25-OH vitamin D less than 20 ng/mL (1,2). The Endocrine Society went on to further define vitamin D insufficiency as a level between 21 and 29 ng/mL (2). 1. IOM ([place] of Medicine). 2010. Dietary reference intakes for calcium and D. [place]: The National Academies Press. 2. Rafal ANTON, Jose David ROSENBAUM, Sue JAMA, et al. Evaluation, treatment, and prevention of vitamin D deficiency: an Endocrine Society clinical practice guideline. JCEM. 2010; 96(7):1911-30. Performed By: #### V ITADLC #### [facility] [address] [place] [address] Dr. Adrianne Johnson FERRITINon 01-13-2022 Ferritin [Mass/Vol] 40.0 ng/mL Normal 8.0-252.0 [facility] Comment on above: Performed By: #### F ERR, FETIBC #### [facility] [address] [place] [address] Dr. Adrianne Johnson HEMOGRAM AND PLATELon 2021 Hematocrit (Bld) [Volume fraction] 42.3 % Normal 36.0-48.0 [facility] Comment on above: Performed By: #### B MP #### [facility] [address] [place] [address] Dr. Adrianne Johnson Hemoglobin (Bld) [Mass/Vol] 13.5 g/dL Normal 12.0-16.0 [facility] Comment on above: Performed By: #### B MP #### [facility] [address] [place] [address] Dr. Adrianne Johnson MCH (RBC) [Entitic mass] 32.1 pg Normal 26.7-34.0 [facility] Comment on above: Performed By: #### B MP #### [facility] [address] [place] [address] Dr. Adrianne Johnson MCHC (RBC) [Mass/Vol] 31.9 g/dL Normal 29.9-35.2 [facility] Comment on above: Performed By: #### B MP #### [facility] [address] [place] [address] Dr. Adrianne Johnson MCV (RBC) [Entitic vol] 100.5 fL Critically high 81.0-99.0 [facility] Comment on above: Performed By: #### B MP #### [facility] [address] [place] [address] Dr. Adrianne Johnson PLT 244 103/ul Normal 150-450 [facility] Comment on above: Performed By: #### B MP #### [facility] [address] [place] [address] Dr. Adrianne Johnson RBC 4.21 106/ul Normal 4.20-5.40 [facility] Comment on above: Performed By: #### B MP #### [facility] [address] [address] [address] Adrianne Johnson WBC 10.4 103/ul Normal 4.0-11.0 [facility] Comment on above: Performed By: #### B MP #### [facility] [address] [place] [address] Dr. Adrianne Johnson IRON AND TIBCon 01-13-2022 % SATURATION 16.3 % Normal [facility] Comment on above: Performed By: #### F ERR, FETIBC #### [facility] [address] [place] [address] Dr. Adrianne Johnson Iron [Mass/Vol] 60.0 ug/dL Normal 50.0-170.0 [facility] Comment on above: Performed By: #### F ERR, FETIBC #### [facility] [address] [place] [address] Dr. Adrianne Johnson TIBC DIRECT 369.0 ug/dL Normal 250.0-450. 0 [facility] Comment on above: Performed By: #### F ERR, FETIBC #### [facility] [address] [place] [address] Dr. Adrianne Johnson MAGNESIUMon 01-13-2022 Magnesium [Mass/Vol] 2.0 mg/dL Normal 1.8-2.4 [facility] Comment on above: Performed By: #### B MP #### [facility] [address] [place] [address] Dr. Adrianne Johnson RENAL FUNCTION PANELon 01-13 Albumin [Mass/Vol] 3.7 g/dL Normal 3.4-5.0 [facility] Comment on above: Performed By: #### B MP #### [facility] [address] [place] [address] Dr. Adrianne Johnson Calcium [Mass/Vol] 8.8 mg/dL Normal 8.5-10.1 [facility] Comment on above: Performed By: #### B MP #### [facility] [address] [address] [address] Adrianne Johnson Chloride [Moles/Vol] 103 mmol/L Normal 98-107 [facility] Comment on above: Performed By: #### B MP #### [facility] [address] [address] [address] Adrianne Johnson CO2 [Moles/Vol] 23.6 mmol/L Normal 21.0-32.0 [facility] Comment on above: Performed By: #### B MP #### [facility] [address] [place] [address] Dr. Adrianne Johnson Creatinine [Mass/Vol] 1.29 mg/dL Critically high 0.55-1.02 [facility] Comment on above: Performed By: #### B MP #### [facility] [address] [place] [address] Dr. Adrianne Johnson EGFR-AF ESTONIAN 51 mL/min/1.73m2 Critically low >=60 [facility] Comment on above: Performed By: #### B MP #### [facility] [address] [place] [address] Dr. Adrianne Johnson EGFR-NON AF ESTONIAN 42 mL/min/1.73m2 Critically low >=60 [facility] Comment on above: Performed By: #### B MP #### [facility] [address] [address] [address] Adrianne Johnson Glucose [Mass/Vol] 326 mg/dL Critically high 74-106 [facility] Comment on above: Performed By: #### B MP #### [facility] [address] [place] [address] Dr. Adrianne Johnson Phosphate [Mass/Vol] 3.3 mg/dL Normal 2.6-4.7 [facility] Comment on above: Performed By: #### B MP #### [facility] [address] [place] [address] Dr. Adrianne Johnson Potassium [Moles/Vol] 3.8 mmol/L Normal 3.5-5.1 [facility] Comment on above: Performed By: #### B MP #### [facility] [address] [place] [address] Dr. Adrianne Johnson Sodium [Moles/Vol] 137 mmol/L Normal 136-145 [facility] Comment on above: Performed By: #### B MP #### [facility] [address] [place] [address] Dr. Adrianne Johnson Urea nitrogen [Mass/Vol] 19.0 mg/dL Critically high 7.0-18.0 [facility] Comment on above: Performed By: #### B MP #### [facility] [address] [place] [address] Dr. Adrianne Johnson UA RANDOM W/MICROSCOPICon BACTERIA NONE SEEN Normal NONE SEEN [facility] Comment on above: Performed By: #### B MP #### [facility] [address] [place] [address] Dr. Adrianne Johnson Bilirubin Ql (U) Negative Normal NEGATIVE [facility] Comment on above: Performed By: #### B MP #### [facility] [address] [place] [address] Dr. Adrianne Johnson CAST NONE SEEN Normal NONE [facility] Comment on above: Performed By: #### B MP #### [facility] [address] [place] [address] Dr. Adrianne Johnson Clarity (U) CLEAR Normal CLEAR [facility] Comment on above: Performed By: #### B MP #### [facility] [address] [place] [address] Dr. Adrianne Johnson Color (U) LT. YELLOW Normal YELLOW [facility] Comment on above: Performed By: #### B MP #### [facility] [address] [place] [address] Dr. Adrianne Johnson Crystals LM Nom (Urine sed) NONE SEEN Normal NONE SEEN [facility] Comment on above: Performed By: #### B MP #### [facility] [address] [place] [address] Dr. Adrianne Johnson Epithelial cells LM Ql (Urine sed) FEW Abnormal NONE SEEN /RARE [facility] Comment on above: Performed By: #### B MP #### [facility] [address] [place] [address] Dr. Adrianne Johnson Glucose Ql (U) >1000 Abnormal NEGATIVE [facility] Comment on above: Performed By: #### B MP #### [facility] [address] [place] [address] Dr. Adrianne Johnson Hemoglobin Ql (U) TRACE-INTACT Abnormal NEGATIVE [facility] Comment on above: Performed By: #### B MP #### [facility] [address] [place] [address] Dr. Adrianne Johnson Ketones Ql (U) Negative Normal NEGATIVE [facility] Comment on above: Performed By: #### B MP #### [facility] [address] [place] [address] Dr. Adrianne Johnson LEUKOCYTES Negative Normal NEGATIVE [facility] Comment on above: Performed By: #### B MP #### [facility] [address] [place] [address] Dr. Adrianne Johnson MUCOUS NONE SEEN Normal NONE SEEN [facility] Comment on above: Performed By: #### B MP #### [facility] [address] [place] [address] Dr. Adrianne Johnson Nitrite Ql (U) Negative Normal NEGATIVE [facility] Comment on above: Performed By: #### B MP #### [facility] [address] [place] [address] Dr. Adrianne Johnson pH (U) 6.0 [pH] Normal 5-9 [facility] Comment on above: Performed By: #### B MP #### [facility] [address] [place] [address] Dr. Adrianne Johnson RBC 2-5 Abnormal 0-2 [facility] Comment on above: Performed By: #### B MP #### [facility] [address] [place] [address] Dr. Adrianne Johnson SPEC GRAVITY <=1.005 Abnormal 1.005-<=1. 025 [facility] Comment on above: Performed By: #### B MP #### [facility] [address] [address] [address] Adrianne Johnson UA PROTEIN Negative Normal NEGATIVE/ TRACE [facility] Comment on above: Performed By: #### B MP #### [facility] [address] [address] [address] Adrianne Johnson Urobilinogen Qn (U) 0.2 {Bob'U}/dL Normal 0.2 - 1. 0 [facility] Comment on above: Performed By: #### B MP #### [facility] [address] [address] [address] Adrianne Johnson WBC 5-10 Abnormal NONE SEEN [facility] Comment on above: Performed By: #### B MP #### [facility] [address] [place] [address] Dr. Adrianne Johnson URIC ACID SERUMon 01-13-2022 Urate [Mass/Vol] 4.6 mg/dL Normal 2.6-6.0 [facility] Comment on above: Performed By: #### R ENAL, URIC, MG #### [facility] [address] [address] [address] Adrianne Johnson URINE T PROTEIN CREAT RATIOo n 01-13-2022 Protein (U) [Mass/Vol] 19.9 mg/dL Critically high <=12.0 [facility] Comment on above: Performed By: #### F ERR, FETIBC #### [facility] [address] [address] [address] Adrianne Johnson UR PROT CREAT RAT 0.57 Normal [facility] Comment on above: Performed By: #### F ERR, FETIBC #### [facility] [address] [place] [address] Dr. Adrianne Johnson URINE CREAT 35.05 mg/dL Normal 20.00-300. 00 [facility] Comment on above: Performed By: #### F ERR, FETIBC #### [facility] [address] [place] [address] Dr. Adrianne Johnson Activated partial thrombopla stin time (aPTT) in platelet poor plasma by coagulation aon 10-19-2020 aPTT Coag (PPP) [Time] 28.5 s 25.1-36.5 [facility] Albumin [Mass/volume] in Ser um or Plasmaon 10-19-2020 Albumin [Mass/Vol] 3.1 g/dL 3.2-5.5 [facility] Basophils Auto (Bld) [#/Vol] on 10-19-2020 Basophils (Bld) [#/Vol] 0.1 10*3/uL 0.0-0.2 [facility] Basophils/100 WBC Auto (Bld) on 10-19-2020 Basophils/100 WBC (Bld) 1.1 % [facility] Blood hemoglobin measurement (mass/volume)on 10-19-2020 Hemoglobin (Bld) [Mass/Vol] 13.7 g/dL 11.8-15.4 [facility] Blood leukocytes automated c ount (number/volume)on 10-19-2020 WBC (Bld) [#/Vol] 8.2 10*3/uL 4.5-11.0 [facility] Creatinine and Glomerular fi ltration rate.predicted panel (S/P/Bld)on 10-19-2020 Creatinine [Mass/Vol] 0.91 mg/dL 0.44-1.03 [facility] Eosinophils Auto (Bld) [#/Vo l]on 10-19-2020 Eosinophils (Bld) [#/Vol] 0.0 10*3/uL 0.0-0.45 [facility] Eosinophils/100 WBC Auto (Bl d)on 10-19-2020 Eosinophils/100 WBC (Bld) 0.2 % [facility] Erythrocyte distribution wid th Auto (RBC) [Ratio]on 10-19-2020 Erythrocyte distribution width (RBC) [Ratio] 14.0 % 11.9-15.3 [facility] Estimated glomerular filtrat ion rate (GFR) non- Americanon 10-19-2020 GFR/1.73 sq M.predicted among non-blacks MDRD (S/P/Bld) [Vol rate/Area] > 60 mL/Min [facility] Globulin Calc (S) [Mass/Vol] on 10-19-2020 Globulin (S) [Mass/Vol] 2.8 g/dL [facility] Hematocrit Auto (Bld) [Volum e fraction]on 10-19-2020 Hematocrit (Bld) [Volume fraction] 41.1 % 34.0-46.4 [facility] - Coagulationon 0 10-19-2020 PT Coag (PPP) [Time] 12.6 s 9.0-12.9 [facility] - Hematology and Cell countson 10-19-2020 Nucleated RBC/100 WBC (Bld) [Ratio] 0.1 % 0-0.5 [facility] Lymphocytes Auto (Bld) [#/Vo l]on 10-19-2020 Lymphocytes (Bld) [#/Vol] 1.9 10*3/uL 1.00-4.8 [facility] Lymphocytes/100 WBC Auto (Bl d)on 10-19-2020 Lymphocytes/100 WBC (Bld) 23.2 % [facility] MCH Auto (RBC) [Entitic mass ]on 10-19-2020 MCH (RBC) [Entitic mass] 32.5 pg 24.7-34.3 [facility] MCHC Auto (RBC) [Mass/Vol]on 10-19-2020 MCHC (RBC) [Mass/Vol] 33.3 g/dL 32.0-35.0 [facility] MCV Auto (RBC) [Entitic vol] on 10-19-2020 MCV (RBC) [Entitic vol] 97.4 fL 80-100 [facility] Monocytes Auto (Bld) [#/Vol] on 10-19-2020 Monocytes (Bld) [#/Vol] 1.1 10*3/uL 0.0-0.8 [facility] Monocytes/100 WBC Auto (Bld) on 10-19-2020 Monocytes/100 WBC (Bld) 13.7 % [facility] Neutrophils Auto (Bld) [#/Vo l]on 10-19-2020 Neutrophils (Bld) [#/Vol] 5.0 10*3/uL 1.8-7.7 [facility] Neutrophils/100 WBC Auto (Bl d)on 10-19-2020 Neutrophils/100 WBC (Bld) 61.8 % [facility] No Panel Informationon 10-19 Estimated GFR () > 60 mL/Min [facility] Comment on above: GFR estimated refere nce range: According to KDOQI guidelines, <60 ml/min/1.73m2 is sufficient to diagnose a patient with chronic kidney disease. Pharmacy Creatinine Clearance (Chem N/A [facility] Platelet mean volume Auto (B ld) [Entitic vol]on 10-19-2020 Platelet mean volume (Bld) [Entitic vol] 6.5 fL 6.3-10.7 [facility] Platelet poor plasma interna tional normalized ratio (INR) by coagulation assay (relaton 10-19-2020 INR Coag (PPP) [Relative time] 1.1 {INR} [facility] Comment on above: INR Therapeutic Rang e [...] 10-19-2020 Platelets (Bld) [#/Vol] 290 10*3/uL 150-450 [facility] Protein [Mass/volume] in Ser um or Plasmaon 10-19-2020 Protein [Mass/Vol] 5.9 g/dL 6.1-7.9 [facility] RBC Auto (Bld) [#/Vol]on RBC (Bld) [#/Vol] 4.22 10*6/uL 3.60-5.00 [facility] Serum or plasma alanine machuca otransferase measurement without P-5'-P (enzymatic activion 10-19-2020 ALT No additional P-5'-P [Catalytic activity/Vol] 22 U/L 10-60 [facility] Serum or plasma albumin/glob ulin mass ratioon 10-19-2020 Albumin/Globulin [Mass ratio] 1.1 {ratio} [facility] Serum or plasma alkaline garima sphatase measurement (enzymatic activity/volume)on 10-19-2020 ALP [Catalytic activity/Vol] 53 U/L 32-92 [facility] Serum or plasma aspartate am inotransferase measurement (enzymatic activity/volume)on 10-19-2020 AST [Catalytic activity/Vol] 38 U/L 10-42 [facility] Serum or plasma calcium abdi urement (mass/volume)on 10-19-2020 Calcium [Mass/Vol] 8.8 mg/dL 8.2-10.2 [facility] Serum or plasma chloride maryjane surement (moles/volume)on 10-19-2020 Chloride [Moles/Vol] 104 mmol/L 95-114 [facility] Serum or plasma glucose abdi urement (mass/volume)on 10-19-2020 Glucose [Mass/Vol] 226 mg/dL 70-100 [facility] Comment on above: ADA recommended refe rence rangeRandom Glucose Reference Range is dependent on time and content of last meal. Glucose of more than 200 mg/dL in a nonstressed, ambulatory subject supports the diagnosis of Diabetes Mellitus. Serum or plasma potassium me asurement (moles/volume)on 10-19-2020 Potassium [Moles/Vol] 4.2 mmol/L 3.5-5.1 [facility] Serum or plasma sodium measu rement (moles/volume)on 10-19-2020 Sodium [Moles/Vol] 137 mmol/L 136-146 [facility] Serum or plasma total biliru bin measurement (mass/volume)on 10-19-2020 Bilirubin [Mass/Vol] 0.7 mg/dL 0.3-1.2 [facility] Serum or plasma total carbon dioxide measurement (moles/volume)on 10-19-2020 CO2 [Moles/Vol] 20.1 mmol/L 22.0-30.0 [facility] Serum or plasma urea nitroge n measurement (mass/volume)on 10-19-2020 Urea nitrogen [Mass/Vol] 18 mg/dL 9-23 [facility] Progress Noteon 05-24-2017 HIM IP Note OR Band Lining Bander Normal [facility] Cult,Bloodon 05-19-2017 Cult,Blood Specimen Description .BLOOD Special Requests LAC 10ML Culture NO GROWTH 6 DAYS Report Status FINAL 05/19/2017 Normal [facility] Comment on above: Performed By: #### B MP, CDP, LIVP, PT, PTT ####[address] [place] [address] Discharge Summaryon 05-18-19 18 HIM IP Note OR Band Lining Bander Normal [facility] Plan of Careon 05-18-2017 HIM IP Note OR Band Lining Bander Normal [facility] Progress Noteon 05-18-2017 HIM IP Note OR Band Lining Bander Normal [facility] HIM IP Note OR Band Lining Bander Normal [facility] HIM IP Note OR Band Lining Bander Normal [facility] HIM IP Note OR Band Lining Bander Normal [facility] Hemoglobin A1Con 05-17-2017 Glucose mass conc 146 mg/dL Normal [facility] Comment on above: Result Comment: The ADA and AACC recommend providing the estimated average glucose result to permit better patient understanding of their HBA1c result.[facility] [address] [place] [address] Performed By: #### C DP, GLYHGB ####[address] [place] [address] Hemoglobin A1c/Hemoglobin.total mass fraction (Bld) 6.7 % High 4.0-6.0 [facility] Comment on above: Performed By: #### C DP, GLYHGB ####[facility] [id number] [place] [address] Plan of Careon 05-17-2017 HIM IP Note OR Band Lining Bander Normal [facility] HIM IP Note OR Band Lining Bander Normal [facility] HIM IP Note OR Band Lining Bander Normal [facility] Progress Noteon 05-17-2017 HIM IP Note OR Band Lining Bander Normal [facility] HIM IP Note OR Band Lining Bander Normal [facility] HIM IP Note OR Band Lining Bander Normal [facility] HIM IP Note OR Band Lining Bander Normal [facility] HIM IP Note OR Band Lining Bander Normal [facility] HIM IP Note OR Band Lining Bander Normal [facility] HIM IP Note OR Band Lining Bander Normal [facility] CBC with Diffon 05-16-2017 Abs. Basophil 0.07 k/uL Normal 0.00-0.20 [facility] Comment on above: Performed By: #### C DP, GLYHGB ####[address] [address] Abs.Neutrophil (Seg) 9.04 k/uL High 1.50-8.10 [facility] Comment on above: Performed By: #### C DP, GLYHGB ####[address] [place] [address] Basophils/100 WBC Auto (Bld) 1 % Normal 0-2 [facility] Comment on above: Performed By: #### C DP, GLYHGB ####[address] [address] Eosinophils 0.21 10*3/uL Normal 0.00-0.44 [facility] Comment on above: Performed By: #### C DP, GLYHGB ####[address] [place] [address] Eosinophils/100 leukocytes 2 % Normal 1-4 [facility] Comment on above: Performed By: #### C DP, GLYHGB ####[facility] [id number] [place] [address] Erythrocyte distribution width Auto Ratio (RBC) 12.7 % Normal 11.8-14.4 [facility] Comment on above: Performed By: #### C DP, GLYHGB ####[address] [address] Erythrocytes (RBC) 4.23 10*6/uL Normal 3.95-5.11 [facility] Comment on above: Performed By: #### C DP, GLYHGB ####[address] [address] Granulocytes/100 WBC (Bld) 0.08 k/uL Normal 0.00-0.30 [facility] Comment on above: Result Comment: [address] [place] [address] Performed By: #### C DP, GLYHGB ####[address] [address] Hematocrit (HCT) 41.6 % Normal 36.3-47.1 [facility] Comment on above: Performed By: #### C DP, GLYHGB ####[address] [address] Hemoglobin mass conc (Bld) 13.1 g/dL Normal 11.9-15.1 [facility] Comment on above: Performed By: #### C DP, GLYHGB ####[address] [address] Immature granulocytes #/vol (Bld) 1 % High 0 [facility] Comment on above: Performed By: #### C DP, GLYHGB ####[address] [address] Lymphocytes 2.31 10*3/uL Normal 1.10-3.70 [facility] Comment on above: Performed By: #### C DP, GLYHGB ####[address] [address] Lymphocytes/100 leukocytes 18 % Low 24-43 [facility] Comment on above: Performed By: #### C DP, GLYHGB ####[address] [address] MCH 31.0 pg Normal 25.2-33.5 [facility] Comment on above: Performed By: #### C DP, GLYHGB ####[facility] [place] [address] MCHC mass conc (RBC) 31.5 g/dL Normal 28.4-34.8 [facility] Comment on above: Performed By: #### C DP, GLYHGB ####[address] [address] MCV 98.3 fL Normal 82.6-102.9 [facility] Comment on above: Performed By: #### C DP, GLYHGB ####[address] [address] Monocytes 1.20 10*3/uL Normal 0.10-1.20 [facility] Comment on above: Performed By: #### C DP, GLYHGB ####[address] [address] Monocytes/100 leukocytes 9 % Normal 3-12 [facility] Comment on above: Performed By: #### C DP, GLYHGB ####[address] [address] Neutrophil (Seg) 69 % High 36-65 [facility] Comment on above: Performed By: #### C DP, GLYHGB ####[address] [address] Platelet mean volume (PMV) 9.3 fL Normal 8.1-13.5 [facility] Comment on above: Performed By: #### C DP, GLYHGB ####[address] [address] Platelets 276 10*3/uL Normal 138-453 [facility] Comment on above: Performed By: #### C DP, GLYHGB ####[address] [address] WBC (Leukocytes) 12.9 10*3/uL High 3.5-11.3 [facility] Comment on above: Performed By: #### C DP, GLYHGB ####[facility] [address] [place] [address] Auto Diff Performed NOT REPORTED Normal [facility] Comment on above: Performed By: #### C DP, GLYHGB ####[facility] [id number] [place] [address] Erythrocyte morphology NOT REPORTED Normal [facility] Comment on above: Performed By: #### C DP, GLYHGB ####[facility] [id number] [place] [address] Platelets NOT REPORTED Normal [facility] Comment on above: Performed By: #### C DP, GLYHGB ####[facility] [id number] [place] [address] WBC Morphology NOT REPORTED Normal [facility] Comment on above: Performed By: #### C DP, GLYHGB ####[facility] [address] [place] [address] Plan of Careon 05-16-2017 HIM IP Note OR Band Lining Bander Normal [facility] HIM IP Note OR Band Lining Bander Normal [facility] HIM IP Note OR Band Lining Bander Normal [facility] HIM IP Note OR Band Lining Bander Normal [facility] Progress Noteon 05-16-2017 HIM IP Note OR Band Lining Bander Normal [facility] HIM IP Note OR Band Lining Bander Normal [facility] HIM IP Note OR Band Lining Bander Normal [facility] HIM IP Note OR Band Lining Bander Normal [facility] HIM IP Note OR Band Lining Bander Normal [facility] HIM IP Note OR Band Lining Bander Normal [facility] Basic Metabolic Profon 05-15 (cont.) Normal [facility] Comment on above: Result Comment: Aver age GFR for 50-59 years old: 93 mL/min/1.73sq mChronic Kidney Disease: <60 mL/min/1.73sq mKidney failure: <15 mL/min/1.73sq meGFR calculated using average adult body mass. Additional eGFR calculator available at:http://www.[employer]/multiple_crcl_2012.htmMenlo [facility] Hospital [address] [place] [address] Performed By: #### L ACWB ####[facility] [address] [place] [address] Anion gap 14 mmol/L Normal 9-17 [facility] Comment on above: Performed By: #### L ACWB ####[address] [address] Calcium 8.3 mg/dL Low 8.6-10.4 [facility] Comment on above: Performed By: #### L ACWB ####[address] [address] Chloride 100 mmol/L Normal 98-107 [facility] Comment on above: Performed By: #### L ACWB ####[address] [address] CO2 25 mmol/L Normal 20-31 [facility] Comment on above: Performed By: #### L ACWB ####[facility] [address] [place] [address] Creatinine 0.39 mg/dL Low 0.50-0.90 [facility] Comment on above: Performed By: #### L ACWB ####[address] [place] [address] eGFR (non-black) mL/min/{1.73_m2} Normal >60 [facility] Comment on above: Performed By: #### L ACWB ####[address] [place] [address] Glucose mass conc 165 mg/dL High 70-99 [facility] Comment on above: Performed By: #### L ACWB ####[address] [place] [address] Potassium molar conc 3.6 mmol/L Low 3.7-5.3 [facility] Comment on above: Performed By: #### L ACWB ####[address] [address] Sodium 139 mmol/L Normal 135-144 [facility] Comment on above: Performed By: #### L ACWB ####[address] [address] Urea nitrogen 15 mg/dL Normal 6-20 [facility] Comment on above: Performed By: #### L ACWB ####[address] [address] BUN/CRE Ratio NOT REPORTED Normal - [facility] Comment on above: Performed By: #### L ACWB ####[address] [address] Staging: NOT REPORTED Normal [facility] Comment on above: Performed By: #### L ACWB ####[address] [place] [address] CBC with Diffon 05-15-2017 Abs. Basophil 0.07 k/uL Normal 0.00-0.20 [facility] Comment on above: Performed By: #### L ACWB ####[address] [address] Abs.Neutrophil (Seg) 9.54 k/uL High 1.50-8.10 [facility] Comment on above: Performed By: #### L ACWB ####[facility] [place] [address] Basophils/100 WBC Auto (Bld) 1 % Normal 0-2 [facility] Comment on above: Performed By: #### L ACWB ####[address] [place] [address] Eosinophils 0.14 10*3/uL Normal 0.00-0.44 [facility] Comment on above: Performed By: #### L ACWB ####[address] [address] Eosinophils/100 leukocytes 1 % Normal 1-4 [facility] Comment on above: Performed By: #### L ACWB ####[address] [address] Erythrocyte distribution width Auto Ratio (RBC) 12.9 % Normal 11.8-14.4 [facility] Comment on above: Performed By: #### L ACWB ####[address] [address] Erythrocytes (RBC) 4.04 10*6/uL Normal 3.95-5.11 [facility] Comment on above: Performed By: #### L ACWB ####[address] [address] Granulocytes/100 WBC (Bld) 0.09 k/uL Normal 0.00-0.30 [facility] Comment on above: Result Comment: [facility] [address] [place] [address] Performed By: #### L ACWB ####[facility] [place] [address] Hematocrit (HCT) 39.4 % Normal 36.3-47.1 [facility] Comment on above: Performed By: #### L ACWB ####[facility] [place] [address] Hemoglobin mass conc (Bld) 12.4 g/dL Normal 11.9-15.1 [facility] Comment on above: Performed By: #### L ACWB ####[address] [address] Immature granulocytes #/vol (Bld) 1 % High 0 [facility] Comment on above: Performed By: #### L ACWB ####[address] [address] Lymphocytes 1.89 10*3/uL Normal 1.10-3.70 [facility] Comment on above: Performed By: #### L ACWB ####[address] [address] Lymphocytes/100 leukocytes 14 % Low 24-43 [facility] Comment on above: Performed By: #### L ACWB ####[facility] [place] [address] MCH 30.7 pg Normal 25.2-33.5 [facility] Comment on above: Performed By: #### L ACWB ####[facility] [place] [address] MCHC mass conc (RBC) 31.5 g/dL Normal 28.4-34.8 [facility] Comment on above: Performed By: #### L ACWB ####[facility] [place] [address] MCV 97.5 fL Normal 82.6-102.9 [facility] Comment on above: Performed By: #### L ACWB ####[facility] [place] [address] Monocytes 1.45 10*3/uL High 0.10-1.20 [facility] Comment on above: Performed By: #### L ACWB ####[address] [address] Monocytes/100 leukocytes 11 % Normal 3-12 [facility] Comment on above: Performed By: #### L ACWB ####[address] [address] Neutrophil (Seg) 72 % High 36-65 [facility] Comment on above: Performed By: #### L ACWB ####[address] [address] Platelet mean volume (PMV) 9.1 fL Normal 8.1-13.5 [facility] Comment on above: Performed By: #### L ACWB ####[address] [address] Platelets 218 10*3/uL Normal 138-453 [facility] Comment on above: Performed By: #### L ACWB ####[address] [address] WBC (Leukocytes) 13.2 10*3/uL High 3.5-11.3 [facility] Comment on above: Performed By: #### L ACWB ####[address] [address] Auto Diff Performed NOT REPORTED Normal [facility] Comment on above: Performed By: #### L ACWB ####[address] [address] Erythrocyte morphology NOT REPORTED Normal [facility] Comment on above: Performed By: #### L ACWB ####[address] [address] Platelets NOT REPORTED Normal [facility] Comment on above: Performed By: #### L ACWB ####[address] [place] [address] WBC Morphology NOT REPORTED Normal [facility] Comment on above: Performed By: #### L ACWB ####[address] [place] [address] CTA CHEST WITH CONTRASTon CTA CHEST WITH [...] by:Jayden Jarvis MD05/15/17Edited Result - FINAL Normal [facility] Consulton 05-15-2017 HIM IP Note OR Band Lining Bander Normal [facility] Cult,Bloodon 05-15-2017 Cult,Blood Specimen Description .BLOOD Special Requests NOT REPORTED Culture NO SPECIMEN RECEIVED ERICK GALE NOTIFIED 05/14/16 1430 Report Status FINAL 05/15/2017 Normal [facility] Comment on above: Performed By: #### L ACWB ####[facility] [place] [address] Hgb/Hcton 05-15-2017 Hematocrit (HCT) 40.5 % Normal 36.3-47.1 [facility] Comment on above: Result Comment: [employer] [address] [place] [address] Performed By: #### L ACWB ####[facility] [place] [address] Hemoglobin mass conc (Bld) 12.8 g/dL Normal 11.9-15.1 [facility] Comment on above: Performed By: #### L ACWB ####[facility] [place] [address] Plan of Careon 05-15-2017 HIM IP Note OR Band Lining Bander Normal [facility] HIM IP Note OR Band Lining Bander Normal [facility] HIM IP Note OR Band Lining Bander Normal [facility] Progress Noteon 05-15-2017 HIM IP Note OR Band Lining Bander Normal [facility] HIM IP Note OR Band Lining Bander Normal [facility] HIM IP Note OR Band Lining Bander Normal [facility] HIM IP Note OR Band Lining Bander Normal [facility] Basic Metabolic Profon 05-14 Anion gap 14 mmol/L Normal 9-17 [facility] Comment on above: Performed By: #### B MP, CDP, LIVP, PT, PTT ####[address] [place] [address] Calcium 8.2 mg/dL Low 8.6-10.4 [facility] Comment on above: Performed By: #### B MP, CDP, LIVP, PT, PTT ####[address] [address] Chloride 100 mmol/L Normal 98-107 [facility] Comment on above: Performed By: #### B MP, CDP, LIVP, PT, PTT ####[address] [place] [address] CO2 23 mmol/L Normal 20-31 [facility] Comment on above: Performed By: #### B MP, CDP, LIVP, PT, PTT ####[address] [address] Creatinine 0.62 mg/dL Normal 0.50-0.90 [facility] Comment on above: Performed By: #### B MP, CDP, LIVP, PT, PTT ####[address] [place] [address] eGFR (non-black) mL/min/{1.73_m2} Normal >60 [facility] Comment on above: Performed By: #### B MP, CDP, LIVP, PT, PTT ####[address] [place] [address] Glucose mass conc 189 mg/dL High 70-99 [facility] Comment on above: Performed By: #### B MP, CDP, LIVP, PT, PTT ####[address] [place] [address] Potassium molar conc 4.2 mmol/L Normal 3.7-5.3 [facility] Comment on above: Performed By: #### B MP, CDP, LIVP, PT, PTT ####[address] [address] Sodium 137 mmol/L Normal 135-144 [facility] Comment on above: Performed By: #### B MP, CDP, LIVP, PT, PTT ####[address] [address] Urea nitrogen 17 mg/dL Normal 6-20 [facility] Comment on above: Performed By: #### B MP, CDP, LIVP, PT, PTT ####[address] [address] (cont.) Normal [facility] Comment on above: Result Comment: Aver age GFR for 50-59 years old: 93 mL/min/1.73sq mChronic Kidney Disease: <60 mL/min/1.73sq mKidney failure: <15 mL/min/1.73sq meGFR calculated using average adult body mass. Additional eGFR calculator available at:http://www.[employer]/multiple_crcl_2012.htm[address] [address] Performed By: #### B MP, CDP, LIVP, PT, PTT ####[address] [address] BUN/CRE Ratio NOT REPORTED Normal 9-20 [facility] Comment on above: Performed By: #### B MP, CDP, LIVP, PT, PTT ####[address] [address] Staging: NOT REPORTED Normal [facility] Comment on above: Performed By: #### B MP, CDP, LIVP, PT, PTT ####[address] [address] Anion gap 15 mmol/L Normal 9-17 [facility] Comment on above: Performed By: #### B MP, CDP, LIVP, PT, PTT ####[facility] [place] [address] Calcium 8.1 mg/dL Low 8.6-10.4 [facility] Comment on above: Performed By: #### B MP, CDP, LIVP, PT, PTT ####[address] [address] Chloride 99 mmol/L Normal 98-107 [facility] Comment on above: Performed By: #### B MP, CDP, LIVP, PT, PTT ####[address] [address] CO2 22 mmol/L Normal 20-31 [facility] Comment on above: Performed By: #### B MP, CDP, LIVP, PT, PTT ####[facility] [place] [address] Creatinine 0.67 mg/dL Normal 0.50-0.90 [facility] Comment on above: Performed By: #### B MP, CDP, LIVP, PT, PTT ####[facility] [place] [address] eGFR (non-black) mL/min/{1.73_m2} Normal >60 [facility] Comment on above: Performed By: #### B MP, CDP, LIVP, PT, PTT ####[address] [place] [address] Glucose mass conc 202 mg/dL High 70-99 [facility] Comment on above: Performed By: #### B MP, CDP, LIVP, PT, PTT ####[facility] [place] [address] Potassium molar conc 4.6 mmol/L Normal 3.7-5.3 [facility] Comment on above: Performed By: #### B MP, CDP, LIVP, PT, PTT ####[address] [address] Sodium 136 mmol/L Normal 135-144 [facility] Comment on above: Performed By: #### B MP, CDP, LIVP, PT, PTT ####[address] [address] Urea nitrogen 17 mg/dL Normal 6-20 [facility] Comment on above: Performed By: #### B MP, CDP, LIVP, PT, PTT ####[address] [address] (cont.) Normal [facility] Comment on above: Result Comment: Aver age GFR for 50-59 years old: 93 mL/min/1.73sq mChronic Kidney Disease: <60 mL/min/1.73sq mKidney failure: <15 mL/min/1.73sq meGFR calculated using average adult body mass. Additional eGFR calculator available at:http://www.[employer]/multiple_crcl_2012.htm[address] [place] [address] Performed By: #### B MP, CDP, LIVP, PT, PTT ####[address] [address] BUN/CRE Ratio NOT REPORTED Normal 9-20 [facility] Comment on above: Performed By: #### B MP, CDP, LIVP, PT, PTT ####[address] [address] Staging: NOT REPORTED Normal [facility] Comment on above: Performed By: #### B MP, CDP, LIVP, PT, PTT ####[address] [address] CBC with Diffon 05-14-2017 Abs. Basophil 0.00 k/uL Normal 0.0-0.2 [facility] Comment on above: Performed By: #### B MP, CDP, LIVP, PT, PTT ####[address] [address] Abs.Neutrophil (Seg) 10.52 k/uL High 1.8-7.7 [facility] Comment on above: Performed By: #### B MP, CDP, LIVP, PT, PTT ####[address] [address] Basophils/100 WBC Auto (Bld) 0 % Normal 0-2 [facility] Comment on above: Performed By: #### B MP, CDP, LIVP, PT, PTT ####[address] [address] Blood morphology Normal Normal [facility] Comment on above: Result Comment: [address] [place] [address] Performed By: #### B MP, CDP, LIVP, PT, PTT ####[address] [address] Eosinophils 0.27 10*3/uL Normal 0.0-0.4 [facility] Comment on above: Performed By: #### B MP, CDP, LIVP, PT, PTT ####[address] [address] Eosinophils/100 leukocytes 2 % Normal 1-4 [facility] Comment on above: Performed By: #### B MP, CDP, LIVP, PT, PTT ####[address] [address] Granulocytes/100 WBC (Bld) 0.00 k/uL Normal 0.00-0.30 [facility] Comment on above: Performed By: #### B MP, CDP, LIVP, PT, PTT ####[address] [address] Immature granulocytes #/vol (Bld) 0 % Normal 0 [facility] Comment on above: Performed By: #### B MP, CDP, LIVP, PT, PTT ####[address] [address] Lymphocytes 1.49 10*3/uL Normal 1.0-4.8 [facility] Comment on above: Performed By: #### B MP, CDP, LIVP, PT, PTT ####[address] [address] Lymphocytes/100 leukocytes 11 % Low 24-44 [facility] Comment on above: Performed By: #### B MP, CDP, LIVP, PT, PTT ####[address] [address] Monocytes 1.22 10*3/uL High 0.1-0.8 [facility] Comment on above: Performed By: #### B MP, CDP, LIVP, PT, PTT ####[address] [address] Monocytes/100 leukocytes 9 % High 1-7 [facility] Comment on above: Performed By: #### B MP, CDP, LIVP, PT, PTT ####[address] [address] Neutrophil (Seg) 78 % High 36-66 [facility] Comment on above: Performed By: #### B MP, CDP, LIVP, PT, PTT ####[address] [address] Erythrocyte distribution width Auto Ratio (RBC) 13.0 % Normal 11.8-14.4 [facility] Comment on above: Performed By: #### B MP, CDP, LIVP, PT, PTT ####[address] [address] Erythrocytes (RBC) 4.32 10*6/uL Normal 3.95-5.11 [facility] Comment on above: Performed By: #### B MP, CDP, LIVP, PT, PTT ####[address] [address] Hematocrit (HCT) 41.8 % Normal 36.3-47.1 [facility] Comment on above: Performed By: #### B MP, CDP, LIVP, PT, PTT ####[address] [address] Hemoglobin mass conc (Bld) 13.4 g/dL Normal 11.9-15.1 [facility] Comment on above: Performed By: #### B MP, CDP, LIVP, PT, PTT ####[address] [address] MCH 31.0 pg Normal 25.2-33.5 [facility] Comment on above: Performed By: #### B MP, CDP, LIVP, PT, PTT ####[address] [address] MCHC mass conc (RBC) 32.1 g/dL Normal 28.4-34.8 [facility] Comment on above: Performed By: #### B MP, CDP, LIVP, PT, PTT ####[address] [address] MCV 96.8 fL Normal 82.6-102.9 [facility] Comment on above: Performed By: #### B MP, CDP, LIVP, PT, PTT ####[address] [address] Platelet mean volume (PMV) 10.1 fL Normal 8.1-13.5 [facility] Comment on above: Performed By: #### B MP, CDP, LIVP, PT, PTT ####[address] [address] Platelets 194 10*3/uL Normal 138-453 [facility] Comment on above: Performed By: #### B MP, CDP, LIVP, PT, PTT ####[address] [address] WBC (Leukocytes) 13.5 10*3/uL High 3.5-11.3 [facility] Comment on above: Performed By: #### B MP, CDP, LIVP, PT, PTT ####[address] [address] Auto Diff Performed NOT REPORTED Normal [facility] Comment on above: Performed By: #### B MP, CDP, LIVP, PT, PTT ####[address] [address] Erythrocyte morphology NOT REPORTED Normal [facility] Comment on above: Performed By: #### B MP, CDP, LIVP, PT, PTT ####[address] [address] Platelets NOT REPORTED Normal [facility] Comment on above: Performed By: #### B MP, CDP, LIVP, PT, PTT ####[address] [address] WBC Morphology NOT REPORTED Normal [facility] Comment on above: Performed By: #### B MP, CDP, LIVP, PT, PTT ####[address] [address] Abs. Basophil 0.00 k/uL Normal 0.0-0.2 [facility] Comment on above: Performed By: #### B MP, CDP, LIVP, PT, PTT ####[address] [address] Abs.Neutrophil (Seg) 14.18 k/uL High 1.8-7.7 [facility] Comment on above: Performed By: #### B MP, CDP, LIVP, PT, PTT ####[address] [address] Basophils/100 WBC Auto (Bld) 0 % Normal 0-2 [facility] Comment on above: Performed By: #### B MP, CDP, LIVP, PT, PTT ####[address] [address] Blood morphology Normal Normal [facility] Comment on above: Result Comment: [address] [address] Performed By: #### B MP, CDP, LIVP, PT, PTT ####[address] [address] Eosinophils 0.00 10*3/uL Normal 0.0-0.4 [facility] Comment on above: Performed By: #### B MP, CDP, LIVP, PT, PTT ####[address] [address] Eosinophils/100 leukocytes 0 % Low 1-4 [facility] Comment on above: Performed By: #### B MP, CDP, LIVP, PT, PTT ####[address] [address] Granulocytes/100 WBC (Bld) 0.00 k/uL Normal 0.00-0.30 [facility] Comment on above: Performed By: #### B MP, CDP, LIVP, PT, PTT ####[address] [address] Immature granulocytes #/vol (Bld) 0 % Normal 0 [facility] Comment on above: Performed By: #### B MP, CDP, LIVP, PT, PTT ####[address] [address] Lymphocytes 0.98 10*3/uL Low 1.0-4.8 [facility] Comment on above: Performed By: #### B MP, CDP, LIVP, PT, PTT ####[address] [address] Lymphocytes/100 leukocytes 6 % Low 24-44 [facility] Comment on above: Performed By: #### B MP, CDP, LIVP, PT, PTT ####[address] [address] Monocytes 1.14 10*3/uL High 0.1-0.8 [facility] Comment on above: Performed By: #### B MP, CDP, LIVP, PT, PTT ####[address] [address] Monocytes/100 leukocytes 7 % Normal 1-7 [facility] Comment on above: Performed By: #### B MP, CDP, LIVP, PT, PTT ####[address] [address] Neutrophil (Seg) 87 % High 36-66 [facility] Comment on above: Performed By: #### B MP, CDP, LIVP, PT, PTT ####[address] [address] Erythrocyte distribution width Auto Ratio (RBC) 13.0 % Normal 11.8-14.4 [facility] Comment on above: Performed By: #### B MP, CDP, LIVP, PT, PTT ####[address] [address] Erythrocytes (RBC) 4.54 10*6/uL Normal 3.95-5.11 [facility] Comment on above: Performed By: #### B MP, CDP, LIVP, PT, PTT ####[address] [address] Hematocrit (HCT) 43.8 % Normal 36.3-47.1 [facility] Comment on above: Performed By: #### B MP, CDP, LIVP, PT, PTT ####[address] [address] Hemoglobin mass conc (Bld) 14.1 g/dL Normal 11.9-15.1 [facility] Comment on above: Performed By: #### B MP, CDP, LIVP, PT, PTT ####[address] [address] MCH 31.1 pg Normal 25.2-33.5 [facility] Comment on above: Performed By: #### B MP, CDP, LIVP, PT, PTT ####[address] [address] MCHC mass conc (RBC) 32.2 g/dL Normal 28.4-34.8 [facility] Comment on above: Performed By: #### B MP, CDP, LIVP, PT, PTT ####[address] [address] MCV 96.5 fL Normal 82.6-102.9 [facility] Comment on above: Performed By: #### B MP, CDP, LIVP, PT, PTT ####[address] [address] Platelet mean volume (PMV) 10.7 fL Normal 8.1-13.5 [facility] Comment on above: Performed By: #### B MP, CDP, LIVP, PT, PTT ####[address] [address] Platelets 192 10*3/uL Normal 138-453 [facility] Comment on above: Performed By: #### B MP, CDP, LIVP, PT, PTT ####[address] [address] WBC (Leukocytes) 16.3 10*3/uL High 3.5-11.3 [facility] Comment on above: Performed By: #### B MP, CDP, LIVP, PT, PTT ####[address] [address] Auto Diff Performed NOT REPORTED Normal [facility] Comment on above: Performed By: #### B MP, CDP, LIVP, PT, PTT ####[address] [address] Erythrocyte morphology NOT REPORTED Normal [facility] Comment on above: Performed By: #### B MP, CDP, LIVP, PT, PTT ####[address] [address] Platelets NOT REPORTED Normal [facility] Comment on above: Performed By: #### B MP, CDP, LIVP, PT, PTT ####[address] [address] WBC Morphology NOT REPORTED Normal [facility] Comment on above: Performed By: #### B MP, CDP, LIVP, PT, PTT ####[address] [address] Cult,Urineon 05-14-2017 Cult,Urine Specimen Description .CATHETERIZED URINE THOMSON SPECIMEN 1ST INSERTION Special Requests NOT REPORTED Culture NO GROWTH Report Status FINAL 05/14/2017 Normal [facility] Comment on above: Performed By: #### B MP, CDP, LIVP, PT, PTT ####[address] [address] Cult,Urine Specimen Description .BLADDER Special Requests NOT REPORTED Culture DUPLICATE ORDER Report Status FINAL 05/14/2017 Normal [facility] Comment on above: Performed By: #### B MP, CDP, LIVP, PT, PTT ####[address] [address] Lactic Acid,Whole Blon 05-14 Lactic Acid,Whole Bl 1.0 mmol/L Normal 0.7-2.1 [facility] Comment on above: Result Comment: [facility] [employer] [address] [place] [id number] Performed By: #### B MP, CDP, LIVP, PT, PTT ####[address] [address] MRSA, DNA, Nasalon 8 MRSA, DNA, Nasal NEGATIVE: MRSA DNA n ot detected by nucleic acid amplification. Normal NMRSAA [facility] Comment on above: Result Comment: Resu lts should be used as an adjunct to nosocomial control efforts to identify patients needing enhanced precautions.The test is not intended to identify patients with staphylococcal infections. Results should not be used to guide or monitor treatment for MRSA infections.[facility] [employer] [address] [place] [address] Performed By: #### B MP, CDP, LIVP, PT, PTT ####[address] [address] Magnesiumon 05-14-2017 Magnesium 2.1 mg/dL Normal 1.6-2.6 [facility] Comment on above: Result Comment: [facility] [employer] [address] [place] [address] Performed By: #### B MP, CDP, LIVP, PT, PTT ####[address] [address] Magnesium 1.6 mg/dL Normal 1.6-2.6 [facility] Comment on above: Result Comment: [facility] [employer] [address] [place] [address] Performed By: #### B MP, CDP, LIVP, PT, PTT ####[facility] [place] [address] Phosphorus, Inorg.on 018 Phosphorus, Inorg. 3.7 mg/dL Normal 2.6-4.5 [facility] Comment on above: Result Comment: [employer] [address] [place] [address] Performed By: #### B MP, CDP, LIVP, PT, PTT ####[facility] [place] [address] Plan of Careon 05-14-2017 HIM IP Note OR Band Lining Bander Normal [facility] HIM IP Note OR Band Lining Bander Normal [facility] HIM IP Note OR Band Lining Bander Normal [facility] Progress Noteon 05-14-2017 HIM IP Note OR Band Lining Bander Normal [facility] HIM IP Note OR Band Lining Bander Normal [facility] HIM IP Note OR Band Lining Bander Normal [facility] HIM IP Note OR Band Lining Bander Normal [facility] HIM IP Note OR Band Lining Bander Normal [facility] HIM IP Note OR Band Lining Bander Normal [facility] HIM IP Note OR Band Lining Bander Normal [facility] Troponinon 05-14-2017 Troponin I.cardiac mass conc Normal [facility] Comment on above: Result Comment: Refe rence Range: <0.03 Within reference range. 0.03-0.09 Possible myocardial damage.Repeat at appropriate intervals to rule out chronic elevation. >= 0.10 Indicative of myocardial damage.Patients with high levels of Biotin oral intake (i.e >5mg/day) may have falsely decreased Troponin T levels. Samples collected within 8 hours of biotin intake may require additional information for diagnosis.[facility] [address] [place] [id number] Performed By: #### B MP, CDP, LIVP, PT, PTT ####[facility] [place] [address] Troponin T.cardiac mass conc ug/L Normal <0.03 [facility] Comment on above: Result Comment: Trop onin T results cannot be compared to Troponin-I results. Performed By: #### B MP, CDP, LIVP, PT, PTT ####[address] [address] Troponin I.cardiac mass conc Normal [facility] Comment on above: Result Comment: Refe rence Range: <0.03 Within reference range. 0.03-0.09 Possible myocardial damage.Repeat at appropriate intervals to rule out chronic elevation. >= 0.10 Indicative of myocardial damage.Patients with high levels of Biotin oral intake (i.e >5mg/day) may have falsely decreased Troponin T levels. Samples collected within 8 hours of biotin intake may require additional information for diagnosis.[facility] [employer] [facility] [place] [address] Performed By: #### B MP, CDP, LIVP, PT, PTT ####[facility] [address] [place] [address] Troponin T.cardiac mass conc ug/L Normal <0.03 [facility] Comment on above: Result Comment: Trop onin T results cannot be compared to Troponin-I results. Performed By: #### B MP, CDP, LIVP, PT, PTT ####[address] [address] XR CHEST PORTABLEon 05-14-19 18 XR CHEST [...] by:SUMAN Wickigned by:Arash Cheng MD05/14/18Final result Normal [facility] APTTon 05-13-2017 aPTT 24.7 s Normal 21.3-31.3 [facility] Comment on above: Result Comment: [address] [address] Performed By: #### B MP, CDP, LIVP, PT, PTT ####[address] [address] Basic Metabolic Profon 05-13 (cont.) Normal [facility] Comment on above: Result Comment: Aver age GFR for 50-59 years old: 93 mL/min/1.73sq mChronic Kidney Disease: <60 mL/min/1.73sq mKidney failure: <15 mL/min/1.73sq meGFR calculated using average adult body mass. Additional eGFR calculator available at:http://[email or web address].Viddler/multiple_crcl_2012.htmThomas Ville [id number] [place] [address] Performed By: #### B MP, CDP, LIVP, PT, PTT ####[address] [address] Anion gap 14 mmol/L Normal 9-17 [facility] Comment on above: Performed By: #### B MP, CDP, LIVP, PT, PTT ####[address] [address] Calcium 8.9 mg/dL Normal 8.6-10.4 [facility] Comment on above: Performed By: #### B MP, CDP, LIVP, PT, PTT ####[address] [address] Chloride 94 mmol/L Low 98-107 [facility] Comment on above: Performed By: #### B MP, CDP, LIVP, PT, PTT ####[facility] [place] [address] CO2 22 mmol/L Normal 20-31 [facility] Comment on above: Performed By: #### B MP, CDP, LIVP, PT, PTT ####[facility] [place] [address] Creatinine 0.72 mg/dL Normal 0.50-0.90 [facility] Comment on above: Performed By: #### B MP, CDP, LIVP, PT, PTT ####[address] [address] eGFR (non-black) mL/min/{1.73_m2} Normal >60 [facility] Comment on above: Performed By: #### B MP, CDP, LIVP, PT, PTT ####[address] [address] Glucose mass conc 163 mg/dL High 70-99 [facility] Comment on above: Performed By: #### B MP, CDP, LIVP, PT, PTT ####[facility] [place] [address] Potassium molar conc 4.3 mmol/L Normal 3.7-5.3 [facility] Comment on above: Performed By: #### B MP, CDP, LIVP, PT, PTT ####[facility] [address] [place] [address] Sodium 130 mmol/L Low 135-144 [facility] Comment on above: Performed By: #### B MP, CDP, LIVP, PT, PTT ####[facility] [address] [place] [address] Urea nitrogen 18 mg/dL Normal 6-20 [facility] Comment on above: Performed By: #### B MP, CDP, LIVP, PT, PTT ####[address] [address] BUN/CRE Ratio NOT REPORTED Normal 01-19 [facility] Comment on above: Performed By: #### B MP, CDP, LIVP, PT, PTT ####[address] [address] Staging: NOT REPORTED Normal [facility] Comment on above: Performed By: #### B MP, CDP, LIVP, PT, PTT ####[address] [address] CBC with Diffon 05-13-2017 Abs. Basophil 0.00 k/uL Normal 0.0-0.2 [facility] Comment on above: Performed By: #### B MP, CDP, LIVP, PT, PTT ####[address] [address] Abs.Neutrophil (Seg) 12.71 k/uL High 1.8-7.7 [facility] Comment on above: Performed By: #### B MP, CDP, LIVP, PT, PTT ####[address] [address] Basophils/100 WBC Auto (Bld) 0 % Normal 0-2 [facility] Comment on above: Performed By: #### B MP, CDP, LIVP, PT, PTT ####[address] [address] Blood morphology Normal Normal [facility] Comment on above: Result Comment: [address] [address] Performed By: #### B MP, CDP, LIVP, PT, PTT ####[address] [address] Eosinophils 0.15 10*3/uL Normal 0.0-0.4 [facility] Comment on above: Performed By: #### B MP, CDP, LIVP, PT, PTT ####[address] [address] Eosinophils/100 leukocytes 1 % Normal 1-4 [facility] Comment on above: Performed By: #### B MP, CDP, LIVP, PT, PTT ####[address] [address] Granulocytes/100 WBC (Bld) 0.00 k/uL Normal 0.00-0.30 [facility] Comment on above: Performed By: #### B MP, CDP, LIVP, PT, PTT ####[address] [address] Immature granulocytes #/vol (Bld) 0 % Normal 0 [facility] Comment on above: Performed By: #### B MP, CDP, LIVP, PT, PTT ####[address] [address] Lymphocytes 1.22 10*3/uL Normal 1.0-4.8 [facility] Comment on above: Performed By: #### B MP, CDP, LIVP, PT, PTT ####[address] [address] Lymphocytes/100 leukocytes 8 % Low 24-44 [facility] Comment on above: Performed By: #### B MP, CDP, LIVP, PT, PTT ####[address] [address] Monocytes 1.22 10*3/uL High 0.1-0.8 [facility] Comment on above: Performed By: #### B MP, CDP, LIVP, PT, PTT ####[address] [address] Monocytes/100 leukocytes 8 % High 1-7 [facility] Comment on above: Performed By: #### B MP, CDP, LIVP, PT, PTT ####[address] [address] Neutrophil (Seg) 83 % High 36-66 [facility] Comment on above: Performed By: #### B MP, CDP, LIVP, PT, PTT ####[address] [address] Erythrocyte distribution width Auto Ratio (RBC) 13.2 % Normal 11.8-14.4 [facility] Comment on above: Performed By: #### B MP, CDP, LIVP, PT, PTT ####[address] [address] Erythrocytes (RBC) 4.61 10*6/uL Normal 3.95-5.11 [facility] Comment on above: Performed By: #### B MP, CDP, LIVP, PT, PTT ####[address] [address] Hematocrit (HCT) 44.4 % Normal 36.3-47.1 [facility] Comment on above: Performed By: #### B MP, CDP, LIVP, PT, PTT ####[address] [address] Hemoglobin mass conc (Bld) 14.3 g/dL Normal 11.9-15.1 [facility] Comment on above: Performed By: #### B MP, CDP, LIVP, PT, PTT ####[address] [address] MCH 31.0 pg Normal 25.2-33.5 [facility] Comment on above: Performed By: #### B MP, CDP, LIVP, PT, PTT ####[address] [address] MCHC mass conc (RBC) 32.2 g/dL Normal 28.4-34.8 [facility] Comment on above: Performed By: #### B MP, CDP, LIVP, PT, PTT ####[address] [address] MCV 96.3 fL Normal 82.6-102.9 [facility] Comment on above: Performed By: #### B MP, CDP, LIVP, PT, PTT ####[address] [address] Platelet mean volume (PMV) 10.1 fL Normal 8.1-13.5 [facility] Comment on above: Performed By: #### B MP, CDP, LIVP, PT, PTT ####[address] [address] Platelets 195 10*3/uL Normal 138-453 [facility] Comment on above: Performed By: #### B MP, CDP, LIVP, PT, PTT ####[address] [address] WBC (Leukocytes) 15.3 10*3/uL High 3.5-11.3 [facility] Comment on above: Performed By: #### B MP, CDP, LIVP, PT, PTT ####[address] [address] Auto Diff Performed NOT REPORTED Normal [facility] Comment on above: Performed By: #### B MP, CDP, LIVP, PT, PTT ####[address] [address] Erythrocyte morphology NOT REPORTED Normal [facility] Comment on above: Performed By: #### B MP, CDP, LIVP, PT, PTT ####[address] [address] Platelets NOT REPORTED Normal [facility] Comment on above: Performed By: #### B MP, CDP, LIVP, PT, PTT ####[address] [address] WBC Morphology NOT REPORTED Normal [facility] Comment on above: Performed By: #### B MP, CDP, LIVP, PT, PTT ####[address] [address] Consulton 05-13-2017 HIM IP Note OR Band Lining Bander Normal [facility] ED Noteon 05-13-2017 HIM IP Note OR Band Lining Bander Normal [facility] HIM IP Note OR Band Lining Bander Normal [facility] HIM IP Note OR Band Lining Bander Normal [facility] HIM IP Note OR Band Lining Bander Normal [facility] HIM IP Note OR Band Lining Bander Normal [facility] HIM IP Note OR Band Lining Bander Normal [facility] HIM IP Note OR Band Lining Bander Normal [facility] HIM IP Note OR Band Lining Bander Normal [facility] HIM IP Note OR Band Lining Bander Normal [facility] HIM IP Note OR Band Lining Bander Normal [facility] History and Physicalon 05-13 HIM IP Note OR Band Lining Bander Normal [facility] HIM IP Note OR Band Lining Bander Normal [facility] Lactic Acid,Whole Blon 05-13 Lactic Acid,Whole Bl 1.6 mmol/L Normal 0.7-2.1 [facility] Comment on above: Result Comment: [facility] [employer] [facility] [place] [address] Performed By: #### L ACWB ####[address] [place] [address] Liver Profileon 05-13-2017 Alanine aminotransferase (ALT) 20 U/L Normal 5-33 [facility] Comment on above: Performed By: #### B MP, CDP, LIVP, PT, PTT ####[address] [address] Albumin 3.5 g/dL Normal 3.5-5.2 [facility] Comment on above: Performed By: #### B MP, CDP, LIVP, PT, PTT ####[address] [address] Albumin/Globulin Ratio 1.1 {ratio} Normal 1.0-2.5 [facility] Comment on above: Result Comment: [address] [place] [address] Performed By: #### B MP, CDP, LIVP, PT, PTT ####[address] [address] Alkaline Phos 80 U/L Normal 35-104 [facility] Comment on above: Performed By: #### B MP, CDP, LIVP, PT, PTT ####[address] [address] Aspartate aminotransferase (AST) 18 U/L Normal <32 [facility] Comment on above: Performed By: #### B MP, CDP, LIVP, PT, PTT ####[address] [address] Bilirubin (direct) 0.33 mg/dL High <0.31 [facility] Comment on above: Performed By: #### B MP, CDP, LIVP, PT, PTT ####[address] [place] [address] Bilirubin Ql (U) 0.87 mg/dL Normal 0.3-1.2 [facility] Comment on above: Performed By: #### B MP, CDP, LIVP, PT, PTT ####[address] [address] Bilirubin, Indirect 0.54 mg/dL Normal 0.00-1.00 [facility] Comment on above: Performed By: #### B MP, CDP, LIVP, PT, PTT ####[facility] [address] [place] [address] Protein 6.7 g/dL Normal 6.4-8.3 [facility] Comment on above: Performed By: #### B MP, CDP, LIVP, PT, PTT ####[facility] [address] [place] [address] Globulin NOT REPORTED Normal 1.5-3.8 [facility] Comment on above: Performed By: #### B MP, CDP, LIVP, PT, PTT ####[facility] [address] [place] [address] MRSA, DNA, Nasalon 8 Specimen Description .NASAL SWAB Normal [facility] Comment on above: Performed By: #### B MP, CDP, LIVP, PT, PTT ####[facility] [address] [place] [address] OPERATIVE REPORTon 8 OPERATIVE REPORT [address] [address] OPERATIVE REPORTPATIENT NAME: FELISHA DIALLO : 1960MED REC NO: [id number] ROOM: [address] [place] [address] NO: [id number] ADMIT DATE: 05/13/2017PROVIDER: Kiara Jerez OF PROCEDURE: [...] obstruction. The patient was seen at an [facility] due to a three-day history of [...] the entire case.KIARA HINESKD: 05/13/2017 14:44:18 MILI/[email or web address]_FINESSEOR_IJob#: [id number] Doc#: [id number]: Normal [facility] Op Noteon 05-13-2017 HIM IP Note OR Band Lining Bander Normal [facility] PTon 05-13-2017 INR Coag RelTime (PPP) 1.0 {INR} Normal [facility] Comment on above: Result Comment: Ther apeutic Range: Moderate Anticoagulant Intensity: INR = 2.0-3.0 High Anticoagulant Intensity: INR = 2.5-3.5[facility] [address] [place] [address] [phone] Performed By: #### B MP, CDP, LIVP, PT, PTT ####[facility] [address] [place] [address] [id number] Prothrombin time (PT) Coag time (PPP) 10.9 s Normal 9.4-12.6 [facility] Comment on above: Performed By: #### B MP, CDP, LIVP, PT, PTT ####[facility] [address] [place] [address] Plan of Careon 05-13-2017 HIM IP Note OR Band Lining Bander Normal [facility] HIM IP Note OR Band Lining Bander Normal [facility] HIM IP Note OR Band Lining Bander Normal [facility] Progress Noteon 05-13-2017 HIM IP Note OR Band Lining Bander Normal [facility] HIM IP Note OR Band Lining Bander Normal [facility] HIM IP Note OR Band Lining Bander Normal [facility] HIM IP Note OR Band Lining Bander Normal [facility] HIM IP Note OR Band Lining Bander Normal [facility] HIM IP Note OR Band Lining Bander Normal [facility] HIM IP Note OR Band Lining Bander Normal [facility] HIM IP Note OR Band Lining Bander Normal [facility] Surgical Pathologyon 018 Surgical Pathology (NOTE)[id number] HEART HOSPITALSULTING PATHOLOGISTS [facility] [id number] [place], [place] [phone] Fax: SURGICAL PATHOLOGY CONSULTATIONPatient Name: Bridget DIALLO Rec: [id number] Number: [id number]: 05/13/2017Received: 05/13/2017Reported: 05/16/2017 12:55-- Diagnosis --1. OMENTUM (INTRAHERNIAL), EXCISION:- HEMO-CONGESTION WITH EARLY ISCHEMIC NECROSIS.- FIBROUS ADHESIONS.2. UMBILICUS AND HERNIA SAC, EXCISION:- BENIGN SKIN WITH DERMAL FIBROSIS AND MILD CHRONIC INFLAMMATION.- SUBCUTANEOUS FIBROADIPOSE TISSUE WITH HERNIA SAC DEMONSTRATINGSEVERE ACUTE INFLAMMATION/EXUDATE AND FOCAL EROSION.Fran Trammell,Electronically Signed Out sls/05/16/2017Clinical InformationOperative Findings: NECROTIC INTRAHERNIA OMENTUM; UMBILICUS ANDHERNIA SACOperation Performed: LAPAROTOMY EXPLORATORY REDUCTION OF VENTRALHERNIA, EXCISION OF NECROTIC OMENTUM, PLACEMENT OF VENTRIO ST HERNIAPATCH, REMOVAL OF UMBILICAL PEDICLESource of Specimen1: NECROTIC INTRAHERNIA OMENTUM2: UMBILICUS AND HERNIA SACGross Description1. FELISHA DIALLO, NECROTIC INTRAHERNIA OMENTUM Fragments of duskypink-fagan omentum with fibrous adhesions, 14.5 x 12.0 x 5.0 cm inaggregate. No discrete masses are seen. 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 sections 1cs. 2. FELISHA DIALLO, UMBILICUS AND HERNIA SAC 6.5 x 3.5 cm umbilicatedtan skin ellipse excised to a depth of 7.0 cm. At the deep marginthere is fibromembranous tissue consistent with hernia sac. Sectioning reveals fibrofatty cut surfaces with no discrete masses. 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 sections 1cs. tmMicroscopic Description1, 2. Microscopic examination performed. Normal [facility] XR CHEST LIMITEDon 8 XR CHEST LIMITED [...] by:SUMAN Tuckerigned by:Jl Diaz MD05/13/17inal result Normal [facility] Vital Signs Date Time Vital Sign Value Performing Clinician Facility 12-16-2023 18:20-0400 Body height 167.64 cm DO Amrit Isaac Work Phone: [facility] 12-16-2023 18:20-0400 Body weight 142.2 kg DO Amrit Isaac Work Phone: [facility] 12-16-2023 18:17-0400 Body temperature 98.9 [degF] DO Amrit Isaac Work Phone: [facility] 12-16-2023 18:17-0400 Diastolic blood pressure 56 mm[Hg] DO Amrit Isaac Work Phone: [facility] 12-16-2023 18:17-0400 Heart rate 99 /min DO Amrit Isaac Work Phone: [facility] 12-16-2023 18:17-0400 Inhaled oxygen flow rate 2 L/min DO Amrit Isaac Work Phone: [facility] 12-16-2023 18:17-0400 Respiratory rate 20 /min DO Amrit Isaac Work Phone: [facility] 12-16-2023 18:17-0400 SaO2% (BldA) [Mass fraction] 96 % DO Amrit Isaac Work Phone: [facility] 12-16-2023 18:17-0400 Systolic blood pressure 121 mm[Hg] DO Amrit Isaac Work Phone: [facility] 12-13-2023 14:59-0400 Body height 165.1 cm Amirahcrystal Lipscomb STRAIGHTENING PRESS OPERATOR.BIOLOGY FACULTY MEMBER Work Phone: [facility] 12-13-2023 14:59-0400 Body mass index (BMI) [Ratio] 51.59 kg/m2 Amirah Kristenfey STRAIGHTENING PRESS OPERATOR.BIOLOGY FACULTY MEMBER Work Phone: [facility] 12-13-2023 14:59-0400 Body temperature 99.3 [degF] Amirah Laffey STRAIGHTENING PRESS OPERATOR.BIOLOGY FACULTY MEMBER Work Phone: [facility] 12-13-2023 14:59-0400 Body weight 140.62 kg Amirah Laffey STRAIGHTENING PRESS OPERATOR.BIOLOGY FACULTY MEMBER Work Phone: [facility] 12-13-2023 14:59-0400 Diastolic blood pressure 76 mm[Hg] Amirah Laffey STRAIGHTENING PRESS OPERATOR.BIOLOGY FACULTY MEMBER Work Phone: [facility] 12-13-2023 14:59-0400 Heart rate 92 /min Amirah Kwakuy STRAIGHTENING PRESS OPERATOR.BIOLOGY FACULTY MEMBER Work Phone: [facility] 12-13-2023 14:59-0400 SaO2% (BldA) [Mass fraction] 91 % Amirahcrystal Petersonferashmi STRAIGHTENING PRESS OPERATOR.BIOLOGY FACULTY MEMBER Work Phone: [facility] 12-13-2023 14:59-0400 Systolic blood pressure 144 mm[Hg] Amirah Amesrashmi JONES.BIOLOGY FACULTY MEMBER Work Phone: [facility] 11-04-2023 08:22-0400 SaO2% (BldA) [Mass fraction] 98 % XIAOYING PHYLLIS [facility] Comment on above: Order Comment: Specimen Type: ARTERIAL B LOOD SPECIMENOrdering Facility: [facility] Address: [address] [place] [address] Performed By: #### A LLBG ####[facility] LABIA [id number] [address] OF [facility] 11-04-2023 04:30-0400 SaO2% (BldA) [Mass fraction] 98 % XIAOYING PHYLLIS [facility] Comment on above: Order Comment: Specimen Type: ARTERIAL B LOOD SPECIMENOrdering Facility: [facility] Address: [address] [place] [address] Performed By: #### A LLBG ####[facility] [id number] [address] [place] OF [facility] 11-04-2023 00:04-0400 SaO2% (BldA) [Mass fraction] 98 % XIAOYING PHYLLIS [facility] Comment on above: Order Comment: Specimen Type: ARTERIAL B LOOD SPECIMENOrdering Facility: [facility] Address: [address] [place] [address] Performed By: #### A LLBG ####[facility] LABCLIA [id number] [place] [id number] [place] [facility] 11-03-2023 20:18-0400 SaO2% (BldA) [Mass fraction] 98 % XIAOYING PHYLLIS [facility] Comment on above: Order Comment: Specimen Type: ARTERIAL B LOOD SPECIMENOrdering Facility: [facility] Address: [address] [place] [address] Performed By: #### A LLBG ####[facility] LABCLIA [id number] [place] [id number] [place] 11-03-2023 17:02-0400 SaO2% (BldA) [Mass fraction] 99 % XIAOYING PHYLLIS [facility] Comment on above: Order Comment: Specimen Type: ARTERIAL B LOOD SPECIMENOrdering Facility: [facility] Address: [address] [place], [place] [address] Performed By: #### A LLBG ####[facility]IA [id number] [place] [id number] [place] 11-03-2023 15:29-0400 SaO2% (BldA) [Mass fraction] 98 % XIAOYING PHYLLIS [facility] Comment on above: Order Comment: Specimen Type: ARTERIAL B LOOD SPECIMENOrdering Facility: [facility] Address: [address] [place] [address] Performed By: #### A LLBG ####[facility]IA [id number] [place] [id number] [place] 11-03-2023 11:53-0400 SaO2% (BldA) [Mass fraction] 99 % XIAOYING PHYLLIS [facility] Comment on above: Order Comment: Specimen Type: ARTERIAL B LOOD SPECIMENOrdering Facility: [facility] Address: [address] [place], [place] [address] Performed By: #### A LLBG ####[facility] [id number] [place] [id number] [place] 11-03-2023 08:06-0400 SaO2% (BldA) [Mass fraction] 99 % XIAOYING PHYLLIS [facility] Comment on above: Order Comment: Specimen Type: ARTERIAL B LOOD SPECIMENOrdering Facility: [facility] Address: [address] [place], [place] [address] Performed By: #### A LLBG ####[facility] [id number] [place] [id number] [place] 11-03-2023 03:47-0400 SaO2% (BldA) [Mass fraction] 97 % XIAOYING PHYLLIS [facility] Comment on above: Order Comment: Specimen Type: ARTERIAL B LOOD SPECIMENOrdering Facility: [facility] Address: [address] [place], [place] [address] Performed By: #### A LLBG ####[facility] LABCLIA [id number] [place] [id number] [place] 11-03-2023 00:20-0400 SaO2% (BldA) [Mass fraction] 97 % XIAOYING PHYLLIS [facility] Comment on above: Order Comment: Specimen Type: ARTERIAL B LOOD SPECIMENOrdering Facility: [facility] Address: [address] [place], [place] [address] Performed By: #### A LLBG ####[facility]IA [id number] [place] [id number] [place] 11-02-2023 20:10-0400 SaO2% (BldA) [Mass fraction] 99 % XIAOYING PHYLLIS [facility] Comment on above: Order Comment: Specimen Type: ARTERIAL B LOOD SPECIMENOrdering Facility: [facility] Address: [address] [place], [place] [address] Performed By: #### A LLBG ####[facility] LABCLIA [id number] [place] [id number] [place] 11-02-2023 16:45-0400 SaO2% (BldA) [Mass fraction] 98 % [facility]YLL[facility] Comment on above: Order Comment: Specimen Type: ARTERIAL B LOOD SPECIMENOrdering Facility: [facility] Address: [address] [place], [place] [address] Performed By: #### A LLBG ####[facility] LABCLIA [id number] [place] [id number] [place] 11-02-2023 08:45-0400 SaO2% (BldA) [Mass fraction] 98 % [facility]OYING PHYLLIS [facility] Comment on above: Order Comment: Specimen Type: ARTERIAL B LOOD SPECIMENOrdering Facility: [facility] Address: [address] [place] [address] Performed By: #### A LLBG ####[facility] LABCLIA [id number] [address] [place] [facility] 11-02-2023 05:41-0400 SaO2% (BldA) [Mass fraction] 98 % X[facility]OYING PHYLLSI [facility] Comment on above: Order Comment: Specimen Type: ARTERIAL B LOOD SPECIMENOrdering Facility: [facility] Address: [address] [place] [address] Performed By: #### A LLBG ####[facility] LABCLIA [id number] [address] [place] 11-02-2023 03:39-0400 SaO2% (BldA) [Mass fraction] 99 % [facility]YLL[facility] Comment on above: Order Comment: Specimen Type: ARTERIAL B LOOD SPECIMENOrdering Facility: [facility] Address: [address] [place] [address] Performed By: #### A LLBG ####[facility] LABCLIA [id number] [address] [place] 11-02-2023 01:35-0400 SaO2% (BldA) [Mass fraction] 97 % [facility]OY[facility]YLL[facility] Comment on above: Order Comment: Specimen Type: ARTERIAL B LOOD SPECIMENOrdering Facility: [facility] Address: [address] [place] [address] Performed By: #### A LLBG ####[facility] LABCLIA [id number] [place] [id number] [place] 11-02-2023 00:01-0400 SaO2% (BldA) [Mass fraction] 97 % [facility]OY[facility]YLL[facility] Comment on above: Order Comment: Specimen Type: ARTERIAL B LOOD SPECIMENOrdering Facility: [facility] Address: [address] [place] [address] Performed By: #### A LLBG ####[facility] LABCLIA [id number] [place] [id number] [place] 11-01-2023 22:13-0400 SaO2% (BldA) [Mass fraction] 98 % [facility]OY[facility]YLL[facility] Comment on above: Order Comment: Specimen Type: ARTERIAL B LOOD SPECIMENOrdering Facility: [facility] Address: [address] [place] [address] Performed By: #### A LLBG ####[facility] LABCLIA [id number] [place] [id number] [place] 11-01-2023 19:34-0400 SaO2% (BldA) [Mass fraction] 96 % [facility]OYING PHYLLIS [facility] Comment on above: Order Comment: Specimen Type: ARTERIAL B LOOD SPECIMENOrdering Facility: [facility] Address: [address] [place] [address] Performed By: #### A LLBG ####[facility] LABCLIA [id number] [place] [id number] [place] 11-01-2023 18:22-0400 SaO2% (BldA) [Mass fraction] 96 % [facility]OYING [facility]YLL[facility] Comment on above: Order Comment: Specimen Type: ARTERIAL B LOOD SPECIMENOrdering Facility: [facility] Address: [address] [place] [address] Performed By: #### A LLBG ####[facility] LABIA [id number] [place] [id number] [place] 11-01-2023 14:50-0400 SaO2% (BldA) [Mass fraction] 97 % X[facility]OYING PHYLLIS [facility] Comment on above: Order Comment: Specimen Type: ARTERIAL B LOOD SPECIMENOrdering Facility: [facility] Address: [address] [place] [address] Performed By: #### A LLBG ####[facility] LABCLIA [id number] [place] [id number] [place] 11-01-2023 09:49-0400 SaO2% (BldA) [Mass fraction] 98 % X[facility]OYING PHYLLIS [facility] Comment on above: Order Comment: Specimen Type: ARTERIAL B LOOD SPECIMENOrdering Facility: [facility] Address: [address] [place] [address] Performed By: #### A LLBG ####[facility] LABCLIA [id number] [place] [id number] [place] 11-01-2023 05:14-0400 SaO2% (BldA) [Mass fraction] 98 % X[facility]OYING PHYLLIS [facility] Comment on above: Order Comment: Specimen Type: ARTERIAL B LOOD SPECIMENOrdering Facility: [facility] Address: [address] [place] [address] Performed By: #### A LLBG ####[facility] LABCLIA [id number] [place] [id number] [place] 11-01-2023 01:51-0400 SaO2% (BldA) [Mass fraction] 96 % X[facility]OYING PHYLLIS [facility] Comment on above: Order Comment: Specimen Type: ARTERIAL B LOOD SPECIMENOrdering Facility: [facility] Address: [address] [place] [address] Performed By: #### A LLBG ####[facility] LABIA [id number] [place] [id number] [place] 10-31-2023 21:34-0400 SaO2% (BldA) [Mass fraction] 99 % XIAOYING PHYLLIS [facility] Comment on above: Order Comment: Specimen Type: ARTERIAL B LOOD SPECIMENOrdering Facility: [facility] Address: [address] [place], [place] [address] Performed By: #### A LLBG ####[facility] LABIA [id number] [address] [address] [place] 10-31-2023 17:44-0400 SaO2% (BldA) [Mass fraction] 99 % XIAOYING PHYLLIS [facility] Comment on above: Order Comment: Specimen Type: ARTERIAL B LOOD SPECIMENOrdering Facility: [facility] Address: [address] [place], [place] [address] Performed By: #### A LLBG ####[facility] [id number] [place] [id number] [place] 10-31-2023 14:45-0400 SaO2% (BldA) [Mass fraction] 96 % X[facility]OYING PHYLLIS [facility] Comment on above: Order Comment: Specimen Type: ARTERIAL B LOOD SPECIMENOrdering Facility: [facility] Address: [address] [place], [place] [address] Performed By: #### A LLBG ####[facility] [id number] [place] [id number] [place] 10-31-2023 12:09-0400 SaO2% (BldA) [Mass fraction] 99 % X[facility]OYING PHYLLIS [facility] Comment on above: Order Comment: Specimen Type: ARTERIAL B LOOD SPECIMENOrdering Facility: [facility] Address: [address] [place], [place] [address] Performed By: #### A LLBG ####[facility] [id number] [place] [id number] [place] 10-31-2023 10:16-0400 SaO2% (BldA) [Mass fraction] 98 % X[facility]OYING PHYLLIS [facility] Comment on above: Order Comment: Specimen Type: ARTERIAL B LOOD SPECIMENOrdering Facility: [facility] Address: [address] [place], [place] [address] Performed By: #### A LLBG ####[facility] LABIA [id number] [place] [id number] [place] 10-31-2023 07:43-0400 SaO2% (BldA) [Mass fraction] 99 % XIAOYING PHYLLIS [facility] Comment on above: Order Comment: Specimen Type: ARTERIAL B LOOD SPECIMENOrdering Facility: [facility] Address: [address] [place], [place] [address] Performed By: #### A LLBG ####[facility] LABIA [id number] [place] [id number] [place] 10-31-2023 04:58-0400 SaO2% (BldA) [Mass fraction] 99 % X[facility]OYING PHYLLIS [facility] Comment on above: Order Comment: Specimen Type: ARTERIAL B LOOD SPECIMENOrdering Facility: [facility] Address: [address] [place] [address] Performed By: #### A LLBG ####[facility] [id number] [place] [id number] [place] 10-31-2023 03:00-0400 SaO2% (BldA) [Mass fraction] 99 % XIAOYING PHYLLIS [facility] Comment on above: Order Comment: Specimen Type: ARTERIAL B LOOD SPECIMENOrdering Facility: [facility] Address: [address] [place], [place] [address] Performed By: #### A LLBG ####[facility] LABIA [id number] [place] [id number] [place] 10-31-2023 00:01-0400 SaO2% (BldA) [Mass fraction] 98 % XIAOYING PHYLLIS [facility] Comment on above: Order Comment: Specimen Type: ARTERIAL B LOOD SPECIMENOrdering Facility: [facility] Address: [address] [place] [address] Performed By: #### A LLBG ####[facility] LABCLIA [id number] [place] [id number] [place] 10-30-2023 22:08-0400 SaO2% (BldA) [Mass fraction] 100 % X[facility]OYING PHYLLIS [facility] Comment on above: Order Comment: Specimen Type: ARTERIAL B LOOD SPECIMENOrdering Facility: [facility] Address: [address] [place] [address] Performed By: #### A LLBG ####[facility] LABIA [id number] [place] [id number] [place] 10-30-2023 19:32-0400 SaO2% (BldA) [Mass fraction] 99 % XIAOYING PHYLLIS [facility] Comment on above: Order Comment: Specimen Type: ARTERIAL B LOOD SPECIMENOrdering Facility: [facility] Address: [address] [place] [address] Performed By: #### A LLBG ####[facility] LABIA [id number] [place] [id number] [place] 10-30-2023 15:51-0400 SaO2% (BldA) [Mass fraction] 99 % X[facility]OYING PHYLLIS [facility] Comment on above: Order Comment: Specimen Type: ARTERIAL B LOOD SPECIMENOrdering Facility: [facility] Address: [address] [place] [address] Performed By: #### A LLBG ####[facility] LABIA [id number] [place] [id number] [place] 10-30-2023 12:29-0400 SaO2% (BldA) [Mass fraction] 99 % XIAOYING PHYLLIS [facility] Comment on above: Order Comment: Specimen Type: ARTERIAL B LOOD SPECIMENOrdering Facility: [facility] Address: [address] [place] [address] Performed By: #### A LLBG ####[facility] LABIA [id number] [address] [address] [place] 10-30-2023 10:39-0400 SaO2% (BldA) [Mass fraction] 99 % XIAOYING PHYLLIS [facility] Comment on above: Order Comment: Specimen Type: ARTERIAL B LOOD SPECIMENOrdering Facility: [facility] Address: [address] [place] [address] Performed By: #### A LLBG ####[facility] LABCLIA [id number] [place] [id number] [place] 10-30-2023 05:29-0400 SaO2% (BldA) [Mass fraction] 98 % XIAOYING PHYLLIS [facility] Comment on above: Order Comment: Specimen Type: ARTERIAL B LOOD SPECIMENOrdering Facility: [facility] Address: [address] [place] [address] Performed By: #### A LLBG ####[facility] LABCLIA [id number] [place] [id number] [place] 10-30-2023 03:44-0400 SaO2% (BldA) [Mass fraction] 99 % X[facility]OYING PHYLLIS [facility] Comment on above: Order Comment: Specimen Type: ARTERIAL B LOOD SPECIMENOrdering Facility: [facility] Address: [address] [place] [address] Performed By: #### A LLBG ####[facility] LABCLIA [id number] [place] [id number] [place] 10-30-2023 01:25-0400 SaO2% (BldA) [Mass fraction] 97 % XIAOYING PHYLLIS [facility] Comment on above: Order Comment: Specimen Type: ARTERIAL B LOOD SPECIMENOrdering Facility: [facility] Address: [address] [place] [address] Performed By: #### A LLBG ####[facility] LABCLIA [id number] [place] [id number] [facility] 10-29-2023 23:27-0400 SaO2% (BldA) [Mass fraction] 94 % XIAOYING PHYLLIS [facility] Comment on above: Order Comment: Specimen Type: ARTERIAL B LOOD SPECIMENOrdering Facility: [facility] Address: [address] [place], [place] [address] Performed By: #### A LLBG ####[facility] LABCLIA [id number] [place] [id number] [facility] 10-29-2023 21:24-0400 SaO2% (BldA) [Mass fraction] 98 % XIAOYING PHYLLIS [facility] Comment on above: Order Comment: Specimen Type: ARTERIAL B LOOD SPECIMENOrdering Facility: [facility] Address: [address] [place] [address] Performed By: #### A LLBG ####[facility] LABCLIA [id number] [place] [id number] [facility] 10-29-2023 19:40-0400 SaO2% (BldA) [Mass fraction] 96 % X[facility]OYING PHYLLIS [facility] Comment on above: Order Comment: Specimen Type: ARTERIAL B LOOD SPECIMENOrdering Facility: [facility] Address: [address] [place] [address] Performed By: #### A LLBG ####[facility] LABCLIA [id number] [place] [id number] [facility] 10-29-2023 17:33-0400 SaO2% (BldA) [Mass fraction] 99 % X[facility]OYING PHYLL[facility] Comment on above: Order Comment: Specimen Type: ARTERIAL B LOOD SPECIMENOrdering Facility: [facility] Address: [address] [place] [address] Performed By: #### A LLBG ####[facility] LABCLIA [id number] [place] [id number] [facility] 10-29-2023 15:34-0400 SaO2% (BldA) [Mass fraction] 99 % X[facility]OYING PHYLL[facility] Comment on above: Order Comment: Specimen Type: ARTERIAL B LOOD SPECIMENOrdering Facility: [facility] Address: [address] [place], [place] [address] Performed By: #### A LLBG ####[facility] LABCLIA [id number] [place] [id number] [place] [facility] 10-29-2023 12:56-0400 SaO2% (BldA) [Mass fraction] 98 % [facility]OY[facility] PHYLL[facility] Comment on above: Order Comment: Specimen Type: ARTERIAL B LOOD SPECIMENOrdering Facility: [facility] Address: [address] [place], [place] [address] Performed By: #### A LLBG ####[facility] LABIA [id number] [place] [id number] [place] [facility] 10-29-2023 10:55-0400 SaO2% (BldA) [Mass fraction] 99 % X[facility]OYING PHYLLIS [facility] Comment on above: Order Comment: Specimen Type: ARTERIAL B LOOD SPECIMENOrdering Facility: [facility] Address: [address] [place], [place] [address] Performed By: #### A LLBG ####[facility] LABCLIA [id number] [place] [id number] [place] 10-29-2023 09:38-0400 SaO2% (BldA) [Mass fraction] 98 % X[facility]OYING PHYLL[facility] Comment on above: Order Comment: Specimen Type: ARTERIAL B LOOD SPECIMENOrdering Facility: [facility] Address: [address] [place], [place] [address] Performed By: #### A LLBG ####[facility] LABIA [id number] [address] [address] [place] 10-29-2023 07:51-0400 SaO2% (BldA) [Mass fraction] 99 % X[facility]OYING PHYLLIS [facility] Comment on above: Order Comment: Specimen Type: ARTERIAL B LOOD SPECIMENOrdering Facility: [facility] Address: [address] [place] [address] Performed By: #### A LLBG ####[facility] LABCLIA [id number] [place] [id number] [place] 10-29-2023 05:33-0400 SaO2% (BldA) [Mass fraction] 98 % X[facility]OYING PHYLL[facility] Comment on above: Order Comment: Specimen Type: ARTERIAL B LOOD SPECIMENOrdering Facility: [facility] Address: [address] [place] [address] Performed By: #### A LLBG ####[facility] LABCLIA [id number] [place] [id number] [place] 10-29-2023 03:37-0400 SaO2% (BldA) [Mass fraction] 99 % [facility]OYING PHYLL[facility] Comment on above: Order Comment: Specimen Type: ARTERIAL B LOOD SPECIMENOrdering Facility: [facility] Address: [address] [place] [address] Performed By: #### A LLBG ####[facility] LABCLIA [id number] [place] [id number] [place] 10-29-2023 01:08-0400 SaO2% (BldA) [Mass fraction] 94 % X[facility]OYING PHYLLIS [facility] Comment on above: Order Comment: Specimen Type: ARTERIAL B LOOD SPECIMENOrdering Facility: [facility] Address: [address] [place] [address] Performed By: #### A LLBG ####[facility] LABIA [id number] [place] [id number] [place] 10-28-2023 23:27-0400 SaO2% (BldA) [Mass fraction] 96 % X[facility]OYING PHYLLIS [facility] Comment on above: Order Comment: Specimen Type: ARTERIAL B LOOD SPECIMENOrdering Facility: [facility] Address: [address] [place] [address] Performed By: #### A LLBG ####[facility] LABIA [id number] [place] [id number] [place] 10-28-2023 21:34-0400 SaO2% (BldA) [Mass fraction] 96 % X[facility]OYING PHYLL[facility] Comment on above: Order Comment: Specimen Type: ARTERIAL B LOOD SPECIMENOrdering Facility: [facility] Address: [address] [place] [address] Performed By: #### A LLBG ####[facility] LABIA [id number] [place] [id number] [place] 10-28-2023 19:28-0400 SaO2% (BldA) [Mass fraction] 97 % [facility]OY[facility] PHYLL[facility] Comment on above: Order Comment: Specimen Type: ARTERIAL B LOOD SPECIMENOrdering Facility: [facility] Address: [address] [place] [address] Performed By: #### A LLBG ####[facility] LABIA [id number] [place] [id number] [place] 10-28-2023 17:31-0400 SaO2% (BldA) [Mass fraction] 99 % [facility]OY[facility] PHYLL[facility] Comment on above: Order Comment: Specimen Type: ARTERIAL B LOOD SPECIMENOrdering Facility: [facility] Address: [address] [place] [address] Performed By: #### A LLBG ####[facility] LABIA [id number] [place] [id number] [place] 10-28-2023 16:36-0400 SaO2% (BldA) [Mass fraction] 96 % [facility]OY[facility] PHYLL[facility] Comment on above: Order Comment: Specimen Type: ARTERIAL B LOOD SPECIMENOrdering Facility: [facility] Address: [address] [place] [address] Performed By: #### A LLBG ####[facility] [id number] [place] [id number] [facility] 10-28-2023 15:21-0400 SaO2% (BldA) [Mass fraction] 99 % [facility]OY[facility] PHYLL[facility] Comment on above: Order Comment: Specimen Type: ARTERIAL B LOOD SPECIMENOrdering Facility: [facility] Address: [address] [place] [address] Performed By: #### A LLBG ####[facility] [id number] [place] [id number] [facility] 10-28-2023 13:25-0400 SaO2% (BldA) [Mass fraction] 99 % X[facility]OY[facility] PHYLL[facility] Comment on above: Order Comment: Specimen Type: ARTERIAL B LOOD SPECIMENOrdering Facility: [facility] Address: [address] [place] [address] Performed By: #### A LLBG ####[facility] [id number] [place] [id number] [facility] 10-28-2023 11:27-0400 SaO2% (BldA) [Mass fraction] 97 % [facility]YLL[facility] Comment on above: Order Comment: Specimen Type: ARTERIAL B LOOD SPECIMENOrdering Facility: [facility] Address: [address] [place] [address] Performed By: #### A LLBG ####[facility] [id number] [place] [id number] [place] 10-28-2023 09:09-0400 SaO2% (BldA) [Mass fraction] 98 % [facility]LL[facility] Comment on above: Order Comment: Specimen Type: ARTERIAL B LOOD SPECIMENOrdering Facility: [facility] Address: [address] [place] [address] Performed By: #### A LLBG ####[facility] LABCLIA [id number] [address] [address] [facility] 10-28-2023 07:33-0400 SaO2% (BldA) [Mass fraction] 99 % [facility]YLL[facility] Comment on above: Order Comment: Specimen Type: ARTERIAL B LOOD SPECIMENOrdering Facility: [facility] Address: [address] [place] [address] Performed By: #### A LLBG ####[facility] LABCLIA [id number] [place] [id number] [facility] 10-28-2023 06:01-0400 SaO2% (BldA) [Mass fraction] 96 % [facility]OY[facility] PHYLL[facility] Comment on above: Order Comment: Specimen Type: ARTERIAL B LOOD SPECIMENOrdering Facility: [facility] Address: [address] [place] [address] Performed By: #### A LLBG ####[facility] LABIA [id number] [place] [id number] [facility] [place] 10-28-2023 05:28-0400 SaO2% (BldA) [Mass fraction] 99 % [facility]OY[facility] PHYLL[facility] Comment on above: Order Comment: Specimen Type: ARTERIAL B LOOD SPECIMENOrdering Facility: [facility] Address: [address] [place] [address] Performed By: #### A LLBG ####[facility] LABCLIA [id number] [place] [id number] [place] 10-28-2023 03:26-0400 SaO2% (BldA) [Mass fraction] 96 % [facility] PHYLL[facility] Comment on above: Order Comment: Specimen Type: ARTERIAL B LOOD SPECIMENOrdering Facility: [facility] Address: [address] [place] [address] Performed By: #### A LLBG ####[facility] LABIA [id number] [address] [address] [place] 10-28-2023 01:43-0400 SaO2% (BldA) [Mass fraction] 99 % [facility]YLL[facility] Comment on above: Order Comment: Specimen Type: ARTERIAL B LOOD SPECIMENOrdering Facility: [facility] Address: [address] [place], [place] [address] Performed By: #### A LLBG ####[facility] LABIA [id number] [place] [id number] [place] 10-27-2023 23:38-0400 SaO2% (BldA) [Mass fraction] 99 % [facility]YLL[facility] Comment on above: Order Comment: Specimen Type: ARTERIAL B LOOD SPECIMENOrdering Facility: [facility] Address: [address] [place], [place] [address] Performed By: #### A LLBG ####[facility] [id number] [place] [id number] [place] 10-27-2023 21:12-0400 SaO2% (BldA) [Mass fraction] 96 % XIAOYING PHYLLIS [facility] Comment on above: Order Comment: Specimen Type: ARTERIAL B LOOD SPECIMENOrdering Facility: [facility] Address: [address] [place], [place] [address] Performed By: #### A LLBG ####[facility] LABIA [id number] [place] [id number] [place] 10-27-2023 19:21-0400 SaO2% (BldA) [Mass fraction] 100 % XIAOYING PHYLLIS [facility] Comment on above: Order Comment: Specimen Type: ARTERIAL B LOOD SPECIMENOrdering Facility: [facility] Address: [address] [place], [place] [address] Performed By: #### A LLBG ####[facility] LABIA [id number] [place] [id number] [place] [facility] 10-27-2023 18:26-0400 SaO2% (BldA) [Mass fraction] 100 % XIAOYING PHYLLIS [facility] Comment on above: Order Comment: Specimen Type: ARTERIAL B LOOD SPECIMENOrdering Facility: [facility] Address: [address] [place] [address] Performed By: #### A LLMG ####[facility] LABCLIA [id number] [place] [id number] [place] 10-27-2023 17:31-0400 SaO2% (BldA) [Mass fraction] 100 % XIAOYING PHYLLIS [facility] [facility] Comment on above: Order Comment: Specimen Type: ARTERIAL B LOOD SPECIMENOrdering Facility: [facility] Address: [address] [place] [address] Performed By: #### A LLBG ####[facility] LABCLIA [id number] [place] [id number] [place] 10-27-2023 16:40-0400 SaO2% (BldA) [Mass fraction] 100 % XIAOYING PHYLLIS [facility] Comment on above: Order Comment: Specimen Type: ARTERIAL B LOOD SPECIMENOrdering Facility: [facility] Address: [address] [place] [address] Performed By: #### A LLMG ####[facility] LABCLIA [id number] [place] [id number] [place] 10-27-2023 15:37-0400 SaO2% (BldA) [Mass fraction] 100 % XIAOYING PHYLLIS [facility] Comment on above: Order Comment: Specimen Type: ARTERIAL B LOOD SPECIMENOrdering Facility: [facility] Address: [address] [place] [address] Performed By: #### A LLBG ####[facility] LABCLIA [id number] [place] [id number] [place] 10-27-2023 12:59-0400 SaO2% (BldA) [Mass fraction] 96 % LYNNETTE THOMPSONU [facility] Comment on above: Order Comment: Specimen Type: ARTERIAL B LOOD SPECIMENOrdering Facility: [facility] Address: [address] [place] [address] Performed By: #### A LLBG ####[facility] LABCLIA [id number] [facility] [id number] [place] [address] [place] 10-19-2023 14:26-0400 Body temperature 97.59 [degF] Mariana [...] 14:26-0400 Systolic blood pressure 88 mm[Hg] Mariana Nieves i, MD Work Phone: [facility] [...] 15:55-0500 Systolic blood pressure 119 mm[Hg] Bennie fontaine MD Work Phone: [facility] [...] 14:32-0500 Systolic blood pressure 110 mm[Hg] Mariana Nieves i, MD Work Phone: [facility] [...] 14:07-0500 Systolic blood pressure 90 mm[Hg] Mariana Nieves i, MD Work Phone: [facility] 01-20-2023 15:00-0400 Body height 172.72 cm Hetal Elissa Other [employer] Other 01-20-2023 15:00-0400 Body temperature 98.7 [degF] Hetal Elissa Other [employer] Other 01-20-2023 15:00-0400 Diastolic blood pressure 70 mm[Hg] Hetal Elissa Other [employer] Other 01-20-2023 15:00-0400 Respiratory rate 20 /min Hetal Elissa Other [employer] Other 01-20-2023 15:00-0400 SaO2% (BldA) [Mass fraction] 92 % Hetal Elissa Other [employer] Other 01-20-2023 15:00-0400 Systolic blood pressure 125 mm[Hg] Hetal Elissa Other [employer] Other 12-15-2022 14:27-0400 Body temperature 97.7 [degF] [...] 14:27-0400 Systolic blood pressure 110 mm[Hg] Mariana Nieves i, MD Work Phone: [facility] [...] 14:54-0400 Systolic blood pressure 110 mm[Hg] Mariana Nieves i, MD Work Phone: [facility] 07-20-2022 16:00-0400 Body height 172.72 cm Hetal Bowers Other [employer] Other 07-20-2022 16:00-0400 Body temperature 98.6 [degF] Hetal Elissa Other [employer] Other 07-20-2022 16:00-0400 Diastolic blood pressure 87 mm[Hg] Hetal Elissa Other [employer] Other 07-20-2022 16:00-0400 Respiratory rate 20 /min Hetal Elissa Other [employer] Other 07-20-2022 16:00-0400 SaO2% (BldA) [Mass fraction] 93 % Hetal Elissa Other [employer] Other 07-20-2022 16:00-0400 Systolic blood pressure 129 mm[Hg] Hetal Elissa Other [employer] Other 07-07-2022 13:17-0500 Body height 165.6 cm [...] 13:17-0500 Systolic blood pressure 132 mm[Hg] Mariana Nieves i, MD Work Phone: [facility] [...] 13:52-0500 Systolic blood pressure 150 mm[Hg] Mariana Nieves i, MD Work Phone: [facility] [...] 13:51-0500 Diastolic blood pressure 81 mm[Hg] [facility] 03-31-2022 13:51-0500 Heart rate 98 /min [facility] 03-31-2022 13:51-0500 Respiratory rate 18 /min [facility] 03-31-2022 13:51-0500 SaO2% (BldA) [Mass fraction] 96 % [facility] Comment on above: RA 03-31-2022 13:51-0500 Systolic blood pressure 138 mm[Hg] [facility] 03-10-2022 12:46-0500 Body temperature 97.9 [degF] Mariana [...] 12:46-0500 Systolic blood pressure 130 mm[Hg] Mariana Nieves i, MD Work Phone: [facility] 01-25-2022 16:00-0400 Body height 172.72 cm Hetal Elissa Other [employer] Other 01-25-2022 16:00-0400 Body temperature 96.6 [degF] Hetal Elissa Other [employer] Other 01-25-2022 16:00-0400 Diastolic blood pressure 70 mm[Hg] Hetal Elissa Other [employer] Other 01-25-2022 16:00-0400 Respiratory rate 18 /min Hetal Elissa Other [employer] Other 01-25-2022 16:00-0400 SaO2% (BldA) [Mass fraction] 94 % Hetal Elissa Other [employer] Other 01-25-2022 16:00-0400 Systolic blood pressure 124 mm[Hg] Hetal Elisas Other [employer] Other 07-08-2021 14:40-0500 Body height 172.72 cm Hetal Elissa Other [employer] Other 07-08-2021 14:40-0500 Body temperature 98 [degF] Hetal Elissa Other [employer] Other 07-08-2021 14:40-0500 Diastolic blood pressure 65 mm[Hg] Hetal Elissa Other [employer] Other 07-08-2021 14:40-0500 Respiratory rate 20 /min Hetal Elissa Other [employer] Other 07-08-2021 14:40-0500 SaO2% (BldA) [Mass fraction] 94 % Hetal Elissa Other [employer] Other 07-08-2021 14:40-0500 Systolic blood pressure 122 mm[Hg] Hetal Elissa Other [employer] Other 10-19-2020 18:12-0400 Body height 175.26 cm Sarah Valentino Work Phone: [facility] 10-19-2020 18:12-0400 Body mass index (BMI) [Ratio] 47.2 kg/m2 Sarah Ramirezman Work Phone: [facility] 10-19-2020 18:12-0400 Body temperature 98.1 [degF] Sarah Valentino Work Phone: [facility] 10-19-2020 18:12-0400 Body weight 145.14 kg Sarah Valentino Work Phone: [facility] 10-19-2020 18:12-0400 Diastolic blood pressure 55 mm[Hg] Sarah Valentino Work Phone: [facility] 10-19-2020 18:12-0400 Heart rate 114 /min Sarah Valentino Work Phone: [facility] 10-19-2020 18:12-0400 Respiratory rate 16 /min Sarah Valentino Work Phone: [facility] 10-19-2020 18:12-0400 SaO2% (BldA) [Mass fraction] 94 % Sarah Valentino Work Phone: [facility] 10-19-2020 18:12-0400 Systolic blood pressure 109 mm[Hg] Sarah Valentino Work Phone: [facility] Encounters Encounter Date Encounter Type Care Provider Facility Start: 12-21-2023 End: 12-21-2023 Telephone encounter Amirah Lipscomb APRN.BIOLOGY FACULTY MEMBER Work Phone: Cardiothoracic Start: 12-19-2023 End: 12-19-2023 Telephone encounter Lynnette Figueroa MD Work Phone: Cardiology Comment on above: Post Dc Program Call - Urgent Start: 12-17-2023 End: 12-17-2023 Telephone encounter Elida Killian APRN.BIOLOGY FACULTY MEMBER Work Phone: [facility] Comment on above: Returning Patient's Call Start: 12-16-2023 End: 12-16-2023 Emergency department patient visit DO Amrit Isaac Work Phone: [facility]-Emergency Room Work Phone: Start: 12-13-2023 End: 12-13-2023 Patient encounter procedure Amirah Lipscomb APRN.CNP Work Phone: Cardiothoracic Comment on above: Dissection of ascend ing aorta (HCC) (Primary Dx); Paroxysmal atrial fibrillation (HCC); SOPHIA (acute kidney injury) (HCC); Wound disruption, initial encounter; Hypokalemia Start: 12-13-2023 End: 12-13-2023 Subsequent hospital visit by physician Xr Chest Main J1 Work Phone: Radiology Comment on above: Surgery follow-up [Z 09] Start: 12-13-2023 End: 12-13-2023 ambulatory [facility] Facility:[facility] Start: 11-23-2023 Telephone encounter Cheri Ricci NOC Start: 11-22-2023 Orders Only Yimi Griggs Work Phone: Cardiology Comment on above: 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) Start: 11-04-2023 Telephone encounter Lynnette jaime MD Work Phone: Cardiothoracic Comment on above: Forms Start: 10-27-2023 End: 10-27-2023 Nursing evaluation of patient and report Research Nurse [facility] Main Work Phone: Cardiothoracic Comment on above: Research subject (Pr imary Dx) Start: 10-27-2023 End: 10-27-2023 Patient entered into trial Research Nurse Ctho Main Work Phone: [facility] Start: 10-27-2023 End: 11-22-2023 Evaluation and management of inpatient [facility] Facility:[facility] Start: 10-19-2023 End: 10-19-2023 ambulatory MARIANA ZAMORA Facility:[facility] Start: 10-19-2023 End: 10-19-2023 Follow-up encounter Mariana Zamora MD Work Phone: Gynecology Oncology Comment on above: Abdominal pannus (Pr imary Dx); Encounter for follow-up surveillance of vulvar cancer [Z08, Z85.44] Start: 10-19-2023 End: 10-19-2023 Patient encounter procedure Mariana Zamora MD Work Phone: Gynecology Oncology Start: 09-27-2023 End: 09-27-2023 ambulatory SARAH Kiara CHELSY Not Available Start: 09-20-2023 End: 09-20-2023 ambulatory MAURO A PETITTI Not Available Start: 07-19-2023 End: 07-19-2023 ambulatory MAURO A PETITTI Not Available Start: 07-08-2023 End: 07-08-2023 ambulatory SARAHAR RAMIREZMAN Facility:[facility] Start: 07-08-2023 End: 07-08-2023 Office outpatient new 20 minutes Bennie Payne MD Work Phone: Plastic Surgery Comment on above: Abdominal panniculus (Primary Dx) Start: 07-08-2023 Chart abstracting Bennie hadley MD Work Phone: Plastic Surgery Comment on above: PHOTOS TAKEN Start: 07-05-2023 End: 07-05-2023 ambulatory SARAH VALENTINO Not Available Start: 07-01-2023 ambulatory Rebecca Vivien Venesile STRAIGHTENING PRESS OPERATOR.BIOLOGY FACULTY MEMBER Work Phone: Gynecology Oncology Start: 06-24-2023 Orders Only Rebecca Vivien Venesile STRAIGHTENING PRESS OPERATOR.BIOLOGY FACULTY MEMBER Work Phone: Gynecology Oncology Comment on above: Vulvar candidiasis ( Primary Dx) Start: 06-22-2023 End: 06-22-2023 ambulatory SARAH VALENTINO Facility:[facility] Start: 06-22-2023 End: 06-22-2023 Follow-up encounter [...] NE [facility] Start: 03-21-2023 Orders Only Elidia Walter STRAIGHTENING PRESS OPERATOR.BIOLOGY FACULTY MEMBER Work Phone: Gynecology Oncology Start: 03-19-2023 ambulatory Mariana Zamora MD Work Phone: Gynecology Oncology Comment on above: The antifungal hieu fontaine Start: 03-16-2023 End: 03-16-2023 ambulatory SARAH BATH Facility:[facility] Start: 03-16-2023 End: 03-16-2023 Follow-up encounter Mariana Zamora MD Work Phone: Gynecology Oncology Comment on above: Encounter for follow -up surveillance of vulvar cancer [Z08, Z85.44 (ICD-10-CM)] (Primary Dx); Vulvar candidiasis [B37.31] Start: 03-16-2023 End: 03-16-2023 Patient encounter procedure Mariana Zamora MD Work Phone: [facility] Start: 02-04-2023 End: 02-04-2023 ambulatory Hetal Elissa Other [employer] Other Start: 02-04-2023 Telephone encounter Hetal Elissa [facility] Start: 01-26-2023 End: 01-27-2023 ambulatory HETAL ELISSA Facility:[facility] Start: 01-20-2023 End: 01-20-2023 ambulatory Hetal Elissa Other [employer] Other Start: 01-20-2023 Office outpatient vi sit 15 minutes Hetal Elissa [facility] Start: 12-15-2022 End: 12-15-2022 Follow-up encounter Mariana Zamora MD Work Phone: Gynecology Oncology Comment on above: Encounter for follow -up surveillance of vulvar cancer [Z08, Z85.44 (ICD-10-CM)] (Primary Dx) Start: 12-15-2022 End: 12-15-2022 Patient encounter procedure Mariana Zamora MD Work Phone: [facility] Start: 12-02-2022 End: 12-02-2022 ambulatory Hetal Elissa Other [employer] Other Start: 12-02-2022 Telephone encounter Hetal Elissa [facility] Start: 09-30-2022 End: 10-01-2022 ambulatory MARIANA ZAMORA Facility:[facility] Start: 09-30-2022 End: 09-30-2022 Follow-up encounter Mariana Zamora MD Work Phone: Gynecology Comment on above: Encounter for follow -up surveillance of vulvar cancer [Z08, Z85.44 (ICD-10-CM)] (Primary Dx) Start: 09-30-2022 End: 09-30-2022 Telemedicine consultation with patient Mariana Zamora MD Work Phone: [facility] Start: 09-20-2022 End: 09-21-2022 ambulatory SARAH VALENTINO Facility:[facility] Start: 09-08-2022 End: 09-09-2022 ambulatory Mariana Zamora MD Work Phone: Gynecology Oncology Comment on above: Vulvar cancer (HCC) (Primary Dx); Open wound [T14.8XXA (ICD-10-CM)] Start: 09-08-2022 End: 09-09-2022 Patient encounter procedure Mariana Zamora MD Work Phone: [facility] Start: 08-31-2022 End: 08-31-2022 ambulatory HEMANT OROZCO . Facility:[facility] Start: 08-26-2022 End: 08-27-2022 ambulatory DAVION MAURICE Facility:[facility] Start: 07-26-2022 End: 07-27-2022 ambulatory GRETCHEN ANTOINETTE Facility:[facility] Start: 07-20-2022 End: 07-20-2022 ambulatory Hetal Elissa Other [employer] Other Start: 07-20-2022 Office outpatient vi sit 25 minutes Hetal Elissa [facility] Start: 07-14-2022 End: 07-15-2022 ambulatory HETALDANIEL BOWERS Facility:[facility] Start: 07-07-2022 End: 07-07-2022 ambulatory Mariana [...] kidney disease, unspecified CKD stage, unspecified whether degreaser insulin use (HCC) [E11.22 (ICD-10-CM)] Start: 07-07-2022 End: 07-07-2022 Patient encounter procedure Mariana Zamora MD Work Phone: [facility] Start: 07-06-2022 End: 07-07-2022 ambulatory SARAH BATH Facility: Start: 06-25-2022 Telephone encounter Kennedy Garcia MD [...] Dx) Start: 05-27-2022 End: 05-28-2022 ambulatory MARIANA ZAMORA Facility:[facility] Start: 05-26-2022 Telephone encounter Kennedy Garcia MD Work Phone: Radiation Oncology Comment on above: Appointment Cancelle d Start: 05-25-2022 Telephone encounter Lesia METCALF H ematology/Oncology Comment on above: Social Work Services (Transportation for 06/17, 06/22 and 06/23.) Start: 05-24-2022 Refill Lilly green [facility] Work Phone: [facility] Comment on above: Refill Request [...] encounter procedure Mariana Zamora MD Work Phone: [facility] Comment on above: Vulvar cancer (HCC) (Primary Dx) Start: 05-07-2022 Telephone encounter Lesia Jett CLINICAL TEAM MANAGER H ematology/Oncology Comment on above: Social Work Services Start: 05-06-2022 End: 05-06-2022 Patient encounter procedure Kennedy Garcia MD Work Phone: Radiation Oncology Comment on above: Vulvar cancer (HCC) (Primary Dx) Start: 04-29-2022 Telephone encounter Lesia Jett CLINICAL TEAM MANAGER H ematology/Oncology Comment on above: Social Work Services Start: 04-22-2022 Telephone encounter Lesia Jett CLINICAL TEAM MANAGER H ematology/Oncology Comment on above: Returning Patient's Call Start: 04-21-2022 Telephone encounter Lesiajayda Frausto CLINICAL TEAM MANAGER H ematology/Oncology Comment on above: Social Work Services (transportation) Start: 04-20-2022 Telephone encounter Lesia Jett CLINICAL TEAM MANAGER H ematology/Oncology Comment on above: Social Work Services Start: 04-19-2022 ambulatory [facility] Facility: Start: 04-19-2022 Telephone encounter Lesia Jett CLINICAL TEAM MANAGER H ematology/Oncology Comment on above: Social Work Services Start: 04-16-2022 Telephone encounter Lesia Jett CLINICAL TEAM MANAGER H ematology/Oncology Comment on above: Social Work Services (Transportation) Start: 04-15-2022 Telephone encounter Lesia Jett CLINICAL TEAM MANAGER H ematology/Oncology Comment on above: Social Work Services (Transportation) Start: 04-14-2022 Patient encounter procedure Kennedy Garcia MD Work Phone: [facility] Start: 04-14-2022 Radiation Oncology Note Kennedy martinez MD Work Phone: Radiation Oncology Comment on above: Treatment Planning Start: 04-14-2022 End: 04-14-2022 Social Work Lesia Jett CLINICAL TEAM MANAGER Hematology/Oncology Comment on above: Vulvar cancer (HCC) (Primary Dx) Start: 04-09-2022 Telephone encounter Lesia Jett CLINICAL TEAM MANAGER H ematology/Oncology Comment on above: Social Work Services Start: 04-02-2022 ambulatory Sanjana Olivas BULB FARMWORKER Radia tion Oncology Comment on above: Patient Education Start: 04-02-2022 End: 04-02-2022 Patient encounter procedure Kennedy Garcia MD Work Phone: Radiation Oncology Comment on above: Vulvar cancer (HCC) Start: 03-31-2022 End: 04-18-2022 ambulatory UNKNOWN PROVIDER Facility:[facility] Start: 03-31-2022 End: 03-31-2022 ambulatory [facility] Emergenc y Triage, Treat and Transport Start: 03-31-2022 End: 03-31-2022 Emergency department patient visit [facility] Emergency Triage, Treat and Transport Comment on above: Arrived Start: 03-29-2022 End: 03-30-2022 ambulatory SARAH BATH Facility:[facility] Start: 03-29-2022 Telephone encounter Lesia Quevedo ematology/Oncology Comment on above: Social Work Services Start: 03-26-2022 Telephone encounter Lesia Quevedo ematology/Oncology Comment on above: Social Work Services [...] with patient Mariana Zamora MD Work Phone: [facility] Start: 03-18-2022 End: 03-19-2022 ambulatory MARIANA ZAMORA Facility:[facility] Start: 03-17-2022 End: 03-18-2022 ambulatory SARAH BATH Facility:[facility] Start: 03-11-2022 End: 03-12-2022 [facility] Start: 03-11-2022 Telephone encounter Mariana Zamora [...] (Primary Dx) Start: 02-25-2022 Orders Only Mariana Zamora MD Work Phone: Gynecology Comment on above: Vulvar cancer (HCC) (Primary Dx) Start: 02-15-2022 End: 02-16-2022 ambulatory [facility] Facility:[facility] Start: 02-09-2022 End: 02-09-2022 ambulatory MD Sarah Valentino Work Phone: [facility] Work Phone: Start: 02-09-2022 End: 02-09-2022 Patient encounter procedure MD Sarah Valentino Work Phone: [facility] Tod[facility]za[facility]px[facility] Testing Start: 02-08-2022 ambulatory [facility] Faci lity:[facility] Start: 02-02-2022 End: 02-02-2022 ambulatory MD Sarah Valentino Work Phone: [facility] Work Phone: Start: 02-02-2022 End: 02-02-2022 Patient encounter procedure MD Sarah Valentino Work Phone: [facility] Start: 01-25-2022 End: 01-25-2022 ambulatory Hetal Bowers Other [employer] Other Start: 01-25-2022 Office outpatient vi sit 15 minutes Hetal Elissa [facility] Start: 01-22-2022 End: 01-23-2022 ambulatory DAVION MAURICE Facility:[facility] Start: 01-13-2022 End: 01-14-2022 ambulatory SARAH VALENTINO Facility:[facility] Start: 01-13-2022 End: 01-13-2022 ambulatory SARAH VALENTINO Facility:[facility] Start: 12-22-2021 End: 12-22-2021 ambulatory HEMANT OROZCO . Facility:[facility] Start: 07-08-2021 End: 07-08-2021 ambulatory Hetal Elissa Other [employer] Other Start: 07-08-2021 Office outpatient vi sit 25 minutes Hetal Elissa [facility] Start: 04-29-2021 End: 04-29-2021 ambulatory Nellie Gilbert Other [employer] Other Start: 04-29-2021 Telephone encounter Nellie Gilbert [facility] Nephrology Start: 10-19-2020 Evaluation and management of inpatient Sarah Valentino Work Phone: -[facility] Start: 05-13-2017 End: 05-18-2017 Evaluation and management of [facility] Procedures Date Procedure Procedure Detail Performing Clinician Start: 12-13-2023 Cul bact xcpt urine blood/stool aerobic isol Amirah Lipscomb STRAIGHTENING PRESS OPERATOR.BIOLOGY FACULTY MEMBER Work Phone: Start: 12-13-2023 Echocardiography JONNIE FIGUEROA Start: 12-13-2023 Radiologic exam ches t 2 views Lynnette Figueroa MD Work Phone: Start: 11-06-2023 Antibody screen GEOVANNA FIGUEROA Comment on above: Order Comment: Speci men Type: BLOOD SPECIMENOrdering Facility: [facility] Address: [address] [place] [address] Performed By: #### T SCR ####CC MAIN BLOOD BANKCLIA [id number] [place] [id number] [facility] Start: 11-03-2023 Antibody screen GEOVANNA FIGUEROA Comment on above: Order Comment: Speci men Type: BLOOD SPECIMENOrdering Facility: [facility] Address: [address] [place] [address] Performed By: #### T SCR ####CC MAIN BLOOD BANKCLIA [id number] [address] Start: 10-27-2023 Antibody screen GEOVANNA FIGUEROA Comment on above: Order Comment: Speci men Type: BLOOD SPECIMENOrdering Facility: [facility] Address: [address] [place] [address] Performed By: #### T SCR ####CC MAIN BLOOD BANKCLIA [id number] [address] Start: 10-19-2020 Diagnostic radiograp hy of abdomen Sarah Valentino Work Phone: Start: 06-16-2017 Mammography Sarah ramachandran MD Work Phone: Start: 05-18-2017 POCT GLUCOSE BRODIE AMES Start: 05-18-2017 BIPAP BRODIE AMES Start: 05-18-2017 PULSE OXIMETRY, CONTINUOUS BRODIE RESTREPO Start: 05-18-2017 POC GLUCOSE FINGERSTICK BRODIE RESTREPO Start: 05-18-2017 IP CONSULT TO HOME C ARE NEEDS BRODIE RESTREPO Start: 05-18-2017 DISCHARGE PATIENT BRAXTON Ascencio LAURO Start: 05-18-2017 POCT GLUCOSE BRODIE AMES Start: 05-18-2017 BIPAP BRODIE AMES Start: 05-18-2017 MDI TREATMENT BRODIE MARTINEZ Start: 05-18-2017 NEBULIZER TX INTERMITTENT BRODIE RESTREPO Start: 05-18-2017 PULSE OXIMETRY, CONTINUOUS BRODIE RESTREPO Start: 05-18-2017 POC GLUCOSE FINGERSTICK BRODIE RESTREPO Start: 05-18-2017 POCT GLUCOSE BRODIE AMES Start: 05-18-2017 BIPAP BRODIE NOV AKOVIC Start: [...] AKOVIC Start: 05-17-2017 MDI TREATMENT BRODIE NO VAKOVIC Start: 05-17-2017 NEBULIZER TX INTERMITTENT BRODIE NOVAKOVIC Start: 05-17-2017 PULSE OXIMETRY, CONTINUOUS BRODIE NOVAKOVIC Start: 05-17-2017 POC GLUCOSE FINGERSTICK BRODIE NOVAKOVIC Start: 05-17-2017 BIPAP BRODIE NOV AKOVIC Start: 05-17-2017 PULSE OXIMETRY, CONTINUOUS BRODIE NOVAKOVIC Start: 05-17-2017 NEBULIZER TX INTERMITTENT BORDIE NOVAKOVIC Start: 05-17-2017 POCT GLUCOSE BRODIE NOV AKOVIC Start: 05-17-2017 BIPAP BRODIE NOV AKOVIC Start: 05-17-2017 PULSE OXIMETRY, CONTINUOUS BRODIE NOVAKOVIC Start: 05-17-2017 POC GLUCOSE FINGERSTICK BRODIE NOVAKOVIC Start: 05-17-2017 TRANSFER PATIENT BRODIE NOVAKOVIC Start: 05-17-2017 POCT GLUCOSE BRODIE [...] RACHE L NOVAKOVIC Start: 05-17-2017 BIPAP BRODIE MARROQUINMICHEAL Start: 05-17-2017 PULSE OXIMETRY, CONTINUOUS BRODIE JANETTMIRNASTEPHANIE Start: 05-16-2017 POC GLUCOSE FINGERSTICK BRODIE JANETTMIRNASTEPHANIE Start: 05-16-2017 POCT GLUCOSE BRODIE JANETT AMES Start: 05-16-2017 BIPAP BRODIE MARROQUINMICHEAL Start: 05-16-2017 MDI TREATMENT BRODIE NO AYDEIC Start: 05-16-2017 NEBULIZER TX INTERMITTENT BRODIE JANETTMIRNAVIC Start: 05-16-2017 PULSE OXIMETRY, CONTINUOUS BRODIE NOVMIRNAVIC Start: 05-16-2017 POC GLUCOSE FINGERSTICK BRODIE LAURO Start: 05-16-2017 BIPAP BRODIE ROWLAND KWAKU Start: 05-16-2017 PULSE OXIMETRY, CONTINUOUS BRODIE JANETTMIRNAVIC Start: 05-16-2017 NEBULIZER TX INTERMITTENT BRODIE LAURO Start: 05-16-2017 TRANSFER PATIENT BRODIE LAURO Start: 05-16-2017 POCT GLUCOSE BRODIE JANETT AMES Start: 05-16-2017 BIPAP BRODIE JANETT AMES Start: 05-16-2017 PULSE OXIMETRY, CONTINUOUS BRODIE JANETTMIRNASTEPHANIE Start: 05-16-2017 POC GLUCOSE FINGERSTICK BRODIE LAURO Start: 05-16-2017 NASOGASTRIC TUBE MAINTENANCE BRODIE KHOURYSTEPHANIE Start: 05-16-2017 MISCELLANEOUS NURSIN G CARE ORDER (SPECIFY) BRODIE LAURO Start: 05-16-2017 DIET CARB CONTROL RACARSEN L LAURO Start: 05-16-2017 POC GLUCOSE FINGERSTICK BRODIE LAURO Start: 05-16-2017 POCT GLUCOSE BRODIE JANETT AMES Start: 05-16-2017 BIPAP BRODIE JANETT AMES Start: 05-16-2017 MDI TREATMENT BRODIE MARTINEZ Start: 05-16-2017 NEBULIZER TX INTERMITTENT BRODIE ROWLANDKWAKU Start: 05-16-2017 PULSE OXIMETRY, CONTINUOUS BRODIE JANETTMIRNASTEPHANIE Start: 05-16-2017 CBC WITH AUTO DIFFERENTIAL BRODIE LAURO Start: 05-16-2017 HEMOGLOBIN A1C BRODIE Ricci ERNESTINA Start: 05-16-2017 POCT GLUCOSE BRODIE JANETT AMES Start: 05-16-2017 BIPAP RBODIEAYDE AMES Start: 05-16-2017 PULSE OXIMETRY, CONTINUOUS BRODIE JANETTMIRNAVIC Start: 05-16-2017 NEBULIZER TX INTERMITTENT BRODIE NOVAKOVIC Start: 05-16-2017 INTAKE AND OUTPUT RACHE L NOVMIRNAVIC Start: 05-16-2017 BIPAP BRODIE NOV AKMICHEAL Start: 05-16-2017 PULSE OXIMETRY, CONTINUOUS BRODIE NOVAKOVIC Start: 05-15-2017 POC GLUCOSE FINGERSTICK BRODIE NOVMIRNAVIC Start: 05-15-2017 POCT GLUCOSE BRODIEAYDE AMES Start: 05-15-2017 BIPAP BRODIE NOV KWAKU Start: 05-15-2017 MDI TREATMENT BRODIE NO VAKOVIC Start: 05-15-2017 NEBULIZER TX INTERMITTENT BRODIE NOVAKOVIC Start: 05-15-2017 PULSE OXIMETRY, CONTINUOUS BRODIE NOVAKOVIC Start: 05-15-2017 PT EVAL AND TREAT RACHE L JANETTMIRNAVIC Start: 05-15-2017 POC GLUCOSE FINGERSTICK BRODIE JANETTMIRNASTEPHANIE Start: 05-15-2017 MISCELLANEOUS NURSIN G CARE ORDER (SPECIFY) BRODIE LAURO Start: 05-15-2017 BIPAP BRODIEAYDE AMES Start: 05-15-2017 PULSE OXIMETRY, CONTINUOUS BRODIE NOVAKOVIC Start: 05-15-2017 MDI TREATMENT BRODIE NO AYDEIC Start: 05-15-2017 BASIC METABOLIC PANEL R ACHEL NOVKWAKU Start: 05-15-2017 HEMOGLOBIN AND HEMAT OCRIT, BLOOD BRODIE LAURO Start: 05-15-2017 NEBULIZER TX INTERMITTENT BRODIE NOVMIRNAVIC Start: 05-15-2017 POC GLUCOSE FINGERSTICK BRODIE LAURO Start: 05-15-2017 POCT GLUCOSE BRODIE AMES Start: 05-15-2017 BIPAP BRODIEAYDE AMES Start: 05-15-2017 PULSE OXIMETRY, CONTINUOUS BRODIE NOVAKOVIC Start: 05-15-2017 NEBULIZER TX INTERMITTENT BRODIE NOVAKOVIC Start: 05-15-2017 IP CONSULT TO GI BRODIE NOVKWAKU Start: 05-15-2017 POC GLUCOSE FINGERSTICK BRODIEAYDE RESTREPO Start: 05-15-2017 POCT GLUCOSE BRODIE AMES Start: 05-15-2017 BIPAP BRODIE NOV CARAMICHEAL Start: 05-15-2017 PULSE OXIMETRY, CONTINUOUS BRODIE NOVMIRNAVIC Start: 05-15-2017 CBC WITH AUTO DIFFERENTIAL BRODIE RESTREPO Start: 05-15-2017 POCT GLUCOSE BRODIE AMES Start: 05-15-2017 BIPAP BRODIE AMES Start: 05-15-2017 PULSE OXIMETRY, CONTINUOUS BRODIE NOVMIRNAVIC Start: 05-15-2017 INTAKE AND OUTPUT RACHE L NOVAKOVIC Start: 05-15-2017 BIPAP BRODIE MARROQUINOVIC Start: 05-15-2017 PULSE OXIMETRY, CONTINUOUS BRODIE NOVAKOVIC Start: 05-14-2017 POCT GLUCOSE BRODIE AMES Start: 05-14-2017 BIPAP BRODIEAYDE MARROQUINOVIC Start: 05-14-2017 PULSE OXIMETRY, CONTINUOUS BRODIE NOVAKOVIC Start: 05-14-2017 POC GLUCOSE FINGERSTICK BRODIEAYDE KHOURYVIC Start: 05-14-2017 BIPAP BRODIE AMES Start: 05-14-2017 PULSE OXIMETRY, CONTINUOUS BRODIE NOVAKOVIC Start: 05-14-2017 WOUND OSTOMY EVAL AND TREAT BRODIEAYDE KHOURYVIC Start: 05-14-2017 POC GLUCOSE FINGERSTICK BRODIE KHOURYVIC Start: 05-14-2017 POCT GLUCOSE BRODIE AMES Start: 05-14-2017 EXTUBATION BRODIE AMES Start: 05-14-2017 PULSE OXIMETRY, CONTINUOUS BRODIE NOVAKOVIC Start: 05-14-2017 BIPAP BRODIE AMES Start: 05-14-2017 Ct angiography chest w/contrast/noncontrast BRODIE RESTREPO Start: 05-14-2017 POC GLUCOSE FINGERSTICK BRODIE KHOURYVIC Start: 05-14-2017 POCT GLUCOSE BRODIE AMES Start: 05-14-2017 PULSE OXIMETRY, CONTINUOUS BRODIE NOVMIRNAVIC Start: 05-14-2017 BASIC METABOLIC PANEL R ACHEL IRAIDAVIC Start: 05-14-2017 CBC WITH AUTO DIFFERENTIAL BRODIE KHOURYVIC Start: 05-14-2017 LACTIC ACID, WHOLE BLOOD BRODIE KHOURYVIC Start: 05-14-2017 MAGNESIUM BRODIE AMES Start: 05-14-2017 TROPONIN BRODIE AMES Start: 05-14-2017 Radiologic exam ches t single view BRODIE KHOURYVIC Start: 05-14-2017 ARTERIAL BLOOD GAS, POC BRODIE NOVMIRNAVIC Start: 05-14-2017 POCT GLUCOSE BRODIE AMES Start: 05-14-2017 PULSE OXIMETRY, CONTINUOUS BRODIE NOVAKOVIC Start: 05-14-2017 DAILY WEIGHTS BRODIE MARTINEZ Start: 05-14-2017 INTAKE AND OUTPUT RACHE L NOVAKOSTEPHANIE Start: 05-14-2017 PULSE OXIMETRY, CONTINUOUS BRODIE LAURO Start: 05-14-2017 ARTERIAL BLOOD GAS, POC BRODIE LAURO Start: 05-14-2017 HEAD OF BED 60 DEGRE ES OR LESS BRODIE LAURO Start: 05-14-2017 NURSING COMMUNICATION R NAFISASonu LAURO Start: 05-14-2017 ELEVATE HEELS OFF OF BED BRODIE RESTREPO Start: 05-14-2017 TURN PATIENT BRODIE MARROQUINMICHEAL Start: 05-13-2017 BASIC METABOLIC PANEL R NAFISASonu LAURO Start: 05-13-2017 CBC WITH AUTO DIFFERENTIAL BRODIE LAURO Start: 05-13-2017 MAGNESIUM BRODIE JANETT MAES Start: 05-13-2017 PHOSPHORUS BRODIE ROWLAND KWAKU Start: 05-13-2017 TROPONIN BRODIE ROWLAND KWAKU Start: 05-13-2017 BLOOD GAS, ARTERIAL BENEDICT MESSER LAURO Start: 05-13-2017 PULSE OXIMETRY, CONTINUOUS BRODIE LAURO Start: 05-13-2017 POCT GLUCOSE BRODIE AMES Start: 05-13-2017 POC GLUCOSE FINGERSTICK BRODIE LAURO Start: 05-13-2017 EKG 12-LEAD BRODIE MARROQUINMICHEAL Start: 05-13-2017 ARTERIAL BLOOD GAS, POC BRODIE LAURO Start: 05-13-2017 THOMSON/UROLOGY CARE INDIRA GRIFFIN LAURO Start: 05-13-2017 INTAKE AND OUTPUT BRAXTON L JANETTKWAKU Start: 05-13-2017 IP CONSULT TO GENERA L SURGERY BRODIE RESTREPO Start: 05-13-2017 MISCELLANEOUS NURSIN G CARE ORDER (SPECIFY) BRODIE RESTREPO Start: 05-13-2017 NOTIFY PHYSICIAN (SPECIFY) BRODIE RESTREPO Start: 05-13-2017 PLACE INTERMITTENT P NEUMATIC COMPRESSION DEVICE BRODIE RESTREPO Start: 05-13-2017 TELEMETRY MONITORING RA LIBIA RESTREPO Start: 05-13-2017 TOBACCO CESSATION EDUCATION BRODIE RESTREPO Start: 05-13-2017 FULL CODE BRODIE JANETT AMES Start: 05-13-2017 VITAL SIGNS BRODIE ROWLAND KWAKU Start: 05-13-2017 Radiologic exam ches t single view BRODIE RESTREPO Start: 05-13-2017 ABDOMINAL BINDER BRODIE RESTREPO Start: 05-13-2017 IP CONSULT TO CRITICAL CARE BRODIE RESTREPO Start: 05-13-2017 RESTRAINTS NON-VIOLE NT OR [id number] BRODIE RESTREPO Start: 05-13-2017 SURGICAL PATHOLOGY INDIRA EL LAURO Start: 05-13-2017 POC GLUCOSE FINGERSTICK BRODIE RESTREPO Start: 05-13-2017 TRANSFER PATIENT BRODIE LAURO Start: 05-13-2017 TRANSFER PATIENT BRODIEAYDE RESTREPO Start: 05-13-2017 SURGICAL PATHOLOGY INDIRA EL LAURO Start: 05-13-2017 URINE CULTURE BRODIE DEEPA MARTINEZ Start: 05-13-2017 POC GLUCOSE FINGERSTICK BRODIE RESTREPO Start: 05-13-2017 URINE CULTURE BRODIE ARENAS JUAN Start: 05-13-2017 CULTURE BLOOD #1 BRODIE RESTREPO Start: 05-13-2017 BIPAP BRODIE AMES Start: 05-13-2017 PATIENT STATUS (FROM ED OR OR/PROCEDURAL) BRODIE RESTREPO Start: 05-13-2017 LACTIC ACID, WHOLE BLOOD BRODIE RESTREPO Start: 05-13-2017 APTT BRODIE AMES Start: 05-13-2017 BASIC METABOLIC PANEL R EVI RESTREPO Start: 05-13-2017 CBC WITH AUTO DIFFERENTIAL BRODIE RESTREPO Start: 05-13-2017 HEPATIC FUNCTION PANEL BRODIE RESTREPO Start: 05-13-2017 PROTIME-INR BRODIE AMES Start: 05-13-2017 IP CONSULT TO HOSPITALIST BRODIE RESTREPO Start: 05-13-2017 IP CONSULT TO GENERA L SURGERY BRODIE RESTREPO Start: 05-13-2017 MRSA DNA PROBE, NASAL R EVI RESTREPO Plan of Treatment Date Care Activity Detail Author Start: 06-03-2026 Diabetes Screening Diabetes Screening [facility] Start: 01-21-2026 Diabetes Screening Diabetes Screening [facility] Start: 10-19-2025 DIABETES SCREEN DIABETES SCREEN [facility] Start: 08-26-2025 Cholesterol [Mass/volume] in Serum or Plasma Cholesterol [facility] Start: 07-14-2025 DIABETES SCREEN DIABETES SCREEN [facility] Start: 03-10-2025 DIABETES SCREEN DIABETES SCREEN [facility] Start: 12-12-2024 Complete blood count Hemoglobin/Hematocrit [facility] Start: 12-12-2024 Creatinine measurement Serum Creatinine [facility] Start: 11-20-2024 Complete blood count Hemoglobin/Hematocrit [facility] Start: 11-20-2024 Creatinine measurement Serum Creatinine [facility] Start: 11-07-2024 Hepatitis B surface antibody level LDL Cholesterol [facility] Start: 11-06-2024 Complete blood count Hemoglobin/Hematocrit [facility] Start: 11-06-2024 Creatinine measurement Serum Creatinine [facility] Start: 10-26-2024 Complete blood count Hemoglobin/Hematocrit [facility] Start: 10-26-2024 Creatinine measurement Serum Creatinine [facility] Start: 10-18-2024 BP Controlled (<130/80) BP Controlled (<130/80) [facility] Start: 07-07-2024 BP Controlled (<130/80) BP Controlled (<130/80) [facility] Start: 03-29-2024 Hemoglobin A1c measurement HbA1C [facility] Start: 02-22-2024 End: 02-22-2024 Follow-up encounter 02/22/2024 2:15 PM EDT Visit (SP) Office Gynecology Oncology [address] [place] [address] [place] [address] Mariana Zamora MD [address] [id number] 4 MONTH FOLLOW UP Gynecology Oncology Comment on above: 4 MONTH FOLLOW UP Start: 02-21-2024 End: 02-21-2024 Patient encounter procedure 02/21/2024 3:30 PM EDT Office Visit Vascular Medicine [address] [place] [address] TYPE A DISSECTION Vascular Medicine Comment on above: TYPE A DISSECTION Start: 02-21-2024 End: 02-21-2024 Patient encounter procedure 02/21/2024 10:30 AM EDT Office Visit Cardiology [address] [place] [address] Yimi Ferrer MD [address] [facility] [place] [address] TYPE A DISSECTION Cardiology Comment on above: TYPE A DISSECTION Start: 02-21-2024 End: 02-21-2024 ambulatory 02/21/2024 10:00 AM EDT Results Only Cardiology [address] [place] [address] TYPE A DISSECTION Cardiology Comment on above: TYPE A DISSECTION Start: 02-14-2024 End: 02-14-2024 Patient encounter procedure Radiology Comment on above: 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 3 MONTH FOLLOW UP Start: 01-13-2024 End: 01-13-2024 Patient encounter procedure 01/13/2024 2:30 PM EDT Office Visit Plastic Surgery [address] [address] Bennie Payne MD [address] [place] [address] 6 month follow up Plastic Surgery Comment on above: 6 month follow up Start: 01-01-2024 Influenza vaccination [facility] Start: 12-26-2023 End: 12-26-2023 Patient encounter procedure 12/26/2023 3:00 PM EDT Office Visit Cardiothoracic [address] [id number] Amirah Lipscomb, STRAIGHTENING PRESS OPERATOR.BIOLOGY FACULTY MEMBER [address] [place] [address] WOUND CHECK Cardiothoracic Comment on above: WOUND CHECK Start: 12-26-2023 End: 12-26-2023 ambulatory 12/26/2023 2:45 PM EDT Results Only [address] [address] [address] [place] [address] [address] [address] [address] Comment on above: bmp Start: 12-15-2023 End: 03-15-2024 Basic metabolic 2000 panel - Serum or Plasma BASIC METABOLIC PANEL Lab Routine Hypokalemia Expected: 12/15/2023, Expires: 03/15/2024 [facility] Work Phone: Comment on above: Expected: 12/15/2023, Expires: Start: 12-13-2023 End: 12-13-2023 Patient encounter procedure Radiology Comment on above: SURGERY FOLLOW UP Disorder of artery o r arteriole (HCC) [I77.9] HOSPITAL DISCHARGE J 08-30-13 Start: 12-13-2023 End: 12-13-2023 Follow-up encounter 12/13/2023 12:45 AM EDT Results Only Cardiology [address] [place] [address] SURGERY FOLLOW UP Cardiology Comment on above: SURGERY FOLLOW UP Start: 12-13-2023 End: 12-13-2023 ambulatory 12/13/2023 12:30 AM EDT Results Only [address] [id number] [place] [address] CBC CMP [facility] J4 Draw Station Comment on above: CBC CMP Start: 12-08-2023 End: 12-08-2023 Patient encounter procedure 12/08/2023 3:30 PM EDT Office Visit [facility] [address] [place] [address] Mauro Bates MD [address] [place] [address] [facility] Start: 12-02-2023 Hemoglobin A1c measurement HbA1C [facility] Start: 10-30-2023 Influenza vaccination Influenza Vaccine (#1) [facility] Comment on above: Postponed from 12/31/2022 (Insurance / F inancial) Start: 10-27-2023 End: 10-27-2023 As-aort grf w/card byp f/aortic dissection ASCENDING AORTA GRAFT WITH CARDIOPULMONARY BYPASS VIA J INCISION (MIS) FOR DISSECTION Heart disease 10/27/2023 12:18 PM EDT [facility] V[facility] Start: 09-16-2023 Medicare Annual Wellness (AWV) Medicare Annual Wellness (AWV) [facility] Start: 08-02-2023 End: 08-02-2023 Patient encounter procedure 08/02/2023 3:45 PM EDT Office Visit [facility] [address] [place] [address] Mauro Bates MD [address] [place] [address] [facility] Start: 06-03-2023 End: 06-03-2023 Patient encounter procedure 06/03/2023 2:20 PM EST Office Visit [facility] [address] [place] [address] Sarah Valentino MD [address] [place] [address] [facility] Start: 05-02-2023 Behavioral Health Screening Behavioral Health Screening [facility] Start: 05-02-2023 Depression Assessment Depression Assessment [facility] Start: 04-22-2023 Hemoglobin A1c measurement Diabetes: Hemoglobin A1C [facility] Start: 03-10-2023 Creatinine measurement Serum Creatinine [facility] Start: 12-31-2022 Covid-19 Vaccine () Covid-19 Vaccine () [facility] Start: 12-31-2022 Influenza vaccination [facility] Start: 05-02-2022 DEPRESSION ASSESSMENT DEPRESSION ASSESSMENT [facility] Start: 03-10-2022 End: 2022 PT panel - Platelet poor plasma by Coagulation assay [facility] Work Phone: Comment on above: Expected: 03/10/2022, Expires: 3 Start: 03-10-2022 End: 2022 TYPE + SCREEN [facility] Work Phone: Comment on above: Expected: 03/10/2022, Expires: 3 Start: 01-30-2022 Influenza vaccination Influenza Vaccine (#1) [facility] Start: 12-31-2021 Influenza vaccination INFLUENZA (#1) [facility] Start: 08-27-2021 COVID-19 VACCINE (4 - Booster for Pfizer series) COVID-19 VACCINE (4 - Booster for Pfizer series) [facility] Start: 08-27-2021 COVID-19 VACCINE (4 - Pfizer risk series) COVID-19 VACCINE (4 - Pfizer risk series) [facility] Start: 05-02-2021 DEPRESSION ASSESSMENT DEPRESSION ASSESSMENT [facility] Start: 2020 RSV Vaccine (1 - 1-dose 60+ series) RSV Vaccine (1 - 1-dose 60+ series) [facility] Start: 05-03-2020 Glaucoma screening Diabetes: Retinopathy Screening [facility] Start: 06-16-2018 Screening for malignant neoplasm of breast [facility] Start: 11-03-2015 Shingles (RZV) Vaccine (2 of 3) Shingles (RZV) Vaccine (2 of 3) [facility] Start: 11-03-2015 SHINGRIX VACCINE (1 of 2) SHINGRIX VACCINE (1 of 2) [facility] Start: 11-03-2015 Shingrix Vaccine (2 of 3) Shingrix Vaccine (2 of 3) [facility] Start: 01-09-2014 PNEUMOCOCCAL (2 - PCV) PNEUMOCOCCAL (2 - PCV) [facility] Start: 01-09-2014 Pneumococcal vaccination [facility] c Start: 2010 Influenza vaccination LUNG CANCER SCREENING [facility] Start: 2010 Measurement of occult blood in single stool specimen FIT [facility] Start: 2010 Screening for malignant neoplasm of colon CRC Screening [facility] Start: 2010 Screening for malignant neoplasm of lung Lung Cancer Screening [facility] Start: 2010 SHINGRIX VACCINE (1 of 2) SHINGRIX VACCINE (1 of 2) [facility] Start: 2005 COLOGUARD (FIT-DNA) COLOGUARD (FIT-DNA) [facility] Start: 2005 Colonoscopy COLONOSCOPY [facility] Start: 2005 COLORECTAL CANCER SCREENING COLORECTAL CANCER SCREENING [facility] Start: [address] COLONOGRAPHY [facility] Start: 2005 DIABETES SCREEN DIABETES SCREEN [facility] Start: 2005 FECAL OCCULT BLOOD FECAL OCCULT BLOOD [facility] Start: 2005 Lipid 1996 panel - Serum or Plasma Lipid Screening [facility] Start: 2005 Lipid panel Lipid Screening [facility] Start: 2005 LIPID SCREEN LIPID SCREEN [facility] Start: 2005 Screening for malignant neoplasm of colon [facility] Start: 2005 SIGMOIDOSCOPY SIGMOIDOSCOPY [facility] Start: 2000 Mammography [facility] Start: 2000 Screening for malignant neoplasm of breast Mammography [facility] Start: 02-12-1998 Urine microalbumin profile [facility] Start: 1990 HPV TESTING HPV TESTING [facility] Start: 1990 Screening for malignant neoplasm of cervix [facility] Start: 1990 Zoledronic acid therapy Alpha-1 Antitrypsin Deficiency Screening [facility] Start: 1981 PAP TESTING PAP TESTING [facility] Start: 1981 Screening for malignant neoplasm of cervix [facility] Start: 1979 SHINGRIX VACCINE (1 of 2) SHINGRIX VACCINE (1 of 2) [facility] Start: 1979 Urine microalbumin profile DTAP,TDAP,TD (1 - Tdap) [facility] Start: 1978 Annual PCP Team Chronic Disease Visit Annual PCP Team Chronic Disease Visit [facility] Start: 1978 Anxiety Screening Anxiety Screening [facility] Start: 1978 BP Controlled (<130/80) BP Controlled (<130/80) [facility] Start: 1978 Depression Screening Depression Screening [facility] Start: 1978 Hepatitis B surface antibody level LDL Cholesterol [facility] Start: 1978 HEPATITIS C SCREENING HEPATITIS C SCREENING [facility] Start: 1978 Hepatitis C screening [facility] Start: 1978 HIV SCREENING HIV SCREENING [facility] Start: 1978 HIV screening HIV Screening [facility] Start: 1978 Spirometry Spirometry [facility] Start: 1978 Tetanus + diphtheria + acellular pertussis vaccine (product) Tdap Booster [facility] Start: 1975 HIV screening HIV Test [facility] Start: 1971 Screening for malignant neoplasm of cervix Cervical Cancer Screening [facility] Start: 1970 Diabetic foot examination Diabetic Foot Exam [facility] Start: 1970 Glaucoma screening Dilated Retinal Exam [facility] Start: 1970 Hepatitis B screening Urine Albumin:Creatinine Ratio [facility] Start: 1966 PNEUMOCOCCAL (1 - PCV) PNEUMOCOCCAL (1 - PCV) [facility] Start: 1960 COVID-19 VACCINE (#1) COVID-19 VACCINE (#1) [facility] Start: 1960 Screening for malignant neoplasm of colon Colonoscopy [facility] Bacteria identified in Urine by Culture URINE CULTURE Microbiology Routine Dysuria Ordered: 06/25/2022 [facility] Work Phone: Comment on above: Ordered: 06/25/2022 Bacteria identified in Wound by Culture ABSCESS AND WOUND CULTURE WITH GRAM STAIN Microbiology Routine Wound disruption, initial encounter 12/13/2023 4:19 PM EDT [facility] CT SIM PLANNING RADIATION ONCOLOGY CT SIM PLANNING RADIATION ONCOLOGY Radiology Routine Vulvar cancer (HCC) Ordered: 04/14/2022 [facility] Work Phone: Comment on above: Ordered: 04/14/2022 End: 11-21-2024 ECG COMPLETE ECG COMPLETE ECG Routine 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) 1 Occurrences starting 11/22/2023 until 11/21/2024 [facility] Work Phone: Comment on above: 1 Occurrences starting 11/22/2023 until 11/21/2024 End: 11-21-2024 Echocardiography ECHO Cardiology Routine 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) 1 Occurrences starting 11/22/2023 until 11/21/2024 [facility] Comment on above: 1 Occurrences starting 11/22/2023 until 11/21/2024 End: 09-30-2023 NM PET/CT SKULL-THIGH SUBSEQUENT NM PET/CT SKULL-THIGH SUBSEQUENT Radiology Routine Vulvar cancer (HCC) 1 Occurrences starting 09/08/2022 until 09/30/2023 [facility] Work Phone: Comment on above: 1 Occurrences starting 09/08/2022 until 09/30/2023 OUTSIDE SURG PATH SL GABRIELLA REVIEW OUTSIDE SURG PATH SLIDE REVIEW Lab Routine Vulvar cancer (HCC) Ordered: 03/02/2022 [facility] Work Phone: Comment on above: Ordered: 03/02/2022 Patient Education Laceration Rep air With Stitches ED [facility] Work Phone: Patient referral [facility] Work Phone: End: 03-27-[address] attenuation skull base mid-thigh NM PET/CT SKULL-THIGH INITIAL Radiology Routine Vulvar cancer (HCC) 1 Occurrences starting 02/25/2022 until 03/27/2023 [facility] Work Phone: Comment on above: 1 Occurrences starting 02/25/2022 until 03/27/2023 End: 04-09-[address] attenuation skull base mid-thigh NM PET/CT SKULL-THIGH INITIAL Radiology Routine Vulvar cancer (HCC) 1 Occurrences starting 03/10/2022 until 04/09/2023 [facility] Work Phone: Comment on above: 1 Occurrences starting 03/10/2022 until 04/09/2023 Urinalysis complete panel - Urine URINALYSIS, WITH MICROSCOPIC Lab Routine Dysuria Ordered: 06/25/2022 [facility] Work Phone: Comment on above: Ordered: 06/25/[address] [facility] Immunizations Immunization Date Immunization Notes Care Provider [facility] 12-16-2023 tetanus toxoid, redu ruben diphtheria toxoid, and acellular pertussis vaccine, adsorbed DO Amrit Isaac Work Phone: [facility] 03-16-2022 seasonal influenza, intradermal, preservative free Kenendy Garcia MD Work Phone: [facility] 03-16-2022 influenza virus vacc ine, unspecified formulation Mariana Zamora MD Work Phone: [facility] 07-02-2021 COVID-19 mRNASusi (Pfizer) MD Sarah Valentino Work Phone: [facility] 08-12-2020 COVID-19 mRNA,[id number] (Pfizer) Sarah Valentino Work Phone: [facility] 08-11-2020 Pfizer Purple Cap SARS-CoV-2 Vaccination Sarah Valentino MD Work Phone: [facility] 07-21-2020 COVID-19 mRNA,[id number] [id number] (Pfizer) Sarah Valentino Work Phone: [facility] 07-20-2020 Pfizer Purple Cap SARS-CoV-2 Vaccination Sarah Valentino MD Work Phone: [facility] 01-11-2020 influenza, high dose seasonal, preservative-free Et3 Resource [facility] 01-11-2020 Influenza, High-dose Seasonal, Quadrivalent, Preservative Free Sarah Valentino MD Work Phone: [facility] 01-11-2020 influenza virus vacc ine, unspecified formulation [employer] [facility] 05-03-2018 seasonal influenza, intradermal, preservative free Et[employer] [facility] 03-18-2017 influenza nasal, unspecified formulation Kennedy Garcia MD Work Phone: [facility] 03-18-2017 influenza virus vacc ine, unspecified formulation Et[employer] [facility] 03-18-2017 influenza, seasonal, injectable Sarah Valentino MD Work Phone: [facility] 03-10-2017 seasonal influenza, intradermal, preservative free [employer] [facility] 03-18-2016 influenza, injectabl e, quadrivalent, preservative free Kennedy Garcia MD Work Phone: [facility] 09-08-2015 zoster vaccine, live [facility] 02-06-2015 influenza, seasonal, injectable, preservative free Kennedy [...] [facility] 07-04-2008 seasonal influenza, intradermal, preservative free Sarha Valentino MD Work Phone: [facility] [facility] 02-11-1998 poliovirus vaccine, inactivated Et3 Resource [facility] 02-11-1998 TD(adult) unspecifie d formulation Et3 [facility] 02-10-1998 poliovirus vaccine, inactivated Sarah Valentino MD Work Phone: [facility] 02-10-1998 TD(adult) unspecifie d formulation Sarah Valentino MD Work Phone: [facility] 02-16-1996 hepatitis B vaccine, adult dosage Et3 [facility] 02-15-1996 hepatitis B vaccine, adult dosage Sarah Valentino MD Work Phone: [facility] Payers Date Payer Category Payer Medicaid [id number] 2020 Medicare [id number] 2014 Medicare [id number] 2009 Private Health Insurance [id number] [id number] 1960 Unknown [id number] 2.16.840.1.346225.3.579.2.732 1960 Unknown [id number] 2.16.840.1.493398.3.579.2.593 1960 Unknown [id number] 2.16.840.1.324429.3.579.2.593 1960 Unknown [id number] 2.16.840.1.999670.3.579.2.593 1960 Unknown [id number] 2.16.840.1.523419.3.579.2.593 1960 Unknown [id number] 2.16.840.1.727723.3.579.2.593 1960 Unknown [id number] 2.16.840.1.288695.3.579.2.593 1960 Unknown [id number] 2.16.840.1.516792.3.579.2.593 1960 Unknown [id number] 2.16.840.1.820501.3.579.2.593 1960 Unknown [id number] 2.16.840.1.190944.3.579.2.593 1960 Unknown [id number] 2.16.840.1.840651.3.579.2.593 1960 Unknown [id number] 2.16.840.1.804318.3.579.2.593 1960 Unknown [id number] 2.16.840.1.412495.3.579.2.593 1960 Unknown [id number] 2.16.840.1.766910.3.579.2.593 1960 Unknown [id number] 2.16.840.1.190936.3.579.2.593 1960 Unknown [id number] 2.16.840.1.865888.3.579.2.593 1960 Unknown [id number] 2.16.840.1.733116.3.579.2.593 1960 Unknown [id number] 2.16.840.1.311436.3.579.2.593 1960 Unknown [id number] 2.16.840.1.573359.3.579.2.593 1960 Unknown [id number] 2.16.840.1.806913.3.579.2.727 1960 Unknown [id number] 2.16.840.1.043092.3.579.2.125 9 1960 Unknown [id number] 2.16.840.1.307847.3.579.2.125 9 1960 Unknown [id number] 2.16.840.1.578546.3.579.2.125 9 1960 Unknown [id number] 2.16.840.1.244009.3.579.2.125 9 1960 Unknown [id number] 2.16.840.1.426842.3.579.2.125 9 1959 Medicaid [id number] 1959 Medicare [id number] [id number] Self-pay Self Pay [id number] Unknown HCAP/HFA/FAP Active [id number] Social History Date Type Detail Facility Start: 10-19-2020 End: 04-02-2022 Tobacco smoking status OHIS Ex-smoker (finding) [facility] Start: 1960 Sex Assigned At Female [facility] Start: 09-08-2022 End: 12-15-2022 Sex Assigned At [facility] [employer] Other Start: 05-12-1971 End: 12-16-2023 Tobacco smoking status OHIS Smoker (finding) [facility] Tobacco smoking stat us [facility] Tobacco smoking consumption unknown [facility] Work Phone: Start: 1960 Sex Assigned At Not on file [facility] Start: 05-12-1971 End: 05-12-2016 History of tobacco use Cigarette Smoker [facility] Start: 03-10-2022 End: 09-08-2022 Cigarettes smoked current (pack per day) - Reported 2 [facility] Start: 03-10-2022 End: 04-02-2022 Tobacco use and exposure Smokeless tobacco non-user [facility] Start: 03-10-2022 End: 12-13-2023 Alcohol intake Ex-drinker (finding) [facility] Start: 02-28-2022 End: 04-02-2022 Exposure to SARS-CoV-2 (event) Not sure [facility] National Score (1-100), lower number is lower risk 79 [facility] Start: 02-24-2022 Gender identity Identifies as female gender (finding) [facility] Start: 10-28-2022 Tobacco smoking status NHIS Occasional tobacco smoker [facility] Start: 10-28-2022 Alcohol Comment Caffeine intake: coffee, soda/pop [facility] Medical Equipment Procedure Code Equipment Code Equipment Origin al Text Equipment Identifier Dates Insertion, catheter, dialysis, tunneled, with imaging guidance [id number] FDA Start: 10-29-2020 Insertion, catheter, dialysis, tunneled, with imaging guidance [id number] FDA Start: 10-29-2020 Insertion, catheter, dialysis, tunneled, with imaging guidance [id number] [facility] Start: 10-29-2020 [id number] Start: 05-07-2023 End: 08-31-2023 True Metrix Bloo d Glucose Test test strip [id number] Start: 12-16-2022 EASY TOUCH 32 ga uge x 3/16 ndle [id number] Start: 05-07-2023 Graft Gelweave Vascutek 30mm Straight Polyester Gelatin Woven 40cm - [id number] Start: 10-27-2023 Graft Hemashield Randolph 8mm Straight 2 Velour Collagen Polyester 30cm - [id number] Start: 10-27-2023 [place] Thk1.65mm P tfe 4x.5in Cardiovascular Sterile - [id number] Start: 10-27-2023 [place] Thk1.65mm P tfe [id number] Cardiovascular Patch Sterile - [id number] Start: 10-27-2023 Goals Date Patient Goal Desired Activity /State Personal health goal Functional Status Date Assessment Result Facility 10-19-2020 Functional status Patient Not at [facility] Mental Status Date Assessment Result Facility 10-19-2020 Cognitive function Cognitive Sta tus Patient Not at Baseline [facility] Clinical Notes 07-08-2021 to 12-21-2023 Telephone Encounter - Amirah Lipscomb APRN.CNP - 12/21/2023 5:49 PM EDTTelephone Encounter - Amirah Lipscomb APRN.CNP - 12/21/2023 5:49 PM EDTOrientElizabethRT(R) - 12/13/2023 1:00 PM EDT Note Date & Type Note Facility 12-21-2023 Telephone encounter Note MSI wound culture results below. Discussed with ID fellow today Dr Cathie Ferro she advised to place e consult for ID ID E consult placed for help with management of culture result and need for IV access as only IV Vanco is susceptible. Many Corynebacterium striatum Abnormal Few Staphylococcus epidermidis Abnormal No further workup Susceptibility Corynebacterium striatum (1) Antibiotic Interpretation Method Status Penicillin G Resistant MINIMUM INHIBITORY CONCENTRATION (VIZION) Final Ceftriaxone Resistant MINIMUM INHIBITORY CONCENTRATION (VIZION) Final Erythromycin Resistant MINIMUM INHIBITORY CONCENTRATION (VIZION) Final Clindamycin Nonsusceptible MINIMUM INHIBITORY CONCENTRATION (VIZION) Final Vancomycin Susceptible MINIMUM INHIBITORY CONCENTRATION (VIZION) [facility] 12-21-2023 Miscellaneous Notes MSI wound culture results below. Discussed with ID fellow today Dr Cathie Ferro she advised to place e consult for ID ID E consult placed for help with management of culture result and need for IV access as only IV Vanco is susceptible. Many Corynebacterium striatum Abnormal Few Staphylococcus epidermidis Abnormal No further workup Susceptibility Corynebacterium striatum (1) Antibiotic Interpretation Method Status Penicillin G Resistant MINIMUM INHIBITORY CONCENTRATION (VIZION) Final Ceftriaxone Resistant MINIMUM INHIBITORY CONCENTRATION (VIZION) Final Erythromycin Resistant MINIMUM INHIBITORY CONCENTRATION (VIZION) Final Clindamycin Nonsusceptible MINIMUM INHIBITORY CONCENTRATION (VIZION) Final Vancomycin Susceptible MINIMUM INHIBITORY CONCENTRATION (VIZION) documented in this encounter [facility] 12-21-2023 Telephone encounter Note I called pt to discuss issues that came up this weekend pt called this weekend to report that a prior authorization was needed for potassium supplements. she was instructed to talk to pharmacist re other OTC options. pt was also to have repeat labs yesterday at [facility]- I have not received fax from the lab at this time so unsure of the result of BMP. advised pt to send labs to us at fax # [phone] pt has appt her on Thursday 12/28 for labs and wound check. - pt reminded of appt . [facility] 12-21-2023 Miscellaneous Notes I called pt to discuss issues that came up this weekend pt called this weekend to report that a prior authorization was needed for potassium supplements. she was instructed to talk to pharmacist re other OTC options. pt was also to have repeat labs yesterday at [facility]- I have not received fax from the lab at this time so unsure of the result of BMP. advised pt to send labs to us at fax # [phone] pt has appt her on Thursday 12/28 for labs and wound check. - pt reminded of appt . documented in this encounter [facility] 12-19-2023 Telephone encounter Note Images from the original note were not included. [facility] [place] Phone Encounter DATE of SERVICE: 12/19/2023 TIME of SERVICE: 5:14 PM Status: Urgent Service/Provider: Cardiac Surgery Lynnette Figueroa M.D. Reason for call: Medication Issue/Question Contact information: [phone] Resolution: Sent to Populr Comments: Patient calling because her pharmacy (pill pack) states they need a pre-auth for the potassium prescription. She was seen in OPD 12/12 with K level of 3.1. Also, the Demadex appears to have been sent to [facility] pharmacy rather than pill pack. She states she is wheelchair bound and does not have anyone to go to pharmacy for her. She can be reached at above telephone number. Toya Payne RN Date of Resolution: 12/19/2023 Time of Resolution 5:14 PM [facility] 12-19-2023 Miscellaneous Notes Images from the original note were not included. [facility] Phone Encounter DATE of SERVICE: 12/19/2023 TIME of SERVICE: 5:14 PM Status: Urgent Service/Provider: Cardiac Surgery Lynnette Figueroa M.D. Reason for call: Medication Issue/Question Contact information: [phone] Resolution: Sent to Populr Comments: Patient calling because her pharmacy (pill pack) states they need a pre-auth for the potassium prescription. She was seen in OPD 12/12 with K level of 3.1. Also, the Demadex appears to have been sent to [facility] pharmacy rather than pill pack. She states she is wheelchair bound and does not have anyone to go to pharmacy for her. She can be reached at above telephone number. Toya Payne RN Date of Resolution: 12/19/2023 Time of Resolution 5:14 PM documented in this encounter [facility] 12-17-2023 Telephone encounter Note Images from the original note were not included. [facility] Follow Up Phone Encounter Date: December 17, 2023 Time: 4:01 PM Service Provider: Cardiac Surgery Lynnette Figueroa M.D. Reason for call: Called patient, who states the she is having trouble getting the medications as her potassium needs a prior authorization. She wanted to let Leelee know and requested a phone call on Tuesday. Advised patient to speak with pharmacist to find over the counter alternative if possible. She sates understanding. Elida Killian APRN.MATTHEW [facility] Work Phone: 12-17-2023 Miscellaneous Notes Images from the original note were not included. [facility] Follow Up Phone Encounter Date: December 17, 2023 Time: 4:01 PM Service Provider: Cardiac Surgery Lynnette Figueroa M.D. Reason for call: Called patient, who states the she is having trouble getting the medications as her potassium needs a prior authorization. She wanted to let Leelee know and requested a phone call on Tuesday. Advised patient to speak with pharmacist to find over the counter alternative if possible. She sates understanding. Elida Killian APRN.BIOLOGY FACULTY MEMBER documented in this encounter [facility] 12-13-2023 History of Presen t illness Narrative Images from the original note were not included. [facility] Department of Cardiovascular Medicine DEPARTMENT OF CARDIAC SURGERY OUTPATIENT VISIT DATE December 13, 2023 OUTPATIENT VISIT TYPE POSTOPERATIVE Felisha Diallo is a 63 year old female who presents who is here for post operative follow up HPI: Surgeon: Lynnette Figueroa MD S/P on 10/27/2023: Ascending Aorta and Hemiarch Replacement with 30 mm Gelweave. Re-suspension of the Aortic Valve. Right Axillary Artery Cut Down. Findings: Chronic aortic dissection, true lumen severely compressed in ascending aorta, dissection tear identified above STJ and extended just above but not into the R coronary ostia, no dissection tear in the arch Distal anastomosis reinforced with felt strips given delicate aortic tissue Discharged on 11/22/23 to SN[facility] PAST MEDICAL HISTORY No date: Asthma No date: Bipolar depression (HCC) No date: Chronic kidney disease, stage III (moderate) (HCC) No date: COPD (chronic obstructive pulmonary disease) (HCC) No date: DM (diabetes mellitus), type 2 (HCC) No date: Former smoker No date: High blood cholesterol No date: Hydradenitis No date: Migraines No date: On home O2 No date: On home O2 Comment: pt reports not using No date: Sleep disorder No date: 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) No date: Vulvar cancer (HCC) PAST SURGICAL HISTORY No date: ABDOMINOPLASTY No date: ANES HRNA RPR UPR ABD LMBR&VENTRAL HERNIA&DEHISC 2017: BOWEL RESECTION HX No date: EXPLORATORY LAPAROTOMY, CELIOTOMY-SP No date: LAPAROSCOPIC OMENTECTOMY Comment: Open, necrotic omentum from ventral hernia No date: PANNICULECTOMY ALLERGIES Allergen Reactions Azithromycin Unknown Corticosteroids (Gl* Swelling Doxycycline Other: See Comments, Swelling Current Outpatient Medications Medication Sig ALPRAZolam (XANAX) 0.25 mg tablet Take 0.5 tablets by mouth once daily as needed for anxiety for up to 30 days. lamoTRIgine (LAMICTAL) 100 mg tablet Take 1 tablet by mouth two times a day. montelukast (SINGULAIR) 10 mg tablet Take 1 tablet by mouth daily at bedtime. polyethylene glycol 3350 17 gram packet 1 Packet by ORAL/FEEDING TUBE route two times a day. Dissolve dose in 4 - 8 ounces of liquid and take as directed. topiramate (TOPAMAX) 200 mg tablet Take 1 tablet by mouth two times a day. acetylcysteine (MUCOMYST) 200 mg/mL (20 %) solution Inhale 2 mL as instructed two times a day. aluminum-magnesium hydroxide-simethicone 200-200-20 mg/5 mL suspension Take 30 mL by mouth every 4 hours as needed (Second Line Therapy). aspirin 81 mg chewable tablet 1 tablet by ORAL/FEEDING TUBE route once daily. benzocaine-menthol (CHLORASEPTIC) 6-10 mg lozenges Take 1 Lozenge by mouth every 2 hours as needed. bisacodyl (DULCOLAX) 10 mg supp 1 Suppository by RECTAL route once daily as needed. calcium carbonate (TUMS) 500 mg chew Take 1-2 tablets by mouth three times a day as needed (First Line Therapy). budesonide (PULMICORT) 0.5 mg/2 mL nebulizer solution Use 4 mL via nebulizer two times a day. cloNIDine HCl (CATAPRES) 0.3 mg tablet Take 1 tablet by mouth every 8 hours. carboxymethylcellulose sodium (CELLUVISC) 1 % dlgl Use 1-2 Drops in both eyes as needed. guaiFENesin (MUCINEX) 600 mg 12 hr tablet Take 1 tablet by mouth every 12 hours as needed (cough). heparin 5,000 unit/mL injection Inject 1.5 mL subcutaneously every 8 hours. melatonin 3 mg tablet Take 2 tablets by mouth daily at bedtime. MULTIVITAMIN-FERROUS FUMARATE-FOLIC ACID 18 MG-400 MCG TABLET Take 1 tablet by mouth daily with breakfast. potassium chloride ER (KLOR-CON) 20 mEq tablet Take 1 tablet by mouth two times a day. pantoprazole DR (PROTONIX) 20 mg tablet Take 1 tablet by mouth daily at 6 am. sulfamethoxazole-trimethoprim (BACTRIM) 400-80 mg per tablet Take 1 tablet by mouth every 12 hours. torsemide (DEMADEX) 20 mg tablet Take 2 tablets by mouth once daily. senna-docusate (SENNA-S) 8.6-50 mg per tablet Take 2 tablets by mouth two times a day. acetaminophen (TYLENOL) 325 mg tablet Take 2 tablets by mouth every 6 hours as needed for pain. amiodarone (PACERONE) 200 mg tablet Take 1 tablet by mouth once daily for 13 doses. miconazole 2 % powder Apply 1 application to affected area two times a day. glipiZIDE (GLUCOTROL) 10 mg tablet Take 2 tablets (20 mg) by mouth daily before breakfast. dapagliflozin propanediol (FARXIGA) 5 mg tablet Take 1 tablet by mouth daily with breakfast. tirzepatide (MOUNJARO) 10 mg/0.5 mL pen injector Inject 10 mg subcutaneously one time a week. chlorhexidine (HIBICLENS) 4 % external liquid Lather onto affected areas on the body and rinse, avoid face, once a week in the shower docusate sodium (COLACE) 100 mg capsule Take 1 capsule by mouth once daily as needed. ipratropium-albuterol (DUONEB) 0.5 mg-3 mg(2.5 mg base)/3 mL nebu q 6 HR. EASY TOUCH 32 gauge x 3/16 ndle umeclidinium (INCRUSE ELLIPTA) 62.5 mcg/actuation inhaler Inhale 1 Puff as instructed once daily. LANTUS SOLOSTAR U-100 INSULIN 100 unit/mL (3 mL) 65 Units. rosuvastatin (CRESTOR) 10 mg tablet fluticasone-salmeterol (ADVAIR) 500-50 mcg/dose dsdv venlafaxine ER (EFFEXOR XR) 150 mg 24 hr capsule fluticasone (FLONASE) 50 mcg/actuation nasal spray fluconazole (DIFLUCAN) 100 mg tablet one time a week. albuterol HFA (PROVENTIL HFA, VENTOLIN HFA) 90 mcg/actuation inhaler COLETTE WESLEY, PEN 40 mg/0.4 mL pen kit famotidine (PEPCID) 20 mg tablet tolterodine ER (DETROL LA) 4 mg 24 hr capsule No current facility-administered medications for this visit. Chief Complaints: i was d/c from facility last week. i dont know what my meds are. Discharge Post Operative Course: at home lives alone, has [facility] 3 x week Pain scale :Yes LOCATION: msi PAIN SCALE: 3 on a scale of 0-10 Appetite: decreased appetite Activity: WC bound - pivots to and from chair Elimination: constipation has been a problem Last BM 5 days ago, urination is normal Sleep: no problems with sleep Mood: normal Incisions/Wounds: Not applicable Review of Systems: HEENT: Negative for fevers since discharge, chills, night sweats, and blurry vision Cardiac: Denies significant problems, chest pain, orthopnea, and + LE lymphedema Respiratory: denies dyspnea, cough, asthma, orthopnea, reports SOBE Musculoskeletal: No history of joint swelling, joint pain, or loss of range of motion. Neuro: Denies neurological complaints, headaches, dizziness, visual changes, or paresthesia Physical Exam: BP 144/76 Pulse 92 Temp 37.4 C (99.3 F) (Oral) Ht 165.1 cm (5' 5 ) Wt (!) 140.6 kg (310 lb) LMP (LMP Unknown) SpO2 91% BMI 51.59 kg/m Appearance: well groomed, obese, white female, in no acute distress Neck: No neck vein distention Cardiac: regular S1, S2, No murmur, No rub Lungs: Clear breath sounds bilaterally with decreased air entry at the bases bilaterally Abdomen: soft, non tender, obese, Normal bowel sounds Extremities: Jack LE lymphedema Sternum: stable, no click Sternotomy site: upper MSI healing, clean, dry and intact, no cellulitis, lower msi with 3 small open wound noted on sternotomy Wound: NA and Measurements: 0.5 cm each x 3 small wound lower msi Procedures: N/A IMPRESSION & PLAN: Surgeon: Lynnette Figueroa MD S/P on 10/27/2023: Ascending Aorta and Hemiarch Replacement with 30 mm Gelweave. Re-suspension of the Aortic Valve. Right Axillary Artery Cut Down. Findings: Chronic aortic dissection, true lumen severely compressed in ascending aorta, dissection tear identified above STJ and extended just above but not into the R coronary ostia, no dissection tear in the arch Distal anastomosis reinforced with felt strips given delicate aortic tissue - ASA, BP control. SBP controlled. continue Clonidine. CTA chest completed and reviewed by CTS. CTA A/P per vascular and Dr Figueroa was completed 11/10/23 but inadequate contrast for complete visualization. May be repeated as outpatient per Dr. Figueroa with the 3 month follow up in [facility] (requested). Echo 12/13/2023 INTERATRIAL SEPTUM There is no evidence of intracardiac shunting as detected by Doppler. CONCLUSIONS: - Technically difficult exam due to body habitus and suboptimal positioning. - Exam indication: s/p Type A dissection repair - The left ventricle is normal in size. Left ventricular systolic function is normal. EF = 61 5% (2D 4-ch.) Normal left ventricular diastolic function. - The visualized aorta is dilated with a maximal dimension of 4.3 cm. - S/P aortic valve resuspension. There is mild (1+) aortic valve regurgitation. The peak gradient is 16 mmHg, the mean gradient is 8 mmHg and the dimensionless valve index is 0.89. - Exam was compared with the prior echocardiographic exam performed on 10/27/2023 (OR Echo). S/p AV resuspension & ascending aortic replacement. CXR December 13, 2023 Image reviewed Final report Lungs and pleura: Evaluation is compromised due to patient's body habitus. No consolidation. Stable elevation of the left hemidiaphragm with subsegmental atelectasis in the adjacent left lung base. The left costophrenic angle is minimally blunted, which could be due to smooth pleural thickening or trace effusion. No right pleural effusion. No pneumothorax. EKG December 13, 2023 NORMAL SINUS RHYTHM Vent. rate 98 BPM MS interval 168 ms QRS duration 92 ms QT/QTcB 342/436 ms Labs December 13, 2023 Latest Reference Range & Units 11/21/23 07:19 12/13/23 13:25 WBC 3.70 - 11.00 k/uL 6.11 9.27 RBC 3.90 - 5.20 m/uL 3.59 (L) 3.52 (L) Hemoglobin 11.5 - 15.5 g/dL 11.2 (L) 11.1 (L) Hematocrit 36.0 - 46.0 % 36.4 35.6 (L) Platelet Count 150 - 400 k/uL 278 347 (L): Data is abnormally low Latest Reference Range & Units 11/21/23 07:19 12/13/23 13:25 Sodium 136 - 144 mmol/L 135 (L) 135 (L) Potassium 3.7 - 5.1 mmol/L 4.0 3.1 (L) Chloride 98 - 107 mmol/L 95 (L) 94 (L) CO2 22 - 30 mmol/L 29 26 BUN 7 - 21 mg/dL 17 23 (H) Creatinine 0.58 - 0.96 mg/dL 1.34 (H) 1.53 (H) Glucose 74 - 99 mg/dL 186 (H) 167 (H) (L): Data is abnormally low (H): Data is abnormally high Atrial Fibrillation post op A fib. d/c on Amio , completed course EKG today NSR Chronic RLE lymphedema- Venous stasis to bilateral legs with thick plaques to bilateral shins. Kervin/purplish discoloring bilateral. DP palpable, and confirmed with doppler. LE wound clinic appt next week 12/20/23 (managed by wound clinic pre op. only LE wounds) SOPHIA on CKD/Hypervolemia: (Baseline SCr per care everywhere ~1.0-1.1) Oliguric night of surgery required fluid resuscitation and IV Lasix. Aggressively diuresed with lasix infusion postop. SCr stable (1.3 today 11/20). Continue diuresis with Demadex. Scr today 1.53 off Demadex since d/c from [facility] Constipation no BM in 5 days, on - taken Sunday 12/10 abd morbidly obese with active BS x 4. passing gas, nontender, pt currently miralax, senna,colace, juice, water, coffee pt to add MOM, prune juice, ducolax supp f/u with PCP if constipation persist Hypokalemia K today 3.1. pt is off diuretic and potassium since d/c from [facility] last week potassium supplements sent to pill pack - 80 meq twice daily for 2 days. pt to have repeat labs (BMP) next week (unable to get transportation today or tomm. pt has to arrange for transportation next week) order faxed to [facility] @ [phone] pt voices understanding of instruction Wound Dispruption lower MSI with 3 small open wounds approx 0.5 cm round , scant serous drainage, mild redness, sternum stable. Plan - wound culture obtained - monitor results and adjust prn. (pt is already on Bactrim and diflucan for Hidradenitis suppurativa ). - wash with soap and water, swab with betadine and pack each site with nu guaze and cover with dsd, - wound care orders sent to [facility] at [phone] - pt to f/u in 2 weeks in cts opd - 12/26/23 scheduled Pic 12/13/2023 Summary: Follow up with PCP next week appt 12/29 Follow up with seed sales manager in 4-6 weeks. Call CTS OPD with any issues, concerns or worsening symptoms. Post op care and discharge orders reviewed with the patient- all questions were answered. Surgical sites healing without complication Discussed new medications, dosage, route of administration and side effects Reviewed walking program at home Reviewed diet guidelines for recovery from surgery Return to the clinic prn with signs or symptoms of infection, fevers, SOB, or pleural effusion SBE prophylaxis reviewed Discussed wound care Amirah Lipscomb APRN.BIOLOGY FACULTY MEMBER documented in this encounter [facility] 12-13-2023 Note [facility] 12-13-2023 History of Presen t illness Narrative Radiology Service Progress Note PATIENT NAME: Felisha Diallo DATE OF SERVICE: December 13, 2023 TIME: 1:23 PM PATIENT IDENTITY VERIFICATION COMPLETED USING TWO (2) IDENTIFIERS: Name and Date of confirmed by patient verbally. FALL SCREENING: Has the patient had 2 falls in the last year or 1 fall with injury or currently using an Ambulatory Assistive Device (Walker, Cane, Wheelchair, Crutches, etc.)? No PATIENT GENDER DATA: Female. status: : No status: NO. PATIENT RELEVANT IMPLANT DATA REVIEWED: Not Applicable PATIENT PRESENTS WITH AN IMPLANTABLE OR ATTACHED AMMONIA REFRIGERATION TECHNICIAN: No RADIOLOGY DEPARTMENT: General X-ray: Exam(s) Completed: Chest X-Ray PERIPHERAL IV DATA: Not applicable SIGNED BY: RT Dru(R) December 13, 2023 1:23 PM documented in this encounter [facility] 12-13-2023 Note [facility] 11-23-2023 Telephone encounter Note [place] [facility] nurse called patient for follow up from recent hospital discharge, but no answer. Left message on voicemail including 22/11 resource nurse phone number. Cheri Sosa RN [facility] 11-23-2023 Miscellaneous Notes [facility] nurse called patient for follow up from recent hospital discharge, but no answer. Left message on voicemail including 22/11 resource nurse phone number. Cheri Sosa, RN documented in this encounter [facility] 11-22-2023 Note [facility] 11-21-2023 Note [facility] 11-20-2023 Note [facility] 11-20-2023 Note [facility] 11-19-2023 Note [facility] 11-19-2023 Note [facility] 11-18-2023 Note [facility] 11-17-2023 Note [facility] 11-16-2023 Note [facility] 11-15-2023 Note [facility] 11-14-2023 Note [facility] 11-13-2023 Note [facility] 11-12-2023 Note [facility] 11-11-2023 Note [facility] 11-11-2023 Note [facility] 11-10-2023 Note [facility] 11-10-2023 Note [facility] 11-09-2023 Note [facility] 11-08-2023 Note [facility] 11-08-2023 Note [facility] 11-08-2023 Note [facility] 11-07-2023 Telephone encounter Note FMLA paperwork for patient's child completed. A copy of paperwork and transmittal confirmation filed accordingly. Anabel Wade [facility] 11-07-2023 Miscellaneous Notes FMLA paperwork for patient's child completed. A copy of paperwork and transmittal confirmation filed accordingly. Anabel Wade Received FMLA paperwork for patient's Mom. After completion, paperwork is to be faxed to [phone] Attn: Marly Upon completion, copy of paperwork and transmittal confirmation will be filed accordingly. Signed PHI release attached Unknown Anabel Wade documented in this encounter [facility] 11-07-2023 Note [facility] 11-06-2023 Note [facility] 11-06-2023 Note [facility] 11-05-2023 Note [facility] 11-05-2023 Note [facility] 11-04-2023 Telephone encounter Note Received FMLA paperwork for patient's Mom. After completion, paperwork is to be faxed to [phone] Attn: Kyles Ford Upon completion, copy of paperwork and transmittal confirmation will be filed accordingly. Signed PHI release attached Unknown Anabel Wade [facility] 11-04-2023 Note [facility] 11-03-2023 Note [facility] 11-03-2023 Note [facility] 11-02-2023 Note [facility] 11-01-2023 Note [facility] 11-01-2023 Note [facility] 10-31-2023 Note [facility] 10-30-2023 Note [facility] 10-30-2023 Note [facility] 10-29-2023 Note [facility] 10-28-2023 Note [facility] 10-28-2023 Note [facility] 10-28-2023 Note [facility] 10-28-2023 Note [facility] 10-27-2023 Note [facility] 10-27-2023 Note [facility] 10-27-2023 Note [facility] 10-27-2023 Note [facility] 10-27-2023 History of Presen t illness Narrative Summary: IRB 21: [facility] IRB : BRIAN PI: Dr. Pickett Study Visit: Pre-Procedure Visit / Consent I met with the patient for the pre-procedure visit for the B-SAFER Study. Reaffirmed that the patient still wishes to participate in the study and continues to consent to the study. Modified Boyd Score: 4 = Moderately severe disability; unable to walk without assistance and unable to attend to own bodily needs without assistance. Discussed with the patient the importance of follow up in the study. She verbalized understanding. Next study visit will be in clinic Patient contact information reaffirmed and updated. Coordinator contact information provided to the patient. Education provided: Protocol required tests/procedures and Follow up requirements/schedule Materials dispensed: None Bennie Christensen, Research Coordinator Pager #: [phone] documented in this encounter [facility] 10-19-2023 History of Presen t illness Narrative [...] of blood from the area. She saw spanish translator who referred her to general surgery for [...] FINAL DIAGNOSIS Vaginal mass, right, biopsy (S [id number], 02/11/2022, A1-A2): -Invasive squamous cell carcinoma, HPV-associated. [...] severe bacterial pneumonia resulting in sepsis hospitalized [facility] Renal failure following this admission PAST SURGICAL HISTORY Procedure Laterality Date BOWEL RESECTION 2016 Family History Problem Relation Age of [...] recently oral abx were decreased by her circuit designer. Denies any bleeding. Patient states she has [...] encounter [facility] 10-19-2023 Note [facility] 07-08-2023 Note HNO ID: [id number] Author: BEN BALDWIN ST Service: ? Author Type: Gyroscopic Instrument Mechanic Type: Progress Notes Filed: 07/08/2023 17:00 Note Text: DATE OF PHOTOS: 07/08/2023 Body Part: Abdomen ST Efra July 08, 2023 5:00 PM [facility] 07-08-2023 History of Presen t illness Narrative DATE OF PHOTOS: 07/08/2023 Body Part: Abdomen ST Efra July 08, 2023 5:00 PM documented in this encounter [facility] 07-08-2023 Note [facility] 07-08-2023 History of Presen t illness Narrative [...] FINAL DIAGNOSIS Vaginal mass, right, biopsy (S [id number], 02/11/2022, A1-A2): -Invasive squamous cell carcinoma, HPV-associated. [...] PAIN: yes OB HISTORY: PARA:1 Lives in: [facility] RECENT IMAGIN08/18/2021 Pelvic US Impression: Exam [...] current everyday user Substances: Nicotine, Flavoring Devices: Datanomic Substance Use Topics Alcohol use: Not Currently [...] [facility] 07-01-2023 Miscellaneous Notes Received call from pharmacy, stated ointment was prescribed, however cream is generic, but ointment is brand name. Advised switch to cream would be acceptable. MAR updated. Rebecca Jeffers APRN.BIOLOGY FACULTY MEMBER documented [facility] of blood from the area. She saw spanish translator who referred her to general surgery for [...] FINAL DIAGNOSIS Vaginal mass, right, biopsy (S [id number], 02/11/2022, A1-A2): -Invasive squamous cell carcinoma, HPV-associated. [...] severe bacterial pneumonia resulting in sepsis hospitalized [facility] Renal failure following this admission PAST [...] vulva and groin, was recommended soap from circuit designer that she was unable to obtain through [...] encounter [facility] 06-22-2023 Note [facility] 03-16-2023 History of Presen t illness Narrative [...] of blood from the area. She saw spanish translator who referred her to general surgery for [...] FINAL DIAGNOSIS Vaginal mass, right, biopsy (S [id number], 02/11/2022, A1-A2): -Invasive squamous cell carcinoma, HPV-associated. [...] severe bacterial pneumonia resulting in sepsis hospitalized [facility] Renal failure following this admission PAST [...] issues with appetite. Has found a new circuit designer that she is happy with. Her ECOG [...] encounter [facility] 03-16-2023 Note [facility] 01-20-2023 Evaluation note Encounter Date Diagnosis Assessment [...] ordered the work-up to rule it out. [facility] Other 08-16-2023 History of Present illness Narrative* [...] of blood from the area. She saw spanish translator who referred her to general surgery for [...] FINAL DIAGNOSIS Vaginal mass, right, biopsy (S [id number], 02/11/2022, A1-A2): -Invasive squamous cell carcinoma, HPV-associated. [...] severe bacterial pneumonia resulting in sepsis hospitalized [facility] Renal failure following this admission PAST [...] well without complaints. Has seen a new circuit designer and coming off of bactrim for HS [...] Straightforward documented [facility] Evaluation note* Encounter Date Diagnosis Assessment Notes Treatment Notes Treatment Clinical Notes Nov, Secondary hyperparathyroidism (ICD-10 - N25.81) [facility] Other 05-30-2023 NoteHNO ID: [id number] Author: Mariana Zamora MD Service: ? Author Type: Physician Type: Progress Notes Filed: 09/30/2022 8:21 AM Note Text: TELEVISIT PROGRESS NOTE I have communicated my name and active licensure. The patient's identity and physical location were verified at the time of this visit. Either the patient or their legal apparel trimmings sales representative has been informed of the risks and [...] of blood from the area. She saw spanish translator who referred her to general surgery for [...] FINAL DIAGNOSIS Vaginal mass, right, biopsy (S [id number], 02/11/2022, A1-A2): -Invasive squamous cell carcinoma, HPV-associated. [...] severe bacterial pneumonia resulting in sepsis hospitalized [facility] Renal failure following this admission PAST [...] today to discuss PET results. OBJECTIVE: Deferred 2/2 telemedicine visit ASSESSMENT: 62 year old female [...] to avoid clitorectomy. Decline (more content not included)...[id number] History of Present illness Narrative* Mariana Zamora MD - 09/28/2022 3:47 PM EDT TELEVISIT PROGRESS NOTE I have communicated my name and active licensure. The patient's identity and physical location wereverified at the time of this visit. Either the patient or their legal apparel trimmings sales representative has been informed of the risks and [...] of blood from the area. She saw spanish translator who referred her to general surgery for [...] FINAL DIAGNOSIS Vaginal mass, right, biopsy (S [id number], 02/11/2022, A1-A2): -Invasive squamous cell carcinoma, HPV-associated. [...] severe bacterial pneumonia resulting in sepsis hospitalized [facility] Renal failure following this admission PAST [...] follow up RT DIAGNOSIS: Vulvar Cancer HPI: 1Juliann Diallo is a 61 year old female [...] of blood from the area. She saw spanish translator who referred her to general surgery for [...] severe bacterial pneumonia resulting in sepsis hospitalized [facility] Renal failure following this admission PAST [...] SHREYA inhibitor, ARB or Kerendia. Jun, Catarino dickerson kid w cr kid I-IV (ICD-10 - [...] goal. Continue oral ergocalciferol 50,000 unit weekly. [facility] Other 03-08-2023 History of Present illness Narrative* Mariana Zamora [...] of blood from the area. She saw spanish translator who referred her to general surgery for [...] FINAL DIAGNOSIS Vaginal mass, right, biopsy (S [id number], 02/11/2022, A1-A2): -Invasive squamous cell carcinoma, HPV-associated. [...] severe bacterial pneumonia resulting in sepsis hospitalized [facility] Renal failure following this admission PAST [...] 06/25/2022 12:11 PM EST Orders faxed to [facility] at [phone]. Sanjana Olivas LPN * Telephone Encounter - Sanjana Olivas LPN - 06/25/2022 12:02 PM EST I notified Felisha that Dr. Garcia is ordering a UA, C+S. She doesn't want to give a sample at this time stating she's pretty sure it's not a UTI. I will fax the order to [facility] so they have the order should she [...] Garcia MD - 06/16/2022 12:00 AM EST [facility] Radiation Oncology Department RADIATION ONCOLOGY - [...] weeks. Staff Physician Kennedy Garcia M.D. / NRS 34:06 AM Electronically Signed cc: Mariana Zamora MD ([facility]) aSrah Valentino MD [address] [place] [address] Via documented in this encounterOhio[facility] Miscellaneous Notes* Telephone Encounter - Inga Dalton RN - 06/10/2022 8:53 AM EST Call placed to Riya at [facility]. Orders given for vaginal wound care as directed per order. Inga Dalton RN * Telephone Encounter - Inga Dalton RN - 06/09/2022 1:[address] Garcia- please sign pended orders and we will contact [facility] to arrange for them toadd this [...] FOLLOW UP NOTE: [facility] Date of service:06/09/22 TOPICS ADDRESSED: transportation. PLAN: Continue follow up as needed Assigned SW listed in Care Team tab: Yes SW received a call from Carolyn, Radiation Therapist stating that this Patient will be ending her radiation treatments on 06/16/22 barring that she does not miss any appointment in between and the , ONEIDA called Amirah at [facility] regarding the above Amirah will contact [employer] to cancel all rides after 06/26/22. ONEIDA also notified [facility] that there services are no longer needed. SW will remain available and will follow up as appropriate. CADY Barrett documented in this encounterOhio[facility] Nurse Note* Inga Dalton RN - 06/09/2022 12:28 PM EST Status: Post-menopausal. Inga Dalton, RN documented in this encounterOhio[facility]02-03-2023 Miscellaneous Notes* Telephone Encounter - TEA Barrett - 06/04/2022 1:10 PM EST SOCIAL WORK FOLLOW UP NOTE: [facility] Date of service:06/04/22 Felisha Diallo is being seen for a follow up social work visit. Today's visit includes: patient TOPICS ADDRESSED: community resources and transportation PLAN: Continue follow up as needed Assigned SW listed in Care Team tab: Yes SW received a call from Amirah at [facility] stating that they will pay for the Patient's transportation on 06/17/22 since there was date in May that the Patient did not take a ride. ONEIDA called Patient to review her updated radiation [...] listed in Care Team tab: Yes [facility] agreed to cover the cost of the 4 remaining rides to complete the Patient's radiation treatments (06/17, 06/22, 06/23 and 06/24). ONEIDA emailed [employer] who has providing rides for this Patient on Tuesdays, Wednesdays and and they will book the above listed dates for rides. [employer] is charging $90 round trip. [facility] is aware and agreeable. [employer] willbill [facility] directly at the end of the month. ONEIDA submitted a letter to [facility] with the above request. SW will [...] and waiting on the lidocaine cream from [facility]. She will plan to be in [...] and will ask for an estimated charge. ONEIDA will talk with [facility] about financial assistance once the amount for the 3 rides is known. Awaiting acall back from [employer]. CADY Barrett documented in this encounterOhio[facility]23 Miscellaneous Notes* Telephone Encounter - Lilly Warner RPh - 05/24/2022 12:51 PM EST Have to send to a compounding pharmacy.m Spoke to Felisha already about sending to [facility]. Neil Warner rPh documented in this [...] of blood from the area. She saw spanish translator who referred her to general surgery for [...] severe bacterial pneumonia resulting in sepsis hospitalized [facility] Renal failure following this admission PAST [...] listed in Care Team tab: Yes SW heard back from Amirah at [facility]. [employer] will extend their wait time for this Patient to 60 minutes and they will accommodate the new arrival time 05/12/22 of 2pm. SW will contact Patient confirm that she is aware of the above. SW called and confirmed with this Patient that [...] Hospital12-29-2022 Miscellaneous Notes* Telephone Encounter - TEA Barrett - 04/29/2022 4:21 PM EST SOCIAL WORK [...] review her upcoming transportation schedule.Please refer to SW note from 04/21/22for the transportation plan for when radiation treatments start on 05/04/22. Patient was appreciativeof the call. SW will remain available and will follow up as appropriate. CADY Barrett documented in this encounterOhio[facility]12-[facility]-2022 Miscellaneous Notes* Telephone Encounter - TEA Barrett - 04/21/2022 9:52 AM EST SOCIAL WORK FOLLOW UP NOTE: [facility] Date of service:04/21/22 Felisha Diallo is being seen for a follow up social work visit. Today's visit includes: patient TOPICS ADDRESSED: community resources and transportation PLAN: Communicate pertinent medical/psychosocial information to Cancer Center team and Continue follow up as needed Assigned SW listed in Care Team tab: Yes SW called Patient and discussed her transportation plan for her upcoming radiation treatments. [facility] has agreed to pay for 20 round trip rides through [employer] . Patient will contact her health insurance provider and schedule a ride through them for every Tuesday. Patientwill have her son provide her with a ride every Tuesday. [employer] will transport the Patient , Wednesdays and . There are 2 days (06/17/22 and 06/22/22) that the [facility] not able to pay for the ride. SW will continue to work with the Patient on possible solutions for those 2 dates. SW will remain available and will follow up as appropriate. CADY Barrett documented in this encounterOhio[facility]12-20-2022 Miscellaneous Notes* Telephone Encounter - TEA Barrett - 04/20/2022 4:13 PM EST SOCIAL WORK FOLLOW UP NOTE: [facility] Date of service:04/20/22 TOPICS ADDRESSED: community resources and transportation PLAN: Continue follow up as needed Assigned SW listed in Care Team tab: Yes SW spoke with Kevin at [facility]. They are able to pay for 20 round trip rides through [employer]. SW called Patient x 2 to provide an update and was unable to reach her. SW will try again tomorrow. CADY Barrett documented in this encounterOhiohealth [facility]12-19-2022 Miscellaneous Notes* Telephone Encounter - TEA Barrett - 04/19/2022 3:11 PM EST SOCIAL WORK FOLLOW UP NOTE: [facility] Date of service:04/19/22 TOPICS ADDRESSED: transportation PLAN: Continue follow up as needed Assigned SW listed in Care Team tab: Yes SW received a call from ONEIDA Menezes at [facility] ext [phone]. Riri reports that the Patient called her regarding transportation for her upcoming radiation treatments. Riri learned that this SW was involved and and wanted to make sure that there was not a duplication of services. ONEIDA updatedLaura that this SW is waiting to hear from [facility] regarding transportation before other lisa ls will be made. Riri mentioned that this Patient has a [employer] Worker Chasity and she may need to call if to see [facility]. SW will remain available and will follow up as appropriate. CADY Barrett documented in this encounterOhiohealth [facility]12-16-2022 Miscellaneous Notes* Telephone Encounter - TEA Barrett - 04/16/2022 2:41 PM EST SOCIAL WORK FOLLOW UP NOTE: [facility] Date of service:04/16/22 Felisha Diallo is being [...] Patient will be updated. Patient called the [employer] for transportation assistance was given 3 resources ([employer], [employer], and [employer]). SW visited all 3 websites and learned that there are no transportation resources for the area where this Patient lives. Surya remain available and will follow up as appropriate. CADY Barrett documented in this encounterOhiohealth [facility]12-15-2022 Miscellaneous Notes* Telephone Encounter - TEA Barrett - 04/15/2022 9:32 AM EST SOCIAL WORK FOLLOW UP NOTE: [facility] Date of service:04/15/22 TOPICS ADDRESSED: community resources [...] which included preparing to see the patient, [id number] patient care, and counseling and educating the [...] - 04/14/2022 12:00 AM EST FELISHA DIALLO [id number] 04/14/2022 [facility] Department of Radiation Oncology Treatment Planning [...] which included preparing to see the patient, [id number] patient care, and counseling and educating the [...] NAME: Felisha Diallo PATIENT April 02, 2022 [facility]LOC[facility]: [facility] READINESS TO LEARN Cognitive Ability: Alert [...] [facility] of Present illness Narrative* Roehrs, Robbie, DO - 03/31/2022 1:51 PM EST Images from the original note were not included. EMERGENCY TRIAGE, TREAT AND TRANSPORT (ET3) DOCUMENTATION OF TELEHEALTH VISIT Date / Time: 03/31/2022 / 1345 Name: Felisha Diallo : 1960 SSN: [id number] EMS Agency: [facility] [x] Verbal consent obtained [] [...] by: Robbie Gallardo DO documented in this [id number] Miscellaneous Notes* Telephone Encounter - TEA Barrett - 03/29/2022 4:19 PM EST SOCIAL WORK FOLLOW UP NOTE: [facility] Date of service:03/29/22 Felisha Diallo is being seen for a follow up social work visit. Today's visit includes: patient TOPICS ADDRESSED: community resources and transportation PLAN: Continue follow up as needed and Referral to community resource Assigned SW listed in Care Team tab: Yes SW received an email from Amirah at [facility] that this Patient called her for transportation assistance. SW called and spoke with Patient about transportation. Patient states that she has 5 round trip rides remaining for 2021 through [employer]. SW encouraged Patient to secure a ride for her upcoming appointments on 04/02 and 04/14 through [employer]. Patient was agreeable. SW faxed [facility] an Intake Form for this Patient so they can begin to explore if there is transportation available for this Patient. SW will remain available and will follow up as appropriate. CADY Barrett documented in this encounterOhiohealth [facility]ering[facility]11-25-2022 Miscellaneous Notes* Telephone Encounter - TEA Barrett - 03/26/2022 10:15 AM EST SOCIAL WORK FOLLOW UP NOTE: [facility] Date of service:03/26/22 Felisha Diallo is being seen for a follow up social work visit. Today's visit includes: patient TOPICS ADDRESSED: transportation PLAN: Continue follow up as needed Assigned ONEIDA listed in Care Team tab: Yes SW [...] this encounterOhiohealth [facility]erington [facility]11-14-2022 NoteHNO ID: [id number] Author: Mariana Zamora MD Service: ? Author Type: Physician Type: Progress Notes Filed: 03/18/2022 5:45 PM Note Text: [id number] PROGRESS NOTE This is a telephone encounter [...] of blood from the area. She saw spanish translator who referred her to general surgery for a biopsy. Biopsy confirmed invasive SCC. Patient now presents for further evaluation. She states that she continues to have intermittent bleeding from this area. Denies any additional symptoms. [facility] Outside path review : 02/12/2022 FINAL DIAGNOSIS Vaginal mass, right, biopsy ([id number], 02/11/2022, A1-A2): -Invasive squamous cell carcinoma, HPV-associated. [...] severe bacterial pneumonia resulting in sepsis hospitalized [facility] Renal failure following this admission PAST [...] pressure in her vulvar area when the forming process worker was checking her groin vasculature and she [...] areas. Additionally this lesion (more content not included)...[facility] 03-15-2022 History of Present illness Narrative* Mariana Zamora MD - 03/15/2022 2:38 PM EST [id number] PROGRESS NOTE This is a telephone encounter [...] of blood from the area. She saw spanish translator who referred her to general surgery for a biopsy. Biopsy confirmed invasive SCC. Patient now presents for further evaluation. She states that she continues to have intermittent bleeding from this area. Denies any additional symptoms. [facility] Outside path review : 02/12/2022 FINAL DIAGNOSIS Vaginal mass, right, biopsy ([id number], 02/11/2022, A1-A2): -Invasive squamous cell carcinoma, HPV-associated. [...] severe bacterial pneumonia resulting in sepsis hospitalized [facility] Renal failure following this admission PAST [...] pressure in her vulvar area when the forming process worker was checking her groin vasculature and she [...] information as to whether transportation assistance in [place] is available. If patient completely unable to [...] of blood from the area. She saw spanish translator who referred her to general surgery for a biopsy. Biopsy confirmed invasive SCC. Patient now presents for further evaluation. She states that she continues to have intermittent bleeding from this area. Denies any additional symptoms. [facility] Outside path review : 02/12/2022 FINAL DIAGNOSIS Vaginal mass, right, biopsy ([id number], 02/11/2022, A1-A2): -Invasive squamous cell carcinoma, HPV-associated. [...] severe bacterial pneumonia resulting in sepsis hospitalized [facility] Renal failure following this admission PAST [...] due to the recent SOPHIA. Dec, Catarino ingram cr kid I-IV (ICD-10 - I12.9) Blood [...] low iron. She didnot tolerate oral Iron [employer] Other 03-09-2022 Evaluation note* Encounter Date Diagnosis [...] due to the recent SOPHIA. Jun, Catarino ingram cr kid I-IV (ICD-10 - I12.9) Blood [...] low iron. She didnot tolerate oral Iron [employer] Other Evaluation note* Diagnosis Onset Date Resolution Status Acute GI bleeding acute [facility] note[facility] InformationNort A V.E.T.S.c.a.r.e. Other Evaluation noteNo assessment information available [facility] Work Phone: Evaluation note* Diagnosis Vulvar cancer (HCC)- Primary Malignant neoplasm of vulva, unspecified site documented in this encounter [facility] note* Diagnosis Vulvar cancer (HCC)- Primary Malignant neoplasm of vulva, unspecified site documented in this encounter [facility] note* Diagnosis Vulvar cancer (HCC)- Primary Malignant neoplasm of vulva, unspecified site Class 3 severe obesity due to excess calories with serious comorbidity in adult, unspecified BMI (HCC) [E66.01 (ICD-10-CM)] Chronic obstructive pulmonary disease, unspecified COPD type (HCC) [J44.9 (ICD-10-CM)] Type 2 diabetes mellitus with hyperglycemia, without long-term current use of insulin (HCC) [E11.65 (ICD-10-CM)] documented in this encounter [facility] note* Diagnosis Vulvar cancer (HCC)- Primary Malignant neoplasm of vulva, unspecified site Type 2 diabetes mellitus with diabetic dermatitis, with long-term current use of insulin (HCC) [E11.620, Z79.4 (ICD-10-CM)] documented in this encounter [facility] note* Diagnosis Wheezing- Primary [facility] Vulvar cancer (HCC) Malignant neoplasm of vulva, unspecified site documented in this encounter [facility] note* Diagnosis Vulvar cancer (HCC)- Primary Malignant neoplasm of vulva, unspecified site documented in this encounter [facility] note* Diagnosis Vulvar cancer (HCC) [C51.9 (ICD-10-CM)]- Primary Malignant neoplasm of vulva, unspecified site Constipation, unspecified constipation type [K59.00 (ICD-10-CM)] documented in this encounter [facility] note* Diagnosis Vulvar cancer (HCC)- Primary Malignant neoplasm of vulva, unspecified site documented in this encounter [facility] note* Diagnosis Vulvar cancer (HCC)- Primary Malignant neoplasm of vulva, unspecified site documented in this encounter [facility] note* Diagnosis Vulvar cancer (HCC)- Primary Malignant neoplasm of vulva, unspecified site [facility] Diagnosis Vulvar cancer (HCC)- Primary Malignant neoplasm of vulva, unspecified site documented in this encounter [facility] note* Diagnosis Vulvar cancer (HCC) Malignant neoplasm of vulva, unspecified site documented in this encounter [facility] note* Diagnosis Vulvar cancer (HCC)- Primary Malignant neoplasm of vulva, unspecified site documented in this encounter [facility] note* Diagnosis Dysuria- Primary [facility] Diagnosis Vulvar cancer (HCC)- Primary Malignant neoplasm of vulva, unspecified site [facility]* Diagnosis Vulvar cancer (HCC) [C51.9 (ICD-10-CM)]- [...] kidney disease, unspecified CKD stage, unspecified whether long-term insulin use (HCC) [E11.22 (ICD-10-CM)] documented in this encounter [facility] note* Diagnosis Vulvar cancer (HCC)- Primary Malignant neoplasm of vulva, unspecified site Open wound [T14.8XXA (ICD-10-CM)] Open wound(s) (multiple) of unspecified site(s), without mention of complication [facility]* Diagnosis Encounter for follow-up surveillance of vulvar cancer [Z08, Z85.44 (ICD-10-CM)]- Primary documented in this encounter [facility] note* Diagnosis Encounter for follow-up surveillance of vulvar cancer [Z08, Z85.44 (ICD-10-CM)]- Primary documented in this encounter [facility] note* Diagnosis Encounter for follow-up surveillance of vulvar cancer [Z08, Z85.44 (ICD-10-CM)]- Primary Vulvar candidiasis [B37.31] Candidiasis of vulva and vagina documented in this encounter [facility] note* Diagnosis Vulvar candidiasis- Primary Candidiasis of vulva and vagina documented in this encounter [facility] note* Diagnosis Encounter for follow-up surveillance of vulvar cancer- Primary Abdominal pannus Localized adiposity documented in this encounter [facility] note* Diagnosis Vulvar candidiasis [B37.31]- Primary Candidiasis of vulva and vagina documented in this encounter [facility] note* Diagnosis Vulvar cancer (HCC)- Primary Malignant neoplasm of vulva, unspecified site documented in this encounter [facility] note* Diagnosis Abdominal panniculus- Primary Localized adiposity documented in this encounter [facility] note* Diagnosis Abdominal pannus- Primary Localized adiposity Encounter for follow-up surveillance of vulvar cancer [Z08, Z85.44] documented in this encounter [facility] note* Diagnosis Research subject- Primary documented in this encounter [facility] note* Diagnosis 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 Dissection of aorta, thoracic documented in this encounter [facility] note* Diagnosis Surgery follow-up Follow-up examination, following unspecified surgery documented in this encounter [facility] note* Diagnosis Dissection of ascending aorta (HCC)- Primary Dissection of aorta, thoracic Paroxysmal atrial fibrillation (HCC) Atrial fibrillation SOPHIA (acute kidney injury) (HCC) Acute kidney failure, unspecified Wound disruption, initial encounter Hypokalemia Hypopotassemia documented in this encounter [facility] note* Diagnosis Postoperative wound infection- Primary Other postoperative infection documented in this encounter [facility] general Narrative - Reported* Type Description Date [...] UNTIL 12/19/2020 Medical History 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 Medical History INCONTINENCE Surgical History abdominal plasty Surgical History ureter stent Surgical History HD Catheter Surgical History BOWEL SURGERY 2017 Hospitalization History see surgical hx [employer] Other History general Narrative - Reported* Type [...] UNTIL 12/19/2020 Medical History 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 You may leave the bandage on that is currently present for the next 48 to 72 hours. Please keep dry, do not submerse, let water run over it. Sutures will require physical removal.[facility] Work Phone: Reason for referral (narrative)* Diagnostic Procedure Only (Routine) - Pending Review Specialty Diagnoses / Procedures Referred By Keya cazares Referred To Contact MOLECULAR & FUNCTIONAL IMAGING Diagnoses Vulvar cancer (HCC) Procedures NM PET/CT SKULL-THIGH INITIAL PET IMAGING CT ATTENUATION SKULL BASE MID-THIGH Mariana Zamora MD [address] [place] [address] Molecular & Functional Imaging [address] [place] [address] Referral ID Status Reason Start Date Expiration Date Visits Requested Visits Authorized [id number] Pending Review Auto-Generat ed Referral 2 03/27/2023 1 1 [facility] for referral (narrative)* Diagnostic Procedure Only (Routine) - Pending Review Specialty Diagnoses / Procedures Referred By Keya cazares Referred To Contact MOLECULAR & FUNCTIONAL IMAGING Diagnoses Vulvar cancer (HCC) Procedures NM PET/CT SKULL-THIGH INITIAL PET IMAGING CT ATTENUATION SKULL BASE MID-THIGH Mariana Zamora MD [address] [place] [address] Molecular & Functional Imaging [address] [place] [address] Referral ID Status Reason Start Date Expiration Date Visits Requested Visits Authorized [id number] Pending Review Auto-Generat ed Referral 03/10/2022 04/09/2023 1 1 [facility] for referral (narrative)* Diagnostic Procedure Only (Routine) - Pending Review Specialty Diagnoses / Procedures Referred By Contac t Referred To Contact MOLECULAR & FUNCTIONAL IMAGING Diagnoses Vulvar cancer (HCC) Procedures NM PET/CT SKULL-THIGH SUBSEQUENT PET IMAGING CT ATTENUATION SKULL BASE MID-THIGH Mariana Zamora MD [address] [id number] Molecular & Functional Imaging [address] [place] [address] Referral ID Status Reason Start Date Expiration Date Visits Requested Visits Authorized [id number] Pending Review Auto-Generat ed Referral 09/08/2022 09/30/2023 1 1 [facility] for referral (narrative)* Outpatient Procedure (Routine) - Pending Review Specialty Diagnoses / Procedures Referred By Contac t Referred To Contact [facility] Diagnoses 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) Procedures ECHO ECHO TTHRC R-T 2D W/WOM-MODE COMPL SPEC&COLR D Yimi Ferrer MD [address] [facility] [place] [address] [facility] [place] [id number] Referral ID Status Reason Start Date Expiration Date Visits Requested Visits Authorized [id number] Pending Review Auto-Generat ed Referral 11/22/2023 11/21/2024 1 1 * Outpatient Procedure (Routine) - Authorized Specialty Diagnoses / Procedures Referred By Contac t Referred To Contact [facility] Diagnoses 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) Procedures ECG COMPLETE ECG ROUTINE ECG W/LEAST 12 LDS W/I&R Yimi Ferrer MD [address] [facility] [place] [address] [facility] [address] [place] [address] Referral ID Status Reason Start Date Expiration Date Visits Requested Visits Authorized [id number] Authorized Auto-Generat ed Referral 11/22/2023 11/21/2024 1 1 [facility] Summary Purpose Family History Relationship Condition Age at Onset Recorded Date/T mary grace Not Specified Congestive heart failure Unknown Relationship Condition Age at Onset Recorded Date/T mary grace mother Congestive heart failure Unknown father Unknown Chronic obstructive pulmonary disease Unk nown Family history of mental disorder Unknown mother Unknown Heart disease Unknown Diabetes mellitus Unknown Advance Directives Advance Directive Response Recorded Date/ Time Advance Directives Yes June 07, 2017 3:50pm Documents on File Type Date Recorded Patient 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 Advance Directive(s) 10/28/2023 4:10 PM Documents on File Type Date Recorded Patient 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 Expl 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 Advance Directive(s) 10/28/2023 4:10 PM Chief Complaint and Reason for Visit Chief Complaint gi bleed Reason for Visit Acute GI bleeding Chief Complaint Vaginal Mass Chief Complaint Vaginal Mass Vaginal Mass Chief Complaint Leg laceration Reason for Referral Specialty Diagnoses / Procedures Referred By Contac t Referred To Contact Plastic Surgery Diagnoses Abdominal pannus Procedures CONSULT TO PLASTIC SURGERY OFFICE/OUTPATIENT [facility] 60 MINUTES Mariana Zamora MD [address] [place] [address] Referral ID Status Reason Start Date Expiration Date Visits Requested Visits Authorized [id number] Authorized PCP Requested Referral 06/22/2023 06/21/2024 1 1 Specialty Diagnoses / Procedures Referred By Contac t Referred To Contact Diagnoses Vulvar cancer (HCC) Procedures CT SIM PLANNING RADIATION ONCOLOGY THER RAD SIMULAJ-AIDED FIELD SETTING COMPLEX Kennedy Garcia MD [address] [place] [address] [place] [address] [facility] Radiation Oncology Referral ID Status Reason Start Date Expiration Date V isits Requested Visits Authorized [id number] Closed PCP Requested Referral 04/14/2022 07/13/2022 1 1 Specialty Diagnoses / Procedures Referred By Contac t Referred To Contact Radiation Oncology Diagnoses Vulvar cancer (HCC) Procedures RAD/ONC CONSULT OFFICE/OUTPATIENT NEW HIGH MDM 60-74 MINUTES Mariana Zamora MD [address] [place] [address] Referral ID Status Reason Start Date Expiration Date Visits Requested Visits Authorized [id number] Authorized PCP Requested Referral 2 03/18/2023 1 1 Additional Source Comments INFORMATION SOURCE (unrecogn ized section and content) DATE CREATED AUTHOR 10/21/2017 [facility] DATE CREATED AUTHOR AUTHOR'S ORGANIZ ATION 05/12/2022 [facility] DATE CREATED AUTHOR AUTHOR'S ORGANIZ ATION 10/09/2022 [facility] DATE CREATED AUTHOR AUTHOR'S ORGANIZ ATION 10/09/2022 [facility] DATE CREATED AUTHOR AUTHOR'S ORGANIZ ATION 02/03/2023 [facility] DATE CREATED AUTHOR AUTHOR'S ORGANIZ ATION 09/28/2023 [facility] EPIC DATE CREATED AUTHOR AUTHOR'S ORGANIZ ATION 12/18/2023 [facility] DATE CREATED AUTHOR AUTHOR'S ORGANIZ ATION 12/21/2023 [facility] Goals (unrecognized section and content) Goals may be documented in a n alternate sectionNo InformationNo InformationNo InformationGoals may be documented in an alternate sectionGoals may be documented in an alternate sectionNo InformationNo InformationNo InformationNo InformationGoals may be documented in an alternate section REASON FOR VISIT (unrecogniz ed section and [...] Vulvar cancer (HCC) Procedures RAD/ONC CONSULT OFFICE/OUTPATIENT [facility] MDM 60-74 MINUTES Mariana Zamora MD [address] [place] [address] Referral ID Status Reason Start Date Expiration Date V isits Requested Visits Authorized [id number] Closed PCP Requested Referral 03/18/2022 03/18/2023 1 [...] of vulvar cancer Reason Comments PHOTOS TAKEN Reason Comments Research IRB [id number]: [id number] I: Dr. Pickett Specialty Diagnoses / Procedures Referred By Contac t Referred To Contact HOSP INPATIENT Diagnoses Heart disease type A dissection Procedures -AORT GRF W/CARD BYP F/AORTIC DISSECTION ASCENDING AORTA GRAFT WITH CARDIOPULMONARY BYPASS VIA J INCISION (MIS) FOR DISSECTION [facility] [id number] [address] [id number] Referral ID Status Reason Start Date Expiration Date Visits Re quested Visits Authorized [id number] 1 1 Reason Comments Forms Reason Comments Radio Main J1 Reason Comments Post Dc Program Call - Urgent Care Teams (unrecognized sec tion and content) Team Status: Active Member Role Status Dates Sarah Valentino MD Primary Care Provider Active Team Status: Inactive Member Role Status Dates Amrit Isaac DO Emergency Provider Active Sta rt: December 16, 2023 End: December 16, 2023 Sarah Valentino MD Primary Care Provider Active Start: December 16, 2023 End: December 16, 2023 Team Status: Inactive Member Role Status Dates Sarah Valentino MD Primary Care Provider Active Julián Ortiz MD Attending Provider Active Stockkeeper Relationship Specialty Start Date End Date Sarah Valentino MD [address] [place] [address] PCP - General Family Medicine 03/10/22 [facility] [address] [place] [address] Psychiatry 03/10/22 Elissa, Hetal [address] [facility] [place] [address] Nephrology 03/10/22 Tamie Vazquez, BIOLOGY FACULTY MEMBER [address] [place] [address] Dermatology 03/10/22 Stockkeeper Relationship Specialty Start Date End Date Sarah Valentino MD [address] [place] [address] PCP - General Family Medicine 03/10/22 [facility] [address] [place] [address] Psychiatry 03/10/22 Elissa, Hetal [address] [employer] [facility] [place] [phone] Nephrology 03/10/22 Tamie Vazquez, BIOLOGY FACULTY MEMBER [address] [place] [address] Dermatology 03/10/22 Stockkeeper Relationship Specialty Start Date End Date Sarah Valentino MD [address] [place] [address] PCP - General Family Medicine 03/10/22 [facility] [address] [place] [address] Psychiatry 03/10/22 Elissa, Hetal [address] [place] [address] Nephrology 03/10/22 Tamie Vazquez, BIOLOGY FACULTY MEMBER [address] [place] [address] Dermatology 03/10/22 Stockkeeper Relationship Specialty Start Date End Date Sarah Valentino MD [address] [place] [address] PCP - General [facility] Medicine 03/10/22 [facility] [address] [facility] [place] [address] Psychiatry 03/10/22 Elissa, Hetal [address] [facility] [place] [address] Nephrology 03/10/22 Tamie Vazquez BIOLOGY FACULTY MEMBER [address] [place] [address] Dermatology 03/10/22 Stockkeeper Relationship Specialty Start Date End Date Sarah Valentino MD [address] [place] [address] PCP - [facility] 03/10/22 [facility] [address] [facility] [place] [address] Psychiatry 03/10/22 Elissa, Hetal [address] [employer] [facility] [place] [address] Nephrology 03/10/22 Tamie Vazquez, BIOLOGY FACULTY MEMBER [address] [place] [address] Dermatology 03/10/22 Stockkeeper Relationship Specialty Start Date End Date Sarah Valentino MD [address] [place] [address] PCP - General Family Medicine 03/10/22 [facility] [address] [place] [address] Psychiatry 03/10/22 Elissa, Hetal [address] [place] [phone] Nephrology 03/10/22 Tamie Vazquez, BIOLOGY FACULTY MEMBER [address] [place] [address] Dermatology 03/10/22 Lesia Frausto LSW Deputy Bailiff 04/09/22 Stockkeeper Relationship Specialty Start Date End Date Sarah Valentino MD [address] [place] [address] PCP - General Family Medicine 03/10/22 [facility] [address] [place] [address] Psychiatry 03/10/22 Elissa, Hetal [address] [facility] [place] [address] Nephrology 03/10/22 Tamie Vazquez, BIOLOGY FACULTY MEMBER [address] [place] [address] Dermatology 03/10/22 Stockkeeper Relationship Specialty Start Date End Date Sarah Valentino MD [address] [place] [address] PCP - General Family Medicine 03/10/22 [place] [facility] [address] [place] [address] Psychiatry 03/10/22 Elissa, Hetal [address] [facility] [place] [address] Nephrology 03/10/22 Tamie Vazquez, BIOLOGY FACULTY MEMBER [address] [place] [address] Dermatology 03/10/22 Lesia Frausto LSW Deputy Bailiff 04/09/22 Stockkeeper Relationship Specialty Start Date End Date Sarah Valentino MD [address] [place] [address] PCP - General Family Medicine 03/10/22 [facility] [address] [facility] [place] [address] Psychiatry 03/10/22 Elissa, Hetal [address] [place] [address] Nephrology 03/10/22 Tamie Vazquez, BIOLOGY FACULTY MEMBER [address] [place] [address] Dermatology 03/10/22 Lesia Frausto LSW Deputy Bailiff 04/09/22 Stockkeeper Relationship Specialty Start Date End Date Sarah Valentino MD [address] [place] [address] PCP - General [facility] Medicine 03/10/22 [facility] [address] [facility] [place] [phone] Psychiatry 03/10/22 Elissa, Hetal [address] [employer] [place] [address] Nephrology 03/10/22 Tamie Vazquez, BIOLOGY FACULTY MEMBER [address] [place] [address] Dermatology 03/10/22 Lesia Frausto LSW Deputy Bailiff 04/09/22 Stockkeeper Relationship Specialty Start Date End Date Sarah Valentino MD [address] [place] [address] PCP - General Family Medicine 03/10/22 [facility] [address] [place] [address] Psychiatry 03/10/22 Elissa, Hetal [address] [facility] [place] [place] [phone] Nephrology 03/10/22 Tamie Vazquez, BIOLOGY FACULTY MEMBER [address] [place] [address] Dermatology 03/10/22 Lesia Frausto LSW Deputy Bailiff 04/09/22 Stockkeeper Relationship Specialty Start Date End Date Sarah Valentino MD [address] [place] [address] PCP - General Family Medicine 03/10/22 [facility] [address] [place] [address] Psychiatry 03/10/22 Elissa, Hetal [address] [facility] [place] [place] [address] Nephrology 03/10/22 Tamie Vazquez, BIOLOGY FACULTY MEMBER [address] [place] [address] Dermatology 03/10/22 Lesia Frausto LSW Deputy Bailiff 04/09/22 Stockkeeper Relationship Specialty Start Date End Date Sarah Valentino MD [address] [place] [address] PCP - General Family Medicine 03/10/22 [facility] [address] [place] [address] Psychiatry 03/10/22 Elissa, Hetal [address] [place] [address] Nephrology 03/10/22 Tamie Vazquez, BIOLOGY FACULTY MEMBER [address] [place] [address] Dermatology 03/10/22 Lesia Frausto LSW Deputy Bailiff 04/09/22 Stockkeeper Relationship Specialty Start Date End Date Sarah Valentino MD [address] [place] [address] PCP - General Family Medicine 03/10/22 [facility] [address] [facility] [place] [address] Psychiatry 03/10/22 Elissa, Hetal [address] [facility] [place] [address] Nephrology 03/10/22 Tamie Vazquez BIOLOGY FACULTY MEMBER [address] [place] [address] Dermatology 03/10/22 Lesia Frausto LSW Deputy Bailiff 04/09/22 Stockkeeper Relationship Specialty Start Date End Date Sarah Valentino MD [address] [place] [address] PCP - General Family Medicine 03/10/22 [facility] [address] [place] [address] Psychiatry 03/10/22 Elissa, Hetal [address] [place] [address] Nephrology 03/10/22 Tamie Vazquez, BIOLOGY FACULTY MEMBER [address] [place] [address] Dermatology 03/10/22 Lesia Frausto LSW Deputy Bailiff 04/09/22 Stockkeeper Relationship Specialty Start Date End Date Sarah Valentino MD [address] [place] [address] PCP - General Family Medicine 03/10/22 [facility] [address] [place] [address] Psychiatry 03/10/22 Elissa, Hetal [address] [place] [address] Nephrology 03/10/22 Tamie Vazquez, BIOLOGY FACULTY MEMBER [address] [place] [address] Dermatology 03/10/22 Lesia Frausto LSW Deputy Bailiff 04/09/22 Stockkeeper Relationship Specialty Start Date End Date Sarah Valentino MD [address] [place] [address] PCP - General Family Medicine 03/10/22 [facility] [address] [facility] [place] [address] Psychiatry 03/10/22 Elissa, Hetal [address] [place] [address] Nephrology 03/10/22 Tamie Vazquez, BIOLOGY FACULTY MEMBER [address] [place] [address] Dermatology 03/10/22 Lesia Frausto LSW Deputy Bailiff 04/09/22 Stockkeeper Relationship Specialty Start Date End Date Sarah Valentino MD [address] [place] [address] PCP - General Family Medicine 03/10/22 [place] [address] [place] [address] Psychiatry 03/10/22 Elissa, Hetal [address] [place] [address] Nephrology 03/10/22 Tamie Vazquez, BIOLOGY FACULTY MEMBER [address] [place] [address] Dermatology 03/10/22 Lesia Frausto LSW Deputy Bailiff 04/09/22 Stockkeeper Relationship Specialty Start Date End Date Sarah Valentino MD [address] [place] [address] PCP - General Family Medicine 03/10/22 [facility] [address] [place] [address] Psychiatry 03/10/22 Elissa, Hetal [address] [place] [address] Nephrology 03/10/22 Tamie Vazquez, BIOLOGY FACULTY MEMBER [address] [place] [address] Dermatology 03/10/22 Lesia Frausto LSW Deputy Bailiff 04/09/22 Stockkeeper Relationship Specialty Start Date End Date Sarah Valentino MD [address] [place] [address] PCP - General Family Medicine 03/10/22 [facility] III [address] [place] [address] Psychiatry 03/10/22 Elissa, Hetal [address] [place] [address] Nephrology 03/10/22 Tamie Vazquez, BIOLOGY FACULTY MEMBER [address] [place] [address] Dermatology 03/10/22 Lesia Frausto LSW Deputy Bailiff 04/09/22 Stockkeeper Relationship Specialty Start Date End Date Sarah Valentino MD [address] [place] [address] PCP - General [facility] Medicine 03/10/22 [facility] [address] [place] [address] Psychiatry 03/10/22 Elissa, Hetal [address] [employer] [facility] [place] [address] Nephrology 03/10/22 Tamie Vazquez, BIOLOGY FACULTY MEMBER [address] [place] [address] Dermatology 03/10/22 Lesia Frausto LSW Deputy Bailiff 04/09/22 Stockkeeper Relationship Specialty Start Date End Date Sarah Valentino MD [address] [place] [address] PCP - General [facility] Medicine 03/10/22 [facility] [address] [place] [address] Psychiatry 03/10/22 Elissa, Hetal [address] [employer] [facility] [place] [phone] Nephrology 03/10/22 Tamie Vazquez, BIOLOGY FACULTY MEMBER [address] [place] [address] Dermatology 03/10/22 Lesia Frausto LSW Deputy Bailiff 04/09/22 Stockkeeper Relationship Specialty Start Date End Date Sarah Valentino MD [address] [place] [address] PCP - General Family Medicine 03/10/22 [facility] [address] [place] [address] Psychiatry 03/10/22 Elissa, Hetal [address] [facility] [place] [address] Nephrology 03/10/22 Tamie Vazquez, BIOLOGY FACULTY MEMBER [address] [place] [address] Dermatology 03/10/22 Lesia Frausto LSW Deputy Bailiff 04/09/22 Stockkeeper Relationship Specialty Start Date End Date Sarah Valentino MD [address] [place] [address] PCP - General Family Medicine 03/10/22 [facility] [address] [place] [address] Psychiatry 03/10/22 Elissa, Hetal [address] [facility] [place] [address] Nephrology 03/10/22 Tamie Vazquez, BIOLOGY FACULTY MEMBER [address] [place] [address] Dermatology 03/10/22 Lesia Frausto LSW Deputy Bailiff 04/09/22 Stockkeeper Relationship Specialty Start Date End Date Sarah Valentino MD [address] [place] [address] PCP - General Family Medicine 03/10/22 [facility] [address] [place] [address] Psychiatry 03/10/22 Hetal Bowers [address] [place] [address] Nephrology 03/10/22 Tamie Vazquez BIOLOGY FACULTY MEMBER [address] [place] [address] Dermatology 03/10/22 Lesia Frausto LSW Deputy Bailiff 04/09/22 Stockkeeper Relationship Specialty Start Date End Date Sarah Valentino MD [address] [place] [address] PCP - General Family Medicine 03/10/22 [facility] [address] [place] [address] Psychiatry 03/10/22 Hetal Bowers [address] [place] [address] Nephrology 03/10/22 Tamie Vazquez CNP [address] [place] [address] Dermatology 03/10/22 Lesia Frausto CLINICAL TEAM MANAGER Deputy Bailiff 04/09/22 Stockkeeper Relationship Specialty Start Date End Date Sarah Valentino MD [address] [place] [address] PCP - General Family Medicine 03/10/22 [facility] [address] [place] [address] Psychiatry 03/10/22 Hetal Bowers [address] [place] [address] Nephrology 03/10/22 Tamie Vazquez BIOLOGY FACULTY MEMBER [address] [place] [address] Dermatology 03/10/22 Lesia Frausto LSW Deputy Bailiff 04/09/22 Stockkeeper Relationship Specialty Start Date End Date Sarah Valentino MD [address] [place] [address] PCP - General Family Medicine 03/10/22 [facility] [address] [place] [address] Psychiatry 03/10/22 Hetal Bowers MD [address] [place] [address] Nephrology 03/10/22 Tamie Vazquez BIOLOGY FACULTY MEMBER [address] [place] [address] Dermatology 03/10/22 Lesia Frausto LSW Deputy Bailiff 04/09/22 Stockkeeper Relationship Specialty Start Date End Date Sarah Valentino MD [address] [place] [address] PCP - General Family Medicine 03/10/22 [facility] [address] [place] [address] Psychiatry 03/10/22 Hetal Bowers MD [address] [place] [address] Nephrology 03/10/22 Tamie Vazquez BIOLOGY FACULTY MEMBER [address] [place] [address] Dermatology 03/10/22 Lesia Frausto LSW Deputy Bailiff 04/09/22 Stockkeeper Relationship Specialty Start Date End Date Sarah Valentino MD [address] [place] [address] PCP - [employer] 05/02/20 Sarah Valentino MD [address] [place] [address] PCP - General Family Medicine 09/29/22 Stockkeeper Relationship Specialty Start Date End Date Sarah Valentino MD [address] [place] [address] PCP - General Family Medicine 03/10/22 [facility] [address] [place] [address] Psychiatry 03/10/22 Hetal Bowers MD [address] [facility] [place] [place] [address] Nephrology 03/10/22 Tamie Vazquez CNP [address] [address] Dermatology 03/10/22 Lesia Frausto LSW Deputy Bailiff 04/09/22 Stockkeeper Relationship Specialty Start Date End Date Sarah Valentino MD [address] [place] [address] PCP - General Family Medicine 03/10/22 [facility] [address] [place] [address] Psychiatry 03/10/22 Hetal Bowers MD [address] [facility] [place] [address] Nephrology 03/10/22 Tamie Vazquez, BIOLOGY FACULTY MEMBER [address] [place] [address] Dermatology 03/10/22 Lesia Frausto LSW Deputy Bailiff 04/09/22 Stockkeeper Relationship Specialty Start Date End Date Sarah Valentino MD [address] [place] [address] PCP - General Family Medicine 03/10/22 [facility] III [address] [place] [address] Psychiatry 03/10/22 Hetal Bowers MD [address] [facility] [place] [address] Nephrology 03/10/22 Tamie Vazquez CNP [address] [place] [address] Dermatology 03/10/22 Lesia Frausto LSW Deputy Bailiff 04/09/22 Stockkeeper Relationship Specialty Start Date End Date Sarah Valentino MD [address] [place] [address] PCP - General Family Medicine 03/10/22 [facility] [address] [place] [place] [address] Psychiatry 03/10/22 Hetal Bowers MD [address] [place] [address] Nephrology 03/10/22 Tamie Vazquez, MATTHEW [address] [place] [address] Dermatology 03/10/22 Lesia Frausto, CLINICAL TEAM MANAGER Deputy Bailiff 04/09/22 Stockkeeper Relationship Specialty Start Date End Date Sarah Valentino MD [address] [place] [address] PCP - General Family Medicine 03/10/22 [facility] III [address] [place] [address] Psychiatry 03/10/22 Hetal Bowers MD [address] [place] [address] Nephrology 03/10/22 Tamie Vazquez CNP [address] [place] [address] Dermatology 03/10/22 Lesia Frausto, CLINICAL TEAM MANAGER Deputy Bailiff 04/09/22 Stockkeeper Relationship Specialty Start Date End Date Sarah Valentino MD [address] [place] [address] PCP - General Family Medicine 03/10/22 [facility] [address] [place] [address] Psychiatry 03/10/22 Hetal Bowers MD [address] [place] [address] Nephrology 03/10/22 Tamie Vazquez BIOLOGY FACULTY MEMBER [address] [place] [address] Dermatology 03/10/22 Lesia Frausto, CLINICAL TEAM MANAGER Deputy Bailiff 04/09/22 Stockkeeper Relationship Specialty Start Date End Date Sarah Valentino MD [address] [place] [address] PCP - General Family Medicine 03/10/22 [facility] [address] [place] [address] Psychiatry 03/10/22 Hetal Bowers MD [address] [place] [address] Nephrology 03/10/22 Tamie Vazquez BIOLOGY FACULTY MEMBER [address] [place] [address] Dermatology 03/10/22 Lesia Frausto, CLINICAL TEAM MANAGER Deputy Bailiff 04/09/22 Stockkeeper Relationship Specialty Start Date End Date Sarah Valentino MD [address] [place] [address] PCP - General Family Medicine 03/10/22 [facility] III [address] [place] [address] Psychiatry 03/10/22 Hetal Bowers MD [address] [place] [address] Nephrology 03/10/22 Tamie Vazquez CNP [address] [place] [address] Dermatology 03/10/22 Lesia Frausto LSW Deputy Bailiff 04/09/22 Stockkeeper Relationship Specialty Start Date End Date Sarah Valentino MD [address] [place] [address] PCP - General Family Medicine 03/10/22 [facility] [address] [place] [address] Psychiatry 03/10/22 Hetal Bowers MD [address] [place] [address] Nephrology 03/10/22 Tamie Vazquez CNP [address] [place] [address] Dermatology 03/10/22 Lesia Frausto LSW Deputy Bailiff 04/09/22 Stockkeeper Relationship Specialty Start Date End Date Sarah Valentino MD [address] [place] [address] PCP - General Family Medicine 03/10/22 [facility] III [address] [place] [address] Psychiatry 03/10/22 Hetal Bowers MD [address] [place] [address] Nephrology 03/10/22 Tamie Vazquez CNP [address] [place] [address] Dermatology 03/10/22 Lesia Frausto LSW Deputy Bailiff 04/09/22 Stockkeeper Relationship Specialty Start Date End Date Sarah Valentino MD [address] [place] [address] PCP - General Family Medicine 03/10/22 [facility] III [address] [place] [address] Psychiatry 03/10/22 Hetal Bowers MD [address] [place] [address] Nephrology 03/10/22 Tamie Vazquez BIOLOGY FACULTY MEMBER [address] [place] [address] Dermatology 03/10/22 Lesia Frausto LSW Deputy Bailiff 04/09/22 Stockkeeper Relationship Specialty Start Date End Date Sarah Valentino MD [address] [place] [address] PCP - General Family Medicine 03/10/22 [facility] [address] [place] [address] Psychiatry 03/10/22 Hetal Bowers MD [address] [place] [address] Nephrology 03/10/22 Tamie Vazquez BIOLOGY FACULTY MEMBER [address] [place] [address] Dermatology 03/10/22 Lesia Frausto LSW Deputy Bailiff 04/09/22 Stockkeeper Relationship Specialty Start Date End Date Sarah Valentino MD [address] [place] [address] PCP - General Family Medicine 03/10/22 [facility] Lu III [address] [place] [address] Psychiatry 03/10/22 Hetal Bowers MD [address] [place] [address] Nephrology 03/10/22 Tamie Vazquez BIOLOGY FACULTY MEMBER [address] [place] [address] Dermatology 03/10/22 Lesia Frausto LSW Deputy Bailiff 04/09/22 Stockkeeper Relationship Specialty Start Date End Date Sarah Valentino MD [address] [place] [address] PCP - General Family Medicine 03/10/22 [facility] Lu III [address] [place] [address] Psychiatry 03/10/22 Hetal Bowers MD [address] [place] [address] Nephrology 03/10/22 Tamie Vazquez BIOLOGY FACULTY MEMBER [address] [place] [address] Dermatology 03/10/22 Lesia Frausto LSW Deputy Bailiff 04/09/22 Stockkeeper Relationship Specialty Start Date End Date Sarah Valentino MD [address] [place] [address] PCP - General Family Medicine 03/10/22 [facility] Lu III [address] [place] [address] Psychiatry 03/10/22 Hetal Bowers MD [address] [employer] [facility] [place] [address] Nephrology 03/10/22 Tamie Vazquez CNP [address] [place] [address] Dermatology 03/10/22 Lesia Frausto LSW Deputy Bailiff 04/09/22 Stockkeeper Relationship Specialty Start Date End Date Sarah Valentino MD [address] [place] [address] PCP - General Family Medicine 03/10/22 [facility] Lu III [address] [place] [address] Psychiatry 03/10/22 Hetal Bowers MD [address] [employer] [facility] [place] [address] Nephrology 03/10/22 Tamie Vazquez CNP [address] [place] [address] Dermatology 03/10/22 Lesia Frausto LSW Deputy Bailiff 04/09/22 Stockkeeper Relationship Specialty Start Date End Date Sarah Valentino MD [address] [facility] [place] [address] PCP - General Family Medicine 03/10/22 [facility] Lu III [address] [place] [address] Psychiatry 03/10/22 Hetal Bowers MD [address] [place] [address] Nephrology 03/10/22 Tamie Vazquez CNP [address] [address] Dermatology 03/10/22 Lesia Frausto LSW Deputy Bailiff 04/09/22 Source Comments (unrecognize d section and [...] or prosecute any alcohol or drug abuse patient.[facility] the event this information is protected by [...] BE BASED ON THE PRIMARY CLINICAL RECORDS. [facility]. provides no warranty or guarantee of the accuracy or completeness of information in this document.
[2023-12-22] MEDS: DEXTROSE 50 %-WATER 25 GM/50 ML SYRINGE IV ×2 (06:45→09:21)
[2023-12-22 06:54] LABS: PO2 ABG 85.8 mmHg (80.0-100.0)
[2023-12-22 06:55] LABS: Allen Test POSITIVE (POSITIVE); Base Excess ABG 3.6 mmol/L (-2.0-2.0); O2 Mode RA; Oxygen Saturation ABG 96.8 %; Puncture Site RR
[2023-12-22 06:56] LABS: Alanine Aminotransferase 26 U/L (14-59); Albumin Globulin Ratio 0.7; Albumin Level 2.8 g/dL (3.4-5.0); Alkaline Phosphatase 217 U/L (46-116); Anion Gap 8.9; Aspartate Amino Transferase 33 U/L (15-37); BUN Creatinine Ratio 13.7; Bilirubin Total 0.3 mg/dL (0.2-1.0); Carbon Dioxide 30.7 mmol/L (21.0-32.0); Chloride 100 mmol/L (98-107); Estimated GFR (African America 53 (>=60); Estimated GFR (Non-African Ame 44 (>=60); Globulin 4.2 g/dL; Potassium 3.6 mmol/L (3.5-5.1); Sodium 136 mmol/L (136-145); Troponin I High Sensitivity 12.8 pg/mL (4.0-51.3)
[2023-12-22 06:58] LABS: Lactate/Lactic Acid 1.6 mmol/L (0.4-2.0)
[2023-12-22 06:59] LABS: Glucose 23 mg/dL (74-106)
--- NOTE | 2023-12-22 07:20 | CT_ITS ---
[address] [address] Patient Name: FELISHA DIALLO MRN: [id number] date: 1960 Sex: F Assigned Patient Location: ER Current Patient Location: Accession/Order Number: [id number] Exam Date: 12/22/2023 07:01 Report Date: 12/22/2023 08:32 At the request of: ABIOLA CABALLERO Procedure: CT chest w con EXAMINATION: CT chest w con, CT abdomen pelvis w con HISTORY: trauma COMPARISON: CTA chest 10/27/2023 TECHNIQUE: Axial, Coronal, and Sagittal CT images were obtained without and/or with IV contrast as indicated by examination type. Dose reduction techniques were achieved by using automated exposure control and/or adjustment of mA and/or kV according to patient size and/or use of iterative reconstruction technique. FINDINGS: LUNGS: Elevated left hemidiaphragm. Mild atelectasis versus infiltrates within left lower lobe. PLEURA: No mass or effusion. VASCULATURE: No visible pulmonary arterial thrombus or attenuation. JULITO: No mass or adenopathy. MEDIASTINUM: Prior sternotomy. No mass or adenopathy. CARDIAC: No enlargement, pericardial thickening, or pericardial effusion. AORTA: No aneurysm or dissection.. CHEST WALL: Nondisplaced fractures of the right second, third, and fourth ribs. No mass or axillary adenopathy. LIVER: No enlargement, atrophy, abnormal density, or significant focal lesion. BILIARY: No dilatation or calcification. PANCREAS: No lesion, fluid collection, ductal dilatation, or atrophy. SPLEEN: No enlargement or focal lesion. ADRENALS: No mass or enlargement. KIDNEYS: Moderate cortical atrophy bilaterally. Several nonobstructing stones bilaterally. Several small rounded hypodensities bilaterally; nonspecific but favoring cysts. BOWEL/MESENTERY: Mild diverticulosis of distal colon. No visible mass, obstruction, or bowel wall thickening. Normal appendix. AORTA/VASCULAR: Dissection of thoracic and abdominal aorta to level of superior mesenteric artery. Both lumens remain patent without appreciable change. RETROPERITONEUM: No mass or adenopathy. LYMPH NODES: No adenopathy. URINARY BLADDER: No visible focal wall thickening, lesion, or calculus. PELVIC ORGANS: No visible mass. Pelvic organs appropriate for patient age. ABDOMINAL WALL: Several hyperdense areas within the anterior abdominal wall subcutaneous fat; likely injection granulomas. BONES: Nondisplaced fractures of the right second, third, and fourth ribs. Mild compression fractures of L2, L3. Moderate compression fracture of L5. Multilevel moderate degenerative facet arthropathy and degenerative disc disease. OTHER: Negative. CT/CT chest w con IMPRESSION: 1. Nondisplaced fractures of the right second, third, and fourth ribs; new compared to 10/27/2023. 2. Elevated left hemidiaphragm and mild atelectasis versus infiltrates within left lung base. 3. Known aortic dissection. Evaluation is limited on today's study due to technique, however there does not appear to be any appreciable change. Dissection extends to or just below the superior mesenteric artery. This is below the level of imaging on the prior study. 4. Bilateral nonobstructing nephrolithiasis, moderate cortical atrophy, and bilateral renal cysts versus hypodense nodules. Consider follow-up. 5. Age indeterminant multilevel compression fractures of lumbar spine. Electronically authenticated by: ERNIE LOWERY Date: 12/22/2023 08:32
--- NOTE | 2023-12-22 07:20 | CT_ITS ---
[address] [address] Patient Name: FELISHA DIALLO MRN: [id number] date: 1960 Sex: F Assigned Patient Location: ER Current Patient Location: Accession/Order Number: [id number] Exam Date: 12/22/2023 07:01 Report Date: 12/22/2023 08:32 At the request of: ABIOLA CABALLERO Procedure: CT abdomen pelvis w con EXAMINATION: CT chest w con, CT abdomen pelvis w con HISTORY: trauma COMPARISON: CTA chest 10/27/2023 TECHNIQUE: Axial, Coronal, and Sagittal CT images were obtained without and/or with IV contrast as indicated by examination type. Dose reduction techniques were achieved by using automated exposure control and/or adjustment of mA and/or kV according to patient size and/or use of iterative reconstruction technique. FINDINGS: LUNGS: Elevated left hemidiaphragm. Mild atelectasis versus infiltrates within left lower lobe. PLEURA: No mass or effusion. VASCULATURE: No visible pulmonary arterial thrombus or attenuation. JULITO: No mass or adenopathy. MEDIASTINUM: Prior sternotomy. No mass or adenopathy. CARDIAC: No enlargement, pericardial thickening, or pericardial effusion. AORTA: No aneurysm or dissection.. CHEST WALL: Nondisplaced fractures of the right second, third, and fourth ribs. No mass or axillary adenopathy. LIVER: No enlargement, atrophy, abnormal density, or significant focal lesion. BILIARY: No dilatation or calcification. PANCREAS: No lesion, fluid collection, ductal dilatation, or atrophy. SPLEEN: No enlargement or focal lesion. ADRENALS: No mass or enlargement. KIDNEYS: Moderate cortical atrophy bilaterally. Several nonobstructing stones bilaterally. Several small rounded hypodensities bilaterally; nonspecific but favoring cysts. BOWEL/MESENTERY: Mild diverticulosis of distal colon. No visible mass, obstruction, or bowel wall thickening. Normal appendix. AORTA/VASCULAR: Dissection of thoracic and abdominal aorta to level of superior mesenteric artery. Both lumens remain patent without appreciable change. RETROPERITONEUM: No mass or adenopathy. LYMPH NODES: No adenopathy. URINARY BLADDER: No visible focal wall thickening, lesion, or calculus. PELVIC ORGANS: No visible mass. Pelvic organs appropriate for patient age. ABDOMINAL WALL: Several hyperdense areas within the anterior abdominal wall subcutaneous fat; likely injection granulomas. BONES: Nondisplaced fractures of the right second, third, and fourth ribs. Mild compression fractures of L2, L3. Moderate compression fracture of L5. Multilevel moderate degenerative facet arthropathy and degenerative disc disease. OTHER: Negative. CT/CT abdomen pelvis w con IMPRESSION: 1. Nondisplaced fractures of the right second, third, and fourth ribs; new compared to 10/27/2023. 2. Elevated left hemidiaphragm and mild atelectasis versus infiltrates within left lung base. 3. Known aortic dissection. Evaluation is limited on today's study due to technique, however there does not appear to be any appreciable change. Dissection extends to or just below the superior mesenteric artery. This is below the level of imaging on the prior study. 4. Bilateral nonobstructing nephrolithiasis, moderate cortical atrophy, and bilateral renal cysts versus hypodense nodules. Consider follow-up. 5. Age indeterminant multilevel compression fractures of lumbar spine. Electronically authenticated by: ERNIE LOWERY Date: 12/22/2023 08:32
--- NOTE | 2023-12-22 07:20 | CT_ITS ---
The [address] [address] Patient Name: FELISHA DIALLO MRN: [id number] date: 1960 Sex: F Assigned Patient Location: ED.MAIN Current Patient Location: Accession/Order Number: [id number] Exam Date: 12/22/2023 07:01 Report Date: 12/22/2023 07:52 At the request of: ABIOLA CABALLERO Procedure: CT cervical spine wo con EXAM: CT cervical spine wo con HISTORY: trauma COMPARISON: Comparison made to CT cervical spine dated 10/27/2023. TECHNIQUE: Contiguous transaxial images obtained from skullbase through cervical spine without administration of intravenous contrast. Coronal and sagittal reformations were obtained. Dose reduction: mA and/or kV are were adjusted by automated exposure control software based upon patients height and weight. FINDINGS: Examination is limited due to patient motion degradation. There is straightening of the cervical spine with loss of normal cervical lordosis. No prevertebral soft tissue swelling or acute cervical spine fracture is appreciated given limitations of this examination. Again noted is multilevel degenerative disc disease of the cervical spine is most pronounced at C5-6 and C6-7 where it is severe. There is persistent anterolisthesis of C3 on C4, C4 on C5, and C7 on T1. Small posterior disc-osteophyte complexes are noted, most pronounced at C5-6 and C6-7. There is atlantodental articulation osteoarthritis. There is uncovertebral joint osteoarthritis, most pronounced at C5-6 and C6-7. There is also multilevel and bilateral facet joint osteoarthritis. Uncovertebral and facet joint osteoarthritis contribute to neural foraminal narrowing is most pronounced at C3-4, C5-6, and C6-7. There is carotid artery atherosclerosis. CT/CT cervical spine wo con IMPRESSION: 1. No acute cervical spine fracture. 2. Persistent straightening of the cervical spine with loss of normal cervical doses that may be positional or related to muscle spasm, related to patient's degenerative disc disease. 3. Stable multilevel degenerative disc disease of the cervical spine as described. 4. Carotid artery atherosclerosis. Electronically authenticated by: KATHY MELCHOR Date: 12/22/2023 07:52
--- NOTE | 2023-12-22 07:20 | CT_ITS ---
The [address] [address] Patient Name: FELISHA DIALLO MRN: [id number] date: 1960 Sex: F Assigned Patient Location: ER Current Patient Location: ER Accession/Order Number: [id number] Exam Date: 12/22/2023 07:01 Report Date: 12/22/2023 07:37 At the request of: ABIOLA CABALLERO Procedure: CT head/brain wo con CHEMICAL HISTORY: Trauma. Status post fall from wheelchair 3 hours ago. EXAMINATION: Unenhanced CT scan of the brain: 12/22/2023. COMPARISON: Unenhanced CT scan of the brain: 10/27/2023. TECHNIQUE: 3 mm axial images from skull base through vertex without intravenous contrast were obtained. Sagittal and coronal reconstructions were also performed. FINDINGS: The ventricles, sulcal, cisternal spaces are normal for patient's age. There is no obvious mass, mass effect, or midline shift. Normal differentiation of white and mora matter is maintained. There is no intra- or extra-axial hemorrhage. The visualized intraorbital contents appear normal. The visualized paranasal sinuses, mastoid air cells appear normal. Calvarium appears intact. There is some air-fluid level in the right maxillary antrum. CT/CT head/brain wo con IMPRESSION: 1. There is no acute infarct, hemorrhage, or acute intracranial injury. 2. No definite skull fractures are seen. 3. Minimal air-fluid level in the right maxillary antrum most likely secondary to inflammatory changes. There is slight deviation of the left nasal bone, without significant displacement. There could be a nondisplaced fracture. This was normal-appearing on the previous examination. Electronically authenticated by: KATIE AU Date: 12/22/2023 07:37
[2023-12-22] MEDS: DEXTROSE 10 % IN WATER 1,000 ML 100 ML IV (07:30)
[2023-12-22 07:44] LABS: Glucometer 75 mg/dL (74-106)
[2023-12-22] MEDS: MORPHINE SULFATE 2 MG/ML SYRINGE IV ×2 (08:01→08:46)
--- NOTE | 2023-12-22 08:48 | ED_ITS ---
HPI HPI - General Adult General Chief complaint: Fall Stated complaint: other Time Seen by Provider: 12/22/23 05:59 Source: patient and EMR Mode of arrival: ambulance Limitations: physical limitation History of Present Illness HPI narrative: 63-year-old female presented to the emergency department and was initially seen by Dr. Sotelo and signed out to me after discussing the case with him thoroughly. Please see his full history and physical exam. Related Data Home Medications ?Medication ?Instructions ?Recorded ?Confirmed adalimumab 40 mg/0.4 mL 80 mg subcut Q14D 10/27/23 10/27/23 subcutaneous pen kit (Humira(CF) Pen) albuterol sulfate 90 mcg/actuation 2 puff inhalation Q4H PRN 10/27/23 10/27/23 aerosol inhaler shortness of breath or wheezing alprazolam 0.5 mg tablet 0.5 mg PO BID 10/27/23 10/27/23 dapagliflozin propanediol 5 mg 5 mg PO .once daily 10/27/23 10/27/23 tablet (Farxiga) famotidine 20 mg tablet 20 mg PO Q12H 10/27/23 10/27/23 fluconazole 150 mg tablet 150 mg PO 10/27/23 fluticasone 500 mcg-salmeterol 50 1 inh inhalation Q12H 10/27/23 10/27/23 mcg/dose blistr powdr for inhalation fluticasone propionate 50 1 spray intranasal Q12H 10/27/23 10/27/23 mcg/actuation nasal spray,suspension gabapentin 300 mg capsule 300 mg PO TID 10/27/23 10/27/23 glipizide 10 mg tablet, extended 10 mg PO BID 10/27/23 10/27/23 release 24 hr insulin glargine 100 unit/mL (3 65 unit subcut 10/27/23 mL) subcutaneous pen (Lantus Solostar U-100 Insulin) lamotrigine 100 mg tablet 100 mg PO Q12H 10/27/23 10/27/23 montelukast 10 mg tablet 10 mg PO .once a day 10/27/23 10/27/23 rosuvastatin 10 mg tablet 10 mg PO .once daily 10/27/23 10/27/23 sulfamethoxazole 400 1 tab PO BID 10/27/23 10/27/23 mg-trimethoprim 80 mg tablet tirzepatide 10 mg/0.5 mL 10 mg subcut 10/27/23 subcutaneous pen injector (Senthil) tolterodine 4 mg capsule,extended 4 mg PO .once dailly 10/27/23 10/27/23 release 24 hr topiramate 200 mg tablet 100 mg PO BID 10/27/23 umeclidinium 62.5 mcg/actuation 1 inh inhalation Q24H 10/27/23 10/27/23 blister powder for inhalation (Incruse Ellipta) venlafaxine 150 mg 150 mg PO BID 10/27/23 10/27/23 capsule,extended release 24 hr Allergies Allergy/AdvReac Type Severity Reaction Status Date / Time erythromycin base Allergy Intermediate swelling Verified 12/22/23 06:11 Opioid HPI Opioid Management Most Recent Opioid Data: Last Pain Scale 10 12/22/23 08:46 Last ED Pain Assessment 12/22/23 07:50 Last MAR Pain Assessment 12/22/23 08:46 [facility] Medical History (Updated 12/22/23 @ 08:48 by Jemal Moreira MD) Diabetes ?E11.9 - Type 2 diabetes mellitus without complications (ICD-10) High cholesterol ?E78.00 - Pure hypercholesterolemia, unspecified (ICD-10) Urinary incontinence ?R32 - Unspecified urinary incontinence (ICD-10) Hidradenitis suppurativa ?L73.2 - Hidradenitis suppurativa (ICD-10) Bipolar 1 disorder, depressed, severe ?F31.4 - Bipolar disorder, current episode depressed, severe, without psychotic features (ICD-10) Asthma ?J45.909 - Unspecified asthma, uncomplicated (ICD-10) Sleep apnea ?G47.30 - Sleep apnea, unspecified (ICD-10) COPD (chronic obstructive pulmonary disease) ?J44.9 - Chronic obstructive pulmonary disease, unspecified (ICD-10) Kidney disease ?N28.9 - Disorder of kidney and ureter, unspecified (ICD-10) Exam Constitutional Vital Signs, click to edit/add: Last Vital Signs Temp 97.5 F L 12/22/23 06:00 Pulse 80 12/22/23 07:00 Resp 19 12/22/23 07:00 BP 157/58 H 12/22/23 06:30 Pulse Ox 97 12/22/23 07:00 O2 Del Method Nasal Cannula 12/22/23 06:30 O2 Flow Rate 3 12/22/23 06:30 Course Vital Signs Vital signs: Vital Signs Pulse Oximetry 98 12/22/23 05:59 Temperature 97.5 F L 12/22/23 06:00 Pulse Rate 80 12/22/23 07:00 Respiratory Rate 19 12/22/23 07:00 Blood Pressure 157/58 H 12/22/23 06:30 Pulse Oximetry 97 12/22/23 07:00 Oxygen Delivery Method Nasal Cannula 12/22/23 06:30 Oxygen Delivery Flow Rate 3 12/22/23 06:30 Medical Decision Making MDM Narrative Medical decision making narrative: Several issues were identified. Her blood sugar was 30 upon arrival and that has been corrected. She was found to have right second third and fourth rib fractures, no pneumothorax. She has a laceration on her left leg. Examination shows this to be more of a skin tear and this cannot be closed with sutures. Dressing applied. Myoglobin and CPK are ordered and are pending at the time of this dictation. Differential Diagnosis Differential Diagnosis: Intracranial hemorrhage, C-spine fracture, rib fracture, pneumothorax Medical Records Medical records reviewed: Yes I reviewed the patient's medical records Lab Data Lab results reviewed: Yes I reviewed the patient's lab results Labs: Lab Results 12/22/23 12/22/23 12/22/23 Range/Units 06:00 06:40 06:45 WBC 8.6 (4.0-11.0) 10^3/uL RBC 3.29 L (4.20-5.40) 10^6/uL Hgb 10.3 L (12.0-16.0) g/dL Hct 33.7 L (36.0-48.0) % MCV 102.4 H (81.0-99.0) fL MCH 31.3 (26.7-34.0) pg MCHC 30.6 (29.9-35.2) g/dL RDW 14.6 (11.0-15.0) % Plt Count 303 (150-450) 10^3/uL MPV 8.1 L (9.5-13.5) fL Neut % (Auto) 76.2 H (43.0-75.0) % Lymph % (Auto) 12.8 L (20.5-60.0) % Trinity % (Auto) 9.0 (1.7-12.0) % Eos % (Auto) 0.2 L (0.9-7.0) % Baso % (Auto) 1.0 (0.2-2.0) % Neut # (Auto) 6.5 (1.4-6.5) 10^3/uL Lymph # (Auto) 1.1 L (1.2-3.8) 10^3/uL Trinity # (Auto) 0.8 (0.3-0.8) 10^3/uL Eos # (Auto) 0.0 (0.0-0.7) 10^3/uL Baso # (Auto) 0.1 (0.0-0.1) 10^3/uL Abs Immat Gran (auto) 0.07 H (0.00-0.03) 10^3/uL Imm/Tot Granulo (auto) 0.8 H (0.0-0.5) % Puncture Site Rr ABG pH 7.300 L (7.350-7.450) ABG pCO2 61.0 H* (35.0-45.0) mmHg ABG pO2 85.8 (80.0-100.0) mmHg ABG HCO3 30.0 H (22.0-26.0) mmol/L ABG O2 Saturation 96.8 % ABG Base Excess 3.6 H (-2.0-2.0) mmol/L Drew Test Positive (POSITIVE) Sodium 136 (136-145) mmol/L Potassium 3.6 (3.5-5.1) mmol/L Chloride 100 (98-107) mmol/L Carbon Dioxide 30.7 (21.0-32.0) mmol/L Anion Gap 8.9 BUN 17.0 (7.0-18.0) mg/dL Creatinine 1.24 H (0.55-1.02) mg/dL Est GFR ( Amer) 53 L (>=60) Est GFR (Non-Af Amer) 44 L (>=60) BUN/Creatinine Ratio 13.7 Glucose 23 L* (74-106) mg/dL Lactate 1.6 (0.4-2.0) mmol/L Calcium 9.0 (8.5-10.1) mg/dL Total Bilirubin 0.3 (0.2-1.0) mg/dL AST 33 (15-37) U/L ALT 26 (14-59) U/L Alkaline Phosphatase 217 H (46-116) U/L Troponin I High Sens 12.8 (4.0-51.3) pg/mL Total Protein 7.0 (6.4-8.2) g/dL Albumin 2.8 L (3.4-5.0) g/dL Globulin 4.2 g/dL Albumin/Globulin Ratio 0.7 POC Glucose 30 L* (74-106) mg/dL 12/22/23 Range/Units 07:28 WBC (4.0-11.0) 10^3/uL RBC (4.20-5.40) 10^6/uL Hgb (12.0-16.0) g/dL Hct (36.0-48.0) % MCV (81.0-99.0) fL MCH (26.7-34.0) pg MCHC (29.9-35.2) g/dL RDW (11.0-15.0) % Plt Count (150-450) 10^3/uL MPV (9.5-13.5) fL Neut % (Auto) (43.0-75.0) % Lymph % (Auto) (20.5-60.0) % Trinity % (Auto) (1.7-12.0) % Eos % (Auto) (0.9-7.0) % Baso % (Auto) (0.2-2.0) % Neut # (Auto) (1.4-6.5) 10^3/uL Lymph # (Auto) (1.2-3.8) 10^3/uL Trinity # (Auto) (0.3-0.8) 10^3/uL Eos # (Auto) (0.0-0.7) 10^3/uL Baso # (Auto) (0.0-0.1) 10^3/uL Abs Immat Gran (auto) (0.00-0.03) 10^3/uL Imm/Tot Granulo (auto) (0.0-0.5) % Puncture Site ABG pH (7.350-7.450) ABG pCO2 (35.0-45.0) mmHg ABG pO2 (80.0-100.0) mmHg ABG HCO3 (22.0-26.0) mmol/L ABG O2 Saturation % ABG Base Excess (-2.0-2.0) mmol/L Drew Test (POSITIVE) Sodium (136-145) mmol/L Potassium (3.5-5.1) mmol/L Chloride (98-107) mmol/L Carbon Dioxide (21.0-32.0) mmol/L Anion Gap BUN (7.0-18.0) mg/dL Creatinine (0.55-1.02) mg/dL Est GFR ( Amer) (>=60) Est GFR (Non-Af Amer) (>=60) BUN/Creatinine Ratio Glucose (74-106) mg/dL Lactate (0.4-2.0) mmol/L Calcium (8.5-10.1) mg/dL Total Bilirubin (0.2-1.0) mg/dL AST (15-37) U/L ALT (14-59) U/L Alkaline Phosphatase (46-116) U/L Troponin I High Sens (4.0-51.3) pg/mL Total Protein (6.4-8.2) g/dL Albumin (3.4-5.0) g/dL Globulin g/dL Albumin/Globulin Ratio POC Glucose 75 (74-106) mg/dL Imaging Data CT scan - head: Radiologist's impression: ITS Impressions Abdomen/Pelvis CT 12/22/23 07:20 IMPRESSION: 1. Nondisplaced fractures of the right second, third, and fourth ribs; new compared to 10/27/2023. 2. Elevated left hemidiaphragm and mild atelectasis versus infiltrates within left lung base. 3. Known aortic dissection. Evaluation is limited on today's study due to technique, however there does not appear to be any appreciable change. Dissection extends to or just below the superior mesenteric artery. This is below the level of imaging on the prior study. 4. Bilateral nonobstructing nephrolithiasis, moderate cortical atrophy, and bilateral renal cysts versus hypodense nodules. Consider follow-up. 5. Age indeterminant multilevel compression fractures of lumbar spine. Electronically authenticated by: ERNIE LOWERY Date: 12/22/2023 08:[address] 12/22/23 07:20 IMPRESSION: 1. No acute cervical spine fracture. 2. Persistent straightening of the cervical spine with loss of normal cervical doses that may be positional or related to muscle spasm, related to patient's degenerative disc disease. 3. Stable multilevel degenerative disc disease of the cervical spine as described. 4. Carotid artery atherosclerosis. Electronically authenticated by: KATHY MELCHOR Date: 12/22/2023 07:[address] 12/22/23 07:20 IMPRESSION: 1. Nondisplaced fractures of the right second, third, and fourth ribs; new compared to 10/27/2023. 2. Elevated left hemidiaphragm and mild atelectasis versus infiltrates within left lung base. 3. Known aortic dissection. Evaluation is limited on today's study due to technique, however there does not appear to be any appreciable change. Dissection extends to or just below the superior mesenteric artery. This is below the level of imaging on the prior study. 4. Bilateral nonobstructing nephrolithiasis, moderate cortical atrophy, and bilateral renal cysts versus hypodense nodules. Consider follow-up. 5. Age indeterminant multilevel compression fractures of lumbar spine. Electronically authenticated by: ERNIE LOWERY Date: 12/22/2023 08:[address] 12/22/23 07:20 IMPRESSION: 1. There is no acute infarct, hemorrhage, or acute intracranial injury. 2. No definite skull fractures are seen. 3. Minimal air-fluid level in the right maxillary antrum most likely secondary to inflammatory changes. There is slight deviation of the left nasal bone, without significant displacement. There could be a nondisplaced fracture. This was normal-appearing on the previous examination. Electronically authenticated by: KATIE AU Date: 12/22/2023 07:37 ECG Data Attestation: I personally reviewed and interpreted this ECG as follows: (EKG on my interpretation shows sinus rhythm with a rate of 75 and artifact.) Discharge Plan Discharge Chief Complaint: Fall Clinical Impression: Altered consciousness, Laceration of left leg, Accidental fall from chair, Hypoglycemia, Multiple rib fractures Patient Disposition: Admitted As Inpatient Time of Disposition Decision: 08:47 Condition: Fair
[2023-12-22 09:15] LABS: Creatine Kinase 109 U/L (26-192)
[2023-12-22 09:18] LABS: Myoglobin 263 ng/mL (9-82)
[2023-12-22 09:26] LABS: Glucometer 63 mg/dL (74-106)
--- NOTE | 2023-12-22 09:56 | ECG_ITS ---
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
--- NOTE | 2023-12-22 10:18 | CM.NOTE ---
Rounds made with Dr. Adair. Ms. Orellana explains happenings that bring her to ER to Dr. Adair. Dr. Adair discusses potential plan of care.
[2023-12-22 11:00] LABS: Glucometer 79 mg/dL (74-106)
--- NOTE | 2023-12-22 11:03 | SWNOTE1 ---
SW spoke to case management and pt was at rehab a few weeks ago, but was cut and returned home. Pt will likely need skilled again and she is a precert.
[2023-12-22 11:23] LABS: Estimated Average Glucose 105 mg/dL; Glycohemoglobin A1C 5.3 % (4.5-6.2)
--- NOTE | 2023-12-22 11:31 | P.HP_ITS ---
HPI H&P: HPI History of Present Illness Chief complaint: other/ RIB FRACTURES/HYPOGLYCEMIA Narrative: 63-year-old female who is wheelchair-bound, lives by herself was brought in by EMS after she fell from the wheelchair. Patient was unable to get herself up and remained on the floor for a few hours. On arrival, she was found to have increased work of breathing, was noted to be drowsy and confused and was not quite sure of the circumstances of her fall, duration of the fall. She was found to have severe hypoglycemia with blood glucose of 27 and received IV D50 and was started on D10 continuous infusion. Patient had thoracic aortic aneurysm repair about 5 to 6 weeks ago at [facility] and was discharged to rehab for postoperative recovery and rehab. She was discharged home from rehab. She is wheelchair-bound, lives by herself but is fairly independent in her ADLs. She has multiple bruises all over her body but denies any falls other than last night for which she was brought for evaluation today. Patient appears short of breath at rest with abdominal breathing, drowsy and lethargic but does not appear to be confused anymore. About 2 weeks ago she had a laceration from kicking a box while she was in wheelchair for which she had sutures placed on her left lower extremity. Left lower extremity has significant erythema, swelling and induration that is extending from ankle to just below her knee joint. She still has sutures in place from 2 weeks ago. She is unsure of how long her left lower extremity has looked like this but the appearance is clearly consistent with cellulitis. Opioid HPI Opioid Management Most Recent Pain and Opioid Data: Last Pain Scale 10 12/22/23 08:46 Last ED Pain Assessment 12/22/23 07:50 Last MAR Pain Assessment 12/22/23 08:46 Last ORT Total Score 1 12/22/23 09:48 Last ORT Risk Category Low Risk 12/22/23 09:48 Review of Systems ROS Status of ROS 10 or more systems reviewed and unremark able except as noted in history and below [facility] Medical History (Updated 12/22/23 @ 11:36 by Shaikh Giovany MD) Morbid obesity ?E66.01 - Morbid (severe) obesity due to excess calories (ICD-10) Diabetes ?E11.9 - Type 2 diabetes mellitus without complications (ICD-10) High cholesterol ?E78.00 - Pure hypercholesterolemia, unspecified (ICD-10) Urinary incontinence ?R32 - Unspecified urinary incontinence (ICD-10) Hidradenitis suppurativa ?L73.2 - Hidradenitis suppurativa (ICD-10) Bipolar 1 disorder, depressed, severe ?F31.4 - Bipolar disorder, current episode depressed, severe, without psychotic features (ICD-10) Asthma ?J45.909 - Unspecified asthma, uncomplicated (ICD-10) Sleep apnea ?G47.30 - Sleep apnea, unspecified (ICD-10) COPD (chronic obstructive pulmonary disease) ?J44.9 - Chronic obstructive pulmonary disease, unspecified (ICD-10) Kidney disease ?N28.9 - Disorder of kidney and ureter, unspecified (ICD-10) Surgical History (Updated 12/22/23 @ 11:33 by Shaikh Giovany MD) H/O thoracic aortic aneurysm repair ?Z98.890 - Other specified postprocedural states (ICD-10) ?Z86.79 - Personal history of other diseases of the circulatory system (ICD- 10) Social History (Updated 12/22/23 @ 11:42 by Shaikh Giovany MD) Within the past year, how often did you have a drink containing alcohol: monthly or less Within the past year, how many standard drinks containing alcohol did you have on a typical day: 1 or 2 Within the past year, how often did you have six or more drinks on one occasion: never Total score: 0 Score interpretation: A score less than 3 is consistent with normal alcohol consumption. Non-prescribed substance use: denies use Highest level of school completed/degree received: Bachelor's degree Meds Home Medications and Allergies Home Medications ?Medication ?Instructions ?Recorded ?Confirmed ?Type adalimumab 40 mg/0.4 mL 80 mg subcut Q14D 10/27/23 12/22/23 History subcutaneous pen kit (Humira(CF) Pen) albuterol sulfate 90 mcg/actuation 2 puff inhalation Q4H PRN 10/27/23 12/22/23 History aerosol inhaler shortness of breath or wheezing alprazolam 0.5 mg tablet 0.5 mg PO .QHS 10/27/23 12/22/23 History dapagliflozin propanediol 5 mg 5 mg PO .once daily 10/27/23 12/22/23 History tablet (Farxiga) famotidine 20 mg tablet 20 mg PO Q12H 10/27/23 12/22/23 History fluconazole 150 mg tablet 150 mg PO QWEEK 10/27/23 12/22/23 History fluticasone 500 mcg-salmeterol 50 1 inh inhalation Q12H 10/27/23 12/22/23 History mcg/dose blistr powdr for inhalation fluticasone propionate 50 1 spray intranasal Q12H 10/27/23 12/22/23 History mcg/actuation nasal spray,suspension gabapentin 300 mg capsule 300 mg PO TID 10/27/23 12/22/23 History glipizide 10 mg tablet, extended 10 mg PO BIDWM 10/27/23 12/22/23 History release 24 hr insulin glargine 100 unit/mL (3 65 unit subcut .QHS 10/27/23 12/22/23 History mL) subcutaneous pen (Lantus Solostar U-100 Insulin) lamotrigine 100 mg tablet 100 mg PO Q12H 10/27/23 12/22/23 History montelukast 10 mg tablet 10 mg PO .once a day 10/27/23 12/22/23 History rosuvastatin 10 mg tablet 10 mg PO .once daily 10/27/23 12/22/23 History tirzepatide 10 mg/0.5 mL 10 mg subcut QWEEK 10/27/23 12/22/23 History subcutaneous pen injector (Senthil) tolterodine 4 mg capsule,extended 4 mg PO .once dailly 10/27/23 12/22/23 History release 24 hr topiramate 200 mg tablet 200 mg PO BID 10/27/23 12/22/23 History umeclidinium 62.5 mcg/actuation 1 inh inhalation Q24H 10/27/23 12/22/23 History blister powder for inhalation (Incruse Ellipta) venlafaxine 150 mg 150 mg PO BID 10/27/23 12/22/23 History capsule,extended release 24 hr sulfamethoxazole 800 1 tab PO BID 12/22/23 12/22/23 History mg-trimethoprim 160 mg tablet Allergies Allergy/AdvReac Type Severity Reaction Status Date / Time erythromycin base Allergy Intermediate swelling Verified 12/22/23 06:11 Exam Constitutional Vital Signs, click to edit/add: Last Vital Signs Temp 97.8 F 12/22/23 09:49 Pulse 86 12/22/23 09:49 Resp 22 H 12/22/23 09:49 BP 153/68 H 12/22/23 09:49 Pulse Ox 98 12/22/23 11:09 O2 Del Method Nasal Cannula 12/22/23 09:49 O2 Flow Rate 3 12/22/23 11:09 General appearance: cooperative, lethargic and ill appearing Nutritional appearance: obese Orientation/consciousness: Yes lethargic HENMT Other: Patient noted around right eye and nasal bridge Chest Other: Wound From surgical scar is well-healed with no signs of infection Respiratory Effort & inspection: tachypneic, labored and uses accessory muscles (Abdominal breathing) Auscultation: diminished lung sounds Cardio Common normals: regular rate, regular rhythm, S1 normal heart sound and S2 normal heart sound GI Common normals: soft to palpation, non-tender and no hepatosplenomegaly Other: Bruising noted on lower abdomen Extremity Other: Right LE - chronic scabs/disoloration. Right RLE - Old laceration with stitches. Pain/tenderness/skin induration from ankle to just below knee. Neuro Common normals: oriented x3, moves all extremities and no focal motor deficits Sensorium/orientation: lethargic and somnolent Psych Common normals: mental status grossly normal, thought process normal, denies homicidal ideation and denies suicidal ideation Results Labs Labs: Short CBC 12/22/23 Range/Units 06:00 WBC 8.6 (4.0-11.0) 10^3/uL Hgb 10.3 L (12.0-16.0) g/dL Hct 33.7 L (36.0-48.0) % Plt Count 303 (150-450) 10^3/uL BMP 12/22/23 06:00 Sodium 136 Potassium 3.6 Chloride 100 Carbon Dioxide 30.7 BUN 17.0 Creatinine 1.24 H Glucose 23 L* Calcium 9.0 Cardiac Enzymes 12/22/23 Range/Units 06:00 Total Creatine Kinase 109 (26-192) U/L Liver Function 12/22/23 Range/Units 06:00 Total Bilirubin 0.3 (0.2-1.0) mg/dL AST 33 (15-37) U/L ALT 26 (14-59) U/L Alkaline Phosphatase 217 H (46-116) U/L Albumin 2.8 L (3.4-5.0) g/dL ABG ABG results: 12/22/23 06:45 ABG pH 7.300 L ABG pCO2 61.0 H* ABG pO2 85.8 ABG HCO3 30.0 H ABG O2 Saturation 96.8 ABG Base Excess 3.6 H Assessment and Plan Assessment and Plan (1) Acute and chronic respiratory failure with hypercapnia: Assessment and Plan: Refusing BIPAP therapy. She also has nasal fracture. We will attempt High flow O2 to help with work of breathing/hypercapnia (2) Altered consciousness: Assessment and Plan: multifactorial - due to hypoglycemia and acute resp failure with hypercapnia. On d5-1/2 NS now. Recheck ABG - still lethargic but improved from before. If still hypercapnic, will initiate BIPAP. (3) Cellulitis of left leg: Assessment and Plan: Due to laceration 2 weeks ago. Sutures still in place- further increasing the risk of SSTI. Remove sutures. Start on IV vancomycin/zosyn. F/u blood cx. (4) Hypoglycemia: Assessment and Plan: On D5-0.45 NS. Monitor blood glucose closely. D/c long acting insulin for now and can resume once blood glucose is consistently normal. (5) Multiple rib fractures: Assessment and Plan: From her fall. PT/OT eval. Combination of IV/Oral narcotics for pain. Qualifiers: Encounter type: subsequent encounter Fracture healing: with routine healing Fracture type: closed Laterality: right Qualified Code(s): S22.41XD - Multiple fractures of ribs, right side, subsequent encounter for fracture with routine healing (6) Laceration of left leg: Assessment and Plan: From fall 2 weeks ago, has stitches in place. Need to remove stitches. Wound consult Qualifiers: Encounter type: subsequent encounter Qualified Code(s): S81.812D - Laceration without foreign body, left lower leg, subsequent encounter (7) Accidental fall from chair: Assessment and Plan: Due to hypoglycemia, generalized weakness. OT/PT eval. Qualifiers: Encounter type: subsequent encounter Qualified Code(s): W07.XXXD - Fall from chair, subsequent encounter (8) Diabetes: Assessment and Plan: P/w hypoglycemia,. On D5-0.45 NS. Monitor glucose closely. Hold Levemir Qualifiers: Diabetes mellitus complication detail: with polyneuropathy Diabetes mellitus complication status: with neurologic complications Diabetes mellitus mcc insulin use: with mcc use Diabetes mellitus type: type 2 Qualified Code(s): E11.42 - Type 2 diabetes mellitus with diabetic polyneuropathy; Z79.4 - senior care (current) use of insulin (9) High cholesterol: Assessment and Plan: C/w statin (10) Bipolar 1 disorder, depressed, severe: Assessment and Plan: c/w effexor/topamax and lamotrigine (11) Sleep apnea: Assessment and Plan: Not compliant with CPAP. Qualifiers: Sleep apnea type: obstructive Qualified Code(s): G47.33 - Obstructive sleep apnea (adult) (pediatric) (12) COPD (chronic obstructive pulmonary disease): Assessment and Plan: No active wheezing noted. Diminished air movement due to obesity/OHS. C/w home medications. Qualifiers: COPD type: unspecified COPD Qualified Code(s): J44.9 - Chronic obstructive pulmonary disease, unspecified (13) H/O thoracic aortic aneurysm repair: Assessment and Plan: Surgical scar seems well healed. (14) Morbid obesity: Assessment and Plan: On mounjaro for T2 DM and weight loss. Will benefit from intensive lifestyle modifications. Defer to PCP (15) Ambulatory dysfunction: Assessment and Plan: Multifactorial, due to obesty, multiple comorbid conditions. PT/OT eval. WIll likely need rehab
--- NOTE | 2023-12-22 11:31 | SWNOTE1 ---
SW met with pt to discuss dc needs. Pt has been at home for a few weeks now. She uses a wheelchair at home and wears 3 liters of home oxygen, unsure of company. Pt was at [facility] in [place] for rehab. SW asked if her insurance cut her? Pt stated no she wanted to go home. SW asked if she left AMA or was discharged, she voiced she was discharged. SW asked if she left on good terms and she stated yes. SW let pt know that there is a good chance she will need SNF again. Pt would like to try to get back in to [facility]. SW to call and see if they have beds. SW did speak with pt about long term care social worker care eventually since she lives at home alone and had a fall. Pt voiced she does not want to do that. SW did let her know she has Medicaid as secondary so many places take that for [facility]. Pt again voiced she does not want that, but she is open to rehab. Possibly after rehab could be an assisted living candidate as well. Important Message from Medicare reviewed and discussed with patient. Pt. verbalized understanding and signed the form. Original given to patient and copy placed in patient?s chart. SW called and left voicemail for Payton in admissions at [facility].
--- NOTE | 2023-12-22 12:02 | SWNOTE1 ---
SW had message from OT and they are recommending SNF. Pt also told OT that she was set up with HH and they were supposed to come at 5:00 this evening, [facility]. SW called [facility] and she had them back in 2019, but not currently. SW to see what HH was set up once she was discharged from [facility] when they call SW back.
[2023-12-22 12:21] LABS: HCO3 ABG 30.6 mmol/L (22.0-26.0); PO2 ABG 78.5 mmHg (80.0-100.0); pH ABG 7.316 (7.350-7.450)
[2023-12-22 12:22] LABS: Allen Test POSITIVE (POSITIVE); Base Excess ABG 4.4 mmol/L (-2.0-2.0); Liters per Minute 3; O2 Mode NASAL CANNULA; Oxygen Saturation ABG 95.7 %; Puncture Site R RADIAL
--- NOTE | 2023-12-22 12:29 | SWNOTE1 ---
ONEIDA has not heard back from Payton at [facility], ONEIDA faxed over referral and will call again.
[2023-12-22] MEDS: VENLAFAXINE HCL ER 150 MG CAPSULE PO (13:24)
[2023-12-22] MEDS: LAMOTRIGINE 100 MG TABLET PO ×2 (13:29→21:45)
[2023-12-22] MEDS: SOLIFENACIN SUCCINATE 10 MG TABLET PO (13:29)
[2023-12-22] MEDS: MONTELUKAST SODIUM 10 MG TABLET PO (13:32)
--- NOTE | 2023-12-22 13:32 | SWNOTE1 ---
ONEIDA spoke to Louis from [facility] and she requested SW fax referral to a different number that she provided to SW. Louis was able to see that pt was at there facility, she will review the referral and get back to ONEIDA.
[2023-12-22] MEDS: FLUTICASONE PROPIONATE 50 MCG NASAL SPRAY 1 SPRAY NS ×2 (13:33→21:45)
[2023-12-22] MEDS: ENOXAPARIN SODIUM 60 MG/0.6 ML SYRINGE SUBQ ×2 (13:33→21:45)
[2023-12-22] MEDS: FAMOTIDINE 20 MG TABLET PO ×2 (13:33→21:45)
[2023-12-22] MEDS: VANCOMYCIN HCL 2,000 MG in 0.9 % SODIUM CHLORIDE 500 ML 250 MG IV (13:33)
[2023-12-22] MEDS: TOPIRAMATE 100 MG TABLET 200 MG PO ×2 (13:33→21:45)
[2023-12-22] MEDS: ATORVASTATIN CALCIUM 40 MG TABLET PO (13:33)
[2023-12-22] MEDS: PNEUMOCOCCAL 23 VACCINE 25 MCG/0.5 ML VIAL IM (13:34)
[2023-12-22] MEDS: DEXTROSE 5 %-0.45 % SOD CHLORD 1,000 ML 125 ML IV ×2 (13:38→21:49)
--- NOTE | 2023-12-22 14:09 | W.PM.WC ---
Wound Consult Note Assessment and Plan (1) Acute and chronic respiratory failure with hypercapnia: (2) Altered consciousness: (3) Cellulitis of left leg: (4) Hypoglycemia: (5) Multiple rib fractures: Qualifiers: Encounter type: subsequent encounter Fracture healing: with routine healing Fracture type: closed Laterality: right Qualified Code(s): S22.41XD - Multiple fractures of ribs, right side, subsequent encounter for fracture with routine healing (6) Laceration of left leg: Reason for Consult: LLE wound Assessment and Plan: Patient with [id number] open laceration after falling out of her wheelchair at home. Patient had a low blood sugar. Currently in bed with physical therapy assisting with transferring to bedside commode. 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 Diabetes mellitus complication status: with neurologic complications Diabetes mellitus complication detail: with polyneuropathy Qualified Code(s): E11.42 - Type 2 diabetes mellitus with diabetic polyneuropathy; Z79.4 - shelter (current) use of insulin (9) High cholesterol: (10) Bipolar 1 disorder, depressed, severe: (11) Sleep apnea: Qualifiers: Sleep apnea type: obstructive Qualified Code(s): G47.33 - Obstructive sleep apnea (adult) (pediatric) (12) COPD (chronic obstructive pulmonary disease): Qualifiers: COPD type: unspecified COPD Qualified Code(s): J44.9 - Chronic obstructive pulmonary disease, unspecified (13) H/O thoracic aortic aneurysm repair: (14) Morbid obesity: (15) Ambulatory dysfunction: Plan LLE open laceration with measurements as above. Draining moderate amount of serous drainage. Edema and bruising noted. Also with chronic hemosiderin staining noted. This is normal for patient. Patient also with a sutured laceration distal to open lac. Sutures intact. No drainage noted. Patient's coccyx and sacral skin intact. Heels intact/dry. Patient does have loose pendular skin from right inner thigh with hidradenitis lesions that are currently not draining. There is some areas of excoriation to this pendular area. Treatment plan: Xeroform to open laceration and to sutured laceration daily. Cover with gauze. Secure with kerlix and lightly wrapped kiara bandage Triad as needed to excoriated skin Pillowcases to skin folds to keep skin Photos and orders in chart. Please call [phone] with any questions or concerns. Good Krueger RN, CWON
--- NOTE | 2023-12-22 14:23 | SWNOTE1 ---
ONEIDA spoke with Louis singh at [facility] and she requested ONEIDA email over referral due to the fax not working. Referral sent to [facility] by email. Referral included face sheet, ED note, H&P, provider notes, case management report, nursing notes, diagnostic imaging, med list, and OT note.
--- NOTE | 2023-12-22 14:27 | SWNOTE1 ---
ONEIDA sent PT note to Louis as well.
[2023-12-22] MEDS: PIPERACILLIN SODIUM/TAZOBACTAM 3.375 GM in 0.9 % SODIUM CHLORIDE 50 ML IV ×2 (16:02→23:00)
[2023-12-22] MEDS: IPRATROPIUM/ALBUTEROL SULFATE 3 ML AMPUL.NEB IH ×2 (16:30→23:19)
[2023-12-22 16:52] LABS: Glucometer 50 mg/dL (74-106)
[2023-12-22 19:21] LABS: Glucometer 75 mg/dL (74-106)
[2023-12-22 20:29] LABS: Glucometer 62 mg/dL (74-106)
[2023-12-22 21:00] LABS: Bilirubin Urine NEGATIVE (NEGATIVE); Blood Urine NEGATIVE (NEGATIVE); Clarity Urine CLEAR (CLEAR); Color Urine LT. YELLOW (YELLOW); Glucose Urine UA NEGATIVE (NEGATIVE); Ketones Urine NEGATIVE (NEGATIVE); Leukocyte Esterase Urine TRACE (NEGATIVE); Nitrite Urine NEGATIVE (NEGATIVE); Protein Urine NEGATIVE (NEG/TRACE); Specific Gravity Urine <=1.005 (1.005-1.025); Urobilinogen Urine 0.2 EU/dL (0.2-1.0)
[2023-12-22 21:02] LABS: Urine Microscopic Indicated YES
[2023-12-22 21:07] LABS: Amorphous Sediment Urine RARE; Bacteria Urine NONE SEEN #/HPF (NONE SEEN); Cast Seen? NONE SEEN #/LPF (NONE SEEN); Crystals Seen? None Seen #/HPF (None Seen); Mucus Urine NONE SEEN (NONE SEEN); RBC Urine NONE SEEN #/HPF (0-2); Squamous Epithelial Cell Urine MODERATE #/LPF (NONE/RARE)
[2023-12-22 21:08] LABS: Starch Urine RARE; Urine Culture Indicated NO
[2023-12-22] MEDS: GABAPENTIN 300 MG CAPSULE PO (21:45)
[2023-12-22] MEDS: ALPRAZOLAM 0.5 MG TABLET PO (21:45)
[2023-12-22] MEDS: BUDESONIDE 0.5 MG/2 ML AMPULE NEB IH (23:20)
[2023-12-23] VITALS (15 sets, daily range): BP systolic 123–147; BP diastolic 56–69; PULSE 88–110; TEMP 36.8–37.2; O2SAT 91–96
[2023-12-23 00:04] LABS: Glucometer 32 mg/dL (74-106)
[2023-12-23] MEDS: DEXTROSE 50 %-WATER 25 GM/50 ML SYRINGE IV (00:11)
[2023-12-23 00:33] LABS: Glucometer 122 mg/dL (74-106)
[2023-12-23 01:05] LABS: Glucometer 107 mg/dL (74-106)
[2023-12-23 02:20] LABS: Glucometer 78 mg/dL (74-106)
[2023-12-23] MEDS: DEXTROSE 10 % IN WATER 1,000 ML 50 ML IV (02:44)
[2023-12-23 03:03] LABS: Glucometer 116 mg/dL (74-106)
[2023-12-23] MEDS: IPRATROPIUM/ALBUTEROL SULFATE 3 ML AMPUL.NEB IH ×4 (04:09→22:24)
[2023-12-23 04:41] LABS: Glucometer 118 mg/dL (74-106)
[2023-12-23 05:46] LABS: Basophils Absolute Auto 0.1 10^3/uL (0.0-0.1); Basophils Percent Auto 1.2 % (0.2-2.0); Eosinophils Absolute Auto 0.2 10^3/uL (0.0-0.7); Eosinophils Percent Auto 2.4 % (0.9-7.0); Hematocrit 29.2 % (36.0-48.0); Hemoglobin 8.8 g/dL (12.0-16.0); Immature Granulocytes Abs Auto 0.03 10^3/uL (0.00-0.03); Immature Granulocytes Pct Auto 0.4 % (0.0-0.5); Lymphocytes Percent Auto 25.5 % (20.5-60.0); Mean Corpuscular HGB Conc 30.1 g/dL (29.9-35.2); Mean Corpuscular Hemoglobin 30.8 pg (26.7-34.0); Mean Corpuscular Volume 102.1 fL (81.0-99.0); Mean Platelet Volume 8.1 fL (9.5-13.5); Monocytes Absolute Auto 1.2 10^3/uL (0.3-0.8); Neutrophils Absolute Auto 4.3 10^3/uL (1.4-6.5); Neutrophils Percent Auto 55.5 % (43.0-75.0); Platelet Count 291 10^3/uL (150-450); Red Blood Count 2.86 10^6/uL (4.20-5.40); White Blood Count 7.8 10^3/uL (4.0-11.0)
[2023-12-23 05:58] LABS: Alanine Aminotransferase 21 U/L (14-59); Albumin Globulin Ratio 0.7; Albumin Level 2.5 g/dL (3.4-5.0); Alkaline Phosphatase 171 U/L (46-116); Anion Gap 11.8; Aspartate Amino Transferase 26 U/L (15-37); BUN Creatinine Ratio 10.7; Bilirubin Total 0.4 mg/dL (0.2-1.0); Calcium 8.7 mg/dL (8.5-10.1); Carbon Dioxide 29.1 mmol/L (21.0-32.0); Chloride 101 mmol/L (98-107); Estimated GFR (African America 60 (>=60); Estimated GFR (Non-African Ame 49 (>=60); Globulin 3.6 g/dL; Glucose 101 mg/dL (74-106); Potassium 3.9 mmol/L (3.5-5.1); Sodium 138 mmol/L (136-145); Total Protein 6.1 g/dL (6.4-8.2)
[2023-12-23 06:01] LABS: Creatine Kinase 72 U/L (26-192)
[2023-12-23] MEDS: PIPERACILLIN SODIUM/TAZOBACTAM 3.375 GM in 0.9 % SODIUM CHLORIDE 50 ML IV ×2 (07:04→15:55)
--- NOTE | 2023-12-23 09:07 | SWNOTE1 ---
ONEIDA had email from Louis at [facility] and they are able to accept and will start precert. They are requesting PASR be completed, SW to complete.
--- NOTE | 2023-12-23 09:17 | SWNOTE1 ---
SW received a message from case management and doctor would like hospice to be consulted for pt. SW to speak with pt.
[2023-12-23] MEDS: SOLIFENACIN SUCCINATE 10 MG TABLET PO (09:46)
[2023-12-23] MEDS: TOPIRAMATE 100 MG TABLET 200 MG PO ×2 (09:46→20:22)
[2023-12-23] MEDS: MONTELUKAST SODIUM 10 MG TABLET PO (09:47)
[2023-12-23] MEDS: ENOXAPARIN SODIUM 60 MG/0.6 ML SYRINGE SUBQ ×2 (09:47→20:22)
[2023-12-23] MEDS: VENLAFAXINE HCL ER 150 MG CAPSULE PO (09:47)
[2023-12-23] MEDS: LAMOTRIGINE 100 MG TABLET PO ×2 (09:47→20:22)
[2023-12-23] MEDS: ATORVASTATIN CALCIUM 40 MG TABLET PO (09:47)
[2023-12-23] MEDS: FAMOTIDINE 20 MG TABLET PO ×2 (09:47→20:22)
[2023-12-23] MEDS: FLUTICASONE PROPIONATE 50 MCG NASAL SPRAY 1 SPRAY NS ×2 (09:47→20:22)
--- NOTE | 2023-12-23 10:01 | PT.DAILY ---
Physical Therapy Daily Note PT Daily Note/Assess Start: 12/23/23 09:44 Freq: Status: Active Protocol: Document 12/23/23 09:49 [email or web address] (Rec: 12/23/23 09:58 SPANFAEDANNE Laptop) Physical Therapy Daily Note/Assessment Time In/Time Out Time In 09:00 Time Out 09:30 Pain In Pain N/A Pain Out Pain N/A Subjective Subjective Pt supine upon arrival. Giovany and Gianna present initially but exit as therapists enter room. Hospice is going to be consulted for pt. Pt states she would like to get to commode to use restroom. Agreeable to have PT/OT assist with this. Therapeutic Activity Time Therapeutic Activity Minutes (minutes) 10 Therapeutic Activity Units 1 Total Physical Therapy Time Total Therapy Minutes 10 Total Physical Therapy Units 1 Edit Result 12/23/23 09:49 JERZY (Rec: 12/23/23 10:01 SPANFALONE Laptop) Physical Therapy Daily Note/Assessment Therapeutic Activity Treatment Bed Mobility Ability Minimum Assist Chair Transfer Ability Minimum Assist Therapeutic Activity Comments Supine>sit with Enio to advance upper body to sit EOB. Sit>stand with pivot to BS commode Enio. Sit>stand from commode to RW once done using restroom - Enio. Pt requires Total assist for pericare. Able to take 3 side steps to sit EOB with RW, Enio of 1 and CGA of 1. Pt returns to supine Enio. Pt remains supine with call light in reach and needs met. Declines further activity at this time. Summary Daily Note Summary Improved transfer ability. Planned hospice consult in near future.
--- NOTE | 2023-12-23 10:08 | PM.IMPN1 ---
Progress Note: A&P Assessment and Plan (1) Acute and chronic respiratory failure with hypercapnia: Assessment and Plan: Acute on chronic respiratory failure with hypercapnia. Refusing to use BiPAP. On high flow oxygen with minimal improvement. Discussed goals of care with patient and she requested evaluation for hospice. (2) Altered consciousness: Assessment and Plan: Improved from admission. Intermittent confusion and lethargy because of hypercapnia. (3) Cellulitis of left leg: Assessment and Plan: Left leg looks better with overnight IV antibiotics. Continue with vancomycin and Zosyn (4) Hypoglycemia: Assessment and Plan: Overnight was hypoglycemic and started back on D10 infusion. Continue with D10 infusion for now. Patient has poor intake with no motivation to eat. (5) Multiple rib fractures: Assessment and Plan: continue with pain control Qualifiers: Encounter type: subsequent encounter Fracture healing: with routine healing Fracture type: closed Laterality: right Qualified Code(s): S22.41XD - Multiple fractures of ribs, right side, subsequent encounter for fracture with routine healing (6) Laceration of left leg: Assessment and Plan: Stitches removed today. Associated with cellulitis. On IV antibiotics Qualifiers: Encounter type: subsequent encounter Qualified Code(s): S81.812D - Laceration without foreign body, left lower leg, subsequent encounter (7) Accidental fall from chair: Assessment and Plan: PT/OT evaluation. Qualifiers: Encounter type: subsequent encounter Qualified Code(s): W07.XXXD - Fall from chair, subsequent encounter (8) Diabetes: Assessment and Plan: Presented with hypoglycemia. Just on sliding scale insulin. Overnight became hypocalcemic on D5 half saline. Started back on D10 infusion. 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 On high flow oxygen. Qualifiers: Sleep apnea type: obstructive Qualified Code(s): G47.33 - Obstructive sleep apnea (adult) (pediatric) (12) COPD (chronic obstructive pulmonary disease): Assessment and Plan: No evidence of active bronchospasm. No wheezing. Continue with home medical patient's Qualifiers: COPD type: unspecified COPD Qualified Code(s): J44.9 - Chronic obstructive pulmonary disease, unspecified (13) H/O thoracic aortic aneurysm repair: Assessment and Plan: Well-healed surgical scar. Monitor. (14) Morbid obesity: Assessment and Plan: Morbid obesity with obesity hypoventilation syndrome and obstructive sleep apnea. However currently, she has little to no oral intake and is hypoglycemic. Continue with D10. (15) Ambulatory dysfunction: Assessment and Plan: PT/OT evaluation (16) Immunosuppressed status: Assessment and Plan: Patient has immunosuppression because of Humira infusion that she received for hidradenitis. She is at high risk of poor outcome, treatment failure from cellulitis because of her immunosuppressive status. Internal Medicine - PN: Subj Subjective Interval history: Seen and examined. No overnight events. Patient refusing to use BiPAP. On high flow oxygen. Still slightly drowsy and lethargic but easily arousable. Intermittently confused. She still has increased work of breathing on high flow oxygen with abdominal breathing. Exam Constitutional Vital Signs, click to edit/add: Last Vital Signs Temp 98.5 F 12/23/23 08:02 Pulse 94 H 12/23/23 09:54 Resp 22 H 12/23/23 08:02 BP 123/56 12/23/23 08:02 Pulse Ox 91 L 12/23/23 08:02 O2 Del Method Vapotherm 12/23/23 08:02 O2 Flow Rate 40 12/23/23 04:43 FiO2 30 12/23/23 04:43 General appearance: cooperative, lethargic and ill appearing Nutritional appearance: obese Orientation/consciousness: Yes lethargic HENNC Other: Bruising noted around right eye and nasal bridge Chest Other: Wound From surgical scar is well-healed with no signs of infection Respiratory Effort & inspection: tachypneic, labored and uses accessory muscles (Abdominal breathing) Auscultation: diminished lung sounds Cardio Common normals: regular rate, regular rhythm, S1 normal heart sound and S2 normal heart sound GI Common normals: soft to palpation, non-tender and no hepatosplenomegaly Other: Bruising noted on lower abdomen Extremity Other: Right LE - chronic scabs/discoloration. Right RLE - Old laceration with stitches. Pain/tenderness/skin induration from ankle to just below knee. Stitches removed today. Neuro Common normals: oriented x3, moves all extremities and no focal motor deficits Sensorium/orientation: lethargic and somnolent Psych Common normals: mental status grossly normal, thought process normal, denies homicidal ideation and denies suicidal ideation Internal Medicine - PN: Obj Da Labs Labs: Laboratory Results - last 24 hr 12/22/23 12/22/23 12/22/23 06:00 10:59 12:11 WBC RBC Hgb Hct MCV MCH MCHC RDW Plt Count MPV Neut % (Auto) Lymph % (Auto) [place] % (Auto) Eos % (Auto) Baso % (Auto) Neut # (Auto) Lymph # (Auto) [place] # (Auto) Eos # (Auto) Baso # (Auto) Abs Immat Gran (auto) Imm/Tot Granulo (auto) Puncture Site R radial ABG pH 7.316 L ABG pCO2 60.0 H* ABG pO2 78.5 L ABG HCO3 30.6 H ABG O2 Saturation 95.7 ABG Base Excess 4.4 H Drew Test Positive O2 Liters/Min 3 Sodium Potassium Chloride Carbon Dioxide Anion Gap BUN Creatinine Est GFR ( Amer) Est GFR (Non-Af Amer) BUN/Creatinine Ratio Glucose Estimat Average Glucose 105 Hemoglobin A1c 5.3 Calcium Total Bilirubin AST ALT Alkaline Phosphatase Total Creatine Kinase Total Protein Albumin Globulin Albumin/Globulin Ratio Urine Color Urine Clarity Urine pH Ur Specific [place] Urine Protein Urine Glucose (UA) Urine Ketones Urine Occult Blood Urine Nitrite Urine Bilirubin Urine Urobilinogen Ur Leukocyte Esterase Urine RBC Urine WBC Ur Squamous Epith Cells Urine Crystals Amorphous Sediment Urine Bacteria Urine Casts Urine Starch Urine Mucus Ur Culture Indicated? POC Glucose 79 12/22/23 12/22/23 12/22/23 16:44 19:19 20:28 WBC RBC Hgb Hct MCV MCH MCHC RDW Plt Count MPV Neut % (Auto) Lymph % (Auto) [place] % (Auto) Eos % (Auto) Baso % (Auto) Neut # (Auto) Lymph # (Auto) [place] # (Auto) Eos # (Auto) Baso # (Auto) Abs Immat Gran (auto) Imm/Tot Granulo (auto) Puncture Site ABG pH ABG pCO2 ABG pO2 ABG HCO3 ABG O2 Saturation ABG Base Excess Drew Test O2 Liters/Min Sodium Potassium Chloride Carbon Dioxide Anion Gap BUN Creatinine Est GFR ( Amer) Est GFR (Non-Af Amer) BUN/Creatinine Ratio Glucose Estimat Average Glucose Hemoglobin A1c Calcium Total Bilirubin AST ALT Alkaline Phosphatase Total Creatine Kinase Total Protein Albumin Globulin Albumin/Globulin Ratio Urine Color Urine Clarity Urine pH Ur Specific [place] Urine Protein Urine Glucose (UA) Urine Ketones Urine Occult Blood Urine Nitrite Urine Bilirubin Urine Urobilinogen Ur Leukocyte Esterase Urine RBC Urine WBC Ur Squamous Epith Cells Urine Crystals Amorphous Sediment Urine Bacteria Urine Casts Urine Starch Urine Mucus Ur Culture Indicated? POC Glucose 50 L 75 62 L 12/22/23 12/22/23 12/23/23 20:50 23:58 00:32 WBC RBC Hgb Hct MCV MCH MCHC RDW Plt Count MPV Neut % (Auto) Lymph % (Auto) [place] % (Auto) Eos % (Auto) Baso % (Auto) Neut # (Auto) Lymph # (Auto) [place] # (Auto) Eos # (Auto) Baso # (Auto) Abs Immat Gran (auto) Imm/Tot Granulo (auto) Puncture Site ABG pH ABG pCO2 ABG pO2 ABG HCO3 ABG O2 Saturation ABG Base Excess Drew Test O2 Liters/Min Sodium Potassium Chloride Carbon Dioxide Anion Gap BUN Creatinine Est GFR ( Amer) Est GFR (Non-Af Amer) BUN/Creatinine Ratio Glucose Estimat Average Glucose Hemoglobin A1c Calcium Total Bilirubin AST ALT Alkaline Phosphatase Total Creatine Kinase Total Protein Albumin Globulin Albumin/Globulin Ratio Urine Color Lt. yellow Urine Clarity Clear Urine pH 7.0 Ur Specific [place] <=1.005 A Urine Protein Negative Urine Glucose (UA) Negative Urine Ketones Negative Urine Occult Blood Negative Urine Nitrite Negative Urine Bilirubin Negative Urine Urobilinogen 0.2 Ur Leukocyte Esterase Trace A Urine RBC None seen Urine WBC 2-5 A Ur Squamous Epith Cells Moderate A Urine Crystals None seen Amorphous Sediment Rare Urine Bacteria None seen Urine Casts None seen Urine Starch Rare Urine Mucus None seen Ur Culture Indicated? No POC Glucose 32 L* 122 H 12/23/23 12/23/23 12/23/23 01:03 02:18 03:00 WBC RBC Hgb Hct MCV MCH MCHC RDW Plt Count MPV Neut % (Auto) Lymph % (Auto) [place] % (Auto) Eos % (Auto) Baso % (Auto) Neut # (Auto) Lymph # (Auto) [place] # (Auto) Eos # (Auto) Baso # (Auto) Abs Immat Gran (auto) Imm/Tot Granulo (auto) Puncture Site ABG pH ABG pCO2 ABG pO2 ABG HCO3 ABG O2 Saturation ABG Base Excess Drew Test O2 Liters/Min Sodium Potassium Chloride Carbon Dioxide Anion Gap BUN Creatinine Est GFR ( Amer) Est GFR (Non-Af Amer) BUN/Creatinine Ratio Glucose Estimat Average Glucose Hemoglobin A1c Calcium Total Bilirubin AST ALT Alkaline Phosphatase Total Creatine Kinase Total Protein Albumin Globulin Albumin/Globulin Ratio Urine Color Urine Clarity Urine pH Ur Specific [place] Urine Protein Urine Glucose (UA) Urine Ketones Urine Occult Blood Urine Nitrite Urine Bilirubin Urine Urobilinogen Ur Leukocyte Esterase Urine RBC Urine WBC Ur Squamous Epith Cells Urine Crystals Amorphous Sediment Urine Bacteria Urine Casts Urine Starch Urine Mucus Ur Culture Indicated? POC Glucose 107 H 78 116 H 12/23/23 12/23/23 04:39 05:19 WBC 7.8 RBC 2.86 L Hgb 8.8 L Hct 29.2 L MCV 102.1 H MCH 30.8 MCHC 30.1 RDW 15.0 Plt Count 291 MPV 8.1 L Neut % (Auto) 55.5 Lymph % (Auto) 25.5 [place] % (Auto) 15.0 H Eos % (Auto) 2.4 Baso % (Auto) 1.2 Neut # (Auto) 4.3 Lymph # (Auto) 2.0 [place] # (Auto) 1.2 H Eos # (Auto) 0.2 Baso # (Auto) 0.1 Abs Immat Gran (auto) 0.03 Imm/Tot Granulo (auto) 0.4 Puncture Site ABG pH ABG pCO2 ABG pO2 ABG HCO3 ABG O2 Saturation ABG Base Excess Drew Test O2 Liters/Min Sodium 138 Potassium 3.9 Chloride 101 Carbon Dioxide 29.1 Anion Gap 11.8 BUN 12.0 Creatinine 1.12 H Est GFR ( Amer) 60 Est GFR (Non-Af Amer) 49 L BUN/Creatinine Ratio 10.7 Glucose 101 Estimat Average Glucose Hemoglobin A1c Calcium 8.7 Total Bilirubin 0.4 AST 26 ALT 21 Alkaline Phosphatase 171 H Total Creatine Kinase 72 Total Protein 6.1 L Albumin 2.5 L Globulin 3.6 Albumin/Globulin Ratio 0.7 Urine Color Urine Clarity Urine pH Ur Specific [place] Urine Protein Urine Glucose (UA) Urine Ketones Urine Occult Blood Urine Nitrite Urine Bilirubin Urine Urobilinogen Ur Leukocyte Esterase Urine RBC Urine WBC Ur Squamous Epith Cells Urine Crystals Amorphous Sediment Urine Bacteria Urine Casts Urine Starch Urine Mucus Ur Culture Indicated? POC Glucose 118 H
--- NOTE | 2023-12-23 10:29 | CM.NOTE ---
Rounds made with Dr. Adair. Dr. Adair discusses treatment plan and removes suture from left lower extremity.
--- NOTE | 2023-12-23 10:45 | SWNOTE1 ---
SW to speak with pt about hospice. ONEIDA did send a message to Louis at [facility]. When pt was there she was a full code and she does have a son and sister. When she was at [facility] her son was not involved.
[2023-12-23] MEDS: BUDESONIDE 0.5 MG/2 ML AMPULE NEB IH ×2 (11:20→22:24)
[2023-12-23 11:33] LABS: Glucometer 126 mg/dL (74-106)
--- NOTE | 2023-12-23 11:34 | SWNOTE1 ---
SW stopped in to assess patient. Pt knew she was at [facility] and knew the year was 2023. When asked the month, pt repeatedly said 2023. ONEIDA spoke to pt about hospice and rehab. ONEIDA thoroughly explained that pt can't do rehab and have hospice care at the same. SW explained the difference between rehab and hospice. ONEIDA advised pt that if she went with hospice she would be at a custodial shelter as she is not safe to go home. After ONEIDA was done explaining, pt just stated, say that again. SW again explained hospice and rehab several times, pt coninuously stated, say that again. SW asked if she knew what hospice was and she shook her head yes. Several times during conversation SW had to say pt's name and ask her to open her eyes. ONEIDA then asked permission to speak with her sister. SW asked her sister's name, pt just stared at SW. ONEIDA asked if it is Lesia, she shook her head yes. ONEIDA asked if she has a son, she shook her head yes. ONEIDA asked his name, she stated EVERARDO. ONEIDA asked if he was involved in her life? She shook her head yes. ONEIDA asked if he came in to the home to help her? She shook her head no. ONEIDA attempted to speak with pt about code status, but pt again stated, say that again. At this time ONEIDA does not feel pt is able to make the decision about discharge planning, hospice or skilled. ONEIDA updated nurse and doctor. Doctor would like SW to attempt to get pt's sister to come in and see the condition pt is in. ONEIDA has left message for sister and will try to call her again.
--- NOTE | 2023-12-23 13:16 | SWNOTE1 ---
ONEIDA spoke to pt's sister, Lesia, and asked if she was able to come see pt? ONEIDA did explain that pt is in and out of confusion. SW explained that SW is assisting with discharge planning and there was discussion of going to rehab and possibility of hospice. When SW mentioned hospice, pt's sister did seem taken back. SW explained that she is on high flow oxygen and unsure of discharge plans but doctor felt it would be good to have her come see pt at this time to assist with discharge planning. ONEIDA did ask about pt's son. She did voice that he is involved. She stated when she was in [place] for her heart he was there every day to see her. She stated he is a, dumbass sometimes. Pt's sister will be coming once she drops off stuff at her office, she is coming from [place]. ONEIDA updated doctor and nurse.
[2023-12-23] MEDS: VANCOMYCIN HCL 2,000 MG in 0.9 % SODIUM CHLORIDE 500 ML 250 MG IV (13:29)
--- NOTE | 2023-12-23 14:36 | SWNOTE1 ---
ONEIDA, Dr. Adair, pt's sister, and pt's son was on phone during conversation in room. At this time pt's sister and pt's son are in agreement to meet with [facility]. The goal is to get her to inpatient unit. ONEIDA did explain that pt can't return home as she can't care for herself at home. Therefore the options are group reservations coordinator at longterm with hospice or checking to see if she qualifies for inpatient at [facility]. Pt's son and sister voice understanding. Pt's son is going to look for POA paperwork and he does think that Lesia is POA. Referral sent to [facility] . Referral included face sheet, ED note, H&P, provider notes, case management report, wound consult, nursing notes, diagnostic imaging, med list, DNR order, and hospice order.
--- NOTE | 2023-12-23 15:34 | SWNOTE1 ---
ONEIDA spoke to referral center at [facility] and they did receive fax and they are working on referral now. ONEIDA emailed Milagro at [facility] and requested she notify ONEIDA once they know time they are coming to see pt tomorrow.
[2023-12-23 16:31] LABS: Glucometer 153 mg/dL (74-106)
[2023-12-23 20:23] LABS: Glucometer 267 mg/dL (74-106)
--- NOTE | 2023-12-23 23:13 | PM.CSD1 ---
Advance Care Planning Advance Care Planning Discussion Advance care planning discussion summary: 63 y o female with hx of chronic resp failure with hypoxia, OHS/NOAM, COPD, recent Thoracic aortic aneurysm admitted currently for acute on chronic resp failure with hypercapnia, cellulitis and symptomatic hypoglycemia requiring continuous D10 infusion. Patient has multiple comorbidities and overall poor prognosis. She has little to no PO intake, has increased work of breathing, using accessory muscles of respiration. I had a long and detailed discussion with her regarding goals of care and end of life care. She requested hospice consult and informed me that she just wants to be comfortable. Since she is intermittently confused and lethargic due to hypercapnia, we also had a meeting with her sister while patient's son on the phone. Both of them informed us that patient had previously stated and informed that she wanted to be DNR CC and that if she got sick, she would like to be made comfortable. Son has POA and he also wished to proceed with hospice consult. packing floor worker was also present during this meeting and will reach out to [facility]. Advance care planning: Comfort One and Medical Orders for Scope of Treatment Does patient have a terminal or chronic,progressive disease such that prognosis is less than 6 months: Yes Advance care planning discussion participants: patient, other surrogate (name/relationship) (Son) and other family member (Sister)
[2023-12-24] VITALS (12 sets, daily range): BP systolic 130–158; BP diastolic 54–75; PULSE 92–109; TEMP 36.6–37.1; O2SAT 84–98
[2023-12-24] MEDS: PIPERACILLIN SODIUM/TAZOBACTAM 3.375 GM in 0.9 % SODIUM CHLORIDE 50 ML IV ×4 (00:13→21:46)
[2023-12-24] MEDS: OXYCODONE HCL 5 MG TABLET PO (00:13)
[2023-12-24] MEDS: DEXTROSE 10 % IN WATER 1,000 ML 50 ML IV (00:13)
[2023-12-24] MEDS: IPRATROPIUM/ALBUTEROL SULFATE 3 ML AMPUL.NEB IH ×4 (04:00→22:43)
[2023-12-24 06:31] LABS: Basophils Absolute Auto 0.1 10^3/uL (0.0-0.1); Basophils Percent Auto 0.8 % (0.2-2.0); Eosinophils Absolute Auto 0.3 10^3/uL (0.0-0.7); Eosinophils Percent Auto 4.1 % (0.9-7.0); Hematocrit 27.4 % (36.0-48.0); Hemoglobin 8.4 g/dL (12.0-16.0); Immature Granulocytes Abs Auto 0.03 10^3/uL (0.00-0.03); Immature Granulocytes Pct Auto 0.4 % (0.0-0.5); Lymphocytes Absolute Auto 0.9 10^3/uL (1.2-3.8); Lymphocytes Percent Auto 12.3 % (20.5-60.0); Mean Corpuscular HGB Conc 30.7 g/dL (29.9-35.2); Mean Corpuscular Hemoglobin 30.9 pg (26.7-34.0); Mean Corpuscular Volume 100.7 fL (81.0-99.0); Mean Platelet Volume 8.1 fL (9.5-13.5); Monocytes Percent Auto 13.8 % (1.7-12.0); Neutrophils Percent Auto 68.6 % (43.0-75.0); Platelet Count 283 10^3/uL (150-450); Red Blood Count 2.72 10^6/uL (4.20-5.40); Red Cell Distribution Width 15.2 % (11.0-15.0); White Blood Count 7.3 10^3/uL (4.0-11.0)
[2023-12-24 06:49] LABS: Alanine Aminotransferase 21 U/L (14-59); Albumin Globulin Ratio 0.6; Albumin Level 2.3 g/dL (3.4-5.0); Alkaline Phosphatase 157 U/L (46-116); Anion Gap 8.7; Aspartate Amino Transferase 21 U/L (15-37); BUN Creatinine Ratio 13.7; Bilirubin Total 0.7 mg/dL (0.2-1.0); Calcium 8.6 mg/dL (8.5-10.1); Chloride 99 mmol/L (98-107); Estimated GFR (African America 57 (>=60); Estimated GFR (Non-African Ame 47 (>=60); Globulin 3.9 g/dL; Glucose 208 mg/dL (74-106); Potassium 3.7 mmol/L (3.5-5.1); Sodium 134 mmol/L (136-145); Total Protein 6.2 g/dL (6.4-8.2)
--- NOTE | 2023-12-24 08:11 | P.PN_ITS ---
Progress Note: Subjective Subjective Interval history: Patient sitting up in chair, she says she hasn't slept the best. She was concerned because Hospice contacted her. She reports that she does not want hospice. She would like to go to rehab. She says her left lower ext is sore, breathing is improved but still difficult at times. No fevers or chills. Exam Narrative Exam Narrative: General: Patient is alert, and oriented to person, place and time with normal affect, proper hygiene, morbid obesity Skin: Bruising noted around right eye and nasal bridge Head: atraumatic, acephalic Mouth/Throat: no erythema, exudate, or tonsillar enlargement, normal dentition Neck: no masses palpated, normal thyroid, no JVD or audible carotid bruits Heart: Normal rate and rhythm, no murmurs/rubs/gallops;Wound From surgical scar is well-healed with no signs of infection on chest Lungs: audible wheezes and crackles and diminished breath sounds all lung melissa Abdomen: Normal audible bowel sounds, no distension, No palpable masses, no organomegaly, no rebound/guarding/ or rigidity, large pannus with significant central obesity Musculoskeletal: swelling bilateral lower extremities; Right LE - chronic scabs/discoloration/dermatitis. Right RLE - Old laceration with stitches. Pain/tenderness/skin induration from ankle to just below knee. Neuro: CN II-X grossly intact Constitutional Vital Signs, click to edit/add: Last Vital Signs Temp 98 F 12/24/23 08:09 Pulse 97 H 12/24/23 08:09 Resp 20 12/24/23 08:09 BP 137/61 12/24/23 08:09 Pulse Ox 93 L 12/24/23 08:09 O2 Del Method Vapotherm 12/24/23 08:09 O2 Flow Rate 40 12/24/23 06:25 FiO2 40 12/24/23 06:25 Progress Note: Objective Labs Labs: Short CBC 12/24/23 Range/Units 05:49 WBC 7.3 (4.0-11.0) 10^3/uL Hgb 8.4 L (12.0-16.0) g/dL Hct 27.4 L (36.0-48.0) % Plt Count 283 (150-450) 10^3/uL BMP 12/24/23 05:49 Sodium 134 L Potassium 3.7 Chloride 99 Carbon Dioxide 30.0 BUN 16.0 Creatinine 1.17 H Glucose 208 H Calcium 8.6 Liver Function 12/24/23 Range/Units 05:49 Total Bilirubin 0.7 (0.2-1.0) mg/dL AST 21 (15-37) U/L ALT 21 (14-59) U/L Alkaline Phosphatase 157 H (46-116) U/L Albumin 2.3 L (3.4-5.0) g/dL Progress Note: A&P Assessment and Plan (1) Acute and chronic respiratory failure with hypercapnia: Assessment and Plan: Acute on chronic respiratory failure with hypercapnia. Refusing to use BiPAP. On high flow oxygen with improvement. Baseline is 3L NC. (2) Cellulitis of left leg: Assessment and Plan: Continue Zosyn and Vancomycin (3) Hypoglycemia: Assessment and Plan: resolved. Stop Dextrose. monitor sugars. (4) Multiple rib fractures: Assessment and Plan: continue pain control as needed. Qualifiers: Encounter type: subsequent encounter Fracture healing: with routine healing Fracture type: closed Laterality: right Qualified Code(s): S22.41XD - Multiple fractures of ribs, right side, subsequent encounter for fracture with routine healing (5) Laceration of left leg: Assessment and Plan: dressing was C/D/I Qualifiers: Encounter type: subsequent encounter Qualified Code(s): S81.812D - Laceration without foreign body, left lower leg, subsequent encounter (6) Accidental fall from chair: Assessment and Plan: Now that patients cognitive status has improved, will get PT/OT evaluations and would benefit from rehab Qualifiers: Encounter type: subsequent encounter Qualified Code(s): W07.XXXD - Fall from chair, subsequent encounter (7) Diabetes: Assessment and Plan: SSI as needed. Qualifiers: Diabetes mellitus complication detail: with polyneuropathy Diabetes mellitus complication status: with neurologic complications Diabetes mellitus skilled nursing insulin use: with termite control servicer use Diabetes mellitus type: type 2 Qualified Code(s): E11.42 - Type 2 diabetes mellitus with diabetic polyneuropathy; Z79.4 - meterman (current) use of insulin (8) High cholesterol: Assessment and Plan: continue statin (9) Bipolar 1 disorder, depressed, severe: Assessment and Plan: continue home meds (10) Sleep apnea: Assessment and Plan: non compliant Qualifiers: Sleep apnea type: obstructive Qualified Code(s): G47.33 - Obstructive sleep apnea (adult) (pediatric) (11) COPD (chronic obstructive pulmonary disease): Qualifiers: COPD type: unspecified COPD Qualified Code(s): J44.9 - Chronic obstructive pulmonary disease, unspecified (12) H/O thoracic aortic aneurysm repair: (13) Morbid obesity: (14) Ambulatory dysfunction: Plan New evaluation by PT and OT, expected a few more days of hospital necessary care to improve respiratory status and cellulitis. Patient will benefit from rehab.
[2023-12-24] MEDS: FLUTICASONE PROPIONATE 50 MCG NASAL SPRAY 1 SPRAY NS ×2 (08:28→21:46)
[2023-12-24] MEDS: ENOXAPARIN SODIUM 60 MG/0.6 ML SYRINGE SUBQ ×2 (08:28→21:46)
[2023-12-24] MEDS: FAMOTIDINE 20 MG TABLET PO ×2 (08:28→21:47)
[2023-12-24] MEDS: ATORVASTATIN CALCIUM 40 MG TABLET PO (08:28)
[2023-12-24] MEDS: VENLAFAXINE HCL ER 150 MG CAPSULE PO (08:29)
[2023-12-24] MEDS: TOPIRAMATE 100 MG TABLET 200 MG PO ×2 (08:29→21:47)
[2023-12-24] MEDS: SOLIFENACIN SUCCINATE 10 MG TABLET PO (08:29)
[2023-12-24] MEDS: LAMOTRIGINE 100 MG TABLET PO ×2 (08:29→21:47)
[2023-12-24] MEDS: MONTELUKAST SODIUM 10 MG TABLET PO (08:29)
--- NOTE | 2023-12-24 09:18 | PT.DAILY ---
Physical Therapy Daily Note PT Daily Note/Assess Start: 12/23/23 09:44 Freq: Status: Active Protocol: Document 12/24/23 09:08 JERZY (Rec: 12/24/23 09:18 JERZY [id number]) Visit Not Completed Visit Not Completed Visit Not Completed Due to: Pt level of alertness Other Reason Visit Not Completed Pt sitting in BS chair chair with eyes closed upon arrival. Pt is easily aroused but then immediately closes eyes again . Pt asked if she was willing to attempt ther ex or standing with PT this morning. She keeps eyes closed and shakes her head. She then opens eyes a few seconds later and says I'm just tired and cont to close eyes. Pt unable to hold conversation at this time. Pt does have a hospice consult today. Will follow up Tuesday if pt is still at our facility . Physical Therapy Daily Note/Assessment Time In/Time Out Time In 09:05 Time Out 09:10 GG. Functional Abilities and Goals-Complete for Swing Bed Patients Only [id number]. Self-Care [id number]. Mobility
[2023-12-24] MEDS: BUDESONIDE 0.5 MG/2 ML AMPULE NEB IH ×2 (10:45→22:43)
[2023-12-24 10:57] LABS: Glucometer 255 mg/dL (74-106)
[2023-12-24] MEDS: 0.9 % SODIUM CHLORIDE 250 ML 10 ML IV (11:47)
[2023-12-24] MEDS: VANCOMYCIN HCL 2,000 MG in 0.9 % SODIUM CHLORIDE 500 ML 200 MG IV (11:50)
[2023-12-24] MEDS: ACETAMINOPHEN 325 MG TABLET 650 MG PO (11:53)
[2023-12-24] MEDS: GABAPENTIN 300 MG CAPSULE PO ×2 (13:34→21:47)
[2023-12-24 16:52] LABS: Glucometer 218 mg/dL (74-106)
--- NOTE | 2023-12-24 20:04 | RESP.RT ---
Patient states this is normal for her
[2023-12-24 20:08] LABS: Glucometer 270 mg/dL (74-106)
[2023-12-24] MEDS: INSULIN ASPART 300 UNIT/3 ML PEN SUBQ (21:46)
--- NOTE | 2023-12-24 23:04 | RESP.RT ---
Patient states this is her normal breathing
--- NOTE | 2023-12-24 23:05 | RESP.RT ---
Titrated to 4 lpm
--- NOTE | 2023-12-24 23:06 | RESP.RT ---
Titrated to 4 lpm
--- NOTE | 2023-12-24 23:06 | RESP.RT ---
Titrated to 4 LPM
[2023-12-25] VITALS (8 sets, daily range): BP systolic 138–164; BP diastolic 69–80; PULSE 90–101; TEMP 36.8–37.4; O2SAT 83–95
[2023-12-25] MEDS: GABAPENTIN 300 MG CAPSULE PO ×2 (05:18→21:47)
[2023-12-25] MEDS: PIPERACILLIN SODIUM/TAZOBACTAM 3.375 GM in 0.9 % SODIUM CHLORIDE 50 ML IV ×3 (05:18→21:46)
[2023-12-25] MEDS: IPRATROPIUM/ALBUTEROL SULFATE 3 ML AMPUL.NEB IH ×4 (05:34→23:22)
[2023-12-25 06:20] LABS: Basophils Absolute Auto 0.1 10^3/uL (0.0-0.1); Basophils Percent Auto 0.7 % (0.2-2.0); Eosinophils Absolute Auto 0.4 10^3/uL (0.0-0.7); Eosinophils Percent Auto 5.1 % (0.9-7.0); Hematocrit 30.2 % (36.0-48.0); Hemoglobin 9.3 g/dL (12.0-16.0); Immature Granulocytes Abs Auto 0.02 10^3/uL (0.00-0.03); Immature Granulocytes Pct Auto 0.2 % (0.0-0.5); Lymphocytes Percent Auto 11.7 % (20.5-60.0); Mean Corpuscular HGB Conc 30.8 g/dL (29.9-35.2); Mean Corpuscular Hemoglobin 31.2 pg (26.7-34.0); Mean Corpuscular Volume 101.3 fL (81.0-99.0); Mean Platelet Volume 8.2 fL (9.5-13.5); Monocytes Absolute Auto 1.1 10^3/uL (0.3-0.8); Monocytes Percent Auto 12.4 % (1.7-12.0); Neutrophils Percent Auto 69.9 % (43.0-75.0); Platelet Count 309 10^3/uL (150-450); Red Blood Count 2.98 10^6/uL (4.20-5.40); Red Cell Distribution Width 15.2 % (11.0-15.0); White Blood Count 8.6 10^3/uL (4.0-11.0)
[2023-12-25 06:38] LABS: Alanine Aminotransferase 23 U/L (14-59); Albumin Globulin Ratio 0.6; Albumin Level 2.5 g/dL (3.4-5.0); Alkaline Phosphatase 155 U/L (46-116); Anion Gap 12.5; Aspartate Amino Transferase 21 U/L (15-37); BUN Creatinine Ratio 12.2; Bilirubin Total 0.7 mg/dL (0.2-1.0); Calcium 8.7 mg/dL (8.5-10.1); Carbon Dioxide 29.1 mmol/L (21.0-32.0); Chloride 100 mmol/L (98-107); Estimated GFR (African America 43 (>=60); Estimated GFR (Non-African Ame 36 (>=60); Globulin 4.2 g/dL; Glucose 161 mg/dL (74-106); Potassium 3.6 mmol/L (3.5-5.1); Sodium 138 mmol/L (136-145); Total Protein 6.7 g/dL (6.4-8.2)
--- NOTE | 2023-12-25 06:44 | RESP.RT ---
Patient states she normally breathes like that
--- NOTE | 2023-12-25 07:59 | P.PN_ITS ---
Progress Note: Subjective Subjective Interval history: Patient sitting up in chair, she says she didn't sleep last night. Breathing is improved but still difficult at times. No fevers or chills. Exam Narrative Exam Narrative: General: Patient is alert, and oriented to person, place and time with normal affect, proper hygiene, morbid obesity Skin: Bruising noted around right eye and nasal bridge Head: atraumatic, acephalic Mouth/Throat: no erythema, exudate, or tonsillar enlargement, normal dentition Neck: no masses palpated, normal thyroid, no JVD or audible carotid bruits Heart: Normal rate and rhythm, no murmurs/rubs/gallops;Wound From surgical scar is well-healed with no signs of infection on chest Lungs: audible wheezes and crackles and diminished breath sounds all lung melissa Abdomen: Normal audible bowel sounds, no distension, No palpable masses, no organomegaly, no rebound/guarding/ or rigidity, large pannus with significant central obesity Musculoskeletal: swelling bilateral lower extremities; Right LE - chronic scabs/discoloration/dermatitis. Left LE - Old laceration open wounds. Pain/tenderness/skin induration from ankle to just below knee. dressing is c/d/i Neuro: CN II-X grossly intact Constitutional Vital Signs, click to edit/add: Last Vital Signs Temp 98.4 F 12/25/23 05:26 Pulse 96 H 12/25/23 05:26 Resp 18 12/25/23 05:26 BP 164/73 H 12/25/23 05:26 Pulse Ox 91 L 12/25/23 05:26 O2 Del Method Nasal Cannula 12/25/23 05:26 O2 Flow Rate 4 12/25/23 05:26 FiO2 40 12/24/23 10:50 Progress Note: Objective Labs Labs: Short CBC 12/25/23 Range/Units 05:41 WBC 8.6 (4.0-11.0) 10^3/uL Hgb 9.3 L (12.0-16.0) g/dL Hct 30.2 L (36.0-48.0) % Plt Count 309 (150-450) 10^3/uL BMP 12/25/23 05:41 Sodium 138 Potassium 3.6 Chloride 100 Carbon Dioxide 29.1 BUN 18.0 Creatinine 1.47 H Glucose 161 H Calcium 8.7 Liver Function 12/25/23 Range/Units 05:41 Total Bilirubin 0.7 (0.2-1.0) mg/dL AST 21 (15-37) U/L ALT 23 (14-59) U/L Alkaline Phosphatase 155 H (46-116) U/L Albumin 2.5 L (3.4-5.0) g/dL Progress Note: A&P Assessment and Plan (1) Acute and chronic respiratory failure with hypercapnia: Assessment and Plan: Refusing to use BiPAP. On high flow oxygen with improvement. Baseline is 3L NC. continue nebulizers as needed. I think her pain from rib fractures also limits full inspiration. Opep therapy (2) Cellulitis of left leg: Assessment and Plan: Continue Zosyn and Vancomycin; wound consult documented in chart (3) Hypoglycemia: Assessment and Plan: resolved, stopped Mounjaro (4) Multiple rib fractures: Assessment and Plan: continue pain control as needed. Qualifiers: Encounter type: subsequent encounter Fracture healing: with routine healing Fracture type: closed Laterality: right Qualified Code(s): S22.41XD - Multiple fractures of ribs, right side, subsequent encounter for fracture with routine healing (5) Laceration of left leg: Assessment and Plan: wound consult, vanc and zosyn Qualifiers: Encounter type: subsequent encounter Qualified Code(s): S81.812D - Laceration without foreign body, left lower leg, subsequent encounter (6) Accidental fall from chair: Assessment and Plan: Now that patients cognitive status has improved, will get PT/OT evaluations and would benefit from rehab Qualifiers: Encounter type: subsequent encounter Qualified Code(s): W07.XXXD - Fall from chair, subsequent encounter (7) Diabetes: Assessment and Plan: SSI as needed. Qualifiers: Diabetes mellitus complication detail: with polyneuropathy Diabetes mellitus complication status: with neurologic complications Diabetes mellitus buttermaker helper insulin use: with buttermaker helper use Diabetes mellitus type: type 2 Qualified Code(s): E11.42 - Type 2 diabetes mellitus with diabetic polyneuropathy; Z79.4 - residential (current) use of insulin (8) High cholesterol: Assessment and Plan: continue statin (9) Bipolar 1 disorder, depressed, severe: Assessment and Plan: continue home meds (10) Sleep apnea: Assessment and Plan: non compliant with device Qualifiers: Sleep apnea type: obstructive Qualified Code(s): G47.33 - Obstructive sleep apnea (adult) (pediatric) (11) COPD (chronic obstructive pulmonary disease): Qualifiers: COPD type: unspecified COPD Qualified Code(s): J44.9 - Chronic obstructive pulmonary disease, unspecified (12) H/O thoracic aortic aneurysm repair: (13) Morbid obesity: (14) Ambulatory dysfunction: Plan New evaluation by PT and OT tomorrow, expected a few more days of hospital necessary care to improve respiratory status and cellulitis. Patient will benefit from rehab.
[2023-12-25] MEDS: ENOXAPARIN SODIUM 60 MG/0.6 ML SYRINGE SUBQ ×2 (09:01→21:47)
[2023-12-25] MEDS: FAMOTIDINE 20 MG TABLET PO ×2 (09:02→21:47)
[2023-12-25] MEDS: ATORVASTATIN CALCIUM 40 MG TABLET PO (09:02)
[2023-12-25] MEDS: LAMOTRIGINE 100 MG TABLET PO ×2 (09:02→21:47)
[2023-12-25] MEDS: TOPIRAMATE 100 MG TABLET 200 MG PO ×2 (09:02→21:47)
[2023-12-25] MEDS: VENLAFAXINE HCL ER 150 MG CAPSULE PO (09:02)
[2023-12-25] MEDS: MONTELUKAST SODIUM 10 MG TABLET PO (09:02)
[2023-12-25] MEDS: FLUTICASONE PROPIONATE 50 MCG NASAL SPRAY 1 SPRAY NS ×2 (09:02→21:46)
[2023-12-25] MEDS: SOLIFENACIN SUCCINATE 10 MG TABLET PO (09:02)
[2023-12-25] MEDS: BUDESONIDE 0.5 MG/2 ML AMPULE NEB IH ×2 (10:48→23:23)
[2023-12-25] MEDS: 0.9 % SODIUM CHLORIDE 250 ML 10 ML IV (12:05)
[2023-12-25] MEDS: VANCOMYCIN HCL 2,000 MG in 0.9 % SODIUM CHLORIDE 500 ML 250 MG IV (12:05)
[2023-12-25 16:14] LABS: Glucometer 230 mg/dL (74-106)
[2023-12-25] MEDS: INSULIN ASPART 300 UNIT/3 ML PEN SUBQ ×2 (17:33→21:46)
[2023-12-25] MEDS: ALPRAZOLAM 0.5 MG TABLET PO (21:47)
[2023-12-25 21:57] LABS: Glucometer 270 mg/dL (74-106)
[2023-12-26 05:08] VITALS: PULSE 100; O2SAT 96
[2023-12-26] MEDS: IPRATROPIUM/ALBUTEROL SULFATE 3 ML AMPUL.NEB IH ×2 (05:08→10:32)
[2023-12-26] MEDS: PIPERACILLIN SODIUM/TAZOBACTAM 3.375 GM in 0.9 % SODIUM CHLORIDE 50 ML IV (05:10)
[2023-12-26] MEDS: GABAPENTIN 300 MG CAPSULE PO (05:10)
[2023-12-26 05:15] VITALS: BP 150/51; PULSE 102; TEMP 37.1; O2SAT 93
[2023-12-26 06:14] LABS: Basophils Absolute Auto 0.1 10^3/uL (0.0-0.1); Basophils Percent Auto 0.8 % (0.2-2.0); Eosinophils Absolute Auto 0.4 10^3/uL (0.0-0.7); Eosinophils Percent Auto 4.4 % (0.9-7.0); Hematocrit 28.6 % (36.0-48.0); Hemoglobin 8.7 g/dL (12.0-16.0); Immature Granulocytes Abs Auto 0.04 10^3/uL (0.00-0.03); Immature Granulocytes Pct Auto 0.4 % (0.0-0.5); Lymphocytes Absolute Auto 1.5 10^3/uL (1.2-3.8); Lymphocytes Percent Auto 15.8 % (20.5-60.0); Mean Corpuscular HGB Conc 30.4 g/dL (29.9-35.2); Mean Corpuscular Hemoglobin 30.9 pg (26.7-34.0); Mean Corpuscular Volume 101.4 fL (81.0-99.0); Monocytes Absolute Auto 1.3 10^3/uL (0.3-0.8); Monocytes Percent Auto 13.2 % (1.7-12.0); Neutrophils Absolute Auto 6.3 10^3/uL (1.4-6.5); Neutrophils Percent Auto 65.4 % (43.0-75.0); Platelet Count 301 10^3/uL (150-450); Red Blood Count 2.82 10^6/uL (4.20-5.40); Red Cell Distribution Width 15.1 % (11.0-15.0); White Blood Count 9.7 10^3/uL (4.0-11.0)
[2023-12-26 06:47] LABS: Alanine Aminotransferase 22 U/L (14-59); Albumin Globulin Ratio 0.6; Albumin Level 2.4 g/dL (3.4-5.0); Alkaline Phosphatase 141 U/L (46-116); Aspartate Amino Transferase 16 U/L (15-37); BUN Creatinine Ratio 12.3; Bilirubin Total 0.8 mg/dL (0.2-1.0); Chloride 100 mmol/L (98-107); Estimated GFR (African America 33 (>=60); Estimated GFR (Non-African Ame 27 (>=60); Globulin 4.3 g/dL; Glucose 154 mg/dL (74-106); Potassium 3.7 mmol/L (3.5-5.1); Sodium 137 mmol/L (136-145); Total Protein 6.7 g/dL (6.4-8.2)
[2023-12-26 06:53] LABS: Anion Gap 12.9; Carbon Dioxide 27.8 mmol/L (21.0-32.0)
[2023-12-26 07:28] LABS: Glucometer 249 mg/dL (74-106)
--- NOTE | 2023-12-26 07:58 | P.PN_ITS ---
Progress Note: Subjective Subjective Interval history: Patient sitting up in chair eating her breakfast. She denies any issues or complaints. Patient back to baseline oxygen of 3L NC. Exam Narrative Exam Narrative: General: Patient is alert, and oriented to person, place and time with normal affect, proper hygiene, morbid obesity Skin: Bruising noted around right eye and nasal bridge Head: atraumatic, acephalic Heart: Normal rate and rhythm, no murmurs/rubs/gallops;Wound From surgical scar is well-healed with no signs of infection on chest; removed the dressing and the re was 3 small holes with packing, that was removed, the middle hole was the deepest requiring about 1 inch of packing removed, other 2 had little packing. Lungs: diminished breath sounds all lung melissa Abdomen: Normal audible bowel sounds, no distension, No palpable masses, no organomegaly, no rebound/guarding/ or rigidity, large pannus with significant central obesity Musculoskeletal: swelling bilateral lower extremities; Right LE - chronic scabs/discoloration/dermatitis. Left LE - Old laceration open wounds per wound consult. Pain/tenderness/skin induration from ankle to just below knee. dressing is c/d/i Neuro: CN II-X grossly intact Constitutional Vital Signs, click to edit/add: Last Vital Signs Temp 98.7 F 12/26/23 05:15 Pulse 102 H 12/26/23 05:15 Resp 18 12/26/23 05:15 BP 150/51 H 12/26/23 05:15 Pulse Ox 93 L 12/26/23 05:15 O2 Del Method Nasal Cannula 12/26/23 05:15 O2 Flow Rate 3 12/26/23 05:15 FiO2 40 12/24/23 10:50 Progress Note: Objective Labs Labs: Short CBC 12/26/23 Range/Units 05:35 WBC 9.7 (4.0-11.0) 10^3/uL Hgb 8.7 L (12.0-16.0) g/dL Hct 28.6 L (36.0-48.0) % Plt Count 301 (150-450) 10^3/uL BMP 12/26/23 05:35 Sodium 137 Potassium 3.7 Chloride 100 Carbon Dioxide 27.8 BUN 23.0 H Creatinine 1.87 H Glucose 154 H Calcium 9.0 Liver Function 12/26/23 Range/Units 05:35 Total Bilirubin 0.8 (0.2-1.0) mg/dL AST 16 (15-37) U/L ALT 22 (14-59) U/L Alkaline Phosphatase 141 H (46-116) U/L Albumin 2.4 L (3.4-5.0) g/dL Progress Note: A&P Assessment and Plan (1) Acute and chronic respiratory failure with hypercapnia: Assessment and Plan: Baseline is 3L NC. continue nebulizers as needed. I think her pain from rib fractures also limits full inspiration. Opep therapy (2) Cellulitis of left leg: Assessment and Plan: Continue Zosyn and Vancomycin; wound consult documented in chart, continue with daily dressing changes (3) Multiple rib fractures: Assessment and Plan: continue pain control as needed. OPEP therapy Qualifiers: Encounter type: subsequent encounter Fracture healing: with routine healing Fracture type: closed Laterality: right Qualified Code(s): S22.41XD - Multiple fractures of ribs, right side, subsequent encounter for fracture with routine healing (4) Laceration of left leg: Assessment and Plan: old, healing causing #2 Qualifiers: Encounter type: subsequent encounter Qualified Code(s): S81.812D - Laceration without foreign body, left lower leg, subsequent encounter (5) Accidental fall from chair: Assessment and Plan: working with PT/OT, would benefit from rehab Qualifiers: Encounter type: subsequent encounter Qualified Code(s): W07.XXXD - Fall from chair, subsequent encounter (6) Diabetes: Assessment and Plan: continue SSI, hypoglycemia resolved with stopping Mounjaro Qualifiers: Diabetes mellitus complication detail: with polyneuropathy Diabetes mellitus complication status: with neurologic complications Diabetes mellitus detention insulin use: with terminal operator use Diabetes mellitus type: type 2 Qualified Code(s): E11.42 - Type 2 diabetes mellitus with diabetic polyneuropathy; Z79.4 - intermodal dispatcher (current) use of insulin (7) High cholesterol: Assessment and Plan: continue statin (8) Bipolar 1 disorder, depressed, severe: Assessment and Plan: continue home meds (9) Sleep apnea: Assessment and Plan: non-compliant with device Qualifiers: Sleep apnea type: obstructive Qualified Code(s): G47.33 - Obstructive sleep apnea (adult) (pediatric) (10) COPD (chronic obstructive pulmonary disease): Qualifiers: COPD type: unspecified COPD Qualified Code(s): J44.9 - Chronic obstructive pulmonary disease, unspecified (11) H/O thoracic aortic aneurysm repair: Assessment and Plan: removed dressing, 3 open wounds with deepest being center that will need packing, No surrounding erythema or drainage, no purulence. I have called the wound nurse for her to exam this and recommend packing/dressing changes. (12) Morbid obesity: Assessment and Plan: would benefit from outpatient weight loss (13) Ambulatory dysfunction: Plan continue lovenox for dvt prophylaxis patient is a DNRCC Hopeful discharge to rehab facility
[2023-12-26 08:34] VITALS: BP 128/65; PULSE 99; TEMP 37.1; O2SAT 92
[2023-12-26] MEDS: SOLIFENACIN SUCCINATE 10 MG TABLET PO (09:08)
[2023-12-26] MEDS: FAMOTIDINE 20 MG TABLET PO (09:08)
[2023-12-26] MEDS: LAMOTRIGINE 100 MG TABLET PO (09:08)
[2023-12-26] MEDS: ENOXAPARIN SODIUM 60 MG/0.6 ML SYRINGE SUBQ (09:08)
[2023-12-26] MEDS: FLUTICASONE PROPIONATE 50 MCG NASAL SPRAY 1 SPRAY NS (09:08)
[2023-12-26] MEDS: ATORVASTATIN CALCIUM 40 MG TABLET PO (09:08)
[2023-12-26] MEDS: VENLAFAXINE HCL ER 150 MG CAPSULE PO (09:08)
[2023-12-26] MEDS: MONTELUKAST SODIUM 10 MG TABLET PO (09:08)
[2023-12-26] MEDS: INSULIN ASPART 300 UNIT/3 ML PEN SUBQ ×2 (09:08→11:23)
[2023-12-26] MEDS: TOPIRAMATE 100 MG TABLET 200 MG PO (09:08)
--- NOTE | 2023-12-26 09:37 | SWNOTE1 ---
Pt is doing much better medically and she has voiced she does not want hospice and she would like to go to rehab. ONEIDA reaching out to [facility] to see if precert is good thru today or if it will need to be started over. ONEIDA reached out to Louis at [facility] and she would like clinical updates and will check in to precert. ONEIDA faxed over progress notes, vitals, labs, nursing notes, med list, and Pt from Tuesday.
--- NOTE | 2023-12-26 09:39 | CM.NOTE ---
Rounds made with Dr. Amaya. Gavin in chair upon arrival-Dr. Amaya reviews plan of care. Sternal wound undressed and packing removed from 3 small areas in incision. Dressing completed with 4x4. Wound to be reconsulted for any further recommendations. Gavin in agreement.
--- NOTE | 2023-12-26 10:14 | SWNOTE1 ---
[facility] can accept and precert is still good thru today. SW notified nursing and doctor. SW completed HENS.
--- NOTE | 2023-12-26 10:22 | SWNOTE1 ---
SW did receive a call from [facility] services and pt does have home delivered meals coming in, and they were working on getting an aide in to the home as well. ONEIDA advised [facility] case checker that pt is going to [facility] for rehab. She voiced she will follow up with her at [facility].
--- NOTE | 2023-12-26 10:28 | REH.PTDLY ---
Physical Therapy Daily Note PT Daily Note/Assess Start: 12/23/23 09:44 Freq: Status: Active Protocol: Document 12/26/23 10:22 ESTHELA (Rec: 12/26/23 10:28 ESTHELA [id number]) Physical Therapy Daily Note/Assessment Time In 10:08 Time Out 10:22 Subjective Pt being DC today to go to [facility] rehab per nursing. Pt is up in chair upon arrival, sliding forward. States she in uncomfortable. Therapeutic Exercise Minutes (minutes) 7 Therapeutic Exercise Units 1 Therapeutic Exercise Treatment Instructed pt in B LE seated exs 10x ea with LAQ, marching, hip abd kicks, and HR. Several cues needed to keep pt on task as she tends to close her eyes. Cues and encouragement given for larger ROM to be performed by pt. Therapeutic Activity Minutes (minutes) 3 Therapeutic Activity Units 0 Chair Transfer Ability Maximum Assist,2 Person Assist Therapeutic Activity Comments Verbal and tactile cues for pt to scoot back in chair, pt is unable to do so with 1 assist . Nursing enters room and pt requires Max Ax2 to stand. Cues for pt to take a step back and returns to sitting in chair. Total Therapy Minutes 10 Total Physical Therapy Units 1 Daily Note Summary Pt requires Max Ax2 with transfer today. Exs for improved mobility and strength , but pt lethargic during rx. Several cues given throughout for pt to participate. Pt will need skilled rehab for strength and mobility, supposed to be DC today to rehab.
[2023-12-26 10:32] VITALS: PULSE 94; O2SAT 96
[2023-12-26] MEDS: BUDESONIDE 0.5 MG/2 ML AMPULE NEB IH (10:32)
--- NOTE | 2023-12-26 10:38 | SWNOTE1 ---
SW set up trips for transport and they will be here around 11:30-12:00 to take pt to [facility] for rehab. SW notified doctor, nursing, pt, and pt's sister.
--- NOTE | 2023-12-26 10:53 | P.DS_ITS ---
DS: Providers Provider Date of admission: 12/22/23 09:31 Primary care physician: SARA VALENTINO Attending physician on admission: Shaikh Giovany Consults: 12/22/23 Consult to Mine Engineering Superintendent Routine Reason for consult:: Housing/Usp 12/22/23 10:08 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 Therapy Eval and Treat Routine Reason for consultation: Ambulatory dysfunction/weakness Physical Therapy Eval and Treat Routine Reason for consultation: Ambulatory dysfunction/weakness 12/22/23 10:10 Consult to Wound Care Routine Consulting Provider: Good Krueger Reason for consultation: LE wound 12/25/23 07:58 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 Therapy Eval and Treat Routine Reason for consultation: weakness with ambulation Has provider been notified: No Physical Therapy Eval and Treat Routine Reason for consultation: weakness with ambulation Has provider been notified: No Discharging clinician: Linnea Amaya DS: Diagnosis Discharge Diagnosis (1) Acute and chronic respiratory failure with hypercapnia: (2) Cellulitis of left leg: (3) Multiple rib fractures: Qualifiers: Encounter type: subsequent encounter Fracture healing: with routine healing Fracture type: closed Laterality: right Qualified Code(s): S22.41XD - Multiple fractures of ribs, right side, subsequent encounter for fracture with routine healing (4) Laceration of left leg: Qualifiers: Encounter type: subsequent encounter Qualified Code(s): S81.812D - Laceration without foreign body, left lower leg, subsequent encounter (5) Accidental fall from chair: Qualifiers: Encounter type: subsequent encounter Qualified Code(s): W07.XXXD - Fall from chair, subsequent encounter (6) Diabetes: Qualifiers: Diabetes mellitus type: type 2 Diabetes mellitus correction insulin use: with correction use Diabetes mellitus complication status: with neurologic complications Diabetes mellitus complication detail: with polyneuropathy Qualified Code(s): E11.42 - Type 2 diabetes mellitus with diabetic polyneuropathy; Z79.4 - intermediate (current) use of insulin (7) High cholesterol: (8) Bipolar 1 disorder, depressed, severe: (9) Sleep apnea: Qualifiers: Sleep apnea type: obstructive Qualified Code(s): G47.33 - Obstructive sleep apnea (adult) (pediatric) (10) COPD (chronic obstructive pulmonary disease): Qualifiers: COPD type: unspecified COPD Qualified Code(s): J44.9 - Chronic obstructive pulmonary disease, unspecified (11) H/O thoracic aortic aneurysm repair: (12) Morbid obesity: (13) Ambulatory dysfunction: DS: Summary Hospital Course Hospital Course: Please see progress note dated 12/26/23. Patient was accepted at [facility]. She will be discharged on Keflex 500mg BID x 10 days for her Cellulitis. Sliding scale insulin for now. Instructions on med list. will use continuous 3L NC oxygen. Status at Discharge Functional status at discharge: wheelchair bound Time Spent with Patient Time attestation: Total time spent providing and/or coordinating discharge services: Time spent: greater than 30 minutes Exam Narrative Exam Narrative: see progress Note dated 12/26/23 no change in exam on discharge. Constitutional Vital Signs, click to edit/add: Last Vital Signs Temp 98.7 F 12/26/23 08:34 Pulse 94 H 12/26/23 10:32 Resp 18 12/26/23 08:36 BP 128/65 12/26/23 08:34 Pulse Ox 96 12/26/23 10:32 O2 Del Method Nasal Cannula 12/26/23 10:32 O2 Flow Rate 3 12/26/23 10:32 FiO2 40 12/24/23 10:50 DS: Data Data Completed and Pending Labs on day of discharge: Labs from last 24 hours 12/26/23 12/26/23 12/25/23 07:28 05:35 21:45 WBC 9.7 RBC 2.82 L Hgb 8.7 L Hct 28.6 L MCV 101.4 H MCH 30.9 MCHC 30.4 RDW 15.1 H Plt Count 301 MPV 8.0 L Neut % (Auto) 65.4 Lymph % (Auto) 15.[address] [place] % (Auto) 13.2 H Eos % (Auto) 4.4 Baso % (Auto) 0.8 Neut # (Auto) 6.3 Lymph # (Auto) 1.5 [place] # (Auto) 1.3 H Eos # (Auto) 0.4 Baso # (Auto) 0.1 Abs Immat Gran (auto) 0.04 H Imm/Tot Granulo (auto) 0.4 Sodium 137 Potassium 3.7 Chloride 100 Carbon Dioxide 27.8 Anion Gap 12.9 BUN 23.0 H Creatinine 1.87 H Est GFR ( Amer) 33 L Est GFR (Non-Af Amer) 27 L BUN/Creatinine Ratio 12.3 Glucose 154 H Calcium 9.0 Total Bilirubin 0.8 AST 16 ALT 22 Alkaline Phosphatase 141 H Total Protein 6.7 Albumin 2.4 L Globulin 4.3 Albumin/Globulin Ratio 0.6 POC Glucose 249 H 270 H 12/25/23 16:13 WBC RBC Hgb Hct MCV MCH MCHC RDW Plt Count MPV Neut % (Auto) Lymph % (Auto) [place] % (Auto) Eos % (Auto) Baso % (Auto) Neut # (Auto) Lymph # (Auto) [place] # (Auto) Eos # (Auto) Baso # (Auto) Abs Immat Gran (auto) Imm/Tot Granulo (auto) Sodium Potassium Chloride Carbon Dioxide Anion Gap BUN Creatinine Est GFR ( Amer) Est GFR (Non-Af Amer) BUN/Creatinine Ratio Glucose Calcium Total Bilirubin AST ALT Alkaline Phosphatase Total Protein Albumin Globulin Albumin/Globulin Ratio POC Glucose 230 H Discharge Plan Discharge Disposition: Xfer SNF Condition: Fair Plan of Treatment: sliding scale insulin: BG 141-200 = 3 UNITS 201-250 = 5 UNITS 251-300 = 8 UNITS 301-350 = 12 UNITS 351-400 = 15 UNITS BG GREATER THAN 400 = 15, CALL PHYSICIAN Discharge Medications: New insulin aspart U-100 [Novolog FlexPen U-100 Insulin] 100 unit/mL (3 mL) Insulin Pen 3 - 15 unit subcut ACHS Qty: 15 0RF cephalexin 500 mg capsule 500 mg PO BID 10 Days Qty: 20 0RF Continued dapagliflozin propanediol [Farxiga] 5 mg tablet 5 mg PO .once daily famotidine 20 mg tablet 20 mg PO Q12H fluconazole 150 mg tablet 150 mg PO QWEEK Rx Instructions: ON SUNDAYS fluticasone propion-salmeterol 500-50 mcg/dose blister with device 1 inh INHALATION Q12H fluticasone propionate 50 mcg/actuation spray,suspension 1 spray INTRANASAL Q12H gabapentin 300 mg capsule 300 mg PO TID glipizide 10 mg tablet extended release 24hr 10 mg PO BIDWM lamotrigine 100 mg tablet 100 mg PO Q12H montelukast 10 mg tablet 10 mg PO .once a day rosuvastatin 10 mg tablet 10 mg PO .once daily tolterodine 4 mg capsule,extended release 24hr 4 mg PO .once dailly topiramate 200 mg tablet 200 mg PO BID venlafaxine 150 mg capsule,extended release 24hr 150 mg PO BID Humira(CF) Pen 40 mg/0.4 mL pen injector kit 80 mg SUBCUT Q14D albuterol sulfate 90 mcg/actuation HFA aerosol inhaler 2 puff INHALATION Q4H PRN (Reason: shortness of breath or wheezing) Incruse Ellipta 62.5 mcg/actuation blister with device 1 inh INHALATION Q24H alprazolam 0.5 mg tablet 0.5 mg PO .QHS 1 Days Qty: 1 0RF Discontinued insulin glargine [Lantus Solostar U-100 Insulin] 100 unit/mL (3 mL) insulin pen 65 unit SUBCUT .QHS Mounjaro 10 mg/0.5 mL pen injector 10 mg SUBCUT QWEEK sulfamethoxazole-trimethoprim 800-160 mg tablet 1 tab PO BID Print Language: Mohawk Horser Up/Hydrogen Cell Tender Instructions: Discharge to [facility] nursing and rehab. Forms: Portal Instructions Discharge location: [facility]
--- NOTE | 2023-12-26 11:14 | SWNOTE1 ---
2nd notice of IMM reviewed and discussed with pt, no questions at this time.
[2023-12-26 11:20] LABS: Glucometer 212 mg/dL (74-106)
--- NOTE | 2023-12-26 11:33 | W.PM.WC ---
Wound Consult Note Assessment and Plan (1) Acute and chronic respiratory failure with hypercapnia: (2) Cellulitis of left leg: (3) Multiple rib fractures: Qualifiers: Encounter type: subsequent encounter Fracture healing: with routine healing Fracture type: closed Laterality: right Qualified Code(s): S22.41XD - Multiple fractures of ribs, right side, subsequent encounter for fracture with routine healing (4) Laceration of left leg: Qualifiers: Encounter type: subsequent encounter Qualified Code(s): S81.812D - Laceration without foreign body, left lower leg, subsequent encounter (5) Accidental fall from chair: Qualifiers: Encounter type: subsequent encounter Qualified Code(s): W07.XXXD - Fall from chair, subsequent encounter (6) Diabetes: Qualifiers: Diabetes mellitus type: type 2 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: with buttermilk drier operator use Diabetes mellitus complication status: with neurologic complications Diabetes mellitus complication detail: with polyneuropathy Qualified Code(s): E11.42 - Type 2 diabetes mellitus with diabetic polyneuropathy; Z79.4 - senior care (current) use of insulin (7) High cholesterol: (8) Bipolar 1 disorder, depressed, severe: (9) Sleep apnea: Qualifiers: Sleep apnea type: obstructive Qualified Code(s): G47.33 - Obstructive sleep apnea (adult) (pediatric) (10) COPD (chronic obstructive pulmonary disease): Qualifiers: COPD type: unspecified COPD Qualified Code(s): J44.9 - Chronic obstructive pulmonary disease, unspecified (11) H/O thoracic aortic aneurysm repair: (12) Morbid obesity: (13) Ambulatory dysfunction: Plan Called to see patient to evaluate sternal incision that has open areas. Dr. Amaya left a message with me to see patient prior to discharge today for open areas to her mid-sternal incision. Patient is sleeping in her recliner upon assessment. She is using accessory muscles to breathe but is arousable to her name and is oriented to place and self. Oxygen is in place. She has 3 open areas to her incision. Unable to visualize wound bed to proximal and mid incision to due small opening and depth. Distal opening has red wound base. Areas measure: Proximal: 0.1cmx0.1cmx0.8cm Mid: 0.1cmx0.1cmx0.7cm Distal: 0.3cmx0.2x0.3cm No odor, minimal drainage and no redness or swelling around incision. She does not react to dressing change so it does not cause increased pain. New dressing applied using a piece of xeroform tucked into depth and covered with 4x4s. Updated bedside nurse that is currently giving report to SNF. Good Krueger RN, CWON
== END 2023-12-26 11:34 | DRG 189 ==
LOC: ER 08:57 → MS 09:39
PROVIDERS: Internal Medicine; Admitting Provider Internal Medicine; Emergency Provider Emergency Medicine; Visit Provider Family Medicine
DX: J96.22 Acute and chronic respiratory failure with hypercapnia (principal); S22.41XA Multiple fractures of ribs, right side, initial encounter for closed fracture; L03.116 Cellulitis of left lower limb; Z68.43 Body mass index [BMI] 50.0-59.9, adult; F31.4 Bipolar disorder, current episode depressed, severe, without psychotic features; E66.2 Morbid (severe) obesity with alveolar hypoventilation; D84.9 Immunodeficiency, unspecified; Z99.3 Dependence on wheelchair; E11.649 Type 2 diabetes mellitus with hypoglycemia without coma; E78.00 Pure hypercholesterolemia, unspecified; J44.9 Chronic obstructive pulmonary disease, unspecified; W05.0XXA Fall from non-moving wheelchair, initial encounter; E11.42 Type 2 diabetes mellitus with diabetic polyneuropathy; R26.89 Other abnormalities of gait and mobility; S81.812A Laceration without foreign body, left lower leg, initial encounter; S81.812D Laceration without foreign body, left lower leg, subsequent encounter; L73.2 Hidradenitis suppurativa; Z66 Do not resuscitate; S02.2XXA Fracture of nasal bones, initial encounter for closed fracture; R41.0 Disorientation, unspecified; Z79.84 Long term (current) use of oral hypoglycemic drugs; Z79.4 Long term (current) use of insulin; Z79.899 Other long term (current) drug therapy; Z98.890 Other specified postprocedural states; Z86.79 Personal history of other diseases of the circulatory system; Z91.199 Patient's noncompliance with other medical treatment and regimen due to unspecified reason; Z99.81 Dependence on supplemental oxygen
CPT/HCPCS: 36415; 36600; 70450; 71260; 72125; 74177; 80053; 80202; 81001; 82550; 82805; 82948; 83036; 83605; 83874; 84484; 85025; 90732; 93005; 94640; 94667; 94668; 94761; 94799; 96365; 96366; 96367; 96368; 96372; 96375; 96376; 97110; 97161; 97165; 97530; 97535; 99285; 99406; G0009; J1650; J2270; J2543; J3370; Q9967